=== PATIENT | male | born 1965 | race Hispanic/Latino ===

== ENCOUNTER 2020-03-18 15:10 | Inpatient (IN) | payer MEDICARE, OTHER ==
--- NOTE | 2020-03-18 18:09 | Event Note ---
ED Screening Note ED Screening Note: left calf pain and edema began two weeks ago began having left foot discoloration a week ago last night foot became cold went to [facility] two days ago "pt states told he has a torn muscle" pt states they did not do an Ultrasound hx of DVT x3 last one was 5 years ago Left foot is cold to touch and blue in coloration This initial assessment/diagnostic orders/clinical plan/treatment(s) is/are subject to change based on patients health status, clinical progression and re- assessment by fellow clinical providers in the ED. Further treatment and workup at subsequent clinical providers discretion. Patient/guardian urged not to elope from the ED as their condition may be serious if not clinically assessed and managed. Initial orders include: I personally wheeled pt to MAIN ED room 3 and gave report to DR. Aguero who took over pt
[2020-03-18] MEDS ORDERED: HEPARIN 10,000 UNITS/10 ML VIAL IV ONE (18:18)
[2020-03-18] MEDS ORDERED: ONDANSETRON 4 MG/2 ML INJ IV ONE (18:22)
[2020-03-18] MEDS ORDERED: HYDROmorphone 1 MG/1 ML INJ IV ONE (18:22)
--- NOTE | 2020-03-18 18:27 | Emergency Department Report ---
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 Patient has had left calf pain and foot swelling x1 week without reported trauma. For the past 2 days patient has had discoloration to his left foot and was seen at [facility]. Patient states he was told he had a sprain of the muscle and was prescribed Lortab and told to apply heat and ice. 1:30pm pain acutely worsened and his left calf and foot began to feel cold and turn blue. Pain is 8/10 in intensity - Related Data Allergies Allergy/AdvReac Type Severity Reaction Status Date / Time No Known Allergies Allergy Unverified 03/18/20 15:17 ED Review of Systems ROS: Stated complaint: LEG PAIN Other details as noted in HPI ED Past Medical Hx - Past Medical History Previous Medical History?: Yes Hx Hypertension: Yes Hx CVA: Yes Hx Diabetes: Yes Additional medical history: C Pap at night - Surgical History Past Surgical History?: Yes Hx Open Heart Surgery: Yes - Social History Smoking Status: Never Smoker Substance Use Type: None ED Physical Exam - General Limitations: No Limitations - Other Other exam information: General: No acute distress Head: Atraumatic Eyes: normal appearance ENT: Moist mucous membranes Neck: Normal appearance, no midline tenderness Chest: Clear to auscultation bilaterally CV: Regular rate and rhythm Abdomen: Soft, normal bowel sounds, nontender, nondistended, no rebound or guarding Extremity: Left leg is cold below the knee down to the foot. Bluish discoloration to distal foot and toes. Decreased sensation to palpation to the lower leg and foot. Left leg exam: Patient unable to palpate or auscultate a DP or PT pulse. Patient has minimal movement of his left second through fifth toes and no movement of his great toe. Patient will not dorsi or plantar flex foot secondary to pain. Right foot great toe amputation warm to touch Neuro: Alert O x 3, no facial asymmetry, speech clear, no gross motor sensory deficit Psych: Appropriate behavior Skin: No rash ED Course Vital Signs 03/18/20 03/18/20 03/18/20 15:18 18:03 18:37 Temperature 99.5 F 99.5 F Pulse Rate 121 H 120 H 110 H Respiratory 20 20 Rate Blood Pressure 128/88 128/88 O2 Sat by Pulse 97 93 Oximetry 03/18/20 03/18/20 03/18/20 18:45 18:54 18:59 Temperature Pulse Rate 108 H 104 H Respiratory 28 H 28 H 28 H Rate Blood Pressure 127/91 O2 Sat by Pulse 97 94 97 Oximetry 03/18/20 03/18/20 03/18/20 19:00 19:11 19:21 Temperature Pulse Rate 104 H 98 H 105 H Respiratory 25 H 21 21 Rate Blood Pressure 115/77 127/91 114/79 O2 Sat by Pulse 94 93 96 Oximetry 03/18/20 03/18/20 03/18/20 20:05 20:11 20:21 Temperature Pulse Rate Respiratory Rate Blood Pressure 114/79 114/79 114/79 O2 Sat by Pulse 99 96 93 Oximetry 03/18/20 03/18/20 03/19/20 20:30 20:40 01:26 Temperature 97.6 F Pulse Rate 114 H 99 H Respiratory 29 H 16 Rate Blood Pressure 122/87 117/84 148/98 O2 Sat by Pulse 94 96 100 Oximetry 03/19/20 03/19/20 03/19/20 01:30 01:35 01:40 Temperature Pulse Rate 100 H 98 H 90 Respiratory 19 20 18 Rate Blood Pressure 150/102 131/101 137/93 O2 Sat by Pulse 98 98 97 Oximetry 03/19/20 03/19/20 03/19/20 01:45 01:50 01:55 Temperature Pulse Rate 93 H 94 H 96 H Respiratory 20 19 19 Rate Blood Pressure 139/96 134/94 137/98 O2 Sat by Pulse 97 98 99 Oximetry 03/19/20 03/19/20 03/19/20 02:10 02:15 02:25 Temperature 98.0 F Pulse Rate 95 H 92 H Respiratory 20 20 16 Rate Blood Pressure 145/98 147/89 O2 Sat by Pulse 100 96 Oximetry 03/19/20 03/19/20 03/19/20 02:40 02:50 03:00 Temperature Pulse Rate 90 109 H Respiratory 16 22 Rate Blood Pressure 150/80 166/139 O2 Sat by Pulse 98 95 94 Oximetry 03/19/20 03/19/20 03/19/20 03:10 03:11 03:15 Temperature 98.4 F Pulse Rate 102 H 96 H Respiratory 19 13 19 Rate Blood Pressure 155/107 166/139 O2 Sat by Pulse 96 96 Oximetry 03/19/20 03/19/20 03/19/20 03:21 03:33 03:40 Temperature Pulse Rate 96 H 97 H 94 H Respiratory 23 26 H Rate Blood Pressure 166/139 166/139 160/101 O2 Sat by Pulse 97 96 Oximetry 03/19/20 03/19/20 03/19/20 03:51 04:00 04:11 Temperature Pulse Rate 91 H 89 96 H Respiratory 25 H 24 15 Rate Blood Pressure 137/97 144/96 144/96 O2 Sat by Pulse 97 95 97 Oximetry 03/19/20 03/19/20 03/19/20 04:21 04:30 04:41 Temperature Pulse Rate 92 H 90 90 Respiratory 16 22 21 Rate Blood Pressure 149/106 138/91 138/91 O2 Sat by Pulse 96 95 96 Oximetry 03/19/20 03/19/20 03/19/20 04:51 05:00 05:11 Temperature Pulse Rate 92 H 92 H 87 Respiratory 20 21 23 Rate Blood Pressure 138/91 140/95 140/95 O2 Sat by Pulse 97 97 96 Oximetry 03/19/20 03/19/20 03/19/20 05:21 05:33 05:41 Temperature Pulse Rate 89 88 90 Respiratory 22 22 21 Rate Blood Pressure 144/93 O2 Sat by Pulse 97 97 98 Oximetry 03/19/20 03/19/20 03/19/20 05:51 06:00 06:11 Temperature Pulse Rate 91 H 87 93 H Respiratory 21 22 22 Rate Blood Pressure 137/90 132/89 132/89 O2 Sat by Pulse 98 98 98 Oximetry 03/19/20 03/19/20 03/19/20 06:21 06:30 06:41 Temperature Pulse Rate 94 H 88 96 H Respiratory 20 22 25 H Rate Blood Pressure 137/98 143/90 143/90 O2 Sat by Pulse 98 98 98 Oximetry 03/19/20 03/19/20 03/19/20 06:51 07:00 07:11 Temperature Pulse Rate 92 H 112 H 105 H Respiratory 20 19 18 Rate Blood Pressure 135/86 157/111 157/111 O2 Sat by Pulse 97 98 98 Oximetry 03/19/20 03/19/20 03/19/20 07:21 07:30 07:41 Temperature Pulse Rate 90 89 96 H Respiratory 19 19 16 Rate Blood Pressure 131/88 123/82 123/82 O2 Sat by Pulse 97 98 98 Oximetry 03/19/20 03/19/20 03/19/20 07:51 08:00 08:11 Temperature 98.1 F Pulse Rate 92 H 91 H 96 H Respiratory 20 18 20 Rate Blood Pressure 125/86 122/80 122/80 O2 Sat by Pulse 98 98 98 Oximetry 03/19/20 03/19/20 03/19/20 08:21 08:30 08:34 Temperature Pulse Rate 98 H 99 H Respiratory 15 22 Rate Blood Pressure 137/86 135/93 O2 Sat by Pulse 98 98 98 Oximetry 03/19/20 03/19/20 08:41 08:51 Temperature Pulse Rate 107 H 96 H Respiratory 22 22 Rate Blood Pressure 135/93 138/98 O2 Sat by Pulse 99 99 Oximetry - Consultations Consultation #1: 03/18/20 18:35 case discussed emergently with Dr Foster, Request arterial doppler of leg and heparin drip, I called US tech and he is only credentialed to perform venous studies and is unable to perform arterial Dopplers. Patient will need a CT angiogram. Dr. Foster prefers to wait for creatinine result prior to administering IV contrast. 03/18/20 19:09 Abnormal EKG noted. EKG images reviewed by on-call STEMI doctor Dr. Treviño Although abnormal patient does not have any chest pain. Advises to add CK/CK-MB and troponin to blood work. Informed that patient is on heparin drip for ischemic foot 03/18/20 19:[address] Foster, pt on way to ct at this time 03/18/20 20:[address] angiogram. Official report pending. He Will activate Sonographer to take patient to the Sonographer and then to the OR for probable fasciotomy Case rediscussed with Dr. Treviño regarding elevated troponin level. Patient continues to deny chest pain. No acute intervention recommended at this time. will consult. ED Lower Extremity MDM - Lab Data Result diagrams: 03/20/20 05:12 03/20/20 05:12 Lab Results 03/18/20 03/18/20 03/18/20 Range/Units 18:28 18:28 18:28 WBC 12.3 H (4.5-11.0) K/mm3 RBC 5.01 (3.65-5.03) M/mm3 Hgb 15.2 (11.8-15.2) gm/dl Hct 45.2 (35.5-45.6) % MCV 90 (84-94) fl MCH 30 (28-32) pg MCHC 34 (32-34) % RDW 13.5 (13.2-15.2) % Plt Count 312 (140-440) K/mm3 Lymph % (Auto) 11.0 L (13.4-35.0) % [place] % (Auto) 9.8 H (0.0-7.3) % Eos % (Auto) 0.3 (0.0-4.3) % Baso % (Auto) 0.5 (0.0-1.8) % Lymph # 1.4 (1.2-5.4) K/mm3 [place] # 1.2 H (0.0-0.8) K/mm3 Eos # 0.0 (0.0-0.4) K/mm3 Baso # 0.1 (0.0-0.1) K/mm3 Seg Neutrophils % 78.4 H (40.0-70.0) % Seg Neutrophils # 9.6 H (1.8-7.7) K/mm3 PT 14.1 (12.2-14.9) Sec. INR 1.08 (0.87-1.13) APTT 27.7 (24.2-36.6) Sec. Sodium 132 L (137-145) mmol/L Potassium 5.0 (3.6-5.0) mmol/L Chloride 91.9 L (98-107) mmol/L Carbon Dioxide 20 L (22-30) mmol/L Anion Gap 25 mmol/L BUN 18 (9-20) mg/dL Creatinine 1.4 H (0.8-1.3) mg/dL Estimated GFR 53 ml/min BUN/Creatinine Ratio 13 % Glucose 406 H (75-100) mg/dL Calcium 9.6 (8.4-10.2) mg/dL Total Creatine Kinase 2727 H (55-170) units/L CK-MB (CK-2) 135.9 H (0.0-4.0) ng/mL Troponin T 5.110 H* (0.00-0.029) ng/mL Blood Type 03/18/20 Range/Units 18:28 WBC (4.5-11.0) K/mm3 RBC (3.65-5.03) M/mm3 Hgb (11.8-15.2) gm/dl Hct (35.5-45.6) % MCV (84-94) fl MCH (28-32) pg MCHC (32-34) % RDW (13.2-15.2) % Plt Count (140-440) K/mm3 Lymph % (Auto) (13.4-35.0) % [place] % (Auto) (0.0-7.3) % Eos % (Auto) (0.0-4.3) % Baso % (Auto) (0.0-1.8) % Lymph # (1.2-5.4) K/mm3 [place] # (0.0-0.8) K/mm3 Eos # (0.0-0.4) K/mm3 Baso # (0.0-0.1) K/mm3 Seg Neutrophils % (40.0-70.0) % Seg Neutrophils # (1.8-7.7) K/mm3 PT (12.2-14.9) Sec. INR (0.87-1.13) APTT (24.2-36.6) Sec. Sodium (137-145) mmol/L Potassium (3.6-5.0) mmol/L Chloride (98-107) mmol/L Carbon Dioxide (22-30) mmol/L Anion Gap mmol/L BUN (9-20) mg/dL Creatinine (0.8-1.3) mg/dL Estimated GFR ml/min BUN/Creatinine Ratio % Glucose (75-100) mg/dL Calcium (8.4-10.2) mg/dL Total Creatine Kinase (55-170) units/L CK-MB (CK-2) (0.0-4.0) ng/mL Troponin T (0.00-0.029) ng/mL Blood Type B POSITIVE - EKG Data -: EKG Interpreted by Me EKG shows normal: sinus rhythm, ST-T waves (inf and lat st elevations(mild without reciprical changes)) - EKG Data When compared to previous EKG there are: previous EKG unavailable - Radiology Data Radiology results: report reviewed CTA ABDOMEN, PELVIS, AND LOWER EXTREMITIES INDICATION / CLINICAL INFORMATION: blue, cold left calf and foot. TECHNIQUE: Axial CT images were obtained through the abdomen, pelvis and lower extremities after injection of IV 50 cc Omnipaque 350 milligrams percent IV contrast. 3 plane MIP / 3D reconstructions were produced. All CT scans at this location are performed using CT dose reduction for ALARA by means of automated exposure control. COMPARISON: None available. FINDINGS: CTA ABDOMEN: Abdominal Aorta: Diffuse atherosclerotic calcified plaques present Celiac Artery: Not included in the imaging set Superior Mesenteric Artery: No significant abnormality. Right Renal Artery: No significant abnormality. Left Renal Artery: No significant abnormality. Inferior Mesenteric Artery: No significant abnormality. CTA PELVIS: RIGHT: - Common Iliac Artery: Extensive calcified atherosclerotic plaque - Internal Iliac Artery: Mild calcified atherosclerotic plaque. - External Iliac Artery: Atherosclerotic plaque with occlusion. LEFT: - Common Iliac Artery: Moderate calcified atherosclerotic plaque - Internal Iliac Artery: Moderate calcified atherosclerotic plaque. - External Iliac Artery: Extensive calcified atherosclerotic plaque. CTA LOWER EXTREMITIES: RIGHT LOWER EXTREMITY: - Common Femoral Artery: Atherosclerotic calcified plaque without evidence of significant narrowing - Superficial Femoral Artery: Atherosclerotic calcified plaque multiple stenotic regions of mild severity - Profunda Femoral Artery: Atherosclerotic calcified plaque without evidence of stenosis - Popliteal Artery: Atherosclerotic calcified plaque with minimum stenosis - Anterior Tibial Artery: No significant abnormality. - Tibioperoneal Trunk: No significant abnormality. - Posterior Tibial Artery: No significant abnormality. - Peroneal Artery: Very small vessel without visualization at the level of the ankle - A nkle runoff: 2 vessel. LEFT LOWER EXTREMITY: - Common Femoral Artery: No significant abnormality. - Superficial Femoral Artery: Occlusion of the superficial femoral artery at its origin collateral flow is noted at the level of Ean's canal with multiple calcified plaques - Profunda Femoral Artery: No significant abnormality. - Popliteal Artery: Patent but small - Anterior Tibial Artery: Poorly visualized - Tibioperoneal Trunk: Poorly visualized. - Posterior Tibial Artery: Poorly visualized - Peroneal Artery: Poorly visualized. - Ankle runoff: Cannot be determined secondary to lack of contrast NONTARGET STRUCTURES: ABDOMEN:No significant abnormality. PELVIS:No significant abnormality. LOWER EXTREMITIES:No significant abnormality. SKELETAL: No significant abnormality. ADDITIONAL FINDINGS: None. IMPRESSION: 1. Occlusion of the left superficial femoral artery which appears to be subacute to chronic 2. Extensive calcified atherosclerotic plaque aortic iliac 3. Dense calcified plaque in for inguinal arterial system on the right with 2 vessel runoff at the level right ankle. 4. Inability to visualize distal runoff [id number] left lower extremity - Medical Decision Making Patient presents to the hospital with ischemic foot. CT angiogram confirms arterial occlusion. Patient was started on a heparin drip after MD evaluation and provided Dilaudid, Zofran, insulin, and normal saline in the ED. Patient has elevation in CK, CK-MB, and troponin with abnormal EKG but denies chest pain. Case discussed with sales apprentice. No acute intervention recommended at this time. Patient to go emergently to the Sonographer for revascularization procedure with possible fasciotomy to performed in OR. Repeat Trop/ckmb levels ordered. Case discussed with hospitalist Dr. Sifuentes who requests admission orders to be placed under Dr Kirkpatrick/qyuen hospitalist. Critical Care Time: Yes Critical care time in (mins) excluding proc time.: 35 Critical care attestation.: If time is entered above; I have spent that time in minutes in the direct care of this critically ill patient, excluding procedure time. ED Disposition Clinical Impression: Arterial occlusion, lower extremity, Ischemic pain of left foot, Hx of two vessel coronary artery bypass graft, Elevated troponin, Elevated CK, Hyperglycemia due to diabetes mellitus, Smoker Disposition: [id number] OP ADMIT IP TO THIS HOSP Is pt being admited?: Yes Condition: Stable Time of Disposition: 20:22 (GBenle/hosp)
[2020-03-18 18:48] LABS: Basophils # (Auto) 0.1 K/mm3 (0.0-0.1); Basophils % (Auto) 0.5 % (0.0-1.8); Eosinophils % (Auto) 0.3 % (0.0-4.3); Hematocrit 45.2 % (35.5-45.6); Hemoglobin 15.2 gm/dl (11.8-15.2); Lymphocytes # (Auto) 1.4 K/mm3 (1.2-5.4); Mean Corpuscular HGB Conc 34 % (32-34); Mean Corpuscular Volume 90 fl (84-94); Monocytes # (Auto) 1.2 K/mm3 (0.0-0.8); Monocytes % (Auto) 9.8 % (0.0-7.3); Platelet Count 312 K/mm3 (140-440); Red Blood Count 5.01 M/mm3 (3.65-5.03); Red Cell Distribution Width 13.5 % (13.2-15.2)
[2020-03-18] MEDS: HEPARIN/ 0.45% NACL DRIP 25,000 UNIT/500 ML BAG IV SCH (18:53)
[2020-03-18 18:58] LABS: INR 1.08 (0.87-1.13)
[2020-03-18 18:59] LABS: Partial Thromboplastin Time 27.7 Sec. (24.2-36.6)
[2020-03-18 19:13] LABS: Calcium 9.6 mg/dL (8.4-10.2)
[2020-03-18] MEDS ORDERED: SODIUM CHLORIDE 0.9% 1000 ML 1,000 ML IV ONE ×2 (19:16→19:49)
[2020-03-18 19:38] LABS: Creatine Kinase MB 135.9 ng/mL (0.0-4.0)
--- NOTE | 2020-03-18 19:39 | Event Note ---
Date: 03/18/20 Late entry: Contacted about 54 year old male with ischemic left lower extremity. Told patient has pain with decreased motor and sensory function with ice-cold leg. Agree with heparin drip. Arterial doppler unavailable. Cr 1.4. Discussed bolus with 1L NS and CTA with runoff for evaluation of left lower extremity.
[2020-03-18] MEDS ORDERED: INSULIN REGULAR, HUMAN 100 UNIT/ML 3ML VIAL IV ONE (19:42)
[2020-03-18 20:27] LABS: Chol/HDL Ratio 4.23 %
[2020-03-18] MEDS ORDERED: HEPARIN/NS 5000 UNIT/500ML 1,500 ML IR ONE (20:52)
[2020-03-18] MEDS ORDERED: LIDOCAINE 1%/EPINEPHRINE 1:100,000 VIAL (20 ML) INFILTRATI ONE (20:53)
[2020-03-18] MEDS ORDERED: SODIUM CHLORIDE 0.9% 500 ML 500 ML ONE (20:53)
[2020-03-18] MEDS ORDERED: ceFAZolin/Water 2 GM/20 ML 2 GM/20 ML SYRINGE IV ONE (20:58)
--- NOTE | 2020-03-18 21:00 | Cat Scan Report ---
CTA ABDOMEN, PELVIS, AND LOWER EXTREMITIES INDICATION / CLINICAL INFORMATION: blue, cold left calf and foot. TECHNIQUE: Axial CT images were obtained through the abdomen, pelvis and lower extremities after injection of IV 50 cc Omnipaque 350 milligrams percent IV contrast. 3 plane MIP / 3D reconstructions were produced. All CT scans at this location are performed using CT dose reduction for ALARA by means of automated e xposure control. COMPARISON: None available. FINDINGS: CTA ABDOMEN: Abdominal Aorta: Diffuse atherosclerotic calcified plaques present Celiac Artery: Not included in the imaging set Superior Mesenteric Artery: No significant abnormality. Right Renal Artery: No significant abnormality. Left Renal Artery: No significant abnormality. Inferior Mesenteric Artery: No significant abnormality. CTA PELVIS: RIGHT: - Common Iliac Artery: Extensive calcified atherosclerotic plaque - Internal Iliac Artery: Mild calcified atherosclerotic plaque. - External Iliac Artery: Atherosclerotic plaque with occlusion. LEFT: - Common Iliac Artery: Moderate calcified atherosclerotic plaque - Internal Iliac Artery: Moderate calcified atherosclerotic plaque. - External Iliac Artery: Extensive calcified atherosclerotic plaque. CTA LOWER EXTREMITIES: RIGHT LOWER EXTREMITY: - Common Femoral Artery: Atherosclerotic calcified plaque without evidence of significant narrowing - Superficial Femoral Artery: Atherosclerotic calcified plaque multiple stenotic regions of mild monroe rity - Profunda Femoral Artery: Atherosclerotic calcified plaque without evidence of stenosis - Popliteal Artery: Atherosclerotic calcified plaque with minimum stenosis - Anterior Tibial Artery: No significant abnormality. - Tibioperoneal Trunk: No significant abnormality. - Posterior Tibial Artery: No significant abnormality. - Peroneal Artery: Very small vessel without visualization at the level of the ankle - Ankle runoff: 2 vessel. LEFT LOWER EXTREMITY: - Common Femoral Artery: No significant abnormality. - Superficial Femoral Artery: Occlusion of the superficial femoral artery at its origin collateral fl ow is noted at the level of Ean's canal with multiple calcified plaques - Profunda Femoral Artery: No significant abnormality. - Popliteal Artery: Patent but small - Anterior Tibial Artery: Poorly visualized - Tibioperoneal Trunk: Poorly visualized. - Posterior Tibial Artery: Poorly visualized - Peroneal Artery: Poorly visualized. - Ankle runoff: Cannot be determined secondary to lack of contrast NONTARGET STRUCTURES: ABDOMEN:No significant abnormality. PELVIS:No significant abnormality. LOWER EXTREMITIES:No significant abnormality. SKELETAL: No significant abnormality. ADDITIONAL FINDINGS: None. IMPRESSION: 1. Occlusion of the left superficial femoral artery which appears to be subacute to chronic 2. Extensive calcified atherosclerotic plaque aortic iliac 3. Dense calcified plaque in for inguinal arterial system on the right with 2 vessel runoff at the le cassie right ankle. 4. Inability to visualize distal runoff [id number] left lower extremity Signer Name: Billy Huston MD Signed: 03/18/2020 8:56 PM Workstation Name: [id number]
--- NOTE | 2020-03-18 21:08 | Consultation ---
History of Present Illness - Reason for Consult Consult date: 03/18/20 Left lower extremity ischemia Requesting physician: JEAN CLAUDE COLLINS - History of Present Illness 54-year-old male with past medical history of previous CVA without residual deficits, hypertension, diabetes (on insulin and pills), amputation of right great toe status post infection, current smoker, CABG x 2 (currently on aspirin 81 mg and Plavix), and previous history of PE and DVT 6-7 years ago not currently anticoagulation (no filter placement) presents to the hospital with complaints of left calf and foot pain x1 week. Patient has had left calf pain and foot swelling x1 week without reported trauma. For the past 2 days patient has had discoloration to his left foot and was seen at [facility]. Patient states he was told he had a sprain of the muscle and was prescribed Lortab and told to apply heat and ice. Since he woke up (1 pm) from last night, pain acutely worsened and his left calf and foot began to feel cold and turn blue. His leg is cool from the knee down and cold and mottled from the lower calf down. He has an insensate foot from the midfoot down with no ability to move the toes. This has been present since he woke up. Last time he had function in his foot was last night. Past History Past Medical History: CAD, COPD, diabetes, hypertension, hyperlipidemia Past Surgical History: CABG Social history: smoking Family history: no significant family history Medications and Allergies Allergies Allergy/AdvReac Type Severity Reaction Status Date / Time No Known Allergies Allergy Unverified 03/18/20 15:17 Active Meds: Active Medications Heparin Sodium/Sodium Chloride (Heparin/ 0.45% Nacl-25,000 Unit/500 Ml) 25,000 unit in 500 mls @ 30 mls/hr IV TITR LOI; Protocol Last Admin: 03/18/20 18:53 Dose: 1,500 units/hr, 30 mls/hr Documented by: Sodium Chloride (Nacl 0.9% 1000 Ml) 1,000 mls @ 150 mls/hr IV DIRECT LOI Insulin Human Regular (Humulin R) 0 unit IV ONCE.ED ONE; Protocol Stop: 03/19/20 19:43 Review of Systems All systems: negative (see HPI) Exam - Constitutional Vitals: Temp Pulse Resp BP Pulse Ox 99.5 F 108 H 28 H 127/91 97 03/18/20 18:03 03/18/20 18:45 03/18/20 18:59 03/18/20 18:45 03/18/20 18:59 General appearance: Present: no acute distress - EENT Eyes: Present: EOM intact ENT: hearing intact - Respiratory Respiratory effort: normal - Extremities Extremities: abnormal (nonpalpable pedal pulses, right 1st digit amputation, left foot described in HPI) - Psychiatric Psychiatric: appropriate mood/affect, cooperative Results - Labs CBC & Chem 7: 03/18/20 18:28 03/18/20 18:28 Labs: Abnormal lab results 03/18/20 03/18/20 Range/Units 18:28 18:28 WBC 12.3 H (4.5-11.0) K/mm3 Lymph % (Auto) 11.0 L (13.4-35.0) % [place] % (Auto) 9.8 H (0.0-7.3) % [place] # 1.2 H (0.0-0.8) K/mm3 Seg Neutrophils % 78.4 H (40.0-70.0) % Seg Neutrophils # 9.6 H (1.8-7.7) K/mm3 Sodium 132 L (137-145) mmol/L Chloride 91.9 L (98-107) mmol/L Carbon Dioxide 20 L (22-30) mmol/L Creatinine 1.4 H (0.8-1.3) mg/dL Glucose 406 H (75-100) mg/dL Total Creatine Kinase 2727 H (55-170) units/L CK-MB (CK-2) 135.9 H (0.0-4.0) ng/mL Troponin T 5.110 H* (0.00-0.029) ng/mL Triglycerides 188 H (2-149) mg/dL LDL Cholesterol Direct 141 H (50-130) mg/dL - Imaging and Cardiology CT scan - abdomen: report reviewed, image reviewed CT scan - pelvis: report reviewed, image reviewed Assessment and Plan 54 year old male with multiple medical issues including multiple venous thrombotic events, active smoking, and elevated troponins who presents with isch emic left lower extremity. The left lower extremity is quite ischemic with coolness from the knee down and coldness from the lower calf down. The lower calf and foot are mottled. The foot has no motor function and sensory function only of the hindfoot. This has been present since the patient woke up and the last time the patient has function of his foot was last night, aprox 18-24 hrs ago. Patient has occlusion of the popliteal artery and all runoff vessels and proximal to mid SFA. Discussed with the patient that this is likely unsalvagable. Discussed that I expect, at best, we may be able to salvage a BKA. Discussed that we will attempt mechanical thrombectomy and afterwards patient will need fasciotomies. R/B/A discussed. Patient has elevated troponin, and will attempt to perform the revascularization portion of the procedure endovascularly to limit OR time for fasciotomies.
[2020-03-18] MEDS: SODIUM CHLORIDE 0.9% 1000 ML 1,000 ML IV SCH (21:20)
[2020-03-18] MEDS: MIDAZOLAM 2 MG/2 ML INJ ONE ×4 (21:29→22:31)
[2020-03-18] MEDS: fentaNYL 100 MCG/2 ML INJ ONE ×4 (21:29→22:31)
[2020-03-18 21:39] LABS: Creatine Kinase MB 107.2 ng/mL (0.0-4.0)
[2020-03-18] MEDS: HEPARIN 10,000 UNITS/10 ML VIAL ONE ×5 (21:50→23:51)
[2020-03-18] MEDS ORDERED: WATER FOR INJ Sterile (PF) 10 ML ONE ×3 (21:54→23:49)
[2020-03-18] MEDS ORDERED: ALTEPLASE 2 MG INJ ONE ×4 (21:54→23:48)
[2020-03-18] MEDS ORDERED: SODIUM CHLORIDE 0.9% 50 ML ONE (22:00)
[2020-03-18] MEDS ORDERED: DEXTROSE 50% IN WATER (25GM) 50 ML SYRINGE IV PRN (22:21)
[2020-03-18] MEDS ORDERED: MAGNESIUM HYDROXIDE (MOM) ORAL LIQD UDC PO PRN (22:21)
[2020-03-18] MEDS ORDERED: SODIUM CHLORIDE 0.9% 1000 ML 1,000 ML IV SCH (22:30)
--- NOTE | 2020-03-18 22:35 | History and Physical Report ---
History of Present Illness Date of examination: 03/18/20 Date of admission: 03/18/20 20:23 Chief complaint: Left foot discoloration. History of present illness: 54-year-old male with known history of CVA without any residual deficits, hypertension ,diabetes mellitus, coronary artery disease with CABG x2, pulmonary embolism and DVT presented to the emergency room today with a complaint of left foot pain and discoloration for about a week. Patient denies any fall and denies any trauma to the foot. Discoloration over the left foot has gotten worse over the past 2 days. He was seen at [facility] and was informed that he had a sprain muscle and prescribed with pain medication namely Lortab and encouraged to apply heat and ice. It has this afternoon left foot was said to have gotten cold and turning blue. He has also had increasing pain on the left foot. Patient denies any fever or chills, denies any chest pain or shortness of breath, no nausea vomiting and no diarrhea. Patient is a current daily smoker. Vascular surgery was consulted upon arrival in the emergency room today patient was subsequently taken to the [facility]. Patient is currently status post endovascular revascularization. Past History Past Medical History: CAD, COPD, diabetes, hypertension, hyperlipidemia Past Surgical History: CABG Social history: smoking (Current every day smoker) Family history: no significant family history Medications and Allergies Allergies Allergy/AdvReac Type Severity Reaction Status Date / Time No Known Allergies Allergy Unverified 03/18/20 15:17 Active Meds: Active Medications Dextrose (D50w (25gm) Syringe) 50 ml IV Q30MIN PRN; Protocol PRN Reason: Hypoglycemia Heparin Sodium/Sodium Chloride (Heparin/ 0.45% Nacl-25,000 Unit/500 Ml) 25,000 unit in 500 mls @ 30 mls/hr IV TITR LOI; Protocol Last Admin: 03/18/20 18:53 Dose: 1,500 units/hr, 30 mls/hr Documented by: Sodium Chloride (Nacl 0.9% 1000 Ml) 1,000 mls @ 150 mls/hr IV DIRECT LOI Last Admin: 03/18/20 21:20 Dose: 100 mls Documented by: Sodium Chloride (Nacl 0.9% 1000 Ml) 1,000 mls @ 125 mls/hr IV DIRECT LOI Insulin Human Lispro (Humalog) 0 unit SUB-Q ACHS LOI; Protocol Magnesium Hydroxide (Milk Of Magnesia) 30 ml PO Q4H PRN PRN Reason: Constipation Morphine Sulfate (Morphine) 2 mg IV Q4H PRN PRN Reason: Pain, Moderate (4-6) Ondansetron HCl (Zofran) 4 mg IV Q8H PRN PRN Reason: Nausea And Vomiting Sodium Chloride (Sodium Chloride Flush Syringe 10 Ml) 10 ml IV BID LOI Sodium Chloride (Sodium Chloride Flush Syringe 10 Ml) 10 ml IV PRN PRN PRN Reason: LINE FLUSH Review of Systems Constitutional: no fever, no chills Ears, nose, mouth and throat: no nasal congestion, no sore throat Cardiovascular: no chest pain, no palpitations Respiratory: no cough, no shortness of breath Gastrointestinal: no abdominal pain, no nausea, no vomiting, no diarrhea Genitourinary Male: no dysuria, no hematuria, no flank pain Musculoskeletal: no neck pain, no low back pain Integumentary: color changes (Over left foot), no rash, no pruritis Neurological: no headaches, no confusion Exam - Constitutional Vitals: Temp Pulse Resp BP Pulse Ox 99.5 F 108 H 28 H 127/91 97 03/18/20 18:03 03/18/20 18:45 03/18/20 18:59 03/18/20 18:45 03/18/20 18:59 General appearance: Present: no acute distress, well-nourished - EENT Eyes: Present: PERRL, EOM intact. Absent: scleral icterus ENT: hearing intact, clear oral mucosa, dentition normal - Neck Neck: Present: supple, normal ROM - Respiratory Respiratory effort: normal Respiratory: bilateral: CTA - Cardiovascular Rhythm: regular Heart Sounds: Present: S1 & S2. Absent: gallop, systolic murmur, diastolic murmur, rub - Extremities Extremities: No edema, Full ROM Extremity abnormal: cold (Left foot cold), pulses diminished (Diminished pulses on left foot), tenderness (Mild tenderness over left foot), other (Amputation of the right great toe) Peripheral Pulses: within normal limits - Abdominal General gastrointestinal: Present: soft, non-tender, non-distended, normal bowel sounds - Integumentary Integumentary: Present: clear, warm, dry. Absent: rash - Musculoskeletal Musculoskeletal: strength equal bilaterally - Psychiatric Psychiatric: appropriate mood/affect, intact judgment & insight, memory intact, cooperative - Neurologic Neurologic: CNII-XII intact, no focal deficits, moves all extremities HEART Score - HEART Score Troponin: Troponin T 3.960 ng/mL (0.00-0.029) H* D 03/18/20 20:56 Results - Labs CBC & Chem 7: 03/18/20 18:28 03/18/20 18:28 Labs: Abnormal lab results 03/18/20 03/18/20 03/18/20 Range/Units 18:28 18:28 20:56 WBC 12.3 H (4.5-11.0) K/mm3 Lymph % (Auto) 11.0 L (13.4-35.0) % [place] % (Auto) 9.8 H (0.0-7.3) % [place] # 1.2 H (0.0-0.8) K/mm3 Seg Neutrophils % 78.4 H (40.0-70.0) % Seg Neutrophils # 9.6 H (1.8-7.7) K/mm3 Sodium 132 L (137-145) mmol/L Chloride 91.9 L (98-107) mmol/L Carbon Dioxide 20 L (22-30) mmol/L Creatinine 1.4 H (0.8-1.3) mg/dL Glucose 406 H (75-100) mg/dL Total Creatine Kinase 2727 H 2492 H (55-170) units/L CK-MB (CK-2) 135.9 H 107.2 H (0.0-4.0) ng/mL CK-MB (CK-2) Rel Index 4.3 H (0-4) Troponin T 5.110 H* 3.960 H* D (0.00-0.029) ng/mL Triglycerides 188 H (2-149) mg/dL LDL Cholesterol Direct 141 H (50-130) mg/dL Assessment and Plan - Patient Problems (1) Arterial occlusion, lower extremity Current Visit: Yes Status: Acute Plan to address problem: Patient is status post endovascular revascularization. Vascular surgery following. (2) Elevated troponin Current Visit: Yes Status: Acute Plan to address problem: We will monitor serial cardiac enzymes and EKG. Patient denies any chest pain. However consult has been placed to cardiology for evaluation and recommendation. (3) Hyperglycemia due to diabetes mellitus Current Visit: Yes Status: Acute Plan to address problem: Patient placed on sliding scale insulin. Will monitor Accu-Chek. (4) Smoker Current Visit: Yes Status: Acute Plan to address problem: Patient counseled on quitting tobacco abuse. Will offer nicotine patch as needed. (5) DVT prophylaxis Current Visit: Yes Status: Acute Plan to address problem: Patient currently on anticoagulation. (6) Full code status Current Visit: Yes Status: Acute
[2020-03-18] MEDS ORDERED: fentaNYL 100 MCG/2 ML INJ ONE (22:46)
[2020-03-18] MEDS ORDERED: MIDAZOLAM 2 MG/2 ML INJ ONE (22:46)
[2020-03-18] MEDS ORDERED: HEPARIN/NS 5000 UNIT/500ML 500 ML IR ONE (22:55)
--- NOTE | 2020-03-19 00:17 | Anesthesia Consultation ---
Anesthesia Consult and Med Hx Date of service: 03/19/20 - Airway Anesthetic Teeth Evaluation: Poor ROM Head & Neck: Adequate Mental/Hyoid Distance: Inadequate Mallampati Class: Class II Intubation Access Assessment: Probably Good - Pulmonary Exam CTA: Yes - Pre-Operative Health Status ASA Pre-Surgery Classification: ASA4, Emergency Proposed Anesthetic Plan: General - Pulmonary Hx Smoking: Yes COPD: Yes Hx Sleep Apnea: Yes (Uses CPAP machine) - Cardiovascular System Hx Hypertension: Yes Hx Coronary Artery Disease: Yes (S/P CABG in 2014) - Endocrine Hx Renal Disease: No Hx Liver Disease: No Hx Insulin Dependent Diabetes: Yes Hx Thyroid Disease: No - Hematic Hx Anemia: No - Other Systems Hx Alcohol Use: No Hx Obesity: Yes - Additional Comments Anesthesia Medical History Comments: Patient denied previous anesthesia complications.
--- NOTE | 2020-03-19 00:22 | Post Operative Note ---
Date of procedure: 03/19/20 Pre-op diagnosis: Ischemia of the LLE Post-op diagnosis: same Procedure: 1. Ultrasound guided access of the right common femoral artery 2. Angiography of the right lower extremity 3. Selection of the abdominal aorta, left external iliac artery, left popliteal artery and left anterior tibial artery with angiography 4. Infusion of 6 mg of tPA in the left anterior tibial artery 5. Deployment of a 7 mm spider EPD in the left popliteal artery 6. Pulse spray of 10 mg of tPA in the left superficial femoral artery and Angiojet mechanical thrombectomy 7. Stenting of the left proximal to mid superficial femoral artery with a 7 mm x 100 mm Everflex stent and angioplasty with a 6 mm x 150 mm iNPACT balloon 8. CAT-6 aspiration thrombectomy of the left superficial femoral artery and 7 mm spider EPD with removal 9. CAT-6 aspiration thrombectomy of the left popliteal artery 10. CAT-6 aspiration thrombectomy of the left anterior tibial artery, tibioperoneal trunk, posterior tibial artery and peroneal artery 11. CAT-5Rx aspiration thrombectomy of the left dorsalis pedis artery 12. Infusion of 6 mg of tPA in the left dorsalis pedis artery 13. Closure of the right common femoral artery with a 6 Fr proglide Anesthesia: local Surgeon: DAYANA ROGEL Estimated blood loss: other (400 mL EBL from aspiration thrombectomy and angiojet) Condition: stable Disposition: other (to OR for fasciotomy)
--- NOTE | 2020-03-19 00:32 | Anesthesia Day of Surgery ---
Anesthesia Day of Surgery - Day of Surgery Patient Examined: Yes Patient H&P Reviewed: Yes Patient is NPO: Yes
--- NOTE | 2020-03-19 00:39 | Operative Report ---
Operative Report Operative Report: EXAM: 1. Ultrasound guided access of the right common femoral artery 2. Angiography of the right lower extremity 3. Selection of the abdominal aorta, left external iliac artery, left popliteal artery and left anterior tibial artery with angiography 4. Infusion of 6 mg of tPA in the left anterior tibial artery 5. Deployment of a 7 mm spider EPD in the left popliteal artery 6. Pulse spray of 10 mg of tPA in the left superficial femoral artery and Angiojet mechanical thrombectomy 7. Stenting of the left proximal to mid superficial femoral artery with a 7 mm x 100 mm Everflex stent and angioplasty with a 6 mm x 150 mm iNPACT balloon 8. CAT-6 aspiration thrombectomy of the left superficial femoral artery and 7 mm spider EPD with removal 9. CAT-6 aspiration thrombectomy of the left popliteal artery 10. CAT-6 aspiration thrombectomy of the left anterior tibial artery, tibioperoneal trunk, posterior tibial artery and peroneal artery 11. CAT-5Rx aspiration thrombectomy of the left dorsalis pedis artery 12. Infusion of 6 mg of tPA in the left dorsalis pedis artery 13. Closure of the right common femoral artery with a 6 Fr proglide DATE: 03/18/2020 BARIATRIC PROGRAM COORDINATOR: DAYANA ROGEL MD INDICATION: Acute limb ischemia of the left lower extremity with unsalvageable left foot but possibly salvageable below-knee amputation. MEDICATIONS: Please see nursing report for full details. DEVICES: Please see above CONTRAST: 58 mL's of nonionic contrast PROCEDURE: The risks, benefits, and alternatives were discussed with the patient; written informed consent was obtained. The patient was brought to the angiography suite urgently and the groins were prepped and draped in sterile fashion. The right common femoral artery was evaluated with ultrasound and was patent. Under direct ultrasound guidance, the right common femoral artery was accessed with a 21-gauge micropuncture needle. 0.018 inch wire was passed into the aorta. Needle was exchanged for transitional dilator. Wire was exchanged for a 0.035 inch wire. Transitional dilator was exchanged for a 5 [place] sheath. Digital subtraction angiography was performed demonstrating patency of the right common femoral artery, proximal superficial femoral artery, and profunda femoral artery. The puncture was appropriate, above the bifurcation and below the inferior epigastric artery. CT angiogram was reviewed prior to the procedure and therefore decision was made to perform angiography of the left lower extremity to limit contrast exposure. The abdominal aorta was selected, and the left external iliac artery was selected. Digital subtraction angiography was performed demonstrating patency of the left external iliac artery, common femoral artery, profundofemoral artery, with occlusion of the left proximal superficial femoral artery to the mid superficial femoral artery. The distal superficial femoral artery had a focal 50% narrowing but was otherwise patent. The [id number] popliteal artery was patent. The below the knee popliteal artery and mid popliteal artery was occluded and there was no runoff. The patient was further heparinized. Sheath was exchanged for a 7 [place] 45 cm [place] destination positioned in the left common femoral artery. Wire and catheter used to cannulate the left superficial femoral artery and the catheter was passed into the mid and subsequently distal superficial femoral artery without difficulty suggesting acute thrombus. Digital subtraction angiography was performed, but there is still no runoff. The left below the knee popliteal artery was selected and then the anterior tibial artery was selected. Digital subtraction angiography was performed demonstrating again no runoff with complete thrombosis of the anterior tibial artery. 6 mg of TPA was infused through the left anterior tibial artery. 7 mm spider embolic protection device was deployed in the left distal superficial femoral artery. 10 mg of TPA was pulse spray infused in the left proximal to mid superficial femoral artery with a 15-minute dwell time. AngioJet thrombectomy was then performed. Digital subtraction angiography demonstrated large residual thrombus in the proximal superficial femoral artery with resolution of the rest of the thrombus. 7 mm x 10 cm ever flex stent was then deployed over the proximal left superficial femoral artery. This was postdilated with a 6 mm x 150 mm iNPACT balloon. Digital subtraction angiography was performed demonstrating sluggish flow which I suspected was due to embolization into the basket. This was confirmed with digital subtraction angiography demonstrating occlusion at the level of the embolic protection of ice. CAT 6 aspiration thrombectomy device was advanced over the wire and used to perform aspiration thrombectomy over the wire and to the level of the basket. This was then used to retrieve the basket. Digital subtraction angiography was repeated demonstrating sluggish flow in the superficial femoral artery which was further evaluated demonstrating the reason for the sluggish flow due to the lack of runoff without any focal narrowing of the proximal mid and distal superficial femoral artery. The [id number] popliteal artery was patent. The mid to distal popliteal artery was occluded. CAT 6 aspiration thrombectomy device was used to perform aspiration thrombectomy of the below the knee popliteal artery multiple times, as well as the anterior tibial artery multiple times. This was also used to perform aspiration thrombectomy in the posterior tibial artery and the peroneal artery. Large amounts of thrombus were removed. Digital subtraction angiography was performed intermittently demonstrating improvement of flow with resolution of all thrombus in the popliteal artery, and all thrombus within the proximal mid and distal anterior tibial artery. There is still thrombus within the dorsalis pedis artery. The tibioperoneal trunk was partially debulked with thrombus and was now partially patent. The peroneal and posterior tibial arteries intermittently filled through collaterals. The CT angiogram previously performed demonstrated occlusion of the peroneal and posterior tibial arteries on the right side which I suspected was also present on the left side. CAT 5RX aspiration thrombectomy device was then used to perform aspiration thrombectomy in the left dorsalis pedis artery. Digital subtraction angiography was performed demonstrating no residual thrombus in the left anterior tibial artery and dorsalis pedis artery, but there was minimal outflow into the foot. 6 mg of TPA was injected at this time to help with the small vessels in the foot. At this time, I believe all that could be done has been done and has a initially suspected, the foot has no significant outflow due to longstanding occlusion. At this point, there is now patency of the left superficial femoral artery, and mid femoral artery with a focal 50% narrowing of the distal femoral artery with patency of the [id number] mid and below the knee popliteal artery and patency of the anterior tibial artery to the level of the dorsalis pedis artery, but there is minimal outflow into the foot. There is also now intermittent filling of the collaterals to the peroneal and posterior tibial artery. At this point, I believe that the patient could benefit from fasciotomy as the anterior compartment was becoming slightly tense and I did not believe that further intervention would provide the patient with benefit. All wires catheters and sheaths were retracted to the right external iliac artery and the site was closed using a 6 Tunisian pro glide achieving immediate hemostasis. Sterile dressing applied. Pressure dressing applied. Patient was immediately transferred to the operating room for fasciotomies. FINDINGS: Please see procedure note above IMPRESSION: Successful thrombectomy, angioplasty and stenting, of the left lower extremity as described above.
[2020-03-19] MEDS ORDERED: LIDOCAINE MPF (2%) 20 MG/1 ML VIAL 5 ML ONE (00:43)
[2020-03-19] MEDS ORDERED: ONDANSETRON 4 MG/2 ML INJ ONE ×2 (00:43→01:17)
[2020-03-19] MEDS ORDERED: propofoL 200 MG/20 ML VIAL IV ONE (00:43)
[2020-03-19] MEDS ORDERED: SODIUM CHLORIDE 0.9% IRR 1,500 ML BOTTLE IR ONE (01:07)
[2020-03-19] MEDS ORDERED: PHENYLEPHRINE/NS 1,000 MCG/10 ML SYRINGE (OR USE) IV ONE (01:16)
--- NOTE | 2020-03-19 01:34 | Operative Report ---
Operative Report Operative Report: Date of Procedure: 03/19/2020 Pre-operative Diagnosis: Acute Left Lower Extremity Ischemia Status Post Endovascular Revascularization Post-operative Diagnosis: Same Procedure(s): 1. Left Lower Extremity 4 Compartment Fasciotomy Surgeon: Morris Mckenzie M.D. Wrapping Machine Tender: Brett Anesthesia: General Endotracheal Anesthesia EBL: Minimal Counts: Correct Complications: None Condition: Stable Findings: All muscle appeared viable without evidence of sagar necrotic muscle or soft tissue. The proximal muscle reacted to manipulation with the cautery however the distal muscle in both the anterior and lateral compartments did not react to manipulation with cautery. Specimen: None Indication: The patient is a 54-year-old male with a history of multiple medical problems including coronary artery disease, CVA, tobacco abuse, and peripheral arterial disease who presented to an outside hospital with complaints of left foot pain however he was discharged with a diagnosis of a sprained ankle. He presented to this hospital with greater than 8 hours of left foot pain with an insensate left foot with no motor function. CTA demonstrated acute thrombus within the left SFA and popliteal artery. He was set up for a endovascular revascularization with the plan for 4 compartment fasciotomy after revascularization. He and his son were given the risk, benefits, and alternative procedures and consented to the procedure. Description of Procedure: The patient was brought to the operating room and laid in supine position. After a timeout was performed his left leg was prepped and draped in normal sterile fashion. A longitudinal incision was created on the medial aspect of the calf extending from just proximal to the medial malleolus to just distal to the patella, using a 10 blade. The incision was carried down to the fascia using cautery. Once the fascia was encountered it was incised with the 10 blade and then curved Mayos were used to extend the fasciotomy both proximally and distally until the fascia was completely incised. Upon opening the fascia the muscle did not bulge however it was found to be viable without any evidence of necrotic muscle. Cautery was used to manipulate the muscle and all muscle within the posterior compartment was found to react to manipulation with the cau trinh. Cautery was then used to take the soleus muscle down from the tibia to decompress the deep posterior compartment. I then used a 10 blade to create an incision extending from just proximal to the lateral malleolus distally to just distal to the patella on the lateral aspect of the leg. I carried this down to the fascia using cautery. I incised the fascia of the anterior compartment with a 10 blade and then created both proximally and distally using the curved Mayos. The muscle slightly bulged from the compartment and was found to be pink and viable. Cautery was used to manipulate the muscle which reacted proximally however the distal muscle did not react to cautery. I then used a 10 blade to incise the lateral compartment and used a curved Mayos to open the entire length of the fascia both proximally and distally. Upon opening the compartment the muscle slightly bulged and was found to be pink and viable. Cautery was used to manipulate the muscle which reacted to cautery proximally however the distal muscle did not react. Hemostasis within all compartments was achieved with a combination of direct pressure and cautery. Once hemostasis was achieved both wounds were packed with Kerlix and then dressed with ABD pads, a loosely rolled Kerlix, and the 6 inch Nevilel wrap. The patient tolerated the procedure well. All sponge, needle, and instrument counts were correct. The patient was taken to the recovery area in stable condition.
[2020-03-19] MEDS ORDERED: ONDANSETRON 4 MG/2 ML INJ IV PRN (01:37)
[2020-03-19] MEDS ORDERED: HYDROmorphone 1 MG/1 ML INJ IV PRN (01:37)
[2020-03-19] MEDS: fentaNYL 100 MCG/2 ML INJ IV PRN ×3 (01:40→07:09)
[2020-03-19] MEDS ORDERED: INSULIN REGULAR, HUMAN 100 UNITS/1 ML IV ONE (01:54)
[2020-03-19] MEDS ORDERED: INSULIN LISPRO 100 UNIT/ML SUB-Q ONE (01:58)
[2020-03-19] MEDS ORDERED: INSULIN REGULAR, HUMAN 100 UNIT/ML 3ML VIAL SUB-Q ONE (02:01)
[2020-03-19] MEDS: HEPARIN/ 0.45% NACL DRIP 25,000 UNIT/500 ML BAG IV SCH ×2 (02:14→19:01)
--- NOTE | 2020-03-19 02:15 | Progress Note ---
Subjective Date of service: 03/19/20 Principal diagnosis: Compartment syndrome left lower extremity Objective - Constitutional Vitals: Vital Signs - 12hr 03/18/20 03/18/20 03/18/20 15:18 18:03 18:37 Temperature 99.5 F 99.5 F Pulse Rate 121 H 120 H 110 H Respiratory 20 20 Rate Blood Pressure 128/88 128/88 O2 Sat by Pulse 97 93 Oximetry 03/18/20 03/18/20 18:45 18:59 Temperature Pulse Rate 108 H Respiratory 28 H 28 H Rate Blood Pressure 127/91 O2 Sat by Pulse 97 97 Oximetry - Labs CBC & Chem 7: 03/18/20 18:28 03/18/20 18:28 Labs: Abnormal lab results 03/18/20 03/18/20 03/18/20 Range/Units 18:28 18:28 20:56 WBC 12.3 H (4.5-11.0) K/mm3 Lymph % (Auto) 11.0 L (13.4-35.0) % [place] % (Auto) 9.8 H (0.0-7.3) % [place] # 1.2 H (0.0-0.8) K/mm3 Seg Neutrophils % 78.4 H (40.0-70.0) % Seg Neutrophils # 9.6 H (1.8-7.7) K/mm3 Sodium 132 L (137-145) mmol/L Chloride 91.9 L (98-107) mmol/L Carbon Dioxide 20 L (22-30) mmol/L Creatinine 1.4 H (0.8-1.3) mg/dL Glucose 406 H (75-100) mg/dL POC Glucose (70-105) Hemoglobin A1c (4-6) % Total Creatine Kinase 2727 H 2492 H (55-170) units/L CK-MB (CK-2) 135.9 H 107.2 H (0.0-4.0) ng/mL CK-MB (CK-2) Rel Index 4.3 H (0-4) Troponin T 5.110 H* 3.960 H* D (0.00-0.029) ng/mL Triglycerides 188 H (2-149) mg/dL LDL Cholesterol Direct 141 H (50-130) mg/dL 03/18/20 03/19/20 Range/Units 22:21 01:57 WBC (4.5-11.0) K/mm3 Lymph % (Auto) (13.4-35.0) % [place] % (Auto) (0.0-7.3) % [place] # (0.0-0.8) K/mm3 Seg Neutrophils % (40.0-70.0) % Seg Neutrophils # (1.8-7.7) K/mm3 Sodium (137-145) mmol/L Chloride (98-107) mmol/L Carbon Dioxide (22-30) mmol/L Creatinine (0.8-1.3) mg/dL Glucose (75-100) mg/dL POC Glucose 317 H (70-105) Hemoglobin A1c 11.0 H (4-6) % Total Creatine Kinase (55-170) units/L CK-MB (CK-2) (0.0-4.0) ng/mL CK-MB (CK-2) Rel Index (0-4) Troponin T (0.00-0.029) ng/mL Triglycerides (2-149) mg/dL LDL Cholesterol Direct (50-130) mg/dL
--- NOTE | 2020-03-19 02:19 | Post Anesthesia Evaluation ---
- Post Anesthesia Evaluation Patient Participated: Yes Airway Patent: Yes Stable Respiratory Function: Yes Nausea/Vomiting: No Temp > 96.8F: Yes Pain Manageable: Yes Adequeate Hydration: Yes Anesthesia Complications: No Block Receding Appropriately: Not Applicable Patient on Ventilator: No Other Comments: Patient transferred to ICU for observation on account of comorbidities.
[2020-03-19] MEDS: MORPHINE 2 MG/1 ML INJ IV PRN ×2 (03:24→10:52)
[2020-03-19] MEDS: SODIUM CHLORIDE 0.9% 1000 ML 1,000 ML IV SCH ×2 (03:36→19:04)
[2020-03-19 08:37] LABS: Basophils # (Auto) 0.1 K/mm3 (0.0-0.1); Basophils % (Auto) 0.7 % (0.0-1.8); Eosinophils % (Auto) 0.1 % (0.0-4.3); Hematocrit 38.7 % (35.5-45.6); Hemoglobin 12.8 gm/dl (11.8-15.2); Lymphocytes # (Auto) 1.4 K/mm3 (1.2-5.4); Lymphocytes % (Auto) 10.7 % (13.4-35.0); Mean Corpuscular HGB Conc 33 % (32-34); Mean Corpuscular Volume 91 fl (84-94); Monocytes # (Auto) 1.1 K/mm3 (0.0-0.8); Monocytes % (Auto) 8.5 % (0.0-7.3); Platelet Count 254 K/mm3 (140-440); Red Blood Count 4.25 M/mm3 (3.65-5.03); Red Cell Distribution Width 13.8 % (13.2-15.2)
[2020-03-19 08:57] LABS: BUN/Creatinine Ratio 23; Blood Urea Nitrogen 23 mg/dL (9-20); Calcium 8.4 mg/dL (8.4-10.2); Hemolysis Index 48
[2020-03-19 08:58] LABS: INR 0.94 (0.87-1.13)
[2020-03-19 08:59] LABS: Creatine Kinase MB 79.3 ng/mL (0.0-4.0)
[2020-03-19] MEDS: CLOPIDOGREL 75 MG TAB PO SCH (10:52)
[2020-03-19] MEDS: ASPIRIN EC 81 MG TAB PO SCH (10:53)
[2020-03-19] MEDS: INSULIN LISPRO 100 UNIT/ML SUB-Q SCH ×3 (11:30→22:07)
--- NOTE | 2020-03-19 11:46 | Progress Note ---
Assessment and Plan Assessment and plan: --Acute left lower extremity ischemia Current Visit: Yes Status: Acute 03/19/2020 status post endovascular revascularization 03/19/2020 s/p left lower extremity 4 compartment fasciotomy Vascular following --Non-ST elevation MO : Current Visit: Yes Status: Acute We will monitor serial cardiac enzymes and EKG. patient denies any chest pain. Cardiology consulted for evaluation and recommendations Echocardiogram for left ventricular function ejection fraction -- Hyperglycemia due to diabetes mellitus Current Visit: Yes Status: Acute Accu-Chek sliding scale coverage ADA diet Long-acting insulin as needed, check A1c --Ongoing tobacco use Current Visit: Yes Status: Acute Smoking cessation nicotine patch as needed --DVT prophylaxis Current Visit: Yes Status: Acute Patient currently on anticoagulation. -- Full code status Current Visit: Yes Status: Acute Patient is on heparin drip Closely monitor patient and adjust management as needed Plan of care reviewed with the patient and his nurse Critical care time 35 min The high probability of a clinically significant, sudden or life threatening deterioration of the [ circulatory, vascular and metabolic] system(s) required my full and direct attention, intervention and personal management. The aggregate critical care time was [35] minutes. This time is in addition to time spent ,performing reported procedures but includes the following: [x] Data Review and interpretation [x] Patient assessment and monitoring of vital signs [x] Documentation [x] Medication orders and management History Interval history: I have seen and examined the patient at the bedside in ICU this morning Patient's chart and medications, procedure notes, reports reviewed Patient is sleeping easily awakens No new complaints Vital signs reviewed Hospitalist Physical - Constitutional Vitals: Temp Pulse Resp BP Pulse Ox 98.1 F 109 H 26 H 137/91 97 03/19/20 08:00 03/19/20 10:11 03/19/20 10:11 03/19/20 10:11 03/19/20 10:11 General appearance: Present: no acute distress, well-nourished, obese - EENT Eyes: Present: PERRL, EOM intact - Neck Neck: Present: supple, normal ROM - Respiratory Respiratory effort: normal Respiratory: bilateral: diminished, negative: rales, rhonchi, wheezing - Cardiovascular Rhythm: regular Heart Sounds: Present: S1 & S2 - Extremities Extremities: abnormal (Left lower extremity dressing in place) - Abdominal General gastrointestinal: soft, non-tender, non-distended, normal bowel sounds - Integumentary Integumentary: Present: clear, warm - Psychiatric Psychiatric: appropriate mood/affect, cooperative - Neurologic Neurologic: CNII-XII intact, moves all extremities HEART Score - HEART Score Troponin: Troponin T 5.540 ng/mL (0.00-0.029) H* D 03/19/20 08:08 Results - Labs CBC & Chem 7: 03/19/20 08:08 03/19/20 08:08 Labs: Laboratory Last Values WBC 13.3 K/mm3 (4.5-11.0) H 03/19/20 08:08 RBC 4.25 M/mm3 (3.65-5.03) 03/19/20 08:08 Hgb 12.8 gm/dl (11.8-15.2) 03/19/20 08:08 Hct 38.7 % (35.5-45.6) D 03/19/20 08:08 MCV 91 fl (84-94) 03/19/20 08:08 MCH 30 pg (28-32) 03/19/20 08:08 MCHC 33 % (32-34) 03/19/20 08:08 RDW 13.8 % (13.2-15.2) 03/19/20 08:08 Plt Count 254 K/mm3 (140-440) 03/19/20 08:08 Lymph % (Auto) 10.7 % (13.4-35.0) L 03/19/20 08:08 [place] % (Auto) 8.5 % (0.0-7.3) H 03/19/20 08:08 Eos % (Auto) 0.1 % (0.0-4.3) 03/19/20 08:08 Baso % (Auto) 0.7 % (0.0-1.8) 03/19/20 08:08 Lymph # 1.4 K/mm3 (1.2-5.4) 03/19/20 08:08 [place] # 1.1 K/mm3 (0.0-0.8) H 03/19/20 08:08 Eos # 0.0 K/mm3 (0.0-0.4) 03/19/20 08:08 Baso # 0.1 K/mm3 (0.0-0.1) 03/19/20 08:08 Seg Neutrophils % 80.0 % (40.0-70.0) H 03/19/20 08:08 Seg Neutrophils # 10.6 K/mm3 (1.8-7.7) H 03/19/20 08:08 PT 12.7 Sec. (12.2-14.9) 03/19/20 08:08 INR 0.94 (0.87-1.13) 03/19/20 08:08 APTT 27.7 Sec. (24.2-36.6) 03/18/20 18:28 Heparin Anti-Xa Level 0.10 U.I./ml (0.3-0.7) L 03/19/20 08:08 Sodium 133 mmol/L (137-145) L 03/19/20 08:08 Potassium 5.1 mmol/L (3.6-5.0) H 03/19/20 08:08 Chloride 99.3 mmol/L (98-107) 03/19/20 08:08 Carbon Dioxide 17 mmol/L (22-30) L 03/19/20 08:08 Anion Gap 22 mmol/L 03/19/20 08:08 BUN 23 mg/dL (9-20) H 03/19/20 08:08 Creatinine 1.0 mg/dL (0.8-1.3) 03/19/20 08:08 Estimated GFR > 60 ml/min 03/19/20 08:08 BUN/Creatinine Ratio 23 % 03/19/20 08:08 Glucose 313 mg/dL (75-100) H 03/19/20 08:08 POC Glucose 317 (70-105) H 03/19/20 01:57 Hemoglobin A1c 11.0 % (4-6) H 03/18/20 22:21 Calcium 8.4 mg/dL (8.4-10.2) 03/19/20 08:08 Total Creatine Kinase 7255 units/L (55-170) H 03/19/20 08:08 CK-MB (CK-2) 79.3 ng/mL (0.0-4.0) H 03/19/20 08:08 CK-MB (CK-2) Rel Index 1.0 (0-4) 03/19/20 08:08 Troponin T 5.540 ng/mL (0.00-0.029) H* D 03/19/20 08:08 Triglycerides 188 mg/dL (2-149) H 03/18/20 18:28 Cholesterol 199 mg/dL (50-199) 03/18/20 18:28 LDL Cholesterol Direct 141 mg/dL (50-130) H 03/18/20 18:28 HDL Cholesterol 47 mg/dL (40-59) 03/18/20 18:28 Cholesterol/HDL Ratio 4.23 % 03/18/20 18:28 Blood Type B POSITIVE 03/18/20 18:28 Antibody Screen Negative 03/18/20 18:28 [place]/IV: IV Catheter Type [Right INT / Saline Lock Antecubital] IV Catheter Type [Left INT / Saline Lock Antecubital] Active Medications - Current Medications Current Medications: Generic Name Dose Route Start Last Admin Trade Name Freq PRN Reason Stop Dose Admin Aspirin 81 mg 03/19/20 10:00 03/19/20 10:53 Halfprin Ec PO 81 mg QDAY LOI Administration Clopidogrel Bisulfate 75 mg 03/19/20 10:00 03/19/20 10:52 Plavix PO 75 mg QDAY LOI Administration Dextrose 50 ml 03/18/20 22:21 D50w (25gm) Syringe IV Q30MIN PRN Hypoglycemia Protocol Heparin Sodium/Sodium Chloride 25,000 unit in 500 mls @ 30 mls/hr 03/18/20 19:00 03/19/20 02:14 Heparin/ 0.45% Nacl-25,000 Unit/500 Ml IV 1,500 units/hr TITR LOI 30 mls/hr Administration Protocol 1,500 UNITS/HR Sodium Chloride 1,000 mls @ 75 mls/hr 03/19/20 10:19 Nacl 0.9% 1000 Ml IV DIRECT LOI Insulin Human Lispro 0 unit 03/19/20 07:30 Humalog SUB-Q ACHS LOI Protocol Magnesium Hydroxide 30 ml 03/18/20 22:21 Milk Of Magnesia PO Q4H PRN Constipation Morphine Sulfate 2 mg 03/18/20 22:21 03/19/20 10:52 Morphine IV 2 mg Q4H PRN Administration Pain, Moderate (4-6) Ondansetron HCl 4 mg 03/18/20 22:21 Zofran IV Q8H PRN Nausea And Vomiting Sodium Chloride 10 ml 03/19/20 10:00 03/19/20 10:53 Sodium Chloride Flush Syringe 10 Ml IV 10 ml BID LOI Administration Sodium Chloride 10 ml 03/18/20 22:21 Sodium Chloride Flush Syringe 10 Ml IV PRN PRN LINE FLUSH
[2020-03-19] MEDS ORDERED: NALOXONE 0.4 MG/1 ML INJ IV PRN (12:44)
[2020-03-19] MEDS ORDERED: diphenhydrAMINE 50 MG/ML VIAL IV PRN (12:44)
--- NOTE | 2020-03-19 12:59 | Progress Note ---
Assessment and Plan Patient s/p endovascular revascularization of left leg. Foot remains cold and insensate. It is unlikely that the foot is salvageable. I discussed with the patient that he will likely require a BKA. There is no immediate need for the amputation at this time. Will continue heparin gtt and plan for BKA later this week. Subjective Date of service: 03/19/20 Principal diagnosis: Compartment syndrome left lower extremity Interval history: Patient complaining of pain in his left calf. Still unable to move his toes. Objective - Constitutional Vitals: Vital Signs - 12hr 03/19/20 03/19/20 03/19/20 01:26 01:30 01:35 Temperature 97.6 F Pulse Rate 99 H 100 H 98 H Respiratory 16 19 20 Rate Blood Pressure 148/98 150/102 131/101 O2 Sat by Pulse 100 98 98 Oximetry 03/19/20 03/19/20 03/19/20 01:40 01:45 01:50 Temperature Pulse Rate 90 93 H 94 H Respiratory 18 20 19 Rate Blood Pressure 137/93 139/96 134/94 O2 Sat by Pulse 97 97 98 Oximetry 03/19/20 03/19/20 03/19/20 01:55 02:10 02:15 Temperature Pulse Rate 96 H 95 H Respiratory 19 20 20 Rate Blood Pressure 137/98 145/98 O2 Sat by Pulse 99 100 Oximetry 03/19/20 03/19/20 03/19/20 02:25 02:40 02:50 Temperature 98.0 F Pulse Rate 92 H 90 Respiratory 16 16 Rate Blood Pressure 147/89 150/80 O2 Sat by Pulse 96 98 95 Oximetry 03/19/20 03/19/20 03/19/20 03:00 03:10 03:11 Temperature 98.4 F Pulse Rate 109 H 102 H 96 H Respiratory 22 19 13 Rate Blood Pressure 166/139 155/107 166/139 O2 Sat by Pulse 94 96 96 Oximetry 03/19/20 03/19/20 03/19/20 03:15 03:21 03:33 Temperature Pulse Rate 96 H 97 H Respiratory 19 23 Rate Blood Pressure 166/139 166/139 O2 Sat by Pulse 97 Oximetry 03/19/20 03/19/20 03/19/20 03:40 03:51 04:00 Temperature Pulse Rate 94 H 91 H 89 Respiratory 26 H 25 H 24 Rate Blood Pressure 160/101 137/97 144/96 O2 Sat by Pulse 96 97 95 Oximetry 03/19/20 03/19/20 03/19/20 04:11 04:21 04:30 Temperature Pulse Rate 96 H 92 H 90 Respiratory 15 16 22 Rate Blood Pressure 144/96 149/106 138/91 O2 Sat by Pulse 97 96 95 Oximetry 03/19/20 03/19/20 03/19/20 04:41 04:51 05:00 Temperature Pulse Rate 90 92 H 92 H Respiratory 21 20 21 Rate Blood Pressure 138/91 138/91 140/95 O2 Sat by Pulse 96 97 97 Oximetry 03/19/20 03/19/20 03/19/20 05:11 05:21 05:33 Temperature Pulse Rate 87 89 88 Respiratory 23 22 22 Rate Blood Pressure 140/95 144/93 O2 Sat by Pulse 96 97 97 Oximetry 03/19/20 03/19/20 03/19/20 05:41 05:51 06:00 Temperature Pulse Rate 90 91 H 87 Respiratory 21 21 22 Rate Blood Pressure 137/90 132/89 O2 Sat by Pulse 98 98 98 Oximetry 03/19/20 03/19/20 03/19/20 06:11 06:21 06:30 Temperature Pulse Rate 93 H 94 H 88 Respiratory 22 20 22 Rate Blood Pressure 132/89 137/98 143/90 O2 Sat by Pulse 98 98 98 Oximetry 03/19/20 03/19/20 03/19/20 06:41 06:51 07:00 Temperature Pulse Rate 96 H 92 H 112 H Respiratory 25 H 20 19 Rate Blood Pressure 143/90 135/86 157/111 O2 Sat by Pulse 98 97 98 Oximetry 03/19/20 03/19/20 03/19/20 07:11 07:21 07:30 Temperature Pulse Rate 105 H 90 89 Respiratory 18 19 19 Rate Blood Pressure 157/111 131/88 123/82 O2 Sat by Pulse 98 97 98 Oximetry 03/19/20 03/19/20 03/19/20 07:41 07:51 08:00 Temperature 98.1 F Pulse Rate 96 H 92 H 91 H Respiratory 16 20 18 Rate Blood Pressure 123/82 125/86 122/80 O2 Sat by Pulse 98 98 98 Oximetry 03/19/20 03/19/20 03/19/20 08:11 08:21 08:30 Temperature Pulse Rate 96 H 98 H 99 H Respiratory 20 15 22 Rate Blood Pressure 122/80 137/86 135/93 O2 Sat by Pulse 98 98 98 Oximetry 03/19/20 03/19/20 03/19/20 08:34 08:41 08:51 Temperature Pulse Rate 107 H 96 H Respiratory 22 22 Rate Blood Pressure 135/93 138/98 O2 Sat by Pulse 98 99 99 Oximetry 03/19/20 03/19/20 03/19/20 09:00 09:11 09:20 Temperature Pulse Rate 102 H 95 H 110 H Respiratory 20 23 22 Rate Blood Pressure 118/92 118/92 129/84 O2 Sat by Pulse 97 97 Oximetry 03/19/20 03/19/20 03/19/20 09:23 09:30 09:40 Temperature Pulse Rate 101 H 100 H Respiratory 19 27 H 27 H Rate Blood Pressure 126/83 126/83 O2 Sat by Pulse 95 94 Oximetry 03/19/20 03/19/20 03/19/20 09:51 10:00 10:11 Temperature Pulse Rate 103 H 106 H 109 H Respiratory 25 H 27 H 26 H Rate Blood Pressure 129/81 137/91 137/91 O2 Sat by Pulse 95 97 Oximetry General appearance: Present: no acute distress - Neck Neck: supple - Respiratory Respiratory effort: normal - Cardiovascular Heart rate: 105 Rhythm: regular Extremities: normal temperature (left leg warm and well perfused), abnormal (Right groin without evidence of hematoma) Extremity abnormal: cold (left foot cold), other (Left leg fasciotomy dressing clean and without evidence of bleeding) - Gastrointestinal General gastrointestinal: Present: soft, non-distended - Neurologic Neurologic: other (left foot without motor or sensation) - Labs CBC & Chem 7: 03/19/20 08:08 03/19/20 08:08 Labs: Abnormal lab results 03/18/20 03/18/20 03/18/20 Range/Units 18:28 18:28 20:56 WBC 12.3 H (4.5-11.0) K/mm3 Lymph % (Auto) 11.0 L (13.4-35.0) % [place] % (Auto) 9.8 H (0.0-7.3) % [place] # 1.2 H (0.0-0.8) K/mm3 Seg Neutrophils % 78.4 H (40.0-70.0) % Seg Neutrophils # 9.6 H (1.8-7.7) K/mm3 Heparin Anti-Xa Level (0.3-0.7) U.I./ml Sodium 132 L (137-145) mmol/L Potassium (3.6-5.0) mmol/L Chloride 91.9 L (98-107) mmol/L Carbon Dioxide 20 L (22-30) mmol/L BUN (9-20) mg/dL Creatinine 1.4 H (0.8-1.3) mg/dL Glucose 406 H (75-100) mg/dL POC Glucose (70-105) Hemoglobin A1c (4-6) % Total Creatine Kinase 2727 H 2492 H (55-170) units/L CK-MB (CK-2) 135.9 H 107.2 H (0.0-4.0) ng/mL CK-MB (CK-2) Rel Index 4.3 H (0-4) Troponin T 5.110 H* 3.960 H* D (0.00-0.029) ng/mL Triglycerides 188 H (2-149) mg/dL LDL Cholesterol Direct 141 H (50-130) mg/dL 03/18/20 03/19/20 03/19/20 Range/Units 22:21 01:57 08:08 WBC (4.5-11.0) K/mm3 Lymph % (Auto) (13.4-35.0) % [place] % (Auto) (0.0-7.3) % [place] # (0.0-0.8) K/mm3 Seg Neutrophils % (40.0-70.0) % Seg Neutrophils # (1.8-7.7) K/mm3 Heparin Anti-Xa Level (0.3-0.7) U.I./ml Sodium (137-145) mmol/L Potassium (3.6-5.0) mmol/L Chloride (98-107) mmol/L Carbon Dioxide (22-30) mmol/L BUN (9-20) mg/dL Creatinine (0.8-1.3) mg/dL Glucose (75-100) mg/dL POC Glucose 317 H (70-105) Hemoglobin A1c 11.0 H (4-6) % Total Creatine Kinase 7255 H (55-170) units/L CK-MB (CK-2) 79.3 H (0.0-4.0) ng/mL CK-MB (CK-2) Rel Index (0-4) Troponin T 5.540 H* D (0.00-0.029) ng/mL Triglycerides (2-149) mg/dL LDL Cholesterol Direct (50-130) mg/dL 03/19/20 03/19/20 03/19/20 Range/Units 08:08 08:08 08:08 WBC 13.3 H (4.5-11.0) K/mm3 Lymph % (Auto) 10.7 L (13.4-35.0) % [place] % (Auto) 8.5 H (0.0-7.3) % [place] # 1.1 H (0.0-0.8) K/mm3 Seg Neutrophils % 80.0 H (40.0-70.0) % Seg Neutrophils # 10.6 H (1.8-7.7) K/mm3 Heparin Anti-Xa Level 0.10 L (0.3-0.7) U.I./ml Sodium 133 L (137-145) mmol/L Potassium 5.1 H (3.6-5.0) mmol/L Chloride (98-107) mmol/L Carbon Dioxide 17 L (22-30) mmol/L BUN 23 H (9-20) mg/dL Creatinine (0.8-1.3) mg/dL Glucose 313 H (75-100) mg/dL POC Glucose (70-105) Hemoglobin A1c (4-6) % Total Creatine Kinase (55-170) units/L CK-MB (CK-2) (0.0-4.0) ng/mL CK-MB (CK-2) Rel Index (0-4) Troponin T (0.00-0.029) ng/mL Triglycerides (2-149) mg/dL LDL Cholesterol Direct (50-130) mg/dL Medications & Allergies - Medications Allergies/Adverse Reactions: Allergies No Known Allergies Allergy (Unverified 03/18/20 15:17) Active Medications: Generic Name Dose Route Start Last Admin Trade Name Freq PRN Reason Stop Dose Admin Aspirin 81 mg 03/19/20 10:00 03/19/20 10:53 Halfprin Ec PO 81 mg QDAY LOI Administration Atorvastatin Calcium 40 mg 03/19/20 22:00 Lipitor PO QHS LOI Clopidogrel Bisulfate 75 mg 08/04/20 10:00 03/19/20 10:52 Plavix PO 75 mg QDAY LOI Administration Dextrose 50 ml 03/18/20 22:21 D50w (25gm) Syringe IV Q30MIN PRN Hypoglycemia Protocol Diphenhydramine HCl 25 mg 03/19/20 12:44 Benadryl IV Q4H PRN Itching Hydromorphone/Sodium Chloride 0 mg 03/19/20 13:00 Dilaudid Program Checker 6mg/30ml IV DIRECT [facility] Protocol Heparin Sodium/Sodium Chloride 25,000 unit in 500 mls @ 30 mls/hr 03/18/20 19:00 03/19/20 02:14 Heparin/ 0.45% Nacl-25,000 Unit/500 Ml IV 1,500 units/hr TITR LOI 30 mls/hr Administration Protocol 1,500 UNITS/HR Sodium Chloride 1,000 mls @ 75 mls/hr 03/19/20 10:19 Nacl 0.9% 1000 Ml IV DIRECT [facility] Insulin Human Lispro 0 unit 03/19/20 07:30 Humalog SUB-Q ACHS [facility] Protocol Magnesium Hydroxide 30 ml 03/18/20 22:21 Milk Of Magnesia PO Q4H PRN Constipation Metoprolol Tartrate 50 mg 03/19/20 22:00 Metoprolol PO BID [facility] Naloxone HCl 0.1 mg 03/19/20 12:44 Naloxone IV Q2MIN PRN Res Rate </= 8 or 02 SAT < 92% Ondansetron HCl 4 mg 03/18/20 22:21 Zofran IV Q8H PRN Nausea And Vomiting Sodium Chloride 10 ml 03/19/20 10:00 03/19/20 10:53 Sodium Chloride Flush Syringe 10 Ml IV 10 ml BID LOI Administration Sodium Chloride 10 ml 03/18/20 22:21 Sodium Chloride Flush Syringe 10 Ml IV PRN PRN LINE FLUSH HEART Score - HEART Score Troponin: Troponin T 5.540 ng/mL (0.00-0.029) H* D 03/19/20 08:08
--- NOTE | 2020-03-19 13:00 | Consultation ---
History of Present Illness Consult date: 03/19/20 Requesting physician: KADE RICHTER Reason for consult: other (Acute Limb Ischemia) History of present illness: PULMONARY/CCM CONSULT NOTE (Full dictation # [id number]) Please see dictated notes for full details Past History Past Medical History: CAD, COPD, diabetes, hypertension, hyperlipidemia Past Surgical History: CABG Social history: smoking (Current every day smoker) Family history: no significant family history Medications and Allergies Allergies Allergy/AdvReac Type Severity Reaction Status Date / Time No Known Allergies Allergy Unverified 03/18/20 15:17 Active Meds: Active Medications Aspirin (Halfprin Ec) 81 mg PO QDAY LOI Last Admin: 03/19/20 10:53 Dose: 81 mg Documented by: Atorvastatin Calcium (Lipitor) 40 mg PO QHS LOI Clopidogrel Bisulfate (Plavix) 75 mg PO QDAY LOI Last Admin: 03/19/20 10:52 Dose: 75 mg Documented by: Dextrose (D50w (25gm) Syringe) 50 ml IV Q30MIN PRN; Protocol PRN Reason: Hypoglycemia Diphenhydramine HCl (Benadryl) 25 mg IV Q4H PRN PRN Reason: Itching Hydromorphone/Sodium Chloride (Dilaudid Retail Office Manager 6mg/30ml) 0 mg IV DIRECT LOI; Protocol Heparin Sodium/Sodium Chloride (Heparin/ 0.45% Nacl-25,000 Unit/500 Ml) 25,000 unit in 500 mls @ 30 mls/hr IV TITR LOI; Protocol Last Admin: 03/19/20 02:14 Dose: 1,500 units/hr, 30 mls/hr Documented by: Sodium Chloride (Nacl 0.9% 1000 Ml) 1,000 mls @ 75 mls/hr IV DIRECT LOI Insulin Human Lispro (Humalog) 0 unit SUB-Q ACHS LOI; Protocol Magnesium Hydroxide (Milk Of Magnesia) 30 ml PO Q4H PRN PRN Reason: Constipation Metoprolol Tartrate (Metoprolol) 50 mg PO BID LOI Naloxone HCl (Naloxone) 0.1 mg IV Q2MIN PRN PRN Reason: Res Rate </= 8 or 02 SAT < 92% Ondansetron HCl (Zofran) 4 mg IV Q8H PRN PRN Reason: Nausea And Vomiting Sodium Chloride (Sodium Chloride Flush Syringe 10 Ml) 10 ml IV BID LOI Last Admin: 03/19/20 10:53 Dose: 10 ml Documented by: Sodium Chloride (Sodium Chloride Flush Syringe 10 Ml) 10 ml IV PRN PRN PRN Reason: LINE FLUSH Physical Examination Vital signs: Vital Signs Temp Pulse Resp BP Pulse Ox 99.5 F 121 H 20 128/88 97 03/18/20 15:18 03/18/20 15:18 03/18/20 15:18 03/18/20 15:18 03/18/20 15:18 Results - Laboratory Findings CBC and BMP: 03/19/20 08:08 03/19/20 08:08 PT/INR, D-dimer PT 12.7 Sec. (12.2-14.9) 03/19/20 08:08 INR 0.94 (0.87-1.13) 03/19/20 08:08 Abnormal lab findings: Abnormal Labs 03/18/20 03/18/20 03/18/20 18:28 18:28 20:56 WBC 12.3 H Lymph % (Auto) 11.0 L [place] % (Auto) 9.8 H [place] # 1.2 H Seg Neutrophils % 78.4 H Seg Neutrophils # 9.6 H Heparin Anti-Xa Level Sodium 132 L Potassium Chloride 91.9 L Carbon Dioxide 20 L BUN Creatinine 1.4 H Glucose 406 H POC Glucose Hemoglobin A1c Total Creatine Kinase 2727 H 2492 H CK-MB (CK-2) 135.9 H 107.2 H CK-MB (CK-2) Rel Index 4.3 H Troponin T 5.110 H* 3.960 H* D Triglycerides 188 H LDL Cholesterol Direct 141 H 03/18/20 03/19/20 03/19/20 22:21 01:57 08:08 WBC Lymph % (Auto) [place] % (Auto) [place] # Seg Neutrophils % Seg Neutrophils # Heparin Anti-Xa Level Sodium Potassium Chloride Carbon Dioxide BUN Creatinine Glucose POC Glucose 317 H Hemoglobin A1c 11.0 H Total Creatine Kinase 7255 H CK-MB (CK-2) 79.3 H CK-MB (CK-2) Rel Index Troponin T 5.540 H* D Triglycerides LDL Cholesterol Direct 03/19/20 03/19/20 03/19/20 08:08 08:08 08:08 WBC 13.3 H Lymph % (Auto) 10.7 L [place] % (Auto) 8.5 H [place] # 1.1 H Seg Neutrophils % 80.0 H Seg Neutrophils # 10.6 H Heparin Anti-Xa Level 0.10 L Sodium 133 L Potassium 5.1 H Chloride Carbon Dioxide 17 L BUN 23 H Creatinine Glucose 313 H POC Glucose Hemoglobin A1c Total Creatine Kinase CK-MB (CK-2) CK-MB (CK-2) Rel Index Troponin T Triglycerides LDL Cholesterol Direct
--- NOTE | 2020-03-19 13:57 | Consultation ---
History of Present Illness Consult date: 03/19/20 Requesting physician: JEAN CLAUDE COLLINS Consult reason: elevated troponin, other (abn ekg) History of present illness: The patient is a 54-year-old male with a past medical history of coronary artery disease s/p CABG at [facility] in 2008 (BAHENA to LAD, saphenous to obtuse marginal), CVA, tobacco abuse, and peripheral arterial disease. He presented to an outside hospital with complaints of left foot pain however he was discharged with a diagnosis of a sprained ankle. He presented to this hospital on 03/18 with greater than 8 hours of left foot pain with an insensate left foot with no motor function. CTA demonstrated acute thrombus within the left SFA and popliteal artery and subsequently underwent BLE endovascular revascularization with fasciotomy. Per vascular team today, it is unlikely that the foot is salvageable and pt will likely require a left BKA. Pt was noted to have abnormal ECG after arrival to ED yesterday evening and thus cardiology was been consulted. EKG reviewed by on-call STEMI doctor Dr. Treviño. Although abnormal, not c/w STEMI. Pt denies any occurrence of chest pain, SOB, palpitations, n/v, diaphoresis, dizziness or syncope. tte done 12/2014 showed EF 55-60%, no significant abnormalities. Past History Past Medical History: CAD, COPD, diabetes, hypertension, hyperlipidemia Past Surgical History: CABG Social history: smoking (Current every day smoker) Family history: no significant family history Medications and Allergies Allergies Allergy/AdvReac Type Severity Reaction Status Date / Time No Known Allergies Allergy Unverified 03/18/20 15:17 Active Meds: Active Medications Aspirin (Halfprin Ec) 81 mg PO QDAY LOI Last Admin: 03/19/20 10:53 Dose: 81 mg Documented by: Atorvastatin Calcium (Lipitor) 40 mg PO QHS LOI Clopidogrel Bisulfate (Plavix) 75 mg PO QDAY LOI Last Admin: 03/19/20 10:52 Dose: 75 mg Documented by: Dextrose (D50w (25gm) Syringe) 50 ml IV Q30MIN PRN; Protocol PRN Reason: Hypoglycemia Diphenhydramine HCl (Benadryl) 25 mg IV Q4H PRN PRN Reason: Itching Hydromorphone/Sodium Chloride (Dilaudid Technology Architect 6mg/30ml) 0 mg IV DIRECT LOI; Protocol Heparin Sodium/Sodium Chloride (Heparin/ 0.45% Nacl-25,000 Unit/500 Ml) 25,000 unit in 500 mls @ 30 mls/hr IV TITR [facility]; Protocol Last Admin: 03/19/20 02:14 Dose: 1,500 units/hr, 30 mls/hr Documented by: Sodium Chloride (Nacl 0.9% 1000 Ml) 1,000 mls @ 75 mls/hr IV DIRECT LOI Insulin Human Lispro (Humalog) 0 unit SUB-Q ACHS [facility]; Protocol Magnesium Hydroxide (Milk Of Magnesia) 30 ml PO Q4H PRN PRN Reason: Constipation Metoprolol Tartrate (Metoprolol) 50 mg PO BID [facility] Naloxone HCl (Naloxone) 0.1 mg IV Q2MIN PRN PRN Reason: Res Rate </= 8 or 02 SAT < 92% Ondansetron HCl (Zofran) 4 mg IV Q8H PRN PRN Reason: Nausea And Vomiting Sodium Chloride (Sodium Chloride Flush Syringe 10 Ml) 10 ml IV BID [facility] Last Admin: 03/19/20 10:53 Dose: 10 ml Documented by: Sodium Chloride (Sodium Chloride Flush Syringe 10 Ml) 10 ml IV PRN PRN PRN Reason: LINE FLUSH Review of Systems Constitutional: no weight loss, no weight gain, no fever, no chills, no sweats Ears, nose, mouth and throat: no ear pain, no nose pain, no sinus pressure, no sinus pain Cardiovascular: no chest pain, no orthopnea, no palpitations, no rapid/irregular heart beat, no edema, no syncope, no lightheadedness, no shortness of breath, no dyspnea on exertion Respiratory: no cough, no shortness of breath, no dyspnea on exertion, no congestion, no wheezing, no pain on inspiration Gastrointestinal: no abdominal pain, no nausea, no vomiting, no diarrhea, no constipation, no change in bowel habits Genitourinary Male: no dysuria, no hematuria, no flank pain, no discharge, no urinary frequency, no urinary hesitancy Musculoskeletal: leg numbness/tingling (LLE numb, cold), no neck stiffness, no neck pain, no shooting arm pain, no arm numbness/tingling, no low back pain Integumentary: no rash, no pruritis Neurological: no head injury, no paralysis, no weakness, no parathesias, no numbness, no tingling, no seizures, no syncope Endocrine: no cold intolerance, no heat intolerance Hematologic/Lymphatic: no easy bruising, no easy bleeding Allergic/Immunologic: no urticaria Physical Examination Vital Signs Temp Pulse Resp BP Pulse Ox 99.5 F 121 H 20 128/88 97 03/18/20 15:18 03/18/20 15:18 03/18/20 15:18 03/18/20 15:18 03/18/20 15:18 General appearance: no acute distress HEENT: Positive: PERRL, Normocephaly, Mucus Membranes Moist Neck: Positive: neck supple, trachea midline Cardiac: Positive: Reg Rate and Rhythm, S1/S2 Lungs: Positive: Decreased Breath Sounds Neuro: Positive: Grossly Intact Abdomen: Negative: Tender Skin: Negative: Rash Musculoskeletal: other (LLE pain, numbness, pale) Extremities: Present: Other (LLE pain, numbness, pale) Results 03/19/20 08:08 03/19/20 08:08 Cardiac Enzymes 03/18/20 03/18/20 03/19/20 Range/Units 18:28 20:56 08:08 CK-MB (CK-2) 135.9 H 107.2 H 79.3 H (0.0-4.0) ng/mL Coagulation 03/18/20 03/19/20 Range/Units 18:28 08:08 PT 14.1 12.7 (12.2-14.9) Sec. INR 1.08 0.94 (0.87-1.13) APTT 27.7 (24.2-36.6) Sec. Lipids 03/18/20 Range/Units 18:28 Triglycerides 188 H (2-149) mg/dL Cholesterol 199 (50-199) mg/dL HDL Cholesterol 47 (40-59) mg/dL Cholesterol/HDL Ratio 4.23 % CBC 03/18/20 03/19/20 Range/Units 18:28 08:08 WBC 12.3 H 13.3 H (4.5-11.0) K/mm3 RBC 5.01 4.25 (3.65-5.03) M/mm3 Hgb 15.2 12.8 (11.8-15.2) gm/dl Hct 45.2 38.7 D (35.5-45.6) % Plt Count 312 254 (140-440) K/mm3 Lymph # 1.4 1.4 (1.2-5.4) K/mm3 [place] # 1.2 H 1.1 H (0.0-0.8) K/mm3 Eos # 0.0 0.0 (0.0-0.4) K/mm3 Baso # 0.1 0.1 (0.0-0.1) K/mm3 Comprehensive Metabolic Panel 03/18/20 03/19/20 Range/Units 18:28 08:08 Sodium 132 L 133 L (137-145) mmol/L Potassium 5.0 5.1 H (3.6-5.0) mmol/L Chloride 91.9 L 99.3 (98-107) mmol/L Carbon Dioxide 20 L 17 L (22-30) mmol/L BUN 18 23 H (9-20) mg/dL Creatinine 1.4 H 1.0 (0.8-1.3) mg/dL Glucose 406 H 313 H (75-100) mg/dL Calcium 9.6 8.4 (8.4-10.2) mg/dL - Imaging and Cardiology Echo: pending, report reviewed (tte done 12/2014 showed EF 55-60%, no significant abnormalities. ) EKG: report reviewed, image reviewed EKG interpretations - Telemetry EKG Rhythm: Sinus Rhythm - EKG Sinus rhythms and dysrhythmias: sinus rhythm Repolarization changes or abnormalities: nonspecific abnormality, ST segment, and/or T wave Assessment and Plan ECG is noted to be abnormal although not c/w STEMI. Ozzie elevation appears c/w NSTEMI type II, pt denies any occurrence of chest pain or other cardiac complaints. VSS. Agree with heparin gtt (recommend continuation x48Hr from cardiac standpoint), ASA and plavix. Initiate lopressor and statin. Cont to trend Ozzie and f/u ECG. Obtain echo. Will plan for stress test once medically stabilized - could be accomplished as OP. Will follow. The patient has been seen in conjunction with Dr. Treviño who agrees with the assessment and plan of care. - Patient Problems (1) PAD (peripheral artery disease) Current Visit: Yes Status: Chronic (2) Abnormal ECG Current Visit: Yes Status: Acute (3) NSTEMI (non-ST elevated myocardial infarction) Current Visit: Yes Status: Acute Plan to address problem: suspect type II (4) CAD (coronary artery disease) Current Visit: Yes Status: Chronic (5) History of coronary artery bypass graft Current Visit: Yes Status: Chronic (6) HTN (hypertension) Current Visit: Yes Status: Chronic (7) History of CVA (cerebrovascular accident) Current Visit: Yes Status: Chronic (8) Smoker Current Visit: Yes Status: Chronic
[2020-03-19] MEDS: PANTOPRAZOLE 40 MG INJ IV SCH ×2 (15:00→22:00)
[2020-03-19] MEDS: HYDROmorphone/NS 6 MG/30 ML PCA INJ IV SCH (15:41)
[2020-03-19 15:50] LABS: ABG Base Excess -5.4 mmol/L (-2.0-3.0); ABG HCO3 18.3 mmol/L (20.0-26.0); ABG Methemoglobin 0.6 % (0.0-1.5); ABG Oxygen Saturation 96.9 % (95.0-99.0); ABG PCO2 30.2 mm Hg; ABG PH 7.4 pH Units (7.350-7.450); ABG PO2 86.2 mm Hg (80.0-90.0)
[2020-03-19] MEDS ORDERED: SODIUM CHLORIDE 0.9% 500 ML 500 ML IV ONE (16:00)
--- NOTE | 2020-03-19 19:58 | Consultation ---
PULMONARY CRITICAL CARE CONSULTATION NOTE CONSULTING PHYSICIAN: Dr. rBock Kirkpatrick. REASON FOR CONSULTATION: Acute limb ischemia. CHIEF COMPLAINT AND HISTORY OF PRESENT ILLNESS: The patient is a 54-year-old male with past medical history of a cerebrovascular accident without significant residual defects as well as coronary artery disease, also a history of pulmonary emboli and DVTs, presented to the Emergency Room yesterday complaining of left foot pain and discoloration, had been going on about a week. He denied any fall or trauma. He said the pain and discoloration was getting really worse on the day of presentation. He had been seen at an outside hospital and treated for a muscle sprain prior. On the day of presentation, his left foot became cold and was turning blue, he had increasing pain, came to the ER and Vascular Surgery was consulted. He was taken emergently to the director of labor relations and he ultimately required endovascular revascularization of the left lower extremity as well as a 4-compartment fasciotomy. Post-procedure, he was brought back to the Intensive Care Unit on a heparin drip where I stopped by to see him. When I stopped by to see him, he was resting in bed, on supplemental oxygen at 2 liters nasal cannula. He denied chest pain. He said the leg pain was much better than it had been prior. He denied any cough or hemoptysis. He denied any hematuria. He denied any bleeding diathesis. He does tell me that he is on a home CPAP machine. He does have a 10+ pack year tobacco smoking history, continues to smoke about half a pack of cigarettes per day. This really is as much of the history of presentation as I have. PAST MEDICAL HISTORY: Again, significant for coronary artery disease, chronic obstructive lung disease, diabetes, hypertension, hyperlipidemia, history of the pulmonary emboli, history of cerebrovascular accident. PAST SURGICAL HISTORY: He has had coronary artery bypass grafting x 2. MEDICATIONS: He was on at the time I stopped by to see him were reviewed. Pertinent medications included the following: Aspirin 81 mg p.o. daily, Lipitor 40 mg p.o. at bedtime, Plavix 75 mg p.o. daily, Benadryl 25 mg IV q.4 hours p.r.n. itching, heparin drip was going at 1500 per units adjusted per protocol, insulin via sliding scale, metoprolol 50 mg p.o. b.i.d., Zofran 4 mg IV q.8 hours p.r.n. nausea and vomiting; he had been on morphine, I believe it was 2 mg IV q.4 hours moderate pain. ALLERGIES: No known drug allergies. DIET: Obese gentleman. Denies acute weight loss or gain in the preceding few weeks to months. FAMILY AND SOCIAL HISTORY: Lives in the community, has a 10+ pack year tobacco smoking history. Denied alcohol or illicit drug use or abuse. FAMILY HISTORY: Otherwise, noncontributory. REVIEW OF SYSTEMS: No loss of consciousness. No new onset seizures. No new onset focal weakness. Denies gross hematochezia or melena. Denies gross hematuria or dysuria. No hematemesis. No hemoptysis. He denies heat or cold intolerance. Denies polydipsia or polyuria. Complete 13-system review of systems obtained. Pertinent positives and/or negatives as in body of the history above, otherwise they are noncontributory. PHYSICAL EXAMINATION: VITAL SIGNS: On examination at presentation in the Emergency Room, he had a low-grade fever of 99.5 degrees Fahrenheit, pulse of 121, respiratory rate of 20, blood pressure 128/88, O2 sats were 97, inspired oxygen concentration at that time was not recorded. GENERAL: He is obese, middle-aged male, normocephalic, resting in bed with mildly increased respiratory effort at rest. HEAD, EYES, EARS, NOSE AND THROAT: He is anicteric. No conjunctival erythema. Oropharynx was moist. Mallampati #3 oropharynx. No gross jugular venous distention. He does have a large neck circumference. No thyromegaly. NECK: Grossly, there were no palpable lymph nodes in the supraclavicular or submandibular lymph node chains. LUNGS: Auscultation of both lung sierra was unremarkable. He had good bilateral air movement. HEART: Heart sounds 1 and 2 are heard. They were regular in rate and rhythm at time of my evaluation without overt rubs or murmurs. ABDOMEN: Soft, full, bowel sounds are positive. It is protuberant, but nontender. No palpable hepatosplenomegaly. EXTREMITIES: Without overt digital clubbing or cyanosis. The left lower extremity in particular has a gauze dressing over the leg from below the knee to the ankles. He has redness and discoloration to the exposed foot, the exposed foot is cold to touch. However, there are feeble pedal pulses that are palpable, dorsalis pedis. NEUROLOGIC: Pupils are equal, round, about 4 mm, reactive to light. Extraocular muscle movements were intact. He moved all 4 extremities spontaneously. He could not move his left foot, I believe he says this is limited mostly by pain. SKIN: Definitely poor turgor and particularly in the lower extremities. There was loss of hair on the choudhury of the right lower extremity too. He also had the postop changes. Please see the wound care nurse's notes for full description of the skin. PSYCHIATRIC: His mood and affect were anxious. LABORATORY DATA: From my review are as follows: Admission white cell count 12,300, hemoglobin 15.2, hematocrit 45.2, platelet count 312. INR was 1.08. Serum sodium 132, potassium 5.0, chloride 92, bicarbonate 20, BUN 18, creatinine 1.4, glucose 406. CPK was 2727, it is up to 7255. Troponin was 5.11, it is 5.54 at this time. No microbiology studies. A CT angiogram of the abdomen was done. I have reviewed the report and the impression: Occlusion of the left superficial femoral artery, which appeared to be subacute, inability to visualize distal runoff below the knee on the left lower extremity. ASSESSMENT: 1. Acute limb ischemia, status post revascularization surgery. 2. Obstructive sleep apnea. 3. History of chronic obstructive pulmonary disease. 4. Acute hypoxemic respiratory failure. 5. Diabetes. 6. History of coronary artery disease. 7. Non-ST elevation myocardial infarction. 8. Acute coronary syndrome. 9. History of cerebrovascular accident. PLAN: I will keep him on supplemental oxygen. I will deploy continuous positive airway pressure ventilation at a CPAP of 10. He thinks his number is 5, but he is not really sure. I will consider getting an arterial blood gas. A chest x-ray will be ordered in light of the hypoxemia. I will put him on Brovana and Pulmicort in light of his COPD history with p.r.n. nebulizer treatments. Tobacco abstinence has been strongly counseled at bedside for greater than 5 minutes, explaining to him the benefits of stopping at any time. I will defer to the vascular team for management of the acute limb ischemia, he continues on antiplatelet therapy with the Plavix as well as the IV heparin. Cardiology consultation has been placed and evaluation is ongoing. The EKG suggests possible ST elevations and inferior ischemia, they are evaluating right now, I do note the elevated serum troponins. He is hemodynamically stable relatively otherwise, and he is on the IV heparin. Weight loss has been counseled. Oxygen will be weaned to keep sats greater than or equal to about 92%. He will be placed on GI prophylaxis with IV heparin, I will make it b.i.d., especially with him on full anticoagulation. Flu and pneumonia vaccination will be addressed per protocol. The supervisor cd area has been notified of the current EKG that has been done. Thank you very much for the consult. We will follow along and make further recommendations as picture progresses/becomes clearer. He is critically ill at high risk of from cardiopulmonary system decompensation. At this time, I have spent about 35-40 minutes of critical care time without overlap and excluding any procedural time that may be necessary. JOB# [id number] JOHNNY/JEAN PIERRE MANDEL
--- NOTE | 2020-03-19 20:13 | XRay Report ---
CHEST 1 VIEW INDICATION / CLINICAL INFORMATION: Hypoxemia; COPD. COMPARISON: None available. FINDINGS: SUPPORT DEVICES: None. HEART / MEDIASTINUM: Changes of prior median sternotomy are noted. There is prominence the cardiac si lhouette LUNGS / PLEURA: No significant pulmonary or pleural abnormality.. No pneumothorax. ADDITIONAL FINDINGS: No significant additional findings. IMPRESSION: 1. No acute findings. Signer Name: Reza Varela MD Signed: 03/19/2020 8:09 PM Workstation Name: [id number]
[2020-03-19] MEDS: BUDESONIDE 0.5 MG/2 ML NEBU IH SCH (21:18)
[2020-03-19] MEDS: ARFORMOTEROL 15 MCG/2 ML NEBU IH SCH (21:18)
[2020-03-19] MEDS ORDERED: HEPARIN 5,000 UNIT/1 ML VIAL ONE (21:54)
[2020-03-19] MEDS ORDERED: HEPARIN 10,000 UNITS/10 ML VIAL ONE (21:55)
[2020-03-19] MEDS: METOPROLOL TARTRATE 50 MG TAB PO SCH (22:00)
[2020-03-20 05:10] LABS: ABG Base Excess -0.1 mmol/L (-2.0-3.0); ABG HCO3 24.6 mmol/L (20.0-26.0); ABG Methemoglobin 0.4 % (0.0-1.5); ABG Oxygen Saturation 94.3 % (95.0-99.0); ABG PCO2 40.3 mm Hg; ABG PH 7.405 pH Units (7.350-7.450); ABG PO2 68.3 mm Hg (80.0-90.0)
[2020-03-20 06:18] LABS: Basophils # (Auto) 0.1 K/mm3 (0.0-0.1); Basophils % (Auto) 0.9 % (0.0-1.8); Eosinophils # (Auto) 0.1 K/mm3 (0.0-0.4); Eosinophils % (Auto) 1.2 % (0.0-4.3); Hematocrit 32.7 % (35.5-45.6); Lymphocytes # (Auto) 1.5 K/mm3 (1.2-5.4); Mean Corpuscular HGB Conc 34 % (32-34); Mean Corpuscular Volume 90 fl (84-94); Monocytes # (Auto) 0.9 K/mm3 (0.0-0.8); Monocytes % (Auto) 8.1 % (0.0-7.3); Platelet Count 225 K/mm3 (140-440); Red Blood Count 3.63 M/mm3 (3.65-5.03); Red Cell Distribution Width 13.3 % (13.2-15.2)
[2020-03-20 06:32] LABS: BUN/Creatinine Ratio 23; Blood Urea Nitrogen 23 mg/dL (9-20); Calcium 8.6 mg/dL (8.4-10.2); Hemolysis Index 12
[2020-03-20] MEDS: ARFORMOTEROL 15 MCG/2 ML NEBU IH SCH ×2 (08:01→21:58)
[2020-03-20] MEDS: BUDESONIDE 0.5 MG/2 ML NEBU IH SCH ×2 (08:01→21:58)
[2020-03-20] MEDS: INSULIN LISPRO 100 UNIT/ML SUB-Q SCH ×3 (08:30→13:38)
[2020-03-20] MEDS: SODIUM CHLORIDE 0.9% 1000 ML 1,000 ML IV SCH ×2 (08:31→22:44)
[2020-03-20] MEDS: CLOPIDOGREL 75 MG TAB PO SCH (09:28)
[2020-03-20] MEDS: ASPIRIN EC 81 MG TAB PO SCH (09:28)
[2020-03-20] MEDS: PANTOPRAZOLE 40 MG TAB PO SCH ×2 (09:28→22:30)
[2020-03-20] MEDS: METOPROLOL TARTRATE 50 MG TAB PO SCH ×3 (09:29→22:29)
--- NOTE | 2020-03-20 09:52 | Progress Note ---
Assessment and Plan The patient is stable at this point. He continues to have elevated troponins although they are trending down. He has no complaints of chest pain or shortness of breath at this time. His left leg is warm with some warmth of the foot suggesting that there is some improvement of flow as he states that he has some sensation of the hindfoot however the forefoot is ischemic with no motor or sensation. The level of viable foot is less than what is required for a transmetatarsal amputation at this point so it is still likely that he will require below-knee amputation. There is no indication that this needs to be performed emergently. We will continue to watch him and allow his troponins to trend down to normal and performed any amputation required on an elective basis unless the patient develops intractable pain or signs of infection. Subjective Date of service: 03/20/20 Principal diagnosis: Compartment syndrome left lower extremity Interval history: No new complaints. No significant events overnight. Objective - Constitutional Vitals: Vital Signs - 12hr 03/19/20 03/19/20 03/19/20 21:51 22:00 22:11 Temperature Pulse Rate 105 H 104 H 106 H Pulse Rate [ Anterior Bilateral Throughout] Respiratory 18 20 22 Rate Respiratory Rate [Anterior Bilateral Throughout] Blood Pressure 115/76 115/76 115/76 O2 Sat by Pulse 97 96 97 Oximetry 03/19/20 03/19/20 03/19/20 22:21 22:30 22:41 Temperature Pulse Rate 102 H 103 H 102 H Pulse Rate [ Anterior Bilateral Throughout] Respiratory 17 18 18 Rate Respiratory Rate [Anterior Bilateral Throughout] Blood Pressure 115/76 123/85 123/85 O2 Sat by Pulse 97 98 Oximetry 03/19/20 03/19/20 03/19/20 22:51 22:55 23:00 Temperature Pulse Rate 104 H 111 H 116 H Pulse Rate [ Anterior Bilateral Throughout] Respiratory 18 21 65 H Rate Respiratory Rate [Anterior Bilateral Throughout] Blood Pressure 123/85 120/76 142/118 O2 Sat by Pulse 99 97 96 Oximetry 03/19/20 03/19/20 03/19/20 23:11 23:21 23:30 Temperature Pulse Rate 105 H 105 H 102 H Pulse Rate [ Anterior Bilateral Throughout] Respiratory 20 21 19 Rate Respiratory Rate [Anterior Bilateral Throughout] Blood Pressure 142/118 120/76 121/85 O2 Sat by Pulse 98 98 Oximetry 0803/19/20 03/19/20 23:41 23:49 23:51 Temperature Pulse Rate 104 H 99 H 97 H Pulse Rate [ Anterior Bilateral Throughout] Respiratory 21 23 23 Rate Respiratory Rate [Anterior Bilateral Throughout] Blood Pressure 121/85 121/85 121/85 O2 Sat by Pulse 97 97 97 Oximetry 03/20/20 03/20/20 03/20/20 00:00 00:11 00:15 Temperature 98.3 F Pulse Rate 97 H 88 89 Pulse Rate [ Anterior Bilateral Throughout] Respiratory 21 21 20 Rate Respiratory Rate [Anterior Bilateral Throughout] Blood Pressure 123/86 123/86 103/75 O2 Sat by Pulse 100 97 97 Oximetry 03/20/20 03/20/20 03/20/20 00:20 00:30 00:41 Temperature Pulse Rate 86 87 87 Pulse Rate [ Anterior Bilateral Throughout] Respiratory 19 20 23 Rate Respiratory Rate [Anterior Bilateral Throughout] Blood Pressure 103/75 104/74 104/74 O2 Sat by Pulse 97 96 97 Oximetry 03/20/20 03/20/20 03/20/20 00:51 01:00 01:11 Temperature Pulse Rate 90 86 87 Pulse Rate [ Anterior Bilateral Throughout] Respiratory 23 20 20 Rate Respiratory Rate [Anterior Bilateral Throughout] Blood Pressure 103/75 104/72 104/72 O2 Sat by Pulse 97 98 Oximetry 03/20/20 03/20/20 03/20/20 01:21 01:30 01:41 Temperature Pulse Rate 87 92 H 92 H Pulse Rate [ Anterior Bilateral Throughout] Respiratory 18 23 25 H Rate Respiratory Rate [Anterior Bilateral Throughout] Blood Pressure 105/75 111/80 111/80 O2 Sat by Pulse 98 97 98 Oximetry 03/20/20 03/20/20 03/20/20 01:51 02:00 02:11 Temperature Pulse Rate 86 84 89 Pulse Rate [ Anterior Bilateral Throughout] Respiratory 21 16 16 Rate Respiratory Rate [Anterior Bilateral Throughout] Blood Pressure 107/77 101/70 101/70 O2 Sat by Pulse 98 98 99 Oximetry 03/20/20 03/20/20 03/20/20 02:21 02:30 02:41 Temperature Pulse Rate 86 89 88 Pulse Rate [ Anterior Bilateral Throughout] Respiratory 18 19 19 Rate Respiratory Rate [Anterior Bilateral Throughout] Blood Pressure 106/76 110/72 110/72 O2 Sat by Pulse 99 100 98 Oximetry 03/20/20 03/20/20 03/20/20 02:51 03:00 03:11 Temperature Pulse Rate 87 90 90 Pulse Rate [ Anterior Bilateral Throughout] Respiratory 18 20 19 Rate Respiratory Rate [Anterior Bilateral Throughout] Blood Pressure 104/74 103/75 103/75 O2 Sat by Pulse 99 98 Oximetry 03/20/20 03/20/20 03/20/20 03:21 03:30 03:41 Temperature Pulse Rate 87 87 82 Pulse Rate [ Anterior Bilateral Throughout] Respiratory 17 20 19 Rate Respiratory Rate [Anterior Bilateral Throughout] Blood Pressure 110/76 103/74 103/74 O2 Sat by Pulse 98 99 Oximetry 03/20/20 03/20/20 03/20/20 03:51 04:00 04:11 Temperature 98.7 F Pulse Rate 85 100 H 89 Pulse Rate [ Anterior Bilateral Throughout] Respiratory 17 22 19 Rate Respiratory Rate [Anterior Bilateral Throughout] Blood Pressure 102/74 104/71 104/71 O2 Sat by Pulse 98 98 Oximetry 03/20/20 03/20/20 03/20/20 04:21 04:30 04:41 Temperature Pulse Rate 86 90 88 Pulse Rate [ Anterior Bilateral Throughout] Respiratory 20 18 17 Rate Respiratory Rate [Anterior Bilateral Throughout] Blood Pressure 102/74 108/78 108/78 O2 Sat by Pulse 98 98 98 Oximetry 03/20/20 03/20/20 03/20/20 04:51 05:00 05:11 Temperature Pulse Rate 98 H 86 92 H Pulse Rate [ Anterior Bilateral Throughout] Respiratory 12 19 16 Rate Respiratory Rate [Anterior Bilateral Throughout] Blood Pressure 107/43 110/73 110/73 O2 Sat by Pulse 100 98 98 Oximetry 03/20/20 03/20/20 03/20/20 05:21 05:30 05:41 Temperature Pulse Rate 102 H 87 86 Pulse Rate [ Anterior Bilateral Throughout] Respiratory 26 H 19 17 Rate Respiratory Rate [Anterior Bilateral Throughout] Blood Pressure 113/78 107/73 107/73 O2 Sat by Pulse 100 99 98 Oximetry 03/20/20 03/20/20 03/20/20 05:51 05:56 06:00 Temperature Pulse Rate 85 85 86 Pulse Rate [ Anterior Bilateral Throughout] Respiratory 18 19 18 Rate Respiratory Rate [Anterior Bilateral Throughout] Blood Pressure 104/68 104/68 105/72 O2 Sat by Pulse 98 99 Oximetry 03/20/20 03/20/20 03/20/20 06:11 06:21 06:30 Temperature Pulse Rate 84 86 99 H Pulse Rate [ Anterior Bilateral Throughout] Respiratory 20 20 14 Rate Respiratory Rate [Anterior Bilateral Throughout] Blood Pressure 105/72 105/71 115/80 O2 Sat by Pulse 99 99 100 Oximetry 03/20/20 03/20/20 03/20/20 06:41 06:51 07:00 Temperature Pulse Rate 96 H 89 85 Pulse Rate [ Anterior Bilateral Throughout] Respiratory 24 19 19 Rate Respiratory Rate [Anterior Bilateral Throughout] Blood Pressure 115/80 114/83 102/71 O2 Sat by Pulse 99 97 97 Oximetry 03/20/20 03/20/20 03/20/20 07:11 07:21 07:30 Temperature Pulse Rate 86 87 87 Pulse Rate [ Anterior Bilateral Throughout] Respiratory 18 17 19 Rate Respiratory Rate [Anterior Bilateral Throughout] Blood Pressure 102/71 103/70 111/75 O2 Sat by Pulse 98 98 Oximetry 03/20/20 03/20/20 03/20/20 07:52 08:00 08:08 Temperature 98.6 F Pulse Rate 87 Pulse Rate [ 100 H Anterior Bilateral Throughout] Respiratory 19 Rate Respiratory 16 Rate [Anterior Bilateral Throughout] Blood Pressure 111/75 O2 Sat by Pulse 98 Oximetry 03/20/20 09:29 Temperature Pulse Rate 98 H Pulse Rate [ Anterior Bilateral Throughout] Respiratory Rate Respiratory Rate [Anterior Bilateral Throughout] Blood Pressure 92/62 O2 Sat by Pulse Oximetry General appearance: Present: no acute distress - Respiratory Respiratory effort: normal - Cardiovascular Heart rate: 113 Rhythm: regular Extremities: abnormal (Left leg is warm with warmth extending to the proximal third of the foot. Patient has a multiphasic Doppler signal in the dorsalis pedis artery. There are continued ischemic changes to the plantar surface of the foot. The forefoot is cold and insensate with no motor function. There is the beginnings of a line of demarcation in the midfoot. He does have sensation in the hindfoot.) - Labs CBC & Chem 7: 03/20/20 05:12 03/20/20 05:12 Labs: Abnormal lab results 03/19/20 03/19/20 03/19/20 Range/Units 15:40 18:23 21:32 WBC (4.5-11.0) K/mm3 RBC (3.65-5.03) M/mm3 Hgb (11.8-15.2) gm/dl Hct (35.5-45.6) % [place] % (Auto) (0.0-7.3) % [place] # (0.0-0.8) K/mm3 Seg Neutrophils % (40.0-70.0) % Seg Neutrophils # (1.8-7.7) K/mm3 Heparin Anti-Xa Level < 0.10 L (0.3-0.7) U.I./ml ABG pO2 (80.0-90.0) mm Hg ABG HCO3 18.3 L (20.0-26.0) mmol/L ABG O2 Saturation (95.0-99.0) % ABG Base Excess -5.4 L (-2.0-3.0) mmol/L ABG Hemoglobin 12.2 L (14.0-18.0) gm/dl Oxyhemoglobin 94.6 L (95.0-99.0) % Sodium (137-145) mmol/L Carbon Dioxide (22-30) mmol/L BUN (9-20) mg/dL Glucose (75-100) mg/dL POC Glucose 348 H (70-105) Troponin T (0.00-0.029) ng/mL 03/20/20 03/20/20 03/20/20 Range/Units 04:35 05:12 05:12 WBC 11.1 H (4.5-11.0) K/mm3 RBC 3.63 L (3.65-5.03) M/mm3 Hgb 11.0 L (11.8-15.2) gm/dl Hct 32.7 L D (35.5-45.6) % [place] % (Auto) 8.1 H (0.0-7.3) % [place] # 0.9 H (0.0-0.8) K/mm3 Seg Neutrophils % 75.8 H (40.0-70.0) % Seg Neutrophils # 8.4 H (1.8-7.7) K/mm3 Heparin Anti-Xa Level 0.28 L (0.3-0.7) U.I./ml ABG pO2 68.3 L (80.0-90.0) mm Hg ABG HCO3 (20.0-26.0) mmol/L ABG O2 Saturation 94.3 L (95.0-99.0) % ABG Base Excess (-2.0-3.0) mmol/L ABG Hemoglobin 7.1 L (14.0-18.0) gm/dl Oxyhemoglobin 92.3 L (95.0-99.0) % Sodium (137-145) mmol/L Carbon Dioxide (22-30) mmol/L BUN (9-20) mg/dL Glucose (75-100) mg/dL POC Glucose (70-105) Troponin T (0.00-0.029) ng/mL 03/20/20 03/20/20 Range/Units 05:12 07:49 WBC (4.5-11.0) K/mm3 RBC (3.65-5.03) M/mm3 Hgb (11.8-15.2) gm/dl Hct (35.5-45.6) % [place] % (Auto) (0.0-7.3) % [place] # (0.0-0.8) K/mm3 Seg Neutrophils % (40.0-70.0) % Seg Neutrophils # (1.8-7.7) K/mm3 Heparin Anti-Xa Level (0.3-0.7) U.I./ml ABG pO2 (80.0-90.0) mm Hg ABG HCO3 (20.0-26.0) mmol/L ABG O2 Saturation (95.0-99.0) % ABG Base Excess (-2.0-3.0) mmol/L ABG Hemoglobin (14.0-18.0) gm/dl Oxyhemoglobin (95.0-99.0) % Sodium 134 L (137-145) mmol/L Carbon Dioxide 21 L (22-30) mmol/L BUN 23 H (9-20) mg/dL Glucose 275 H (75-100) mg/dL POC Glucose 294 H (70-105) Troponin T 3.200 H* D (0.00-0.029) ng/mL Medications & Allergies - Medications Allergies/Adverse Reactions: Allergies No Known Allergies Allergy (Unverified 03/18/20 15:17) Active Medications: Generic Name Dose Route Start Last Admin Trade Name Freq PRN Reason Stop Dose Admin Arformoterol Tartrate 15 mcg 03/19/20 20:00 03/20/20 08:01 Brovana Nebu IH 15 mcg Q12HRT LOI Administration Aspirin 81 mg 03/19/20 10:00 03/20/20 09:28 Halfprin Ec PO 81 mg QDAY LOI Administration Atorvastatin Calcium 40 mg 03/19/20 22:00 03/19/20 22:00 Lipitor PO 40 mg QHS LOI Administration Budesonide 0.5 mg 03/19/20 20:00 03/20/20 08:01 Pulmicort IH 0.5 mg Q12HRT LOI Administration Clopidogrel Bisulfate 75 mg 03/19/20 10:00 03/20/20 09:28 Plavix PO 75 mg QDAY LOI Administration Dextrose 50 ml 03/18/20 22:21 D50w (25gm) Syringe IV Q30MIN PRN Hypoglycemia Protocol Diphenhydramine HCl 25 mg 03/19/20 12:44 Benadryl IV Q4H PRN Itching Hydromorphone/Sodium Chloride 0 mg 03/19/20 13:00 03/19/20 15:41 Dilaudid Make Up Editor 6mg/30ml IV 0.3 mg DIRECT LOI Administration Protocol Heparin Sodium/Sodium Chloride 25,000 unit in 500 mls @ 30 mls/hr 03/18/20 19:00 03/20/20 07:29 Heparin/ 0.45% Nacl-25,000 Unit/500 Ml IV 1,950 units/hr TITR LOI 39 mls/hr Titration Protocol 1,500 UNITS/HR Sodium Chloride 1,000 mls @ 75 mls/hr 03/19/20 10:19 03/20/20 08:31 Nacl 0.9% 1000 Ml IV 75 mls/hr DIRECT LOI Administration Sodium Chloride 500 mls @ 20 mls/hr 03/19/20 16:00 Nacl 0.9% 500 Ml IV 03/20/20 16:59 ONCE ONE Insulin Human Lispro 0 unit 03/19/20 07:30 03/20/20 09:27 Humalog SUB-Q Not Given ACHS OLI Protocol Magnesium Hydroxide 30 ml 03/18/20 22:21 Milk Of Magnesia PO Q4H PRN Constipation Metoprolol Tartrate 50 mg 03/19/20 22:00 03/20/20 09:29 Metoprolol PO Not Given BID LOI Naloxone HCl 0.1 mg 03/19/20 12:44 Naloxone IV Q2MIN PRN Res Rate </= 8 or 02 SAT < 92% Ondansetron HCl 4 mg 03/18/20 22:21 Zofran IV Q8H PRN Nausea And Vomiting Pantoprazole Sodium 40 mg 03/20/20 10:00 03/20/20 09:28 Protonix PO 40 mg BID LOI Administration Sodium Chloride 10 ml 03/19/20 10:00 03/20/20 09:30 Sodium Chloride Flush Syringe 10 Ml IV 10 ml BID LOI Administration Sodium Chloride 10 ml 03/18/20 22:21 Sodium Chloride Flush Syringe 10 Ml IV PRN PRN LINE FLUSH HEART Score - HEART Score Troponin: Troponin T 3.200 ng/mL (0.00-0.029) H* D 03/20/20 05:12
[2020-03-20] MEDS: HEPARIN/ 0.45% NACL DRIP 25,000 UNIT/500 ML BAG IV SCH ×2 (10:02→23:00)
--- NOTE | 2020-03-20 10:55 | Progress Note ---
Assessment and Plan tte reviewed - EF 30-35%, LV mildly dilated, mid inferolateral, mid inferior, apical lateral and apical inferior wall segments are akinetic. No current clinical evidence of acutely decompensated HF. ECG is noted to be abnormal although not c/w STEMI. Ozzie elevation appears c/w NSTEMI type II, Ozzie trending downwards, pt denies any occurrence of chest pain or other cardiac complaints. Agree with heparin gtt (recommend continuation x48Hr from cardiac standpoint), ASA, plavix, lopressor and statin. Consider addition of ACEI/ARB in setting of CMP if BPs permit. Will plan for stress test once medically stabilized - could be accomplished as OP. Per vascular team, it is still likely that he will require below-knee amputation. The patient has been seen in conjunction with Dr. Treviño who agrees with the assessment and plan of care. - Patient Problems (1) PAD (peripheral artery disease) Current Visit: Yes Status: Chronic (2) Abnormal ECG Current Visit: Yes Status: Acute (3) NSTEMI (non-ST elevated myocardial infarction) Current Visit: Yes Status: Acute (4) CAD (coronary artery disease) Current Visit: Yes Status: Chronic (5) History of coronary artery bypass graft Current Visit: Yes Status: Chronic (6) HTN (hypertension) Current Visit: Yes Status: Chronic (7) History of CVA (cerebrovascular accident) Current Visit: Yes Status: Chronic (8) Smoker Current Visit: Yes Status: Chronic (9) Cardiomyopathy Current Visit: Yes Status: Acute Subjective Date of service: 03/20/20 Principal diagnosis: Compartment syndrome left lower extremity Interval history: pt resting in bed, no current cardiac complaints. in SR on tele HR 90s. Objective Last Vital Signs Temp 98.6 F 03/20/20 08:00 Pulse 98 H 03/20/20 09:29 Resp 16 03/20/20 08:08 BP 92/62 03/20/20 09:29 Pulse Ox 98 03/20/20 07:52 - Physical Examination General: No Apparent Distress HEENT: Positive: PERRL, Normocephaly, Mucus Membranes Moist Neck: Positive: neck supple, trachea midline Cardiac: Positive: Reg Rate and Rhythm, S1/S2 Lungs: Positive: Decreased Breath Sounds Neuro: Positive: Grossly Intact Abdomen: Negative: Tender Skin: Negative: Rash Musculoskeletal: other (LLE pain, numbness, pale) Extremities: Present: Other (LLE pain, numbness, pale) - Labs and Meds CBC 03/20/20 Range/Units 05:12 WBC 11.1 H (4.5-11.0) K/mm3 RBC 3.63 L (3.65-5.03) M/mm3 Hgb 11.0 L (11.8-15.2) gm/dl Hct 32.7 L D (35.5-45.6) % Plt Count 225 (140-440) K/mm3 Lymph # 1.5 (1.2-5.4) K/mm3 [place] # 0.9 H (0.0-0.8) K/mm3 Eos # 0.1 (0.0-0.4) K/mm3 Baso # 0.1 (0.0-0.1) K/mm3 Comprehensive Metabolic Panel 03/20/20 Range/Units 05:12 Sodium 134 L (137-145) mmol/L Potassium 4.8 (3.6-5.0) mmol/L Chloride 98.6 (98-107) mmol/L Carbon Dioxide 21 L (22-30) mmol/L BUN 23 H (9-20) mg/dL Creatinine 1.0 (0.8-1.3) mg/dL Glucose 275 H (75-100) mg/dL Calcium 8.6 (8.4-10.2) mg/dL - Imaging and Cardiology EKG: report reviewed, image reviewed Echo: pending, report reviewed (tte done 12/2014 showed EF 55-60%, no significant abnormalities. ) - EKG Sinus rhythms and dysrhythmias: sinus rhythm Repolarization changes or abnormalities: nonspecific abnormality, ST segment, and/or T wave
--- NOTE | 2020-03-20 10:56 | Progress Note ---
Assessment and Plan Assessment and plan: --Acute left lower extremity ischemia Current Visit: Yes Status: Acute 03/19/2020 status post endovascular revascularization 03/19/2020 s/p left lower extremity 4 compartment fasciotomy Management per vascular --Non-ST elevation DC : Current Visit: Yes Status: Acute Patient has history of CABG patient denies any chest pain. Management per cardiology --Acute systolic CHF; EF 30-35%% Current Visit: Yes Status: Acute Beta-blockers, BIJAN inhibitor, diuretics if needed Cardiology following -- Hyperglycemia due to diabetes mellitus Current Visit: Yes Status: Acute Accu-Chek sliding scale coverage ADA diet Long-acting insulin as needed, check A1c --Ongoing tobacco use Current Visit: Yes Status: Acute Smoking cessation nicotine patch as needed --DVT prophylaxis Current Visit: Yes Status: Acute Patient currently on anticoagulation. -- Full code status Current Visit: Yes Status: Acute Patient is on heparin drip Closely monitor patient and adjust management as needed Plan of care reviewed with the patient and his nurse Critical care time 35 min The high probability of a clinically significant, sudden or life threatening deterioration of the [ circulatory, vascular and metabolic] system(s) required my full and direct attention, intervention and personal management. The aggregate critical care time was [35] minutes. This time is in addition to time spent ,performing reported procedures but includes the following: [x] Data Review and interpretation [x] Patient assessment and monitoring of vital signs [x] Documentation [x] Medication orders and management Disposition; follow vascular, cardiology recommendations 54-year-old male with known history of CVA without any residual deficits, hypertension ,diabetes mellitus, coronary artery disease with CABG x2, pulmonary embolism and DVT presented to the emergency room today with a complaint of left foot pain and discoloration for about a week.His leg is cool from the knee down and cold and mottled from the lower calf down. He has an insensate foot from the midfoot down with no ability to move the toes. This has been present since he woke up. Last time he had function in his foot was last night. Left lower extremity ischemia, vascular evaluated, status post fasciotomy and revascularization History Interval history: I have seen and examined the patient in ICU Patient's chart and medications reviewed Patient sleeping easily awakens no new complaints Vital signs reviewed Hospitalist Physical - Constitutional Vitals: Temp Pulse Resp BP Pulse Ox 98.6 F 98 H 16 92/62 98 08/05/20 08:00 03/20/20 09:29 03/20/20 08:08 03/20/20 09:29 03/20/20 07:52 General appearance: Present: no acute distress, well-nourished, obese - EENT Eyes: Present: PERRL, EOM intact - Neck Neck: Present: supple, normal ROM - Respiratory Respiratory effort: normal Respiratory: bilateral: diminished, negative: rales, rhonchi, wheezing - Cardiovascular Rhythm: regular Heart Sounds: Present: S1 & S2 - Extremities Extremities: abnormal (Left foot ischemia, mainly forefoot) Extremity abnormal: edema - Abdominal General gastrointestinal: soft, non-tender, non-distended, normal bowel sounds - Integumentary Integumentary: Present: clear, warm - Psychiatric Psychiatric: appropriate mood/affect, cooperative - Neurologic Neurologic: CNII-XII intact, moves all extremities HEART Score - HEART Score Troponin: Troponin T 3.200 ng/mL (0.00-0.029) H* D 03/20/20 05:12 Results - Labs CBC & Chem 7: 03/20/20 05:12 03/20/20 05:12 Labs: Laboratory Last Values WBC 11.1 K/mm3 (4.5-11.0) H 03/20/20 05:12 RBC 3.63 M/mm3 (3.65-5.03) L 03/20/20 05:12 Hgb 11.0 gm/dl (11.8-15.2) L 03/20/20 05:12 Hct 32.7 % (35.5-45.6) L D 03/20/20 05:12 MCV 90 fl (84-94) 03/20/20 05:12 MCH 30 pg (28-32) 03/20/20 05:12 MCHC 34 % (32-34) 03/20/20 05:12 RDW 13.3 % (13.2-15.2) 03/20/20 05:12 Plt Count 225 K/mm3 (140-440) 03/20/20 05:12 Lymph % (Auto) 14.0 % (13.4-35.0) 03/20/20 05:12 Thomas % (Auto) 8.1 % (0.0-7.3) H 03/20/20 05:12 Eos % (Auto) 1.2 % (0.0-4.3) 03/20/20 05:12 Baso % (Auto) 0.9 % (0.0-1.8) 03/20/20 05:12 Lymph # 1.5 K/mm3 (1.2-5.4) 03/20/20 05:12 Thomas # 0.9 K/mm3 (0.0-0.8) H 03/20/20 05:12 Eos # 0.1 K/mm3 (0.0-0.4) 03/20/20 05:12 Baso # 0.1 K/mm3 (0.0-0.1) 03/20/20 05:12 Seg Neutrophils % 75.8 % (40.0-70.0) H 03/20/20 05:12 Seg Neutrophils # 8.4 K/mm3 (1.8-7.7) H 03/20/20 05:12 PT 12.7 Sec. (12.2-14.9) 03/19/20 08:08 INR 0.94 (0.87-1.13) 03/19/20 08:08 APTT 27.7 Sec. (24.2-36.6) 03/18/20 18:28 Heparin Anti-Xa Level 0.28 U.I./ml (0.3-0.7) L 03/20/20 05:12 ABG pH 7.405 pH Units (7.350-7.450) 03/20/20 04:35 ABG pCO2 40.3 mm Hg 03/20/20 04:35 ABG pO2 68.3 mm Hg (80.0-90.0) L 03/20/20 04:35 ABG HCO3 24.6 mmol/L (20.0-26.0) 03/20/20 04:35 ABG O2 Saturation 94.3 % (95.0-99.0) L 03/20/20 04:35 ABG O2 Content 9.3 (0.0-44) 03/20/20 04:35 ABG Base Excess -0.1 mmol/L (-2.0-3.0) 03/20/20 04:35 ABG Hemoglobin 7.1 gm/dl (14.0-18.0) L 03/20/20 04:35 ABG Carboxyhemoglobin 1.8 % (0.0-5.0) 03/20/20 04:35 ABG Methemoglobin 0.4 % (0.0-1.5) 03/20/20 04:35 Oxyhemoglobin 92.3 % (95.0-99.0) L 03/20/20 04:35 FiO2 35 % 03/20/20 04:35 Sodium 134 mmol/L (137-145) L 03/20/20 05:12 Potassium 4.8 mmol/L (3.6-5.0) 03/20/20 05:12 Chloride 98.6 mmol/L (98-107) 03/20/20 05:12 Carbon Dioxide 21 mmol/L (22-30) L 03/20/20 05:12 Anion Gap 19 mmol/L 03/20/20 05:12 BUN 23 mg/dL (9-20) H 03/20/20 05:12 Creatinine 1.0 mg/dL (0.8-1.3) 03/20/20 05:12 Estimated GFR > 60 ml/min 03/20/20 05:12 BUN/Creatinine Ratio 23 % 03/20/20 05:12 Glucose 275 mg/dL (75-100) H 03/20/20 05:12 POC Glucose 294 (70-105) H 03/20/20 07:49 Hemoglobin A1c 11.0 % (4-6) H 03/18/20 22:21 Calcium 8.6 mg/dL (8.4-10.2) 03/20/20 05:12 Total Creatine Kinase 7255 units/L (55-170) H 03/19/20 08:08 CK-MB (CK-2) 79.3 ng/mL (0.0-4.0) H 03/19/20 08:08 CK-MB (CK-2) Rel Index 1.0 (0-4) 03/19/20 08:08 Troponin T 3.200 ng/mL (0.00-0.029) H* D 03/20/20 05:12 Triglycerides 188 mg/dL (2-149) H 03/18/20 18:28 Cholesterol 199 mg/dL (50-199) 03/18/20 18:28 LDL Cholesterol Direct 141 mg/dL (50-130) H 03/18/20 18:28 HDL Cholesterol 47 mg/dL (40-59) 03/18/20 18:28 Cholesterol/HDL Ratio 4.23 % 03/18/20 18:28 Blood Type B POSITIVE 03/18/20 18:28 Antibody Screen Negative 03/18/20 18:28 - Diagnostic Impressions Diagnostic Impressions: Echocardiogram 03/19/20 12:49 Transthoracic Echocardiogram Indication: CAD and Abnormal EKG HR: 110 Conclusions *The study is technically limited due to patient body habitus. *The left ventricular chamber size is mildly dilated. *Global left ventricular systolic function is moderate to severely decreased. *The estimated ejection fraction is 30-35%. *The basal inferolateral, and basal inferior wall segments are normal. *The mid inferolateral, mid inferior, apical lateral, and apical inferior wall segments are akinetic. *The left atrial chamber size is normal. Findings Procedure Info: The study is technically limited due to patient body habitus. The study was technically limited due to the patient's inability to lay in the left lateral decubitus position. Left Ventricle: The left ventricular chamber size is mildly dilated. Global left ventricular systolic function is moderate to severely decreased. The estimated ejection fraction is 30-35%. The basal inferolateral, and basal inferior wall segments are normal. The mid inferolateral, mid inferior, apical lateral, and apical inferior wall segments are akinetic. Left Atrium: The left atrial chamber size is normal. Right Ventricle: The right ventricle is not well visualized. Right Atrium: The right atrium is not well visualized. The right atrial cavity size is normal. Aortic Valve: The aortic valve is trileaflet. Mitral Valve: The mitral valve leaflets are moderately thickened. There is mild mitral regurgitation. Tricuspid Valve: The tricuspid valve is not well visualized. There is trace tricuspid regurgitation. Pulmonic Valve: The pulmonic valve is not well visualized. Pericardium: There is no pericardial effusion. Aorta: The aorta appears normal. Venous: The venous system is not well visualized. Contrast: Definity was used to optimize study. Measurements Chambers 2D Name Value Normal Range IVSd (2D) 0.94 cm (0.6 - 1.1) LVPWd (2D) 0.94 cm (0.6 - 1.1) LVIDd (2D) 6.15 cm (3.7 - 5.6) LVIDs (2D) 5.2 cm (2 - 3.8) LV FS (2D) 15.5 % - EF Teichholz (2D) 32.08 % - Ao root diameter (2D) 2.77 cm (2 - 3.7) Volumes/Mass Name Value Normal Range LA ESV SP 4CH (A/L) 73.77 ml - LA ESV SP 2CH (A/L) 66.45 ml - LA ESV BP (A/L) 71.61 ml - LA ESV BP (A/L) index 30.6 ml/m2 - LA ESV SP 4CH (MOD) 72.55 ml - LA ESV SP 2CH (MOD) 65.34 ml - LA ESV BP (MOD) 70.27 ml - LA ESV BP (MOD) index 30.03 ml/m2 - Diastolic/Systolic Function Name Value Normal Range MV E-wave Vmax 0.85 m/sec - MV deceleration time 69.14 msec - MV A-wave Vmax 0.89 m/sec - MV E:A ratio 0.95 ratio - Aortic Valve Name Value Normal Range AV Vmax 0.96 m/sec - AV VTI 11.83 cm - AV peak gradient 3.68 mmHg - AV mean gradient 1.6 mmHg - LVOT diameter 2.19 cm - LVOT Vmax 0.86 m/sec - LVOT VTI 13.33 cm - LVOT peak gradient 2.96 mmHg - LVOT mean gradient 1.48 mmHg - SV LVOT 50.08 ml - DEYA (continuity Vmax) 3.37 cm2 - DEYA (continuity VTI) 4.23 cm2 - Ascending Ao 2.92 cm - Pulmonic Valve/Qp:Qs Name Value Normal Range PV Vmax 1.08 m/sec - PV VTI 15.88 cm - PV peak gradient 4.7 mmHg - PV mean gradient 2.18 mmHg - RVOT Vmax 0.82 m/sec - RVOT VTI 11.48 cm - RVOT peak gradient 2.67 mmHg - Wallmotion BAS Not Seen BA Not Seen BAL Not Seen BAY Normal BI Normal BIS Not Seen MAS Not Seen MA Not Seen MAL Not Seen MIL Akinetic DC Akinetic MIS Not Seen Not Seen AA Not Seen AL Akinetic AI Akinetic APEX Not Seen Tyson/IV: IV Catheter Type [Right INT / Saline Lock Antecubital] IV Catheter Type [Left INT / Saline Lock Antecubital] Active Medications - Current Medications Current Medications: Generic Name Dose Route Start Last Admin Trade Name Freq PRN Reason Stop Dose Admin Arformoterol Tartrate 15 mcg 03/19/20 20:00 03/20/20 08:01 Brovana Nebu IH 15 mcg Q12HRT LOI Administration Aspirin 81 mg 03/19/20 10:00 03/20/20 09:28 Halfprin Ec PO 81 mg QDAY LOI Administration Atorvastatin Calcium 40 mg 03/19/20 22:00 03/19/20 22:00 Lipitor PO 40 mg QHS LOI Administration Budesonide 0.5 mg 03/19/20 20:00 03/20/20 08:01 Pulmicort IH 0.5 mg Q12HRT LOI Administration Clopidogrel Bisulfate 75 mg 03/19/20 10:00 03/20/20 09:28 Plavix PO 75 mg QDAY LOI Administration Dextrose 50 ml 03/18/20 22:21 D50w (25gm) Syringe IV Q30MIN PRN Hypoglycemia Protocol Diphenhydramine HCl 25 mg 03/19/20 12:44 Benadryl IV Q4H PRN Itching Hydromorphone/Sodium Chloride 0 mg 03/19/20 13:00 03/19/20 15:41 Dilaudid Dressmaking Teacher 6mg/30ml IV 0.3 mg DIRECT LOI Administration Protocol Heparin Sodium/Sodium Chloride 25,000 unit in 500 mls @ 30 mls/hr 03/18/20 19:00 03/20/20 10:02 Heparin/ 0.45% Nacl-25,000 Unit/500 Ml IV 1,950 units/hr TITR LOI 39 mls/hr Administration Protocol 1,500 UNITS/HR Sodium Chloride 1,000 mls @ 75 mls/hr 03/19/20 10:19 03/20/20 08:31 Nacl 0.9% 1000 Ml IV 75 mls/hr DIRECT LOI Administration Sodium Chloride 500 mls @ 20 mls/hr 03/19/20 16:00 Nacl 0.9% 500 Ml IV 03/20/20 16:59 ONCE ONE Insulin Human Lispro 0 unit 03/19/20 07:30 03/20/20 09:27 Humalog SUB-Q Not Given ACHS [facility] Protocol Magnesium Hydroxide 30 ml 03/18/20 22:21 Milk Of Magnesia PO Q4H PRN Constipation Metoprolol Tartrate 50 mg 03/19/20 22:00 03/20/20 09:29 Metoprolol PO Not Given BID LOI Naloxone HCl 0.1 mg 03/19/20 12:44 Naloxone IV Q2MIN PRN Res Rate </= 8 or 02 SAT < 92% Ondansetron HCl 4 mg 03/18/20 22:21 Zofran IV Q8H PRN Nausea And Vomiting Pantoprazole Sodium 40 mg 03/20/20 10:00 03/20/20 09:28 Protonix PO 40 mg BID LOI Administration Sodium Chloride 10 ml 03/19/20 10:00 03/20/20 09:30 Sodium Chloride Flush Syringe 10 Ml IV 10 ml BID LOI Administration Sodium Chloride 10 ml 03/18/20 22:21 Sodium Chloride Flush Syringe 10 Ml IV PRN PRN LINE FLUSH Nutrition/Malnutrition Assess - Dietary Evaluation Nutrition/Malnutrition Findings: Nutrition Notes Start: 03/19/20 11:59 Freq: Status: Active Protocol: Document 03/19/20 11:59 LM (Rec: 03/19/20 12:01 LM [id number]) Nutrition Notes Need for Assessment generated from: MD Order,Education Initial or Follow up Brief Note Subjective/Other Information MD consult for diet education. Pt ate 100% of breakfast and stated he has had no wt loss. Pt has had diet education in the past but was open to having more education. #1 Nutrition Diagnosis Food and nutrition-related knowledge deficit Etiology Limited prior DM diet education As Evidenced by Signs and Symptoms pt wanting more education, BG 313 Nutrition Intervention Teaching Recipient Patient Learning Readiness Fair Teaching Methods Discussion,Handout Response to Teaching Verbalize understanding Education Handouts Provided Carbohydrate Counting for People with DM Barriers to Learning Motivation RD phone number provided Yes Patient aware of follow up options Yes Revisit per MD consult or patient Sign Off request:
[2020-03-20] MEDS: HYDROmorphone/NS 6 MG/30 ML PCA INJ IV SCH (13:33)
--- NOTE | 2020-03-20 14:56 | Progress Note ---
Assessment and Plan Acute limb ischemia S/P revascularization surgery. Obstructive sleep apnea. History of chronic obstructive pulmonary disease. Acute hypoxemic respiratory failure. Diabetes. History of coronary artery disease. Non-ST elevation myocardial infarction. Acute coronary syndrome. History of cerebrovascular accident. - continue antiplatelet therapy with heparin IV and Plavix - further surgical intervention per Vascular team - accuchecks with glycemic control per SSI (While critically ill target blood glucose of 140-180 mg/dL; avoid hypoglycemia) - wean supplemental oxygen for target O2 sat's > 90% acutely - prn bronchodilators with pulmonary hygiene per RT - avoid benzodiazepine's, reduce the possibility of delirium - AB's per surgery rec's (No S&S of overwhelming sepsis) - prn analgesia per pain score - Maintenance of sleep-wake cycle, avoid delirium - aspiration precautions - G.I. & VTE prophylaxis - PT/OT/ROM exercises - mobility protocols for pressure ulcer prophylaxis - Monitor hemodynamics closely - continue other care per attending / other consultants - discharge planning ongoing concurrently .... Re-evaluate in am & prn Subjective Date of service: 03/20/20 Principal diagnosis: Compartment syndrome left lower extremity Interval history: Patient is seen today for: Acute limb ischemia S/P revascularization surgery; STARR; COPD; Acute hypoxemic respiratory failure; DM II; NSTEMI; H/O CVA Seen and examined at bedside; 24hour events reviewed; nursing and respiratory care staff consulted; no adverse overnight events reported to me; resting peacefully in bed; remains on IV heparin drip; still with cold left foot; he denies acute chest pains or palpitations Objective Vital Signs - 12hr 03/20/20 03/20/20 03/20/20 03:00 03:11 03:21 Temperature Pulse Rate 90 90 87 Pulse Rate [ Anterior Bilateral Throughout] Pulse Rate [ From Monitor] Respiratory 20 19 17 Rate Respiratory Rate [Anterior Bilateral Throughout] Blood Pressure 103/75 103/75 110/76 O2 Sat by Pulse 98 98 Oximetry 03/20/20 03/20/20 03/20/20 03:30 03:41 03:51 Temperature Pulse Rate 87 82 85 Pulse Rate [ Anterior Bilateral Throughout] Pulse Rate [ From Monitor] Respiratory 20 19 17 Rate Respiratory Rate [Anterior Bilateral Throughout] Blood Pressure 103/74 103/74 102/74 O2 Sat by Pulse 99 98 Oximetry 03/20/20 03/20/20 03/20/20 04:00 04:11 04:21 Temperature 98.7 F Pulse Rate 100 H 89 86 Pulse Rate [ Anterior Bilateral Throughout] Pulse Rate [ From Monitor] Respiratory 22 19 20 Rate Respiratory Rate [Anterior Bilateral Throughout] Blood Pressure 104/71 104/71 102/74 O2 Sat by Pulse 98 98 Oximetry 03/20/20 03/20/20 03/20/20 04:30 04:41 04:51 Temperature Pulse Rate 90 88 98 H Pulse Rate [ Anterior Bilateral Throughout] Pulse Rate [ From Monitor] Respiratory 18 17 12 Rate Respiratory Rate [Anterior Bilateral Throughout] Blood Pressure 108/78 108/78 107/43 O2 Sat by Pulse 98 98 100 Oximetry 03/20/20 03/20/20 03/20/20 05:00 05:11 05:21 Temperature Pulse Rate 86 92 H 102 H Pulse Rate [ Anterior Bilateral Throughout] Pulse Rate [ From Monitor] Respiratory 19 16 26 H Rate Respiratory Rate [Anterior Bilateral Throughout] Blood Pressure 110/73 110/73 113/78 O2 Sat by Pulse 98 98 100 Oximetry 03/20/20 03/20/20 03/20/20 05:30 05:41 05:51 Temperature Pulse Rate 87 86 85 Pulse Rate [ Anterior Bilateral Throughout] Pulse Rate [ From Monitor] Respiratory 19 17 18 Rate Respiratory Rate [Anterior Bilateral Throughout] Blood Pressure 107/73 107/73 104/68 O2 Sat by Pulse 99 98 98 Oximetry 03/20/20 03/20/20 03/20/20 05:56 06:00 06:11 Temperature Pulse Rate 85 86 84 Pulse Rate [ Anterior Bilateral Throughout] Pulse Rate [ From Monitor] Respiratory 19 18 20 Rate Respiratory Rate [Anterior Bilateral Throughout] Blood Pressure 104/68 105/72 105/72 O2 Sat by Pulse 99 99 Oximetry 03/20/20 03/20/20 03/20/20 06:21 06:30 06:41 Temperature Pulse Rate 86 99 H 96 H Pulse Rate [ Anterior Bilateral Throughout] Pulse Rate [ From Monitor] Respiratory 20 14 24 Rate Respiratory Rate [Anterior Bilateral Throughout] Blood Pressure 105/71 115/80 115/80 O2 Sat by Pulse 99 100 99 Oximetry 03/20/20 03/20/20 03/20/20 06:51 07:00 07:11 Temperature Pulse Rate 89 85 86 Pulse Rate [ Anterior Bilateral Throughout] Pulse Rate [ From Monitor] Respiratory 19 19 18 Rate Respiratory Rate [Anterior Bilateral Throughout] Blood Pressure 114/83 102/71 102/71 O2 Sat by Pulse 97 97 98 Oximetry 03/20/20 03/20/20 03/20/20 07:21 07:30 07:41 Temperature Pulse Rate 87 87 89 Pulse Rate [ Anterior Bilateral Throughout] Pulse Rate [ From Monitor] Respiratory 17 19 20 Rate Respiratory Rate [Anterior Bilateral Throughout] Blood Pressure 103/70 111/75 111/75 O2 Sat by Pulse 98 99 Oximetry 03/20/20 03/20/20 03/20/20 07:51 07:52 08:00 Temperature 98.6 F Pulse Rate 90 87 88 Pulse Rate [ Anterior Bilateral Throughout] Pulse Rate [ 88 From Monitor] Respiratory 18 19 20 Rate Respiratory Rate [Anterior Bilateral Throughout] Blood Pressure 107/78 111/75 108/76 O2 Sat by Pulse 99 98 100 Oximetry 03/20/20 03/20/20 03/20/20 08:08 08:11 08:21 Temperature Pulse Rate 100 H 106 H Pulse Rate [ 100 H Anterior Bilateral Throughout] Pulse Rate [ From Monitor] Respiratory 19 23 Rate Respiratory 16 Rate [Anterior Bilateral Throughout] Blood Pressure 108/76 118/81 O2 Sat by Pulse 100 99 Oximetry 03/20/20 03/20/20 03/20/20 08:30 08:41 08:51 Temperature Pulse Rate 110 H 111 H 102 H Pulse Rate [ Anterior Bilateral Throughout] Pulse Rate [ From Monitor] Respiratory 25 H 26 H 21 Rate Respiratory Rate [Anterior Bilateral Throughout] Blood Pressure 111/84 111/84 104/71 O2 Sat by Pulse 94 97 Oximetry 03/20/20 03/20/20 03/20/20 09:00 09:11 09:21 Temperature Pulse Rate 103 H 103 H 102 H Pulse Rate [ Anterior Bilateral Throughout] Pulse Rate [ From Monitor] Respiratory 24 23 23 Rate Respiratory Rate [Anterior Bilateral Throughout] Blood Pressure 95/65 111/84 92/62 O2 Sat by Pulse 95 95 Oximetry 03/20/20 03/20/20 03/20/20 09:29 09:30 09:41 Temperature Pulse Rate 98 H 100 H 110 H Pulse Rate [ Anterior Bilateral Throughout] Pulse Rate [ From Monitor] Respiratory 22 26 H Rate Respiratory Rate [Anterior Bilateral Throughout] Blood Pressure 92/62 103/68 103/68 O2 Sat by Pulse 94 Oximetry 08/05/20 08/05/20 08/05/20 09:51 10:00 10:11 Temperature Pulse Rate 102 H 101 H 99 H Pulse Rate [ Anterior Bilateral Throughout] Pulse Rate [ From Monitor] Respiratory 26 H 25 H 22 Rate Respiratory Rate [Anterior Bilateral Throughout] Blood Pressure 104/76 102/72 102/72 O2 Sat by Pulse 96 94 96 Oximetry 03/20/20 03/20/20 03/20/20 10:21 10:30 10:41 Temperature Pulse Rate 101 H 96 H 98 H Pulse Rate [ Anterior Bilateral Throughout] Pulse Rate [ From Monitor] Respiratory 20 20 21 Rate Respiratory Rate [Anterior Bilateral Throughout] Blood Pressure 101/73 110/70 102/72 O2 Sat by Pulse 97 98 98 Oximetry 03/20/20 03/20/20 03/20/20 10:51 11:00 11:11 Temperature Pulse Rate 97 H 99 H 104 H Pulse Rate [ Anterior Bilateral Throughout] Pulse Rate [ From Monitor] Respiratory 22 22 24 Rate Respiratory Rate [Anterior Bilateral Throughout] Blood Pressure 115/75 107/76 107/76 O2 Sat by Pulse 99 99 99 Oximetry 03/20/20 03/20/20 03/20/20 11:21 11:30 11:41 Temperature Pulse Rate 101 H 100 H 110 H Pulse Rate [ Anterior Bilateral Throughout] Pulse Rate [ From Monitor] Respiratory 26 H 25 H 23 Rate Respiratory Rate [Anterior Bilateral Throughout] Blood Pressure 117/80 116/72 116/72 O2 Sat by Pulse 99 98 99 Oximetry 03/20/20 03/20/20 03/20/20 11:51 12:00 12:05 Temperature 98.6 F Pulse Rate 101 H 127 H 128 H Pulse Rate [ Anterior Bilateral Throughout] Pulse Rate [ 127 H From Monitor] Respiratory 25 H 32 H Rate Respiratory Rate [Anterior Bilateral Throughout] Blood Pressure 103/73 125/83 125/83 O2 Sat by Pulse 99 97 Oximetry 03/20/20 03/20/20 03/20/20 12:11 12:21 12:30 Temperature Pulse Rate 132 H 120 H 99 H Pulse Rate [ Anterior Bilateral Throughout] Pulse Rate [ From Monitor] Respiratory 26 H 30 H 21 Rate Respiratory Rate [Anterior Bilateral Throughout] Blood Pressure 125/83 118/85 107/75 O2 Sat by Pulse 95 94 94 Oximetry Constitutional: appears uncomfortable, other (middle aged obese male with mildly increased respiratory effort at rest) Eyes: non-icteric ENT: oropharynx moist Neck: supple, no lymphadenopathy, no JVD Effort: mildly labored Ascultation: Bilateral: clear, diminished breath sounds Percussion: Bilateral: not dull Cardiovascular: regular rate and rhythm Gastrointestinal: normoactive bowel sounds, soft, non-tender, non-distended (protuberant) Integumentary: rash, other (cool left leg plantar surface) Extremities: cool, edema, other (dressing to left leg post fasciotomy) Neurologic: normal mental status, non-focal exam, pupils equal and round, motor strength normal and (limited by pasin in left leg) Psychiatric: mood appropriate, affect normal CBC and BMP: 03/22/20 04:33 03/21/20 04:44 ABG, PT/INR, D-dimer: ABG ABG pH 7.405 pH Units (7.350-7.450) 03/20/20 04:35 ABG pCO2 40.3 mm Hg 03/20/20 04:35 ABG pO2 68.3 mm Hg (80.0-90.0) L 03/20/20 04:35 ABG O2 Saturation 94.3 % (95.0-99.0) L 03/20/20 04:35 PT/INR, D-dimer PT 12.7 Sec. (12.2-14.9) 03/19/20 08:08 INR 0.94 (0.87-1.13) 03/19/20 08:08 Abnormal lab findings: Abnormal Labs 03/18/20 03/18/20 03/18/20 18:28 18:28 20:56 WBC 12.3 H RBC Hgb Hct Lymph % (Auto) 11.0 L [place] % (Auto) 9.8 H [place] # 1.2 H Seg Neutrophils % 78.4 H Seg Neutrophils # 9.6 H Heparin Anti-Xa Level ABG pO2 ABG HCO3 ABG O2 Saturation ABG Base Excess ABG Hemoglobin Oxyhemoglobin Sodium 132 L Potassium Chloride 91.9 L Carbon Dioxide 20 L BUN Creatinine 1.4 H Glucose 406 H POC Glucose Hemoglobin A1c Total Creatine Kinase 2727 H 2492 H CK-MB (CK-2) 135.9 H 107.2 H CK-MB (CK-2) Rel Index 4.3 H Troponin T 5.110 H* 3.960 H* D Triglycerides 188 H LDL Cholesterol Direct 141 H 03/18/20 03/19/2020 22:21 01:57 08:08 WBC RBC Hgb Hct Lymph % (Auto) [place] % (Auto) [place] # Seg Neutrophils % Seg Neutrophils # Heparin Anti-Xa Level ABG pO2 ABG HCO3 ABG O2 Saturation ABG Base Excess ABG Hemoglobin Oxyhemoglobin Sodium Potassium Chloride Carbon Dioxide BUN Creatinine Glucose POC Glucose 317 H Hemoglobin A1c 11.0 H Total Creatine Kinase 7255 H CK-MB (CK-2) 79.3 H CK-MB (CK-2) Rel Index Troponin T 5.540 H* D Triglycerides LDL Cholesterol Direct 03/19/20 03/19/20 03/19/20 08:08 08:08 08:08 WBC 13.3 H RBC Hgb Hct Lymph % (Auto) 10.7 L [place] % (Auto) 8.5 H [place] # 1.1 H Seg Neutrophils % 80.0 H Seg Neutrophils # 10.6 H Heparin Anti-Xa Level 0.10 L ABG pO2 ABG HCO3 ABG O2 Saturation ABG Base Excess ABG Hemoglobin Oxyhemoglobin Sodium 133 L Potassium 5.1 H Chloride Carbon Dioxide 17 L BUN 23 H Creatinine Glucose 313 H POC Glucose Hemoglobin A1c Total Creatine Kinase CK-MB (CK-2) CK-MB (CK-2) Rel Index Troponin T Triglycerides LDL Cholesterol Direct 03/19/20 03/19/20 03/19/20 15:40 18:23 21:32 WBC RBC Hgb Hct Lymph % (Auto) [place] % (Auto) [place] # Seg Neutrophils % Seg Neutrophils # Heparin Anti-Xa Level < 0.10 L ABG pO2 ABG HCO3 18.3 L ABG O2 Saturation ABG Base Excess -5.4 L ABG Hemoglobin 12.2 L Oxyhemoglobin 94.6 L Sodium Potassium Chloride Carbon Dioxide BUN Creatinine Glucose POC Glucose 348 H Hemoglobin A1c Total Creatine Kinase CK-MB (CK-2) CK-MB (CK-2) Rel Index Troponin T Triglycerides LDL Cholesterol Direct 03/20/20 03/20/20 03/20/20 04:35 05:12 05:12 WBC 11.1 H RBC 3.63 L Hgb 11.0 L Hct 32.7 L D Lymph % (Auto) [place] % (Auto) 8.1 H [place] # 0.9 H Seg Neutrophils % 75.8 H Seg Neutrophils # 8.4 H Heparin Anti-Xa Level 0.28 L ABG pO2 68.3 L ABG HCO3 ABG O2 Saturation 94.3 L ABG Base Excess ABG Hemoglobin 7.1 L Oxyhemoglobin 92.3 L Sodium Potassium Chloride Carbon Dioxide BUN Creatinine Glucose POC Glucose Hemoglobin A1c Total Creatine Kinase CK-MB (CK-2) CK-MB (CK-2) Rel Index Troponin T Triglycerides LDL Cholesterol Direct 03/20/20 03/20/20 03/20/20 05:12 07:49 12:15 WBC RBC Hgb Hct Lymph % (Auto) [place] % (Auto) [place] # Seg Neutrophils % Seg Neutrophils # Heparin Anti-Xa Level ABG pO2 ABG HCO3 ABG O2 Saturation ABG Base Excess ABG Hemoglobin Oxyhemoglobin Sodium 134 L Potassium Chloride Carbon Dioxide 21 L BUN 23 H Creatinine Glucose 275 H POC Glucose 294 H 357 H Hemoglobin A1c Total Creatine Kinase CK-MB (CK-2) CK-MB (CK-2) Rel Index Troponin T 3.200 H* D Triglycerides LDL Cholesterol Direct Chest x-ray: image reviewed (median sternotomy wires; cardiomegaly) Allied health notes reviewed: nursing
[2020-03-20] MEDS: [UNRECOGNIZED DRUG - REMARK] SUB-Q SCH ×2 (18:20→22:42)
[2020-03-21 05:34] LABS: BUN/Creatinine Ratio 26; Blood Urea Nitrogen 26 mg/dL (9-20); Calcium 8.1 mg/dL (8.4-10.2); Hemolysis Index 2
[2020-03-21] MEDS: [UNRECOGNIZED DRUG - REMARK] SUB-Q SCH ×4 (08:04→22:52)
--- NOTE | 2020-03-21 08:44 | Progress Note ---
Assessment and Plan Patient will ultimately need a BKA of his left leg. This will not need to be done in an emergent fashion unless the patient becomes infected. We will allow the patient to recover from his arterial interventions and fasciotomies and reassess on a daily basis. Subjective Date of service: 03/21/20 Principal diagnosis: Compartment syndrome left lower extremity Interval history: Patient with a history of nonsalvageable ischemic left foot who underwent left arterial thrombectomy and fasciotomies in an attempt to preserve a BKA. His left foot is insensate and has no motor which is stable from his baseline on presentation. Objective - Constitutional Vitals: Vital Signs - 12hr 03/20/20 03/20/20 03/20/20 21:10 21:20 21:30 Temperature Pulse Rate 121 H 115 H 112 H Pulse Rate [ Anterior Bilateral Throughout] Pulse Rate [ From Monitor] Respiratory 30 H 33 H 30 H Rate Respiratory Rate [Anterior Bilateral Throughout] Blood Pressure 127/97 121/93 129/96 O2 Sat by Pulse 90 92 87 Oximetry 03/20/20 03/20/20 03/20/20 21:40 21:50 21:52 Temperature Pulse Rate 112 H 102 H 103 H Pulse Rate [ Anterior Bilateral Throughout] Pulse Rate [ From Monitor] Respiratory 30 H 31 H 27 H Rate Respiratory Rate [Anterior Bilateral Throughout] Blood Pressure 127/97 124/91 124/91 O2 Sat by Pulse 87 94 96 Oximetry 03/20/20 03/20/20 03/20/20 21:57 22:00 22:10 Temperature Pulse Rate 105 H 105 H Pulse Rate [ 102 H Anterior Bilateral Throughout] Pulse Rate [ From Monitor] Respiratory 19 26 H Rate Respiratory 16 Rate [Anterior Bilateral Throughout] Blood Pressure 132/90 132/90 O2 Sat by Pulse 96 96 Oximetry 03/20/20 03/20/20 03/20/20 22:20 22:29 22:30 Temperature Pulse Rate 100 H 100 H 100 H Pulse Rate [ Anterior Bilateral Throughout] Pulse Rate [ From Monitor] Respiratory 22 22 Rate Respiratory Rate [Anterior Bilateral Throughout] Blood Pressure 113/79 113/79 108/79 O2 Sat by Pulse 98 99 Oximetry 03/20/20 03/20/20 03/20/20 22:40 22:50 23:00 Temperature Pulse Rate 101 H 103 H 103 H Pulse Rate [ Anterior Bilateral Throughout] Pulse Rate [ From Monitor] Respiratory 17 22 21 Rate Respiratory Rate [Anterior Bilateral Throughout] Blood Pressure 108/79 122/85 110/81 O2 Sat by Pulse 99 100 100 Oximetry 03/20/20 03/20/20 03/20/20 23:10 23:20 23:25 Temperature 98.1 F Pulse Rate 100 H 102 H Pulse Rate [ Anterior Bilateral Throughout] Pulse Rate [ From Monitor] Respiratory 22 22 Rate Respiratory Rate [Anterior Bilateral Throughout] Blood Pressure 110/81 112/78 O2 Sat by Pulse 100 100 Oximetry 03/20/20 03/20/20 03/20/20 23:30 23:40 23:50 Temperature Pulse Rate 102 H 104 H 103 H Pulse Rate [ Anterior Bilateral Throughout] Pulse Rate [ From Monitor] Respiratory 22 22 23 Rate Respiratory Rate [Anterior Bilateral Throughout] Blood Pressure 110/78 110/81 108/77 O2 Sat by Pulse 99 100 99 Oximetry 03/21/20 03/21/20 03/21/20 00:00 00:10 00:20 Temperature Pulse Rate 101 H 102 H 102 H Pulse Rate [ Anterior Bilateral Throughout] Pulse Rate [ 101 H From Monitor] Respiratory 21 23 23 Rate Respiratory Rate [Anterior Bilateral Throughout] Blood Pressure 108/76 108/76 113/76 O2 Sat by Pulse 100 100 99 Oximetry 03/21/20 03/21/20 03/21/20 00:30 00:40 00:50 Temperature Pulse Rate 103 H 106 H 111 H Pulse Rate [ Anterior Bilateral Throughout] Pulse Rate [ From Monitor] Respiratory 24 26 H 17 Rate Respiratory Rate [Anterior Bilateral Throughout] Blood Pressure 111/81 111/81 130/89 O2 Sat by Pulse 98 98 Oximetry 03/21/20 03/21/20 03/21/20 01:00 01:10 01:20 Temperature Pulse Rate 106 H 109 H 107 H Pulse Rate [ Anterior Bilateral Throughout] Pulse Rate [ From Monitor] Respiratory 26 H 22 28 H Rate Respiratory Rate [Anterior Bilateral Throughout] Blood Pressure 119/85 119/85 121/82 O2 Sat by Pulse 99 97 Oximetry 03/21/20 03/21/20 03/21/20 01:30 01:40 01:50 Temperature Pulse Rate 104 H 110 H 124 H Pulse Rate [ Anterior Bilateral Throughout] Pulse Rate [ From Monitor] Respiratory 25 H 29 H 39 H Rate Respiratory Rate [Anterior Bilateral Throughout] Blood Pressure 119/82 119/85 125/90 O2 Sat by Pulse 97 92 Oximetry 03/21/20 03/21/20 03/21/20 02:00 02:10 02:20 Temperature Pulse Rate 111 H 111 H 113 H Pulse Rate [ Anterior Bilateral Throughout] Pulse Rate [ From Monitor] Respiratory 31 H 20 23 Rate Respiratory Rate [Anterior Bilateral Throughout] Blood Pressure 123/87 123/87 123/89 O2 Sat by Pulse 95 97 92 Oximetry 03/21/20 03/21/20 03/21/20 02:30 02:40 02:50 Temperature Pulse Rate 119 H 120 H 116 H Pulse Rate [ Anterior Bilateral Throughout] Pulse Rate [ From Monitor] Respiratory 32 H 32 H 34 H Rate Respiratory Rate [Anterior Bilateral Throughout] Blood Pressure 118/84 118/84 116/74 O2 Sat by Pulse 87 88 88 Oximetry 03/21/20 03/21/20 03/21/20 03:00 03:10 03:20 Temperature Pulse Rate 113 H 117 H 117 H Pulse Rate [ Anterior Bilateral Throughout] Pulse Rate [ From Monitor] Respiratory 34 H 29 H 35 H Rate Respiratory Rate [Anterior Bilateral Throughout] Blood Pressure 115/80 115/80 114/74 O2 Sat by Pulse 87 88 90 Oximetry 03/21/20 03/21/20 03/21/20 03:28 03:30 03:40 Temperature 98.8 F Pulse Rate 119 H 120 H Pulse Rate [ Anterior Bilateral Throughout] Pulse Rate [ From Monitor] Respiratory 37 H 35 H Rate Respiratory Rate [Anterior Bilateral Throughout] Blood Pressure 113/81 115/80 O2 Sat by Pulse 85 87 Oximetry 03/21/20 03/21/20 03/21/20 03:50 04:00 04:10 Temperature Pulse Rate 123 H 116 H 111 H Pulse Rate [ Anterior Bilateral Throughout] Pulse Rate [ 116 H From Monitor] Respiratory 38 H 35 H 32 H Rate Respiratory Rate [Anterior Bilateral Throughout] Blood Pressure 105/81 117/77 105/81 O2 Sat by Pulse 86 88 89 Oximetry 03/21/20 03/21/20 03/21/20 04:20 04:30 04:40 Temperature Pulse Rate 112 H 116 H 120 H Pulse Rate [ Anterior Bilateral Throughout] Pulse Rate [ From Monitor] Respiratory 34 H 34 H 36 H Rate Respiratory Rate [Anterior Bilateral Throughout] Blood Pressure 112/78 121/84 121/84 O2 Sat by Pulse 89 90 87 Oximetry 03/21/20 03/21/20 03/21/20 04:50 05:00 05:10 Temperature Pulse Rate 117 H Pulse Rate [ Anterior Bilateral Throughout] Pulse Rate [ From Monitor] Respiratory 27 H Rate Respiratory Rate [Anterior Bilateral Throughout] Blood Pressure 107/80 102/81 102/81 O2 Sat by Pulse 88 85 88 Oximetry 03/21/20 03/21/20 03/21/20 05:20 05:30 05:40 Temperature Pulse Rate Pulse Rate [ Anterior Bilateral Throughout] Pulse Rate [ From Monitor] Respiratory Rate Respiratory Rate [Anterior Bilateral Throughout] Blood Pressure 118/83 116/83 116/83 O2 Sat by Pulse 89 90 90 Oximetry 03/21/20 03/21/20 03/21/20 05:50 06:00 06:10 Temperature Pulse Rate Pulse Rate [ Anterior Bilateral Throughout] Pulse Rate [ From Monitor] Respiratory Rate Respiratory Rate [Anterior Bilateral Throughout] Blood Pressure 113/76 116/79 116/79 O2 Sat by Pulse 90 88 89 Oximetry 03/21/20 03/21/20 03/21/20 06:20 06:30 06:40 Temperature Pulse Rate 116 H 113 H 114 H Pulse Rate [ Anterior Bilateral Throughout] Pulse Rate [ From Monitor] Respiratory 32 H 32 H 29 H Rate Respiratory Rate [Anterior Bilateral Throughout] Blood Pressure 121/85 105/70 105/70 O2 Sat by Pulse 89 89 89 Oximetry 03/21/20 03/21/20 03/21/20 06:50 07:00 07:10 Temperature Pulse Rate 112 H 118 H 115 H Pulse Rate [ Anterior Bilateral Throughout] Pulse Rate [ From Monitor] Respiratory 23 33 H 26 H Rate Respiratory Rate [Anterior Bilateral Throughout] Blood Pressure 111/76 118/81 118/81 O2 Sat by Pulse 90 90 90 Oximetry 03/21/20 03/21/20 03/21/20 07:20 07:30 07:40 Temperature Pulse Rate 113 H 131 H 129 H Pulse Rate [ Anterior Bilateral Throughout] Pulse Rate [ From Monitor] Respiratory 27 H 36 H 29 H Rate Respiratory Rate [Anterior Bilateral Throughout] Blood Pressure 110/78 110/78 123/91 O2 Sat by Pulse 90 88 89 Oximetry 03/21/20 03/21/20 03/21/20 07:50 08:00 08:10 Temperature Pulse Rate 131 H 131 H 133 H Pulse Rate [ Anterior Bilateral Throughout] Pulse Rate [ From Monitor] Respiratory 37 H 38 H 36 H Rate Respiratory Rate [Anterior Bilateral Throughout] Blood Pressure 129/87 129/87 129/87 O2 Sat by Pulse 89 90 90 Oximetry General appearance: Present: no acute distress - EENT Eyes: EOM intact ENT: hearing intact - Neck Neck: supple, normal ROM - Respiratory Respiratory effort: normal - Breasts Breasts: deferred - Cardiovascular Rhythm: regular Extremities: abnormal (Per HPI) - Gastrointestinal General gastrointestinal: Present: deferred - Genitourinary Male genitourinary: deferred - Musculoskeletal Musculoskeletal: left sided weakness - Psychiatric Psychiatric: cooperative - Labs CBC & Chem 7: 03/20/20 05:12 03/21/20 04:44 Labs: Abnormal lab results 03/20/20 03/20/20 03/20/20 Range/Units 12:15 17:16 22:08 Sodium (137-145) mmol/L Carbon Dioxide (22-30) mmol/L BUN (9-20) mg/dL Glucose (75-100) mg/dL POC Glucose 357 H 327 H 292 H (70-105) Calcium (8.4-10.2) mg/dL 03/21/20 03/21/20 Range/Units 04:44 07:50 Sodium 136 L (137-145) mmol/L Carbon Dioxide 18 L (22-30) mmol/L BUN 26 H (9-20) mg/dL Glucose 266 H (75-100) mg/dL POC Glucose 271 H (70-105) Calcium 8.1 L (8.4-10.2) mg/dL Medications & Allergies - Medications Allergies/Adverse Reactions: Allergies No Known Allergies Allergy (Unverified 03/18/20 15:17) Home Medications: Home Medications Medication Instructions Recorded Confirmed Last Taken Type AtorvaSTATin [Lipitor] 20 mg PO QHS 03/20/20 03/20/20 03/14/20 History Clopidogrel [Plavix] 75 mg PO QHS 03/20/20 03/20/20 03/14/20 History Famotidine [Acid Controller] 20 mg PO BID 03/20/20 03/20/20 03/14/20 History Fenofibrate Nanocrystallized 48 mg PO DAILY 03/20/20 03/20/20 03/14/20 History [Fenofibrate] Metoprolol Tartrate 25 mg PO BID 03/20/20 03/20/20 03/14/20 History Pregabalin [Lyrica] 150 mg PO BID 03/20/20 03/20/20 03/14/20 History amLODIPine [Norvasc] 5 mg PO DAILY 03/20/20 03/20/20 03/14/20 History glipiZIDE [Glucotrol] 10 mg PO BID 03/20/20 03/20/20 03/14/20 History hydroCHLOROthiazide [HCTZ] 25 mg PO QDAY 03/20/20 03/20/20 03/14/20 History lisinopriL [Zestril TAB] 40 mg PO QDAY 03/20/20 03/20/20 03/14/20 History Active Medications: Generic Name Dose Route Start Last Admin Trade Name Freq PRN Reason Stop Dose Admin Arformoterol Tartrate 15 mcg 03/19/20 20:00 03/20/20 21:58 Brovana Nebu IH 15 mcg Q12HRT LOI Administration Aspirin 81 mg 03/19/20 10:00 03/20/20 09:28 Halfprin Ec PO 81 mg QDAY LOI Administration Atorvastatin Calcium 40 mg 03/19/20 22:00 03/20/20 22:30 Lipitor PO 40 mg QHS LOI Administration Budesonide 0.5 mg 03/19/20 20:00 03/20/20 21:58 Pulmicort IH 0.5 mg Q12HRT LOI Administration Clopidogrel Bisulfate 75 mg 03/19/20 10:00 03/20/20 09:28 Plavix PO 75 mg QDAY LOI Administration Dextrose 50 ml 03/18/20 22:21 D50w (25gm) Syringe IV Q30MIN PRN Hypoglycemia Protocol Diphenhydramine HCl 25 mg 03/19/20 12:44 Benadryl IV Q4H PRN Itching Hydromorphone/Sodium Chloride 0 mg 03/19/20 13:00 03/20/20 13:33 Dilaudid [employer] 6mg/30ml IV 1 cart DIRECT LOI Administration Protocol Heparin Sodium/Sodium Chloride 25,000 unit in 500 mls @ 30 mls/hr 03/18/20 19:00 03/20/20 23:00 Heparin/ 0.45% Nacl-25,000 Unit/500 Ml IV 1,950 units/hr TITR LOI 39 mls/hr Administration Protocol 1,500 UNITS/HR Sodium Chloride 1,000 mls @ 75 mls/hr 03/19/20 10:19 03/20/20 22:44 Nacl 0.9% 1000 Ml IV 75 mls/hr DIRECT LOI Administration Insulin Human Lispro 0 unit 03/20/20 16:30 03/21/20 08:04 Humalog SUB-Q 6 unit ACHS LOI Administration Protocol Lisinopril 5 mg 03/21/20 10:00 Zestril PO QDAY LOI Magnesium Hydroxide 30 ml 03/18/20 22:21 Milk Of Magnesia PO Q4H PRN Constipation Metoprolol Tartrate 50 mg 03/19/20 22:00 03/20/20 22:29 Metoprolol PO 50 mg BID LOI Administration Naloxone HCl 0.1 mg 03/19/20 12:44 Naloxone IV Q2MIN PRN Res Rate </= 8 or 02 SAT < 92% Ondansetron HCl 4 mg 03/18/20 22:21 Zofran IV Q8H PRN Nausea And Vomiting Pantoprazole Sodium 40 mg 03/20/20 10:00 03/20/20 22:30 Protonix PO 40 mg BID LOI Administration Sodium Chloride 10 ml 03/19/20 10:00 03/20/20 22:30 Sodium Chloride Flush Syringe 10 Ml IV 10 ml BID LOI Administration Sodium Chloride 10 ml 03/18/20 22:21 Sodium Chloride Flush Syringe 10 Ml IV PRN PRN LINE FLUSH HEART Score - HEART Score Troponin: Troponin T 3.200 ng/mL (0.00-0.029) H* D 03/20/20 05:12
[2020-03-21] MEDS: METOPROLOL TARTRATE 50 MG TAB PO SCH ×2 (09:11→22:47)
[2020-03-21] MEDS: ASPIRIN EC 81 MG TAB PO SCH (09:11)
[2020-03-21] MEDS: CLOPIDOGREL 75 MG TAB PO SCH (09:11)
[2020-03-21] MEDS: PANTOPRAZOLE 40 MG TAB PO SCH ×2 (09:11→22:47)
[2020-03-21] MEDS: LISINOPRIL 5 MG TAB PO SCH (09:12)
[2020-03-21] MEDS: ARFORMOTEROL 15 MCG/2 ML NEBU IH SCH ×2 (09:40→20:19)
[2020-03-21] MEDS: BUDESONIDE 0.5 MG/2 ML NEBU IH SCH ×2 (09:40→20:19)
--- NOTE | 2020-03-21 12:32 | Progress Note ---
Assessment and Plan Acute limb ischemia S/P revascularization surgery. Obstructive sleep apnea. History of chronic obstructive pulmonary disease. Acute hypoxemic respiratory failure. Diabetes. History of coronary artery disease. Non-ST elevation myocardial infarction. Acute coronary syndrome. History of cerebrovascular accident. - continue antiplatelet therapy with heparin IV and Plavix - further surgical intervention per Vascular team - accuchecks with glycemic control per SSI (While critically ill target blood glucose of 140-180 mg/dL; avoid hypoglycemia) - wean supplemental oxygen for target O2 sat's > 90% acutely - prn bronchodilators with pulmonary hygiene per RT - avoid benzodiazepines, reduce the possibility of delirium - ABs per surgery (No S&S of overwhelming sepsis) - prn analgesia per pain score - Maintenance of sleep-wake cycle, avoid delirium - aspiration precautions -BIPAP qhs and prn - mobility protocol, off loading for pressure ulcer prevention - Monitor hemodynamics closely - continue other care per attending / other consultants Subjective Date of service: 03/21/20 Principal diagnosis: Compartment syndrome left lower extremity Interval history: Patient is seen today for: Acute limb ischemia S/P revascularization surgery; STARR; COPD; Acute hypoxemic respiratory failure; DM II; NSTEMI; H/O CVA Seen and examined at bedside; 24hour events reviewed; nursing and respiratory care staff consulted; no adverse overnight events reported to me; resting peacefully in bed; remains on IV heparin drip; still with cold left foot; he denies acute chest pains or palpitations Objective - Exam Narrative Exam: Constitutional: appears uncomfortable, other (middle aged obese male with mildly increased respiratory effort at rest) Eyes: non-icteric ENT: oropharynx moist Neck: supple, no lymphadenopathy, no JVD Effort: mildly labored Ascultation: Bilateral: clear, diminished breath sounds Percussion: Bilateral: not dull Cardiovascular: regular rate and rhythm Gastrointestinal: normoactive bowel sounds, soft, non-tender, non-distended (protuberant) Integumentary: rash, other (cool left leg plantar surface) Extremities: cool, edema, other (dressing to left leg post fasciotomy) Neurologic: normal mental status, non-focal exam, pupils equal and round, motor strength normal and (limited by pasin in left leg) Psychiatric: mood appropriate, affect normal Vital Signs - 12hr 03/21/20 03/21/20 03/21/20 00:40 00:50 01:00 Temperature Pulse Rate 106 H 111 H 106 H Pulse Rate [ Anterior Bilateral Throughout] Pulse Rate [ From Monitor] Respiratory 26 H 17 26 H Rate Respiratory Rate [Anterior Bilateral Throughout] Blood Pressure 111/81 130/89 119/85 O2 Sat by Pulse 98 98 Oximetry 03/21/20 03/21/20 03/21/20 01:10 01:20 01:30 Temperature Pulse Rate 109 H 107 H 104 H Pulse Rate [ Anterior Bilateral Throughout] Pulse Rate [ From Monitor] Respiratory 22 28 H 25 H Rate Respiratory Rate [Anterior Bilateral Throughout] Blood Pressure 119/85 121/82 119/82 O2 Sat by Pulse 99 97 Oximetry 03/21/20 03/21/20 03/21/20 01:40 01:50 02:00 Temperature Pulse Rate 110 H 124 H 111 H Pulse Rate [ Anterior Bilateral Throughout] Pulse Rate [ From Monitor] Respiratory 29 H 39 H 31 H Rate Respiratory Rate [Anterior Bilateral Throughout] Blood Pressure 119/85 125/90 123/87 O2 Sat by Pulse 97 92 95 Oximetry 03/21/20 03/21/20 03/21/20 02:10 02:20 02:30 Temperature Pulse Rate 111 H 113 H 119 H Pulse Rate [ Anterior Bilateral Throughout] Pulse Rate [ From Monitor] Respiratory 20 23 32 H Rate Respiratory Rate [Anterior Bilateral Throughout] Blood Pressure 123/87 123/89 118/84 O2 Sat by Pulse 97 92 87 Oximetry 03/21/20 03/21/20 03/21/20 02:40 02:50 03:00 Temperature Pulse Rate 120 H 116 H 113 H Pulse Rate [ Anterior Bilateral Throughout] Pulse Rate [ From Monitor] Respiratory 32 H 34 H 34 H Rate Respiratory Rate [Anterior Bilateral Throughout] Blood Pressure 118/84 116/74 115/80 O2 Sat by Pulse 88 88 87 Oximetry 03/21/20 03/21/20 03/21/20 03:10 03:20 03:28 Temperature 98.8 F Pulse Rate 117 H 117 H Pulse Rate [ Anterior Bilateral Throughout] Pulse Rate [ From Monitor] Respiratory 29 H 35 H Rate Respiratory Rate [Anterior Bilateral Throughout] Blood Pressure 115/80 114/74 O2 Sat by Pulse 88 90 Oximetry 03/21/20 03/21/20 03/21/20 03:30 03:40 03:50 Temperature Pulse Rate 119 H 120 H 123 H Pulse Rate [ Anterior Bilateral Throughout] Pulse Rate [ From Monitor] Respiratory 37 H 35 H 38 H Rate Respiratory Rate [Anterior Bilateral Throughout] Blood Pressure 113/81 115/80 105/81 O2 Sat by Pulse 85 87 86 Oximetry 03/21/20 03/21/20 03/21/20 04:00 04:10 04:20 Temperature Pulse Rate 116 H 111 H 112 H Pulse Rate [ Anterior Bilateral Throughout] Pulse Rate [ 116 H From Monitor] Respiratory 35 H 32 H 34 H Rate Respiratory Rate [Anterior Bilateral Throughout] Blood Pressure 117/77 105/81 112/78 O2 Sat by Pulse 88 89 89 Oximetry 03/21/20 03/21/20 03/21/20 04:30 04:40 04:50 Temperature Pulse Rate 116 H 120 H 117 H Pulse Rate [ Anterior Bilateral Throughout] Pulse Rate [ From Monitor] Respiratory 34 H 36 H 27 H Rate Respiratory Rate [Anterior Bilateral Throughout] Blood Pressure 121/84 121/84 107/80 O2 Sat by Pulse 90 87 88 Oximetry 03/21/20 03/21/20 03/21/20 05:00 05:10 05:20 Temperature Pulse Rate Pulse Rate [ Anterior Bilateral Throughout] Pulse Rate [ From Monitor] Respiratory Rate Respiratory Rate [Anterior Bilateral Throughout] Blood Pressure 102/81 102/81 118/83 O2 Sat by Pulse 85 88 89 Oximetry 03/21/20 03/21/20 03/21/20 05:30 05:40 05:50 Temperature Pulse Rate Pulse Rate [ Anterior Bilateral Throughout] Pulse Rate [ From Monitor] Respiratory Rate Respiratory Rate [Anterior Bilateral Throughout] Blood Pressure 116/83 116/83 113/76 O2 Sat by Pulse 90 90 90 Oximetry 03/21/20 03/21/20 03/21/20 06:00 06:10 06:20 Temperature Pulse Rate 116 H Pulse Rate [ Anterior Bilateral Throughout] Pulse Rate [ From Monitor] Respiratory 32 H Rate Respiratory Rate [Anterior Bilateral Throughout] Blood Pressure 116/79 116/79 121/85 O2 Sat by Pulse 88 89 89 Oximetry 03/21/20 03/21/20 03/21/20 06:30 06:40 06:50 Temperature Pulse Rate 113 H 114 H 112 H Pulse Rate [ Anterior Bilateral Throughout] Pulse Rate [ From Monitor] Respiratory 32 H 29 H 23 Rate Respiratory Rate [Anterior Bilateral Throughout] Blood Pressure 105/70 105/70 111/76 O2 Sat by Pulse 89 89 90 Oximetry 08/0603/21/20 03/21/20 07:00 07:10 07:20 Temperature Pulse Rate 118 H 115 H 113 H Pulse Rate [ Anterior Bilateral Throughout] Pulse Rate [ From Monitor] Respiratory 33 H 26 H 27 H Rate Respiratory Rate [Anterior Bilateral Throughout] Blood Pressure 118/81 118/81 110/78 O2 Sat by Pulse 90 90 90 Oximetry 03/21/20 03/21/20 03/21/20 07:30 07:40 07:50 Temperature Pulse Rate 131 H 129 H 131 H Pulse Rate [ Anterior Bilateral Throughout] Pulse Rate [ From Monitor] Respiratory 36 H 29 H 37 H Rate Respiratory Rate [Anterior Bilateral Throughout] Blood Pressure 110/78 123/91 129/87 O2 Sat by Pulse 88 89 89 Oximetry 03/21/20 03/21/20 03/21/20 08:00 08:10 08:20 Temperature Pulse Rate 131 H 133 H 129 H Pulse Rate [ Anterior Bilateral Throughout] Pulse Rate [ 131 H From Monitor] Respiratory 38 H 36 H 37 H Rate Respiratory Rate [Anterior Bilateral Throughout] Blood Pressure 129/87 129/87 119/92 O2 Sat by Pulse 90 90 90 Oximetry 03/21/20 03/21/20 03/21/20 08:30 08:40 08:50 Temperature Pulse Rate 123 H 124 H 120 H Pulse Rate [ Anterior Bilateral Throughout] Pulse Rate [ From Monitor] Respiratory 32 H 33 H 32 H Rate Respiratory Rate [Anterior Bilateral Throughout] Blood Pressure 110/76 110/76 129/87 O2 Sat by Pulse 91 90 91 Oximetry 03/21/20 03/21/20 03/21/20 09:00 09:10 09:11 Temperature Pulse Rate 121 H 120 H 119 H Pulse Rate [ Anterior Bilateral Throughout] Pulse Rate [ From Monitor] Respiratory 31 H 30 H Rate Respiratory Rate [Anterior Bilateral Throughout] Blood Pressure 112/79 112/79 112/79 O2 Sat by Pulse 92 93 Oximetry 03/21/20 03/21/20 03/21/20 09:12 09:20 09:30 Temperature Pulse Rate 119 H 124 H 123 H Pulse Rate [ Anterior Bilateral Throughout] Pulse Rate [ From Monitor] Respiratory 34 H 28 H Rate Respiratory Rate [Anterior Bilateral Throughout] Blood Pressure 112/79 113/83 116/85 O2 Sat by Pulse 89 89 Oximetry 03/21/20 03/21/20 03/21/20 09:40 09:50 09:52 Temperature Pulse Rate 121 H 117 H Pulse Rate [ 16 L Anterior Bilateral Throughout] Pulse Rate [ From Monitor] Respiratory 29 H 30 H Rate Respiratory 22 Rate [Anterior Bilateral Throughout] Blood Pressure 116/85 116/75 O2 Sat by Pulse 97 96 Oximetry 03/21/20 03/21/20 03/21/20 10:00 10:10 10:20 Temperature Pulse Rate 112 H 110 H 112 H Pulse Rate [ Anterior Bilateral Throughout] Pulse Rate [ From Monitor] Respiratory 29 H 26 H 30 H Rate Respiratory Rate [Anterior Bilateral Throughout] Blood Pressure 104/75 104/75 104/75 O2 Sat by Pulse 95 96 93 Oximetry 03/21/20 03/21/20 03/21/20 10:30 10:40 10:42 Temperature Pulse Rate 109 H 108 H Pulse Rate [ Anterior Bilateral Throughout] Pulse Rate [ From Monitor] Respiratory 30 H 27 H Rate Respiratory Rate [Anterior Bilateral Throughout] Blood Pressure 102/76 102/76 O2 Sat by Pulse 93 95 95 Oximetry 03/21/20 03/21/20 03/21/20 10:50 10:59 11:00 Temperature Pulse Rate 123 H 105 H 115 H Pulse Rate [ Anterior Bilateral Throughout] Pulse Rate [ From Monitor] Respiratory 34 H 30 H 32 H Rate Respiratory Rate [Anterior Bilateral Throughout] Blood Pressure 103/79 122/90 122/90 O2 Sat by Pulse 89 93 92 Oximetry CBC and BMP: 04/02/20 05:44 04/02/20 05:44 ABG, PT/INR, D-dimer: ABG ABG pH 7.405 pH Units (7.350-7.450) 03/20/20 04:35 ABG pCO2 40.3 mm Hg 03/20/20 04:35 ABG pO2 68.3 mm Hg (80.0-90.0) L 03/20/20 04:35 ABG O2 Saturation 94.3 % (95.0-99.0) L 03/20/20 04:35 PT/INR, D-dimer PT 12.7 Sec. (12.2-14.9) 03/19/20 08:08 INR 0.94 (0.87-1.13) 03/19/20 08:08 Abnormal lab findings: Abnormal Labs 03/18/20 03/18/20 03/18/20 18:28 18:28 20:56 WBC 12.3 H RBC Hgb Hct Lymph % (Auto) 11.0 L [place] % (Auto) 9.8 H [place] # 1.2 H Seg Neutrophils % 78.4 H Seg Neutrophils # 9.6 H Heparin Anti-Xa Level ABG pO2 ABG HCO3 ABG O2 Saturation ABG Base Excess ABG Hemoglobin Oxyhemoglobin Sodium 132 L Potassium Chloride 91.9 L Carbon Dioxide 20 L BUN Creatinine 1.4 H Glucose 406 H POC Glucose Hemoglobin A1c Calcium Total Creatine Kinase 2727 H 2492 H CK-MB (CK-2) 135.9 H 107.2 H CK-MB (CK-2) Rel Index 4.3 H Troponin T 5.110 H* 3.960 H* D Triglycerides 188 H LDL Cholesterol Direct 141 H 03/18/20 03/19/20 03/19/20 22:21 01:57 08:08 WBC RBC Hgb Hct Lymph % (Auto) [place] % (Auto) [place] # Seg Neutrophils % Seg Neutrophils # Heparin Anti-Xa Level ABG pO2 ABG HCO3 ABG O2 Saturation ABG Base Excess ABG Hemoglobin Oxyhemoglobin Sodium Potassium Chloride Carbon Dioxide BUN Creatinine Glucose POC Glucose 317 H Hemoglobin A1c 11.0 H Calcium Total Creatine Kinase 7255 H CK-MB (CK-2) 79.3 H CK-MB (CK-2) Rel Index Troponin T 5.540 H* D Triglycerides LDL Cholesterol Direct 03/19/20 03/19/20 03/19/20 08:08 08:08 08:08 WBC 13.3 H RBC Hgb Hct Lymph % (Auto) 10.7 L [place] % (Auto) 8.5 H [place] # 1.1 H Seg Neutrophils % 80.0 H Seg Neutrophils # 10.6 H Heparin Anti-Xa Level 0.10 L ABG pO2 ABG HCO3 ABG O2 Saturation ABG Base Excess ABG Hemoglobin Oxyhemoglobin Sodium 133 L Potassium 5.1 H Chloride Carbon Dioxide 17 L BUN 23 H Creatinine Glucose 313 H POC Glucose Hemoglobin A1c Calcium Total Creatine Kinase CK-MB (CK-2) CK-MB (CK-2) Rel Index Troponin T Triglycerides LDL Cholesterol Direct 03/19/20 03/19/20 03/19/20 15:40 18:23 21:32 WBC RBC Hgb Hct Lymph % (Auto) [place] % (Auto) [place] # Seg Neutrophils % Seg Neutrophils # Heparin Anti-Xa Level < 0.10 L ABG pO2 ABG HCO3 18.3 L ABG O2 Saturation ABG Base Excess -5.4 L ABG Hemoglobin 12.2 L Oxyhemoglobin 94.6 L Sodium Potassium Chloride Carbon Dioxide BUN Creatinine Glucose POC Glucose 348 H Hemoglobin A1c Calcium Total Creatine Kinase CK-MB (CK-2) CK-MB (CK-2) Rel Index Troponin T Triglycerides LDL Cholesterol Direct 03/20/20 03/20/20 03/20/20 04:35 05:12 05:12 WBC 11.1 H RBC 3.63 L Hgb 11.0 L Hct 32.7 L D Lymph % (Auto) [place] % (Auto) 8.1 H [place] # 0.9 H Seg Neutrophils % 75.8 H Seg Neutrophils # 8.4 H Heparin Anti-Xa Level 0.28 L ABG pO2 68.3 L ABG HCO3 ABG O2 Saturation 94.3 L ABG Base Excess ABG Hemoglobin 7.1 L Oxyhemoglobin 92.3 L Sodium Potassium Chloride Carbon Dioxide BUN Creatinine Glucose POC Glucose Hemoglobin A1c Calcium Total Creatine Kinase CK-MB (CK-2) CK-MB (CK-2) Rel Index Troponin T Triglycerides LDL Cholesterol Direct 03/20/20 03/20/20 03/20/20 05:12 07:49 12:15 WBC RBC Hgb Hct Lymph % (Auto) [place] % (Auto) [place] # Seg Neutrophils % Seg Neutrophils # Heparin Anti-Xa Level ABG pO2 ABG HCO3 ABG O2 Saturation ABG Base Excess ABG Hemoglobin Oxyhemoglobin Sodium 134 L Potassium Chloride Carbon Dioxide 21 L BUN 23 H Creatinine Glucose 275 H POC Glucose 294 H 357 H Hemoglobin A1c Calcium Total Creatine Kinase CK-MB (CK-2) CK-MB (CK-2) Rel Index Troponin T 3.200 H* D Triglycerides LDL Cholesterol Direct 03/20/20 03/20/20 03/21/20 17:16 22:08 04:44 WBC RBC Hgb Hct Lymph % (Auto) [place] % (Auto) [place] # Seg Neutrophils % Seg Neutrophils # Heparin Anti-Xa Level ABG pO2 ABG HCO3 ABG O2 Saturation ABG Base Excess ABG Hemoglobin Oxyhemoglobin Sodium 136 L Potassium Chloride Carbon Dioxide 18 L BUN 26 H Creatinine Glucose 266 H POC Glucose 327 H 292 H Hemoglobin A1c Calcium 8.1 L Total Creatine Kinase CK-MB (CK-2) CK-MB (CK-2) Rel Index Troponin T Triglycerides LDL Cholesterol Direct 03/21/20 07:50 WBC RBC Hgb Hct Lymph % (Auto) [place] % (Auto) [place] # Seg Neutrophils % Seg Neutrophils # Heparin Anti-Xa Level ABG pO2 ABG HCO3 ABG O2 Saturation ABG Base Excess ABG Hemoglobin Oxyhemoglobin Sodium Potassium Chloride Carbon Dioxide BUN Creatinine Glucose POC Glucose 271 H Hemoglobin A1c Calcium Total Creatine Kinase CK-MB (CK-2) CK-MB (CK-2) Rel Index Troponin T Triglycerides LDL Cholesterol Direct Allied health notes reviewed: RT
[2020-03-21] MEDS: SODIUM CHLORIDE 0.9% 1000 ML 1,000 ML IV SCH (12:33)
--- NOTE | 2020-03-21 12:44 | Progress Note ---
Assessment and Plan tte reviewed - EF 30-35%, LV mildly dilated, mid inferolateral, mid inferior, apical lateral and apical inferior wall segments are akinetic. No current clinical evidence of acutely decompensated HF. ECG is noted to be abnormal although not c/w STEMI. Ozzie elevation appears c/w NSTEMI type II, Ozzie trending downwards, pt denies any occurrence of chest pain or other cardiac complaints. May d/c heparin gtt from cardiology standpoint. Cont ASA, plavix, lopressor and statin. Consider addition of ACEI/ARB in setting of CMP if BPs permit. Will plan for stress test once medically stabilized - could be accomplished as OP. Per vascular team, it is still likely that he will require below-knee amputation. The patient has been seen in conjunction with Dr. Treviño who agrees with the assessment and plan of care. - Patient Problems (1) PAD (peripheral artery disease) Current Visit: Yes Status: Chronic (2) Abnormal ECG Current Visit: Yes Status: Acute (3) NSTEMI (non-ST elevated myocardial infarction) Current Visit: Yes Status: Acute (4) CAD (coronary artery disease) Current Visit: Yes Status: Chronic (5) History of coronary artery bypass graft Current Visit: Yes Status: Chronic (6) HTN (hypertension) Current Visit: Yes Status: Chronic (7) History of CVA (cerebrovascular accident) Current Visit: Yes Status: Chronic (8) Smoker Current Visit: Yes Status: Chronic (9) Cardiomyopathy Current Visit: Yes Status: Acute Subjective Date of service: 03/21/20 Principal diagnosis: Compartment syndrome left lower extremity Interval history: pt resting in bed, no current cardiac complaints. in SR/ST on tele HR 90s - 110s. Objective Last Vital Signs Temp 98.8 F 03/21/20 03:28 Pulse 115 H 03/21/20 11:00 Resp 32 H 03/21/20 11:00 BP 122/90 03/21/20 11:00 Pulse Ox 92 03/21/20 11:00 - Physical Examination General: No Apparent Distress HEENT: Positive: PERRL, Normocephaly, Mucus Membranes Moist Neck: Positive: neck supple, trachea midline Cardiac: Positive: Reg Rate and Rhythm, S1/S2 Lungs: Positive: Decreased Breath Sounds Neuro: Positive: Grossly Intact Abdomen: Negative: Tender Skin: Negative: Rash Musculoskeletal: other (LLE pain, numbness, pale) Extremities: Present: Other (LLE pain, numbness, pale) - Labs and Meds Comprehensive Metabolic Panel 03/21/20 Range/Units 04:44 Sodium 136 L (137-145) mmol/L Potassium 4.5 (3.6-5.0) mmol/L Chloride 99.5 (98-107) mmol/L Carbon Dioxide 18 L (22-30) mmol/L BUN 26 H (9-20) mg/dL Creatinine 1.0 (0.8-1.3) mg/dL Glucose 266 H (75-100) mg/dL Calcium 8.1 L (8.4-10.2) mg/dL - Imaging and Cardiology EKG: report reviewed, image reviewed Echo: pending, report reviewed (tte done 12/2014 showed EF 55-60%, no significant abnormalities. ) - EKG Sinus rhythms and dysrhythmias: sinus rhythm Repolarization changes or abnormalities: nonspecific abnormality, ST segment, and/or T wave
[2020-03-21] MEDS: HEPARIN/ 0.45% NACL DRIP 25,000 UNIT/500 ML BAG IV SCH (13:34)
[2020-03-21] MEDS ORDERED: PREGABALIN 25 MG CAP PO SCH (14:00)
[2020-03-21] MEDS: HYDROmorphone/NS 6 MG/30 ML PCA INJ IV SCH (14:01)
[2020-03-21] MEDS: INSULIN GLARGINE 100 UNITS/ML SUB-Q SCH ×2 (16:15→22:48)
[2020-03-21] MEDS: PREGABALIN 25 MG CAP PO SCH ×2 (16:16→22:46)
[2020-03-22] MEDS: HEPARIN/ 0.45% NACL DRIP 25,000 UNIT/500 ML BAG IV SCH (04:25)
[2020-03-22] MEDS: SODIUM CHLORIDE 0.9% 1000 ML 1,000 ML IV SCH ×2 (04:25→19:53)
[2020-03-22 05:25] LABS: Hematocrit 29.4 % (35.5-45.6)
[2020-03-22] MEDS: ARFORMOTEROL 15 MCG/2 ML NEBU IH SCH ×2 (07:56→20:43)
[2020-03-22] MEDS: BUDESONIDE 0.5 MG/2 ML NEBU IH SCH ×2 (07:56→20:43)
[2020-03-22] MEDS ORDERED: INSULIN GLARGINE 100 UNITS/ML SUB-Q ONE (10:00)
[2020-03-22] MEDS: PREGABALIN 25 MG CAP PO SCH (10:05)
[2020-03-22] MEDS: ASPIRIN EC 81 MG TAB PO SCH (10:06)
[2020-03-22] MEDS: PANTOPRAZOLE 40 MG TAB PO SCH ×2 (10:06→22:12)
[2020-03-22] MEDS: LISINOPRIL 5 MG TAB PO SCH (10:07)
[2020-03-22] MEDS: CLOPIDOGREL 75 MG TAB PO SCH (10:07)
[2020-03-22] MEDS: METOPROLOL TARTRATE 50 MG TAB PO SCH ×2 (10:08→22:11)
[2020-03-22] MEDS: [UNRECOGNIZED DRUG - REMARK] SUB-Q SCH ×4 (10:09→23:26)
--- NOTE | 2020-03-22 13:13 | Progress Note ---
Assessment and Plan tte reviewed - EF 30-35%, LV mildly dilated, mid inferolateral, mid inferior, apical lateral and apical inferior wall segments are akinetic. No current clinical evidence of acutely decompensated HF. ECG is noted to be abnormal although not c/w STEMI. Ozzie elevation appears c/w NSTEMI type II, [place] trending downwards, pt denies any occurrence of chest pain or other cardiac complaints. May d/c heparin gtt from cardiology standpoint. Cont ASA, plavix, lopressor and statin. Consider addition of ACEI/ARB in setting of CMP if BPs permit. Will plan for stress test once medically stabilized - could be accomplished as OP. Per vascular team, it is still likely that he will require below-knee amputation. Will follow on as needed basis over the weekend. The patient has been seen in conjunction with Dr. Treviño who agrees with the assessment and plan of care. - Patient Problems (1) PAD (peripheral artery disease) Current Visit: Yes Status: Chronic (2) Abnormal ECG Current Visit: Yes Status: Acute (3) NSTEMI (non-ST elevated myocardial infarction) Current Visit: Yes Status: Acute (4) CAD (coronary artery disease) Current Visit: Yes Status: Chronic (5) History of coronary artery bypass graft Current Visit: Yes Status: Chronic (6) HTN (hypertension) Current Visit: Yes Status: Chronic (7) History of CVA (cerebrovascular accident) Current Visit: Yes Status: Chronic (8) Smoker Current Visit: Yes Status: Chronic (9) Cardiomyopathy Current Visit: Yes Status: Acute Subjective Date of service: 03/22/20 Principal diagnosis: Compartment syndrome left lower extremity Interval history: pt resting in bed, no current cardiac complaints. in SR/ST on tele HR 90s - 110s. Objective Last Vital Signs Temp 98.8 F 03/22/20 03:20 Pulse 96 H 03/22/20 11:01 Resp 26 H 03/22/20 11:01 BP 123/75 03/22/20 11:01 Pulse Ox 98 03/22/20 11:01 - Physical Examination General: No Apparent Distress HEENT: Positive: PERRL, Normocephaly, Mucus Membranes Moist Neck: Positive: neck supple, trachea midline Cardiac: Positive: Reg Rate and Rhythm, S1/S2 Neuro: Positive: Grossly Intact Abdomen: Negative: Tender Skin: Negative: Rash Musculoskeletal: other (LLE pain, numbness, pale) Extremities: Present: Other (LLE pain, numbness, pale) - Labs and Meds CBC 03/22/20 Range/Units 04:33 Hgb 10.0 L (11.8-15.2) gm/dl Hct 29.4 L (35.5-45.6) % Plt Count 315 (140-440) K/mm3 - Imaging and Cardiology EKG: report reviewed, image reviewed Echo: pending, report reviewed (tte done 12/2014 showed EF 55-60%, no significant abnormalities. ) - EKG Sinus rhythms and dysrhythmias: sinus rhythm Repolarization changes or abnormalities: nonspecific abnormality, ST segment, and/or T wave
--- NOTE | 2020-03-22 14:23 | Progress Note ---
Assessment and Plan Acute limb ischemia S/P revascularization surgery. Obstructive sleep apnea. History of chronic obstructive pulmonary disease. Acute hypoxemic respiratory failure. Diabetes. History of coronary artery disease. Non-ST elevation myocardial infarction. Acute coronary syndrome. History of cerebrovascular accident. (Overall left foot is pinker and warmer and less symptomatic) - continue antiplatelet therapy with heparin IV and Plavix - further surgical intervention per Vascular team - accuchecks with glycemic control per SSI (While critically ill target blood glucose of 140-180 mg/dL; avoid hypoglycemia) - wean supplemental oxygen for target O2 sat's > 90% acutely - prn bronchodilators with pulmonary hygiene per RT - avoid benzodiazepine's, reduce the possibility of delirium - AB's per surgery rec's (No S&S of overwhelming sepsis) - prn analgesia per pain score - Maintenance of sleep-wake cycle, avoid delirium - aspiration precautions - G.I. & VTE prophylaxis - PT/OT/ROM exercises - mobility protocols for pressure ulcer prophylaxis - Monitor hemodynamics closely - continue other care per attending / other consultants - discharge planning ongoing concurrently - ok to transfer out of ICU .... Re-evaluate in am & prn Subjective Date of service: 03/22/20 Principal diagnosis: Acute limb ischemia; STARR; COPD; Ac hypoxemic resp failure; DM II; NSTEMI Interval history: Patient is seen today for: Acute limb ischemia S/P revascularization surgery; STARR; COPD; Acute hypoxemic respiratory failure; DM II; NSTEMI; H/O CVA Seen and examined at bedside; 24hour events reviewed; nursing and respiratory care staff consulted; no adverse overnight events reported to me; resting peacefully in bed; on BIPAP; complains of oropharyngeal dryness; leg pain a little better; No N/V/F/C Objective Vital Signs - 12hr 03/22/20 03/22/20 03/22/20 02:30 02:40 02:51 Temperature Pulse Rate 100 H 99 H 105 H Pulse Rate [ Anterior Bilateral Throughout] Pulse Rate [ From Monitor] Pulse Rate [ Left Posterior Tibial] Pulse Rate [ Right Dorsalis Pedis] Respiratory 20 20 28 H Rate Respiratory Rate [Anterior Bilateral Throughout] Blood Pressure 146/100 148/94 130/87 O2 Sat by Pulse 99 100 99 Oximetry 03/22/20 03/22/20 03/22/20 03:00 03:11 03:20 Temperature 98.8 F Pulse Rate 99 H 99 H Pulse Rate [ Anterior Bilateral Throughout] Pulse Rate [ From Monitor] Pulse Rate [ Left Posterior Tibial] Pulse Rate [ Right Dorsalis Pedis] Respiratory 22 23 Rate Respiratory Rate [Anterior Bilateral Throughout] Blood Pressure 134/95 134/95 O2 Sat by Pulse 99 99 Oximetry 03/22/20 03/22/20 03/22/20 03:21 03:30 03:41 Temperature Pulse Rate 101 H 98 H 101 H Pulse Rate [ Anterior Bilateral Throughout] Pulse Rate [ From Monitor] Pulse Rate [ Left Posterior Tibial] Pulse Rate [ Right Dorsalis Pedis] Respiratory 19 21 20 Rate Respiratory Rate [Anterior Bilateral Throughout] Blood Pressure 143/94 144/99 134/95 O2 Sat by Pulse 99 99 98 Oximetry 03/22/20 03/22/20 03/22/20 03:51 04:00 04:11 Temperature Pulse Rate 99 H 100 H 103 H Pulse Rate [ Anterior Bilateral Throughout] Pulse Rate [ 100 H From Monitor] Pulse Rate [ Left Posterior Tibial] Pulse Rate [ Right Dorsalis Pedis] Respiratory 21 21 40 H Rate Respiratory Rate [Anterior Bilateral Throughout] Blood Pressure 137/105 140/100 140/100 O2 Sat by Pulse 99 100 100 Oximetry 03/22/20 03/22/20 03/22/20 04:21 04:30 04:41 Temperature Pulse Rate 103 H 97 H 97 H Pulse Rate [ Anterior Bilateral Throughout] Pulse Rate [ From Monitor] Pulse Rate [ Left Posterior Tibial] Pulse Rate [ Right Dorsalis Pedis] Respiratory 31 H 22 21 Rate Respiratory Rate [Anterior Bilateral Throughout] Blood Pressure 132/96 146/101 146/101 O2 Sat by Pulse 100 98 98 Oximetry 03/22/20 03/22/20 03/22/20 04:51 05:01 05:11 Temperature Pulse Rate 99 H 98 H 97 H Pulse Rate [ Anterior Bilateral Throughout] Pulse Rate [ From Monitor] Pulse Rate [ Left Posterior Tibial] Pulse Rate [ Right Dorsalis Pedis] Respiratory 18 20 20 Rate Respiratory Rate [Anterior Bilateral Throughout] Blood Pressure 148/107 141/105 146/101 O2 Sat by Pulse 99 99 99 Oximetry 03/22/20 03/22/20 03/22/20 05:21 05:31 05:41 Temperature Pulse Rate 98 H 104 H 113 H Pulse Rate [ Anterior Bilateral Throughout] Pulse Rate [ From Monitor] Pulse Rate [ Left Posterior Tibial] Pulse Rate [ Right Dorsalis Pedis] Respiratory 20 22 29 H Rate Respiratory Rate [Anterior Bilateral Throughout] Blood Pressure 143/95 156/99 141/105 O2 Sat by Pulse 100 99 95 Oximetry 03/22/20 03/22/20 03/22/20 05:51 06:01 06:11 Temperature Pulse Rate 111 H 114 H 114 H Pulse Rate [ Anterior Bilateral Throughout] Pulse Rate [ From Monitor] Pulse Rate [ Left Posterior Tibial] Pulse Rate [ Right Dorsalis Pedis] Respiratory 19 28 H 27 H Rate Respiratory Rate [Anterior Bilateral Throughout] Blood Pressure 151/131 153/106 153/106 O2 Sat by Pulse 94 92 95 Oximetry 03/22/20 03/22/20 03/22/20 06:21 06:31 06:41 Temperature Pulse Rate 110 H 113 H 113 H Pulse Rate [ Anterior Bilateral Throughout] Pulse Rate [ From Monitor] Pulse Rate [ Left Posterior Tibial] Pulse Rate [ Right Dorsalis Pedis] Respiratory 25 H 26 H 30 H Rate Respiratory Rate [Anterior Bilateral Throughout] Blood Pressure 146/98 153/104 153/104 O2 Sat by Pulse 96 97 97 Oximetry 03/22/20 03/22/20 03/22/20 06:51 07:01 07:11 Temperature Pulse Rate 114 H Pulse Rate [ Anterior Bilateral Throughout] Pulse Rate [ From Monitor] Pulse Rate [ Left Posterior Tibial] Pulse Rate [ Right Dorsalis Pedis] Respiratory 28 H Rate Respiratory Rate [Anterior Bilateral Throughout] Blood Pressure 153/104 153/104 119/81 O2 Sat by Pulse 96 95 97 Oximetry 03/22/20 03/22/20 03/22/20 07:21 07:30 07:41 Temperature Pulse Rate 114 H 112 H 109 H Pulse Rate [ Anterior Bilateral Throughout] Pulse Rate [ From Monitor] Pulse Rate [ Left Posterior Tibial] Pulse Rate [ Right Dorsalis Pedis] Respiratory 27 H 27 H 26 H Rate Respiratory Rate [Anterior Bilateral Throughout] Blood Pressure 115/76 116/79 116/79 O2 Sat by Pulse 97 96 97 Oximetry 03/22/20 03/22/20 03/22/20 07:51 07:56 08:00 Temperature Pulse Rate 112 H 105 H 109 H Pulse Rate [ 107 H Anterior Bilateral Throughout] Pulse Rate [ 112 H From Monitor] Pulse Rate [ 112 H Left Posterior Tibial] Pulse Rate [ 112 H Right Dorsalis Pedis] Respiratory 26 H 24 24 Rate Respiratory 24 Rate [Anterior Bilateral Throughout] Blood Pressure 121/82 114/80 115/83 O2 Sat by Pulse 96 100 100 Oximetry 03/22/20 03/22/20 03/22/20 08:11 08:21 08:30 Temperature Pulse Rate 106 H 106 H 107 H Pulse Rate [ Anterior Bilateral Throughout] Pulse Rate [ From Monitor] Pulse Rate [ Left Posterior Tibial] Pulse Rate [ Right Dorsalis Pedis] Respiratory 22 26 H 29 H Rate Respiratory Rate [Anterior Bilateral Throughout] Blood Pressure 115/83 114/80 120/81 O2 Sat by Pulse 100 100 99 Oximetry 03/22/20 03/22/20 03/22/20 08:41 08:51 09:00 Temperature Pulse Rate 104 H 111 H 111 H Pulse Rate [ Anterior Bilateral Throughout] Pulse Rate [ From Monitor] Pulse Rate [ Left Posterior Tibial] Pulse Rate [ Right Dorsalis Pedis] Respiratory 24 22 28 H Rate Respiratory Rate [Anterior Bilateral Throughout] Blood Pressure 120/81 119/83 121/86 O2 Sat by Pulse 100 99 100 Oximetry 03/22/20 03/22/20 03/22/20 09:11 09:21 09:31 Temperature Pulse Rate 122 H 119 H 116 H Pulse Rate [ Anterior Bilateral Throughout] Pulse Rate [ From Monitor] Pulse Rate [ Left Posterior Tibial] Pulse Rate [ Right Dorsalis Pedis] Respiratory 29 H 29 H 30 H Rate Respiratory Rate [Anterior Bilateral Throughout] Blood Pressure 120/81 120/81 120/81 O2 Sat by Pulse 96 97 97 Oximetry 03/22/20 03/22/20 03/22/20 09:41 09:51 10:01 Temperature Pulse Rate 123 H 121 H 115 H Pulse Rate [ Anterior Bilateral Throughout] Pulse Rate [ From Monitor] Pulse Rate [ Left Posterior Tibial] Pulse Rate [ Right Dorsalis Pedis] Respiratory 29 H 28 H 18 Rate Respiratory Rate [Anterior Bilateral Throughout] Blood Pressure 121/86 121/86 121/86 O2 Sat by Pulse 96 87 96 Oximetry 03/22/20 03/22/20 03/22/20 10:07 10:08 10:11 Temperature Pulse Rate 120 H 120 H 116 H Pulse Rate [ Anterior Bilateral Throughout] Pulse Rate [ From Monitor] Pulse Rate [ Left Posterior Tibial] Pulse Rate [ Right Dorsalis Pedis] Respiratory 29 H Rate Respiratory Rate [Anterior Bilateral Throughout] Blood Pressure 126/86 126/86 126/86 O2 Sat by Pulse 93 Oximetry 03/22/20 03/22/20 03/22/20 10:21 10:31 10:41 Temperature Pulse Rate 119 H 123 H 118 H Pulse Rate [ Anterior Bilateral Throughout] Pulse Rate [ From Monitor] Pulse Rate [ Left Posterior Tibial] Pulse Rate [ Right Dorsalis Pedis] Respiratory 32 H 34 H 32 H Rate Respiratory Rate [Anterior Bilateral Throughout] Blood Pressure 130/89 127/85 127/85 O2 Sat by Pulse 96 97 96 Oximetry 03/22/20 03/22/20 10:51 11:01 Temperature Pulse Rate 106 H 96 H Pulse Rate [ Anterior Bilateral Throughout] Pulse Rate [ From Monitor] Pulse Rate [ Left Posterior Tibial] Pulse Rate [ Right Dorsalis Pedis] Respiratory 27 H 26 H Rate Respiratory Rate [Anterior Bilateral Throughout] Blood Pressure 123/75 123/75 O2 Sat by Pulse 80 L 98 Oximetry Constitutional: appears uncomfortable, other (middle aged obese male with mildly increased respiratory effort at rest) Eyes: non-icteric ENT: oropharynx moist Neck: supple, no lymphadenopathy, no JVD Effort: mildly labored Ascultation: Bilateral: clear, diminished breath sounds Percussion: Bilateral: not dull Cardiovascular: regular rate and rhythm Gastrointestinal: normoactive bowel sounds, soft, non-tender, non-distended (protuberant) Integumentary: rash, other (cool left foot anterior plantar surface) Extremities: cool, edema, other (dressing to left leg post fasciotomy) Neurologic: normal mental status, non-focal exam, pupils equal and round, motor strength normal and (limited by pasin in left leg) Psychiatric: mood appropriate, affect normal CBC and BMP: 03/22/20 04:33 03/21/20 04:44 ABG, PT/INR, D-dimer: ABG ABG pH 7.405 pH Units (7.350-7.450) 03/20/20 04:35 ABG pCO2 40.3 mm Hg 03/20/20 04:35 ABG pO2 68.3 mm Hg (80.0-90.0) L 03/20/20 04:35 ABG O2 Saturation 94.3 % (95.0-99.0) L 03/20/20 04:35 PT/INR, D-dimer PT 12.7 Sec. (12.2-14.9) 03/19/20 08:08 INR 0.94 (0.87-1.13) 03/19/20 08:08 Abnormal lab findings: Abnormal Labs 03/18/20 03/18/20 03/18/20 18:28 18:28 20:56 WBC 12.3 H RBC Hgb Hct Lymph % (Auto) 11.0 L [place] % (Auto) 9.8 H [place] # 1.2 H Seg Neutrophils % 78.4 H Seg Neutrophils # 9.6 H Heparin Anti-Xa Level ABG pO2 ABG HCO3 ABG O2 Saturation ABG Base Excess ABG Hemoglobin Oxyhemoglobin Sodium 132 L Potassium Chloride 91.9 L Carbon Dioxide 20 L BUN Creatinine 1.4 H Glucose 406 H POC Glucose Hemoglobin A1c Calcium Total Creatine Kinase 2727 H 2492 H CK-MB (CK-2) 135.9 H 107.2 H CK-MB (CK-2) Rel Index 4.3 H Troponin T 5.110 H* 3.960 H* D Triglycerides 188 H LDL Cholesterol Direct 141 H 03/18/20 03/19/20 03/19/20 22:21 01:57 08:08 WBC RBC Hgb Hct Lymph % (Auto) [place] % (Auto) [place] # Seg Neutrophils % Seg Neutrophils # Heparin Anti-Xa Level ABG pO2 ABG HCO3 ABG O2 Saturation ABG Base Excess ABG Hemoglobin Oxyhemoglobin Sodium Potassium Chloride Carbon Dioxide BUN Creatinine Glucose POC Glucose 317 H Hemoglobin A1c 11.0 H Calcium Total Creatine Kinase 7255 H CK-MB (CK-2) 79.3 H CK-MB (CK-2) Rel Index Troponin T 5.540 H* D Triglycerides LDL Cholesterol Direct 03/19/20 03/19/20 03/19/20 08:08 08:08 08:08 WBC 13.3 H RBC Hgb Hct Lymph % (Auto) 10.7 L [place] % (Auto) 8.5 H [place] # 1.1 H Seg Neutrophils % 80.0 H Seg Neutrophils # 10.6 H Heparin Anti-Xa Level 0.10 L ABG pO2 ABG HCO3 ABG O2 Saturation ABG Base Excess ABG Hemoglobin Oxyhemoglobin Sodium 133 L Potassium 5.1 H Chloride Carbon Dioxide 17 L BUN 23 H Creatinine Glucose 313 H POC Glucose Hemoglobin A1c Calcium Total Creatine Kinase CK-MB (CK-2) CK-MB (CK-2) Rel Index Troponin T Triglycerides LDL Cholesterol Direct 03/19/20 03/19/20 03/19/20 15:40 18:23 21:32 WBC RBC Hgb Hct Lymph % (Auto) [place] % (Auto) [place] # Seg Neutrophils % Seg Neutrophils # Heparin Anti-Xa Level < 0.10 L ABG pO2 ABG HCO3 18.3 L ABG O2 Saturation ABG Base Excess -5.4 L ABG Hemoglobin 12.2 L Oxyhemoglobin 94.6 L Sodium Potassium Chloride Carbon Dioxide BUN Creatinine Glucose POC Glucose 348 H Hemoglobin A1c Calcium Total Creatine Kinase CK-MB (CK-2) CK-MB (CK-2) Rel Index Troponin T Triglycerides LDL Cholesterol Direct 03/20/20 03/20/20 03/20/20 04:35 05:12 05:12 WBC 11.1 H RBC 3.63 L Hgb 11.0 L Hct 32.7 L D Lymph % (Auto) [place] % (Auto) 8.1 H [place] # 0.9 H Seg Neutrophils % 75.8 H Seg Neutrophils # 8.4 H Heparin Anti-Xa Level 0.28 L ABG pO2 68.3 L ABG HCO3 ABG O2 Saturation 94.3 L ABG Base Excess ABG Hemoglobin 7.1 L Oxyhemoglobin 92.3 L Sodium Potassium Chloride Carbon Dioxide BUN Creatinine Glucose POC Glucose Hemoglobin A1c Calcium Total Creatine Kinase CK-MB (CK-2) CK-MB (CK-2) Rel Index Troponin T Triglycerides LDL Cholesterol Direct 03/20/20 03/20/20 03/20/20 05:12 07:49 12:15 WBC RBC Hgb Hct Lymph % (Auto) [place] % (Auto) [place] # Seg Neutrophils % Seg Neutrophils # Heparin Anti-Xa Level ABG pO2 ABG HCO3 ABG O2 Saturation ABG Base Excess ABG Hemoglobin Oxyhemoglobin Sodium 134 L Potassium Chloride Carbon Dioxide 21 L BUN 23 H Creatinine Glucose 275 H POC Glucose 294 H 357 H Hemoglobin A1c Calcium Total Creatine Kinase CK-MB (CK-2) CK-MB (CK-2) Rel Index Troponin T 3.200 H* D Triglycerides LDL Cholesterol Direct 03/20/20 03/20/20 03/21/20 17:16 22:08 04:44 WBC RBC Hgb Hct Lymph % (Auto) [place] % (Auto) [place] # Seg Neutrophils % Seg Neutrophils # Heparin Anti-Xa Level ABG pO2 ABG HCO3 ABG O2 Saturation ABG Base Excess ABG Hemoglobin Oxyhemoglobin Sodium 136 L Potassium Chloride Carbon Dioxide 18 L BUN 26 H Creatinine Glucose 266 H POC Glucose 327 H 292 H Hemoglobin A1c Calcium 8.1 L Total Creatine Kinase CK-MB (CK-2) CK-MB (CK-2) Rel Index Troponin T Triglycerides LDL Cholesterol Direct 03/21/20 03/21/20 03/21/20 07:50 12:25 15:53 WBC RBC Hgb Hct Lymph % (Auto) [place] % (Auto) [place] # Seg Neutrophils % Seg Neutrophils # Heparin Anti-Xa Level ABG pO2 ABG HCO3 ABG O2 Saturation ABG Base Excess ABG Hemoglobin Oxyhemoglobin Sodium Potassium Chloride Carbon Dioxide BUN Creatinine Glucose POC Glucose 271 H 314 H 436 H Hemoglobin A1c Calcium Total Creatine Kinase CK-MB (CK-2) CK-MB (CK-2) Rel Index Troponin T Triglycerides LDL Cholesterol Direct 03/21/20 03/21/20 03/22/20 17:44 21:55 04:33 WBC RBC Hgb 10.0 L Hct 29.4 L Lymph % (Auto) [place] % (Auto) [place] # Seg Neutrophils % Seg Neutrophils # Heparin Anti-Xa Level ABG pO2 ABG HCO3 ABG O2 Saturation ABG Base Excess ABG Hemoglobin Oxyhemoglobin Sodium Potassium Chloride Carbon Dioxide BUN Creatinine Glucose POC Glucose 362 H 329 H Hemoglobin A1c Calcium Total Creatine Kinase CK-MB (CK-2) CK-MB (CK-2) Rel Index Troponin T Triglycerides LDL Cholesterol Direct 03/22/20 03/22/20 08:57 14:12 WBC RBC Hgb Hct Lymph % (Auto) [place] % (Auto) [place] # Seg Neutrophils % Seg Neutrophils # Heparin Anti-Xa Level ABG pO2 ABG HCO3 ABG O2 Saturation ABG Base Excess ABG Hemoglobin Oxyhemoglobin Sodium Potassium Chloride Carbon Dioxide BUN Creatinine Glucose POC Glucose 284 H 319 H Hemoglobin A1c Calcium Total Creatine Kinase CK-MB (CK-2) CK-MB (CK-2) Rel Index Troponin T Triglycerides LDL Cholesterol Direct Allied health notes reviewed: nursing
--- NOTE | 2020-03-22 17:23 | Progress Note ---
Subjective Date of service: 03/22/20 Principal diagnosis: Acute limb ischemia; STARR; COPD; Ac hypoxemic resp failure; DM II; NSTEMI Interval history: s/p LLE endovascular revascularization and fasiciotomies patient HDS, labs stable patient states he is now having some feeling in the left foot, no motor discoloration of the left forefoot with associated blisters noted lower leg dressing clean and dry patient having significant pain with DIRECTOR PRESALES, will add oral pain meds patient to require BKA at some point Objective - Constitutional Vitals: Vital Signs - 12hr 03/22/20 03/22/20 03/22/20 05:21 05:31 05:41 Pulse Rate 98 H 104 H 113 H Pulse Rate [ Anterior Bilateral Throughout] Pulse Rate [ From Monitor] Pulse Rate [ Left Posterior Tibial] Pulse Rate [ Right Dorsalis Pedis] Respiratory 20 22 29 H Rate Respiratory Rate [Anterior Bilateral Throughout] Blood Pressure 143/95 156/99 141/105 O2 Sat by Pulse 100 99 95 Oximetry 03/22/20 03/22/20 03/22/20 05:51 06:01 06:11 Pulse Rate 111 H 114 H 114 H Pulse Rate [ Anterior Bilateral Throughout] Pulse Rate [ From Monitor] Pulse Rate [ Left Posterior Tibial] Pulse Rate [ Right Dorsalis Pedis] Respiratory 19 28 H 27 H Rate Respiratory Rate [Anterior Bilateral Throughout] Blood Pressure 151/131 153/106 153/106 O2 Sat by Pulse 94 92 95 Oximetry 03/22/20 03/22/20 03/22/20 06:21 06:31 06:41 Pulse Rate 110 H 113 H 113 H Pulse Rate [ Anterior Bilateral Throughout] Pulse Rate [ From Monitor] Pulse Rate [ Left Posterior Tibial] Pulse Rate [ Right Dorsalis Pedis] Respiratory 25 H 26 H 30 H Rate Respiratory Rate [Anterior Bilateral Throughout] Blood Pressure 146/98 153/104 153/104 O2 Sat by Pulse 96 97 97 Oximetry 03/22/20 03/22/20 03/22/20 06:51 07:01 07:11 Pulse Rate 114 H Pulse Rate [ Anterior Bilateral Throughout] Pulse Rate [ From Monitor] Pulse Rate [ Left Posterior Tibial] Pulse Rate [ Right Dorsalis Pedis] Respiratory 28 H Rate Respiratory Rate [Anterior Bilateral Throughout] Blood Pressure 153/104 153/104 119/81 O2 Sat by Pulse 96 95 97 Oximetry 03/22/20 03/22/20 03/22/20 07:21 07:30 07:41 Pulse Rate 114 H 112 H 109 H Pulse Rate [ Anterior Bilateral Throughout] Pulse Rate [ From Monitor] Pulse Rate [ Left Posterior Tibial] Pulse Rate [ Right Dorsalis Pedis] Respiratory 27 H 27 H 26 H Rate Respiratory Rate [Anterior Bilateral Throughout] Blood Pressure 115/76 116/79 116/79 O2 Sat by Pulse 97 96 97 Oximetry 03/22/20 03/22/20 03/22/20 07:51 07:56 08:00 Pulse Rate 112 H 105 H 109 H Pulse Rate [ 107 H Anterior Bilateral Throughout] Pulse Rate [ 112 H From Monitor] Pulse Rate [ 112 H Left Posterior Tibial] Pulse Rate [ 112 H Right Dorsalis Pedis] Respiratory 26 H 24 24 Rate Respiratory 24 Rate [Anterior Bilateral Throughout] Blood Pressure 121/82 114/80 115/83 O2 Sat by Pulse 96 100 100 Oximetry 03/22/20 03/22/20 03/22/20 08:11 08:21 08:30 Pulse Rate 106 H 106 H 107 H Pulse Rate [ Anterior Bilateral Throughout] Pulse Rate [ From Monitor] Pulse Rate [ Left Posterior Tibial] Pulse Rate [ Right Dorsalis Pedis] Respiratory 22 26 H 29 H Rate Respiratory Rate [Anterior Bilateral Throughout] Blood Pressure 115/83 114/80 120/81 O2 Sat by Pulse 100 100 99 Oximetry 03/22/20 03/22/20 03/22/20 08:41 08:51 09:00 Pulse Rate 104 H 111 H 111 H Pulse Rate [ Anterior Bilateral Throughout] Pulse Rate [ From Monitor] Pulse Rate [ Left Posterior Tibial] Pulse Rate [ Right Dorsalis Pedis] Respiratory 24 22 28 H Rate Respiratory Rate [Anterior Bilateral Throughout] Blood Pressure 120/81 119/83 121/86 O2 Sat by Pulse 100 99 100 Oximetry 03/22/20 03/22/20 03/22/20 09:11 09:21 09:31 Pulse Rate 122 H 119 H 116 H Pulse Rate [ Anterior Bilateral Throughout] Pulse Rate [ From Monitor] Pulse Rate [ Left Posterior Tibial] Pulse Rate [ Right Dorsalis Pedis] Respiratory 29 H 29 H 30 H Rate Respiratory Rate [Anterior Bilateral Throughout] Blood Pressure 120/81 120/81 120/81 O2 Sat by Pulse 96 97 97 Oximetry 03/22/20 03/22/20 03/22/20 09:41 09:51 10:01 Pulse Rate 123 H 121 H 115 H Pulse Rate [ Anterior Bilateral Throughout] Pulse Rate [ From Monitor] Pulse Rate [ Left Posterior Tibial] Pulse Rate [ Right Dorsalis Pedis] Respiratory 29 H 28 H 18 Rate Respiratory Rate [Anterior Bilateral Throughout] Blood Pressure 121/86 121/86 121/86 O2 Sat by Pulse 96 87 96 Oximetry 03/22/20 03/22/20 03/22/20 10:07 10:08 10:11 Pulse Rate 120 H 120 H 116 H Pulse Rate [ Anterior Bilateral Throughout] Pulse Rate [ From Monitor] Pulse Rate [ Left Posterior Tibial] Pulse Rate [ Right Dorsalis Pedis] Respiratory 29 H Rate Respiratory Rate [Anterior Bilateral Throughout] Blood Pressure 126/86 126/86 126/86 O2 Sat by Pulse 93 Oximetry 03/22/20 03/22/20 03/22/20 10:21 10:31 10:41 Pulse Rate 119 H 123 H 118 H Pulse Rate [ Anterior Bilateral Throughout] Pulse Rate [ From Monitor] Pulse Rate [ Left Posterior Tibial] Pulse Rate [ Right Dorsalis Pedis] Respiratory 32 H 34 H 32 H Rate Respiratory Rate [Anterior Bilateral Throughout] Blood Pressure 130/89 127/85 127/85 O2 Sat by Pulse 96 97 96 Oximetry 03/22/20 03/22/20 10:51 11:01 Pulse Rate 106 H 96 H Pulse Rate [ Anterior Bilateral Throughout] Pulse Rate [ From Monitor] Pulse Rate [ Left Posterior Tibial] Pulse Rate [ Right Dorsalis Pedis] Respiratory 27 H 26 H Rate Respiratory Rate [Anterior Bilateral Throughout] Blood Pressure 123/75 123/75 O2 Sat by Pulse 80 L 98 Oximetry - Labs CBC & Chem 7: 03/22/20 04:33 03/21/20 04:44 Labs: Abnormal lab results 03/21/20 03/21/20 03/21/20 Range/Units 15:53 17:44 21:55 Hgb (11.8-15.2) gm/dl Hct (35.5-45.6) % POC Glucose 436 H 362 H 329 H (70-105) 03/22/20 03/22/20 03/22/20 Range/Units 04:33 08:57 14:12 Hgb 10.0 L (11.8-15.2) gm/dl Hct 29.4 L (35.5-45.6) % POC Glucose 284 H 319 H (70-105) Medications & Allergies - Medications Allergies/Adverse Reactions: Allergies No Known Allergies Allergy (Unverified 03/18/20 15:17) Home Medications: Home Medications Medication Instructions Recorded Confirmed Last Taken Type AtorvaSTATin [Lipitor] 20 mg PO QHS 03/20/20 03/20/20 03/14/20 History Clopidogrel [Plavix] 75 mg PO QHS 03/20/20 03/20/20 03/14/20 History Famotidine [Acid Controller] 20 mg PO BID 03/20/20 03/20/20 03/14/20 History Fenofibrate Nanocrystallized 48 mg PO DAILY 03/20/20 03/20/20 03/14/20 History [Fenofibrate] Metoprolol Tartrate 25 mg PO BID 03/20/20 03/20/20 03/14/20 History Pregabalin [Lyrica] 150 mg PO BID 03/20/20 03/20/20 03/14/20 History amLODIPine [Norvasc] 5 mg PO DAILY 03/20/20 03/20/20 03/14/20 History glipiZIDE [Glucotrol] 10 mg PO BID 03/20/20 03/20/20 03/14/20 History hydroCHLOROthiazide [HCTZ] 25 mg PO QDAY 03/20/20 03/20/20 03/14/20 History lisinopriL [Zestril TAB] 40 mg PO QDAY 03/20/20 03/20/20 03/14/20 History Active Medications: Generic Name Dose Route Start Last Admin Trade Name Freq PRN Reason Stop Dose Admin Arformoterol Tartrate 15 mcg 03/19/20 20:00 03/22/20 07:56 Brovana Nebu IH 15 mcg Q12HRT LOI Administration Aspirin 81 mg 03/19/20 10:00 03/22/20 10:06 Halfprin Ec PO 81 mg QDAY LOI Administration Atorvastatin Calcium 40 mg 03/19/20 22:00 03/21/20 22:46 Lipitor PO 40 mg QHS LOI Administration Budesonide 0.5 mg 03/19/20 20:00 03/22/20 07:56 Pulmicort IH 0.5 mg Q12HRT LOI Administration Clopidogrel Bisulfate 75 mg 03/19/20 10:00 03/22/20 10:07 Plavix PO 75 mg QDAY LOI Administration Dextrose 50 ml 03/18/20 22:21 D50w (25gm) Syringe IV Q30MIN PRN Hypoglycemia Protocol Diphenhydramine HCl 25 mg 03/19/20 12:44 Benadryl IV Q4H PRN Itching Hydromorphone/Sodium Chloride 0 mg 03/19/20 13:00 03/21/20 14:01 Dilaudid Public Health Registrar 6mg/30ml IV 1 cart DIRECT LOI Administration Protocol Heparin Sodium/Sodium Chloride 25,000 unit in 500 mls @ 30 mls/hr 03/18/20 19:00 03/22/20 04:25 Heparin/ 0.45% Nacl-25,000 Unit/500 Ml IV 1,950 units/hr TITR LOI 39 mls/hr Administration Protocol 1,500 UNITS/HR Sodium Chloride 1,000 mls @ 75 mls/hr 03/19/20 10:19 03/22/20 04:25 Nacl 0.9% 1000 Ml IV 75 mls/hr DIRECT LOI Administration Insulin Glargine 25 units 03/22/20 22:00 Lantus SUB-Q QHS LOI Insulin Human Lispro 0 unit 03/20/20 16:30 03/22/20 10:09 Humalog SUB-Q 6 unit ACHS LOI Administration Protocol Lisinopril 5 mg 03/21/20 10:00 03/22/20 10:07 Zestril PO 5 mg QDAY LOI Administration Magnesium Hydroxide 30 ml 03/18/20 22:21 Milk Of Magnesia PO Q4H PRN Constipation Metoprolol Tartrate 50 mg 03/19/20 22:00 03/22/20 10:08 Metoprolol PO 50 mg BID LOI Administration Naloxone HCl 0.1 mg 03/19/20 12:44 Naloxone IV Q2MIN PRN Res Rate </= 8 or 02 SAT < 92% Ondansetron HCl 4 mg 03/18/20 22:21 Zofran IV Q8H PRN Nausea And Vomiting Pantoprazole Sodium 40 mg 03/20/20 10:00 03/22/20 10:06 Protonix PO 40 mg BID LOI Administration Pregabalin 150 mg 03/21/20 14:00 03/22/20 10:05 Pregabalin PO 150 mg BID LOI Administration Sodium Chloride 10 ml 03/19/20 10:00 03/22/20 10:08 Sodium Chloride Flush Syringe 10 Ml IV 10 ml BID LOI Administration Sodium Chloride 10 ml 03/18/20 22:21 Sodium Chloride Flush Syringe 10 Ml IV PRN PRN LINE FLUSH HEART Score - HEART Score Troponin: Troponin T 3.200 ng/mL (0.00-0.029) H* D 03/20/20 05:12
[2020-03-22] MEDS: HYDROcodone/ACETAMINOPHEN 5-325 MG TAB PO PRN ×2 (19:46→23:46)
[2020-03-22] MEDS: PREGABALIN 75 MG CAP PO SCH (22:11)
[2020-03-22] MEDS: INSULIN GLARGINE 100 UNITS/ML SUB-Q SCH (22:18)
[2020-03-23] MEDS: HEPARIN/ 0.45% NACL DRIP 25,000 UNIT/500 ML BAG IV SCH ×2 (05:40→18:25)
[2020-03-23] MEDS: HYDROcodone/ACETAMINOPHEN 5-325 MG TAB PO PRN ×3 (06:47→15:26)
[2020-03-23] MEDS: HYDROmorphone/NS 6 MG/30 ML PCA INJ IV SCH ×2 (07:26→19:21)
[2020-03-23] MEDS: ARFORMOTEROL 15 MCG/2 ML NEBU IH SCH ×2 (07:54→20:56)
[2020-03-23] MEDS: BUDESONIDE 0.5 MG/2 ML NEBU IH SCH ×2 (07:54→21:00)
[2020-03-23] MEDS: [UNRECOGNIZED DRUG - REMARK] SUB-Q SCH ×4 (09:08→22:25)
[2020-03-23] MEDS: METOPROLOL TARTRATE 50 MG TAB PO SCH ×2 (09:09→21:47)
[2020-03-23] MEDS: ASPIRIN EC 81 MG TAB PO SCH (09:09)
[2020-03-23] MEDS: LISINOPRIL 5 MG TAB PO SCH (09:10)
[2020-03-23] MEDS: CLOPIDOGREL 75 MG TAB PO SCH (09:10)
[2020-03-23] MEDS: PREGABALIN 75 MG CAP PO SCH ×2 (09:10→21:47)
[2020-03-23] MEDS: PANTOPRAZOLE 40 MG TAB PO SCH ×2 (09:10→21:47)
[2020-03-23] MEDS: SODIUM CHLORIDE 0.9% 1000 ML 1,000 ML IV SCH (09:27)
--- NOTE | 2020-03-23 13:43 | Progress Note ---
Assessment and Plan 54 year old male with multiple medical issues including multiple venous thrombotic events, active smoking, and elevated troponins who presents with ischemic left lower extremity. Discussed situation with patient and patient agreed to left below-knee amputation. Consent signed. Risks, benefits, and alternatives discussed. Plan for procedure on Wednesday or Wednesday. Patient has Medicaid. Discussed with nurse to get pillowcase maker to update his insurance information as this will become very important when rehab options are being evaluated. Patient will need acute rehab afterwards. Subjective Date of service: 03/23/20 Principal diagnosis: Acute limb ischemia; STARR; COPD; Ac hypoxemic resp failure; DM II; NSTEMI Interval history: Has pain at left lower extremity fasciotomy sites. Left lower extremity is hot to the level of the ankle. Foot is cold and mottled and demarcating. Foot not salvageable from time of arrival. Patient will need left below-knee amputation, discussed this with patient and risks, benefits, and alternatives discussed. Patient has also agreed to have blood if necessary, but "does not want the bad blood" which I explained to him all blood is screened and he became more agreeable. Objective - Constitutional Vitals: Vital Signs - 12hr 03/23/20 03/23/20 03/23/20 01:40 01:50 02:00 Temperature Pulse Rate 81 79 80 Pulse Rate [ Anterior Bilateral Throughout] Pulse Rate [ From Monitor] Respiratory 22 16 19 Rate Respiratory Rate [Anterior Bilateral Throughout] Blood Pressure 86/59 86/59 88/61 O2 Sat by Pulse 97 99 100 Oximetry 03/23/20 03/23/20 03/23/20 02:10 02:20 02:30 Temperature Pulse Rate 79 77 74 Pulse Rate [ Anterior Bilateral Throughout] Pulse Rate [ From Monitor] Respiratory 18 14 20 Rate Respiratory Rate [Anterior Bilateral Throughout] Blood Pressure 88/61 88/61 88/61 O2 Sat by Pulse 100 100 100 Oximetry 03/23/20 03/23/20 03/23/20 02:39 02:40 02:50 Temperature Pulse Rate 73 74 Pulse Rate [ Anterior Bilateral Throughout] Pulse Rate [ From Monitor] Respiratory 21 20 20 Rate Respiratory Rate [Anterior Bilateral Throughout] Blood Pressure 88/61 88/61 O2 Sat by Pulse 100 100 100 Oximetry 03/23/20 03/23/20 03/23/20 03:00 03:10 03:20 Temperature Pulse Rate 76 76 77 Pulse Rate [ Anterior Bilateral Throughout] Pulse Rate [ From Monitor] Respiratory 22 20 20 Rate Respiratory Rate [Anterior Bilateral Throughout] Blood Pressure 85/58 85/58 85/58 O2 Sat by Pulse 100 100 100 Oximetry 03/23/20 03/23/20 03/23/20 03:30 03:36 03:40 Temperature 98.7 F Pulse Rate 75 79 Pulse Rate [ Anterior Bilateral Throughout] Pulse Rate [ From Monitor] Respiratory 19 15 Rate Respiratory Rate [Anterior Bilateral Throughout] Blood Pressure 85/58 85/58 O2 Sat by Pulse 100 100 Oximetry 03/23/20 03/23/20 03/23/20 03:50 04:00 04:10 Temperature Pulse Rate 78 75 76 Pulse Rate [ Anterior Bilateral Throughout] Pulse Rate [ From Monitor] Respiratory 20 21 20 Rate Respiratory Rate [Anterior Bilateral Throughout] Blood Pressure 85/58 83/58 83/58 O2 Sat by Pulse 99 100 100 Oximetry 03/23/20 03/23/20 03/23/20 04:17 04:20 04:29 Temperature Pulse Rate 75 81 75 Pulse Rate [ Anterior Bilateral Throughout] Pulse Rate [ From Monitor] Respiratory 20 20 21 Rate Respiratory Rate [Anterior Bilateral Throughout] Blood Pressure 83/58 83/58 O2 Sat by Pulse 100 100 100 Oximetry 03/23/20 03/23/20 03/23/20 04:30 04:40 04:50 Temperature Pulse Rate 86 86 80 Pulse Rate [ Anterior Bilateral Throughout] Pulse Rate [ From Monitor] Respiratory 20 21 18 Rate Respiratory Rate [Anterior Bilateral Throughout] Blood Pressure 83/58 83/58 83/58 O2 Sat by Pulse 99 99 98 Oximetry 03/23/20 03/23/20 03/23/20 05:00 05:10 05:20 Temperature Pulse Rate 83 82 82 Pulse Rate [ Anterior Bilateral Throughout] Pulse Rate [ From Monitor] Respiratory 20 17 17 Rate Respiratory Rate [Anterior Bilateral Throughout] Blood Pressure 96/69 96/69 96/69 O2 Sat by Pulse 98 100 100 Oximetry 03/23/20 03/23/20 03/23/20 05:30 05:40 05:50 Temperature Pulse Rate 82 87 91 H Pulse Rate [ Anterior Bilateral Throughout] Pulse Rate [ From Monitor] Respiratory 22 20 22 Rate Respiratory Rate [Anterior Bilateral Throughout] Blood Pressure 96/69 96/69 96/69 O2 Sat by Pulse 100 100 97 Oximetry 03/23/20 03/23/20 03/23/20 05:55 06:00 06:10 Temperature Pulse Rate 90 97 H Pulse Rate [ Anterior Bilateral Throughout] Pulse Rate [ From Monitor] Respiratory 19 25 H Rate Respiratory Rate [Anterior Bilateral Throughout] Blood Pressure 99/75 99/75 O2 Sat by Pulse 99 99 99 Oximetry 03/23/20 03/23/20 03/23/20 06:20 06:30 06:40 Temperature Pulse Rate 94 H 95 H 94 H Pulse Rate [ Anterior Bilateral Throughout] Pulse Rate [ From Monitor] Respiratory 21 23 24 Rate Respiratory Rate [Anterior Bilateral Throughout] Blood Pressure 99/75 99/75 99/75 O2 Sat by Pulse 98 98 99 Oximetry 03/23/20 03/23/20 03/23/20 06:47 06:50 07:00 Temperature Pulse Rate 104 H 95 H Pulse Rate [ Anterior Bilateral Throughout] Pulse Rate [ From Monitor] Respiratory 21 25 H 25 H Rate Respiratory Rate [Anterior Bilateral Throughout] Blood Pressure 99/75 103/72 O2 Sat by Pulse 98 98 Oximetry 03/23/20 03/23/20 03/23/20 07:10 07:20 07:30 Temperature Pulse Rate 101 H 102 H 94 H Pulse Rate [ Anterior Bilateral Throughout] Pulse Rate [ From Monitor] Respiratory 25 H 18 25 H Rate Respiratory Rate [Anterior Bilateral Throughout] Blood Pressure 103/72 103/72 103/72 O2 Sat by Pulse 100 92 98 Oximetry 03/23/20 03/23/20 03/23/20 07:38 07:40 07:50 Temperature Pulse Rate 94 H 90 Pulse Rate [ Anterior Bilateral Throughout] Pulse Rate [ From Monitor] Respiratory 21 19 13 Rate Respiratory Rate [Anterior Bilateral Throughout] Blood Pressure 103/72 103/72 O2 Sat by Pulse 96 98 Oximetry 03/23/20 03/23/20 03/23/20 07:54 08:00 08:10 Temperature 98.8 F Pulse Rate 93 H 93 H Pulse Rate [ 88 Anterior Bilateral Throughout] Pulse Rate [ 87 From Monitor] Respiratory 15 20 Rate Respiratory 18 Rate [Anterior Bilateral Throughout] Blood Pressure 97/58 97/58 O2 Sat by Pulse 99 99 100 Oximetry 03/23/20 03/23/20 03/23/20 08:20 08:30 08:40 Temperature Pulse Rate 96 H 85 82 Pulse Rate [ Anterior Bilateral Throughout] Pulse Rate [ From Monitor] Respiratory 20 15 15 Rate Respiratory Rate [Anterior Bilateral Throughout] Blood Pressure 97/58 97/58 97/58 O2 Sat by Pulse 96 97 97 Oximetry 03/23/20 03/23/20 03/23/20 08:50 09:00 09:09 Temperature Pulse Rate 85 86 97 H Pulse Rate [ Anterior Bilateral Throughout] Pulse Rate [ From Monitor] Respiratory 14 11 L Rate Respiratory Rate [Anterior Bilateral Throughout] Blood Pressure 97/58 89/63 89/63 O2 Sat by Pulse 98 98 Oximetry 03/23/20 03/23/20 03/23/20 09:10 09:20 09:30 Temperature Pulse Rate 92 H 99 H 100 H Pulse Rate [ Anterior Bilateral Throughout] Pulse Rate [ From Monitor] Respiratory 21 17 23 Rate Respiratory Rate [Anterior Bilateral Throughout] Blood Pressure 89/63 89/63 89/63 O2 Sat by Pulse 98 92 95 Oximetry 03/23/20 03/23/20 03/23/20 09:40 09:50 10:00 Temperature Pulse Rate 98 H 94 H 93 H Pulse Rate [ Anterior Bilateral Throughout] Pulse Rate [ From Monitor] Respiratory 22 17 16 Rate Respiratory Rate [Anterior Bilateral Throughout] Blood Pressure 89/63 89/63 98/69 O2 Sat by Pulse 99 100 98 Oximetry 03/23/20 03/23/20 03/23/20 10:10 10:20 10:30 Temperature Pulse Rate 93 H 97 H 97 H Pulse Rate [ Anterior Bilateral Throughout] Pulse Rate [ From Monitor] Respiratory 21 18 24 Rate Respiratory Rate [Anterior Bilateral Throughout] Blood Pressure 98/69 98/69 98/69 O2 Sat by Pulse 99 99 97 Oximetry 03/23/20 03/23/20 03/23/20 10:40 10:50 11:00 Temperature Pulse Rate 98 H 101 H 98 H Pulse Rate [ Anterior Bilateral Throughout] Pulse Rate [ From Monitor] Respiratory 19 17 17 Rate Respiratory Rate [Anterior Bilateral Throughout] Blood Pressure 98/69 98/69 87/72 O2 Sat by Pulse 100 100 100 Oximetry General appearance: Present: mild distress (Left lower extremity pain with movement) - EENT Eyes: EOM intact ENT: hearing intact - Respiratory Respiratory effort: normal Extremities: abnormal (see subjective) - Psychiatric Psychiatric: appropriate mood/affect, cooperative - Labs CBC & Chem 7: 03/22/20 04:33 03/21/20 04:44 Labs: Abnormal lab results 03/22/20 03/22/20 03/22/20 Range/Units 08:57 14:12 19:57 POC Glucose 284 H 319 H 356 H (70-105) 03/22/20 03/23/20 Range/Units 21:44 08:18 POC Glucose 336 H 215 H (70-105) Medications & Allergies - Medications Allergies/Adverse Reactions: Allergies No Known Allergies Allergy (Unverified 03/18/20 15:17) Home Medications: Home Medications Medication Instructions Recorded Confirmed Last Taken Type AtorvaSTATin [Lipitor] 20 mg PO QHS 03/20/20 03/20/20 03/14/20 History Clopidogrel [Plavix] 75 mg PO QHS 03/20/20 03/20/20 03/14/20 History Famotidine [Acid Controller] 20 mg PO BID 03/20/20 03/20/20 03/14/20 History Fenofibrate Nanocrystallized 48 mg PO DAILY 03/20/20 03/20/20 03/14/20 History [Fenofibrate] Metoprolol Tartrate 25 mg PO BID 03/20/20 03/20/20 03/14/20 History Pregabalin [Lyrica] 150 mg PO BID 03/20/20 03/20/20 03/14/20 History amLODIPine [Norvasc] 5 mg PO DAILY 03/20/20 03/20/20 03/14/20 History glipiZIDE [Glucotrol] 10 mg PO BID 03/20/20 03/20/20 03/14/20 History hydroCHLOROthiazide [HCTZ] 25 mg PO QDAY 03/20/20 03/20/20 03/14/20 History lisinopriL [Zestril TAB] 40 mg PO QDAY 03/20/20 03/20/20 03/14/20 History Active Medications: Generic Name Dose Route Start Last Admin Trade Name Freq PRN Reason Stop Dose Admin Acetaminophen/Hydrocodone Bitart 2 each 03/22/20 17:18 03/23/20 11:13 [place] 5/325 PO 2 each Q4H PRN Administration Pain, Moderate (4-6) Arformoterol Tartrate 15 mcg 03/19/20 20:00 03/23/20 07:54 Brovana Nebu IH 15 mcg Q12HRT LOI Administration Aspirin 81 mg 03/19/20 10:00 03/23/20 09:09 Halfprin Ec PO 81 mg QDAY LOI Administration Atorvastatin Calcium 40 mg 03/19/20 22:00 03/22/20 22:11 Lipitor PO 40 mg QHS LOI Administration Budesonide 0.5 mg 03/19/20 20:00 03/23/20 07:54 Pulmicort IH 0.5 mg Q12HRT LOI Administration Clopidogrel Bisulfate 75 mg 03/19/20 10:00 03/23/20 09:10 Plavix PO 75 mg QDAY LOI Administration Dextrose 50 ml 03/18/20 22:21 D50w (25gm) Syringe IV Q30MIN PRN Hypoglycemia Protocol Diphenhydramine HCl 25 mg 03/19/20 12:44 Benadryl IV Q4H PRN Itching Hydromorphone/Sodium Chloride 0 mg 03/19/20 13:00 03/23/20 07:26 Dilaudid Drier Attendant 6mg/30ml IV 6 cart DIRECT LOI Administration Protocol Heparin Sodium/Sodium Chloride 25,000 unit in 500 mls @ 30 mls/hr 03/18/20 19:00 03/23/20 05:40 Heparin/ 0.45% Nacl-25,000 Unit/500 Ml IV 1,950 units/hr TITR LOI 39 mls/hr Administration Protocol 1,500 UNITS/HR Sodium Chloride 1,000 mls @ 75 mls/hr 03/19/20 10:19 03/23/20 09:27 Nacl 0.9% 1000 Ml IV 75 mls/hr DIRECT LOI Administration Insulin Glargine 25 units 03/22/20 22:00 03/22/20 22:18 Lantus SUB-Q 25 units QHS LOI Administration Insulin Human Lispro 0 unit 03/20/20 16:30 03/23/20 12:42 Humalog SUB-Q 6 unit ACHS LOI Administration Protocol Lisinopril 5 mg 03/21/20 10:00 03/23/20 09:10 Zestril PO 5 mg QDAY LOI Administration Magnesium Hydroxide 30 ml 03/18/20 22:21 Milk Of Magnesia PO Q4H PRN Constipation Metoprolol Tartrate 50 mg 03/19/20 22:00 03/23/20 09:09 Metoprolol PO Not Given BID LOI Naloxone HCl 0.1 mg 03/19/20 12:44 Naloxone IV Q2MIN PRN Res Rate </= 8 or 02 SAT < 92% Ondansetron HCl 4 mg 03/18/20 22:21 Zofran IV Q8H PRN Nausea And Vomiting Pantoprazole Sodium 40 mg 03/20/20 10:00 03/23/20 09:10 Protonix PO 40 mg BID LOI Administration Pregabalin 150 mg 03/22/20 22:00 03/23/20 09:10 Pregabalin PO 150 mg BID LOI Administration Sodium Chloride 10 ml 03/19/20 10:00 03/23/20 09:11 Sodium Chloride Flush Syringe 10 Ml IV 10 ml BID LOI Administration Sodium Chloride 10 ml 03/18/20 22:21 03/22/20 19:52 Sodium Chloride Flush Syringe 10 Ml IV 10 ml PRN PRN Administration LINE FLUSH HEART Score - HEART Score Troponin: Troponin T 3.200 ng/mL (0.00-0.029) H* D 03/20/20 05:12
--- NOTE | 2020-03-23 15:13 | Progress Note ---
Assessment and Plan Acute limb ischemia S/P revascularization surgery. Obstructive sleep apnea. History of chronic obstructive pulmonary disease. Acute hypoxemic respiratory failure. Diabetes. History of coronary artery disease. Non-ST elevation myocardial infarction. Acute coronary syndrome. History of cerebrovascular accident. (Overall left foot is pinker and warmer and less symptomatic) - no new issues today, continue care as below; - continue antiplatelet therapy with heparin IV and Plavix - further surgical intervention per Vascular team - accuchecks with glycemic control per SSI (While critically ill target blood glucose of 140-180 mg/dL; avoid hypoglycemia) - wean supplemental oxygen for target O2 sat's > 90% acutely - prn bronchodilators with pulmonary hygiene per RT - avoid benzodiazepine's, reduce the possibility of delirium - AB's per surgery rec's (No S&S of overwhelming sepsis) - prn analgesia per pain score - Maintenance of sleep-wake cycle, avoid delirium - aspiration precautions - G.I. & VTE prophylaxis - PT/OT/ROM exercises - mobility protocols for pressure ulcer prophylaxis - Monitor hemodynamics closely - continue other care per attending / other consultants - discharge planning ongoing concurrently - transferred to telemetry .... Re-evaluate in am & prn Subjective Date of service: 03/23/20 Principal diagnosis: Acute limb ischemia; STARR; COPD; Ac hypoxemic resp failure; DM II; NSTEMI Interval history: Patient is seen today for: Acute limb ischemia S/P revascularization surgery; OS A; COPD; Acute hypoxemic respiratory failure; DM II; NSTEMI; H/O CVA Seen and examined at bedside; 24hour events reviewed; nursing and respiratory care staff consulted; no adverse overnight events reported to me; resting peacefully in bed; now with humidified BIPAP; no N/V/F/C; discussed with vascular team and will transfer to telemetry Objective Vital Signs - 12hr 03/23/20 03/23/20 03/23/20 03:20 03:30 03:36 Temperature 98.7 F Pulse Rate 77 75 Pulse Rate [ Anterior Bilateral Throughout] Pulse Rate [ From Monitor] Respiratory 20 19 Rate Respiratory Rate [Anterior Bilateral Throughout] Blood Pressure 85/58 85/58 O2 Sat by Pulse 100 100 Oximetry 03/23/20 03/23/20 03/23/20 03:40 03:50 04:00 Temperature Pulse Rate 79 78 75 Pulse Rate [ Anterior Bilateral Throughout] Pulse Rate [ From Monitor] Respiratory 15 20 21 Rate Respiratory Rate [Anterior Bilateral Throughout] Blood Pressure 85/58 85/58 83/58 O2 Sat by Pulse 100 99 100 Oximetry 03/23/20 03/23/20 03/23/20 04:10 04:17 04:20 Temperature Pulse Rate 76 75 81 Pulse Rate [ Anterior Bilateral Throughout] Pulse Rate [ From Monitor] Respiratory 20 20 20 Rate Respiratory Rate [Anterior Bilateral Throughout] Blood Pressure 83/58 83/58 83/58 O2 Sat by Pulse 100 100 100 Oximetry 03/23/20 03/23/20 03/23/20 04:29 04:30 04:40 Temperature Pulse Rate 75 86 86 Pulse Rate [ Anterior Bilateral Throughout] Pulse Rate [ From Monitor] Respiratory 21 20 21 Rate Respiratory Rate [Anterior Bilateral Throughout] Blood Pressure 83/58 83/58 O2 Sat by Pulse 100 99 99 Oximetry 03/23/20 03/23/20 03/23/20 04:50 05:00 05:10 Temperature Pulse Rate 80 83 82 Pulse Rate [ Anterior Bilateral Throughout] Pulse Rate [ From Monitor] Respiratory 18 20 17 Rate Respiratory Rate [Anterior Bilateral Throughout] Blood Pressure 83/58 96/69 96/69 O2 Sat by Pulse 98 98 100 Oximetry 03/23/20 03/23/20 03/23/20 05:20 05:30 05:40 Temperature Pulse Rate 82 82 87 Pulse Rate [ Anterior Bilateral Throughout] Pulse Rate [ From Monitor] Respiratory 17 22 20 Rate Respiratory Rate [Anterior Bilateral Throughout] Blood Pressure 96/69 96/69 96/69 O2 Sat by Pulse 100 100 100 Oximetry 03/23/20 03/23/20 03/23/20 05:50 05:55 06:00 Temperature Pulse Rate 91 H 90 Pulse Rate [ Anterior Bilateral Throughout] Pulse Rate [ From Monitor] Respiratory 22 19 Rate Respiratory Rate [Anterior Bilateral Throughout] Blood Pressure 96/69 99/75 O2 Sat by Pulse 97 99 99 Oximetry 03/23/20 03/23/20 03/23/20 06:10 06:20 06:30 Temperature Pulse Rate 97 H 94 H 95 H Pulse Rate [ Anterior Bilateral Throughout] Pulse Rate [ From Monitor] Respiratory 25 H 21 23 Rate Respiratory Rate [Anterior Bilateral Throughout] Blood Pressure 99/75 99/75 99/75 O2 Sat by Pulse 99 98 98 Oximetry 03/23/20 03/23/20 03/23/20 06:40 06:47 06:50 Temperature Pulse Rate 94 H 104 H Pulse Rate [ Anterior Bilateral Throughout] Pulse Rate [ From Monitor] Respiratory 24 21 25 H Rate Respiratory Rate [Anterior Bilateral Throughout] Blood Pressure 99/75 99/75 O2 Sat by Pulse 99 98 Oximetry 03/23/20 03/23/20 03/23/20 07:00 07:10 07:20 Temperature Pulse Rate 95 H 101 H 102 H Pulse Rate [ Anterior Bilateral Throughout] Pulse Rate [ From Monitor] Respiratory 25 H 25 H 18 Rate Respiratory Rate [Anterior Bilateral Throughout] Blood Pressure 103/72 103/72 103/72 O2 Sat by Pulse 98 100 92 Oximetry 03/23/20 03/23/20 03/23/20 07:30 07:38 07:40 Temperature Pulse Rate 94 H 94 H Pulse Rate [ Anterior Bilateral Throughout] Pulse Rate [ From Monitor] Respiratory 25 H 21 19 Rate Respiratory Rate [Anterior Bilateral Throughout] Blood Pressure 103/72 103/72 O2 Sat by Pulse 98 96 Oximetry 03/23/20 03/23/20 03/23/20 07:50 07:54 08:00 Temperature 98.8 F Pulse Rate 90 93 H Pulse Rate [ 88 Anterior Bilateral Throughout] Pulse Rate [ 87 From Monitor] Respiratory 13 15 Rate Respiratory 18 Rate [Anterior Bilateral Throughout] Blood Pressure 103/72 97/58 O2 Sat by Pulse 98 99 99 Oximetry 03/23/20 03/23/20 03/23/20 08:10 08:20 08:30 Temperature Pulse Rate 93 H 96 H 85 Pulse Rate [ Anterior Bilateral Throughout] Pulse Rate [ From Monitor] Respiratory 20 20 15 Rate Respiratory Rate [Anterior Bilateral Throughout] Blood Pressure 97/58 97/58 97/58 O2 Sat by Pulse 100 96 97 Oximetry 03/23/20 03/23/20 03/23/20 08:40 08:50 09:00 Temperature Pulse Rate 82 85 86 Pulse Rate [ Anterior Bilateral Throughout] Pulse Rate [ From Monitor] Respiratory 15 14 11 L Rate Respiratory Rate [Anterior Bilateral Throughout] Blood Pressure 97/58 97/58 89/63 O2 Sat by Pulse 97 98 98 Oximetry 03/23/20 03/23/20 03/23/20 09:09 09:10 09:20 Temperature Pulse Rate 97 H 92 H 99 H Pulse Rate [ Anterior Bilateral Throughout] Pulse Rate [ From Monitor] Respiratory 21 17 Rate Respiratory Rate [Anterior Bilateral Throughout] Blood Pressure 89/63 89/63 89/63 O2 Sat by Pulse 98 92 Oximetry 03/23/20 03/23/20 03/23/20 09:30 09:40 09:50 Temperature Pulse Rate 100 H 98 H 94 H Pulse Rate [ Anterior Bilateral Throughout] Pulse Rate [ From Monitor] Respiratory 23 22 17 Rate Respiratory Rate [Anterior Bilateral Throughout] Blood Pressure 89/63 89/63 89/63 O2 Sat by Pulse 95 99 100 Oximetry 03/23/20 03/23/20 03/23/20 10:00 10:10 10:20 Temperature Pulse Rate 93 H 93 H 97 H Pulse Rate [ Anterior Bilateral Throughout] Pulse Rate [ From Monitor] Respiratory 16 21 18 Rate Respiratory Rate [Anterior Bilateral Throughout] Blood Pressure 98/69 98/69 98/69 O2 Sat by Pulse 98 99 99 Oximetry 03/23/20 03/23/20 03/23/20 10:30 10:40 10:50 Temperature Pulse Rate 97 H 98 H 101 H Pulse Rate [ Anterior Bilateral Throughout] Pulse Rate [ From Monitor] Respiratory 24 19 17 Rate Respiratory Rate [Anterior Bilateral Throughout] Blood Pressure 98/69 98/69 98/69 O2 Sat by Pulse 97 100 100 Oximetry 03/23/20 03/23/20 03/23/20 11:00 11:10 11:20 Temperature Pulse Rate 98 H 99 H 91 H Pulse Rate [ Anterior Bilateral Throughout] Pulse Rate [ From Monitor] Respiratory 17 24 12 Rate Respiratory Rate [Anterior Bilateral Throughout] Blood Pressure 87/72 87/72 87/72 O2 Sat by Pulse 100 97 99 Oximetry 03/23/20 03/23/20 03/23/20 11:30 11:40 11:50 Temperature Pulse Rate 89 89 89 Pulse Rate [ Anterior Bilateral Throughout] Pulse Rate [ From Monitor] Respiratory 13 10 L 14 Rate Respiratory Rate [Anterior Bilateral Throughout] Blood Pressure 87/72 87/72 87/72 O2 Sat by Pulse 100 100 100 Oximetry 03/23/20 03/23/20 03/23/20 12:00 12:11 12:21 Temperature Pulse Rate 88 88 98 H Pulse Rate [ Anterior Bilateral Throughout] Pulse Rate [ 88 From Monitor] Respiratory 15 14 22 Rate Respiratory Rate [Anterior Bilateral Throughout] Blood Pressure 87/72 87/72 O2 Sat by Pulse 100 100 100 Oximetry 03/23/20 03/23/20 03/23/20 12:31 12:41 12:51 Temperature Pulse Rate 104 H 95 H 101 H Pulse Rate [ Anterior Bilateral Throughout] Pulse Rate [ From Monitor] Respiratory 22 17 25 H Rate Respiratory Rate [Anterior Bilateral Throughout] Blood Pressure 87/72 87/72 87/72 O2 Sat by Pulse 98 94 94 Oximetry 03/23/20 03/23/20 03/23/20 13:01 13:11 13:21 Temperature Pulse Rate 108 H 101 H 100 H Pulse Rate [ Anterior Bilateral Throughout] Pulse Rate [ From Monitor] Respiratory 19 21 22 Rate Respiratory Rate [Anterior Bilateral Throughout] Blood Pressure 87/72 95/71 95/71 O2 Sat by Pulse 98 97 97 Oximetry 03/23/20 03/23/20 03/23/20 13:31 13:41 13:51 Temperature Pulse Rate 98 H 96 H 94 H Pulse Rate [ Anterior Bilateral Throughout] Pulse Rate [ From Monitor] Respiratory 18 16 18 Rate Respiratory Rate [Anterior Bilateral Throughout] Blood Pressure 95/71 95/71 95/71 O2 Sat by Pulse 99 98 99 Oximetry 03/23/20 03/23/20 14:01 14:11 Temperature Pulse Rate 99 H 91 H Pulse Rate [ Anterior Bilateral Throughout] Pulse Rate [ From Monitor] Respiratory 21 14 Rate Respiratory Rate [Anterior Bilateral Throughout] Blood Pressure 107/75 107/75 O2 Sat by Pulse 99 99 Oximetry Constitutional: appears uncomfortable, other (middle aged obese male with mildly increased respiratory effort at rest) Eyes: non-icteric ENT: oropharynx moist Neck: supple, no lymphadenopathy, no JVD Effort: mildly labored Ascultation: Bilateral: clear, diminished breath sounds Percussion: Bilateral: not dull Cardiovascular: regular rate and rhythm Gastrointestinal: normoactive bowel sounds, soft, non-tender, non-distended (protuberant) Integumentary: rash, other (cool left foot anterior plantar surface) Extremities: cool, edema, other (dressing to left leg post fasciotomy) Neurologic: normal mental status, non-focal exam, pupils equal and round, motor strength normal and (limited by pasin in left leg) Psychiatric: mood appropriate, affect normal CBC and BMP: 03/22/20 04:33 03/21/20 04:44 ABG, PT/INR, D-dimer: ABG ABG pH 7.405 pH Units (7.350-7.450) 03/20/20 04:35 ABG pCO2 40.3 mm Hg 03/20/20 04:35 ABG pO2 68.3 mm Hg (80.0-90.0) L 03/20/20 04:35 ABG O2 Saturation 94.3 % (95.0-99.0) L 03/20/20 04:35 PT/INR, D-dimer PT 12.7 Sec. (12.2-14.9) 03/19/20 08:08 INR 0.94 (0.87-1.13) 03/19/20 08:08 Abnormal lab findings: Abnormal Labs 03/18/20 03/18/20 03/18/20 18:28 18:28 20:56 WBC 12.3 H RBC Hgb Hct Lymph % (Auto) 11.0 L [place] % (Auto) 9.8 H [place] # 1.2 H Seg Neutrophils % 78.4 H Seg Neutrophils # 9.6 H Heparin Anti-Xa Level ABG pO2 ABG HCO3 ABG O2 Saturation ABG Base Excess ABG Hemoglobin Oxyhemoglobin Sodium 132 L Potassium Chloride 91.9 L Carbon Dioxide 20 L BUN Creatinine 1.4 H Glucose 406 H POC Glucose Hemoglobin A1c Calcium Total Creatine Kinase 2727 H 2492 H CK-MB (CK-2) 135.9 H 107.2 H CK-MB (CK-2) Rel Index 4.3 H Troponin T 5.110 H* 3.960 H* D Triglycerides 188 H LDL Cholesterol Direct 141 H 03/18/20 03/19/20 03/19/20 22:21 01:57 08:08 WBC RBC Hgb Hct Lymph % (Auto) [place] % (Auto) [place] # Seg Neutrophils % Seg Neutrophils # Heparin Anti-Xa Level ABG pO2 ABG HCO3 ABG O2 Saturation ABG Base Excess ABG Hemoglobin Oxyhemoglobin Sodium Potassium Chloride Carbon Dioxide BUN Creatinine Glucose POC Glucose 317 H Hemoglobin A1c 11.0 H Calcium Total Creatine Kinase 7255 H CK-MB (CK-2) 79.3 H CK-MB (CK-2) Rel Index Troponin T 5.540 H* D Triglycerides LDL Cholesterol Direct 03/19/20 03/19/20 03/19/20 08:08 08:08 08:08 WBC 13.3 H RBC Hgb Hct Lymph % (Auto) 10.7 L [place] % (Auto) 8.5 H [place] # 1.1 H Seg Neutrophils % 80.0 H Seg Neutrophils # 10.6 H Heparin Anti-Xa Level 0.10 L ABG pO2 ABG HCO3 ABG O2 Saturation ABG Base Excess ABG Hemoglobin Oxyhemoglobin Sodium 133 L Potassium 5.1 H Chloride Carbon Dioxide 17 L BUN 23 H Creatinine Glucose 313 H POC Glucose Hemoglobin A1c Calcium Total Creatine Kinase CK-MB (CK-2) CK-MB (CK-2) Rel Index Troponin T Triglycerides LDL Cholesterol Direct 03/19/20 03/19/20 03/19/20 15:40 18:23 21:32 WBC RBC Hgb Hct Lymph % (Auto) [place] % (Auto) [place] # Seg Neutrophils % Seg Neutrophils # Heparin Anti-Xa Level < 0.10 L ABG pO2 ABG HCO3 18.3 L ABG O2 Saturation ABG Base Excess -5.4 L ABG Hemoglobin 12.2 L Oxyhemoglobin 94.6 L Sodium Potassium Chloride Carbon Dioxide BUN Creatinine Glucose POC Glucose 348 H Hemoglobin A1c Calcium Total Creatine Kinase CK-MB (CK-2) CK-MB (CK-2) Rel Index Troponin T Triglycerides LDL Cholesterol Direct 03/20/20 03/20/20 03/20/20 04:35 05:12 05:12 WBC 11.1 H RBC 3.63 L Hgb 11.0 L Hct 32.7 L D Lymph % (Auto) [place] % (Auto) 8.1 H [place] # 0.9 H Seg Neutrophils % 75.8 H Seg Neutrophils # 8.4 H Heparin Anti-Xa Level 0.28 L ABG pO2 68.3 L ABG HCO3 ABG O2 Saturation 94.3 L ABG Base Excess ABG Hemoglobin 7.1 L Oxyhemoglobin 92.3 L Sodium Potassium Chloride Carbon Dioxide BUN Creatinine Glucose POC Glucose Hemoglobin A1c Calcium Total Creatine Kinase CK-MB (CK-2) CK-MB (CK-2) Rel Index Troponin T Triglycerides LDL Cholesterol Direct 03/20/20 03/20/20 03/20/20 05:12 07:49 12:15 WBC RBC Hgb Hct Lymph % (Auto) [place] % (Auto) [place] # Seg Neutrophils % Seg Neutrophils # Heparin Anti-Xa Level ABG pO2 ABG HCO3 ABG O2 Saturation ABG Base Excess ABG Hemoglobin Oxyhemoglobin Sodium 134 L Potassium Chloride Carbon Dioxide 21 L BUN 23 H Creatinine Glucose 275 H POC Glucose 294 H 357 H Hemoglobin A1c Calcium Total Creatine Kinase CK-MB (CK-2) CK-MB (CK-2) Rel Index Troponin T 3.200 H* D Triglycerides LDL Cholesterol Direct 03/20/20 03/20/20 03/21/20 17:16 22:08 04:44 WBC RBC Hgb Hct Lymph % (Auto) [place] % (Auto) [place] # Seg Neutrophils % Seg Neutrophils # Heparin Anti-Xa Level ABG pO2 ABG HCO3 ABG O2 Saturation ABG Base Excess ABG Hemoglobin Oxyhemoglobin Sodium 136 L Potassium Chloride Carbon Dioxide 18 L BUN 26 H Creatinine Glucose 266 H POC Glucose 327 H 292 H Hemoglobin A1c Calcium 8.1 L Total Creatine Kinase CK-MB (CK-2) CK-MB (CK-2) Rel Index Troponin T Triglycerides LDL Cholesterol Direct 03/21/20 03/21/20 03/21/20 07:50 12:25 15:53 WBC RBC Hgb Hct Lymph % (Auto) [place] % (Auto) [place] # Seg Neutrophils % Seg Neutrophils # Heparin Anti-Xa Level ABG pO2 ABG HCO3 ABG O2 Saturation ABG Base Excess ABG Hemoglobin Oxyhemoglobin Sodium Potassium Chloride Carbon Dioxide BUN Creatinine Glucose POC Glucose 271 H 314 H 436 H Hemoglobin A1c Calcium Total Creatine Kinase CK-MB (CK-2) CK-MB (CK-2) Rel Index Troponin T Triglycerides LDL Cholesterol Direct 03/21/20 03/21/20 03/22/20 17:44 21:55 04:33 WBC RBC Hgb 10.0 L Hct 29.4 L Lymph % (Auto) [place] % (Auto) [place] # Seg Neutrophils % Seg Neutrophils # Heparin Anti-Xa Level ABG pO2 ABG HCO3 ABG O2 Saturation ABG Base Excess ABG Hemoglobin Oxyhemoglobin Sodium Potassium Chloride Carbon Dioxide BUN Creatinine Glucose POC Glucose 362 H 329 H Hemoglobin A1c Calcium Total Creatine Kinase CK-MB (CK-2) CK-MB (CK-2) Rel Index Troponin T Triglycerides LDL Cholesterol Direct 03/22/20 03/22/20 03/22/20 08:57 14:12 19:57 WBC RBC Hgb Hct Lymph % (Auto) [place] % (Auto) [place] # Seg Neutrophils % Seg Neutrophils # Heparin Anti-Xa Level ABG pO2 ABG HCO3 ABG O2 Saturation ABG Base Excess ABG Hemoglobin Oxyhemoglobin Sodium Potassium Chloride Carbon Dioxide BUN Creatinine Glucose POC Glucose 284 H 319 H 356 H Hemoglobin A1c Calcium Total Creatine Kinase CK-MB (CK-2) CK-MB (CK-2) Rel Index Troponin T Triglycerides LDL Cholesterol Direct 03/22/20 03/23/20 21:44 08:18 WBC RBC Hgb Hct Lymph % (Auto) [place] % (Auto) [place] # Seg Neutrophils % Seg Neutrophils # Heparin Anti-Xa Level ABG pO2 ABG HCO3 ABG O2 Saturation ABG Base Excess ABG Hemoglobin Oxyhemoglobin Sodium Potassium Chloride Carbon Dioxide BUN Creatinine Glucose POC Glucose 336 H 215 H Hemoglobin A1c Calcium Total Creatine Kinase CK-MB (CK-2) CK-MB (CK-2) Rel Index Troponin T Triglycerides LDL Cholesterol Direct Allied health notes reviewed: nursing
--- NOTE | 2020-03-23 18:25 | Progress Note ---
Assessment and Plan Critical care time 32 min The high probability of a clinically significant, sudden or life threatening deterioration of the [ circulatory, vascular and metabolic] system(s) required my full and direct attention, intervention and personal management. The aggregate critical care time was [35] minutes. This time is in addition to time spent ,performing reported procedures but includes the following: [x] Data Review and interpretation [x] Patient assessment and monitoring of vital signs [x] Documentation [x] Medication orders and management Disposition; follow vascular, cardiology recommendations Assessment and Plan Assessment and plan: --Acute left lower extremity ischemia Current Visit: Yes Status: Acute 03/19/2020 status post endovascular revascularization 03/19/2020 s/p left lower extremity 4 compartment fasciotomy Management per vascular --Non-ST elevation MT : Current Visit: Yes Status: Acute Patient has history of CABG patient denies any chest pain. Management per cardiology --Acute systolic CHF; EF 30-35%% Current Visit: Yes Status: Acute Beta-blockers, BIJAN inhibitor, diuretics if needed Cardiology following -- Hyperglycemia due to diabetes mellitus Current Visit: Yes Status: Acute Accu-Chek sliding scale coverage ADA diet Long-acting insulin as needed, check A1c --Ongoing tobacco use Current Visit: Yes Status: Acute Smoking cessation nicotine patch as needed --DVT prophylaxis Current Visit: Yes Status: Acute Patient currently on anticoagulation. -- Full code status Current Visit: Yes Status: Acute Patient is on heparin drip Subjective Date of service: 03/23/20 Principal diagnosis: Acute limb ischemia; STARR; COPD; Ac hypoxemic resp failure; DM II; NSTEMI Interval history: 54-year-old male with known history of CVA without any residual deficits, hypertension ,diabetes mellitus, coronary artery disease with CABG x2, pulmonary embolism and DVT presented to the emergency room today with a complaint of left foot pain and discoloration for about a week.His leg is cool from the knee down and cold and mottled from the lower calf down. He has an insensate foot from the midfoot down with no ability to move the toes. This has been present since he woke up. Last time he had function in his foot was last night. Left lower extremity ischemia, vascular evaluated, status post fasciotomy and revasc ularization. Objective - Constitutional Vitals: Vital Signs - 12hr 03/23/20 03/23/20 03/23/20 06:30 06:40 06:47 Temperature Pulse Rate 95 H 94 H Pulse Rate [ Anterior Bilateral Throughout] Pulse Rate [ From Monitor] Respiratory 23 24 21 Rate Respiratory Rate [Anterior Bilateral Throughout] Blood Pressure 99/75 99/75 O2 Sat by Pulse 98 99 Oximetry 03/23/20 03/23/20 03/23/20 06:50 07:00 07:10 Temperature Pulse Rate 104 H 95 H 101 H Pulse Rate [ Anterior Bilateral Throughout] Pulse Rate [ From Monitor] Respiratory 25 H 25 H 25 H Rate Respiratory Rate [Anterior Bilateral Throughout] Blood Pressure 99/75 103/72 103/72 O2 Sat by Pulse 98 98 100 Oximetry 03/23/20 03/23/20 03/23/20 07:20 07:30 07:38 Temperature Pulse Rate 102 H 94 H Pulse Rate [ Anterior Bilateral Throughout] Pulse Rate [ From Monitor] Respiratory 18 25 H 21 Rate Respiratory Rate [Anterior Bilateral Throughout] Blood Pressure 103/72 103/72 O2 Sat by Pulse 92 98 Oximetry 03/23/20 03/23/20 03/23/20 07:40 07:50 07:54 Temperature Pulse Rate 94 H 90 Pulse Rate [ 88 Anterior Bilateral Throughout] Pulse Rate [ From Monitor] Respiratory 19 13 Rate Respiratory 18 Rate [Anterior Bilateral Throughout] Blood Pressure 103/72 103/72 O2 Sat by Pulse 96 98 99 Oximetry 03/23/20 03/23/20 03/23/20 08:00 08:10 08:20 Temperature 98.8 F Pulse Rate 93 H 93 H 96 H Pulse Rate [ Anterior Bilateral Throughout] Pulse Rate [ 87 From Monitor] Respiratory 15 20 20 Rate Respiratory Rate [Anterior Bilateral Throughout] Blood Pressure 97/58 97/58 97/58 O2 Sat by Pulse 99 100 96 Oximetry 03/23/20 03/23/20 03/23/20 08:30 08:40 08:50 Temperature Pulse Rate 85 82 85 Pulse Rate [ Anterior Bilateral Throughout] Pulse Rate [ From Monitor] Respiratory 15 15 14 Rate Respiratory Rate [Anterior Bilateral Throughout] Blood Pressure 97/58 97/58 97/58 O2 Sat by Pulse 97 97 98 Oximetry 03/23/20 03/23/20 03/23/20 09:00 09:09 09:10 Temperature Pulse Rate 86 97 H 92 H Pulse Rate [ Anterior Bilateral Throughout] Pulse Rate [ From Monitor] Respiratory 11 L 21 Rate Respiratory Rate [Anterior Bilateral Throughout] Blood Pressure 89/63 89/63 89/63 O2 Sat by Pulse 98 98 Oximetry 03/23/20 03/23/20 03/23/20 09:20 09:30 09:40 Temperature Pulse Rate 99 H 100 H 98 H Pulse Rate [ Anterior Bilateral Throughout] Pulse Rate [ From Monitor] Respiratory 17 23 22 Rate Respiratory Rate [Anterior Bilateral Throughout] Blood Pressure 89/63 89/63 89/63 O2 Sat by Pulse 92 95 99 Oximetry 03/23/20 03/23/20 03/23/20 09:50 10:00 10:10 Temperature Pulse Rate 94 H 93 H 93 H Pulse Rate [ Anterior Bilateral Throughout] Pulse Rate [ From Monitor] Respiratory 17 16 21 Rate Respiratory Rate [Anterior Bilateral Throughout] Blood Pressure 89/63 98/69 98/69 O2 Sat by Pulse 100 98 99 Oximetry 03/23/20 03/23/20 03/23/20 10:20 10:30 10:40 Temperature Pulse Rate 97 H 97 H 98 H Pulse Rate [ Anterior Bilateral Throughout] Pulse Rate [ From Monitor] Respiratory 18 24 19 Rate Respiratory Rate [Anterior Bilateral Throughout] Blood Pressure 98/69 98/69 98/69 O2 Sat by Pulse 99 97 100 Oximetry 03/23/20 03/23/20 03/23/20 10:50 11:00 11:10 Temperature Pulse Rate 101 H 98 H 99 H Pulse Rate [ Anterior Bilateral Throughout] Pulse Rate [ From Monitor] Respiratory 17 17 24 Rate Respiratory Rate [Anterior Bilateral Throughout] Blood Pressure 98/69 87/72 87/72 O2 Sat by Pulse 100 100 97 Oximetry 03/23/20 03/23/20 03/23/20 11:20 11:30 11:40 Temperature Pulse Rate 91 H 89 89 Pulse Rate [ Anterior Bilateral Throughout] Pulse Rate [ From Monitor] Respiratory 12 13 10 L Rate Respiratory Rate [Anterior Bilateral Throughout] Blood Pressure 87/72 87/72 87/72 O2 Sat by Pulse 99 100 100 Oximetry 03/23/20 03/23/20 03/23/20 11:50 12:00 12:11 Temperature Pulse Rate 89 88 88 Pulse Rate [ Anterior Bilateral Throughout] Pulse Rate [ 88 From Monitor] Respiratory 14 15 14 Rate Respiratory Rate [Anterior Bilateral Throughout] Blood Pressure 87/72 87/72 O2 Sat by Pulse 100 100 100 Oximetry 03/23/20 03/23/20 03/23/20 12:21 12:31 12:41 Temperature Pulse Rate 98 H 104 H 95 H Pulse Rate [ Anterior Bilateral Throughout] Pulse Rate [ From Monitor] Respiratory 22 22 17 Rate Respiratory Rate [Anterior Bilateral Throughout] Blood Pressure 87/72 87/72 87/72 O2 Sat by Pulse 100 98 94 Oximetry 03/23/20 03/23/20 03/23/20 12:51 13:01 13:11 Temperature Pulse Rate 101 H 108 H 101 H Pulse Rate [ Anterior Bilateral Throughout] Pulse Rate [ From Monitor] Respiratory 25 H 19 21 Rate Respiratory Rate [Anterior Bilateral Throughout] Blood Pressure 87/72 87/72 95/71 O2 Sat by Pulse 94 98 97 Oximetry 03/23/20 03/23/20 03/23/20 13:21 13:31 13:41 Temperature Pulse Rate 100 H 98 H 96 H Pulse Rate [ Anterior Bilateral Throughout] Pulse Rate [ From Monitor] Respiratory 22 18 16 Rate Respiratory Rate [Anterior Bilateral Throughout] Blood Pressure 95/71 95/71 95/71 O2 Sat by Pulse 97 99 98 Oximetry 03/23/20 03/23/20 03/23/20 13:51 14:01 14:11 Temperature Pulse Rate 94 H 99 H 91 H Pulse Rate [ Anterior Bilateral Throughout] Pulse Rate [ From Monitor] Respiratory 18 21 14 Rate Respiratory Rate [Anterior Bilateral Throughout] Blood Pressure 95/71 107/75 107/75 O2 Sat by Pulse 99 99 99 Oximetry General appearance: Present: no acute distress, well-nourished - EENT Eyes: PERRL, EOM intact ENT: hearing intact, clear oral mucosa Ears: bilateral: normal - Neck Neck: supple, normal ROM - Respiratory Respiratory effort: normal Respiratory: bilateral: CTA - Breasts Breasts: normal - Cardiovascular Rhythm: regular Heart Sounds: Present: S1 & S2. Absent: gallop, rub Extremities: pulses intact, No edema, normal color, Full ROM Extremity abnormal: other (Left lower extremity ischemic changes) - Gastrointestinal General gastrointestinal: Present: soft, non-tender, non-distended, normal bowel sounds - Genitourinary Male genitourinary: normal - Integumentary Integumentary: clear, warm, dry - Musculoskeletal Musculoskeletal: 1, strength equal bilaterally - Neurologic Neurologic: moves all extremities - Psychiatric Psychiatric: memory intact, appropriate mood/affect, intact judgment & insight - Allied health notes Allied health notes reviewed: nursing, case management - Labs CBC & Chem 7: 03/24/20 02:35 03/25/20 08:13 Labs: Abnormal lab results 03/22/20 03/22/20 03/23/20 Range/Units 19:57 21:44 08:18 POC Glucose 356 H 336 H 215 H (70-105) 03/23/20 03/23/20 Range/Units 12:46 15:56 POC Glucose 262 H 246 H (70-105) HEART Score - HEART Score Troponin: Troponin T 3.200 ng/mL (0.00-0.029) H* D 03/20/20 05:12
[2020-03-23] MEDS: INSULIN GLARGINE 100 UNITS/ML SUB-Q SCH (22:25)
[2020-03-24 03:11] LABS: Hematocrit 25.8 % (35.5-45.6)
[2020-03-24] MEDS: HEPARIN/ 0.45% NACL DRIP 25,000 UNIT/500 ML BAG IV SCH (07:03)
[2020-03-24] MEDS: [UNRECOGNIZED DRUG - REMARK] SUB-Q SCH ×4 (07:30→21:55)
[2020-03-24] MEDS: ARFORMOTEROL 15 MCG/2 ML NEBU IH SCH ×2 (07:36→19:59)
[2020-03-24] MEDS: BUDESONIDE 0.5 MG/2 ML NEBU IH SCH ×2 (07:36→19:59)
[2020-03-24] MEDS: HYDROcodone/ACETAMINOPHEN 5-325 MG TAB PO PRN ×4 (08:48→21:54)
[2020-03-24] MEDS: PANTOPRAZOLE 40 MG TAB PO SCH ×2 (10:15→21:54)
[2020-03-24] MEDS: PREGABALIN 75 MG CAP PO SCH ×2 (10:16→21:53)
[2020-03-24] MEDS: ASPIRIN EC 81 MG TAB PO SCH (10:16)
[2020-03-24] MEDS: METOPROLOL TARTRATE 50 MG TAB PO SCH ×2 (10:16→21:53)
[2020-03-24] MEDS: CLOPIDOGREL 75 MG TAB PO SCH (10:16)
[2020-03-24] MEDS: LISINOPRIL 5 MG TAB PO SCH (10:17)
--- NOTE | 2020-03-24 12:37 | Event Note ---
Date: 03/24/20 NPO after MN tonight except sips of water with meds for possible BKA tomorrow. Hold heparin drip once OR calls for patient. Procedure may occur wednesday or wednesday.
--- NOTE | 2020-03-24 12:55 | Progress Note ---
Assessment and Plan Acute limb ischemia S/P revascularization surgery. Obstructive sleep apnea. History of chronic obstructive pulmonary disease. Acute hypoxemic respiratory failure. Diabetes. History of coronary artery disease. Non-ST elevation myocardial infarction. Acute coronary syndrome. History of cerebrovascular accident. - trend H&H - no new issues today, continue care as below; - continue antiplatelet therapy with heparin IV and Plavix - further surgical intervention per Vascular team - accuchecks with glycemic control per SSI (While critically ill target blood glucose of 140-180 mg/dL; avoid hypoglycemia) - wean supplemental oxygen for target O2 sat's > 90% acutely - prn bronchodilators with pulmonary hygiene per RT - avoid benzodiazepine's, reduce the possibility of delirium - AB's per surgery rec's (No S&S of overwhelming sepsis) - prn analgesia per pain score - Maintenance of sleep-wake cycle, avoid delirium - aspiration precautions - G.I. & VTE prophylaxis - PT/OT/ROM exercises - mobility protocols for pressure ulcer prophylaxis - Monitor hemodynamics closely - continue other care per attending / other consultants - discharge planning ongoing concurrently - transferred to telemetry .... Re-evaluate in am & prn Subjective Date of service: 03/24/20 Principal diagnosis: Acute limb ischemia; STARR; COPD; Ac hypoxemic resp failure; DM II; NSTEMI Interval history: Patient is seen today for: Acute limb ischemia S/P revascularization surgery; STARR; COPD; Acute hypoxemic respiratory failure; DM II; NSTEMI; H/O CVA Seen and examined at bedside; 24hour events reviewed; nursing and respiratory care staff consulted; no adverse overnight events reported to me; resting peac efully in bed; no gross bleeding but anemia evaluation ongoing; tentative BKA in am Objective Vital Signs - 12hr 03/24/20 03/24/20 03/24/20 01:34 04:37 07:36 Temperature 98.0 F Pulse Rate 99 H 95 H Pulse Rate [ 93 H Anterior Bilateral Throughout] Pulse Rate [ From Monitor] Pulse Rate [ Left Posterior Tibial] Respiratory 20 Rate Respiratory 18 Rate [Anterior Bilateral Throughout] Blood Pressure 104/73 Blood Pressure [Left] O2 Sat by Pulse 99 98 Oximetry 03/24/20 03/24/20 03/24/20 08:00 09:34 10:00 Temperature 98.1 F Pulse Rate 100 H 96 H Pulse Rate [ Anterior Bilateral Throughout] Pulse Rate [ 100 H From Monitor] Pulse Rate [ 100 H Left Posterior Tibial] Respiratory 19 17 Rate Respiratory Rate [Anterior Bilateral Throughout] Blood Pressure Blood Pressure 103/76 [Left] O2 Sat by Pulse Oximetry 03/24/20 03/24/20 10:16 10:17 Temperature Pulse Rate 100 H 100 H Pulse Rate [ Anterior Bilateral Throughout] Pulse Rate [ From Monitor] Pulse Rate [ Left Posterior Tibial] Respiratory Rate Respiratory Rate [Anterior Bilateral Throughout] Blood Pressure 102/66 102/66 Blood Pressure [Left] O2 Sat by Pulse Oximetry Constitutional: appears uncomfortable, other (middle aged obese male with mildly increased respiratory effort at rest) Eyes: non-icteric ENT: oropharynx moist Neck: supple, no lymphadenopathy, no JVD Effort: mildly labored Ascultation: Bilateral: clear, diminished breath sounds Percussion: Bilateral: not dull Cardiovascular: regular rate and rhythm Gastrointestinal: normoactive bowel sounds, soft, non-tender, non-distended (protuberant) Integumentary: rash, other (cool left foot anterior plantar surface) Extremities: cool, edema, other (dressing to left leg post fasciotomy) Neurologic: normal mental status, non-focal exam, pupils equal and round, motor strength normal and (limited by pasin in left leg) Psychiatric: mood appropriate, affect normal CBC and BMP: 03/28/20 07:39 03/28/20 07:39 ABG, PT/INR, D-dimer: ABG ABG pH 7.405 pH Units (7.350-7.450) 03/20/20 04:35 ABG pCO2 40.3 mm Hg 03/20/20 04:35 ABG pO2 68.3 mm Hg (80.0-90.0) L 03/20/20 04:35 ABG O2 Saturation 94.3 % (95.0-99.0) L 03/20/20 04:35 PT/INR, D-dimer PT 12.7 Sec. (12.2-14.9) 03/19/20 08:08 INR 0.94 (0.87-1.13) 03/19/20 08:08 Abnormal lab findings: Abnormal Labs 03/18/20 03/18/20 03/18/20 18:28 18:28 20:56 WBC 12.3 H RBC Hgb Hct Lymph % (Auto) 11.0 L Rankin % (Auto) 9.8 H Rankin # 1.2 H Seg Neutrophils % 78.4 H Seg Neutrophils # 9.6 H Heparin Anti-Xa Level ABG pO2 ABG HCO3 ABG O2 Saturation ABG Base Excess ABG Hemoglobin Oxyhemoglobin Sodium 132 L Potassium Chloride 91.9 L Carbon Dioxide 20 L BUN Creatinine 1.4 H Glucose 406 H POC Glucose Hemoglobin A1c Calcium Total Creatine Kinase 2727 H 2492 H CK-MB (CK-2) 135.9 H 107.2 H CK-MB (CK-2) Rel Index 4.3 H Troponin T 5.110 H* 3.960 H* D Triglycerides 188 H LDL Cholesterol Direct 141 H 03/18/20 03/19/20 03/19/20 22:21 01:57 08:08 WBC RBC Hgb Hct Lymph % (Auto) Rankin % (Auto) Rankin # Seg Neutrophils % Seg Neutrophils # Heparin Anti-Xa Level ABG pO2 ABG HCO3 ABG O2 Saturation ABG Base Excess ABG Hemoglobin Oxyhemoglobin Sodium Potassium Chloride Carbon Dioxide BUN Creatinine Glucose POC Glucose 317 H Hemoglobin A1c 11.0 H Calcium Total Creatine Kinase 7255 H CK-MB (CK-2) 79.3 H CK-MB (CK-2) Rel Index Troponin T 5.540 H* D Triglycerides LDL Cholesterol Direct 03/19/20 03/19/20 03/19/20 08:08 08:08 08:08 WBC 13.3 H RBC Hgb Hct Lymph % (Auto) 10.7 L Rankin % (Auto) 8.5 H Rankin # 1.1 H Seg Neutrophils % 80.0 H Seg Neutrophils # 10.6 H Heparin Anti-Xa Level 0.10 L ABG pO2 ABG HCO3 ABG O2 Saturation ABG Base Excess ABG Hemoglobin Oxyhemoglobin Sodium 133 L Potassium 5.1 H Chloride Carbon Dioxide 17 L BUN 23 H Creatinine Glucose 313 H POC Glucose Hemoglobin A1c Calcium Total Creatine Kinase CK-MB (CK-2) CK-MB (CK-2) Rel Index Troponin T Triglycerides LDL Cholesterol Direct 03/19/20 03/19/20 03/19/20 15:40 18:23 21:32 WBC RBC Hgb Hct Lymph % (Auto) Rankin % (Auto) Rankin # Seg Neutrophils % Seg Neutrophils # Heparin Anti-Xa Level < 0.10 L ABG pO2 ABG HCO3 18.3 L ABG O2 Saturation ABG Base Excess -5.4 L ABG Hemoglobin 12.2 L Oxyhemoglobin 94.6 L Sodium Potassium Chloride Carbon Dioxide BUN Creatinine Glucose POC Glucose 348 H Hemoglobin A1c Calcium Total Creatine Kinase CK-MB (CK-2) CK-MB (CK-2) Rel Index Troponin T Triglycerides LDL Cholesterol Direct 03/20/20 03/20/20 03/20/20 04:35 05:12 05:12 WBC 11.1 H RBC 3.63 L Hgb 11.0 L Hct 32.7 L D Lymph % (Auto) Rankin % (Auto) 8.1 H Rankin # 0.9 H Seg Neutrophils % 75.8 H Seg Neutrophils # 8.4 H Heparin Anti-Xa Level 0.28 L ABG pO2 68.3 L ABG HCO3 ABG O2 Saturation 94.3 L ABG Base Excess ABG Hemoglobin 7.1 L Oxyhemoglobin 92.3 L Sodium Potassium Chloride Carbon Dioxide BUN Creatinine Glucose POC Glucose Hemoglobin A1c Calcium Total Creatine Kinase CK-MB (CK-2) CK-MB (CK-2) Rel Index Troponin T Triglycerides LDL Cholesterol Direct 03/20/20 03/20/20 03/20/20 05:12 07:49 12:15 WBC RBC Hgb Hct Lymph % (Auto) Rankin % (Auto) Rankin # Seg Neutrophils % Seg Neutrophils # Heparin Anti-Xa Level ABG pO2 ABG HCO3 ABG O2 Saturation ABG Base Excess ABG Hemoglobin Oxyhemoglobin Sodium 134 L Potassium Chloride Carbon Dioxide 21 L BUN 23 H Creatinine Glucose 275 H POC Glucose 294 H 357 H Hemoglobin A1c Calcium Total Creatine Kinase CK-MB (CK-2) CK-MB (CK-2) Rel Index Troponin T 3.200 H* D Triglycerides LDL Cholesterol Direct 03/20/20 03/20/20 03/21/20 17:16 22:08 04:44 WBC RBC Hgb Hct Lymph % (Auto) Rankin % (Auto) Rankin # Seg Neutrophils % Seg Neutrophils # Heparin Anti-Xa Level ABG pO2 ABG HCO3 ABG O2 Saturation ABG Base Excess ABG Hemoglobin Oxyhemoglobin Sodium 136 L Potassium Chloride Carbon Dioxide 18 L BUN 26 H Creatinine Glucose 266 H POC Glucose 327 H 292 H Hemoglobin A1c Calcium 8.1 L Total Creatine Kinase CK-MB (CK-2) CK-MB (CK-2) Rel Index Troponin T Triglycerides LDL Cholesterol Direct 03/21/20 03/21/20 03/21/20 07:50 12:25 15:53 WBC RBC Hgb Hct Lymph % (Auto) Rankin % (Auto) Rankin # Seg Neutrophils % Seg Neutrophils # Heparin Anti-Xa Level ABG pO2 ABG HCO3 ABG O2 Saturation ABG Base Excess ABG Hemoglobin Oxyhemoglobin Sodium Potassium Chloride Carbon Dioxide BUN Creatinine Glucose POC Glucose 271 H 314 H 436 H Hemoglobin A1c Calcium Total Creatine Kinase CK-MB (CK-2) CK-MB (CK-2) Rel Index Troponin T Triglycerides LDL Cholesterol Direct 03/21/20 03/21/20 03/22/20 17:44 21:55 04:33 WBC RBC Hgb 10.0 L Hct 29.4 L Lymph % (Auto) Rankin % (Auto) Rankin # Seg Neutrophils % Seg Neutrophils # Heparin Anti-Xa Level ABG pO2 ABG HCO3 ABG O2 Saturation ABG Base Excess ABG Hemoglobin Oxyhemoglobin Sodium Potassium Chloride Carbon Dioxide BUN Creatinine Glucose POC Glucose 362 H 329 H Hemoglobin A1c Calcium Total Creatine Kinase CK-MB (CK-2) CK-MB (CK-2) Rel Index Troponin T Triglycerides LDL Cholesterol Direct 03/22/20 03/22/20 03/22/20 08:57 14:12 19:57 WBC RBC Hgb Hct Lymph % (Auto) Rankin % (Auto) Rankin # Seg Neutrophils % Seg Neutrophils # Heparin Anti-Xa Level ABG pO2 ABG HCO3 ABG O2 Saturation ABG Base Excess ABG Hemoglobin Oxyhemoglobin Sodium Potassium Chloride Carbon Dioxide BUN Creatinine Glucose POC Glucose 284 H 319 H 356 H Hemoglobin A1c Calcium Total Creatine Kinase CK-MB (CK-2) CK-MB (CK-2) Rel Index Troponin T Triglycerides LDL Cholesterol Direct 03/22/20 03/23/20 03/23/20 21:44 08:18 12:46 WBC RBC Hgb Hct Lymph % (Auto) Rankin % (Auto) Rankin # Seg Neutrophils % Seg Neutrophils # Heparin Anti-Xa Level ABG pO2 ABG HCO3 ABG O2 Saturation ABG Base Excess ABG Hemoglobin Oxyhemoglobin Sodium Potassium Chloride Carbon Dioxide BUN Creatinine Glucose POC Glucose 336 H 215 H 262 H Hemoglobin A1c Calcium Total Creatine Kinase CK-MB (CK-2) CK-MB (CK-2) Rel Index Troponin T Triglycerides LDL Cholesterol Direct 03/23/20 03/23/20 03/24/20 15:56 22:05 02:35 WBC RBC Hgb 9.0 L Hct 25.8 L Lymph % (Auto) Rankin % (Auto) Rankin # Seg Neutrophils % Seg Neutrophils # Heparin Anti-Xa Level ABG pO2 ABG HCO3 ABG O2 Saturation ABG Base Excess ABG Hemoglobin Oxyhemoglobin Sodium Potassium Chloride Carbon Dioxide BUN Creatinine Glucose POC Glucose 246 H 322 H Hemoglobin A1c Calcium Total Creatine Kinase CK-MB (CK-2) CK-MB (CK-2) Rel Index Troponin T Triglycerides LDL Cholesterol Direct 03/24/20 03/24/20 07:38 11:45 WBC RBC Hgb Hct Lymph % (Auto) Rankin % (Auto) Rankin # Seg Neutrophils % Seg Neutrophils # Heparin Anti-Xa Level ABG pO2 ABG HCO3 ABG O2 Saturation ABG Base Excess ABG Hemoglobin Oxyhemoglobin Sodium Potassium Chloride Carbon Dioxide BUN Creatinine Glucose POC Glucose 289 H 257 H Hemoglobin A1c Calcium Total Creatine Kinase CK-MB (CK-2) CK-MB (CK-2) Rel Index Troponin T Triglycerides LDL Cholesterol Direct Allied health notes reviewed: nursing
[2020-03-24] MEDS: SODIUM CHLORIDE 0.9% 1000 ML 1,000 ML IV SCH (14:56)
[2020-03-24] MEDS: HYDROmorphone/NS 6 MG/30 ML PCA INJ IV SCH (15:29)
[2020-03-24] MEDS: INSULIN GLARGINE 100 UNITS/ML SUB-Q SCH (21:55)
[2020-03-25] MEDS: HYDROmorphone/NS 6 MG/30 ML PCA INJ IV SCH (06:08)
[2020-03-25] MEDS: ARFORMOTEROL 15 MCG/2 ML NEBU IH SCH ×2 (07:30→22:14)
[2020-03-25] MEDS: BUDESONIDE 0.5 MG/2 ML NEBU IH SCH ×2 (07:30→22:14)
[2020-03-25 08:46] LABS: Calcium 8.1 mg/dL (8.4-10.2)
--- NOTE | 2020-03-25 09:20 | Progress Note ---
Assessment and Plan Critical care time 35 min The high probability of a clinically significant, sudden or life threatening deterioration of the [ circulatory, vascular and metabolic] system(s) required my full and direct attention, intervention and personal management. The aggregate critical care time was [35] minutes. This time is in addition to time spent ,performing reported procedures but includes the following: [x] Data Review and interpretation [x] Patient assessment and monitoring of vital signs [x] Documentation [x] Medication orders and management Disposition; follow vascular, cardiology recommendations Assessment and Plan Assessment and plan: --Acute left lower extremity ischemia Current Visit: Yes Status: Acute 03/19/2020 status post endovascular revascularization 03/19/2020 s/p left lower extremity 4 compartment fasciotomy Management per vascular --Non-ST elevation [place] : Current Visit: Yes Status: Acute Patient has history of CABG patient denies any chest pain. Management per cardiology --Acute systolic CHF; EF 30-35%% Current Visit: Yes Status: Acute Beta-blockers, BIJAN inhibitor, diuretics if needed Cardiology following -- Hyperglycemia due to diabetes mellitus Current Visit: Yes Status: Acute Accu-Chek sliding scale coverage ADA diet Long-acting insulin as needed, check A1c --Ongoing tobacco use Current Visit: Yes Status: Acute Smoking cessation nicotine patch as needed --DVT prophylaxis Current Visit: Yes Status: Acute Patient currently on anticoagulation. -- Full code status Current Visit: Yes Status: Acute Patient is on heparin drip Subjective Date of service: 03/21/20 Principal diagnosis: Acute limb ischemia; STARR; COPD; Ac hypoxemic resp failure; DM II; NSTEMI Interval history: 54-year-old male with known history of CVA without any residual deficits, hypertension ,diabetes mellitus, coronary artery disease with CABG x2, pulmonary embolism and DVT presented to the emergency room today with a complaint of left foot pain and discoloration for about a week.His leg is cool from the knee down and cold and mottled from the lower calf down. He has an insensate foot from the midfoot down with no ability to move the toes. This has been present since he woke up. Last time he had function in his foot was last night. Left lower extremity ischemia, vascular evaluated, status post fasciotomy and revasc ularization. Objective - Constitutional Vitals: Vital Signs - 12hr 03/24/20 03/24/20 03/24/20 21:53 22:00 23:29 Temperature Pulse Rate 100 H Pulse Rate [ 100 H From Monitor] Pulse Rate [ 100 H Left Posterior Tibial] Respiratory 18 20 Rate Respiratory 18 Rate [left foot ] Blood Pressure 112/79 Blood Pressure [Left] O2 Sat by Pulse Oximetry 03/24/20 03/25/20 03/25/20 23:53 01:00 01:29 Temperature 98.1 F Pulse Rate 101 H 90 Pulse Rate [ From Monitor] Pulse Rate [ Left Posterior Tibial] Respiratory 18 20 Rate Respiratory Rate [left foot ] Blood Pressure 119/85 Blood Pressure [Left] O2 Sat by Pulse 99 Oximetry 03/25/20 03/25/20 03/25/20 03:29 05:21 05:29 Temperature 97.6 F Pulse Rate 86 Pulse Rate [ From Monitor] Pulse Rate [ Left Posterior Tibial] Respiratory 20 16 2 L Rate Respiratory Rate [left foot ] Blood Pressure Blood Pressure 99/69 [Left] O2 Sat by Pulse 98 Oximetry 03/25/20 03/25/20 07:33 07:48 Temperature 96.8 F L Pulse Rate 93 H Pulse Rate [ From Monitor] Pulse Rate [ Left Posterior Tibial] Respiratory 20 18 Rate Respiratory Rate [left foot ] Blood Pressure 106/80 Blood Pressure [Left] O2 Sat by Pulse 97 Oximetry General appearance: Present: no acute distress, well-nourished - EENT Eyes: PERRL, EOM intact ENT: hearing intact, clear oral mucosa Ears: bilateral: normal - Neck Neck: supple, normal ROM - Respiratory Respiratory effort: normal Respiratory: bilateral: CTA - Breasts Breasts: normal - Cardiovascular Heart rate: 78 Rhythm: regular Heart Sounds: Present: S1 & S2. Absent: gallop, rub Extremities: pulses intact, No edema, normal color, Full ROM, abnormal (Acute ischemia left lower extremity below knee) Extremity abnormal: other (Acute ischemia) - Gastrointestinal General gastrointestinal: Present: soft, non-tender, non-distended, normal bowel sounds - Genitourinary Male genitourinary: normal - Integumentary Integumentary: clear, warm, dry - Musculoskeletal Musculoskeletal: 1, strength equal bilaterally - Neurologic Neurologic: moves all extremities - Psychiatric Psychiatric: memory intact, appropriate mood/affect, intact judgment & insight - Labs CBC & Chem 7: 03/24/20 02:35 03/25/20 08:13 Labs: Abnormal lab results 03/24/20 03/24/20 03/24/20 Range/Units 11:45 16:02 21:24 Heparin Anti-Xa Level (0.3-0.7) U.I./ml Sodium (137-145) mmol/L Potassium (3.6-5.0) mmol/L Carbon Dioxide (22-30) mmol/L BUN (9-20) mg/dL Creatinine (0.8-1.3) mg/dL Glucose (75-100) mg/dL POC Glucose 257 H 150 H 228 H (70-105) Calcium (8.4-10.2) mg/dL 03/25/20 03/25/20 03/25/20 Range/Units 04:06 07:39 08:13 Heparin Anti-Xa Level 0.10 L (0.3-0.7) U.I./ml Sodium 131 L (137-145) mmol/L Potassium 5.3 H (3.6-5.0) mmol/L Carbon Dioxide 20 L (22-30) mmol/L BUN 39 H (9-20) mg/dL Creatinine 1.4 H (0.8-1.3) mg/dL Glucose 313 H (75-100) mg/dL POC Glucose 332 H (70-105) Calcium 8.1 L (8.4-10.2) mg/dL HEART Score - HEART Score Troponin: Troponin T 3.200 ng/mL (0.00-0.029) H* D 03/20/20 05:12
--- NOTE | 2020-03-25 09:27 | Progress Note ---
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 Management per cardiology --Acute systolic CHF; EF 30-35%% Current Visit: Yes Status: Acute Beta-blockers, BIJAN inhibitor, diuretics if needed Cardiology following -- Hyperglycemia due to diabetes mellitus Current Visit: Yes Status: Acute Accu-Chek sliding scale coverage ADA diet Long-acting insulin as needed, check A1c --Ongoing tobacco use Current Visit: Yes Status: Acute Smoking cessation nicotine patch as needed --DVT prophylaxis Current Visit: Yes Status: Acute Patient currently on anticoagulation. -- Full code status Current Visit: Yes Status: Acute Patient is on heparin drip Subjective Date of service: 03/24/20 Principal diagnosis: Acute limb ischemia; STARR; COPD; Ac hypoxemic resp failure; DM II; NSTEMI Interval history: 54-year-old male with known history of CVA without any residual deficits, hypertension ,diabetes mellitus, coronary artery disease with CABG x2, pulmonary embolism and DVT presented to the emergency room today with a complaint of left foot pain and discoloration for about a week.His leg is cool from the knee down and cold and mottled from the lower calf down. He has an insensate foot from the midfoot down with no ability to move the toes. This has been present since he woke up. Last time he had function in his foot was last night. Left lower extremity ischemia, vascular evaluated, status post fasciotomy and revascularization. For left BKA on 03/25/2020 Objective - Constitutional Vitals: Vital Signs - 12hr 03/24/20 03/24/20 03/24/20 21:53 22:00 23:29 Temperature Pulse Rate 100 H Pulse Rate [ 100 H From Monitor] Pulse Rate [ 100 H Left Posterior Tibial] Respiratory 18 20 Rate Respiratory 18 Rate [left foot ] Blood Pressure 112/79 Blood Pressure [Left] O2 Sat by Pulse Oximetry 03/24/20 03/25/20 03/25/20 23:53 01:00 01:29 Temperature 98.1 F Pulse Rate 101 H 90 Pulse Rate [ From Monitor] Pulse Rate [ Left Posterior Tibial] Respiratory 18 20 Rate Respiratory Rate [left foot ] Blood Pressure 119/85 Blood Pressure [Left] O2 Sat by Pulse 99 Oximetry 03/25/20 03/25/20 03/25/20 03:29 05:21 05:29 Temperature 97.6 F Pulse Rate 86 Pulse Rate [ From Monitor] Pulse Rate [ Left Posterior Tibial] Respiratory 20 16 2 L Rate Respiratory Rate [left foot ] Blood Pressure Blood Pressure 99/69 [Left] O2 Sat by Pulse 98 Oximetry 03/25/20 03/25/20 07:33 07:48 Temperature 96.8 F L Pulse Rate 93 H Pulse Rate [ From Monitor] Pulse Rate [ Left Posterior Tibial] Respiratory 20 18 Rate Respiratory Rate [left foot ] Blood Pressure 106/80 Blood Pressure [Left] O2 Sat by Pulse 97 Oximetry General appearance: Present: no acute distress, well-nourished - EENT Eyes: PERRL, EOM intact ENT: hearing intact, clear oral mucosa Ears: bilateral: normal - Neck Neck: supple, normal ROM - Respiratory Respiratory effort: normal Respiratory: bilateral: CTA - Breasts Breasts: normal - Cardiovascular Rhythm: regular Heart Sounds: Present: S1 & S2. Absent: gallop, rub Extremities: pulses intact, No edema, normal color, Full ROM Extremity abnormal: other (Left lower extremity extremity ischemia) - Gastrointestinal General gastrointestinal: Present: soft, non-tender, non-distended, normal bowel sounds - Genitourinary Male genitourinary: normal - Integumentary Integumentary: clear, warm, dry - Musculoskeletal Musculoskeletal: 1, strength equal bilaterally - Neurologic Neurologic: moves all extremities - Psychiatric Psychiatric: memory intact, appropriate mood/affect, intact judgment & insight - Labs CBC & Chem 7: 03/24/20 02:35 03/25/20 08:13 Labs: Abnormal lab results 03/24/20 03/24/20 03/24/20 Range/Units 11:45 16:02 21:24 Heparin Anti-Xa Level (0.3-0.7) U.I./ml Sodium (137-145) mmol/L Potassium (3.6-5.0) mmol/L Carbon Dioxide (22-30) mmol/L BUN (9-20) mg/dL Creatinine (0.8-1.3) mg/dL Glucose (75-100) mg/dL POC Glucose 257 H 150 H 228 H (70-105) Calcium (8.4-10.2) mg/dL 03/25/20 03/25/20 03/25/20 Range/Units 04:06 07:39 08:13 Heparin Anti-Xa Level 0.10 L (0.3-0.7) U.I./ml Sodium 131 L (137-145) mmol/L Potassium 5.3 H (3.6-5.0) mmol/L Carbon Dioxide 20 L (22-30) mmol/L BUN 39 H (9-20) mg/dL Creatinine 1.4 H (0.8-1.3) mg/dL Glucose 313 H (75-100) mg/dL POC Glucose 332 H (70-105) Calcium 8.1 L (8.4-10.2) mg/dL HEART Score - HEART Score Troponin: Troponin T 3.200 ng/mL (0.00-0.029) H* D 03/20/20 05:12
[2020-03-25] MEDS: [UNRECOGNIZED DRUG - REMARK] SUB-Q SCH ×4 (10:04→21:17)
[2020-03-25] MEDS: LISINOPRIL 5 MG TAB PO SCH (10:05)
[2020-03-25] MEDS: METOPROLOL TARTRATE 50 MG TAB PO SCH ×2 (10:05→22:10)
[2020-03-25] MEDS: CLOPIDOGREL 75 MG TAB PO SCH (10:06)
[2020-03-25] MEDS: PREGABALIN 75 MG CAP PO SCH ×2 (10:07→21:16)
[2020-03-25] MEDS: PANTOPRAZOLE 40 MG TAB PO SCH ×2 (10:07→21:16)
[2020-03-25 10:43] LABS: Hematocrit 26.1 % (35.5-45.6); Hemoglobin 8.5 gm/dl (11.8-15.2); Mean Corpuscular HGB Conc 32 % (32-34); Mean Corpuscular Volume 93 fl (84-94); Platelet Count 347 K/mm3 (140-440); Red Blood Count 2.82 M/mm3 (3.65-5.03); Red Cell Distribution Width 13.8 % (13.2-15.2)
[2020-03-25] MEDS ORDERED: propofoL 200 MG/20 ML VIAL IV ONE (13:17)
[2020-03-25] MEDS ORDERED: HYDROmorphone 1 MG/1 ML INJ ONE (13:17)
[2020-03-25] MEDS ORDERED: ROCURONIUM 50 MG/5 ML INJ IV ONE (13:17)
[2020-03-25] MEDS ORDERED: SUCCINYLCHOLINE CHLORIDE 200 MG/10 ML INJ MDV ONE (13:17)
[2020-03-25] MEDS ORDERED: LIDOCAINE MPF (2%) 20 MG/1 ML VIAL 5 ML ONE (13:18)
--- NOTE | 2020-03-25 13:36 | Progress Note ---
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 Patient Obese. Patient presently sleeping with CPAP FIO2 28% and O2 saturation running 97%. Chest xray obtained 03/19/20 reported no acute abnormalities. ABG FIO2 35%. ABG pH 7.405 pH Units (7.350-7.450) 03/20/20 04:35 ABG pCO2 40.3 mm Hg 03/20/20 04:35 ABG pO2 68.3 mm Hg (80.0-90.0) L 03/20/20 04:35 ABG O2 Saturation 94.3 % (95.0-99.0) L 03/20/20 04:35 Patient afebrile and has mild leukocytosis. Patient given dose of cefazolin. Patient is on S?C Lovenox. Patient is on Protonix for GI prophylaxis. Recommend incentive spirometry. 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 (2) Cardiomyopathy Current Visit: Yes Status: Acute Plan to address problem: Management as per primary care and cardiology. (3) Elevated troponin Current Visit: Yes Status: Acute Plan to address problem: Management as per primary care and cardiology. (4) Hx of two vessel coronary artery bypass graft Current Visit: Yes Status: Acute Plan to address problem: Management as per cardiology. (5) NSTEMI (non-ST elevated myocardial infarction) Current Visit: Yes Status: Acute Plan to address problem: Management as per cardiology. (6) HTN (hypertension) Current Visit: Yes Status: Chronic Plan to address problem: Management as per primary care. (7) History of CVA (cerebrovascular accident) Current Visit: Yes Status: Chronic Plan to address problem: management as per primary care. (8) Smoker Current Visit: Yes Status: Chronic Plan to address problem: Counseled to stop smoking. Subjective Date of service: 03/25/20 Principal diagnosis: Acute limb ischemia; STARR; COPD; Ac hypoxemic resp failure; DM II; NSTEMI Interval history: Patient under gone below th knee amputation of left lower leg for arterial occusion. Patient Obese. Patient presently sleeping with CPAP FIO2 28% and O2 saturation running 97%. Chest xray obtained 03/19/20 reported no acute abnormalities. ABG FIO2 35%. ABG pH 7.405 pH Units (7.350-7.450) 03/20/20 04:35 ABG pCO2 40.3 mm Hg 03/20/20 04:35 ABG pO2 68.3 mm Hg (80.0-90.0) L 03/20/20 04:35 ABG O2 Saturation 94.3 % (95.0-99.0) L 03/20/20 04:35 Patient afebrile and has mild leukocytosis. Patient given dose of cefazolin. Patient is on S?C Lovenox. Patient is on Protonix for GI prophylaxis. Recommend incentive spirometry. Objective Vital Signs - 12hr 03/25/20 03/25/20 03/25/20 03:29 05:21 05:29 Temperature 97.6 F Pulse Rate 86 Pulse Rate [ Anterior Bilateral Throughout] Pulse Rate [ From Monitor] Respiratory 20 16 2 L Rate Respiratory Rate [Anterior Bilateral Throughout] Respiratory Rate [left foot ] Blood Pressure Blood Pressure 99/69 [Left] O2 Sat by Pulse 98 Oximetry 03/25/20 03/25/20 03/25/20 07:30 07:33 07:48 Temperature 96.8 F L Pulse Rate 93 H Pulse Rate [ 94 H Anterior Bilateral Throughout] Pulse Rate [ From Monitor] Respiratory 20 18 Rate Respiratory 20 Rate [Anterior Bilateral Throughout] Respiratory Rate [left foot ] Blood Pressure 106/80 Blood Pressure [Left] O2 Sat by Pulse 98 97 Oximetry 03/25/20 03/25/20 03/25/20 09:00 09:29 10:00 Temperature Pulse Rate 86 Pulse Rate [ Anterior Bilateral Throughout] Pulse Rate [ 86 From Monitor] Respiratory 20 20 Rate Respiratory Rate [Anterior Bilateral Throughout] Respiratory 20 Rate [left foot ] Blood Pressure Blood Pressure [Left] O2 Sat by Pulse 97 Oximetry 03/25/20 03/25/20 10:05 11:42 Temperature 96.8 F L Pulse Rate 93 H 76 Pulse Rate [ Anterior Bilateral Throughout] Pulse Rate [ From Monitor] Respiratory 18 Rate Respiratory Rate [Anterior Bilateral Throughout] Respiratory Rate [left foot ] Blood Pressure 106/80 128/74 Blood Pressure [Left] O2 Sat by Pulse 79 L Oximetry Constitutional: asleep, appears uncomfortable, other (Sleeping on CPAP.) Eyes: non-icteric ENT: oropharynx moist Neck: supple, no lymphadenopathy, no JVD Effort: mildly labored Ascultation: Bilateral: diminished breath sounds Percussion: Bilateral: not dull Cardiovascular: regular rate and rhythm Gastrointestinal: normoactive bowel sounds, soft, non-tender, non-distended (protuberant) Integumentary: rash, other (cool left foot anterior plantar surface) Extremities: edema, other (BKA left lower leg.) Neurologic: normal mental status, non-focal exam, pupils equal and round, motor strength normal and (limited by pasin in left leg) Psychiatric: mood appropriate, other (Patient sleepy.) CBC and BMP: 03/25/20 09:30 03/25/20 08:13 ABG, PT/INR, D-dimer: ABG ABG pH 7.405 pH Units (7.350-7.450) 03/20/20 04:35 ABG pCO2 40.3 mm Hg 03/20/20 04:35 ABG pO2 68.3 mm Hg (80.0-90.0) L 03/20/20 04:35 ABG O2 Saturation 94.3 % (95.0-99.0) L 03/20/20 04:35 PT/INR, D-dimer PT 12.7 Sec. (12.2-14.9) 03/19/20 08:08 INR 0.94 (0.87-1.13) 03/19/20 08:08 Abnormal lab findings: Abnormal Labs 03/18/20 03/18/20 03/18/20 18:28 18:28 20:56 WBC 12.3 H RBC Hgb Hct Lymph % (Auto) 11.0 L [place] % (Auto) 9.8 H [place] # 1.2 H Seg Neutrophils % 78.4 H Seg Neutrophils # 9.6 H Heparin Anti-Xa Level ABG pO2 ABG HCO3 ABG O2 Saturation ABG Base Excess ABG Hemoglobin Oxyhemoglobin Sodium 132 L Potassium Chloride 91.9 L Carbon Dioxide 20 L BUN Creatinine 1.4 H Glucose 406 H POC Glucose Hemoglobin A1c Calcium Total Creatine Kinase 2727 H 2492 H CK-MB (CK-2) 135.9 H 107.2 H CK-MB (CK-2) Rel Index 4.3 H Troponin T 5.110 H* 3.960 H* D Triglycerides 188 H LDL Cholesterol Direct 141 H 03/18/20 03/19/20 03/19/20 22:21 01:57 08:08 WBC RBC Hgb Hct Lymph % (Auto) [place] % (Auto) [place] # Seg Neutrophils % Seg Neutrophils # Heparin Anti-Xa Level ABG pO2 ABG HCO3 ABG O2 Saturation ABG Base Excess ABG Hemoglobin Oxyhemoglobin Sodium Potassium Chloride Carbon Dioxide BUN Creatinine Glucose POC Glucose 317 H Hemoglobin A1c 11.0 H Calcium Total Creatine Kinase 7255 H CK-MB (CK-2) 79.3 H CK-MB (CK-2) Rel Index Troponin T 5.540 H* D Triglycerides LDL Cholesterol Direct 03/19/20 03/19/20 03/19/20 08:08 08:08 08:08 WBC 13.3 H RBC Hgb Hct Lymph % (Auto) 10.7 L [place] % (Auto) 8.5 H [place] # 1.1 H Seg Neutrophils % 80.0 H Seg Neutrophils # 10.6 H Heparin Anti-Xa Level 0.10 L ABG pO2 ABG HCO3 ABG O2 Saturation ABG Base Excess ABG Hemoglobin Oxyhemoglobin Sodium 133 L Potassium 5.1 H Chloride Carbon Dioxide 17 L BUN 23 H Creatinine Glucose 313 H POC Glucose Hemoglobin A1c Calcium Total Creatine Kinase CK-MB (CK-2) CK-MB (CK-2) Rel Index Troponin T Triglycerides LDL Cholesterol Direct 03/19/20 03/19/20 03/19/20 15:40 18:23 21:32 WBC RBC Hgb Hct Lymph % (Auto) [place] % (Auto) [place] # Seg Neutrophils % Seg Neutrophils # Heparin Anti-Xa Level < 0.10 L ABG pO2 ABG HCO3 18.3 L ABG O2 Saturation ABG Base Excess -5.4 L ABG Hemoglobin 12.2 L Oxyhemoglobin 94.6 L Sodium Potassium Chloride Carbon Dioxide BUN Creatinine Glucose POC Glucose 348 H Hemoglobin A1c Calcium Total Creatine Kinase CK-MB (CK-2) CK-MB (CK-2) Rel Index Troponin T Triglycerides LDL Cholesterol Direct 03/20/20 03/20/20 03/20/20 04:35 05:12 05:12 WBC 11.1 H RBC 3.63 L Hgb 11.0 L Hct 32.7 L D Lymph % (Auto) [place] % (Auto) 8.1 H [place] # 0.9 H Seg Neutrophils % 75.8 H Seg Neutrophils # 8.4 H Heparin Anti-Xa Level 0.28 L ABG pO2 68.3 L ABG HCO3 ABG O2 Saturation 94.3 L ABG Base Excess ABG Hemoglobin 7.1 L Oxyhemoglobin 92.3 L Sodium Potassium Chloride Carbon Dioxide BUN Creatinine Glucose POC Glucose Hemoglobin A1c Calcium Total Creatine Kinase CK-MB (CK-2) CK-MB (CK-2) Rel Index Troponin T Triglycerides LDL Cholesterol Direct 03/20/20 03/20/20 03/20/20 05:12 07:49 12:15 WBC RBC Hgb Hct Lymph % (Auto) [place] % (Auto) [place] # Seg Neutrophils % Seg Neutrophils # Heparin Anti-Xa Level ABG pO2 ABG HCO3 ABG O2 Saturation ABG Base Excess ABG Hemoglobin Oxyhemoglobin Sodium 134 L Potassium Chloride Carbon Dioxide 21 L BUN 23 H Creatinine Glucose 275 H POC Glucose 294 H 357 H Hemoglobin A1c Calcium Total Creatine Kinase CK-MB (CK-2) CK-MB (CK-2) Rel Index Troponin T 3.200 H* D Triglycerides LDL Cholesterol Direct 03/20/20 03/20/20 03/21/20 17:16 22:08 04:44 WBC RBC Hgb Hct Lymph % (Auto) [place] % (Auto) [place] # Seg Neutrophils % Seg Neutrophils # Heparin Anti-Xa Level ABG pO2 ABG HCO3 ABG O2 Saturation ABG Base Excess ABG Hemoglobin Oxyhemoglobin Sodium 136 L Potassium Chloride Carbon Dioxide 18 L BUN 26 H Creatinine Glucose 266 H POC Glucose 327 H 292 H Hemoglobin A1c Calcium 8.1 L Total Creatine Kinase CK-MB (CK-2) CK-MB (CK-2) Rel Index Troponin T Triglycerides LDL Cholesterol Direct 03/21/20 03/21/20 03/21/20 07:50 12:25 15:53 WBC RBC Hgb Hct Lymph % (Auto) [place] % (Auto) [place] # Seg Neutrophils % Seg Neutrophils # Heparin Anti-Xa Level ABG pO2 ABG HCO3 ABG O2 Saturation ABG Base Excess ABG Hemoglobin Oxyhemoglobin Sodium Potassium Chloride Carbon Dioxide BUN Creatinine Glucose POC Glucose 271 H 314 H 436 H Hemoglobin A1c Calcium Total Creatine Kinase CK-MB (CK-2) CK-MB (CK-2) Rel Index Troponin T Triglycerides LDL Cholesterol Direct 03/21/20 03/21/20 03/22/20 17:44 21:55 04:33 WBC RBC Hgb 10.0 L Hct 29.4 L Lymph % (Auto) [place] % (Auto) [place] # Seg Neutrophils % Seg Neutrophils # Heparin Anti-Xa Level ABG pO2 ABG HCO3 ABG O2 Saturation ABG Base Excess ABG Hemoglobin Oxyhemoglobin Sodium Potassium Chloride Carbon Dioxide BUN Creatinine Glucose POC Glucose 362 H 329 H Hemoglobin A1c Calcium Total Creatine Kinase CK-MB (CK-2) CK-MB (CK-2) Rel Index Troponin T Triglycerides LDL Cholesterol Direct 03/22/20 03/22/20 03/22/20 08:57 14:12 19:57 WBC RBC Hgb Hct Lymph % (Auto) [place] % (Auto) [place] # Seg Neutrophils % Seg Neutrophils # Heparin Anti-Xa Level ABG pO2 ABG HCO3 ABG O2 Saturation ABG Base Excess ABG Hemoglobin Oxyhemoglobin Sodium Potassium Chloride Carbon Dioxide BUN Creatinine Glucose POC Glucose 284 H 319 H 356 H Hemoglobin A1c Calcium Total Creatine Kinase CK-MB (CK-2) CK-MB (CK-2) Rel Index Troponin T Triglycerides LDL Cholesterol Direct 03/22/20 03/23/20 03/23/20 21:44 08:18 12:46 WBC RBC Hgb Hct Lymph % (Auto) [place] % (Auto) [place] # Seg Neutrophils % Seg Neutrophils # Heparin Anti-Xa Level ABG pO2 ABG HCO3 ABG O2 Saturation ABG Base Excess ABG Hemoglobin Oxyhemoglobin Sodium Potassium Chloride Carbon Dioxide BUN Creatinine Glucose POC Glucose 336 H 215 H 262 H Hemoglobin A1c Calcium Total Creatine Kinase CK-MB (CK-2) CK-MB (CK-2) Rel Index Troponin T Triglycerides LDL Cholesterol Direct 03/23/20 03/23/20 03/24/20 15:56 22:05 02:35 WBC RBC Hgb 9.0 L Hct 25.8 L Lymph % (Auto) [place] % (Auto) [place] # Seg Neutrophils % Seg Neutrophils # Heparin Anti-Xa Level ABG pO2 ABG HCO3 ABG O2 Saturation ABG Base Excess ABG Hemoglobin Oxyhemoglobin Sodium Potassium Chloride Carbon Dioxide BUN Creatinine Glucose POC Glucose 246 H 322 H Hemoglobin A1c Calcium Total Creatine Kinase CK-MB (CK-2) CK-MB (CK-2) Rel Index Troponin T Triglycerides LDL Cholesterol Direct 03/24/20 03/24/20 03/24/20 07:38 11:45 16:02 WBC RBC Hgb Hct Lymph % (Auto) [place] % (Auto) [place] # Seg Neutrophils % Seg Neutrophils # Heparin Anti-Xa Level ABG pO2 ABG HCO3 ABG O2 Saturation ABG Base Excess ABG Hemoglobin Oxyhemoglobin Sodium Potassium Chloride Carbon Dioxide BUN Creatinine Glucose POC Glucose 289 H 257 H 150 H Hemoglobin A1c Calcium Total Creatine Kinase CK-MB (CK-2) CK-MB (CK-2) Rel Index Troponin T Triglycerides LDL Cholesterol Direct 03/24/20 03/25/20 03/25/20 21:24 04:06 07:39 WBC RBC Hgb Hct Lymph % (Auto) [place] % (Auto) [place] # Seg Neutrophils % Seg Neutrophils # Heparin Anti-Xa Level 0.10 L ABG pO2 ABG HCO3 ABG O2 Saturation ABG Base Excess ABG Hemoglobin Oxyhemoglobin Sodium Potassium Chloride Carbon Dioxide BUN Creatinine Glucose POC Glucose 228 H 332 H Hemoglobin A1c Calcium Total Creatine Kinase CK-MB (CK-2) CK-MB (CK-2) Rel Index Troponin T Triglycerides LDL Cholesterol Direct 03/25/20 03/25/20 03/25/20 08:13 09:30 11:59 WBC 13.1 H RBC 2.82 L Hgb 8.5 L Hct 26.1 L Lymph % (Auto) [place] % (Auto) [place] # Seg Neutrophils % Seg Neutrophils # Heparin Anti-Xa Level ABG pO2 ABG HCO3 ABG O2 Saturation ABG Base Excess ABG Hemoglobin Oxyhemoglobin Sodium 131 L Potassium 5.3 H Chloride Carbon Dioxide 20 L BUN 39 H Creatinine 1.4 H Glucose 313 H POC Glucose 273 H Hemoglobin A1c Calcium 8.1 L Total Creatine Kinase CK-MB (CK-2) CK-MB (CK-2) Rel Index Troponin T Triglycerides LDL Cholesterol Direct Chest x-ray: report reviewed, image reviewed Additional Studies: CHEST 1 VIEW 03/19/20 INDICATION / CLINICAL INFORMATION: Hypoxemia; COPD. COMPARISON: None available. FINDINGS: SUPPORT DEVICES: None. HEART / MEDIASTINUM: Changes of prior median sternotomy are noted. There is prominence the cardiac silhouette LUNGS / PLEURA: No significant pulmonary or pleural abnormality.. No p neumothorax. ADDITIONAL FINDINGS: No significant additional findings. IMPRESSION: 1. No acute findings. Allied health notes reviewed: nursing
[2020-03-25] MEDS: SODIUM CHLORIDE 0.9% 1000 ML 1,000 ML IV SCH (13:45)
[2020-03-25] MEDS ORDERED: HYDROmorphone 1 MG/1 ML INJ IV PRN (13:48)
--- NOTE | 2020-03-25 13:48 | Anesthesia Day of Surgery ---
Anesthesia Day of Surgery - Day of Surgery Patient Examined: Yes Patient H&P Reviewed: Yes Patient is NPO: Yes Beta Blockers: Yes (metoprolol today AM)
--- NOTE | 2020-03-25 13:48 | Anesthesia Consultation ---
Anesthesia Consult and Med Hx Date of service: 03/25/20 - Airway Anesthetic Teeth Evaluation: Poor ROM Head & Neck: Adequate Mental/Hyoid Distance: Adequate Mallampati Class: Class III Intubation Access Assessment: Possibly Difficult - Pulmonary Exam CTA: Yes (diminished at bases and cough sounds productive) - Cardiac Exam Cardiac Exam: RRR - Pre-Operative Health Status ASA Pre-Surgery Classification: ASA3 Proposed Anesthetic Plan: General - Pulmonary Hx Smoking: Yes (1 PPD) COPD: Yes Home Oxygen Therapy: No Hx Sleep Apnea: Yes (compliant with CPAP) - Cardiovascular System Hx Hypertension: Yes Hx Coronary Artery Disease: Yes (s/p CABG 2014; EF 30-35%) Hx Cardia Arrhythmia: No Hx Pacemaker: No Hx Internal Defibrillator: No - Central Nervous System CVA: No - Endocrine Hx Renal Disease: Yes (DYLON) Hx Liver Disease: No Hx Insulin Dependent Diabetes: Yes Hx Thyroid Disease: No - Hematic Hx Anemia: Yes - Other Systems Hx Obesity: Yes (BMI 36) - Additional Comments Anesthesia Medical History Comments: No hx anesthetic complications. Has been evaluated by cardiology for type II NSTEMI this admission. Patient states that he is OK with receiving blood transfusion if needed for life saving measures.
[2020-03-25] MEDS ORDERED: ceFAZolin/Water 2 GM/20 ML 2 GM/20 ML SYRINGE IV ONE (14:27)
[2020-03-25] MEDS ORDERED: ceFAZolin 1 GM VIAL ONE (14:31)
[2020-03-25] MEDS ORDERED: PHENYLEPHRINE/NS 1,000 MCG/10 ML SYRINGE (OR USE) IV ONE (14:38)
[2020-03-25] MEDS ORDERED: ceFAZolin/STERILE WATER 2 GM/20 ML SYRINGE IV NR (15:00)
[2020-03-25] MEDS ORDERED: GLYCOPYRROLATE 0.4 MG/2 ML INJ ONE ×2 (15:08→15:19)
[2020-03-25] MEDS ORDERED: ONDANSETRON 4 MG/2 ML INJ ONE (15:08)
[2020-03-25] MEDS ORDERED: NEOSTIGMINE 10MG/10 ML INJ MDV ONE (15:08)
[2020-03-25] MEDS ORDERED: SODIUM CHLORIDE 0.9% IRR 1,500 ML BOTTLE IR ONE (15:09)
--- NOTE | 2020-03-25 15:17 | Operative Report ---
Operative Report Operative Report: Date of procedure: 03/25/2020 Pre-operative diagnosis: Acute Left Lower Extremity Ischemia Status Post Revascu larization with 4 Compartment Fasciotomy Post-operative diagnosis: Same Procedure(s): Left Below Knee Amputation Surgeon: Morris Mckenzie MD Water Softener Servicer And Installer: None Anesthesia: General Endotracheal Anesthesia EBL: 50 mL Counts: Correct Complications: None Condition: Stable Findings: All remaining muscle appeared viable and the incision was closed without tension. Specimen: Left Leg Sent to Pathology Indication: The patient is a 54-year-old male who presented with acute left lower extremity ischemia secondary to thrombosis of his SFA, popliteal artery, and all tibial vessels. He had revascularization of his left lower extremity followed by 4 compartment fasciotomy however his foot was not viable secondary to the length of time prior to the initial event and his presentation to the hospital. Upon initial presentation he had elevated troponins likely of cardiac nature and after the troponins trended down it was determined that he was suitable for return to the operating room for a completion below-knee amputation. He was given the risk, benefits, and alternative procedures and consented to the procedure. Description of Procedure: The patient was brought to the operating room and laid in supine position after general endotracheal anesthesia the patient's left leg was prepped and draped in normal sterile fashion. The patient's leg was then elevated to drain the venous system and a tourniquet was inflated to 300 mmHg. A transverse incision was then created approximately 3 fingerbreadths below the tibial tuberosity using a 10 blade. The posterior skin incision was then made using a 10 blade. The patient's fasciotomy incisions were still open from his previous operation. Electrocautery was then used to divide the muscle down to the tibia and then down to the fibula. I then used a periosteal elevator to elevate the periosteum on the tibia approximately 2 cm above the incision and then I used an oscillating saw to divide the tibia. I then used a double-action bone cutter to divide the fibula approximately 2 cm above the tibia. I divided the remainder of the soft tissue using electrocautery and passed the specimen off. I identified the neurovascular bundle and ligated both the vein and artery using 0 silk stick ties. I then used 0 silk to perform high ligation of the nerve. I achieved hemostasis using electrocautery and direct pressure. Once hemostasis was achieved I used a rasps to smooth the tibia and then copiously irrigated the wound with saline. I then closed the wound in 2 layers using 0 Vicryl to reapproximate the fascia and samantha to close the skin. I dressed the wound with Xeroform gauze, fluffs, ABDs, Kerlix, and an Neville bandage. I placed an appropriately sized knee immobilizer. The patient tolerated the procedure well all sponge needle and instrument counts were the patient was taken to recovery in stable condition.
[2020-03-25] MEDS ORDERED: SUGAMMADEX SODIUM 200 MG/2 ML VIAL IV ONE (15:23)
[2020-03-25] MEDS ORDERED: ALBUTEROL 8.5 GM MDI INHALATION IH ONE (15:26)
[2020-03-25] MEDS: HYDROcodone/ACETAMINOPHEN 5-325 MG TAB PO PRN (16:30)
--- NOTE | 2020-03-25 17:25 | Post Anesthesia Evaluation ---
- Post Anesthesia Evaluation Patient Participated: Yes Airway Patent: Yes Stable Respiratory Function: Yes Nausea/Vomiting: No Temp > 96.8F: Yes Pain Manageable: Yes Adequeate Hydration: Yes Anesthesia Complications: No
[2020-03-25] MEDS: ENOXAPARIN 120 MG/0.8 ML INJ SUB-Q SCH (21:16)
[2020-03-25] MEDS: INSULIN GLARGINE 100 UNITS/ML SUB-Q SCH (21:16)
[2020-03-25] MEDS ORDERED: ENOXAPARIN 100 MG/1 ML INJ SUB-Q SCH (22:00)
[2020-03-26] MEDS: METOPROLOL TARTRATE 50 MG TAB PO SCH ×3 (00:02→21:59)
[2020-03-26] MEDS: SODIUM CHLORIDE 0.9% 1000 ML 1,000 ML IV SCH ×2 (02:33→17:57)
[2020-03-26] MEDS: HYDROcodone/ACETAMINOPHEN 5-325 MG TAB PO PRN ×3 (04:41→22:03)
[2020-03-26 06:09] LABS: Basophils # (Auto) 0.1 K/mm3 (0.0-0.1); Basophils % (Auto) 0.3 % (0.0-1.8); Eosinophils # (Auto) 0.1 K/mm3 (0.0-0.4); Eosinophils % (Auto) 0.5 % (0.0-4.3); Hematocrit 28.2 % (35.5-45.6); Hemoglobin 9.1 gm/dl (11.8-15.2); Lymphocytes # (Auto) 1.6 K/mm3 (1.2-5.4); Lymphocytes % (Auto) 8.9 % (13.4-35.0); Mean Corpuscular HGB Conc 32 % (32-34); Mean Corpuscular Volume 93 fl (84-94); Monocytes % (Auto) 5.9 % (0.0-7.3); Platelet Count 340 K/mm3 (140-440); Red Blood Count 3.05 M/mm3 (3.65-5.03); Red Cell Distribution Width 13.8 % (13.2-15.2)
--- NOTE | 2020-03-26 06:10 | Progress Note ---
Assessment and Plan --Acute left lower extremity ischemia Current Visit: Yes Status: Acute 03/19/2020 status post endovascular revascularization 03/19/2020 s/p left lower extremity 4 compartment fasciotomy Management per vascular For left BKA on 03/25/2020 --Non-ST elevation PA : Current Visit: Yes Status: Acute Patient has history of CABG patient denies any chest pain. Management per cardiology Per cardiology non-STEMI 2 Elevated troponins at the time of admission --Acute systolic CHF; EF 30-35%% Current Visit: Yes Status: Acute Beta-blockers, BIJAN inhibitor, diuretics Improved -- Hyperglycemia due to diabetes mellitus Current Visit: Yes Status: Acute Accu-Chek sliding scale coverage ADA diet Long-acting insulin as needed, I0j---47.0 --Nicotine dependence Current Visit: Yes Status: Acute Smoking cessation nicotine patch as needed --DVT prophylaxis Current Visit: Yes Status: Acute Patient currently on anticoagulation. -- Full code status Current Visit: Yes Status: Acute Patient is on heparin drip Discharge planning issues possible acute rehab placement/SNF placement Subjective Date of service: 03/24/20 Principal diagnosis: Acute limb ischemia; STARR; COPD; Ac hypoxemic resp failure; DM II; NSTEMI Interval history: 54-year-old male with known history of CVA without any residual deficits, hypertension ,diabetes mellitus, coronary artery disease with CABG x2, pulmonary embolism and DVT presented to the emergency room today with a complaint of left foot pain and discoloration for about a week.His leg is cool from the knee down and cold and mottled from the lower calf down. He has an insensate foot from the midfoot down with no ability to move the toes. This has been present since he woke up. Last time he had function in his foot was last night. Left lower extremity ischemia, vascular evaluated, status post fasciotomy and revascularization. For left BKA on 03/25/2020 Objective - Constitutional Vitals: Vital Signs - 12hr 03/25/20 03/25/20 03/25/20 18:08 19:29 19:36 Temperature 97.6 F Pulse Rate 84 Pulse Rate [ Anterior Bilateral Throughout] Pulse Rate [ From Monitor] Respiratory 20 20 20 Rate Respiratory Rate [Anterior Bilateral Throughout] Blood Pressure 97/66 O2 Sat by Pulse 97 Oximetry 08/10/20 08/10/20 08/10/20 20:08 21:29 22:00 Temperature Pulse Rate Pulse Rate [ Anterior Bilateral Throughout] Pulse Rate [ 85 From Monitor] Respiratory 20 20 20 Rate Respiratory Rate [Anterior Bilateral Throughout] Blood Pressure O2 Sat by Pulse 98 Oximetry 03/25/20 03/25/20 03/25/20 22:08 22:10 22:15 Temperature Pulse Rate Pulse Rate [ 98 H Anterior Bilateral Throughout] Pulse Rate [ From Monitor] Respiratory 20 20 Rate Respiratory 19 Rate [Anterior Bilateral Throughout] Blood Pressure O2 Sat by Pulse Oximetry 03/25/20 03/25/20 03/26/20 22:29 23:48 00:02 Temperature 97.8 F Pulse Rate 94 H 94 H Pulse Rate [ Anterior Bilateral Throughout] Pulse Rate [ From Monitor] Respiratory 20 Rate Respiratory Rate [Anterior Bilateral Throughout] Blood Pressure 133/81 133/81 O2 Sat by Pulse 98 99 Oximetry 03/26/20 03/26/20 03/26/20 00:08 01:00 03:59 Temperature 98.6 F Pulse Rate 90 91 H Pulse Rate [ Anterior Bilateral Throughout] Pulse Rate [ From Monitor] Respiratory 20 20 Rate Respiratory Rate [Anterior Bilateral Throughout] Blood Pressure 115/78 O2 Sat by Pulse 97 Oximetry 03/26/20 04:41 Temperature Pulse Rate Pulse Rate [ Anterior Bilateral Throughout] Pulse Rate [ From Monitor] Respiratory 20 Rate Respiratory Rate [Anterior Bilateral Throughout] Blood Pressure O2 Sat by Pulse Oximetry General appearance: Present: no acute distress, well-nourished - EENT Eyes: PERRL, EOM intact ENT: hearing intact, clear oral mucosa Ears: bilateral: normal - Neck Neck: supple, normal ROM - Respiratory Respiratory effort: normal Respiratory: bilateral: CTA - Breasts Breasts: normal - Cardiovascular Heart rate: 78 Rhythm: regular Heart Sounds: Present: S1 & S2. Absent: gallop, rub Extremities: pulses intact, No edema, normal color, Full ROM Extremity abnormal: other (Left lower lobe ischemic changes) - Gastrointestinal General gastrointestinal: Present: soft, non-tender, non-distended, normal bowel sounds - Genitourinary Male genitourinary: normal - Integumentary Integumentary: clear, warm, dry - Musculoskeletal Musculoskeletal: 1, strength equal bilaterally - Neurologic Neurologic: moves all extremities - Psychiatric Psychiatric: memory intact, appropriate mood/affect, intact judgment & insight - Labs CBC & Chem 7: 03/26/20 05:15 03/25/20 08:13 Labs: Abnormal lab results 03/25/20 03/25/20 03/25/20 Range/Units 07:39 08:13 09:30 WBC 13.1 H (4.5-11.0) K/mm3 RBC 2.82 L (3.65-5.03) M/mm3 Hgb 8.5 L (11.8-15.2) gm/dl Hct 26.1 L (35.5-45.6) % Sodium 131 L (137-145) mmol/L Potassium 5.3 H (3.6-5.0) mmol/L Carbon Dioxide 20 L (22-30) mmol/L BUN 39 H (9-20) mg/dL Creatinine 1.4 H (0.8-1.3) mg/dL Glucose 313 H (75-100) mg/dL POC Glucose 332 H (70-105) Calcium 8.1 L (8.4-10.2) mg/dL 03/25/20 03/25/20 03/25/20 Range/Units 11:59 13:54 15:58 WBC (4.5-11.0) K/mm3 RBC (3.65-5.03) M/mm3 Hgb (11.8-15.2) gm/dl Hct (35.5-45.6) % Sodium (137-145) mmol/L Potassium (3.6-5.0) mmol/L Carbon Dioxide (22-30) mmol/L BUN (9-20) mg/dL Creatinine (0.8-1.3) mg/dL Glucose (75-100) mg/dL POC Glucose 273 H 246 H 235 H (70-105) Calcium (8.4-10.2) mg/dL 03/25/20 Range/Units 20:45 WBC (4.5-11.0) K/mm3 RBC (3.65-5.03) M/mm3 Hgb (11.8-15.2) gm/dl Hct (35.5-45.6) % Sodium (137-145) mmol/L Potassium (3.6-5.0) mmol/L Carbon Dioxide (22-30) mmol/L BUN (9-20) mg/dL Creatinine (0.8-1.3) mg/dL Glucose (75-100) mg/dL POC Glucose 178 H (70-105) Calcium (8.4-10.2) mg/dL HEART Score - HEART Score Troponin: Troponin T 3.200 ng/mL (0.00-0.029) H* D 03/20/20 05:12
[2020-03-26 07:35] LABS: Basophils # (Auto) 0.1 K/mm3 (0.0-0.1); Basophils % (Auto) 0.7 % (0.0-1.8); Eosinophils # (Auto) 0.1 K/mm3 (0.0-0.4); Eosinophils % (Auto) 0.6 % (0.0-4.3); Hematocrit 27.9 % (35.5-45.6); Hemoglobin 9.2 gm/dl (11.8-15.2); Lymphocytes # (Auto) 1.4 K/mm3 (1.2-5.4); Lymphocytes % (Auto) 8.9 % (13.4-35.0); Mean Corpuscular HGB Conc 33 % (32-34); Mean Corpuscular Volume 91 fl (84-94); Monocytes # (Auto) 0.8 K/mm3 (0.0-0.8); Platelet Count 363 K/mm3 (140-440); Red Blood Count 3.05 M/mm3 (3.65-5.03); Red Cell Distribution Width 13.9 % (13.2-15.2)
[2020-03-26] MEDS: [UNRECOGNIZED DRUG - REMARK] SUB-Q SCH ×4 (09:24→22:00)
[2020-03-26] MEDS: CLOPIDOGREL 75 MG TAB PO SCH (09:25)
[2020-03-26] MEDS: PREGABALIN 75 MG CAP PO SCH ×2 (09:25→21:59)
[2020-03-26] MEDS: PANTOPRAZOLE 40 MG TAB PO SCH ×2 (09:25→21:59)
[2020-03-26] MEDS: LISINOPRIL 5 MG TAB PO SCH (09:26)
[2020-03-26] MEDS: ENOXAPARIN 120 MG/0.8 ML INJ SUB-Q SCH (09:26)
--- NOTE | 2020-03-26 09:54 | Progress Note ---
Assessment and Plan Assessment and plan: --Hyperkalemia; Current Visit: Yes Status: Acute Calcium gluconate, Kayexalate, monitor potassium levels --Acute left lower extremity ischemia Current Visit: Yes Status: Acute 03/19/2020 status post endovascular revascularization. 03/19/2020 s/p left lower extremity 4 compartment fasciotomy Management per vascular s/p left BKA on 03/25/2020 --Non-ST elevation NM : Current Visit: Yes Status: Acute Patient has history of CABG patient denies any chest pain. Management per cardiology Per cardiology non-STEMI 2 Elevated troponins at the time of admission --Acute systolic CHF; EF 30-35%% Current Visit: Yes Status: Acute Beta-blockers, BIJAN inhibitor, diuretics Improved -- Hyperglycemia due to diabetes mellitus Current Visit: Yes Status: Acute Accu-Chek sliding scale coverage ADA diet Long-acting insulin as needed, Q2i---80.0 --Nicotine dependence Current Visit: Yes Status: Acute Smoking cessation nicotine patch as needed --DVT prophylaxis Current Visit: Yes Status: Acute Patient currently on anticoagulation. -- Full code status Current Visit: Yes Status: Acute Patient is on heparin drip Discharge planning issues possible acute rehab placement/SNF placement Monitor closely and adjust management as needed Plan of care reviewed with the patient and her nurse History Interval history: Patient seen and examined medical records reviewed Patient feels slightly better, complains of left leg pain Alert awake oriented Vital signs reviewed Hospitalist Physical - Constitutional Vitals: Temp Pulse Resp BP Pulse Ox 97.5 F L 95 H 18 117/76 96 03/26/20 07:26 03/26/20 07:26 03/26/20 07:26 03/26/20 09:26 03/26/20 07:26 General appearance: Present: no acute distress, well-nourished - EENT Eyes: Present: PERRL, EOM intact - Neck Neck: Present: supple, normal ROM - Respiratory Respiratory effort: normal Respiratory: bilateral: diminished, negative: rales, rhonchi, wheezing - Cardiovascular Rhythm: regular Heart Sounds: Present: S1 & S2 - Extremities Extremities: no ischemia, No edema - Abdominal General gastrointestinal: soft, non-tender, non-distended, normal bowel sounds - Integumentary Integumentary: Present: clear, warm - Psychiatric Psychiatric: appropriate mood/affect, cooperative - Neurologic Neurologic: CNII-XII intact, moves all extremities HEART Score - HEART Score Troponin: Troponin T 3.200 ng/mL (0.00-0.029) H* D 03/20/20 05:12 Results - Labs CBC & Chem 7: 03/26/20 06:59 08 13:58 Labs: Laboratory Last Values WBC 15.6 K/mm3 (4.5-11.0) H 03/26/20 06:59 RBC 3.05 M/mm3 (3.65-5.03) L 03/26/20 06:59 Hgb 9.2 gm/dl (11.8-15.2) L 03/26/20 06:59 Hct 27.9 % (35.5-45.6) L 03/26/20 06:59 MCV 91 fl (84-94) 03/26/20 06:59 MCH 30 pg (28-32) 03/26/20 06:59 MCHC 33 % (32-34) 03/26/20 06:59 RDW 13.9 % (13.2-15.2) 03/26/20 06:59 Plt Count 363 K/mm3 (140-440) 03/26/20 06:59 Lymph % (Auto) 8.9 % (13.4-35.0) L 03/26/20 06:59 [place] % (Auto) 5.0 % (0.0-7.3) 03/26/20 06:59 Eos % (Auto) 0.6 % (0.0-4.3) 03/26/20 06:59 Baso % (Auto) 0.7 % (0.0-1.8) 03/26/20 06:59 Lymph # 1.4 K/mm3 (1.2-5.4) 03/26/20 06:59 [place] # 0.8 K/mm3 (0.0-0.8) 03/26/20 06:59 Eos # 0.1 K/mm3 (0.0-0.4) 03/26/20 06:59 Baso # 0.1 K/mm3 (0.0-0.1) 03/26/20 06:59 Seg Neutrophils % 84.8 % (40.0-70.0) H 03/26/20 06:59 Seg Neutrophils # 13.2 K/mm3 (1.8-7.7) H 03/26/20 06:59 PT 12.7 Sec. (12.2-14.9) 03/19/20 08:08 INR 0.94 (0.87-1.13) 03/19/20 08:08 APTT 27.7 Sec. (24.2-36.6) 03/18/20 18:28 Heparin Anti-Xa Level 0.10 U.I./ml (0.3-0.7) L 03/25/20 04:06 ABG pH 7.405 pH Units (7.350-7.450) 03/20/20 04:35 ABG pCO2 40.3 mm Hg 03/20/20 04:35 ABG pO2 68.3 mm Hg (80.0-90.0) L 03/20/20 04:35 ABG HCO3 24.6 mmol/L (20.0-26.0) 03/20/20 04:35 ABG O2 Saturation 94.3 % (95.0-99.0) L 03/20/20 04:35 ABG O2 Content 9.3 (0.0-44) 03/20/20 04:35 ABG Base Excess -0.1 mmol/L (-2.0-3.0) 03/20/20 04:35 ABG Hemoglobin 7.1 gm/dl (14.0-18.0) L 03/20/20 04:35 ABG Carboxyhemoglobin 1.8 % (0.0-5.0) 03/20/20 04:35 ABG Methemoglobin 0.4 % (0.0-1.5) 03/20/20 04:35 Oxyhemoglobin 92.3 % (95.0-99.0) L 03/20/20 04:35 FiO2 35 % 03/20/20 04:35 Sodium 131 mmol/L (137-145) L 03/26/20 06:59 Potassium 5.8 mmol/L (3.6-5.0) H 03/26/20 06:59 Chloride 100.3 mmol/L (98-107) 03/26/20 06:59 Carbon Dioxide 16 mmol/L (22-30) L 03/26/20 06:59 Anion Gap 21 mmol/L 03/26/20 06:59 BUN 42 mg/dL (9-20) H 03/26/20 06:59 Creatinine 1.4 mg/dL (0.8-1.3) H 03/26/20 06:59 Estimated GFR 53 ml/min 03/26/20 06:59 BUN/Creatinine Ratio 30 % 03/26/20 06:59 Glucose 163 mg/dL (75-100) H 03/26/20 06:59 POC Glucose 170 (70-105) H 03/26/20 07:43 Hemoglobin A1c 11.0 % (4-6) H 03/18/20 22:21 Calcium 8.0 mg/dL (8.4-10.2) L 03/26/20 06:59 Total Creatine Kinase 7255 units/L (55-170) H 03/19/20 08:08 CK-MB (CK-2) 79.3 ng/mL (0.0-4.0) H 03/19/20 08:08 CK-MB (CK-2) Rel Index 1.0 (0-4) 03/19/20 08:08 Troponin T 3.200 ng/mL (0.00-0.029) H* D 03/20/20 05:12 Triglycerides 188 mg/dL (2-149) H 03/18/20 18:28 Cholesterol 199 mg/dL (50-199) 03/18/20 18:28 LDL Cholesterol Direct 141 mg/dL (50-130) H 03/18/20 18:28 HDL Cholesterol 47 mg/dL (40-59) 03/18/20 18:28 Cholesterol/HDL Ratio 4.23 % 03/18/20 18:28 Blood Type B POSITIVE 03/25/20 11:42 Antibody Screen Negative 03/25/20 11:42 - Diagnostic Impressions Diagnostic Impressions: Echocardiogram 03/19/20 12:49 Transthoracic Echocardiogram Indication: CAD and Abnormal EKG HR: 110 Conclusions *The study is technically limited due to patient body habitus. *The left ventricular chamber size is mildly dilated. *Global left ventricular systolic function is moderate to severely decreased. *The estimated ejection fraction is 30-35%. *The basal inferolateral, and basal inferior wall segments are normal. *The mid inferolateral, mid inferior, apical lateral, and apical inferior wall segments are akinetic. *The left atrial chamber size is normal. Findings Procedure Info: The study is technically limited due to patient body habitus. The study was technically limited due to the patient's inability to lay in the left lateral decubitus position. Left Ventricle: The left ventricular chamber size is mildly dilated. Global left ventricular systolic function is moderate to severely decreased. The estimated ejection fraction is 30-35%. The basal inferolateral, and basal inferior wall segments are normal. The mid inferolateral, mid inferior, apical lateral, and apical inferior wall segments are akinetic. Left Atrium: The left atrial chamber size is normal. Right Ventricle: The right ventricle is not well visualized. Right Atrium: The right atrium is not well visualized. The right atrial cavity size is normal. Aortic Valve: The aortic valve is trileaflet. Mitral Valve: The mitral valve leaflets are moderately thickened. There is mild mitral regurgitation. Tricuspid Valve: The tricuspid valve is not well visualized. There is trace tricuspid regurgitation. Pulmonic Valve: The pulmonic valve is not well visualized. Pericardium: There is no pericardial effusion. Aorta: The aorta appears normal. Venous: The venous system is not well visualized. Contrast: Definity was used to optimize study. Measurements Chambers 2D Name Value Normal Range IVSd (2D) 0.94 cm (0.6 - 1.1) LVPWd (2D) 0.94 cm (0.6 - 1.1) LVIDd (2D) 6.15 cm (3.7 - 5.6) LVIDs (2D) 5.2 cm (2 - 3.8) LV FS (2D) 15.5 % - EF Teichholz (2D) 32.08 % - Ao root diameter (2D) 2.77 cm (2 - 3.7) Volumes/Mass Name Value Normal Range LA ESV SP 4CH (A/L) 73.77 ml - LA ESV SP 2CH (A/L) 66.45 ml - LA ESV BP (A/L) 71.61 ml - LA ESV BP (A/L) index 30.6 ml/m2 - LA ESV SP 4CH (MOD) 72.55 ml - LA ESV SP 2CH (MOD) 65.34 ml - LA ESV BP (MOD) 70.27 ml - LA ESV BP (MOD) index 30.03 ml/m2 - Diastolic/Systolic Function Name Value Normal Range MV E-wave Vmax 0.85 m/sec - MV deceleration time 69.14 msec - MV A-wave Vmax 0.89 m/sec - MV E:A ratio 0.95 ratio - Aortic Valve Name Value Normal Range AV Vmax 0.96 m/sec - AV VTI 11.83 cm - AV peak gradient 3.68 mmHg - AV mean gradient 1.6 mmHg - LVOT diameter 2.19 cm - LVOT Vmax 0.86 m/sec - LVOT VTI 13.33 cm - LVOT peak gradient 2.96 mmHg - LVOT mean gradient 1.48 mmHg - SV LVOT 50.08 ml - DEYA (continuity Vmax) 3.37 cm2 - DEYA (continuity VTI) 4.23 cm2 - Ascending Ao 2.92 cm - Pulmonic Valve/Qp:Qs Name Value Normal Range PV Vmax 1.08 m/sec - PV VTI 15.88 cm - PV peak gradient 4.7 mmHg - PV mean gradient 2.18 mmHg - RVOT Vmax 0.82 m/sec - RVOT VTI 11.48 cm - RVOT peak gradient 2.67 mmHg - Wallmotion BAS Not Seen BA Not Seen BAL Not Seen BAY Normal BI Normal BIS Not Seen MAS Not Seen MA Not Seen MAL Not Seen MIL Akinetic NM Akinetic MIS Not Seen Not Seen AA Not Seen AL Akinetic AI Akinetic APEX Not Seen Tyson/IV: Voiding Method Urinal IV Catheter Type [Right Peripheral IV Forearm] IV Catheter Type [Right INT / Saline Lock Antecubital] IV Catheter Type [Left Upper INT / Saline Lock arm] IV Catheter Type [Left INT / Saline Lock Antecubital] Active Medications - Current Medications Current Medications: Generic Name Dose Route Start Last Admin Trade Name Freq PRN Reason Stop Dose Admin Acetaminophen/Hydrocodone Bitart 2 each 03/22/20 17:18 03/26/20 09:23 [place] 5/325 PO 2 each Q4H PRN Administration Pain, Moderate (4-6) Arformoterol Tartrate 15 mcg 03/19/20 20:00 03/25/20 22:14 Brovana Nebu IH 15 mcg Q12HRT LOI Administration Atorvastatin Calcium 40 mg 03/19/20 22:00 03/25/20 21:16 Lipitor PO 40 mg QHS LOI Administration Budesonide 0.5 mg 03/19/20 20:00 03/25/20 22:14 Pulmicort IH 0.5 mg Q12HRT LOI Administration Clopidogrel Bisulfate 75 mg 03/19/20 10:00 03/26/20 09:25 Plavix PO 75 mg QDAY LOI Administration Dextrose 50 ml 03/18/20 22:21 D50w (25gm) Syringe IV Q30MIN PRN Hypoglycemia Protocol Diphenhydramine HCl 25 mg 03/19/20 12:44 Benadryl IV Q4H PRN Itching Enoxaparin Sodium 120 mg 03/25/20 22:00 03/26/20 09:26 Enoxaparin 1 mg/kg (120 mg) 120 mg SUB-Q Administration Q12HR LOI Hydromorphone HCl 0.5 mg 03/25/20 13:48 Dilaudid IV Q10MIN PRN Pain , Severe (7-10) Hydromorphone/Sodium Chloride 0 mg 03/19/20 13:00 03/25/20 06:08 Dilaudid Fuel Retrofitting Technician 6mg/30ml IV 1 cart DIRECT LOI Administration Protocol Sodium Chloride 1,000 mls @ 75 mls/hr 03/25/20 13:15 03/26/20 02:33 Nacl 0.9% 1000 Ml IV 75 mls/hr DIRECT LOI Administration Insulin Glargine 25 units 03/22/20 22:00 03/25/20 21:16 Lantus SUB-Q 25 units QHS LOI Administration Insulin Human Lispro 0 unit 03/20/20 16:30 03/26/20 09:24 Humalog SUB-Q 3 unit ACHS LOI Administration Protocol Lisinopril 5 mg 03/21/20 10:00 03/26/20 09:26 Zestril PO 5 mg QDAY LOI Administration Magnesium Hydroxide 30 ml 03/18/20 22:21 Milk Of Magnesia PO Q4H PRN Constipation Metoprolol Tartrate 50 mg 03/19/20 22:00 03/26/20 09:25 Metoprolol PO 50 mg BID LOI Administration Naloxone HCl 0.1 mg 03/19/20 12:44 Naloxone IV Q2MIN PRN Res Rate </= 8 or 02 SAT < 92% Ondansetron HCl 4 mg 03/18/20 22:21 Zofran IV Q8H PRN Nausea And Vomiting Pantoprazole Sodium 40 mg 03/20/20 10:00 03/26/20 09:25 Protonix PO 40 mg BID LOI Administration Pregabalin 150 mg 03/22/20 22:00 03/26/20 09:25 Pregabalin PO 150 mg BID LOI Administration Sodium Chloride 10 ml 03/19/20 10:00 03/26/20 09:26 Sodium Chloride Flush Syringe 10 Ml IV 10 ml BID LOI Administration Sodium Chloride 10 ml 03/18/20 22:21 03/22/20 19:52 Sodium Chloride Flush Syringe 10 Ml IV 10 ml PRN PRN Administration LINE FLUSH Nutrition/Malnutrition Assess - Dietary Evaluation Nutrition/Malnutrition Findings: Nutrition Notes Start: 03/19/20 11:5 9 Freq: Status: Active Protocol: Document 03/25/20 13:58 DAYO (Rec: 03/25/20 14:03 DAYO [email or web address]) Nutrition Notes Need for Assessment generated from: LOS Initial or Follow up Brief Note Current Diet NPO Height 6 ft Weight 123.2 kg Olive Body Weight (kg) 80.90 BMI 36.8 Weight Status Obese Subjective/Other Information Pt screened for LOS. Unable to reach pt via phone at 13:09 . Pt NPO for a procedure today; has been receiving a Cardiac/Consistent CHO diet. No PO intakes documented since admission. Is patient on ventilator? No Is Patient Ambulatory and/or Out of Bed Yes REE-(Wilson-St. Jeor-ambulatory/OOB) [ 2736.500 [id number]] Kcal/Kg value to use for calculation 18 Approximate Energy Requirements Using 2218 kcal/Kg Calculation Used for Recommendations Kcal/kg Additional Notes Pro needs 0.8-1g/kg adjBW: 82- 102g/day Fluid needs 1ml/kcal Nutrition Intervention Follow-Up By: 03/28/20 Additional Comments F/U: intakes
[2020-03-26] MEDS ORDERED: SODIUM POLYSTYRENE 15 GM/60 ML ORAL LIQD PR NR (09:56)
--- NOTE | 2020-03-26 10:08 | Progress Note ---
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 Patient Obese. Complaining pain in left leg. Patient presently on CPAP FIO2 28% and O2 saturation running 98%. Chest xray obtained 03/19/20 reported no acute abnormalities. ABG FIO2 35%. ABG pH 7.405 pH Units (7.350-7.450) 03/20/20 04:35 ABG pCO2 40.3 mm Hg 03/20/20 04:35 ABG pO2 68.3 mm Hg (80.0-90.0) L 03/20/20 04:35 ABG O2 Saturation 94.3 % (95.0-99.0) L 03/20/20 04:35 Patient afebrile and has mild leukocytosis. Patient given dose of cefazolin. Patient is on Apixaban. Patient is on Protonix for GI prophylaxis. Recommend incentive spirometry. 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 (2) Cardiomyopathy Current Visit: Yes Status: Acute Plan to address problem: Management as per primary care and cardiology. (3) Elevated troponin Current Visit: Yes Status: Acute Plan to address problem: Management as per primary care and cardiology. (4) Hx of two vessel coronary artery bypass graft Current Visit: Yes Status: Acute Plan to address problem: Management as per cardiology. (5) NSTEMI (non-ST elevated myocardial infarction) Current Visit: Yes Status: Acute Plan to address problem: Management as per cardiology. (6) HTN (hypertension) Current Visit: Yes Status: Chronic Plan to address problem: Management as per primary care. (7) History of CVA (cerebrovascular accident) Current Visit: Yes Status: Chronic Plan to address problem: management as per primary care. (8) Smoker Current Visit: Yes Status: Chronic Plan to address problem: Counseled to stop smoking. Subjective Date of service: 03/26/20 Principal diagnosis: Acute limb ischemia; STARR; COPD; Ac hypoxemic resp failure; DM II; NSTEMI Interval history: Patient under gone below th knee amputation of left lower leg for arterial occusion. Patient Obese. Complaining pain in left leg. Patient presently on CPAP FIO2 28% and O2 saturation running 98%. Chest xray obtained 03/19/20 reported no acute abnormalities. ABG FIO2 35%. ABG pH 7.405 pH Units (7.350-7.450) 03/20/20 04:35 ABG pCO2 40.3 mm Hg 03/20/20 04:35 ABG pO2 68.3 mm Hg (80.0-90.0) L 03/20/20 04:35 ABG O2 Saturation 94.3 % (95.0-99.0) L 03/20/20 04:35 Patient afebrile and has mild leukocytosis. Patient given dose of cefazolin. Patient is on Apixaban. Patient is on Protonix for GI prophylaxis. Recommend incentive spirometry. Objective Vital Signs - 12hr 03/25/20 03/25/20 03/25/20 22:08 22:10 22:15 Temperature Pulse Rate Pulse Rate [ 98 H Anterior Bilateral Throughout] Respiratory 20 20 Rate Respiratory 19 Rate [Anterior Bilateral Throughout] Blood Pressure O2 Sat by Pulse Oximetry 03/25/20 03/25/20 03/26/20 22:29 23:48 00:02 Temperature 97.8 F Pulse Rate 94 H 94 H Pulse Rate [ Anterior Bilateral Throughout] Respiratory 20 Rate Respiratory Rate [Anterior Bilateral Throughout] Blood Pressure 133/81 133/81 O2 Sat by Pulse 98 99 Oximetry 03/26/20 03/26/20 03/26/20 00:08 01:00 03:59 Temperature 98.6 F Pulse Rate 90 91 H Pulse Rate [ Anterior Bilateral Throughout] Respiratory 20 20 Rate Respiratory Rate [Anterior Bilateral Throughout] Blood Pressure 115/78 O2 Sat by Pulse 97 Oximetry 03/26/20 03/26/20 03/26/20 04:41 07:26 09:25 Temperature 97.5 F L Pulse Rate 95 H Pulse Rate [ Anterior Bilateral Throughout] Respiratory 20 18 Rate Respiratory Rate [Anterior Bilateral Throughout] Blood Pressure 117/72 117/76 O2 Sat by Pulse 96 Oximetry 03/26/20 09:26 Temperature Pulse Rate Pulse Rate [ Anterior Bilateral Throughout] Respiratory Rate Respiratory Rate [Anterior Bilateral Throughout] Blood Pressure 117/76 O2 Sat by Pulse Oximetry Constitutional: alert, appears uncomfortable, other ( on CPAP.) Eyes: non-icteric ENT: oropharynx moist Neck: supple, no lymphadenopathy, no JVD Effort: mildly labored Ascultation: Bilateral: diminished breath sounds Percussion: Bilateral: not dull Cardiovascular: regular rate and rhythm Gastrointestinal: normoactive bowel sounds, soft, non-tender, non-distended (protuberant) Integumentary: rash, other (cool left foot anterior plantar surface) Extremities: edema, other (BKA left lower leg.) Neurologic: normal mental status, non-focal exam, pupils equal and round, motor strength normal and (limited by pasin in left leg) Psychiatric: mood appropriate, other (Patient sleepy.) CBC and BMP: 03/26/20 06:59 03/26/20 13:58 ABG, PT/INR, D-dimer: ABG ABG pH 7.405 pH Units (7.350-7.450) 03/20/20 04:35 ABG pCO2 40.3 mm Hg 03/20/20 04:35 ABG pO2 68.3 mm Hg (80.0-90.0) L 03/20/20 04:35 ABG O2 Saturation 94.3 % (95.0-99.0) L 03/20/20 04:35 PT/INR, D-dimer PT 12.7 Sec. (12.2-14.9) 03/19/20 08:08 INR 0.94 (0.87-1.13) 03/19/20 08:08 Abnormal lab findings: Abnormal Labs 03/18/20 03/18/20 03/18/20 18:28 18:28 20:56 WBC 12.3 H RBC Hgb Hct Lymph % (Auto) 11.0 L [place] % (Auto) 9.8 H [place] # 1.2 H Seg Neutrophils % 78.4 H Seg Neutrophils # 9.6 H Heparin Anti-Xa Level ABG pO2 ABG HCO3 ABG O2 Saturation ABG Base Excess ABG Hemoglobin Oxyhemoglobin Sodium 132 L Potassium Chloride 91.9 L Carbon Dioxide 20 L BUN Creatinine 1.4 H Glucose 406 H POC Glucose Hemoglobin A1c Calcium Total Creatine Kinase 2727 H 2492 H CK-MB (CK-2) 135.9 H 107.2 H CK-MB (CK-2) Rel Index 4.3 H Troponin T 5.110 H* 3.960 H* D Triglycerides 188 H LDL Cholesterol Direct 141 H 03/18/20 03/19/20 03/19/20 22:21 01:57 08:08 WBC RBC Hgb Hct Lymph % (Auto) [place] % (Auto) [place] # Seg Neutrophils % Seg Neutrophils # Heparin Anti-Xa Level ABG pO2 ABG HCO3 ABG O2 Saturation ABG Base Excess ABG Hemoglobin Oxyhemoglobin Sodium Potassium Chloride Carbon Dioxide BUN Creatinine Glucose POC Glucose 317 H Hemoglobin A1c 11.0 H Calcium Total Creatine Kinase 7255 H CK-MB (CK-2) 79.3 H CK-MB (CK-2) Rel Index Troponin T 5.540 H* D Triglycerides LDL Cholesterol Direct 03/19/20 03/19/20 03/19/20 08:08 08:08 08:08 WBC 13.3 H RBC Hgb Hct Lymph % (Auto) 10.7 L [place] % (Auto) 8.5 H [place] # 1.1 H Seg Neutrophils % 80.0 H Seg Neutrophils # 10.6 H Heparin Anti-Xa Level 0.10 L ABG pO2 ABG HCO3 ABG O2 Saturation ABG Base Excess ABG Hemoglobin Oxyhemoglobin Sodium 133 L Potassium 5.1 H Chloride Carbon Dioxide 17 L BUN 23 H Creatinine Glucose 313 H POC Glucose Hemoglobin A1c Calcium Total Creatine Kinase CK-MB (CK-2) CK-MB (CK-2) Rel Index Troponin T Triglycerides LDL Cholesterol Direct 03/19/20 03/19/20 03/19/20 15:40 18:23 21:32 WBC RBC Hgb Hct Lymph % (Auto) [place] % (Auto) [place] # Seg Neutrophils % Seg Neutrophils # Heparin Anti-Xa Level < 0.10 L ABG pO2 ABG HCO3 18.3 L ABG O2 Saturation ABG Base Excess -5.4 L ABG Hemoglobin 12.2 L Oxyhemoglobin 94.6 L Sodium Potassium Chloride Carbon Dioxide BUN Creatinine Glucose POC Glucose 348 H Hemoglobin A1c Calcium Total Creatine Kinase CK-MB (CK-2) CK-MB (CK-2) Rel Index Troponin T Triglycerides LDL Cholesterol Direct 03/20/20 03/20/20 03/20/20 04:35 05:12 05:12 WBC 11.1 H RBC 3.63 L Hgb 11.0 L Hct 32.7 L D Lymph % (Auto) [place] % (Auto) 8.1 H [place] # 0.9 H Seg Neutrophils % 75.8 H Seg Neutrophils # 8.4 H Heparin Anti-Xa Level 0.28 L ABG pO2 68.3 L ABG HCO3 ABG O2 Saturation 94.3 L ABG Base Excess ABG Hemoglobin 7.1 L Oxyhemoglobin 92.3 L Sodium Potassium Chloride Carbon Dioxide BUN Creatinine Glucose POC Glucose Hemoglobin A1c Calcium Total Creatine Kinase CK-MB (CK-2) CK-MB (CK-2) Rel Index Troponin T Triglycerides LDL Cholesterol Direct 03/20/20 03/20/20 03/20/20 05:12 07:49 12:15 WBC RBC Hgb Hct Lymph % (Auto) [place] % (Auto) [place] # Seg Neutrophils % Seg Neutrophils # Heparin Anti-Xa Level ABG pO2 ABG HCO3 ABG O2 Saturation ABG Base Excess ABG Hemoglobin Oxyhemoglobin Sodium 134 L Potassium Chloride Carbon Dioxide 21 L BUN 23 H Creatinine Glucose 275 H POC Glucose 294 H 357 H Hemoglobin A1c Calcium Total Creatine Kinase CK-MB (CK-2) CK-MB (CK-2) Rel Index Troponin T 3.200 H* D Triglycerides LDL Cholesterol Direct 03/20/20 03/20/20 03/21/20 17:16 22:08 04:44 WBC RBC Hgb Hct Lymph % (Auto) [place] % (Auto) [place] # Seg Neutrophils % Seg Neutrophils # Heparin Anti-Xa Level ABG pO2 ABG HCO3 ABG O2 Saturation ABG Base Excess ABG Hemoglobin Oxyhemoglobin Sodium 136 L Potassium Chloride Carbon Dioxide 18 L BUN 26 H Creatinine Glucose 266 H POC Glucose 327 H 292 H Hemoglobin A1c Calcium 8.1 L Total Creatine Kinase CK-MB (CK-2) CK-MB (CK-2) Rel Index Troponin T Triglycerides LDL Cholesterol Direct 03/21/20 03/21/20 03/21/20 07:50 12:25 15:53 WBC RBC Hgb Hct Lymph % (Auto) [place] % (Auto) [place] # Seg Neutrophils % Seg Neutrophils # Heparin Anti-Xa Level ABG pO2 ABG HCO3 ABG O2 Saturation ABG Base Excess ABG Hemoglobin Oxyhemoglobin Sodium Potassium Chloride Carbon Dioxide BUN Creatinine Glucose POC Glucose 271 H 314 H 436 H Hemoglobin A1c Calcium Total Creatine Kinase CK-MB (CK-2) CK-MB (CK-2) Rel Index Troponin T Triglycerides LDL Cholesterol Direct 03/21/20 03/21/20 03/22/20 17:44 21:55 04:33 WBC RBC Hgb 10.0 L Hct 29.4 L Lymph % (Auto) [place] % (Auto) [place] # Seg Neutrophils % Seg Neutrophils # Heparin Anti-Xa Level ABG pO2 ABG HCO3 ABG O2 Saturation ABG Base Excess ABG Hemoglobin Oxyhemoglobin Sodium Potassium Chloride Carbon Dioxide BUN Creatinine Glucose POC Glucose 362 H 329 H Hemoglobin A1c Calcium Total Creatine Kinase CK-MB (CK-2) CK-MB (CK-2) Rel Index Troponin T Triglycerides LDL Cholesterol Direct 03/22/20 03/22/20 03/22/20 08:57 14:12 19:57 WBC RBC Hgb Hct Lymph % (Auto) [place] % (Auto) [place] # Seg Neutrophils % Seg Neutrophils # Heparin Anti-Xa Level ABG pO2 ABG HCO3 ABG O2 Saturation ABG Base Excess ABG Hemoglobin Oxyhemoglobin Sodium Potassium Chloride Carbon Dioxide BUN Creatinine Glucose POC Glucose 284 H 319 H 356 H Hemoglobin A1c Calcium Total Creatine Kinase CK-MB (CK-2) CK-MB (CK-2) Rel Index Troponin T Triglycerides LDL Cholesterol Direct 03/22/20 03/23/20 03/23/20 21:44 08:18 12:46 WBC RBC Hgb Hct Lymph % (Auto) [place] % (Auto) [place] # Seg Neutrophils % Seg Neutrophils # Heparin Anti-Xa Level ABG pO2 ABG HCO3 ABG O2 Saturation ABG Base Excess ABG Hemoglobin Oxyhemoglobin Sodium Potassium Chloride Carbon Dioxide BUN Creatinine Glucose POC Glucose 336 H 215 H 262 H Hemoglobin A1c Calcium Total Creatine Kinase CK-MB (CK-2) CK-MB (CK-2) Rel Index Troponin T Triglycerides LDL Cholesterol Direct 03/23/20 03/23/20 03/24/20 15:56 22:05 02:35 WBC RBC Hgb 9.0 L Hct 25.8 L Lymph % (Auto) [place] % (Auto) [place] # Seg Neutrophils % Seg Neutrophils # Heparin Anti-Xa Level ABG pO2 ABG HCO3 ABG O2 Saturation ABG Base Excess ABG Hemoglobin Oxyhemoglobin Sodium Potassium Chloride Carbon Dioxide BUN Creatinine Glucose POC Glucose 246 H 322 H Hemoglobin A1c Calcium Total Creatine Kinase CK-MB (CK-2) CK-MB (CK-2) Rel Index Troponin T Triglycerides LDL Cholesterol Direct 03/24/20 03/24/20 03/24/20 07:38 11:45 16:02 WBC RBC Hgb Hct Lymph % (Auto) [place] % (Auto) [place] # Seg Neutrophils % Seg Neutrophils # Heparin Anti-Xa Level ABG pO2 ABG HCO3 ABG O2 Saturation ABG Base Excess ABG Hemoglobin Oxyhemoglobin Sodium Potassium Chloride Carbon Dioxide BUN Creatinine Glucose POC Glucose 289 H 257 H 150 H Hemoglobin A1c Calcium Total Creatine Kinase CK-MB (CK-2) CK-MB (CK-2) Rel Index Troponin T Triglycerides LDL Cholesterol Direct 03/24/20 03/25/20 03/25/20 21:24 04:06 07:39 WBC RBC Hgb Hct Lymph % (Auto) [place] % (Auto) [place] # Seg Neutrophils % Seg Neutrophils # Heparin Anti-Xa Level 0.10 L ABG pO2 ABG HCO3 ABG O2 Saturation ABG Base Excess ABG Hemoglobin Oxyhemoglobin Sodium Potassium Chloride Carbon Dioxide BUN Creatinine Glucose POC Glucose 228 H 332 H Hemoglobin A1c Calcium Total Creatine Kinase CK-MB (CK-2) CK-MB (CK-2) Rel Index Troponin T Triglycerides LDL Cholesterol Direct 03/25/20 03/25/20 03/25/20 08:13 09:30 11:59 WBC 13.1 H RBC 2.82 L Hgb 8.5 L Hct 26.1 L Lymph % (Auto) [place] % (Auto) [place] # Seg Neutrophils % Seg Neutrophils # Heparin Anti-Xa Level ABG pO2 ABG HCO3 ABG O2 Saturation ABG Base Excess ABG Hemoglobin Oxyhemoglobin Sodium 131 L Potassium 5.3 H Chloride Carbon Dioxide 20 L BUN 39 H Creatinine 1.4 H Glucose 313 H POC Glucose 273 H Hemoglobin A1c Calcium 8.1 L Total Creatine Kinase CK-MB (CK-2) CK-MB (CK-2) Rel Index Troponin T Triglycerides LDL Cholesterol Direct 03/25/20 03/25/20 03/25/20 13:54 15:58 20:45 WBC RBC Hgb Hct Lymph % (Auto) [place] % (Auto) [place] # Seg Neutrophils % Seg Neutrophils # Heparin Anti-Xa Level ABG pO2 ABG HCO3 ABG O2 Saturation ABG Base Excess ABG Hemoglobin Oxyhemoglobin Sodium Potassium Chloride Carbon Dioxide BUN Creatinine Glucose POC Glucose 246 H 235 H 178 H Hemoglobin A1c Calcium Total Creatine Kinase CK-MB (CK-2) CK-MB (CK-2) Rel Index Troponin T Triglycerides LDL Cholesterol Direct 03/26/20 03/26/20 03/26/20 05:15 06:59 06:59 WBC 17.4 H 15.6 H RBC 3.05 L 3.05 L Hgb 9.1 L 9.2 L Hct 28.2 L 27.9 L Lymph % (Auto) 8.9 L 8.9 L [place] % (Auto) [place] # 1.0 H Seg Neutrophils % 84.4 H 84.8 H Seg Neutrophils # 14.7 H 13.2 H Heparin Anti-Xa Level ABG pO2 ABG HCO3 ABG O2 Saturation ABG Base Excess ABG Hemoglobin Oxyhemoglobin Sodium 131 L Potassium 5.8 H Chloride Carbon Dioxide 16 L BUN 42 H Creatinine 1.4 H Glucose 163 H POC Glucose Hemoglobin A1c Calcium 8.0 L Total Creatine Kinase CK-MB (CK-2) CK-MB (CK-2) Rel Index Troponin T Triglycerides LDL Cholesterol Direct 03/26/20 07:43 WBC RBC Hgb Hct Lymph % (Auto) [place] % (Auto) [place] # Seg Neutrophils % Seg Neutrophils # Heparin Anti-Xa Level ABG pO2 ABG HCO3 ABG O2 Saturation ABG Base Excess ABG Hemoglobin Oxyhemoglobin Sodium Potassium Chloride Carbon Dioxide BUN Creatinine Glucose POC Glucose 170 H Hemoglobin A1c Calcium Total Creatine Kinase CK-MB (CK-2) CK-MB (CK-2) Rel Index Troponin T Triglycerides LDL Cholesterol Direct Allied health notes reviewed: nursing
--- NOTE | 2020-03-26 10:09 | Progress Note ---
Assessment and Plan S/p left BKA yesterday. tte reviewed - EF 30-35%, LV mildly dilated, mid inferolateral, mid inferior, apical lateral and apical inferior wall segments are akinetic. No current clinical evidence of acutely decompensated HF. ECG is noted to be abnormal although not c/w STEMI. Ozzie elevation appears c/w NSTEMI type II, Ozzie trending downwards, pt denies any occurrence of chest pain or other cardiac complaints. From cardiac perspective, cont ASA, plavix, lopressor and statin. Consider addition of ACEI/ARB in setting of CMP if BPs permit. Will plan for stress test once medically stabilized - could be accomplished as OP. Currently stable cardiac status. Nothing further to add from cardiac perspective at this time. Will follow on as needed basis. Recommend pt follow up in our office with Dr. Treviño within 2 weeks of discharge ([phone]). The patient has been seen in conjunction with Dr. Gil Jimenes who agrees with the assessment and plan of care. - Patient Problems (1) PAD (peripheral artery disease) Current Visit: Yes Status: Chronic (2) Abnormal ECG Current Visit: Yes Status: Acute (3) NSTEMI (non-ST elevated myocardial infarction) Current Visit: Yes Status: Acute (4) CAD (coronary artery disease) Current Visit: Yes Status: Chronic (5) History of coronary artery bypass graft Current Visit: Yes Status: Chronic (6) HTN (hypertension) Current Visit: Yes Status: Chronic (7) History of CVA (cerebrovascular accident) Current Visit: Yes Status: Chronic (8) Smoker Current Visit: Yes Status: Chronic (9) Cardiomyopathy Current Visit: Yes Status: Acute Subjective Date of service: 03/26/20 Principal diagnosis: Acute limb ischemia; STARR; COPD; Ac hypoxemic resp failure; DM II; NSTEMI Interval history: pt resting in bed, no current cardiac complaints. refusing to wear telemetry. Objective Last Vital Signs Temp 97.5 F L 03/26/20 07:26 Pulse 95 H 03/26/20 07:26 Resp 18 03/26/20 07:26 BP 117/76 03/26/20 09:26 Pulse Ox 96 03/26/20 07:26 - Physical Examination General: No Apparent Distress HEENT: Positive: PERRL, Normocephaly, Mucus Membranes Moist Neck: Positive: neck supple, trachea midline Cardiac: Positive: S1/S2 Lungs: Positive: Decreased Breath Sounds Neuro: Positive: Grossly Intact Abdomen: Negative: Tender Skin: Negative: Rash Musculoskeletal: other (LLE pain, numbness, pale) Extremities: Present: Other (LLE pain, numbness, pale) - Labs and Meds CBC 03/25/20 03/26/20 03/26/20 Range/Units 09:30 05:15 06:59 WBC 13.1 H 17.4 H 15.6 H (4.5-11.0) K/mm3 RBC 2.82 L 3.05 L 3.05 L (3.65-5.03) M/mm3 Hgb 8.5 L 9.1 L 9.2 L (11.8-15.2) gm/dl Hct 26.1 L 28.2 L 27.9 L (35.5-45.6) % Plt Count 347 340 363 (140-440) K/mm3 Lymph # 1.6 1.4 (1.2-5.4) K/mm3 [place] # 1.0 H 0.8 (0.0-0.8) K/mm3 Eos # 0.1 0.1 (0.0-0.4) K/mm3 Baso # 0.1 0.1 (0.0-0.1) K/mm3 Comprehensive Metabolic Panel 03/26/20 Range/Units 06:59 Sodium 131 L (137-145) mmol/L Potassium 5.8 H (3.6-5.0) mmol/L Chloride 100.3 (98-107) mmol/L Carbon Dioxide 16 L (22-30) mmol/L BUN 42 H (9-20) mg/dL Creatinine 1.4 H (0.8-1.3) mg/dL Glucose 163 H (75-100) mg/dL Calcium 8.0 L (8.4-10.2) mg/dL - Imaging and Cardiology EKG: report reviewed, image reviewed Echo: pending, report reviewed (tte done 12/2014 showed EF 55-60%, no significant abnormalities. ) - EKG Sinus rhythms and dysrhythmias: sinus rhythm Repolarization changes or abnormalities: nonspecific abnormality, ST segment, and/or T wave - Allied health notes Allied health notes reviewed: nursing
[2020-03-26] MEDS: BUDESONIDE 0.5 MG/2 ML NEBU IH SCH ×2 (10:12→21:40)
[2020-03-26] MEDS: ARFORMOTEROL 15 MCG/2 ML NEBU IH SCH ×2 (10:12→21:41)
[2020-03-26] MEDS ORDERED: CALCIUM GLUCONATE 1,000 MG in SODIUM CHLORIDE 0.9% 100 ML IV NR (10:30)
[2020-03-26] MEDS: HYDROmorphone/NS 6 MG/30 ML PCA INJ IV SCH (10:51)
--- NOTE | 2020-03-26 12:04 | Progress Note ---
Assessment and Plan POD#1 s/p Left BKA Hemoglobin stable Hyperkalemia with metabolic acidosis and elevated BUN. Creatinine 1.4 which was the same as admission. May need renal consult. Recheck 1400 to reevaluate hyperkalemia. Leukocytosis may be related to stress of surgery however given prolonged bed rest, history of COPD, and poor seal on CPAP will get CXR to r/o pulmonary source. PT/OT Pulmonary toilet OOB to chair with assistance Subjective Date of service: 03/26/20 Principal diagnosis: Acute limb ischemia; STARR; COPD; Ac hypoxemic resp failure; DM II; NSTEMI Interval history: Patient complaining of left stump pain however he was asleep when I entered the room. No additional complaints at this time. Objective - Constitutional Vitals: Vital Signs - 12hr 03/26/20 03/26/20 03/26/20 00:02 00:08 01:00 Temperature Pulse Rate 94 H 90 Pulse Rate [ Anterior Bilateral Throughout] Respiratory 20 Rate Respiratory Rate [Anterior Bilateral Throughout] Blood Pressure 133/81 O2 Sat by Pulse Oximetry 03/26/20 03/26/20 03/26/20 03:59 04:41 07:26 Temperature 98.6 F 97.5 F L Pulse Rate 91 H 95 H Pulse Rate [ Anterior Bilateral Throughout] Respiratory 20 20 18 Rate Respiratory Rate [Anterior Bilateral Throughout] Blood Pressure 115/78 117/72 O2 Sat by Pulse 97 96 Oximetry 03/26/20 03/26/20 03/26/20 09:25 09:26 10:00 Temperature Pulse Rate Pulse Rate [ Anterior Bilateral Throughout] Respiratory Rate Respiratory Rate [Anterior Bilateral Throughout] Blood Pressure 117/76 117/76 O2 Sat by Pulse 97 Oximetry 03/26/20 10:03 Temperature Pulse Rate Pulse Rate [ 94 H Anterior Bilateral Throughout] Respiratory Rate Respiratory 18 Rate [Anterior Bilateral Throughout] Blood Pressure O2 Sat by Pulse Oximetry General appearance: Present: no acute distress - Respiratory Respiratory effort: normal, other (On CPAP however the patient does not have an adequate seal ) - Cardiovascular Rhythm: regular Extremities: abnormal (Left BKA stump dressing is C/D/I. Knee immobilizer in place) - Gastrointestinal General gastrointestinal: Present: soft, non-tender, non-distended Rectal Exam: deferred - Genitourinary Male genitourinary: normal - Labs CBC & Chem 7: 03/26/20 06:59 08/11/20 06:59 Labs: Abnormal lab results 03/25/20 03/25/20 03/25/20 Range/Units 11:59 13:54 15:58 WBC (4.5-11.0) K/mm3 RBC (3.65-5.03) M/mm3 Hgb (11.8-15.2) gm/dl Hct (35.5-45.6) % Lymph % (Auto) (13.4-35.0) % [place] # (0.0-0.8) K/mm3 Seg Neutrophils % (40.0-70.0) % Seg Neutrophils # (1.8-7.7) K/mm3 Sodium (137-145) mmol/L Potassium (3.6-5.0) mmol/L Carbon Dioxide (22-30) mmol/L BUN (9-20) mg/dL Creatinine (0.8-1.3) mg/dL Glucose (75-100) mg/dL POC Glucose 273 H 246 H 235 H (70-105) Calcium (8.4-10.2) mg/dL 03/25/20 03/26/20 03/26/20 Range/Units 20:45 05:15 06:59 WBC 17.4 H 15.6 H (4.5-11.0) K/mm3 RBC 3.05 L 3.05 L (3.65-5.03) M/mm3 Hgb 9.1 L 9.2 L (11.8-15.2) gm/dl Hct 28.2 L 27.9 L (35.5-45.6) % Lymph % (Auto) 8.9 L 8.9 L (13.4-35.0) % [place] # 1.0 H (0.0-0.8) K/mm3 Seg Neutrophils % 84.4 H 84.8 H (40.0-70.0) % Seg Neutrophils # 14.7 H 13.2 H (1.8-7.7) K/mm3 Sodium (137-145) mmol/L Potassium (3.6-5.0) mmol/L Carbon Dioxide (22-30) mmol/L BUN (9-20) mg/dL Creatinine (0.8-1.3) mg/dL Glucose (75-100) mg/dL POC Glucose 178 H (70-105) Calcium (8.4-10.2) mg/dL 03/26/20 03/26/20 03/26/20 Range/Units 06:59 07:43 11:56 WBC (4.5-11.0) K/mm3 RBC (3.65-5.03) M/mm3 Hgb (11.8-15.2) gm/dl Hct (35.5-45.6) % Lymph % (Auto) (13.4-35.0) % [place] # (0.0-0.8) K/mm3 Seg Neutrophils % (40.0-70.0) % Seg Neutrophils # (1.8-7.7) K/mm3 Sodium 131 L (137-145) mmol/L Potassium 5.8 H (3.6-5.0) mmol/L Carbon Dioxide 16 L (22-30) mmol/L BUN 42 H (9-20) mg/dL Creatinine 1.4 H (0.8-1.3) mg/dL Glucose 163 H (75-100) mg/dL POC Glucose 170 H 198 H (70-105) Calcium 8.0 L (8.4-10.2) mg/dL Medications & Allergies - Medications Allergies/Adverse Reactions: Allergies No Known Allergies Allergy (Unverified 03/18/20 15:17) Home Medications: Home Medications Medication Instructions Recorded Confirmed Last Taken Type AtorvaSTATin [Lipitor] 20 mg PO QHS 03/20/20 03/20/20 03/14/20 History Clopidogrel [Plavix] 75 mg PO QHS 03/20/20 03/20/20 03/14/20 History Famotidine [Acid Controller] 20 mg PO BID 03/20/20 03/20/20 03/14/20 History Fenofibrate Nanocrystallized 48 mg PO DAILY 03/20/20 03/20/20 03/14/20 History [Fenofibrate] Metoprolol Tartrate 25 mg PO BID 03/20/20 03/20/20 03/14/20 History Pregabalin [Lyrica] 150 mg PO BID 03/20/20 03/20/20 03/14/20 History amLODIPine [Norvasc] 5 mg PO DAILY 03/20/20 03/20/20 03/14/20 History glipiZIDE [Glucotrol] 10 mg PO BID 03/20/20 03/20/20 03/14/20 History hydroCHLOROthiazide [HCTZ] 25 mg PO QDAY 03/20/20 03/20/20 03/14/20 History lisinopriL [Zestril TAB] 40 mg PO QDAY 03/20/20 03/20/20 03/14/20 History Active Medications: Generic Name Dose Route Start Last Admin Trade Name Freq PRN Reason Stop Dose Admin Acetaminophen/Hydrocodone Bitart 2 each 03/22/20 17:18 03/26/20 09:23 [place] 5/325 PO 2 each Q4H PRN Administration Pain, Moderate (4-6) Arformoterol Tartrate 15 mcg 03/19/20 20:00 03/26/20 10:12 Brovana Nebu IH 15 mcg Q12HRT LOI Administration Atorvastatin Calcium 40 mg 03/19/20 22:00 03/25/20 21:16 Lipitor PO 40 mg QHS LOI Administration Budesonide 0.5 mg 03/19/20 20:00 03/26/20 10:12 Pulmicort IH 0.5 mg Q12HRT LOI Administration Clopidogrel Bisulfate 75 mg 03/19/20 10:00 03/26/20 09:25 Plavix PO 75 mg QDAY LOI Administration Dextrose 50 ml 03/18/20 22:21 D50w (25gm) Syringe IV Q30MIN PRN Hypoglycemia Protocol Diphenhydramine HCl 25 mg 03/19/20 12:44 Benadryl IV Q4H PRN Itching Enoxaparin Sodium 120 mg 03/25/20 22:00 03/26/20 09:26 Enoxaparin 1 mg/kg (120 mg) 120 mg SUB-Q Administration Q12HR LOI Hydromorphone HCl 0.5 mg 03/25/20 13:48 Dilaudid IV Q10MIN PRN Pain , Severe (7-10) Hydromorphone/Sodium Chloride 0 mg 03/19/20 13:00 03/26/20 10:51 Dilaudid X Ray Technician 6mg/30ml IV 6 cart DIRECT LOI Administration Protocol Sodium Chloride 1,000 mls @ 75 mls/hr 03/25/20 13:15 03/26/20 02:33 Nacl 0.9% 1000 Ml IV 75 mls/hr DIRECT LOI Administration Calcium Gluconate 1,000 mg/ 110 mls @ 660 mls/hr 03/26/20 10:30 Sodium Chloride IV 03/26/20 12:00 ONCE NR Insulin Glargine 25 units 03/22/20 22:00 03/25/20 21:16 Lantus SUB-Q 25 units QHS LOI Administration Insulin Human Lispro 0 unit 03/20/20 16:30 03/26/20 09:24 Humalog SUB-Q 3 unit ACHS LOI Administration Protocol Magnesium Hydroxide 30 ml 03/18/20 22:21 Milk Of Magnesia PO Q4H PRN Constipation Metoprolol Tartrate 50 mg 03/19/20 22:00 03/26/20 09:25 Metoprolol PO 50 mg BID LOI Administration Naloxone HCl 0.1 mg 03/19/20 12:44 Naloxone IV Q2MIN PRN Res Rate </= 8 or 02 SAT < 92% Ondansetron HCl 4 mg 03/18/20 22:21 Zofran IV Q8H PRN Nausea And Vomiting Pantoprazole Sodium 40 mg 03/20/20 10:00 03/26/20 09:25 Protonix PO 40 mg BID LOI Administration Pregabalin 150 mg 03/22/20 22:00 03/26/20 09:25 Pregabalin PO 150 mg BID LOI Administration Sodium Chloride 10 ml 03/19/20 10:00 03/26/20 09:26 Sodium Chloride Flush Syringe 10 Ml IV 10 ml BID LOI Administration Sodium Chloride 10 ml 03/18/20 22:21 03/22/20 19:52 Sodium Chloride Flush Syringe 10 Ml IV 10 ml PRN PRN Administration LINE FLUSH HEART Score - HEART Score Troponin: Troponin T 3.200 ng/mL (0.00-0.029) H* D 03/20/20 05:12
--- NOTE | 2020-03-26 14:18 | XRay Report ---
CHEST 1 VIEW INDICATION: Leukocytosis with prolonged bedrest and COPD. COMPARISON: 03/19/2020 FINDINGS: Support devices: None. Heart: Stable mild cardiomegaly. Previous sternotomy is noted. Lungs/Pleura: Moderate infiltrate has developed in the right lower lung. The left lung is generally c lear although the left lower lobe is poorly evaluated secondary to cardiomegaly. No significant pleur al effusion. No pneumothorax. Additional findings: None. IMPRESSION: Stable cardiomegaly. New right lower lobe infiltrate or congestive changes. Signer Name: Abisai Beard Jr, MD Signed: 03/26/2020 2:13 PM Workstation Name: [id number]
[2020-03-26 14:50] LABS: Calcium 8.2 mg/dL (8.4-10.2)
--- NOTE | 2020-03-26 15:18 | Event Note ---
Date: 03/26/20 Potassium level is 6, will correct with calcium gluconate 1 g IV stat, Kayexalate 30 g x 1 Insulin 5 units IV stat followed by D50 1 ampoule IV Recheck electrolytes and adjust as needed
[2020-03-26] MEDS ORDERED: DEXTROSE 50% IN WATER (25GM) 50 ML SYRINGE IV SCH (15:30)
[2020-03-26] MEDS ORDERED: SODIUM POLYSTYRENE 15 GM/60 ML ORAL LIQD PO ONE (16:00)
[2020-03-26] MEDS ORDERED: INSULIN REGULAR, HUMAN 100 UNIT/ML 3ML VIAL IV ONE (16:00)
[2020-03-26] MEDS ORDERED: CALCIUM CHLORIDE 1,000 MG in SODIUM CHLORIDE 0.9% 100 ML IV ONE (16:24)
[2020-03-26] MEDS: APIXABAN 5 MG TAB PO SCH (21:58)
[2020-03-26] MEDS: INSULIN GLARGINE 100 UNITS/ML SUB-Q SCH (22:02)
[2020-03-27] MEDS: SODIUM CHLORIDE 0.9% 1000 ML 1,000 ML IV SCH (05:36)
[2020-03-27] MEDS: BUDESONIDE 0.5 MG/2 ML NEBU IH SCH ×2 (07:58→21:03)
[2020-03-27] MEDS: ARFORMOTEROL 15 MCG/2 ML NEBU IH SCH ×2 (07:58→21:03)
[2020-03-27] MEDS: [UNRECOGNIZED DRUG - REMARK] SUB-Q SCH ×4 (08:39→22:14)
--- NOTE | 2020-03-27 09:54 | Progress Note ---
Assessment and Plan Assessment and plan: --Hyperkalemia; Current Visit: Yes Status: Acute calcium gluconate, Kayexalate, Follow a.m. labs --Acute left lower extremity ischemia Current Visit: Yes Status: Acute 03/19/2020 status post endovascular revascularization. 03/19/2020 s/p left lower extremity 4 compartment fasciotomy Management per vascular s/p left BKA on 03/25/2020 --Non-ST elevation [place] : Current Visit: Yes Status: Acute Patient has history of CABG patient denies any chest pain. Management per cardiology Per cardiology non-STEMI 2 Elevated troponins at the time of admission --Acute systolic CHF; EF 30-35%% Current Visit: Yes Status: Acute Beta-blockers, BIJAN inhibitor, diuretics Improved -- Hyperglycemia due to diabetes mellitus Current Visit: Yes Status: Acute Accu-Chek sliding scale coverage ADA diet Long-acting insulin as needed, P6l---65.0 --Nicotine dependence Current Visit: Yes Status: Acute Smoking cessation nicotine patch as needed --DVT prophylaxis Current Visit: Yes Status: Acute Patient currently on anticoagulation. -- Full code status Current Visit: Yes Status: Acute Patient is on heparin drip Discharge planning issues possible acute rehab placement/SNF placement Monitor closely and adjust management as needed Plan of care reviewed with the patient and his nurse History Interval history: I seen and examined the patient at the bedside this morning Patient's chart current medications overnight events reviewed Patient feels slightly better still complains of some pain in the amputated leg On FORENSIC EXAMINER pump Vital signs reviewed Hospitalist Physical - Constitutional Vitals: Temp Pulse Resp BP Pulse Ox 97.3 F L 94 H 16 93/60 95 03/27/20 03:48 03/27/20 07:59 03/27/20 07:59 03/27/20 03:48 03/27/20 08:00 General appearance: Present: no acute distress, well-nourished - EENT Eyes: Present: PERRL, EOM intact - Neck Neck: Present: supple, normal ROM - Respiratory Respiratory effort: normal Respiratory: bilateral: diminished, negative: rales, rhonchi, wheezing - Cardiovascular Rhythm: regular Heart Sounds: Present: S1 & S2 - Extremities Extremities: no ischemia, pulses intact, abnormal (Left BKA dressing in place) - Abdominal General gastrointestinal: soft, non-tender, non-distended, normal bowel sounds - Integumentary Integumentary: Present: clear, warm - Psychiatric Psychiatric: appropriate mood/affect, cooperative - Neurologic Neurologic: moves all extremities HEART Score - HEART Score Troponin: Troponin T 3.200 ng/mL (0.00-0.029) H* D 03/20/20 05:12 Results - Labs CBC & Chem 7: 03/27/20 14:39 03/27/20 14:39 Labs: Laboratory Last Values WBC 15.6 K/mm3 (4.5-11.0) H 03/26/20 06:59 RBC 3.05 M/mm3 (3.65-5.03) L 03/26/20 06:59 Hgb 9.2 gm/dl (11.8-15.2) L 03/26/20 06:59 Hct 27.9 % (35.5-45.6) L 03/26/20 06:59 MCV 91 fl (84-94) 03/26/20 06:59 MCH 30 pg (28-32) 03/26/20 06:59 MCHC 33 % (32-34) 03/26/20 06:59 RDW 13.9 % (13.2-15.2) 03/26/20 06:59 Plt Count 363 K/mm3 (140-440) 03/26/20 06:59 Lymph % (Auto) 8.9 % (13.4-35.0) L 03/26/20 06:59 [place] % (Auto) 5.0 % (0.0-7.3) 03/26/20 06:59 Eos % (Auto) 0.6 % (0.0-4.3) 03/26/20 06:59 Baso % (Auto) 0.7 % (0.0-1.8) 03/26/20 06:59 Lymph # 1.4 K/mm3 (1.2-5.4) 03/26/20 06:59 [place] # 0.8 K/mm3 (0.0-0.8) 03/26/20 06:59 Eos # 0.1 K/mm3 (0.0-0.4) 03/26/20 06:59 Baso # 0.1 K/mm3 (0.0-0.1) 03/26/20 06:59 Seg Neutrophils % 84.8 % (40.0-70.0) H 03/26/20 06:59 Seg Neutrophils # 13.2 K/mm3 (1.8-7.7) H 03/26/20 06:59 PT 12.7 Sec. (12.2-14.9) 03/19/20 08:08 INR 0.94 (0.87-1.13) 03/19/20 08:08 APTT 27.7 Sec. (24.2-36.6) 03/18/20 18:28 Heparin Anti-Xa Level 0.10 U.I./ml (0.3-0.7) L 03/25/20 04:06 ABG pH 7.405 pH Units (7.350-7.450) 03/20/20 04:35 ABG pCO2 40.3 mm Hg 03/20/20 04:35 ABG pO2 68.3 mm Hg (80.0-90.0) L 03/20/20 04:35 ABG HCO3 24.6 mmol/L (20.0-26.0) 03/20/20 04:35 ABG O2 Saturation 94.3 % (95.0-99.0) L 03/20/20 04:35 ABG O2 Content 9.3 (0.0-44) 03/20/20 04:35 ABG Base Excess -0.1 mmol/L (-2.0-3.0) 03/20/20 04:35 ABG Hemoglobin 7.1 gm/dl (14.0-18.0) L 03/20/20 04:35 ABG Carboxyhemoglobin 1.8 % (0.0-5.0) 03/20/20 04:35 ABG Methemoglobin 0.4 % (0.0-1.5) 03/20/20 04:35 Oxyhemoglobin 92.3 % (95.0-99.0) L 03/20/20 04:35 FiO2 35 % 03/20/20 04:35 Sodium 128 mmol/L (137-145) L 03/26/20 13:58 Potassium 6.0 mmol/L (3.6-5.0) H 03/26/20 13:58 Chloride 100.4 mmol/L (98-107) 03/26/20 13:58 Carbon Dioxide 15 mmol/L (22-30) L 03/26/20 13:58 Anion Gap 19 mmol/L 03/26/20 13:58 BUN 45 mg/dL (9-20) H 03/26/20 13:58 Creatinine 1.4 mg/dL (0.8-1.3) H 03/26/20 13:58 Estimated GFR 53 ml/min 03/26/20 13:58 BUN/Creatinine Ratio 32 % 03/26/20 13:58 Glucose 190 mg/dL (75-100) H 03/26/20 13:58 POC Glucose 233 (70-105) H 03/27/20 08:32 Hemoglobin A1c 11.0 % (4-6) H 03/18/20 22:21 Calcium 8.2 mg/dL (8.4-10.2) L 03/26/20 13:58 Total Creatine Kinase 7255 units/L (55-170) H 03/19/20 08:08 CK-MB (CK-2) 79.3 ng/mL (0.0-4.0) H 03/19/20 08:08 CK-MB (CK-2) Rel Index 1.0 (0-4) 03/19/20 08:08 Troponin T 3.200 ng/mL (0.00-0.029) H* D 03/20/20 05:12 Triglycerides 188 mg/dL (2-149) H 03/18/20 18:28 Cholesterol 199 mg/dL (50-199) 03/18/20 18:28 LDL Cholesterol Direct 141 mg/dL (50-130) H 03/18/20 18:28 HDL Cholesterol 47 mg/dL (40-59) 03/18/20 18:28 Cholesterol/HDL Ratio 4.23 % 03/18/20 18:28 Blood Type B POSITIVE 03/25/20 11:42 Antibody Screen Negative 03/25/20 11:42 - Diagnostic Impressions Diagnostic Impressions: Echocardiogram 03/19/20 12:49 Transthoracic Echocardiogram Indication: CAD and Abnormal EKG HR: 110 Conclusions *The study is technically limited due to patient body habitus. *The left ventricular chamber size is mildly dilated. *Global left ventricular systolic function is moderate to severely decreased. *The estimated ejection fraction is 30-35%. *The basal inferolateral, and basal inferior wall segments are normal. *The mid inferolateral, mid inferior, apical lateral, and apical inferior wall segments are akinetic. *The left atrial chamber size is normal. Findings Procedure Info: The study is technically limited due to patient body habitus. The study was technically limited due to the patient's inability to lay in the left lateral decubitus position. Left Ventricle: The left ventricular chamber size is mildly dilated. Global left ventricular systolic function is moderate to severely decreased. The estimated ejection fraction is 30-35%. The basal inferolateral, and basal inferior wall segments are normal. The mid inferolateral, mid inferior, apical lateral, and apical inferior wall segments are akinetic. Left Atrium: The left atrial chamber size is normal. Right Ventricle: The right ventricle is not well visualized. Right Atrium: The right atrium is not well visualized. The right atrial cavity size is normal. Aortic Valve: The aortic valve is trileaflet. Mitral Valve: The mitral valve leaflets are moderately thickened. There is mild mitral regurgitation. Tricuspid Valve: The tricuspid valve is not well visualized. There is trace tricuspid regurgitation. Pulmonic Valve: The pulmonic valve is not well visualized. Pericardium: There is no pericardial effusion. Aorta: The aorta appears normal. Venous: The venous system is not well visualized. Contrast: Definity was used to optimize study. Measurements Chambers 2D Name Value Normal Range IVSd (2D) 0.94 cm (0.6 - 1.1) LVPWd (2D) 0.94 cm (0.6 - 1.1) LVIDd (2D) 6.15 cm (3.7 - 5.6) LVIDs (2D) 5.2 cm (2 - 3.8) LV FS (2D) 15.5 % - EF Teichholz (2D) 32.08 % - Ao root diameter (2D) 2.77 cm (2 - 3.7) Volumes/Mass Name Value Normal Range LA ESV SP 4CH (A/L) 73.77 ml - LA ESV SP 2CH (A/L) 66.45 ml - LA ESV BP (A/L) 71.61 ml - LA ESV BP (A/L) index 30.6 ml/m2 - LA ESV SP 4CH (MOD) 72.55 ml - LA ESV SP 2CH (MOD) 65.34 ml - LA ESV BP (MOD) 70.27 ml - LA ESV BP (MOD) index 30.03 ml/m2 - Diastolic/Systolic Function Name Value Normal Range MV E-wave Vmax 0.85 m/sec - MV deceleration time 69.14 msec - MV A-wave Vmax 0.89 m/sec - MV E:A ratio 0.95 ratio - Aortic Valve Name Value Normal Range AV Vmax 0.96 m/sec - AV VTI 11.83 cm - AV peak gradient 3.68 mmHg - AV mean gradient 1.6 mmHg - LVOT diameter 2.19 cm - LVOT Vmax 0.86 m/sec - LVOT VTI 13.33 cm - LVOT peak gradient 2.96 mmHg - LVOT mean gradient 1.48 mmHg - SV LVOT 50.08 ml - DEYA (continuity Vmax) 3.37 cm2 - DEYA (continuity VTI) 4.23 cm2 - Ascending Ao 2.92 cm - Pulmonic Valve/Qp:Qs Name Value Normal Range PV Vmax 1.08 m/sec - PV VTI 15.88 cm - PV peak gradient 4.7 mmHg - PV mean gradient 2.18 mmHg - RVOT Vmax 0.82 m/sec - RVOT VTI 11.48 cm - RVOT peak gradient 2.67 mmHg - [place] BAS Not Seen BA Not Seen BAL Not Seen BAY Normal BI Normal BIS Not Seen MAS Not Seen MA Not Seen MAL Not Seen MIL Akinetic FL Akinetic MIS Not Seen Not Seen AA Not Seen AL Akinetic AI Akinetic APEX Not Seen Tyson/IV: Voiding Method Urinal IV Catheter Type [Right Peripheral IV Forearm] IV Catheter Type [Right INT / Saline Lock Antecubital] IV Catheter Type [Left Upper INT / Saline Lock arm] IV Catheter Type [Left INT / Saline Lock Antecubital] Active Medications - Current Medications Current Medications: Generic Name Dose Route Start Last Admin Trade Name Freq PRN Reason Stop Dose Admin Acetaminophen/Hydrocodone Bitart 2 each 03/22/20 17:18 03/26/20 22:03 [place] 5/325 PO 2 each Q4H PRN Administration Pain, Moderate (4-6) Apixaban 5 mg 03/26/20 22:00 03/26/20 21:58 Eliquis PO 5 mg Q12HR LOI Administration Protocol Arformoterol Tartrate 15 mcg 03/19/20 20:00 03/27/20 07:58 Brovana Nebu IH 15 mcg Q12HRT LOI Administration Atorvastatin Calcium 40 mg 03/19/20 22:00 03/26/20 21:58 Lipitor PO 40 mg QHS LOI Administration Budesonide 0.5 mg 03/19/20 20:00 03/27/20 07:58 Pulmicort IH 0.5 mg Q12HRT LOI Administration Clopidogrel Bisulfate 75 mg 03/19/20 10:00 03/26/20 09:25 Plavix PO 75 mg QDAY LOI Administration Dextrose 50 ml 03/18/20 22:21 D50w (25gm) Syringe IV Q30MIN PRN Hypoglycemia Protocol Diphenhydramine HCl 25 mg 03/19/20 12:44 Benadryl IV Q4H PRN Itching Hydromorphone HCl 0.5 mg 03/25/20 13:48 Dilaudid IV Q10MIN PRN Pain , Severe (7-10) Hydromorphone/Sodium Chloride 0 mg 03/19/20 13:00 03/26/20 10:51 Dilaudid Boiler Helper 6mg/30ml IV 6 cart DIRECT LOI Administration Protocol Sodium Chloride 1,000 mls @ 75 mls/hr 03/25/20 13:15 03/27/20 05:36 Nacl 0.9% 1000 Ml IV 75 mls/hr DIRECT LOI Administration Insulin Glargine 25 units 03/22/20 22:00 03/26/20 22:02 Lantus SUB-Q 25 units QHS LOI Administration Insulin Human Lispro 0 unit 03/20/20 16:30 03/27/20 08:39 Humalog SUB-Q 4 unit ACHS LOI Administration Protocol Magnesium Hydroxide 30 ml 03/18/20 22:21 Milk Of Magnesia PO Q4H PRN Constipation Metoprolol Tartrate 50 mg 03/19/20 22:00 03/26/20 21:59 Metoprolol PO 50 mg BID LOI Administration Naloxone HCl 0.1 mg 03/19/20 12:44 Naloxone IV Q2MIN PRN Res Rate </= 8 or 02 SAT < 92% Ondansetron HCl 4 mg 03/18/20 22:21 Zofran IV Q8H PRN Nausea And Vomiting Pantoprazole Sodium 40 mg 03/20/20 10:00 03/26/20 21:59 Protonix PO 40 mg BID LOI Administration Pregabalin 150 mg 03/22/20 22:00 03/26/20 21:59 Pregabalin PO 150 mg BID LOI Administration Sodium Chloride 10 ml 03/19/20 10:00 03/26/20 22:04 Sodium Chloride Flush Syringe 10 Ml IV 10 ml BID LOI Administration Sodium Chloride 10 ml 03/18/20 22:21 03/22/20 19:52 Sodium Chloride Flush Syringe 10 Ml IV 10 ml PRN PRN Administration LINE FLUSH Nutrition/Malnutrition Assess - Dietary Evaluation Nutrition/Malnutrition Findings: Nutrition Notes Start: 03/19/20 11:59 Freq: Status: Active Protocol: Document 03/25/20 13:58 DAYO (Rec: 03/25/20 14:03 DAYO [email or web address]) Nutrition Notes Need for Assessment generated from: LOS Initial or Follow up Brief Note Current Diet NPO Height 6 ft Weight 123.2 kg [place] Body Weight (kg) 80.90 BMI 36.8 Weight Status Obese Subjective/Other Information Pt screened for LOS. Unable to reach pt via phone at 13:09 . Pt NPO for a procedure today; has been receiving a Cardiac/Consistent CHO diet. No PO intakes documented since admission. Is patient on ventilator? No Is Patient Ambulatory and/or Out of Bed Yes REE-([place]-St. or-ambulatory/OOB) [ 2736.500 [id number]] Kcal/Kg value to use for calculation 18 Approximate Energy Requirements Using 2218 kcal/Kg Calculation Used for Recommendations Kcal/kg Additional Notes Pro needs 0.8-1g/kg adjBW: 82- 102g/day Fluid needs 1ml/kcal Nutrition Intervention Follow-Up By: 03/28/20 Additional Comments F/U: intakes
[2020-03-27] MEDS: CLOPIDOGREL 75 MG TAB PO SCH (11:13)
[2020-03-27] MEDS: PREGABALIN 75 MG CAP PO SCH ×2 (11:13→22:13)
[2020-03-27] MEDS: APIXABAN 5 MG TAB PO SCH ×2 (11:14→22:13)
[2020-03-27] MEDS: PANTOPRAZOLE 40 MG TAB PO SCH ×2 (11:14→22:13)
[2020-03-27] MEDS: METOPROLOL TARTRATE 50 MG TAB PO SCH ×2 (11:15→23:02)
[2020-03-27] MEDS: HYDROcodone/ACETAMINOPHEN 5-325 MG TAB PO PRN (11:18)
--- NOTE | 2020-03-27 13:34 | Progress Note ---
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 Patient Obese. Complaining pain in left leg. Patient presently on O2 3 litres and O2 saturation running 97%. hest xray 03/26/20 reported Stable cardiomegaly. New right lower lobe infiltrate or congestive changes. ABG FIO2 35%. ABG pH 7.405 pH Units (7.350-7.450) 03/20/20 04:35 ABG pCO2 40.3 mm Hg 03/20/20 04:35 ABG pO2 68.3 mm Hg (80.0-90.0) L 03/20/20 04:35 ABG O2 Saturation 94.3 % (95.0-99.0) L 03/20/20 04:35 Patient afebrile and has mild leukocytosis Patient is on Apixaban. Patient is on Protonix for GI prophylaxis. Recommend incentive spirometry. Recommend to start on antibiotic like Zosyn. 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 (2) Cardiomyopathy Current Visit: Yes Status: Acute Plan to address problem: Management as per primary care and cardiology. (3) Elevated troponin Current Visit: Yes Status: Acute Plan to address problem: Management as per primary care and cardiology. (4) Hx of two vessel coronary artery bypass graft Current Visit: Yes Status: Acute Plan to address problem: Management as per cardiology. (5) NSTEMI (non-ST elevated myocardial infarction) Current Visit: Yes Status: Acute Plan to address problem: Management as per cardiology. (6) HTN (hypertension) Current Visit: Yes Status: Chronic Plan to address problem: Management as per primary care. (7) History of CVA (cerebrovascular accident) Current Visit: Yes Status: Chronic Plan to address problem: management as per primary care. (8) Smoker Current Visit: Yes Status: Chronic Plan to address problem: Counseled to stop smoking. 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 Patient Obese. Complaining pain in left leg. Patient presently on O2 3 litres and O2 saturation running 97%. hest xray 03/26/20 reported Stable cardiomegaly. New right lower lobe infiltrate or congestive changes. ABG FIO2 35%. ABG pH 7.405 pH Units (7.350-7.450) 03/20/20 04:35 ABG pCO2 40.3 mm Hg 03/20/20 04:35 ABG pO2 68.3 mm Hg (80.0-90.0) L 03/20/20 04:35 ABG O2 Saturation 94.3 % (95.0-99.0) L 03/20/20 04:35 Patient afebrile and has mild leukocytosis Patient is on Apixaban. Patient is on Protonix for GI prophylaxis. Recommend incentive spirometry. Recommend to start on antibiotic like Zosyn. Objective Vital Signs - 12hr 03/27/20 03/27/20 03/27/20 01:40 03:48 07:59 Temperature 97.3 F L Pulse Rate 78 82 Pulse Rate [ 94 H Anterior Bilateral Throughout] Respiratory 20 Rate Respiratory 16 Rate [Anterior Bilateral Throughout] Blood Pressure 93/60 O2 Sat by Pulse 94 95 Oximetry 03/27/20 03/27/20 03/27/20 08:00 08:15 10:00 Temperature 98.1 F Pulse Rate 94 H Pulse Rate [ Anterior Bilateral Throughout] Respiratory 18 20 Rate Respiratory Rate [Anterior Bilateral Throughout] Blood Pressure 133/80 O2 Sat by Pulse 95 100 97 Oximetry 03/27/20 11:15 Temperature Pulse Rate 88 Pulse Rate [ Anterior Bilateral Throughout] Respiratory Rate Respiratory Rate [Anterior Bilateral Throughout] Blood Pressure 133/80 O2 Sat by Pulse Oximetry Constitutional: no acute distress, alert, other (Obese. Resting on 3 litres O2.) Eyes: non-icteric ENT: oropharynx moist Neck: supple, no lymphadenopathy, no JVD Effort: mildly labored Ascultation: Bilateral: diminished breath sounds Percussion: Bilateral: not dull Cardiovascular: regular rate and rhythm Gastrointestinal: normoactive bowel sounds, soft, non-tender, non-distended (protuberant) Integumentary: rash, other (cool left foot anterior plantar surface) Extremities: edema, other (BKA left lower leg.) Neurologic: normal mental status, non-focal exam, pupils equal and round, motor strength normal and (limited by pasin in left leg) Psychiatric: mood appropriate, other (Patient sleepy.) CBC and BMP: 03/27/20 14:39 03/27/20 14:39 ABG, PT/INR, D-dimer: ABG ABG pH 7.405 pH Units (7.350-7.450) 03/20/20 04:35 ABG pCO2 40.3 mm Hg 03/20/20 04:35 ABG pO2 68.3 mm Hg (80.0-90.0) L 03/20/20 04:35 ABG O2 Saturation 94.3 % (95.0-99.0) L 03/20/20 04:35 PT/INR, D-dimer PT 12.7 Sec. (12.2-14.9) 03/19/20 08:08 INR 0.94 (0.87-1.13) 03/19/20 08:08 Abnormal lab findings: Abnormal Labs 03/18/20 03/18/20 03/18/20 18:28 18:28 20:56 WBC 12.3 H RBC Hgb Hct Lymph % (Auto) 11.0 L [place] % (Auto) 9.8 H [place] # 1.2 H Seg Neutrophils % 78.4 H Seg Neutrophils # 9.6 H Heparin Anti-Xa Level ABG pO2 ABG HCO3 ABG O2 Saturation ABG Base Excess ABG Hemoglobin Oxyhemoglobin Sodium 132 L Potassium Chloride 91.9 L Carbon Dioxide 20 L BUN Creatinine 1.4 H Glucose 406 H POC Glucose Hemoglobin A1c Calcium Total Creatine Kinase 2727 H 2492 H CK-MB (CK-2) 135.9 H 107.2 H CK-MB (CK-2) Rel Index 4.3 H Troponin T 5.110 H* 3.960 H* D Triglycerides 188 H LDL Cholesterol Direct 141 H 03/18/20 03/19/20 03/19/20 22:21 01:57 08:08 WBC RBC Hgb Hct Lymph % (Auto) [place] % (Auto) [place] # Seg Neutrophils % Seg Neutrophils # Heparin Anti-Xa Level ABG pO2 ABG HCO3 ABG O2 Saturation ABG Base Excess ABG Hemoglobin Oxyhemoglobin Sodium Potassium Chloride Carbon Dioxide BUN Creatinine Glucose POC Glucose 317 H Hemoglobin A1c 11.0 H Calcium Total Creatine Kinase 7255 H CK-MB (CK-2) 79.3 H CK-MB (CK-2) Rel Index Troponin T 5.540 H* D Triglycerides LDL Cholesterol Direct 03/19/20 03/19/20 03/19/20 08:08 08:08 08:08 WBC 13.3 H RBC Hgb Hct Lymph % (Auto) 10.7 L [place] % (Auto) 8.5 H [place] # 1.1 H Seg Neutrophils % 80.0 H Seg Neutrophils # 10.6 H Heparin Anti-Xa Level 0.10 L ABG pO2 ABG HCO3 ABG O2 Saturation ABG Base Excess ABG Hemoglobin Oxyhemoglobin Sodium 133 L Potassium 5.1 H Chloride Carbon Dioxide 17 L BUN 23 H Creatinine Glucose 313 H POC Glucose Hemoglobin A1c Calcium Total Creatine Kinase CK-MB (CK-2) CK-MB (CK-2) Rel Index Troponin T Triglycerides LDL Cholesterol Direct 03/19/20 03/19/20 03/19/20 15:40 18:23 21:32 WBC RBC Hgb Hct Lymph % (Auto) [place] % (Auto) [place] # Seg Neutrophils % Seg Neutrophils # Heparin Anti-Xa Level < 0.10 L ABG pO2 ABG HCO3 18.3 L ABG O2 Saturation ABG Base Excess -5.4 L ABG Hemoglobin 12.2 L Oxyhemoglobin 94.6 L Sodium Potassium Chloride Carbon Dioxide BUN Creatinine Glucose POC Glucose 348 H Hemoglobin A1c Calcium Total Creatine Kinase CK-MB (CK-2) CK-MB (CK-2) Rel Index Troponin T Triglycerides LDL Cholesterol Direct 03/20/20 03/20/20 03/20/20 04:35 05:12 05:12 WBC 11.1 H RBC 3.63 L Hgb 11.0 L Hct 32.7 L D Lymph % (Auto) [place] % (Auto) 8.1 H [place] # 0.9 H Seg Neutrophils % 75.8 H Seg Neutrophils # 8.4 H Heparin Anti-Xa Level 0.28 L ABG pO2 68.3 L ABG HCO3 ABG O2 Saturation 94.3 L ABG Base Excess ABG Hemoglobin 7.1 L Oxyhemoglobin 92.3 L Sodium Potassium Chloride Carbon Dioxide BUN Creatinine Glucose POC Glucose Hemoglobin A1c Calcium Total Creatine Kinase CK-MB (CK-2) CK-MB (CK-2) Rel Index Troponin T Triglycerides LDL Cholesterol Direct 03/20/20 03/20/20 03/20/20 05:12 07:49 12:15 WBC RBC Hgb Hct Lymph % (Auto) [place] % (Auto) [place] # Seg Neutrophils % Seg Neutrophils # Heparin Anti-Xa Level ABG pO2 ABG HCO3 ABG O2 Saturation ABG Base Excess ABG Hemoglobin Oxyhemoglobin Sodium 134 L Potassium Chloride Carbon Dioxide 21 L BUN 23 H Creatinine Glucose 275 H POC Glucose 294 H 357 H Hemoglobin A1c Calcium Total Creatine Kinase CK-MB (CK-2) CK-MB (CK-2) Rel Index Troponin T 3.200 H* D Triglycerides LDL Cholesterol Direct 03/20/20 03/20/20 03/21/20 17:16 22:08 04:44 WBC RBC Hgb Hct Lymph % (Auto) [place] % (Auto) [place] # Seg Neutrophils % Seg Neutrophils # Heparin Anti-Xa Level ABG pO2 ABG HCO3 ABG O2 Saturation ABG Base Excess ABG Hemoglobin Oxyhemoglobin Sodium 136 L Potassium Chloride Carbon Dioxide 18 L BUN 26 H Creatinine Glucose 266 H POC Glucose 327 H 292 H Hemoglobin A1c Calcium 8.1 L Total Creatine Kinase CK-MB (CK-2) CK-MB (CK-2) Rel Index Troponin T Triglycerides LDL Cholesterol Direct 03/21/20 03/21/20 03/21/20 07:50 12:25 15:53 WBC RBC Hgb Hct Lymph % (Auto) [place] % (Auto) [place] # Seg Neutrophils % Seg Neutrophils # Heparin Anti-Xa Level ABG pO2 ABG HCO3 ABG O2 Saturation ABG Base Excess ABG Hemoglobin Oxyhemoglobin Sodium Potassium Chloride Carbon Dioxide BUN Creatinine Glucose POC Glucose 271 H 314 H 436 H Hemoglobin A1c Calcium Total Creatine Kinase CK-MB (CK-2) CK-MB (CK-2) Rel Index Troponin T Triglycerides LDL Cholesterol Direct 03/21/20 03/21/20 03/22/20 17:44 21:55 04:33 WBC RBC Hgb 10.0 L Hct 29.4 L Lymph % (Auto) [place] % (Auto) [place] # Seg Neutrophils % Seg Neutrophils # Heparin Anti-Xa Level ABG pO2 ABG HCO3 ABG O2 Saturation ABG Base Excess ABG Hemoglobin Oxyhemoglobin Sodium Potassium Chloride Carbon Dioxide BUN Creatinine Glucose POC Glucose 362 H 329 H Hemoglobin A1c Calcium Total Creatine Kinase CK-MB (CK-2) CK-MB (CK-2) Rel Index Troponin T Triglycerides LDL Cholesterol Direct 03/22/20 03/22/20 03/22/20 08:57 14:12 19:57 WBC RBC Hgb Hct Lymph % (Auto) [place] % (Auto) [place] # Seg Neutrophils % Seg Neutrophils # Heparin Anti-Xa Level ABG pO2 ABG HCO3 ABG O2 Saturation ABG Base Excess ABG Hemoglobin Oxyhemoglobin Sodium Potassium Chloride Carbon Dioxide BUN Creatinine Glucose POC Glucose 284 H 319 H 356 H Hemoglobin A1c Calcium Total Creatine Kinase CK-MB (CK-2) CK-MB (CK-2) Rel Index Troponin T Triglycerides LDL Cholesterol Direct 03/22/20 03/23/20 03/23/20 21:44 08:18 12:46 WBC RBC Hgb Hct Lymph % (Auto) [place] % (Auto) [place] # Seg Neutrophils % Seg Neutrophils # Heparin Anti-Xa Level ABG pO2 ABG HCO3 ABG O2 Saturation ABG Base Excess ABG Hemoglobin Oxyhemoglobin Sodium Potassium Chloride Carbon Dioxide BUN Creatinine Glucose POC Glucose 336 H 215 H 262 H Hemoglobin A1c Calcium Total Creatine Kinase CK-MB (CK-2) CK-MB (CK-2) Rel Index Troponin T Triglycerides LDL Cholesterol Direct 03/23/20 03/23/20 03/24/20 15:56 22:05 02:35 WBC RBC Hgb 9.0 L Hct 25.8 L Lymph % (Auto) [place] % (Auto) [place] # Seg Neutrophils % Seg Neutrophils # Heparin Anti-Xa Level ABG pO2 ABG HCO3 ABG O2 Saturation ABG Base Excess ABG Hemoglobin Oxyhemoglobin Sodium Potassium Chloride Carbon Dioxide BUN Creatinine Glucose POC Glucose 246 H 322 H Hemoglobin A1c Calcium Total Creatine Kinase CK-MB (CK-2) CK-MB (CK-2) Rel Index Troponin T Triglycerides LDL Cholesterol Direct 03/24/20 03/24/20 03/24/20 07:38 11:45 16:02 WBC RBC Hgb Hct Lymph % (Auto) [place] % (Auto) [place] # Seg Neutrophils % Seg Neutrophils # Heparin Anti-Xa Level ABG pO2 ABG HCO3 ABG O2 Saturation ABG Base Excess ABG Hemoglobin Oxyhemoglobin Sodium Potassium Chloride Carbon Dioxide BUN Creatinine Glucose POC Glucose 289 H 257 H 150 H Hemoglobin A1c Calcium Total Creatine Kinase CK-MB (CK-2) CK-MB (CK-2) Rel Index Troponin T Triglycerides LDL Cholesterol Direct 03/24/20 03/25/20 03/25/20 21:24 04:06 07:39 WBC RBC Hgb Hct Lymph % (Auto) [place] % (Auto) [place] # Seg Neutrophils % Seg Neutrophils # Heparin Anti-Xa Level 0.10 L ABG pO2 ABG HCO3 ABG O2 Saturation ABG Base Excess ABG Hemoglobin Oxyhemoglobin Sodium Potassium Chloride Carbon Dioxide BUN Creatinine Glucose POC Glucose 228 H 332 H Hemoglobin A1c Calcium Total Creatine Kinase CK-MB (CK-2) CK-MB (CK-2) Rel Index Troponin T Triglycerides LDL Cholesterol Direct 03/25/20 03/25/20 03/25/20 08:13 09:30 11:59 WBC 13.1 H RBC 2.82 L Hgb 8.5 L Hct 26.1 L Lymph % (Auto) [place] % (Auto) [place] # Seg Neutrophils % Seg Neutrophils # Heparin Anti-Xa Level ABG pO2 ABG HCO3 ABG O2 Saturation ABG Base Excess ABG Hemoglobin Oxyhemoglobin Sodium 131 L Potassium 5.3 H Chloride Carbon Dioxide 20 L BUN 39 H Creatinine 1.4 H Glucose 313 H POC Glucose 273 H Hemoglobin A1c Calcium 8.1 L Total Creatine Kinase CK-MB (CK-2) CK-MB (CK-2) Rel Index Troponin T Triglycerides LDL Cholesterol Direct 03/25/20 03/25/20 03/25/20 13:54 15:58 18:21 WBC RBC Hgb Hct Lymph % (Auto) [place] % (Auto) [place] # Seg Neutrophils % Seg Neutrophils # Heparin Anti-Xa Level ABG pO2 ABG HCO3 ABG O2 Saturation ABG Base Excess ABG Hemoglobin Oxyhemoglobin Sodium Potassium Chloride Carbon Dioxide BUN Creatinine Glucose POC Glucose 246 H 235 H 185 H Hemoglobin A1c Calcium Total Creatine Kinase CK-MB (CK-2) CK-MB (CK-2) Rel Index Troponin T Triglycerides LDL Cholesterol Direct 03/25/20 03/26/20 03/26/20 20:45 05:15 06:59 WBC 17.4 H 15.6 H RBC 3.05 L 3.05 L Hgb 9.1 L 9.2 L Hct 28.2 L 27.9 L Lymph % (Auto) 8.9 L 8.9 L [place] % (Auto) [place] # 1.0 H Seg Neutrophils % 84.4 H 84.8 H Seg Neutrophils # 14.7 H 13.2 H Heparin Anti-Xa Level ABG pO2 ABG HCO3 ABG O2 Saturation ABG Base Excess ABG Hemoglobin Oxyhemoglobin Sodium Potassium Chloride Carbon Dioxide BUN Creatinine Glucose POC Glucose 178 H Hemoglobin A1c Calcium Total Creatine Kinase CK-MB (CK-2) CK-MB (CK-2) Rel Index Troponin T Triglycerides LDL Cholesterol Direct 03/26/20 03/26/2003/26/20 06:59 07:43 11:56 WBC RBC Hgb Hct Lymph % (Auto) [place] % (Auto) [place] # Seg Neutrophils % Seg Neutrophils # Heparin Anti-Xa Level ABG pO2 ABG HCO3 ABG O2 Saturation ABG Base Excess ABG Hemoglobin Oxyhemoglobin Sodium 131 L Potassium 5.8 H Chloride Carbon Dioxide 16 L BUN 42 H Creatinine 1.4 H Glucose 163 H POC Glucose 170 H 198 H Hemoglobin A1c Calcium 8.0 L Total Creatine Kinase CK-MB (CK-2) CK-MB (CK-2) Rel Index Troponin T Triglycerides LDL Cholesterol Direct 03/26/20 03/26/20 03/26/20 13:58 16:16 21:00 WBC RBC Hgb Hct Lymph % (Auto) [place] % (Auto) [place] # Seg Neutrophils % Seg Neutrophils # Heparin Anti-Xa Level ABG pO2 ABG HCO3 ABG O2 Saturation ABG Base Excess ABG Hemoglobin Oxyhemoglobin Sodium 128 L Potassium 6.0 H Chloride Carbon Dioxide 15 L BUN 45 H Creatinine 1.4 H Glucose 190 H POC Glucose 184 H 192 H Hemoglobin A1c Calcium 8.2 L Total Creatine Kinase CK-MB (CK-2) CK-MB (CK-2) Rel Index Troponin T Triglycerides LDL Cholesterol Direct 03/27/20 03/27/20 08:32 11:51 WBC RBC Hgb Hct Lymph % (Auto) [place] % (Auto) [place] # Seg Neutrophils % Seg Neutrophils # Heparin Anti-Xa Level ABG pO2 ABG HCO3 ABG O2 Saturation ABG Base Excess ABG Hemoglobin Oxyhemoglobin Sodium Potassium Chloride Carbon Dioxide BUN Creatinine Glucose POC Glucose 233 H 252 H Hemoglobin A1c Calcium Total Creatine Kinase CK-MB (CK-2) CK-MB (CK-2) Rel Index Troponin T Triglycerides LDL Cholesterol Direct Chest x-ray: report reviewed, image reviewed Additional Studies: CHEST 1 VIEW 03/26/20 INDICATION: Leukocytosis with prolonged bedrest and COPD. COMPARISON: 03/19/2020 FINDINGS: Support devices: None. Heart: Stable mild cardiomegaly. Previous sternotomy is noted. Lungs/Pleura: Moderate infiltrate has developed in the right lower lung. The left lung is generally clear although the left lower lobe is poorly evaluated secondary to cardiomegaly. No significant pleural effusion. No pneumothorax. Additional findings: None. IMPRESSION: Stable cardiomegaly. New right lower lobe infiltrate or congestive changes. Allied health notes reviewed: nursing
--- NOTE | 2020-03-27 14:42 | Progress Note ---
Assessment and Plan Postop day #2 status post left completion BKA. The patient had hyperkalemia that was treated medically. Repeat BMP has been ordered but the specimen has not been drawn yet. We will follow-up results. Patient with leukocytosis and possible new right lower lobe infiltrate that could be secondary to pneumonia versus atelectasis. Have encouraged pulmonary toilet and use of incentive spirometry. Additionally CBC is pending to follow the trend of his white count. His BKA dressing was changed and the wound is healing well. Patient is to continue to work with PT and OT awaiting recommendations for discharge disposition. Otherwise patient is clinically ready from a surgical standpoint to be discharged when he is medically stable. Subjective Date of service: 03/27/20 Principal diagnosis: Acute limb ischemia; STARR; COPD; Ac hypoxemic resp failure; DM II; NSTEMI Interval history: The patient is without complaints. He states his left stump feels tight but otherwise pain is tolerable when he is not moving. Objective - Constitutional Vitals: Vital Signs - 12hr 03/27/20 03/27/20 03/27/20 03:48 07:59 08:00 Temperature 97.3 F L Pulse Rate 82 Pulse Rate [ 94 H Anterior Bilateral Throughout] Respiratory 20 Rate Respiratory 16 Rate [Anterior Bilateral Throughout] Blood Pressure 93/60 O2 Sat by Pulse 95 95 Oximetry 03/27/20 03/27/20 03/27/20 08:15 10:00 11:15 Temperature 98.1 F Pulse Rate 94 H 88 Pulse Rate [ Anterior Bilateral Throughout] Respiratory 18 20 Rate Respiratory Rate [Anterior Bilateral Throughout] Blood Pressure 133/80 133/80 O2 Sat by Pulse 100 97 Oximetry General appearance: Present: no acute distress - Respiratory Respiratory effort: other ([place]) - Breasts Breasts: deferred - Cardiovascular Rhythm: regular Extremities: abnormal (Left BKA stump dressing was changed and the incision is clean, dry, and intact without evidence of ischemia or infection. The stump is warm and well perfused.) - Gastrointestinal General gastrointestinal: Present: soft, non-tender - Genitourinary Male genitourinary: deferred - Labs CBC & Chem 7: 03/26/20 06:59 03/26/20 13:58 Labs: Abnormal lab results 03/25/20 03/26/20 03/26/20 Range/Units 18:21 13:58 16:16 Sodium 128 L (137-145) mmol/L Potassium 6.0 H (3.6-5.0) mmol/L Carbon Dioxide 15 L (22-30) mmol/L BUN 45 H (9-20) mg/dL Creatinine 1.4 H (0.8-1.3) mg/dL Glucose 190 H (75-100) mg/dL POC Glucose 185 H 184 H (70-105) Calcium 8.2 L (8.4-10.2) mg/dL 03/26/20 03/27/20 03/27/20 Range/Units 21:00 08:32 11:51 Sodium (137-145) mmol/L Potassium (3.6-5.0) mmol/L Carbon Dioxide (22-30) mmol/L BUN (9-20) mg/dL Creatinine (0.8-1.3) mg/dL Glucose (75-100) mg/dL POC Glucose 192 H 233 H 252 H (70-105) Calcium (8.4-10.2) mg/dL - Imaging and cardiology Chest x-ray: image reviewed (Patient with right lower lobe infiltrate) Medications & Allergies - Medications Allergies/Adverse Reactions: Allergies No Known Allergies Allergy (Unverified 03/18/20 15:17) Home Medications: Home Medications Medication Instructions Recorded Confirmed Last Taken Type AtorvaSTATin [Lipitor] 20 mg PO QHS 03/20/20 03/20/20 03/14/20 History Clopidogrel [Plavix] 75 mg PO QHS 03/20/20 03/20/20 03/14/20 History Famotidine [Acid Controller] 20 mg PO BID 03/20/20 03/20/20 03/14/20 History Fenofibrate Nanocrystallized 48 mg PO DAILY 03/20/20 03/20/20 03/14/20 History [Fenofibrate] Metoprolol Tartrate 25 mg PO BID 03/20/20 03/20/20 03/14/20 History Pregabalin [Lyrica] 150 mg PO BID 03/20/20 03/20/20 03/14/20 History amLODIPine [Norvasc] 5 mg PO DAILY 03/20/20 03/20/20 03/14/20 History glipiZIDE [Glucotrol] 10 mg PO BID 03/20/20 03/20/20 03/14/20 History hydroCHLOROthiazide [HCTZ] 25 mg PO QDAY 03/20/20 03/20/20 03/14/20 History lisinopriL [Zestril TAB] 40 mg PO QDAY 03/20/20 03/20/20 03/14/20 History Active Medications: Generic Name Dose Route Start Last Admin Trade Name Freq PRN Reason Stop Dose Admin Acetaminophen/Hydrocodone Bitart 2 each 03/22/20 17:18 03/27/20 11:18 [place] 5/325 PO 2 each Q4H PRN Administration Pain, Moderate (4-6) Apixaban 5 mg 03/26/20 22:00 03/27/20 11:14 Eliquis PO 5 mg Q12HR LOI Administration Protocol Arformoterol Tartrate 15 mcg 03/19/20 20:00 03/27/20 07:58 Brovana Nebu IH 15 mcg Q12HRT LOI Administration Atorvastatin Calcium 40 mg 03/19/20 22:00 03/26/20 21:58 Lipitor PO 40 mg QHS LOI Administration Budesonide 0.5 mg 03/19/20 20:00 03/27/20 07:58 Pulmicort IH 0.5 mg Q12HRT LOI Administration Clopidogrel Bisulfate 75 mg 03/19/20 10:00 03/27/20 11:13 Plavix PO 75 mg QDAY LOI Administration Dextrose 50 ml 03/18/20 22:21 D50w (25gm) Syringe IV Q30MIN PRN Hypoglycemia Protocol Diphenhydramine HCl 25 mg 03/19/20 12:44 Benadryl IV Q4H PRN Itching Hydromorphone HCl 0.5 mg 03/25/20 13:48 Dilaudid IV Q10MIN PRN Pain , Severe (7-10) Hydromorphone/Sodium Chloride 0 mg 03/19/20 13:00 03/26/20 10:51 Dilaudid [employer] 6mg/30ml IV 6 cart DIRECT LOI Administration Protocol Sodium Chloride 1,000 mls @ 75 mls/hr 03/25/20 13:15 03/27/20 05:36 Nacl 0.9% 1000 Ml IV 75 mls/hr DIRECT LOI Administration Insulin Glargine 25 units 03/22/20 22:00 03/26/20 22:02 Lantus SUB-Q 25 units QHS LOI Administration Insulin Human Lispro 0 unit 03/20/20 16:30 03/27/20 13:11 Humalog SUB-Q 6 unit ACHS LOI Administration Protocol Magnesium Hydroxide 30 ml 03/18/20 22:21 Milk Of Magnesia PO Q4H PRN Constipation Metoprolol Tartrate 50 mg 03/19/20 22:00 03/27/20 11:15 Metoprolol PO 50 mg BID LOI Administration Naloxone HCl 0.1 mg 03/19/20 12:44 Naloxone IV Q2MIN PRN Res Rate </= 8 or 02 SAT < 92% Ondansetron HCl 4 mg 03/18/20 22:21 Zofran IV Q8H PRN Nausea And Vomiting Pantoprazole Sodium 40 mg 03/20/20 10:00 03/27/20 11:14 Protonix PO 40 mg BID LOI Administration Pregabalin 150 mg 03/22/20 22:00 03/27/20 11:13 Pregabalin PO 150 mg BID LOI Administration Sodium Chloride 10 ml 03/19/20 10:00 03/27/20 11:14 Sodium Chloride Flush Syringe 10 Ml IV 10 ml BID LOI Administration Sodium Chloride 10 ml 03/18/20 22:21 03/22/20 19:52 Sodium Chloride Flush Syringe 10 Ml IV 10 ml PRN PRN Administration LINE FLUSH HEART Score - HEART Score Troponin: Troponin T 3.200 ng/mL (0.00-0.029) H* D 03/20/20 05:12
[2020-03-27 15:26] LABS: Hematocrit 24.7 % (35.5-45.6); Hemoglobin 7.9 gm/dl (11.8-15.2); Mean Corpuscular HGB Conc 32 % (32-34); Mean Corpuscular Volume 92 fl (84-94); Platelet Count 347 K/mm3 (140-440); Red Blood Count 2.68 M/mm3 (3.65-5.03); Red Cell Distribution Width 14.2 % (13.2-15.2)
[2020-03-27 15:51] LABS: Calcium 8.2 mg/dL (8.4-10.2)
--- NOTE | 2020-03-27 17:06 | Cat Scan Report ---
CT abdomen pelvis wo con INDICATION: hgb declining, right arterial access, r/o RP bleed. TECHNIQUE: All CT scans at this location are performed using the following dose modulation technique: Automated exposure control. CONTRAST: None. COMPARISON: None available. CT ABDOMEN: Small basilar effusions have associated atelectasis. There are also patchy infiltrates at both lung bases. The parenchymal organs are unremarkable in appearance. Negative for mass, fluid or inflammation. The bowel is not dilated or thickened. CT PELVIS: Negative for pelvic mass, fluid or inflammation. No retroperitoneal hematoma. Soft tissue edema is greatest at the lower pelvis/upper extremities left greater than right. IMPRESSION: 1. Bibasilar pleural fluid with associated atelectasis and pneumonia. 2. Soft tissue edema. No large hematoma. Signer Name: Osmani Condon MD Signed: 03/27/2020 5:02 PM Workstation Name: [id number]
[2020-03-27] MEDS ORDERED: FUROSEMIDE 40 MG/4 ML INJ IV ONE (21:16)
[2020-03-27] MEDS ORDERED: CALCIUM GLUCONATE 1,000 MG in SODIUM CHLORIDE 0.9% 100 ML IV ONE (21:19)
[2020-03-27] MEDS ORDERED: SODIUM POLYSTYRENE 15 GM/60 ML ORAL LIQD PO ONE (21:19)
[2020-03-27] MEDS ORDERED: PIPERACILLIN/TAZOBACTAM 3.375 3.375 GM/50 ML BAG IV SCH (22:00)
[2020-03-27] MEDS: INSULIN GLARGINE 100 UNITS/ML SUB-Q SCH (22:15)
[2020-03-27] MEDS: PIPERACILLIN/TAZOBACTAM 3.375 3.375 GM/50 ML BAG IV SCH (23:02)
[2020-03-28] MEDS: METOPROLOL TARTRATE 50 MG TAB PO SCH ×3 (01:09→21:13)
[2020-03-28] MEDS: HYDROcodone/ACETAMINOPHEN 5-325 MG TAB PO PRN ×3 (02:36→20:02)
[2020-03-28] MEDS: PIPERACILLIN/TAZOBACTAM 3.375 3.375 GM/50 ML BAG IV SCH (05:28)
[2020-03-28] MEDS: BUDESONIDE 0.5 MG/2 ML NEBU IH SCH ×2 (08:12→19:57)
[2020-03-28] MEDS: ARFORMOTEROL 15 MCG/2 ML NEBU IH SCH ×2 (08:12→19:57)
[2020-03-28 08:18] LABS: Hematocrit 24.5 % (35.5-45.6); Hemoglobin 7.9 gm/dl (11.8-15.2); Mean Corpuscular HGB Conc 32 % (32-34); Mean Corpuscular Volume 91 fl (84-94); Platelet Count 348 K/mm3 (140-440); Red Blood Count 2.71 M/mm3 (3.65-5.03)
[2020-03-28 08:19] LABS: Calcium 7.8 mg/dL (8.4-10.2)
--- NOTE | 2020-03-28 09:41 | Progress Note ---
Subjective Date of service: 03/28/20 Principal diagnosis: Acute limb ischemia; STARR; COPD; Ac hypoxemic resp failure; DM II; NSTEMI Interval history: Status post left BKA Overall patient seems to be doing well, he states that his stump is feeling much better His dressing is clean and dry The patient is experiencing a productive cough, the patient was encouraged to perform incentive spirometry Patient likely require rehab at discharge, continue physical and Occupational Therapy Objective - Constitutional Vitals: Vital Signs - 12hr 03/27/20 03/27/20 03/28/20 21:48 22:00 00:20 Temperature 98.6 F 98.0 F Pulse Rate 68 102 H Pulse Rate [ Anterior Bilateral Throughout] Respiratory 20 18 Rate Respiratory Rate [Anterior Bilateral Throughout] Blood Pressure 130/88 Blood Pressure 110/68 [Left] O2 Sat by Pulse 96 98 Oximetry 03/28/20 03/28/20 03/28/20 01:09 02:16 04:07 Temperature 98.0 F Pulse Rate 102 H 98 H Pulse Rate [ Anterior Bilateral Throughout] Respiratory 18 Rate Respiratory Rate [Anterior Bilateral Throughout] Blood Pressure 130/88 111/78 Blood Pressure [Left] O2 Sat by Pulse 92 93 Oximetry 03/28/20 03/28/20 03/28/20 08:12 08:16 08:23 Temperature 98.6 F Pulse Rate 89 Pulse Rate [ 96 H Anterior Bilateral Throughout] Respiratory 20 Rate Respiratory 16 Rate [Anterior Bilateral Throughout] Blood Pressure 100/72 Blood Pressure [Left] O2 Sat by Pulse 94 100 Oximetry - Labs CBC & Chem 7: 03/28/20 07:39 03/28/20 07:39 Labs: Abnormal lab results 03/27/20 03/27/20 03/27/20 Range/Units 11:51 14:39 14:39 WBC 22.9 H (4.5-11.0) K/mm3 RBC 2.68 L (3.65-5.03) M/mm3 Hgb 7.9 L (11.8-15.2) gm/dl Hct 24.7 L (35.5-45.6) % Sodium 133 L (137-145) mmol/L Potassium 5.5 H (3.6-5.0) mmol/L Carbon Dioxide 16 L (22-30) mmol/L BUN 46 H (9-20) mg/dL Creatinine 1.4 H (0.8-1.3) mg/dL Glucose 225 H (75-100) mg/dL POC Glucose 252 H (70-105) Calcium 8.2 L (8.4-10.2) mg/dL 03/27/20 03/27/20 03/28/20 Range/Units 15:19 21:35 07:39 WBC 22.4 H (4.5-11.0) K/mm3 RBC 2.71 L (3.65-5.03) M/mm3 Hgb 7.9 L (11.8-15.2) gm/dl Hct 24.5 L (35.5-45.6) % Sodium (137-145) mmol/L Potassium (3.6-5.0) mmol/L Carbon Dioxide (22-30) mmol/L BUN (9-20) mg/dL Creatinine (0.8-1.3) mg/dL Glucose (75-100) mg/dL POC Glucose 239 H 202 H (70-105) Calcium (8.4-10.2) mg/dL 03/28/20 03/28/20 Range/Units 07:39 08:36 WBC (4.5-11.0) K/mm3 RBC (3.65-5.03) M/mm3 Hgb (11.8-15.2) gm/dl Hct (35.5-45.6) % Sodium 134 L (137-145) mmol/L Potassium (3.6-5.0) mmol/L Carbon Dioxide 19 L (22-30) mmol/L BUN 47 H (9-20) mg/dL Creatinine (0.8-1.3) mg/dL Glucose 240 H (75-100) mg/dL POC Glucose 253 H (70-105) Calcium 7.8 L (8.4-10.2) mg/dL Medications & Allergies - Medications Allergies/Adverse Reactions: Allergies No Known Allergies Allergy (Unverified 03/18/20 15:17) Home Medications: Home Medications Medication Instructions Recorded Confirmed Last Taken Type AtorvaSTATin [Lipitor] 20 mg PO QHS 03/20/20 03/20/20 03/14/20 History Clopidogrel [Plavix] 75 mg PO QHS 03/20/20 03/20/20 03/14/20 History Famotidine [Acid Controller] 20 mg PO BID 03/20/20 03/20/20 03/14/20 History Fenofibrate Nanocrystallized 48 mg PO DAILY 03/20/20 03/20/20 03/14/20 History [Fenofibrate] Metoprolol Tartrate 25 mg PO BID 03/20/20 03/20/20 03/14/20 History Pregabalin [Lyrica] 150 mg PO BID 03/20/20 03/20/20 03/14/20 History amLODIPine [Norvasc] 5 mg PO DAILY 03/20/20 03/20/20 03/14/20 History glipiZIDE [Glucotrol] 10 mg PO BID 03/20/20 03/20/20 03/14/20 History hydroCHLOROthiazide [HCTZ] 25 mg PO QDAY 03/20/20 03/20/20 03/14/20 History lisinopriL [Zestril TAB] 40 mg PO QDAY 03/20/20 03/20/20 03/14/20 History Active Medications: Generic Name Dose Route Start Last Admin Trade Name Freq PRN Reason Stop Dose Admin Acetaminophen/Hydrocodone Bitart 2 each 03/22/20 17:18 03/28/20 02:36 [place] 5/325 PO 2 each Q4H PRN Administration Pain, Moderate (4-6) Apixaban 5 mg 03/26/20 22:00 03/27/20 22:13 Eliquis PO 5 mg Q12HR LOI Administration Protocol Arformoterol Tartrate 15 mcg 03/19/20 20:00 03/28/20 08:12 Brovana Nebu IH 15 mcg Q12HRT LOI Administration Atorvastatin Calcium 40 mg 03/19/20 22:00 03/27/20 22:13 Lipitor PO 40 mg QHS LOI Administration Budesonide 0.5 mg 03/19/20 20:00 03/28/20 08:12 Pulmicort IH 0.5 mg Q12HRT LOI Administration Clopidogrel Bisulfate 75 mg 03/19/20 10:00 03/27/20 11:13 Plavix PO 75 mg QDAY LOI Administration Dextrose 50 ml 03/18/20 22:21 D50w (25gm) Syringe IV Q30MIN PRN Hypoglycemia Protocol Diphenhydramine HCl 25 mg 03/19/20 12:44 Benadryl IV Q4H PRN Itching Hydromorphone HCl 0.5 mg 03/25/20 13:48 Dilaudid IV Q10MIN PRN Pain , Severe (7-10) Hydromorphone/Sodium Chloride 0 mg 03/19/20 13:00 03/26/20 10:51 Dilaudid [employer] Super[employer] 6mg/30ml IV 6 cart DIRECT LOI Administration Protocol Piperacillin Sod/Tazobactam Sod 3.375 gm in 50 mls @ 100 mls/hr 03/27/20 22:00 03/28/20 05:28 Zosyn/Ns 3.375gm/50ml IV 100 mls/hr Q8HR LOI Administration Insulin Glargine 25 units 03/22/20 22:00 03/27/20 22:15 Lantus SUB-Q 25 units QHS LOI Administration Insulin Human Lispro 0 unit 03/20/20 16:30 03/27/20 22:14 Humalog SUB-Q 4 unit ACHS LOI Administration Protocol Magnesium Hydroxide 30 ml 03/18/20 22:21 Milk Of Magnesia PO Q4H PRN Constipation Metoprolol Tartrate 50 mg 03/19/20 22:00 03/28/20 01:09 Metoprolol PO 50 mg BID LOI Administration Naloxone HCl 0.1 mg 03/19/20 12:44 Naloxone IV Q2MIN PRN Res Rate </= 8 or 02 SAT < 92% Ondansetron HCl 4 mg 03/18/20 22:21 Zofran IV Q8H PRN Nausea And Vomiting Pantoprazole Sodium 40 mg 03/20/20 10:00 03/27/20 22:13 Protonix PO 40 mg BID LOI Administration Pregabalin 150 mg 03/22/20 22:00 03/27/20 22:13 Pregabalin PO 150 mg BID LOI Administration Sodium Chloride 10 ml 03/19/20 10:00 03/27/20 23:02 Sodium Chloride Flush Syringe 10 Ml IV 10 ml BID LOI Administration Sodium Chloride 10 ml 03/18/20 22:21 03/22/20 19:52 Sodium Chloride Flush Syringe 10 Ml IV 10 ml PRN PRN Administration LINE FLUSH HEART Score - HEART Score Troponin: Troponin T 3.200 ng/mL (0.00-0.029) H* D 03/20/20 05:12
[2020-03-28 10:31] LABS: Anisocytosis Few; Basophils % (Manual) 0 % (0.0-1.8); Eosinophils % (Manual) 0 % (0.0-4.3); Platelet Estimate Consistent w Auto; Total Cells Counted 100
[2020-03-28] MEDS: CLOPIDOGREL 75 MG TAB PO SCH (10:44)
[2020-03-28] MEDS: PREGABALIN 75 MG CAP PO SCH ×2 (10:44→21:12)
[2020-03-28] MEDS: APIXABAN 5 MG TAB PO SCH ×2 (10:44→21:13)
[2020-03-28] MEDS: PANTOPRAZOLE 40 MG TAB PO SCH ×2 (10:44→21:13)
[2020-03-28] MEDS: [UNRECOGNIZED DRUG - REMARK] SUB-Q SCH ×4 (12:33→21:17)
[2020-03-28] MEDS: INSULIN LISPRO 100 UNIT/ML VIAL 3 mL SUB-Q SCH ×2 (12:36→17:39)
--- NOTE | 2020-03-28 13:21 | Progress Note ---
Assessment and Plan Acute limb ischemia S/P revascularization surgery. Obstructive sleep apnea. History of chronic obstructive pulmonary disease. Acute hypoxemic respiratory failure. Diabetes. History of coronary artery disease. Non-ST elevation myocardial infarction. Acute coronary syndrome. History of cerebrovascular accident. - PT/OT - increase ambulation as tolerated - wound care per WCN / RN - continue antiplatelet therapy with Eliquis and Plavix - no new issues otherwise, continue care as below; - further surgical intervention per Vascular team - accuchecks with glycemic control per SSI (While critically ill target blood glucose of 140-180 mg/dL; avoid hypoglycemia) - wean supplemental oxygen for target O2 sat's > 90% acutely - prn bronchodilators with pulmonary hygiene per RT - avoid benzodiazepine's, reduce the possibility of delirium - AB's per surgery rec's (No S&S of overwhelming sepsis) - prn analgesia per pain score - Maintenance of sleep-wake cycle, avoid delirium - aspiration precautions - G.I. & VTE prophylaxis - PT/OT/ROM exercises - mobility protocols for pressure ulcer prophylaxis - Monitor hemodynamics closely - continue other care per attending / other consultants - discharge planning ongoing concurrently - transferred to telemetry .... Re-evaluate in am & prn Subjective Date of service: 03/28/20 Principal diagnosis: Acute limb ischemia; STARR; COPD; Ac hypoxemic resp failure; DM II; NSTEMI Interval history: Patient is seen today for: Acute limb ischemia S/P revascularization surgery; STARR; COPD; Acute hypoxemic respiratory failure; DM II; NSTEMI; H/O CVA Seen and examined at bedside; 24hour events reviewed; nursing and respiratory care staff consulted; no adverse overnight events reported to me; resting peacefully in bed; s/p Left BKA; continues to use BIPAP qhs; denies acyute chest pains; No N/V/F/C; no limb pain at time of my examination Objective Vital Signs - 12hr 03/28/20 03/28/20 03/28/20 02:16 04:07 08:12 Temperature 98.0 F Pulse Rate 98 H Pulse Rate [ 96 H Anterior Bilateral Throughout] Respiratory 18 Rate Respiratory 16 Rate [Anterior Bilateral Throughout] Blood Pressure 111/78 O2 Sat by Pulse 92 93 Oximetry 03/28/20 03/28/20 03/28/20 08:16 08:23 10:44 Temperature 98.6 F Pulse Rate 89 89 Pulse Rate [ Anterior Bilateral Throughout] Respiratory 20 Rate Respiratory Rate [Anterior Bilateral Throughout] Blood Pressure 100/72 100/72 O2 Sat by Pulse 94 100 Oximetry Constitutional: no acute distress, other (middle aged obese male with mildly increased respiratory effort at rest) Eyes: non-icteric ENT: oropharynx moist Neck: supple, no lymphadenopathy, no JVD Effort: mildly labored Ascultation: Bilateral: clear, diminished breath sounds Percussion: Bilateral: not dull Cardiovascular: regular rate and rhythm Gastrointestinal: normoactive bowel sounds, soft, non-tender, non-distended (protuberant) Integumentary: rash Extremities: cool, edema, other (left BKA with clean dressing) Neurologic: normal mental status, non-focal exam, pupils equal and round, motor strength normal and Psychiatric: mood appropriate, affect normal CBC and BMP: 03/28/20 07:39 03/28/20 07:39 ABG, PT/INR, D-dimer: ABG ABG pH 7.405 pH Units (7.350-7.450) 03/20/20 04:35 ABG pCO2 40.3 mm Hg 03/20/20 04:35 ABG pO2 68.3 mm Hg (80.0-90.0) L 03/20/20 04:35 ABG O2 Saturation 94.3 % (95.0-99.0) L 03/20/20 04:35 PT/INR, D-dimer PT 12.7 Sec. (12.2-14.9) 03/19/20 08:08 INR 0.94 (0.87-1.13) 03/19/20 08:08 Abnormal lab findings: Abnormal Labs 03/18/20 03/18/20 03/18/20 18:28 18:28 20:56 WBC 12.3 H RBC Hgb Hct Lymph % (Auto) 11.[address] % (Auto) 9.[address] [place] # 1.2 H Seg Neutrophils % 78.4 H Seg Neuts % (Manual) Lymphocytes % (Manual) Seg Neutrophils # 9.6 H Seg Neutrophils # Man Lymphocytes # (Manual) Monocytes # (Manual) Heparin Anti-Xa Level ABG pO2 ABG HCO3 ABG O2 Saturation ABG Base Excess ABG Hemoglobin Oxyhemoglobin Sodium 132 L Potassium Chloride 91.9 L Carbon Dioxide 20 L BUN Creatinine 1.4 H Glucose 406 H POC Glucose Hemoglobin A1c Calcium Total Creatine Kinase 2727 H 2492 H CK-MB (CK-2) 135.9 H 107.2 H CK-MB (CK-2) Rel Index 4.3 H Troponin T 5.110 H* 3.960 H* D Triglycerides 188 H LDL Cholesterol Direct 141 H 03/18/20 03/19/20 03/19/20 22:21 01:57 08:08 WBC RBC Hgb Hct Lymph % (Auto) [facility] % (Auto) [place] # Seg Neutrophils % Seg Neuts % (Manual) Lymphocytes % (Manual) Seg Neutrophils # Seg Neutrophils # Man Lymphocytes # (Manual) Monocytes # (Manual) Heparin Anti-Xa Level ABG pO2 ABG HCO3 ABG O2 Saturation ABG Base Excess ABG Hemoglobin Oxyhemoglobin Sodium Potassium Chloride Carbon Dioxide BUN Creatinine Glucose POC Glucose 317 H Hemoglobin A1c 11.0 H Calcium Total Creatine Kinase 7255 H CK-MB (CK-2) 79.3 H CK-MB (CK-2) Rel Index Troponin T 5.540 H* D Triglycerides LDL Cholesterol Direct 03/19/20 03/19/20 03/19/20 08:08 08:08 08:08 WBC 13.3 H RBC Hgb Hct Lymph % (Auto) 10.[address] % (Auto) 8.[address] # 1.1 H Seg Neutrophils % 80.0 H Seg Neuts % (Manual) Lymphocytes % (Manual) Seg Neutrophils # 10.6 H Seg Neutrophils # Man Lymphocytes # (Manual) Monocytes # (Manual) Heparin Anti-Xa Level 0.10 L ABG pO2 ABG HCO3 ABG O2 Saturation ABG Base Excess ABG Hemoglobin Oxyhemoglobin Sodium 133 L Potassium 5.1 H Chloride Carbon Dioxide 17 L BUN 23 H Creatinine Glucose 313 H POC Glucose Hemoglobin A1c Calcium Total Creatine Kinase CK-MB (CK-2) CK-MB (CK-2) Rel Index Troponin T Triglycerides LDL Cholesterol Direct 03/19/20 03/19/20 03/19/20 15:40 18:23 21:32 WBC RBC Hgb Hct Lymph % (Auto) [facility] % (Auto) [place] # Seg Neutrophils % Seg Neuts % (Manual) Lymphocytes % (Manual) Seg Neutrophils # Seg Neutrophils # Man Lymphocytes # (Manual) Monocytes # (Manual) Heparin Anti-Xa Level < 0.10 L ABG pO2 ABG HCO3 18.3 L ABG O2 Saturation ABG Base Excess -5.4 L ABG Hemoglobin 12.2 L Oxyhemoglobin 94.6 L Sodium Potassium Chloride Carbon Dioxide BUN Creatinine Glucose POC Glucose 348 H Hemoglobin A1c Calcium Total Creatine Kinase CK-MB (CK-2) CK-MB (CK-2) Rel Index Troponin T Triglycerides LDL Cholesterol Direct 03/20/20 03/20/20 03/20/20 04:35 05:12 05:12 WBC 11.1 H RBC 3.63 L Hgb 11.0 L Hct 32.7 L D Lymph % (Auto) [facility] % (Auto) 8.[address] [place] # 0.9 H Seg Neutrophils % 75.8 H Seg Neuts % (Manual) Lymphocytes % (Manual) Seg Neutrophils # 8.4 H Seg Neutrophils # Man Lymphocytes # (Manual) Monocytes # (Manual) Heparin Anti-Xa Level 0.28 L ABG pO2 68.3 L ABG HCO3 ABG O2 Saturation 94.3 L ABG Base Excess ABG Hemoglobin 7.1 L Oxyhemoglobin 92.3 L Sodium Potassium Chloride Carbon Dioxide BUN Creatinine Glucose POC Glucose Hemoglobin A1c Calcium Total Creatine Kinase CK-MB (CK-2) CK-MB (CK-2) Rel Index Troponin T Triglycerides LDL Cholesterol Direct 03/20/20 03/20/20 03/20/20 05:12 07:49 12:15 WBC RBC Hgb Hct Lymph % (Auto) [facility] % (Auto) [place] # Seg Neutrophils % Seg Neuts % (Manual) Lymphocytes % (Manual) Seg Neutrophils # Seg Neutrophils # Man Lymphocytes # (Manual) Monocytes # (Manual) Heparin Anti-Xa Level ABG pO2 ABG HCO3 ABG O2 Saturation ABG Base Excess ABG Hemoglobin Oxyhemoglobin Sodium 134 L Potassium Chloride Carbon Dioxide 21 L BUN 23 H Creatinine Glucose 275 H POC Glucose 294 H 357 H Hemoglobin A1c Calcium Total Creatine Kinase CK-MB (CK-2) CK-MB (CK-2) Rel Index Troponin T 3.200 H* D Triglycerides LDL Cholesterol Direct 03/20/20 03/20/20 03/21/20 17:16 22:08 04:44 WBC RBC Hgb Hct Lymph % (Auto) [facility] % (Auto) [facility] # Seg Neutrophils % Seg Neuts % (Manual) Lymphocytes % (Manual) Seg Neutrophils # Seg Neutrophils # Man Lymphocytes # (Manual) Monocytes # (Manual) Heparin Anti-Xa Level ABG pO2 ABG HCO3 ABG O2 Saturation ABG Base Excess ABG Hemoglobin Oxyhemoglobin Sodium 136 L Potassium Chloride Carbon Dioxide 18 L BUN 26 H Creatinine Glucose 266 H POC Glucose 327 H 292 H Hemoglobin A1c Calcium 8.1 L Total Creatine Kinase CK-MB (CK-2) CK-MB (CK-2) Rel Index Troponin T Triglycerides LDL Cholesterol Direct 03/21/20 03/21/20 03/21/20 07:50 12:25 15:53 WBC RBC Hgb Hct Lymph % (Auto) [facility] % (Auto) [facility] # Seg Neutrophils % Seg Neuts % (Manual) Lymphocytes % (Manual) Seg Neutrophils # Seg Neutrophils # Man Lymphocytes # (Manual) Monocytes # (Manual) Heparin Anti-Xa Level ABG pO2 ABG HCO3 ABG O2 Saturation ABG Base Excess ABG Hemoglobin Oxyhemoglobin Sodium Potassium Chloride Carbon Dioxide BUN Creatinine Glucose POC Glucose 271 H 314 H 436 H Hemoglobin A1c Calcium Total Creatine Kinase CK-MB (CK-2) CK-MB (CK-2) Rel Index Troponin T Triglycerides LDL Cholesterol Direct 03/21/20 03/21/20 03/22/20 17:44 21:55 04:33 WBC RBC Hgb 10.0 L Hct 29.4 L Lymph % (Auto) [facility] % (Auto) [facility] # Seg Neutrophils % Seg Neuts % (Manual) Lymphocytes % (Manual) Seg Neutrophils # Seg Neutrophils # Man Lymphocytes # (Manual) Monocytes # (Manual) Heparin Anti-Xa Level ABG pO2 ABG HCO3 ABG O2 Saturation ABG Base Excess ABG Hemoglobin Oxyhemoglobin Sodium Potassium Chloride Carbon Dioxide BUN Creatinine Glucose POC Glucose 362 H 329 H Hemoglobin A1c Calcium Total Creatine Kinase CK-MB (CK-2) CK-MB (CK-2) Rel Index Troponin T Triglycerides LDL Cholesterol Direct 03/22/20 03/22/20 03/22/20 08:57 14:12 19:57 WBC RBC Hgb Hct Lymph % (Auto) [facility] % (Auto) [facility] # Seg Neutrophils % Seg Neuts % (Manual) Lymphocytes % (Manual) Seg Neutrophils # Seg Neutrophils # Man Lymphocytes # (Manual) Monocytes # (Manual) Heparin Anti-Xa Level ABG pO2 ABG HCO3 ABG O2 Saturation ABG Base Excess ABG Hemoglobin Oxyhemoglobin Sodium Potassium Chloride Carbon Dioxide BUN Creatinine Glucose POC Glucose 284 H 319 H 356 H Hemoglobin A1c Calcium Total Creatine Kinase CK-MB (CK-2) CK-MB (CK-2) Rel Index Troponin T Triglycerides LDL Cholesterol Direct 03/22/20 03/23/20 03/23/20 21:44 08:18 12:46 WBC RBC Hgb Hct Lymph % (Auto) [facility] % (Auto) [facility] # Seg Neutrophils % Seg Neuts % (Manual) Lymphocytes % (Manual) Seg Neutrophils # Seg Neutrophils # Man Lymphocytes # (Manual) Monocytes # (Manual) Heparin Anti-Xa Level ABG pO2 ABG HCO3 ABG O2 Saturation ABG Base Excess ABG Hemoglobin Oxyhemoglobin Sodium Potassium Chloride Carbon Dioxide BUN Creatinine Glucose POC Glucose 336 H 215 H 262 H Hemoglobin A1c Calcium Total Creatine Kinase CK-MB (CK-2) CK-MB (CK-2) Rel Index Troponin T Triglycerides LDL Cholesterol Direct 03/23/20 03/23/20 03/24/20 15:56 22:05 02:35 WBC RBC Hgb 9.0 L Hct 25.8 L Lymph % (Auto) [facility] % (Auto) [facility] # Seg Neutrophils % Seg Neuts % (Manual) Lymphocytes % (Manual) Seg Neutrophils # Seg Neutrophils # Man Lymphocytes # (Manual) Monocytes # (Manual) Heparin Anti-Xa Level ABG pO2 ABG HCO3 ABG O2 Saturation ABG Base Excess ABG Hemoglobin Oxyhemoglobin Sodium Potassium Chloride Carbon Dioxide BUN Creatinine Glucose POC Glucose 246 H 322 H Hemoglobin A1c Calcium Total Creatine Kinase CK-MB (CK-2) CK-MB (CK-2) Rel Index Troponin T Triglycerides LDL Cholesterol Direct 03/24/20 03/24/20 03/24/20 07:38 11:45 16:02 WBC RBC Hgb Hct Lymph % (Auto) [facility] % (Auto) [facility] # Seg Neutrophils % Seg Neuts % (Manual) Lymphocytes % (Manual) Seg Neutrophils # Seg Neutrophils # Man Lymphocytes # (Manual) Monocytes # (Manual) Heparin Anti-Xa Level ABG pO2 ABG HCO3 ABG O2 Saturation ABG Base Excess ABG Hemoglobin Oxyhemoglobin Sodium Potassium Chloride Carbon Dioxide BUN Creatinine Glucose POC Glucose 289 H 257 H 150 H Hemoglobin A1c Calcium Total Creatine Kinase CK-MB (CK-2) CK-MB (CK-2) Rel Index Troponin T Triglycerides LDL Cholesterol Direct 03/24/20 03/25/20 03/25/20 21:24 04:06 07:39 WBC RBC Hgb Hct Lymph % (Auto) [facility] % (Auto) [facility] # Seg Neutrophils % Seg Neuts % (Manual) Lymphocytes % (Manual) Seg Neutrophils # Seg Neutrophils # Man Lymphocytes # (Manual) Monocytes # (Manual) Heparin Anti-Xa Level 0.10 L ABG pO2 ABG HCO3 ABG O2 Saturation ABG Base Excess ABG Hemoglobin Oxyhemoglobin Sodium Potassium Chloride Carbon Dioxide BUN Creatinine Glucose POC Glucose 228 H 332 H Hemoglobin A1c Calcium Total Creatine Kinase CK-MB (CK-2) CK-MB (CK-2) Rel Index Troponin T Triglycerides LDL Cholesterol Direct 03/25/20 03/25/20 03/25/20 08:13 09:30 11:59 WBC 13.1 H RBC 2.82 L Hgb 8.5 L Hct 26.1 L Lymph % (Auto) [facility] [facility] % (Auto) [facility] # Seg Neutrophils % Seg Neuts % (Manual) Lymphocytes % (Manual) Seg Neutrophils # Seg Neutrophils # Man Lymphocytes # (Manual) Monocytes # (Manual) Heparin Anti-Xa Level ABG pO2 ABG HCO3 ABG O2 Saturation ABG Base Excess ABG Hemoglobin Oxyhemoglobin Sodium 131 L Potassium 5.3 H Chloride Carbon Dioxide 20 L BUN 39 H Creatinine 1.4 H Glucose 313 H POC Glucose 273 H Hemoglobin A1c Calcium 8.1 L Total Creatine Kinase CK-MB (CK-2) CK-MB (CK-2) Rel Index Troponin T Triglycerides LDL Cholesterol Direct 03/25/20 03/25/20 03/25/20 13:54 15:58 18:21 WBC RBC Hgb Hct Lymph % (Auto) [facility] [facility] % (Auto) [facility] # Seg Neutrophils % Seg Neuts % (Manual) Lymphocytes % (Manual) Seg Neutrophils # Seg Neutrophils # Man Lymphocytes # (Manual) Monocytes # (Manual) Heparin Anti-Xa Level ABG pO2 ABG HCO3 ABG O2 Saturation ABG Base Excess ABG Hemoglobin Oxyhemoglobin Sodium Potassium Chloride Carbon Dioxide BUN Creatinine Glucose POC Glucose 246 H 235 H 185 H Hemoglobin A1c Calcium Total Creatine Kinase CK-MB (CK-2) CK-MB (CK-2) Rel Index Troponin T Triglycerides LDL Cholesterol Direct 03/25/20 03/26/20 03/26/20 20:45 05:15 06:59 WBC 17.4 H 15.6 H RBC 3.05 L 3.05 L Hgb 9.1 L 9.2 L Hct 28.2 L 27.9 L Lymph % (Auto) 8.[address] % (Auto) [facility] [facility] # 1.0 H Seg Neutrophils % 84.4 H 84.8 H Seg Neuts % (Manual) Lymphocytes % (Manual) Seg Neutrophils # 14.7 H 13.2 H Seg Neutrophils # Man Lymphocytes # (Manual) Monocytes # (Manual) Heparin Anti-Xa Level ABG pO2 ABG HCO3 ABG O2 Saturation ABG Base Excess ABG Hemoglobin Oxyhemoglobin Sodium Potassium Chloride Carbon Dioxide BUN Creatinine Glucose POC Glucose 178 H Hemoglobin A1c Calcium Total Creatine Kinase CK-MB (CK-2) CK-MB (CK-2) Rel Index Troponin T Triglycerides LDL Cholesterol Direct 03/26/20 03/26/20 03/26/20 06:59 07:43 11:56 WBC RBC Hgb Hct Lymph % (Auto) [facility] [facility] % (Auto) [facility] [facility] # Seg Neutrophils % Seg Neuts % (Manual) Lymphocytes % (Manual) Seg Neutrophils # Seg Neutrophils # Man Lymphocytes # (Manual) Monocytes # (Manual) Heparin Anti-Xa Level ABG pO2 ABG HCO3 ABG O2 Saturation ABG Base Excess ABG Hemoglobin Oxyhemoglobin Sodium 131 L Potassium 5.8 H Chloride Carbon Dioxide 16 L BUN 42 H Creatinine 1.4 H Glucose 163 H POC Glucose 170 H 198 H Hemoglobin A1c Calcium 8.0 L Total Creatine Kinase CK-MB (CK-2) CK-MB (CK-2) Rel Index Troponin T Triglycerides LDL Cholesterol Direct 03/26/20 03/26/20 03/26/20 13:58 16:16 21:00 WBC RBC Hgb Hct Lymph % (Auto) [facility] [facility] % (Auto) [facility] [facility] # Seg Neutrophils % Seg Neuts % (Manual) Lymphocytes % (Manual) Seg Neutrophils # Seg Neutrophils # Man Lymphocytes # (Manual) Monocytes # (Manual) Heparin Anti-Xa Level ABG pO2 ABG HCO3 ABG O2 Saturation ABG Base Excess ABG Hemoglobin Oxyhemoglobin Sodium 128 L Potassium 6.0 H Chloride Carbon Dioxide 15 L BUN 45 H Creatinine 1.4 H Glucose 190 H POC Glucose 184 H 192 H Hemoglobin A1c Calcium 8.2 L Total Creatine Kinase CK-MB (CK-2) CK-MB (CK-2) Rel Index Troponin T Triglycerides LDL Cholesterol Direct 03/27/20 03/27/20 03/27/20 08:32 11:51 14:39 WBC 22.9 H RBC 2.68 L Hgb 7.9 L Hct 24.7 L Lymph % (Auto) [facility] % (Auto) [facility] [facility] # Seg Neutrophils % Seg Neuts % (Manual) Lymphocytes % (Manual) Seg Neutrophils # Seg Neutrophils # Man Lymphocytes # (Manual) Monocytes # (Manual) Heparin Anti-Xa Level ABG pO2 ABG HCO3 ABG O2 Saturation ABG Base Excess ABG Hemoglobin Oxyhemoglobin Sodium Potassium Chloride Carbon Dioxide BUN Creatinine Glucose POC Glucose 233 H 252 H Hemoglobin A1c Calcium Total Creatine Kinase CK-MB (CK-2) CK-MB (CK-2) Rel Index Troponin T Triglycerides LDL Cholesterol Direct 03/27/20 03/27/20 03/27/20 14:39 15:19 21:35 WBC RBC Hgb Hct Lymph % (Auto) [facility] % (Auto) [facility] [facility] # Seg Neutrophils % Seg Neuts % (Manual) Lymphocytes % (Manual) Seg Neutrophils # Seg Neutrophils # Man Lymphocytes # (Manual) Monocytes # (Manual) Heparin Anti-Xa Level ABG pO2 ABG HCO3 ABG O2 Saturation ABG Base Excess ABG Hemoglobin Oxyhemoglobin Sodium 133 L Potassium 5.5 H Chloride Carbon Dioxide 16 L BUN 46 H Creatinine 1.4 H Glucose 225 H POC Glucose 239 H 202 H Hemoglobin A1c Calcium 8.2 L Total Creatine Kinase CK-MB (CK-2) CK-MB (CK-2) Rel Index Troponin T Triglycerides LDL Cholesterol Direct 03/28/20 03/28/20 03/28/20 07:39 07:39 08:36 WBC 22.4 H RBC 2.71 L Hgb 7.9 L Hct 24.5 L Lymph % (Auto) [facility] % (Auto) [facility] [facility] # Seg Neutrophils % Seg Neuts % (Manual) 88.0 H Lymphocytes % (Manual) 5.0 L Seg Neutrophils # Seg Neutrophils # Man 19.7 H Lymphocytes # (Manual) 1.1 L Monocytes # (Manual) 1.6 H Heparin Anti-Xa Level ABG pO2 ABG HCO3 ABG O2 Saturation ABG Base Excess ABG Hemoglobin Oxyhemoglobin Sodium 134 L Potassium Chloride Carbon Dioxide 19 L BUN 47 H Creatinine Glucose 240 H POC Glucose 253 H Hemoglobin A1c Calcium 7.8 L Total Creatine Kinase CK-MB (CK-2) CK-MB (CK-2) Rel Index Troponin T Triglycerides LDL Cholesterol Direct 03/28/20 11:54 WBC RBC Hgb Hct Lymph % (Auto) [facility] % (Auto) [facility] [facility] # Seg Neutrophils % Seg Neuts % (Manual) Lymphocytes % (Manual) Seg Neutrophils # Seg Neutrophils # Man Lymphocytes # (Manual) Monocytes # (Manual) Heparin Anti-Xa Level ABG pO2 ABG HCO3 ABG O2 Saturation ABG Base Excess ABG Hemoglobin Oxyhemoglobin Sodium Potassium Chloride Carbon Dioxide BUN Creatinine Glucose POC Glucose 306 H Hemoglobin A1c Calcium Total Creatine Kinase CK-MB (CK-2) CK-MB (CK-2) Rel Index Troponin T Triglycerides LDL Cholesterol Direct Allied health notes reviewed: nursing
[2020-03-28] MEDS: PIPERACIL/TAZOBACTA 4.5/NS 100 4.5 GM/100 ML VIAL IV SCH ×2 (15:01→21:13)
--- NOTE | 2020-03-28 16:03 | Progress Note ---
Assessment and Plan Assessment and plan: --Hyperkalemia; Current Visit: Yes Status: Acute calcium gluconate, Kayexalate, Follow a.m. labs --Acute left lower extremity ischemia Current Visit: Yes Status: Acute 03/19/2020 status post endovascular revascularization. 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 Management per cardiology Per cardiology non-STEMI 2 Elevated troponins at the time of admission --Acute systolic CHF; EF 30-35%% Current Visit: Yes Status: Acute Beta-blockers, BIJAN inhibitor, diuretics Improved -- Hyperglycemia due to diabetes mellitus Current Visit: Yes Status: Acute Accu-Chek sliding scale coverage ADA diet Long-acting insulin as needed, H6n---73.0 --Nicotine dependence Current Visit: Yes Status: Acute Smoking cessation nicotine patch as needed --DVT prophylaxis Current Visit: Yes Status: Acute Patient currently on anticoagulation. -- Full code status Current Visit: Yes Status: Acute Patient is on heparin drip Discharge planning issues Acute rehab placement, pending insurance authorization Monitor closely and adjust management as needed Plan of care reviewed with the patient and his nurse History Interval history: I have seen and examined the patient at the bedside this afternoon Patient's chart and medications reviewed Patient complains of some pain, surgical wound is intact Patient is afebrile, vital signs reviewed Hospitalist Physical - Constitutional Vitals: Temp Pulse Resp BP Pulse Ox 98.6 F 89 20 100/72 100 03/28/20 08:23 03/28/20 10:44 03/28/20 08:23 03/28/20 10:44 03/28/20 08:23 General appearance: Present: no acute distress, well-nourished - EENT Eyes: Present: PERRL, EOM intact - Neck Neck: Present: supple, normal ROM - Respiratory Respiratory effort: normal Respiratory: negative: rales, rhonchi, wheezing - Cardiovascular Rhythm: regular Heart Sounds: Present: S1 & S2 - Extremities Extremities: no ischemia, No edema, abnormal (Left BKA) - Abdominal General gastrointestinal: soft, non-tender, non-distended, normal bowel sounds - Integumentary Integumentary: Present: clear, warm - Psychiatric Psychiatric: appropriate mood/affect, cooperative - Neurologic Neurologic: moves all extremities HEART Score - HEART Score Troponin: Troponin T 3.200 ng/mL (0.00-0.029) H* D 03/20/20 05:12 Results - Labs CBC & Chem 7: 03/28/20 07:39 03/28/20 07:39 Labs: Laboratory Last Values WBC 22.4 K/mm3 (4.5-11.0) H 03/28/20 07:39 RBC 2.71 M/mm3 (3.65-5.03) L 03/28/20 07:39 Hgb 7.9 gm/dl (11.8-15.2) L 03/28/20 07:39 Hct 24.5 % (35.5-45.6) L 03/28/20 07:39 MCV 91 fl (84-94) 03/28/20 07:39 MCH 29 pg (28-32) 03/28/20 07:39 MCHC 32 % (32-34) 03/28/20 07:39 RDW 14.0 % (13.2-15.2) 03/28/20 07:39 Plt Count 348 K/mm3 (140-440) 03/28/20 07:39 Lymph % (Auto) 8.9 % (13.4-35.0) L 03/26/20 06:59 [place] % (Auto) 5.0 % (0.0-7.3) 03/26/20 06:59 Eos % (Auto) 0.6 % (0.0-4.3) 03/26/20 06:59 Baso % (Auto) 0.7 % (0.0-1.8) 03/26/20 06:59 Lymph # 1.4 K/mm3 (1.2-5.4) 03/26/20 06:59 [place] # 0.8 K/mm3 (0.0-0.8) 03/26/20 06:59 Eos # 0.1 K/mm3 (0.0-0.4) 03/26/20 06:59 Baso # 0.1 K/mm3 (0.0-0.1) 03/26/20 06:59 Add Manual Diff Complete 03/28/20 07:39 Total Counted 100 03/28/20 07:39 Seg Neutrophils % 84.8 % (40.0-70.0) H 03/26/20 06:59 Seg Neuts % (Manual) 88.0 % (40.0-70.0) H 03/28/20 07:39 Band Neutrophils % 0 % 03/28/20 07:39 Lymphocytes % (Manual) 5.0 % (13.4-35.0) L 03/28/20 07:39 Reactive Lymphs % (Man) 0 % 03/28/20 07:39 Monocytes % (Manual) 7.0 % (0.0-7.3) 03/28/20 07:39 Eosinophils % (Manual) 0 % (0.0-4.3) 03/28/20 07:39 Basophils % (Manual) 0 % (0.0-1.8) 03/28/20 07:39 Metamyelocytes % 0 % 03/28/20 07:39 Myelocytes % 0 % 03/28/20 07:39 Promyelocytes % 0 % 03/28/20 07:39 Blast Cells % 0 % 03/28/20 07:39 Nucleated RBC % Not Reportable 03/28/20 07:39 Seg Neutrophils # 13.2 K/mm3 (1.8-7.7) H 03/26/20 06:59 Seg Neutrophils # Man 19.7 K/mm3 (1.8-7.7) H 03/28/20 07:39 Band Neutrophils # 0.0 K/mm3 03/28/20 07:39 Lymphocytes # (Manual) 1.1 K/mm3 (1.2-5.4) L 03/28/20 07:39 Abs React Lymphs (Man) 0.0 K/mm3 03/28/20 07:39 Monocytes # (Manual) 1.6 K/mm3 (0.0-0.8) H 03/28/20 07:39 Eosinophils # (Manual) 0.0 K/mm3 (0.0-0.4) 03/28/20 07:39 Basophils # (Manual) 0.0 K/mm3 (0.0-0.1) 03/28/20 07:39 Metamyelocytes # 0.0 K/mm3 03/28/20 07:39 Myelocytes # 0.0 K/mm3 03/28/20 07:39 Promyelocytes # 0.0 K/mm3 03/28/20 07:39 Blast Cells # 0.0 K/mm3 03/28/20 07:39 WBC Morphology Not Reportable 03/28/20 07:39 Hypersegmented Neuts Not Reportable 03/28/20 07:39 Hyposegmented Neuts Not Reportable 03/28/20 07:39 Hypogranular Neuts Not Reportable 03/28/20 07:39 Smudge Cells Not Reportable 03/28/20 07:39 Toxic Granulation Not Reportable 03/28/20 07:39 Toxic Vacuolation Not Reportable 03/28/20 07:39 Dohle Bodies Not Reportable 03/28/20 07:39 Pelger-Huet Anomaly Not Reportable 03/28/20 07:39 Ananya Rods Not Reportable 03/28/20 07:39 Platelet Estimate Consistent w auto 03/28/20 07:39 Clumped Platelets Not Reportable 03/28/20 07:39 Plt Clumps, EDTA Not Reportable 03/28/20 07:39 Large Platelets Not Reportable 03/28/20 07:39 Giant Platelets Not Reportable 03/28/20 07:39 Platelet Satelliting Not Reportable 03/28/20 07:39 Plt Morphology Comment Not Reportable 03/28/20 07:39 RBC Morphology Not Reportable 03/28/20 07:39 Dimorphic RBCs Not Reportable 03/28/20 07:39 Polychromasia Not Reportable 03/28/20 07:39 Hypochromasia Not Reportable 03/28/20 07:39 Poikilocytosis Not Reportable 03/28/20 07:39 Anisocytosis Few 03/28/20 07:39 Microcytosis Few 03/28/20 07:39 Macrocytosis Not Reportable 03/28/20 07:39 Spherocytes Not Reportable 03/28/20 07:39 Pappenheimer Bodies Not Reportable 03/28/20 07:39 Sickle Cells Not Reportable 03/28/20 07:39 Target Cells Not Reportable 03/28/20 07:39 Tear Drop Cells Not Reportable 03/28/20 07:39 Ovalocytes Not Reportable 03/28/20 07:39 Helmet Cells Not Reportable 03/28/20 07:39 [place] Bodies Not Reportable 03/28/20 07:39 [place] Rings Not Reportable 03/28/20 07:39 [place] Cells Not Reportable 03/28/20 07:39 Bite Cells Not Reportable 03/28/20 07:39 Crenated Cell Not Reportable 03/28/20 07:39 Elliptocytes Not Reportable 03/28/20 07:39 Acanthocytes (Spur) Not Reportable 03/28/20 07:39 Rouleaux Not Reportable 03/28/20 07:39 Hemoglobin C Crystals Not Reportable 03/28/20 07:39 Schistocytes Not Reportable 03/28/20 07:39 Malaria parasites Not Reportable 03/28/20 07:39 Steven Bodies Not Reportable 03/28/20 07:39 Hem Pathologist Commnt No 03/28/20 07:39 PT 12.7 Sec. (12.2-14.9) 03/19/20 08:08 INR 0.94 (0.87-1.13) 03/19/20 08:08 APTT 27.7 Sec. (24.2-36.6) 03/18/20 18:28 Heparin Anti-Xa Level 0.10 U.I./ml (0.3-0.7) L 03/25/20 04:06 ABG pH 7.405 pH Units (7.350-7.450) 03/20/20 04:35 ABG pCO2 40.3 mm Hg 03/20/20 04:35 ABG pO2 68.3 mm Hg (80.0-90.0) L 03/20/20 04:35 ABG HCO3 24.6 mmol/L (20.0-26.0) 03/20/20 04:35 ABG O2 Saturation 94.3 % (95.0-99.0) L 03/20/20 04:35 ABG O2 Content 9.3 (0.0-44) 03/20/20 04:35 ABG Base Excess -0.1 mmol/L (-2.0-3.0) 03/20/20 04:35 ABG Hemoglobin 7.1 gm/dl (14.0-18.0) L 03/20/20 04:35 ABG Carboxyhemoglobin 1.8 % (0.0-5.0) 03/20/20 04:35 ABG Methemoglobin 0.4 % (0.0-1.5) 03/20/20 04:35 Oxyhemoglobin 92.3 % (95.0-99.0) L 03/20/20 04:35 FiO2 35 % 03/20/20 04:35 Sodium 134 mmol/L (137-145) L 03/28/20 07:39 Potassium 4.9 mmol/L (3.6-5.0) 03/28/20 07:39 Chloride 100.1 mmol/L (98-107) 03/28/20 07:39 Carbon Dioxide 19 mmol/L (22-30) L 03/28/20 07:39 Anion Gap 20 mmol/L 03/28/20 07:39 BUN 47 mg/dL (9-20) H 03/28/20 07:39 Creatinine 1.3 mg/dL (0.8-1.3) 03/28/20 07:39 Estimated GFR 57 ml/min 03/28/20 07:39 BUN/Creatinine Ratio 36 % 03/28/20 07:39 Glucose 240 mg/dL (75-100) H 03/28/20 07:39 POC Glucose 306 (70-105) H 03/28/20 11:54 Hemoglobin A1c 11.0 % (4-6) H 03/18/20 22:21 Calcium 7.8 mg/dL (8.4-10.2) L 03/28/20 07:39 Magnesium 2.20 mg/dL (1.7-2.3) 03/28/20 07:39 Total Creatine Kinase 7255 units/L (55-170) H 03/19/20 08:08 CK-MB (CK-2) 79.3 ng/mL (0.0-4.0) H 03/19/20 08:08 CK-MB (CK-2) Rel Index 1.0 (0-4) 03/19/20 08:08 Troponin T 3.200 ng/mL (0.00-0.029) H* D 03/20/20 05:12 Triglycerides 188 mg/dL (2-149) H 03/18/20 18:28 Cholesterol 199 mg/dL (50-199) 03/18/20 18:28 LDL Cholesterol Direct 141 mg/dL (50-130) H 03/18/20 18:28 HDL Cholesterol 47 mg/dL (40-59) 03/18/20 18:28 Cholesterol/HDL Ratio 4.23 % 03/18/20 18:28 Blood Type B POSITIVE 03/25/20 11:42 Antibody Screen Negative 03/25/20 11:42 - Diagnostic Impressions Diagnostic Impressions: Echocardiogram 03/19/20 12:49 Transthoracic Echocardiogram Indication: CAD and Abnormal EKG HR: 110 Conclusions *The study is technically limited due to patient body habitus. *The left ventricular chamber size is mildly dilated. *Global left ventricular systolic function is moderate to severely decreased. *The estimated ejection fraction is 30-35%. *The basal inferolateral, and basal inferior wall segments are normal. *The mid inferolateral, mid inferior, apical lateral, and apical inferior wall segments are akinetic. *The left atrial chamber size is normal. Findings Procedure Info: The study is technically limited due to patient body habitus. The study was technically limited due to the patient's inability to lay in the left lateral decubitus position. Left Ventricle: The left ventricular chamber size is mildly dilated. Global left ventricular systolic function is moderate to severely decreased. The estimated ejection fraction is 30-35%. The basal inferolateral, and basal inferior wall segments are normal. The mid inferolateral, mid inferior, apical lateral, and apical inferior wall segments are akinetic. Left Atrium: The left atrial chamber size is normal. Right Ventricle: The right ventricle is not well visualized. Right Atrium: The right atrium is not well visualized. The right atrial cavity size is normal. Aortic Valve: The aortic valve is trileaflet. Mitral Valve: The mitral valve leaflets are moderately thickened. There is mild mitral regurgitation. Tricuspid Valve: The tricuspid valve is not well visualized. There is trace tricuspid regurgitation. Pulmonic Valve: The pulmonic valve is not well visualized. Pericardium: There is no pericardial effusion. Aorta: The aorta appears normal. Venous: The venous system is not well visualized. Contrast: Definity was used to optimize study. Measurements Chambers 2D Name Value Normal Range IVSd (2D) 0.94 cm (0.6 - 1.1) LVPWd (2D) 0.94 cm (0.6 - 1.1) LVIDd (2D) 6.15 cm (3.7 - 5.6) LVIDs (2D) 5.2 cm (2 - 3.8) LV FS (2D) 15.5 % - EF Teichholz (2D) 32.08 % - Ao root diameter (2D) 2.77 cm (2 - 3.7) Volumes/Mass Name Value Normal Range LA ESV SP 4CH (A/L) 73.77 ml - LA ESV SP 2CH (A/L) 66.45 ml - LA ESV BP (A/L) 71.61 ml - LA ESV BP (A/L) index 30.6 ml/m2 - LA ESV SP 4CH (MOD) 72.55 ml - LA ESV SP 2CH (MOD) 65.34 ml - LA ESV BP (MOD) 70.27 ml - LA ESV BP (MOD) index 30.03 ml/m2 - Diastolic/Systolic Function Name Value Normal Range MV E-wave Vmax 0.85 m/sec - MV deceleration time 69.14 msec - MV A-wave Vmax 0.89 m/sec - MV E:A ratio 0.95 ratio - Aortic Valve Name Value Normal Range AV Vmax 0.96 m/sec - AV VTI 11.83 cm - AV peak gradient 3.68 mmHg - AV mean gradient 1.6 mmHg - LVOT diameter 2.19 cm - LVOT Vmax 0.86 m/sec - LVOT VTI 13.33 cm - LVOT peak gradient 2.96 mmHg - LVOT mean gradient 1.48 mmHg - SV LVOT 50.08 ml - DEYA (continuity Vmax) 3.37 cm2 - DEYA (continuity VTI) 4.23 cm2 - Ascending Ao 2.92 cm - Pulmonic Valve/Qp:Qs Name Value Normal Range PV Vmax 1.08 m/sec - PV VTI 15.88 cm - PV peak gradient 4.7 mmHg - PV mean gradient 2.18 mmHg - RVOT Vmax 0.82 m/sec - RVOT VTI 11.48 cm - RVOT peak gradient 2.67 mmHg - [place] BAS Not Seen BA Not Seen BAL Not Seen BAY Normal BI Normal BIS Not Seen MAS Not Seen MA Not Seen MAL Not Seen MIL Akinetic MO Akinetic MIS Not Seen Not Seen AA Not Seen AL Akinetic AI Akinetic APEX Not Seen Tyson/IV: Voiding Method Urinal IV Catheter Type [Right Peripheral IV Forearm] IV Catheter Type [Right INT / Saline Lock Antecubital] IV Catheter Type [Left Upper INT / Saline Lock arm] IV Catheter Type [Left INT / Saline Lock Antecubital] Active Medications - Current Medications Current Medications: Generic Name Dose Route Start Last Admin Trade Name Freq PRN Reason Stop Dose Admin Acetaminophen/Hydrocodone Bitart 2 each 03/22/20 17:18 03/28/20 15:00 [place] 5/325 PO 2 each Q4H PRN Administration Pain, Moderate (4-6) Apixaban 5 mg 03/26/20 22:00 03/28/20 10:44 Eliquis PO 5 mg Q12HR LOI Administration Protocol Arformoterol Tartrate 15 mcg 03/19/20 20:00 03/28/20 08:12 Brovana Nebu IH 15 mcg Q12HRT LOI Administration Atorvastatin Calcium 40 mg 03/19/20 22:00 03/27/20 22:13 Lipitor PO 40 mg QHS LOI Administration Budesonide 0.5 mg 03/19/20 20:00 03/28/20 08:12 Pulmicort IH 0.5 mg Q12HRT LOI Administration Clopidogrel Bisulfate 75 mg 03/19/20 10:00 03/28/20 10:44 Plavix PO 75 mg QDAY LOI Administration Dextrose 50 ml 03/18/20 22:21 D50w (25gm) Syringe IV Q30MIN PRN Hypoglycemia Protocol Diphenhydramine HCl 25 mg 03/19/20 12:44 Benadryl IV Q4H PRN Itching Hydromorphone HCl 0.5 mg 03/25/20 13:48 Dilaudid IV Q10MIN PRN Pain , Severe (7-10) Hydromorphone/Sodium Chloride 0 mg 03/19/20 13:00 03/26/20 10:51 Dilaudid Tie Puller 6mg/30ml IV 6 cart DIRECT LOI Administration Protocol Piperacillin Sod/Tazobactam Sod 4.5 gm in 100 mls @ 200 mls/hr 03/28/20 14:00 03/28/20 15:01 Zosyn/Ns 4.5gm/100ml IV 200 mls/hr Q8HR LOI Administration Insulin Glargine 25 units 03/22/20 22:00 03/27/20 22:15 Lantus SUB-Q 25 units QHS LOI Administration Insulin Human Lispro 0 unit 03/20/20 16:30 03/28/20 12:34 Humalog SUB-Q Not Given ACHS [facility] Protocol Insulin Human Lispro 8 unit 03/28/20 11:30 03/28/20 12:36 Humalog SUB-Q 8 unit AC LOI Administration Magnesium Hydroxide 30 ml 03/18/20 22:21 Milk Of Magnesia PO Q4H PRN Constipation Metoprolol Tartrate 50 mg 03/19/20 22:00 03/28/20 10:44 Metoprolol PO 50 mg BID LOI Administration Naloxone HCl 0.1 mg 03/19/20 12:44 Naloxone IV Q2MIN PRN Res Rate </= 8 or 02 SAT < 92% Ondansetron HCl 4 mg 03/18/20 22:21 Zofran IV Q8H PRN Nausea And Vomiting Pantoprazole Sodium 40 mg 03/20/20 10:00 03/28/20 10:44 Protonix PO 40 mg BID LOI Administration Pregabalin 150 mg 03/22/20 22:00 03/28/20 10:44 Pregabalin PO 150 mg BID LOI Administration Sodium Chloride 10 ml 03/19/20 10:00 03/28/20 10:45 Sodium Chloride Flush Syringe 10 Ml IV 10 ml BID LOI Administration Sodium Chloride 10 ml 03/18/20 22:21 03/22/20 19:52 Sodium Chloride Flush Syringe 10 Ml IV 10 ml PRN PRN Administration LINE FLUSH Nutrition/Malnutrition Assess - Dietary Evaluation Nutrition/Malnutrition Findings: Nutrition Notes Start: 03/19/20 11:59 Freq: Status: Active Protocol: Document 03/28/20 13:11 [facility] (Rec: 03/28/20 13:21 [facility] [id number]) Nutrition Notes Initial or Follow up Assessment Current Diagnosis COPD,Diabetes Other Pertinent Diagnosis (L) LE ischemia s/p (L) BKA, STARR, NSTEMI Current Diet Cardiac/Consistent CHO Labs/Tests Na 134 (likely 136-137) BG 240 BUN 47 Pertinent Medications 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 He says his appetite is " not the best", but he eats. PO intakes vary from 25-100%; he denies need for ONS at this time. He verbalizes a few food preferences. Burn Absent Trauma Absent Current % PO Fair (50-74%) Minimum of two criteria No #1 Nutrition Diagnosis Increased nutrient needs ( specify in comment below) Etiology increased demands of healing As Evidenced by Signs and Symptoms s/p recent BKA Is patient on ventilator? No Is Patient Ambulatory and/or Out of Bed No REE-([place]-confined to bed) 2529.804 Kcal/Kg value to use for calculation 17 Approximate Energy Requirements Using 2094 kcal/Kg Calculation Used for Recommendations Kcal/kg Additional Notes Pro needs 1-1.2g/kg adjBW (not for amputation): 102-122g/day Fluid needs 1ml/kcal Nutrition Intervention Change Diet Order: Continue current diet order; honor food preferences Goal #1 PO intakes to meet at least 75 % energy and pro needs Goal #2 Healing of surgical site Anticipated Discharge Needs: Heart-healthy/CHO-controlled diet Follow-Up By: 04/02/20 Additional Comments F/U: intakes
[2020-03-28] MEDS: INSULIN GLARGINE 100 UNITS/ML SUB-Q SCH (21:13)
[2020-03-28] MEDS: SODIUM CHLORIDE 0.9% 500 ML 500 ML IV SCH (21:53)
[2020-03-28] MEDS: HYDROmorphone/NS 6 MG/30 ML PCA INJ IV SCH (22:31)
[2020-03-29] MEDS: PIPERACIL/TAZOBACTA 4.5/NS 100 4.5 GM/100 ML VIAL IV SCH ×3 (05:20→22:45)
[2020-03-29] MEDS: ARFORMOTEROL 15 MCG/2 ML NEBU IH SCH ×2 (07:31→19:44)
[2020-03-29] MEDS: BUDESONIDE 0.5 MG/2 ML NEBU IH SCH ×2 (07:31→19:44)
[2020-03-29] MEDS: [UNRECOGNIZED DRUG - REMARK] SUB-Q SCH ×4 (09:11→22:53)
[2020-03-29] MEDS: INSULIN LISPRO 100 UNIT/ML VIAL 3 mL SUB-Q SCH ×3 (09:55→17:49)
--- NOTE | 2020-03-29 10:48 | Progress Note ---
Assessment and Plan Assessment and plan: --Hyperkalemia; resolved Current Visit: Yes Status: Acute Follow electrolytes --Acute left lower extremity ischemia Current Visit: Yes Status: Acute 03/19/2020 status post endovascular revascularization. 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 Management per cardiology Per cardiology non-STEMI 2 Elevated troponins at the time of admission --Acute systolic CHF; EF 30-35%% Current Visit: Yes Status: Acute Beta-blockers, BIJAN inhibitor, diuretics Improved -- Hyperglycemia due to diabetes mellitus Current Visit: Yes Status: Acute Accu-Chek sliding scale coverage ADA diet Long-acting insulin as needed, A8u---07.0 --Nicotine dependence Current Visit: Yes Status: Acute Smoking cessation nicotine patch as needed --DVT prophylaxis Current Visit: Yes Status: Acute Patient currently on anticoagulation. -- Full code status Current Visit: Yes Status: Acute Patient is on heparin drip Discharge planning issues Acute rehab placement, pending insurance authorization Monitor closely and adjust management as needed Plan of care reviewed with the patient and his nurse History Interval history: I have seen and examined the patient at the bedside No new complaints Vital signs noted, awaiting acute rehab placement Hospitalist Physical - Constitutional Vitals: Temp Pulse Resp BP Pulse Ox 98.9 F 77 20 90/53 98 03/29/20 08:20 03/29/20 08:20 03/29/20 08:20 03/29/20 08:20 03/29/20 08:20 General appearance: Present: no acute distress, well-nourished - EENT Eyes: Present: PERRL, EOM intact - Neck Neck: Present: supple, normal ROM - Respiratory Respiratory effort: normal Respiratory: bilateral: diminished, negative: rales, rhonchi, wheezing - Cardiovascular Rhythm: regular Heart Sounds: Present: S1 & S2 - Extremities Extremities: no ischemia, No edema, abnormal (Left BKA) Extremity abnormal: edema, other (Dressing in place) - Abdominal General gastrointestinal: soft, non-tender, non-distended, normal bowel sounds - Integumentary Integumentary: Present: clear, warm - Psychiatric Psychiatric: appropriate mood/affect, cooperative - Neurologic Neurologic: moves all extremities HEART Score - HEART Score Troponin: Troponin T 3.200 ng/mL (0.00-0.029) H* D 03/20/20 05:12 Results - Labs CBC & Chem 7: 03/29/20 14:19 03/28/20 07:39 Labs: Laboratory Last Values WBC 22.4 K/mm3 (4.5-11.0) H 03/28/20 07:39 RBC 2.71 M/mm3 (3.65-5.03) L 03/28/20 07:39 Hgb 7.9 gm/dl (11.8-15.2) L 03/28/20 07:39 Hct 24.5 % (35.5-45.6) L 03/28/20 07:39 MCV 91 fl (84-94) 03/28/20 07:39 MCH 29 pg (28-32) 03/28/20 07:39 MCHC 32 % (32-34) 03/28/20 07:39 RDW 14.0 % (13.2-15.2) 03/28/20 07:39 Plt Count 348 K/mm3 (140-440) 03/28/20 07:39 Lymph % (Auto) 8.9 % (13.4-35.0) L 03/26/20 06:59 [place] % (Auto) 5.0 % (0.0-7.3) 03/26/20 06:59 Eos % (Auto) 0.6 % (0.0-4.3) 03/26/20 06:59 Baso % (Auto) 0.7 % (0.0-1.8) 03/26/20 06:59 Lymph # 1.4 K/mm3 (1.2-5.4) 03/26/20 06:59 [place] # 0.8 K/mm3 (0.0-0.8) 03/26/20 06:59 Eos # 0.1 K/mm3 (0.0-0.4) 03/26/20 06:59 Baso # 0.1 K/mm3 (0.0-0.1) 03/26/20 06:59 Add Manual Diff Complete 03/28/20 07:39 Total Counted 100 03/28/20 07:39 Seg Neutrophils % 84.8 % (40.0-70.0) H 03/26/20 06:59 Seg Neuts % (Manual) 88.0 % (40.0-70.0) H 03/28/20 07:39 Band Neutrophils % 0 % 03/28/20 07:39 Lymphocytes % (Manual) 5.0 % (13.4-35.0) L 03/28/20 07:39 Reactive Lymphs % (Man) 0 % 03/28/20 07:39 Monocytes % (Manual) 7.0 % (0.0-7.3) 03/28/20 07:39 Eosinophils % (Manual) 0 % (0.0-4.3) 03/28/20 07:39 Basophils % (Manual) 0 % (0.0-1.8) 03/28/20 07:39 Metamyelocytes % 0 % 03/28/20 07:39 Myelocytes % 0 % 03/28/20 07:39 Promyelocytes % 0 % 03/28/20 07:39 Blast Cells % 0 % 03/28/20 07:39 Nucleated RBC % Not Reportable 03/28/20 07:39 Seg Neutrophils # 13.2 K/mm3 (1.8-7.7) H 03/26/20 06:59 Seg Neutrophils # Man 19.7 K/mm3 (1.8-7.7) H 03/28/20 07:39 Band Neutrophils # 0.0 K/mm3 03/28/20 07:39 Lymphocytes # (Manual) 1.1 K/mm3 (1.2-5.4) L 03/28/20 07:39 Abs React Lymphs (Man) 0.0 K/mm3 03/28/20 07:39 Monocytes # (Manual) 1.6 K/mm3 (0.0-0.8) H 03/28/20 07:39 Eosinophils # (Manual) 0.0 K/mm3 (0.0-0.4) 03/28/20 07:39 Basophils # (Manual) 0.0 K/mm3 (0.0-0.1) 03/28/20 07:39 Metamyelocytes # 0.0 K/mm3 03/28/20 07:39 Myelocytes # 0.0 K/mm3 03/28/20 07:39 Promyelocytes # 0.0 K/mm3 03/28/20 07:39 Blast Cells # 0.0 K/mm3 03/28/20 07:39 WBC Morphology Not Reportable 03/28/20 07:39 Hypersegmented Neuts Not Reportable 03/28/20 07:39 Hyposegmented Neuts Not Reportable 03/28/20 07:39 Hypogranular Neuts Not Reportable 03/28/20 07:39 Smudge Cells Not Reportable 03/28/20 07:39 Toxic Granulation Not Reportable 03/28/20 07:39 Toxic Vacuolation Not Reportable 03/28/20 07:39 Dohle Bodies Not Reportable 03/28/20 07:39 Pelger-Huet Anomaly Not Reportable 03/28/20 07:39 Ananya Rods Not Reportable 03/28/20 07:39 Platelet Estimate Consistent w auto 03/28/20 07:39 Clumped Platelets Not Reportable 03/28/20 07:39 Plt Clumps, EDTA Not Reportable 03/28/20 07:39 Large Platelets Not Reportable 03/28/20 07:39 Giant Platelets Not Reportable 03/28/20 07:39 Platelet Satelliting Not Reportable 03/28/20 07:39 Plt Morphology Comment Not Reportable 03/28/20 07:39 RBC Morphology Not Reportable 03/28/20 07:39 Dimorphic RBCs Not Reportable 03/28/20 07:39 Polychromasia Not Reportable 03/28/20 07:39 Hypochromasia Not Reportable 03/28/20 07:39 Poikilocytosis Not Reportable 03/28/20 07:39 Anisocytosis Few 03/28/20 07:39 Microcytosis Few 03/28/20 07:39 Macrocytosis Not Reportable 03/28/20 07:39 Spherocytes Not Reportable 03/28/20 07:39 Pappenheimer Bodies Not Reportable 03/28/20 07:39 Sickle Cells Not Reportable 03/28/20 07:39 Target Cells Not Reportable 03/28/20 07:39 Tear Drop Cells Not Reportable 03/28/20 07:39 Ovalocytes Not Reportable 03/28/20 07:39 Helmet Cells Not Reportable 03/28/20 07:39 Light-[place]ag[place] Bodies Not Reportable 03/28/20 07:39 [place] Rings Not Reportable 03/28/20 07:39 Kianna Cells Not Reportable 03/28/20 07:39 Bite Cells Not Reportable 03/28/20 07:39 Crenated Cell Not Reportable 03/28/20 07:39 Elliptocytes Not Reportable 03/28/20 07:39 Acanthocytes (Spur) Not Reportable 03/28/20 07:39 Rouleaux Not Reportable 03/28/20 07:39 Hemoglobin C Crystals Not Reportable 03/28/20 07:39 Schistocytes Not Reportable 03/28/20 07:39 Malaria parasites Not Reportable 03/28/20 07:39 Steven Bodies Not Reportable 03/28/20 07:39 Hem Pathologist Commnt No 03/28/20 07:39 PT 12.7 Sec. (12.2-14.9) 03/19/20 08:08 INR 0.94 (0.87-1.13) 03/19/20 08:08 APTT 27.7 Sec. (24.2-36.6) 03/18/20 18:28 Heparin Anti-Xa Level 0.10 U.I./ml (0.3-0.7) L 03/25/20 04:06 ABG pH 7.405 pH Units (7.350-7.450) 03/20/20 04:35 ABG pCO2 40.3 mm Hg 03/20/20 04:35 ABG pO2 68.3 mm Hg (80.0-90.0) L 03/20/20 04:35 ABG HCO3 24.6 mmol/L (20.0-26.0) 03/20/20 04:35 ABG O2 Saturation 94.3 % (95.0-99.0) L 03/20/20 04:35 ABG O2 Content 9.3 (0.0-44) 03/20/20 04:35 ABG Base Excess -0.1 mmol/L (-2.0-3.0) 03/20/20 04:35 ABG Hemoglobin 7.1 gm/dl (14.0-18.0) L 03/20/20 04:35 ABG Carboxyhemoglobin 1.8 % (0.0-5.0) 03/20/20 04:35 ABG Methemoglobin 0.4 % (0.0-1.5) 03/20/20 04:35 Oxyhemoglobin 92.3 % (95.0-99.0) L 03/20/20 04:35 FiO2 35 % 03/20/20 04:35 Sodium 134 mmol/L (137-145) L 03/28/20 07:39 Potassium 4.9 mmol/L (3.6-5.0) 03/28/20 07:39 Chloride 100.1 mmol/L (98-107) 03/28/20 07:39 Carbon Dioxide 19 mmol/L (22-30) L 03/28/20 07:39 Anion Gap 20 mmol/L 03/28/20 07:39 BUN 47 mg/dL (9-20) H 03/28/20 07:39 Creatinine 1.3 mg/dL (0.8-1.3) 03/28/20 07:39 Estimated GFR 57 ml/min 03/28/20 07:39 BUN/Creatinine Ratio 36 % 03/28/20 07:39 Glucose 240 mg/dL (75-100) H 03/28/20 07:39 POC Glucose 110 (70-105) H 03/29/20 08:32 Hemoglobin A1c 11.0 % (4-6) H 03/18/20 22:21 Calcium 7.8 mg/dL (8.4-10.2) L 03/28/20 07:39 Magnesium 2.20 mg/dL (1.7-2.3) 03/28/20 07:39 Total Creatine Kinase 7255 units/L (55-170) H 03/19/20 08:08 CK-MB (CK-2) 79.3 ng/mL (0.0-4.0) H 03/19/20 08:08 CK-MB (CK-2) Rel Index 1.0 (0-4) 03/19/20 08:08 Troponin T 3.200 ng/mL (0.00-0.029) H* D 03/20/20 05:12 Triglycerides 188 mg/dL (2-149) H 03/18/20 18:28 Cholesterol 199 mg/dL (50-199) 03/18/20 18:28 LDL Cholesterol Direct 141 mg/dL (50-130) H 03/18/20 18:28 HDL Cholesterol 47 mg/dL (40-59) 03/18/20 18:28 Cholesterol/HDL Ratio 4.23 % 03/18/20 18:28 Blood Type B POSITIVE 03/25/20 11:42 Antibody Screen Negative 03/25/20 11:42 - Diagnostic Impressions Diagnostic Impressions: Echocardiogram 03/19/20 12:49 Transthoracic Echocardiogram Indication: CAD and Abnormal EKG HR: 110 Conclusions *The study is technically limited due to patient body habitus. *The left ventricular chamber size is mildly dilated. *Global left ventricular systolic function is moderate to severely decreased. *The estimated ejection fraction is 30-35%. *The basal inferolateral, and basal inferior wall segments are normal. *The mid inferolateral, mid inferior, apical lateral, and apical inferior wall segments are akinetic. *The left atrial chamber size is normal. Findings Procedure Info: The study is technically limited due to patient body habitus. The study was technically limited due to the patient's inability to lay in the left lateral decubitus position. Left Ventricle: The left ventricular chamber size is mildly dilated. Global left ventricular systolic function is moderate to severely decreased. The estimated ejection fraction is 30-35%. The basal inferolateral, and basal inferior wall segments are normal. The mid inferolateral, mid inferior, apical lateral, and apical inferior wall segments are akinetic. Left Atrium: The left atrial chamber size is normal. Right Ventricle: The right ventricle is not well visualized. Right Atrium: The right atrium is not well visualized. The right atrial cavity size is normal. Aortic Valve: The aortic valve is trileaflet. Mitral Valve: The mitral valve leaflets are moderately thickened. There is mild mitral regurgitation. Tricuspid Valve: The tricuspid valve is not well visualized. There is trace tricuspid regurgitation. Pulmonic Valve: The pulmonic valve is not well visualized. Pericardium: There is no pericardial effusion. Aorta: The aorta appears normal. Venous: The venous system is not well visualized. Contrast: Definity was used to optimize study. Measurements Chambers 2D Name Value Normal Range IVSd (2D) 0.94 cm (0.6 - 1.1) LVPWd (2D) 0.94 cm (0.6 - 1.1) LVIDd (2D) 6.15 cm (3.7 - 5.6) LVIDs (2D) 5.2 cm (2 - 3.8) LV FS (2D) 15.5 % - EF Teichholz (2D) 32.08 % - Ao root diameter (2D) 2.77 cm (2 - 3.7) Volumes/Mass Name Value Normal Range LA ESV SP 4CH (A/L) 73.77 ml - LA ESV SP 2CH (A/L) 66.45 ml - LA ESV BP (A/L) 71.61 ml - LA ESV BP (A/L) index 30.6 ml/m2 - LA ESV SP 4CH (MOD) 72.55 ml - LA ESV SP 2CH (MOD) 65.34 ml - LA ESV BP (MOD) 70.27 ml - LA ESV BP (MOD) index 30.03 ml/m2 - Diastolic/Systolic Function Name Value Normal Range MV E-wave Vmax 0.85 m/sec - MV deceleration time 69.14 msec - MV A-wave Vmax 0.89 m/sec - MV E:A ratio 0.95 ratio - Aortic Valve Name Value Normal Range AV Vmax 0.96 m/sec - AV VTI 11.83 cm - AV peak gradient 3.68 mmHg - AV mean gradient 1.6 mmHg - LVOT diameter 2.19 cm - LVOT Vmax 0.86 m/sec - LVOT VTI 13.33 cm - LVOT peak gradient 2.96 mmHg - LVOT mean gradient 1.48 mmHg - SV LVOT 50.08 ml - DEYA (continuity Vmax) 3.37 cm2 - DEYA (continuity VTI) 4.23 cm2 - Ascending Ao 2.92 cm - Pulmonic Valve/Qp:Qs Name Value Normal Range PV Vmax 1.08 m/sec - PV VTI 15.88 cm - PV peak gradient 4.7 mmHg - PV mean gradient 2.18 mmHg - RVOT Vmax 0.82 m/sec - RVOT VTI 11.48 cm - RVOT peak gradient 2.67 mmHg - Wallmotion BAS Not Seen BA Not Seen BAL Not Seen BAY Normal BI Normal BIS Not Seen MAS Not Seen MA Not Seen MAL Not Seen MIL Akinetic RI Akinetic MIS Not Seen Not Seen AA Not Seen AL Akinetic AI Akinetic APEX Not Seen Tyson/IV: Voiding Method Urinal IV Catheter Type [Right Peripheral IV Forearm] IV Catheter Type [Right INT / Saline Lock Antecubital] IV Catheter Type [Left Upper Peripheral IV arm] IV Catheter Type [Left INT / Saline Lock Antecubital] Active Medications - Current Medications Current Medications: Generic Name Dose Route Start Last Admin Trade Name Freq PRN Reason Stop Dose Admin Acetaminophen/Hydrocodone Bitart 2 each 03/22/20 17:18 03/28/20 20:02 [place] 5/325 PO 2 each Q4H PRN Administration Pain, Moderate (4-6) Apixaban 5 mg 03/26/20 22:00 03/28/20 21:13 Eliquis PO 5 mg Q12HR LOI Administration Protocol Arformoterol Tartrate 15 mcg 03/19/20 20:00 03/29/20 07:31 Brovana Nebu IH 15 mcg Q12HRT LOI Administration Atorvastatin Calcium 40 mg 03/19/20 22:00 03/28/20 21:12 Lipitor PO 40 mg QHS LOI Administration Budesonide 0.5 mg 03/19/20 20:00 03/29/20 07:31 Pulmicort IH 0.5 mg Q12HRT LOI Administration Clopidogrel Bisulfate 75 mg 03/19/20 10:00 03/28/20 10:44 Plavix PO 75 mg QDAY LOI Administration Dextrose 50 ml 03/18/20 22:21 D50w (25gm) Syringe IV Q30MIN PRN Hypoglycemia Protocol Diphenhydramine HCl 25 mg 03/19/20 12:44 Benadryl IV Q4H PRN Itching Hydromorphone HCl 0.5 mg 03/25/20 13:48 Dilaudid IV Q10MIN PRN Pain , Severe (7-10) Hydromorphone/Sodium Chloride 0 mg 03/19/20 13:00 03/28/20 22:31 Dilaudid Bunch Maker 6mg/30ml IV 0.2 cart DIRECT LOI Administration Protocol Piperacillin Sod/Tazobactam Sod 4.5 gm in 100 mls @ 200 mls/hr 03/28/20 14:00 03/29/20 05:20 Zosyn/Ns 4.5gm/100ml IV 100 mls/hr Q8HR LOI Administration Sodium Chloride 500 mls @ 2 mls/hr 03/28/20 22:00 03/28/20 21:53 Nacl 0.9% 500 Ml IV 2 mls/hr DIRECT LOI Administration Insulin Glargine 25 units 03/22/20 22:00 03/28/20 21:13 Lantus SUB-Q 25 units QHS LOI Administration Insulin Human Lispro 0 unit 03/20/20 16:30 03/29/20 09:11 Humalog SUB-Q Not Given A[facility]S [facility] Protocol Insulin Human Lispro 8 unit 03/28/20 11:30 03/29/20 09:55 Humalog SUB-Q 8 unit AC LOI Administration Magnesium Hydroxide 30 ml 03/18/20 22:21 Milk Of Magnesia PO Q4H PRN Constipation Metoprolol Tartrate 50 mg 03/19/20 22:00 03/28/20 21:13 Metoprolol PO 50 mg BID LOI Administration Naloxone HCl 0.1 mg 03/19/20 12:44 Naloxone IV Q2MIN PRN Res Rate </= 8 or 02 SAT < 92% Ondansetron HCl 4 mg 03/18/20 22:21 Zofran IV Q8H PRN Nausea And Vomiting Pantoprazole Sodium 40 mg 03/20/20 10:00 03/28/20 21:13 Protonix PO 40 mg BID LOI Administration Pregabalin 150 mg 03/22/20 22:00 03/28/20 21:12 Pregabalin PO 150 mg BID LOI Administration Sodium Chloride 10 ml 03/19/20 10:00 03/28/20 21:18 Sodium Chloride Flush Syringe 10 Ml IV 10 ml BID LOI Administration Sodium Chloride 10 ml 03/18/20 22:21 03/22/20 19:52 Sodium Chloride Flush Syringe 10 Ml IV 10 ml PRN PRN Administration LINE FLUSH Nutrition/Malnutrition Assess - Dietary Evaluation Nutrition/Malnutrition Findings: Nutrition Notes Start: 03/19/20 11:59 Freq: Status: Active Protocol: Document 03/28/20 13:11 DAYO (Rec: 03/28/20 13:21 DAYO [email or web address]) Nutrition Notes Initial or Follow up Assessment Current Diagnosis COPD,Diabetes Other Pertinent Diagnosis (L) LE ischemia s/p (L) BKA, STARR, NSTEMI Current Diet Cardiac/Consistent CHO Labs/Tests Na 134 (likely 136-137) BG 240 BUN 47 Pertinent Medications 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 He says his appetite is " not the best", but he eats. PO intakes vary from 25-100%; he denies need for ONS at this time. He verbalizes a few food preferences. Burn Absent Trauma Absent Current % PO Fair (50-74%) Minimum of two criteria No #1 Nutrition Diagnosis Increased nutrient needs ( specify in comment below) Etiology increased demands of healing As Evidenced by Signs and Symptoms s/p recent BKA Is patient on ventilator? No Is Patient Ambulatory and/or Out of Bed No REE-([place]-confined to bed) 2529.804 Kcal/Kg value to use for calculation 17 Approximate Energy Requirements Using 2094 kcal/Kg Calculation Used for Recommendations Kcal/kg Additional Notes Pro needs 1-1.2g/kg adjBW (not for amputation): 102-122g/day Fluid needs 1ml/kcal Nutrition Intervention Change Diet Order: Continue current diet order; honor food preferences Goal #1 PO intakes to meet at least 75 % energy and pro needs Goal #2 Healing of surgical site Anticipated Discharge Needs: Heart-healthy/CHO-controlled diet Follow-Up By: 04/02/20 Additional Comments F/U: intakes
[2020-03-29] MEDS: PANTOPRAZOLE 40 MG TAB PO SCH ×2 (11:15→22:53)
[2020-03-29] MEDS: METOPROLOL TARTRATE 50 MG TAB PO SCH ×2 (11:15→23:02)
[2020-03-29] MEDS: APIXABAN 5 MG TAB PO SCH ×2 (11:15→22:53)
[2020-03-29] MEDS: PREGABALIN 75 MG CAP PO SCH ×2 (11:15→22:46)
[2020-03-29] MEDS: CLOPIDOGREL 75 MG TAB PO SCH (11:15)
--- NOTE | 2020-03-29 12:10 | Event Note ---
Date: 03/29/20 Patient is being considered for acute inpatient rehabilitation and is a good candidate overall. [id number] was performed, however with the patient's current status including dehydration, leukocytosis, and worsening anemia, the operations representative from [facility] is requesting that those items be addressed and optimized prior to the patient being transferred to acute rehab. Initial request has been denied. After the above issues are addressed and the patient is a little more medically optimized, [facility] will reconsider a second request for acute inpatient rehabilitation. Will revisit possible admission again early next week.
[2020-03-29] MEDS: HYDROcodone/ACETAMINOPHEN 5-325 MG TAB PO PRN ×2 (13:05→19:43)
--- NOTE | 2020-03-29 13:21 | Progress Note ---
Assessment and Plan Acute limb ischemia S/P revascularization surgery. Obstructive sleep apnea. History of chronic obstructive pulmonary disease. Acute hypoxemic respiratory failure. Diabetes. History of coronary artery disease. Non-ST elevation myocardial infarction. Acute coronary syndrome. History of cerebrovascular accident. - increase ambulation as tolerated - wound care per WCN / RN - continue antiplatelet therapy with Eliquis and Plavix - no new issues otherwise, continue care as below; - further surgical intervention per Vascular team - accuchecks with glycemic control per SSI (While critically ill target blood glucose of 140-180 mg/dL; avoid hypoglycemia) - wean supplemental oxygen for target O2 sat's > 90% acutely - prn bronchodilators with pulmonary hygiene per RT - avoid benzodiazepine's, reduce the possibility of delirium - AB's per surgery rec's (No S&S of overwhelming sepsis) - prn analgesia per pain score - Maintenance of sleep-wake cycle, avoid delirium - aspiration precautions - G.I. & VTE prophylaxis - PT/OT/ROM exercises - mobility protocols for pressure ulcer prophylaxis - Monitor hemodynamics closely - continue other care per attending / other consultants - discharge planning ongoing concurrently - transferred to telemetry .... Re-evaluate in am & prn Subjective Date of service: 03/29/20 Principal diagnosis: Acute limb ischemia; STARR; COPD; Ac hypoxemic resp failure; DM II; NSTEMI Interval history: Patient is seen today for: Acute limb ischemia S/P revascularization surgery; OS A; COPD; Acute hypoxemic respiratory failure; DM II; NSTEMI; H/O CVA Seen and examined at bedside; 24hour events reviewed; nursing and respiratory care staff consulted; no adverse overnight events reported to me; resting peacefully in bed; denies chest pain or acute SOB; No N/V/F/C Objective Vital Signs - 12hr 03/29/20 03/29/20 03/29/20 03:20 04:52 07:31 Temperature 98.0 F Pulse Rate 45 L 72 Pulse Rate [ 84 Anterior Bilateral Throughout] Respiratory 18 Rate Respiratory 20 Rate [Anterior Bilateral Throughout] Blood Pressure 92/63 91/62 O2 Sat by Pulse 100 99 97 Oximetry 03/29/20 03/29/20 03/29/20 07:50 08:20 11:51 Temperature 98.9 F 98.9 F Pulse Rate 77 77 Pulse Rate [ Anterior Bilateral Throughout] Respiratory 18 20 18 Rate Respiratory Rate [Anterior Bilateral Throughout] Blood Pressure 90/53 91/55 O2 Sat by Pulse 98 99 Oximetry Constitutional: no acute distress, other (middle aged obese male with mildly increased respiratory effort at rest) Eyes: non-icteric ENT: oropharynx moist Neck: supple, no lymphadenopathy, no JVD Effort: mildly labored Ascultation: Bilateral: clear, diminished breath sounds Percussion: Bilateral: not dull Cardiovascular: regular rate and rhythm Gastrointestinal: normoactive bowel sounds, soft, non-tender, non-distended (protuberant) Integumentary: rash Extremities: cool, edema, other (left BKA with clean dressing) Neurologic: normal mental status, non-focal exam, pupils equal and round, motor strength normal and Psychiatric: mood appropriate, affect normal CBC and BMP: 04/04/20 04:29 04/04/20 04:29 ABG, PT/INR, D-dimer: ABG ABG pH 7.405 pH Units (7.350-7.450) 03/20/20 04:35 ABG pCO2 40.3 mm Hg 03/20/20 04:35 ABG pO2 68.3 mm Hg (80.0-90.0) L 03/20/20 04:35 ABG O2 Saturation 94.3 % (95.0-99.0) L 03/20/20 04:35 PT/INR, D-dimer PT 12.7 Sec. (12.2-14.9) 03/19/20 08:08 INR 0.94 (0.87-1.13) 03/19/20 08:08 Abnormal lab findings: Abnormal Labs 03/18/20 03/18/20 03/18/20 18:28 18:28 20:56 WBC 12.3 H RBC Hgb Hct Lymph % (Auto) 11.0 L [place] % (Auto) 9.8 H [place] # 1.2 H Seg Neutrophils % 78.4 H Seg Neuts % (Manual) Lymphocytes % (Manual) Seg Neutrophils # 9.6 H Seg Neutrophils # Man Lymphocytes # (Manual) Monocytes # (Manual) Heparin Anti-Xa Level ABG pO2 ABG HCO3 ABG O2 Saturation ABG Base Excess ABG Hemoglobin Oxyhemoglobin Sodium 132 L Potassium Chloride 91.9 L Carbon Dioxide 20 L BUN Creatinine 1.4 H Glucose 406 H POC Glucose Hemoglobin A1c Calcium Total Creatine Kinase 2727 H 2492 H CK-MB (CK-2) 135.9 H 107.2 H CK-MB (CK-2) Rel Index 4.3 H Troponin T 5.110 H* 3.960 H* D Triglycerides 188 H LDL Cholesterol Direct 141 H 03/18/20 03/19/20 03/19/20 22:21 01:57 08:08 WBC RBC Hgb Hct Lymph % (Auto) [place] % (Auto) [place] # Seg Neutrophils % Seg Neuts % (Manual) Lymphocytes % (Manual) Seg Neutrophils # Seg Neutrophils # Man Lymphocytes # (Manual) Monocytes # (Manual) Heparin Anti-Xa Level ABG pO2 ABG HCO3 ABG O2 Saturation ABG Base Excess ABG Hemoglobin Oxyhemoglobin Sodium Potassium Chloride Carbon Dioxide BUN Creatinine Glucose POC Glucose 317 H Hemoglobin A1c 11.0 H Calcium Total Creatine Kinase 7255 H CK-MB (CK-2) 79.3 H CK-MB (CK-2) Rel Index Troponin T 5.540 H* D Triglycerides LDL Cholesterol Direct 03/19/20 03/19/20 03/19/20 08:08 08:08 08:08 WBC 13.3 H RBC Hgb Hct Lymph % (Auto) 10.7 L [place] % (Auto) 8.5 H [place] # 1.1 H Seg Neutrophils % 80.0 H Seg Neuts % (Manual) Lymphocytes % (Manual) Seg Neutrophils # 10.6 H Seg Neutrophils # Man Lymphocytes # (Manual) Monocytes # (Manual) Heparin Anti-Xa Level 0.10 L ABG pO2 ABG HCO3 ABG O2 Saturation ABG Base Excess ABG Hemoglobin Oxyhemoglobin Sodium 133 L Potassium 5.1 H Chloride Carbon Dioxide 17 L BUN 23 H Creatinine Glucose 313 H POC Glucose Hemoglobin A1c Calcium Total Creatine Kinase CK-MB (CK-2) CK-MB (CK-2) Rel Index Troponin T Triglycerides LDL Cholesterol Direct 03/19/20 03/19/20 03/19/20 15:40 18:23 21:32 WBC RBC Hgb Hct Lymph % (Auto) [place] % (Auto) [place] # Seg Neutrophils % Seg Neuts % (Manual) Lymphocytes % (Manual) Seg Neutrophils # Seg Neutrophils # Man Lymphocytes # (Manual) Monocytes # (Manual) Heparin Anti-Xa Level < 0.10 L ABG pO2 ABG HCO3 18.3 L ABG O2 Saturation ABG Base Excess -5.4 L ABG Hemoglobin 12.2 L Oxyhemoglobin 94.6 L Sodium Potassium Chloride Carbon Dioxide BUN Creatinine Glucose POC Glucose 348 H Hemoglobin A1c Calcium Total Creatine Kinase CK-MB (CK-2) CK-MB (CK-2) Rel Index Troponin T Triglycerides LDL Cholesterol Direct 03/20/20 03/20/20 03/20/20 04:35 05:12 05:12 WBC 11.1 H RBC 3.63 L Hgb 11.0 L Hct 32.7 L D Lymph % (Auto) [place] % (Auto) 8.1 H [place] # 0.9 H Seg Neutrophils % 75.8 H Seg Neuts % (Manual) Lymphocytes % (Manual) Seg Neutrophils # 8.4 H Seg Neutrophils # Man Lymphocytes # (Manual) Monocytes # (Manual) Heparin Anti-Xa Level 0.28 L ABG pO2 68.3 L ABG HCO3 ABG O2 Saturation 94.3 L ABG Base Excess ABG Hemoglobin 7.1 L Oxyhemoglobin 92.3 L Sodium Potassium Chloride Carbon Dioxide BUN Creatinine Glucose POC Glucose Hemoglobin A1c Calcium Total Creatine Kinase CK-MB (CK-2) CK-MB (CK-2) Rel Index Troponin T Triglycerides LDL Cholesterol Direct 03/20/20 03/20/20 03/20/20 05:12 07:49 12:15 WBC RBC Hgb Hct Lymph % (Auto) [place] % (Auto) [place] # Seg Neutrophils % Seg Neuts % (Manual) Lymphocytes % (Manual) Seg Neutrophils # Seg Neutrophils # Man Lymphocytes # (Manual) Monocytes # (Manual) Heparin Anti-Xa Level ABG pO2 ABG HCO3 ABG O2 Saturation ABG Base Excess ABG Hemoglobin Oxyhemoglobin Sodium 134 L Potassium Chloride Carbon Dioxide 21 L BUN 23 H Creatinine Glucose 275 H POC Glucose 294 H 357 H Hemoglobin A1c Calcium Total Creatine Kinase CK-MB (CK-2) CK-MB (CK-2) Rel Index Troponin T 3.200 H* D Triglycerides LDL Cholesterol Direct 03/20/20 03/20/20 03/21/20 17:16 22:08 04:44 WBC RBC Hgb Hct Lymph % (Auto) [place] % (Auto) [place] # Seg Neutrophils % Seg Neuts % (Manual) Lymphocytes % (Manual) Seg Neutrophils # Seg Neutrophils # Man Lymphocytes # (Manual) Monocytes # (Manual) Heparin Anti-Xa Level ABG pO2 ABG HCO3 ABG O2 Saturation ABG Base Excess ABG Hemoglobin Oxyhemoglobin Sodium 136 L Potassium Chloride Carbon Dioxide 18 L BUN 26 H Creatinine Glucose 266 H POC Glucose 327 H 292 H Hemoglobin A1c Calcium 8.1 L Total Creatine Kinase CK-MB (CK-2) CK-MB (CK-2) Rel Index Troponin T Triglycerides LDL Cholesterol Direct 03/21/20 03/21/20 03/21/20 07:50 12:25 15:53 WBC RBC Hgb Hct Lymph % (Auto) [place] % (Auto) [place] # Seg Neutrophils % Seg Neuts % (Manual) Lymphocytes % (Manual) Seg Neutrophils # Seg Neutrophils # Man Lymphocytes # (Manual) Monocytes # (Manual) Heparin Anti-Xa Level ABG pO2 ABG HCO3 ABG O2 Saturation ABG Base Excess ABG Hemoglobin Oxyhemoglobin Sodium Potassium Chloride Carbon Dioxide BUN Creatinine Glucose POC Glucose 271 H 314 H 436 H Hemoglobin A1c Calcium Total Creatine Kinase CK-MB (CK-2) CK-MB (CK-2) Rel Index Troponin T Triglycerides LDL Cholesterol Direct 03/21/20 03/21/20 03/22/20 17:44 21:55 04:33 WBC RBC Hgb 10.0 L Hct 29.4 L Lymph % (Auto) [place] % (Auto) [place] # Seg Neutrophils % Seg Neuts % (Manual) Lymphocytes % (Manual) Seg Neutrophils # Seg Neutrophils # Man Lymphocytes # (Manual) Monocytes # (Manual) Heparin Anti-Xa Level ABG pO2 ABG HCO3 ABG O2 Saturation ABG Base Excess ABG Hemoglobin Oxyhemoglobin Sodium Potassium Chloride Carbon Dioxide BUN Creatinine Glucose POC Glucose 362 H 329 H Hemoglobin A1c Calcium Total Creatine Kinase CK-MB (CK-2) CK-MB (CK-2) Rel Index Troponin T Triglycerides LDL Cholesterol Direct 03/22/20 03/22/20 03/22/20 08:57 14:12 19:57 WBC RBC Hgb Hct Lymph % (Auto) [place] % (Auto) [place] # Seg Neutrophils % Seg Neuts % (Manual) Lymphocytes % (Manual) Seg Neutrophils # Seg Neutrophils # Man Lymphocytes # (Manual) Monocytes # (Manual) Heparin Anti-Xa Level ABG pO2 ABG HCO3 ABG O2 Saturation ABG Base Excess ABG Hemoglobin Oxyhemoglobin Sodium Potassium Chloride Carbon Dioxide BUN Creatinine Glucose POC Glucose 284 H 319 H 356 H Hemoglobin A1c Calcium Total Creatine Kinase CK-MB (CK-2) CK-MB (CK-2) Rel Index Troponin T Triglycerides LDL Cholesterol Direct 0803/23/20 03/23/20 21:44 08:18 12:46 WBC RBC Hgb Hct Lymph % (Auto) [place] % (Auto) [place] # Seg Neutrophils % Seg Neuts % (Manual) Lymphocytes % (Manual) Seg Neutrophils # Seg Neutrophils # Man Lymphocytes # (Manual) Monocytes # (Manual) Heparin Anti-Xa Level ABG pO2 ABG HCO3 ABG O2 Saturation ABG Base Excess ABG Hemoglobin Oxyhemoglobin Sodium Potassium Chloride Carbon Dioxide BUN Creatinine Glucose POC Glucose 336 H 215 H 262 H Hemoglobin A1c Calcium Total Creatine Kinase CK-MB (CK-2) CK-MB (CK-2) Rel Index Troponin T Triglycerides LDL Cholesterol Direct 03/23/20 03/23/20 03/24/20 15:56 22:05 02:35 WBC RBC Hgb 9.0 L Hct 25.8 L Lymph % (Auto) [place] % (Auto) [place] # Seg Neutrophils % Seg Neuts % (Manual) Lymphocytes % (Manual) Seg Neutrophils # Seg Neutrophils # Man Lymphocytes # (Manual) Monocytes # (Manual) Heparin Anti-Xa Level ABG pO2 ABG HCO3 ABG O2 Saturation ABG Base Excess ABG Hemoglobin Oxyhemoglobin Sodium Potassium Chloride Carbon Dioxide BUN Creatinine Glucose POC Glucose 246 H 322 H Hemoglobin A1c Calcium Total Creatine Kinase CK-MB (CK-2) CK-MB (CK-2) Rel Index Troponin T Triglycerides LDL Cholesterol Direct 03/24/20 03/24/20 03/24/20 07:38 11:45 16:02 WBC RBC Hgb Hct Lymph % (Auto) [place] % (Auto) [place] # Seg Neutrophils % Seg Neuts % (Manual) Lymphocytes % (Manual) Seg Neutrophils # Seg Neutrophils # Man Lymphocytes # (Manual) Monocytes # (Manual) Heparin Anti-Xa Level ABG pO2 ABG HCO3 ABG O2 Saturation ABG Base Excess ABG Hemoglobin Oxyhemoglobin Sodium Potassium Chloride Carbon Dioxide BUN Creatinine Glucose POC Glucose 289 H 257 H 150 H Hemoglobin A1c Calcium Total Creatine Kinase CK-MB (CK-2) CK-MB (CK-2) Rel Index Troponin T Triglycerides LDL Cholesterol Direct 03/24/20 03/25/20 03/25/20 21:24 04:06 07:39 WBC RBC Hgb Hct Lymph % (Auto) [place] % (Auto) [place] # Seg Neutrophils % Seg Neuts % (Manual) Lymphocytes % (Manual) Seg Neutrophils # Seg Neutrophils # Man Lymphocytes # (Manual) Monocytes # (Manual) Heparin Anti-Xa Level 0.10 L ABG pO2 ABG HCO3 ABG O2 Saturation ABG Base Excess ABG Hemoglobin Oxyhemoglobin Sodium Potassium Chloride Carbon Dioxide BUN Creatinine Glucose POC Glucose 228 H 332 H Hemoglobin A1c Calcium Total Creatine Kinase CK-MB (CK-2) CK-MB (CK-2) Rel Index Troponin T Triglycerides LDL Cholesterol Direct 03/25/20 03/25/20 03/25/20 08:13 09:30 11:59 WBC 13.1 H RBC 2.82 L Hgb 8.5 L Hct 26.1 L Lymph % (Auto) [place] % (Auto) [place] # Seg Neutrophils % Seg Neuts % (Manual) Lymphocytes % (Manual) Seg Neutrophils # Seg Neutrophils # Man Lymphocytes # (Manual) Monocytes # (Manual) Heparin Anti-Xa Level ABG pO2 ABG HCO3 ABG O2 Saturation ABG Base Excess ABG Hemoglobin Oxyhemoglobin Sodium 131 L Potassium 5.3 H Chloride Carbon Dioxide 20 L BUN 39 H Creatinine 1.4 H Glucose 313 H POC Glucose 273 H Hemoglobin A1c Calcium 8.1 L Total Creatine Kinase CK-MB (CK-2) CK-MB (CK-2) Rel Index Troponin T Triglycerides LDL Cholesterol Direct 03/25/20 03/25/20 03/25/20 13:54 15:58 18:21 WBC RBC Hgb Hct Lymph % (Auto) [place] % (Auto) [place] # Seg Neutrophils % Seg Neuts % (Manual) Lymphocytes % (Manual) Seg Neutrophils # Seg Neutrophils # Man Lymphocytes # (Manual) Monocytes # (Manual) Heparin Anti-Xa Level ABG pO2 ABG HCO3 ABG O2 Saturation ABG Base Excess ABG Hemoglobin Oxyhemoglobin Sodium Potassium Chloride Carbon Dioxide BUN Creatinine Glucose POC Glucose 246 H 235 H 185 H Hemoglobin A1c Calcium Total Creatine Kinase CK-MB (CK-2) CK-MB (CK-2) Rel Index Troponin T Triglycerides LDL Cholesterol Direct 03/25/20 03/26/20 03/26/20 20:45 05:15 06:59 WBC 17.4 H 15.6 H RBC 3.05 L 3.05 L Hgb 9.1 L 9.2 L Hct 28.2 L 27.9 L Lymph % (Auto) 8.9 L 8.9 L [place] % (Auto) [place] # 1.0 H Seg Neutrophils % 84.4 H 84.8 H Seg Neuts % (Manual) Lymphocytes % (Manual) Seg Neutrophils # 14.7 H 13.2 H Seg Neutrophils # Man Lymphocytes # (Manual) Monocytes # (Manual) Heparin Anti-Xa Level ABG pO2 ABG HCO3 ABG O2 Saturation ABG Base Excess ABG Hemoglobin Oxyhemoglobin Sodium Potassium Chloride Carbon Dioxide BUN Creatinine Glucose POC Glucose 178 H Hemoglobin A1c Calcium Total Creatine Kinase CK-MB (CK-2) CK-MB (CK-2) Rel Index Troponin T Triglycerides LDL Cholesterol Direct 03/26/20 03/26/20 03/26/20 06:59 07:43 11:56 WBC RBC Hgb Hct Lymph % (Auto) [place] % (Auto) [place] # Seg Neutrophils % Seg Neuts % (Manual) Lymphocytes % (Manual) Seg Neutrophils # Seg Neutrophils # Man Lymphocytes # (Manual) Monocytes # (Manual) Heparin Anti-Xa Level ABG pO2 ABG HCO3 ABG O2 Saturation ABG Base Excess ABG Hemoglobin Oxyhemoglobin Sodium 131 L Potassium 5.8 H Chloride Carbon Dioxide 16 L BUN 42 H Creatinine 1.4 H Glucose 163 H POC Glucose 170 H 198 H Hemoglobin A1c Calcium 8.0 L Total Creatine Kinase CK-MB (CK-2) CK-MB (CK-2) Rel Index Troponin T Triglycerides LDL Cholesterol Direct 03/26/20 03/26/20 03/26/20 13:58 16:16 21:00 WBC RBC Hgb Hct Lymph % (Auto) [place] % (Auto) [place] # Seg Neutrophils % Seg Neuts % (Manual) Lymphocytes % (Manual) Seg Neutrophils # Seg Neutrophils # Man Lymphocytes # (Manual) Monocytes # (Manual) Heparin Anti-Xa Level ABG pO2 ABG HCO3 ABG O2 Saturation ABG Base Excess ABG Hemoglobin Oxyhemoglobin Sodium 128 L Potassium 6.0 H Chloride Carbon Dioxide 15 L BUN 45 H Creatinine 1.4 H Glucose 190 H POC Glucose 184 H 192 H Hemoglobin A1c Calcium 8.2 L Total Creatine Kinase CK-MB (CK-2) CK-MB (CK-2) Rel Index Troponin T Triglycerides LDL Cholesterol Direct 03/27/20 03/27/20 03/27/20 08:32 11:51 14:39 WBC 22.9 H RBC 2.68 L Hgb 7.9 L Hct 24.7 L Lymph % (Auto) [place] % (Auto) [place] # Seg Neutrophils % Seg Neuts % (Manual) Lymphocytes % (Manual) Seg Neutrophils # Seg Neutrophils # Man Lymphocytes # (Manual) Monocytes # (Manual) Heparin Anti-Xa Level ABG pO2 ABG HCO3 ABG O2 Saturation ABG Base Excess ABG Hemoglobin Oxyhemoglobin Sodium Potassium Chloride Carbon Dioxide BUN Creatinine Glucose POC Glucose 233 H 252 H Hemoglobin A1c Calcium Total Creatine Kinase CK-MB (CK-2) CK-MB (CK-2) Rel Index Troponin T Triglycerides LDL Cholesterol Direct 03/27/20 03/27/20 03/27/20 14:39 15:19 21:35 WBC RBC Hgb Hct Lymph % (Auto) [place] % (Auto) [place] # Seg Neutrophils % Seg Neuts % (Manual) Lymphocytes % (Manual) Seg Neutrophils # Seg Neutrophils # Man Lymphocytes # (Manual) Monocytes # (Manual) Heparin Anti-Xa Level ABG pO2 ABG HCO3 ABG O2 Saturation ABG Base Excess ABG Hemoglobin Oxyhemoglobin Sodium 133 L Potassium 5.5 H Chloride Carbon Dioxide 16 L BUN 46 H Creatinine 1.4 H Glucose 225 H POC Glucose 239 H 202 H Hemoglobin A1c Calcium 8.2 L Total Creatine Kinase CK-MB (CK-2) CK-MB (CK-2) Rel Index Troponin T Triglycerides LDL Cholesterol Direct 03/28/20 03/28/20 03/28/20 07:39 07:39 08:36 WBC 22.4 H RBC 2.71 L Hgb 7.9 L Hct 24.5 L Lymph % (Auto) [place] % (Auto) [place] # Seg Neutrophils % Seg Neuts % (Manual) 88.0 H Lymphocytes % (Manual) 5.0 L Seg Neutrophils # Seg Neutrophils # Man 19.7 H Lymphocytes # (Manual) 1.1 L Monocytes # (Manual) 1.6 H Heparin Anti-Xa Level ABG pO2 ABG HCO3 ABG O2 Saturation ABG Base Excess ABG Hemoglobin Oxyhemoglobin Sodium 134 L Potassium Chloride Carbon Dioxide 19 L BUN 47 H Creatinine Glucose 240 H POC Glucose 253 H Hemoglobin A1c Calcium 7.8 L Total Creatine Kinase CK-MB (CK-2) CK-MB (CK-2) Rel Index Troponin T Triglycerides LDL Cholesterol Direct 03/28/20 03/28/20 03/28/20 11:54 17:08 21:17 WBC RBC Hgb Hct Lymph % (Auto) [place] % (Auto) [place] # Seg Neutrophils % Seg Neuts % (Manual) Lymphocytes % (Manual) Seg Neutrophils # Seg Neutrophils # Man Lymphocytes # (Manual) Monocytes # (Manual) Heparin Anti-Xa Level ABG pO2 ABG HCO3 ABG O2 Saturation ABG Base Excess ABG Hemoglobin Oxyhemoglobin Sodium Potassium Chloride Carbon Dioxide BUN Creatinine Glucose POC Glucose 306 H 178 H 186 H Hemoglobin A1c Calcium Total Creatine Kinase CK-MB (CK-2) CK-MB (CK-2) Rel Index Troponin T Triglycerides LDL Cholesterol Direct 03/29/20 08:32 WBC RBC Hgb Hct Lymph % (Auto) [place] % (Auto) [place] # Seg Neutrophils % Seg Neuts % (Manual) Lymphocytes % (Manual) Seg Neutrophils # Seg Neutrophils # Man Lymphocytes # (Manual) Monocytes # (Manual) Heparin Anti-Xa Level ABG pO2 ABG HCO3 ABG O2 Saturation ABG Base Excess ABG Hemoglobin Oxyhemoglobin Sodium Potassium Chloride Carbon Dioxide BUN Creatinine Glucose POC Glucose 110 H Hemoglobin A1c Calcium Total Creatine Kinase CK-MB (CK-2) CK-MB (CK-2) Rel Index Troponin T Triglycerides LDL Cholesterol Direct Allied health notes reviewed: nursing
[2020-03-29 14:56] LABS: Hematocrit 26.1 % (35.5-45.6); Hemoglobin 8.4 gm/dl (11.8-15.2); Mean Corpuscular HGB Conc 32 % (32-34); Mean Corpuscular Volume 92 fl (84-94); Platelet Count 362 K/mm3 (140-440); Red Blood Count 2.82 M/mm3 (3.65-5.03); Red Cell Distribution Width 14.8 % (13.2-15.2)
[2020-03-29 19:06] LABS: Basophils % (Manual) 0 % (0.0-1.8); Total Cells Counted 100
[2020-03-29 19:07] LABS: Anisocytosis 1+; Platelet Estimate Consistent w Auto
[2020-03-29] MEDS: INSULIN GLARGINE 100 UNITS/ML SUB-Q SCH (22:46)
[2020-03-30] MEDS: HYDROcodone/ACETAMINOPHEN 5-325 MG TAB PO PRN (01:25)
[2020-03-30] MEDS: HYDROmorphone/NS 6 MG/30 ML PCA INJ IV SCH (02:09)
[2020-03-30] MEDS: PIPERACIL/TAZOBACTA 4.5/NS 100 4.5 GM/100 ML VIAL IV SCH ×3 (05:09→22:45)
[2020-03-30] MEDS: [UNRECOGNIZED DRUG - REMARK] SUB-Q SCH ×4 (08:21→22:35)
[2020-03-30] MEDS: BUDESONIDE 0.5 MG/2 ML NEBU IH SCH ×2 (08:36→19:48)
[2020-03-30] MEDS: ARFORMOTEROL 15 MCG/2 ML NEBU IH SCH ×2 (08:36→19:48)
[2020-03-30] MEDS: INSULIN LISPRO 100 UNIT/ML VIAL 3 mL SUB-Q SCH ×3 (09:21→18:31)
[2020-03-30] MEDS: APIXABAN 5 MG TAB PO SCH ×2 (11:26→22:45)
[2020-03-30] MEDS: METOPROLOL TARTRATE 50 MG TAB PO SCH ×2 (11:26→22:36)
[2020-03-30] MEDS: PREGABALIN 75 MG CAP PO SCH ×2 (11:26→22:45)
[2020-03-30] MEDS: CLOPIDOGREL 75 MG TAB PO SCH (11:26)
[2020-03-30] MEDS: PANTOPRAZOLE 40 MG TAB PO SCH ×2 (11:26→22:45)
--- NOTE | 2020-03-30 11:54 | Progress Note ---
Assessment and Plan Assessment and plan: --Hyperkalemia; resolved Current Visit: Yes Status: Acute Follow electrolytes --Insomnia; Current Visit: Yes Status: Acute Optimal pain medications, sleeping aid Ambien 5 mg nightly --Acute left lower extremity ischemia,s/p Lt BKA Current Visit: Yes Status: Acute 03/19/2020 status post endovascular revascularization. 03/19/2020 s/p left LE, 4 compartment fasciotomy per vascular 03/25/2020 s/p left BKA on --SIRS; without organ dysfunction Current Visit: Yes Status: Acute leukocytosis, tachycardia --Non-ST elevation NM : Current Visit: Yes Status: Acute Patient has history of CABG patient denies any chest pain. Management per cardiology Per cardiology non-STEMI 2 Elevated troponins at the time of admission --Acute systolic CHF; EF 30-35%% Current Visit: Yes Status: Acute Beta-blockers, BIJAN inhibitor, diuretics Improved -- Hyperglycemia due to diabetes mellitus Current Visit: Yes Status: Acute Accu-Chek sliding scale coverage ADA diet Long-acting insulin as needed, F3h---86.0 --Nicotine dependence Current Visit: Yes Status: Acute Smoking cessation nicotine patch as needed --DVT prophylaxis Current Visit: Yes Status: Acute Patient currently on anticoagulation. -- Full code status Current Visit: Yes Status: Acute Patient is on heparin drip Discharge planning issues Disposition ;acute rehab placement, pending insurance authorization Monitor closely and adjust management as needed Plan of care reviewed with the patient and his nurse 03/19/2020 status post endovascular revascularization. 03/19/2020 s/p left lower extremity 4 compartment fasciotomy 03/25/2020; s/p left BKA on 03/26/20; evaluated by PT, recommend acute rehab 03/29/20; acute rehab facility from [facility] evaluated the patient Patient is not ready for acute rehab, they will reevaluate 03/30/20; complains of insomnia, add History Interval history: I have seen and examined the patient at the bedside Patient's medical records test reports vital signs reviewed Patient feels slightly better complains of some pain, patient is on [employer] pump Complains of insomnia, Vital signs reviewed Hospitalist Physical - Constitutional Vitals: Temp Pulse Resp BP Pulse Ox 98.2 F 82 18 90/58 97 03/30/20 07:26 03/30/20 08:36 03/30/20 09:44 03/30/20 07:26 03/30/20 10:00 General appearance: Present: no acute distress, well-nourished, obese (Morbidly) - EENT Eyes: Present: PERRL, EOM intact - Neck Neck: Present: supple, normal ROM - Respiratory Respiratory effort: normal Respiratory: bilateral: diminished, negative: rales, rhonchi, wheezing - Cardiovascular Rhythm: regular Heart Sounds: Present: S1 & S2 - Extremities Extremities: no ischemia, No edema, abnormal (Left BKA, wound clean) - Abdominal General gastrointestinal: soft, non-tender, non-distended, normal bowel sounds - Integumentary Integumentary: Present: clear, warm - Psychiatric Psychiatric: appropriate mood/affect, cooperative - Neurologic Neurologic: CNII-XII intact, moves all extremities HEART Score - HEART Score Troponin: Troponin T 3.200 ng/mL (0.00-0.029) H* D 03/20/20 05:12 Results - Labs CBC & Chem 7: 03/29/20 14:19 03/28/20 07:39 Labs: Laboratory Last Values WBC 21.5 K/mm3 (4.5-11.0) H 03/29/20 14:19 RBC 2.82 M/mm3 (3.65-5.03) L 03/29/20 14:19 Hgb 8.4 gm/dl (11.8-15.2) L 03/29/20 14:19 Hct 26.1 % (35.5-45.6) L 03/29/20 14:19 MCV 92 fl (84-94) 03/29/20 14:19 MCH 30 pg (28-32) 03/29/20 14:19 MCHC 32 % (32-34) 03/29/20 14:19 RDW 14.8 % (13.2-15.2) 03/29/20 14:19 Plt Count 362 K/mm3 (140-440) 03/29/20 14:19 Lymph % (Auto) 8.9 % (13.4-35.0) L 03/26/20 06:59 [place] % (Auto) 5.0 % (0.0-7.3) 03/26/20 06:59 Eos % (Auto) 0.6 % (0.0-4.3) 03/26/20 06:59 Baso % (Auto) 0.7 % (0.0-1.8) 03/26/20 06:59 Lymph # 1.4 K/mm3 (1.2-5.4) 03/26/20 06:59 [place] # 0.8 K/mm3 (0.0-0.8) 03/26/20 06:59 Eos # 0.1 K/mm3 (0.0-0.4) 03/26/20 06:59 Baso # 0.1 K/mm3 (0.0-0.1) 03/26/20 06:59 Add Manual Diff Complete 03/29/20 14:19 Total Counted 100 03/29/20 14:19 Seg Neutrophils % 84.8 % (40.0-70.0) H 03/26/20 06:59 Seg Neuts % (Manual) 85.0 % (40.0-70.0) H 03/29/20 14:19 Band Neutrophils % 0 % 03/29/20 14:19 Lymphocytes % (Manual) 11.0 % (13.4-35.0) L 03/29/20 14:19 Reactive Lymphs % (Man) 0 % 03/29/20 14:19 Monocytes % (Manual) 1.0 % (0.0-7.3) 03/29/20 14:19 Eosinophils % (Manual) 3.0 % (0.0-4.3) 03/29/20 14:19 Basophils % (Manual) 0 % (0.0-1.8) 03/29/20 14:19 Metamyelocytes % 0 % 03/29/20 14:19 Myelocytes % 0 % 03/29/20 14:19 Promyelocytes % 0 % 03/29/20 14:19 Blast Cells % 0 % 03/29/20 14:19 Nucleated RBC % 3.0 % (0.0-0.9) H 03/29/20 14:19 Seg Neutrophils # 13.2 K/mm3 (1.8-7.7) H 03/26/20 06:59 Seg Neutrophils # Man 18.3 K/mm3 (1.8-7.7) H 03/29/20 14:19 Band Neutrophils # 0.0 K/mm3 03/29/20 14:19 Lymphocytes # (Manual) 2.4 K/mm3 (1.2-5.4) 03/29/20 14:19 Abs React Lymphs (Man) 0.0 K/mm3 03/29/20 14:19 Monocytes # (Manual) 0.2 K/mm3 (0.0-0.8) 03/29/20 14:19 Eosinophils # (Manual) 0.6 K/mm3 (0.0-0.4) H 03/29/20 14:19 Basophils # (Manual) 0.0 K/mm3 (0.0-0.1) 03/29/20 14:19 Metamyelocytes # 0.0 K/mm3 03/29/20 14:19 Myelocytes # 0.0 K/mm3 03/29/20 14:19 Promyelocytes # 0.0 K/mm3 03/29/20 14:19 Blast Cells # 0.0 K/mm3 03/29/20 14:19 WBC Morphology Not Reportable 03/29/20 14:19 Hypersegmented Neuts Not Reportable 03/29/20 14:19 Hyposegmented Neuts Not Reportable 03/29/20 14:19 Hypogranular Neuts Not Reportable 03/29/20 14:19 Smudge Cells Not Reportable 03/29/20 14:19 Toxic Granulation Not Reportable 03/29/20 14:19 Toxic Vacuolation Not Reportable 03/29/20 14:19 Dohle Bodies Not Reportable 03/29/20 14:19 Pelger-Huet Anomaly Not Reportable 03/29/20 14:19 Ananya Rods Not Reportable 03/29/20 14:19 Platelet Estimate Consistent w auto 03/29/20 14:19 Clumped Platelets Not Reportable 03/29/20 14:19 Plt Clumps, EDTA Not Reportable 03/29/20 14:19 Large Platelets Not Reportable 03/29/20 14:19 Giant Platelets Not Reportable 03/29/20 14:19 Platelet Satelliting Not Reportable 03/29/20 14:19 Plt Morphology Comment Not Reportable 03/29/20 14:19 RBC Morphology Not Reportable 03/29/20 14:19 Dimorphic RBCs Not Reportable 03/29/20 14:19 Polychromasia Not Reportable 03/29/20 14:19 Hypochromasia Not Reportable 03/29/20 14:19 Poikilocytosis Not Reportable 03/29/20 14:19 Anisocytosis 1+ 03/29/20 14:19 Microcytosis Not Reportable 03/29/20 14:19 Macrocytosis Not Reportable 03/29/20 14:19 Spherocytes Not Reportable 03/29/20 14:19 Pappenheimer Bodies Not Reportable 03/29/20 14:19 Sickle Cells Not Reportable 03/29/20 14:19 Target Cells Not Reportable 03/29/20 14:19 Tear Drop Cells Not Reportable 03/29/20 14:19 Ovalocytes Not Reportable 03/29/20 14:19 Helmet Cells Not Reportable 03/29/20 14:19 [place] Bodies Not Reportable 03/29/20 14:19 [place] Rings Not Reportable 03/29/20 14:19 [place] Cells Not Reportable 03/29/20 14:19 Bite Cells Not Reportable 03/29/20 14:19 Crenated Cell Not Reportable 03/29/20 14:19 Elliptocytes Not Reportable 03/29/20 14:19 Acanthocytes (Spur) Not Reportable 03/29/20 14:19 Rouleaux Not Reportable 03/29/20 14:19 Hemoglobin C Crystals Not Reportable 03/29/20 14:19 Schistocytes Not Reportable 03/29/20 14:19 Malaria parasites Not Reportable 03/29/20 14:19 Steven Bodies Not Reportable 03/29/20 14:19 Hem Pathologist Commnt No 03/29/20 14:19 PT 12.7 Sec. (12.2-14.9) 03/19/20 08:08 INR 0.94 (0.87-1.13) 03/19/20 08:08 APTT 27.7 Sec. (24.2-36.6) 03/18/20 18:28 Heparin Anti-Xa Level 0.10 U.I./ml (0.3-0.7) L 03/25/20 04:06 ABG pH 7.405 pH Units (7.350-7.450) 03/20/20 04:35 ABG pCO2 40.3 mm Hg 03/20/20 04:35 ABG pO2 68.3 mm Hg (80.0-90.0) L 03/20/20 04:35 ABG HCO3 24.6 mmol/L (20.0-26.0) 03/20/20 04:35 ABG O2 Saturation 94.3 % (95.0-99.0) L 03/20/20 04:35 ABG O2 Content 9.3 (0.0-44) 03/20/20 04:35 ABG Base Excess -0.1 mmol/L (-2.0-3.0) 03/20/20 04:35 ABG Hemoglobin 7.1 gm/dl (14.0-18.0) L 03/20/20 04:35 ABG Carboxyhemoglobin 1.8 % (0.0-5.0) 03/20/20 04:35 ABG Methemoglobin 0.4 % (0.0-1.5) 03/20/20 04:35 Oxyhemoglobin 92.3 % (95.0-99.0) L 03/20/20 04:35 FiO2 35 % 03/20/20 04:35 Sodium 134 mmol/L (137-145) L 03/28/20 07:39 Potassium 4.9 mmol/L (3.6-5.0) 03/28/20 07:39 Chloride 100.1 mmol/L (98-107) 03/28/20 07:39 Carbon Dioxide 19 mmol/L (22-30) L 03/28/20 07:39 Anion Gap 20 mmol/L 03/28/20 07:39 BUN 47 mg/dL (9-20) H 03/28/20 07:39 Creatinine 1.3 mg/dL (0.8-1.3) 03/28/20 07:39 Estimated GFR 57 ml/min 03/28/20 07:39 BUN/Creatinine Ratio 36 % 03/28/20 07:39 Glucose 240 mg/dL (75-100) H 03/28/20 07:39 POC Glucose 100 (70-105) 03/30/20 07:40 Hemoglobin A1c 11.0 % (4-6) H 03/18/20 22:21 Calcium 7.8 mg/dL (8.4-10.2) L 03/28/20 07:39 Magnesium 2.20 mg/dL (1.7-2.3) 03/28/20 07:39 Total Creatine Kinase 7255 units/L (55-170) H 03/19/20 08:08 CK-MB (CK-2) 79.3 ng/mL (0.0-4.0) H 03/19/20 08:08 CK-MB (CK-2) Rel Index 1.0 (0-4) 03/19/20 08:08 Troponin T 3.200 ng/mL (0.00-0.029) H* D 03/20/20 05:12 Triglycerides 188 mg/dL (2-149) H 03/18/20 18:28 Cholesterol 199 mg/dL (50-199) 03/18/20 18:28 LDL Cholesterol Direct 141 mg/dL (50-130) H 03/18/20 18:28 HDL Cholesterol 47 mg/dL (40-59) 03/18/20 18:28 Cholesterol/HDL Ratio 4.23 % 03/18/20 18:28 Blood Type B POSITIVE 03/25/20 11:42 Antibody Screen Negative 03/25/20 11:42 Microbiology: Microbiology 03/28/20 15:12 Sputum - Expectorated Sputum Sputum Culture - Preliminary - Diagnostic Impressions Diagnostic Impressions: Echocardiogram 03/19/20 12:49 Transthoracic Echocardiogram Indication: CAD and Abnormal EKG HR: 110 Conclusions *The study is technically limited due to patient body habitus. *The left ventricular chamber size is mildly dilated. *Global left ventricular systolic function is moderate to severely decreased. *The estimated ejection fraction is 30-35%. *The basal inferolateral, and basal inferior wall segments are normal. *The mid inferolateral, mid inferior, apical lateral, and apical inferior wall segments are akinetic. *The left atrial chamber size is normal. Findings Procedure Info: The study is technically limited due to patient body habitus. The study was technically limited due to the patient's inability to lay in the left lateral decubitus position. Left Ventricle: The left ventricular chamber size is mildly dilated. Global left ventricular systolic function is moderate to severely decreased. The estimated ejection fraction is 30-35%. The basal inferolateral, and basal inferior wall segments are normal. The mid inferolateral, mid inferior, apical lateral, and apical inferior wall segments are akinetic. Left Atrium: The left atrial chamber size is normal. Right Ventricle: The right ventricle is not well visualized. Right Atrium: The right atrium is not well visualized. The right atrial cavity size is normal. Aortic Valve: The aortic valve is trileaflet. Mitral Valve: The mitral valve leaflets are moderately thickened. There is mild mitral regurgitation. Tricuspid Valve: The tricuspid valve is not well visualized. There is trace tricuspid regurgitation. Pulmonic Valve: The pulmonic valve is not well visualized. Pericardium: There is no pericardial effusion. Aorta: The aorta appears normal. Venous: The venous system is not well visualized. Contrast: Definity was used to optimize study. Measurements Chambers 2D Name Value Normal Range IVSd (2D) 0.94 cm (0.6 - 1.1) LVPWd (2D) 0.94 cm (0.6 - 1.1) LVIDd (2D) 6.15 cm (3.7 - 5.6) LVIDs (2D) 5.2 cm (2 - 3.8) LV FS (2D) 15.5 % - EF Teichholz (2D) 32.08 % - Ao root diameter (2D) 2.77 cm (2 - 3.7) Volumes/Mass Name Value Normal Range LA ESV SP 4CH (A/L) 73.77 ml - LA ESV SP 2CH (A/L) 66.45 ml - LA ESV BP (A/L) 71.61 ml - LA ESV BP (A/L) index 30.6 ml/m2 - LA ESV SP 4CH (MOD) 72.55 ml - LA ESV SP 2CH (MOD) 65.34 ml - LA ESV BP (MOD) 70.27 ml - LA ESV BP (MOD) index 30.03 ml/m2 - Diastolic/Systolic Function Name Value Normal Range MV E-wave Vmax 0.85 m/sec - MV deceleration time 69.14 msec - MV A-wave Vmax 0.89 m/sec - MV E:A ratio 0.95 ratio - Aortic Valve Name Value Normal Range AV Vmax 0.96 m/sec - AV VTI 11.83 cm - AV peak gradient 3.68 mmHg - AV mean gradient 1.6 mmHg - LVOT diameter 2.19 cm - LVOT Vmax 0.86 m/sec - LVOT VTI 13.33 cm - LVOT peak gradient 2.96 mmHg - LVOT mean gradient 1.48 mmHg - SV LVOT 50.08 ml - DEYA (continuity Vmax) 3.37 cm2 - DEYA (continuity VTI) 4.23 cm2 - Ascending Ao 2.92 cm - Pulmonic Valve/Qp:Qs Name Value Normal Range PV Vmax 1.08 m/sec - PV VTI 15.88 cm - PV peak gradient 4.7 mmHg - PV mean gradient 2.18 mmHg - RVOT Vmax 0.82 m/sec - RVOT VTI 11.48 cm - RVOT peak gradient 2.67 mmHg - Wallmotion BAS Not Seen BA Not Seen BAL Not Seen BAY Normal BI Normal BIS Not Seen MAS Not Seen MA Not Seen MAL Not Seen MIL Akinetic NM Akinetic MIS Not Seen Not Seen AA Not Seen AL Akinetic AI Akinetic APEX Not Seen Tyson/IV: Voiding Method Urinal IV Catheter Type [Right Peripheral IV Forearm] IV Catheter Type [Right INT / Saline Lock Antecubital] IV Catheter Type [Left Upper Peripheral IV arm] IV Catheter Type [Left INT / Saline Lock Antecubital] Active Medications - Current Medications Current Medications: Generic Name Dose Route Start Last Admin Trade Name Freq PRN Reason Stop Dose Admin Acetaminophen/Hydrocodone Bitart 2 each 03/22/20 17:18 03/30/20 01:25 [place] 5/325 PO 2 each Q4H PRN Administration Pain, Moderate (4-6) Apixaban 5 mg 03/26/20 22:00 03/30/20 11:26 Eliquis PO 5 mg Q12HR LOI Administration Protocol Arformoterol Tartrate 15 mcg 03/19/20 20:00 03/30/20 08:36 Brovana Nebu IH 15 mcg Q12HRT LOI Administration Atorvastatin Calcium 40 mg 03/19/20 22:00 03/29/20 22:53 Lipitor PO 40 mg QHS LOI Administration Budesonide 0.5 mg 03/19/20 20:00 03/30/20 08:36 Pulmicort IH 0.5 mg Q12HRT LOI Administration Clopidogrel Bisulfate 75 mg 03/19/20 10:00 03/30/20 11:26 Plavix PO 75 mg QDAY LOI Administration Dextrose 50 ml 03/18/20 22:21 D50w (25gm) Syringe IV Q30MIN PRN Hypoglycemia Protocol Diphenhydramine HCl 25 mg 03/19/20 12:44 Benadryl IV Q4H PRN Itching Hydromorphone HCl 0.5 mg 03/25/20 13:48 Dilaudid IV Q10MIN PRN Pain , Severe (7-10) Hydromorphone/Sodium Chloride 0 mg 03/19/20 13:00 03/30/20 02:09 Dilaudid Wire Inspector 6mg/30ml IV 1 cart DIRECT LOI Administration Protocol Piperacillin Sod/Tazobactam Sod 4.5 gm in 100 mls @ 200 mls/hr 03/28/20 14:00 03/30/20 05:09 Zosyn/Ns 4.5gm/100ml IV 100 mls/hr Q8HR LOI Administration Sodium Chloride 500 mls @ 2 mls/hr 03/28/20 22:00 03/28/20 21:53 Nacl 0.9% 500 Ml IV 2 mls/hr DIRECT LOI Administration Insulin Glargine 25 units 03/22/20 22:00 03/29/20 22:46 Lantus SUB-Q 25 units QHS LOI Administration Insulin Human Lispro 0 unit 03/20/20 16:30 03/30/20 08:21 Humalog SUB-Q Not Given ACHS OLI Protocol Insulin Human Lispro 8 unit 03/28/20 11:30 03/30/20 09:21 Humalog SUB-Q 8 unit AC LOI Administration Magnesium Hydroxide 30 ml 03/18/20 22:21 Milk Of Magnesia PO Q4H PRN Constipation Metoprolol Tartrate 50 mg 03/19/20 22:00 03/30/20 11:26 Metoprolol PO 50 mg BID LOI Administration Naloxone HCl 0.1 mg 03/19/20 12:44 Naloxone IV Q2MIN PRN Res Rate </= 8 or 02 SAT < 92% Ondansetron HCl 4 mg 03/18/20 22:21 Zofran IV Q8H PRN Nausea And Vomiting Pantoprazole Sodium 40 mg 03/20/20 10:00 03/30/20 11:26 Protonix PO 40 mg BID LOI Administration Pregabalin 150 mg 03/22/20 22:00 03/30/20 11:26 Pregabalin PO 150 mg BID LOI Administration Sodium Chloride 10 ml 03/19/20 10:00 03/29/20 23:33 Sodium Chloride Flush Syringe 10 Ml IV Not Given BID LOI Sodium Chloride 10 ml 03/18/20 22:21 03/22/20 19:52 Sodium Chloride Flush Syringe 10 Ml IV 10 ml PRN PRN Administration LINE FLUSH Nutrition/Malnutrition Assess - Dietary Evaluation Nutrition/Malnutrition Findings: Nutrition Notes Start: 03/19/20 11:59 Freq: Status: Active Protocol: Document 03/28/20 13:11 DAYO (Rec: 03/28/20 13:21 DAYO [email or web address]) Nutrition Notes Initial or Follow up Assessment Current Diagnosis COPD,Diabetes Other Pertinent Diagnosis (L) LE ischemia s/p (L) BKA, STARR, NSTEMI Current Diet Cardiac/Consistent CHO Labs/Tests Na 134 (likely 136-137) BG 240 BUN 47 Pertinent Medications Dilaudid [employer], Lantus Height 6 ft Weight 123.2 kg [place] Body Weight (kg) 80.90 BMI 36.8 Weight change and time frame AdjBW for amputation: 130.9kg Adj BMI: 39 Weight Status Obese Subjective/Other Information Spoke with pt via phone at 12: 36. He says his appetite is " not the best", but he eats. PO intakes vary from 25-100%; he denies need for ONS at this time. He verbalizes a few food preferences. Burn Absent Trauma Absent Current % PO Fair (50-74%) Minimum of two criteria No #1 Nutrition Diagnosis Increased nutrient needs ( specify in comment below) Etiology increased demands of healing As Evidenced by Signs and Symptoms s/p recent BKA Is patient on ventilator? No Is Patient Ambulatory and/or Out of Bed No REE-([facility]-confined to bed) 2529.804 Kcal/Kg value to use for calculation 17 Approximate Energy Requirements Using 2094 kcal/Kg Calculation Used for Recommendations Kcal/kg Additional Notes Pro needs 1-1.2g/kg adjBW (not for amputation): 102-122g/day Fluid needs 1ml/kcal Nutrition Intervention Change Diet Order: Continue current diet order; honor food preferences Goal #1 PO intakes to meet at least 75 % energy and pro needs Goal #2 Healing of surgical site Anticipated Discharge Needs: Heart-healthy/CHO-controlled diet Follow-Up By: 04/02/20 Additional Comments F/U: intakes
--- NOTE | 2020-03-30 18:48 | Progress Note ---
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 Patient Obese. Complaining pain in left leg. Patient presently on CPAP and O2 saturation running 96%. Chest xray 03/26/20 reported Stable cardiomegaly. New right lower lobe infiltrate or congestive changes. ABG FIO2 35%. ABG pH 7.405 pH Units (7.350-7.450) 03/20/20 04:35 ABG pCO2 40.3 mm Hg 03/20/20 04:35 ABG pO2 68.3 mm Hg (80.0-90.0) L 03/20/20 04:35 ABG O2 Saturation 94.3 % (95.0-99.0) L 03/20/20 04:35 Patient afebrile and has leukocytosis Patient is on I/V Zosyn. Patient is on Apixaban. Patient is on Protonix for GI prophylaxis. Recommend incentive spirometry. Patient blood pressure running slightly low. Patient give I/V fluid bolus NSS. 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 (2) Cardiomyopathy Current Visit: Yes Status: Acute Plan to address problem: Management as per primary care and cardiology. (3) Elevated troponin Current Visit: Yes Status: Acute Plan to address problem: Management as per primary care and cardiology. (4) Hx of two vessel coronary artery bypass graft Current Visit: Yes Status: Acute Plan to address problem: Management as per cardiology. (5) NSTEMI (non-ST elevated myocardial infarction) Current Visit: Yes Status: Acute Plan to address problem: Management as per cardiology. (6) HTN (hypertension) Current Visit: Yes Status: Chronic Plan to address problem: Management as per primary care. (7) History of CVA (cerebrovascular accident) Current Visit: Yes Status: Chronic Plan to address problem: management as per primary care. (8) Smoker Current Visit: Yes Status: Chronic Plan to address problem: Counseled to stop smoking. 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 Patient Obese. Complaining pain in left leg. Patient presently on CPAP and O2 saturation running 96%. Chest xray 03/26/20 reported Stable cardiomegaly. New right lower lobe infiltrate or congestive changes. ABG FIO2 35%. ABG pH 7.405 pH Units (7.350-7.450) 03/20/20 04:35 ABG pCO2 40.3 mm Hg 03/20/20 04:35 ABG pO2 68.3 mm Hg (80.0-90.0) L 03/20/20 04:35 ABG O2 Saturation 94.3 % (95.0-99.0) L 03/20/20 04:35 Patient afebrile and has leukocytosis Patient is on I/V Zosyn. Patient is on Apixaban. Patient is on Protonix for GI prophylaxis. Recommend incentive spirometry. Patient blood pressure running slightly low. Patient give I/V fluid bolus NSS. Objective Vital Signs - 12hr 03/30/20 03/30/20 03/30/20 07:26 08:36 09:44 Temperature 98.2 F Pulse Rate 75 Pulse Rate [ 82 Anterior Bilateral Throughout] Respiratory 18 Rate Respiratory 20 Rate [Anterior Bilateral Throughout] Respiratory 18 Rate [left foot ] Blood Pressure 90/58 O2 Sat by Pulse 100 Oximetry 03/30/20 03/30/20 03/30/20 10:00 10:46 15:03 Temperature 98.1 F 98.1 F Pulse Rate 74 85 Pulse Rate [ Anterior Bilateral Throughout] Respiratory 24 18 18 Rate Respiratory Rate [Anterior Bilateral Throughout] Respiratory Rate [left foot ] Blood Pressure 88/55 89/57 O2 Sat by Pulse 96 98 98 Oximetry Constitutional: no acute distress, alert, other (middle aged obese male with mildly increased respiratory effort at rest) Eyes: non-icteric ENT: oropharynx moist Neck: supple, no lymphadenopathy, no JVD Effort: mildly labored Ascultation: Bilateral: diminished breath sounds Percussion: Bilateral: not dull Cardiovascular: regular rate and rhythm Gastrointestinal: normoactive bowel sounds, soft, non-tender, non-distended (protuberant) Integumentary: rash Extremities: cool, edema, other (left BKA with clean dressing) Neurologic: normal mental status, non-focal exam, pupils equal and round, motor strength normal and Psychiatric: mood appropriate, affect normal CBC and BMP: 03/29/20 14:19 03/28/20 07:39 ABG, PT/INR, D-dimer: ABG ABG pH 7.405 pH Units (7.350-7.450) 03/20/20 04:35 ABG pCO2 40.3 mm Hg 03/20/20 04:35 ABG pO2 68.3 mm Hg (80.0-90.0) L 03/20/20 04:35 ABG O2 Saturation 94.3 % (95.0-99.0) L 03/20/20 04:35 PT/INR, D-dimer PT 12.7 Sec. (12.2-14.9) 03/19/20 08:08 INR 0.94 (0.87-1.13) 03/19/20 08:08 Abnormal lab findings: Abnormal Labs 03/18/20 03/18/20 03/18/20 18:28 18:28 20:56 WBC 12.3 H RBC Hgb Hct Lymph % (Auto) 11.0 L Mcdonough % (Auto) 9.8 H Mcdonough # 1.2 H Seg Neutrophils % 78.4 H Seg Neuts % (Manual) Lymphocytes % (Manual) Nucleated RBC % Seg Neutrophils # 9.6 H Seg Neutrophils # Man Lymphocytes # (Manual) Monocytes # (Manual) Eosinophils # (Manual) Heparin Anti-Xa Level ABG pO2 ABG HCO3 ABG O2 Saturation ABG Base Excess ABG Hemoglobin Oxyhemoglobin Sodium 132 L Potassium Chloride 91.9 L Carbon Dioxide 20 L BUN Creatinine 1.4 H Glucose 406 H POC Glucose Hemoglobin A1c Calcium Total Creatine Kinase 2727 H 2492 H CK-MB (CK-2) 135.9 H 107.2 H CK-MB (CK-2) Rel Index 4.3 H Troponin T 5.110 H* 3.960 H* D Triglycerides 188 H LDL Cholesterol Direct 141 H 03/18/20 03/19/20 03/19/20 22:21 01:57 08:08 WBC RBC Hgb Hct Lymph % (Auto) Mcdonough % (Auto) Mcdonough # Seg Neutrophils % Seg Neuts % (Manual) Lymphocytes % (Manual) Nucleated RBC % Seg Neutrophils # Seg Neutrophils # Man Lymphocytes # (Manual) Monocytes # (Manual) Eosinophils # (Manual) Heparin Anti-Xa Level ABG pO2 ABG HCO3 ABG O2 Saturation ABG Base Excess ABG Hemoglobin Oxyhemoglobin Sodium Potassium Chloride Carbon Dioxide BUN Creatinine Glucose POC Glucose 317 H Hemoglobin A1c 11.0 H Calcium Total Creatine Kinase 7255 H CK-MB (CK-2) 79.3 H CK-MB (CK-2) Rel Index Troponin T 5.540 H* D Triglycerides LDL Cholesterol Direct 03/19/20 03/19/20 03/19/20 08:08 08:08 08:08 WBC 13.3 H RBC Hgb Hct Lymph % (Auto) 10.7 L Mcdonough % (Auto) 8.5 H Mcdonough # 1.1 H Seg Neutrophils % 80.0 H Seg Neuts % (Manual) Lymphocytes % (Manual) Nucleated RBC % Seg Neutrophils # 10.6 H Seg Neutrophils # Man Lymphocytes # (Manual) Monocytes # (Manual) Eosinophils # (Manual) Heparin Anti-Xa Level 0.10 L ABG pO2 ABG HCO3 ABG O2 Saturation ABG Base Excess ABG Hemoglobin Oxyhemoglobin Sodium 133 L Potassium 5.1 H Chloride Carbon Dioxide 17 L BUN 23 H Creatinine Glucose 313 H POC Glucose Hemoglobin A1c Calcium Total Creatine Kinase CK-MB (CK-2) CK-MB (CK-2) Rel Index Troponin T Triglycerides LDL Cholesterol Direct 03/19/20 03/19/20 03/19/20 15:40 18:23 21:32 WBC RBC Hgb Hct Lymph % (Auto) Mcdonough % (Auto) Mcdonough # Seg Neutrophils % Seg Neuts % (Manual) Lymphocytes % (Manual) Nucleated RBC % Seg Neutrophils # Seg Neutrophils # Man Lymphocytes # (Manual) Monocytes # (Manual) Eosinophils # (Manual) Heparin Anti-Xa Level < 0.10 L ABG pO2 ABG HCO3 18.3 L ABG O2 Saturation ABG Base Excess -5.4 L ABG Hemoglobin 12.2 L Oxyhemoglobin 94.6 L Sodium Potassium Chloride Carbon Dioxide BUN Creatinine Glucose POC Glucose 348 H Hemoglobin A1c Calcium Total Creatine Kinase CK-MB (CK-2) CK-MB (CK-2) Rel Index Troponin T Triglycerides LDL Cholesterol Direct 03/20/20 03/20/20 03/20/20 04:35 05:12 05:12 WBC 11.1 H RBC 3.63 L Hgb 11.0 L Hct 32.7 L D Lymph % (Auto) Mcdonough % (Auto) 8.1 H Mcdonough # 0.9 H Seg Neutrophils % 75.8 H Seg Neuts % (Manual) Lymphocytes % (Manual) Nucleated RBC % Seg Neutrophils # 8.4 H Seg Neutrophils # Man Lymphocytes # (Manual) Monocytes # (Manual) Eosinophils # (Manual) Heparin Anti-Xa Level 0.28 L ABG pO2 68.3 L ABG HCO3 ABG O2 Saturation 94.3 L ABG Base Excess ABG Hemoglobin 7.1 L Oxyhemoglobin 92.3 L Sodium Potassium Chloride Carbon Dioxide BUN Creatinine Glucose POC Glucose Hemoglobin A1c Calcium Total Creatine Kinase CK-MB (CK-2) CK-MB (CK-2) Rel Index Troponin T Triglycerides LDL Cholesterol Direct 03/20/20 03/20/20 03/20/20 05:12 07:49 12:15 WBC RBC Hgb Hct Lymph % (Auto) Mcdonough % (Auto) Mcdonough # Seg Neutrophils % Seg Neuts % (Manual) Lymphocytes % (Manual) Nucleated RBC % Seg Neutrophils # Seg Neutrophils # Man Lymphocytes # (Manual) Monocytes # (Manual) Eosinophils # (Manual) Heparin Anti-Xa Level ABG pO2 ABG HCO3 ABG O2 Saturation ABG Base Excess ABG Hemoglobin Oxyhemoglobin Sodium 134 L Potassium Chloride Carbon Dioxide 21 L BUN 23 H Creatinine Glucose 275 H POC Glucose 294 H 357 H Hemoglobin A1c Calcium Total Creatine Kinase CK-MB (CK-2) CK-MB (CK-2) Rel Index Troponin T 3.200 H* D Triglycerides LDL Cholesterol Direct 03/20/20 03/20/20 03/21/20 17:16 22:08 04:44 WBC RBC Hgb Hct Lymph % (Auto) Mcdonough % (Auto) Mcdonough # Seg Neutrophils % Seg Neuts % (Manual) Lymphocytes % (Manual) Nucleated RBC % Seg Neutrophils # Seg Neutrophils # Man Lymphocytes # (Manual) Monocytes # (Manual) Eosinophils # (Manual) Heparin Anti-Xa Level ABG pO2 ABG HCO3 ABG O2 Saturation ABG Base Excess ABG Hemoglobin Oxyhemoglobin Sodium 136 L Potassium Chloride Carbon Dioxide 18 L BUN 26 H Creatinine Glucose 266 H POC Glucose 327 H 292 H Hemoglobin A1c Calcium 8.1 L Total Creatine Kinase CK-MB (CK-2) CK-MB (CK-2) Rel Index Troponin T Triglycerides LDL Cholesterol Direct 03/21/20 03/21/20 03/21/20 07:50 12:25 15:53 WBC RBC Hgb Hct Lymph % (Auto) Mcdonough % (Auto) Mcdonough # Seg Neutrophils % Seg Neuts % (Manual) Lymphocytes % (Manual) Nucleated RBC % Seg Neutrophils # Seg Neutrophils # Man Lymphocytes # (Manual) Monocytes # (Manual) Eosinophils # (Manual) Heparin Anti-Xa Level ABG pO2 ABG HCO3 ABG O2 Saturation ABG Base Excess ABG Hemoglobin Oxyhemoglobin Sodium Potassium Chloride Carbon Dioxide BUN Creatinine Glucose POC Glucose 271 H 314 H 436 H Hemoglobin A1c Calcium Total Creatine Kinase CK-MB (CK-2) CK-MB (CK-2) Rel Index Troponin T Triglycerides LDL Cholesterol Direct 03/21/20 03/21/20 03/22/20 17:44 21:55 04:33 WBC RBC Hgb 10.0 L Hct 29.4 L Lymph % (Auto) Mcdonough % (Auto) Mcdonough # Seg Neutrophils % Seg Neuts % (Manual) Lymphocytes % (Manual) Nucleated RBC % Seg Neutrophils # Seg Neutrophils # Man Lymphocytes # (Manual) Monocytes # (Manual) Eosinophils # (Manual) Heparin Anti-Xa Level ABG pO2 ABG HCO3 ABG O2 Saturation ABG Base Excess ABG Hemoglobin Oxyhemoglobin Sodium Potassium Chloride Carbon Dioxide BUN Creatinine Glucose POC Glucose 362 H 329 H Hemoglobin A1c Calcium Total Creatine Kinase CK-MB (CK-2) CK-MB (CK-2) Rel Index Troponin T Triglycerides LDL Cholesterol Direct 03/22/20 03/22/20 03/22/20 08:57 14:12 19:57 WBC RBC Hgb Hct Lymph % (Auto) Mcdonough % (Auto) Mcdonough # Seg Neutrophils % Seg Neuts % (Manual) Lymphocytes % (Manual) Nucleated RBC % Seg Neutrophils # Seg Neutrophils # Man Lymphocytes # (Manual) Monocytes # (Manual) Eosinophils # (Manual) Heparin Anti-Xa Level ABG pO2 ABG HCO3 ABG O2 Saturation ABG Base Excess ABG Hemoglobin Oxyhemoglobin Sodium Potassium Chloride Carbon Dioxide BUN Creatinine Glucose POC Glucose 284 H 319 H 356 H Hemoglobin A1c Calcium Total Creatine Kinase CK-MB (CK-2) CK-MB (CK-2) Rel Index Troponin T Triglycerides LDL Cholesterol Direct 03/22/20 03/23/20 03/23/20 21:44 08:18 12:46 WBC RBC Hgb Hct Lymph % (Auto) Mcdonough % (Auto) Mcdonough # Seg Neutrophils % Seg Neuts % (Manual) Lymphocytes % (Manual) Nucleated RBC % Seg Neutrophils # Seg Neutrophils # Man Lymphocytes # (Manual) Monocytes # (Manual) Eosinophils # (Manual) Heparin Anti-Xa Level ABG pO2 ABG HCO3 ABG O2 Saturation ABG Base Excess ABG Hemoglobin Oxyhemoglobin Sodium Potassium Chloride Carbon Dioxide BUN Creatinine Glucose POC Glucose 336 H 215 H 262 H Hemoglobin A1c Calcium Total Creatine Kinase CK-MB (CK-2) CK-MB (CK-2) Rel Index Troponin T Triglycerides LDL Cholesterol Direct 03/23/20 03/23/20 03/24/20 15:56 22:05 02:35 WBC RBC Hgb 9.0 L Hct 25.8 L Lymph % (Auto) Mcdonough % (Auto) Mcdonough # Seg Neutrophils % Seg Neuts % (Manual) Lymphocytes % (Manual) Nucleated RBC % Seg Neutrophils # Seg Neutrophils # Man Lymphocytes # (Manual) Monocytes # (Manual) Eosinophils # (Manual) Heparin Anti-Xa Level ABG pO2 ABG HCO3 ABG O2 Saturation ABG Base Excess ABG Hemoglobin Oxyhemoglobin Sodium Potassium Chloride Carbon Dioxide BUN Creatinine Glucose POC Glucose 246 H 322 H Hemoglobin A1c Calcium Total Creatine Kinase CK-MB (CK-2) CK-MB (CK-2) Rel Index Troponin T Triglycerides LDL Cholesterol Direct 03/24/20 03/24/20 03/24/20 07:38 11:45 16:02 WBC RBC Hgb Hct Lymph % (Auto) Mcdonough % (Auto) Mcdonough # Seg Neutrophils % Seg Neuts % (Manual) Lymphocytes % (Manual) Nucleated RBC % Seg Neutrophils # Seg Neutrophils # Man Lymphocytes # (Manual) Monocytes # (Manual) Eosinophils # (Manual) Heparin Anti-Xa Level ABG pO2 ABG HCO3 ABG O2 Saturation ABG Base Excess ABG Hemoglobin Oxyhemoglobin Sodium Potassium Chloride Carbon Dioxide BUN Creatinine Glucose POC Glucose 289 H 257 H 150 H Hemoglobin A1c Calcium Total Creatine Kinase CK-MB (CK-2) CK-MB (CK-2) Rel Index Troponin T Triglycerides LDL Cholesterol Direct 03/24/20 03/25/20 03/25/20 21:24 04:06 07:39 WBC RBC Hgb Hct Lymph % (Auto) Mcdonough % (Auto) Mcdonough # Seg Neutrophils % Seg Neuts % (Manual) Lymphocytes % (Manual) Nucleated RBC % Seg Neutrophils # Seg Neutrophils # Man Lymphocytes # (Manual) Monocytes # (Manual) Eosinophils # (Manual) Heparin Anti-Xa Level 0.10 L ABG pO2 ABG HCO3 ABG O2 Saturation ABG Base Excess ABG Hemoglobin Oxyhemoglobin Sodium Potassium Chloride Carbon Dioxide BUN Creatinine Glucose POC Glucose 228 H 332 H Hemoglobin A1c Calcium Total Creatine Kinase CK-MB (CK-2) CK-MB (CK-2) Rel Index Troponin T Triglycerides LDL Cholesterol Direct 03/25/20 03/25/20 03/25/20 08:13 09:30 11:59 WBC 13.1 H RBC 2.82 L Hgb 8.5 L Hct 26.1 L Lymph % (Auto) Mcdonough % (Auto) Mcdonough # Seg Neutrophils % Seg Neuts % (Manual) Lymphocytes % (Manual) Nucleated RBC % Seg Neutrophils # Seg Neutrophils # Man Lymphocytes # (Manual) Monocytes # (Manual) Eosinophils # (Manual) Heparin Anti-Xa Level ABG pO2 ABG HCO3 ABG O2 Saturation ABG Base Excess ABG Hemoglobin Oxyhemoglobin Sodium 131 L Potassium 5.3 H Chloride Carbon Dioxide 20 L BUN 39 H Creatinine 1.4 H Glucose 313 H POC Glucose 273 H Hemoglobin A1c Calcium 8.1 L Total Creatine Kinase CK-MB (CK-2) CK-MB (CK-2) Rel Index Troponin T Triglycerides LDL Cholesterol Direct 03/25/20 03/25/20 03/25/20 13:54 15:58 18:21 WBC RBC Hgb Hct Lymph % (Auto) Mcdonough % (Auto) Mcdonough # Seg Neutrophils % Seg Neuts % (Manual) Lymphocytes % (Manual) Nucleated RBC % Seg Neutrophils # Seg Neutrophils # Man Lymphocytes # (Manual) Monocytes # (Manual) Eosinophils # (Manual) Heparin Anti-Xa Level ABG pO2 ABG HCO3 ABG O2 Saturation ABG Base Excess ABG Hemoglobin Oxyhemoglobin Sodium Potassium Chloride Carbon Dioxide BUN Creatinine Glucose POC Glucose 246 H 235 H 185 H Hemoglobin A1c Calcium Total Creatine Kinase CK-MB (CK-2) CK-MB (CK-2) Rel Index Troponin T Triglycerides LDL Cholesterol Direct 03/25/20 03/26/20 03/26/20 20:45 05:15 06:59 WBC 17.4 H 15.6 H RBC 3.05 L 3.05 L Hgb 9.1 L 9.2 L Hct 28.2 L 27.9 L Lymph % (Auto) 8.9 L 8.9 L Mcdonough % (Auto) Mcdonough # 1.0 H Seg Neutrophils % 84.4 H 84.8 H Seg Neuts % (Manual) Lymphocytes % (Manual) Nucleated RBC % Seg Neutrophils # 14.7 H 13.2 H Seg Neutrophils # Man Lymphocytes # (Manual) Monocytes # (Manual) Eosinophils # (Manual) Heparin Anti-Xa Level ABG pO2 ABG HCO3 ABG O2 Saturation ABG Base Excess ABG Hemoglobin Oxyhemoglobin Sodium Potassium Chloride Carbon Dioxide BUN Creatinine Glucose POC Glucose 178 H Hemoglobin A1c Calcium Total Creatine Kinase CK-MB (CK-2) CK-MB (CK-2) Rel Index Troponin T Triglycerides LDL Cholesterol Direct 03/26/20 03/26/20 03/26/20 06:59 07:43 11:56 WBC RBC Hgb Hct Lymph % (Auto) Mcdonough % (Auto) Mcdonough # Seg Neutrophils % Seg Neuts % (Manual) Lymphocytes % (Manual) Nucleated RBC % Seg Neutrophils # Seg Neutrophils # Man Lymphocytes # (Manual) Monocytes # (Manual) Eosinophils # (Manual) Heparin Anti-Xa Level ABG pO2 ABG HCO3 ABG O2 Saturation ABG Base Excess ABG Hemoglobin Oxyhemoglobin Sodium 131 L Potassium 5.8 H Chloride Carbon Dioxide 16 L BUN 42 H Creatinine 1.4 H Glucose 163 H POC Glucose 170 H 198 H Hemoglobin A1c Calcium 8.0 L Total Creatine Kinase CK-MB (CK-2) CK-MB (CK-2) Rel Index Troponin T Triglycerides LDL Cholesterol Direct 03/26/20 03/26/20 03/26/20 13:58 16:16 21:00 WBC RBC Hgb Hct Lymph % (Auto) Mcdonough % (Auto) Mcdonough # Seg Neutrophils % Seg Neuts % (Manual) Lymphocytes % (Manual) Nucleated RBC % Seg Neutrophils # Seg Neutrophils # Man Lymphocytes # (Manual) Monocytes # (Manual) Eosinophils # (Manual) Heparin Anti-Xa Level ABG pO2 ABG HCO3 ABG O2 Saturation ABG Base Excess ABG Hemoglobin Oxyhemoglobin Sodium 128 L Potassium 6.0 H Chloride Carbon Dioxide 15 L BUN 45 H Creatinine 1.4 H Glucose 190 H POC Glucose 184 H 192 H Hemoglobin A1c Calcium 8.2 L Total Creatine Kinase CK-MB (CK-2) CK-MB (CK-2) Rel Index Troponin T Triglycerides LDL Cholesterol Direct 03/27/20 03/27/20 03/27/20 08:32 11:51 14:39 WBC 22.9 H RBC 2.68 L Hgb 7.9 L Hct 24.7 L Lymph % (Auto) Mcdonough % (Auto) Mcdonough # Seg Neutrophils % Seg Neuts % (Manual) Lymphocytes % (Manual) Nucleated RBC % Seg Neutrophils # Seg Neutrophils # Man Lymphocytes # (Manual) Monocytes # (Manual) Eosinophils # (Manual) Heparin Anti-Xa Level ABG pO2 ABG HCO3 ABG O2 Saturation ABG Base Excess ABG Hemoglobin Oxyhemoglobin Sodium Potassium Chloride Carbon Dioxide BUN Creatinine Glucose POC Glucose 233 H 252 H Hemoglobin A1c Calcium Total Creatine Kinase CK-MB (CK-2) CK-MB (CK-2) Rel Index Troponin T Triglycerides LDL Cholesterol Direct 03/27/20 03/27/20 03/27/20 14:39 15:19 21:35 WBC RBC Hgb Hct Lymph % (Auto) Mcdonough % (Auto) Mcdonough # Seg Neutrophils % Seg Neuts % (Manual) Lymphocytes % (Manual) Nucleated RBC % Seg Neutrophils # Seg Neutrophils # Man Lymphocytes # (Manual) Monocytes # (Manual) Eosinophils # (Manual) Heparin Anti-Xa Level ABG pO2 ABG HCO3 ABG O2 Saturation ABG Base Excess ABG Hemoglobin Oxyhemoglobin Sodium 133 L Potassium 5.5 H Chloride Carbon Dioxide 16 L BUN 46 H Creatinine 1.4 H Glucose 225 H POC Glucose 239 H 202 H Hemoglobin A1c Calcium 8.2 L Total Creatine Kinase CK-MB (CK-2) CK-MB (CK-2) Rel Index Troponin T Triglycerides LDL Cholesterol Direct 03/28/20 03/28/20 03/28/20 07:39 07:39 08:36 WBC 22.4 H RBC 2.71 L Hgb 7.9 L Hct 24.5 L Lymph % (Auto) Mcdonough % (Auto) Mcdonough # Seg Neutrophils % Seg Neuts % (Manual) 88.0 H Lymphocytes % (Manual) 5.0 L Nucleated RBC % Seg Neutrophils # Seg Neutrophils # Man 19.7 H Lymphocytes # (Manual) 1.1 L Monocytes # (Manual) 1.6 H Eosinophils # (Manual) Heparin Anti-Xa Level ABG pO2 ABG HCO3 ABG O2 Saturation ABG Base Excess ABG Hemoglobin Oxyhemoglobin Sodium 134 L Potassium Chloride Carbon Dioxide 19 L BUN 47 H Creatinine Glucose 240 H POC Glucose 253 H Hemoglobin A1c Calcium 7.8 L Total Creatine Kinase CK-MB (CK-2) CK-MB (CK-2) Rel Index Troponin T Triglycerides LDL Cholesterol Direct 03/28/20 03/28/20 03/28/20 11:54 17:08 21:17 WBC RBC Hgb Hct Lymph % (Auto) Mcdonough % (Auto) Mcdonough # Seg Neutrophils % Seg Neuts % (Manual) Lymphocytes % (Manual) Nucleated RBC % Seg Neutrophils # Seg Neutrophils # Man Lymphocytes # (Manual) Monocytes # (Manual) Eosinophils # (Manual) Heparin Anti-Xa Level ABG pO2 ABG HCO3 ABG O2 Saturation ABG Base Excess ABG Hemoglobin Oxyhemoglobin Sodium Potassium Chloride Carbon Dioxide BUN Creatinine Glucose POC Glucose 306 H 178 H 186 H Hemoglobin A1c Calcium Total Creatine Kinase CK-MB (CK-2) CK-MB (CK-2) Rel Index Troponin T Triglycerides LDL Cholesterol Direct 03/29/20 03/29/20 03/29/20 08:32 12:04 14:19 WBC 21.5 H RBC 2.82 L Hgb 8.4 L Hct 26.1 L Lymph % (Auto) Mcdonough % (Auto) Mcdonough # Seg Neutrophils % Seg Neuts % (Manual) 85.0 H Lymphocytes % (Manual) 11.0 L Nucleated RBC % 3.0 H Seg Neutrophils # Seg Neutrophils # Man 18.3 H Lymphocytes # (Manual) Monocytes # (Manual) Eosinophils # (Manual) 0.6 H Heparin Anti-Xa Level ABG pO2 ABG HCO3 ABG O2 Saturation ABG Base Excess ABG Hemoglobin Oxyhemoglobin Sodium Potassium Chloride Carbon Dioxide BUN Creatinine Glucose POC Glucose 110 H 263 H Hemoglobin A1c Calcium Total Creatine Kinase CK-MB (CK-2) CK-MB (CK-2) Rel Index Troponin T Triglycerides LDL Cholesterol Direct 03/29/20 03/29/20 03/30/20 16:17 22:57 11:00 WBC RBC Hgb Hct Lymph % (Auto) Mcdonough % (Auto) Mcdonough # Seg Neutrophils % Seg Neuts % (Manual) Lymphocytes % (Manual) Nucleated RBC % Seg Neutrophils # Seg Neutrophils # Man Lymphocytes # (Manual) Monocytes # (Manual) Eosinophils # (Manual) Heparin Anti-Xa Level ABG pO2 ABG HCO3 ABG O2 Saturation ABG Base Excess ABG Hemoglobin Oxyhemoglobin Sodium Potassium Chloride Carbon Dioxide BUN Creatinine Glucose POC Glucose 109 H 194 H 129 H Hemoglobin A1c Calcium Total Creatine Kinase CK-MB (CK-2) CK-MB (CK-2) Rel Index Troponin T Triglycerides LDL Cholesterol Direct 03/30/20 15:16 WBC RBC Hgb Hct Lymph % (Auto) Mcdonough % (Auto) Mcdonough # Seg Neutrophils % Seg Neuts % (Manual) Lymphocytes % (Manual) Nucleated RBC % Seg Neutrophils # Seg Neutrophils # Man Lymphocytes # (Manual) Monocytes # (Manual) Eosinophils # (Manual) Heparin Anti-Xa Level ABG pO2 ABG HCO3 ABG O2 Saturation ABG Base Excess ABG Hemoglobin Oxyhemoglobin Sodium Potassium Chloride Carbon Dioxide BUN Creatinine Glucose POC Glucose 115 H Hemoglobin A1c Calcium Total Creatine Kinase CK-MB (CK-2) CK-MB (CK-2) Rel Index Troponin T Triglycerides LDL Cholesterol Direct Allied health notes reviewed: nursing
[2020-03-30] MEDS: INSULIN GLARGINE 100 UNITS/ML SUB-Q SCH (22:45)
[2020-03-30] MEDS: SODIUM CHLORIDE 0.9% 500 ML 500 ML IV SCH (22:45)
[2020-03-31 05:25] LABS: Basophils % (Auto) 0.3 % (0.0-1.8); Eosinophils # (Auto) 0.3 K/mm3 (0.0-0.4); Eosinophils % (Auto) 1.8 % (0.0-4.3); Hematocrit 24.1 % (35.5-45.6); Hemoglobin 7.7 gm/dl (11.8-15.2); Lymphocytes # (Auto) 1.5 K/mm3 (1.2-5.4); Lymphocytes % (Auto) 9.4 % (13.4-35.0); Mean Corpuscular HGB Conc 32 % (32-34); Mean Corpuscular Volume 92 fl (84-94); Monocytes # (Auto) 0.7 K/mm3 (0.0-0.8); Monocytes % (Auto) 4.1 % (0.0-7.3); Platelet Count 337 K/mm3 (140-440); Red Blood Count 2.62 M/mm3 (3.65-5.03); Red Cell Distribution Width 14.6 % (13.2-15.2)
[2020-03-31] MEDS: HYDROcodone/ACETAMINOPHEN 5-325 MG TAB PO PRN ×3 (06:13→17:12)
[2020-03-31] MEDS: PIPERACIL/TAZOBACTA 4.5/NS 100 4.5 GM/100 ML VIAL IV SCH ×3 (06:40→22:25)
[2020-03-31] MEDS ORDERED: SODIUM CHLORIDE 0.9% 500 ML 500 ML IV ONE (08:21)
[2020-03-31] MEDS ORDERED: HYDROmorphone 1 MG/1 ML INJ IV PRN (09:00)
[2020-03-31] MEDS: ARFORMOTEROL 15 MCG/2 ML NEBU IH SCH ×2 (09:10→19:09)
[2020-03-31] MEDS: BUDESONIDE 0.5 MG/2 ML NEBU IH SCH ×2 (09:10→19:09)
[2020-03-31] MEDS: [UNRECOGNIZED DRUG - REMARK] SUB-Q SCH ×4 (09:13→22:00)
[2020-03-31] MEDS: PANTOPRAZOLE 40 MG TAB PO SCH ×2 (09:45→22:22)
[2020-03-31] MEDS: CLOPIDOGREL 75 MG TAB PO SCH (09:45)
[2020-03-31] MEDS: PREGABALIN 75 MG CAP PO SCH ×2 (09:45→22:23)
[2020-03-31] MEDS: APIXABAN 5 MG TAB PO SCH ×2 (09:46→22:24)
[2020-03-31] MEDS: METOPROLOL TARTRATE 50 MG TAB PO SCH (09:46)
[2020-03-31] MEDS: HYDROmorphone 1 MG/1 ML INJ IV PRN ×2 (09:46→13:27)
[2020-03-31] MEDS: INSULIN LISPRO 100 UNIT/ML VIAL 3 mL SUB-Q SCH ×3 (10:47→15:55)
--- NOTE | 2020-03-31 19:08 | Progress Note ---
Assessment and Plan Assessment and plan: --Hypotension; Current Visit: Yes Status: Acute patient EXERCISE SCIENTIST pump, advised to hold off And give low-dose Dilaudid every 6 hours as needed for pain Closely monitor blood pressures, fluid bolus as needed --Hyperkalemia; resolved Current Visit: Yes Status: Acute Follow electrolytes --Insomnia; Current Visit: Yes Status: Acute Optimal pain medications, sleeping aid Ambien 5 mg nightly --Acute left lower extremity ischemia,s/p Lt BKA Current Visit: Yes Status: Acute 03/19/2020 status post endovascular revascularization. 03/19/2020 s/p left LE, 4 compartment fasciotomy per vascular 03/25/2020 s/p left BKA on --SIRS; without organ dysfunction Current Visit: Yes Status: Acute leukocytosis, tachycardia --Non-ST elevation OR : Current Visit: Yes Status: Acute Patient has history of CABG patient denies any chest pain. Management per cardiology Per cardiology non-STEMI 2 Elevated troponins at the time of admission --Acute systolic CHF; EF 30-35%% Current Visit: Yes Status: Acute Beta-blockers, BIJAN inhibitor, diuretics Improved -- Hyperglycemia due to diabetes mellitus Current Visit: Yes Status: Acute Accu-Chek sliding scale coverage ADA diet Long-acting insulin as needed, X6o---94.0 --Nicotine dependence Current Visit: Yes Status: Acute Smoking cessation nicotine patch as needed --DVT prophylaxis Current Visit: Yes Status: Acute Patient currently on anticoagulation. -- Full code status Current Visit: Yes Status: Acute Patient is on heparin drip Discharge planning issues Disposition ;acute rehab placement, pending insurance authorization Monitor closely and adjust management as needed Plan of care reviewed with the patient and his nurse 03/19/2020 status post endovascular revascularization. 03/19/2020 s/p left lower extremity 4 compartment fasciotomy 03/25/2020; s/p left BKA on 03/26/20; evaluated by PT, recommend acute rehab 03/29/20; acute rehab facility from [facility] evaluated the patient Patient is not ready for acute rehab, they will reevaluate 03/30/20; complains of insomnia, add Ambien 03/31; patient is hypotensive, EXERCISE SCIENTIST pump discontinued. Added Dilaudid IV as needed History Interval history: I have seen and examined the patient at the bedside this afternoon Patient's charts and medications reviewed. Patient's blood pressures in the lower range On morphine EXERCISE SCIENTIST pump. Will hold EXERCISE SCIENTIST pump and add Dilaudid IV every 6 hours Patient is alert awake oriented, Vital signs reviewed Hospitalist Physical - Constitutional Vitals: Temp Pulse Resp BP Pulse Ox 98.2 F 91 H 25 H 95/52 95 03/31/20 07:23 03/31/20 10:00 03/31/20 10:00 03/31/20 09:46 03/31/20 10:00 General appearance: Present: no acute distress, well-nourished, obese (Morbidly) - EENT Eyes: Present: PERRL, EOM intact - Neck Neck: Present: supple, normal ROM - Respiratory Respiratory effort: normal Respiratory: bilateral: diminished, negative: rales, rhonchi, wheezing - Cardiovascular Rhythm: regular Heart Sounds: Present: S1 & S2 - Extremities Extremities: no ischemia, abnormal (Left BKA, wound clean) - Abdominal General gastrointestinal: soft, non-tender, non-distended, normal bowel sounds - Integumentary Integumentary: Present: clear, warm - Psychiatric Psychiatric: appropriate mood/affect, cooperative - Neurologic Neurologic: CNII-XII intact, moves all extremities HEART Score - HEART Score Troponin: Troponin T 3.200 ng/mL (0.00-0.029) H* D 03/20/20 05:12 Results - Labs CBC & Chem 7: 03/31/20 04:27 03/31/20 04:27 Labs: Laboratory Last Values WBC 15.8 K/mm3 (4.5-11.0) H 03/31/20 04:27 RBC 2.62 M/mm3 (3.65-5.03) L 03/31/20 04:27 Hgb 7.7 gm/dl (11.8-15.2) L 03/31/20 04:27 Hct 24.1 % (35.5-45.6) L 03/31/20 04:27 MCV 92 fl (84-94) 03/31/20 04:27 MCH 30 pg (28-32) 03/31/20 04:27 MCHC 32 % (32-34) 03/31/20 04:27 RDW 14.6 % (13.2-15.2) 03/31/20 04:27 Plt Count 337 K/mm3 (140-440) 03/31/20 04:27 Lymph % (Auto) 9.4 % (13.4-35.0) L 03/31/20 04:27 [place] % (Auto) 4.1 % (0.0-7.3) 03/31/20 04:27 Eos % (Auto) 1.8 % (0.0-4.3) 03/31/20 04:27 Baso % (Auto) 0.3 % (0.0-1.8) 03/31/20 04:27 Lymph # 1.5 K/mm3 (1.2-5.4) 03/31/20 04: [place] # 0.7 K/mm3 (0.0-0.8) 03/31/20 04: Eos # 0.3 K/mm3 (0.0-0.4) 03/31/20 04: Baso # 0.0 K/mm3 (0.0-0.1) 03/31/20 04:27 Add Manual Diff Complete 03/29/20 14:19 Total Counted 100 03/29/20 14:19 Seg Neutrophils % 84.4 % (40.0-70.0) H 03/31/20 04:27 Seg Neuts % (Manual) 85.0 % (40.0-70.0) H 03/29/20 14:19 Band Neutrophils % 0 % 03/29/20 14:19 Lymphocytes % (Manual) 11.0 % (13.4-35.0) L 03/29/20 14:19 Reactive Lymphs % (Man) 0 % 03/29/20 14:19 Monocytes % (Manual) 1.0 % (0.0-7.3) 03/29/20 14:19 Eosinophils % (Manual) 3.0 % (0.0-4.3) 03/29/20 14:19 Basophils % (Manual) 0 % (0.0-1.8) 03/29/20 14:19 Metamyelocytes % 0 % 03/29/20 14:19 Myelocytes % 0 % 03/29/20 14:19 Promyelocytes % 0 % 03/29/20 14:19 Blast Cells % 0 % 03/29/20 14:19 Nucleated RBC % 3.0 % (0.0-0.9) H 03/29/20 14:19 Seg Neutrophils # 13.3 K/mm3 (1.8-7.7) H 03/31/20 04:27 Seg Neutrophils # Man 18.3 K/mm3 (1.8-7.7) H 03/29/20 14:19 Band Neutrophils # 0.0 K/mm3 03/29/20 14:19 Lymphocytes # (Manual) 2.4 K/mm3 (1.2-5.4) 03/29/20 14:19 Abs React Lymphs (Man) 0.0 K/mm3 03/29/20 14:19 Monocytes # (Manual) 0.2 K/mm3 (0.0-0.8) 03/29/20 14:19 Eosinophils # (Manual) 0.6 K/mm3 (0.0-0.4) H 03/29/20 14:19 Basophils # (Manual) 0.0 K/mm3 (0.0-0.1) 03/29/20 14:19 Metamyelocytes # 0.0 K/mm3 03/29/20 14:19 Myelocytes # 0.0 K/mm3 03/29/20 14:19 Promyelocytes # 0.0 K/mm3 03/29/20 14:19 Blast Cells # 0.0 K/mm3 03/29/20 14:19 WBC Morphology Not Reportable 03/29/20 14:19 Hypersegmented Neuts Not Reportable 03/29/20 14:19 Hyposegmented Neuts Not Reportable 03/29/20 14:19 Hypogranular Neuts Not Reportable 03/29/20 14:19 Smudge Cells Not Reportable 03/29/20 14:19 Toxic Granulation Not Reportable 03/29/20 14:19 Toxic Vacuolation Not Reportable 03/29/20 14:19 Dohle Bodies Not Reportable 03/29/20 14:19 Pelger-Huet Anomaly Not Reportable 03/29/20 14:19 Ananya Rods Not Reportable 03/29/20 14:19 Platelet Estimate Consistent w auto 03/29/20 14:19 Clumped Platelets Not Reportable 03/29/20 14:19 Plt Clumps, EDTA Not Reportable 03/29/20 14:19 Large Platelets Not Reportable 03/29/20 14:19 Giant Platelets Not Reportable 03/29/20 14:19 Platelet Satelliting Not Reportable 03/29/20 14:19 Plt Morphology Comment Not Reportable 03/29/20 14:19 RBC Morphology Not Reportable 03/29/20 14:19 Dimorphic RBCs Not Reportable 03/29/20 14:19 Polychromasia Not Reportable 03/29/20 14:19 Hypochromasia Not Reportable 03/29/20 14:19 Poikilocytosis Not Reportable 03/29/20 14:19 Anisocytosis 1+ 03/29/20 14:19 Microcytosis Not Reportable 03/29/20 14:19 Macrocytosis Not Reportable 03/29/20 14:19 Spherocytes Not Reportable 03/29/20 14:19 Pappenheimer Bodies Not Reportable 03/29/20 14:19 Sickle Cells Not Reportable 03/29/20 14:19 Target Cells Not Reportable 03/29/20 14:19 Tear Drop Cells Not Reportable 03/29/20 14:19 Ovalocytes Not Reportable 03/29/20 14:19 Helmet Cells Not Reportable 03/29/20 14:19 Light-Curlew Bodies Not Reportable 03/29/20 14:19 [place] Rings Not Reportable 03/29/20 14:19 [place] Cells Not Reportable 03/29/20 14:19 Bite Cells Not Reportable 03/29/20 14:19 Crenated Cell Not Reportable 03/29/20 14:19 Elliptocytes Not Reportable 03/29/20 14:19 Acanthocytes (Spur) Not Reportable 03/29/20 14:19 Rouleaux Not Reportable 03/29/20 14:19 Hemoglobin C Crystals Not Reportable 03/29/20 14:19 Schistocytes Not Reportable 03/29/20 14:19 Malaria parasites Not Reportable 03/29/20 14:19 Steven Bodies Not Reportable 03/29/20 14:19 Hem Pathologist Commnt No 03/29/20 14:19 PT 12.7 Sec. (12.2-14.9) 03/19/20 08:08 INR 0.94 (0.87-1.13) 03/19/20 08:08 APTT 27.7 Sec. (24.2-36.6) 03/18/20 18:28 Heparin Anti-Xa Level 0.10 U.I./ml (0.3-0.7) L 03/25/20 04:06 ABG pH 7.405 pH Units (7.350-7.450) 03/20/20 04:35 ABG pCO2 40.3 mm Hg 03/20/20 04:35 ABG pO2 68.3 mm Hg (80.0-90.0) L 03/20/20 04:35 ABG HCO3 24.6 mmol/L (20.0-26.0) 03/20/20 04:35 ABG O2 Saturation 94.3 % (95.0-99.0) L 03/20/20 04:35 ABG O2 Content 9.3 (0.0-44) 03/20/20 04:35 ABG Base Excess -0.1 mmol/L (-2.0-3.0) 03/20/20 04:35 ABG Hemoglobin 7.1 gm/dl (14.0-18.0) L 03/20/20 04:35 ABG Carboxyhemoglobin 1.8 % (0.0-5.0) 03/20/20 04:35 ABG Methemoglobin 0.4 % (0.0-1.5) 03/20/20 04:35 Oxyhemoglobin 92.3 % (95.0-99.0) L 03/20/20 04:35 FiO2 35 % 03/20/20 04:35 Sodium 133 mmol/L (137-145) L 03/31/20 04:27 Potassium 5.0 mmol/L (3.6-5.0) 03/31/20 04:27 Chloride 96.6 mmol/L (98-107) L 03/31/20 04:27 Carbon Dioxide 18 mmol/L (22-30) L 03/31/20 04:27 Anion Gap 23 mmol/L 03/31/20 04:27 BUN 75 mg/dL (9-20) H 03/31/20 04:27 Creatinine 2.5 mg/dL (0.8-1.3) H D 03/31/20 04:27 Estimated GFR 27 ml/min 03/31/20 04:27 BUN/Creatinine Ratio 30 % 03/31/20 04:27 Glucose 129 mg/dL (75-100) H 03/31/20 04:27 POC Glucose 88 (70-105) 03/31/20 15:54 Hemoglobin A1c 11.0 % (4-6) H 03/18/20 22:21 Calcium 8.0 mg/dL (8.4-10.2) L 03/31/20 04:27 Magnesium 2.20 mg/dL (1.7-2.3) 03/28/20 07:39 Total Creatine Kinase 7255 units/L (55-170) H 03/19/20 08:08 CK-MB (CK-2) 79.3 ng/mL (0.0-4.0) H 03/19/20 08:08 CK-MB (CK-2) Rel Index 1.0 (0-4) 03/19/20 08:08 Troponin T 3.200 ng/mL (0.00-0.029) H* D 03/20/20 05:12 Triglycerides 188 mg/dL (2-149) H 03/18/20 18:28 Cholesterol 199 mg/dL (50-199) 03/18/20 18:28 LDL Cholesterol Direct 141 mg/dL (50-130) H 03/18/20 18:28 HDL Cholesterol 47 mg/dL (40-59) 03/18/20 18:28 Cholesterol/HDL Ratio 4.23 % 03/18/20 18:28 Blood Type B POSITIVE 03/25/20 11:42 Antibody Screen Negative 03/25/20 11:42 Microbiology: Microbiology 03/28/20 15:12 Sputum - Expectorated Sputum Sputum Culture - Final - Diagnostic Impressions Diagnostic Impressions: Echocardiogram 03/19/20 12:49 Transthoracic Echocardiogram Indication: CAD and Abnormal EKG HR: 110 Conclusions *The study is technically limited due to patient body habitus. *The left ventricular chamber size is mildly dilated. *Global left ventricular systolic function is moderate to severely decreased. *The estimated ejection fraction is 30-35%. *The basal inferolateral, and basal inferior wall segments are normal. *The mid inferolateral, mid inferior, apical lateral, and apical inferior wall segments are akinetic. *The left atrial chamber size is normal. Findings Procedure Info: The study is technically limited due to patient body habitus. The study was technically limited due to the patient's inability to lay in the left lateral decubitus position. Left Ventricle: The left ventricular chamber size is mildly dilated. Global left ventricular systolic function is moderate to severely decreased. The estimated ejection fraction is 30-35%. The basal inferolateral, and basal inferior wall segments are normal. The mid inferolateral, mid inferior, apical lateral, and apical inferior wall segments are akinetic. Left Atrium: The left atrial chamber size is normal. Right Ventricle: The right ventricle is not well visualized. Right Atrium: The right atrium is not well visualized. The right atrial cavity size is normal. Aortic Valve: The aortic valve is trileaflet. Mitral Valve: The mitral valve leaflets are moderately thickened. There is mild mitral regurgitation. Tricuspid Valve: The tricuspid valve is not well visualized. There is trace tricuspid regurgitation. Pulmonic Valve: The pulmonic valve is not well visualized. Pericardium: There is no pericardial effusion. Aorta: The aorta appears normal. Venous: The venous system is not well visualized. Contrast: Definity was used to optimize study. Measurements Chambers 2D Name Value Normal Range IVSd (2D) 0.94 cm (0.6 - 1.1) LVPWd (2D) 0.94 cm (0.6 - 1.1) LVIDd (2D) 6.15 cm (3.7 - 5.6) LVIDs (2D) 5.2 cm (2 - 3.8) LV FS (2D) 15.5 % - EF Teichholz (2D) 32.08 % - Ao root diameter (2D) 2.77 cm (2 - 3.7) Volumes/Mass Name Value Normal Range LA ESV SP 4CH (A/L) 73.77 ml - LA ESV SP 2CH (A/L) 66.45 ml - LA ESV BP (A/L) 71.61 ml - LA ESV BP (A/L) index 30.6 ml/m2 - LA ESV SP 4CH (MOD) 72.55 ml - LA ESV SP 2CH (MOD) 65.34 ml - LA ESV BP (MOD) 70.27 ml - LA ESV BP (MOD) index 30.03 ml/m2 - Diastolic/Systolic Function Name Value Normal Range MV E-wave Vmax 0.85 m/sec - MV deceleration time 69.14 msec - MV A-wave Vmax 0.89 m/sec - MV E:A ratio 0.95 ratio - Aortic Valve Name Value Normal Range AV Vmax 0.96 m/sec - AV VTI 11.83 cm - AV peak gradient 3.68 mmHg - AV mean gradient 1.6 mmHg - LVOT diameter 2.19 cm - LVOT Vmax 0.86 m/sec - LVOT VTI 13.33 cm - LVOT peak gradient 2.96 mmHg - LVOT mean gradient 1.48 mmHg - SV LVOT 50.08 ml - DEYA (continuity Vmax) 3.37 cm2 - DEYA (continuity VTI) 4.23 cm2 - Ascending Ao 2.92 cm - Pulmonic Valve/Qp:Qs Name Value Normal Range PV Vmax 1.08 m/sec - PV VTI 15.88 cm - PV peak gradient 4.7 mmHg - PV mean gradient 2.18 mmHg - RVOT Vmax 0.82 m/sec - RVOT VTI 11.48 cm - RVOT peak gradient 2.67 mmHg - Wallmotion BAS Not Seen BA Not Seen BAL Not Seen BAY Normal BI Normal BIS Not Seen MAS Not Seen MA Not Seen MAL Not Seen MIL Akinetic OR Akinetic MIS Not Seen Not Seen AA Not Seen AL Akinetic AI Akinetic APEX Not Seen Tyson/IV: Voiding Method Urinal IV Catheter Type [Right Peripheral IV Forearm] IV Catheter Type [Right INT / Saline Lock Antecubital] IV Catheter Type [Left Forearm INT / Saline Lock ] IV Catheter Type [Left Upper Peripheral IV arm] IV Catheter Type [Left Peripheral IV Antecubital] Active Medications - Current Medications Current Medications: Generic Name Dose Route Start Last Admin Trade Name Freq PRN Reason Stop Dose Admin Acetaminophen/Hydrocodone Bitart 2 each 03/22/20 17:18 03/31/20 17:12 Dawson 5/325 PO 2 each Q4H PRN Administration Pain, Moderate (4-6) Apixaban 5 mg 03/26/20 22:00 03/31/20 09:46 Eliquis PO 5 mg Q12HR LOI Administration Protocol Arformoterol Tartrate 15 mcg 03/19/20 20:00 03/31/20 09:10 [place] Nebu IH 15 mcg Q12HRT LOI Administration Atorvastatin Calcium 40 mg 03/19/20 22:00 03/30/20 22:45 Lipitor PO 40 mg QHS LOI Administration Budesonide 0.5 mg 03/19/20 20:00 03/31/20 09:10 Pulmicort IH 0.5 mg Q12HRT LOI Administration Clopidogrel Bisulfate 75 mg 03/19/20 10:00 03/31/20 09:45 Plavix PO 75 mg QDAY LOI Administration Dextrose 50 ml 03/18/20 22:21 D50w (25gm) Syringe IV Q30MIN PRN Hypoglycemia Protocol Diphenhydramine HCl 25 mg 03/19/20 12:44 Benadryl IV Q4H PRN Itching Hydromorphone HCl 1 mg 03/31/20 08:19 03/31/20 13:27 Dilaudid IV 03/31/20 23:59 1 mg Q4H PRN Administration Pain , Severe (7-10) Hydromorphone/Sodium Chloride 0 mg 03/19/20 13:00 03/30/20 02:09 Dilaudid Bat Carrier 6mg/30ml IV 1 cart DIRECT LOI Administration Protocol Piperacillin Sod/Tazobactam Sod 4.5 gm in 100 mls @ 200 mls/hr 03/28/20 14:00 03/31/20 13:27 Zosyn/Ns 4.5gm/100ml IV 100 mls/hr Q8HR LOI Administration Sodium Chloride 500 mls @ 2 mls/hr 03/28/20 22:00 03/30/20 22:45 Nacl 0.9% 500 Ml IV 2 mls/hr DIRECT LOI Administration Insulin Glargine 25 units 03/22/20 22:00 03/30/20 22:45 Lantus SUB-Q 25 units QHS LOI Administration Insulin Human Lispro 0 unit 03/20/20 16:30 03/31/20 15:54 Humalog SUB-Q Not Given ACHS [facility] Protocol Insulin Human Lispro 8 unit 03/28/20 11:30 03/31/20 15:55 Humalog SUB-Q Not Given AC [facility] Magnesium Hydroxide 30 ml 03/18/20 22:21 Milk Of Magnesia PO Q4H PRN Constipation Metoprolol Tartrate 50 mg 03/19/20 22:00 03/31/20 09:46 Metoprolol PO 50 mg BID LOI Administration Naloxone HCl 0.1 mg 03/19/20 12:44 Naloxone IV Q2MIN PRN Res Rate </= 8 or 02 SAT < 92% Ondansetron HCl 4 mg 03/18/20 22:21 Zofran IV Q8H PRN Nausea And Vomiting Pantoprazole Sodium 40 mg 03/20/20 10:00 03/31/20 09:45 Protonix PO 40 mg BID LOI Administration Pregabalin 150 mg 03/22/20 22:00 03/31/20 09:45 Pregabalin PO 150 mg BID LOI Administration Sodium Chloride 10 ml 03/19/20 10:00 03/31/20 11:11 Sodium Chloride Flush Syringe 10 Ml IV 10 ml BID LOI Administration Sodium Chloride 10 ml 03/18/20 22:21 03/22/20 19:52 Sodium Chloride Flush Syringe 10 Ml IV 10 ml PRN PRN Administration LINE FLUSH Nutrition/Malnutrition Assess - Dietary Evaluation Nutrition/Malnutrition Findings: Nutrition Notes Start: 03/19/20 11:59 Freq: Status: Active Protocol: Document 03/28/20 13:11 DAYO (Rec: 03/28/20 13:21 DAYO [id number] [email or web address]) Nutrition Notes Initial or Follow up Assessment Current Diagnosis COPD,Diabetes Other Pertinent Diagnosis (L) LE ischemia s/p (L) BKA, STARR, NSTEMI Current Diet Cardiac/Consistent CHO Labs/Tests Na 134 (likely 136-137) BG 240 BUN 47 Pertinent Medications Dilaudid EXERCISE SCIENTIST, Lantus Height 6 ft Weight 123.2 kg [place] Body Weight (kg) 80.90 BMI 36.8 Weight change and time frame AdjBW for amputation: 130.9kg Adj BMI: 39 Weight Status Obese Subjective/Other Information Spoke with pt via phone at 12: 36. He says his appetite is " not the best", but he eats. PO intakes vary from 25-100%; he denies need for ONS at this time. He verbalizes a few food preferences. Burn Absent Trauma Absent Current % PO Fair (50-74%) Minimum of two criteria No #1 Nutrition Diagnosis Increased nutrient needs ( specify in comment below) Etiology increased demands of healing As Evidenced by Signs and Symptoms s/p recent BKA Is patient on ventilator? No Is Patient Ambulatory and/or Out of Bed No REE-([facility]-confined to bed) 2529.804 Kcal/Kg value to use for calculation 17 Approximate Energy Requirements Using 2094 kcal/Kg Calculation Used for Recommendations Kcal/kg Additional Notes Pro needs 1-1.2g/kg adjBW (not for amputation): 102-122g/day Fluid needs 1ml/kcal Nutrition Intervention Change Diet Order: Continue current diet order; honor food preferences Goal #1 PO intakes to meet at least 75 % energy and pro needs Goal #2 Healing of surgical site Anticipated Discharge Needs: Heart-healthy/CHO-controlled diet Follow-Up By: 04/02/20 Additional Comments F/U: intakes
[2020-03-31] MEDS: INSULIN GLARGINE 100 UNITS/ML SUB-Q SCH (22:00)
--- NOTE | 2020-03-31 22:10 | Progress Note ---
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 Patient Obese. Complaining pain in left leg. Patient presently on room air and O2 saturation running 98%. Complaining some shortness of breath and complaining non productive cough Chest xray 03/26/20 reported Stable cardiomegaly. New right lower lobe infiltrate or congestive changes. ABG FIO2 35%. ABG pH 7.405 pH Units (7.350-7.450) 03/20/20 04:35 ABG pCO2 40.3 mm Hg 03/20/20 04:35 ABG pO2 68.3 mm Hg (80.0-90.0) L 03/20/20 04:35 ABG O2 Saturation 94.3 % (95.0-99.0) L 03/20/20 04:35 Patient afebrile and has leukocytosis Patient is on I/V Zosyn. Patient is on Apixaban. Patient is on Protonix for GI prophylaxis. Recommend incentive spirometry. Patient blood pressure running slightly low. Recommend I/V fluid NSS bolus. Patient is on Brovanna/Budesonide aerosol treatments. In addition recommend albuterol/atrovent aerosol treatments q 6 hours PRN for shortness of breath. Robitussin DM for cough. 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 (2) Cardiomyopathy Current Visit: Yes Status: Acute Plan to address problem: Management as per primary care and cardiology. (3) Elevated troponin Current Visit: Yes Status: Acute Plan to address problem: Management as per primary care and cardiology. (4) Hx of two vessel coronary artery bypass graft Current Visit: Yes Status: Acute Plan to address problem: Management as per cardiology. (5) NSTEMI (non-ST elevated myocardial infarction) Current Visit: Yes Status: Acute Plan to address problem: Management as per cardiology. (6) HTN (hypertension) Current Visit: Yes Status: Chronic Plan to address problem: Management as per primary care. (7) History of CVA (cerebrovascular accident) Current Visit: Yes Status: Chronic Plan to address problem: management as per primary care. (8) Smoker Current Visit: Yes Status: Chronic Plan to address problem: Counseled to stop smoking. 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 Patient Obese. Complaining pain in left leg. Patient presently on room air and O2 saturation running 98%. Complaining some shortness of breath and complaining non productive cough Chest xray 03/26/20 reported Stable cardiomegaly. New right lower lobe infiltrate or congestive changes. ABG FIO2 35%. ABG pH 7.405 pH Units (7.350-7.450) 03/20/20 04:35 ABG pCO2 40.3 mm Hg 03/20/20 04:35 ABG pO2 68.3 mm Hg (80.0-90.0) L 03/20/20 04:35 ABG O2 Saturation 94.3 % (95.0-99.0) L 03/20/20 04:35 Patient afebrile and has leukocytosis Patient is on I/V Zosyn. Patient is on Apixaban. Patient is on Protonix for GI prophylaxis. Recommend incentive spirometry. Patient blood pressure running slightly low. Recommend I/V fluid NSS bolus. Patient is on Brovanna/Budesonide aerosol treatments. In addition recommend albuterol/atrovent aerosol treatments q 6 hours PRN for shortness of breath. Robitussin DM for cough. Objective Vital Signs - 12hr 03/31/20 03/31/20 15:40 19:12 Temperature 98.0 F Pulse Rate 78 Pulse Rate [ 79 Anterior Bilateral Throughout] Respiratory 18 Rate Respiratory 21 Rate [Anterior Bilateral Throughout] Blood Pressure 97/66 O2 Sat by Pulse 97 97 Oximetry Constitutional: no acute distress, alert, other (middle aged obese male with mildly increased respiratory effort at rest) Eyes: non-icteric ENT: oropharynx moist Neck: supple, no lymphadenopathy, no JVD Effort: mildly labored Ascultation: Bilateral: diminished breath sounds Percussion: Bilateral: not dull Cardiovascular: regular rate and rhythm Gastrointestinal: normoactive bowel sounds, soft, non-tender, non-distended (protuberant) Integumentary: rash Extremities: cool, edema, other (left BKA with clean dressing) Neurologic: normal mental status, non-focal exam, pupils equal and round, motor strength normal and Psychiatric: mood appropriate, affect normal CBC and BMP: 08/16/20 04:27 03/31/20 04:27 ABG, PT/INR, D-dimer: ABG ABG pH 7.405 pH Units (7.350-7.450) 03/20/20 04:35 ABG pCO2 40.3 mm Hg 03/20/20 04:35 ABG pO2 68.3 mm Hg (80.0-90.0) L 03/20/20 04:35 ABG O2 Saturation 94.3 % (95.0-99.0) L 03/20/20 04:35 PT/INR, D-dimer PT 12.7 Sec. (12.2-14.9) 03/19/20 08:08 INR 0.94 (0.87-1.13) 03/19/20 08:08 Abnormal lab findings: Abnormal Labs 03/18/20 03/18/20 03/18/20 18:28 18:28 20:56 WBC 12.3 H RBC Hgb Hct Lymph % (Auto) 11.0 L [place] % (Auto) 9.8 H [place] # 1.2 H Seg Neutrophils % 78.4 H Seg Neuts % (Manual) Lymphocytes % (Manual) Nucleated RBC % Seg Neutrophils # 9.6 H Seg Neutrophils # Man Lymphocytes # (Manual) Monocytes # (Manual) Eosinophils # (Manual) Heparin Anti-Xa Level ABG pO2 ABG HCO3 ABG O2 Saturation ABG Base Excess ABG Hemoglobin Oxyhemoglobin Sodium 132 L Potassium Chloride 91.9 L Carbon Dioxide 20 L BUN Creatinine 1.4 H Glucose 406 H POC Glucose Hemoglobin A1c Calcium Total Creatine Kinase 2727 H 2492 H CK-MB (CK-2) 135.9 H 107.2 H CK-MB (CK-2) Rel Index 4.3 H Troponin T 5.110 H* 3.960 H* D Triglycerides 188 H LDL Cholesterol Direct 141 H 03/18/20 03/19/20 03/19/20 22:21 01:57 08:08 WBC RBC Hgb Hct Lymph % (Auto) [place] % (Auto) [place] # Seg Neutrophils % Seg Neuts % (Manual) Lymphocytes % (Manual) Nucleated RBC % Seg Neutrophils # Seg Neutrophils # Man Lymphocytes # (Manual) Monocytes # (Manual) Eosinophils # (Manual) Heparin Anti-Xa Level ABG pO2 ABG HCO3 ABG O2 Saturation ABG Base Excess ABG Hemoglobin Oxyhemoglobin Sodium Potassium Chloride Carbon Dioxide BUN Creatinine Glucose POC Glucose 317 H Hemoglobin A1c 11.0 H Calcium Total Creatine Kinase 7255 H CK-MB (CK-2) 79.3 H CK-MB (CK-2) Rel Index Troponin T 5.540 H* D Triglycerides LDL Cholesterol Direct 03/19/20 03/19/20 03/19/20 08:08 08:08 08:08 WBC 13.3 H RBC Hgb Hct Lymph % (Auto) 10.7 L [place] % (Auto) 8.5 H [place] # 1.1 H Seg Neutrophils % 80.0 H Seg Neuts % (Manual) Lymphocytes % (Manual) Nucleated RBC % Seg Neutrophils # 10.6 H Seg Neutrophils # Man Lymphocytes # (Manual) Monocytes # (Manual) Eosinophils # (Manual) Heparin Anti-Xa Level 0.10 L ABG pO2 ABG HCO3 ABG O2 Saturation ABG Base Excess ABG Hemoglobin Oxyhemoglobin Sodium 133 L Potassium 5.1 H Chloride Carbon Dioxide 17 L BUN 23 H Creatinine Glucose 313 H POC Glucose Hemoglobin A1c Calcium Total Creatine Kinase CK-MB (CK-2) CK-MB (CK-2) Rel Index Troponin T Triglycerides LDL Cholesterol Direct 03/19/20 03/19/20 03/19/20 15:40 18:23 21:32 WBC RBC Hgb Hct Lymph % (Auto) [place] % (Auto) [place] # Seg Neutrophils % Seg Neuts % (Manual) Lymphocytes % (Manual) Nucleated RBC % Seg Neutrophils # Seg Neutrophils # Man Lymphocytes # (Manual) Monocytes # (Manual) Eosinophils # (Manual) Heparin Anti-Xa Level < 0.10 L ABG pO2 ABG HCO3 18.3 L ABG O2 Saturation ABG Base Excess -5.4 L ABG Hemoglobin 12.2 L Oxyhemoglobin 94.6 L Sodium Potassium Chloride Carbon Dioxide BUN Creatinine Glucose POC Glucose 348 H Hemoglobin A1c Calcium Total Creatine Kinase CK-MB (CK-2) CK-MB (CK-2) Rel Index Troponin T Triglycerides LDL Cholesterol Direct 03/20/20 03/20/20 03/20/20 04:35 05:12 05:12 WBC 11.1 H RBC 3.63 L Hgb 11.0 L Hct 32.7 L D Lymph % (Auto) [place] % (Auto) 8.1 H [place] # 0.9 H Seg Neutrophils % 75.8 H Seg Neuts % (Manual) Lymphocytes % (Manual) Nucleated RBC % Seg Neutrophils # 8.4 H Seg Neutrophils # Man Lymphocytes # (Manual) Monocytes # (Manual) Eosinophils # (Manual) Heparin Anti-Xa Level 0.28 L ABG pO2 68.3 L ABG HCO3 ABG O2 Saturation 94.3 L ABG Base Excess ABG Hemoglobin 7.1 L Oxyhemoglobin 92.3 L Sodium Potassium Chloride Carbon Dioxide BUN Creatinine Glucose POC Glucose Hemoglobin A1c Calcium Total Creatine Kinase CK-MB (CK-2) CK-MB (CK-2) Rel Index Troponin T Triglycerides LDL Cholesterol Direct 03/20/20 03/20/20 03/20/20 05:12 07:49 12:15 WBC RBC Hgb Hct Lymph % (Auto) [place] % (Auto) [place] # Seg Neutrophils % Seg Neuts % (Manual) Lymphocytes % (Manual) Nucleated RBC % Seg Neutrophils # Seg Neutrophils # Man Lymphocytes # (Manual) Monocytes # (Manual) Eosinophils # (Manual) Heparin Anti-Xa Level ABG pO2 ABG HCO3 ABG O2 Saturation ABG Base Excess ABG Hemoglobin Oxyhemoglobin Sodium 134 L Potassium Chloride Carbon Dioxide 21 L BUN 23 H Creatinine Glucose 275 H POC Glucose 294 H 357 H Hemoglobin A1c Calcium Total Creatine Kinase CK-MB (CK-2) CK-MB (CK-2) Rel Index Troponin T 3.200 H* D Triglycerides LDL Cholesterol Direct 03/20/20 03/20/20 03/21/20 17:16 22:08 04:44 WBC RBC Hgb Hct Lymph % (Auto) [place] % (Auto) [place] # Seg Neutrophils % Seg Neuts % (Manual) Lymphocytes % (Manual) Nucleated RBC % Seg Neutrophils # Seg Neutrophils # Man Lymphocytes # (Manual) Monocytes # (Manual) Eosinophils # (Manual) Heparin Anti-Xa Level ABG pO2 ABG HCO3 ABG O2 Saturation ABG Base Excess ABG Hemoglobin Oxyhemoglobin Sodium 136 L Potassium Chloride Carbon Dioxide 18 L BUN 26 H Creatinine Glucose 266 H POC Glucose 327 H 292 H Hemoglobin A1c Calcium 8.1 L Total Creatine Kinase CK-MB (CK-2) CK-MB (CK-2) Rel Index Troponin T Triglycerides LDL Cholesterol Direct 03/21/20 03/21/20 03/21/20 07:50 12:25 15:53 WBC RBC Hgb Hct Lymph % (Auto) [place] % (Auto) [place] # Seg Neutrophils % Seg Neuts % (Manual) Lymphocytes % (Manual) Nucleated RBC % Seg Neutrophils # Seg Neutrophils # Man Lymphocytes # (Manual) Monocytes # (Manual) Eosinophils # (Manual) Heparin Anti-Xa Level ABG pO2 ABG HCO3 ABG O2 Saturation ABG Base Excess ABG Hemoglobin Oxyhemoglobin Sodium Potassium Chloride Carbon Dioxide BUN Creatinine Glucose POC Glucose 271 H 314 H 436 H Hemoglobin A1c Calcium Total Creatine Kinase CK-MB (CK-2) CK-MB (CK-2) Rel Index Troponin T Triglycerides LDL Cholesterol Direct 03/21/20 03/21/20 03/22/20 17:44 21:55 04:33 WBC RBC Hgb 10.0 L Hct 29.4 L Lymph % (Auto) [place] % (Auto) [place] # Seg Neutrophils % Seg Neuts % (Manual) Lymphocytes % (Manual) Nucleated RBC % Seg Neutrophils # Seg Neutrophils # Man Lymphocytes # (Manual) Monocytes # (Manual) Eosinophils # (Manual) Heparin Anti-Xa Level ABG pO2 ABG HCO3 ABG O2 Saturation ABG Base Excess ABG Hemoglobin Oxyhemoglobin Sodium Potassium Chloride Carbon Dioxide BUN Creatinine Glucose POC Glucose 362 H 329 H Hemoglobin A1c Calcium Total Creatine Kinase CK-MB (CK-2) CK-MB (CK-2) Rel Index Troponin T Triglycerides LDL Cholesterol Direct 03/22/20 03/22/20 03/22/20 08:57 14:12 19:57 WBC RBC Hgb Hct Lymph % (Auto) [place] % (Auto) [place] # Seg Neutrophils % Seg Neuts % (Manual) Lymphocytes % (Manual) Nucleated RBC % Seg Neutrophils # Seg Neutrophils # Man Lymphocytes # (Manual) Monocytes # (Manual) Eosinophils # (Manual) Heparin Anti-Xa Level ABG pO2 ABG HCO3 ABG O2 Saturation ABG Base Excess ABG Hemoglobin Oxyhemoglobin Sodium Potassium Chloride Carbon Dioxide BUN Creatinine Glucose POC Glucose 284 H 319 H 356 H Hemoglobin A1c Calcium Total Creatine Kinase CK-MB (CK-2) CK-MB (CK-2) Rel Index Troponin T Triglycerides LDL Cholesterol Direct 03/22/20 03/23/20 03/23/20 21:44 08:18 12:46 WBC RBC Hgb Hct Lymph % (Auto) [place] % (Auto) [place] # Seg Neutrophils % Seg Neuts % (Manual) Lymphocytes % (Manual) Nucleated RBC % Seg Neutrophils # Seg Neutrophils # Man Lymphocytes # (Manual) Monocytes # (Manual) Eosinophils # (Manual) Heparin Anti-Xa Level ABG pO2 ABG HCO3 ABG O2 Saturation ABG Base Excess ABG Hemoglobin Oxyhemoglobin Sodium Potassium Chloride Carbon Dioxide BUN Creatinine Glucose POC Glucose 336 H 215 H 262 H Hemoglobin A1c Calcium Total Creatine Kinase CK-MB (CK-2) CK-MB (CK-2) Rel Index Troponin T Triglycerides LDL Cholesterol Direct 03/23/20 03/23/20 03/24/20 15:56 22:05 02:35 WBC RBC Hgb 9.0 L Hct 25.8 L Lymph % (Auto) [place] % (Auto) [place] # Seg Neutrophils % Seg Neuts % (Manual) Lymphocytes % (Manual) Nucleated RBC % Seg Neutrophils # Seg Neutrophils # Man Lymphocytes # (Manual) Monocytes # (Manual) Eosinophils # (Manual) Heparin Anti-Xa Level ABG pO2 ABG HCO3 ABG O2 Saturation ABG Base Excess ABG Hemoglobin Oxyhemoglobin Sodium Potassium Chloride Carbon Dioxide BUN Creatinine Glucose POC Glucose 246 H 322 H Hemoglobin A1c Calcium Total Creatine Kinase CK-MB (CK-2) CK-MB (CK-2) Rel Index Troponin T Triglycerides LDL Cholesterol Direct 03/24/20 03/24/20 03/24/20 07:38 11:45 16:02 WBC RBC Hgb Hct Lymph % (Auto) [place] % (Auto) [place] # Seg Neutrophils % Seg Neuts % (Manual) Lymphocytes % (Manual) Nucleated RBC % Seg Neutrophils # Seg Neutrophils # Man Lymphocytes # (Manual) Monocytes # (Manual) Eosinophils # (Manual) Heparin Anti-Xa Level ABG pO2 ABG HCO3 ABG O2 Saturation ABG Base Excess ABG Hemoglobin Oxyhemoglobin Sodium Potassium Chloride Carbon Dioxide BUN Creatinine Glucose POC Glucose 289 H 257 H 150 H Hemoglobin A1c Calcium Total Creatine Kinase CK-MB (CK-2) CK-MB (CK-2) Rel Index Troponin T Triglycerides LDL Cholesterol Direct 03/24/20 03/25/20 03/25/20 21:24 04:06 07:39 WBC RBC Hgb Hct Lymph % (Auto) [place] % (Auto) [place] # Seg Neutrophils % Seg Neuts % (Manual) Lymphocytes % (Manual) Nucleated RBC % Seg Neutrophils # Seg Neutrophils # Man Lymphocytes # (Manual) Monocytes # (Manual) Eosinophils # (Manual) Heparin Anti-Xa Level 0.10 L ABG pO2 ABG HCO3 ABG O2 Saturation ABG Base Excess ABG Hemoglobin Oxyhemoglobin Sodium Potassium Chloride Carbon Dioxide BUN Creatinine Glucose POC Glucose 228 H 332 H Hemoglobin A1c Calcium Total Creatine Kinase CK-MB (CK-2) CK-MB (CK-2) Rel Index Troponin T Triglycerides LDL Cholesterol Direct 03/25/20 03/25/20 03/25/20 08:13 09:30 11:59 WBC 13.1 H RBC 2.82 L Hgb 8.5 L Hct 26.1 L Lymph % (Auto) [place] % (Auto) [place] # Seg Neutrophils % Seg Neuts % (Manual) Lymphocytes % (Manual) Nucleated RBC % Seg Neutrophils # Seg Neutrophils # Man Lymphocytes # (Manual) Monocytes # (Manual) Eosinophils # (Manual) Heparin Anti-Xa Level ABG pO2 ABG HCO3 ABG O2 Saturation ABG Base Excess ABG Hemoglobin Oxyhemoglobin Sodium 131 L Potassium 5.3 H Chloride Carbon Dioxide 20 L BUN 39 H Creatinine 1.4 H Glucose 313 H POC Glucose 273 H Hemoglobin A1c Calcium 8.1 L Total Creatine Kinase CK-MB (CK-2) CK-MB (CK-2) Rel Index Troponin T Triglycerides LDL Cholesterol Direct 03/25/20 03/25/20 03/25/20 13:54 15:58 18:21 WBC RBC Hgb Hct Lymph % (Auto) [place] % (Auto) [place] # Seg Neutrophils % Seg Neuts % (Manual) Lymphocytes % (Manual) Nucleated RBC % Seg Neutrophils # Seg Neutrophils # Man Lymphocytes # (Manual) Monocytes # (Manual) Eosinophils # (Manual) Heparin Anti-Xa Level ABG pO2 ABG HCO3 ABG O2 Saturation ABG Base Excess ABG Hemoglobin Oxyhemoglobin Sodium Potassium Chloride Carbon Dioxide BUN Creatinine Glucose POC Glucose 246 H 235 H 185 H Hemoglobin A1c Calcium Total Creatine Kinase CK-MB (CK-2) CK-MB (CK-2) Rel Index Troponin T Triglycerides LDL Cholesterol Direct 03/25/20 03/26/20 03/26/20 20:45 05:15 06:59 WBC 17.4 H 15.6 H RBC 3.05 L 3.05 L Hgb 9.1 L 9.2 L Hct 28.2 L 27.9 L Lymph % (Auto) 8.9 L 8.9 L [place] % (Auto) [place] # 1.0 H Seg Neutrophils % 84.4 H 84.8 H Seg Neuts % (Manual) Lymphocytes % (Manual) Nucleated RBC % Seg Neutrophils # 14.7 H 13.2 H Seg Neutrophils # Man Lymphocytes # (Manual) Monocytes # (Manual) Eosinophils # (Manual) Heparin Anti-Xa Level ABG pO2 ABG HCO3 ABG O2 Saturation ABG Base Excess ABG Hemoglobin Oxyhemoglobin Sodium Potassium Chloride Carbon Dioxide BUN Creatinine Glucose POC Glucose 178 H Hemoglobin A1c Calcium Total Creatine Kinase CK-MB (CK-2) CK-MB (CK-2) Rel Index Troponin T Triglycerides LDL Cholesterol Direct 03/26/20 03/26/20 03/26/20 06:59 07:43 11:56 WBC RBC Hgb Hct Lymph % (Auto) [place] % (Auto) [place] # Seg Neutrophils % Seg Neuts % (Manual) Lymphocytes % (Manual) Nucleated RBC % Seg Neutrophils # Seg Neutrophils # Man Lymphocytes # (Manual) Monocytes # (Manual) Eosinophils # (Manual) Heparin Anti-Xa Level ABG pO2 ABG HCO3 ABG O2 Saturation ABG Base Excess ABG Hemoglobin Oxyhemoglobin Sodium 131 L Potassium 5.8 H Chloride Carbon Dioxide 16 L BUN 42 H Creatinine 1.4 H Glucose 163 H POC Glucose 170 H 198 H Hemoglobin A1c Calcium 8.0 L Total Creatine Kinase CK-MB (CK-2) CK-MB (CK-2) Rel Index Troponin T Triglycerides LDL Cholesterol Direct 03/26/20 03/26/20 03/26/20 13:58 16:16 21:00 WBC RBC Hgb Hct Lymph % (Auto) [place] % (Auto) [place] # Seg Neutrophils % Seg Neuts % (Manual) Lymphocytes % (Manual) Nucleated RBC % Seg Neutrophils # Seg Neutrophils # Man Lymphocytes # (Manual) Monocytes # (Manual) Eosinophils # (Manual) Heparin Anti-Xa Level ABG pO2 ABG HCO3 ABG O2 Saturation ABG Base Excess ABG Hemoglobin Oxyhemoglobin Sodium 128 L Potassium 6.0 H Chloride Carbon Dioxide 15 L BUN 45 H Creatinine 1.4 H Glucose 190 H POC Glucose 184 H 192 H Hemoglobin A1c Calcium 8.2 L Total Creatine Kinase CK-MB (CK-2) CK-MB (CK-2) Rel Index Troponin T Triglycerides LDL Cholesterol Direct 03/27/20 03/27/20 03/27/20 08:32 11:51 14:39 WBC 22.9 H RBC 2.68 L Hgb 7.9 L Hct 24.7 L Lymph % (Auto) [place] % (Auto) [place] # Seg Neutrophils % Seg Neuts % (Manual) Lymphocytes % (Manual) Nucleated RBC % Seg Neutrophils # Seg Neutrophils # Man Lymphocytes # (Manual) Monocytes # (Manual) Eosinophils # (Manual) Heparin Anti-Xa Level ABG pO2 ABG HCO3 ABG O2 Saturation ABG Base Excess ABG Hemoglobin Oxyhemoglobin Sodium Potassium Chloride Carbon Dioxide BUN Creatinine Glucose POC Glucose 233 H 252 H Hemoglobin A1c Calcium Total Creatine Kinase CK-MB (CK-2) CK-MB (CK-2) Rel Index Troponin T Triglycerides LDL Cholesterol Direct 03/27/20 03/27/20 03/27/20 14:39 15:19 21:35 WBC RBC Hgb Hct Lymph % (Auto) [place] % (Auto) [place] # Seg Neutrophils % Seg Neuts % (Manual) Lymphocytes % (Manual) Nucleated RBC % Seg Neutrophils # Seg Neutrophils # Man Lymphocytes # (Manual) Monocytes # (Manual) Eosinophils # (Manual) Heparin Anti-Xa Level ABG pO2 ABG HCO3 ABG O2 Saturation ABG Base Excess ABG Hemoglobin Oxyhemoglobin Sodium 133 L Potassium 5.5 H Chloride Carbon Dioxide 16 L BUN 46 H Creatinine 1.4 H Glucose 225 H POC Glucose 239 H 202 H Hemoglobin A1c Calcium 8.2 L Total Creatine Kinase CK-MB (CK-2) CK-MB (CK-2) Rel Index Troponin T Triglycerides LDL Cholesterol Direct 03/28/20 03/28/20 03/28/20 07:39 07:39 08:36 WBC 22.4 H RBC 2.71 L Hgb 7.9 L Hct 24.5 L Lymph % (Auto) [place] % (Auto) [place] # Seg Neutrophils % Seg Neuts % (Manual) 88.0 H Lymphocytes % (Manual) 5.0 L Nucleated RBC % Seg Neutrophils # Seg Neutrophils # Man 19.7 H Lymphocytes # (Manual) 1.1 L Monocytes # (Manual) 1.6 H Eosinophils # (Manual) Heparin Anti-Xa Level ABG pO2 ABG HCO3 ABG O2 Saturation ABG Base Excess ABG Hemoglobin Oxyhemoglobin Sodium 134 L Potassium Chloride Carbon Dioxide 19 L BUN 47 H Creatinine Glucose 240 H POC Glucose 253 H Hemoglobin A1c Calcium 7.8 L Total Creatine Kinase CK-MB (CK-2) CK-MB (CK-2) Rel Index Troponin T Triglycerides LDL Cholesterol Direct 03/28/20 03/28/20 03/28/20 11:54 17:08 21:17 WBC RBC Hgb Hct Lymph % (Auto) [place] % (Auto) [place] # Seg Neutrophils % Seg Neuts % (Manual) Lymphocytes % (Manual) Nucleated RBC % Seg Neutrophils # Seg Neutrophils # Man Lymphocytes # (Manual) Monocytes # (Manual) Eosinophils # (Manual) Heparin Anti-Xa Level ABG pO2 ABG HCO3 ABG O2 Saturation ABG Base Excess ABG Hemoglobin Oxyhemoglobin Sodium Potassium Chloride Carbon Dioxide BUN Creatinine Glucose POC Glucose 306 H 178 H 186 H Hemoglobin A1c Calcium Total Creatine Kinase CK-MB (CK-2) CK-MB (CK-2) Rel Index Troponin T Triglycerides LDL Cholesterol Direct 03/29/20 03/29/20 03/29/20 08:32 12:04 14:19 WBC 21.5 H RBC 2.82 L Hgb 8.4 L Hct 26.1 L Lymph % (Auto) [place] % (Auto) [place] # Seg Neutrophils % Seg Neuts % (Manual) 85.0 H Lymphocytes % (Manual) 11.0 L Nucleated RBC % 3.0 H Seg Neutrophils # Seg Neutrophils # Man 18.3 H Lymphocytes # (Manual) Monocytes # (Manual) Eosinophils # (Manual) 0.6 H Heparin Anti-Xa Level ABG pO2 ABG HCO3 ABG O2 Saturation ABG Base Excess ABG Hemoglobin Oxyhemoglobin Sodium Potassium Chloride Carbon Dioxide BUN Creatinine Glucose POC Glucose 110 H 263 H Hemoglobin A1c Calcium Total Creatine Kinase CK-MB (CK-2) CK-MB (CK-2) Rel Index Troponin T Triglycerides LDL Cholesterol Direct 03/29/20 03/29/20 03/30/20 16:17 22:57 11:00 WBC RBC Hgb Hct Lymph % (Auto) [place] % (Auto) [place] # Seg Neutrophils % Seg Neuts % (Manual) Lymphocytes % (Manual) Nucleated RBC % Seg Neutrophils # Seg Neutrophils # Man Lymphocytes # (Manual) Monocytes # (Manual) Eosinophils # (Manual) Heparin Anti-Xa Level ABG pO2 ABG HCO3 ABG O2 Saturation ABG Base Excess ABG Hemoglobin Oxyhemoglobin Sodium Potassium Chloride Carbon Dioxide BUN Creatinine Glucose POC Glucose 109 H 194 H 129 H Hemoglobin A1c Calcium Total Creatine Kinase CK-MB (CK-2) CK-MB (CK-2) Rel Index Troponin T Triglycerides LDL Cholesterol Direct 03/30/20 03/30/20 03/31/20 15:16 21:54 04:27 WBC 15.8 H RBC 2.62 L Hgb 7.7 L Hct 24.1 L Lymph % (Auto) 9.4 L [place] % (Auto) [place] # Seg Neutrophils % 84.4 H Seg Neuts % (Manual) Lymphocytes % (Manual) Nucleated RBC % Seg Neutrophils # 13.3 H Seg Neutrophils # Man Lymphocytes # (Manual) Monocytes # (Manual) Eosinophils # (Manual) Heparin Anti-Xa Level ABG pO2 ABG HCO3 ABG O2 Saturation ABG Base Excess ABG Hemoglobin Oxyhemoglobin Sodium Potassium Chloride Carbon Dioxide BUN Creatinine Glucose POC Glucose 115 H 166 H Hemoglobin A1c Calcium Total Creatine Kinase CK-MB (CK-2) CK-MB (CK-2) Rel Index Troponin T Triglycerides LDL Cholesterol Direct 03/31/20 03/31/20 03/31/20 04:27 07:37 11:46 WBC RBC Hgb Hct Lymph % (Auto) [place] % (Auto) [place] # Seg Neutrophils % Seg Neuts % (Manual) Lymphocytes % (Manual) Nucleated RBC % Seg Neutrophils # Seg Neutrophils # Man Lymphocytes # (Manual) Monocytes # (Manual) Eosinophils # (Manual) Heparin Anti-Xa Level ABG pO2 ABG HCO3 ABG O2 Saturation ABG Base Excess ABG Hemoglobin Oxyhemoglobin Sodium 133 L Potassium Chloride 96.6 L Carbon Dioxide 18 L BUN 75 H Creatinine 2.5 H D Glucose 129 H POC Glucose 156 H 224 H Hemoglobin A1c Calcium 8.0 L Total Creatine Kinase CK-MB (CK-2) CK-MB (CK-2) Rel Index Troponin T Triglycerides LDL Cholesterol Direct Allied health notes reviewed: nursing
[2020-04-01] MEDS ORDERED: ALBUTEROL 2.5 MG/3 ML NEBU IH PRN (00:03)
[2020-04-01] MEDS ORDERED: IPRATROPIUM 0.02% NEBU 2.5 ML IH PRN (00:05)
[2020-04-01] MEDS: METOPROLOL TARTRATE 50 MG TAB PO SCH ×3 (04:31→22:01)
[2020-04-01] MEDS: PIPERACIL/TAZOBACTA 4.5/NS 100 4.5 GM/100 ML VIAL IV SCH (05:57)
--- NOTE | 2020-04-01 08:36 | Progress Note ---
Assessment and Plan Assessment and plan: --Anemia; Current Visit: Yes Status: Acute Gradual l drop in H&H, closely monitor and transfuse as needed --Acute kidney injury; vasomotor nephropathy Current Visit: Yes Status: Acute Gentle hydration, monitor renal function, avoid nephrotoxins, nephrology evaluation if needed --Hypotension; Current Visit: Yes Status: Acute patient RN CORONARY CARE UNIT pump on hold due to hypotension And give low-dose Dilaudid every 6 hours as needed for pain. Closely monitor blood pressures, fluid bolus as needed --Acute kidney injury; vasomotor nephropathy Current Visit: Yes Status: Acute Gentle hydration, monitor renal function Avoid nephrotoxins, nephrology consult if needed --Hyperkalemia; resolved Current Visit: Yes Status: Acute Monitor electrolytes. --Insomnia; Current Visit: Yes Status: Acute Optimal pain medications, sleeping aid Ambien 5 mg nightly --Acute left lower extremity ischemia,s/p Lt BKA Current Visit: Yes Status: Acute 03/19/2020 status post endovascular revascularization. 03/19/2020 s/p left LE, 4 compartment fasciotomy per vascular 03/25/2020 s/p left BKA on --SIRS; without organ dysfunction Current Visit: Yes Status: Acute leukocytosis trending down, continue Zosyn tachycardia, resolved --Non-ST elevation [place] : Current Visit: Yes Status: Acute Patient has history of CABG patient denies any chest pain. Management per cardiology Per cardiology non-STEMI 2 Elevated troponins at the time of admission --Acute systolic CHF; EF 30-35%% Current Visit: Yes Status: Acute Beta-blockers, BIJAN inhibitor, diuretics Improved -- Hyperglycemia due to diabetes mellitus Current Visit: Yes Status: Acute Accu-Chek sliding scale coverage ADA diet Long-acting insulin as needed, L6o---18.0 --Nicotine dependence Current Visit: Yes Status: Acute Smoking cessation nicotine patch as needed --DVT prophylaxis Current Visit: Yes Status: Acute Patient currently on anticoagulation. -- Full code status Current Visit: Yes Status: Acute Patient is on heparin drip Discharge planning issues Disposition ;acute rehab placement, pending insurance authorization Monitor closely and adjust management as needed Plan of care reviewed with the patient and his nurse 03/19/2020 status post endovascular revascularization. 03/19/2020 s/p left lower extremity 4 compartment fasciotomy 03/25/2020; s/p left BKA on 03/26/20; evaluated by PT, recommend acute rehab 03/29/20; acute rehab facility from [facility] evaluated the patient Patient is not ready for acute rehab, they will reevaluate 03/30/20; complains of insomnia, add Ambien 03/31; patient is hypotensive, RN CORONARY CARE UNIT pump discontinued. Added Dilaudid IV as needed 04/01; patient has worsening renal function, and drop in H&H, closely monitor transfuse as needed History Interval history: I have seen and examined the patient at the bedside Patient's chart and medications reviewed Patient has mild drop in H&H and worsening renal function, Alert awake oriented, no new complaints except for generalized weakness Vital signs reviewed Hospitalist Physical - Constitutional Vitals: Temp Pulse Resp BP Pulse Ox 97.5 F L 80 16 98/64 98 04/01/20 00:45 04/01/20 04:31 04/01/20 00:45 04/01/20 04:31 03/31/20 23:20 General appearance: Present: no acute distress, well-nourished, obese (Morbidly) - EENT Eyes: Present: PERRL, EOM intact ENT: hearing intact, clear oral mucosa - Neck Neck: Present: supple, normal ROM - Respiratory Respiratory effort: normal Respiratory: bilateral: diminished, other, negative: rales, rhonchi, wheezing - Cardiovascular Rhythm: regular Heart Sounds: Present: S1 & S2 - Extremities Extremities: no ischemia, No edema, abnormal (Left BKA) - Abdominal General gastrointestinal: soft, non-tender, non-distended, normal bowel sounds - Integumentary Integumentary: Present: clear, warm - Psychiatric Psychiatric: appropriate mood/affect, cooperative - Neurologic Neurologic: moves all extremities HEART Score - HEART Score Troponin: Troponin T 3.200 ng/mL (0.00-0.029) H* D 03/20/20 05:12 Results - Labs CBC & Chem 7: 04/01/20 10:52 04/01/20 10:52 Labs: Laboratory Last Values WBC 15.8 K/mm3 (4.5-11.0) H 03/31/20 04:27 RBC 2.62 M/mm3 (3.65-5.03) L 03/31/20 04:27 Hgb 7.7 gm/dl (11.8-15.2) L 03/31/20 04:27 Hct 24.1 % (35.5-45.6) L 03/31/20 04:27 MCV 92 fl (84-94) 03/31/20 04:27 MCH 30 pg (28-32) 03/31/20 04:27 MCHC 32 % (32-34) 03/31/20 04:27 RDW 14.6 % (13.2-15.2) 03/31/20 04:27 Plt Count 337 K/mm3 (140-440) 03/31/20 04:27 Lymph % (Auto) 9.4 % (13.4-35.0) L 03/31/20 04:27 [place] % (Auto) 4.1 % (0.0-7.3) 03/31/20 04:27 Eos % (Auto) 1.8 % (0.0-4.3) 03/31/20 04: Baso % (Auto) 0.3 % (0.0-1.8) 03/31/20 04:27 Lymph # 1.5 K/mm3 (1.2-5.4) 03/31/20 04:27 [place] # 0.7 K/mm3 (0.0-0.8) 03/31/20 04:27 Eos # 0.3 K/mm3 (0.0-0.4) 03/31/20 04:27 Baso # 0.0 K/mm3 (0.0-0.1) 03/31/20 04:27 Add Manual Diff Complete 03/29/20 14:19 Total Counted 100 03/29/20 14:19 Seg Neutrophils % 84.4 % (40.0-70.0) H 03/31/20 04:27 Seg Neuts % (Manual) 85.0 % (40.0-70.0) H 03/29/20 14:19 Band Neutrophils % 0 % 03/29/20 14:19 Lymphocytes % (Manual) 11.0 % (13.4-35.0) L 03/29/20 14:19 Reactive Lymphs % (Man) 0 % 03/29/20 14:19 Monocytes % (Manual) 1.0 % (0.0-7.3) 03/29/20 14:19 Eosinophils % (Manual) 3.0 % (0.0-4.3) 03/29/20 14:19 Basophils % (Manual) 0 % (0.0-1.8) 03/29/20 14:19 Metamyelocytes % 0 % 03/29/20 14:19 Myelocytes % 0 % 03/29/20 14:19 Promyelocytes % 0 % 03/29/20 14:19 Blast Cells % 0 % 03/29/20 14:19 Nucleated RBC % 3.0 % (0.0-0.9) H 03/29/20 14:19 Seg Neutrophils # 13.3 K/mm3 (1.8-7.7) H 03/31/20 04:27 Seg Neutrophils # Man 18.3 K/mm3 (1.8-7.7) H 03/29/20 14:19 Band Neutrophils # 0.0 K/mm3 03/29/20 14:19 Lymphocytes # (Manual) 2.4 K/mm3 (1.2-5.4) 03/29/20 14:19 Abs React Lymphs (Man) 0.0 K/mm3 03/29/20 14:19 Monocytes # (Manual) 0.2 K/mm3 (0.0-0.8) 03/29/20 14:19 Eosinophils # (Manual) 0.6 K/mm3 (0.0-0.4) H 03/29/20 14:19 Basophils # (Manual) 0.0 K/mm3 (0.0-0.1) 03/29/20 14:19 Metamyelocytes # 0.0 K/mm3 03/29/20 14:19 Myelocytes # 0.0 K/mm3 03/29/20 14:19 Promyelocytes # 0.0 K/mm3 03/29/20 14:19 Blast Cells # 0.0 K/mm3 03/29/20 14:19 WBC Morphology Not Reportable 03/29/20 14:19 Hypersegmented Neuts Not Reportable 03/29/20 14:19 Hyposegmented Neuts Not Reportable 03/29/20 14:19 Hypogranular Neuts Not Reportable 03/29/20 14:19 Smudge Cells Not Reportable 03/29/20 14:19 Toxic Granulation Not Reportable 03/29/20 14:19 Toxic Vacuolation Not Reportable 03/29/20 14:19 Dohle Bodies Not Reportable 03/29/20 14:19 Pelger-Huet Anomaly Not Reportable 03/29/20 14:19 Ananya Rods Not Reportable 03/29/20 14:19 Platelet Estimate Consistent w auto 03/29/20 14:19 Clumped Platelets Not Reportable 03/29/20 14:19 Plt Clumps, EDTA Not Reportable 03/29/20 14:19 Large Platelets Not Reportable 03/29/20 14:19 Giant Platelets Not Reportable 03/29/20 14:19 Platelet Satelliting Not Reportable 03/29/20 14:19 Plt Morphology Comment Not Reportable 03/29/20 14:19 RBC Morphology Not Reportable 03/29/20 14:19 Dimorphic RBCs Not Reportable 03/29/20 14:19 Polychromasia Not Reportable 03/29/20 14:19 Hypochromasia Not Reportable 03/29/20 14:19 Poikilocytosis Not Reportable 03/29/20 14:19 Anisocytosis 1+ 03/29/20 14:19 Microcytosis Not Reportable 03/29/20 14:19 Macrocytosis Not Reportable 03/29/20 14:19 Spherocytes Not Reportable 03/29/20 14:19 Pappenheimer Bodies Not Reportable 03/29/20 14:19 Sickle Cells Not Reportable 03/29/20 14:19 Target Cells Not Reportable 03/29/20 14:19 Tear Drop Cells Not Reportable 03/29/20 14:19 Ovalocytes Not Reportable 03/29/20 14:19 Helmet Cells Not Reportable 03/29/20 14:19 Light-Bruno Bodies Not Reportable 03/29/20 14:19 Polk Rings Not Reportable 03/29/20 14:19 Kianna Cells Not Reportable 03/29/20 14:19 Bite Cells Not Reportable 03/29/20 14:19 Crenated Cell Not Reportable 03/29/20 14:19 Elliptocytes Not Reportable 03/29/20 14:19 Acanthocytes (Spur) Not Reportable 03/29/20 14:19 Rouleaux Not Reportable 03/29/20 14:19 Hemoglobin C Crystals Not Reportable 03/29/20 14:19 Schistocytes Not Reportable 03/29/20 14:19 Malaria parasites Not Reportable 03/29/20 14:19 Steven Bodies Not Reportable 03/29/20 14:19 Hem Pathologist Commnt No 03/29/20 14:19 PT 12.7 Sec. (12.2-14.9) 03/19/20 08:08 INR 0.94 (0.87-1.13) 03/19/20 08:08 APTT 27.7 Sec. (24.2-36.6) 03/18/20 18:28 Heparin Anti-Xa Level 0.10 U.I./ml (0.3-0.7) L 03/25/20 04:06 ABG pH 7.405 pH Units (7.350-7.450) 03/20/20 04:35 ABG pCO2 40.3 mm Hg 03/20/20 04:35 ABG pO2 68.3 mm Hg (80.0-90.0) L 03/20/20 04:35 ABG HCO3 24.6 mmol/L (20.0-26.0) 03/20/20 04:35 ABG O2 Saturation 94.3 % (95.0-99.0) L 03/20/20 04:35 ABG O2 Content 9.3 (0.0-44) 03/20/20 04:35 ABG Base Excess -0.1 mmol/L (-2.0-3.0) 03/20/20 04:35 ABG Hemoglobin 7.1 gm/dl (14.0-18.0) L 03/20/20 04:35 ABG Carboxyhemoglobin 1.8 % (0.0-5.0) 03/20/20 04:35 ABG Methemoglobin 0.4 % (0.0-1.5) 03/20/20 04:35 Oxyhemoglobin 92.3 % (95.0-99.0) L 03/20/20 04:35 FiO2 35 % 03/20/20 04:35 Sodium 133 mmol/L (137-145) L 03/31/20 04:27 Potassium 5.0 mmol/L (3.6-5.0) 03/31/20 04:27 Chloride 96.6 mmol/L (98-107) L 03/31/20 04:27 Carbon Dioxide 18 mmol/L (22-30) L 03/31/20 04:27 Anion Gap 23 mmol/L 03/31/20 04:27 BUN 75 mg/dL (9-20) H 03/31/20 04:27 Creatinine 2.5 mg/dL (0.8-1.3) H D 03/31/20 04:27 Estimated GFR 27 ml/min 03/31/20 04:27 BUN/Creatinine Ratio 30 % 03/31/20 04:27 Glucose 129 mg/dL (75-100) H 03/31/20 04:27 POC Glucose 89 (70-105) 03/31/20 21:35 Hemoglobin A1c 11.0 % (4-6) H 03/18/20 22:21 Calcium 8.0 mg/dL (8.4-10.2) L 03/31/20 04:27 Magnesium 2.20 mg/dL (1.7-2.3) 03/28/20 07:39 Total Creatine Kinase 7255 units/L (55-170) H 03/19/20 08:08 CK-MB (CK-2) 79.3 ng/mL (0.0-4.0) H 03/19/20 08:08 CK-MB (CK-2) Rel Index 1.0 (0-4) 03/19/20 08:08 Troponin T 3.200 ng/mL (0.00-0.029) H* D 03/20/20 05:12 Triglycerides 188 mg/dL (2-149) H 03/18/20 18:28 Cholesterol 199 mg/dL (50-199) 03/18/20 18:28 LDL Cholesterol Direct 141 mg/dL (50-130) H 03/18/20 18:28 HDL Cholesterol 47 mg/dL (40-59) 03/18/20 18:28 Cholesterol/HDL Ratio 4.23 % 03/18/20 18:28 Blood Type B POSITIVE 03/25/20 11:42 Antibody Screen Negative 03/25/20 11:42 Microbiology: Microbiology 03/28/20 15:12 Sputum - Expectorated Sputum Sputum Culture - Final - Diagnostic Impressions Diagnostic Impressions: Echocardiogram 03/19/20 12:49 Transthoracic Echocardiogram Indication: CAD and Abnormal EKG HR: 110 Conclusions *The study is technically limited due to patient body habitus. *The left ventricular chamber size is mildly dilated. *Global left ventricular systolic function is moderate to severely decreased. *The estimated ejection fraction is 30-35%. *The basal inferolateral, and basal inferior wall segments are normal. *The mid inferolateral, mid inferior, apical lateral, and apical inferior wall segments are akinetic. *The left atrial chamber size is normal. Findings Procedure Info: The study is technically limited due to patient body habitus. The study was technically limited due to the patient's inability to lay in the left lateral decubitus position. Left Ventricle: The left ventricular chamber size is mildly dilated. Global left ventricular systolic function is moderate to severely decreased. The estimated ejection fraction is 30-35%. The basal inferolateral, and basal inferior wall segments are normal. The mid inferolateral, mid inferior, apical lateral, and apical inferior wall segments are akinetic. Left Atrium: The left atrial chamber size is normal. Right Ventricle: The right ventricle is not well visualized. Right Atrium: The right atrium is not well visualized. The right atrial cavity size is normal. Aortic Valve: The aortic valve is trileaflet. Mitral Valve: The mitral valve leaflets are moderately thickened. There is mild mitral regurgitation. Tricuspid Valve: The tricuspid valve is not well visualized. There is trace tricuspid regurgitation. Pulmonic Valve: The pulmonic valve is not well visualized. Pericardium: There is no pericardial effusion. Aorta: The aorta appears normal. Venous: The venous system is not well visualized. Contrast: Definity was used to optimize study. Measurements Chambers 2D Name Value Normal Range IVSd (2D) 0.94 cm (0.6 - 1.1) LVPWd (2D) 0.94 cm (0.6 - 1.1) LVIDd (2D) 6.15 cm (3.7 - 5.6) LVIDs (2D) 5.2 cm (2 - 3.8) LV FS (2D) 15.5 % - EF Teichholz (2D) 32.08 % - Ao root diameter (2D) 2.77 cm (2 - 3.7) Volumes/Mass Name Value Normal Range LA ESV SP 4CH (A/L) 73.77 ml - LA ESV SP 2CH (A/L) 66.45 ml - LA ESV BP (A/L) 71.61 ml - LA ESV BP (A/L) index 30.6 ml/m2 - LA ESV SP 4CH (MOD) 72.55 ml - LA ESV SP 2CH (MOD) 65.34 ml - LA ESV BP (MOD) 70.27 ml - LA ESV BP (MOD) index 30.03 ml/m2 - Diastolic/Systolic Function Name Value Normal Range MV E-wave Vmax 0.85 m/sec - MV deceleration time 69.14 msec - MV A-wave Vmax 0.89 m/sec - MV E:A ratio 0.95 ratio - Aortic Valve Name Value Normal Range AV Vmax 0.96 m/sec - AV VTI 11.83 cm - AV peak gradient 3.68 mmHg - AV mean gradient 1.6 mmHg - LVOT diameter 2.19 cm - LVOT Vmax 0.86 m/sec - LVOT VTI 13.33 cm - LVOT peak gradient 2.96 mmHg - LVOT mean gradient 1.48 mmHg - SV LVOT 50.08 ml - DEYA (continuity Vmax) 3.37 cm2 - DEYA (continuity VTI) 4.23 cm2 - Ascending Ao 2.92 cm - Pulmonic Valve/Qp:Qs Name Value Normal Range PV Vmax 1.08 m/sec - PV VTI 15.88 cm - PV peak gradient 4.7 mmHg - PV mean gradient 2.18 mmHg - RVOT Vmax 0.82 m/sec - RVOT VTI 11.48 cm - RVOT peak gradient 2.67 mmHg - Wallmotion BAS Not Seen BA Not Seen BAL Not Seen BAY Normal BI Normal BIS Not Seen MAS Not Seen MA Not Seen MAL Not Seen MIL Akinetic [place] Akinetic MIS Not Seen Not Seen AA Not Seen AL Akinetic AI Akinetic APEX Not Seen Tyson/IV: Voiding Method Urinal IV Catheter Type [Right Peripheral IV Forearm] IV Catheter Type [Right INT / Saline Lock Antecubital] IV Catheter Type [Left Forearm INT / Saline Lock ] IV Catheter Type [Left Upper Peripheral IV arm] IV Catheter Type [Left Peripheral IV Antecubital] Active Medications - Current Medications Current Medications: Generic Name Dose Route Start Last Admin Trade Name Freq PRN Reason Stop Dose Admin Acetaminophen/Hydrocodone Bitart 2 each 03/22/20 17:18 03/31/20 17:12 [place] 5/325 PO 2 each Q4H PRN Administration Pain, Moderate (4-6) Albuterol 2.5 mg 04/01/20 00:03 Proventil IH Q6HRT PRN Shortness Of Breath Apixaban 5 mg 03/26/20 22:00 03/31/20 22:24 Eliquis PO 5 mg Q12HR LOI Administration Protocol Arformoterol Tartrate 15 mcg 03/19/20 20:00 03/31/20 19:09 Brovana Nebu IH 15 mcg Q12HRT LOI Administration Atorvastatin Calcium 40 mg 03/19/20 22:00 03/31/20 22:23 Lipitor PO 40 mg QHS LOI Administration Budesonide 0.5 mg 03/19/20 20:00 03/31/20 19:09 Pulmicort IH 0.5 mg Q12HRT LOI Administration Clopidogrel Bisulfate 75 mg 03/19/20 10:00 03/31/20 09:45 Plavix PO 75 mg QDAY LOI Administration Dextrose 50 ml 03/18/20 22:21 D50w (25gm) Syringe IV Q30MIN PRN Hypoglycemia Protocol Diphenhydramine HCl 25 mg 03/19/20 12:44 Benadryl IV Q4H PRN Itching Guaifenesin 10 ml 04/01/20 00:03 Guaifenesin Dm Syrup PO Q4H PRN Cough Hydromorphone/Sodium Chloride 0 mg 03/19/20 13:00 03/30/20 02:09 Dilaudid [employer] 6mg/30ml IV 1 cart DIRECT LOI Administration Protocol Piperacillin Sod/Tazobactam Sod 4.5 gm in 100 mls @ 200 mls/hr 03/28/20 14:00 04/01/20 05:57 Zosyn/Ns 4.5gm/100ml IV 100 mls/hr Q8HR LOI Administration Sodium Chloride 500 mls @ 2 mls/hr 03/28/20 22:00 03/30/20 22:45 Nacl 0.9% 500 Ml IV 2 mls/hr DIRECT LOI Administration Insulin Glargine 25 units 03/22/20 22:00 03/31/20 22:00 Lantus SUB-Q Not Given QHS LOI Insulin Human Lispro 0 unit 03/20/20 16:30 03/31/20 22:00 Humalog SUB-Q Not Given ACHS [facility] Protocol Insulin Human Lispro 8 unit 03/28/20 11:30 03/31/20 15:55 Humalog SUB-Q Not Given AC LOI Ipratropium [place] 0.5 mg 04/01/20 00:05 Atrovent IH Q6HRT PRN Shortness Of Breath Magnesium Hydroxide 30 ml 03/18/20 22:21 Milk Of Magnesia PO Q4H PRN Constipation Metoprolol Tartrate 50 mg 03/19/20 22:00 04/01/20 04:31 Metoprolol PO Not Given BID LOI Naloxone HCl 0.1 mg 03/19/20 12:44 Naloxone IV Q2MIN PRN Res Rate </= 8 or 02 SAT < 92% Ondansetron HCl 4 mg 03/18/20 22:21 Zofran IV Q8H PRN Nausea And Vomiting Pantoprazole Sodium 40 mg 03/20/20 10:00 03/31/20 22:22 Protonix PO 40 mg BID LOI Administration Pregabalin 150 mg 03/22/20 22:00 03/31/20 22:23 Pregabalin PO 150 mg BID LOI Administration Sodium Chloride 10 ml 03/19/20 10:00 03/31/20 22:32 Sodium Chloride Flush Syringe 10 Ml IV 10 ml BID LOI Administration Sodium Chloride 10 ml 03/18/20 22:21 03/22/20 19:52 Sodium Chloride Flush Syringe 10 Ml IV 10 ml PRN PRN Administration LINE FLUSH Zolpidem Tartrate 5 mg 03/31/20 19:09 Ambien PO QHS PRN Sleep Nutrition/Malnutrition Assess - Dietary Evaluation Nutrition/Malnutrition Findings: Nutrition Notes Start: 03/19/20 11:59 Freq: Status: Active Protocol: Document 03/28/20 13:11 [facility] (Rec: 03/28/20 13:21 [facility] [id number]) Nutrition Notes Initial or Follow up Assessment Current Diagnosis COPD,Diabetes Other Pertinent Diagnosis (L) LE ischemia s/p (L) BKA, STARR, NSTEMI Current Diet Cardiac/Consistent CHO Labs/Tests Na 134 (likely 136-137) BG 240 BUN 47 Pertinent Medications Dilaudid RN CORONARY CARE UNIT, Lantus Height 6 ft Weight 123.2 kg [place] Body Weight (kg) 80.90 BMI 36.8 Weight change and time frame AdjBW for amputation: 130.9kg Adj BMI: 39 Weight Status Obese Subjective/Other Information Spoke with pt via phone at 12: 36. He says his appetite is " not the best", but he eats. PO intakes vary from 25-100%; he denies need for ONS at this time. He verbalizes a few food preferences. Burn Absent Trauma Absent Current % PO Fair (50-74%) Minimum of two criteria No #1 Nutrition Diagnosis Increased nutrient needs ( specify in comment below) Etiology increased demands of healing As Evidenced by Signs and Symptoms s/p recent BKA Is patient on ventilator? No Is Patient Ambulatory and/or Out of Bed No REE-([place]-confined to bed) 2529.804 Kcal/Kg value to use for calculation 17 Approximate Energy Requirements Using 2094 kcal/Kg Calculation Used for Recommendations Kcal/kg Additional Notes Pro needs 1-1.2g/kg adjBW (not for amputation): 102-122g/day Fluid needs 1ml/kcal Nutrition Intervention Change Diet Order: Continue current diet order; honor food preferences Goal #1 PO intakes to meet at least 75 % energy and pro needs Goal #2 Healing of surgical site Anticipated Discharge Needs: Heart-healthy/CHO-controlled diet Follow-Up By: 04/02/20 Additional Comments F/U: intakes
[2020-04-01] MEDS: ARFORMOTEROL 15 MCG/2 ML NEBU IH SCH ×2 (08:42→19:56)
[2020-04-01] MEDS: BUDESONIDE 0.5 MG/2 ML NEBU IH SCH ×2 (08:43→19:56)
[2020-04-01] MEDS: [UNRECOGNIZED DRUG - REMARK] SUB-Q SCH ×4 (10:54→22:02)
[2020-04-01] MEDS: INSULIN LISPRO 100 UNIT/ML VIAL 3 mL SUB-Q SCH ×3 (10:54→18:04)
[2020-04-01 11:09] LABS: Basophils # (Auto) 0.1 K/mm3 (0.0-0.1); Basophils % (Auto) 0.9 % (0.0-1.8); Eosinophils # (Auto) 0.1 K/mm3 (0.0-0.4); Eosinophils % (Auto) 0.9 % (0.0-4.3); Hematocrit 24.8 % (35.5-45.6); Hemoglobin 8.2 gm/dl (11.8-15.2); Lymphocytes # (Auto) 1.4 K/mm3 (1.2-5.4); Lymphocytes % (Auto) 10.6 % (13.4-35.0); Mean Corpuscular HGB Conc 33 % (32-34); Mean Corpuscular Volume 90 fl (84-94); Monocytes # (Auto) 0.5 K/mm3 (0.0-0.8); Monocytes % (Auto) 3.9 % (0.0-7.3); Platelet Count 378 K/mm3 (140-440); Red Blood Count 2.75 M/mm3 (3.65-5.03); Red Cell Distribution Width 14.8 % (13.2-15.2)
[2020-04-01] MEDS: PREGABALIN 75 MG CAP PO SCH ×2 (11:26→22:01)
[2020-04-01] MEDS: APIXABAN 5 MG TAB PO SCH ×2 (11:26→22:02)
[2020-04-01] MEDS: CLOPIDOGREL 75 MG TAB PO SCH (11:26)
[2020-04-01] MEDS: PANTOPRAZOLE 40 MG TAB PO SCH ×2 (11:26→22:01)
[2020-04-01 11:38] LABS: Calcium 7.9 mg/dL (8.4-10.2)
[2020-04-01] MEDS: SODIUM CHLORIDE 0.9% 1000 ML 1,000 ML IV SCH (13:48)
[2020-04-01] MEDS: HYDROcodone/ACETAMINOPHEN 5-325 MG TAB PO PRN (13:57)
--- NOTE | 2020-04-01 14:03 | Progress Note ---
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 Patient Obese. Complaining pain in left leg. Patient presently on room air and O2 saturation running 97%. Patient says no cough to day. Chest xray 03/26/20 reported Stable cardiomegaly. New right lower lobe infiltrate or congestive changes. ABG FIO2 35%. ABG pH 7.405 pH Units (7.350-7.450) 03/20/20 04:35 ABG pCO2 40.3 mm Hg 03/20/20 04:35 ABG pO2 68.3 mm Hg (80.0-90.0) L 03/20/20 04:35 ABG O2 Saturation 94.3 % (95.0-99.0) L 03/20/20 04:35 Patient afebrile and has leukocytosis Patient is on I/V Zosyn. Patient is on Apixaban. Patient is on Protonix for GI prophylaxis. Recommend incentive spirometry. Patient blood pressure running slightly low. Recommend I/V fluid NSS bolus. Patient is on Brovanna/Budesonide aerosol treatments. In addition recommend albuterol/atrovent aerosol treatments q 6 hours PRN for shortness of breath. Robitussin DM PRN for cough. Patient undergoing physical therapy. 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 (2) Cardiomyopathy Current Visit: Yes Status: Acute Plan to address problem: Management as per primary care and cardiology. (3) Elevated troponin Current Visit: Yes Status: Acute Plan to address problem: Management as per primary care and cardiology. (4) Hx of two vessel coronary artery bypass graft Current Visit: Yes Status: Acute Plan to address problem: Management as per cardiology. (5) NSTEMI (non-ST elevated myocardial infarction) Current Visit: Yes Status: Acute Plan to address problem: Management as per cardiology. (6) HTN (hypertension) Current Visit: Yes Status: Chronic Plan to address problem: Management as per primary care. (7) History of CVA (cerebrovascular accident) Current Visit: Yes Status: Chronic Plan to address problem: management as per primary care. (8) Smoker Current Visit: Yes Status: Chronic Plan to address problem: Counseled to stop smoking. 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 Patient Obese. Complaining pain in left leg. Patient presently on room air and O2 saturation running 97%. Patient says no cough to day. Chest xray 03/26/20 reported Stable cardiomegaly. New right lower lobe infiltrate or congestive changes. ABG FIO2 35%. ABG pH 7.405 pH Units (7.350-7.450) 03/20/20 04:35 ABG pCO2 40.3 mm Hg 03/20/20 04:35 ABG pO2 68.3 mm Hg (80.0-90.0) L 03/20/20 04:35 ABG O2 Saturation 94.3 % (95.0-99.0) L 03/20/20 04:35 Patient afebrile and has leukocytosis Patient is on I/V Zosyn. Patient is on Apixaban. Patient is on Protonix for GI prophylaxis. Recommend incentive spirometry. Patient blood pressure running slightly low. Recommend I/V fluid NSS bolus. Patient is on Brovanna/Budesonide aerosol treatments. In addition recommend albuterol/atrovent aerosol treatments q 6 hours PRN for shortness of breath. Robitussin DM PRN for cough. Patient undergoing physical therapy. Objective Vital Signs - 12hr 04/01/20 04/01/20 04/01/20 04:31 05:32 08:43 Temperature 97.9 F Pulse Rate 80 92 H Pulse Rate [ Anterior Bilateral Throughout] Respiratory 20 20 Rate Respiratory Rate [Anterior Bilateral Throughout] Blood Pressure 98/64 109/71 O2 Sat by Pulse 95 Oximetry 04/01/20 04/01/20 04/01/20 09:35 09:37 11:26 Temperature Pulse Rate 90 Pulse Rate [ 80 Anterior Bilateral Throughout] Respiratory Rate Respiratory 20 Rate [Anterior Bilateral Throughout] Blood Pressure 117/78 O2 Sat by Pulse 97 Oximetry Constitutional: no acute distress, alert, other (middle aged obese male with mildly increased respiratory effort at rest) Eyes: non-icteric ENT: oropharynx moist Neck: supple, no lymphadenopathy, no JVD Effort: mildly labored Ascultation: Bilateral: diminished breath sounds Percussion: Bilateral: not dull Cardiovascular: regular rate and rhythm Gastrointestinal: normoactive bowel sounds, soft, non-tender, non-distended (protuberant) Integumentary: rash Extremities: cool, edema, other (left BKA with clean dressing) Neurologic: normal mental status, non-focal exam, pupils equal and round, motor strength normal and Psychiatric: mood appropriate, affect normal CBC and BMP: 04/01/20 10:52 04/01/20 10:52 ABG, PT/INR, D-dimer: ABG ABG pH 7.405 pH Units (7.350-7.450) 03/20/20 04:35 ABG pCO2 40.3 mm Hg 03/20/20 04:35 ABG pO2 68.3 mm Hg (80.0-90.0) L 03/20/20 04:35 ABG O2 Saturation 94.3 % (95.0-99.0) L 03/20/20 04:35 PT/INR, D-dimer PT 12.7 Sec. (12.2-14.9) 03/19/20 08:08 INR 0.94 (0.87-1.13) 03/19/20 08:08 Abnormal lab findings: Abnormal Labs 03/18/20 03/18/20 03/18/20 18:28 18:28 20:56 WBC 12.3 H RBC Hgb Hct Lymph % (Auto) 11.0 L [place] % (Auto) 9.8 H [place] # 1.2 H Seg Neutrophils % 78.4 H Seg Neuts % (Manual) Lymphocytes % (Manual) Nucleated RBC % Seg Neutrophils # 9.6 H Seg Neutrophils # Man Lymphocytes # (Manual) Monocytes # (Manual) Eosinophils # (Manual) Heparin Anti-Xa Level ABG pO2 ABG HCO3 ABG O2 Saturation ABG Base Excess ABG Hemoglobin Oxyhemoglobin Sodium 132 L Potassium Chloride 91.9 L Carbon Dioxide 20 L BUN Creatinine 1.4 H Glucose 406 H POC Glucose Hemoglobin A1c Calcium Total Creatine Kinase 2727 H 2492 H CK-MB (CK-2) 135.9 H 107.2 H CK-MB (CK-2) Rel Index 4.3 H Troponin T 5.110 H* 3.960 H* D Triglycerides 188 H LDL Cholesterol Direct 141 H 03/18/20 03/19/20 03/19/20 22:21 01:57 08:08 WBC RBC Hgb Hct Lymph % (Auto) [place] % (Auto) [place] # Seg Neutrophils % Seg Neuts % (Manual) Lymphocytes % (Manual) Nucleated RBC % Seg Neutrophils # Seg Neutrophils # Man Lymphocytes # (Manual) Monocytes # (Manual) Eosinophils # (Manual) Heparin Anti-Xa Level ABG pO2 ABG HCO3 ABG O2 Saturation ABG Base Excess ABG Hemoglobin Oxyhemoglobin Sodium Potassium Chloride Carbon Dioxide BUN Creatinine Glucose POC Glucose 317 H Hemoglobin A1c 11.0 H Calcium Total Creatine Kinase 7255 H CK-MB (CK-2) 79.3 H CK-MB (CK-2) Rel Index Troponin T 5.540 H* D Triglycerides LDL Cholesterol Direct 03/19/20 03/19/20 03/19/20 08:08 08:08 08:08 WBC 13.3 H RBC Hgb Hct Lymph % (Auto) 10.7 L [place] % (Auto) 8.5 H [place] # 1.1 H Seg Neutrophils % 80.0 H Seg Neuts % (Manual) Lymphocytes % (Manual) Nucleated RBC % Seg Neutrophils # 10.6 H Seg Neutrophils # Man Lymphocytes # (Manual) Monocytes # (Manual) Eosinophils # (Manual) Heparin Anti-Xa Level 0.10 L ABG pO2 ABG HCO3 ABG O2 Saturation ABG Base Excess ABG Hemoglobin Oxyhemoglobin Sodium 133 L Potassium 5.1 H Chloride Carbon Dioxide 17 L BUN 23 H Creatinine Glucose 313 H POC Glucose Hemoglobin A1c Calcium Total Creatine Kinase CK-MB (CK-2) CK-MB (CK-2) Rel Index Troponin T Triglycerides LDL Cholesterol Direct 03/19/20 03/19/20 03/19/20 15:40 18:23 21:32 WBC RBC Hgb Hct Lymph % (Auto) [place] % (Auto) [place] # Seg Neutrophils % Seg Neuts % (Manual) Lymphocytes % (Manual) Nucleated RBC % Seg Neutrophils # Seg Neutrophils # Man Lymphocytes # (Manual) Monocytes # (Manual) Eosinophils # (Manual) Heparin Anti-Xa Level < 0.10 L ABG pO2 ABG HCO3 18.3 L ABG O2 Saturation ABG Base Excess -5.4 L ABG Hemoglobin 12.2 L Oxyhemoglobin 94.6 L Sodium Potassium Chloride Carbon Dioxide BUN Creatinine Glucose POC Glucose 348 H Hemoglobin A1c Calcium Total Creatine Kinase CK-MB (CK-2) CK-MB (CK-2) Rel Index Troponin T Triglycerides LDL Cholesterol Direct 03/20/20 03/20/20 03/20/20 04:35 05:12 05:12 WBC 11.1 H RBC 3.63 L Hgb 11.0 L Hct 32.7 L D Lymph % (Auto) [place] % (Auto) 8.1 H [place] # 0.9 H Seg Neutrophils % 75.8 H Seg Neuts % (Manual) Lymphocytes % (Manual) Nucleated RBC % Seg Neutrophils # 8.4 H Seg Neutrophils # Man Lymphocytes # (Manual) Monocytes # (Manual) Eosinophils # (Manual) Heparin Anti-Xa Level 0.28 L ABG pO2 68.3 L ABG HCO3 ABG O2 Saturation 94.3 L ABG Base Excess ABG Hemoglobin 7.1 L Oxyhemoglobin 92.3 L Sodium Potassium Chloride Carbon Dioxide BUN Creatinine Glucose POC Glucose Hemoglobin A1c Calcium Total Creatine Kinase CK-MB (CK-2) CK-MB (CK-2) Rel Index Troponin T Triglycerides LDL Cholesterol Direct 03/20/20 03/20/20 03/20/20 05:12 07:49 12:15 WBC RBC Hgb Hct Lymph % (Auto) [place] % (Auto) [place] # Seg Neutrophils % Seg Neuts % (Manual) Lymphocytes % (Manual) Nucleated RBC % Seg Neutrophils # Seg Neutrophils # Man Lymphocytes # (Manual) Monocytes # (Manual) Eosinophils # (Manual) Heparin Anti-Xa Level ABG pO2 ABG HCO3 ABG O2 Saturation ABG Base Excess ABG Hemoglobin Oxyhemoglobin Sodium 134 L Potassium Chloride Carbon Dioxide 21 L BUN 23 H Creatinine Glucose 275 H POC Glucose 294 H 357 H Hemoglobin A1c Calcium Total Creatine Kinase CK-MB (CK-2) CK-MB (CK-2) Rel Index Troponin T 3.200 H* D Triglycerides LDL Cholesterol Direct 03/20/20 03/20/20 03/21/20 17:16 22:08 04:44 WBC RBC Hgb Hct Lymph % (Auto) [place] % (Auto) [place] # Seg Neutrophils % Seg Neuts % (Manual) Lymphocytes % (Manual) Nucleated RBC % Seg Neutrophils # Seg Neutrophils # Man Lymphocytes # (Manual) Monocytes # (Manual) Eosinophils # (Manual) Heparin Anti-Xa Level ABG pO2 ABG HCO3 ABG O2 Saturation ABG Base Excess ABG Hemoglobin Oxyhemoglobin Sodium 136 L Potassium Chloride Carbon Dioxide 18 L BUN 26 H Creatinine Glucose 266 H POC Glucose 327 H 292 H Hemoglobin A1c Calcium 8.1 L Total Creatine Kinase CK-MB (CK-2) CK-MB (CK-2) Rel Index Troponin T Triglycerides LDL Cholesterol Direct 03/21/20 03/21/20 03/21/20 07:50 12:25 15:53 WBC RBC Hgb Hct Lymph % (Auto) [place] % (Auto) [place] # Seg Neutrophils % Seg Neuts % (Manual) Lymphocytes % (Manual) Nucleated RBC % Seg Neutrophils # Seg Neutrophils # Man Lymphocytes # (Manual) Monocytes # (Manual) Eosinophils # (Manual) Heparin Anti-Xa Level ABG pO2 ABG HCO3 ABG O2 Saturation ABG Base Excess ABG Hemoglobin Oxyhemoglobin Sodium Potassium Chloride Carbon Dioxide BUN Creatinine Glucose POC Glucose 271 H 314 H 436 H Hemoglobin A1c Calcium Total Creatine Kinase CK-MB (CK-2) CK-MB (CK-2) Rel Index Troponin T Triglycerides LDL Cholesterol Direct 03/21/20 03/21/20 03/22/20 17:44 21:55 04:33 WBC RBC Hgb 10.0 L Hct 29.4 L Lymph % (Auto) [place] % (Auto) [place] # Seg Neutrophils % Seg Neuts % (Manual) Lymphocytes % (Manual) Nucleated RBC % Seg Neutrophils # Seg Neutrophils # Man Lymphocytes # (Manual) Monocytes # (Manual) Eosinophils # (Manual) Heparin Anti-Xa Level ABG pO2 ABG HCO3 ABG O2 Saturation ABG Base Excess ABG Hemoglobin Oxyhemoglobin Sodium Potassium Chloride Carbon Dioxide BUN Creatinine Glucose POC Glucose 362 H 329 H Hemoglobin A1c Calcium Total Creatine Kinase CK-MB (CK-2) CK-MB (CK-2) Rel Index Troponin T Triglycerides LDL Cholesterol Direct 03/22/20 03/22/20 03/22/20 08:57 14:12 19:57 WBC RBC Hgb Hct Lymph % (Auto) [place] % (Auto) [place] # Seg Neutrophils % Seg Neuts % (Manual) Lymphocytes % (Manual) Nucleated RBC % Seg Neutrophils # Seg Neutrophils # Man Lymphocytes # (Manual) Monocytes # (Manual) Eosinophils # (Manual) Heparin Anti-Xa Level ABG pO2 ABG HCO3 ABG O2 Saturation ABG Base Excess ABG Hemoglobin Oxyhemoglobin Sodium Potassium Chloride Carbon Dioxide BUN Creatinine Glucose POC Glucose 284 H 319 H 356 H Hemoglobin A1c Calcium Total Creatine Kinase CK-MB (CK-2) CK-MB (CK-2) Rel Index Troponin T Triglycerides LDL Cholesterol Direct 03/22/20 03/23/20 03/23/20 21:44 08:18 12:46 WBC RBC Hgb Hct Lymph % (Auto) [place] % (Auto) [place] # Seg Neutrophils % Seg Neuts % (Manual) Lymphocytes % (Manual) Nucleated RBC % Seg Neutrophils # Seg Neutrophils # Man Lymphocytes # (Manual) Monocytes # (Manual) Eosinophils # (Manual) Heparin Anti-Xa Level ABG pO2 ABG HCO3 ABG O2 Saturation ABG Base Excess ABG Hemoglobin Oxyhemoglobin Sodium Potassium Chloride Carbon Dioxide BUN Creatinine Glucose POC Glucose 336 H 215 H 262 H Hemoglobin A1c Calcium Total Creatine Kinase CK-MB (CK-2) CK-MB (CK-2) Rel Index Troponin T Triglycerides LDL Cholesterol Direct 03/23/20 03/23/20 03/24/20 15:56 22:05 02:35 WBC RBC Hgb 9.0 L Hct 25.8 L Lymph % (Auto) [place] % (Auto) [place] # Seg Neutrophils % Seg Neuts % (Manual) Lymphocytes % (Manual) Nucleated RBC % Seg Neutrophils # Seg Neutrophils # Man Lymphocytes # (Manual) Monocytes # (Manual) Eosinophils # (Manual) Heparin Anti-Xa Level ABG pO2 ABG HCO3 ABG O2 Saturation ABG Base Excess ABG Hemoglobin Oxyhemoglobin Sodium Potassium Chloride Carbon Dioxide BUN Creatinine Glucose POC Glucose 246 H 322 H Hemoglobin A1c Calcium Total Creatine Kinase CK-MB (CK-2) CK-MB (CK-2) Rel Index Troponin T Triglycerides LDL Cholesterol Direct 03/24/20 03/24/20 03/24/20 07:38 11:45 16:02 WBC RBC Hgb Hct Lymph % (Auto) [place] % (Auto) [place] # Seg Neutrophils % Seg Neuts % (Manual) Lymphocytes % (Manual) Nucleated RBC % Seg Neutrophils # Seg Neutrophils # Man Lymphocytes # (Manual) Monocytes # (Manual) Eosinophils # (Manual) Heparin Anti-Xa Level ABG pO2 ABG HCO3 ABG O2 Saturation ABG Base Excess ABG Hemoglobin Oxyhemoglobin Sodium Potassium Chloride Carbon Dioxide BUN Creatinine Glucose POC Glucose 289 H 257 H 150 H Hemoglobin A1c Calcium Total Creatine Kinase CK-MB (CK-2) CK-MB (CK-2) Rel Index Troponin T Triglycerides LDL Cholesterol Direct 03/24/20 03/25/20 03/25/20 21:24 04:06 07:39 WBC RBC Hgb Hct Lymph % (Auto) [place] % (Auto) [place] # Seg Neutrophils % Seg Neuts % (Manual) Lymphocytes % (Manual) Nucleated RBC % Seg Neutrophils # Seg Neutrophils # Man Lymphocytes # (Manual) Monocytes # (Manual) Eosinophils # (Manual) Heparin Anti-Xa Level 0.10 L ABG pO2 ABG HCO3 ABG O2 Saturation ABG Base Excess ABG Hemoglobin Oxyhemoglobin Sodium Potassium Chloride Carbon Dioxide BUN Creatinine Glucose POC Glucose 228 H 332 H Hemoglobin A1c Calcium Total Creatine Kinase CK-MB (CK-2) CK-MB (CK-2) Rel Index Troponin T Triglycerides LDL Cholesterol Direct 03/25/20 03/25/20 03/25/20 08:13 09:30 11:59 WBC 13.1 H RBC 2.82 L Hgb 8.5 L Hct 26.1 L Lymph % (Auto) [place] % (Auto) [place] # Seg Neutrophils % Seg Neuts % (Manual) Lymphocytes % (Manual) Nucleated RBC % Seg Neutrophils # Seg Neutrophils # Man Lymphocytes # (Manual) Monocytes # (Manual) Eosinophils # (Manual) Heparin Anti-Xa Level ABG pO2 ABG HCO3 ABG O2 Saturation ABG Base Excess ABG Hemoglobin Oxyhemoglobin Sodium 131 L Potassium 5.3 H Chloride Carbon Dioxide 20 L BUN 39 H Creatinine 1.4 H Glucose 313 H POC Glucose 273 H Hemoglobin A1c Calcium 8.1 L Total Creatine Kinase CK-MB (CK-2) CK-MB (CK-2) Rel Index Troponin T Triglycerides LDL Cholesterol Direct 03/25/20 03/25/20 03/25/20 13:54 15:58 18:21 WBC RBC Hgb Hct Lymph % (Auto) [place] % (Auto) [place] # Seg Neutrophils % Seg Neuts % (Manual) Lymphocytes % (Manual) Nucleated RBC % Seg Neutrophils # Seg Neutrophils # Man Lymphocytes # (Manual) Monocytes # (Manual) Eosinophils # (Manual) Heparin Anti-Xa Level ABG pO2 ABG HCO3 ABG O2 Saturation ABG Base Excess ABG Hemoglobin Oxyhemoglobin Sodium Potassium Chloride Carbon Dioxide BUN Creatinine Glucose POC Glucose 246 H 235 H 185 H Hemoglobin A1c Calcium Total Creatine Kinase CK-MB (CK-2) CK-MB (CK-2) Rel Index Troponin T Triglycerides LDL Cholesterol Direct 03/25/20 03/26/20 03/26/20 20:45 05:15 06:59 WBC 17.4 H 15.6 H RBC 3.05 L 3.05 L Hgb 9.1 L 9.2 L Hct 28.2 L 27.9 L Lymph % (Auto) 8.9 L 8.9 L [place] % (Auto) [place] # 1.0 H Seg Neutrophils % 84.4 H 84.8 H Seg Neuts % (Manual) Lymphocytes % (Manual) Nucleated RBC % Seg Neutrophils # 14.7 H 13.2 H Seg Neutrophils # Man Lymphocytes # (Manual) Monocytes # (Manual) Eosinophils # (Manual) Heparin Anti-Xa Level ABG pO2 ABG HCO3 ABG O2 Saturation ABG Base Excess ABG Hemoglobin Oxyhemoglobin Sodium Potassium Chloride Carbon Dioxide BUN Creatinine Glucose POC Glucose 178 H Hemoglobin A1c Calcium Total Creatine Kinase CK-MB (CK-2) CK-MB (CK-2) Rel Index Troponin T Triglycerides LDL Cholesterol Direct 03/26/20 03/26/20 03/26/20 06:59 07:43 11:56 WBC RBC Hgb Hct Lymph % (Auto) [place] % (Auto) [place] # Seg Neutrophils % Seg Neuts % (Manual) Lymphocytes % (Manual) Nucleated RBC % Seg Neutrophils # Seg Neutrophils # Man Lymphocytes # (Manual) Monocytes # (Manual) Eosinophils # (Manual) Heparin Anti-Xa Level ABG pO2 ABG HCO3 ABG O2 Saturation ABG Base Excess ABG Hemoglobin Oxyhemoglobin Sodium 131 L Potassium 5.8 H Chloride Carbon Dioxide 16 L BUN 42 H Creatinine 1.4 H Glucose 163 H POC Glucose 170 H 198 H Hemoglobin A1c Calcium 8.0 L Total Creatine Kinase CK-MB (CK-2) CK-MB (CK-2) Rel Index Troponin T Triglycerides LDL Cholesterol Direct 03/26/20 03/26/20 03/26/20 13:58 16:16 21:00 WBC RBC Hgb Hct Lymph % (Auto) [place] % (Auto) [place] # Seg Neutrophils % Seg Neuts % (Manual) Lymphocytes % (Manual) Nucleated RBC % Seg Neutrophils # Seg Neutrophils # Man Lymphocytes # (Manual) Monocytes # (Manual) Eosinophils # (Manual) Heparin Anti-Xa Level ABG pO2 ABG HCO3 ABG O2 Saturation ABG Base Excess ABG Hemoglobin Oxyhemoglobin Sodium 128 L Potassium 6.0 H Chloride Carbon Dioxide 15 L BUN 45 H Creatinine 1.4 H Glucose 190 H POC Glucose 184 H 192 H Hemoglobin A1c Calcium 8.2 L Total Creatine Kinase CK-MB (CK-2) CK-MB (CK-2) Rel Index Troponin T Triglycerides LDL Cholesterol Direct 03/27/20 03/27/20 03/27/20 08:32 11:51 14:39 WBC 22.9 H RBC 2.68 L Hgb 7.9 L Hct 24.7 L Lymph % (Auto) [place] % (Auto) [place] # Seg Neutrophils % Seg Neuts % (Manual) Lymphocytes % (Manual) Nucleated RBC % Seg Neutrophils # Seg Neutrophils # Man Lymphocytes # (Manual) Monocytes # (Manual) Eosinophils # (Manual) Heparin Anti-Xa Level ABG pO2 ABG HCO3 ABG O2 Saturation ABG Base Excess ABG Hemoglobin Oxyhemoglobin Sodium Potassium Chloride Carbon Dioxide BUN Creatinine Glucose POC Glucose 233 H 252 H Hemoglobin A1c Calcium Total Creatine Kinase CK-MB (CK-2) CK-MB (CK-2) Rel Index Troponin T Triglycerides LDL Cholesterol Direct 03/27/20 03/27/20 03/27/20 14:39 15:19 21:35 WBC RBC Hgb Hct Lymph % (Auto) [place] % (Auto) [place] # Seg Neutrophils % Seg Neuts % (Manual) Lymphocytes % (Manual) Nucleated RBC % Seg Neutrophils # Seg Neutrophils # Man Lymphocytes # (Manual) Monocytes # (Manual) Eosinophils # (Manual) Heparin Anti-Xa Level ABG pO2 ABG HCO3 ABG O2 Saturation ABG Base Excess ABG Hemoglobin Oxyhemoglobin Sodium 133 L Potassium 5.5 H Chloride Carbon Dioxide 16 L BUN 46 H Creatinine 1.4 H Glucose 225 H POC Glucose 239 H 202 H Hemoglobin A1c Calcium 8.2 L Total Creatine Kinase CK-MB (CK-2) CK-MB (CK-2) Rel Index Troponin T Triglycerides LDL Cholesterol Direct 03/28/20 03/28/20 03/28/20 07:39 07:39 08:36 WBC 22.4 H RBC 2.71 L Hgb 7.9 L Hct 24.5 L Lymph % (Auto) [place] % (Auto) [place] # Seg Neutrophils % Seg Neuts % (Manual) 88.0 H Lymphocytes % (Manual) 5.0 L Nucleated RBC % Seg Neutrophils # Seg Neutrophils # Man 19.7 H Lymphocytes # (Manual) 1.1 L Monocytes # (Manual) 1.6 H Eosinophils # (Manual) Heparin Anti-Xa Level ABG pO2 ABG HCO3 ABG O2 Saturation ABG Base Excess ABG Hemoglobin Oxyhemoglobin Sodium 134 L Potassium Chloride Carbon Dioxide 19 L BUN 47 H Creatinine Glucose 240 H POC Glucose 253 H Hemoglobin A1c Calcium 7.8 L Total Creatine Kinase CK-MB (CK-2) CK-MB (CK-2) Rel Index Troponin T Triglycerides LDL Cholesterol Direct 03/28/20 03/28/20 03/28/20 11:54 17:08 21:17 WBC RBC Hgb Hct Lymph % (Auto) [place] % (Auto) [place] # Seg Neutrophils % Seg Neuts % (Manual) Lymphocytes % (Manual) Nucleated RBC % Seg Neutrophils # Seg Neutrophils # Man Lymphocytes # (Manual) Monocytes # (Manual) Eosinophils # (Manual) Heparin Anti-Xa Level ABG pO2 ABG HCO3 ABG O2 Saturation ABG Base Excess ABG Hemoglobin Oxyhemoglobin Sodium Potassium Chloride Carbon Dioxide BUN Creatinine Glucose POC Glucose 306 H 178 H 186 H Hemoglobin A1c Calcium Total Creatine Kinase CK-MB (CK-2) CK-MB (CK-2) Rel Index Troponin T Triglycerides LDL Cholesterol Direct 03/29/20 03/29/20 03/29/20 08:32 12:04 14:19 WBC 21.5 H RBC 2.82 L Hgb 8.4 L Hct 26.1 L Lymph % (Auto) [place] % (Auto) [place] # Seg Neutrophils % Seg Neuts % (Manual) 85.0 H Lymphocytes % (Manual) 11.0 L Nucleated RBC % 3.0 H Seg Neutrophils # Seg Neutrophils # Man 18.3 H Lymphocytes # (Manual) Monocytes # (Manual) Eosinophils # (Manual) 0.6 H Heparin Anti-Xa Level ABG pO2 ABG HCO3 ABG O2 Saturation ABG Base Excess ABG Hemoglobin Oxyhemoglobin Sodium Potassium Chloride Carbon Dioxide BUN Creatinine Glucose POC Glucose 110 H 263 H Hemoglobin A1c Calcium Total Creatine Kinase CK-MB (CK-2) CK-MB (CK-2) Rel Index Troponin T Triglycerides LDL Cholesterol Direct 03/29/20 03/29/20 03/30/20 16:17 22:57 11:00 WBC RBC Hgb Hct Lymph % (Auto) [place] % (Auto) [place] # Seg Neutrophils % Seg Neuts % (Manual) Lymphocytes % (Manual) Nucleated RBC % Seg Neutrophils # Seg Neutrophils # Man Lymphocytes # (Manual) Monocytes # (Manual) Eosinophils # (Manual) Heparin Anti-Xa Level ABG pO2 ABG HCO3 ABG O2 Saturation ABG Base Excess ABG Hemoglobin Oxyhemoglobin Sodium Potassium Chloride Carbon Dioxide BUN Creatinine Glucose POC Glucose 109 H 194 H 129 H Hemoglobin A1c Calcium Total Creatine Kinase CK-MB (CK-2) CK-MB (CK-2) Rel Index Troponin T Triglycerides LDL Cholesterol Direct 08/15/20 08/15/20 08/16/20 15:16 21:54 04:27 WBC 15.8 H RBC 2.62 L Hgb 7.7 L Hct 24.1 L Lymph % (Auto) 9.4 L [place] % (Auto) [place] # Seg Neutrophils % 84.4 H Seg Neuts % (Manual) Lymphocytes % (Manual) Nucleated RBC % Seg Neutrophils # 13.3 H Seg Neutrophils # Man Lymphocytes # (Manual) Monocytes # (Manual) Eosinophils # (Manual) Heparin Anti-Xa Level ABG pO2 ABG HCO3 ABG O2 Saturation ABG Base Excess ABG Hemoglobin Oxyhemoglobin Sodium Potassium Chloride Carbon Dioxide BUN Creatinine Glucose POC Glucose 115 H 166 H Hemoglobin A1c Calcium Total Creatine Kinase CK-MB (CK-2) CK-MB (CK-2) Rel Index Troponin T Triglycerides LDL Cholesterol Direct 03/31/20 03/31/20 03/31/20 04:27 07:37 11:46 WBC RBC Hgb Hct Lymph % (Auto) [place] % (Auto) [place] # Seg Neutrophils % Seg Neuts % (Manual) Lymphocytes % (Manual) Nucleated RBC % Seg Neutrophils # Seg Neutrophils # Man Lymphocytes # (Manual) Monocytes # (Manual) Eosinophils # (Manual) Heparin Anti-Xa Level ABG pO2 ABG HCO3 ABG O2 Saturation ABG Base Excess ABG Hemoglobin Oxyhemoglobin Sodium 133 L Potassium Chloride 96.6 L Carbon Dioxide 18 L BUN 75 H Creatinine 2.5 H D Glucose 129 H POC Glucose 156 H 224 H Hemoglobin A1c Calcium 8.0 L Total Creatine Kinase CK-MB (CK-2) CK-MB (CK-2) Rel Index Troponin T Triglycerides LDL Cholesterol Direct 04/01/20 04/01/20 04/01/20 08:34 10:52 10:52 WBC 12.9 H RBC 2.75 L Hgb 8.2 L Hct 24.8 L Lymph % (Auto) 10.6 L [place] % (Auto) [place] # Seg Neutrophils % 83.7 H Seg Neuts % (Manual) Lymphocytes % (Manual) Nucleated RBC % Seg Neutrophils # 10.8 H Seg Neutrophils # Man Lymphocytes # (Manual) Monocytes # (Manual) Eosinophils # (Manual) Heparin Anti-Xa Level ABG pO2 ABG HCO3 ABG O2 Saturation ABG Base Excess ABG Hemoglobin Oxyhemoglobin Sodium 131 L Potassium Chloride 96.1 L Carbon Dioxide 17 L BUN 77 H Creatinine 2.3 H Glucose 205 H POC Glucose 110 H Hemoglobin A1c Calcium 7.9 L Total Creatine Kinase CK-MB (CK-2) CK-MB (CK-2) Rel Index Troponin T Triglycerides LDL Cholesterol Direct 04/01/20 12:15 WBC RBC Hgb Hct Lymph % (Auto) [place] % (Auto) [place] # Seg Neutrophils % Seg Neuts % (Manual) Lymphocytes % (Manual) Nucleated RBC % Seg Neutrophils # Seg Neutrophils # Man Lymphocytes # (Manual) Monocytes # (Manual) Eosinophils # (Manual) Heparin Anti-Xa Level ABG pO2 ABG HCO3 ABG O2 Saturation ABG Base Excess ABG Hemoglobin Oxyhemoglobin Sodium Potassium Chloride Carbon Dioxide BUN Creatinine Glucose POC Glucose 201 H Hemoglobin A1c Calcium Total Creatine Kinase CK-MB (CK-2) CK-MB (CK-2) Rel Index Troponin T Triglycerides LDL Cholesterol Direct Allied health notes reviewed: nursing
[2020-04-01] MEDS: INSULIN GLARGINE 100 UNITS/ML SUB-Q SCH (22:02)
[2020-04-02] MEDS: SODIUM CHLORIDE 0.9% 1000 ML 1,000 ML IV SCH (04:24)
[2020-04-02] MEDS: HYDROcodone/ACETAMINOPHEN 5-325 MG TAB PO PRN ×2 (05:33→09:22)
[2020-04-02] MEDS: guaiFENesin DM 200/20 MG ORAL LIQD 10 ML PO PRN (05:34)
[2020-04-02 06:18] LABS: Basophils # (Auto) 0.1 K/mm3 (0.0-0.1); Basophils % (Auto) 0.6 % (0.0-1.8); Eosinophils # (Auto) 0.2 K/mm3 (0.0-0.4); Hematocrit 25.7 % (35.5-45.6); Hemoglobin 8.2 gm/dl (11.8-15.2); Lymphocytes # (Auto) 2.3 K/mm3 (1.2-5.4); Lymphocytes % (Auto) 14.8 % (13.4-35.0); Mean Corpuscular HGB Conc 32 % (32-34); Mean Corpuscular Volume 92 fl (84-94); Monocytes # (Auto) 0.9 K/mm3 (0.0-0.8); Monocytes % (Auto) 5.9 % (0.0-7.3); Platelet Count 418 K/mm3 (140-440); Red Blood Count 2.81 M/mm3 (3.65-5.03); Red Cell Distribution Width 14.9 % (13.2-15.2)
[2020-04-02 06:36] LABS: Albumin 2.2 g/dL (3.9-5)
[2020-04-02] MEDS: BUDESONIDE 0.5 MG/2 ML NEBU IH SCH ×2 (08:14→21:51)
[2020-04-02] MEDS: ARFORMOTEROL 15 MCG/2 ML NEBU IH SCH ×2 (08:14→21:51)
[2020-04-02] MEDS: [UNRECOGNIZED DRUG - REMARK] SUB-Q SCH ×4 (09:11→22:40)
[2020-04-02] MEDS: APIXABAN 5 MG TAB PO SCH ×2 (09:21→22:40)
[2020-04-02] MEDS: PREGABALIN 75 MG CAP PO SCH ×2 (09:21→22:41)
[2020-04-02] MEDS: PANTOPRAZOLE 40 MG TAB PO SCH ×2 (09:21→22:41)
[2020-04-02] MEDS: CLOPIDOGREL 75 MG TAB PO SCH (09:21)
[2020-04-02] MEDS: INSULIN LISPRO 100 UNIT/ML VIAL 3 mL SUB-Q SCH ×3 (10:04→18:45)
[2020-04-02] MEDS: ONDANSETRON 4 MG/2 ML INJ IV PRN (10:04)
--- NOTE | 2020-04-02 10:18 | Progress Note ---
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 Patient Obese. Patient presently on room air and O2 saturation running 98%. Patient says no cough to day. Chest xray 03/26/20 reported Stable cardiomegaly. New right lower lobe infiltrate or congestive changes. ABG FIO2 35%. ABG pH 7.405 pH Units (7.350-7.450) 03/20/20 04:35 ABG pCO2 40.3 mm Hg 03/20/20 04:35 ABG pO2 68.3 mm Hg (80.0-90.0) L 03/20/20 04:35 ABG O2 Saturation 94.3 % (95.0-99.0) L 03/20/20 04:35 Patient afebrile and has leukocytosis Patient is on I/V Zosyn. Patient is on Apixaban. Patient is on Protonix for GI prophylaxis. Recommend incentive spirometry. Patient is on Brovanna/Budesonide aerosol treatments. In addition recommend albuterol/atrovent aerosol treatments q 6 hours PRN for shortness of breath. Robitussin DM PRN for cough. Continue physical therapy. 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 (2) Cardiomyopathy Current Visit: Yes Status: Acute Plan to address problem: Management as per primary care and cardiology. (3) Elevated troponin Current Visit: Yes Status: Acute Plan to address problem: Management as per primary care and cardiology. (4) Hx of two vessel coronary artery bypass graft Current Visit: Yes Status: Acute Plan to address problem: Management as per cardiology. (5) NSTEMI (non-ST elevated myocardial infarction) Current Visit: Yes Status: Acute Plan to address problem: Management as per cardiology. (6) HTN (hypertension) Current Visit: Yes Status: Chronic Plan to address problem: Management as per primary care. (7) History of CVA (cerebrovascular accident) Current Visit: Yes Status: Chronic Plan to address problem: management as per primary care. (8) Smoker Current Visit: Yes Status: Chronic Plan to address problem: Counseled to stop smoking. 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 Patient Obese. Patient presently on room air and O2 saturation running 98%. Patient says no cough to day. Chest xray 03/26/20 reported Stable cardiomegaly. New right lower lobe infiltrate or congestive changes. ABG FIO2 35%. ABG pH 7.405 pH Units (7.350-7.450) 03/20/20 04:35 ABG pCO2 40.3 mm Hg 03/20/20 04:35 ABG pO2 68.3 mm Hg (80.0-90.0) L 03/20/20 04:35 ABG O2 Saturation 94.3 % (95.0-99.0) L 03/20/20 04:35 Patient afebrile and has leukocytosis Patient is on I/V Zosyn. Patient is on Apixaban. Patient is on Protonix for GI prophylaxis. Recommend incentive spirometry. Patient is on Brovanna/Budesonide aerosol treatments. In addition recommend albuterol/atrovent aerosol treatments q 6 hours PRN for shortness of breath. Robitussin DM PRN for cough. Continue physical therapy. Objective Vital Signs - 12hr 04/01/20 04/01/20 04/02/20 22:43 23:34 03:34 Temperature 96.7 F L 97.7 F Pulse Rate 81 76 73 Pulse Rate [ Anterior Bilateral Throughout] Respiratory 15 16 16 Rate Respiratory Rate [Anterior Bilateral Throughout] Blood Pressure 101/74 104/76 O2 Sat by Pulse 97 92 98 Oximetry 04/02/20 04/02/20 08:15 08:16 Temperature Pulse Rate Pulse Rate [ 71 Anterior Bilateral Throughout] Respiratory Rate Respiratory 20 Rate [Anterior Bilateral Throughout] Blood Pressure O2 Sat by Pulse 98 Oximetry Constitutional: no acute distress, alert, other (middle aged obese male with normal breathing.) Eyes: non-icteric ENT: oropharynx moist Neck: supple, no lymphadenopathy, no JVD Effort: mildly labored Ascultation: Bilateral: diminished breath sounds Percussion: Bilateral: not dull Cardiovascular: regular rate and rhythm Gastrointestinal: normoactive bowel sounds, soft, non-tender, non-distended (protuberant) Integumentary: rash Extremities: cool, edema, other (left BKA with clean dressing) Neurologic: normal mental status, non-focal exam, pupils equal and round, motor strength normal and Psychiatric: mood appropriate, affect normal CBC and BMP: 04/02/20 05:44 04/02/20 05:44 ABG, PT/INR, D-dimer: ABG ABG pH 7.405 pH Units (7.350-7.450) 03/20/20 04:35 ABG pCO2 40.3 mm Hg 03/20/20 04:35 ABG pO2 68.3 mm Hg (80.0-90.0) L 03/20/20 04:35 ABG O2 Saturation 94.3 % (95.0-99.0) L 03/20/20 04:35 PT/INR, D-dimer PT 12.7 Sec. (12.2-14.9) 03/19/20 08:08 INR 0.94 (0.87-1.13) 03/19/20 08:08 Abnormal lab findings: Abnormal Labs 03/18/20 03/18/20 03/18/20 18:28 18:28 20:56 WBC 12.3 H RBC Hgb Hct Lymph % (Auto) 11.0 L [place] % (Auto) 9.8 H [place] # 1.2 H Seg Neutrophils % 78.4 H Seg Neuts % (Manual) Lymphocytes % (Manual) Nucleated RBC % Seg Neutrophils # 9.6 H Seg Neutrophils # Man Lymphocytes # (Manual) Monocytes # (Manual) Eosinophils # (Manual) Heparin Anti-Xa Level ABG pO2 ABG HCO3 ABG O2 Saturation ABG Base Excess ABG Hemoglobin Oxyhemoglobin Sodium 132 L Potassium Chloride 91.9 L Carbon Dioxide 20 L BUN Creatinine 1.4 H Glucose 406 H POC Glucose Hemoglobin A1c Calcium AST ALT Alkaline Phosphatase Total Creatine Kinase 2727 H 2492 H CK-MB (CK-2) 135.9 H 107.2 H CK-MB (CK-2) Rel Index 4.3 H Troponin T 5.110 H* 3.960 H* D Total Protein Albumin Triglycerides 188 H LDL Cholesterol Direct 141 H 03/18/20 03/19/20 03/19/20 22:21 01:57 08:08 WBC RBC Hgb Hct Lymph % (Auto) [place] % (Auto) [place] # Seg Neutrophils % Seg Neuts % (Manual) Lymphocytes % (Manual) Nucleated RBC % Seg Neutrophils # Seg Neutrophils # Man Lymphocytes # (Manual) Monocytes # (Manual) Eosinophils # (Manual) Heparin Anti-Xa Level ABG pO2 ABG HCO3 ABG O2 Saturation ABG Base Excess ABG Hemoglobin Oxyhemoglobin Sodium Potassium Chloride Carbon Dioxide BUN Creatinine Glucose POC Glucose 317 H Hemoglobin A1c 11.0 H Calcium AST ALT Alkaline Phosphatase Total Creatine Kinase 7255 H CK-MB (CK-2) 79.3 H CK-MB (CK-2) Rel Index Troponin T 5.540 H* D Total Protein Albumin Triglycerides LDL Cholesterol Direct 03/19/20 03/19/20 03/19/20 08:08 08:08 08:08 WBC 13.3 H RBC Hgb Hct Lymph % (Auto) 10.7 L [place] % (Auto) 8.5 H [place] # 1.1 H Seg Neutrophils % 80.0 H Seg Neuts % (Manual) Lymphocytes % (Manual) Nucleated RBC % Seg Neutrophils # 10.6 H Seg Neutrophils # Man Lymphocytes # (Manual) Monocytes # (Manual) Eosinophils # (Manual) Heparin Anti-Xa Level 0.10 L ABG pO2 ABG HCO3 ABG O2 Saturation ABG Base Excess ABG Hemoglobin Oxyhemoglobin Sodium 133 L Potassium 5.1 H Chloride Carbon Dioxide 17 L BUN 23 H Creatinine Glucose 313 H POC Glucose Hemoglobin A1c Calcium AST ALT Alkaline Phosphatase Total Creatine Kinase CK-MB (CK-2) CK-MB (CK-2) Rel Index Troponin T Total Protein Albumin Triglycerides LDL Cholesterol Direct 03/19/20 03/19/20 03/19/20 15:40 18:23 21:32 WBC RBC Hgb Hct Lymph % (Auto) [place] % (Auto) [place] # Seg Neutrophils % Seg Neuts % (Manual) Lymphocytes % (Manual) Nucleated RBC % Seg Neutrophils # Seg Neutrophils # Man Lymphocytes # (Manual) Monocytes # (Manual) Eosinophils # (Manual) Heparin Anti-Xa Level < 0.10 L ABG pO2 ABG HCO3 18.3 L ABG O2 Saturation ABG Base Excess -5.4 L ABG Hemoglobin 12.2 L Oxyhemoglobin 94.6 L Sodium Potassium Chloride Carbon Dioxide BUN Creatinine Glucose POC Glucose 348 H Hemoglobin A1c Calcium AST ALT Alkaline Phosphatase Total Creatine Kinase CK-MB (CK-2) CK-MB (CK-2) Rel Index Troponin T Total Protein Albumin Triglycerides LDL Cholesterol Direct 03/20/20 03/20/20 03/20/20 04:35 05:12 05:12 WBC 11.1 H RBC 3.63 L Hgb 11.0 L Hct 32.7 L D Lymph % (Auto) [place] % (Auto) 8.1 H [place] # 0.9 H Seg Neutrophils % 75.8 H Seg Neuts % (Manual) Lymphocytes % (Manual) Nucleated RBC % Seg Neutrophils # 8.4 H Seg Neutrophils # Man Lymphocytes # (Manual) Monocytes # (Manual) Eosinophils # (Manual) Heparin Anti-Xa Level 0.28 L ABG pO2 68.3 L ABG HCO3 ABG O2 Saturation 94.3 L ABG Base Excess ABG Hemoglobin 7.1 L Oxyhemoglobin 92.3 L Sodium Potassium Chloride Carbon Dioxide BUN Creatinine Glucose POC Glucose Hemoglobin A1c Calcium AST ALT Alkaline Phosphatase Total Creatine Kinase CK-MB (CK-2) CK-MB (CK-2) Rel Index Troponin T Total Protein Albumin Triglycerides LDL Cholesterol Direct 03/20/20 03/20/20 03/20/20 05:12 07:49 12:15 WBC RBC Hgb Hct Lymph % (Auto) [place] % (Auto) [place] # Seg Neutrophils % Seg Neuts % (Manual) Lymphocytes % (Manual) Nucleated RBC % Seg Neutrophils # Seg Neutrophils # Man Lymphocytes # (Manual) Monocytes # (Manual) Eosinophils # (Manual) Heparin Anti-Xa Level ABG pO2 ABG HCO3 ABG O2 Saturation ABG Base Excess ABG Hemoglobin Oxyhemoglobin Sodium 134 L Potassium Chloride Carbon Dioxide 21 L BUN 23 H Creatinine Glucose 275 H POC Glucose 294 H 357 H Hemoglobin A1c Calcium AST ALT Alkaline Phosphatase Total Creatine Kinase CK-MB (CK-2) CK-MB (CK-2) Rel Index Troponin T 3.200 H* D Total Protein Albumin Triglycerides LDL Cholesterol Direct 03/20/20 03/20/20 03/21/20 17:16 22:08 04:44 WBC RBC Hgb Hct Lymph % (Auto) [place] % (Auto) [place] # Seg Neutrophils % Seg Neuts % (Manual) Lymphocytes % (Manual) Nucleated RBC % Seg Neutrophils # Seg Neutrophils # Man Lymphocytes # (Manual) Monocytes # (Manual) Eosinophils # (Manual) Heparin Anti-Xa Level ABG pO2 ABG HCO3 ABG O2 Saturation ABG Base Excess ABG Hemoglobin Oxyhemoglobin Sodium 136 L Potassium Chloride Carbon Dioxide 18 L BUN 26 H Creatinine Glucose 266 H POC Glucose 327 H 292 H Hemoglobin A1c Calcium 8.1 L AST ALT Alkaline Phosphatase Total Creatine Kinase CK-MB (CK-2) CK-MB (CK-2) Rel Index Troponin T Total Protein Albumin Triglycerides LDL Cholesterol Direct 03/21/20 03/21/20 03/21/20 07:50 12:25 15:53 WBC RBC Hgb Hct Lymph % (Auto) [place] % (Auto) [place] # Seg Neutrophils % Seg Neuts % (Manual) Lymphocytes % (Manual) Nucleated RBC % Seg Neutrophils # Seg Neutrophils # Man Lymphocytes # (Manual) Monocytes # (Manual) Eosinophils # (Manual) Heparin Anti-Xa Level ABG pO2 ABG HCO3 ABG O2 Saturation ABG Base Excess ABG Hemoglobin Oxyhemoglobin Sodium Potassium Chloride Carbon Dioxide BUN Creatinine Glucose POC Glucose 271 H 314 H 436 H Hemoglobin A1c Calcium AST ALT Alkaline Phosphatase Total Creatine Kinase CK-MB (CK-2) CK-MB (CK-2) Rel Index Troponin T Total Protein Albumin Triglycerides LDL Cholesterol Direct 03/21/20 03/21/20 03/22/20 17:44 21:55 04:33 WBC RBC Hgb 10.0 L Hct 29.4 L Lymph % (Auto) [place] % (Auto) [place] # Seg Neutrophils % Seg Neuts % (Manual) Lymphocytes % (Manual) Nucleated RBC % Seg Neutrophils # Seg Neutrophils # Man Lymphocytes # (Manual) Monocytes # (Manual) Eosinophils # (Manual) Heparin Anti-Xa Level ABG pO2 ABG HCO3 ABG O2 Saturation ABG Base Excess ABG Hemoglobin Oxyhemoglobin Sodium Potassium Chloride Carbon Dioxide BUN Creatinine Glucose POC Glucose 362 H 329 H Hemoglobin A1c Calcium AST ALT Alkaline Phosphatase Total Creatine Kinase CK-MB (CK-2) CK-MB (CK-2) Rel Index Troponin T Total Protein Albumin Triglycerides LDL Cholesterol Direct 03/22/20 03/22/20 03/22/20 08:57 14:12 19:57 WBC RBC Hgb Hct Lymph % (Auto) [place] % (Auto) [place] # Seg Neutrophils % Seg Neuts % (Manual) Lymphocytes % (Manual) Nucleated RBC % Seg Neutrophils # Seg Neutrophils # Man Lymphocytes # (Manual) Monocytes # (Manual) Eosinophils # (Manual) Heparin Anti-Xa Level ABG pO2 ABG HCO3 ABG O2 Saturation ABG Base Excess ABG Hemoglobin Oxyhemoglobin Sodium Potassium Chloride Carbon Dioxide BUN Creatinine Glucose POC Glucose 284 H 319 H 356 H Hemoglobin A1c Calcium AST ALT Alkaline Phosphatase Total Creatine Kinase CK-MB (CK-2) CK-MB (CK-2) Rel Index Troponin T Total Protein Albumin Triglycerides LDL Cholesterol Direct 03/22/20 03/23/20 03/23/20 21:44 08:18 12:46 WBC RBC Hgb Hct Lymph % (Auto) [place] % (Auto) [place] # Seg Neutrophils % Seg Neuts % (Manual) Lymphocytes % (Manual) Nucleated RBC % Seg Neutrophils # Seg Neutrophils # Man Lymphocytes # (Manual) Monocytes # (Manual) Eosinophils # (Manual) Heparin Anti-Xa Level ABG pO2 ABG HCO3 ABG O2 Saturation ABG Base Excess ABG Hemoglobin Oxyhemoglobin Sodium Potassium Chloride Carbon Dioxide BUN Creatinine Glucose POC Glucose 336 H 215 H 262 H Hemoglobin A1c Calcium AST ALT Alkaline Phosphatase Total Creatine Kinase CK-MB (CK-2) CK-MB (CK-2) Rel Index Troponin T Total Protein Albumin Triglycerides LDL Cholesterol Direct 03/23/20 03/23/20 03/24/20 15:56 22:05 02:35 WBC RBC Hgb 9.0 L Hct 25.8 L Lymph % (Auto) [place] % (Auto) [place] # Seg Neutrophils % Seg Neuts % (Manual) Lymphocytes % (Manual) Nucleated RBC % Seg Neutrophils # Seg Neutrophils # Man Lymphocytes # (Manual) Monocytes # (Manual) Eosinophils # (Manual) Heparin Anti-Xa Level ABG pO2 ABG HCO3 ABG O2 Saturation ABG Base Excess ABG Hemoglobin Oxyhemoglobin Sodium Potassium Chloride Carbon Dioxide BUN Creatinine Glucose POC Glucose 246 H 322 H Hemoglobin A1c Calcium AST ALT Alkaline Phosphatase Total Creatine Kinase CK-MB (CK-2) CK-MB (CK-2) Rel Index Troponin T Total Protein Albumin Triglycerides LDL Cholesterol Direct 03/24/20 03/24/20 03/24/20 07:38 11:45 16:02 WBC RBC Hgb Hct Lymph % (Auto) [place] % (Auto) [place] # Seg Neutrophils % Seg Neuts % (Manual) Lymphocytes % (Manual) Nucleated RBC % Seg Neutrophils # Seg Neutrophils # Man Lymphocytes # (Manual) Monocytes # (Manual) Eosinophils # (Manual) Heparin Anti-Xa Level ABG pO2 ABG HCO3 ABG O2 Saturation ABG Base Excess ABG Hemoglobin Oxyhemoglobin Sodium Potassium Chloride Carbon Dioxide BUN Creatinine Glucose POC Glucose 289 H 257 H 150 H Hemoglobin A1c Calcium AST ALT Alkaline Phosphatase Total Creatine Kinase CK-MB (CK-2) CK-MB (CK-2) Rel Index Troponin T Total Protein Albumin Triglycerides LDL Cholesterol Direct 03/24/20 03/25/20 03/25/20 21:24 04:06 07:39 WBC RBC Hgb Hct Lymph % (Auto) [place] % (Auto) [place] # Seg Neutrophils % Seg Neuts % (Manual) Lymphocytes % (Manual) Nucleated RBC % Seg Neutrophils # Seg Neutrophils # Man Lymphocytes # (Manual) Monocytes # (Manual) Eosinophils # (Manual) Heparin Anti-Xa Level 0.10 L ABG pO2 ABG HCO3 ABG O2 Saturation ABG Base Excess ABG Hemoglobin Oxyhemoglobin Sodium Potassium Chloride Carbon Dioxide BUN Creatinine Glucose POC Glucose 228 H 332 H Hemoglobin A1c Calcium AST ALT Alkaline Phosphatase Total Creatine Kinase CK-MB (CK-2) CK-MB (CK-2) Rel Index Troponin T Total Protein Albumin Triglycerides LDL Cholesterol Direct 03/25/20 03/25/20 03/25/20 08:13 09:30 11:59 WBC 13.1 H RBC 2.82 L Hgb 8.5 L Hct 26.1 L Lymph % (Auto) [place] % (Auto) [place] # Seg Neutrophils % Seg Neuts % (Manual) Lymphocytes % (Manual) Nucleated RBC % Seg Neutrophils # Seg Neutrophils # Man Lymphocytes # (Manual) Monocytes # (Manual) Eosinophils # (Manual) Heparin Anti-Xa Level ABG pO2 ABG HCO3 ABG O2 Saturation ABG Base Excess ABG Hemoglobin Oxyhemoglobin Sodium 131 L Potassium 5.3 H Chloride Carbon Dioxide 20 L BUN 39 H Creatinine 1.4 H Glucose 313 H POC Glucose 273 H Hemoglobin A1c Calcium 8.1 L AST ALT Alkaline Phosphatase Total Creatine Kinase CK-MB (CK-2) CK-MB (CK-2) Rel Index Troponin T Total Protein Albumin Triglycerides LDL Cholesterol Direct 03/25/20 03/25/20 03/25/20 13:54 15:58 18:21 WBC RBC Hgb Hct Lymph % (Auto) [place] % (Auto) [place] # Seg Neutrophils % Seg Neuts % (Manual) Lymphocytes % (Manual) Nucleated RBC % Seg Neutrophils # Seg Neutrophils # Man Lymphocytes # (Manual) Monocytes # (Manual) Eosinophils # (Manual) Heparin Anti-Xa Level ABG pO2 ABG HCO3 ABG O2 Saturation ABG Base Excess ABG Hemoglobin Oxyhemoglobin Sodium Potassium Chloride Carbon Dioxide BUN Creatinine Glucose POC Glucose 246 H 235 H 185 H Hemoglobin A1c Calcium AST ALT Alkaline Phosphatase Total Creatine Kinase CK-MB (CK-2) CK-MB (CK-2) Rel Index Troponin T Total Protein Albumin Triglycerides LDL Cholesterol Direct 03/25/20 03/26/2020 20:45 05:15 06:59 WBC 17.4 H 15.6 H RBC 3.05 L 3.05 L Hgb 9.1 L 9.2 L Hct 28.2 L 27.9 L Lymph % (Auto) 8.9 L 8.9 L [place] % (Auto) [place] # 1.0 H Seg Neutrophils % 84.4 H 84.8 H Seg Neuts % (Manual) Lymphocytes % (Manual) Nucleated RBC % Seg Neutrophils # 14.7 H 13.2 H Seg Neutrophils # Man Lymphocytes # (Manual) Monocytes # (Manual) Eosinophils # (Manual) Heparin Anti-Xa Level ABG pO2 ABG HCO3 ABG O2 Saturation ABG Base Excess ABG Hemoglobin Oxyhemoglobin Sodium Potassium Chloride Carbon Dioxide BUN Creatinine Glucose POC Glucose 178 H Hemoglobin A1c Calcium AST ALT Alkaline Phosphatase Total Creatine Kinase CK-MB (CK-2) CK-MB (CK-2) Rel Index Troponin T Total Protein Albumin Triglycerides LDL Cholesterol Direct 03/26/20 03/26/20 03/26/20 06:59 07:43 11:56 WBC RBC Hgb Hct Lymph % (Auto) [place] % (Auto) [place] # Seg Neutrophils % Seg Neuts % (Manual) Lymphocytes % (Manual) Nucleated RBC % Seg Neutrophils # Seg Neutrophils # Man Lymphocytes # (Manual) Monocytes # (Manual) Eosinophils # (Manual) Heparin Anti-Xa Level ABG pO2 ABG HCO3 ABG O2 Saturation ABG Base Excess ABG Hemoglobin Oxyhemoglobin Sodium 131 L Potassium 5.8 H Chloride Carbon Dioxide 16 L BUN 42 H Creatinine 1.4 H Glucose 163 H POC Glucose 170 H 198 H Hemoglobin A1c Calcium 8.0 L AST ALT Alkaline Phosphatase Total Creatine Kinase CK-MB (CK-2) CK-MB (CK-2) Rel Index Troponin T Total Protein Albumin Triglycerides LDL Cholesterol Direct 03/26/20 03/26/20 03/26/20 13:58 16:16 21:00 WBC RBC Hgb Hct Lymph % (Auto) [place] % (Auto) [place] # Seg Neutrophils % Seg Neuts % (Manual) Lymphocytes % (Manual) Nucleated RBC % Seg Neutrophils # Seg Neutrophils # Man Lymphocytes # (Manual) Monocytes # (Manual) Eosinophils # (Manual) Heparin Anti-Xa Level ABG pO2 ABG HCO3 ABG O2 Saturation ABG Base Excess ABG Hemoglobin Oxyhemoglobin Sodium 128 L Potassium 6.0 H Chloride Carbon Dioxide 15 L BUN 45 H Creatinine 1.4 H Glucose 190 H POC Glucose 184 H 192 H Hemoglobin A1c Calcium 8.2 L AST ALT Alkaline Phosphatase Total Creatine Kinase CK-MB (CK-2) CK-MB (CK-2) Rel Index Troponin T Total Protein Albumin Triglycerides LDL Cholesterol Direct 03/27/20 03/27/20 03/27/20 08:32 11:51 14:39 WBC 22.9 H RBC 2.68 L Hgb 7.9 L Hct 24.7 L Lymph % (Auto) [place] % (Auto) [place] # Seg Neutrophils % Seg Neuts % (Manual) Lymphocytes % (Manual) Nucleated RBC % Seg Neutrophils # Seg Neutrophils # Man Lymphocytes # (Manual) Monocytes # (Manual) Eosinophils # (Manual) Heparin Anti-Xa Level ABG pO2 ABG HCO3 ABG O2 Saturation ABG Base Excess ABG Hemoglobin Oxyhemoglobin Sodium Potassium Chloride Carbon Dioxide BUN Creatinine Glucose POC Glucose 233 H 252 H Hemoglobin A1c Calcium AST ALT Alkaline Phosphatase Total Creatine Kinase CK-MB (CK-2) CK-MB (CK-2) Rel Index Troponin T Total Protein Albumin Triglycerides LDL Cholesterol Direct 03/27/20 03/27/20 03/27/20 14:39 15:19 21:35 WBC RBC Hgb Hct Lymph % (Auto) [place] % (Auto) [place] # Seg Neutrophils % Seg Neuts % (Manual) Lymphocytes % (Manual) Nucleated RBC % Seg Neutrophils # Seg Neutrophils # Man Lymphocytes # (Manual) Monocytes # (Manual) Eosinophils # (Manual) Heparin Anti-Xa Level ABG pO2 ABG HCO3 ABG O2 Saturation ABG Base Excess ABG Hemoglobin Oxyhemoglobin Sodium 133 L Potassium 5.5 H Chloride Carbon Dioxide 16 L BUN 46 H Creatinine 1.4 H Glucose 225 H POC Glucose 239 H 202 H Hemoglobin A1c Calcium 8.2 L AST ALT Alkaline Phosphatase Total Creatine Kinase CK-MB (CK-2) CK-MB (CK-2) Rel Index Troponin T Total Protein Albumin Triglycerides LDL Cholesterol Direct 03/28/20 03/28/20 03/28/20 07:39 07:39 08:36 WBC 22.4 H RBC 2.71 L Hgb 7.9 L Hct 24.5 L Lymph % (Auto) [place] % (Auto) [place] # Seg Neutrophils % Seg Neuts % (Manual) 88.0 H Lymphocytes % (Manual) 5.0 L Nucleated RBC % Seg Neutrophils # Seg Neutrophils # Man 19.7 H Lymphocytes # (Manual) 1.1 L Monocytes # (Manual) 1.6 H Eosinophils # (Manual) Heparin Anti-Xa Level ABG pO2 ABG HCO3 ABG O2 Saturation ABG Base Excess ABG Hemoglobin Oxyhemoglobin Sodium 134 L Potassium Chloride Carbon Dioxide 19 L BUN 47 H Creatinine Glucose 240 H POC Glucose 253 H Hemoglobin A1c Calcium 7.8 L AST ALT Alkaline Phosphatase Total Creatine Kinase CK-MB (CK-2) CK-MB (CK-2) Rel Index Troponin T Total Protein Albumin Triglycerides LDL Cholesterol Direct 03/28/20 03/28/20 03/28/20 11:54 17:08 21:17 WBC RBC Hgb Hct Lymph % (Auto) [place] % (Auto) [place] # Seg Neutrophils % Seg Neuts % (Manual) Lymphocytes % (Manual) Nucleated RBC % Seg Neutrophils # Seg Neutrophils # Man Lymphocytes # (Manual) Monocytes # (Manual) Eosinophils # (Manual) Heparin Anti-Xa Level ABG pO2 ABG HCO3 ABG O2 Saturation ABG Base Excess ABG Hemoglobin Oxyhemoglobin Sodium Potassium Chloride Carbon Dioxide BUN Creatinine Glucose POC Glucose 306 H 178 H 186 H Hemoglobin A1c Calcium AST ALT Alkaline Phosphatase Total Creatine Kinase CK-MB (CK-2) CK-MB (CK-2) Rel Index Troponin T Total Protein Albumin Triglycerides LDL Cholesterol Direct 03/29/20 03/29/20 03/29/20 08:32 12:04 14:19 WBC 21.5 H RBC 2.82 L Hgb 8.4 L Hct 26.1 L Lymph % (Auto) [place] % (Auto) [place] # Seg Neutrophils % Seg Neuts % (Manual) 85.0 H Lymphocytes % (Manual) 11.0 L Nucleated RBC % 3.0 H Seg Neutrophils # Seg Neutrophils # Man 18.3 H Lymphocytes # (Manual) Monocytes # (Manual) Eosinophils # (Manual) 0.6 H Heparin Anti-Xa Level ABG pO2 ABG HCO3 ABG O2 Saturation ABG Base Excess ABG Hemoglobin Oxyhemoglobin Sodium Potassium Chloride Carbon Dioxide BUN Creatinine Glucose POC Glucose 110 H 263 H Hemoglobin A1c Calcium AST ALT Alkaline Phosphatase Total Creatine Kinase CK-MB (CK-2) CK-MB (CK-2) Rel Index Troponin T Total Protein Albumin Triglycerides LDL Cholesterol Direct 03/29/20 03/29/20 03/30/20 16:17 22:57 11:00 WBC RBC Hgb Hct Lymph % (Auto) [place] % (Auto) [place] # Seg Neutrophils % Seg Neuts % (Manual) Lymphocytes % (Manual) Nucleated RBC % Seg Neutrophils # Seg Neutrophils # Man Lymphocytes # (Manual) Monocytes # (Manual) Eosinophils # (Manual) Heparin Anti-Xa Level ABG pO2 ABG HCO3 ABG O2 Saturation ABG Base Excess ABG Hemoglobin Oxyhemoglobin Sodium Potassium Chloride Carbon Dioxide BUN Creatinine Glucose POC Glucose 109 H 194 H 129 H Hemoglobin A1c Calcium AST ALT Alkaline Phosphatase Total Creatine Kinase CK-MB (CK-2) CK-MB (CK-2) Rel Index Troponin T Total Protein Albumin Triglycerides LDL Cholesterol Direct 03/30/20 03/30/20 03/31/20 15:16 21:54 04:27 WBC 15.8 H RBC 2.62 L Hgb 7.7 L Hct 24.1 L Lymph % (Auto) 9.4 L [place] % (Auto) [place] # Seg Neutrophils % 84.4 H Seg Neuts % (Manual) Lymphocytes % (Manual) Nucleated RBC % Seg Neutrophils # 13.3 H Seg Neutrophils # Man Lymphocytes # (Manual) Monocytes # (Manual) Eosinophils # (Manual) Heparin Anti-Xa Level ABG pO2 ABG HCO3 ABG O2 Saturation ABG Base Excess ABG Hemoglobin Oxyhemoglobin Sodium Potassium Chloride Carbon Dioxide BUN Creatinine Glucose POC Glucose 115 H 166 H Hemoglobin A1c Calcium AST ALT Alkaline Phosphatase Total Creatine Kinase CK-MB (CK-2) CK-MB (CK-2) Rel Index Troponin T Total Protein Albumin Triglycerides LDL Cholesterol Direct 03/31/20 03/31/20 03/31/20 04:27 07:37 11:46 WBC RBC Hgb Hct Lymph % (Auto) [place] % (Auto) [place] # Seg Neutrophils % Seg Neuts % (Manual) Lymphocytes % (Manual) Nucleated RBC % Seg Neutrophils # Seg Neutrophils # Man Lymphocytes # (Manual) Monocytes # (Manual) Eosinophils # (Manual) Heparin Anti-Xa Level ABG pO2 ABG HCO3 ABG O2 Saturation ABG Base Excess ABG Hemoglobin Oxyhemoglobin Sodium 133 L Potassium Chloride 96.6 L Carbon Dioxide 18 L BUN 75 H Creatinine 2.5 H D Glucose 129 H POC Glucose 156 H 224 H Hemoglobin A1c Calcium 8.0 L AST ALT Alkaline Phosphatase Total Creatine Kinase CK-MB (CK-2) CK-MB (CK-2) Rel Index Troponin T Total Protein Albumin Triglycerides LDL Cholesterol Direct 04/01/20 04/01/20 04/01/20 08:34 10:52 10:52 WBC 12.9 H RBC 2.75 L Hgb 8.2 L Hct 24.8 L Lymph % (Auto) 10.6 L [place] % (Auto) [place] # Seg Neutrophils % 83.7 H Seg Neuts % (Manual) Lymphocytes % (Manual) Nucleated RBC % Seg Neutrophils # 10.8 H Seg Neutrophils # Man Lymphocytes # (Manual) Monocytes # (Manual) Eosinophils # (Manual) Heparin Anti-Xa Level ABG pO2 ABG HCO3 ABG O2 Saturation ABG Base Excess ABG Hemoglobin Oxyhemoglobin Sodium 131 L Potassium Chloride 96.1 L Carbon Dioxide 17 L BUN 77 H Creatinine 2.3 H Glucose 205 H POC Glucose 110 H Hemoglobin A1c Calcium 7.9 L AST ALT Alkaline Phosphatase Total Creatine Kinase CK-MB (CK-2) CK-MB (CK-2) Rel Index Troponin T Total Protein Albumin Triglycerides LDL Cholesterol Direct 04/01/20 04/01/20 04/01/20 12:15 17:22 20:47 WBC RBC Hgb Hct Lymph % (Auto) [place] % (Auto) [place] # Seg Neutrophils % Seg Neuts % (Manual) Lymphocytes % (Manual) Nucleated RBC % Seg Neutrophils # Seg Neutrophils # Man Lymphocytes # (Manual) Monocytes # (Manual) Eosinophils # (Manual) Heparin Anti-Xa Level ABG pO2 ABG HCO3 ABG O2 Saturation ABG Base Excess ABG Hemoglobin Oxyhemoglobin Sodium Potassium Chloride Carbon Dioxide BUN Creatinine Glucose POC Glucose 201 H 219 H 156 H Hemoglobin A1c Calcium AST ALT Alkaline Phosphatase Total Creatine Kinase CK-MB (CK-2) CK-MB (CK-2) Rel Index Troponin T Total Protein Albumin Triglycerides LDL Cholesterol Direct 04/02/20 04/02/20 05:44 05:44 WBC 15.8 H RBC 2.81 L Hgb 8.2 L Hct 25.7 L Lymph % (Auto) [place] % (Auto) [place] # 0.9 H Seg Neutrophils % 77.7 H Seg Neuts % (Manual) Lymphocytes % (Manual) Nucleated RBC % Seg Neutrophils # 12.3 H Seg Neutrophils # Man Lymphocytes # (Manual) Monocytes # (Manual) Eosinophils # (Manual) Heparin Anti-Xa Level ABG pO2 ABG HCO3 ABG O2 Saturation ABG Base Excess ABG Hemoglobin Oxyhemoglobin Sodium 134 L Potassium Chloride Carbon Dioxide 19 L BUN 76 H Creatinine 2.0 H Glucose POC Glucose Hemoglobin A1c Calcium 8.0 L AST 291 H ALT 169 H Alkaline Phosphatase 256 H Total Creatine Kinase CK-MB (CK-2) CK-MB (CK-2) Rel Index Troponin T Total Protein 6.1 L Albumin 2.2 L Triglycerides LDL Cholesterol Direct Allied health notes reviewed: nursing
[2020-04-02] MEDS: METOPROLOL TARTRATE 50 MG TAB PO SCH ×2 (13:44→22:41)
--- NOTE | 2020-04-02 14:34 | Progress Note ---
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 Closely monitor blood pressures, fluid bolus as needed --Acute kidney injury; vasomotor nephropathy Current Visit: Yes Status: Acute Gentle hydration, monitor renal function Avoid nephrotoxins, nephrology consult if needed --Hyperkalemia; resolved Current Visit: Yes Status: Acute Monitor electrolytes. --Insomnia; Current Visit: Yes Status: Acute Optimal pain medications, sleeping aid Ambien 5 mg nightly --Acute left lower extremity ischemia,s/p Lt BKA Current Visit: Yes Status: Acute 03/19/2020 status post endovascular revascularization. 03/19/2020 s/p left LE, 4 compartment fasciotomy per vascular 03/25/2020 s/p left BKA on --SIRS; without organ dysfunction Current Visit: Yes Status: Acute leukocytosis trending down, continue Zosyn tachycardia, resolved --Non-ST elevation [place] : Current Visit: Yes Status: Acute Patient has history of CABG patient denies any chest pain. Management per cardiology Per cardiology non-STEMI 2 Elevated troponins at the time of admission --Acute systolic CHF; EF 30-35%% Current Visit: Yes Status: Acute Beta-blockers, BIJAN inhibitor, diuretics Improved -- Hyperglycemia due to diabetes mellitus Current Visit: Yes Status: Acute Accu-Chek sliding scale coverage ADA diet Long-acting insulin as needed, X7f---71.0 --Nicotine dependence Current Visit: Yes Status: Acute Smoking cessation nicotine patch as needed --DVT prophylaxis Current Visit: Yes Status: Acute Patient currently on anticoagulation. -- Full code status Current Visit: Yes Status: Acute Patient is on heparin drip Discharge planning issues Disposition ;acute rehab placement, insurance did not approve Planning SNF placement Monitor closely and adjust management as needed Plan of care reviewed with the patient and his nurse 03/19/2020 status post endovascular revascularization. 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 Added Dilaudid IV as needed 04/01; patient has worsening renal function, and drop in H&H, closely monitor transfuse as needed 04/02; insurance did not approve acute rehab, SNF placement is being processed History Interval history: I have seen and examined the patient at the bedside this morning Patient's chart and medications reviewed Patient feels better, No new complaints ,vital signs reviewed Hospitalist Physical - Constitutional Vitals: Temp Pulse Resp BP Pulse Ox 97.1 F L 78 18 112/78 97 04/02/20 11:16 04/02/20 13:44 04/02/20 11:16 04/02/20 13:44 04/02/20 11:16 General appearance: Present: no acute distress, well-nourished, obese (Morbidly) - EENT Eyes: Present: PERRL, EOM intact - Neck Neck: Present: supple, normal ROM - Respiratory Respiratory effort: normal Respiratory: bilateral: diminished, negative: rales, rhonchi, wheezing - Cardiovascular Rhythm: regular Heart Sounds: Present: S1 & S2 - Extremities Extremities: no ischemia, No edema, abnormal (Status post left BKA) - Abdominal General gastrointestinal: soft, non-tender, non-distended, normal bowel sounds - Integumentary Integumentary: Present: clear, warm - Psychiatric Psychiatric: appropriate mood/affect, cooperative HEART Score - HEART Score Troponin: Troponin T 3.200 ng/mL (0.00-0.029) H* D 03/20/20 05:12 Results - Labs CBC & Chem 7: 04/02/20 05:44 04/02/20 05:44 Labs: Laboratory Last Values WBC 15.8 K/mm3 (4.5-11.0) H 04/02/20 05:44 RBC 2.81 M/mm3 (3.65-5.03) L 04/02/20 05:44 Hgb 8.2 gm/dl (11.8-15.2) L 04/02/20 05:44 Hct 25.7 % (35.5-45.6) L 04/02/20 05:44 MCV 92 fl (84-94) 04/02/20 05:44 MCH 29 pg (28-32) 04/02/20 05:44 MCHC 32 % (32-34) 04/02/20 05:44 RDW 14.9 % (13.2-15.2) 04/02/20 05:44 Plt Count 418 K/mm3 (140-440) 04/02/20 05:44 Lymph % (Auto) 14.8 % (13.4-35.0) 04/02/20 05:44 [place] % (Auto) 5.9 % (0.0-7.3) 04/02/20 05:44 Eos % (Auto) 1.0 % (0.0-4.3) 04/02/20 05:44 Baso % (Auto) 0.6 % (0.0-1.8) 04/02/20 05:44 Lymph # 2.3 K/mm3 (1.2-5.4) 04/02/20 05:44 [place] # 0.9 K/mm3 (0.0-0.8) H 04/02/20 05:44 Eos # 0.2 K/mm3 (0.0-0.4) 04/02/20 05:44 Baso # 0.1 K/mm3 (0.0-0.1) 04/02/20 05:44 Add Manual Diff Complete 03/29/20 14:19 Total Counted 100 03/29/20 14:19 Seg Neutrophils % 77.7 % (40.0-70.0) H 04/02/20 05:44 Seg Neuts % (Manual) 85.0 % (40.0-70.0) H 03/29/20 14:19 Band Neutrophils % 0 % 03/29/20 14:19 Lymphocytes % (Manual) 11.0 % (13.4-35.0) L 03/29/20 14:19 Reactive Lymphs % (Man) 0 % 03/29/20 14:19 Monocytes % (Manual) 1.0 % (0.0-7.3) 03/29/20 14:19 Eosinophils % (Manual) 3.0 % (0.0-4.3) 03/29/20 14:19 Basophils % (Manual) 0 % (0.0-1.8) 03/29/20 14:19 Metamyelocytes % 0 % 03/29/20 14:19 Myelocytes % 0 % 03/29/20 14:19 Promyelocytes % 0 % 03/29/20 14:19 Blast Cells % 0 % 03/29/20 14:19 Nucleated RBC % 3.0 % (0.0-0.9) H 03/29/20 14:19 Seg Neutrophils # 12.3 K/mm3 (1.8-7.7) H 04/02/20 05:44 Seg Neutrophils # Man 18.3 K/mm3 (1.8-7.7) H 03/29/20 14:19 Band Neutrophils # 0.0 K/mm3 03/29/20 14:19 Lymphocytes # (Manual) 2.4 K/mm3 (1.2-5.4) 03/29/20 14:19 Abs React Lymphs (Man) 0.0 K/mm3 03/29/20 14:19 Monocytes # (Manual) 0.2 K/mm3 (0.0-0.8) 03/29/20 14:19 Eosinophils # (Manual) 0.6 K/mm3 (0.0-0.4) H 03/29/20 14:19 Basophils # (Manual) 0.0 K/mm3 (0.0-0.1) 03/29/20 14:19 Metamyelocytes # 0.0 K/mm3 03/29/20 14:19 Myelocytes # 0.0 K/mm3 03/29/20 14:19 Promyelocytes # 0.0 K/mm3 03/29/20 14:19 Blast Cells # 0.0 K/mm3 03/29/20 14:19 WBC Morphology Not Reportable 03/29/20 14:19 Hypersegmented Neuts Not Reportable 03/29/20 14:19 Hyposegmented Neuts Not Reportable 03/29/20 14:19 Hypogranular Neuts Not Reportable 03/29/20 14:19 Smudge Cells Not Reportable 03/29/20 14:19 Toxic Granulation Not Reportable 03/29/20 14:19 Toxic Vacuolation Not Reportable 03/29/20 14:19 Dohle Bodies Not Reportable 03/29/20 14:19 Pelger-Huet Anomaly Not Reportable 03/29/20 14:19 Ananya Rods Not Reportable 03/29/20 14:19 Platelet Estimate Consistent w auto 03/29/20 14:19 Clumped Platelets Not Reportable 03/29/20 14:19 Plt Clumps, EDTA Not Reportable 03/29/20 14:19 Large Platelets Not Reportable 03/29/20 14:19 Giant Platelets Not Reportable 03/29/20 14:19 Platelet Satelliting Not Reportable 03/29/20 14:19 Plt Morphology Comment Not Reportable 03/29/20 14:19 RBC Morphology Not Reportable 03/29/20 14:19 Dimorphic RBCs Not Reportable 03/29/20 14:19 Polychromasia Not Reportable 03/29/20 14:19 Hypochromasia Not Reportable 03/29/20 14:19 Poikilocytosis Not Reportable 03/29/20 14:19 Anisocytosis 1+ 03/29/20 14:19 Microcytosis Not Reportable 03/29/20 14:19 Macrocytosis Not Reportable 03/29/20 14:19 Spherocytes Not Reportable 03/29/20 14:19 Pappenheimer Bodies Not Reportable 03/29/20 14:19 Sickle Cells Not Reportable 03/29/20 14:19 Target Cells Not Reportable 03/29/20 14:19 Tear Drop Cells Not Reportable 03/29/20 14:19 Ovalocytes Not Reportable 03/29/20 14:19 Helmet Cells Not Reportable 03/29/20 14:19 Light-[place]arm Loop Bodies Not Reportable 03/29/20 14:19 [place] Rings Not Reportable 03/29/20 14:19 [place] Cells Not Reportable 03/29/20 14:19 Bite Cells Not Reportable 03/29/20 14:19 Crenated Cell Not Reportable 03/29/20 14:19 Elliptocytes Not Reportable 03/29/20 14:19 Acanthocytes (Spur) Not Reportable 03/29/20 14:19 Rouleaux Not Reportable 03/29/20 14:19 Hemoglobin C Crystals Not Reportable 03/29/20 14:19 Schistocytes Not Reportable 03/29/20 14:19 Malaria parasites Not Reportable 03/29/20 14:19 Steven Bodies Not Reportable 03/29/20 14:19 Hem Pathologist Commnt No 03/29/20 14:19 PT 12.7 Sec. (12.2-14.9) 03/19/20 08:08 INR 0.94 (0.87-1.13) 03/19/20 08:08 APTT 27.7 Sec. (24.2-36.6) 03/18/20 18:28 Heparin Anti-Xa Level 0.10 U.I./ml (0.3-0.7) L 03/25/20 04:06 ABG pH 7.405 pH Units (7.350-7.450) 03/20/20 04:35 ABG pCO2 40.3 mm Hg 03/20/20 04:35 ABG pO2 68.3 mm Hg (80.0-90.0) L 03/20/20 04:35 ABG HCO3 24.6 mmol/L (20.0-26.0) 03/20/20 04:35 ABG O2 Saturation 94.3 % (95.0-99.0) L 03/20/20 04:35 ABG O2 Content 9.3 (0.0-44) 03/20/20 04:35 ABG Base Excess -0.1 mmol/L (-2.0-3.0) 03/20/20 04:35 ABG Hemoglobin 7.1 gm/dl (14.0-18.0) L 03/20/20 04:35 ABG Carboxyhemoglobin 1.8 % (0.0-5.0) 03/20/20 04:35 ABG Methemoglobin 0.4 % (0.0-1.5) 03/20/20 04:35 Oxyhemoglobin 92.3 % (95.0-99.0) L 03/20/20 04:35 FiO2 35 % 03/20/20 04:35 Sodium 134 mmol/L (137-145) L 04/02/20 05:44 Potassium 4.6 mmol/L (3.6-5.0) 04/02/20 05:44 Chloride 98.0 mmol/L (98-107) 04/02/20 05:44 Carbon Dioxide 19 mmol/L (22-30) L 04/02/20 05:44 Anion Gap 22 mmol/L 04/02/20 05:44 BUN 76 mg/dL (9-20) H 04/02/20 05:44 Creatinine 2.0 mg/dL (0.8-1.3) H 04/02/20 05:44 Estimated GFR 35 ml/min 04/02/20 05:44 BUN/Creatinine Ratio 38 % 04/02/20 05:44 Glucose 91 mg/dL (75-100) 04/02/20 05:44 POC Glucose 116 (70-105) H 04/02/20 11:32 Hemoglobin A1c 11.0 % (4-6) H 03/18/20 22:21 Calcium 8.0 mg/dL (8.4-10.2) L 04/02/20 05:44 Magnesium 2.20 mg/dL (1.7-2.3) 03/28/20 07:39 Total Bilirubin 0.80 mg/dL (0.1-1.2) 04/02/20 05:44 AST 291 units/L (5-40) H 04/02/20 05:44 ALT 169 units/L (7-56) H 04/02/20 05:44 Alkaline Phosphatase 256 units/L (35-129) H 04/02/20 05:44 Total Creatine Kinase 7255 units/L (55-170) H 03/19/20 08:08 CK-MB (CK-2) 79.3 ng/mL (0.0-4.0) H 03/19/20 08:08 CK-MB (CK-2) Rel Index 1.0 (0-4) 03/19/20 08:08 Troponin T 3.200 ng/mL (0.00-0.029) H* D 03/20/20 05:12 Total Protein 6.1 g/dL (6.3-8.2) L 04/02/20 05:44 Albumin 2.2 g/dL (3.9-5) L 04/02/20 05:44 Albumin/Globulin Ratio 0.6 % 04/02/20 05:44 Triglycerides 188 mg/dL (2-149) H 03/18/20 18:28 Cholesterol 199 mg/dL (50-199) 03/18/20 18:28 LDL Cholesterol Direct 141 mg/dL (50-130) H 03/18/20 18:28 HDL Cholesterol 47 mg/dL (40-59) 03/18/20 18:28 Cholesterol/HDL Ratio 4.23 % 03/18/20 18:28 Blood Type B POSITIVE 03/25/20 11:42 Antibody Screen Negative 03/25/20 11:42 - Diagnostic Impressions Diagnostic Impressions: Echocardiogram 03/19/20 12:49 Transthoracic Echocardiogram Indication: CAD and Abnormal EKG HR: 110 Conclusions *The study is technically limited due to patient body habitus. *The left ventricular chamber size is mildly dilated. *Global left ventricular systolic function is moderate to severely decreased. *The estimated ejection fraction is 30-35%. *The basal inferolateral, and basal inferior wall segments are normal. *The mid inferolateral, mid inferior, apical lateral, and apical inferior wall segments are akinetic. *The left atrial chamber size is normal. Findings Procedure Info: The study is technically limited due to patient body habitus. The study was technically limited due to the patient's inability to lay in the left lateral decubitus position. Left Ventricle: The left ventricular chamber size is mildly dilated. Global left ventricular systolic function is moderate to severely decreased. The estimated ejection fraction is 30-35%. The basal inferolateral, and basal inferior wall segments are normal. The mid inferolateral, mid inferior, apical lateral, and apical inferior wall segments are akinetic. Left Atrium: The left atrial chamber size is normal. Right Ventricle: The right ventricle is not well visualized. Right Atrium: The right atrium is not well visualized. The right atrial cavity size is normal. Aortic Valve: The aortic valve is trileaflet. Mitral Valve: The mitral valve leaflets are moderately thickened. There is mild mitral regurgitation. Tricuspid Valve: The tricuspid valve is not well visualized. There is trace tricuspid regurgitation. Pulmonic Valve: The pulmonic valve is not well visualized. Pericardium: There is no pericardial effusion. Aorta: The aorta appears normal. Venous: The venous system is not well visualized. Contrast: Definity was used to optimize study. Measurements Chambers 2D Name Value Normal Range IVSd (2D) 0.94 cm (0.6 - 1.1) LVPWd (2D) 0.94 cm (0.6 - 1.1) LVIDd (2D) 6.15 cm (3.7 - 5.6) LVIDs (2D) 5.2 cm (2 - 3.8) LV FS (2D) 15.5 % - EF Teichholz (2D) 32.08 % - Ao root diameter (2D) 2.77 cm (2 - 3.7) Volumes/Mass Name Value Normal Range LA ESV SP 4CH (A/L) 73.77 ml - LA ESV SP 2CH (A/L) 66.45 ml - LA ESV BP (A/L) 71.61 ml - LA ESV BP (A/L) index 30.6 ml/m2 - LA ESV SP 4CH (MOD) 72.55 ml - LA ESV SP 2CH (MOD) 65.34 ml - LA ESV BP (MOD) 70.27 ml - LA ESV BP (MOD) index 30.03 ml/m2 - Diastolic/Systolic Function Name Value Normal Range MV E-wave Vmax 0.85 m/sec - MV deceleration time 69.14 msec - MV A-wave Vmax 0.89 m/sec - MV E:A ratio 0.95 ratio - Aortic Valve Name Value Normal Range AV Vmax 0.96 m/sec - AV VTI 11.83 cm - AV peak gradient 3.68 mmHg - AV mean gradient 1.6 mmHg - LVOT diameter 2.19 cm - LVOT Vmax 0.86 m/sec - LVOT VTI 13.33 cm - LVOT peak gradient 2.96 mmHg - LVOT mean gradient 1.48 mmHg - SV LVOT 50.08 ml - DEYA (continuity Vmax) 3.37 cm2 - DEYA (continuity VTI) 4.23 cm2 - Ascending Ao 2.92 cm - Pulmonic Valve/Qp:Qs Name Value Normal Range PV Vmax 1.08 m/sec - PV VTI 15.88 cm - PV peak gradient 4.7 mmHg - PV mean gradient 2.18 mmHg - RVOT Vmax 0.82 m/sec - RVOT VTI 11.48 cm - RVOT peak gradient 2.67 mmHg - [place] BAS Not Seen BA Not Seen BAL Not Seen BAY Normal BI Normal BIS Not Seen MAS Not Seen MA Not Seen MAL Not Seen MIL Akinetic [place] Akinetic MIS Not Seen Not Seen AA Not Seen AL Akinetic AI Akinetic APEX Not Seen Tyson/IV: Voiding Method Urinal IV Catheter Type [Right Peripheral IV Forearm] IV Catheter Type [Right INT / Saline Lock Antecubital] IV Catheter Type [Left Forearm INT / Saline Lock ] IV Catheter Type [Left Upper Peripheral IV arm] IV Catheter Type [Left Peripheral IV Antecubital] Active Medications - Current Medications Current Medications: Generic Name Dose Route Start Last Admin Trade Name Freq PRN Reason Stop Dose Admin Acetaminophen/Hydrocodone [place]art 2 each 03/22/20 17:18 04/02/20 09:22 [place] 5/325 PO 2 each Q4H PRN Administration Pain, Moderate (4-6) Albuterol 2.5 mg 04/01/20 00:03 Proventil IH Q6HRT PRN Shortness Of Breath Apixaban 5 mg 03/26/20 22:00 04/02/20 09:21 Eliquis PO 5 mg Q12HR LOI Administration Protocol Arformoterol Tartrate 15 mcg 03/19/20 20:00 04/02/20 08:14 Brovana Nebu IH 15 mcg Q12HRT LOI Administration Atorvastatin Calcium 40 mg 03/19/20 22:00 04/01/20 23:28 Lipitor PO Not Given QHS LOI Budesonide 0.5 mg 03/19/20 20:00 04/02/20 08:14 Pulmicort IH 0.5 mg Q12HRT LOI Administration Clopidogrel Bisulfate 75 mg 03/19/20 10:00 04/02/20 09:21 Plavix PO 75 mg QDAY LOI Administration Dextrose 50 ml 03/18/20 22:21 D50w (25gm) Syringe IV Q30MIN PRN Hypoglycemia Protocol Diphenhydramine HCl 25 mg 03/19/20 12:44 Benadryl IV Q4H PRN Itching Guaifenesin 10 ml 04/01/20 00:03 04/02/20 05:34 Guaifenesin Dm Syrup PO 10 ml Q4H PRN Administration Cough Hydromorphone/Sodium Chloride 0 mg 03/19/20 13:00 03/30/20 02:09 Dilaudid Talent Sourcer 6mg/30ml IV 1 cart DIRECT LOI Administration Protocol Sodium Chloride 500 mls @ 2 mls/hr 03/28/20 22:00 03/30/20 22:45 Nacl 0.9% 500 Ml IV 2 mls/hr DIRECT LOI Administration Sodium Chloride 1,000 mls @ 75 mls/hr 04/01/20 13:15 04/02/20 04:24 Nacl 0.9% 1000 Ml IV 75 mls/hr DIRECT LOI Administration Piperacillin Sod/Tazobactam Sod 4.5 gm in 100 mls @ 200 mls/hr 04/02/20 14:00 Zosyn/Ns 4.5gm/100ml IV Q8HR LOI Insulin Glargine 25 units 03/22/20 22:00 04/01/20 22:02 Lantus SUB-Q 25 units QHS LOI Administration Insulin Human Lispro 0 unit 03/20/20 16:30 04/02/20 13:38 Humalog SUB-Q Not Given ACHS [facility] Protocol Insulin Human Lispro 8 unit 03/28/20 11:30 04/02/20 13:45 Humalog SUB-Q Not Given AC [facility] Ipratropium [place] 0.5 mg 04/01/20 00:05 Atrovent IH Q6HRT PRN Shortness Of Breath Magnesium Hydroxide 30 ml 03/18/20 22:21 Milk Of Magnesia PO Q4H PRN Constipation Metoprolol Tartrate 50 mg 03/19/20 22:00 04/02/20 13:44 Metoprolol PO 50 mg BID LOI Administration Naloxone HCl 0.1 mg 03/19/20 12:44 Naloxone IV Q2MIN PRN Res Rate </= 8 or 02 SAT < 92% Ondansetron HCl 4 mg 03/18/20 22:21 04/02/20 10:04 Zofran IV 4 mg Q8H PRN Administration Nausea And Vomiting Pantoprazole Sodium 40 mg 03/20/20 10:00 04/02/20 09:21 Protonix PO 40 mg BID LOI Administration Pregabalin 150 mg 03/22/20 22:00 04/02/20 09:21 Pregabalin PO 150 mg BID LOI Administration Sodium Chloride 10 ml 03/19/20 10:00 04/02/20 13:45 Sodium Chloride Flush Syringe 10 Ml IV 10 ml BID LOI Administration Sodium Chloride 10 ml 03/18/20 22:21 03/22/20 19:52 Sodium Chloride Flush Syringe 10 Ml IV 10 ml PRN PRN Administration LINE FLUSH Zolpidem Tartrate 5 mg 03/31/20 19:09 Ambien PO QHS PRN Sleep Nutrition/Malnutrition Assess - Dietary Evaluation Nutrition/Malnutrition Findings: Nutrition Notes Start: 03/19/20 11:59 Freq: Status: Active Protocol: Document 03/28/20 13:11 DAYO (Rec: 03/28/20 13:21 DAYO [id number] [email or web address]) Nutrition Notes Initial or Follow up Assessment Current Diagnosis COPD,Diabetes Other Pertinent Diagnosis (L) LE ischemia s/p (L) BKA, STARR, NSTEMI Current Diet Cardiac/Consistent CHO Labs/Tests Na 134 (likely 136-137) BG 240 BUN 47 Pertinent Medications 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 He says his appetite is " not the best", but he eats. PO intakes vary from 25-100%; he denies need for ONS at this time. He verbalizes a few food preferences. Burn Absent Trauma Absent Current % PO Fair (50-74%) Minimum of two criteria No #1 Nutrition Diagnosis Increased nutrient needs ( specify in comment below) Etiology increased demands of healing As Evidenced by Signs and Symptoms s/p recent BKA Is patient on ventilator? No Is Patient Ambulatory and/or Out of Bed No REE-([facility] [place]-confined to bed) 2529.804 Kcal/Kg value to use for calculation 17 Approximate Energy Requirements Using 2094 kcal/Kg Calculation Used for Recommendations Kcal/kg Additional Notes Pro needs 1-1.2g/kg adjBW (not for amputation): 102-122g/day Fluid needs 1ml/kcal Nutrition Intervention Change Diet Order: Continue current diet order; honor food preferences Goal #1 PO intakes to meet at least 75 % energy and pro needs Goal #2 Healing of surgical site Anticipated Discharge Needs: Heart-healthy/CHO-controlled diet Follow-Up By: 04/02/20 Additional Comments F/U: intakes
[2020-04-02] MEDS: PIPERACIL/TAZOBACTA 4.5/NS 100 4.5 GM/100 ML VIAL IV SCH ×2 (15:49→22:39)
[2020-04-02] MEDS: INSULIN GLARGINE 100 UNITS/ML SUB-Q SCH (22:40)
[2020-04-03] MEDS: PIPERACIL/TAZOBACTA 4.5/NS 100 4.5 GM/100 ML VIAL IV SCH ×3 (06:45→22:27)
[2020-04-03] MEDS: ARFORMOTEROL 15 MCG/2 ML NEBU IH SCH ×2 (07:59→22:02)
[2020-04-03] MEDS: BUDESONIDE 0.5 MG/2 ML NEBU IH SCH ×2 (07:59→22:02)
[2020-04-03] MEDS: METOPROLOL TARTRATE 50 MG TAB PO SCH ×2 (09:55→22:00)
[2020-04-03] MEDS: CLOPIDOGREL 75 MG TAB PO SCH (09:55)
[2020-04-03] MEDS: PREGABALIN 75 MG CAP PO SCH ×2 (09:55→22:31)
[2020-04-03] MEDS: APIXABAN 5 MG TAB PO SCH ×2 (09:56→22:30)
[2020-04-03] MEDS: HYDROcodone/ACETAMINOPHEN 5-325 MG TAB PO PRN (09:56)
[2020-04-03] MEDS: INSULIN LISPRO 100 UNIT/ML VIAL 3 mL SUB-Q SCH ×3 (09:57→18:00)
[2020-04-03] MEDS: [UNRECOGNIZED DRUG - REMARK] SUB-Q SCH ×4 (09:57→22:36)
[2020-04-03] MEDS: PANTOPRAZOLE 40 MG TAB PO SCH ×2 (10:20→22:30)
[2020-04-03] MEDS: SODIUM CHLORIDE 0.9% 1000 ML 1,000 ML IV SCH (13:23)
--- NOTE | 2020-04-03 13:29 | Progress Note ---
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 Patient Obese. Patient presently sleeping on CPAP and O2 saturation running 99%. Chest xray 03/26/20 reported Stable cardiomegaly. New right lower lobe infiltrate or congestive changes. ABG FIO2 35%. ABG pH 7.405 pH Units (7.350-7.450) 03/20/20 04:35 ABG pCO2 40.3 mm Hg 03/20/20 04:35 ABG pO2 68.3 mm Hg (80.0-90.0) L 03/20/20 04:35 ABG O2 Saturation 94.3 % (95.0-99.0) L 03/20/20 04:35 Patient afebrile and has leukocytosis Patient is on I/V Zosyn. Patient is on Apixaban. Patient is on Protonix for GI prophylaxis. Recommend incentive spirometry. Patient is on Brovanna/Budesonide aerosol treatments q 12 hours. In addition recommend albuterol/atrovent aerosol treatments q 6 hours PRN for shortness of breath. Robitussin DM PRN for cough. Continue physical therapy. 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 (2) Cardiomyopathy Current Visit: Yes Status: Acute Plan to address problem: Management as per primary care and cardiology. (3) Elevated troponin Current Visit: Yes Status: Acute Plan to address problem: Management as per primary care and cardiology. (4) Hx of two vessel coronary artery bypass graft Current Visit: Yes Status: Acute Plan to address problem: Management as per cardiology. (5) NSTEMI (non-ST elevated myocardial infarction) Current Visit: Yes Status: Acute Plan to address problem: Management as per cardiology. (6) HTN (hypertension) Current Visit: Yes Status: Chronic Plan to address problem: Management as per primary care. (7) History of CVA (cerebrovascular accident) Current Visit: Yes Status: Chronic Plan to address problem: management as per primary care. (8) Smoker Current Visit: Yes Status: Chronic Plan to address problem: Counseled to stop smoking. 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 Patient Obese. Patient presently sleeping on CPAP and O2 saturation running 99%. Chest xray 03/26/20 reported Stable cardiomegaly. New right lower lobe infiltrate or congestive changes. ABG FIO2 35%. ABG pH 7.405 pH Units (7.350-7.450) 03/20/20 04:35 ABG pCO2 40.3 mm Hg 03/20/20 04:35 ABG pO2 68.3 mm Hg (80.0-90.0) L 03/20/20 04:35 ABG O2 Saturation 94.3 % (95.0-99.0) L 03/20/20 04:35 Patient afebrile and has leukocytosis Patient is on I/V Zosyn. Patient is on Apixaban. Patient is on Protonix for GI prophylaxis. Recommend incentive spirometry. Patient is on Brovanna/Budesonide aerosol treatments q 12 hours. In addition recommend albuterol/atrovent aerosol treatments q 6 hours PRN for shortness of breath. Robitussin DM PRN for cough. Continue physical therapy. Objective Vital Signs - 12hr 04/03/20 04/03/20 04/03/20 05:07 07:58 08:00 Temperature 97.5 F L Pulse Rate 72 72 Pulse Rate [ 73 Anterior Bilateral Throughout] Respiratory 20 18 Rate Respiratory 16 Rate [Anterior Bilateral Throughout] Blood Pressure 104/77 105/79 O2 Sat by Pulse 96 98 Oximetry 04/03/20 04/03/20 08:01 09:55 Temperature Pulse Rate 78 Pulse Rate [ Anterior Bilateral Throughout] Respiratory Rate Respiratory Rate [Anterior Bilateral Throughout] Blood Pressure 105/71 O2 Sat by Pulse 99 Oximetry Constitutional: no acute distress, asleep, other (middle aged obese male sleeping on CPAP at this time.) Eyes: non-icteric ENT: oropharynx moist Neck: supple, no lymphadenopathy, no JVD Effort: mildly labored Ascultation: Bilateral: diminished breath sounds Percussion: Bilateral: not dull Cardiovascular: regular rate and rhythm Gastrointestinal: normoactive bowel sounds, soft, non-tender, non-distended (protuberant) Integumentary: rash Extremities: cool, edema, other (left BKA with clean dressing) Neurologic: normal mental status, non-focal exam, pupils equal and round, motor strength normal and Psychiatric: mood appropriate, affect normal CBC and BMP: 04/02/20 05:44 04/02/20 05:44 ABG, PT/INR, D-dimer: ABG ABG pH 7.405 pH Units (7.350-7.450) 03/20/20 04:35 ABG pCO2 40.3 mm Hg 03/20/20 04:35 ABG pO2 68.3 mm Hg (80.0-90.0) L 03/20/20 04:35 ABG O2 Saturation 94.3 % (95.0-99.0) L 03/20/20 04:35 PT/INR, D-dimer PT 12.7 Sec. (12.2-14.9) 03/19/20 08:08 INR 0.94 (0.87-1.13) 03/19/20 08:08 Abnormal lab findings: Abnormal Labs 03/18/20 03/18/20 03/18/20 18:28 18:28 20:56 WBC 12.3 H RBC Hgb Hct Lymph % (Auto) 11.0 L [place] % (Auto) 9.8 H [place] # 1.2 H Seg Neutrophils % 78.4 H Seg Neuts % (Manual) Lymphocytes % (Manual) Nucleated RBC % Seg Neutrophils # 9.6 H Seg Neutrophils # Man Lymphocytes # (Manual) Monocytes # (Manual) Eosinophils # (Manual) Heparin Anti-Xa Level ABG pO2 ABG HCO3 ABG O2 Saturation ABG Base Excess ABG Hemoglobin Oxyhemoglobin Sodium 132 L Potassium Chloride 91.9 L Carbon Dioxide 20 L BUN Creatinine 1.4 H Glucose 406 H POC Glucose Hemoglobin A1c Calcium AST ALT Alkaline Phosphatase Total Creatine Kinase 2727 H 2492 H CK-MB (CK-2) 135.9 H 107.2 H CK-MB (CK-2) Rel Index 4.3 H Troponin T 5.110 H* 3.960 H* D Total Protein Albumin Triglycerides 188 H LDL Cholesterol Direct 141 H 03/18/20 03/19/20 03/19/20 22:21 01:57 08:08 WBC RBC Hgb Hct Lymph % (Auto) [place] % (Auto) [place] # Seg Neutrophils % Seg Neuts % (Manual) Lymphocytes % (Manual) Nucleated RBC % Seg Neutrophils # Seg Neutrophils # Man Lymphocytes # (Manual) Monocytes # (Manual) Eosinophils # (Manual) Heparin Anti-Xa Level ABG pO2 ABG HCO3 ABG O2 Saturation ABG Base Excess ABG Hemoglobin Oxyhemoglobin Sodium Potassium Chloride Carbon Dioxide BUN Creatinine Glucose POC Glucose 317 H Hemoglobin A1c 11.0 H Calcium AST ALT Alkaline Phosphatase Total Creatine Kinase 7255 H CK-MB (CK-2) 79.3 H CK-MB (CK-2) Rel Index Troponin T 5.540 H* D Total Protein Albumin Triglycerides LDL Cholesterol Direct 03/19/20 03/19/20 03/19/20 08:08 08:08 08:08 WBC 13.3 H RBC Hgb Hct Lymph % (Auto) 10.7 L [place] % (Auto) 8.5 H [place] # 1.1 H Seg Neutrophils % 80.0 H Seg Neuts % (Manual) Lymphocytes % (Manual) Nucleated RBC % Seg Neutrophils # 10.6 H Seg Neutrophils # Man Lymphocytes # (Manual) Monocytes # (Manual) Eosinophils # (Manual) Heparin Anti-Xa Level 0.10 L ABG pO2 ABG HCO3 ABG O2 Saturation ABG Base Excess ABG Hemoglobin Oxyhemoglobin Sodium 133 L Potassium 5.1 H Chloride Carbon Dioxide 17 L BUN 23 H Creatinine Glucose 313 H POC Glucose Hemoglobin A1c Calcium AST ALT Alkaline Phosphatase Total Creatine Kinase CK-MB (CK-2) CK-MB (CK-2) Rel Index Troponin T Total Protein Albumin Triglycerides LDL Cholesterol Direct 03/19/20 03/19/20 03/19/20 15:40 18:23 21:32 WBC RBC Hgb Hct Lymph % (Auto) [place] % (Auto) [place] # Seg Neutrophils % Seg Neuts % (Manual) Lymphocytes % (Manual) Nucleated RBC % Seg Neutrophils # Seg Neutrophils # Man Lymphocytes # (Manual) Monocytes # (Manual) Eosinophils # (Manual) Heparin Anti-Xa Level < 0.10 L ABG pO2 ABG HCO3 18.3 L ABG O2 Saturation ABG Base Excess -5.4 L ABG Hemoglobin 12.2 L Oxyhemoglobin 94.6 L Sodium Potassium Chloride Carbon Dioxide BUN Creatinine Glucose POC Glucose 348 H Hemoglobin A1c Calcium AST ALT Alkaline Phosphatase Total Creatine Kinase CK-MB (CK-2) CK-MB (CK-2) Rel Index Troponin T Total Protein Albumin Triglycerides LDL Cholesterol Direct 03/20/20 03/20/20 03/20/20 04:35 05:12 05:12 WBC 11.1 H RBC 3.63 L Hgb 11.0 L Hct 32.7 L D Lymph % (Auto) [place] % (Auto) 8.1 H [place] # 0.9 H Seg Neutrophils % 75.8 H Seg Neuts % (Manual) Lymphocytes % (Manual) Nucleated RBC % Seg Neutrophils # 8.4 H Seg Neutrophils # Man Lymphocytes # (Manual) Monocytes # (Manual) Eosinophils # (Manual) Heparin Anti-Xa Level 0.28 L ABG pO2 68.3 L ABG HCO3 ABG O2 Saturation 94.3 L ABG Base Excess ABG Hemoglobin 7.1 L Oxyhemoglobin 92.3 L Sodium Potassium Chloride Carbon Dioxide BUN Creatinine Glucose POC Glucose Hemoglobin A1c Calcium AST ALT Alkaline Phosphatase Total Creatine Kinase CK-MB (CK-2) CK-MB (CK-2) Rel Index Troponin T Total Protein Albumin Triglycerides LDL Cholesterol Direct 03/20/20 03/20/20 03/20/20 05:12 07:49 12:15 WBC RBC Hgb Hct Lymph % (Auto) [place] % (Auto) [place] # Seg Neutrophils % Seg Neuts % (Manual) Lymphocytes % (Manual) Nucleated RBC % Seg Neutrophils # Seg Neutrophils # Man Lymphocytes # (Manual) Monocytes # (Manual) Eosinophils # (Manual) Heparin Anti-Xa Level ABG pO2 ABG HCO3 ABG O2 Saturation ABG Base Excess ABG Hemoglobin Oxyhemoglobin Sodium 134 L Potassium Chloride Carbon Dioxide 21 L BUN 23 H Creatinine Glucose 275 H POC Glucose 294 H 357 H Hemoglobin A1c Calcium AST ALT Alkaline Phosphatase Total Creatine Kinase CK-MB (CK-2) CK-MB (CK-2) Rel Index Troponin T 3.200 H* D Total Protein Albumin Triglycerides LDL Cholesterol Direct 03/20/20 03/20/20 03/21/20 17:16 22:08 04:44 WBC RBC Hgb Hct Lymph % (Auto) [place] % (Auto) [place] # Seg Neutrophils % Seg Neuts % (Manual) Lymphocytes % (Manual) Nucleated RBC % Seg Neutrophils # Seg Neutrophils # Man Lymphocytes # (Manual) Monocytes # (Manual) Eosinophils # (Manual) Heparin Anti-Xa Level ABG pO2 ABG HCO3 ABG O2 Saturation ABG Base Excess ABG Hemoglobin Oxyhemoglobin Sodium 136 L Potassium Chloride Carbon Dioxide 18 L BUN 26 H Creatinine Glucose 266 H POC Glucose 327 H 292 H Hemoglobin A1c Calcium 8.1 L AST ALT Alkaline Phosphatase Total Creatine Kinase CK-MB (CK-2) CK-MB (CK-2) Rel Index Troponin T Total Protein Albumin Triglycerides LDL Cholesterol Direct 03/21/20 03/21/2020 07:50 12:25 15:53 WBC RBC Hgb Hct Lymph % (Auto) [place] % (Auto) [place] # Seg Neutrophils % Seg Neuts % (Manual) Lymphocytes % (Manual) Nucleated RBC % Seg Neutrophils # Seg Neutrophils # Man Lymphocytes # (Manual) Monocytes # (Manual) Eosinophils # (Manual) Heparin Anti-Xa Level ABG pO2 ABG HCO3 ABG O2 Saturation ABG Base Excess ABG Hemoglobin Oxyhemoglobin Sodium Potassium Chloride Carbon Dioxide BUN Creatinine Glucose POC Glucose 271 H 314 H 436 H Hemoglobin A1c Calcium AST ALT Alkaline Phosphatase Total Creatine Kinase CK-MB (CK-2) CK-MB (CK-2) Rel Index Troponin T Total Protein Albumin Triglycerides LDL Cholesterol Direct 03/21/20 03/21/20 03/22/20 17:44 21:55 04:33 WBC RBC Hgb 10.0 L Hct 29.4 L Lymph % (Auto) [place] % (Auto) [place] # Seg Neutrophils % Seg Neuts % (Manual) Lymphocytes % (Manual) Nucleated RBC % Seg Neutrophils # Seg Neutrophils # Man Lymphocytes # (Manual) Monocytes # (Manual) Eosinophils # (Manual) Heparin Anti-Xa Level ABG pO2 ABG HCO3 ABG O2 Saturation ABG Base Excess ABG Hemoglobin Oxyhemoglobin Sodium Potassium Chloride Carbon Dioxide BUN Creatinine Glucose POC Glucose 362 H 329 H Hemoglobin A1c Calcium AST ALT Alkaline Phosphatase Total Creatine Kinase CK-MB (CK-2) CK-MB (CK-2) Rel Index Troponin T Total Protein Albumin Triglycerides LDL Cholesterol Direct 03/22/20 03/22/20 03/22/20 08:57 14:12 19:57 WBC RBC Hgb Hct Lymph % (Auto) [place] % (Auto) [place] # Seg Neutrophils % Seg Neuts % (Manual) Lymphocytes % (Manual) Nucleated RBC % Seg Neutrophils # Seg Neutrophils # Man Lymphocytes # (Manual) Monocytes # (Manual) Eosinophils # (Manual) Heparin Anti-Xa Level ABG pO2 ABG HCO3 ABG O2 Saturation ABG Base Excess ABG Hemoglobin Oxyhemoglobin Sodium Potassium Chloride Carbon Dioxide BUN Creatinine Glucose POC Glucose 284 H 319 H 356 H Hemoglobin A1c Calcium AST ALT Alkaline Phosphatase Total Creatine Kinase CK-MB (CK-2) CK-MB (CK-2) Rel Index Troponin T Total Protein Albumin Triglycerides LDL Cholesterol Direct 03/22/20 03/23/20 03/23/20 21:44 08:18 12:46 WBC RBC Hgb Hct Lymph % (Auto) [place] % (Auto) [place] # Seg Neutrophils % Seg Neuts % (Manual) Lymphocytes % (Manual) Nucleated RBC % Seg Neutrophils # Seg Neutrophils # Man Lymphocytes # (Manual) Monocytes # (Manual) Eosinophils # (Manual) Heparin Anti-Xa Level ABG pO2 ABG HCO3 ABG O2 Saturation ABG Base Excess ABG Hemoglobin Oxyhemoglobin Sodium Potassium Chloride Carbon Dioxide BUN Creatinine Glucose POC Glucose 336 H 215 H 262 H Hemoglobin A1c Calcium AST ALT Alkaline Phosphatase Total Creatine Kinase CK-MB (CK-2) CK-MB (CK-2) Rel Index Troponin T Total Protein Albumin Triglycerides LDL Cholesterol Direct 03/23/20 03/23/20 03/24/20 15:56 22:05 02:35 WBC RBC Hgb 9.0 L Hct 25.8 L Lymph % (Auto) [place] % (Auto) [place] # Seg Neutrophils % Seg Neuts % (Manual) Lymphocytes % (Manual) Nucleated RBC % Seg Neutrophils # Seg Neutrophils # Man Lymphocytes # (Manual) Monocytes # (Manual) Eosinophils # (Manual) Heparin Anti-Xa Level ABG pO2 ABG HCO3 ABG O2 Saturation ABG Base Excess ABG Hemoglobin Oxyhemoglobin Sodium Potassium Chloride Carbon Dioxide BUN Creatinine Glucose POC Glucose 246 H 322 H Hemoglobin A1c Calcium AST ALT Alkaline Phosphatase Total Creatine Kinase CK-MB (CK-2) CK-MB (CK-2) Rel Index Troponin T Total Protein Albumin Triglycerides LDL Cholesterol Direct 03/24/20 03/24/20 03/24/20 07:38 11:45 16:02 WBC RBC Hgb Hct Lymph % (Auto) [place] % (Auto) [place] # Seg Neutrophils % Seg Neuts % (Manual) Lymphocytes % (Manual) Nucleated RBC % Seg Neutrophils # Seg Neutrophils # Man Lymphocytes # (Manual) Monocytes # (Manual) Eosinophils # (Manual) Heparin Anti-Xa Level ABG pO2 ABG HCO3 ABG O2 Saturation ABG Base Excess ABG Hemoglobin Oxyhemoglobin Sodium Potassium Chloride Carbon Dioxide BUN Creatinine Glucose POC Glucose 289 H 257 H 150 H Hemoglobin A1c Calcium AST ALT Alkaline Phosphatase Total Creatine Kinase CK-MB (CK-2) CK-MB (CK-2) Rel Index Troponin T Total Protein Albumin Triglycerides LDL Cholesterol Direct 03/24/20 03/25/20 03/25/20 21:24 04:06 07:39 WBC RBC Hgb Hct Lymph % (Auto) [place] % (Auto) [place] # Seg Neutrophils % Seg Neuts % (Manual) Lymphocytes % (Manual) Nucleated RBC % Seg Neutrophils # Seg Neutrophils # Man Lymphocytes # (Manual) Monocytes # (Manual) Eosinophils # (Manual) Heparin Anti-Xa Level 0.10 L ABG pO2 ABG HCO3 ABG O2 Saturation ABG Base Excess ABG Hemoglobin Oxyhemoglobin Sodium Potassium Chloride Carbon Dioxide BUN Creatinine Glucose POC Glucose 228 H 332 H Hemoglobin A1c Calcium AST ALT Alkaline Phosphatase Total Creatine Kinase CK-MB (CK-2) CK-MB (CK-2) Rel Index Troponin T Total Protein Albumin Triglycerides LDL Cholesterol Direct 03/25/20 03/25/20 03/25/20 08:13 09:30 11:59 WBC 13.1 H RBC 2.82 L Hgb 8.5 L Hct 26.1 L Lymph % (Auto) [place] % (Auto) [place] # Seg Neutrophils % Seg Neuts % (Manual) Lymphocytes % (Manual) Nucleated RBC % Seg Neutrophils # Seg Neutrophils # Man Lymphocytes # (Manual) Monocytes # (Manual) Eosinophils # (Manual) Heparin Anti-Xa Level ABG pO2 ABG HCO3 ABG O2 Saturation ABG Base Excess ABG Hemoglobin Oxyhemoglobin Sodium 131 L Potassium 5.3 H Chloride Carbon Dioxide 20 L BUN 39 H Creatinine 1.4 H Glucose 313 H POC Glucose 273 H Hemoglobin A1c Calcium 8.1 L AST ALT Alkaline Phosphatase Total Creatine Kinase CK-MB (CK-2) CK-MB (CK-2) Rel Index Troponin T Total Protein Albumin Triglycerides LDL Cholesterol Direct 03/25/20 03/25/20 03/25/20 13:54 15:58 18:21 WBC RBC Hgb Hct Lymph % (Auto) [place] % (Auto) [place] # Seg Neutrophils % Seg Neuts % (Manual) Lymphocytes % (Manual) Nucleated RBC % Seg Neutrophils # Seg Neutrophils # Man Lymphocytes # (Manual) Monocytes # (Manual) Eosinophils # (Manual) Heparin Anti-Xa Level ABG pO2 ABG HCO3 ABG O2 Saturation ABG Base Excess ABG Hemoglobin Oxyhemoglobin Sodium Potassium Chloride Carbon Dioxide BUN Creatinine Glucose POC Glucose 246 H 235 H 185 H Hemoglobin A1c Calcium AST ALT Alkaline Phosphatase Total Creatine Kinase CK-MB (CK-2) CK-MB (CK-2) Rel Index Troponin T Total Protein Albumin Triglycerides LDL Cholesterol Direct 03/25/20 03/26/20 03/26/20 20:45 05:15 06:59 WBC 17.4 H 15.6 H RBC 3.05 L 3.05 L Hgb 9.1 L 9.2 L Hct 28.2 L 27.9 L Lymph % (Auto) 8.9 L 8.9 L [place] % (Auto) [place] # 1.0 H Seg Neutrophils % 84.4 H 84.8 H Seg Neuts % (Manual) Lymphocytes % (Manual) Nucleated RBC % Seg Neutrophils # 14.7 H 13.2 H Seg Neutrophils # Man Lymphocytes # (Manual) Monocytes # (Manual) Eosinophils # (Manual) Heparin Anti-Xa Level ABG pO2 ABG HCO3 ABG O2 Saturation ABG Base Excess ABG Hemoglobin Oxyhemoglobin Sodium Potassium Chloride Carbon Dioxide BUN Creatinine Glucose POC Glucose 178 H Hemoglobin A1c Calcium AST ALT Alkaline Phosphatase Total Creatine Kinase CK-MB (CK-2) CK-MB (CK-2) Rel Index Troponin T Total Protein Albumin Triglycerides LDL Cholesterol Direct 03/26/20 03/26/20 03/26/20 06:59 07:43 11:56 WBC RBC Hgb Hct Lymph % (Auto) [place] % (Auto) [place] # Seg Neutrophils % Seg Neuts % (Manual) Lymphocytes % (Manual) Nucleated RBC % Seg Neutrophils # Seg Neutrophils # Man Lymphocytes # (Manual) Monocytes # (Manual) Eosinophils # (Manual) Heparin Anti-Xa Level ABG pO2 ABG HCO3 ABG O2 Saturation ABG Base Excess ABG Hemoglobin Oxyhemoglobin Sodium 131 L Potassium 5.8 H Chloride Carbon Dioxide 16 L BUN 42 H Creatinine 1.4 H Glucose 163 H POC Glucose 170 H 198 H Hemoglobin A1c Calcium 8.0 L AST ALT Alkaline Phosphatase Total Creatine Kinase CK-MB (CK-2) CK-MB (CK-2) Rel Index Troponin T Total Protein Albumin Triglycerides LDL Cholesterol Direct 03/26/20 03/26/20 03/26/20 13:58 16:16 21:00 WBC RBC Hgb Hct Lymph % (Auto) [place] % (Auto) [place] # Seg Neutrophils % Seg Neuts % (Manual) Lymphocytes % (Manual) Nucleated RBC % Seg Neutrophils # Seg Neutrophils # Man Lymphocytes # (Manual) Monocytes # (Manual) Eosinophils # (Manual) Heparin Anti-Xa Level ABG pO2 ABG HCO3 ABG O2 Saturation ABG Base Excess ABG Hemoglobin Oxyhemoglobin Sodium 128 L Potassium 6.0 H Chloride Carbon Dioxide 15 L BUN 45 H Creatinine 1.4 H Glucose 190 H POC Glucose 184 H 192 H Hemoglobin A1c Calcium 8.2 L AST ALT Alkaline Phosphatase Total Creatine Kinase CK-MB (CK-2) CK-MB (CK-2) Rel Index Troponin T Total Protein Albumin Triglycerides LDL Cholesterol Direct 03/27/20 03/27/20 03/27/20 08:32 11:51 14:39 WBC 22.9 H RBC 2.68 L Hgb 7.9 L Hct 24.7 L Lymph % (Auto) [place] % (Auto) [place] # Seg Neutrophils % Seg Neuts % (Manual) Lymphocytes % (Manual) Nucleated RBC % Seg Neutrophils # Seg Neutrophils # Man Lymphocytes # (Manual) Monocytes # (Manual) Eosinophils # (Manual) Heparin Anti-Xa Level ABG pO2 ABG HCO3 ABG O2 Saturation ABG Base Excess ABG Hemoglobin Oxyhemoglobin Sodium Potassium Chloride Carbon Dioxide BUN Creatinine Glucose POC Glucose 233 H 252 H Hemoglobin A1c Calcium AST ALT Alkaline Phosphatase Total Creatine Kinase CK-MB (CK-2) CK-MB (CK-2) Rel Index Troponin T Total Protein Albumin Triglycerides LDL Cholesterol Direct 03/27/20 03/27/20 03/27/20 14:39 15:19 21:35 WBC RBC Hgb Hct Lymph % (Auto) [place] % (Auto) [place] # Seg Neutrophils % Seg Neuts % (Manual) Lymphocytes % (Manual) Nucleated RBC % Seg Neutrophils # Seg Neutrophils # Man Lymphocytes # (Manual) Monocytes # (Manual) Eosinophils # (Manual) Heparin Anti-Xa Level ABG pO2 ABG HCO3 ABG O2 Saturation ABG Base Excess ABG Hemoglobin Oxyhemoglobin Sodium 133 L Potassium 5.5 H Chloride Carbon Dioxide 16 L BUN 46 H Creatinine 1.4 H Glucose 225 H POC Glucose 239 H 202 H Hemoglobin A1c Calcium 8.2 L AST ALT Alkaline Phosphatase Total Creatine Kinase CK-MB (CK-2) CK-MB (CK-2) Rel Index Troponin T Total Protein Albumin Triglycerides LDL Cholesterol Direct 03/28/20 03/28/20 03/28/20 07:39 07:39 08:36 WBC 22.4 H RBC 2.71 L Hgb 7.9 L Hct 24.5 L Lymph % (Auto) [place] % (Auto) [place] # Seg Neutrophils % Seg Neuts % (Manual) 88.0 H Lymphocytes % (Manual) 5.0 L Nucleated RBC % Seg Neutrophils # Seg Neutrophils # Man 19.7 H Lymphocytes # (Manual) 1.1 L Monocytes # (Manual) 1.6 H Eosinophils # (Manual) Heparin Anti-Xa Level ABG pO2 ABG HCO3 ABG O2 Saturation ABG Base Excess ABG Hemoglobin Oxyhemoglobin Sodium 134 L Potassium Chloride Carbon Dioxide 19 L BUN 47 H Creatinine Glucose 240 H POC Glucose 253 H Hemoglobin A1c Calcium 7.8 L AST ALT Alkaline Phosphatase Total Creatine Kinase CK-MB (CK-2) CK-MB (CK-2) Rel Index Troponin T Total Protein Albumin Triglycerides LDL Cholesterol Direct 03/28/20 03/28/20 03/28/20 11:54 17:08 21:17 WBC RBC Hgb Hct Lymph % (Auto) [place] % (Auto) [place] # Seg Neutrophils % Seg Neuts % (Manual) Lymphocytes % (Manual) Nucleated RBC % Seg Neutrophils # Seg Neutrophils # Man Lymphocytes # (Manual) Monocytes # (Manual) Eosinophils # (Manual) Heparin Anti-Xa Level ABG pO2 ABG HCO3 ABG O2 Saturation ABG Base Excess ABG Hemoglobin Oxyhemoglobin Sodium Potassium Chloride Carbon Dioxide BUN Creatinine Glucose POC Glucose 306 H 178 H 186 H Hemoglobin A1c Calcium AST ALT Alkaline Phosphatase Total Creatine Kinase CK-MB (CK-2) CK-MB (CK-2) Rel Index Troponin T Total Protein Albumin Triglycerides LDL Cholesterol Direct 03/29/20 03/29/20 03/29/20 08:32 12:04 14:19 WBC 21.5 H RBC 2.82 L Hgb 8.4 L Hct 26.1 L Lymph % (Auto) [place] % (Auto) [place] # Seg Neutrophils % Seg Neuts % (Manual) 85.0 H Lymphocytes % (Manual) 11.0 L Nucleated RBC % 3.0 H Seg Neutrophils # Seg Neutrophils # Man 18.3 H Lymphocytes # (Manual) Monocytes # (Manual) Eosinophils # (Manual) 0.6 H Heparin Anti-Xa Level ABG pO2 ABG HCO3 ABG O2 Saturation ABG Base Excess ABG Hemoglobin Oxyhemoglobin Sodium Potassium Chloride Carbon Dioxide BUN Creatinine Glucose POC Glucose 110 H 263 H Hemoglobin A1c Calcium AST ALT Alkaline Phosphatase Total Creatine Kinase CK-MB (CK-2) CK-MB (CK-2) Rel Index Troponin T Total Protein Albumin Triglycerides LDL Cholesterol Direct 03/29/20 03/29/20 03/30/20 16:17 22:57 11:00 WBC RBC Hgb Hct Lymph % (Auto) [place] % (Auto) [place] # Seg Neutrophils % Seg Neuts % (Manual) Lymphocytes % (Manual) Nucleated RBC % Seg Neutrophils # Seg Neutrophils # Man Lymphocytes # (Manual) Monocytes # (Manual) Eosinophils # (Manual) Heparin Anti-Xa Level ABG pO2 ABG HCO3 ABG O2 Saturation ABG Base Excess ABG Hemoglobin Oxyhemoglobin Sodium Potassium Chloride Carbon Dioxide BUN Creatinine Glucose POC Glucose 109 H 194 H 129 H Hemoglobin A1c Calcium AST ALT Alkaline Phosphatase Total Creatine Kinase CK-MB (CK-2) CK-MB (CK-2) Rel Index Troponin T Total Protein Albumin Triglycerides LDL Cholesterol Direct 03/30/20 03/30/20 03/31/20 15:16 21:54 04:27 WBC 15.8 H RBC 2.62 L Hgb 7.7 L Hct 24.1 L Lymph % (Auto) 9.4 L [place] % (Auto) [place] # Seg Neutrophils % 84.4 H Seg Neuts % (Manual) Lymphocytes % (Manual) Nucleated RBC % Seg Neutrophils # 13.3 H Seg Neutrophils # Man Lymphocytes # (Manual) Monocytes # (Manual) Eosinophils # (Manual) Heparin Anti-Xa Level ABG pO2 ABG HCO3 ABG O2 Saturation ABG Base Excess ABG Hemoglobin Oxyhemoglobin Sodium Potassium Chloride Carbon Dioxide BUN Creatinine Glucose POC Glucose 115 H 166 H Hemoglobin A1c Calcium AST ALT Alkaline Phosphatase Total Creatine Kinase CK-MB (CK-2) CK-MB (CK-2) Rel Index Troponin T Total Protein Albumin Triglycerides LDL Cholesterol Direct 03/31/20 03/31/20 03/31/20 04:27 07:37 11:46 WBC RBC Hgb Hct Lymph % (Auto) [place] % (Auto) [place] # Seg Neutrophils % Seg Neuts % (Manual) Lymphocytes % (Manual) Nucleated RBC % Seg Neutrophils # Seg Neutrophils # Man Lymphocytes # (Manual) Monocytes # (Manual) Eosinophils # (Manual) Heparin Anti-Xa Level ABG pO2 ABG HCO3 ABG O2 Saturation ABG Base Excess ABG Hemoglobin Oxyhemoglobin Sodium 133 L Potassium Chloride 96.6 L Carbon Dioxide 18 L BUN 75 H Creatinine 2.5 H D Glucose 129 H POC Glucose 156 H 224 H Hemoglobin A1c Calcium 8.0 L AST ALT Alkaline Phosphatase Total Creatine Kinase CK-MB (CK-2) CK-MB (CK-2) Rel Index Troponin T Total Protein Albumin Triglycerides LDL Cholesterol Direct 04/01/20 04/01/20 04/01/20 08:34 10:52 10:52 WBC 12.9 H RBC 2.75 L Hgb 8.2 L Hct 24.8 L Lymph % (Auto) 10.6 L [place] % (Auto) [place] # Seg Neutrophils % 83.7 H Seg Neuts % (Manual) Lymphocytes % (Manual) Nucleated RBC % Seg Neutrophils # 10.8 H Seg Neutrophils # Man Lymphocytes # (Manual) Monocytes # (Manual) Eosinophils # (Manual) Heparin Anti-Xa Level ABG pO2 ABG HCO3 ABG O2 Saturation ABG Base Excess ABG Hemoglobin Oxyhemoglobin Sodium 131 L Potassium Chloride 96.1 L Carbon Dioxide 17 L BUN 77 H Creatinine 2.3 H Glucose 205 H POC Glucose 110 H Hemoglobin A1c Calcium 7.9 L AST ALT Alkaline Phosphatase Total Creatine Kinase CK-MB (CK-2) CK-MB (CK-2) Rel Index Troponin T Total Protein Albumin Triglycerides LDL Cholesterol Direct 04/01/20 04/01/20 04/01/20 12:15 17:22 20:47 WBC RBC Hgb Hct Lymph % (Auto) [place] % (Auto) [place] # Seg Neutrophils % Seg Neuts % (Manual) Lymphocytes % (Manual) Nucleated RBC % Seg Neutrophils # Seg Neutrophils # Man Lymphocytes # (Manual) Monocytes # (Manual) Eosinophils # (Manual) Heparin Anti-Xa Level ABG pO2 ABG HCO3 ABG O2 Saturation ABG Base Excess ABG Hemoglobin Oxyhemoglobin Sodium Potassium Chloride Carbon Dioxide BUN Creatinine Glucose POC Glucose 201 H 219 H 156 H Hemoglobin A1c Calcium AST ALT Alkaline Phosphatase Total Creatine Kinase CK-MB (CK-2) CK-MB (CK-2) Rel Index Troponin T Total Protein Albumin Triglycerides LDL Cholesterol Direct 04/02/20 04/02/20 04/02/20 05:44 05:44 11:32 WBC 15.8 H RBC 2.81 L Hgb 8.2 L Hct 25.7 L Lymph % (Auto) [place] % (Auto) [place] # 0.9 H Seg Neutrophils % 77.7 H Seg Neuts % (Manual) Lymphocytes % (Manual) Nucleated RBC % Seg Neutrophils # 12.3 H Seg Neutrophils # Man Lymphocytes # (Manual) Monocytes # (Manual) Eosinophils # (Manual) Heparin Anti-Xa Level ABG pO2 ABG HCO3 ABG O2 Saturation ABG Base Excess ABG Hemoglobin Oxyhemoglobin Sodium 134 L Potassium Chloride Carbon Dioxide 19 L BUN 76 H Creatinine 2.0 H Glucose POC Glucose 116 H Hemoglobin A1c Calcium 8.0 L AST 291 H ALT 169 H Alkaline Phosphatase 256 H Total Creatine Kinase CK-MB (CK-2) CK-MB (CK-2) Rel Index Troponin T Total Protein 6.1 L Albumin 2.2 L Triglycerides LDL Cholesterol Direct 04/02/20 04/02/20 04/03/20 16:56 22:03 08:13 WBC RBC Hgb Hct Lymph % (Auto) [place] % (Auto) [place] # Seg Neutrophils % Seg Neuts % (Manual) Lymphocytes % (Manual) Nucleated RBC % Seg Neutrophils # Seg Neutrophils # Man Lymphocytes # (Manual) Monocytes # (Manual) Eosinophils # (Manual) Heparin Anti-Xa Level ABG pO2 ABG HCO3 ABG O2 Saturation ABG Base Excess ABG Hemoglobin Oxyhemoglobin Sodium Potassium Chloride Carbon Dioxide BUN Creatinine Glucose POC Glucose 141 H 152 H 126 H Hemoglobin A1c Calcium AST ALT Alkaline Phosphatase Total Creatine Kinase CK-MB (CK-2) CK-MB (CK-2) Rel Index Troponin T Total Protein Albumin Triglycerides LDL Cholesterol Direct 04/03/20 12:11 WBC RBC Hgb Hct Lymph % (Auto) [place] % (Auto) [place] # Seg Neutrophils % Seg Neuts % (Manual) Lymphocytes % (Manual) Nucleated RBC % Seg Neutrophils # Seg Neutrophils # Man Lymphocytes # (Manual) Monocytes # (Manual) Eosinophils # (Manual) Heparin Anti-Xa Level ABG pO2 ABG HCO3 ABG O2 Saturation ABG Base Excess ABG Hemoglobin Oxyhemoglobin Sodium Potassium Chloride Carbon Dioxide BUN Creatinine Glucose POC Glucose 139 H Hemoglobin A1c Calcium AST ALT Alkaline Phosphatase Total Creatine Kinase CK-MB (CK-2) CK-MB (CK-2) Rel Index Troponin T Total Protein Albumin Triglycerides LDL Cholesterol Direct Allied health notes reviewed: RT
--- NOTE | 2020-04-03 19:17 | Progress Note ---
Assessment and Plan Assessment and plan: --Transaminitis; unknown etiology, slowly trend Check abdominal ultrasound, GI consult if needed --Anemia; Current Visit: Yes Status: Acute Gradual l drop in H&H, closely monitor and transfuse as needed --Acute kidney injury; vasomotor nephropathy Current Visit: Yes Status: Acute Gentle hydration, monitor renal function, avoid nephrotoxins, nephrology evaluation if needed --Hypotension; Current Visit: Yes Status: Acute patient [employer] pump on hold due to hypotension And give low-dose Dilaudid every 6 hours as needed for pain. Closely monitor blood pressures, fluid bolus as needed --Acute kidney injury; vasomotor nephropathy Current Visit: Yes Status: Acute Gentle hydration, monitor renal function Avoid nephrotoxins, nephrology consult if needed --Hyperkalemia; resolved Current Visit: Yes Status: Acute Monitor electrolytes. --Insomnia; Current Visit: Yes Status: Acute Optimal pain medications, sleeping aid Ambien 5 mg nightly --Acute left lower extremity ischemia,s/p Lt BKA Current Visit: Yes Status: Acute 03/19/2020 status post endovascular revascularization. 03/19/2020 s/p left LE, 4 compartment fasciotomy per vascular 03/25/2020 s/p left BKA on --SIRS; without organ dysfunction Current Visit: Yes Status: Acute leukocytosis trending down, continue Zosyn tachycardia, resolved --Non-ST elevation CA : Current Visit: Yes Status: Acute Patient has history of CABG patient denies any chest pain. Management per cardiology Per cardiology non-STEMI 2 Elevated troponins at the time of admission --Acute systolic CHF; EF 30-35%% Current Visit: Yes Status: Acute Beta-blockers, BIJAN inhibitor, diuretics Improved -- Hyperglycemia due to diabetes mellitus Current Visit: Yes Status: Acute Accu-Chek sliding scale coverage ADA diet Long-acting insulin as needed, W1t---30.0 --Nicotine dependence Current Visit: Yes Status: Acute Smoking cessation nicotine patch as needed --DVT prophylaxis Current Visit: Yes Status: Acute Patient currently on anticoagulation. -- Full code status Current Visit: Yes Status: Acute Patient is on heparin drip Discharge planning issues Disposition ;acute rehab placement, insurance did not approve Planning SNF placement Monitor closely and adjust management as needed Plan of care reviewed with the patient and his nurse 03/19/2020 status post endovascular revascularization. 03/19/2020 s/p left lower extremity 4 compartment fasciotomy 03/25/2020; s/p left BKA on 03/26/20; evaluated by PT, recommend acute rehab 03/29/20; acute rehab facility from [facility] evaluated the patient Patient is not ready for acute rehab, they will reevaluate 03/30/20; complains of insomnia, add Ambien 03/31; patient is hypotensive, [employer] pump discontinued. Added Dilaudid IV as needed 04/01; patient has worsening renal function, and drop in H&H, closely monitor transfuse as needed 04/02; insurance did not approve acute rehab, SNF placement is being processed 04/03: Patient has elevated LFTs WBC remain high, abdominal ultrasound History Interval history: I have seen and examined the patient in his room this morning Patient's chart and medications reviewed WBC remains high, patient also has transaminitis No new complaints, patient anxious to go home Vital signs reviewed Hospitalist Physical - Constitutional Vitals: Temp Pulse Resp BP Pulse Ox 97.2 F L 61 20 92/68 96 04/03/20 16:09 04/03/20 16:09 04/03/20 16:09 04/03/20 16:09 04/03/20 16:09 General appearance: Present: no acute distress, well-nourished, obese (Morbidly) - EENT Eyes: Present: PERRL, EOM intact - Neck Neck: Present: supple, normal ROM - Respiratory Respiratory effort: normal Respiratory: bilateral: diminished, negative: rales, rhonchi, wheezing - Cardiovascular Rhythm: regular Heart Sounds: Present: S1 & S2 - Extremities Extremities: abnormal (Left BKA dressing in place) Extremity abnormal: edema - Abdominal General gastrointestinal: soft, non-tender, non-distended, normal bowel sounds - Integumentary Integumentary: Present: clear, warm - Psychiatric Psychiatric: appropriate mood/affect, cooperative - Neurologic Neurologic: moves all extremities HEART Score - HEART Score Troponin: Troponin T 3.200 ng/mL (0.00-0.029) H* D 03/20/20 05:12 Results - Labs CBC & Chem 7: 04/02/20 05:44 04/02/20 05:44 Labs: Laboratory Last Values WBC 15.8 K/mm3 (4.5-11.0) H 04/02/20 05:44 RBC 2.81 M/mm3 (3.65-5.03) L 04/02/20 05:44 Hgb 8.2 gm/dl (11.8-15.2) L 04/02/20 05:44 Hct 25.7 % (35.5-45.6) L 04/02/20 05:44 MCV 92 fl (84-94) 04/02/20 05:44 MCH 29 pg (28-32) 04/02/20 05:44 MCHC 32 % (32-34) 04/02/20 05:44 RDW 14.9 % (13.2-15.2) 04/02/20 05:44 Plt Count 418 K/mm3 (140-440) 04/02/20 05:44 Lymph % (Auto) 14.8 % (13.4-35.0) 04/02/20 05:44 [place] % (Auto) 5.9 % (0.0-7.3) 04/02/20 05:44 Eos % (Auto) 1.0 % (0.0-4.3) 04/02/20 05:44 Baso % (Auto) 0.6 % (0.0-1.8) 04/02/20 05:44 Lymph # 2.3 K/mm3 (1.2-5.4) 04/02/20 05:44 [place] # 0.9 K/mm3 (0.0-0.8) H 04/02/20 05:44 Eos # 0.2 K/mm3 (0.0-0.4) 04/02/20 05:44 Baso # 0.1 K/mm3 (0.0-0.1) 04/02/20 05:44 Add Manual Diff Complete 03/29/20 14:19 Total Counted 100 03/29/20 14:19 Seg Neutrophils % 77.7 % (40.0-70.0) H 04/02/20 05:44 Seg Neuts % (Manual) 85.0 % (40.0-70.0) H 03/29/20 14:19 Band Neutrophils % 0 % 03/29/20 14:19 Lymphocytes % (Manual) 11.0 % (13.4-35.0) L 03/29/20 14:19 Reactive Lymphs % (Man) 0 % 03/29/20 14:19 Monocytes % (Manual) 1.0 % (0.0-7.3) 03/29/20 14:19 Eosinophils % (Manual) 3.0 % (0.0-4.3) 03/29/20 14:19 Basophils % (Manual) 0 % (0.0-1.8) 03/29/20 14:19 Metamyelocytes % 0 % 03/29/20 14:19 Myelocytes % 0 % 03/29/20 14:19 Promyelocytes % 0 % 03/29/20 14:19 Blast Cells % 0 % 03/29/20 14:19 Nucleated RBC % 3.0 % (0.0-0.9) H 03/29/20 14:19 Seg Neutrophils # 12.3 K/mm3 (1.8-7.7) H 04/02/20 05:44 Seg Neutrophils # Man 18.3 K/mm3 (1.8-7.7) H 03/29/20 14:19 Band Neutrophils # 0.0 K/mm3 03/29/20 14:19 Lymphocytes # (Manual) 2.4 K/mm3 (1.2-5.4) 03/29/20 14:19 Abs React Lymphs (Man) 0.0 K/mm3 03/29/20 14:19 Monocytes # (Manual) 0.2 K/mm3 (0.0-0.8) 03/29/20 14:19 Eosinophils # (Manual) 0.6 K/mm3 (0.0-0.4) H 03/29/20 14:19 Basophils # (Manual) 0.0 K/mm3 (0.0-0.1) 03/29/20 14:19 Metamyelocytes # 0.0 K/mm3 03/29/20 14:19 Myelocytes # 0.0 K/mm3 03/29/20 14:19 Promyelocytes # 0.0 K/mm3 03/29/20 14:19 Blast Cells # 0.0 K/mm3 03/29/20 14:19 WBC Morphology Not Reportable 03/29/20 14:19 Hypersegmented Neuts Not Reportable 03/29/20 14:19 Hyposegmented Neuts Not Reportable 03/29/20 14:19 Hypogranular Neuts Not Reportable 03/29/20 14:19 Smudge Cells Not Reportable 03/29/20 14:19 Toxic Granulation Not Reportable 03/29/20 14:19 Toxic Vacuolation Not Reportable 03/29/20 14:19 Dohle Bodies Not Reportable 03/29/20 14:19 Pelger-Huet Anomaly Not Reportable 03/29/20 14:19 Ananya Rods Not Reportable 03/29/20 14:19 Platelet Estimate Consistent w auto 03/29/20 14:19 Clumped Platelets Not Reportable 03/29/20 14:19 Plt Clumps, EDTA Not Reportable 03/29/20 14:19 Large Platelets Not Reportable 03/29/20 14:19 Giant Platelets Not Reportable 03/29/20 14:19 Platelet Satelliting Not Reportable 03/29/20 14:19 Plt Morphology Comment Not Reportable 03/29/20 14:19 RBC Morphology Not Reportable 03/29/20 14:19 Dimorphic RBCs Not Reportable 03/29/20 14:19 Polychromasia Not Reportable 03/29/20 14:19 Hypochromasia Not Reportable 03/29/20 14:19 Poikilocytosis Not Reportable 03/29/20 14:19 Anisocytosis 1+ 03/29/20 14:19 Microcytosis Not Reportable 03/29/20 14:19 Macrocytosis Not Reportable 03/29/20 14:19 Spherocytes Not Reportable 03/29/20 14:19 Pappenheimer Bodies Not Reportable 03/29/20 14:19 Sickle Cells Not Reportable 03/29/20 14:19 Target Cells Not Reportable 03/29/20 14:19 Tear Drop Cells Not Reportable 03/29/20 14:19 Ovalocytes Not Reportable 03/29/20 14:19 Helmet Cells Not Reportable 03/29/20 14:19 Light-Dooling Bodies Not Reportable 03/29/20 14:19 [place] Rings Not Reportable 03/29/20 14:19 Piercy Cells Not Reportable 03/29/20 14:19 Bite Cells Not Reportable 03/29/20 14:19 Crenated Cell Not Reportable 03/29/20 14:19 Elliptocytes Not Reportable 03/29/20 14:19 Acanthocytes (Spur) Not Reportable 03/29/20 14:19 Rouleaux Not Reportable 03/29/20 14:19 Hemoglobin C Crystals Not Reportable 03/29/20 14:19 Schistocytes Not Reportable 03/29/20 14:19 Malaria parasites Not Reportable 03/29/20 14:19 Steven Bodies Not Reportable 03/29/20 14:19 Hem Pathologist Commnt No 03/29/20 14:19 PT 12.7 Sec. (12.2-14.9) 03/19/20 08:08 INR 0.94 (0.87-1.13) 03/19/20 08:08 APTT 27.7 Sec. (24.2-36.6) 03/18/20 18:28 Heparin Anti-Xa Level 0.10 U.I./ml (0.3-0.7) L 03/25/20 04:06 ABG pH 7.405 pH Units (7.350-7.450) 03/20/20 04:35 ABG pCO2 40.3 mm Hg 03/20/20 04:35 ABG pO2 68.3 mm Hg (80.0-90.0) L 03/20/20 04:35 ABG HCO3 24.6 mmol/L (20.0-26.0) 03/20/20 04:35 ABG O2 Saturation 94.3 % (95.0-99.0) L 03/20/20 04:35 ABG O2 Content 9.3 (0.0-44) 03/20/20 04:35 ABG Base Excess -0.1 mmol/L (-2.0-3.0) 03/20/20 04:35 ABG Hemoglobin 7.1 gm/dl (14.0-18.0) L 03/20/20 04:35 ABG Carboxyhemoglobin 1.8 % (0.0-5.0) 03/20/20 04:35 ABG Methemoglobin 0.4 % (0.0-1.5) 03/20/20 04:35 Oxyhemoglobin 92.3 % (95.0-99.0) L 03/20/20 04:35 FiO2 35 % 03/20/20 04:35 Sodium 134 mmol/L (137-145) L 04/02/20 05:44 Potassium 4.6 mmol/L (3.6-5.0) 04/02/20 05:44 Chloride 98.0 mmol/L (98-107) 04/02/20 05:44 Carbon Dioxide 19 mmol/L (22-30) L 04/02/20 05:44 Anion Gap 22 mmol/L 04/02/20 05:44 BUN 76 mg/dL (9-20) H 04/02/20 05:44 Creatinine 2.0 mg/dL (0.8-1.3) H 04/02/20 05:44 Estimated GFR 35 ml/min 04/02/20 05:44 BUN/Creatinine Ratio 38 % 04/02/20 05:44 Glucose 91 mg/dL (75-100) 04/02/20 05:44 POC Glucose 164 (70-105) H 04/03/20 16:26 Hemoglobin A1c 11.0 % (4-6) H 03/18/20 22:21 Calcium 8.0 mg/dL (8.4-10.2) L 04/02/20 05:44 Magnesium 2.20 mg/dL (1.7-2.3) 03/28/20 07:39 Total Bilirubin 0.80 mg/dL (0.1-1.2) 04/02/20 05:44 AST 291 units/L (5-40) H 04/02/20 05:44 ALT 169 units/L (7-56) H 04/02/20 05:44 Alkaline Phosphatase 256 units/L (35-129) H 04/02/20 05:44 Total Creatine Kinase 7255 units/L (55-170) H 03/19/20 08:08 CK-MB (CK-2) 79.3 ng/mL (0.0-4.0) H 03/19/20 08:08 CK-MB (CK-2) Rel Index 1.0 (0-4) 03/19/20 08:08 Troponin T 3.200 ng/mL (0.00-0.029) H* D 03/20/20 05:12 Total Protein 6.1 g/dL (6.3-8.2) L 04/02/20 05:44 Albumin 2.2 g/dL (3.9-5) L 04/02/20 05:44 Albumin/Globulin Ratio 0.6 % 04/02/20 05:44 Triglycerides 188 mg/dL (2-149) H 03/18/20 18:28 Cholesterol 199 mg/dL (50-199) 03/18/20 18:28 LDL Cholesterol Direct 141 mg/dL (50-130) H 03/18/20 18:28 HDL Cholesterol 47 mg/dL (40-59) 03/18/20 18:28 Cholesterol/HDL Ratio 4.23 % 03/18/20 18:28 Blood Type B POSITIVE 03/25/20 11:42 Antibody Screen Negative 03/25/20 11:42 - Diagnostic Impressions Diagnostic Impressions: Echocardiogram 03/19/20 12:49 Transthoracic Echocardiogram Indication: CAD and Abnormal EKG HR: 110 Conclusions *The study is technically limited due to patient body habitus. *The left ventricular chamber size is mildly dilated. *Global left ventricular systolic function is moderate to severely decreased. *The estimated ejection fraction is 30-35%. *The basal inferolateral, and basal inferior wall segments are normal. *The mid inferolateral, mid inferior, apical lateral, and apical inferior wall segments are akinetic. *The left atrial chamber size is normal. Findings Procedure Info: The study is technically limited due to patient body habitus. The study was technically limited due to the patient's inability to lay in the left lateral decubitus position. Left Ventricle: The left ventricular chamber size is mildly dilated. Global left ventricular systolic function is moderate to severely decreased. The estimated ejection fraction is 30-35%. The basal inferolateral, and basal inferior wall segments are normal. The mid inferolateral, mid inferior, apical lateral, and apical inferior wall segments are akinetic. Left Atrium: The left atrial chamber size is normal. Right Ventricle: The right ventricle is not well visualized. Right Atrium: The right atrium is not well visualized. The right atrial cavity size is normal. Aortic Valve: The aortic valve is trileaflet. Mitral Valve: The mitral valve leaflets are moderately thickened. There is mild mitral regurgitation. Tricuspid Valve: The tricuspid valve is not well visualized. There is trace tricuspid regurgitation. Pulmonic Valve: The pulmonic valve is not well visualized. Pericardium: There is no pericardial effusion. Aorta: The aorta appears normal. Venous: The venous system is not well visualized. Contrast: Definity was used to optimize study. Measurements Chambers 2D Name Value Normal Range IVSd (2D) 0.94 cm (0.6 - 1.1) LVPWd (2D) 0.94 cm (0.6 - 1.1) LVIDd (2D) 6.15 cm (3.7 - 5.6) LVIDs (2D) 5.2 cm (2 - 3.8) LV FS (2D) 15.5 % - EF Teichholz (2D) 32.08 % - Ao root diameter (2D) 2.77 cm (2 - 3.7) Volumes/Mass Name Value Normal Range LA ESV SP 4CH (A/L) 73.77 ml - LA ESV SP 2CH (A/L) 66.45 ml - LA ESV BP (A/L) 71.61 ml - LA ESV BP (A/L) index 30.6 ml/m2 - LA ESV SP 4CH (MOD) 72.55 ml - LA ESV SP 2CH (MOD) 65.34 ml - LA ESV BP (MOD) 70.27 ml - LA ESV BP (MOD) index 30.03 ml/m2 - Diastolic/Systolic Function Name Value Normal Range MV E-wave Vmax 0.85 m/sec - MV deceleration time 69.14 msec - MV A-wave Vmax 0.89 m/sec - MV E:A ratio 0.95 ratio - Aortic Valve Name Value Normal Range AV Vmax 0.96 m/sec - AV VTI 11.83 cm - AV peak gradient 3.68 mmHg - AV mean gradient 1.6 mmHg - LVOT diameter 2.19 cm - LVOT Vmax 0.86 m/sec - LVOT VTI 13.33 cm - LVOT peak gradient 2.96 mmHg - LVOT mean gradient 1.48 mmHg - SV LVOT 50.08 ml - DEYA (continuity Vmax) 3.37 cm2 - DEYA (continuity VTI) 4.23 cm2 - Ascending Ao 2.92 cm - Pulmonic Valve/Qp:Qs Name Value Normal Range PV Vmax 1.08 m/sec - PV VTI 15.88 cm - PV peak gradient 4.7 mmHg - PV mean gradient 2.18 mmHg - RVOT Vmax 0.82 m/sec - RVOT VTI 11.48 cm - RVOT peak gradient 2.67 mmHg - Wallmotion BAS Not Seen BA Not Seen BAL Not Seen BAY Normal BI Normal BIS Not Seen MAS Not Seen MA Not Seen MAL Not Seen MIL Akinetic CA Akinetic MIS Not Seen Not Seen AA Not Seen AL Akinetic AI Akinetic APEX Not Seen Tyson/IV: Voiding Method Urinal IV Catheter Type [Right Peripheral IV Forearm] IV Catheter Type [Right INT / Saline Lock Antecubital] IV Catheter Type [Left Forearm INT / Saline Lock ] IV Catheter Type [Left Upper Peripheral IV arm] IV Catheter Type [Left Peripheral IV Antecubital] Active Medications - Current Medications Current Medications: Generic Name Dose Route Start Last Admin Trade Name Freq PRN Reason Stop Dose Admin Acetaminophen/Hydrocodone Bitart 2 each 03/22/20 17:18 04/03/20 09:56 Logan 5/325 PO 2 each Q4H PRN Administration Pain, Moderate (4-6) Albuterol 2.5 mg 04/01/20 00:03 Proventil IH Q6HRT PRN Shortness Of Breath Apixaban 5 mg 03/26/20 22:00 04/03/20 09:56 Eliquis PO 5 mg Q12HR LOI Administration Protocol Arformoterol Tartrate 15 mcg 03/19/20 20:00 04/03/20 07:59 Brovana Nebu IH 15 mcg Q12HRT LOI Administration Atorvastatin Calcium 40 mg 03/19/20 22:00 04/02/20 22:41 Lipitor PO 40 mg QHS LOI Administration Budesonide 0.5 mg 03/19/20 20:00 04/03/20 07:59 Pulmicort IH 0.5 mg Q12HRT LOI Administration Clopidogrel Bisulfate 75 mg 03/19/20 10:00 04/03/20 09:55 Plavix PO 75 mg QDAY LOI Administration Dextrose 50 ml 03/18/20 22:21 D50w (25gm) Syringe IV Q30MIN PRN Hypoglycemia Protocol Diphenhydramine HCl 25 mg 03/19/20 12:44 Benadryl IV Q4H PRN Itching Guaifenesin 10 ml 04/01/20 00:03 04/02/20 05:34 Guaifenesin Dm Syrup PO 10 ml Q4H PRN Administration Cough Hydromorphone/Sodium Chloride 0 mg 03/19/20 13:00 03/30/20 02:09 Dilaudid Connie Cleaner 6mg/30ml IV 1 cart DIRECT LOI Administration Protocol Sodium Chloride 500 mls @ 2 mls/hr 03/28/20 22:00 03/30/20 22:45 Nacl 0.9% 500 Ml IV 2 mls/hr DIRECT LOI Administration Sodium Chloride 1,000 mls @ 75 mls/hr 04/01/20 13:15 04/03/20 13:23 Nacl 0.9% 1000 Ml IV 75 mls/hr DIRECT LOI Administration Piperacillin Sod/Tazobactam Sod 4.5 gm in 100 mls @ 200 mls/hr 04/02/20 14:00 04/03/20 13:23 Zosyn/Ns 4.5gm/100ml IV 200 mls/hr Q8HR LOI Administration Insulin Glargine 25 units 03/22/20 22:00 04/02/20 22:40 Lantus SUB-Q 25 units QHS LOI Administration Insulin Human Lispro 0 unit 03/20/20 16:30 04/03/20 18:30 Humalog SUB-Q 3 unit ACHS LOI Administration Protocol Insulin Human Lispro 8 unit 03/28/20 11:30 04/03/20 18:00 Humalog SUB-Q 8 unit AC LOI Administration Ipratropium Brick 0.5 mg 04/01/20 00:05 Atrovent IH Q6HRT PRN Shortness Of Breath Magnesium Hydroxide 30 ml 03/18/20 22:21 Milk Of Magnesia PO Q4H PRN Constipation Metoprolol Tartrate 50 mg 03/19/20 22:00 04/03/20 09:55 Metoprolol PO 50 mg BID LOI Administration Naloxone HCl 0.1 mg 03/19/20 12:44 Naloxone IV Q2MIN PRN Res Rate </= 8 or 02 SAT < 92% Ondansetron HCl 4 mg 03/18/20 22:21 04/02/20 10:04 Zofran IV 4 mg Q8H PRN Administration Nausea And Vomiting Pantoprazole Sodium 40 mg 03/20/20 10:00 04/03/20 10:20 Protonix PO 40 mg BID LOI Administration Pregabalin 150 mg 03/22/20 22:00 04/03/20 09:55 Pregabalin PO 150 mg BID LOI Administration Sodium Chloride 10 ml 03/19/20 10:00 04/03/20 10:20 Sodium Chloride Flush Syringe 10 Ml IV 10 ml BID LOI Administration Sodium Chloride 10 ml 03/18/20 22:21 03/22/20 19:52 Sodium Chloride Flush Syringe 10 Ml IV 10 ml PRN PRN Administration LINE FLUSH Zolpidem Tartrate 5 mg 03/31/20 19:09 Ambien PO QHS PRN Sleep Nutrition/Malnutrition Assess - Dietary Evaluation Nutrition/Malnutrition Findings: Nutrition Notes Start: 03/19/20 11:59 Freq: Status: Active Protocol: Document 04/02/20 14:45 DAYO (Rec: 04/02/20 14:47 DAYO [email or web address]) Nutrition Notes Initial or Follow up Reassessment Current Diagnosis COPD,Diabetes Other Pertinent Diagnosis (L) LE ischemia s/p (L) BKA, STARR, NSTEMI Current Diet Cardiac/Consistent CHO Labs/Tests Na 134 BUN 76 Cr 2 Pertinent Medications reviewed Height 6 ft Weight 126 kg Sharon Body Weight (kg) 80.90 BMI 37.6 Weight Status Obese Subjective/Other Information Unable to reach pt via phone. No PO intakes documented. Burn Absent Trauma Absent #1 Nutrition Diagnosis Increased nutrient needs ( specify in comment below) Diagnosis Progress(for reassessment Continues documentation) Is patient on ventilator? No Is Patient Ambulatory and/or Out of Bed No REE-([facility]-confined to bed) 2563.368 Kcal/Kg value to use for calculation 17 Approximate Energy Requirements Using 2142 kcal/Kg Calculation Used for Recommendations Kcal/kg Additional Notes Pro needs 1-1.2g/kg adjBW (not for amputation): 103-124g/day Fluid needs 1ml/kcal Nutrition Intervention Change Diet Order: Continue current diet order; honor food preferences Goal #1 PO intakes to meet at least 75 % energy and pro needs Goal #2 Healing of surgical site Follow-Up By: 04/08/20 Additional Comments F/U: intakes, wt
[2020-04-03] MEDS: INSULIN GLARGINE 100 UNITS/ML SUB-Q SCH (22:31)
[2020-04-04] MEDS: HYDROcodone/ACETAMINOPHEN 5-325 MG TAB PO PRN ×2 (02:11→10:51)
[2020-04-04 05:07] LABS: Basophils # (Auto) 0.1 K/mm3 (0.0-0.1); Basophils % (Auto) 0.6 % (0.0-1.8); Eosinophils # (Auto) 0.1 K/mm3 (0.0-0.4); Eosinophils % (Auto) 0.7 % (0.0-4.3); Hematocrit 26.1 % (35.5-45.6); Hemoglobin 8.4 gm/dl (11.8-15.2); Lymphocytes # (Auto) 2.1 K/mm3 (1.2-5.4); Lymphocytes % (Auto) 17.1 % (13.4-35.0); Mean Corpuscular HGB Conc 32 % (32-34); Mean Corpuscular Volume 91 fl (84-94); Monocytes # (Auto) 0.8 K/mm3 (0.0-0.8); Monocytes % (Auto) 6.2 % (0.0-7.3); Platelet Count 415 K/mm3 (140-440); Red Blood Count 2.88 M/mm3 (3.65-5.03); Red Cell Distribution Width 15.2 % (13.2-15.2)
[2020-04-04 05:13] LABS: Albumin 2.2 g/dL (3.9-5)
[2020-04-04] MEDS: PIPERACIL/TAZOBACTA 4.5/NS 100 4.5 GM/100 ML VIAL IV SCH ×3 (05:55→21:56)
--- NOTE | 2020-04-04 09:03 | Ultrasound Report ---
ULTRASOUND ABDOMEN, COMPLETE INDICATION: Transaminitis. COMPARISON: No relevant prior imaging study available. FINDINGS: Pancreas: No significant abnormality. Abdominal Aorta: No significant abnormality. IVC: No significant abnormality. Liver: Diffusely echogenic. Normal hepatopedal blood flow in the main portal vein. Gallbladder: Mild to moderate gallbladder wall thickening measuring up to 4 mm in thickness. Bile ducts: No significant abnormality. Common bile duct measures 5 mm. Kidneys: Right: Borderline atrophic. Left: Not well identified secondary to body habitus. Spleen: Not well identified secondary to bowel gas. Free fluid: Small left pleural effusion Additional Findings: None. IMPRESSION: 1. Fatty liver 2. Small pleural effusion 3. Mild to moderate gallbladder wall thickening, as above. No ulcerations are appreciated. If there i s strong clinical concern for cholecystitis a HIDA scan would be useful for further evaluation. Signer Name: Sivakumar Coates MD Signed: 04/04/2020 8:58 AM Workstation Name: [id number]
[2020-04-04] MEDS: BUDESONIDE 0.5 MG/2 ML NEBU IH SCH ×2 (10:22→21:02)
[2020-04-04] MEDS: ARFORMOTEROL 15 MCG/2 ML NEBU IH SCH ×2 (10:22→21:02)
[2020-04-04] MEDS: PANTOPRAZOLE 40 MG TAB PO SCH ×2 (10:51→21:57)
[2020-04-04] MEDS: METOPROLOL TARTRATE 50 MG TAB PO SCH ×2 (10:51→21:57)
[2020-04-04] MEDS: PREGABALIN 75 MG CAP PO SCH ×2 (10:52→21:57)
[2020-04-04] MEDS: CLOPIDOGREL 75 MG TAB PO SCH (10:52)
[2020-04-04] MEDS: APIXABAN 5 MG TAB PO SCH ×2 (10:53→21:57)
[2020-04-04] MEDS: INSULIN LISPRO 100 UNIT/ML VIAL 3 mL SUB-Q SCH ×3 (10:54→18:50)
[2020-04-04] MEDS: [UNRECOGNIZED DRUG - REMARK] SUB-Q SCH ×4 (10:54→23:56)
--- NOTE | 2020-04-04 11:12 | Progress Note ---
Assessment and Plan Acute limb ischemia S/P revascularization surgery. Obstructive sleep apnea. History of chronic obstructive pulmonary disease. Acute hypoxemic respiratory failure. Diabetes. History of coronary artery disease. Non-ST elevation myocardial infarction. Acute coronary syndrome. History of cerebrovascular accident. - increase ambulation as tolerated - wound care per WCN / RN - continue antiplatelet therapy with Eliquis and Plavix - no new issues otherwise, continue care as below; - further surgical intervention per Vascular team - accuchecks with glycemic control per SSI (While critically ill target blood glucose of 140-180 mg/dL; avoid hypoglycemia) - wean supplemental oxygen for target O2 sat's > 90% acutely - prn bronchodilators with pulmonary hygiene per RT - avoid benzodiazepine's, reduce the possibility of delirium - AB's per surgery rec's (No S&S of overwhelming sepsis) - prn analgesia per pain score - Maintenance of sleep-wake cycle, avoid delirium - aspiration precautions - G.I. & VTE prophylaxis - PT/OT/ROM exercises - mobility protocols for pressure ulcer prophylaxis - Monitor hemodynamics closely - continue other care per attending / other consultants - discharge planning ongoing concurrently - transferred to telemetry .... Re-evaluate in am & prn Subjective Date of service: 04/04/20 Principal diagnosis: Acute limb ischemia; STARR; COPD; Ac hypoxemic resp failure; DM II; NSTEMI Interval history: Patient is seen today for: Acute limb ischemia S/P revascularization surgery; STARR; COPD; Acute hypoxemic respiratory failure; DM II; NSTEMI; H/O CVA Seen and examined at bedside; 24hour events reviewed; nursing and respiratory care staff consulted; no adverse overnight events reported to me; resting peacefully in bed; + intermittent cough no hemoptysis; no N/V/F/C; denies chest pain Objective Vital Signs - 12hr 04/03/20 04/04/20 04/04/20 23:29 06:01 07:50 Temperature 98.0 F 98 F 97.8 F Pulse Rate 72 68 80 Respiratory 18 20 Rate Blood Pressure 116/80 127/87 Blood Pressure 141/68 [Left] O2 Sat by Pulse 99 97 Oximetry 04/04/20 10:51 Temperature Pulse Rate 80 Respiratory Rate Blood Pressure 127/87 Blood Pressure [Left] O2 Sat by Pulse Oximetry Constitutional: no acute distress, other (middle aged obese male with mildly increased respiratory effort at rest) Eyes: non-icteric ENT: oropharynx moist Neck: supple, no lymphadenopathy, no JVD Effort: mildly labored Ascultation: Bilateral: clear, diminished breath sounds Percussion: Bilateral: not dull Cardiovascular: regular rate and rhythm Gastrointestinal: normoactive bowel sounds, soft, non-tender, non-distended (protuberant) Integumentary: rash Extremities: cool, edema (right lower extremity), other (left BKA with clean dressing) Neurologic: normal mental status, non-focal exam, pupils equal and round, motor strength normal and Psychiatric: mood appropriate, affect normal CBC and BMP: 04/05/20 03:54 04/05/20 03:54 ABG, PT/INR, D-dimer: ABG ABG pH 7.405 pH Units (7.350-7.450) 03/20/20 04:35 ABG pCO2 40.3 mm Hg 03/20/20 04:35 ABG pO2 68.3 mm Hg (80.0-90.0) L 03/20/20 04:35 ABG O2 Saturation 94.3 % (95.0-99.0) L 03/20/20 04:35 PT/INR, D-dimer PT 12.7 Sec. (12.2-14.9) 03/19/20 08:08 INR 0.94 (0.87-1.13) 03/19/20 08:08 Abnormal lab findings: Abnormal Labs 03/18/20 03/18/20 03/18/20 18:28 18:28 20:56 WBC 12.3 H RBC Hgb Hct Lymph % (Auto) 11.0 L [place] % (Auto) 9.8 H [place] # 1.2 H Seg Neutrophils % 78.4 H Seg Neuts % (Manual) Lymphocytes % (Manual) Nucleated RBC % Seg Neutrophils # 9.6 H Seg Neutrophils # Man Lymphocytes # (Manual) Monocytes # (Manual) Eosinophils # (Manual) Heparin Anti-Xa Level ABG pO2 ABG HCO3 ABG O2 Saturation ABG Base Excess ABG Hemoglobin Oxyhemoglobin Sodium 132 L Potassium Chloride 91.9 L Carbon Dioxide 20 L BUN Creatinine 1.4 H Glucose 406 H POC Glucose Hemoglobin A1c Calcium AST ALT Alkaline Phosphatase Total Creatine Kinase 2727 H 2492 H CK-MB (CK-2) 135.9 H 107.2 H CK-MB (CK-2) Rel Index 4.3 H Troponin T 5.110 H* 3.960 H* D Total Protein Albumin Triglycerides 188 H LDL Cholesterol Direct 141 H 03/18/20 03/19/20 03/19/20 22:21 01:57 08:08 WBC RBC Hgb Hct Lymph % (Auto) [place] % (Auto) [place] # Seg Neutrophils % Seg Neuts % (Manual) Lymphocytes % (Manual) Nucleated RBC % Seg Neutrophils # Seg Neutrophils # Man Lymphocytes # (Manual) Monocytes # (Manual) Eosinophils # (Manual) Heparin Anti-Xa Level ABG pO2 ABG HCO3 ABG O2 Saturation ABG Base Excess ABG Hemoglobin Oxyhemoglobin Sodium Potassium Chloride Carbon Dioxide BUN Creatinine Glucose POC Glucose 317 H Hemoglobin A1c 11.0 H Calcium AST ALT Alkaline Phosphatase Total Creatine Kinase 7255 H CK-MB (CK-2) 79.3 H CK-MB (CK-2) Rel Index Troponin T 5.540 H* D Total Protein Albumin Triglycerides LDL Cholesterol Direct 03/19/20 03/19/20 03/19/20 08:08 08:08 08:08 WBC 13.3 H RBC Hgb Hct Lymph % (Auto) 10.7 L [place] % (Auto) 8.5 H [place] # 1.1 H Seg Neutrophils % 80.0 H Seg Neuts % (Manual) Lymphocytes % (Manual) Nucleated RBC % Seg Neutrophils # 10.6 H Seg Neutrophils # Man Lymphocytes # (Manual) Monocytes # (Manual) Eosinophils # (Manual) Heparin Anti-Xa Level 0.10 L ABG pO2 ABG HCO3 ABG O2 Saturation ABG Base Excess ABG Hemoglobin Oxyhemoglobin Sodium 133 L Potassium 5.1 H Chloride Carbon Dioxide 17 L BUN 23 H Creatinine Glucose 313 H POC Glucose Hemoglobin A1c Calcium AST ALT Alkaline Phosphatase Total Creatine Kinase CK-MB (CK-2) CK-MB (CK-2) Rel Index Troponin T Total Protein Albumin Triglycerides LDL Cholesterol Direct 03/19/20 03/19/20 03/19/20 15:40 18:23 21:32 WBC RBC Hgb Hct Lymph % (Auto) [place] % (Auto) [place] # Seg Neutrophils % Seg Neuts % (Manual) Lymphocytes % (Manual) Nucleated RBC % Seg Neutrophils # Seg Neutrophils # Man Lymphocytes # (Manual) Monocytes # (Manual) Eosinophils # (Manual) Heparin Anti-Xa Level < 0.10 L ABG pO2 ABG HCO3 18.3 L ABG O2 Saturation ABG Base Excess -5.4 L ABG Hemoglobin 12.2 L Oxyhemoglobin 94.6 L Sodium Potassium Chloride Carbon Dioxide BUN Creatinine Glucose POC Glucose 348 H Hemoglobin A1c Calcium AST ALT Alkaline Phosphatase Total Creatine Kinase CK-MB (CK-2) CK-MB (CK-2) Rel Index Troponin T Total Protein Albumin Triglycerides LDL Cholesterol Direct 03/20/20 03/20/20 03/20/20 04:35 05:12 05:12 WBC 11.1 H RBC 3.63 L Hgb 11.0 L Hct 32.7 L D Lymph % (Auto) [place] % (Auto) 8.1 H [place] # 0.9 H Seg Neutrophils % 75.8 H Seg Neuts % (Manual) Lymphocytes % (Manual) Nucleated RBC % Seg Neutrophils # 8.4 H Seg Neutrophils # Man Lymphocytes # (Manual) Monocytes # (Manual) Eosinophils # (Manual) Heparin Anti-Xa Level 0.28 L ABG pO2 68.3 L ABG HCO3 ABG O2 Saturation 94.3 L ABG Base Excess ABG Hemoglobin 7.1 L Oxyhemoglobin 92.3 L Sodium Potassium Chloride Carbon Dioxide BUN Creatinine Glucose POC Glucose Hemoglobin A1c Calcium AST ALT Alkaline Phosphatase Total Creatine Kinase CK-MB (CK-2) CK-MB (CK-2) Rel Index Troponin T Total Protein Albumin Triglycerides LDL Cholesterol Direct 03/20/20 03/20/20 03/20/20 05:12 07:49 12:15 WBC RBC Hgb Hct Lymph % (Auto) [place] % (Auto) [place] # Seg Neutrophils % Seg Neuts % (Manual) Lymphocytes % (Manual) Nucleated RBC % Seg Neutrophils # Seg Neutrophils # Man Lymphocytes # (Manual) Monocytes # (Manual) Eosinophils # (Manual) Heparin Anti-Xa Level ABG pO2 ABG HCO3 ABG O2 Saturation ABG Base Excess ABG Hemoglobin Oxyhemoglobin Sodium 134 L Potassium Chloride Carbon Dioxide 21 L BUN 23 H Creatinine Glucose 275 H POC Glucose 294 H 357 H Hemoglobin A1c Calcium AST ALT Alkaline Phosphatase Total Creatine Kinase CK-MB (CK-2) CK-MB (CK-2) Rel Index Troponin T 3.200 H* D Total Protein Albumin Triglycerides LDL Cholesterol Direct 03/20/20 03/20/20 03/21/20 17:16 22:08 04:44 WBC RBC Hgb Hct Lymph % (Auto) [place] % (Auto) [place] # Seg Neutrophils % Seg Neuts % (Manual) Lymphocytes % (Manual) Nucleated RBC % Seg Neutrophils # Seg Neutrophils # Man Lymphocytes # (Manual) Monocytes # (Manual) Eosinophils # (Manual) Heparin Anti-Xa Level ABG pO2 ABG HCO3 ABG O2 Saturation ABG Base Excess ABG Hemoglobin Oxyhemoglobin Sodium 136 L Potassium Chloride Carbon Dioxide 18 L BUN 26 H Creatinine Glucose 266 H POC Glucose 327 H 292 H Hemoglobin A1c Calcium 8.1 L AST ALT Alkaline Phosphatase Total Creatine Kinase CK-MB (CK-2) CK-MB (CK-2) Rel Index Troponin T Total Protein Albumin Triglycerides LDL Cholesterol Direct 03/21/20 03/21/20 03/21/20 07:50 12:25 15:53 WBC RBC Hgb Hct Lymph % (Auto) [place] % (Auto) [place] # Seg Neutrophils % Seg Neuts % (Manual) Lymphocytes % (Manual) Nucleated RBC % Seg Neutrophils # Seg Neutrophils # Man Lymphocytes # (Manual) Monocytes # (Manual) Eosinophils # (Manual) Heparin Anti-Xa Level ABG pO2 ABG HCO3 ABG O2 Saturation ABG Base Excess ABG Hemoglobin Oxyhemoglobin Sodium Potassium Chloride Carbon Dioxide BUN Creatinine Glucose POC Glucose 271 H 314 H 436 H Hemoglobin A1c Calcium AST ALT Alkaline Phosphatase Total Creatine Kinase CK-MB (CK-2) CK-MB (CK-2) Rel Index Troponin T Total Protein Albumin Triglycerides LDL Cholesterol Direct 03/21/20 03/21/20 03/22/20 17:44 21:55 04:33 WBC RBC Hgb 10.0 L Hct 29.4 L Lymph % (Auto) [place] % (Auto) [place] # Seg Neutrophils % Seg Neuts % (Manual) Lymphocytes % (Manual) Nucleated RBC % Seg Neutrophils # Seg Neutrophils # Man Lymphocytes # (Manual) Monocytes # (Manual) Eosinophils # (Manual) Heparin Anti-Xa Level ABG pO2 ABG HCO3 ABG O2 Saturation ABG Base Excess ABG Hemoglobin Oxyhemoglobin Sodium Potassium Chloride Carbon Dioxide BUN Creatinine Glucose POC Glucose 362 H 329 H Hemoglobin A1c Calcium AST ALT Alkaline Phosphatase Total Creatine Kinase CK-MB (CK-2) CK-MB (CK-2) Rel Index Troponin T Total Protein Albumin Triglycerides LDL Cholesterol Direct 03/22/20 03/22/20 03/22/20 08:57 14:12 19:57 WBC RBC Hgb Hct Lymph % (Auto) [place] % (Auto) [place] # Seg Neutrophils % Seg Neuts % (Manual) Lymphocytes % (Manual) Nucleated RBC % Seg Neutrophils # Seg Neutrophils # Man Lymphocytes # (Manual) Monocytes # (Manual) Eosinophils # (Manual) Heparin Anti-Xa Level ABG pO2 ABG HCO3 ABG O2 Saturation ABG Base Excess ABG Hemoglobin Oxyhemoglobin Sodium Potassium Chloride Carbon Dioxide BUN Creatinine Glucose POC Glucose 284 H 319 H 356 H Hemoglobin A1c Calcium AST ALT Alkaline Phosphatase Total Creatine Kinase CK-MB (CK-2) CK-MB (CK-2) Rel Index Troponin T Total Protein Albumin Triglycerides LDL Cholesterol Direct 03/22/20 03/23/20 03/23/20 21:44 08:18 12:46 WBC RBC Hgb Hct Lymph % (Auto) [place] % (Auto) [place] # Seg Neutrophils % Seg Neuts % (Manual) Lymphocytes % (Manual) Nucleated RBC % Seg Neutrophils # Seg Neutrophils # Man Lymphocytes # (Manual) Monocytes # (Manual) Eosinophils # (Manual) Heparin Anti-Xa Level ABG pO2 ABG HCO3 ABG O2 Saturation ABG Base Excess ABG Hemoglobin Oxyhemoglobin Sodium Potassium Chloride Carbon Dioxide BUN Creatinine Glucose POC Glucose 336 H 215 H 262 H Hemoglobin A1c Calcium AST ALT Alkaline Phosphatase Total Creatine Kinase CK-MB (CK-2) CK-MB (CK-2) Rel Index Troponin T Total Protein Albumin Triglycerides LDL Cholesterol Direct 03/23/20 03/23/20 03/24/20 15:56 22:05 02:35 WBC RBC Hgb 9.0 L Hct 25.8 L Lymph % (Auto) [place] % (Auto) [place] # Seg Neutrophils % Seg Neuts % (Manual) Lymphocytes % (Manual) Nucleated RBC % Seg Neutrophils # Seg Neutrophils # Man Lymphocytes # (Manual) Monocytes # (Manual) Eosinophils # (Manual) Heparin Anti-Xa Level ABG pO2 ABG HCO3 ABG O2 Saturation ABG Base Excess ABG Hemoglobin Oxyhemoglobin Sodium Potassium Chloride Carbon Dioxide BUN Creatinine Glucose POC Glucose 246 H 322 H Hemoglobin A1c Calcium AST ALT Alkaline Phosphatase Total Creatine Kinase CK-MB (CK-2) CK-MB (CK-2) Rel Index Troponin T Total Protein Albumin Triglycerides LDL Cholesterol Direct 03/24/20 03/24/20 03/24/20 07:38 11:45 16:02 WBC RBC Hgb Hct Lymph % (Auto) [place] % (Auto) [place] # Seg Neutrophils % Seg Neuts % (Manual) Lymphocytes % (Manual) Nucleated RBC % Seg Neutrophils # Seg Neutrophils # Man Lymphocytes # (Manual) Monocytes # (Manual) Eosinophils # (Manual) Heparin Anti-Xa Level ABG pO2 ABG HCO3 ABG O2 Saturation ABG Base Excess ABG Hemoglobin Oxyhemoglobin Sodium Potassium Chloride Carbon Dioxide BUN Creatinine Glucose POC Glucose 289 H 257 H 150 H Hemoglobin A1c Calcium AST ALT Alkaline Phosphatase Total Creatine Kinase CK-MB (CK-2) CK-MB (CK-2) Rel Index Troponin T Total Protein Albumin Triglycerides LDL Cholesterol Direct 03/24/20 03/25/20 03/25/20 21:24 04:06 07:39 WBC RBC Hgb Hct Lymph % (Auto) [place] % (Auto) [place] # Seg Neutrophils % Seg Neuts % (Manual) Lymphocytes % (Manual) Nucleated RBC % Seg Neutrophils # Seg Neutrophils # Man Lymphocytes # (Manual) Monocytes # (Manual) Eosinophils # (Manual) Heparin Anti-Xa Level 0.10 L ABG pO2 ABG HCO3 ABG O2 Saturation ABG Base Excess ABG Hemoglobin Oxyhemoglobin Sodium Potassium Chloride Carbon Dioxide BUN Creatinine Glucose POC Glucose 228 H 332 H Hemoglobin A1c Calcium AST ALT Alkaline Phosphatase Total Creatine Kinase CK-MB (CK-2) CK-MB (CK-2) Rel Index Troponin T Total Protein Albumin Triglycerides LDL Cholesterol Direct 03/25/20 03/25/20 03/25/20 08:13 09:30 11:59 WBC 13.1 H RBC 2.82 L Hgb 8.5 L Hct 26.1 L Lymph % (Auto) [place] % (Auto) [place] # Seg Neutrophils % Seg Neuts % (Manual) Lymphocytes % (Manual) Nucleated RBC % Seg Neutrophils # Seg Neutrophils # Man Lymphocytes # (Manual) Monocytes # (Manual) Eosinophils # (Manual) Heparin Anti-Xa Level ABG pO2 ABG HCO3 ABG O2 Saturation ABG Base Excess ABG Hemoglobin Oxyhemoglobin Sodium 131 L Potassium 5.3 H Chloride Carbon Dioxide 20 L BUN 39 H Creatinine 1.4 H Glucose 313 H POC Glucose 273 H Hemoglobin A1c Calcium 8.1 L AST ALT Alkaline Phosphatase Total Creatine Kinase CK-MB (CK-2) CK-MB (CK-2) Rel Index Troponin T Total Protein Albumin Triglycerides LDL Cholesterol Direct 03/25/20 03/25/20 03/25/20 13:54 15:58 18:21 WBC RBC Hgb Hct Lymph % (Auto) [place] % (Auto) [place] # Seg Neutrophils % Seg Neuts % (Manual) Lymphocytes % (Manual) Nucleated RBC % Seg Neutrophils # Seg Neutrophils # Man Lymphocytes # (Manual) Monocytes # (Manual) Eosinophils # (Manual) Heparin Anti-Xa Level ABG pO2 ABG HCO3 ABG O2 Saturation ABG Base Excess ABG Hemoglobin Oxyhemoglobin Sodium Potassium Chloride Carbon Dioxide BUN Creatinine Glucose POC Glucose 246 H 235 H 185 H Hemoglobin A1c Calcium AST ALT Alkaline Phosphatase Total Creatine Kinase CK-MB (CK-2) CK-MB (CK-2) Rel Index Troponin T Total Protein Albumin Triglycerides LDL Cholesterol Direct 03/25/20 03/26/20 03/26/20 20:45 05:15 06:59 WBC 17.4 H 15.6 H RBC 3.05 L 3.05 L Hgb 9.1 L 9.2 L Hct 28.2 L 27.9 L Lymph % (Auto) 8.9 L 8.9 L [place] % (Auto) [place] # 1.0 H Seg Neutrophils % 84.4 H 84.8 H Seg Neuts % (Manual) Lymphocytes % (Manual) Nucleated RBC % Seg Neutrophils # 14.7 H 13.2 H Seg Neutrophils # Man Lymphocytes # (Manual) Monocytes # (Manual) Eosinophils # (Manual) Heparin Anti-Xa Level ABG pO2 ABG HCO3 ABG O2 Saturation ABG Base Excess ABG Hemoglobin Oxyhemoglobin Sodium Potassium Chloride Carbon Dioxide BUN Creatinine Glucose POC Glucose 178 H Hemoglobin A1c Calcium AST ALT Alkaline Phosphatase Total Creatine Kinase CK-MB (CK-2) CK-MB (CK-2) Rel Index Troponin T Total Protein Albumin Triglycerides LDL Cholesterol Direct 03/26/20 03/26/20 03/26/20 06:59 07:43 11:56 WBC RBC Hgb Hct Lymph % (Auto) [place] % (Auto) [place] # Seg Neutrophils % Seg Neuts % (Manual) Lymphocytes % (Manual) Nucleated RBC % Seg Neutrophils # Seg Neutrophils # Man Lymphocytes # (Manual) Monocytes # (Manual) Eosinophils # (Manual) Heparin Anti-Xa Level ABG pO2 ABG HCO3 ABG O2 Saturation ABG Base Excess ABG Hemoglobin Oxyhemoglobin Sodium 131 L Potassium 5.8 H Chloride Carbon Dioxide 16 L BUN 42 H Creatinine 1.4 H Glucose 163 H POC Glucose 170 H 198 H Hemoglobin A1c Calcium 8.0 L AST ALT Alkaline Phosphatase Total Creatine Kinase CK-MB (CK-2) CK-MB (CK-2) Rel Index Troponin T Total Protein Albumin Triglycerides LDL Cholesterol Direct 03/26/20 03/26/20 03/26/20 13:58 16:16 21:00 WBC RBC Hgb Hct Lymph % (Auto) [place] % (Auto) [place] # Seg Neutrophils % Seg Neuts % (Manual) Lymphocytes % (Manual) Nucleated RBC % Seg Neutrophils # Seg Neutrophils # Man Lymphocytes # (Manual) Monocytes # (Manual) Eosinophils # (Manual) Heparin Anti-Xa Level ABG pO2 ABG HCO3 ABG O2 Saturation ABG Base Excess ABG Hemoglobin Oxyhemoglobin Sodium 128 L Potassium 6.0 H Chloride Carbon Dioxide 15 L BUN 45 H Creatinine 1.4 H Glucose 190 H POC Glucose 184 H 192 H Hemoglobin A1c Calcium 8.2 L AST ALT Alkaline Phosphatase Total Creatine Kinase CK-MB (CK-2) CK-MB (CK-2) Rel Index Troponin T Total Protein Albumin Triglycerides LDL Cholesterol Direct 03/27/20 03/27/20 03/27/20 08:32 11:51 14:39 WBC 22.9 H RBC 2.68 L Hgb 7.9 L Hct 24.7 L Lymph % (Auto) [place] % (Auto) [place] # Seg Neutrophils % Seg Neuts % (Manual) Lymphocytes % (Manual) Nucleated RBC % Seg Neutrophils # Seg Neutrophils # Man Lymphocytes # (Manual) Monocytes # (Manual) Eosinophils # (Manual) Heparin Anti-Xa Level ABG pO2 ABG HCO3 ABG O2 Saturation ABG Base Excess ABG Hemoglobin Oxyhemoglobin Sodium Potassium Chloride Carbon Dioxide BUN Creatinine Glucose POC Glucose 233 H 252 H Hemoglobin A1c Calcium AST ALT Alkaline Phosphatase Total Creatine Kinase CK-MB (CK-2) CK-MB (CK-2) Rel Index Troponin T Total Protein Albumin Triglycerides LDL Cholesterol Direct 03/27/20 03/27/20 03/27/20 14:39 15:19 21:35 WBC RBC Hgb Hct Lymph % (Auto) [place] % (Auto) [place] # Seg Neutrophils % Seg Neuts % (Manual) Lymphocytes % (Manual) Nucleated RBC % Seg Neutrophils # Seg Neutrophils # Man Lymphocytes # (Manual) Monocytes # (Manual) Eosinophils # (Manual) Heparin Anti-Xa Level ABG pO2 ABG HCO3 ABG O2 Saturation ABG Base Excess ABG Hemoglobin Oxyhemoglobin Sodium 133 L Potassium 5.5 H Chloride Carbon Dioxide 16 L BUN 46 H Creatinine 1.4 H Glucose 225 H POC Glucose 239 H 202 H Hemoglobin A1c Calcium 8.2 L AST ALT Alkaline Phosphatase Total Creatine Kinase CK-MB (CK-2) CK-MB (CK-2) Rel Index Troponin T Total Protein Albumin Triglycerides LDL Cholesterol Direct 03/28/20 03/28/20 03/28/20 07:39 07:39 08:36 WBC 22.4 H RBC 2.71 L Hgb 7.9 L Hct 24.5 L Lymph % (Auto) [place] % (Auto) [place] # Seg Neutrophils % Seg Neuts % (Manual) 88.0 H Lymphocytes % (Manual) 5.0 L Nucleated RBC % Seg Neutrophils # Seg Neutrophils # Man 19.7 H Lymphocytes # (Manual) 1.1 L Monocytes # (Manual) 1.6 H Eosinophils # (Manual) Heparin Anti-Xa Level ABG pO2 ABG HCO3 ABG O2 Saturation ABG Base Excess ABG Hemoglobin Oxyhemoglobin Sodium 134 L Potassium Chloride Carbon Dioxide 19 L BUN 47 H Creatinine Glucose 240 H POC Glucose 253 H Hemoglobin A1c Calcium 7.8 L AST ALT Alkaline Phosphatase Total Creatine Kinase CK-MB (CK-2) CK-MB (CK-2) Rel Index Troponin T Total Protein Albumin Triglycerides LDL Cholesterol Direct 03/28/20 03/28/20 03/28/20 11:54 17:08 21:17 WBC RBC Hgb Hct Lymph % (Auto) [place] % (Auto) [place] # Seg Neutrophils % Seg Neuts % (Manual) Lymphocytes % (Manual) Nucleated RBC % Seg Neutrophils # Seg Neutrophils # Man Lymphocytes # (Manual) Monocytes # (Manual) Eosinophils # (Manual) Heparin Anti-Xa Level ABG pO2 ABG HCO3 ABG O2 Saturation ABG Base Excess ABG Hemoglobin Oxyhemoglobin Sodium Potassium Chloride Carbon Dioxide BUN Creatinine Glucose POC Glucose 306 H 178 H 186 H Hemoglobin A1c Calcium AST ALT Alkaline Phosphatase Total Creatine Kinase CK-MB (CK-2) CK-MB (CK-2) Rel Index Troponin T Total Protein Albumin Triglycerides LDL Cholesterol Direct 03/29/20 03/29/20 03/29/20 08:32 12:04 14:19 WBC 21.5 H RBC 2.82 L Hgb 8.4 L Hct 26.1 L Lymph % (Auto) [place] % (Auto) [place] # Seg Neutrophils % Seg Neuts % (Manual) 85.0 H Lymphocytes % (Manual) 11.0 L Nucleated RBC % 3.0 H Seg Neutrophils # Seg Neutrophils # Man 18.3 H Lymphocytes # (Manual) Monocytes # (Manual) Eosinophils # (Manual) 0.6 H Heparin Anti-Xa Level ABG pO2 ABG HCO3 ABG O2 Saturation ABG Base Excess ABG Hemoglobin Oxyhemoglobin Sodium Potassium Chloride Carbon Dioxide BUN Creatinine Glucose POC Glucose 110 H 263 H Hemoglobin A1c Calcium AST ALT Alkaline Phosphatase Total Creatine Kinase CK-MB (CK-2) CK-MB (CK-2) Rel Index Troponin T Total Protein Albumin Triglycerides LDL Cholesterol Direct 03/29/20 03/29/20 03/30/20 16:17 22:57 11:00 WBC RBC Hgb Hct Lymph % (Auto) [place] % (Auto) [place] # Seg Neutrophils % Seg Neuts % (Manual) Lymphocytes % (Manual) Nucleated RBC % Seg Neutrophils # Seg Neutrophils # Man Lymphocytes # (Manual) Monocytes # (Manual) Eosinophils # (Manual) Heparin Anti-Xa Level ABG pO2 ABG HCO3 ABG O2 Saturation ABG Base Excess ABG Hemoglobin Oxyhemoglobin Sodium Potassium Chloride Carbon Dioxide BUN Creatinine Glucose POC Glucose 109 H 194 H 129 H Hemoglobin A1c Calcium AST ALT Alkaline Phosphatase Total Creatine Kinase CK-MB (CK-2) CK-MB (CK-2) Rel Index Troponin T Total Protein Albumin Triglycerides LDL Cholesterol Direct 03/30/20 03/30/20 03/31/20 15:16 21:54 04:27 WBC 15.8 H RBC 2.62 L Hgb 7.7 L Hct 24.1 L Lymph % (Auto) 9.4 L [place] % (Auto) [place] # Seg Neutrophils % 84.4 H Seg Neuts % (Manual) Lymphocytes % (Manual) Nucleated RBC % Seg Neutrophils # 13.3 H Seg Neutrophils # Man Lymphocytes # (Manual) Monocytes # (Manual) Eosinophils # (Manual) Heparin Anti-Xa Level ABG pO2 ABG HCO3 ABG O2 Saturation ABG Base Excess ABG Hemoglobin Oxyhemoglobin Sodium Potassium Chloride Carbon Dioxide BUN Creatinine Glucose POC Glucose 115 H 166 H Hemoglobin A1c Calcium AST ALT Alkaline Phosphatase Total Creatine Kinase CK-MB (CK-2) CK-MB (CK-2) Rel Index Troponin T Total Protein Albumin Triglycerides LDL Cholesterol Direct 03/31/20 03/31/20 03/31/20 04:27 07:37 11:46 WBC RBC Hgb Hct Lymph % (Auto) [place] % (Auto) [place] # Seg Neutrophils % Seg Neuts % (Manual) Lymphocytes % (Manual) Nucleated RBC % Seg Neutrophils # Seg Neutrophils # Man Lymphocytes # (Manual) Monocytes # (Manual) Eosinophils # (Manual) Heparin Anti-Xa Level ABG pO2 ABG HCO3 ABG O2 Saturation ABG Base Excess ABG Hemoglobin Oxyhemoglobin Sodium 133 L Potassium Chloride 96.6 L Carbon Dioxide 18 L BUN 75 H Creatinine 2.5 H D Glucose 129 H POC Glucose 156 H 224 H Hemoglobin A1c Calcium 8.0 L AST ALT Alkaline Phosphatase Total Creatine Kinase CK-MB (CK-2) CK-MB (CK-2) Rel Index Troponin T Total Protein Albumin Triglycerides LDL Cholesterol Direct 04/01/20 04/01/20 04/01/20 08:34 10:52 10:52 WBC 12.9 H RBC 2.75 L Hgb 8.2 L Hct 24.8 L Lymph % (Auto) 10.6 L [place] % (Auto) [place] # Seg Neutrophils % 83.7 H Seg Neuts % (Manual) Lymphocytes % (Manual) Nucleated RBC % Seg Neutrophils # 10.8 H Seg Neutrophils # Man Lymphocytes # (Manual) Monocytes # (Manual) Eosinophils # (Manual) Heparin Anti-Xa Level ABG pO2 ABG HCO3 ABG O2 Saturation ABG Base Excess ABG Hemoglobin Oxyhemoglobin Sodium 131 L Potassium Chloride 96.1 L Carbon Dioxide 17 L BUN 77 H Creatinine 2.3 H Glucose 205 H POC Glucose 110 H Hemoglobin A1c Calcium 7.9 L AST ALT Alkaline Phosphatase Total Creatine Kinase CK-MB (CK-2) CK-MB (CK-2) Rel Index Troponin T Total Protein Albumin Triglycerides LDL Cholesterol Direct 04/01/20 04/01/20 04/01/20 12:15 17:22 20:47 WBC RBC Hgb Hct Lymph % (Auto) [place] % (Auto) [place] # Seg Neutrophils % Seg Neuts % (Manual) Lymphocytes % (Manual) Nucleated RBC % Seg Neutrophils # Seg Neutrophils # Man Lymphocytes # (Manual) Monocytes # (Manual) Eosinophils # (Manual) Heparin Anti-Xa Level ABG pO2 ABG HCO3 ABG O2 Saturation ABG Base Excess ABG Hemoglobin Oxyhemoglobin Sodium Potassium Chloride Carbon Dioxide BUN Creatinine Glucose POC Glucose 201 H 219 H 156 H Hemoglobin A1c Calcium AST ALT Alkaline Phosphatase Total Creatine Kinase CK-MB (CK-2) CK-MB (CK-2) Rel Index Troponin T Total Protein Albumin Triglycerides LDL Cholesterol Direct 04/02/20 04/02/20 04/02/20 05:44 05:44 11:32 WBC 15.8 H RBC 2.81 L Hgb 8.2 L Hct 25.7 L Lymph % (Auto) [place] % (Auto) [place] # 0.9 H Seg Neutrophils % 77.7 H Seg Neuts % (Manual) Lymphocytes % (Manual) Nucleated RBC % Seg Neutrophils # 12.3 H Seg Neutrophils # Man Lymphocytes # (Manual) Monocytes # (Manual) Eosinophils # (Manual) Heparin Anti-Xa Level ABG pO2 ABG HCO3 ABG O2 Saturation ABG Base Excess ABG Hemoglobin Oxyhemoglobin Sodium 134 L Potassium Chloride Carbon Dioxide 19 L BUN 76 H Creatinine 2.0 H Glucose POC Glucose 116 H Hemoglobin A1c Calcium 8.0 L AST 291 H ALT 169 H Alkaline Phosphatase 256 H Total Creatine Kinase CK-MB (CK-2) CK-MB (CK-2) Rel Index Troponin T Total Protein 6.1 L Albumin 2.2 L Triglycerides LDL Cholesterol Direct 04/02/20 04/02/20 04/03/20 16:56 22:03 08:13 WBC RBC Hgb Hct Lymph % (Auto) [place] % (Auto) [place] # Seg Neutrophils % Seg Neuts % (Manual) Lymphocytes % (Manual) Nucleated RBC % Seg Neutrophils # Seg Neutrophils # Man Lymphocytes # (Manual) Monocytes # (Manual) Eosinophils # (Manual) Heparin Anti-Xa Level ABG pO2 ABG HCO3 ABG O2 Saturation ABG Base Excess ABG Hemoglobin Oxyhemoglobin Sodium Potassium Chloride Carbon Dioxide BUN Creatinine Glucose POC Glucose 141 H 152 H 126 H Hemoglobin A1c Calcium AST ALT Alkaline Phosphatase Total Creatine Kinase CK-MB (CK-2) CK-MB (CK-2) Rel Index Troponin T Total Protein Albumin Triglycerides LDL Cholesterol Direct 04/03/20 04/03/20 04/03/20 12:11 16:26 21:33 WBC RBC Hgb Hct Lymph % (Auto) [place] % (Auto) [place] # Seg Neutrophils % Seg Neuts % (Manual) Lymphocytes % (Manual) Nucleated RBC % Seg Neutrophils # Seg Neutrophils # Man Lymphocytes # (Manual) Monocytes # (Manual) Eosinophils # (Manual) Heparin Anti-Xa Level ABG pO2 ABG HCO3 ABG O2 Saturation ABG Base Excess ABG Hemoglobin Oxyhemoglobin Sodium Potassium Chloride Carbon Dioxide BUN Creatinine Glucose POC Glucose 139 H 164 H 147 H Hemoglobin A1c Calcium AST ALT Alkaline Phosphatase Total Creatine Kinase CK-MB (CK-2) CK-MB (CK-2) Rel Index Troponin T Total Protein Albumin Triglycerides LDL Cholesterol Direct 04/04/20 04/04/20 04:29 04:29 WBC 12.3 H RBC 2.88 L Hgb 8.4 L Hct 26.1 L Lymph % (Auto) [place] % (Auto) [place] # Seg Neutrophils % 75.4 H Seg Neuts % (Manual) Lymphocytes % (Manual) Nucleated RBC % Seg Neutrophils # 9.3 H Seg Neutrophils # Man Lymphocytes # (Manual) Monocytes # (Manual) Eosinophils # (Manual) Heparin Anti-Xa Level ABG pO2 ABG HCO3 ABG O2 Saturation ABG Base Excess ABG Hemoglobin Oxyhemoglobin Sodium 136 L Potassium Chloride Carbon Dioxide 19 L BUN 71 H Creatinine 1.7 H Glucose POC Glucose Hemoglobin A1c Calcium 8.0 L AST 673 H ALT 252 H Alkaline Phosphatase 311 H Total Creatine Kinase CK-MB (CK-2) CK-MB (CK-2) Rel Index Troponin T Total Protein Albumin 2.2 L Triglycerides LDL Cholesterol Direct Allied health notes reviewed: nursing
--- NOTE | 2020-04-04 21:43 | Progress Note ---
Assessment and Plan Assessment and plan: --Transaminitis; unknown etiology, slowly trend Abdominal ultrasound, fatty liver, thickening of gallbladder Suspect cholecystitis, consult GI and surgeon Check HIDA scan --Anemia; Current Visit: Yes Status: Acute Gradual l drop in H&H, closely monitor and transfuse as needed --Hypotension; Current Visit: Yes Status: Acute patient FAMILY [employer] PROFESSOR pump on hold due to hypotension And give low-dose Dilaudid every 6 hours as needed for pain. Closely monitor blood pressures, fluid bolus as needed --Acute kidney injury; vasomotor nephropathy Current Visit: Yes Status: Acute Gentle hydration, monitor renal function Avoid nephrotoxins, nephrology consult if needed --Hyperkalemia; resolved Current Visit: Yes Status: Acute Monitor electrolytes. --Insomnia; Current Visit: Yes Status: Acute Optimal pain medications, sleeping aid Ambien 5 mg nightly --Acute left lower extremity ischemia,s/p Lt BKA Current Visit: Yes Status: Acute 03/19/2020 status post endovascular revascularization. 03/19/2020 s/p left LE, 4 compartment fasciotomy per vascular 03/25/2020 s/p left BKA on --SIRS; without organ dysfunction Current Visit: Yes Status: Acute leukocytosis trending down, continue Zosyn tachycardia, resolved --Non-ST elevation [place] : Current Visit: Yes Status: Acute Patient has history of CABG Cardiology evaluated, conservative management --Acute systolic CHF; EF 30-35%% Current Visit: Yes Status: Acute Beta-blockers, BIJAN inhibitor, diuretics Improved -- Hyperglycemia due to diabetes mellitus Current Visit: Yes Status: Acute Accu-Chek sliding scale coverage ADA diet Long-acting insulin as needed, U1j---98.0 --Nicotine dependence Current Visit: Yes Status: Acute Smoking cessation nicotine patch as needed --DVT prophylaxis Current Visit: Yes Status: Acute Patient currently on anticoagulation. -- Full code status Current Visit: Yes Status: Acute Patient is on heparin drip Discharge planning issues Disposition ;acute rehab placement, insurance did not approve Planning SNF placement Monitor closely and adjust management as needed Plan of care reviewed with the patient and his nurse 03/19/2020 status post endovascular revascularization. 03/19/2020 s/p left lower extremity 4 compartment fasciotomy 03/25/2020; s/p left BKA on 03/26/20; evaluated by PT, recommend acute rehab 03/29/20; acute rehab facility from [facility] evaluated the patient Patient is not ready for acute rehab, they will reevaluate 03/30/20; complains of insomnia, add Ambien 03/31; patient is hypotensive, FAMILY [employer]SUM[employer] SCI[employer] PROFESSOR pump discontinued. Added Dilaudid IV as needed 04/01; patient has worsening renal function, and drop in H&H, closely monitor transfuse as needed 04/02; insurance did not approve acute rehab, SNF placement is being processed 04/03: Patient has elevated LFTs WBC remain high, abdominal ultrasound 04/04; abdominal ultrasound findings noted, fatty liver, thickened gallbladder possible cholecystitis HIDA scan requested, discussed with Dr. Rhodes for further evaluation and recommendation History Interval history: I have seen and examined the patient at the bedside Patient's chart and medications reviewed Patient has elevated LFTs, abdominal ultrasound obtained Vital signs noted Hospitalist Physical - Constitutional Vitals: Temp Pulse Resp BP Pulse Ox 98.0 F 70 16 120/82 100 04/04/20 19:22 04/04/20 21:02 04/04/20 21:02 04/04/20 19:22 04/04/20 21:03 General appearance: Present: no acute distress, well-nourished, obese (Morbidly) - EENT Eyes: Present: PERRL, EOM intact - Neck Neck: Present: supple, normal ROM - Respiratory Respiratory effort: normal Respiratory: bilateral: diminished, rhonchi, negative: rales, wheezing - Cardiovascular Rhythm: regular Heart Sounds: Present: S1 & S2 - Extremities Extremities: no ischemia, No edema, abnormal (Status post left BKA) - Abdominal General gastrointestinal: soft, non-tender, non-distended, normal bowel sounds - Integumentary Integumentary: Present: clear, warm - Psychiatric Psychiatric: appropriate mood/affect, cooperative - Neurologic Neurologic: CNII-XII intact, moves all extremities HEART Score - HEART Score Troponin: Troponin T 3.200 ng/mL (0.00-0.029) H* D 03/20/20 05:12 Results - Labs CBC & Chem 7: 04/04/20 04:29 04/04/20 04:29 Labs: Laboratory Last Values WBC 12.3 K/mm3 (4.5-11.0) H 04/04/20 04:29 RBC 2.88 M/mm3 (3.65-5.03) L 04/04/20 04:29 Hgb 8.4 gm/dl (11.8-15.2) L 04/04/20 04:29 Hct 26.1 % (35.5-45.6) L 04/04/20 04:29 MCV 91 fl (84-94) 04/04/20 04: MCH 29 pg (28-32) 04/04/20 04: MCHC 32 % (32-34) 04/04/20 04: RDW 15.2 % (13.2-15.2) 04/04/20 04:29 Plt Count 415 K/mm3 (140-440) 04/04/20 04: Lymph % (Auto) 17.1 % (13.4-35.0) 04/04/20 04: [place] % (Auto) 6.2 % (0.0-7.3) 04/04/20 04: Eos % (Auto) 0.7 % (0.0-4.3) 04/04/20 04: Baso % (Auto) 0.6 % (0.0-1.8) 04/04/20 04: Lymph # 2.1 K/mm3 (1.2-5.4) 04/04/20 04: [place] # 0.8 K/mm3 (0.0-0.8) 04/04/20 04: Eos # 0.1 K/mm3 (0.0-0.4) 04/04/20 04: Baso # 0.1 K/mm3 (0.0-0.1) 04/04/20 04:29 Add Manual Diff Complete 03/29/20 14:19 Total Counted 100 03/29/20 14:19 Seg Neutrophils % 75.4 % (40.0-70.0) H 04/04/20 04:29 Seg Neuts % (Manual) 85.0 % (40.0-70.0) H 03/29/20 14:19 Band Neutrophils % 0 % 03/29/20 14:19 Lymphocytes % (Manual) 11.0 % (13.4-35.0) L 03/29/20 14:19 Reactive Lymphs % (Man) 0 % 03/29/20 14:19 Monocytes % (Manual) 1.0 % (0.0-7.3) 03/29/20 14:19 Eosinophils % (Manual) 3.0 % (0.0-4.3) 03/29/20 14:19 Basophils % (Manual) 0 % (0.0-1.8) 03/29/20 14:19 Metamyelocytes % 0 % 03/29/20 14:19 Myelocytes % 0 % 03/29/20 14:19 Promyelocytes % 0 % 03/29/20 14:19 Blast Cells % 0 % 03/29/20 14:19 Nucleated RBC % 3.0 % (0.0-0.9) H 03/29/20 14:19 Seg Neutrophils # 9.3 K/mm3 (1.8-7.7) H 04/04/20 04:29 Seg Neutrophils # Man 18.3 K/mm3 (1.8-7.7) H 03/29/20 14:19 Band Neutrophils # 0.0 K/mm3 03/29/20 14:19 Lymphocytes # (Manual) 2.4 K/mm3 (1.2-5.4) 03/29/20 14:19 Abs React Lymphs (Man) 0.0 K/mm3 03/29/20 14:19 Monocytes # (Manual) 0.2 K/mm3 (0.0-0.8) 03/29/20 14:19 Eosinophils # (Manual) 0.6 K/mm3 (0.0-0.4) H 03/29/20 14:19 Basophils # (Manual) 0.0 K/mm3 (0.0-0.1) 03/29/20 14:19 Metamyelocytes # 0.0 K/mm3 03/29/20 14:19 Myelocytes # 0.0 K/mm3 03/29/20 14:19 Promyelocytes # 0.0 K/mm3 03/29/20 14:19 Blast Cells # 0.0 K/mm3 03/29/20 14:19 WBC Morphology Not Reportable 03/29/20 14:19 Hypersegmented Neuts Not Reportable 03/29/20 14:19 Hyposegmented Neuts Not Reportable 03/29/20 14:19 Hypogranular Neuts Not Reportable 03/29/20 14:19 Smudge Cells Not Reportable 03/29/20 14:19 Toxic Granulation Not Reportable 03/29/20 14:19 Toxic Vacuolation Not Reportable 03/29/20 14:19 Dohle Bodies Not Reportable 03/29/20 14:19 Pelger-Huet Anomaly Not Reportable 03/29/20 14:19 Ananya Rods Not Reportable 03/29/20 14:19 Platelet Estimate Consistent w auto 03/29/20 14:19 Clumped Platelets Not Reportable 03/29/20 14:19 Plt Clumps, EDTA Not Reportable 03/29/20 14:19 Large Platelets Not Reportable 03/29/20 14:19 Giant Platelets Not Reportable 03/29/20 14:19 Platelet Satelliting Not Reportable 03/29/20 14:19 Plt Morphology Comment Not Reportable 03/29/20 14:19 RBC Morphology Not Reportable 03/29/20 14:19 Dimorphic RBCs Not Reportable 03/29/20 14:19 Polychromasia Not Reportable 03/29/20 14:19 Hypochromasia Not Reportable 03/29/20 14:19 Poikilocytosis Not Reportable 03/29/20 14:19 Anisocytosis 1+ 03/29/20 14:19 Microcytosis Not Reportable 03/29/20 14:19 Macrocytosis Not Reportable 03/29/20 14:19 Spherocytes Not Reportable 03/29/20 14:19 Pappenheimer Bodies Not Reportable 03/29/20 14:19 Sickle Cells Not Reportable 03/29/20 14:19 Target Cells Not Reportable 03/29/20 14:19 Tear Drop Cells Not Reportable 03/29/20 14:19 Ovalocytes Not Reportable 03/29/20 14:19 Helmet Cells Not Reportable 03/29/20 14:19 [place] Bodies Not Reportable 03/29/20 14:19 [place] Rings Not Reportable 03/29/20 14:19 [place] Cells Not Reportable 03/29/20 14:19 Bite Cells Not Reportable 03/29/20 14:19 Crenated Cell Not Reportable 03/29/20 14:19 Elliptocytes Not Reportable 03/29/20 14:19 Acanthocytes (Spur) Not Reportable 03/29/20 14:19 Rouleaux Not Reportable 03/29/20 14:19 Hemoglobin C Crystals Not Reportable 03/29/20 14:19 Schistocytes Not Reportable 03/29/20 14:19 Malaria parasites Not Reportable 03/29/20 14:19 Steven Bodies Not Reportable 03/29/20 14:19 Hem Pathologist Commnt No 03/29/20 14:19 PT 12.7 Sec. (12.2-14.9) 03/19/20 08:08 INR 0.94 (0.87-1.13) 03/19/20 08:08 APTT 27.7 Sec. (24.2-36.6) 03/18/20 18:28 Heparin Anti-Xa Level 0.10 U.I./ml (0.3-0.7) L 03/25/20 04:06 ABG pH 7.405 pH Units (7.350-7.450) 03/20/20 04:35 ABG pCO2 40.3 mm Hg 03/20/20 04:35 ABG pO2 68.3 mm Hg (80.0-90.0) L 03/20/20 04:35 ABG HCO3 24.6 mmol/L (20.0-26.0) 03/20/20 04:35 ABG O2 Saturation 94.3 % (95.0-99.0) L 03/20/20 04:35 ABG O2 Content 9.3 (0.0-44) 03/20/20 04:35 ABG Base Excess -0.1 mmol/L (-2.0-3.0) 03/20/20 04:35 ABG Hemoglobin 7.1 gm/dl (14.0-18.0) L 03/20/20 04:35 ABG Carboxyhemoglobin 1.8 % (0.0-5.0) 03/20/20 04:35 ABG Methemoglobin 0.4 % (0.0-1.5) 03/20/20 04:35 Oxyhemoglobin 92.3 % (95.0-99.0) L 03/20/20 04:35 FiO2 35 % 03/20/20 04:35 Sodium 136 mmol/L (137-145) L 04/04/20 04:29 Potassium 5.0 mmol/L (3.6-5.0) 04/04/20 04:29 Chloride 101.2 mmol/L (98-107) 04/04/20 04:29 Carbon Dioxide 19 mmol/L (22-30) L 04/04/20 04:29 Anion Gap 21 mmol/L 04/04/20 04:29 BUN 71 mg/dL (9-20) H 04/04/20 04:29 Creatinine 1.7 mg/dL (0.8-1.3) H 04/04/20 04:29 Estimated GFR 42 ml/min 04/04/20 04:29 BUN/Creatinine Ratio 42 % 04/04/20 04:29 Glucose 81 mg/dL (75-100) 04/04/20 04:29 POC Glucose 131 (70-105) H 04/04/20 20:58 Hemoglobin A1c 11.0 % (4-6) H 03/18/20 22:21 Calcium 8.0 mg/dL (8.4-10.2) L 04/04/20 04:29 Magnesium 2.20 mg/dL (1.7-2.3) 03/28/20 07:39 Total Bilirubin 0.80 mg/dL (0.1-1.2) 04/04/20 04:29 AST 673 units/L (5-40) H 04/04/20 04:29 ALT 252 units/L (7-56) H 04/04/20 04:29 Alkaline Phosphatase 311 units/L (35-129) H 04/04/20 04:29 Total Creatine Kinase 7255 units/L (55-170) H 03/19/20 08:08 CK-MB (CK-2) 79.3 ng/mL (0.0-4.0) H 03/19/20 08:08 CK-MB (CK-2) Rel Index 1.0 (0-4) 03/19/20 08:08 Troponin T 3.200 ng/mL (0.00-0.029) H* D 03/20/20 05:12 Total Protein 6.4 g/dL (6.3-8.2) 04/04/20 04:29 Albumin 2.2 g/dL (3.9-5) L 04/04/20 04:29 Albumin/Globulin Ratio 0.5 % 04/04/20 04:29 Triglycerides 188 mg/dL (2-149) H 03/18/20 18:28 Cholesterol 199 mg/dL (50-199) 03/18/20 18:28 LDL Cholesterol Direct 141 mg/dL (50-130) H 03/18/20 18:28 HDL Cholesterol 47 mg/dL (40-59) 03/18/20 18:28 Cholesterol/HDL Ratio 4.23 % 03/18/20 18:28 Coronavirus (PCR) Negative (Negative) 04/03/20 08:00 Blood Type B POSITIVE 03/25/20 11:42 Antibody Screen Negative 03/25/20 11:42 - Diagnostic Impressions Diagnostic Impressions: Echocardiogram 03/19/20 12:49 Transthoracic Echocardiogram Indication: CAD and Abnormal EKG HR: 110 Conclusions *The study is technically limited due to patient body habitus. *The left ventricular chamber size is mildly dilated. *Global left ventricular systolic function is moderate to severely decreased. *The estimated ejection fraction is 30-35%. *The basal inferolateral, and basal inferior wall segments are normal. *The mid inferolateral, mid inferior, apical lateral, and apical inferior wall segments are akinetic. *The left atrial chamber size is normal. Findings Procedure Info: The study is technically limited due to patient body habitus. The study was technically limited due to the patient's inability to lay in the left lateral decubitus position. Left Ventricle: The left ventricular chamber size is mildly dilated. Global left ventricular systolic function is moderate to severely decreased. The estimated ejection fraction is 30-35%. The basal inferolateral, and basal inferior wall segments are normal. The mid inferolateral, mid inferior, apical lateral, and apical inferior wall segments are akinetic. Left Atrium: The left atrial chamber size is normal. Right Ventricle: The right ventricle is not well visualized. Right Atrium: The right atrium is not well visualized. The right atrial cavity size is normal. Aortic Valve: The aortic valve is trileaflet. Mitral Valve: The mitral valve leaflets are moderately thickened. There is mild mitral regurgitation. Tricuspid Valve: The tricuspid valve is not well visualized. There is trace tricuspid regurgitation. Pulmonic Valve: The pulmonic valve is not well visualized. Pericardium: There is no pericardial effusion. Aorta: The aorta appears normal. Venous: The venous system is not well visualized. Contrast: Definity was used to optimize study. Measurements Chambers 2D Name Value Normal Range IVSd (2D) 0.94 cm (0.6 - 1.1) LVPWd (2D) 0.94 cm (0.6 - 1.1) LVIDd (2D) 6.15 cm (3.7 - 5.6) LVIDs (2D) 5.2 cm (2 - 3.8) LV FS (2D) 15.5 % - EF Teichholz (2D) 32.08 % - Ao root diameter (2D) 2.77 cm (2 - 3.7) Volumes/Mass Name Value Normal Range LA ESV SP 4CH (A/L) 73.77 ml - LA ESV SP 2CH (A/L) 66.45 ml - LA ESV BP (A/L) 71.61 ml - LA ESV BP (A/L) index 30.6 ml/m2 - LA ESV SP 4CH (MOD) 72.55 ml - LA ESV SP 2CH (MOD) 65.34 ml - LA ESV BP (MOD) 70.27 ml - LA ESV BP (MOD) index 30.03 ml/m2 - Diastolic/Systolic Function Name Value Normal Range MV E-wave Vmax 0.85 m/sec - MV deceleration time 69.14 msec - MV A-wave Vmax 0.89 m/sec - MV E:A ratio 0.95 ratio - Aortic Valve Name Value Normal Range AV Vmax 0.96 m/sec - AV VTI 11.83 cm - AV peak gradient 3.68 mmHg - AV mean gradient 1.6 mmHg - LVOT diameter 2.19 cm - LVOT Vmax 0.86 m/sec - LVOT VTI 13.33 cm - LVOT peak gradient 2.96 mmHg - LVOT mean gradient 1.48 mmHg - SV LVOT 50.08 ml - DEYA (continuity Vmax) 3.37 cm2 - DEYA (continuity VTI) 4.23 cm2 - Ascending Ao 2.92 cm - Pulmonic Valve/Qp:Qs Name Value Normal Range PV Vmax 1.08 m/sec - PV VTI 15.88 cm - PV peak gradient 4.7 mmHg - PV mean gradient 2.18 mmHg - RVOT Vmax 0.82 m/sec - RVOT VTI 11.48 cm - RVOT peak gradient 2.67 mmHg - [place] BAS Not Seen BA Not Seen BAL Not Seen BAY Normal BI Normal BIS Not Seen MAS Not Seen MA Not Seen MAL Not Seen MIL Akinetic WV Akinetic MIS Not Seen Not Seen AA Not Seen AL Akinetic AI Akinetic APEX Not Seen Tyson/IV: Voiding Method Urinal IV Catheter Type [Right Peripheral IV Forearm] IV Catheter Type [Right INT / Saline Lock Antecubital] IV Catheter Type [Left Forearm INT / Saline Lock ] IV Catheter Type [Left Upper Peripheral IV arm] IV Catheter Type [Left Peripheral IV Antecubital] Active Medications - Current Medications Current Medications: Generic Name Dose Route Start Last Admin Trade Name Freq PRN Reason Stop Dose Admin Acetaminophen/Hydrocodone Bitart 2 each 03/22/20 17:18 04/04/20 10:51 [place] 5/325 PO 2 each Q4H PRN Administration Pain, Moderate (4-6) Albuterol 2.5 mg 04/01/20 00:03 Proventil IH Q6HRT PRN Shortness Of Breath Apixaban 5 mg 03/26/20 22:00 04/04/20 10:53 Eliquis PO 5 mg Q12HR LOI Administration Protocol Arformoterol Tartrate 15 mcg 03/19/20 20:00 04/04/20 21:02 Brovana Nebu IH 15 mcg Q12HRT LOI Administration Atorvastatin Calcium 40 mg 03/19/20 22:00 04/03/20 22:31 Lipitor PO 40 mg QHS LOI Administration Budesonide 0.5 mg 03/19/20 20:00 04/04/20 21:02 Pulmicort IH 0.5 mg Q12HRT LOI Administration Clopidogrel Bisulfate 75 mg 03/19/20 10:00 04/04/20 10:52 Plavix PO 75 mg QDAY LOI Administration Dextrose 50 ml 03/18/20 22:21 D50w (25gm) Syringe IV Q30MIN PRN Hypoglycemia Protocol Diphenhydramine HCl 25 mg 03/19/20 12:44 Benadryl IV Q4H PRN Itching Guaifenesin 10 ml 04/01/20 00:03 04/02/20 05:34 Guaifenesin Dm Syrup PO 10 ml Q4H PRN Administration Cough Hydromorphone/Sodium Chloride 0 mg 03/19/20 13:00 03/30/20 02:09 Dilaudid [employer]st 6mg/30ml IV 1 cart DIRECT LOI Administration Protocol Sodium Chloride 500 mls @ 2 mls/hr 03/28/20 22:00 03/30/20 22:45 Nacl 0.9% 500 Ml IV 2 mls/hr DIRECT LOI Administration Sodium Chloride 1,000 mls @ 75 mls/hr 04/01/20 13:15 04/03/20 13:23 Nacl 0.9% 1000 Ml IV 75 mls/hr DIRECT LOI Administration Piperacillin Sod/Tazobactam Sod 4.5 gm in 100 mls @ 200 mls/hr 04/02/20 14:00 04/04/20 18:49 Zosyn/Ns 4.5gm/100ml IV 04/06/20 13:59 200 mls/hr Q8HR LOI Administration Insulin Glargine 25 units 03/22/20 22:00 04/03/20 22:31 Lantus SUB-Q 25 units QHS LOI Administration Insulin Human Lispro 0 unit 03/20/20 16:30 04/04/20 18:49 Humalog SUB-Q 3 unit ACHS LOI Administration Protocol Insulin Human Lispro 8 unit 03/28/20 11:30 04/04/20 18:50 Humalog SUB-Q 8 unit AC LOI Administration Ipratropium [place] 0.5 mg 04/01/20 00:05 Atrovent IH Q6HRT PRN Shortness Of Breath Magnesium Hydroxide 30 ml 03/18/20 22:21 Milk Of Magnesia PO Q4H PRN Constipation Metoprolol Tartrate 50 mg 03/19/20 22:00 04/04/20 10:51 Metoprolol PO 50 mg BID LOI Administration Naloxone HCl 0.1 mg 03/19/20 12:44 Naloxone IV Q2MIN PRN Res Rate </= 8 or 02 SAT < 92% Ondansetron HCl 4 mg 03/18/20 22:21 04/02/20 10:04 Zofran IV 4 mg Q8H PRN Administration Nausea And Vomiting Pantoprazole Sodium 40 mg 03/20/20 10:00 04/04/20 10:51 Protonix PO 40 mg BID LOI Administration Pregabalin 150 mg 03/22/20 22:00 04/04/20 10:52 Pregabalin PO 150 mg BID LOI Administration Sodium Chloride 10 ml 03/19/20 10:00 04/04/20 10:54 Sodium Chloride Flush Syringe 10 Ml IV Not Given BID LOI Sodium Chloride 10 ml 03/18/20 22:21 03/22/20 19:52 Sodium Chloride Flush Syringe 10 Ml IV 10 ml PRN PRN Administration LINE FLUSH Zolpidem Tartrate 5 mg 03/31/20 19:09 Ambien PO QHS PRN Sleep Nutrition/Malnutrition Assess - Dietary Evaluation Nutrition/Malnutrition Findings: Nutrition Notes Start: 03/19/20 11:59 Freq: Status: Active Protocol: Document 04/02/20 14:45 DAYO (Rec: 04/02/20 14:47 DAYO [id number] [email or web address]) Nutrition Notes Initial or Follow up Reassessment Current Diagnosis COPD,Diabetes Other Pertinent Diagnosis (L) LE ischemia s/p (L) BKA, STARR, NSTEMI Current Diet Cardiac/Consistent CHO Labs/Tests Na 134 BUN 76 Cr 2 Pertinent Medications reviewed Height 6 ft Weight 126 kg [place] Body Weight (kg) 80.90 BMI 37.6 Weight Status Obese Subjective/Other Information Unable to reach pt via phone. No PO intakes documented. Burn Absent Trauma Absent #1 Nutrition Diagnosis Increased nutrient needs ( specify in comment below) Diagnosis Progress(for reassessment Continues documentation) Is patient on ventilator? No Is Patient Ambulatory and/or Out of Bed No REE-([facility]-confined to bed) 2563.368 Kcal/Kg value to use for calculation 17 Approximate Energy Requirements Using 2142 kcal/Kg Calculation Used for Recommendations Kcal/kg Additional Notes Pro needs 1-1.2g/kg adjBW (not for amputation): 103-124g/day Fluid needs 1ml/kcal Nutrition Intervention Change Diet Order: Continue current diet order; honor food preferences Goal #1 PO intakes to meet at least 75 % energy and pro needs Goal #2 Healing of surgical site Follow-Up By: 04/08/20 Additional Comments F/U: intakes, wt
[2020-04-04] MEDS: INSULIN GLARGINE 100 UNITS/ML SUB-Q SCH (21:59)
[2020-04-05] MEDS: ZOLPIDEM 5 MG TAB PO PRN ×2 (01:46→22:32)
[2020-04-05] MEDS: ONDANSETRON 4 MG/2 ML INJ IV PRN (01:46)
[2020-04-05 05:18] LABS: Albumin 2.3 g/dL (3.9-5); Basophils % (Auto) 0.3 % (0.0-1.8); Calcium 8.2 mg/dL (8.4-10.2); Eosinophils # (Auto) 0.1 K/mm3 (0.0-0.4); Eosinophils % (Auto) 0.5 % (0.0-4.3); Hematocrit 27.9 % (35.5-45.6); Hemoglobin 8.7 gm/dl (11.8-15.2); Lymphocytes % (Auto) 14.7 % (13.4-35.0); Mean Corpuscular HGB Conc 31 % (32-34); Mean Corpuscular Volume 92 fl (84-94); Monocytes # (Auto) 0.8 K/mm3 (0.0-0.8); Monocytes % (Auto) 5.6 % (0.0-7.3); Platelet Count 330 K/mm3 (140-440); Red Blood Count 3.03 M/mm3 (3.65-5.03); Red Cell Distribution Width 15.5 % (13.2-15.2)
[2020-04-05] MEDS: PIPERACIL/TAZOBACTA 4.5/NS 100 4.5 GM/100 ML VIAL IV SCH ×3 (05:34→21:59)
--- NOTE | 2020-04-05 07:10 | Consultation ---
History of Present Illness Consult date: 04/05/20 Reason for consult: other (elevated liver enzymes.) Requesting physician: GURPREET ABDULLAHI Chief complaint: poor sleep - History of present illness History of present illness: 54yo M with multiple medical problems including CVA and diabetes was originally admitted for left foot pain and discoloration. He was found to have a cold foot and vascular intervention was needed. We are asked to see the patient due to an incidental finding of elevated liver enzymes. Patient is hungry at this time. Denies any right upper quadrant pain. Denies any nausea or vomiting. Has not had any previous issues with food intolerance. Past History Past Medical History: CAD, COPD, diabetes, hypertension, hyperlipidemia Past Surgical History: CABG Social history: smoking (Current every day smoker) Family history: no significant family history Medications and Allergies Allergies Allergy/AdvReac Type Severity Reaction Status Date / Time No Known Allergies Allergy Unverified 03/18/20 15:17 Home Medications Medication Instructions Recorded Confirmed Last Taken Type AtorvaSTATin [Lipitor] 20 mg PO QHS 03/20/20 03/20/20 03/14/20 History Clopidogrel [Plavix] 75 mg PO QHS 03/20/20 03/20/20 03/14/20 History Famotidine [Acid Controller] 20 mg PO BID 03/20/20 03/20/20 03/14/20 History Fenofibrate Nanocrystallized 48 mg PO DAILY 03/20/20 03/20/20 03/14/20 History [Fenofibrate] Metoprolol Tartrate 25 mg PO BID 03/20/20 03/20/20 03/14/20 History Pregabalin [Lyrica] 150 mg PO BID 03/20/20 03/20/20 03/14/20 History amLODIPine [Norvasc] 5 mg PO DAILY 03/20/20 03/20/20 03/14/20 History glipiZIDE [Glucotrol] 10 mg PO BID 03/20/20 03/20/20 03/14/20 History hydroCHLOROthiazide [HCTZ] 25 mg PO QDAY 03/20/20 03/20/20 03/14/20 History lisinopriL [Zestril TAB] 40 mg PO QDAY 03/20/20 03/20/20 03/14/20 History Active Meds: Active Medications Acetaminophen/Hydrocodone Bitart ([place] 5/325) 2 each PO Q4H PRN PRN Reason: Pain, Moderate (4-6) Last Admin: 04/04/20 10:51 Dose: 2 each Documented by: Albuterol (Proventil) 2.5 mg IH Q6HRT PRN PRN Reason: Shortness Of Breath Apixaban (Eliquis) 5 mg PO Q12HR LOI; Protocol Last Admin: 04/04/20 21:57 Dose: 5 mg Documented by: Arformoterol Tartrate (Brovana Nebu) 15 mcg IH Q12HRT LOI Last Admin: 04/04/20 21:02 Dose: 15 mcg Documented by: Atorvastatin Calcium (Lipitor) 40 mg PO QHS LOI Last Admin: 04/04/20 21:57 Dose: 40 mg Documented by: Budesonide (Pulmicort) 0.5 mg IH Q12HRT LOI Last Admin: 04/04/20 21:02 Dose: 0.5 mg Documented by: Clopidogrel Bisulfate (Plavix) 75 mg PO QDAY LOI Last Admin: 04/04/20 10:52 Dose: 75 mg Documented by: Dextrose (D50w (25gm) Syringe) 50 ml IV Q30MIN PRN; Protocol PRN Reason: Hypoglycemia Diphenhydramine HCl (Benadryl) 25 mg IV Q4H PRN PRN Reason: Itching Guaifenesin (Guaifenesin Dm Syrup) 10 ml PO Q4H PRN PRN Reason: Cough Last Admin: 04/02/20 05:34 Dose: 10 ml Documented by: Hydromorphone/Sodium Chloride (Dilaudid [place] [employer] 6mg/30ml) 0 mg IV DIRECT LOI; Protocol Last Admin: 03/30/20 02:09 Dose: 1 cart Documented by: Sodium Chloride (Nacl 0.9% 500 Ml) 500 mls @ 2 mls/hr IV DIRECT LOI Last Admin: 03/30/20 22:45 Dose: 2 mls/hr Documented by: Sodium Chloride (Nacl 0.9% 1000 Ml) 1,000 mls @ 75 mls/hr IV DIRECT LOI Last Admin: 04/03/20 13:23 Dose: 75 mls/hr Documented by: Piperacillin Sod/Tazobactam Sod (Zosyn/Ns 4.5gm/100ml) 4.5 gm in 100 mls @ 200 mls/hr IV Q8HR [facility] Stop: 04/06/20 13:59 Last Admin: 04/05/20 05:34 Dose: 200 mls/hr Documented by: Insulin Glargine (Lantus) 25 units SUB-Q QHS [facility] Last Admin: 04/04/20 21:59 Dose: 25 units Documented by: Insulin Human Lispro (Humalog) 0 unit SUB-Q ACHS [facility]; Protocol Last Admin: 04/04/20 23:56 Dose: Not Given Documented by: Insulin Human Lispro (Humalog) 8 unit SUB-Q AC [facility] Last Admin: 04/04/20 18:50 Dose: 8 unit Documented by: Ipratropium [place] (Atrovent) 0.5 mg IH Q6HRT PRN PRN Reason: Shortness Of Breath Magnesium Hydroxide (Milk Of Magnesia) 30 ml PO Q4H PRN PRN Reason: Constipation Metoprolol Tartrate (Metoprolol) 50 mg PO BID [facility] Last Admin: 04/04/20 21:57 Dose: 50 mg Documented by: Naloxone HCl (Naloxone) 0.1 mg IV Q2MIN PRN PRN Reason: Res Rate </= 8 or 02 SAT < 92% Ondansetron HCl (Zofran) 4 mg IV Q8H PRN PRN Reason: Nausea And Vomiting Last Admin: 04/05/20 01:46 Dose: 4 mg Documented by: Pantoprazole Sodium (Protonix) 40 mg PO BID [facility] Last Admin: 04/04/20 21:57 Dose: 40 mg Documented by: Pregabalin (Pregabalin) 150 mg PO BID [facility] Last Admin: 04/04/20 21:57 Dose: 150 mg Documented by: Sodium Chloride (Sodium Chloride Flush Syringe 10 Ml) 10 ml IV BID [facility] Last Admin: 04/04/20 22:07 Dose: 10 ml Documented by: Sodium Chloride (Sodium Chloride Flush Syringe 10 Ml) 10 ml IV PRN PRN PRN Reason: LINE FLUSH Last Admin: 03/22/20 19:52 Dose: 10 ml Documented by: Zolpidem Tartrate (Ambien) 5 mg PO QHS PRN PRN Reason: Sleep Last Admin: 04/05/20 01:46 Dose: 5 mg Documented by: Review of Systems - Constitutional no fever, no chills - Cardiovascular no chest pain, no shortness of breath - Gastrointestinal no abdominal pain, no nausea, no vomiting Exam Vital Signs Temp Pulse Resp BP Pulse Ox 99.5 F 121 H 20 128/88 97 03/18/20 15:18 03/18/20 15:18 03/18/20 15:18 03/18/20 15:18 03/18/20 15:18 - General physical appearance Positive: no distress, no pain, obese, other (Attention drifts. ) - Respiratory Positive: normal expansion, normal respiratory effort - Cardiovascular Rhythm: regular - Abdomen Abdomen: Present: soft. Absent: tender, distended, guarding, rigid - Psychiatric Psychiatric: cooperative Results - Labs 04/05/20 03:54 04/05/20 03:54 Abnormal lab results 04/04/20 04/04/20 04/04/20 Range/Units 11:29 16:34 20:58 WBC (4.5-11.0) K/mm3 RBC (3.65-5.03) M/mm3 Hgb (11.8-15.2) gm/dl Hct (35.5-45.6) % MCHC (32-34) % RDW (13.2-15.2) % Seg Neutrophils % (40.0-70.0) % Seg Neutrophils # (1.8-7.7) K/mm3 Sodium (137-145) mmol/L Potassium (3.6-5.0) mmol/L Carbon Dioxide (22-30) mmol/L BUN (9-20) mg/dL Creatinine (0.8-1.3) mg/dL Glucose (75-100) mg/dL POC Glucose 108 H 151 H 131 H (70-105) Calcium (8.4-10.2) mg/dL AST (5-40) units/L ALT (7-56) units/L Alkaline Phosphatase (35-129) units/L Albumin (3.9-5) g/dL 04/05/20 04/05/20 Range/Units 03:54 03:54 WBC 13.7 H (4.5-11.0) K/mm3 RBC 3.03 L (3.65-5.03) M/mm3 Hgb 8.7 L (11.8-15.2) gm/dl Hct 27.9 L (35.5-45.6) % MCHC 31 L (32-34) % RDW 15.5 H (13.2-15.2) % Seg Neutrophils % 78.9 H (40.0-70.0) % Seg Neutrophils # 10.8 H (1.8-7.7) K/mm3 Sodium 136 L (137-145) mmol/L Potassium 5.5 H (3.6-5.0) mmol/L Carbon Dioxide 21 L (22-30) mmol/L BUN 79 H (9-20) mg/dL Creatinine 1.9 H (0.8-1.3) mg/dL Glucose 63 L (75-100) mg/dL POC Glucose (70-105) Calcium 8.2 L (8.4-10.2) mg/dL AST 696 H (5-40) units/L ALT 262 H (7-56) units/L Alkaline Phosphatase 325 H (35-129) units/L Albumin 2.3 L (3.9-5) g/dL Diabetes panel 04/05/20 Range/Units 03:54 Sodium 136 L (137-145) mmol/L Potassium 5.5 H (3.6-5.0) mmol/L Chloride 101.9 (98-107) mmol/L Carbon Dioxide 21 L (22-30) mmol/L BUN 79 H (9-20) mg/dL Creatinine 1.9 H (0.8-1.3) mg/dL Glucose 63 L (75-100) mg/dL Calcium 8.2 L (8.4-10.2) mg/dL AST 696 H (5-40) units/L ALT 262 H (7-56) units/L Alkaline Phosphatase 325 H (35-129) units/L Total Protein 6.3 (6.3-8.2) g/dL Albumin 2.3 L (3.9-5) g/dL Calcium panel 04/05/20 Range/Units 03:54 Calcium 8.2 L (8.4-10.2) mg/dL Albumin 2.3 L (3.9-5) g/dL Pituitary panel 04/05/20 Range/Units 03:54 Sodium 136 L (137-145) mmol/L Potassium 5.5 H (3.6-5.0) mmol/L Chloride 101.9 (98-107) mmol/L Carbon Dioxide 21 L (22-30) mmol/L BUN 79 H (9-20) mg/dL Creatinine 1.9 H (0.8-1.3) mg/dL Glucose 63 L (75-100) mg/dL Calcium 8.2 L (8.4-10.2) mg/dL Adrenal panel 04/05/20 Range/Units 03:54 Sodium 136 L (137-145) mmol/L Potassium 5.5 H (3.6-5.0) mmol/L Chloride 101.9 (98-107) mmol/L Carbon Dioxide 21 L (22-30) mmol/L BUN 79 H (9-20) mg/dL Creatinine 1.9 H (0.8-1.3) mg/dL Glucose 63 L (75-100) mg/dL Calcium 8.2 L (8.4-10.2) mg/dL Total Bilirubin 0.80 (0.1-1.2) mg/dL AST 696 H (5-40) units/L ALT 262 H (7-56) units/L Alkaline Phosphatase 325 H (35-129) units/L Total Protein 6.3 (6.3-8.2) g/dL Albumin 2.3 L (3.9-5) g/dL Assessment and Plan - Patient Problems (1) Transaminitis Current Visit: Yes Status: Acute Plan to address problem: Pt stable. Patient has no clinical signs or symptoms to suggest acute cholecystitis at this time. Interview was slightly challenging as his attention would drift during the conversation. I agree with the HIDA scan evaluation. We will follow-up on that and make further recommendations. Please call with questions Time=30min
[2020-04-05] MEDS: [UNRECOGNIZED DRUG - REMARK] SUB-Q SCH ×4 (08:15→23:50)
[2020-04-05] MEDS: ARFORMOTEROL 15 MCG/2 ML NEBU IH SCH ×2 (08:23→20:55)
[2020-04-05] MEDS: BUDESONIDE 0.5 MG/2 ML NEBU IH SCH ×2 (08:23→20:55)
[2020-04-05] MEDS: INSULIN LISPRO 100 UNIT/ML VIAL 3 mL SUB-Q SCH ×3 (08:37→16:24)
[2020-04-05] MEDS: METOPROLOL TARTRATE 50 MG TAB PO SCH ×2 (10:36→22:13)
[2020-04-05] MEDS: PANTOPRAZOLE 40 MG TAB PO SCH ×2 (10:36→22:01)
[2020-04-05] MEDS: PREGABALIN 75 MG CAP PO SCH ×2 (10:36→22:02)
[2020-04-05] MEDS: CLOPIDOGREL 75 MG TAB PO SCH (10:36)
[2020-04-05] MEDS: APIXABAN 5 MG TAB PO SCH ×2 (10:36→22:02)
[2020-04-05] MEDS: SODIUM CHLORIDE 0.9% 1000 ML 1,000 ML IV SCH (11:40)
[2020-04-05] MEDS ORDERED: FUROSEMIDE 40 MG/4 ML INJ IV ONE (13:00)
--- NOTE | 2020-04-05 15:02 | Progress Note ---
Assessment and Plan Acute limb ischemia S/P revascularization surgery. Obstructive sleep apnea. History of chronic obstructive pulmonary disease. Acute hypoxemic respiratory failure. Diabetes. History of coronary artery disease. Non-ST elevation myocardial infarction. Acute coronary syndrome. History of cerebrovascular accident. - get stat ABG and address - get stat CXR and address - continue NIV scheduled qhs / while asleep - continue wound care per WCN / RN - continue antiplatelet therapy with Eliquis and Plavix - no new issues otherwise, continue care as below; - further surgical intervention per Vascular team - accuchecks with glycemic control per SSI (While critically ill target blood glucose of 140-180 mg/dL; avoid hypoglycemia) - wean supplemental oxygen for target O2 sat's > 90% acutely - prn bronchodilators with pulmonary hygiene per RT - avoid benzodiazepine's, reduce the possibility of delirium - AB's per surgery rec's (No S&S of overwhelming sepsis) - prn analgesia per pain score - Maintenance of sleep-wake cycle, avoid delirium - aspiration precautions - G.I. & VTE prophylaxis - PT/OT/ROM exercises - mobility protocols for pressure ulcer prophylaxis - Monitor hemodynamics closely - continue other care per attending / other consultants - discharge planning ongoing concurrently - transferred to telemetry .... Re-evaluate in am & prn Subjective Date of service: 04/05/20 Principal diagnosis: Acute limb ischemia; STARR; COPD; Ac hypoxemic resp failure; DM II; NSTEMI Interval history: Patient is seen today for: Acute limb ischemia S/P revascularization surgery; STARR; COPD; Acute hypoxemic respiratory failure; DM II; NSTEMI; H/O CVA Seen and examined at bedside; 24hour events reviewed; nursing and respiratory care staff consulted; no adverse overnight events reported to me; resting peacefully in bed; lethargic; hard to arouse; + wet sounding cough; No N/V/F/C Objective Vital Signs - 12hr 04/05/20 04/05/20 04/05/20 04:25 05:00 08:24 Temperature 98.0 F Pulse Rate 88 Pulse Rate [ 89 Anterior Bilateral Throughout] Pulse Rate [ Apical] Respiratory 18 Rate Respiratory 20 Rate [Anterior Bilateral Throughout] Blood Pressure 106/76 O2 Sat by Pulse Oximetry 04/05/20 04/05/20 04/05/20 10:36 11:11 11:43 Temperature Pulse Rate 75 66 Pulse Rate [ Anterior Bilateral Throughout] Pulse Rate [ 69 Apical] Respiratory 16 Rate Respiratory Rate [Anterior Bilateral Throughout] Blood Pressure 108/74 104/75 O2 Sat by Pulse 99 100 Oximetry 04/05/20 11:44 Temperature 97.6 F Pulse Rate Pulse Rate [ Anterior Bilateral Throughout] Pulse Rate [ Apical] Respiratory Rate Respiratory Rate [Anterior Bilateral Throughout] Blood Pressure O2 Sat by Pulse Oximetry Constitutional: lethargic, other (middle aged obese male with hypoventilation clinically ) Eyes: non-icteric ENT: oropharynx moist Neck: supple, no lymphadenopathy, no JVD Effort: mildly labored Ascultation: Bilateral: clear, diminished breath sounds, other (+ referred upper airway sounds) Percussion: Bilateral: not dull Cardiovascular: regular rate and rhythm Gastrointestinal: normoactive bowel sounds, soft, non-tender, non-distended (protuberant) Integumentary: rash Extremities: cool, edema (right lower extremity), other (left BKA with clean dressing) Neurologic: normal mental status, non-focal exam, pupils equal and round, motor strength normal and Psychiatric: other (lethargic) CBC and BMP: 04/05/20 03:54 04/05/20 03:54 ABG, PT/INR, D-dimer: ABG ABG pH 7.405 pH Units (7.350-7.450) 03/20/20 04:35 ABG pCO2 40.3 mm Hg 03/20/20 04:35 ABG pO2 68.3 mm Hg (80.0-90.0) L 03/20/20 04:35 ABG O2 Saturation 94.3 % (95.0-99.0) L 03/20/20 04:35 PT/INR, D-dimer PT 12.7 Sec. (12.2-14.9) 03/19/20 08:08 INR 0.94 (0.87-1.13) 03/19/20 08:08 Abnormal lab findings: Abnormal Labs 03/18/20 03/18/20 03/18/20 18:28 18:28 20:56 WBC 12.3 H RBC Hgb Hct MCHC RDW Lymph % (Auto) 11.0 L Churchill % (Auto) 9.8 H Churchill # 1.2 H Seg Neutrophils % 78.4 H Seg Neuts % (Manual) Lymphocytes % (Manual) Nucleated RBC % Seg Neutrophils # 9.6 H Seg Neutrophils # Man Lymphocytes # (Manual) Monocytes # (Manual) Eosinophils # (Manual) Heparin Anti-Xa Level ABG pO2 ABG HCO3 ABG O2 Saturation ABG Base Excess ABG Hemoglobin Oxyhemoglobin Sodium 132 L Potassium Chloride 91.9 L Carbon Dioxide 20 L BUN Creatinine 1.4 H Glucose 406 H POC Glucose Hemoglobin A1c Calcium AST ALT Alkaline Phosphatase Total Creatine Kinase 2727 H 2492 H CK-MB (CK-2) 135.9 H 107.2 H CK-MB (CK-2) Rel Index 4.3 H Troponin T 5.110 H* 3.960 H* D Total Protein Albumin Triglycerides 188 H LDL Cholesterol Direct 141 H 03/18/20 03/19/20 03/19/20 22:21 01:57 08:08 WBC RBC Hgb Hct MCHC RDW Lymph % (Auto) Churchill % (Auto) Churchill # Seg Neutrophils % Seg Neuts % (Manual) Lymphocytes % (Manual) Nucleated RBC % Seg Neutrophils # Seg Neutrophils # Man Lymphocytes # (Manual) Monocytes # (Manual) Eosinophils # (Manual) Heparin Anti-Xa Level ABG pO2 ABG HCO3 ABG O2 Saturation ABG Base Excess ABG Hemoglobin Oxyhemoglobin Sodium Potassium Chloride Carbon Dioxide BUN Creatinine Glucose POC Glucose 317 H Hemoglobin A1c 11.0 H Calcium AST ALT Alkaline Phosphatase Total Creatine Kinase 7255 H CK-MB (CK-2) 79.3 H CK-MB (CK-2) Rel Index Troponin T 5.540 H* D Total Protein Albumin Triglycerides LDL Cholesterol Direct 03/19/20 03/19/20 03/19/20 08:08 08:08 08:08 WBC 13.3 H RBC Hgb Hct MCHC RDW Lymph % (Auto) 10.7 L [place] % (Auto) 8.5 H Churchill # 1.1 H Seg Neutrophils % 80.0 H Seg Neuts % (Manual) Lymphocytes % (Manual) Nucleated RBC % Seg Neutrophils # 10.6 H Seg Neutrophils # Man Lymphocytes # (Manual) Monocytes # (Manual) Eosinophils # (Manual) Heparin Anti-Xa Level 0.10 L ABG pO2 ABG HCO3 ABG O2 Saturation ABG Base Excess ABG Hemoglobin Oxyhemoglobin Sodium 133 L Potassium 5.1 H Chloride Carbon Dioxide 17 L BUN 23 H Creatinine Glucose 313 H POC Glucose Hemoglobin A1c Calcium AST ALT Alkaline Phosphatase Total Creatine Kinase CK-MB (CK-2) CK-MB (CK-2) Rel Index Troponin T Total Protein Albumin Triglycerides LDL Cholesterol Direct 03/19/20 03/19/20 03/19/20 15:40 18:23 21:32 WBC RBC Hgb Hct MCHC RDW Lymph % (Auto) Churchill % (Auto) Churchill # Seg Neutrophils % Seg Neuts % (Manual) Lymphocytes % (Manual) Nucleated RBC % Seg Neutrophils # Seg Neutrophils # Man Lymphocytes # (Manual) Monocytes # (Manual) Eosinophils # (Manual) Heparin Anti-Xa Level < 0.10 L ABG pO2 ABG HCO3 18.3 L ABG O2 Saturation ABG Base Excess -5.4 L ABG Hemoglobin 12.2 L Oxyhemoglobin 94.6 L Sodium Potassium Chloride Carbon Dioxide BUN Creatinine Glucose POC Glucose 348 H Hemoglobin A1c Calcium AST ALT Alkaline Phosphatase Total Creatine Kinase CK-MB (CK-2) CK-MB (CK-2) Rel Index Troponin T Total Protein Albumin Triglycerides LDL Cholesterol Direct 03/20/20 03/20/20 03/20/20 04:35 05:12 05:12 WBC 11.1 H RBC 3.63 L Hgb 11.0 L Hct 32.7 L D MCHC RDW Lymph % (Auto) Churchill % (Auto) 8.1 H Churchill # 0.9 H Seg Neutrophils % 75.8 H Seg Neuts % (Manual) Lymphocytes % (Manual) Nucleated RBC % Seg Neutrophils # 8.4 H Seg Neutrophils # Man Lymphocytes # (Manual) Monocytes # (Manual) Eosinophils # (Manual) Heparin Anti-Xa Level 0.28 L ABG pO2 68.3 L ABG HCO3 ABG O2 Saturation 94.3 L ABG Base Excess ABG Hemoglobin 7.1 L Oxyhemoglobin 92.3 L Sodium Potassium Chloride Carbon Dioxide BUN Creatinine Glucose POC Glucose Hemoglobin A1c Calcium AST ALT Alkaline Phosphatase Total Creatine Kinase CK-MB (CK-2) CK-MB (CK-2) Rel Index Troponin T Total Protein Albumin Triglycerides LDL Cholesterol Direct 03/20/20 03/20/20 03/20/20 05:12 07:49 12:15 WBC RBC Hgb Hct MCHC RDW Lymph % (Auto) [place] % (Auto) Churchill # Seg Neutrophils % Seg Neuts % (Manual) Lymphocytes % (Manual) Nucleated RBC % Seg Neutrophils # Seg Neutrophils # Man Lymphocytes # (Manual) Monocytes # (Manual) Eosinophils # (Manual) Heparin Anti-Xa Level ABG pO2 ABG HCO3 ABG O2 Saturation ABG Base Excess ABG Hemoglobin Oxyhemoglobin Sodium 134 L Potassium Chloride Carbon Dioxide 21 L BUN 23 H Creatinine Glucose 275 H POC Glucose 294 H 357 H Hemoglobin A1c Calcium AST ALT Alkaline Phosphatase Total Creatine Kinase CK-MB (CK-2) CK-MB (CK-2) Rel Index Troponin T 3.200 H* D Total Protein Albumin Triglycerides LDL Cholesterol Direct 03/20/20 03/20/20 03/21/20 17:16 22:08 04:44 WBC RBC Hgb Hct MCHC RDW Lymph % (Auto) Churchill % (Auto) Churchill # Seg Neutrophils % Seg Neuts % (Manual) Lymphocytes % (Manual) Nucleated RBC % Seg Neutrophils # Seg Neutrophils # Man Lymphocytes # (Manual) Monocytes # (Manual) Eosinophils # (Manual) Heparin Anti-Xa Level ABG pO2 ABG HCO3 ABG O2 Saturation ABG Base Excess ABG Hemoglobin Oxyhemoglobin Sodium 136 L Potassium Chloride Carbon Dioxide 18 L BUN 26 H Creatinine Glucose 266 H POC Glucose 327 H 292 H Hemoglobin A1c Calcium 8.1 L AST ALT Alkaline Phosphatase Total Creatine Kinase CK-MB (CK-2) CK-MB (CK-2) Rel Index Troponin T Total Protein Albumin Triglycerides LDL Cholesterol Direct 03/21/20 03/21/20 03/21/20 07:50 12:25 15:53 WBC RBC Hgb Hct MCHC RDW Lymph % (Auto) Churchill % (Auto) Churchill # Seg Neutrophils % Seg Neuts % (Manual) Lymphocytes % (Manual) Nucleated RBC % Seg Neutrophils # Seg Neutrophils # Man Lymphocytes # (Manual) Monocytes # (Manual) Eosinophils # (Manual) Heparin Anti-Xa Level ABG pO2 ABG HCO3 ABG O2 Saturation ABG Base Excess ABG Hemoglobin Oxyhemoglobin Sodium Potassium Chloride Carbon Dioxide BUN Creatinine Glucose POC Glucose 271 H 314 H 436 H Hemoglobin A1c Calcium AST ALT Alkaline Phosphatase Total Creatine Kinase CK-MB (CK-2) CK-MB (CK-2) Rel Index Troponin T Total Protein Albumin Triglycerides LDL Cholesterol Direct 03/21/20 03/21/20 03/22/20 17:44 21:55 04:33 WBC RBC Hgb 10.0 L Hct 29.4 L MCHC RDW Lymph % (Auto) Churchill % (Auto) Churchill # Seg Neutrophils % Seg Neuts % (Manual) Lymphocytes % (Manual) Nucleated RBC % Seg Neutrophils # Seg Neutrophils # Man Lymphocytes # (Manual) Monocytes # (Manual) Eosinophils # (Manual) Heparin Anti-Xa Level ABG pO2 ABG HCO3 ABG O2 Saturation ABG Base Excess ABG Hemoglobin Oxyhemoglobin Sodium Potassium Chloride Carbon Dioxide BUN Creatinine Glucose POC Glucose 362 H 329 H Hemoglobin A1c Calcium AST ALT Alkaline Phosphatase Total Creatine Kinase CK-MB (CK-2) CK-MB (CK-2) Rel Index Troponin T Total Protein Albumin Triglycerides LDL Cholesterol Direct 03/22/20 03/22/20 03/22/20 08:57 14:12 19:57 WBC RBC Hgb Hct MCHC RDW Lymph % (Auto) [place] % (Auto) Churchill # Seg Neutrophils % Seg Neuts % (Manual) Lymphocytes % (Manual) Nucleated RBC % Seg Neutrophils # Seg Neutrophils # Man Lymphocytes # (Manual) Monocytes # (Manual) Eosinophils # (Manual) Heparin Anti-Xa Level ABG pO2 ABG HCO3 ABG O2 Saturation ABG Base Excess ABG Hemoglobin Oxyhemoglobin Sodium Potassium Chloride Carbon Dioxide BUN Creatinine Glucose POC Glucose 284 H 319 H 356 H Hemoglobin A1c Calcium AST ALT Alkaline Phosphatase Total Creatine Kinase CK-MB (CK-2) CK-MB (CK-2) Rel Index Troponin T Total Protein Albumin Triglycerides LDL Cholesterol Direct 03/22/20 03/23/20 03/23/20 21:44 08:18 12:46 WBC RBC Hgb Hct MCHC RDW Lymph % (Auto) [place] % (Auto) Churchill # Seg Neutrophils % Seg Neuts % (Manual) Lymphocytes % (Manual) Nucleated RBC % Seg Neutrophils # Seg Neutrophils # Man Lymphocytes # (Manual) Monocytes # (Manual) Eosinophils # (Manual) Heparin Anti-Xa Level ABG pO2 ABG HCO3 ABG O2 Saturation ABG Base Excess ABG Hemoglobin Oxyhemoglobin Sodium Potassium Chloride Carbon Dioxide BUN Creatinine Glucose POC Glucose 336 H 215 H 262 H Hemoglobin A1c Calcium AST ALT Alkaline Phosphatase Total Creatine Kinase CK-MB (CK-2) CK-MB (CK-2) Rel Index Troponin T Total Protein Albumin Triglycerides LDL Cholesterol Direct 03/23/20 03/23/20 03/24/20 15:56 22:05 02:35 WBC RBC Hgb 9.0 L Hct 25.8 L MCHC RDW Lymph % (Auto) Churchill % (Auto) Churchill # Seg Neutrophils % Seg Neuts % (Manual) Lymphocytes % (Manual) Nucleated RBC % Seg Neutrophils # Seg Neutrophils # Man Lymphocytes # (Manual) Monocytes # (Manual) Eosinophils # (Manual) Heparin Anti-Xa Level ABG pO2 ABG HCO3 ABG O2 Saturation ABG Base Excess ABG Hemoglobin Oxyhemoglobin Sodium Potassium Chloride Carbon Dioxide BUN Creatinine Glucose POC Glucose 246 H 322 H Hemoglobin A1c Calcium AST ALT Alkaline Phosphatase Total Creatine Kinase CK-MB (CK-2) CK-MB (CK-2) Rel Index Troponin T Total Protein Albumin Triglycerides LDL Cholesterol Direct 03/24/20 03/24/20 03/24/20 07:38 11:45 16:02 WBC RBC Hgb Hct MCHC RDW Lymph % (Auto) Churchill % (Auto) Churchill # Seg Neutrophils % Seg Neuts % (Manual) Lymphocytes % (Manual) Nucleated RBC % Seg Neutrophils # Seg Neutrophils # Man Lymphocytes # (Manual) Monocytes # (Manual) Eosinophils # (Manual) Heparin Anti-Xa Level ABG pO2 ABG HCO3 ABG O2 Saturation ABG Base Excess ABG Hemoglobin Oxyhemoglobin Sodium Potassium Chloride Carbon Dioxide BUN Creatinine Glucose POC Glucose 289 H 257 H 150 H Hemoglobin A1c Calcium AST ALT Alkaline Phosphatase Total Creatine Kinase CK-MB (CK-2) CK-MB (CK-2) Rel Index Troponin T Total Protein Albumin Triglycerides LDL Cholesterol Direct 03/24/20 03/25/20 03/25/20 21:24 04:06 07:39 WBC RBC Hgb Hct MCHC RDW Lymph % (Auto) Churchill % (Auto) Churchill # Seg Neutrophils % Seg Neuts % (Manual) Lymphocytes % (Manual) Nucleated RBC % Seg Neutrophils # Seg Neutrophils # Man Lymphocytes # (Manual) Monocytes # (Manual) Eosinophils # (Manual) Heparin Anti-Xa Level 0.10 L ABG pO2 ABG HCO3 ABG O2 Saturation ABG Base Excess ABG Hemoglobin Oxyhemoglobin Sodium Potassium Chloride Carbon Dioxide BUN Creatinine Glucose POC Glucose 228 H 332 H Hemoglobin A1c Calcium AST ALT Alkaline Phosphatase Total Creatine Kinase CK-MB (CK-2) CK-MB (CK-2) Rel Index Troponin T Total Protein Albumin Triglycerides LDL Cholesterol Direct 03/25/20 03/25/20 03/25/20 08:13 09:30 11:59 WBC 13.1 H RBC 2.82 L Hgb 8.5 L Hct 26.1 L MCHC RDW Lymph % (Auto) Churchill % (Auto) Churchill # Seg Neutrophils % Seg Neuts % (Manual) Lymphocytes % (Manual) Nucleated RBC % Seg Neutrophils # Seg Neutrophils # Man Lymphocytes # (Manual) Monocytes # (Manual) Eosinophils # (Manual) Heparin Anti-Xa Level ABG pO2 ABG HCO3 ABG O2 Saturation ABG Base Excess ABG Hemoglobin Oxyhemoglobin Sodium 131 L Potassium 5.3 H Chloride Carbon Dioxide 20 L BUN 39 H Creatinine 1.4 H Glucose 313 H POC Glucose 273 H Hemoglobin A1c Calcium 8.1 L AST ALT Alkaline Phosphatase Total Creatine Kinase CK-MB (CK-2) CK-MB (CK-2) Rel Index Troponin T Total Protein Albumin Triglycerides LDL Cholesterol Direct 03/25/20 03/25/20 03/25/20 13:54 15:58 18:21 WBC RBC Hgb Hct MCHC RDW Lymph % (Auto) [place] % (Auto) Churchill # Seg Neutrophils % Seg Neuts % (Manual) Lymphocytes % (Manual) Nucleated RBC % Seg Neutrophils # Seg Neutrophils # Man Lymphocytes # (Manual) Monocytes # (Manual) Eosinophils # (Manual) Heparin Anti-Xa Level ABG pO2 ABG HCO3 ABG O2 Saturation ABG Base Excess ABG Hemoglobin Oxyhemoglobin Sodium Potassium Chloride Carbon Dioxide BUN Creatinine Glucose POC Glucose 246 H 235 H 185 H Hemoglobin A1c Calcium AST ALT Alkaline Phosphatase Total Creatine Kinase CK-MB (CK-2) CK-MB (CK-2) Rel Index Troponin T Total Protein Albumin Triglycerides LDL Cholesterol Direct 03/25/20 03/26/20 03/26/20 20:45 05:15 06:59 WBC 17.4 H 15.6 H RBC 3.05 L 3.05 L Hgb 9.1 L 9.2 L Hct 28.2 L 27.9 L MCHC RDW Lymph % (Auto) 8.9 L 8.9 L Churchill % (Auto) Churchill # 1.0 H Seg Neutrophils % 84.4 H 84.8 H Seg Neuts % (Manual) Lymphocytes % (Manual) Nucleated RBC % Seg Neutrophils # 14.7 H 13.2 H Seg Neutrophils # Man Lymphocytes # (Manual) Monocytes # (Manual) Eosinophils # (Manual) Heparin Anti-Xa Level ABG pO2 ABG HCO3 ABG O2 Saturation ABG Base Excess ABG Hemoglobin Oxyhemoglobin Sodium Potassium Chloride Carbon Dioxide BUN Creatinine Glucose POC Glucose 178 H Hemoglobin A1c Calcium AST ALT Alkaline Phosphatase Total Creatine Kinase CK-MB (CK-2) CK-MB (CK-2) Rel Index Troponin T Total Protein Albumin Triglycerides LDL Cholesterol Direct 03/26/20 03/26/20 03/26/20 06:59 07:43 11:56 WBC RBC Hgb Hct MCHC RDW Lymph % (Auto) [place] % (Auto) Churchill # Seg Neutrophils % Seg Neuts % (Manual) Lymphocytes % (Manual) Nucleated RBC % Seg Neutrophils # Seg Neutrophils # Man Lymphocytes # (Manual) Monocytes # (Manual) Eosinophils # (Manual) Heparin Anti-Xa Level ABG pO2 ABG HCO3 ABG O2 Saturation ABG Base Excess ABG Hemoglobin Oxyhemoglobin Sodium 131 L Potassium 5.8 H Chloride Carbon Dioxide 16 L BUN 42 H Creatinine 1.4 H Glucose 163 H POC Glucose 170 H 198 H Hemoglobin A1c Calcium 8.0 L AST ALT Alkaline Phosphatase Total Creatine Kinase CK-MB (CK-2) CK-MB (CK-2) Rel Index Troponin T Total Protein Albumin Triglycerides LDL Cholesterol Direct 03/26/20 03/26/20 03/26/20 13:58 16:16 21:00 WBC RBC Hgb Hct MCHC RDW Lymph % (Auto) Churchill % (Auto) Churchill # Seg Neutrophils % Seg Neuts % (Manual) Lymphocytes % (Manual) Nucleated RBC % Seg Neutrophils # Seg Neutrophils # Man Lymphocytes # (Manual) Monocytes # (Manual) Eosinophils # (Manual) Heparin Anti-Xa Level ABG pO2 ABG HCO3 ABG O2 Saturation ABG Base Excess ABG Hemoglobin Oxyhemoglobin Sodium 128 L Potassium 6.0 H Chloride Carbon Dioxide 15 L BUN 45 H Creatinine 1.4 H Glucose 190 H POC Glucose 184 H 192 H Hemoglobin A1c Calcium 8.2 L AST ALT Alkaline Phosphatase Total Creatine Kinase CK-MB (CK-2) CK-MB (CK-2) Rel Index Troponin T Total Protein Albumin Triglycerides LDL Cholesterol Direct 03/27/20 03/27/20 03/27/20 08:32 11:51 14:39 WBC 22.9 H RBC 2.68 L Hgb 7.9 L Hct 24.7 L MCHC RDW Lymph % (Auto) Churchill % (Auto) Churchill # Seg Neutrophils % Seg Neuts % (Manual) Lymphocytes % (Manual) Nucleated RBC % Seg Neutrophils # Seg Neutrophils # Man Lymphocytes # (Manual) Monocytes # (Manual) Eosinophils # (Manual) Heparin Anti-Xa Level ABG pO2 ABG HCO3 ABG O2 Saturation ABG Base Excess ABG Hemoglobin Oxyhemoglobin Sodium Potassium Chloride Carbon Dioxide BUN Creatinine Glucose POC Glucose 233 H 252 H Hemoglobin A1c Calcium AST ALT Alkaline Phosphatase Total Creatine Kinase CK-MB (CK-2) CK-MB (CK-2) Rel Index Troponin T Total Protein Albumin Triglycerides LDL Cholesterol Direct 03/27/20 03/27/20 03/27/20 14:39 15:19 21:35 WBC RBC Hgb Hct MCHC RDW Lymph % (Auto) Churchill % (Auto) Churchill # Seg Neutrophils % Seg Neuts % (Manual) Lymphocytes % (Manual) Nucleated RBC % Seg Neutrophils # Seg Neutrophils # Man Lymphocytes # (Manual) Monocytes # (Manual) Eosinophils # (Manual) Heparin Anti-Xa Level ABG pO2 ABG HCO3 ABG O2 Saturation ABG Base Excess ABG Hemoglobin Oxyhemoglobin Sodium 133 L Potassium 5.5 H Chloride Carbon Dioxide 16 L BUN 46 H Creatinine 1.4 H Glucose 225 H POC Glucose 239 H 202 H Hemoglobin A1c Calcium 8.2 L AST ALT Alkaline Phosphatase Total Creatine Kinase CK-MB (CK-2) CK-MB (CK-2) Rel Index Troponin T Total Protein Albumin Triglycerides LDL Cholesterol Direct 03/28/20 03/28/20 03/28/20 07:39 07:39 08:36 WBC 22.4 H RBC 2.71 L Hgb 7.9 L Hct 24.5 L MCHC RDW Lymph % (Auto) Churchill % (Auto) Churchill # Seg Neutrophils % Seg Neuts % (Manual) 88.0 H Lymphocytes % (Manual) 5.0 L Nucleated RBC % Seg Neutrophils # Seg Neutrophils # Man 19.7 H Lymphocytes # (Manual) 1.1 L Monocytes # (Manual) 1.6 H Eosinophils # (Manual) Heparin Anti-Xa Level ABG pO2 ABG HCO3 ABG O2 Saturation ABG Base Excess ABG Hemoglobin Oxyhemoglobin Sodium 134 L Potassium Chloride Carbon Dioxide 19 L BUN 47 H Creatinine Glucose 240 H POC Glucose 253 H Hemoglobin A1c Calcium 7.8 L AST ALT Alkaline Phosphatase Total Creatine Kinase CK-MB (CK-2) CK-MB (CK-2) Rel Index Troponin T Total Protein Albumin Triglycerides LDL Cholesterol Direct 03/28/20 03/28/20 03/28/20 11:54 17:08 21:17 WBC RBC Hgb Hct MCHC RDW Lymph % (Auto) [place] % (Auto) Churchill # Seg Neutrophils % Seg Neuts % (Manual) Lymphocytes % (Manual) Nucleated RBC % Seg Neutrophils # Seg Neutrophils # Man Lymphocytes # (Manual) Monocytes # (Manual) Eosinophils # (Manual) Heparin Anti-Xa Level ABG pO2 ABG HCO3 ABG O2 Saturation ABG Base Excess ABG Hemoglobin Oxyhemoglobin Sodium Potassium Chloride Carbon Dioxide BUN Creatinine Glucose POC Glucose 306 H 178 H 186 H Hemoglobin A1c Calcium AST ALT Alkaline Phosphatase Total Creatine Kinase CK-MB (CK-2) CK-MB (CK-2) Rel Index Troponin T Total Protein Albumin Triglycerides LDL Cholesterol Direct 03/29/20 03/29/20 03/29/20 08:32 12:04 14:19 WBC 21.5 H RBC 2.82 L Hgb 8.4 L Hct 26.1 L MCHC RDW Lymph % (Auto) Churchill % (Auto) Churchill # Seg Neutrophils % Seg Neuts % (Manual) 85.0 H Lymphocytes % (Manual) 11.0 L Nucleated RBC % 3.0 H Seg Neutrophils # Seg Neutrophils # Man 18.3 H Lymphocytes # (Manual) Monocytes # (Manual) Eosinophils # (Manual) 0.6 H Heparin Anti-Xa Level ABG pO2 ABG HCO3 ABG O2 Saturation ABG Base Excess ABG Hemoglobin Oxyhemoglobin Sodium Potassium Chloride Carbon Dioxide BUN Creatinine Glucose POC Glucose 110 H 263 H Hemoglobin A1c Calcium AST ALT Alkaline Phosphatase Total Creatine Kinase CK-MB (CK-2) CK-MB (CK-2) Rel Index Troponin T Total Protein Albumin Triglycerides LDL Cholesterol Direct 03/29/20 03/29/20 03/30/20 16:17 22:57 11:00 WBC RBC Hgb Hct MCHC RDW Lymph % (Auto) [place] % (Auto) Churchill # Seg Neutrophils % Seg Neuts % (Manual) Lymphocytes % (Manual) Nucleated RBC % Seg Neutrophils # Seg Neutrophils # Man Lymphocytes # (Manual) Monocytes # (Manual) Eosinophils # (Manual) Heparin Anti-Xa Level ABG pO2 ABG HCO3 ABG O2 Saturation ABG Base Excess ABG Hemoglobin Oxyhemoglobin Sodium Potassium Chloride Carbon Dioxide BUN Creatinine Glucose POC Glucose 109 H 194 H 129 H Hemoglobin A1c Calcium AST ALT Alkaline Phosphatase Total Creatine Kinase CK-MB (CK-2) CK-MB (CK-2) Rel Index Troponin T Total Protein Albumin Triglycerides LDL Cholesterol Direct 03/30/20 03/30/20 03/31/20 15:16 21:54 04:27 WBC 15.8 H RBC 2.62 L Hgb 7.7 L Hct 24.1 L MCHC RDW Lymph % (Auto) 9.4 L Churchill % (Auto) Churchill # Seg Neutrophils % 84.4 H Seg Neuts % (Manual) Lymphocytes % (Manual) Nucleated RBC % Seg Neutrophils # 13.3 H Seg Neutrophils # Man Lymphocytes # (Manual) Monocytes # (Manual) Eosinophils # (Manual) Heparin Anti-Xa Level ABG pO2 ABG HCO3 ABG O2 Saturation ABG Base Excess ABG Hemoglobin Oxyhemoglobin Sodium Potassium Chloride Carbon Dioxide BUN Creatinine Glucose POC Glucose 115 H 166 H Hemoglobin A1c Calcium AST ALT Alkaline Phosphatase Total Creatine Kinase CK-MB (CK-2) CK-MB (CK-2) Rel Index Troponin T Total Protein Albumin Triglycerides LDL Cholesterol Direct 03/31/20 03/31/20 03/31/20 04:27 07:37 11:46 WBC RBC Hgb Hct MCHC RDW Lymph % (Auto) [place] % (Auto) Churchill # Seg Neutrophils % Seg Neuts % (Manual) Lymphocytes % (Manual) Nucleated RBC % Seg Neutrophils # Seg Neutrophils # Man Lymphocytes # (Manual) Monocytes # (Manual) Eosinophils # (Manual) Heparin Anti-Xa Level ABG pO2 ABG HCO3 ABG O2 Saturation ABG Base Excess ABG Hemoglobin Oxyhemoglobin Sodium 133 L Potassium Chloride 96.6 L Carbon Dioxide 18 L BUN 75 H Creatinine 2.5 H D Glucose 129 H POC Glucose 156 H 224 H Hemoglobin A1c Calcium 8.0 L AST ALT Alkaline Phosphatase Total Creatine Kinase CK-MB (CK-2) CK-MB (CK-2) Rel Index Troponin T Total Protein Albumin Triglycerides LDL Cholesterol Direct 04/01/20 04/01/20 04/01/20 08:34 10:52 10:52 WBC 12.9 H RBC 2.75 L Hgb 8.2 L Hct 24.8 L MCHC RDW Lymph % (Auto) 10.6 L [place] % (Auto) Churchill # Seg Neutrophils % 83.7 H Seg Neuts % (Manual) Lymphocytes % (Manual) Nucleated RBC % Seg Neutrophils # 10.8 H Seg Neutrophils # Man Lymphocytes # (Manual) Monocytes # (Manual) Eosinophils # (Manual) Heparin Anti-Xa Level ABG pO2 ABG HCO3 ABG O2 Saturation ABG Base Excess ABG Hemoglobin Oxyhemoglobin Sodium 131 L Potassium Chloride 96.1 L Carbon Dioxide 17 L BUN 77 H Creatinine 2.3 H Glucose 205 H POC Glucose 110 H Hemoglobin A1c Calcium 7.9 L AST ALT Alkaline Phosphatase Total Creatine Kinase CK-MB (CK-2) CK-MB (CK-2) Rel Index Troponin T Total Protein Albumin Triglycerides LDL Cholesterol Direct 04/01/20 04/01/20 04/01/20 12:15 17:22 20:47 WBC RBC Hgb Hct MCHC RDW Lymph % (Auto) [place] % (Auto) [place] # Seg Neutrophils % Seg Neuts % (Manual) Lymphocytes % (Manual) Nucleated RBC % Seg Neutrophils # Seg Neutrophils # Man Lymphocytes # (Manual) Monocytes # (Manual) Eosinophils # (Manual) Heparin Anti-Xa Level ABG pO2 ABG HCO3 ABG O2 Saturation ABG Base Excess ABG Hemoglobin Oxyhemoglobin Sodium Potassium Chloride Carbon Dioxide BUN Creatinine Glucose POC Glucose 201 H 219 H 156 H Hemoglobin A1c Calcium AST ALT Alkaline Phosphatase Total Creatine Kinase CK-MB (CK-2) CK-MB (CK-2) Rel Index Troponin T Total Protein Albumin Triglycerides LDL Cholesterol Direct 04/02/20 04/02/20 04/02/20 05:44 05:44 11:32 WBC 15.8 H RBC 2.81 L Hgb 8.2 L Hct 25.7 L MCHC RDW Lymph % (Auto) Churchill % (Auto) Churchill # 0.9 H Seg Neutrophils % 77.7 H Seg Neuts % (Manual) Lymphocytes % (Manual) Nucleated RBC % Seg Neutrophils # 12.3 H Seg Neutrophils # Man Lymphocytes # (Manual) Monocytes # (Manual) Eosinophils # (Manual) Heparin Anti-Xa Level ABG pO2 ABG HCO3 ABG O2 Saturation ABG Base Excess ABG Hemoglobin Oxyhemoglobin Sodium 134 L Potassium Chloride Carbon Dioxide 19 L BUN 76 H Creatinine 2.0 H Glucose POC Glucose 116 H Hemoglobin A1c Calcium 8.0 L AST 291 H ALT 169 H Alkaline Phosphatase 256 H Total Creatine Kinase CK-MB (CK-2) CK-MB (CK-2) Rel Index Troponin T Total Protein 6.1 L Albumin 2.2 L Triglycerides LDL Cholesterol Direct 04/02/20 04/02/20 04/03/20 16:56 22:03 08:13 WBC RBC Hgb Hct MCHC RDW Lymph % (Auto) Churchill % (Auto) Churchill # Seg Neutrophils % Seg Neuts % (Manual) Lymphocytes % (Manual) Nucleated RBC % Seg Neutrophils # Seg Neutrophils # Man Lymphocytes # (Manual) Monocytes # (Manual) Eosinophils # (Manual) Heparin Anti-Xa Level ABG pO2 ABG HCO3 ABG O2 Saturation ABG Base Excess ABG Hemoglobin Oxyhemoglobin Sodium Potassium Chloride Carbon Dioxide BUN Creatinine Glucose POC Glucose 141 H 152 H 126 H Hemoglobin A1c Calcium AST ALT Alkaline Phosphatase Total Creatine Kinase CK-MB (CK-2) CK-MB (CK-2) Rel Index Troponin T Total Protein Albumin Triglycerides LDL Cholesterol Direct 04/03/20 04/03/20 04/03/20 12:11 16:26 21:33 WBC RBC Hgb Hct MCHC RDW Lymph % (Auto) Churchill % (Auto) Churchill # Seg Neutrophils % Seg Neuts % (Manual) Lymphocytes % (Manual) Nucleated RBC % Seg Neutrophils # Seg Neutrophils # Man Lymphocytes # (Manual) Monocytes # (Manual) Eosinophils # (Manual) Heparin Anti-Xa Level ABG pO2 ABG HCO3 ABG O2 Saturation ABG Base Excess ABG Hemoglobin Oxyhemoglobin Sodium Potassium Chloride Carbon Dioxide BUN Creatinine Glucose POC Glucose 139 H 164 H 147 H Hemoglobin A1c Calcium AST ALT Alkaline Phosphatase Total Creatine Kinase CK-MB (CK-2) CK-MB (CK-2) Rel Index Troponin T Total Protein Albumin Triglycerides LDL Cholesterol Direct 04/04/20 04/04/20 04/04/20 04:29 04:29 11:29 WBC 12.3 H RBC 2.88 L Hgb 8.4 L Hct 26.1 L MCHC RDW Lymph % (Auto) Churchill % (Auto) Churchill # Seg Neutrophils % 75.4 H Seg Neuts % (Manual) Lymphocytes % (Manual) Nucleated RBC % Seg Neutrophils # 9.3 H Seg Neutrophils # Man Lymphocytes # (Manual) Monocytes # (Manual) Eosinophils # (Manual) Heparin Anti-Xa Level ABG pO2 ABG HCO3 ABG O2 Saturation ABG Base Excess ABG Hemoglobin Oxyhemoglobin Sodium 136 L Potassium Chloride Carbon Dioxide 19 L BUN 71 H Creatinine 1.7 H Glucose POC Glucose 108 H Hemoglobin A1c Calcium 8.0 L AST 673 H ALT 252 H Alkaline Phosphatase 311 H Total Creatine Kinase CK-MB (CK-2) CK-MB (CK-2) Rel Index Troponin T Total Protein Albumin 2.2 L Triglycerides LDL Cholesterol Direct 04/04/20 04/04/20 04/05/20 16:34 20:58 03:54 WBC 13.7 H RBC 3.03 L Hgb 8.7 L Hct 27.9 L MCHC 31 L RDW 15.5 H Lymph % (Auto) Churchill % (Auto) Churchill # Seg Neutrophils % 78.9 H Seg Neuts % (Manual) Lymphocytes % (Manual) Nucleated RBC % Seg Neutrophils # 10.8 H Seg Neutrophils # Man Lymphocytes # (Manual) Monocytes # (Manual) Eosinophils # (Manual) Heparin Anti-Xa Level ABG pO2 ABG HCO3 ABG O2 Saturation ABG Base Excess ABG Hemoglobin Oxyhemoglobin Sodium Potassium Chloride Carbon Dioxide BUN Creatinine Glucose POC Glucose 151 H 131 H Hemoglobin A1c Calcium AST ALT Alkaline Phosphatase Total Creatine Kinase CK-MB (CK-2) CK-MB (CK-2) Rel Index Troponin T Total Protein Albumin Triglycerides LDL Cholesterol Direct 04/05/20 03:54 WBC RBC Hgb Hct MCHC RDW Lymph % (Auto) Churchill % (Auto) Churchill # Seg Neutrophils % Seg Neuts % (Manual) Lymphocytes % (Manual) Nucleated RBC % Seg Neutrophils # Seg Neutrophils # Man Lymphocytes # (Manual) Monocytes # (Manual) Eosinophils # (Manual) Heparin Anti-Xa Level ABG pO2 ABG HCO3 ABG O2 Saturation ABG Base Excess ABG Hemoglobin Oxyhemoglobin Sodium 136 L Potassium 5.5 H Chloride Carbon Dioxide 21 L BUN 79 H Creatinine 1.9 H Glucose 63 L POC Glucose Hemoglobin A1c Calcium 8.2 L AST 696 H ALT 262 H Alkaline Phosphatase 325 H Total Creatine Kinase CK-MB (CK-2) CK-MB (CK-2) Rel Index Troponin T Total Protein Albumin 2.3 L Triglycerides LDL Cholesterol Direct Chest x-ray: pending Allied health notes reviewed: nursing
--- NOTE | 2020-04-05 15:11 | XRay Report ---
CHEST 1 VIEW INDICATION / CLINICAL INFORMATION: SOB. COMPARISON: 03/26/2020. FINDINGS: SUPPORT DEVICES: None. HEART / MEDIASTINUM: Enlarged cardiac silhouette is stable since prior exam. LUNGS / PLEURA: Minimal interval worsening of previously noted bibasilar opacities. Interval developm ent of left pleural effusion. No pneumothorax. ADDITIONAL FINDINGS: Sternotomy wires are stable. IMPRESSION: 1. Minimal interval worsening of previously noted congestive heart failure and bilateral pulmonary ed nicolas. 2. Interval development of small left sided pleural effusion. Signer Name: Ean Rodrigez MD Signed: 04/05/2020 3:06 PM Workstation Name: [id number]
[2020-04-05 16:23] LABS: ABG HCO3 26.1 mmol/L (20.0-26.0); ABG Methemoglobin 0.4 % (0.0-1.5); ABG Oxygen Saturation 93.4 % (95.0-99.0); ABG PCO2 43.5 mm Hg; ABG PH 7.395 pH Units (7.350-7.450); ABG PO2 67.1 mm Hg (80.0-90.0)
--- NOTE | 2020-04-05 17:58 | Gastroenterology Consultation ---
History of Present Illness - Reason for Consult Consult date: 04/05/20 Abnormal Liver Enzymes Requesting physician: GURPREET ABDULLAHI - History of Present Illness The patient is a 54 yo male admitted with arterial occlusion of the LE, that has not responded to revascularization over the last 10 days, and amputation was performed. He was incidentally noted in the last 3 days to have elevated LFTs. There is no hx of liver disease. He has no hx of hepatitis, and no hx of severe tobacco. He is on numerous new medications, and has gallstones (but no cholecystitis) on imaging. He was unable to tolerate a HIDA today, but he has been eating without post-prandial vomiting or pain. Past History Past Medical History: CAD, COPD, diabetes, hypertension, hyperlipidemia, other (Morbid obesity) Past Surgical History: CABG, Other (New BKA) Social history: smoking (Current every day smoker) Family history: no significant family history Medications and Allergies Allergies Allergy/AdvReac Type Severity Reaction Status Date / Time No Known Allergies Allergy Unverified 03/18/20 15:17 Home Medications Medication Instructions Recorded Confirmed Last Taken Type AtorvaSTATin [Lipitor] 20 mg PO QHS 03/20/20 03/20/20 03/14/20 History Clopidogrel [Plavix] 75 mg PO QHS 03/20/20 03/20/20 03/14/20 History Famotidine [Acid Controller] 20 mg PO BID 03/20/20 03/20/20 03/14/20 History Fenofibrate Nanocrystallized 48 mg PO DAILY 03/20/20 03/20/20 03/14/20 History [Fenofibrate] Metoprolol Tartrate 25 mg PO BID 03/20/20 03/20/20 03/14/20 History Pregabalin [Lyrica] 150 mg PO BID 03/20/20 03/20/20 03/14/20 History amLODIPine [Norvasc] 5 mg PO DAILY 03/20/20 03/20/20 03/14/20 History glipiZIDE [Glucotrol] 10 mg PO BID 03/20/20 03/20/20 03/14/20 History hydroCHLOROthiazide [HCTZ] 25 mg PO QDAY 03/20/20 03/20/20 03/14/20 History lisinopriL [Zestril TAB] 40 mg PO QDAY 03/20/20 03/20/20 03/14/20 History Active Meds: Active Medications Acetaminophen/Hydrocodone Bitart ([place] 5/325) 2 each PO Q4H PRN PRN Reason: Pain, Moderate (4-6) Last Admin: 04/04/20 10:51 Dose: 2 each Documented by: Albuterol (Proventil) 2.5 mg IH Q6HRT PRN PRN Reason: Shortness Of Breath Apixaban (Eliquis) 5 mg PO Q12HR LOI; Protocol Last Admin: 04/05/20 10:36 Dose: 5 mg Documented by: Arformoterol Tartrate (Brovana Nebu) 15 mcg IH Q12HRT LOI Last Admin: 04/05/20 08:23 Dose: 15 mcg Documented by: Atorvastatin Calcium (Lipitor) 40 mg PO QHS LOI Last Admin: 04/04/20 21:57 Dose: 40 mg Documented by: Budesonide (Pulmicort) 0.5 mg IH Q12HRT LOI Last Admin: 04/05/20 08:23 Dose: 0.5 mg Documented by: Clopidogrel Bisulfate (Plavix) 75 mg PO QDAY LOI Last Admin: 04/05/20 10:36 Dose: 75 mg Documented by: Dextrose (D50w (25gm) Syringe) 50 ml IV Q30MIN PRN; Protocol PRN Reason: Hypoglycemia Diphenhydramine HCl (Benadryl) 25 mg IV Q4H PRN PRN Reason: Itching Guaifenesin (Guaifenesin Dm Syrup) 10 ml PO Q4H PRN PRN Reason: Cough Last Admin: 04/02/20 05:34 Dose: 10 ml Documented by: Hydromorphone/Sodium Chloride (Dilaudid Gum Worker 6mg/30ml) 0 mg IV DIRECT LOI; Protocol Last Admin: 03/30/20 02:09 Dose: 1 cart Documented by: Piperacillin Sod/Tazobactam Sod (Zosyn/Ns 4.5gm/100ml) 4.5 gm in 100 mls @ 200 mls/hr IV Q8HR LOI Stop: 04/06/20 13:59 Last Admin: 04/05/20 13:01 Dose: 200 mls/hr Documented by: Insulin Glargine (Lantus) 25 units SUB-Q QHS LOI Last Admin: 04/04/20 21:59 Dose: 25 units Documented by: Insulin Human Lispro (Humalog) 0 unit SUB-Q ACHS [facility]; Protocol Last Admin: 04/05/20 16:07 Dose: Not Given Documented by: Insulin Human Lispro (Humalog) 8 unit SUB-Q AC [facility] Last Admin: 04/05/20 16:24 Dose: Not Given Documented by: Ipratropium Howard (Atrovent) 0.5 mg IH Q6HRT PRN PRN Reason: Shortness Of Breath Magnesium Hydroxide (Milk Of Magnesia) 30 ml PO Q4H PRN PRN Reason: Constipation Metoprolol Tartrate (Metoprolol) 50 mg PO BID [facility] Last Admin: 04/05/20 10:36 Dose: 50 mg Documented by: Naloxone HCl (Naloxone) 0.1 mg IV Q2MIN PRN PRN Reason: Res Rate </= 8 or 02 SAT < 92% Ondansetron HCl (Zofran) 4 mg IV Q8H PRN PRN Reason: Nausea And Vomiting Last Admin: 04/05/20 01:46 Dose: 4 mg Documented by: Pantoprazole Sodium (Protonix) 40 mg PO BID [facility] Last Admin: 04/05/20 10:36 Dose: 40 mg Documented by: Pregabalin (Pregabalin) 150 mg PO BID [facility] Last Admin: 04/05/20 10:36 Dose: 150 mg Documented by: Sodium Chloride (Sodium Chloride Flush Syringe 10 Ml) 10 ml IV BID [facility] Last Admin: 04/05/20 10:36 Dose: 10 ml Documented by: Sodium Chloride (Sodium Chloride Flush Syringe 10 Ml) 10 ml IV PRN PRN PRN Reason: LINE FLUSH Last Admin: 03/22/20 19:52 Dose: 10 ml Documented by: Zolpidem Tartrate (Ambien) 5 mg PO QHS PRN PRN Reason: Sleep Last Admin: 04/05/20 01:46 Dose: 5 mg Documented by: MEDICATIONS REVIEWED AND RECONCILED Review of Systems - Review of Systems All systems: negative (as noted in the HPI) Exam - Constitutional Vital Signs: Temp Pulse Resp BP Pulse Ox 98.7 F 62 20 108/73 100 04/05/20 15:35 04/05/20 15:35 04/05/20 15:35 04/05/20 15:35 04/05/20 15:35 General appearance: no acute distress, obese - EENT Eyes: PERRL, EOM intact ENT: hearing intact, clear oral mucosa - Neck Neck: supple, normal ROM - Respiratory Respiratory effort: normal Respiratory: bilateral: CTA - Cardiovascular Rhythm: regular Heart Sounds: Present: S1 & S2 Extremities: no ischemia, No edema - Gastrointestinal General gastrointestinal: Present: soft, non-tender, non-distended - Integumentary Integumentary: Present: clear, warm, dry - Musculoskeletal Musculoskeletal: other (New BKA) - Neurologic Neurological: alert and oriented x3 - Labs CBC & Chem 7: 04/05/20 03:54 04/05/20 03:54 Lab Results: Laboratory Results - last 24 hr 04/04/20 04/05/20 04/05/20 20:58 03:54 03:54 WBC 13.7 H RBC 3.03 L Hgb 8.7 L Hct 27.9 L MCV 92 MCH 29 MCHC 31 L RDW 15.5 H Plt Count 330 Lymph % (Auto) 14.7 [place] % (Auto) 5.6 Eos % (Auto) 0.5 Baso % (Auto) 0.3 Lymph # 2.0 [place]ron # 0.8 Eos # 0.1 Baso # 0.0 Seg Neutrophils % 78.9 H Seg Neutrophils # 10.8 H ABG pH ABG pCO2 ABG pO2 ABG HCO3 ABG O2 Saturation ABG O2 Content ABG Base Excess ABG Hemoglobin ABG Carboxyhemoglobin ABG Methemoglobin Oxyhemoglobin FiO2 Sodium 136 L Potassium 5.5 H Chloride 101.9 Carbon Dioxide 21 L Anion Gap 19 BUN 79 H Creatinine 1.9 H Estimated GFR 37 BUN/Creatinine Ratio 42 Glucose 63 L POC Glucose 131 H Calcium 8.2 L Total Bilirubin 0.80 AST 696 H ALT 262 H Alkaline Phosphatase 325 H Total Protein 6.3 Albumin 2.3 L Albumin/Globulin Ratio 0.6 04/05/20 04/05/20 04/05/20 07:33 11:29 15:58 WBC RBC Hgb Hct MCV MCH MCHC RDW Plt Count Lymph % (Auto) [place] % (Auto) Eos % (Auto) Baso % (Auto) Lymph # [place] # Eos # Baso # Seg Neutrophils % Seg Neutrophils # ABG pH ABG pCO2 ABG pO2 ABG HCO3 ABG O2 Saturation ABG O2 Content ABG Base Excess ABG Hemoglobin ABG Carboxyhemoglobin ABG Methemoglobin Oxyhemoglobin FiO2 Sodium Potassium Chloride Carbon Dioxide Anion Gap BUN Creatinine Estimated GFR BUN/Creatinine Ratio Glucose POC Glucose 71 78 129 H Calcium Total Bilirubin AST ALT Alkaline Phosphatase Total Protein Albumin Albumin/Globulin Ratio 04/05/20 15:58 WBC RBC Hgb Hct MCV MCH MCHC RDW Plt Count Lymph % (Auto) [place] % (Auto) Eos % (Auto) Baso % (Auto) Lymph # [place] # Eos # Baso # Seg Neutrophils % Seg Neutrophils # ABG pH 7.395 ABG pCO2 43.5 ABG pO2 67.1 L ABG HCO3 26.1 H ABG O2 Saturation 93.4 L ABG O2 Content 11.6 ABG Base Excess 1.0 ABG Hemoglobin 9.0 L ABG Carboxyhemoglobin 1.5 ABG Methemoglobin 0.4 Oxyhemoglobin 91.6 L FiO2 21 Sodium Potassium Chloride Carbon Dioxide Anion Gap BUN Creatinine Estimated GFR BUN/Creatinine Ratio Glucose POC Glucose Calcium Total Bilirubin AST ALT Alkaline Phosphatase Total Protein Albumin Albumin/Globulin Ratio Assessment and Plan - Patient Problems (1) Abnormal liver enzymes Current Visit: Yes Status: Acute Plan to address problem: - Gallstones present, but agree with surgery no signs of cholecystitis. More likely from sepsis/recent gangrene/multiple surgical procedures. - Will check Hep B and C serologies. - Will check ferritin. - Will consider d/c of medications based on above studies. - No mass seen on recent imaging studies.
--- NOTE | 2020-04-05 20:44 | Progress Note ---
Assessment and Plan Assessment and plan: --Transaminitis; unknown etiology, slowly trend Abdominal ultrasound, fatty liver, thickening of gallbladder Suspect cholecystitis, consulted GI and surgeon Patient was unable to lie flat, HIDA scan canceled Follow GI and surgery recommendations --Anemia; Current Visit: Yes Status: Acute Gradual l drop in H&H, closely monitor and transfuse as needed --Hypotension; Current Visit: Yes Status: Acute patient LINE CLOSER pump on hold due to hypotension And give low-dose Dilaudid every 6 hours as needed for pain. Closely monitor blood pressures, fluid bolus as needed --Acute kidney injury; vasomotor nephropathy Current Visit: Yes Status: Acute Gentle hydration, monitor renal function Avoid nephrotoxins, nephrology consult if needed --Hyperkalemia; resolved Current Visit: Yes Status: Acute Monitor electrolytes. --Insomnia; Current Visit: Yes Status: Acute Optimal pain medications, sleeping aid Ambien 5 mg nightly --Acute left lower extremity ischemia,s/p Lt BKA Current Visit: Yes Status: Acute 03/19/2020 status post endovascular revascularization. 03/19/2020 s/p left LE, 4 compartment fasciotomy per vascular 03/25/2020 s/p left BKA on --SIRS; without organ dysfunction Current Visit: Yes Status: Acute leukocytosis trending down, continue Zosyn tachycardia, resolved --Non-ST elevation CA : Current Visit: Yes Status: Acute Patient has history of CABG Cardiology evaluated, conservative management --Acute systolic CHF; EF 30-35%% Current Visit: Yes Status: Acute Beta-blockers, BIJAN inhibitor, diuretics Improved -- Hyperglycemia due to diabetes mellitus Current Visit: Yes Status: Acute Accu-Chek sliding scale coverage ADA diet Long-acting insulin as needed, A1c11.0 --Nicotine dependence Current Visit: Yes Status: Acute Smoking cessation nicotine patch as needed --DVT prophylaxis Current Visit: Yes Status: Acute Patient currently on anticoagulation. -- Full code status Current Visit: Yes Status: Acute Patient is on heparin drip Discharge planning issues Disposition ;acute rehab placement, insurance did not approve Planning SNF placement Monitor closely and adjust management as needed Plan of care reviewed with the patient and his nurse 03/19/2020 status post endovascular revascularization. 03/19/2020 s/p left lower extremity 4 compartment fasciotomy 03/25/2020; s/p left BKA on 03/26/20; evaluated by PT, recommend acute rehab 03/29/20; acute rehab facility from [facility] evaluated the patient Patient is not ready for acute rehab, they will reevaluate 03/30/20; complains of insomnia, add Ambien 03/31; patient is hypotensive, LINE CLOSER pump discontinued. Added Dilaudid IV as needed 04/01; patient has worsening renal function, and drop in H&H, closely monitor transfuse as needed 04/02; insurance did not approve acute rehab, SNF placement is being processed 04/03: Patient has elevated LFTs WBC remain high, abdominal ultrasound 04/04; abdominal ultrasound findings noted, fatty liver, thickened gallbladder possible cholecystitis HIDA scan requested, discussed with Dr. Rhodes for further evaluation and recommendation 04/05; patient unable to list flat HIDA scan, test canceled, follow GI and surgery evaluation Brief history; 54-year-old male with known history of CVA without any residual deficits, hypertension ,diabetes mellitus, coronary artery disease with CABG x2, pulmonary embolism and DVT presented to the emergency room today with a complaint of left foot pain and discoloration for about a week.His leg is cool from the knee down and cold and mottled from the lower calf down. He has an insensate foot from the midfoot down with no ability to move the toes. This has been present since he woke up. Last time he had function in his foot was last night. Left lower extremity ischemia, vascular evaluated, status post fasciotomy and cecille scularization. 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/2020, persistent leukocytosis, transaminitis, surgery GI following, DC planning in progress History Interval history: I have seen and examined the patient at the bedside Patient's chart and medications reviewed Patient is in mild shortness of breath Alert awake responding appropriately Vital signs reviewed Hospitalist Physical - Constitutional Vitals: Temp Pulse Resp BP Pulse Ox 98.0 F 73 18 99/71 100 04/05/20 19:22 04/05/20 19:22 04/05/20 19:22 04/05/20 19:22 04/05/20 19:22 General appearance: Present: no acute distress, well-nourished, obese (Morbidly) - EENT Eyes: Present: PERRL, EOM intact - Neck Neck: Present: supple, normal ROM - Respiratory Respiratory effort: normal Respiratory: bilateral: diminished, rales, negative: rhonchi, wheezing - Cardiovascular Rhythm: regular Heart Sounds: Present: S1 & S2 - Extremities Extremities: abnormal (Left BKA dressing in place) Extremity abnormal: edema - Abdominal General gastrointestinal: soft, non-tender, non-distended, normal bowel sounds - Integumentary Integumentary: Present: clear, warm - Psychiatric Psychiatric: appropriate mood/affect, cooperative - Neurologic Neurologic: moves all extremities HEART Score - HEART Score Troponin: Troponin T 3.200 ng/mL (0.00-0.029) H* D 03/20/20 05:12 Results - Labs CBC & Chem 7: 04/05/20 03:54 04/05/20 03:54 Labs: Laboratory Last Values WBC 13.7 K/mm3 (4.5-11.0) H 04/05/20 03:54 RBC 3.03 M/mm3 (3.65-5.03) L 04/05/20 03:54 Hgb 8.7 gm/dl (11.8-15.2) L 04/05/20 03:54 Hct 27.9 % (35.5-45.6) L 04/05/20 03:54 MCV 92 fl (84-94) 04/05/20 03:54 MCH 29 pg (28-32) 04/05/20 03:54 MCHC 31 % (32-34) L 04/05/20 03:54 RDW 15.5 % (13.2-15.2) H 04/05/20 03:54 Plt Count 330 K/mm3 (140-440) 04/05/20 03:54 Lymph % (Auto) 14.7 % (13.4-35.0) 04/05/20 03:54 Lander % (Auto) 5.6 % (0.0-7.3) 04/05/20 03:54 Eos % (Auto) 0.5 % (0.0-4.3) 04/05/20 03:54 Baso % (Auto) 0.3 % (0.0-1.8) 04/05/20 03:54 Lymph # 2.0 K/mm3 (1.2-5.4) 04/05/20 03:54 Lander # 0.8 K/mm3 (0.0-0.8) 04/05/20 03:54 Eos # 0.1 K/mm3 (0.0-0.4) 04/05/20 03:54 Baso # 0.0 K/mm3 (0.0-0.1) 04/05/20 03:54 Add Manual Diff Complete 03/29/20 14:19 Total Counted 100 03/29/20 14:19 Seg Neutrophils % 78.9 % (40.0-70.0) H 04/05/20 03:54 Seg Neuts % (Manual) 85.0 % (40.0-70.0) H 03/29/20 14:19 Band Neutrophils % 0 % 03/29/20 14:19 Lymphocytes % (Manual) 11.0 % (13.4-35.0) L 03/29/20 14:19 Reactive Lymphs % (Man) 0 % 03/29/20 14:19 Monocytes % (Manual) 1.0 % (0.0-7.3) 03/29/20 14:19 Eosinophils % (Manual) 3.0 % (0.0-4.3) 03/29/20 14:19 Basophils % (Manual) 0 % (0.0-1.8) 03/29/20 14:19 Metamyelocytes % 0 % 03/29/20 14:19 Myelocytes % 0 % 03/29/20 14:19 Promyelocytes % 0 % 03/29/20 14:19 Blast Cells % 0 % 03/29/20 14:19 Nucleated RBC % 3.0 % (0.0-0.9) H 03/29/20 14:19 Seg Neutrophils # 10.8 K/mm3 (1.8-7.7) H 04/05/20 03:54 Seg Neutrophils # Man 18.3 K/mm3 (1.8-7.7) H 03/29/20 14:19 Band Neutrophils # 0.0 K/mm3 03/29/20 14:19 Lymphocytes # (Manual) 2.4 K/mm3 (1.2-5.4) 03/29/20 14:19 Abs React Lymphs (Man) 0.0 K/mm3 03/29/20 14:19 Monocytes # (Manual) 0.2 K/mm3 (0.0-0.8) 03/29/20 14:19 Eosinophils # (Manual) 0.6 K/mm3 (0.0-0.4) H 03/29/20 14:19 Basophils # (Manual) 0.0 K/mm3 (0.0-0.1) 03/29/20 14:19 Metamyelocytes # 0.0 K/mm3 03/29/20 14:19 Myelocytes # 0.0 K/mm3 03/29/20 14:19 Promyelocytes # 0.0 K/mm3 03/29/20 14:19 Blast Cells # 0.0 K/mm3 03/29/20 14:19 WBC Morphology Not Reportable 03/29/20 14:19 Hypersegmented Neuts Not Reportable 03/29/20 14:19 Hyposegmented Neuts Not Reportable 03/29/20 14:19 Hypogranular Neuts Not Reportable 03/29/20 14:19 Smudge Cells Not Reportable 03/29/20 14:19 Toxic Granulation Not Reportable 03/29/20 14:19 Toxic Vacuolation Not Reportable 03/29/20 14:19 Dohle Bodies Not Reportable 03/29/20 14:19 Pelger-Huet Anomaly Not Reportable 03/29/20 14:19 Ananya Rods Not Reportable 03/29/20 14:19 Platelet Estimate Consistent w auto 03/29/20 14:19 Clumped Platelets Not Reportable 03/29/20 14:19 Plt Clumps, EDTA Not Reportable 03/29/20 14:19 Large Platelets Not Reportable 03/29/20 14:19 Giant Platelets Not Reportable 03/29/20 14:19 Platelet Satelliting Not Reportable 03/29/20 14:19 Plt Morphology Comment Not Reportable 03/29/20 14:19 RBC Morphology Not Reportable 03/29/20 14:19 Dimorphic RBCs Not Reportable 03/29/20 14:19 Polychromasia Not Reportable 03/29/20 14:19 Hypochromasia Not Reportable 03/29/20 14:19 Poikilocytosis Not Reportable 03/29/20 14:19 Anisocytosis 1+ 03/29/20 14:19 Microcytosis Not Reportable 03/29/20 14:19 Macrocytosis Not Reportable 03/29/20 14:19 Spherocytes Not Reportable 03/29/20 14:19 Pappenheimer Bodies Not Reportable 03/29/20 14:19 Sickle Cells Not Reportable 03/29/20 14:19 Target Cells Not Reportable 03/29/20 14:19 Tear Drop Cells Not Reportable 03/29/20 14:19 Ovalocytes Not Reportable 03/29/20 14:19 Helmet Cells Not Reportable 03/29/20 14:19 Light-Circle Bodies Not Reportable 03/29/20 14:19 [place] Rings Not Reportable 03/29/20 14:19 Kianna Cells Not Reportable 03/29/20 14:19 Bite Cells Not Reportable 03/29/20 14:19 Crenated Cell Not Reportable 03/29/20 14:19 Elliptocytes Not Reportable 03/29/20 14:19 Acanthocytes (Spur) Not Reportable 03/29/20 14:19 Rouleaux Not Reportable 03/29/20 14:19 Hemoglobin C Crystals Not Reportable 03/29/20 14:19 Schistocytes Not Reportable 03/29/20 14:19 Malaria parasites Not Reportable 03/29/20 14:19 Steven Bodies Not Reportable 03/29/20 14:19 Hem Pathologist Commnt No 03/29/20 14:19 PT 12.7 Sec. (12.2-14.9) 03/19/20 08:08 INR 0.94 (0.87-1.13) 03/19/20 08:08 APTT 27.7 Sec. (24.2-36.6) 03/18/20 18:28 Heparin Anti-Xa Level 0.10 U.I./ml (0.3-0.7) L 03/25/20 04:06 ABG pH 7.395 pH Units (7.350-7.450) 04/05/20 15:58 ABG pCO2 43.5 mm Hg 04/05/20 15:58 ABG pO2 67.1 mm Hg (80.0-90.0) L 04/05/20 15:58 ABG HCO3 26.1 mmol/L (20.0-26.0) H 04/05/20 15:58 ABG O2 Saturation 93.4 % (95.0-99.0) L 04/05/20 15:58 ABG O2 Content 11.6 (0.0-44) 04/05/20 15:58 ABG Base Excess 1.0 mmol/L (-2.0-3.0) 04/05/20 15:58 ABG Hemoglobin 9.0 gm/dl (14.0-18.0) L 04/05/20 15:58 ABG Carboxyhemoglobin 1.5 % (0.0-5.0) 04/05/20 15:58 ABG Methemoglobin 0.4 % (0.0-1.5) 04/05/20 15:58 Oxyhemoglobin 91.6 % (95.0-99.0) L 04/05/20 15:58 FiO2 21 % 04/05/20 15:58 Sodium 136 mmol/L (137-145) L 04/05/20 03:54 Potassium 5.5 mmol/L (3.6-5.0) H 04/05/20 03:54 Chloride 101.9 mmol/L (98-107) 04/05/20 03:54 Carbon Dioxide 21 mmol/L (22-30) L 04/05/20 03:54 Anion Gap 19 mmol/L 04/05/20 03:54 BUN 79 mg/dL (9-20) H 04/05/20 03:54 Creatinine 1.9 mg/dL (0.8-1.3) H 04/05/20 03:54 Estimated GFR 37 ml/min 04/05/20 03:54 BUN/Creatinine Ratio 42 % 04/05/20 03:54 Glucose 63 mg/dL (75-100) L 04/05/20 03:54 POC Glucose 129 (70-105) H 04/05/20 15:58 Hemoglobin A1c 11.0 % (4-6) H 03/18/20 22:21 Calcium 8.2 mg/dL (8.4-10.2) L 04/05/20 03:54 Magnesium 2.20 mg/dL (1.7-2.3) 03/28/20 07:39 Total Bilirubin 0.80 mg/dL (0.1-1.2) 04/05/20 03:54 AST 696 units/L (5-40) H 04/05/20 03:54 ALT 262 units/L (7-56) H 04/05/20 03:54 Alkaline Phosphatase 325 units/L (35-129) H 04/05/20 03:54 Total Creatine Kinase 7255 units/L (55-170) H 03/19/20 08:08 CK-MB (CK-2) 79.3 ng/mL (0.0-4.0) H 03/19/20 08:08 CK-MB (CK-2) Rel Index 1.0 (0-4) 03/19/20 08:08 Troponin T 3.200 ng/mL (0.00-0.029) H* D 03/20/20 05:12 Total Protein 6.3 g/dL (6.3-8.2) 04/05/20 03:54 Albumin 2.3 g/dL (3.9-5) L 04/05/20 03:54 Albumin/Globulin Ratio 0.6 % 04/05/20 03:54 Triglycerides 188 mg/dL (2-149) H 03/18/20 18:28 Cholesterol 199 mg/dL (50-199) 03/18/20 18:28 LDL Cholesterol Direct 141 mg/dL (50-130) H 03/18/20 18:28 HDL Cholesterol 47 mg/dL (40-59) 03/18/20 18:28 Cholesterol/HDL Ratio 4.23 % 03/18/20 18:28 Coronavirus (PCR) Negative (Negative) 04/03/20 08:00 Blood Type B POSITIVE 03/25/20 11:42 Antibody Screen Negative 03/25/20 11:42 - Diagnostic Impressions Diagnostic Impressions: Echocardiogram 03/19/20 12:49 Transthoracic Echocardiogram Indication: CAD and Abnormal EKG HR: 110 Conclusions *The study is technically limited due to patient body habitus. *The left ventricular chamber size is mildly dilated. *Global left ventricular systolic function is moderate to severely decreased. *The estimated ejection fraction is 30-35%. *The basal inferolateral, and basal inferior wall segments are normal. *The mid inferolateral, mid inferior, apical lateral, and apical inferior wall segments are akinetic. *The left atrial chamber size is normal. Findings Procedure Info: The study is technically limited due to patient body habitus. The study was technically limited due to the patient's inability to lay in the left lateral decubitus position. Left Ventricle: The left ventricular chamber size is mildly dilated. Global left ventricular systolic function is moderate to severely decreased. The estimated ejection fraction is 30-35%. The basal inferolateral, and basal inferior wall segments are normal. The mid inferolateral, mid inferior, apical lateral, and apical inferior wall segments are akinetic. Left Atrium: The left atrial chamber size is normal. Right Ventricle: The right ventricle is not well visualized. Right Atrium: The right atrium is not well visualized. The right atrial cavity size is normal. Aortic Valve: The aortic valve is trileaflet. Mitral Valve: The mitral valve leaflets are moderately thickened. There is mild mitral regurgitation. Tricuspid Valve: The tricuspid valve is not well visualized. There is trace tricuspid regurgitation. Pulmonic Valve: The pulmonic valve is not well visualized. Pericardium: There is no pericardial effusion. Aorta: The aorta appears normal. Venous: The venous system is not well visualized. Contrast: Definity was used to optimize study. Measurements Chambers 2D Name Value Normal Range IVSd (2D) 0.94 cm (0.6 - 1.1) LVPWd (2D) 0.94 cm (0.6 - 1.1) LVIDd (2D) 6.15 cm (3.7 - 5.6) LVIDs (2D) 5.2 cm (2 - 3.8) LV FS (2D) 15.5 % - EF Teichholz (2D) 32.08 % - Ao root diameter (2D) 2.77 cm (2 - 3.7) Volumes/Mass Name Value Normal Range LA ESV SP 4CH (A/L) 73.77 ml - LA ESV SP 2CH (A/L) 66.45 ml - LA ESV BP (A/L) 71.61 ml - LA ESV BP (A/L) index 30.6 ml/m2 - LA ESV SP 4CH (MOD) 72.55 ml - LA ESV SP 2CH (MOD) 65.34 ml - LA ESV BP (MOD) 70.27 ml - LA ESV BP (MOD) index 30.03 ml/m2 - Diastolic/Systolic Function Name Value Normal Range MV E-wave Vmax 0.85 m/sec - MV deceleration time 69.14 msec - MV A-wave Vmax 0.89 m/sec - MV E:A ratio 0.95 ratio - Aortic Valve Name Value Normal Range AV Vmax 0.96 m/sec - AV VTI 11.83 cm - AV peak gradient 3.68 mmHg - AV mean gradient 1.6 mmHg - LVOT diameter 2.19 cm - LVOT Vmax 0.86 m/sec - LVOT VTI 13.33 cm - LVOT peak gradient 2.96 mmHg - LVOT mean gradient 1.48 mmHg - SV LVOT 50.08 ml - DEYA (continuity Vmax) 3.37 cm2 - DEYA (continuity VTI) 4.23 cm2 - Ascending Ao 2.92 cm - Pulmonic Valve/Qp:Qs Name Value Normal Range PV Vmax 1.08 m/sec - PV VTI 15.88 cm - PV peak gradient 4.7 mmHg - PV mean gradient 2.18 mmHg - RVOT Vmax 0.82 m/sec - RVOT VTI 11.48 cm - RVOT peak gradient 2.67 mmHg - Wallmotion BAS Not Seen BA Not Seen BAL Not Seen BAY Normal BI Normal BIS Not Seen MAS Not Seen MA Not Seen MAL Not Seen MIL Akinetic CA Akinetic MIS Not Seen Not Seen AA Not Seen AL Akinetic AI Akinetic APEX Not Seen Tyson/IV: Voiding Method Incontinent IV Catheter Type [Right Peripheral IV Forearm] IV Catheter Type [Right INT / Saline Lock Antecubital] IV Catheter Type [Left Forearm INT / Saline Lock ] IV Catheter Type [Left Upper Peripheral IV arm] IV Catheter Type [Left Peripheral IV Antecubital] Active Medications - Current Medications Current Medications: Generic Name Dose Route Start Last Admin Trade Name Freq PRN Reason Stop Dose Admin Acetaminophen/Hydrocodone Bitart 2 each 03/22/20 17:18 04/04/20 10:51 Sutton 5/325 PO 2 each Q4H PRN Administration Pain, Moderate (4-6) Albuterol 2.5 mg 04/01/20 00:03 Proventil IH Q6HRT PRN Shortness Of Breath Apixaban 5 mg 03/26/20 22:00 04/05/20 10:36 Eliquis PO 5 mg Q12HR LOI Administration Protocol Arformoterol Tartrate 15 mcg 03/19/20 20:00 04/05/20 08:23 Brovana Nebu IH 15 mcg Q12HRT LOI Administration Atorvastatin Calcium 40 mg 03/19/20 22:00 04/04/20 21:57 Lipitor PO 40 mg QHS LOI Administration Budesonide 0.5 mg 03/19/20 20:00 04/05/20 08:23 Pulmicort IH 0.5 mg Q12HRT LOI Administration Clopidogrel Bisulfate 75 mg 03/19/20 10:00 04/05/20 10:36 Plavix PO 75 mg QDAY LOI Administration Dextrose 50 ml 03/18/20 22:21 D50w (25gm) Syringe IV Q30MIN PRN Hypoglycemia Protocol Diphenhydramine HCl 25 mg 03/19/20 12:44 Benadryl IV Q4H PRN Itching Guaifenesin 10 ml 04/01/20 00:03 04/02/20 05:34 Guaifenesin Dm Syrup PO 10 ml Q4H PRN Administration Cough Hydromorphone/Sodium Chloride 0 mg 03/19/20 13:00 03/30/20 02:09 Dilaudid Monorail Crane Operator 6mg/30ml IV 1 cart DIRECT LOI Administration Protocol Piperacillin Sod/Tazobactam Sod 4.5 gm in 100 mls @ 200 mls/hr 04/02/20 14:00 04/05/20 13:01 Zosyn/Ns 4.5gm/100ml IV 04/06/20 13:59 200 mls/hr Q8HR LOI Administration Insulin Glargine 25 units 03/22/20 22:00 04/04/20 21:59 Lantus SUB-Q 25 units QHS [facility] Administration Insulin Human Lispro 0 unit 03/20/20 16:30 04/05/20 16:07 Humalog SUB-Q Not Given ACHS [facility] Protocol Insulin Human Lispro 8 unit 03/28/20 11:30 04/05/20 16:24 Humalog SUB-Q Not Given AC [facility] Ipratropium [place] 0.5 mg 04/01/20 00:05 Atrovent IH Q6HRT PRN Shortness Of Breath Magnesium Hydroxide 30 ml 03/18/20 22:21 Milk Of Magnesia PO Q4H PRN Constipation Metoprolol Tartrate 50 mg 03/19/20 22:00 04/05/20 10:36 Metoprolol PO 50 mg BID LOI Administration Naloxone HCl 0.1 mg 03/19/20 12:44 Naloxone IV Q2MIN PRN Res Rate </= 8 or 02 SAT < 92% Ondansetron HCl 4 mg 03/18/20 22:21 04/05/20 01:46 Zofran IV 4 mg Q8H PRN Administration Nausea And Vomiting Pantoprazole Sodium 40 mg 03/20/20 10:00 04/05/20 10:36 Protonix PO 40 mg BID LOI Administration Pregabalin 150 mg 03/22/20 22:00 04/05/20 10:36 Pregabalin PO 150 mg BID LOI Administration Sodium Chloride 10 ml 03/19/20 10:00 04/05/20 10:36 Sodium Chloride Flush Syringe 10 Ml IV 10 ml BID LOI Administration Sodium Chloride 10 ml 03/18/20 22:21 03/22/20 19:52 Sodium Chloride Flush Syringe 10 Ml IV 10 ml PRN PRN Administration LINE FLUSH Zolpidem Tartrate 5 mg 03/31/20 19:09 04/05/20 01:46 Ambien PO 5 mg QHS PRN Administration Sleep Nutrition/Malnutrition Assess - Dietary Evaluation Nutrition/Malnutrition Findings: Nutrition Notes Start: 03/19/20 11:59 Freq: Status: Active Protocol: Document 04/02/20 14:45 DAYO (Rec: 04/02/20 14:47 [facility] SRW- [id number]) Nutrition Notes Initial or Follow up Reassessment Current Diagnosis COPD,Diabetes Other Pertinent Diagnosis (L) LE ischemia s/p (L) BKA, STARR, NSTEMI Current Diet Cardiac/Consistent CHO Labs/Tests Na 134 BUN 76 Cr 2 Pertinent Medications reviewed Height 6 ft Weight 126 kg [place] Body Weight (kg) 80.90 BMI 37.6 Weight Status Obese Subjective/Other Information Unable to reach pt via phone. No PO intakes documented. Burn Absent Trauma Absent #1 Nutrition Diagnosis Increased nutrient needs ( specify in comment below) Diagnosis Progress(for reassessment Continues documentation) Is patient on ventilator? No Is Patient Ambulatory and/or Out of Bed No REE-([facility]-confined to bed) 2563.368 Kcal/Kg value to use for calculation 17 Approximate Energy Requirements Using 2142 kcal/Kg Calculation Used for Recommendations Kcal/kg Additional Notes Pro needs 1-1.2g/kg adjBW (not for amputation): 103-124g/day Fluid needs 1ml/kcal Nutrition Intervention Change Diet Order: Continue current diet order; honor food preferences Goal #1 PO intakes to meet at least 75 % energy and pro needs Goal #2 Healing of surgical site Follow-Up By: 04/08/20 Additional Comments F/U: intakes, wt
[2020-04-05] MEDS: HYDROcodone/ACETAMINOPHEN 5-325 MG TAB PO PRN (22:32)
[2020-04-05] MEDS: INSULIN GLARGINE 100 UNITS/ML SUB-Q SCH (23:49)
[2020-04-06] MEDS: FUROSEMIDE 40 MG/4 ML INJ IV SCH ×2 (05:42→17:31)
[2020-04-06] MEDS: PIPERACIL/TAZOBACTA 4.5/NS 100 4.5 GM/100 ML VIAL IV SCH (05:45)
[2020-04-06] MEDS: BUDESONIDE 0.5 MG/2 ML NEBU IH SCH ×2 (07:30→20:59)
[2020-04-06] MEDS: ARFORMOTEROL 15 MCG/2 ML NEBU IH SCH ×2 (07:30→20:59)
[2020-04-06 08:34] LABS: Albumin 2.2 g/dL (3.9-5); Calcium 8.4 mg/dL (8.4-10.2)
[2020-04-06] MEDS: [UNRECOGNIZED DRUG - REMARK] SUB-Q SCH ×4 (08:45→22:51)
[2020-04-06] MEDS: INSULIN LISPRO 100 UNIT/ML VIAL 3 mL SUB-Q SCH ×3 (08:46→16:57)
[2020-04-06] MEDS: PREGABALIN 75 MG CAP PO SCH ×2 (09:51→23:05)
[2020-04-06] MEDS: PANTOPRAZOLE 40 MG TAB PO SCH ×2 (09:52→22:49)
[2020-04-06] MEDS: CLOPIDOGREL 75 MG TAB PO SCH (09:52)
[2020-04-06] MEDS: METOPROLOL TARTRATE 50 MG TAB PO SCH ×2 (09:52→22:53)
[2020-04-06] MEDS: HYDROcodone/ACETAMINOPHEN 5-325 MG TAB PO PRN (09:52)
[2020-04-06] MEDS: APIXABAN 5 MG TAB PO SCH ×2 (09:53→22:49)
--- NOTE | 2020-04-06 12:20 | Progress Note ---
Assessment and Plan (1) Transaminitis Current Visit: Yes Status: Acute Plan to address problem: Patient has no clinical signs or symptoms to suggest acute cholecystitis at this time. He is tolerating a diet. Patient unable to tolerate HIDA scan as he could not lay flat. LFTs are mildly improved. GI consult noted and recommendations appreciated. No acute surgical intervention at this time. Thank you. Please call with questions Subjective Date of service: 04/06/20 Narrative: In and examined. He is sleepy this a.m. Has been afebrile and tolerating a diet. Could not tolerate HIDA scan due to inability to lie flat. No nausea or vomiting. Objective Vital Signs - 12hr 04/06/20 04/06/20 04/06/20 00:27 04:04 07:33 Temperature 97.8 F 98.0 F Pulse Rate 81 79 Pulse Rate [ Anterior Bilateral Throughout] Respiratory 18 18 Rate Respiratory Rate [Anterior Bilateral Throughout] Blood Pressure 134/85 93/70 O2 Sat by Pulse 95 97 97 Oximetry 04/06/20 04/06/20 04/06/20 07:50 08:11 09:50 Temperature 98.9 F Pulse Rate 74 72 Pulse Rate [ 79 Anterior Bilateral Throughout] Respiratory 20 Rate Respiratory 22 Rate [Anterior Bilateral Throughout] Blood Pressure 111/72 95/59 O2 Sat by Pulse 96 100 Oximetry 04/06/20 04/06/20 04/06/20 09:52 10:00 11:47 Temperature 98.2 F Pulse Rate 72 74 Pulse Rate [ Anterior Bilateral Throughout] Respiratory 24 18 Rate Respiratory Rate [Anterior Bilateral Throughout] Blood Pressure 95/59 105/73 O2 Sat by Pulse 96 Oximetry - General physical appearance Narrative Exam: General: Lethargic. Arousable and oriented to person. CV: S1, S2 present Respiratory: No audible wheezes Abdomen: Soft, nontender, nondistended - Labs 04/05/20 03:54 04/06/20 07:14 Diabetes panel 04/06/20 Range/Units 07:14 Sodium 139 (137-145) mmol/L Potassium 5.6 H (3.6-5.0) mmol/L Chloride 103.8 (98-107) mmol/L Carbon Dioxide 22 (22-30) mmol/L BUN 83 H (9-20) mg/dL Creatinine 1.9 H (0.8-1.3) mg/dL Glucose 202 H (75-100) mg/dL Calcium 8.4 (8.4-10.2) mg/dL AST 469 H (5-40) units/L ALT 237 H (7-56) units/L Alkaline Phosphatase 332 H (35-129) units/L Total Protein 6.6 (6.3-8.2) g/dL Albumin 2.2 L (3.9-5) g/dL Calcium panel 04/06/20 Range/Units 07:14 Calcium 8.4 (8.4-10.2) mg/dL Albumin 2.2 L (3.9-5) g/dL Pituitary panel 04/06/20 Range/Units 07:14 Sodium 139 (137-145) mmol/L Potassium 5.6 H (3.6-5.0) mmol/L Chloride 103.8 (98-107) mmol/L Carbon Dioxide 22 (22-30) mmol/L BUN 83 H (9-20) mg/dL Creatinine 1.9 H (0.8-1.3) mg/dL Glucose 202 H (75-100) mg/dL Calcium 8.4 (8.4-10.2) mg/dL Adrenal panel 04/06/20 Range/Units 07:14 Sodium 139 (137-145) mmol/L Potassium 5.6 H (3.6-5.0) mmol/L Chloride 103.8 (98-107) mmol/L Carbon Dioxide 22 (22-30) mmol/L BUN 83 H (9-20) mg/dL Creatinine 1.9 H (0.8-1.3) mg/dL Glucose 202 H (75-100) mg/dL Calcium 8.4 (8.4-10.2) mg/dL Total Bilirubin 0.70 (0.1-1.2) mg/dL AST 469 H (5-40) units/L ALT 237 H (7-56) units/L Alkaline Phosphatase 332 H (35-129) units/L Total Protein 6.6 (6.3-8.2) g/dL Albumin 2.2 L (3.9-5) g/dL
[2020-04-06 14:32] LABS: INR 2.44 (0.87-1.13)
--- NOTE | 2020-04-06 17:14 | Progress Note ---
Assessment and Plan Acute limb ischemia S/P revascularization surgery. Obstructive sleep apnea. History of chronic obstructive pulmonary disease. Acute hypoxemic respiratory failure. Diabetes. History of coronary artery disease. Non-ST elevation myocardial infarction. Acute coronary syndrome. History of cerebrovascular accident. - repeat CXR in 48-72 hours; follow clinically for now - continue NIV scheduled qhs / while asleep - continue wound care per WCN / RN - continue antiplatelet therapy with Eliquis and Plavix - no new issues otherwise, continue care as below; - further surgical intervention per Vascular team - accuchecks with glycemic control per SSI (While critically ill target blood glucose of 140-180 mg/dL; avoid hypoglycemia) - wean supplemental oxygen for target O2 sat's > 90% acutely - prn bronchodilators with pulmonary hygiene per RT - avoid benzodiazepine's, reduce the possibility of delirium - AB's per surgery rec's (No S&S of overwhelming sepsis) - prn analgesia per pain score - Maintenance of sleep-wake cycle, avoid delirium - aspiration precautions - G.I. & VTE prophylaxis - PT/OT/ROM exercises - mobility protocols for pressure ulcer prophylaxis - Monitor hemodynamics closely - continue other care per attending / other consultants - discharge planning ongoing concurrently - transferred to telemetry .... Re-evaluate in am & prn Subjective Date of service: 04/06/20 Principal diagnosis: Acute limb ischemia; STARR; COPD; Ac hypoxemic resp failure; DM II; NSTEMI Interval history: Patient is seen today for: Acute limb ischemia S/P revascularization surgery; STARR; COPD; Acute hypoxemic respiratory failure; DM II; NSTEMI; H/O CVA Seen and examined at bedside; 24hour events reviewed; nursing and respiratory care staff consulted; no adverse overnight events reported to me; resting peacefully in bed; ABG compensated; clinically stable; no N/V/F/C/chest pains Objective Vital Signs - 12hr 04/06/20 04/06/20 04/06/20 07:33 07:50 08:11 Temperature 98.9 F Pulse Rate 74 Pulse Rate [ 79 Anterior Bilateral Throughout] Respiratory 20 Rate Respiratory 22 Rate [Anterior Bilateral Throughout] Blood Pressure 111/72 O2 Sat by Pulse 97 96 Oximetry 04/06/20 04/06/20 04/06/20 09:50 09:52 10:00 Temperature Pulse Rate 72 72 Pulse Rate [ Anterior Bilateral Throughout] Respiratory 24 Rate Respiratory Rate [Anterior Bilateral Throughout] Blood Pressure 95/59 95/59 O2 Sat by Pulse 100 Oximetry 04/06/20 04/06/20 11:47 16:05 Temperature 98.2 F 98.2 F Pulse Rate 74 84 Pulse Rate [ Anterior Bilateral Throughout] Respiratory 18 20 Rate Respiratory Rate [Anterior Bilateral Throughout] Blood Pressure 105/73 138/94 O2 Sat by Pulse 96 100 Oximetry Constitutional: lethargic, other (middle aged obese male with hypoventilation clinically ) Eyes: non-icteric ENT: oropharynx moist Neck: supple, no lymphadenopathy, no JVD Effort: mildly labored Ascultation: Left: diminished breath sounds (base), Bilateral: clear, rhonchi Percussion: Bilateral: not dull Cardiovascular: regular rate and rhythm Gastrointestinal: normoactive bowel sounds, soft, non-tender, non-distended (protuberant) Integumentary: rash Extremities: cool, edema (right lower extremity), other (left BKA with clean dressing) Neurologic: normal mental status, non-focal exam, pupils equal and round, motor strength normal and Psychiatric: mood appropriate, affect normal CBC and BMP: 04/11/20 06:26 04/11/20 06:26 ABG, PT/INR, D-dimer: ABG ABG pH 7.395 pH Units (7.350-7.450) 04/05/20 15:58 ABG pCO2 43.5 mm Hg 04/05/20 15:58 ABG pO2 67.1 mm Hg (80.0-90.0) L 04/05/20 15:58 ABG O2 Saturation 93.4 % (95.0-99.0) L 04/05/20 15:58 PT/INR, D-dimer PT 27.0 Sec. (12.2-14.9) H 04/06/20 13:56 INR 2.44 (0.87-1.13) H 04/06/20 13:56 Abnormal lab findings: Abnormal Labs 03/18/20 03/18/20 03/18/20 18:28 18:28 20:56 WBC 12.3 H RBC Hgb Hct MCHC RDW Lymph % (Auto) 11.0 L Butts % (Auto) 9.8 H Butts # 1.2 H Seg Neutrophils % 78.4 H Seg Neuts % (Manual) Lymphocytes % (Manual) Nucleated RBC % Seg Neutrophils # 9.6 H Seg Neutrophils # Man Lymphocytes # (Manual) Monocytes # (Manual) Eosinophils # (Manual) PT INR Heparin Anti-Xa Level ABG pO2 ABG HCO3 ABG O2 Saturation ABG Base Excess ABG Hemoglobin Oxyhemoglobin Sodium 132 L Potassium Chloride 91.9 L Carbon Dioxide 20 L BUN Creatinine 1.4 H Glucose 406 H POC Glucose Hemoglobin A1c Calcium Ferritin AST ALT Alkaline Phosphatase Total Creatine Kinase 2727 H 2492 H CK-MB (CK-2) 135.9 H 107.2 H CK-MB (CK-2) Rel Index 4.3 H Troponin T 5.110 H* 3.960 H* D Total Protein Albumin Triglycerides 188 H LDL Cholesterol Direct 141 H 03/18/20 03/19/20 03/19/20 22:21 01:57 08:08 WBC RBC Hgb Hct MCHC RDW Lymph % (Auto) Butts % (Auto) Butts # Seg Neutrophils % Seg Neuts % (Manual) Lymphocytes % (Manual) Nucleated RBC % Seg Neutrophils # Seg Neutrophils # Man Lymphocytes # (Manual) Monocytes # (Manual) Eosinophils # (Manual) PT INR Heparin Anti-Xa Level ABG pO2 ABG HCO3 ABG O2 Saturation ABG Base Excess ABG Hemoglobin Oxyhemoglobin Sodium Potassium Chloride Carbon Dioxide BUN Creatinine Glucose POC Glucose 317 H Hemoglobin A1c 11.0 H Calcium Ferritin AST ALT Alkaline Phosphatase Total Creatine Kinase 7255 H CK-MB (CK-2) 79.3 H CK-MB (CK-2) Rel Index Troponin T 5.540 H* D Total Protein Albumin Triglycerides LDL Cholesterol Direct 03/19/20 03/19/20 03/19/20 08:08 08:08 08:08 WBC 13.3 H RBC Hgb Hct MCHC RDW Lymph % (Auto) 10.7 L Butts % (Auto) 8.5 H Butts # 1.1 H Seg Neutrophils % 80.0 H Seg Neuts % (Manual) Lymphocytes % (Manual) Nucleated RBC % Seg Neutrophils # 10.6 H Seg Neutrophils # Man Lymphocytes # (Manual) Monocytes # (Manual) Eosinophils # (Manual) PT INR Heparin Anti-Xa Level 0.10 L ABG pO2 ABG HCO3 ABG O2 Saturation ABG Base Excess ABG Hemoglobin Oxyhemoglobin Sodium 133 L Potassium 5.1 H Chloride Carbon Dioxide 17 L BUN 23 H Creatinine Glucose 313 H POC Glucose Hemoglobin A1c Calcium Ferritin AST ALT Alkaline Phosphatase Total Creatine Kinase CK-MB (CK-2) CK-MB (CK-2) Rel Index Troponin T Total Protein Albumin Triglycerides LDL Cholesterol Direct 03/19/20 03/19/20 03/19/20 15:40 18:23 21:32 WBC RBC Hgb Hct MCHC RDW Lymph % (Auto) Butts % (Auto) Butts # Seg Neutrophils % Seg Neuts % (Manual) Lymphocytes % (Manual) Nucleated RBC % Seg Neutrophils # Seg Neutrophils # Man Lymphocytes # (Manual) Monocytes # (Manual) Eosinophils # (Manual) PT INR Heparin Anti-Xa Level < 0.10 L ABG pO2 ABG HCO3 18.3 L ABG O2 Saturation ABG Base Excess -5.4 L ABG Hemoglobin 12.2 L Oxyhemoglobin 94.6 L Sodium Potassium Chloride Carbon Dioxide BUN Creatinine Glucose POC Glucose 348 H Hemoglobin A1c Calcium Ferritin AST ALT Alkaline Phosphatase Total Creatine Kinase CK-MB (CK-2) CK-MB (CK-2) Rel Index Troponin T Total Protein Albumin Triglycerides LDL Cholesterol Direct 03/20/20 03/20/20 03/20/20 04:35 05:12 05:12 WBC 11.1 H RBC 3.63 L Hgb 11.0 L Hct 32.7 L D MCHC RDW Lymph % (Auto) Butts % (Auto) 8.1 H Butts # 0.9 H Seg Neutrophils % 75.8 H Seg Neuts % (Manual) Lymphocytes % (Manual) Nucleated RBC % Seg Neutrophils # 8.4 H Seg Neutrophils # Man Lymphocytes # (Manual) Monocytes # (Manual) Eosinophils # (Manual) PT INR Heparin Anti-Xa Level 0.28 L ABG pO2 68.3 L ABG HCO3 ABG O2 Saturation 94.3 L ABG Base Excess ABG Hemoglobin 7.1 L Oxyhemoglobin 92.3 L Sodium Potassium Chloride Carbon Dioxide BUN Creatinine Glucose POC Glucose Hemoglobin A1c Calcium Ferritin AST ALT Alkaline Phosphatase Total Creatine Kinase CK-MB (CK-2) CK-MB (CK-2) Rel Index Troponin T Total Protein Albumin Triglycerides LDL Cholesterol Direct 03/20/20 03/20/20 03/20/20 05:12 07:49 12:15 WBC RBC Hgb Hct MCHC RDW Lymph % (Auto) Butts % (Auto) Butts # Seg Neutrophils % Seg Neuts % (Manual) Lymphocytes % (Manual) Nucleated RBC % Seg Neutrophils # Seg Neutrophils # Man Lymphocytes # (Manual) Monocytes # (Manual) Eosinophils # (Manual) PT INR Heparin Anti-Xa Level ABG pO2 ABG HCO3 ABG O2 Saturation ABG Base Excess ABG Hemoglobin Oxyhemoglobin Sodium 134 L Potassium Chloride Carbon Dioxide 21 L BUN 23 H Creatinine Glucose 275 H POC Glucose 294 H 357 H Hemoglobin A1c Calcium Ferritin AST ALT Alkaline Phosphatase Total Creatine Kinase CK-MB (CK-2) CK-MB (CK-2) Rel Index Troponin T 3.200 H* D Total Protein Albumin Triglycerides LDL Cholesterol Direct 03/20/20 03/20/20 03/21/20 17:16 22:08 04:44 WBC RBC Hgb Hct MCHC RDW Lymph % (Auto) Butts % (Auto) Butts # Seg Neutrophils % Seg Neuts % (Manual) Lymphocytes % (Manual) Nucleated RBC % Seg Neutrophils # Seg Neutrophils # Man Lymphocytes # (Manual) Monocytes # (Manual) Eosinophils # (Manual) PT INR Heparin Anti-Xa Level ABG pO2 ABG HCO3 ABG O2 Saturation ABG Base Excess ABG Hemoglobin Oxyhemoglobin Sodium 136 L Potassium Chloride Carbon Dioxide 18 L BUN 26 H Creatinine Glucose 266 H POC Glucose 327 H 292 H Hemoglobin A1c Calcium 8.1 L Ferritin AST ALT Alkaline Phosphatase Total Creatine Kinase CK-MB (CK-2) CK-MB (CK-2) Rel Index Troponin T Total Protein Albumin Triglycerides LDL Cholesterol Direct 03/21/20 03/21/20 03/21/20 07:50 12:25 15:53 WBC RBC Hgb Hct MCHC RDW Lymph % (Auto) Butts % (Auto) Butts # Seg Neutrophils % Seg Neuts % (Manual) Lymphocytes % (Manual) Nucleated RBC % Seg Neutrophils # Seg Neutrophils # Man Lymphocytes # (Manual) Monocytes # (Manual) Eosinophils # (Manual) PT INR Heparin Anti-Xa Level ABG pO2 ABG HCO3 ABG O2 Saturation ABG Base Excess ABG Hemoglobin Oxyhemoglobin Sodium Potassium Chloride Carbon Dioxide BUN Creatinine Glucose POC Glucose 271 H 314 H 436 H Hemoglobin A1c Calcium Ferritin AST ALT Alkaline Phosphatase Total Creatine Kinase CK-MB (CK-2) CK-MB (CK-2) Rel Index Troponin T Total Protein Albumin Triglycerides LDL Cholesterol Direct 03/21/20 03/21/20 03/22/20 17:44 21:55 04:33 WBC RBC Hgb 10.0 L Hct 29.4 L MCHC RDW Lymph % (Auto) Butts % (Auto) Butts # Seg Neutrophils % Seg Neuts % (Manual) Lymphocytes % (Manual) Nucleated RBC % Seg Neutrophils # Seg Neutrophils # Man Lymphocytes # (Manual) Monocytes # (Manual) Eosinophils # (Manual) PT INR Heparin Anti-Xa Level ABG pO2 ABG HCO3 ABG O2 Saturation ABG Base Excess ABG Hemoglobin Oxyhemoglobin Sodium Potassium Chloride Carbon Dioxide BUN Creatinine Glucose POC Glucose 362 H 329 H Hemoglobin A1c Calcium Ferritin AST ALT Alkaline Phosphatase Total Creatine Kinase CK-MB (CK-2) CK-MB (CK-2) Rel Index Troponin T Total Protein Albumin Triglycerides LDL Cholesterol Direct 03/22/20 03/22/20 03/22/20 08:57 14:12 19:57 WBC RBC Hgb Hct MCHC RDW Lymph % (Auto) Butts % (Auto) Butts # Seg Neutrophils % Seg Neuts % (Manual) Lymphocytes % (Manual) Nucleated RBC % Seg Neutrophils # Seg Neutrophils # Man Lymphocytes # (Manual) Monocytes # (Manual) Eosinophils # (Manual) PT INR Heparin Anti-Xa Level ABG pO2 ABG HCO3 ABG O2 Saturation ABG Base Excess ABG Hemoglobin Oxyhemoglobin Sodium Potassium Chloride Carbon Dioxide BUN Creatinine Glucose POC Glucose 284 H 319 H 356 H Hemoglobin A1c Calcium Ferritin AST ALT Alkaline Phosphatase Total Creatine Kinase CK-MB (CK-2) CK-MB (CK-2) Rel Index Troponin T Total Protein Albumin Triglycerides LDL Cholesterol Direct 03/22/20 03/23/20 03/23/20 21:44 08:18 12:46 WBC RBC Hgb Hct MCHC RDW Lymph % (Auto) Butts % (Auto) Butts # Seg Neutrophils % Seg Neuts % (Manual) Lymphocytes % (Manual) Nucleated RBC % Seg Neutrophils # Seg Neutrophils # Man Lymphocytes # (Manual) Monocytes # (Manual) Eosinophils # (Manual) PT INR Heparin Anti-Xa Level ABG pO2 ABG HCO3 ABG O2 Saturation ABG Base Excess ABG Hemoglobin Oxyhemoglobin Sodium Potassium Chloride Carbon Dioxide BUN Creatinine Glucose POC Glucose 336 H 215 H 262 H Hemoglobin A1c Calcium Ferritin AST ALT Alkaline Phosphatase Total Creatine Kinase CK-MB (CK-2) CK-MB (CK-2) Rel Index Troponin T Total Protein Albumin Triglycerides LDL Cholesterol Direct 03/23/20 03/23/20 03/24/20 15:56 22:05 02:35 WBC RBC Hgb 9.0 L Hct 25.8 L MCHC RDW Lymph % (Auto) Butts % (Auto) Butts # Seg Neutrophils % Seg Neuts % (Manual) Lymphocytes % (Manual) Nucleated RBC % Seg Neutrophils # Seg Neutrophils # Man Lymphocytes # (Manual) Monocytes # (Manual) Eosinophils # (Manual) PT INR Heparin Anti-Xa Level ABG pO2 ABG HCO3 ABG O2 Saturation ABG Base Excess ABG Hemoglobin Oxyhemoglobin Sodium Potassium Chloride Carbon Dioxide BUN Creatinine Glucose POC Glucose 246 H 322 H Hemoglobin A1c Calcium Ferritin AST ALT Alkaline Phosphatase Total Creatine Kinase CK-MB (CK-2) CK-MB (CK-2) Rel Index Troponin T Total Protein Albumin Triglycerides LDL Cholesterol Direct 03/24/20 03/24/20 03/24/20 07:38 11:45 16:02 WBC RBC Hgb Hct MCHC RDW Lymph % (Auto) Butts % (Auto) Butts # Seg Neutrophils % Seg Neuts % (Manual) Lymphocytes % (Manual) Nucleated RBC % Seg Neutrophils # Seg Neutrophils # Man Lymphocytes # (Manual) Monocytes # (Manual) Eosinophils # (Manual) PT INR Heparin Anti-Xa Level ABG pO2 ABG HCO3 ABG O2 Saturation ABG Base Excess ABG Hemoglobin Oxyhemoglobin Sodium Potassium Chloride Carbon Dioxide BUN Creatinine Glucose POC Glucose 289 H 257 H 150 H Hemoglobin A1c Calcium Ferritin AST ALT Alkaline Phosphatase Total Creatine Kinase CK-MB (CK-2) CK-MB (CK-2) Rel Index Troponin T Total Protein Albumin Triglycerides LDL Cholesterol Direct 03/24/20 03/25/20 03/25/20 21:24 04:06 07:39 WBC RBC Hgb Hct MCHC RDW Lymph % (Auto) Butts % (Auto) Butts # Seg Neutrophils % Seg Neuts % (Manual) Lymphocytes % (Manual) Nucleated RBC % Seg Neutrophils # Seg Neutrophils # Man Lymphocytes # (Manual) Monocytes # (Manual) Eosinophils # (Manual) PT INR Heparin Anti-Xa Level 0.10 L ABG pO2 ABG HCO3 ABG O2 Saturation ABG Base Excess ABG Hemoglobin Oxyhemoglobin Sodium Potassium Chloride Carbon Dioxide BUN Creatinine Glucose POC Glucose 228 H 332 H Hemoglobin A1c Calcium Ferritin AST ALT Alkaline Phosphatase Total Creatine Kinase CK-MB (CK-2) CK-MB (CK-2) Rel Index Troponin T Total Protein Albumin Triglycerides LDL Cholesterol Direct 03/25/20 03/25/20 03/25/20 08:13 09:30 11:59 WBC 13.1 H RBC 2.82 L Hgb 8.5 L Hct 26.1 L MCHC RDW Lymph % (Auto) Butts % (Auto) Butts # Seg Neutrophils % Seg Neuts % (Manual) Lymphocytes % (Manual) Nucleated RBC % Seg Neutrophils # Seg Neutrophils # Man Lymphocytes # (Manual) Monocytes # (Manual) Eosinophils # (Manual) PT INR Heparin Anti-Xa Level ABG pO2 ABG HCO3 ABG O2 Saturation ABG Base Excess ABG Hemoglobin Oxyhemoglobin Sodium 131 L Potassium 5.3 H Chloride Carbon Dioxide 20 L BUN 39 H Creatinine 1.4 H Glucose 313 H POC Glucose 273 H Hemoglobin A1c Calcium 8.1 L Ferritin AST ALT Alkaline Phosphatase Total Creatine Kinase CK-MB (CK-2) CK-MB (CK-2) Rel Index Troponin T Total Protein Albumin Triglycerides LDL Cholesterol Direct 03/25/20 03/25/20 03/25/20 13:54 15:58 18:21 WBC RBC Hgb Hct MCHC RDW Lymph % (Auto) Butts % (Auto) Butts # Seg Neutrophils % Seg Neuts % (Manual) Lymphocytes % (Manual) Nucleated RBC % Seg Neutrophils # Seg Neutrophils # Man Lymphocytes # (Manual) Monocytes # (Manual) Eosinophils # (Manual) PT INR Heparin Anti-Xa Level ABG pO2 ABG HCO3 ABG O2 Saturation ABG Base Excess ABG Hemoglobin Oxyhemoglobin Sodium Potassium Chloride Carbon Dioxide BUN Creatinine Glucose POC Glucose 246 H 235 H 185 H Hemoglobin A1c Calcium Ferritin AST ALT Alkaline Phosphatase Total Creatine Kinase CK-MB (CK-2) CK-MB (CK-2) Rel Index Troponin T Total Protein Albumin Triglycerides LDL Cholesterol Direct 03/25/20 03/26/20 03/26/20 20:45 05:15 06:59 WBC 17.4 H 15.6 H RBC 3.05 L 3.05 L Hgb 9.1 L 9.2 L Hct 28.2 L 27.9 L MCHC RDW Lymph % (Auto) 8.9 L 8.9 L Butts % (Auto) Butts # 1.0 H Seg Neutrophils % 84.4 H 84.8 H Seg Neuts % (Manual) Lymphocytes % (Manual) Nucleated RBC % Seg Neutrophils # 14.7 H 13.2 H Seg Neutrophils # Man Lymphocytes # (Manual) Monocytes # (Manual) Eosinophils # (Manual) PT INR Heparin Anti-Xa Level ABG pO2 ABG HCO3 ABG O2 Saturation ABG Base Excess ABG Hemoglobin Oxyhemoglobin Sodium Potassium Chloride Carbon Dioxide BUN Creatinine Glucose POC Glucose 178 H Hemoglobin A1c Calcium Ferritin AST ALT Alkaline Phosphatase Total Creatine Kinase CK-MB (CK-2) CK-MB (CK-2) Rel Index Troponin T Total Protein Albumin Triglycerides LDL Cholesterol Direct 03/26/20 03/26/20 03/26/20 06:59 07:43 11:56 WBC RBC Hgb Hct MCHC RDW Lymph % (Auto) Butts % (Auto) Butts # Seg Neutrophils % Seg Neuts % (Manual) Lymphocytes % (Manual) Nucleated RBC % Seg Neutrophils # Seg Neutrophils # Man Lymphocytes # (Manual) Monocytes # (Manual) Eosinophils # (Manual) PT INR Heparin Anti-Xa Level ABG pO2 ABG HCO3 ABG O2 Saturation ABG Base Excess ABG Hemoglobin Oxyhemoglobin Sodium 131 L Potassium 5.8 H Chloride Carbon Dioxide 16 L BUN 42 H Creatinine 1.4 H Glucose 163 H POC Glucose 170 H 198 H Hemoglobin A1c Calcium 8.0 L Ferritin AST ALT Alkaline Phosphatase Total Creatine Kinase CK-MB (CK-2) CK-MB (CK-2) Rel Index Troponin T Total Protein Albumin Triglycerides LDL Cholesterol Direct 03/26/20 03/26/20 03/26/20 13:58 16:16 21:00 WBC RBC Hgb Hct MCHC RDW Lymph % (Auto) Butts % (Auto) Butts # Seg Neutrophils % Seg Neuts % (Manual) Lymphocytes % (Manual) Nucleated RBC % Seg Neutrophils # Seg Neutrophils # Man Lymphocytes # (Manual) Monocytes # (Manual) Eosinophils # (Manual) PT INR Heparin Anti-Xa Level ABG pO2 ABG HCO3 ABG O2 Saturation ABG Base Excess ABG Hemoglobin Oxyhemoglobin Sodium 128 L Potassium 6.0 H Chloride Carbon Dioxide 15 L BUN 45 H Creatinine 1.4 H Glucose 190 H POC Glucose 184 H 192 H Hemoglobin A1c Calcium 8.2 L Ferritin AST ALT Alkaline Phosphatase Total Creatine Kinase CK-MB (CK-2) CK-MB (CK-2) Rel Index Troponin T Total Protein Albumin Triglycerides LDL Cholesterol Direct 03/27/20 03/27/20 03/27/20 08:32 11:51 14:39 WBC 22.9 H RBC 2.68 L Hgb 7.9 L Hct 24.7 L MCHC RDW Lymph % (Auto) Butts % (Auto) Butts # Seg Neutrophils % Seg Neuts % (Manual) Lymphocytes % (Manual) Nucleated RBC % Seg Neutrophils # Seg Neutrophils # Man Lymphocytes # (Manual) Monocytes # (Manual) Eosinophils # (Manual) PT INR Heparin Anti-Xa Level ABG pO2 ABG HCO3 ABG O2 Saturation ABG Base Excess ABG Hemoglobin Oxyhemoglobin Sodium Potassium Chloride Carbon Dioxide BUN Creatinine Glucose POC Glucose 233 H 252 H Hemoglobin A1c Calcium Ferritin AST ALT Alkaline Phosphatase Total Creatine Kinase CK-MB (CK-2) CK-MB (CK-2) Rel Index Troponin T Total Protein Albumin Triglycerides LDL Cholesterol Direct 03/27/20 03/27/20 03/27/20 14:39 15:19 21:35 WBC RBC Hgb Hct MCHC RDW Lymph % (Auto) Butts % (Auto) Butts # Seg Neutrophils % Seg Neuts % (Manual) Lymphocytes % (Manual) Nucleated RBC % Seg Neutrophils # Seg Neutrophils # Man Lymphocytes # (Manual) Monocytes # (Manual) Eosinophils # (Manual) PT INR Heparin Anti-Xa Level ABG pO2 ABG HCO3 ABG O2 Saturation ABG Base Excess ABG Hemoglobin Oxyhemoglobin Sodium 133 L Potassium 5.5 H Chloride Carbon Dioxide 16 L BUN 46 H Creatinine 1.4 H Glucose 225 H POC Glucose 239 H 202 H Hemoglobin A1c Calcium 8.2 L Ferritin AST ALT Alkaline Phosphatase Total Creatine Kinase CK-MB (CK-2) CK-MB (CK-2) Rel Index Troponin T Total Protein Albumin Triglycerides LDL Cholesterol Direct 03/28/20 03/28/20 03/28/20 07:39 07:39 08:36 WBC 22.4 H RBC 2.71 L Hgb 7.9 L Hct 24.5 L MCHC RDW Lymph % (Auto) Butts % (Auto) Butts # Seg Neutrophils % Seg Neuts % (Manual) 88.0 H Lymphocytes % (Manual) 5.0 L Nucleated RBC % Seg Neutrophils # Seg Neutrophils # Man 19.7 H Lymphocytes # (Manual) 1.1 L Monocytes # (Manual) 1.6 H Eosinophils # (Manual) PT INR Heparin Anti-Xa Level ABG pO2 ABG HCO3 ABG O2 Saturation ABG Base Excess ABG Hemoglobin Oxyhemoglobin Sodium 134 L Potassium Chloride Carbon Dioxide 19 L BUN 47 H Creatinine Glucose 240 H POC Glucose 253 H Hemoglobin A1c Calcium 7.8 L Ferritin AST ALT Alkaline Phosphatase Total Creatine Kinase CK-MB (CK-2) CK-MB (CK-2) Rel Index Troponin T Total Protein Albumin Triglycerides LDL Cholesterol Direct 03/28/20 03/28/20 03/28/20 11:54 17:08 21:17 WBC RBC Hgb Hct MCHC RDW Lymph % (Auto) Butts % (Auto) Butts # Seg Neutrophils % Seg Neuts % (Manual) Lymphocytes % (Manual) Nucleated RBC % Seg Neutrophils # Seg Neutrophils # Man Lymphocytes # (Manual) Monocytes # (Manual) Eosinophils # (Manual) PT INR Heparin Anti-Xa Level ABG pO2 ABG HCO3 ABG O2 Saturation ABG Base Excess ABG Hemoglobin Oxyhemoglobin Sodium Potassium Chloride Carbon Dioxide BUN Creatinine Glucose POC Glucose 306 H 178 H 186 H Hemoglobin A1c Calcium Ferritin AST ALT Alkaline Phosphatase Total Creatine Kinase CK-MB (CK-2) CK-MB (CK-2) Rel Index Troponin T Total Protein Albumin Triglycerides LDL Cholesterol Direct 03/29/20 03/29/20 03/29/20 08:32 12:04 14:19 WBC 21.5 H RBC 2.82 L Hgb 8.4 L Hct 26.1 L MCHC RDW Lymph % (Auto) Butts % (Auto) Butts # Seg Neutrophils % Seg Neuts % (Manual) 85.0 H Lymphocytes % (Manual) 11.0 L Nucleated RBC % 3.0 H Seg Neutrophils # Seg Neutrophils # Man 18.3 H Lymphocytes # (Manual) Monocytes # (Manual) Eosinophils # (Manual) 0.6 H PT INR Heparin Anti-Xa Level ABG pO2 ABG HCO3 ABG O2 Saturation ABG Base Excess ABG Hemoglobin Oxyhemoglobin Sodium Potassium Chloride Carbon Dioxide BUN Creatinine Glucose POC Glucose 110 H 263 H Hemoglobin A1c Calcium Ferritin AST ALT Alkaline Phosphatase Total Creatine Kinase CK-MB (CK-2) CK-MB (CK-2) Rel Index Troponin T Total Protein Albumin Triglycerides LDL Cholesterol Direct 03/29/20 03/29/20 03/30/20 16:17 22:57 11:00 WBC RBC Hgb Hct MCHC RDW Lymph % (Auto) Butts % (Auto) Butts # Seg Neutrophils % Seg Neuts % (Manual) Lymphocytes % (Manual) Nucleated RBC % Seg Neutrophils # Seg Neutrophils # Man Lymphocytes # (Manual) Monocytes # (Manual) Eosinophils # (Manual) PT INR Heparin Anti-Xa Level ABG pO2 ABG HCO3 ABG O2 Saturation ABG Base Excess ABG Hemoglobin Oxyhemoglobin Sodium Potassium Chloride Carbon Dioxide BUN Creatinine Glucose POC Glucose 109 H 194 H 129 H Hemoglobin A1c Calcium Ferritin AST ALT Alkaline Phosphatase Total Creatine Kinase CK-MB (CK-2) CK-MB (CK-2) Rel Index Troponin T Total Protein Albumin Triglycerides LDL Cholesterol Direct 03/30/20 03/30/20 03/31/20 15:16 21:54 04:27 WBC 15.8 H RBC 2.62 L Hgb 7.7 L Hct 24.1 L MCHC RDW Lymph % (Auto) 9.4 L Butts % (Auto) Butts # Seg Neutrophils % 84.4 H Seg Neuts % (Manual) Lymphocytes % (Manual) Nucleated RBC % Seg Neutrophils # 13.3 H Seg Neutrophils # Man Lymphocytes # (Manual) Monocytes # (Manual) Eosinophils # (Manual) PT INR Heparin Anti-Xa Level ABG pO2 ABG HCO3 ABG O2 Saturation ABG Base Excess ABG Hemoglobin Oxyhemoglobin Sodium Potassium Chloride Carbon Dioxide BUN Creatinine Glucose POC Glucose 115 H 166 H Hemoglobin A1c Calcium Ferritin AST ALT Alkaline Phosphatase Total Creatine Kinase CK-MB (CK-2) CK-MB (CK-2) Rel Index Troponin T Total Protein Albumin Triglycerides LDL Cholesterol Direct 03/31/20 03/31/20 03/31/20 04:27 07:37 11:46 WBC RBC Hgb Hct MCHC RDW Lymph % (Auto) Butts % (Auto) Butts # Seg Neutrophils % Seg Neuts % (Manual) Lymphocytes % (Manual) Nucleated RBC % Seg Neutrophils # Seg Neutrophils # Man Lymphocytes # (Manual) Monocytes # (Manual) Eosinophils # (Manual) PT INR Heparin Anti-Xa Level ABG pO2 ABG HCO3 ABG O2 Saturation ABG Base Excess ABG Hemoglobin Oxyhemoglobin Sodium 133 L Potassium Chloride 96.6 L Carbon Dioxide 18 L BUN 75 H Creatinine 2.5 H D Glucose 129 H POC Glucose 156 H 224 H Hemoglobin A1c Calcium 8.0 L Ferritin AST ALT Alkaline Phosphatase Total Creatine Kinase CK-MB (CK-2) CK-MB (CK-2) Rel Index Troponin T Total Protein Albumin Triglycerides LDL Cholesterol Direct 04/01/20 04/01/20 04/01/20 08:34 10:52 10:52 WBC 12.9 H RBC 2.75 L Hgb 8.2 L Hct 24.8 L MCHC RDW Lymph % (Auto) 10.6 L Butts % (Auto) Butts # Seg Neutrophils % 83.7 H Seg Neuts % (Manual) Lymphocytes % (Manual) Nucleated RBC % Seg Neutrophils # 10.8 H Seg Neutrophils # Man Lymphocytes # (Manual) Monocytes # (Manual) Eosinophils # (Manual) PT INR Heparin Anti-Xa Level ABG pO2 ABG HCO3 ABG O2 Saturation ABG Base Excess ABG Hemoglobin Oxyhemoglobin Sodium 131 L Potassium Chloride 96.1 L Carbon Dioxide 17 L BUN 77 H Creatinine 2.3 H Glucose 205 H POC Glucose 110 H Hemoglobin A1c Calcium 7.9 L Ferritin AST ALT Alkaline Phosphatase Total Creatine Kinase CK-MB (CK-2) CK-MB (CK-2) Rel Index Troponin T Total Protein Albumin Triglycerides LDL Cholesterol Direct 04/01/20 04/01/20 04/01/20 12:15 17:22 20:47 WBC RBC Hgb Hct MCHC RDW Lymph % (Auto) Butts % (Auto) Butts # Seg Neutrophils % Seg Neuts % (Manual) Lymphocytes % (Manual) Nucleated RBC % Seg Neutrophils # Seg Neutrophils # Man Lymphocytes # (Manual) Monocytes # (Manual) Eosinophils # (Manual) PT INR Heparin Anti-Xa Level ABG pO2 ABG HCO3 ABG O2 Saturation ABG Base Excess ABG Hemoglobin Oxyhemoglobin Sodium Potassium Chloride Carbon Dioxide BUN Creatinine Glucose POC Glucose 201 H 219 H 156 H Hemoglobin A1c Calcium Ferritin AST ALT Alkaline Phosphatase Total Creatine Kinase CK-MB (CK-2) CK-MB (CK-2) Rel Index Troponin T Total Protein Albumin Triglycerides LDL Cholesterol Direct 04/02/20 04/02/20 04/02/20 05:44 05:44 11:32 WBC 15.8 H RBC 2.81 L Hgb 8.2 L Hct 25.7 L MCHC RDW Lymph % (Auto) Butts % (Auto) Butts # 0.9 H Seg Neutrophils % 77.7 H Seg Neuts % (Manual) Lymphocytes % (Manual) Nucleated RBC % Seg Neutrophils # 12.3 H Seg Neutrophils # Man Lymphocytes # (Manual) Monocytes # (Manual) Eosinophils # (Manual) PT INR Heparin Anti-Xa Level ABG pO2 ABG HCO3 ABG O2 Saturation ABG Base Excess ABG Hemoglobin Oxyhemoglobin Sodium 134 L Potassium Chloride Carbon Dioxide 19 L BUN 76 H Creatinine 2.0 H Glucose POC Glucose 116 H Hemoglobin A1c Calcium 8.0 L Ferritin AST 291 H ALT 169 H Alkaline Phosphatase 256 H Total Creatine Kinase CK-MB (CK-2) CK-MB (CK-2) Rel Index Troponin T Total Protein 6.1 L Albumin 2.2 L Triglycerides LDL Cholesterol Direct 04/02/20 04/02/20 04/03/20 16:56 22:03 08:13 WBC RBC Hgb Hct MCHC RDW Lymph % (Auto) Butts % (Auto) Butts # Seg Neutrophils % Seg Neuts % (Manual) Lymphocytes % (Manual) Nucleated RBC % Seg Neutrophils # Seg Neutrophils # Man Lymphocytes # (Manual) Monocytes # (Manual) Eosinophils # (Manual) PT INR Heparin Anti-Xa Level ABG pO2 ABG HCO3 ABG O2 Saturation ABG Base Excess ABG Hemoglobin Oxyhemoglobin Sodium Potassium Chloride Carbon Dioxide BUN Creatinine Glucose POC Glucose 141 H 152 H 126 H Hemoglobin A1c Calcium Ferritin AST ALT Alkaline Phosphatase Total Creatine Kinase CK-MB (CK-2) CK-MB (CK-2) Rel Index Troponin T Total Protein Albumin Triglycerides LDL Cholesterol Direct 04/03/20 04/03/20 04/03/20 12:11 16:26 21:33 WBC RBC Hgb Hct MCHC RDW Lymph % (Auto) Butts % (Auto) Butts # Seg Neutrophils % Seg Neuts % (Manual) Lymphocytes % (Manual) Nucleated RBC % Seg Neutrophils # Seg Neutrophils # Man Lymphocytes # (Manual) Monocytes # (Manual) Eosinophils # (Manual) PT INR Heparin Anti-Xa Level ABG pO2 ABG HCO3 ABG O2 Saturation ABG Base Excess ABG Hemoglobin Oxyhemoglobin Sodium Potassium Chloride Carbon Dioxide BUN Creatinine Glucose POC Glucose 139 H 164 H 147 H Hemoglobin A1c Calcium Ferritin AST ALT Alkaline Phosphatase Total Creatine Kinase CK-MB (CK-2) CK-MB (CK-2) Rel Index Troponin T Total Protein Albumin Triglycerides LDL Cholesterol Direct 04/04/20 04/04/20 04/04/20 04:29 04:29 11:29 WBC 12.3 H RBC 2.88 L Hgb 8.4 L Hct 26.1 L MCHC RDW Lymph % (Auto) Butts % (Auto) Butts # Seg Neutrophils % 75.4 H Seg Neuts % (Manual) Lymphocytes % (Manual) Nucleated RBC % Seg Neutrophils # 9.3 H Seg Neutrophils # Man Lymphocytes # (Manual) Monocytes # (Manual) Eosinophils # (Manual) PT INR Heparin Anti-Xa Level ABG pO2 ABG HCO3 ABG O2 Saturation ABG Base Excess ABG Hemoglobin Oxyhemoglobin Sodium 136 L Potassium Chloride Carbon Dioxide 19 L BUN 71 H Creatinine 1.7 H Glucose POC Glucose 108 H Hemoglobin A1c Calcium 8.0 L Ferritin AST 673 H ALT 252 H Alkaline Phosphatase 311 H Total Creatine Kinase CK-MB (CK-2) CK-MB (CK-2) Rel Index Troponin T Total Protein Albumin 2.2 L Triglycerides LDL Cholesterol Direct 04/04/20 04/04/20 04/05/20 16:34 20:58 03:54 WBC 13.7 H RBC 3.03 L Hgb 8.7 L Hct 27.9 L MCHC 31 L RDW 15.5 H Lymph % (Auto) Butts % (Auto) Butts # Seg Neutrophils % 78.9 H Seg Neuts % (Manual) Lymphocytes % (Manual) Nucleated RBC % Seg Neutrophils # 10.8 H Seg Neutrophils # Man Lymphocytes # (Manual) Monocytes # (Manual) Eosinophils # (Manual) PT INR Heparin Anti-Xa Level ABG pO2 ABG HCO3 ABG O2 Saturation ABG Base Excess ABG Hemoglobin Oxyhemoglobin Sodium Potassium Chloride Carbon Dioxide BUN Creatinine Glucose POC Glucose 151 H 131 H Hemoglobin A1c Calcium Ferritin AST ALT Alkaline Phosphatase Total Creatine Kinase CK-MB (CK-2) CK-MB (CK-2) Rel Index Troponin T Total Protein Albumin Triglycerides LDL Cholesterol Direct 04/05/20 04/05/20 04/05/20 03:54 15:58 15:58 WBC RBC Hgb Hct MCHC RDW Lymph % (Auto) Butts % (Auto) Butts # Seg Neutrophils % Seg Neuts % (Manual) Lymphocytes % (Manual) Nucleated RBC % Seg Neutrophils # Seg Neutrophils # Man Lymphocytes # (Manual) Monocytes # (Manual) Eosinophils # (Manual) PT INR Heparin Anti-Xa Level ABG pO2 67.1 L ABG HCO3 26.1 H ABG O2 Saturation 93.4 L ABG Base Excess ABG Hemoglobin 9.0 L Oxyhemoglobin 91.6 L Sodium 136 L Potassium 5.5 H Chloride Carbon Dioxide 21 L BUN 79 H Creatinine 1.9 H Glucose 63 L POC Glucose 129 H Hemoglobin A1c Calcium 8.2 L Ferritin AST 696 H ALT 262 H Alkaline Phosphatase 325 H Total Creatine Kinase CK-MB (CK-2) CK-MB (CK-2) Rel Index Troponin T Total Protein Albumin 2.3 L Triglycerides LDL Cholesterol Direct 04/05/20 04/06/20 04/06/20 22:33 07:14 07:14 WBC RBC Hgb Hct MCHC RDW Lymph % (Auto) Butts % (Auto) Butts # Seg Neutrophils % Seg Neuts % (Manual) Lymphocytes % (Manual) Nucleated RBC % Seg Neutrophils # Seg Neutrophils # Man Lymphocytes # (Manual) Monocytes # (Manual) Eosinophils # (Manual) PT INR Heparin Anti-Xa Level ABG pO2 ABG HCO3 ABG O2 Saturation ABG Base Excess ABG Hemoglobin Oxyhemoglobin Sodium Potassium 5.6 H Chloride Carbon Dioxide BUN 83 H Creatinine 1.9 H Glucose 202 H POC Glucose 253 H Hemoglobin A1c Calcium Ferritin 444.2 H AST 469 H ALT 237 H Alkaline Phosphatase 332 H Total Creatine Kinase CK-MB (CK-2) CK-MB (CK-2) Rel Index Troponin T Total Protein Albumin 2.2 L Triglycerides LDL Cholesterol Direct 04/06/20 04/06/20 04/06/20 08:23 12:00 13:56 WBC RBC Hgb Hct MCHC RDW Lymph % (Auto) Butts % (Auto) Butts # Seg Neutrophils % Seg Neuts % (Manual) Lymphocytes % (Manual) Nucleated RBC % Seg Neutrophils # Seg Neutrophils # Man Lymphocytes # (Manual) Monocytes # (Manual) Eosinophils # (Manual) PT 27.0 H INR 2.44 H Heparin Anti-Xa Level ABG pO2 ABG HCO3 ABG O2 Saturation ABG Base Excess ABG Hemoglobin Oxyhemoglobin Sodium Potassium Chloride Carbon Dioxide BUN Creatinine Glucose POC Glucose 226 H 176 H Hemoglobin A1c Calcium Ferritin AST ALT Alkaline Phosphatase Total Creatine Kinase CK-MB (CK-2) CK-MB (CK-2) Rel Index Troponin T Total Protein Albumin Triglycerides LDL Cholesterol Direct Chest x-ray: image reviewed (bivbasilar L>R airspace disease) Allied health notes reviewed: nursing
--- NOTE | 2020-04-06 17:43 | Progress Note ---
Assessment and Plan Brief history; 54-year-old male with known history of CVA without any residual deficits, hypertension ,diabetes mellitus, coronary artery disease with CABG x2, pulmonary embolism and DVT presented to the emergency room today with a complaint of left foot pain and discoloration for about a week.His leg is cool from the knee down and cold and mottled from the lower calf down. He has an insensate foot from the midfoot down with no ability to move the toes. This has been present since he woke up. Last time he had function in his foot was last night. Left lower extremity ischemia, vascular evaluated, status post fasciotomy and revascula rization. 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/2020, persistent leukocytosis, transaminitis, surgery GI following, DC planning in progress 03/19/2020 status post endovascular revascularization. 03/19/2020 s/p left lower extremity 4 compartment fasciotomy 03/25/2020; s/p left BKA on 03/26/20; evaluated by PT, recommend acute rehab 03/29/20; acute rehab facility from [facility] evaluated the patient Patient is not ready for acute rehab, they will reevaluate 03/30/20; complains of insomnia, add Ambien 03/31; patient is hypotensive, [employer] pump discontinued. Added Dilaudid IV as needed 04/01; patient has worsening renal function, and drop in H&H, closely monitor transfuse as needed 04/02; insurance did not approve acute rehab, SNF placement is being processed 04/03: Patient has elevated LFTs WBC remain high, abdominal ultrasound 04/04; abdominal ultrasound findings noted, fatty liver, thickened gallbladder possible cholecystitis HIDA scan requested, discussed with Dr. Rhodes for further evaluation and recommendation 04/05; patient unable to list flat HIDA scan, test canceled, follow GI and surgery evaluation --Transaminitis; unknown etiology, slowly trend Abdominal ultrasound, fatty liver, thickening of gallbladder No cholecystitis Clear to eat --Acute left lower extremity ischemia Current Visit: Yes Status: Acute 03/19/2020 status post endovascular revascularization 03/19/2020 s/p left lower extremity 4 compartment fasciotomy Management per vascular Left BKA on 03/25/2020 --Non-ST elevation SD : Current Visit: Yes Status: Acute Patient has history of CABG patient denies any chest pain. Management per cardiology Per cardiology non-STEMI 2 Elevated troponins at the time of admission --Acute systolic CHF; EF 30-35%% Current Visit: Yes Status: Acute Beta-blockers, BIJAN inhibitor, diuretics Improved -- Hyperglycemia due to diabetes mellitus Current Visit: Yes Status: Acute Accu-Chek sliding scale coverage ADA diet Long-acting insulin as needed, M7s---96.0 --Nicotine dependence Current Visit: Yes Status: Acute Smoking cessation nicotine patch as needed --Anemia; Current Visit: Yes Status: Acute Gradual l drop in H&H, closely monitor and transfuse as needed --Hypotension; Current Visit: Yes Status: Acute patient [employer] pump on hold due to hypotension And give low-dose Dilaudid every 6 hours as needed for pain. Closely monitor blood pressures, fluid bolus as needed --DVT prophylaxis Current Visit: Yes Status: Acute Patient currently on anticoagulation. -- Full code status Current Visit: Yes Status: Acute Patient is on heparin drip Discharge planning issues possible acute rehab placement/SNF placement Subjective Date of service: 04/06/20 Principal diagnosis: Acute limb ischemia; STARR; COPD; Ac hypoxemic resp failure; DM II; NSTEMI Interval history: 54-year-old male with known history of CVA without any residual deficits, hypertension ,diabetes mellitus, coronary artery disease with CABG x2, pulmonary embolism and DVT presented to the emergency room today with a complaint of left foot pain and discoloration for about a week.His leg is cool from the knee down and cold and mottled from the lower calf down. He has an insensate foot from the midfoot down with no ability to move the toes. This has been present since he woke up. Last time he had function in his foot was last night. Left lower extremity ischemia, vascular evaluated, status post fasciotomy and revascularization. left BKA on 03/25/2020 I have seen and examined the patient at the bedside Patient's chart and medications reviewed Patient is in mild shortness of breath Alert awake responding appropriately Vital signs reviewed Objective - Constitutional Vitals: Vital Signs - 12hr 04/06/20 04/06/20 04/06/20 07:33 07:50 08:11 Temperature 98.9 F Pulse Rate 74 Pulse Rate [ 79 Anterior Bilateral Throughout] Respiratory 20 Rate Respiratory 22 Rate [Anterior Bilateral Throughout] Blood Pressure 111/72 O2 Sat by Pulse 97 96 Oximetry 04/06/20 04/06/20 04/06/20 09:50 09:52 10:00 Temperature Pulse Rate 72 72 Pulse Rate [ Anterior Bilateral Throughout] Respiratory 24 Rate Respiratory Rate [Anterior Bilateral Throughout] Blood Pressure 95/59 95/59 O2 Sat by Pulse 100 Oximetry 04/06/20 04/06/20 11:47 16:05 Temperature 98.2 F 98.2 F Pulse Rate 74 84 Pulse Rate [ Anterior Bilateral Throughout] Respiratory 18 20 Rate Respiratory Rate [Anterior Bilateral Throughout] Blood Pressure 105/73 138/94 O2 Sat by Pulse 96 100 Oximetry General appearance: Present: no acute distress, well-nourished - EENT Eyes: PERRL, EOM intact ENT: hearing intact, clear oral mucosa Ears: bilateral: normal - Neck Neck: supple, normal ROM - Respiratory Respiratory effort: normal Respiratory: bilateral: CTA - Breasts Breasts: normal - Cardiovascular Rhythm: regular Heart Sounds: Present: S1 & S2. Absent: gallop, rub Extremities: pulses intact, No edema, normal color, Full ROM, abnormal (Left BKA) Extremity abnormal: other (L BKA) - Gastrointestinal General gastrointestinal: Present: soft, non-tender, non-distended, normal bowel sounds - Genitourinary Male genitourinary: normal - Integumentary Integumentary: clear, warm, dry - Musculoskeletal Musculoskeletal: 1, strength equal bilaterally - Neurologic Neurologic: moves all extremities - Psychiatric Psychiatric: memory intact, appropriate mood/affect, intact judgment & insight - Labs CBC & Chem 7: 04/05/20 03:54 04/06/20 07:14 Labs: Abnormal lab results 04/05/20 04/06/20 04/06/20 Range/Units 22:33 07:14 07:14 PT (12.2-14.9) Sec. INR (0.87-1.13) Potassium 5.6 H (3.6-5.0) mmol/L BUN 83 H (9-20) mg/dL Creatinine 1.9 H (0.8-1.3) mg/dL Glucose 202 H (75-100) mg/dL POC Glucose 253 H (70-105) Ferritin 444.2 H (30.0-300.0) ng/mL AST 469 H (5-40) units/L ALT 237 H (7-56) units/L Alkaline Phosphatase 332 H (35-129) units/L Albumin 2.2 L (3.9-5) g/dL 04/06/20 04/06/20 04/06/20 Range/Units 08:23 12:00 13:56 PT 27.0 H (12.2-14.9) Sec. INR 2.44 H (0.87-1.13) Potassium (3.6-5.0) mmol/L BUN (9-20) mg/dL Creatinine (0.8-1.3) mg/dL Glucose (75-100) mg/dL POC Glucose 226 H 176 H (70-105) Ferritin (30.0-300.0) ng/mL AST (5-40) units/L ALT (7-56) units/L Alkaline Phosphatase (35-129) units/L Albumin (3.9-5) g/dL HEART Score - HEART Score Troponin: Troponin T 3.200 ng/mL (0.00-0.029) H* D 03/20/20 05:12
--- NOTE | 2020-04-06 17:53 | Gastroenterology Progress Note ---
Assessment and Plan - Patient Problems (1) Abnormal liver enzymes Current Visit: Yes Status: Acute Plan to address problem: - Gallstones present, but agree with surgery no signs of cholecystitis. More likely from sepsis/recent gangrene/multiple surgical procedures. - Hep B and C serology negative. - AST and ALT trending down today. - No mass seen on recent imaging studies. - monitor LFTs and INR. - supportive care Subjective Date of service: 04/06/20 Principal diagnosis: Acute limb ischemia; STARR; COPD; Ac hypoxemic resp failure; DM II; NSTEMI Interval history: No acute events. No abdominal pain, nausea/vomiting. Objective - Constitutional Vitals: Temp Pulse Resp BP Pulse Ox 98.2 F 84 20 138/94 100 04/06/20 16:05 04/06/20 16:05 04/06/20 16:05 04/06/20 16:05 04/06/20 16:05 General appearance: no acute distress - EENT Eyes: EOM intact ENT: hearing intact - Respiratory Respiratory effort: normal - Cardiovascular Rhythm: regular Heart Sounds: Present: S1 & S2 - Gastrointestinal General gastrointestinal: Present: soft, non-tender, non-distended - Labs CBC & Chem 7: 04/05/20 03:54 04/06/20 07:14 Labs: Laboratory Results - last 24 hr 04/05/20 04/06/20 04/06/20 22:33 07:14 07:14 PT INR Sodium 139 Potassium 5.6 H Chloride 103.8 Carbon Dioxide 22 Anion Gap 19 BUN 83 H Creatinine 1.9 H Estimated GFR 37 BUN/Creatinine Ratio 44 Glucose 202 H POC Glucose 253 H Calcium 8.4 Ferritin 444.2 H Total Bilirubin 0.70 AST 469 H ALT 237 H Alkaline Phosphatase 332 H Total Protein 6.6 Albumin 2.2 L Albumin/Globulin Ratio 0.5 Hep Bs Antigen Hepatitis C Antibody 04/06/20 04/06/20 04/06/20 07:14 07:14 08:23 PT INR Sodium Potassium Chloride Carbon Dioxide Anion Gap BUN Creatinine Estimated GFR BUN/Creatinine Ratio Glucose POC Glucose 226 H Calcium Ferritin Total Bilirubin AST ALT Alkaline Phosphatase Total Protein Albumin Albumin/Globulin Ratio Hep Bs Antigen Non-reactive Hepatitis C Antibody Non-reactive 04/06/20 04/06/20 04/06/20 12:00 13:56 16:18 PT 27.0 H INR 2.44 H Sodium Potassium Chloride Carbon Dioxide Anion Gap BUN Creatinine Estimated GFR BUN/Creatinine Ratio Glucose POC Glucose 176 H 103 Calcium Ferritin Total Bilirubin AST ALT Alkaline Phosphatase Total Protein Albumin Albumin/Globulin Ratio Hep Bs Antigen Hepatitis C Antibody
[2020-04-06] MEDS: INSULIN GLARGINE 100 UNITS/ML SUB-Q SCH (22:50)
[2020-04-07 05:37] LABS: INR 2.89 (0.87-1.13)
[2020-04-07 05:48] LABS: Albumin 2.7 g/dL (3.9-5); Calcium 8.4 mg/dL (8.4-10.2)
[2020-04-07] MEDS: FUROSEMIDE 40 MG/4 ML INJ IV SCH ×2 (07:16→18:26)
[2020-04-07] MEDS: [UNRECOGNIZED DRUG - REMARK] SUB-Q SCH ×3 (08:42→16:26)
[2020-04-07] MEDS: INSULIN LISPRO 100 UNIT/ML VIAL 3 mL SUB-Q SCH ×3 (08:42→16:27)
[2020-04-07] MEDS: ARFORMOTEROL 15 MCG/2 ML NEBU IH SCH ×2 (08:45→21:17)
[2020-04-07] MEDS: BUDESONIDE 0.5 MG/2 ML NEBU IH SCH ×2 (08:45→21:17)
[2020-04-07] MEDS: PREGABALIN 75 MG CAP PO SCH ×2 (09:35→22:04)
[2020-04-07] MEDS: APIXABAN 5 MG TAB PO SCH ×2 (09:35→22:04)
[2020-04-07] MEDS: PANTOPRAZOLE 40 MG TAB PO SCH ×2 (09:35→22:04)
[2020-04-07] MEDS: CLOPIDOGREL 75 MG TAB PO SCH (09:35)
[2020-04-07] MEDS: METOPROLOL TARTRATE 50 MG TAB PO SCH ×2 (09:36→22:04)
--- NOTE | 2020-04-07 14:58 | Gastroenterology Progress Note ---
Assessment and Plan - Patient Problems (1) Abnormal liver enzymes Current Visit: Yes Status: Acute Plan to address problem: - Gallstones present, but agree with surgery no signs of cholecystitis. More likely from sepsis/recent gangrene/multiple surgical procedures. - Hep B and C serology negative. - AST and ALT continues to trend down. - INR remains elevated. - No mass seen on recent imaging studies. - monitor LFTs and INR. - supportive care Subjective Date of service: 04/07/20 Principal diagnosis: Acute limb ischemia; STARR; COPD; Ac hypoxemic resp failure; DM II; NSTEMI Interval history: Patient complains of back pain. No abdominal pain. Objective - Constitutional Vitals: Temp Pulse Resp BP Pulse Ox 99.6 F 78 18 108/79 100 04/07/20 11:37 04/07/20 11:37 04/07/20 11:37 04/07/20 11:37 04/07/20 11:37 General appearance: no acute distress - EENT ENT: hearing intact - Respiratory Respiratory effort: normal - Cardiovascular Rhythm: regular Heart Sounds: Present: S1 & S2 - Gastrointestinal General gastrointestinal: Present: soft, non-tender, non-distended - Labs CBC & Chem 7: 04/05/20 03:54 04/07/20 04:58 Labs: Laboratory Results - last 24 hr 04/06/20 04/06/20 04/07/20 16:18 20:45 04:58 PT 30.9 H INR 2.89 H Sodium Potassium Chloride Carbon Dioxide Anion Gap BUN Creatinine Estimated GFR BUN/Creatinine Ratio Glucose POC Glucose 103 139 H Calcium Total Bilirubin AST ALT Alkaline Phosphatase Total Protein Albumin Albumin/Globulin Ratio 04/07/20 04:58 PT INR Sodium 140 Potassium 6.0 H Chloride 102.5 Carbon Dioxide 22 Anion Gap 22 BUN 85 H Creatinine 2.1 H Estimated GFR 33 BUN/Creatinine Ratio 40 Glucose 177 H POC Glucose Calcium 8.4 Total Bilirubin 0.70 AST 351 H ALT 215 H Alkaline Phosphatase 332 H Total Protein 6.5 Albumin 2.7 L Albumin/Globulin Ratio 0.7
--- NOTE | 2020-04-07 16:32 | Progress Note ---
Assessment and Plan Brief history; 54-year-old male with known history of CVA without any residual deficits, hypertension ,diabetes mellitus, coronary artery disease with CABG x2, pulmonary embolism and DVT presented to the emergency room today with a complaint of left foot pain and discoloration for about a week.His leg is cool from the knee down and cold and mottled from the lower calf down. He has an insensate foot from the midfoot down with no ability to move the toes. This has been present since he woke up. Last time he had function in his foot was last night. Left lower extremity ischemia, vascular evaluated, status post fasciotomy and revascula rization. 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/2020, persistent leukocytosis, transaminitis, surgery GI following, DC planning in progress 03/19/2020 status post endovascular revascularization. 03/19/2020 s/p left lower extremity 4 compartment fasciotomy 03/25/2020; s/p left BKA on 03/26/20; evaluated by PT, recommend acute rehab 03/29/20; acute rehab facility from [facility]placed by [facility] evaluated the patient Patient is not ready for acute rehab, they will reevaluate 03/30/20; complains of insomnia, add Ambien 03/31; patient is hypotensive, [employer] pump discontinued. Added Dilaudid IV as needed 04/01; patient has worsening renal function, and drop in H&H, closely monitor transfuse as needed 04/02; insurance did not approve acute rehab, SNF placement is being processed 04/03: Patient has elevated LFTs WBC remain high, abdominal ultrasound 04/04; abdominal ultrasound findings noted, fatty liver, thickened gallbladder possible cholecystitis HIDA scan requested, discussed with Dr. Rhodes for further evaluation and recommendation 04/05; patient unable to list flat HIDA scan, test canceled, follow GI and surgery evaluation 04/07/2020 patient has more drainage from the left BKA and patient is lethargic Possible sepsis --Sepsis Wound care and IV antibiotics ID consult Wound culture --Transaminitis; unknown etiology, slowly trend Abdominal ultrasound, fatty liver, thickening of gallbladder No cholecystitis Clear to eat --Acute left lower extremity ischemia Current Visit: Yes Status: Acute 03/19/2020 status post endovascular revascularization 03/19/2020 s/p left lower extremity 4 compartment fasciotomy Management per vascular Left BKA on 03/25/2020 --Non-ST elevation AK : Current Visit: Yes Status: Acute Patient has history of CABG patient denies any chest pain. Management per cardiology Per cardiology non-STEMI 2 Elevated troponins at the time of admission --Acute systolic CHF; EF 30-35%% Current Visit: Yes Status: Acute Beta-blockers, BIJAN inhibitor, diuretics Improved -- Hyperglycemia due to diabetes mellitus Current Visit: Yes Status: Acute Accu-Chek sliding scale coverage ADA diet Long-acting insulin as needed, W9k---28.0 --Nicotine dependence Current Visit: Yes Status: Acute Smoking cessation nicotine patch as needed --Anemia; Current Visit: Yes Status: Acute Gradual l drop in H&H, closely monitor and transfuse as needed --Hypotension; Current Visit: Yes Status: Acute patient [employer] pump on hold due to hypotension And give low-dose Dilaudid every 6 hours as needed for pain. Closely monitor blood pressures, fluid bolus as needed --DVT prophylaxis Current Visit: Yes Status: Acute Patient currently on anticoagulation. -- Full code status Current Visit: Yes Status: Acute Patient is on heparin drip Discharge planning issues possible acute rehab placement/SNF placement Subjective Date of service: 04/07/20 Principal diagnosis: Acute limb ischemia; STARR; COPD; Ac hypoxemic resp failure; DM II; NSTEMI Interval history: 54-year-old male with known history of CVA without any residual deficits, hypertension ,diabetes mellitus, coronary artery disease with CABG x2, pulmonary embolism and DVT presented to the emergency room today with a complaint of left foot pain and discoloration for about a week.His leg is cool from the knee down and cold and mottled from the lower calf down. He has an insensate foot from the midfoot down with no ability to move the toes. This has been present since he woke up. Last time he had function in his foot was last night. Left lower extremity ischemia, vascular evaluated, status post fasciotomy and revascularization. left BKA on 03/25/2020 More drainage from the left BKA stump Patient more lethargic I have seen and examined the patient at the bedside Patient's chart and medications reviewed Patient is in mild shortness of breath Alert awake responding appropriately Vital signs reviewed Objective - Constitutional Vitals: Vital Signs - 12hr 04/07/20 04/07/20 04/07/20 04:51 07:15 07:41 Temperature 97.8 F 97.6 F 98.0 F Pulse Rate 77 74 Pulse Rate [ Apical] Pulse Rate [ From Monitor] Respiratory 16 22 18 Rate Blood Pressure 99/64 108/76 102/72 O2 Sat by Pulse 94 96 Oximetry 04/07/20 04/07/20 04/07/20 09:34 09:36 10:00 Temperature Pulse Rate 74 Pulse Rate [ 86 Apical] Pulse Rate [ 86 From Monitor] Respiratory 22 Rate Blood Pressure 120/72 120/72 O2 Sat by Pulse Oximetry 04/07/20 04/07/20 11:37 15:47 Temperature 99.6 F 98.6 F Pulse Rate 78 Pulse Rate [ Apical] Pulse Rate [ From Monitor] Respiratory 18 18 Rate Blood Pressure 108/79 117/77 O2 Sat by Pulse 100 Oximetry General appearance: Present: no acute distress, well-nourished - EENT Eyes: PERRL, EOM intact ENT: hearing intact, clear oral mucosa Ears: bilateral: normal - Neck Neck: supple, normal ROM - Respiratory Respiratory effort: normal Respiratory: bilateral: CTA - Breasts Breasts: normal - Cardiovascular Heart rate: 78 Rhythm: regular Heart Sounds: Present: S1 & S2. Absent: gallop, rub Extremities: pulses intact, No edema, normal color, Full ROM, abnormal (Left BKA) Extremity abnormal: other (Left BKA) - Gastrointestinal General gastrointestinal: Present: soft, non-tender, non-distended, normal bowel sounds - Genitourinary Male genitourinary: normal - Integumentary Integumentary: clear, warm, dry - Musculoskeletal Musculoskeletal: 1, strength equal bilaterally - Neurologic Neurologic: moves all extremities - Psychiatric Psychiatric: memory intact, appropriate mood/affect, intact judgment & insight - Labs CBC & Chem 7: 04/05/20 03:54 04/07/20 04:58 Labs: Abnormal lab results 04/06/20 04/07/20 04/07/20 Range/Units 20:45 04:58 04:58 PT 30.9 H (12.2-14.9) Sec. INR 2.89 H (0.87-1.13) Potassium 6.0 H (3.6-5.0) mmol/L BUN 85 H (9-20) mg/dL Creatinine 2.1 H (0.8-1.3) mg/dL Glucose 177 H (75-100) mg/dL POC Glucose 139 H (70-105) AST 351 H (5-40) units/L ALT 215 H (7-56) units/L Alkaline Phosphatase 332 H (35-129) units/L Albumin 2.7 L (3.9-5) g/dL 04/07/20 04/07/20 Range/Units 07:53 11:51 PT (12.2-14.9) Sec. INR (0.87-1.13) Potassium (3.6-5.0) mmol/L BUN (9-20) mg/dL Creatinine (0.8-1.3) mg/dL Glucose (75-100) mg/dL POC Glucose 167 H 120 H (70-105) AST (5-40) units/L ALT (7-56) units/L Alkaline Phosphatase (35-129) units/L Albumin (3.9-5) g/dL HEART Score - HEART Score Troponin: Troponin T 3.200 ng/mL (0.00-0.029) H* D 03/20/20 05:12
[2020-04-07] MEDS ORDERED: VANCOMYCIN PHARMACY TO DOSE IV SCH (17:00)
[2020-04-07] MEDS: AMPICILLIN/SULBACTA 3GM/100ML 3 GM/100 ML BAG IV SCH (18:40)
[2020-04-07] MEDS: VANCOMYCIN 2,000 MG in SODIUM CHLORIDE 0.9% 500 ML 500 ML IV SCH (18:41)
[2020-04-07] MEDS: INSULIN GLARGINE 100 UNITS/ML SUB-Q SCH (22:04)
[2020-04-08] MEDS: [UNRECOGNIZED DRUG - REMARK] SUB-Q SCH ×5 (01:15→22:22)
[2020-04-08] MEDS: AMPICILLIN/SULBACTA 3GM/100ML 3 GM/100 ML BAG IV SCH ×3 (01:16→11:26)
[2020-04-08 05:50] LABS: Basophils % (Auto) 0.4 % (0.0-1.8); Eosinophils % (Auto) 0.2 % (0.0-4.3); Hematocrit 28.9 % (35.5-45.6); Hemoglobin 9.1 gm/dl (11.8-15.2); Lymphocytes # (Auto) 1.4 K/mm3 (1.2-5.4); Lymphocytes % (Auto) 12.4 % (13.4-35.0); Mean Corpuscular HGB Conc 32 % (32-34); Mean Corpuscular Volume 94 fl (84-94); Monocytes # (Auto) 0.4 K/mm3 (0.0-0.8); Monocytes % (Auto) 3.7 % (0.0-7.3); Platelet Count 348 K/mm3 (140-440); Red Blood Count 3.07 M/mm3 (3.65-5.03); Red Cell Distribution Width 16.8 % (13.2-15.2)
[2020-04-08 06:13] LABS: Albumin 2.6 g/dL (3.9-5); Calcium 8.5 mg/dL (8.4-10.2)
[2020-04-08] MEDS ORDERED: CALCIUM GLUCONATE 1,000 MG in SODIUM CHLORIDE 0.9% 100 ML IV ONE (06:32)
[2020-04-08] MEDS ORDERED: INSULIN REGULAR, HUMAN 100 UNIT/ML 3ML VIAL IV ONE (06:32)
[2020-04-08] MEDS ORDERED: SODIUM BICARB 8.4% 50 MEQ/50 ML SYRINGE IV ONE (06:42)
[2020-04-08] MEDS ORDERED: DEXTROSE 50% IN WATER (25GM) 50 ML SYRINGE IV ONE ×2 (06:42→07:25)
[2020-04-08] MEDS: FUROSEMIDE 40 MG/4 ML INJ IV SCH ×2 (07:22→18:13)
[2020-04-08] MEDS ORDERED: DEXTROSE 50% IN WATER (25GM) 50 ML VIAL IV NR (07:38)
--- NOTE | 2020-04-08 07:44 | Event Note ---
Date: 04/08/20 Responded to code med this am Patient noted lethargic BG at low 60s, K 6.3 ordered for hyperkalemia cocktail, D50 repeat BMP, CT head (patient on eliquis will r/o brain hemorrhage), CXR, EKG d/c long acting insulin for now CC time 35 minutes
[2020-04-08] MEDS: INSULIN LISPRO 100 UNIT/ML VIAL 3 mL SUB-Q SCH (08:00)
--- NOTE | 2020-04-08 08:41 | XRay Report ---
CHEST 1 VIEW INDICATION / CLINICAL INFORMATION: SOB. COMPARISON: 04/05/2020 FINDINGS: SUPPORT DEVICES: None. HEART / MEDIASTINUM: Stable. LUNGS / PLEURA: Increasing opacification of the left lung with near complete whiteout. Right lung stephanie ears grossly stable with mild haziness over the lower lung and few scattered mild patchy opacities. S mall-moderate left-sided pleural effusion. No pneumothorax. ADDITIONAL FINDINGS: No significant additional findings. IMPRESSION: 1. Progressive airspace disease, worse on the left. Signer Name: Mesfin Flores MD Signed: 04/08/2020 8:37 AM Workstation Name: [id number]
[2020-04-08] MEDS: BUDESONIDE 0.5 MG/2 ML NEBU IH SCH ×2 (09:17→21:12)
[2020-04-08] MEDS: ARFORMOTEROL 15 MCG/2 ML NEBU IH SCH ×2 (09:17→21:12)
--- NOTE | 2020-04-08 10:05 | Cat Scan Report ---
CT HEAD WITHOUT CONTRAST INDICATION / CLINICAL INFORMATION: AMS. TECHNIQUE: All CT scans at this location are performed using CT dose reduction for ALARA by means of automated e xposure control. COMPARISON: None available. FINDINGS: HEMORRHAGE: No evidence of intracranial hemorrhage or extra-axial fluid collection. EXTRA-AXIAL SPACES: There is mild sulcal effacement along the lateral aspect of the left cerebral hem isphere in the parieto-occipital region. Sulci, sylvian fissures and basilar cisterns have an unremar kable appearance. VENTRICULAR SYSTEM: Third and lateral ventricles are normal in size and shape. Fourth ventricle has a n unremarkable appearance. CEREBRAL PARENCHYMA: An area of decreased brain parenchymal attenuation is observed along the lateral aspect of the left cerebral hemisphere near the parieto-occipital junction. This is a wedge-shaped a bnormality with cortical involvement. This likely represents an area of subacute infarction. MIDLINE SHIFT OR HERNIATION: There is no midline shift. CEREBELLUM / BRAINSTEM: Encephalomalacia is present along the inferomedial aspect of both cerebral he mispheres (left larger than right) secondary to bilateral PICA infarctions. MIDLINE STRUCTURES:No abnormalities of the pituitary gland or pineal region are identified. INTRACRANIAL VESSELS: Extensively calcified atherosclerotic plaque is seen along the course of the ca vernous segments of both internal carotid arteries as well as at the distal vertebral arteries. ORBITS: visualized portions of the orbits have an unremarkable appearance. SOFT TISSUES of HEAD: No significant abnormality. CALVARIUM: Evaluation of bone windows reveals no abnormalities. PARANASAL SINUSES / MASTOID AIR CELLS: Paranasal sinuses are free from inflammatory mucosal disease. Mastoid air cells are normally pneumatized. ADDITIONAL FINDINGS: None. IMPRESSION: 1. Findings indicate probable late subacute infarction in a posterior cerebral artery or posterior di vision middle cerebral artery distribution involving the lateral aspect of the left cerebral hemisphe re in the parietal occipital junction region. 2. Remote bilateral cerebellar infarctions in a PICA distribution. 3. No acute intracranial abnormalities are identified. Signer Name: Kennedy Hampton MD Signed: 04/08/2020 10:01 AM Workstation Name: [id number]
[2020-04-08] MEDS: METOPROLOL TARTRATE 50 MG TAB PO SCH ×2 (11:20→22:23)
[2020-04-08] MEDS: PANTOPRAZOLE 40 MG TAB PO SCH ×2 (11:20→22:24)
[2020-04-08] MEDS: APIXABAN 5 MG TAB PO SCH ×2 (11:20→22:22)
[2020-04-08] MEDS: CLOPIDOGREL 75 MG TAB PO SCH (11:20)
[2020-04-08] MEDS: PREGABALIN 75 MG CAP PO SCH ×2 (11:21→22:23)
--- NOTE | 2020-04-08 11:24 | Progress Note ---
Assessment and Plan 54 year old male with multiple medical issues including multiple venous thrombotic events, active smoking, and elevated troponins who originally presents with ischemic left lower extremity with percutaneous thromboembolectomy with left fasciotomies ultimately converted to left BKA. Has had drainage from the left BKA staple line with poor healing and fibrinous debris. The staple line has serous drainage which could be from global issues. There is fibrinous debris around the wound periphery/poor healing. Possible infection? Covered by antibiotics over the last few days. Both legs are cool, but had code met earlier today. Possible left SFA/pop reocclusion? Ordered arterial doppler of the left leg. If reoccluded, will decided upon repeat thrombectomy vs left AKA. Subjective Date of service: 04/08/20 Principal diagnosis: Acute limb ischemia; STARR; COPD; Ac hypoxemic resp failure; DM II; NSTEMI Interval history: Sleepy, had code MET earlier today. Both legs are cool. Has CVA in left side of head. Unclear if this is from original event, which would suggest cardioembolic cause. Left BKA staple line has serous drainage with the edges of the wound with fibrinous exudate. Objective - Constitutional Vitals: Vital Signs - 12hr 04/08/20 04/08/20 04/08/20 00:00 01:00 04:10 Temperature 97.9 F 97.9 F Pulse Rate 71 75 80 Respiratory 20 20 20 Rate Blood Pressure 127/80 105/76 Blood Pressure [Left] O2 Sat by Pulse 95 96 93 Oximetry 04/08/20 04/08/20 07:22 08:45 Temperature Pulse Rate 67 77 Respiratory 18 Rate Blood Pressure 121/79 Blood Pressure 109/77 [Left] O2 Sat by Pulse 99 100 Oximetry General appearance: Present: mild distress (Global sleepiness and left BKA pain) - EENT ENT: hearing intact - Respiratory Respiratory effort: normal Extremities: abnormal (bilateral lower extremities are cool. left BKA described in subjective.) - Psychiatric Psychiatric: cooperative, agitated - Labs CBC & Chem 7: 04/08/20 04:44 04/08/20 04:44 Labs: Abnormal lab results 04/07/20 04/07/20 04/08/20 Range/Units 07:53 11:51 04:44 WBC 11.7 H (4.5-11.0) K/mm3 RBC 3.07 L (3.65-5.03) M/mm3 Hgb 9.1 L (11.8-15.2) gm/dl Hct 28.9 L (35.5-45.6) % RDW 16.8 H (13.2-15.2) % Lymph % (Auto) 12.4 L (13.4-35.0) % Seg Neutrophils % 83.3 H (40.0-70.0) % Seg Neutrophils # 9.7 H (1.8-7.7) K/mm3 Potassium (3.6-5.0) mmol/L Carbon Dioxide (22-30) mmol/L BUN (9-20) mg/dL Creatinine (0.8-1.3) mg/dL Glucose (75-100) mg/dL POC Glucose 167 H 120 H (70-105) AST (5-40) units/L ALT (7-56) units/L Alkaline Phosphatase (35-129) units/L Albumin (3.9-5) g/dL 04/08/20 04/08/20 04/08/20 Range/Units 04:44 07:19 08:43 WBC (4.5-11.0) K/mm3 RBC (3.65-5.03) M/mm3 Hgb (11.8-15.2) gm/dl Hct (35.5-45.6) % RDW (13.2-15.2) % Lymph % (Auto) (13.4-35.0) % Seg Neutrophils % (40.0-70.0) % Seg Neutrophils # (1.8-7.7) K/mm3 Potassium 6.3 H* (3.6-5.0) mmol/L Carbon Dioxide 21 L (22-30) mmol/L BUN 89 H (9-20) mg/dL Creatinine 1.9 H (0.8-1.3) mg/dL Glucose 63 L (75-100) mg/dL POC Glucose 65 L 168 H (70-105) AST 370 H (5-40) units/L ALT 211 H (7-56) units/L Alkaline Phosphatase 320 H (35-129) units/L Albumin 2.6 L (3.9-5) g/dL Medications & Allergies - Medications Allergies/Adverse Reactions: Allergies No Known Allergies Allergy (Unverified 03/18/20 15:17) Home Medications: Home Medications Medication Instructions Recorded Confirmed Last Taken Type AtorvaSTATin [Lipitor] 20 mg PO QHS 03/20/20 03/20/20 03/14/20 History Clopidogrel [Plavix] 75 mg PO QHS 03/20/20 03/20/20 03/14/20 History Famotidine [Acid Controller] 20 mg PO BID 03/20/20 03/20/20 03/14/20 History Fenofibrate Nanocrystallized 48 mg PO DAILY 03/20/20 03/20/20 03/14/20 History [Fenofibrate] Metoprolol Tartrate 25 mg PO BID 03/20/20 03/20/20 03/14/20 History Pregabalin [Lyrica] 150 mg PO BID 03/20/20 03/20/20 03/14/20 History amLODIPine [Norvasc] 5 mg PO DAILY 03/20/20 03/20/20 03/14/20 History glipiZIDE [Glucotrol] 10 mg PO BID 03/20/20 03/20/20 03/14/20 History hydroCHLOROthiazide [HCTZ] 25 mg PO QDAY 03/20/20 03/20/20 03/14/20 History lisinopriL [Zestril TAB] 40 mg PO QDAY 03/20/20 03/20/20 03/14/20 History Active Medications: Generic Name Dose Route Start Last Admin Trade Name Freq PRN Reason Stop Dose Admin Acetaminophen/Hydrocodone Bitart 2 each 03/22/20 17:18 04/06/20 09:52 [place] 5/325 PO 2 each Q4H PRN Administration Pain, Moderate (4-6) Albuterol 2.5 mg 04/01/20 00:03 Proventil IH Q6HRT PRN Shortness Of Breath Apixaban 5 mg 03/26/20 22:00 04/07/20 22:04 Eliquis PO 5 mg Q12HR LOI Administration Protocol Arformoterol Tartrate 15 mcg 03/19/20 20:00 04/08/20 09:17 Brogisella Quesada IH Not Given Q12HRT LOI Atorvastatin Calcium 40 mg 03/19/20 22:00 04/07/20 22:04 Lipitor PO 40 mg QHS LOI Administration Budesonide 0.5 mg 03/19/20 20:00 04/08/20 09:17 Pulmicort IH Not Given Q12HRT LOI Clopidogrel Bisulfate 75 mg 03/19/20 10:00 04/07/20 09:35 Plavix PO 75 mg QDAY LOI Administration Dextrose 50 ml 03/18/20 22:21 04/08/20 07:42 D50w (25gm) Syringe IV 50 ml Q30MIN PRN Administration Hypoglycemia Protocol Diphenhydramine HCl 25 mg 03/19/20 12:44 Benadryl IV Q4H PRN Itching Furosemide 40 mg 04/06/20 06:00 04/08/20 07:22 Lasix IV 40 mg 0600,1800 LOI Administration Guaifenesin 10 ml 04/01/20 00:03 04/02/20 05:34 Guaifenesin Dm Syrup PO 10 ml Q4H PRN Administration Cough Hydromorphone/Sodium Chloride 0 mg 03/19/20 13:00 03/30/20 02:09 Dilaudid [employer] 6mg/30ml IV 1 cart DIRECT LOI Administration Protocol Ampicillin Sodium/Sulbactam Sodium 3 gm in 100 mls @ 100 mls/hr 04/07/20 18:00 04/08/20 07:22 Unasyn/Ns 3 Gm/100 Ml IV 100 mls/hr Q6H LOI Administration Protocol Sodium Chloride 1,000 mls @ 75 mls/hr 04/07/20 16:45 Nacl 0.9% 1000 Ml IV DIRECT LOI Vancomycin HCl 2,000 mg/ 540 mls @ 250 mls/hr 04/07/20 18:00 04/07/20 18:41 Sodium Chloride IV 250 mls/hr Q18H LOI Administration Insulin Human Lispro 0 unit 03/20/20 16:30 04/08/20 09:00 Humalog SUB-Q Not Given ACHS LOI Protocol Ipratropium [place] 0.5 mg 04/01/20 00:05 Atrovent IH Q6HRT PRN Shortness Of Breath Magnesium Hydroxide 30 ml 03/18/20 22:21 Milk Of Magnesia PO Q4H PRN Constipation Metoprolol Tartrate 50 mg 03/19/20 22:00 04/07/20 22:04 Metoprolol PO 50 mg BID LOI Administration Naloxone HCl 0.1 mg 03/19/20 12:44 Naloxone IV Q2MIN PRN Res Rate </= 8 or 02 SAT < 92% Ondansetron HCl 4 mg 03/18/20 22:21 04/05/20 01:46 Zofran IV 4 mg Q8H PRN Administration Nausea And Vomiting Pantoprazole Sodium 40 mg 03/20/20 10:00 04/07/20 22:04 Protonix PO 40 mg BID LOI Administration Pregabalin 150 mg 03/22/20 22:00 04/07/20 22:04 Pregabalin PO 150 mg BID LOI Administration Sodium Chloride 10 ml 03/19/20 10:00 04/07/20 22:05 Sodium Chloride Flush Syringe 10 Ml IV 10 ml BID LOI Administration Sodium Chloride 10 ml 03/18/20 22:21 03/22/20 19:52 Sodium Chloride Flush Syringe 10 Ml IV 10 ml PRN PRN Administration LINE FLUSH Zolpidem Tartrate 5 mg 03/31/20 19:09 04/05/20 22:32 Ambien PO 5 mg QHS PRN Administration Sleep HEART Score - HEART Score Troponin: Troponin T 3.200 ng/mL (0.00-0.029) H* D 03/20/20 05:12
--- NOTE | 2020-04-08 12:48 | Consultation ---
History of Present Illness - Reason for Consult Consult date: 04/08/20 stump infection Requesting physician: JOSEPH JOHNSON - History of Present Illness The patient is a 54-year-old male with prior CVA, hypertension, diabetes, coronary artery disease, history of DVT and PE, peripheral vascular disease who was admitted to the hospital with a cold left lower extremity. He underwent a BKA on 03/25/2020. Today, patient was noted to be lethargic, there was also increased drainage from his left BKA wound. He had an [employer] called earlier this morning. At the time of my evaluation, patient is somnolent. No fever. Review of Systems: Limited due to altered mental status Past History Past Medical History: CAD, COPD, diabetes, hypertension, hyperlipidemia, other (Morbid obesity) Past Surgical History: CABG, Other (New BKA) Social history: smoking (Current every day smoker) Family history: no significant family history Medications and Allergies Allergies Allergy/AdvReac Type Severity Reaction Status Date / Time No Known Allergies Allergy Unverified 03/18/20 15:17 Home Medications Medication Instructions Recorded Confirmed Last Taken Type AtorvaSTATin [Lipitor] 20 mg PO QHS 03/20/20 03/20/20 03/14/20 History Clopidogrel [Plavix] 75 mg PO QHS 03/20/20 03/20/20 03/14/20 History Famotidine [Acid Controller] 20 mg PO BID 03/20/20 03/20/20 03/14/20 History Fenofibrate Nanocrystallized 48 mg PO DAILY 03/20/20 03/20/20 03/14/20 History [Fenofibrate] Metoprolol Tartrate 25 mg PO BID 03/20/20 03/20/20 03/14/20 History Pregabalin [Lyrica] 150 mg PO BID 03/20/20 03/20/20 03/14/20 History amLODIPine [Norvasc] 5 mg PO DAILY 03/20/20 03/20/20 03/14/20 History glipiZIDE [Glucotrol] 10 mg PO BID 03/20/20 03/20/20 03/14/20 History hydroCHLOROthiazide [HCTZ] 25 mg PO QDAY 03/20/20 03/20/20 03/14/20 History lisinopriL [Zestril TAB] 40 mg PO QDAY 03/20/20 03/20/20 03/14/20 History Active Meds: Active Medications Acetaminophen/Hydrocodone Bitart ([place] 5/325) 2 each PO Q4H PRN PRN Reason: Pain, Moderate (4-6) Last Admin: 04/06/20 09:52 Dose: 2 each Documented by: Albuterol (Proventil) 2.5 mg IH Q6HRT PRN PRN Reason: Shortness Of Breath Apixaban (Eliquis) 5 mg PO Q12HR LOI; Protocol Last Admin: 04/08/20 11:20 Dose: 5 mg Documented by: Arformoterol Tartrate (Brovana Nebu) 15 mcg IH Q12HRT LOI Last Admin: 04/08/20 09:17 Dose: Not Given Documented by: Atorvastatin Calcium (Lipitor) 40 mg PO QHS [facility] Last Admin: 04/07/20 22:04 Dose: 40 mg Documented by: Budesonide (Pulmicort) 0.5 mg IH Q12HRT LOI Last Admin: 04/08/20 09:17 Dose: Not Given Documented by: Clopidogrel Bisulfate (Plavix) 75 mg PO QDAY [facility] Last Admin: 04/08/20 11:20 Dose: 75 mg Documented by: Dextrose (D50w (25gm) Syringe) 50 ml IV Q30MIN PRN; Protocol PRN Reason: Hypoglycemia Last Admin: 04/08/20 07:42 Dose: 50 ml Documented by: Diphenhydramine HCl (Benadryl) 25 mg IV Q4H PRN PRN Reason: Itching Furosemide (Lasix) 40 mg IV 0600,1800 [facility] Last Admin: 04/08/20 07:22 Dose: 40 mg Documented by: Guaifenesin (Guaifenesin Dm Syrup) 10 ml PO Q4H PRN PRN Reason: Cough Last Admin: 04/02/20 05:34 Dose: 10 ml Documented by: Hydromorphone/Sodium Chloride (Dilaudid [employer] 6mg/30ml) 0 mg IV DIRECT LOI; Protocol Last Admin: 03/30/20 02:09 Dose: 1 cart Documented by: Ampicillin Sodium/Sulbactam Sodium (Unasyn/Ns 3 Gm/100 Ml) 3 gm in 100 mls @ 10 0 mls/hr IV Q6H LOI; Protocol Last Admin: 04/08/20 11:26 Dose: 100 mls/hr Documented by: Sodium Chloride (Nacl 0.9% 1000 Ml) 1,000 mls @ 75 mls/hr IV DIRECT LOI Vancomycin HCl 2,000 mg/ (Sodium Chloride) 540 mls @ 250 mls/hr IV Q18H [facility] Last Admin: 04/07/20 18:41 Dose: 250 mls/hr Documented by: Insulin Human Lispro (Humalog) 0 unit SUB-Q ACHS [facility]; Protocol Last Admin: 04/08/20 12:05 Dose: Not Given Documented by: Ipratropium [place] (Atrovent) 0.5 mg IH Q6HRT PRN PRN Reason: Shortness Of Breath Magnesium Hydroxide (Milk Of Magnesia) 30 ml PO Q4H PRN PRN Reason: Constipation Metoprolol Tartrate (Metoprolol) 50 mg PO BID [facility] Last Admin: 04/08/20 11:20 Dose: 50 mg Documented by: Naloxone HCl (Naloxone) 0.1 mg IV Q2MIN PRN PRN Reason: Res Rate </= 8 or 02 SAT < 92% Ondansetron HCl (Zofran) 4 mg IV Q8H PRN PRN Reason: Nausea And Vomiting Last Admin: 04/05/20 01:46 Dose: 4 mg Documented by: Pantoprazole Sodium (Protonix) 40 mg PO BID [facility] Last Admin: 04/08/20 11:20 Dose: 40 mg Documented by: Pregabalin (Pregabalin) 150 mg PO BID [facility] Last Admin: 04/08/20 11:21 Dose: 150 mg Documented by: Sodium Chloride (Sodium Chloride Flush Syringe 10 Ml) 10 ml IV BID [facility] Last Admin: 04/08/20 11:21 Dose: 10 ml Documented by: Sodium Chloride (Sodium Chloride Flush Syringe 10 Ml) 10 ml IV PRN PRN PRN Reason: LINE FLUSH Last Admin: 03/22/20 19:52 Dose: 10 ml Documented by: Zolpidem Tartrate (Ambien) 5 mg PO QHS PRN PRN Reason: Sleep Last Admin: 04/05/20 22:32 Dose: 5 mg Documented by: Physical Examination - Physical Exam Narrative exam: Physical Exam: Constitutional: Somnolent, can be awakened Head, Ears, Nose: Normocephalic, atraumatic. External ears, nose normal Eyes: Conjunctivae/corneas clear. No icterus. No ptosis. Neck: Supple, no meningeal signs Cardiovascular: S1, S2 normal. Respiratory: AE reduced on L side GI: Soft, non-tender; bowel sounds normal. No peritoneal signs Musculoskeletal: Left BKA stump in dressing Skin: No rash or abscess Hem/Lymphatic: No palpable cervical or supraclavicular nodes. No lymphangitis Psych: No agitation Neurological: Somnolent, exam limited - Constitutional Vitals: Vital Signs Temp Pulse Resp BP Pulse Ox 97.9 F 70 18 108/84 100 04/08/20 04:10 04/08/20 11:20 04/08/20 08:45 04/08/20 11:20 04/08/20 08:45 Temperature -Last 24 Hours Temperature 97.9 F Temperature 97.9 F Temperature 97.6 F Temperature 98.6 F Results - Labs CBC & Chem 7: 04/08/20 04:44 04/08/20 04:44 Labs: Abnormal lab results 04/07/20 04/07/20 04/08/20 Range/Units 07:53 11:51 04:44 WBC 11.7 H (4.5-11.0) K/mm3 RBC 3.07 L (3.65-5.03) M/mm3 Hgb 9.1 L (11.8-15.2) gm/dl Hct 28.9 L (35.5-45.6) % RDW 16.8 H (13.2-15.2) % Lymph % (Auto) 12.4 L (13.4-35.0) % Seg Neutrophils % 83.3 H (40.0-70.0) % Seg Neutrophils # 9.7 H (1.8-7.7) K/mm3 Potassium (3.6-5.0) mmol/L Carbon Dioxide (22-30) mmol/L BUN (9-20) mg/dL Creatinine (0.8-1.3) mg/dL Glucose (75-100) mg/dL POC Glucose 167 H 120 H (70-105) AST (5-40) units/L ALT (7-56) units/L Alkaline Phosphatase (35-129) units/L Albumin (3.9-5) g/dL 04/08/20 04/08/2020 Range/Units 04:44 07:19 08:43 WBC (4.5-11.0) K/mm3 RBC (3.65-5.03) M/mm3 Hgb (11.8-15.2) gm/dl Hct (35.5-45.6) % RDW (13.2-15.2) % Lymph % (Auto) (13.4-35.0) % Seg Neutrophils % (40.0-70.0) % Seg Neutrophils # (1.8-7.7) K/mm3 Potassium 6.3 H* (3.6-5.0) mmol/L Carbon Dioxide 21 L (22-30) mmol/L BUN 89 H (9-20) mg/dL Creatinine 1.9 H (0.8-1.3) mg/dL Glucose 63 L (75-100) mg/dL POC Glucose 65 L 168 H (70-105) AST 370 H (5-40) units/L ALT 211 H (7-56) units/L Alkaline Phosphatase 320 H (35-129) units/L Albumin 2.6 L (3.9-5) g/dL Assessment and Plan Cultures: wound culture: pending A/P: 54-year-old male with prior CVA, hypertension, diabetes, coronary artery disease, history of DVT and PE, peripheral vascular disease who was admitted to the hospital with a cold left lower extremity. He underwent a BKA on 03/25/2020: #Sepsis: L BKA stump infection v/s pneumonia. CXR 04/08/2020 with almost complete opacification of left hemithorax. #Left BKA stump drainage: Infection versus vascular insufficiency. Vascular is following. No fever. Empiric antibiotics for now. Follow wound culture results. #Peripheral vascular disease #Diabetes mellitus, uncontrolled: Maintain glycemic control #Acute kidney injury: Renally dose antibiotics #Elevated LFTs /transaminitis: Question of cholecystitis. Unable to perform a HIDA since he could not lay flat. GI and surgery following. #Acute encephalopathy: CT head with late subacute infarction in [employer] territory. Recs: empiric Cefepime + Vancomycin, renally dosed wound culture follow up vascular studies Chris Brower MD, FACP [facility] C: [phone] O: [phone] F: [phone]
--- NOTE | 2020-04-08 13:03 | Vascular Lab Report ---
DUPLEX DOPPLER LOWER EXTREMITY ARTERIAL, LEFT INDICATION: Pain and left leg. History of below-knee amputation. TECHNIQUE: Arterial duplex examination of the left lower extremity was performed using B-mode, color flow and sp ectral Doppler assessment. FINDINGS: LEFT: Common Femoral Artery: PSV 47 cm/sec. Triphasic waveform. Proximal SFA: PSV 82 cm/sec. Biphasic waveform. Mid SFA: PSV 73 cm/sec. Biphasic waveform. Distal SFA: PSV 86 cm/sec. Biphasic waveform. Popliteal artery: PSV 44 cm/sec. Biphasic waveform. IMPRESSION: 1. No significant left lower extremity peripheral artery disease. Signer Name: Anton Duenas MD Signed: 04/08/2020 12:58 PM Workstation Name: [email or web address]
[2020-04-08] MEDS: VANCOMYCIN 2,000 MG in SODIUM CHLORIDE 0.9% 500 ML 500 ML IV SCH (13:07)
--- NOTE | 2020-04-08 13:35 | Progress Note ---
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 Patient Obese. Patient presently sleeping on 3 1/2 litres and O2 saturation running 100%. Chest xray 04/08/20 reported Progressive airspace disease, worse on the left. ABG FIO2 35%. ABG pH 7.405 pH Units (7.350-7.450) 03/20/20 04:35 ABG pCO2 40.3 mm Hg 03/20/20 04:35 ABG pO2 68.3 mm Hg (80.0-90.0) L 03/20/20 04:35 ABG O2 Saturation 94.3 % (95.0-99.0) L 03/20/20 04:35 Patient afebrile and has leukocytosis Patient is on cefepime and vancomycin. Patient is on Apixaban. Patient is on Protonix for GI prophylaxis. Recommend incentive spirometry. Patient is on Brovanna/Budesonide aerosol treatments q 12 hours. In addition recommend albuterol/atrovent aerosol treatments q 6 hours PRN for shortness of breath. Robitussin DM PRN for cough. Continue physical therapy. Recommend chest PT. 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 (2) Cardiomyopathy Current Visit: Yes Status: Acute Plan to address problem: Management as per primary care and cardiology. (3) Elevated troponin Current Visit: Yes Status: Acute Plan to address problem: Management as per primary care and cardiology. (4) Hx of two vessel coronary artery bypass graft Current Visit: Yes Status: Acute Plan to address problem: Management as per cardiology. (5) NSTEMI (non-ST elevated myocardial infarction) Current Visit: Yes Status: Acute Plan to address problem: Management as per cardiology. (6) HTN (hypertension) Current Visit: Yes Status: Chronic Plan to address problem: Management as per primary care. (7) History of CVA (cerebrovascular accident) Current Visit: Yes Status: Chronic Plan to address problem: management as per primary care. (8) Smoker Current Visit: Yes Status: Chronic Plan to address problem: Counseled to stop smoking. (9) Pneumonia Current Visit: Yes Status: Acute Plan to address problem: Patient is on cefepime and vancomycin. 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 Patient Obese. Patient presently sleeping on 3 1/2 litres and O2 saturation running 100%. Chest xray 04/08/20 reported Progressive airspace disease, worse on the left. ABG FIO2 35%. ABG pH 7.405 pH Units (7.350-7.450) 03/20/20 04:35 ABG pCO2 40.3 mm Hg 03/20/20 04:35 ABG pO2 68.3 mm Hg (80.0-90.0) L 03/20/20 04:35 ABG O2 Saturation 94.3 % (95.0-99.0) L 03/20/20 04:35 Patient afebrile and has leukocytosis Patient is on cefepime and vancomycin. Patient is on Apixaban. Patient is on Protonix for GI prophylaxis. Recommend incentive spirometry. Patient is on Brovanna/Budesonide aerosol treatments q 12 hours. In addition recommend albuterol/atrovent aerosol treatments q 6 hours PRN for shortness of breath. Robitussin DM PRN for cough. Continue physical therapy. Recommend chest PT. Objective Vital Signs - 12hr 04/08/20 04/08/20 04/08/20 04:10 07:22 08:45 Temperature 97.9 F Pulse Rate 80 67 77 Respiratory 20 18 Rate Blood Pressure 105/76 121/79 Blood Pressure 109/77 [Left] O2 Sat by Pulse 93 99 100 Oximetry 04/08/20 04/08/20 04/08/20 10:00 11:19 11:20 Temperature Pulse Rate 71 70 Respiratory 22 Rate Blood Pressure 108/84 Blood Pressure [Left] O2 Sat by Pulse 100 Oximetry Constitutional: no acute distress, asleep Eyes: non-icteric ENT: oropharynx moist Neck: supple, no lymphadenopathy, no JVD Effort: mildly labored Ascultation: Left: rhonchi, Bilateral: diminished breath sounds Percussion: Bilateral: not dull Cardiovascular: regular rate and rhythm Gastrointestinal: normoactive bowel sounds, soft, non-tender, non-distended (protuberant) Integumentary: rash Extremities: cool, edema (right lower extremity), other (left BKA with clean dressing) Neurologic: normal mental status, non-focal exam, pupils equal and round, motor strength normal and Psychiatric: other (lethargic) CBC and BMP: 04/08/20 04:44 04/08/20 12:53 ABG, PT/INR, D-dimer: ABG ABG pH 7.395 pH Units (7.350-7.450) 04/05/20 15:58 ABG pCO2 43.5 mm Hg 04/05/20 15:58 ABG pO2 67.1 mm Hg (80.0-90.0) L 04/05/20 15:58 ABG O2 Saturation 93.4 % (95.0-99.0) L 04/05/20 15:58 PT/INR, D-dimer PT 30.9 Sec. (12.2-14.9) H 04/07/20 04:58 INR 2.89 (0.87-1.13) H 04/07/20 04:58 Abnormal lab findings: Abnormal Labs 03/18/20 03/18/20 03/18/20 18:28 18:28 20:56 WBC 12.3 H RBC Hgb Hct MCHC RDW Lymph % (Auto) 11.0 L [place] % (Auto) 9.8 H [place] # 1.2 H Seg Neutrophils % 78.4 H Seg Neuts % (Manual) Lymphocytes % (Manual) Nucleated RBC % Seg Neutrophils # 9.6 H Seg Neutrophils # Man Lymphocytes # (Manual) Monocytes # (Manual) Eosinophils # (Manual) PT INR Heparin Anti-Xa Level ABG pO2 ABG HCO3 ABG O2 Saturation ABG Base Excess ABG Hemoglobin Oxyhemoglobin Sodium 132 L Potassium Chloride 91.9 L Carbon Dioxide 20 L BUN Creatinine 1.4 H Glucose 406 H POC Glucose Hemoglobin A1c Calcium Ferritin AST ALT Alkaline Phosphatase Total Creatine Kinase 2727 H 2492 H CK-MB (CK-2) 135.9 H 107.2 H CK-MB (CK-2) Rel Index 4.3 H Troponin T 5.110 H* 3.960 H* D Total Protein Albumin Triglycerides 188 H LDL Cholesterol Direct 141 H 03/18/20 03/19/20 03/19/20 22:21 01:57 08:08 WBC RBC Hgb Hct MCHC RDW Lymph % (Auto) [place] % (Auto) [place] # Seg Neutrophils % Seg Neuts % (Manual) Lymphocytes % (Manual) Nucleated RBC % Seg Neutrophils # Seg Neutrophils # Man Lymphocytes # (Manual) Monocytes # (Manual) Eosinophils # (Manual) PT INR Heparin Anti-Xa Level ABG pO2 ABG HCO3 ABG O2 Saturation ABG Base Excess ABG Hemoglobin Oxyhemoglobin Sodium Potassium Chloride Carbon Dioxide BUN Creatinine Glucose POC Glucose 317 H Hemoglobin A1c 11.0 H Calcium Ferritin AST ALT Alkaline Phosphatase Total Creatine Kinase 7255 H CK-MB (CK-2) 79.3 H CK-MB (CK-2) Rel Index Troponin T 5.540 H* D Total Protein Albumin Triglycerides LDL Cholesterol Direct 03/19/20 03/19/20 03/19/20 08:08 08:08 08:08 WBC 13.3 H RBC Hgb Hct MCHC RDW Lymph % (Auto) 10.7 L [place] % (Auto) 8.5 H [place] # 1.1 H Seg Neutrophils % 80.0 H Seg Neuts % (Manual) Lymphocytes % (Manual) Nucleated RBC % Seg Neutrophils # 10.6 H Seg Neutrophils # Man Lymphocytes # (Manual) Monocytes # (Manual) Eosinophils # (Manual) PT INR Heparin Anti-Xa Level 0.10 L ABG pO2 ABG HCO3 ABG O2 Saturation ABG Base Excess ABG Hemoglobin Oxyhemoglobin Sodium 133 L Potassium 5.1 H Chloride Carbon Dioxide 17 L BUN 23 H Creatinine Glucose 313 H POC Glucose Hemoglobin A1c Calcium Ferritin AST ALT Alkaline Phosphatase Total Creatine Kinase CK-MB (CK-2) CK-MB (CK-2) Rel Index Troponin T Total Protein Albumin Triglycerides LDL Cholesterol Direct 03/19/20 03/19/20 03/19/20 15:40 18:23 21:32 WBC RBC Hgb Hct MCHC RDW Lymph % (Auto) [place] % (Auto) [place] # Seg Neutrophils % Seg Neuts % (Manual) Lymphocytes % (Manual) Nucleated RBC % Seg Neutrophils # Seg Neutrophils # Man Lymphocytes # (Manual) Monocytes # (Manual) Eosinophils # (Manual) PT INR Heparin Anti-Xa Level < 0.10 L ABG pO2 ABG HCO3 18.3 L ABG O2 Saturation ABG Base Excess -5.4 L ABG Hemoglobin 12.2 L Oxyhemoglobin 94.6 L Sodium Potassium Chloride Carbon Dioxide BUN Creatinine Glucose POC Glucose 348 H Hemoglobin A1c Calcium Ferritin AST ALT Alkaline Phosphatase Total Creatine Kinase CK-MB (CK-2) CK-MB (CK-2) Rel Index Troponin T Total Protein Albumin Triglycerides LDL Cholesterol Direct 03/20/20 03/20/20 03/20/20 04:35 05:12 05:12 WBC 11.1 H RBC 3.63 L Hgb 11.0 L Hct 32.7 L D MCHC RDW Lymph % (Auto) [place] % (Auto) 8.1 H [place] # 0.9 H Seg Neutrophils % 75.8 H Seg Neuts % (Manual) Lymphocytes % (Manual) Nucleated RBC % Seg Neutrophils # 8.4 H Seg Neutrophils # Man Lymphocytes # (Manual) Monocytes # (Manual) Eosinophils # (Manual) PT INR Heparin Anti-Xa Level 0.28 L ABG pO2 68.3 L ABG HCO3 ABG O2 Saturation 94.3 L ABG Base Excess ABG Hemoglobin 7.1 L Oxyhemoglobin 92.3 L Sodium Potassium Chloride Carbon Dioxide BUN Creatinine Glucose POC Glucose Hemoglobin A1c Calcium Ferritin AST ALT Alkaline Phosphatase Total Creatine Kinase CK-MB (CK-2) CK-MB (CK-2) Rel Index Troponin T Total Protein Albumin Triglycerides LDL Cholesterol Direct 03/20/20 03/20/20 03/20/20 05:12 07:49 12:15 WBC RBC Hgb Hct MCHC RDW Lymph % (Auto) [place] % (Auto) [place] # Seg Neutrophils % Seg Neuts % (Manual) Lymphocytes % (Manual) Nucleated RBC % Seg Neutrophils # Seg Neutrophils # Man Lymphocytes # (Manual) Monocytes # (Manual) Eosinophils # (Manual) PT INR Heparin Anti-Xa Level ABG pO2 ABG HCO3 ABG O2 Saturation ABG Base Excess ABG Hemoglobin Oxyhemoglobin Sodium 134 L Potassium Chloride Carbon Dioxide 21 L BUN 23 H Creatinine Glucose 275 H POC Glucose 294 H 357 H Hemoglobin A1c Calcium Ferritin AST ALT Alkaline Phosphatase Total Creatine Kinase CK-MB (CK-2) CK-MB (CK-2) Rel Index Troponin T 3.200 H* D Total Protein Albumin Triglycerides LDL Cholesterol Direct 03/20/20 03/20/20 03/21/20 17:16 22:08 04:44 WBC RBC Hgb Hct MCHC RDW Lymph % (Auto) [place] % (Auto) [place] # Seg Neutrophils % Seg Neuts % (Manual) Lymphocytes % (Manual) Nucleated RBC % Seg Neutrophils # Seg Neutrophils # Man Lymphocytes # (Manual) Monocytes # (Manual) Eosinophils # (Manual) PT INR Heparin Anti-Xa Level ABG pO2 ABG HCO3 ABG O2 Saturation ABG Base Excess ABG Hemoglobin Oxyhemoglobin Sodium 136 L Potassium Chloride Carbon Dioxide 18 L BUN 26 H Creatinine Glucose 266 H POC Glucose 327 H 292 H Hemoglobin A1c Calcium 8.1 L Ferritin AST ALT Alkaline Phosphatase Total Creatine Kinase CK-MB (CK-2) CK-MB (CK-2) Rel Index Troponin T Total Protein Albumin Triglycerides LDL Cholesterol Direct 03/21/20 03/21/20 03/21/20 07:50 12:25 15:53 WBC RBC Hgb Hct MCHC RDW Lymph % (Auto) [place] % (Auto) [place] # Seg Neutrophils % Seg Neuts % (Manual) Lymphocytes % (Manual) Nucleated RBC % Seg Neutrophils # Seg Neutrophils # Man Lymphocytes # (Manual) Monocytes # (Manual) Eosinophils # (Manual) PT INR Heparin Anti-Xa Level ABG pO2 ABG HCO3 ABG O2 Saturation ABG Base Excess ABG Hemoglobin Oxyhemoglobin Sodium Potassium Chloride Carbon Dioxide BUN Creatinine Glucose POC Glucose 271 H 314 H 436 H Hemoglobin A1c Calcium Ferritin AST ALT Alkaline Phosphatase Total Creatine Kinase CK-MB (CK-2) CK-MB (CK-2) Rel Index Troponin T Total Protein Albumin Triglycerides LDL Cholesterol Direct 03/21/20 03/21/20 03/22/20 17:44 21:55 04:33 WBC RBC Hgb 10.0 L Hct 29.4 L MCHC RDW Lymph % (Auto) [place] % (Auto) [place] # Seg Neutrophils % Seg Neuts % (Manual) Lymphocytes % (Manual) Nucleated RBC % Seg Neutrophils # Seg Neutrophils # Man Lymphocytes # (Manual) Monocytes # (Manual) Eosinophils # (Manual) PT INR Heparin Anti-Xa Level ABG pO2 ABG HCO3 ABG O2 Saturation ABG Base Excess ABG Hemoglobin Oxyhemoglobin Sodium Potassium Chloride Carbon Dioxide BUN Creatinine Glucose POC Glucose 362 H 329 H Hemoglobin A1c Calcium Ferritin AST ALT Alkaline Phosphatase Total Creatine Kinase CK-MB (CK-2) CK-MB (CK-2) Rel Index Troponin T Total Protein Albumin Triglycerides LDL Cholesterol Direct 03/22/20 03/22/20 03/22/20 08:57 14:12 19:57 WBC RBC Hgb Hct MCHC RDW Lymph % (Auto) [place] % (Auto) [place] # Seg Neutrophils % Seg Neuts % (Manual) Lymphocytes % (Manual) Nucleated RBC % Seg Neutrophils # Seg Neutrophils # Man Lymphocytes # (Manual) Monocytes # (Manual) Eosinophils # (Manual) PT INR Heparin Anti-Xa Level ABG pO2 ABG HCO3 ABG O2 Saturation ABG Base Excess ABG Hemoglobin Oxyhemoglobin Sodium Potassium Chloride Carbon Dioxide BUN Creatinine Glucose POC Glucose 284 H 319 H 356 H Hemoglobin A1c Calcium Ferritin AST ALT Alkaline Phosphatase Total Creatine Kinase CK-MB (CK-2) CK-MB (CK-2) Rel Index Troponin T Total Protein Albumin Triglycerides LDL Cholesterol Direct 03/22/20 03/23/20 03/23/20 21:44 08:18 12:46 WBC RBC Hgb Hct MCHC RDW Lymph % (Auto) [place] % (Auto) [place] # Seg Neutrophils % Seg Neuts % (Manual) Lymphocytes % (Manual) Nucleated RBC % Seg Neutrophils # Seg Neutrophils # Man Lymphocytes # (Manual) Monocytes # (Manual) Eosinophils # (Manual) PT INR Heparin Anti-Xa Level ABG pO2 ABG HCO3 ABG O2 Saturation ABG Base Excess ABG Hemoglobin Oxyhemoglobin Sodium Potassium Chloride Carbon Dioxide BUN Creatinine Glucose POC Glucose 336 H 215 H 262 H Hemoglobin A1c Calcium Ferritin AST ALT Alkaline Phosphatase Total Creatine Kinase CK-MB (CK-2) CK-MB (CK-2) Rel Index Troponin T Total Protein Albumin Triglycerides LDL Cholesterol Direct 03/23/20 03/23/20 03/24/20 15:56 22:05 02:35 WBC RBC Hgb 9.0 L Hct 25.8 L MCHC RDW Lymph % (Auto) [place] % (Auto) [place] # Seg Neutrophils % Seg Neuts % (Manual) Lymphocytes % (Manual) Nucleated RBC % Seg Neutrophils # Seg Neutrophils # Man Lymphocytes # (Manual) Monocytes # (Manual) Eosinophils # (Manual) PT INR Heparin Anti-Xa Level ABG pO2 ABG HCO3 ABG O2 Saturation ABG Base Excess ABG Hemoglobin Oxyhemoglobin Sodium Potassium Chloride Carbon Dioxide BUN Creatinine Glucose POC Glucose 246 H 322 H Hemoglobin A1c Calcium Ferritin AST ALT Alkaline Phosphatase Total Creatine Kinase CK-MB (CK-2) CK-MB (CK-2) Rel Index Troponin T Total Protein Albumin Triglycerides LDL Cholesterol Direct 03/24/20 03/24/20 03/24/20 07:38 11:45 16:02 WBC RBC Hgb Hct MCHC RDW Lymph % (Auto) [place] % (Auto) [place] # Seg Neutrophils % Seg Neuts % (Manual) Lymphocytes % (Manual) Nucleated RBC % Seg Neutrophils # Seg Neutrophils # Man Lymphocytes # (Manual) Monocytes # (Manual) Eosinophils # (Manual) PT INR Heparin Anti-Xa Level ABG pO2 ABG HCO3 ABG O2 Saturation ABG Base Excess ABG Hemoglobin Oxyhemoglobin Sodium Potassium Chloride Carbon Dioxide BUN Creatinine Glucose POC Glucose 289 H 257 H 150 H Hemoglobin A1c Calcium Ferritin AST ALT Alkaline Phosphatase Total Creatine Kinase CK-MB (CK-2) CK-MB (CK-2) Rel Index Troponin T Total Protein Albumin Triglycerides LDL Cholesterol Direct 03/24/20 03/25/20 03/25/20 21:24 04:06 07:39 WBC RBC Hgb Hct MCHC RDW Lymph % (Auto) [place] % (Auto) [place] # Seg Neutrophils % Seg Neuts % (Manual) Lymphocytes % (Manual) Nucleated RBC % Seg Neutrophils # Seg Neutrophils # Man Lymphocytes # (Manual) Monocytes # (Manual) Eosinophils # (Manual) PT INR Heparin Anti-Xa Level 0.10 L ABG pO2 ABG HCO3 ABG O2 Saturation ABG Base Excess ABG Hemoglobin Oxyhemoglobin Sodium Potassium Chloride Carbon Dioxide BUN Creatinine Glucose POC Glucose 228 H 332 H Hemoglobin A1c Calcium Ferritin AST ALT Alkaline Phosphatase Total Creatine Kinase CK-MB (CK-2) CK-MB (CK-2) Rel Index Troponin T Total Protein Albumin Triglycerides LDL Cholesterol Direct 03/25/20 03/25/20 03/25/20 08:13 09:30 11:59 WBC 13.1 H RBC 2.82 L Hgb 8.5 L Hct 26.1 L MCHC RDW Lymph % (Auto) [place] % (Auto) [place] # Seg Neutrophils % Seg Neuts % (Manual) Lymphocytes % (Manual) Nucleated RBC % Seg Neutrophils # Seg Neutrophils # Man Lymphocytes # (Manual) Monocytes # (Manual) Eosinophils # (Manual) PT INR Heparin Anti-Xa Level ABG pO2 ABG HCO3 ABG O2 Saturation ABG Base Excess ABG Hemoglobin Oxyhemoglobin Sodium 131 L Potassium 5.3 H Chloride Carbon Dioxide 20 L BUN 39 H Creatinine 1.4 H Glucose 313 H POC Glucose 273 H Hemoglobin A1c Calcium 8.1 L Ferritin AST ALT Alkaline Phosphatase Total Creatine Kinase CK-MB (CK-2) CK-MB (CK-2) Rel Index Troponin T Total Protein Albumin Triglycerides LDL Cholesterol Direct 03/25/20 03/25/20 03/25/20 13:54 15:58 18:21 WBC RBC Hgb Hct MCHC RDW Lymph % (Auto) [place] % (Auto) [place] # Seg Neutrophils % Seg Neuts % (Manual) Lymphocytes % (Manual) Nucleated RBC % Seg Neutrophils # Seg Neutrophils # Man Lymphocytes # (Manual) Monocytes # (Manual) Eosinophils # (Manual) PT INR Heparin Anti-Xa Level ABG pO2 ABG HCO3 ABG O2 Saturation ABG Base Excess ABG Hemoglobin Oxyhemoglobin Sodium Potassium Chloride Carbon Dioxide BUN Creatinine Glucose POC Glucose 246 H 235 H 185 H Hemoglobin A1c Calcium Ferritin AST ALT Alkaline Phosphatase Total Creatine Kinase CK-MB (CK-2) CK-MB (CK-2) Rel Index Troponin T Total Protein Albumin Triglycerides LDL Cholesterol Direct 03/25/20 03/26/20 03/26/20 20:45 05:15 06:59 WBC 17.4 H 15.6 H RBC 3.05 L 3.05 L Hgb 9.1 L 9.2 L Hct 28.2 L 27.9 L MCHC RDW Lymph % (Auto) 8.9 L 8.9 L [place] % (Auto) [place] # 1.0 H Seg Neutrophils % 84.4 H 84.8 H Seg Neuts % (Manual) Lymphocytes % (Manual) Nucleated RBC % Seg Neutrophils # 14.7 H 13.2 H Seg Neutrophils # Man Lymphocytes # (Manual) Monocytes # (Manual) Eosinophils # (Manual) PT INR Heparin Anti-Xa Level ABG pO2 ABG HCO3 ABG O2 Saturation ABG Base Excess ABG Hemoglobin Oxyhemoglobin Sodium Potassium Chloride Carbon Dioxide BUN Creatinine Glucose POC Glucose 178 H Hemoglobin A1c Calcium Ferritin AST ALT Alkaline Phosphatase Total Creatine Kinase CK-MB (CK-2) CK-MB (CK-2) Rel Index Troponin T Total Protein Albumin Triglycerides LDL Cholesterol Direct 03/26/20 03/26/20 03/26/20 06:59 07:43 11:56 WBC RBC Hgb Hct MCHC RDW Lymph % (Auto) [place] % (Auto) [place] # Seg Neutrophils % Seg Neuts % (Manual) Lymphocytes % (Manual) Nucleated RBC % Seg Neutrophils # Seg Neutrophils # Man Lymphocytes # (Manual) Monocytes # (Manual) Eosinophils # (Manual) PT INR Heparin Anti-Xa Level ABG pO2 ABG HCO3 ABG O2 Saturation ABG Base Excess ABG Hemoglobin Oxyhemoglobin Sodium 131 L Potassium 5.8 H Chloride Carbon Dioxide 16 L BUN 42 H Creatinine 1.4 H Glucose 163 H POC Glucose 170 H 198 H Hemoglobin A1c Calcium 8.0 L Ferritin AST ALT Alkaline Phosphatase Total Creatine Kinase CK-MB (CK-2) CK-MB (CK-2) Rel Index Troponin T Total Protein Albumin Triglycerides LDL Cholesterol Direct 03/26/20 03/26/20 03/26/20 13:58 16:16 21:00 WBC RBC Hgb Hct MCHC RDW Lymph % (Auto) [place] % (Auto) [place] # Seg Neutrophils % Seg Neuts % (Manual) Lymphocytes % (Manual) Nucleated RBC % Seg Neutrophils # Seg Neutrophils # Man Lymphocytes # (Manual) Monocytes # (Manual) Eosinophils # (Manual) PT INR Heparin Anti-Xa Level ABG pO2 ABG HCO3 ABG O2 Saturation ABG Base Excess ABG Hemoglobin Oxyhemoglobin Sodium 128 L Potassium 6.0 H Chloride Carbon Dioxide 15 L BUN 45 H Creatinine 1.4 H Glucose 190 H POC Glucose 184 H 192 H Hemoglobin A1c Calcium 8.2 L Ferritin AST ALT Alkaline Phosphatase Total Creatine Kinase CK-MB (CK-2) CK-MB (CK-2) Rel Index Troponin T Total Protein Albumin Triglycerides LDL Cholesterol Direct 03/27/20 03/27/20 03/27/20 08:32 11:51 14:39 WBC 22.9 H RBC 2.68 L Hgb 7.9 L Hct 24.7 L MCHC RDW Lymph % (Auto) [place] % (Auto) [place] # Seg Neutrophils % Seg Neuts % (Manual) Lymphocytes % (Manual) Nucleated RBC % Seg Neutrophils # Seg Neutrophils # Man Lymphocytes # (Manual) Monocytes # (Manual) Eosinophils # (Manual) PT INR Heparin Anti-Xa Level ABG pO2 ABG HCO3 ABG O2 Saturation ABG Base Excess ABG Hemoglobin Oxyhemoglobin Sodium Potassium Chloride Carbon Dioxide BUN Creatinine Glucose POC Glucose 233 H 252 H Hemoglobin A1c Calcium Ferritin AST ALT Alkaline Phosphatase Total Creatine Kinase CK-MB (CK-2) CK-MB (CK-2) Rel Index Troponin T Total Protein Albumin Triglycerides LDL Cholesterol Direct 03/27/20 03/27/20 03/27/20 14:39 15:19 21:35 WBC RBC Hgb Hct MCHC RDW Lymph % (Auto) [place] % (Auto) [place] # Seg Neutrophils % Seg Neuts % (Manual) Lymphocytes % (Manual) Nucleated RBC % Seg Neutrophils # Seg Neutrophils # Man Lymphocytes # (Manual) Monocytes # (Manual) Eosinophils # (Manual) PT INR Heparin Anti-Xa Level ABG pO2 ABG HCO3 ABG O2 Saturation ABG Base Excess ABG Hemoglobin Oxyhemoglobin Sodium 133 L Potassium 5.5 H Chloride Carbon Dioxide 16 L BUN 46 H Creatinine 1.4 H Glucose 225 H POC Glucose 239 H 202 H Hemoglobin A1c Calcium 8.2 L Ferritin AST ALT Alkaline Phosphatase Total Creatine Kinase CK-MB (CK-2) CK-MB (CK-2) Rel Index Troponin T Total Protein Albumin Triglycerides LDL Cholesterol Direct 03/28/20 03/28/20 03/28/20 07:39 07:39 08:36 WBC 22.4 H RBC 2.71 L Hgb 7.9 L Hct 24.5 L MCHC RDW Lymph % (Auto) [place] % (Auto) [place] # Seg Neutrophils % Seg Neuts % (Manual) 88.0 H Lymphocytes % (Manual) 5.0 L Nucleated RBC % Seg Neutrophils # Seg Neutrophils # Man 19.7 H Lymphocytes # (Manual) 1.1 L Monocytes # (Manual) 1.6 H Eosinophils # (Manual) PT INR Heparin Anti-Xa Level ABG pO2 ABG HCO3 ABG O2 Saturation ABG Base Excess ABG Hemoglobin Oxyhemoglobin Sodium 134 L Potassium Chloride Carbon Dioxide 19 L BUN 47 H Creatinine Glucose 240 H POC Glucose 253 H Hemoglobin A1c Calcium 7.8 L Ferritin AST ALT Alkaline Phosphatase Total Creatine Kinase CK-MB (CK-2) CK-MB (CK-2) Rel Index Troponin T Total Protein Albumin Triglycerides LDL Cholesterol Direct 03/28/20 03/28/20 03/28/20 11:54 17:08 21:17 WBC RBC Hgb Hct MCHC RDW Lymph % (Auto) [place] % (Auto) [place] # Seg Neutrophils % Seg Neuts % (Manual) Lymphocytes % (Manual) Nucleated RBC % Seg Neutrophils # Seg Neutrophils # Man Lymphocytes # (Manual) Monocytes # (Manual) Eosinophils # (Manual) PT INR Heparin Anti-Xa Level ABG pO2 ABG HCO3 ABG O2 Saturation ABG Base Excess ABG Hemoglobin Oxyhemoglobin Sodium Potassium Chloride Carbon Dioxide BUN Creatinine Glucose POC Glucose 306 H 178 H 186 H Hemoglobin A1c Calcium Ferritin AST ALT Alkaline Phosphatase Total Creatine Kinase CK-MB (CK-2) CK-MB (CK-2) Rel Index Troponin T Total Protein Albumin Triglycerides LDL Cholesterol Direct 03/29/20 03/29/20 03/29/20 08:32 12:04 14:19 WBC 21.5 H RBC 2.82 L Hgb 8.4 L Hct 26.1 L MCHC RDW Lymph % (Auto) [place] % (Auto) [place] # Seg Neutrophils % Seg Neuts % (Manual) 85.0 H Lymphocytes % (Manual) 11.0 L Nucleated RBC % 3.0 H Seg Neutrophils # Seg Neutrophils # Man 18.3 H Lymphocytes # (Manual) Monocytes # (Manual) Eosinophils # (Manual) 0.6 H PT INR Heparin Anti-Xa Level ABG pO2 ABG HCO3 ABG O2 Saturation ABG Base Excess ABG Hemoglobin Oxyhemoglobin Sodium Potassium Chloride Carbon Dioxide BUN Creatinine Glucose POC Glucose 110 H 263 H Hemoglobin A1c Calcium Ferritin AST ALT Alkaline Phosphatase Total Creatine Kinase CK-MB (CK-2) CK-MB (CK-2) Rel Index Troponin T Total Protein Albumin Triglycerides LDL Cholesterol Direct 03/29/20 03/29/20 03/30/20 16:17 22:57 11:00 WBC RBC Hgb Hct MCHC RDW Lymph % (Auto) [place] % (Auto) [place] # Seg Neutrophils % Seg Neuts % (Manual) Lymphocytes % (Manual) Nucleated RBC % Seg Neutrophils # Seg Neutrophils # Man Lymphocytes # (Manual) Monocytes # (Manual) Eosinophils # (Manual) PT INR Heparin Anti-Xa Level ABG pO2 ABG HCO3 ABG O2 Saturation ABG Base Excess ABG Hemoglobin Oxyhemoglobin Sodium Potassium Chloride Carbon Dioxide BUN Creatinine Glucose POC Glucose 109 H 194 H 129 H Hemoglobin A1c Calcium Ferritin AST ALT Alkaline Phosphatase Total Creatine Kinase CK-MB (CK-2) CK-MB (CK-2) Rel Index Troponin T Total Protein Albumin Triglycerides LDL Cholesterol Direct 03/30/20 03/30/20 03/31/20 15:16 21:54 04:27 WBC 15.8 H RBC 2.62 L Hgb 7.7 L Hct 24.1 L MCHC RDW Lymph % (Auto) 9.4 L [place] % (Auto) [place] # Seg Neutrophils % 84.4 H Seg Neuts % (Manual) Lymphocytes % (Manual) Nucleated RBC % Seg Neutrophils # 13.3 H Seg Neutrophils # Man Lymphocytes # (Manual) Monocytes # (Manual) Eosinophils # (Manual) PT INR Heparin Anti-Xa Level ABG pO2 ABG HCO3 ABG O2 Saturation ABG Base Excess ABG Hemoglobin Oxyhemoglobin Sodium Potassium Chloride Carbon Dioxide BUN Creatinine Glucose POC Glucose 115 H 166 H Hemoglobin A1c Calcium Ferritin AST ALT Alkaline Phosphatase Total Creatine Kinase CK-MB (CK-2) CK-MB (CK-2) Rel Index Troponin T Total Protein Albumin Triglycerides LDL Cholesterol Direct 03/31/20 03/31/20 03/31/20 04:27 07:37 11:46 WBC RBC Hgb Hct MCHC RDW Lymph % (Auto) [place] % (Auto) [place] # Seg Neutrophils % Seg Neuts % (Manual) Lymphocytes % (Manual) Nucleated RBC % Seg Neutrophils # Seg Neutrophils # Man Lymphocytes # (Manual) Monocytes # (Manual) Eosinophils # (Manual) PT INR Heparin Anti-Xa Level ABG pO2 ABG HCO3 ABG O2 Saturation ABG Base Excess ABG Hemoglobin Oxyhemoglobin Sodium 133 L Potassium Chloride 96.6 L Carbon Dioxide 18 L BUN 75 H Creatinine 2.5 H D Glucose 129 H POC Glucose 156 H 224 H Hemoglobin A1c Calcium 8.0 L Ferritin AST ALT Alkaline Phosphatase Total Creatine Kinase CK-MB (CK-2) CK-MB (CK-2) Rel Index Troponin T Total Protein Albumin Triglycerides LDL Cholesterol Direct 04/01/20 04/01/20 04/01/20 08:34 10:52 10:52 WBC 12.9 H RBC 2.75 L Hgb 8.2 L Hct 24.8 L MCHC RDW Lymph % (Auto) 10.6 L [place] % (Auto) [place] # Seg Neutrophils % 83.7 H Seg Neuts % (Manual) Lymphocytes % (Manual) Nucleated RBC % Seg Neutrophils # 10.8 H Seg Neutrophils # Man Lymphocytes # (Manual) Monocytes # (Manual) Eosinophils # (Manual) PT INR Heparin Anti-Xa Level ABG pO2 ABG HCO3 ABG O2 Saturation ABG Base Excess ABG Hemoglobin Oxyhemoglobin Sodium 131 L Potassium Chloride 96.1 L Carbon Dioxide 17 L BUN 77 H Creatinine 2.3 H Glucose 205 H POC Glucose 110 H Hemoglobin A1c Calcium 7.9 L Ferritin AST ALT Alkaline Phosphatase Total Creatine Kinase CK-MB (CK-2) CK-MB (CK-2) Rel Index Troponin T Total Protein Albumin Triglycerides LDL Cholesterol Direct 04/01/20 04/01/20 04/01/20 12:15 17:22 20:47 WBC RBC Hgb Hct MCHC RDW Lymph % (Auto) [place] % (Auto) [place] # Seg Neutrophils % Seg Neuts % (Manual) Lymphocytes % (Manual) Nucleated RBC % Seg Neutrophils # Seg Neutrophils # Man Lymphocytes # (Manual) Monocytes # (Manual) Eosinophils # (Manual) PT INR Heparin Anti-Xa Level ABG pO2 ABG HCO3 ABG O2 Saturation ABG Base Excess ABG Hemoglobin Oxyhemoglobin Sodium Potassium Chloride Carbon Dioxide BUN Creatinine Glucose POC Glucose 201 H 219 H 156 H Hemoglobin A1c Calcium Ferritin AST ALT Alkaline Phosphatase Total Creatine Kinase CK-MB (CK-2) CK-MB (CK-2) Rel Index Troponin T Total Protein Albumin Triglycerides LDL Cholesterol Direct 04/02/20 04/02/20 04/02/20 05:44 05:44 11:32 WBC 15.8 H RBC 2.81 L Hgb 8.2 L Hct 25.7 L MCHC RDW Lymph % (Auto) [place] % (Auto) [place] # 0.9 H Seg Neutrophils % 77.7 H Seg Neuts % (Manual) Lymphocytes % (Manual) Nucleated RBC % Seg Neutrophils # 12.3 H Seg Neutrophils # Man Lymphocytes # (Manual) Monocytes # (Manual) Eosinophils # (Manual) PT INR Heparin Anti-Xa Level ABG pO2 ABG HCO3 ABG O2 Saturation ABG Base Excess ABG Hemoglobin Oxyhemoglobin Sodium 134 L Potassium Chloride Carbon Dioxide 19 L BUN 76 H Creatinine 2.0 H Glucose POC Glucose 116 H Hemoglobin A1c Calcium 8.0 L Ferritin AST 291 H ALT 169 H Alkaline Phosphatase 256 H Total Creatine Kinase CK-MB (CK-2) CK-MB (CK-2) Rel Index Troponin T Total Protein 6.1 L Albumin 2.2 L Triglycerides LDL Cholesterol Direct 04/02/20 04/02/20 04/03/20 16:56 22:03 08:13 WBC RBC Hgb Hct MCHC RDW Lymph % (Auto) [place] % (Auto) [place] # Seg Neutrophils % Seg Neuts % (Manual) Lymphocytes % (Manual) Nucleated RBC % Seg Neutrophils # Seg Neutrophils # Man Lymphocytes # (Manual) Monocytes # (Manual) Eosinophils # (Manual) PT INR Heparin Anti-Xa Level ABG pO2 ABG HCO3 ABG O2 Saturation ABG Base Excess ABG Hemoglobin Oxyhemoglobin Sodium Potassium Chloride Carbon Dioxide BUN Creatinine Glucose POC Glucose 141 H 152 H 126 H Hemoglobin A1c Calcium Ferritin AST ALT Alkaline Phosphatase Total Creatine Kinase CK-MB (CK-2) CK-MB (CK-2) Rel Index Troponin T Total Protein Albumin Triglycerides LDL Cholesterol Direct 04/03/20 04/03/20 04/03/20 12:11 16:26 21:33 WBC RBC Hgb Hct MCHC RDW Lymph % (Auto) [place] % (Auto) [place] # Seg Neutrophils % Seg Neuts % (Manual) Lymphocytes % (Manual) Nucleated RBC % Seg Neutrophils # Seg Neutrophils # Man Lymphocytes # (Manual) Monocytes # (Manual) Eosinophils # (Manual) PT INR Heparin Anti-Xa Level ABG pO2 ABG HCO3 ABG O2 Saturation ABG Base Excess ABG Hemoglobin Oxyhemoglobin Sodium Potassium Chloride Carbon Dioxide BUN Creatinine Glucose POC Glucose 139 H 164 H 147 H Hemoglobin A1c Calcium Ferritin AST ALT Alkaline Phosphatase Total Creatine Kinase CK-MB (CK-2) CK-MB (CK-2) Rel Index Troponin T Total Protein Albumin Triglycerides LDL Cholesterol Direct 04/04/20 04/04/20 04/04/20 04:29 04:29 11:29 WBC 12.3 H RBC 2.88 L Hgb 8.4 L Hct 26.1 L MCHC RDW Lymph % (Auto) [place] % (Auto) [place] # Seg Neutrophils % 75.4 H Seg Neuts % (Manual) Lymphocytes % (Manual) Nucleated RBC % Seg Neutrophils # 9.3 H Seg Neutrophils # Man Lymphocytes # (Manual) Monocytes # (Manual) Eosinophils # (Manual) PT INR Heparin Anti-Xa Level ABG pO2 ABG HCO3 ABG O2 Saturation ABG Base Excess ABG Hemoglobin Oxyhemoglobin Sodium 136 L Potassium Chloride Carbon Dioxide 19 L BUN 71 H Creatinine 1.7 H Glucose POC Glucose 108 H Hemoglobin A1c Calcium 8.0 L Ferritin AST 673 H ALT 252 H Alkaline Phosphatase 311 H Total Creatine Kinase CK-MB (CK-2) CK-MB (CK-2) Rel Index Troponin T Total Protein Albumin 2.2 L Triglycerides LDL Cholesterol Direct 04/04/20 04/04/20 04/05/20 16:34 20:58 03:54 WBC 13.7 H RBC 3.03 L Hgb 8.7 L Hct 27.9 L MCHC 31 L RDW 15.5 H Lymph % (Auto) [place] % (Auto) [place] # Seg Neutrophils % 78.9 H Seg Neuts % (Manual) Lymphocytes % (Manual) Nucleated RBC % Seg Neutrophils # 10.8 H Seg Neutrophils # Man Lymphocytes # (Manual) Monocytes # (Manual) Eosinophils # (Manual) PT INR Heparin Anti-Xa Level ABG pO2 ABG HCO3 ABG O2 Saturation ABG Base Excess ABG Hemoglobin Oxyhemoglobin Sodium Potassium Chloride Carbon Dioxide BUN Creatinine Glucose POC Glucose 151 H 131 H Hemoglobin A1c Calcium Ferritin AST ALT Alkaline Phosphatase Total Creatine Kinase CK-MB (CK-2) CK-MB (CK-2) Rel Index Troponin T Total Protein Albumin Triglycerides LDL Cholesterol Direct 04/05/20 04/05/20 04/05/20 03:54 15:58 15:58 WBC RBC Hgb Hct MCHC RDW Lymph % (Auto) [place] % (Auto) [place] # Seg Neutrophils % Seg Neuts % (Manual) Lymphocytes % (Manual) Nucleated RBC % Seg Neutrophils # Seg Neutrophils # Man Lymphocytes # (Manual) Monocytes # (Manual) Eosinophils # (Manual) PT INR Heparin Anti-Xa Level ABG pO2 67.1 L ABG HCO3 26.1 H ABG O2 Saturation 93.4 L ABG Base Excess ABG Hemoglobin 9.0 L Oxyhemoglobin 91.6 L Sodium 136 L Potassium 5.5 H Chloride Carbon Dioxide 21 L BUN 79 H Creatinine 1.9 H Glucose 63 L POC Glucose 129 H Hemoglobin A1c Calcium 8.2 L Ferritin AST 696 H ALT 262 H Alkaline Phosphatase 325 H Total Creatine Kinase CK-MB (CK-2) CK-MB (CK-2) Rel Index Troponin T Total Protein Albumin 2.3 L Triglycerides LDL Cholesterol Direct 04/05/20 04/06/20 04/06/20 22:33 07:14 07:14 WBC RBC Hgb Hct MCHC RDW Lymph % (Auto) [place] % (Auto) [place] # Seg Neutrophils % Seg Neuts % (Manual) Lymphocytes % (Manual) Nucleated RBC % Seg Neutrophils # Seg Neutrophils # Man Lymphocytes # (Manual) Monocytes # (Manual) Eosinophils # (Manual) PT INR Heparin Anti-Xa Level ABG pO2 ABG HCO3 ABG O2 Saturation ABG Base Excess ABG Hemoglobin Oxyhemoglobin Sodium Potassium 5.6 H Chloride Carbon Dioxide BUN 83 H Creatinine 1.9 H Glucose 202 H POC Glucose 253 H Hemoglobin A1c Calcium Ferritin 444.2 H AST 469 H ALT 237 H Alkaline Phosphatase 332 H Total Creatine Kinase CK-MB (CK-2) CK-MB (CK-2) Rel Index Troponin T Total Protein Albumin 2.2 L Triglycerides LDL Cholesterol Direct 04/06/20 04/06/20 04/06/20 08:23 12:00 13:56 WBC RBC Hgb Hct MCHC RDW Lymph % (Auto) [place] % (Auto) [place] # Seg Neutrophils % Seg Neuts % (Manual) Lymphocytes % (Manual) Nucleated RBC % Seg Neutrophils # Seg Neutrophils # Man Lymphocytes # (Manual) Monocytes # (Manual) Eosinophils # (Manual) PT 27.0 H INR 2.44 H Heparin Anti-Xa Level ABG pO2 ABG HCO3 ABG O2 Saturation ABG Base Excess ABG Hemoglobin Oxyhemoglobin Sodium Potassium Chloride Carbon Dioxide BUN Creatinine Glucose POC Glucose 226 H 176 H Hemoglobin A1c Calcium Ferritin AST ALT Alkaline Phosphatase Total Creatine Kinase CK-MB (CK-2) CK-MB (CK-2) Rel Index Troponin T Total Protein Albumin Triglycerides LDL Cholesterol Direct 04/06/20 04/07/20 04/07/20 20:45 04:58 04:58 WBC RBC Hgb Hct MCHC RDW Lymph % (Auto) [place] % (Auto) [place] # Seg Neutrophils % Seg Neuts % (Manual) Lymphocytes % (Manual) Nucleated RBC % Seg Neutrophils # Seg Neutrophils # Man Lymphocytes # (Manual) Monocytes # (Manual) Eosinophils # (Manual) PT 30.9 H INR 2.89 H Heparin Anti-Xa Level ABG pO2 ABG HCO3 ABG O2 Saturation ABG Base Excess ABG Hemoglobin Oxyhemoglobin Sodium Potassium 6.0 H Chloride Carbon Dioxide BUN 85 H Creatinine 2.1 H Glucose 177 H POC Glucose 139 H Hemoglobin A1c Calcium Ferritin AST 351 H ALT 215 H Alkaline Phosphatase 332 H Total Creatine Kinase CK-MB (CK-2) CK-MB (CK-2) Rel Index Troponin T Total Protein Albumin 2.7 L Triglycerides LDL Cholesterol Direct 04/07/20 04/07/20 04/08/20 07:53 11:51 04:44 WBC 11.7 H RBC 3.07 L Hgb 9.1 L Hct 28.9 L MCHC RDW 16.8 H Lymph % (Auto) 12.4 L [place] % (Auto) [place] # Seg Neutrophils % 83.3 H Seg Neuts % (Manual) Lymphocytes % (Manual) Nucleated RBC % Seg Neutrophils # 9.7 H Seg Neutrophils # Man Lymphocytes # (Manual) Monocytes # (Manual) Eosinophils # (Manual) PT INR Heparin Anti-Xa Level ABG pO2 ABG HCO3 ABG O2 Saturation ABG Base Excess ABG Hemoglobin Oxyhemoglobin Sodium Potassium Chloride Carbon Dioxide BUN Creatinine Glucose POC Glucose 167 H 120 H Hemoglobin A1c Calcium Ferritin AST ALT Alkaline Phosphatase Total Creatine Kinase CK-MB (CK-2) CK-MB (CK-2) Rel Index Troponin T Total Protein Albumin Triglycerides LDL Cholesterol Direct 04/08/20 04/08/20 04/08/20 04:44 07:19 08:43 WBC RBC Hgb Hct MCHC RDW Lymph % (Auto) [place] % (Auto) [place] # Seg Neutrophils % Seg Neuts % (Manual) Lymphocytes % (Manual) Nucleated RBC % Seg Neutrophils # Seg Neutrophils # Man Lymphocytes # (Manual) Monocytes # (Manual) Eosinophils # (Manual) PT INR Heparin Anti-Xa Level ABG pO2 ABG HCO3 ABG O2 Saturation ABG Base Excess ABG Hemoglobin Oxyhemoglobin Sodium Potassium 6.3 H* Chloride Carbon Dioxide 21 L BUN 89 H Creatinine 1.9 H Glucose 63 L POC Glucose 65 L 168 H Hemoglobin A1c Calcium Ferritin AST 370 H ALT 211 H Alkaline Phosphatase 320 H Total Creatine Kinase CK-MB (CK-2) CK-MB (CK-2) Rel Index Troponin T Total Protein Albumin 2.6 L Triglycerides LDL Cholesterol Direct Chest x-ray: report reviewed, image reviewed Prior PFT's, U/S of legs: report reviewed Additional Studies: CHEST 1 VIEW 04/08/20 INDICATION / CLINICAL INFORMATION: SOB. COMPARISON: 04/05/2020 FINDINGS: SUPPORT DEVICES: None. HEART / MEDIASTINUM: Stable. LUNGS / PLEURA: Increasing opacification of the left lung with near complete whiteout. Right lung appears grossly stable with mild haziness over the lower lung and few scattered mild patchy opacities. Small-moderate left-sided pleural effusion. No pneumothorax. ADDITIONAL FINDINGS: No significant additional findings. IMPRESSION: 1. Progressive airspace disease, worse on the left. DUPLEX DOPPLER LOWER EXTREMITY ARTERIAL, LEFT 04/08/20 INDICATION: Pain and left leg. History of below-knee amputation. TECHNIQUE: Arterial duplex examination of the left lower extremity was performed using B-mode, color flow and spectral Doppler assessment. FINDINGS: LEFT: Common Femoral Artery: PSV 47 cm/sec. Triphasic waveform. Proximal SFA: PSV 82 cm/sec. Biphasic waveform. Mid SFA: PSV 73 cm/sec. Biphasic waveform. Distal SFA: PSV 86 cm/sec. Biphasic waveform. Popliteal artery: PSV 44 cm/sec. Biphasic waveform. IMPRESSION: 1. No significant left lower extremity peripheral artery disease. Allied health notes reviewed: nursing
[2020-04-08 14:16] LABS: Calcium 8.6 mg/dL (8.4-10.2)
[2020-04-08] MEDS: CEFEPIME/NS 1 GM/100 ML 1 GM/100 ML BAG IV SCH ×2 (15:18→22:08)
[2020-04-08] MEDS: SODIUM CHLORIDE 0.9% 1000 ML 1,000 ML IV SCH (16:20)
--- NOTE | 2020-04-08 16:49 | Gastroenterology Progress Note ---
Assessment and Plan - Patient Problems (1) Abnormal liver enzymes Current Visit: Yes Status: Acute Plan to address problem: - Gallstones present, but agree with surgery no signs of cholecystitis. More likely from sepsis/recent gangrene/multiple surgical procedures. - Hep B and C serology negative. - AST and ALT trended down and stable. - INR remains elevated. - No mass seen on recent imaging studies. - monitor LFTs and INR. - supportive care - optimize hemodynamic status per primary team. - will sign off at this time. Subjective Date of service: 04/08/20 Principal diagnosis: Acute limb ischemia; STARR; COPD; Ac hypoxemic resp failure; DM II; NSTEMI Interval history: Code met called this morning. CT head showing subacute infarct. No abdominal p ain. Patient somewhat somnlent. Objective - Constitutional Vitals: Temp Pulse Resp BP Pulse Ox 97.7 F 68 20 104/77 100 04/08/20 15:01 04/08/20 15:04 04/08/20 15:01 04/08/20 15:01 04/08/20 15:04 General appearance: no acute distress - EENT Eyes: EOM intact ENT: hearing intact - Respiratory Respiratory effort: normal - Cardiovascular Rhythm: regular Heart Sounds: Present: S1 & S2 - Gastrointestinal General gastrointestinal: Present: soft, non-tender, non-distended - Labs CBC & Chem 7: 04/08/20 04:44 04/08/20 12:53 Labs: Laboratory Results - last 24 hr 04/07/20 04/08/20 04/08/20 20:57 04:44 04:44 WBC 11.7 H RBC 3.07 L Hgb 9.1 L Hct 28.9 L MCV 94 MCH 30 MCHC 32 RDW 16.8 H Plt Count 348 Lymph % (Auto) 12.4 L [place] % (Auto) 3.7 Eos % (Auto) 0.2 Baso % (Auto) 0.4 Lymph # 1.4 [place] # 0.4 Eos # 0.0 Baso # 0.0 Seg Neutrophils % 83.3 H Seg Neutrophils # 9.7 H Sodium 141 Potassium 6.3 H* Chloride 104.0 Carbon Dioxide 21 L Anion Gap 22 BUN 89 H Creatinine 1.9 H Estimated GFR 37 BUN/Creatinine Ratio 47 Glucose 63 L POC Glucose 82 Calcium 8.5 Total Bilirubin 0.70 AST 370 H ALT 211 H Alkaline Phosphatase 320 H Total Protein 6.6 Albumin 2.6 L Albumin/Globulin Ratio 0.7 04/08/20 04/08/20 04/08/20 07:19 08:43 11:58 WBC RBC Hgb Hct MCV MCH MCHC RDW Plt Count Lymph % (Auto) [place] % (Auto) Eos % (Auto) Baso % (Auto) Lymph # [place] # Eos # Baso # Seg Neutrophils % Seg Neutrophils # Sodium Potassium Chloride Carbon Dioxide Anion Gap BUN Creatinine Estimated GFR BUN/Creatinine Ratio Glucose POC Glucose 65 L 168 H 102 Calcium Total Bilirubin AST ALT Alkaline Phosphatase Total Protein Albumin Albumin/Globulin Ratio 04/08/20 04/08/20 12:53 16:38 WBC RBC Hgb Hct MCV MCH MCHC RDW Plt Count Lymph % (Auto) [place] % (Auto) Eos % (Auto) Baso % (Auto) Lymph # [place] # Eos # Baso # Seg Neutrophils % Seg Neutrophils # Sodium 143 Potassium 6.0 H Chloride 105.4 Carbon Dioxide 22 Anion Gap 22 BUN 90 H Creatinine 2.1 H Estimated GFR 33 BUN/Creatinine Ratio 43 Glucose 124 H POC Glucose 129 H Calcium 8.6 Total Bilirubin AST ALT Alkaline Phosphatase Total Protein Albumin Albumin/Globulin Ratio
[2020-04-08] MEDS ORDERED: SODIUM POLYSTYRENE 15 GM/60 ML ORAL LIQD PO ONE (17:00)
[2020-04-09] MEDS: SODIUM CHLORIDE 0.9% 1000 ML 1,000 ML IV SCH ×2 (03:13→21:09)
[2020-04-09 04:04] LABS: ABG Base Excess -3.3 mmol/L (-2.0-3.0); ABG Methemoglobin 0.5 % (0.0-1.5); ABG Oxygen Saturation 93.7 % (95.0-99.0); ABG PCO2 47.4 mm Hg; ABG PH 7.304 pH Units (7.350-7.450); ABG PO2 72.2 mm Hg (80.0-90.0)
[2020-04-09] MEDS: VANCOMYCIN 2,000 MG in SODIUM CHLORIDE 0.9% 500 ML 500 ML IV SCH (05:37)
[2020-04-09] MEDS: FUROSEMIDE 40 MG/4 ML INJ IV SCH ×2 (05:37→19:36)
--- NOTE | 2020-04-09 06:46 | Progress Note ---
Assessment and Plan Brief history; 54-year-old male with known history of CVA without any residual deficits, hypertension ,diabetes mellitus, coronary artery disease with CABG x2, pulmonary embolism and DVT presented to the emergency room today with a complaint of left foot pain and discoloration for about a week.His leg is cool from the knee down and cold and mottled from the lower calf down. He has an insensate foot from the midfoot down with no ability to move the toes. This has been present since he woke up. Last time he had function in his foot was last night. Left lower extremity ischemia, vascular evaluated, status post fasciotomy and revascula rization. 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/2020, persistent leukocytosis, transaminitis, surgery GI following, DC planning in progress 03/19/2020 status post endovascular revascularization. 03/19/2020 s/p left lower extremity 4 compartment fasciotomy 03/25/2020; s/p left BKA on 03/26/20; evaluated by PT, recommend acute rehab 03/29/20; acute [facility]hab facility from [facility] evaluated the patient Patient is not ready for acute rehab, they will reevaluate 03/30/20; complains of insomnia, add Ambien 03/31; patient is hypotensive, RECORDS COORDINATOR pump discontinued. Added Dilaudid IV as needed 04/01; patient has worsening renal function, and drop in H&H, closely monitor transfuse as needed 04/02; insurance did not approve acute rehab, SNF placement is being processed 04/03: Patient has elevated LFTs WBC remain high, abdominal ultrasound 04/04; abdominal ultrasound findings noted, fatty liver, thickened gallbladder possible cholecystitis HIDA scan requested, discussed with Dr. Rhodes for further evaluation and recommendation 04/05; patient unable to list flat HIDA scan, test canceled, follow GI and surgery evaluation 04/07/2020 patient has more drainage from the left BKA and patient is lethargic 04/08/20 --Hypoglycemia and Hypokalemia Possible sepsis --Sepsis Wound care and IV antibiotics ID consult Wound culture --Transaminitis; unknown etiology, slowly trend Abdominal ultrasound, fatty liver, thickening of gallbladder No cholecystitis Clear to eat --Acute left lower extremity ischemia Current Visit: Yes Status: Acute 03/19/2020 status post endovascular revascularization 03/19/2020 s/p left lower extremity 4 compartment fasciotomy Management per vascular Left BKA on 03/25/2020 --Non-ST elevation NC : Current Visit: Yes Status: Acute Patient has history of CABG patient denies any chest pain. Management per cardiology Per cardiology non-STEMI 2 Elevated troponins at the time of admission --Acute systolic CHF; EF 30-35%% Current Visit: Yes Status: Acute Beta-blockers, BIJAN inhibitor, diuretics Improved -- Hyperglycemia due to diabetes mellitus Current Visit: Yes Status: Acute Accu-Chek sliding scale coverage ADA diet Long-acting insulin as needed, Y0g---44.0 --Nicotine dependence Current Visit: Yes Status: Acute Smoking cessation nicotine patch as needed --Anemia; Current Visit: Yes Status: Acute Gradual l drop in H&H, closely monitor and transfuse as needed --Hypotension; Current Visit: Yes Status: Acute patient RECORDS COORDINATOR pump on hold due to hypotension And give low-dose Dilaudid every 6 hours as needed for pain. Closely monitor blood pressures, fluid bolus as needed --DVT prophylaxis Current Visit: Yes Status: Acute Patient currently on anticoagulation. -- Full code status Current Visit: Yes Status: Acute Patient is on heparin drip Discharge planning issues possible acute rehab placement/SNF placement Subjective Date of service: 04/08/20 Principal diagnosis: Acute limb ischemia; STARR; COPD; Ac hypoxemic resp failure; DM II; NSTEMI Interval history: 54-year-old male with known history of CVA without any residual deficits, hypertension ,diabetes mellitus, coronary artery disease with CABG x2, pulmonary embolism and DVT presented to the emergency room today with a complaint of left foot pain and discoloration for about a week.His leg is cool from the knee down and cold and mottled from the lower calf down. He has an insensate foot from the midfoot down with no ability to move the toes. This has been present since he woke up. Last time he had function in his foot was last night. Left lower extremity ischemia, vascular evaluated, status post fasciotomy and revascularization. left BKA on 03/25/2020 More drainage from the left BKA stump Patient more lethargic Code met in AM due to Hypoglycemia Objective - Constitutional Vitals: Vital Signs - 12hr 04/08/20 04/08/20 04/08/20 21:12 21:17 23:13 Pulse Rate 76 Pulse Rate [ 75 Anterior Bilateral Throughout] Respiratory Rate Respiratory 15 Rate [Anterior Bilateral Throughout] O2 Sat by Pulse 100 98 Oximetry 04/09/20 04:10 Pulse Rate 75 Pulse Rate [ Anterior Bilateral Throughout] Respiratory 23 Rate Respiratory Rate [Anterior Bilateral Throughout] O2 Sat by Pulse 99 Oximetry General appearance: Present: no acute distress, well-nourished - EENT Eyes: PERRL, EOM intact ENT: hearing intact, clear oral mucosa Ears: bilateral: normal - Neck Neck: supple, normal ROM - Respiratory Respiratory effort: normal Respiratory: bilateral: CTA - Breasts Breasts: normal - Cardiovascular Heart rate: 78 Rhythm: regular Heart Sounds: Present: S1 & S2. Absent: gallop, rub Extremities: pulses intact, No edema, normal color, Full ROM - Gastrointestinal General gastrointestinal: Present: soft, non-tender, non-distended, normal bowel sounds - Genitourinary Male genitourinary: normal - Integumentary Integumentary: clear, warm, dry - Musculoskeletal Musculoskeletal: 1, strength equal bilaterally - Neurologic Neurologic: moves all extremities - Psychiatric Psychiatric: memory intact, appropriate mood/affect, intact judgment & insight - Labs CBC & Chem 7: 04/08/20 04:44 04/08/20 12:53 Labs: Abnormal lab results 04/08/20 04/08/20 04/08/20 Range/Units 07:19 08:43 12:53 ABG pH (7.350-7.450) pH Units ABG pO2 (80.0-90.0) mm Hg ABG O2 Saturation (95.0-99.0) % ABG Base Excess (-2.0-3.0) mmol/L ABG Hemoglobin (14.0-18.0) gm/dl Oxyhemoglobin (95.0-99.0) % Potassium 6.0 H (3.6-5.0) mmol/L BUN 90 H (9-20) mg/dL Creatinine 2.1 H (0.8-1.3) mg/dL Glucose 124 H (75-100) mg/dL POC Glucose 65 L 168 H (70-105) 04/08/20 04/08/20 04/09/20 Range/Units 16:38 21:47 03:45 ABG pH 7.304 L (7.350-7.450) pH Units ABG pO2 72.2 L (80.0-90.0) mm Hg ABG O2 Saturation 93.7 L (95.0-99.0) % ABG Base Excess -3.3 L (-2.0-3.0) mmol/L ABG Hemoglobin 8.9 L (14.0-18.0) gm/dl Oxyhemoglobin 91.8 L (95.0-99.0) % Potassium (3.6-5.0) mmol/L BUN (9-20) mg/dL Creatinine (0.8-1.3) mg/dL Glucose (75-100) mg/dL POC Glucose 129 H 118 H (70-105) HEART Score - HEART Score Troponin: Troponin T 3.200 ng/mL (0.00-0.029) H* D 03/20/20 05:12
[2020-04-09] MEDS: ARFORMOTEROL 15 MCG/2 ML NEBU IH SCH ×2 (07:55→19:55)
[2020-04-09] MEDS: BUDESONIDE 0.5 MG/2 ML NEBU IH SCH ×2 (07:55→19:55)
--- NOTE | 2020-04-09 09:06 | Progress Note ---
Assessment and Plan Assessment and plan: 54-year-old male with known history of CVA without any residual deficits, hypertension ,diabetes mellitus, coronary artery disease with CABG x2, pulmonary embolism and DVT presented to the emergency room today with a complaint of left foot pain and discoloration for about a week.His leg is cool from the knee down and cold and mottled from the lower calf down. He has an insensate foot from the midfoot down with no ability to move the toes. This has been present since he woke up. Last time he had function in his foot was last night. Left lower extremity ischemia, vascular evaluated, status post fasciotomy and revascularization. 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 Acute CVA Neurology consulted --Hyperkalemia; mild improvement, closely monitor electrolytes --acute metabolic encephalopathy/worsening lethargy Current Visit: Yes Status: Acute Multifactorial, sepsis, congestive heart failure, electrolyte abnormalities Patient was unresponsive yesterday 04/08/2020, rapid response was called, CT head: without contrast; late subacute infarction in the posterior cerebral artery or posterior division middle cerebral artery distribution involving the lateral aspect of the left cerebral hemisphere in the parietal occipital junction region Remote bilateral cerebellar infarctions in PICA distribution No acute intracranial abnormalities identified patient is severely lethargic noncommunicative Neurology consult requested. --sepsis Current Visit: Yes Status: Acute Wound care and IV antibiotics Vanco cefepime ID consult, Wound culture. --Transaminitis/Acute liver failure Current Visit: Yes Status: Acute unknown etiology, slowly trend Abdominal ultrasound, fatty liver, thickening of gallbladder, --Coagulopathy ; secondary to acute liver failure Current Visit: Yes Status: Acute INR between 2 and 3 ,patient is on Eliquis, Plavix, for peripheral arterial disease, Will hold Eliquis --acute left lower extremity ischemia Current Visit: Yes Status: Acute 03/19/2020 status post endovascular revascularization 03/19/2020 s/p left lower extremity 4 compartment fasciotomy Management per vascular Left BKA on 03/25/2020 --Non-ST elevation MS : Current Visit: Yes Status: Acute Patient has history of CABG patient denies any chest pain. Management per cardiology Per cardiology non-STEMI 2 Elevated troponins at the time of admission --Acute systolic CHF; EF 30-35%% Current Visit: Yes Status: Acute Beta-blockers, BIJAN inhibitor, diuretics Improved -- Hyperglycemia due to diabetes mellitus Current Visit: Yes Status: Acute Accu-Chek sliding scale coverage ADA diet Long-acting insulin as needed, V5h---80.0 --Nicotine dependence Current Visit: Yes Status: Acute Smoking cessation nicotine patch as needed --Anemia; Current Visit: Yes Status: Acute Gradual l drop in H&H, closely monitor and transfuse as needed --Hypotension; Current Visit: Yes Status: Acute patient FARM ADVISER pump on hold due to hypotension And give low-dose Dilaudid every 6 hours as needed for pain. Closely monitor blood pressures, fluid bolus as needed --DVT prophylaxis Current Visit: Yes Status: Acute Patient currently on anticoagulation. -- Full code status Current Visit: Yes Status: Acute Patient is on heparin drip Discharge planning issues possible acute rehab placement/SNF placement 04/05; patient unable to list flat HIDA scan, test canceled, follow GI and surg bhargavi evaluation . 04/07 patient has more drainage from the left BKA and patient is lethargic 04/08 --Hypoglycemia and Hypokalemia ,Possible sepsis 04/09;Hyperkalemia received calcium gluconate Kayexalate insulin and D50, CT head/acute CVA Consulted neurology, not a candidate for TPA, too unstable for MRI Multiorgan involvement, with very poor prognosis Called patient's son Mr. Micah Weiss [phone] and discussed in detail patient's critical condition Multiorgan organ involvement, very poor prognosis, continues deterioration clinically, and treatment plan. I also discussed with him tests and imaging studies reports. I answered all his questions, I even discussed patient's advanced directives. The son reports that he would discuss with other family members and will get back to us. I encouraged him to call back with any new questions or concerns. Informed patient's nurse of the above conversation, Critical care time 50 minutes. History Interval history: I have seen and examined the patient at the bedside Patient's chart medications tests overnight events reviewed Patient severely lethargic, in moderate to severe distress,Unable to take oral Vital signs reviewed,, Blood work revealed severe hyperkalemia CT head without contrast. Acute CVA Hospitalist Physical - Constitutional Vitals: Temp Pulse Resp BP Pulse Ox 97.7 F 74 25 H 99/65 99 04/08/20 15:01 04/09/20 07:56 04/09/20 07:56 04/09/20 07:56 04/09/20 07:56 General appearance: Present: mild distress, well-nourished, obese (Morbidly), o ther (Lethargic) - EENT Eyes: Present: PERRL, EOM intact - Neck Neck: Present: supple, normal ROM - Respiratory Respiratory effort: normal Respiratory: bilateral: diminished, rhonchi, negative: rales, wheezing - Cardiovascular Rhythm: regular Heart Sounds: Present: S1 & S2 - Extremities Extremities: no ischemia, No edema, abnormal (Left BKA) - Abdominal General gastrointestinal: soft, non-tender, non-distended, normal bowel sounds - Integumentary Integumentary: Present: clear, warm - Psychiatric Psychiatric: other (Lethargic noncommunicative) - Neurologic Neurologic: other (Lethargy noncommunicative) HEART Score - HEART Score Troponin: Troponin T 3.200 ng/mL (0.00-0.029) H* D 03/20/20 05:12 Results - Labs CBC & Chem 7: 04/10/20 05:48 04/10/20 05:48 Labs: Laboratory Last Values WBC 11.7 K/mm3 (4.5-11.0) H 04/08/20 04:44 RBC 3.07 M/mm3 (3.65-5.03) L 04/08/20 04:44 Hgb 9.1 gm/dl (11.8-15.2) L 04/08/20 04:44 Hct 28.9 % (35.5-45.6) L 04/08/20 04:44 MCV 94 fl (84-94) 04/08/20 04:44 MCH 30 pg (28-32) 04/08/20 04:44 MCHC 32 % (32-34) 04/08/20 04:44 RDW 16.8 % (13.2-15.2) H 04/08/20 04:44 Plt Count 348 K/mm3 (140-440) 04/08/20 04:44 Lymph % (Auto) 12.4 % (13.4-35.0) L 04/08/20 04:44 [place] % (Auto) 3.7 % (0.0-7.3) 04/08/20 04:44 Eos % (Auto) 0.2 % (0.0-4.3) 04/08/20 04:44 Baso % (Auto) 0.4 % (0.0-1.8) 04/08/20 04:44 Lymph # 1.4 K/mm3 (1.2-5.4) 04/08/20 04:44 [place] # 0.4 K/mm3 (0.0-0.8) 04/08/20 04:44 Eos # 0.0 K/mm3 (0.0-0.4) 04/08/20 04:44 Baso # 0.0 K/mm3 (0.0-0.1) 04/08/20 04:44 Add Manual Diff Complete 03/29/20 14:19 Total Counted 100 03/29/20 14:19 Seg Neutrophils % 83.3 % (40.0-70.0) H 04/08/20 04:44 Seg Neuts % (Manual) 85.0 % (40.0-70.0) H 03/29/20 14:19 Band Neutrophils % 0 % 03/29/20 14:19 Lymphocytes % (Manual) 11.0 % (13.4-35.0) L 03/29/20 14:19 Reactive Lymphs % (Man) 0 % 03/29/20 14:19 Monocytes % (Manual) 1.0 % (0.0-7.3) 03/29/20 14:19 Eosinophils % (Manual) 3.0 % (0.0-4.3) 03/29/20 14:19 Basophils % (Manual) 0 % (0.0-1.8) 03/29/20 14:19 Metamyelocytes % 0 % 03/29/20 14:19 Myelocytes % 0 % 03/29/20 14:19 Promyelocytes % 0 % 03/29/20 14:19 Blast Cells % 0 % 03/29/20 14:19 Nucleated RBC % 3.0 % (0.0-0.9) H 03/29/20 14:19 Seg Neutrophils # 9.7 K/mm3 (1.8-7.7) H 04/08/20 04:44 Seg Neutrophils # Man 18.3 K/mm3 (1.8-7.7) H 03/29/20 14:19 Band Neutrophils # 0.0 K/mm3 03/29/20 14:19 Lymphocytes # (Manual) 2.4 K/mm3 (1.2-5.4) 03/29/20 14:19 Abs React Lymphs (Man) 0.0 K/mm3 03/29/20 14:19 Monocytes # (Manual) 0.2 K/mm3 (0.0-0.8) 03/29/20 14:19 Eosinophils # (Manual) 0.6 K/mm3 (0.0-0.4) H 03/29/20 14:19 Basophils # (Manual) 0.0 K/mm3 (0.0-0.1) 03/29/20 14:19 Metamyelocytes # 0.0 K/mm3 03/29/20 14:19 Myelocytes # 0.0 K/mm3 03/29/20 14:19 Promyelocytes # 0.0 K/mm3 03/29/20 14:19 Blast Cells # 0.0 K/mm3 03/29/20 14:19 WBC Morphology Not Reportable 03/29/20 14:19 Hypersegmented Neuts Not Reportable 03/29/20 14:19 Hyposegmented Neuts Not Reportable 03/29/20 14:19 Hypogranular Neuts Not Reportable 03/29/20 14:19 Smudge Cells Not Reportable 03/29/20 14:19 Toxic Granulation Not Reportable 03/29/20 14:19 Toxic Vacuolation Not Reportable 03/29/20 14:19 Dohle Bodies Not Reportable 03/29/20 14:19 Pelger-Huet Anomaly Not Reportable 03/29/20 14:19 Ananya Rods Not Reportable 03/29/20 14:19 Platelet Estimate Consistent w auto 03/29/20 14:19 Clumped Platelets Not Reportable 03/29/20 14:19 Plt Clumps, EDTA Not Reportable 03/29/20 14:19 Large Platelets Not Reportable 03/29/20 14:19 Giant Platelets Not Reportable 03/29/20 14:19 Platelet Satelliting Not Reportable 03/29/20 14:19 Plt Morphology Comment Not Reportable 03/29/20 14:19 RBC Morphology Not Reportable 03/29/20 14:19 Dimorphic RBCs Not Reportable 03/29/20 14:19 Polychromasia Not Reportable 03/29/20 14:19 Hypochromasia Not Reportable 03/29/20 14:19 Poikilocytosis Not Reportable 03/29/20 14:19 Anisocytosis 1+ 03/29/20 14:19 Microcytosis Not Reportable 03/29/20 14:19 Macrocytosis Not Reportable 03/29/20 14:19 Spherocytes Not Reportable 03/29/20 14:19 Pappenheimer Bodies Not Reportable 03/29/20 14:19 Sickle Cells Not Reportable 03/29/20 14:19 Target Cells Not Reportable 03/29/20 14:19 Tear Drop Cells Not Reportable 03/29/20 14:19 Ovalocytes Not Reportable 03/29/20 14:19 Helmet Cells Not Reportable 03/29/20 14:19 Light-Henlawson Bodies Not Reportable 03/29/20 14:19 [place] Rings Not Reportable 03/29/20 14:19 Rudyard Cells Not Reportable 03/29/20 14:19 Bite Cells Not Reportable 03/29/20 14:19 Crenated Cell Not Reportable 03/29/20 14:19 Elliptocytes Not Reportable 03/29/20 14:19 Acanthocytes (Spur) Not Reportable 03/29/20 14:19 Rouleaux Not Reportable 03/29/20 14:19 Hemoglobin C Crystals Not Reportable 03/29/20 14:19 Schistocytes Not Reportable 03/29/20 14:19 Malaria parasites Not Reportable 03/29/20 14:19 Steven Bodies Not Reportable 03/29/20 14:19 Hem Pathologist Commnt No 03/29/20 14:19 PT 30.9 Sec. (12.2-14.9) H 04/07/20 04:58 INR 2.89 (0.87-1.13) H 04/07/20 04:58 APTT 27.7 Sec. (24.2-36.6) 03/18/20 18:28 Heparin Anti-Xa Level 0.10 U.I./ml (0.3-0.7) L 03/25/20 04:06 ABG pH 7.304 pH Units (7.350-7.450) L 04/09/20 03:45 ABG pCO2 47.4 mm Hg 04/09/20 03:45 ABG pO2 72.2 mm Hg (80.0-90.0) L 04/09/20 03:45 ABG HCO3 23.0 mmol/L (20.0-26.0) 04/09/20 03:45 ABG O2 Saturation 93.7 % (95.0-99.0) L 04/09/20 03:45 ABG O2 Content 11.5 (0.0-44) 04/09/20 03:45 ABG Base Excess -3.3 mmol/L (-2.0-3.0) L 04/09/20 03:45 ABG Hemoglobin 8.9 gm/dl (14.0-18.0) L 04/09/20 03:45 ABG Carboxyhemoglobin 1.5 % (0.0-5.0) 04/09/20 03:45 ABG Methemoglobin 0.5 % (0.0-1.5) 04/09/20 03:45 Oxyhemoglobin 91.8 % (95.0-99.0) L 04/09/20 03:45 FiO2 36 % 04/09/20 03:45 Sodium 143 mmol/L (137-145) 04/08/20 12:53 Potassium 6.0 mmol/L (3.6-5.0) H 04/08/20 12:53 Chloride 105.4 mmol/L (98-107) 04/08/20 12:53 Carbon Dioxide 22 mmol/L (22-30) 04/08/20 12:53 Anion Gap 22 mmol/L 04/08/20 12:53 BUN 90 mg/dL (9-20) H 04/08/20 12:53 Creatinine 2.1 mg/dL (0.8-1.3) H 04/08/20 12:53 Estimated GFR 33 ml/min 04/08/20 12:53 BUN/Creatinine Ratio 43 % 04/08/20 12:53 Glucose 124 mg/dL (75-100) H 04/08/20 12:53 POC Glucose 77 (70-105) 04/09/20 07:26 Hemoglobin A1c 11.0 % (4-6) H 03/18/20 22:21 Calcium 8.6 mg/dL (8.4-10.2) 04/08/20 12:53 Magnesium 2.20 mg/dL (1.7-2.3) 03/28/20 07:39 Ferritin 444.2 ng/mL (30.0-300.0) H 04/06/20 07:14 Total Bilirubin 0.70 mg/dL (0.1-1.2) 04/08/20 04:44 AST 370 units/L (5-40) H 04/08/20 04:44 ALT 211 units/L (7-56) H 04/08/20 04:44 Alkaline Phosphatase 320 units/L (35-129) H 04/08/20 04:44 Total Creatine Kinase 7255 units/L (55-170) H 03/19/20 08:08 CK-MB (CK-2) 79.3 ng/mL (0.0-4.0) H 03/19/20 08:08 CK-MB (CK-2) Rel Index 1.0 (0-4) 03/19/20 08:08 Troponin T 3.200 ng/mL (0.00-0.029) H* D 03/20/20 05:12 Total Protein 6.6 g/dL (6.3-8.2) 04/08/20 04:44 Albumin 2.6 g/dL (3.9-5) L 04/08/20 04:44 Albumin/Globulin Ratio 0.7 % 04/08/20 04:44 Triglycerides 188 mg/dL (2-149) H 03/18/20 18:28 Cholesterol 199 mg/dL (50-199) 03/18/20 18:28 LDL Cholesterol Direct 141 mg/dL (50-130) H 03/18/20 18:28 HDL Cholesterol 47 mg/dL (40-59) 03/18/20 18:28 Cholesterol/HDL Ratio 4.23 % 03/18/20 18:28 Coronavirus (PCR) Negative (Negative) 04/03/20 08:00 Hep Bs Antigen Non-reactive (Negative) 04/06/20 07:14 Hepatitis C Antibody Non-reactive (NonReactive) 04/06/20 07:14 Blood Type B POSITIVE 03/25/20 11:42 Antibody Screen Negative 03/25/20 11:42 - Diagnostic Impressions Diagnostic Impressions: Echocardiogram 03/19/20 12:49 Transthoracic Echocardiogram Indication: CAD and Abnormal EKG HR: 110 Conclusions *The study is technically limited due to patient body habitus. *The left ventricular chamber size is mildly dilated. *Global left ventricular systolic function is moderate to severely decreased. *The estimated ejection fraction is 30-35%. *The basal inferolateral, and basal inferior wall segments are normal. *The mid inferolateral, mid inferior, apical lateral, and apical inferior wall segments are akinetic. *The left atrial chamber size is normal. Findings Procedure Info: The study is technically limited due to patient body habitus. The study was technically limited due to the patient's inability to lay in the left lateral decubitus position. Left Ventricle: The left ventricular chamber size is mildly dilated. Global left ventricular systolic function is moderate to severely decreased. The estimated ejection fraction is 30-35%. The basal inferolateral, and basal inferior wall segments are normal. The mid inferolateral, mid inferior, apical lateral, and apical inferior wall segments are akinetic. Left Atrium: The left atrial chamber size is normal. Right Ventricle: The right ventricle is not well visualized. Right Atrium: The right atrium is not well visualized. The right atrial cavity size is normal. Aortic Valve: The aortic valve is trileaflet. Mitral Valve: The mitral valve leaflets are moderately thickened. There is mild mitral regurgitation. Tricuspid Valve: The tricuspid valve is not well visualized. There is trace tricuspid regurgitation. Pulmonic Valve: The pulmonic valve is not well visualized. Pericardium: There is no pericardial effusion. Aorta: The aorta appears normal. Venous: The venous system is not well visualized. Contrast: Definity was used to optimize study. Measurements Chambers 2D Name Value Normal Range IVSd (2D) 0.94 cm (0.6 - 1.1) LVPWd (2D) 0.94 cm (0.6 - 1.1) LVIDd (2D) 6.15 cm (3.7 - 5.6) LVIDs (2D) 5.2 cm (2 - 3.8) LV FS (2D) 15.5 % - EF Teichholz (2D) 32.08 % - Ao root diameter (2D) 2.77 cm (2 - 3.7) Volumes/Mass Name Value Normal Range LA ESV SP 4CH (A/L) 73.77 ml - LA ESV SP 2CH (A/L) 66.45 ml - LA ESV BP (A/L) 71.61 ml - LA ESV BP (A/L) index 30.6 ml/m2 - LA ESV SP 4CH (MOD) 72.55 ml - LA ESV SP 2CH (MOD) 65.34 ml - LA ESV BP (MOD) 70.27 ml - LA ESV BP (MOD) index 30.03 ml/m2 - Diastolic/Systolic Function Name Value Normal Range MV E-wave Vmax 0.85 m/sec - MV deceleration time 69.14 msec - MV A-wave Vmax 0.89 m/sec - MV E:A ratio 0.95 ratio - Aortic Valve Name Value Normal Range AV Vmax 0.96 m/sec - AV VTI 11.83 cm - AV peak gradient 3.68 mmHg - AV mean gradient 1.6 mmHg - LVOT diameter 2.19 cm - LVOT Vmax 0.86 m/sec - LVOT VTI 13.33 cm - LVOT peak gradient 2.96 mmHg - LVOT mean gradient 1.48 mmHg - SV LVOT 50.08 ml - DEYA (continuity Vmax) 3.37 cm2 - DEYA (continuity VTI) 4.23 cm2 - Ascending Ao 2.92 cm - Pulmonic Valve/Qp:Qs Name Value Normal Range PV Vmax 1.08 m/sec - PV VTI 15.88 cm - PV peak gradient 4.7 mmHg - PV mean gradient 2.18 mmHg - RVOT Vmax 0.82 m/sec - RVOT VTI 11.48 cm - RVOT peak gradient 2.67 mmHg - Wallmotion BAS Not Seen BA Not Seen BAL Not Seen BAY Normal BI Normal BIS Not Seen MAS Not Seen MA Not Seen MAL Not Seen MIL Akinetic MS Akinetic MIS Not Seen Not Seen AA Not Seen AL Akinetic AI Akinetic APEX Not Seen Tyson/IV: Voiding Method Incontinent IV Catheter Type [Right Peripheral IV Forearm] IV Catheter Type [Right INT / Saline Lock Antecubital] IV Catheter Type [Right Hand] Peripheral IV IV Catheter Type [Left Forearm INT / Saline Lock ] IV Catheter Type [Left Upper Peripheral IV arm] IV Catheter Type [Left Peripheral IV Antecubital] Active Medications - Current Medications Current Medications: Generic Name Dose Route Start Last Admin Trade Name Freq PRN Reason Stop Dose Admin Acetaminophen/Hydrocodone Bitart 2 each 03/22/20 17:18 04/06/20 09:52 Brice 5/325 PO 2 each Q4H PRN Administration Pain, Moderate (4-6) Albuterol 2.5 mg 04/01/20 00:03 Proventil IH Q6HRT PRN Shortness Of Breath Apixaban 5 mg 03/26/20 22:00 04/08/20 22:22 Eliquis PO Not Given Q12HR LOI Protocol Arformoterol Tartrate 15 mcg 03/19/20 20:00 04/09/20 07:55 Brovana Nebu IH 15 mcg Q12HRT LOI Administration Atorvastatin Calcium 40 mg 03/19/20 22:00 04/08/20 22:23 Lipitor PO Not Given QHS LOI Budesonide 0.5 mg 03/19/20 20:00 04/09/20 07:55 Pulmicort IH 0.5 mg Q12HRT LOI Administration Clopidogrel Bisulfate 75 mg 03/19/20 10:00 04/08/20 11:20 Plavix PO 75 mg QDAY LOI Administration Dextrose 50 ml 03/18/20 22:21 04/08/20 07:42 D50w (25gm) Syringe IV 50 ml Q30MIN PRN Administration Hypoglycemia Protocol Diphenhydramine HCl 25 mg 03/19/20 12:44 Benadryl IV Q4H PRN Itching Furosemide 40 mg 04/06/20 06:00 04/09/20 05:37 Lasix IV 40 mg 0600,1800 LOI Administration Guaifenesin 10 ml 04/01/20 00:03 04/02/20 05:34 Guaifenesin Dm Syrup PO 10 ml Q4H PRN Administration Cough Hydromorphone/Sodium Chloride 0 mg 03/19/20 13:00 03/30/20 02:09 Dilaudid Laminator Hand 6mg/30ml IV 1 cart DIRECT LOI Administration Protocol Sodium Chloride 1,000 mls @ 75 mls/hr 04/07/20 16:45 04/09/20 03:13 Nacl 0.9% 1000 Ml IV 75 mls/hr DIRECT LOI Administration Vancomycin HCl 2,000 mg/ 540 mls @ 250 mls/hr 04/07/20 18:00 04/09/20 05:37 Sodium Chloride IV 250 mls/hr Q18H LOI Administration Cefepime HCl 1 gm in 100 mls @ 200 mls/hr 04/08/20 13:00 04/08/20 22:08 Cefepime/Ns 1 Gm/100 Ml IV 200 mls/hr Q12HR LOI Administration Protocol Insulin Human Lispro 0 unit 03/20/20 16:30 04/08/20 22:22 Humalog SUB-Q Not Given ACHS [facility] Protocol Ipratropium [place] 0.5 mg 04/01/20 00:05 Atrovent IH Q6HRT PRN Shortness Of Breath Magnesium Hydroxide 30 ml 03/18/20 22:21 Milk Of Magnesia PO Q4H PRN Constipation Metoprolol Tartrate 50 mg 03/19/20 22:00 04/08/20 22:23 Metoprolol PO Not Given BID LOI Naloxone HCl 0.1 mg 03/19/20 12:44 Naloxone IV Q2MIN PRN Res Rate </= 8 or 02 SAT < 92% Ondansetron HCl 4 mg 03/18/20 22:21 04/05/20 01:46 Zofran IV 4 mg Q8H PRN Administration Nausea And Vomiting Pantoprazole Sodium 40 mg 03/20/20 10:00 04/08/20 22:24 Protonix PO Not Given BID LOI Pregabalin 150 mg 03/22/20 22:00 04/08/20 22:23 Pregabalin PO Not Given BID LOI Sodium Chloride 10 ml 03/19/20 10:00 04/08/20 22:09 Sodium Chloride Flush Syringe 10 Ml IV 10 ml BID LOI Administration Sodium Chloride 10 ml 03/18/20 22:21 04/09/20 05:37 Sodium Chloride Flush Syringe 10 Ml IV 10 ml PRN PRN Administration LINE FLUSH Zolpidem Tartrate 5 mg 03/31/20 19:09 04/05/20 22:32 Ambien PO 5 mg QHS PRN Administration Sleep Nutrition/Malnutrition Assess - Dietary Evaluation Nutrition/Malnutrition Findings: Nutrition Notes Start: 03/19/20 11:59 Freq: Status: Active Protocol: Document 04/08/20 11:25 DAYO (Rec: 04/08/20 11:29 DAYO [email or web address]) Nutrition Notes Initial or Follow up Reassessment Current Diagnosis COPD,Diabetes Other Pertinent Diagnosis (L) LE ischemia s/p (L) BKA, STARR, NSTEMI Current Diet Cardiac/Consistent CHO Labs/Tests K 6.3 BUN 89 Cr 1.9 BG 63 Elevated LFTs Pertinent Medications Lasix Height 6 ft Weight 128.1 kg [place] Body Weight (kg) 80.90 BMI 38.2 Subjective/Other Information Pt consumed 75% of meals documented on 04/04-04/05. Pt is s/p code MET this am. Percent of energy/protein needs met: 68% energy 60% pro Burn Absent Trauma Absent #1 Nutrition Diagnosis Increased nutrient needs ( specify in comment below) Diagnosis Progress(for reassessment Continues documentation) Is patient on ventilator? No Is Patient Ambulatory and/or Out of Bed No REE-([place]-St. Jeor-confined to bed) 2588.544 Kcal/Kg value to use for calculation 17 Approximate Energy Requirements Using 2178 kcal/Kg Calculation Used for Recommendations Kcal/kg Additional Notes Pro needs 1-1.2g/kg adjBW (not for amputation): 105-125g/day Fluid needs 1ml/kcal Nutrition Intervention Change Diet Order: Continue current diet order; honor food preferences Goal #1 PO intakes to meet at least 75 % energy and pro needs Goal #2 Healing of surgical site Follow-Up By: 04/11/20 Additional Comments F/U: intakes
[2020-04-09 09:16] LABS: Calcium 8.2 mg/dL (8.4-10.2)
--- NOTE | 2020-04-09 10:15 | Progress Note ---
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 Patient Obese. Patient presently sleeping on 3 1/2 litres and O2 saturation running 100%. Chest xray 04/08/20 reported Progressive airspace disease, worse on the left. ABG FIO2 35%. ABG pH 7.405 pH Units (7.350-7.450) 03/20/20 04:35 ABG pCO2 40.3 mm Hg 03/20/20 04:35 ABG pO2 68.3 mm Hg (80.0-90.0) L 03/20/20 04:35 ABG O2 Saturation 94.3 % (95.0-99.0) L 03/20/20 04:35 Patient afebrile and has leukocytosis Patient is on cefepime and vancomycin. Patient is on Apixaban. Patient is on Protonix for GI prophylaxis. Recommend incentive spirometry. Patient is on Brovanna/Budesonide aerosol treatments q 12 hours. In addition recommend albuterol/atrovent aerosol treatments q 6 hours PRN for shortness of breath. Robitussin DM PRN for cough. Continue physical therapy. Recommend chest PT. 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 (2) Cardiomyopathy Current Visit: Yes Status: Acute Plan to address problem: Management as per primary care and cardiology. (3) Elevated troponin Current Visit: Yes Status: Acute Plan to address problem: Management as per primary care and cardiology. (4) Hx of two vessel coronary artery bypass graft Current Visit: Yes Status: Acute Plan to address problem: Management as per cardiology. (5) NSTEMI (non-ST elevated myocardial infarction) Current Visit: Yes Status: Acute Plan to address problem: Management as per cardiology. (6) HTN (hypertension) Current Visit: Yes Status: Chronic Plan to address problem: Management as per primary care. (7) History of CVA (cerebrovascular accident) Current Visit: Yes Status: Chronic Plan to address problem: management as per primary care. (8) Smoker Current Visit: Yes Status: Chronic Plan to address problem: Counseled to stop smoking. (9) Pneumonia Current Visit: Yes Status: Acute Plan to address problem: Patient is on cefepime and vancomycin. (10) Hyperkalemia Current Visit: Yes Status: Acute Plan to address problem: Patient given calcium gluconate and insulin. Repeat BMP. Subjective Date of service: 04/09/20 Principal diagnosis: Acute limb ischemia; STARR; COPD; Ac hypoxemic resp failure; DM II; NSTEMI Interval history: Patient under gone below th knee amputation of left lower leg for arterial occl usion. Patient Obese. Patient presently sleeping on Bipap and O2 saturation running 99%. Chest xray 04/08/20 reported Progressive airspace disease, worse on the left. ABG FIO2 36% ABG pH 7.304 pH Units (7.350-7.450) L 04/09/20 03:45 ABG pCO2 47.4 mm Hg 04/09/20 03:45 ABG pO2 72.2 mm Hg (80.0-90.0) L 04/09/20 03:45 ABG O2 Saturation 93.7 % (95.0-99.0) L 04/09/20 03:45 Patients K+ 6.6. Patient is getting calcium gluconate, Insulin etc Repeat BMP Patient afebrile and has leukocytosis Patient is on cefepime and vancomycin. Patient is on Apixaban. Patient is on Protonix for GI prophylaxis. Recommend incentive spirometry. Patient is on Brovanna/Budesonide aerosol treatments q 12 hours. In addition recommend albuterol/atrovent aerosol treatments q 6 hours PRN for shortness of breath. Robitussin DM PRN for cough. Continue physical therapy. Objective Vital Signs - 12hr 04/08/20 04/09/20 04/09/20 23:13 04:10 07:07 Pulse Rate 76 75 Pulse Rate [ Anterior Bilateral Throughout] Respiratory 23 Rate Respiratory Rate [Anterior Bilateral Throughout] Blood Pressure 81/53 O2 Sat by Pulse 98 99 Oximetry 04/09/20 04/09/20 04/09/20 07:11 07:55 07:56 Pulse Rate 68 74 Pulse Rate [ 76 Anterior Bilateral Throughout] Respiratory 25 H Rate Respiratory 16 Rate [Anterior Bilateral Throughout] Blood Pressure 87/58 99/65 O2 Sat by Pulse 98 99 Oximetry 04/09/20 10:03 Pulse Rate Pulse Rate [ Anterior Bilateral Throughout] Respiratory Rate Respiratory Rate [Anterior Bilateral Throughout] Blood Pressure 130/90 O2 Sat by Pulse Oximetry Constitutional: no acute distress, asleep, other (Sleeping on BIPAP.) Eyes: non-icteric ENT: oropharynx moist Neck: supple, no lymphadenopathy, no JVD Effort: mildly labored Ascultation: Left: rhonchi, Bilateral: diminished breath sounds, other (+ referred upper airway sounds) Percussion: Bilateral: not dull Cardiovascular: regular rate and rhythm Gastrointestinal: normoactive bowel sounds, soft, non-tender, non-distended (protuberant) Integumentary: rash Extremities: cool, edema (right lower extremity), other (left BKA with clean dressing) Neurologic: normal mental status, non-focal exam, pupils equal and round, motor strength normal and Psychiatric: other (lethargic) CBC and BMP: 04/08/20 04:44 04/09/20 08:04 ABG, PT/INR, D-dimer: ABG ABG pH 7.304 pH Units (7.350-7.450) L 04/09/20 03:45 ABG pCO2 47.4 mm Hg 04/09/20 03:45 ABG pO2 72.2 mm Hg (80.0-90.0) L 04/09/20 03:45 ABG O2 Saturation 93.7 % (95.0-99.0) L 04/09/20 03:45 PT/INR, D-dimer PT 30.9 Sec. (12.2-14.9) H 04/07/20 04:58 INR 2.89 (0.87-1.13) H 04/07/20 04:58 Abnormal lab findings: Abnormal Labs 03/18/20 03/18/20 03/18/20 18:28 18:28 20:56 WBC 12.3 H RBC Hgb Hct MCHC RDW Lymph % (Auto) 11.0 L [place] % (Auto) 9.8 H [place] # 1.2 H Seg Neutrophils % 78.4 H Seg Neuts % (Manual) Lymphocytes % (Manual) Nucleated RBC % Seg Neutrophils # 9.6 H Seg Neutrophils # Man Lymphocytes # (Manual) Monocytes # (Manual) Eosinophils # (Manual) PT INR Heparin Anti-Xa Level ABG pH ABG pO2 ABG HCO3 ABG O2 Saturation ABG Base Excess ABG Hemoglobin Oxyhemoglobin Sodium 132 L Potassium Chloride 91.9 L Carbon Dioxide 20 L BUN Creatinine 1.4 H Glucose 406 H POC Glucose Hemoglobin A1c Calcium Ferritin AST ALT Alkaline Phosphatase Total Creatine Kinase 2727 H 2492 H CK-MB (CK-2) 135.9 H 107.2 H CK-MB (CK-2) Rel Index 4.3 H Troponin T 5.110 H* 3.960 H* D Total Protein Albumin Triglycerides 188 H LDL Cholesterol Direct 141 H 03/18/20 03/19/20 03/19/20 22:21 01:57 08:08 WBC RBC Hgb Hct MCHC RDW Lymph % (Auto) [place] % (Auto) [place] # Seg Neutrophils % Seg Neuts % (Manual) Lymphocytes % (Manual) Nucleated RBC % Seg Neutrophils # Seg Neutrophils # Man Lymphocytes # (Manual) Monocytes # (Manual) Eosinophils # (Manual) PT INR Heparin Anti-Xa Level ABG pH ABG pO2 ABG HCO3 ABG O2 Saturation ABG Base Excess ABG Hemoglobin Oxyhemoglobin Sodium Potassium Chloride Carbon Dioxide BUN Creatinine Glucose POC Glucose 317 H Hemoglobin A1c 11.0 H Calcium Ferritin AST ALT Alkaline Phosphatase Total Creatine Kinase 7255 H CK-MB (CK-2) 79.3 H CK-MB (CK-2) Rel Index Troponin T 5.540 H* D Total Protein Albumin Triglycerides LDL Cholesterol Direct 03/19/20 03/19/20 03/19/20 08:08 08:08 08:08 WBC 13.3 H RBC Hgb Hct MCHC RDW Lymph % (Auto) 10.7 L [place] % (Auto) 8.5 H [place] # 1.1 H Seg Neutrophils % 80.0 H Seg Neuts % (Manual) Lymphocytes % (Manual) Nucleated RBC % Seg Neutrophils # 10.6 H Seg Neutrophils # Man Lymphocytes # (Manual) Monocytes # (Manual) Eosinophils # (Manual) PT INR Heparin Anti-Xa Level 0.10 L ABG pH ABG pO2 ABG HCO3 ABG O2 Saturation ABG Base Excess ABG Hemoglobin Oxyhemoglobin Sodium 133 L Potassium 5.1 H Chloride Carbon Dioxide 17 L BUN 23 H Creatinine Glucose 313 H POC Glucose Hemoglobin A1c Calcium Ferritin AST ALT Alkaline Phosphatase Total Creatine Kinase CK-MB (CK-2) CK-MB (CK-2) Rel Index Troponin T Total Protein Albumin Triglycerides LDL Cholesterol Direct 03/19/20 03/19/20 03/19/20 15:40 18:23 21:32 WBC RBC Hgb Hct MCHC RDW Lymph % (Auto) [place] % (Auto) [place] # Seg Neutrophils % Seg Neuts % (Manual) Lymphocytes % (Manual) Nucleated RBC % Seg Neutrophils # Seg Neutrophils # Man Lymphocytes # (Manual) Monocytes # (Manual) Eosinophils # (Manual) PT INR Heparin Anti-Xa Level < 0.10 L ABG pH ABG pO2 ABG HCO3 18.3 L ABG O2 Saturation ABG Base Excess -5.4 L ABG Hemoglobin 12.2 L Oxyhemoglobin 94.6 L Sodium Potassium Chloride Carbon Dioxide BUN Creatinine Glucose POC Glucose 348 H Hemoglobin A1c Calcium Ferritin AST ALT Alkaline Phosphatase Total Creatine Kinase CK-MB (CK-2) CK-MB (CK-2) Rel Index Troponin T Total Protein Albumin Triglycerides LDL Cholesterol Direct 03/20/20 03/20/20 03/20/20 04:35 05:12 05:12 WBC 11.1 H RBC 3.63 L Hgb 11.0 L Hct 32.7 L D MCHC RDW Lymph % (Auto) [place] % (Auto) 8.1 H [place] # 0.9 H Seg Neutrophils % 75.8 H Seg Neuts % (Manual) Lymphocytes % (Manual) Nucleated RBC % Seg Neutrophils # 8.4 H Seg Neutrophils # Man Lymphocytes # (Manual) Monocytes # (Manual) Eosinophils # (Manual) PT INR Heparin Anti-Xa Level 0.28 L ABG pH ABG pO2 68.3 L ABG HCO3 ABG O2 Saturation 94.3 L ABG Base Excess ABG Hemoglobin 7.1 L Oxyhemoglobin 92.3 L Sodium Potassium Chloride Carbon Dioxide BUN Creatinine Glucose POC Glucose Hemoglobin A1c Calcium Ferritin AST ALT Alkaline Phosphatase Total Creatine Kinase CK-MB (CK-2) CK-MB (CK-2) Rel Index Troponin T Total Protein Albumin Triglycerides LDL Cholesterol Direct 03/20/20 03/20/20 03/20/20 05:12 07:49 12:15 WBC RBC Hgb Hct MCHC RDW Lymph % (Auto) [place] % (Auto) [place] # Seg Neutrophils % Seg Neuts % (Manual) Lymphocytes % (Manual) Nucleated RBC % Seg Neutrophils # Seg Neutrophils # Man Lymphocytes # (Manual) Monocytes # (Manual) Eosinophils # (Manual) PT INR Heparin Anti-Xa Level ABG pH ABG pO2 ABG HCO3 ABG O2 Saturation ABG Base Excess ABG Hemoglobin Oxyhemoglobin Sodium 134 L Potassium Chloride Carbon Dioxide 21 L BUN 23 H Creatinine Glucose 275 H POC Glucose 294 H 357 H Hemoglobin A1c Calcium Ferritin AST ALT Alkaline Phosphatase Total Creatine Kinase CK-MB (CK-2) CK-MB (CK-2) Rel Index Troponin T 3.200 H* D Total Protein Albumin Triglycerides LDL Cholesterol Direct 03/20/20 03/20/20 03/21/20 17:16 22:08 04:44 WBC RBC Hgb Hct MCHC RDW Lymph % (Auto) [place] % (Auto) [place] # Seg Neutrophils % Seg Neuts % (Manual) Lymphocytes % (Manual) Nucleated RBC % Seg Neutrophils # Seg Neutrophils # Man Lymphocytes # (Manual) Monocytes # (Manual) Eosinophils # (Manual) PT INR Heparin Anti-Xa Level ABG pH ABG pO2 ABG HCO3 ABG O2 Saturation ABG Base Excess ABG Hemoglobin Oxyhemoglobin Sodium 136 L Potassium Chloride Carbon Dioxide 18 L BUN 26 H Creatinine Glucose 266 H POC Glucose 327 H 292 H Hemoglobin A1c Calcium 8.1 L Ferritin AST ALT Alkaline Phosphatase Total Creatine Kinase CK-MB (CK-2) CK-MB (CK-2) Rel Index Troponin T Total Protein Albumin Triglycerides LDL Cholesterol Direct 03/21/20 03/21/20 03/21/20 07:50 12:25 15:53 WBC RBC Hgb Hct MCHC RDW Lymph % (Auto) [place] % (Auto) [place] # Seg Neutrophils % Seg Neuts % (Manual) Lymphocytes % (Manual) Nucleated RBC % Seg Neutrophils # Seg Neutrophils # Man Lymphocytes # (Manual) Monocytes # (Manual) Eosinophils # (Manual) PT INR Heparin Anti-Xa Level ABG pH ABG pO2 ABG HCO3 ABG O2 Saturation ABG Base Excess ABG Hemoglobin Oxyhemoglobin Sodium Potassium Chloride Carbon Dioxide BUN Creatinine Glucose POC Glucose 271 H 314 H 436 H Hemoglobin A1c Calcium Ferritin AST ALT Alkaline Phosphatase Total Creatine Kinase CK-MB (CK-2) CK-MB (CK-2) Rel Index Troponin T Total Protein Albumin Triglycerides LDL Cholesterol Direct 03/21/20 03/21/20 03/22/20 17:44 21:55 04:33 WBC RBC Hgb 10.0 L Hct 29.4 L MCHC RDW Lymph % (Auto) [place] % (Auto) [place] # Seg Neutrophils % Seg Neuts % (Manual) Lymphocytes % (Manual) Nucleated RBC % Seg Neutrophils # Seg Neutrophils # Man Lymphocytes # (Manual) Monocytes # (Manual) Eosinophils # (Manual) PT INR Heparin Anti-Xa Level ABG pH ABG pO2 ABG HCO3 ABG O2 Saturation ABG Base Excess ABG Hemoglobin Oxyhemoglobin Sodium Potassium Chloride Carbon Dioxide BUN Creatinine Glucose POC Glucose 362 H 329 H Hemoglobin A1c Calcium Ferritin AST ALT Alkaline Phosphatase Total Creatine Kinase CK-MB (CK-2) CK-MB (CK-2) Rel Index Troponin T Total Protein Albumin Triglycerides LDL Cholesterol Direct 03/22/20 03/22/20 03/22/20 08:57 14:12 19:57 WBC RBC Hgb Hct MCHC RDW Lymph % (Auto) [place] % (Auto) [place] # Seg Neutrophils % Seg Neuts % (Manual) Lymphocytes % (Manual) Nucleated RBC % Seg Neutrophils # Seg Neutrophils # Man Lymphocytes # (Manual) Monocytes # (Manual) Eosinophils # (Manual) PT INR Heparin Anti-Xa Level ABG pH ABG pO2 ABG HCO3 ABG O2 Saturation ABG Base Excess ABG Hemoglobin Oxyhemoglobin Sodium Potassium Chloride Carbon Dioxide BUN Creatinine Glucose POC Glucose 284 H 319 H 356 H Hemoglobin A1c Calcium Ferritin AST ALT Alkaline Phosphatase Total Creatine Kinase CK-MB (CK-2) CK-MB (CK-2) Rel Index Troponin T Total Protein Albumin Triglycerides LDL Cholesterol Direct 03/22/20 03/23/20 03/23/20 21:44 08:18 12:46 WBC RBC Hgb Hct MCHC RDW Lymph % (Auto) [place] % (Auto) [place] # Seg Neutrophils % Seg Neuts % (Manual) Lymphocytes % (Manual) Nucleated RBC % Seg Neutrophils # Seg Neutrophils # Man Lymphocytes # (Manual) Monocytes # (Manual) Eosinophils # (Manual) PT INR Heparin Anti-Xa Level ABG pH ABG pO2 ABG HCO3 ABG O2 Saturation ABG Base Excess ABG Hemoglobin Oxyhemoglobin Sodium Potassium Chloride Carbon Dioxide BUN Creatinine Glucose POC Glucose 336 H 215 H 262 H Hemoglobin A1c Calcium Ferritin AST ALT Alkaline Phosphatase Total Creatine Kinase CK-MB (CK-2) CK-MB (CK-2) Rel Index Troponin T Total Protein Albumin Triglycerides LDL Cholesterol Direct 03/23/20 03/23/20 03/24/20 15:56 22:05 02:35 WBC RBC Hgb 9.0 L Hct 25.8 L MCHC RDW Lymph % (Auto) [place] % (Auto) [place] # Seg Neutrophils % Seg Neuts % (Manual) Lymphocytes % (Manual) Nucleated RBC % Seg Neutrophils # Seg Neutrophils # Man Lymphocytes # (Manual) Monocytes # (Manual) Eosinophils # (Manual) PT INR Heparin Anti-Xa Level ABG pH ABG pO2 ABG HCO3 ABG O2 Saturation ABG Base Excess ABG Hemoglobin Oxyhemoglobin Sodium Potassium Chloride Carbon Dioxide BUN Creatinine Glucose POC Glucose 246 H 322 H Hemoglobin A1c Calcium Ferritin AST ALT Alkaline Phosphatase Total Creatine Kinase CK-MB (CK-2) CK-MB (CK-2) Rel Index Troponin T Total Protein Albumin Triglycerides LDL Cholesterol Direct 03/24/20 03/24/20 03/24/20 07:38 11:45 16:02 WBC RBC Hgb Hct MCHC RDW Lymph % (Auto) [place] % (Auto) [place] # Seg Neutrophils % Seg Neuts % (Manual) Lymphocytes % (Manual) Nucleated RBC % Seg Neutrophils # Seg Neutrophils # Man Lymphocytes # (Manual) Monocytes # (Manual) Eosinophils # (Manual) PT INR Heparin Anti-Xa Level ABG pH ABG pO2 ABG HCO3 ABG O2 Saturation ABG Base Excess ABG Hemoglobin Oxyhemoglobin Sodium Potassium Chloride Carbon Dioxide BUN Creatinine Glucose POC Glucose 289 H 257 H 150 H Hemoglobin A1c Calcium Ferritin AST ALT Alkaline Phosphatase Total Creatine Kinase CK-MB (CK-2) CK-MB (CK-2) Rel Index Troponin T Total Protein Albumin Triglycerides LDL Cholesterol Direct 03/24/20 03/25/20 03/25/20 21:24 04:06 07:39 WBC RBC Hgb Hct MCHC RDW Lymph % (Auto) [place] % (Auto) [place] # Seg Neutrophils % Seg Neuts % (Manual) Lymphocytes % (Manual) Nucleated RBC % Seg Neutrophils # Seg Neutrophils # Man Lymphocytes # (Manual) Monocytes # (Manual) Eosinophils # (Manual) PT INR Heparin Anti-Xa Level 0.10 L ABG pH ABG pO2 ABG HCO3 ABG O2 Saturation ABG Base Excess ABG Hemoglobin Oxyhemoglobin Sodium Potassium Chloride Carbon Dioxide BUN Creatinine Glucose POC Glucose 228 H 332 H Hemoglobin A1c Calcium Ferritin AST ALT Alkaline Phosphatase Total Creatine Kinase CK-MB (CK-2) CK-MB (CK-2) Rel Index Troponin T Total Protein Albumin Triglycerides LDL Cholesterol Direct 03/25/20 03/25/20 03/25/20 08:13 09:30 11:59 WBC 13.1 H RBC 2.82 L Hgb 8.5 L Hct 26.1 L MCHC RDW Lymph % (Auto) [place] % (Auto) [place] # Seg Neutrophils % Seg Neuts % (Manual) Lymphocytes % (Manual) Nucleated RBC % Seg Neutrophils # Seg Neutrophils # Man Lymphocytes # (Manual) Monocytes # (Manual) Eosinophils # (Manual) PT INR Heparin Anti-Xa Level ABG pH ABG pO2 ABG HCO3 ABG O2 Saturation ABG Base Excess ABG Hemoglobin Oxyhemoglobin Sodium 131 L Potassium 5.3 H Chloride Carbon Dioxide 20 L BUN 39 H Creatinine 1.4 H Glucose 313 H POC Glucose 273 H Hemoglobin A1c Calcium 8.1 L Ferritin AST ALT Alkaline Phosphatase Total Creatine Kinase CK-MB (CK-2) CK-MB (CK-2) Rel Index Troponin T Total Protein Albumin Triglycerides LDL Cholesterol Direct 03/25/20 03/25/20 03/25/20 13:54 15:58 18:21 WBC RBC Hgb Hct MCHC RDW Lymph % (Auto) [place] % (Auto) [place] # Seg Neutrophils % Seg Neuts % (Manual) Lymphocytes % (Manual) Nucleated RBC % Seg Neutrophils # Seg Neutrophils # Man Lymphocytes # (Manual) Monocytes # (Manual) Eosinophils # (Manual) PT INR Heparin Anti-Xa Level ABG pH ABG pO2 ABG HCO3 ABG O2 Saturation ABG Base Excess ABG Hemoglobin Oxyhemoglobin Sodium Potassium Chloride Carbon Dioxide BUN Creatinine Glucose POC Glucose 246 H 235 H 185 H Hemoglobin A1c Calcium Ferritin AST ALT Alkaline Phosphatase Total Creatine Kinase CK-MB (CK-2) CK-MB (CK-2) Rel Index Troponin T Total Protein Albumin Triglycerides LDL Cholesterol Direct 03/25/20 03/26/20 03/26/20 20:45 05:15 06:59 WBC 17.4 H 15.6 H RBC 3.05 L 3.05 L Hgb 9.1 L 9.2 L Hct 28.2 L 27.9 L MCHC RDW Lymph % (Auto) 8.9 L 8.9 L [place] % (Auto) [place] # 1.0 H Seg Neutrophils % 84.4 H 84.8 H Seg Neuts % (Manual) Lymphocytes % (Manual) Nucleated RBC % Seg Neutrophils # 14.7 H 13.2 H Seg Neutrophils # Man Lymphocytes # (Manual) Monocytes # (Manual) Eosinophils # (Manual) PT INR Heparin Anti-Xa Level ABG pH ABG pO2 ABG HCO3 ABG O2 Saturation ABG Base Excess ABG Hemoglobin Oxyhemoglobin Sodium Potassium Chloride Carbon Dioxide BUN Creatinine Glucose POC Glucose 178 H Hemoglobin A1c Calcium Ferritin AST ALT Alkaline Phosphatase Total Creatine Kinase CK-MB (CK-2) CK-MB (CK-2) Rel Index Troponin T Total Protein Albumin Triglycerides LDL Cholesterol Direct 03/26/20 03/26/20 03/26/20 06:59 07:43 11:56 WBC RBC Hgb Hct MCHC RDW Lymph % (Auto) [place] % (Auto) [place] # Seg Neutrophils % Seg Neuts % (Manual) Lymphocytes % (Manual) Nucleated RBC % Seg Neutrophils # Seg Neutrophils # Man Lymphocytes # (Manual) Monocytes # (Manual) Eosinophils # (Manual) PT INR Heparin Anti-Xa Level ABG pH ABG pO2 ABG HCO3 ABG O2 Saturation ABG Base Excess ABG Hemoglobin Oxyhemoglobin Sodium 131 L Potassium 5.8 H Chloride Carbon Dioxide 16 L BUN 42 H Creatinine 1.4 H Glucose 163 H POC Glucose 170 H 198 H Hemoglobin A1c Calcium 8.0 L Ferritin AST ALT Alkaline Phosphatase Total Creatine Kinase CK-MB (CK-2) CK-MB (CK-2) Rel Index Troponin T Total Protein Albumin Triglycerides LDL Cholesterol Direct 03/26/20 03/26/20 03/26/20 13:58 16:16 21:00 WBC RBC Hgb Hct MCHC RDW Lymph % (Auto) [place] % (Auto) [place] # Seg Neutrophils % Seg Neuts % (Manual) Lymphocytes % (Manual) Nucleated RBC % Seg Neutrophils # Seg Neutrophils # Man Lymphocytes # (Manual) Monocytes # (Manual) Eosinophils # (Manual) PT INR Heparin Anti-Xa Level ABG pH ABG pO2 ABG HCO3 ABG O2 Saturation ABG Base Excess ABG Hemoglobin Oxyhemoglobin Sodium 128 L Potassium 6.0 H Chloride Carbon Dioxide 15 L BUN 45 H Creatinine 1.4 H Glucose 190 H POC Glucose 184 H 192 H Hemoglobin A1c Calcium 8.2 L Ferritin AST ALT Alkaline Phosphatase Total Creatine Kinase CK-MB (CK-2) CK-MB (CK-2) Rel Index Troponin T Total Protein Albumin Triglycerides LDL Cholesterol Direct 03/27/20 03/27/20 03/27/20 08:32 11:51 14:39 WBC 22.9 H RBC 2.68 L Hgb 7.9 L Hct 24.7 L MCHC RDW Lymph % (Auto) [place] % (Auto) [place] # Seg Neutrophils % Seg Neuts % (Manual) Lymphocytes % (Manual) Nucleated RBC % Seg Neutrophils # Seg Neutrophils # Man Lymphocytes # (Manual) Monocytes # (Manual) Eosinophils # (Manual) PT INR Heparin Anti-Xa Level ABG pH ABG pO2 ABG HCO3 ABG O2 Saturation ABG Base Excess ABG Hemoglobin Oxyhemoglobin Sodium Potassium Chloride Carbon Dioxide BUN Creatinine Glucose POC Glucose 233 H 252 H Hemoglobin A1c Calcium Ferritin AST ALT Alkaline Phosphatase Total Creatine Kinase CK-MB (CK-2) CK-MB (CK-2) Rel Index Troponin T Total Protein Albumin Triglycerides LDL Cholesterol Direct 03/27/20 03/27/20 03/27/20 14:39 15:19 21:35 WBC RBC Hgb Hct MCHC RDW Lymph % (Auto) [place] % (Auto) [place] # Seg Neutrophils % Seg Neuts % (Manual) Lymphocytes % (Manual) Nucleated RBC % Seg Neutrophils # Seg Neutrophils # Man Lymphocytes # (Manual) Monocytes # (Manual) Eosinophils # (Manual) PT INR Heparin Anti-Xa Level ABG pH ABG pO2 ABG HCO3 ABG O2 Saturation ABG Base Excess ABG Hemoglobin Oxyhemoglobin Sodium 133 L Potassium 5.5 H Chloride Carbon Dioxide 16 L BUN 46 H Creatinine 1.4 H Glucose 225 H POC Glucose 239 H 202 H Hemoglobin A1c Calcium 8.2 L Ferritin AST ALT Alkaline Phosphatase Total Creatine Kinase CK-MB (CK-2) CK-MB (CK-2) Rel Index Troponin T Total Protein Albumin Triglycerides LDL Cholesterol Direct 03/28/20 03/28/20 03/28/20 07:39 07:39 08:36 WBC 22.4 H RBC 2.71 L Hgb 7.9 L Hct 24.5 L MCHC RDW Lymph % (Auto) [place] % (Auto) [place] # Seg Neutrophils % Seg Neuts % (Manual) 88.0 H Lymphocytes % (Manual) 5.0 L Nucleated RBC % Seg Neutrophils # Seg Neutrophils # Man 19.7 H Lymphocytes # (Manual) 1.1 L Monocytes # (Manual) 1.6 H Eosinophils # (Manual) PT INR Heparin Anti-Xa Level ABG pH ABG pO2 ABG HCO3 ABG O2 Saturation ABG Base Excess ABG Hemoglobin Oxyhemoglobin Sodium 134 L Potassium Chloride Carbon Dioxide 19 L BUN 47 H Creatinine Glucose 240 H POC Glucose 253 H Hemoglobin A1c Calcium 7.8 L Ferritin AST ALT Alkaline Phosphatase Total Creatine Kinase CK-MB (CK-2) CK-MB (CK-2) Rel Index Troponin T Total Protein Albumin Triglycerides LDL Cholesterol Direct 03/28/20 03/28/20 03/28/20 11:54 17:08 21:17 WBC RBC Hgb Hct MCHC RDW Lymph % (Auto) [place] % (Auto) [place] # Seg Neutrophils % Seg Neuts % (Manual) Lymphocytes % (Manual) Nucleated RBC % Seg Neutrophils # Seg Neutrophils # Man Lymphocytes # (Manual) Monocytes # (Manual) Eosinophils # (Manual) PT INR Heparin Anti-Xa Level ABG pH ABG pO2 ABG HCO3 ABG O2 Saturation ABG Base Excess ABG Hemoglobin Oxyhemoglobin Sodium Potassium Chloride Carbon Dioxide BUN Creatinine Glucose POC Glucose 306 H 178 H 186 H Hemoglobin A1c Calcium Ferritin AST ALT Alkaline Phosphatase Total Creatine Kinase CK-MB (CK-2) CK-MB (CK-2) Rel Index Troponin T Total Protein Albumin Triglycerides LDL Cholesterol Direct 03/29/20 03/29/20 03/29/20 08:32 12:04 14:19 WBC 21.5 H RBC 2.82 L Hgb 8.4 L Hct 26.1 L MCHC RDW Lymph % (Auto) [place] % (Auto) [place] # Seg Neutrophils % Seg Neuts % (Manual) 85.0 H Lymphocytes % (Manual) 11.0 L Nucleated RBC % 3.0 H Seg Neutrophils # Seg Neutrophils # Man 18.3 H Lymphocytes # (Manual) Monocytes # (Manual) Eosinophils # (Manual) 0.6 H PT INR Heparin Anti-Xa Level ABG pH ABG pO2 ABG HCO3 ABG O2 Saturation ABG Base Excess ABG Hemoglobin Oxyhemoglobin Sodium Potassium Chloride Carbon Dioxide BUN Creatinine Glucose POC Glucose 110 H 263 H Hemoglobin A1c Calcium Ferritin AST ALT Alkaline Phosphatase Total Creatine Kinase CK-MB (CK-2) CK-MB (CK-2) Rel Index Troponin T Total Protein Albumin Triglycerides LDL Cholesterol Direct 03/29/20 03/29/20 03/30/20 16:17 22:57 11:00 WBC RBC Hgb Hct MCHC RDW Lymph % (Auto) [place] % (Auto) [place] # Seg Neutrophils % Seg Neuts % (Manual) Lymphocytes % (Manual) Nucleated RBC % Seg Neutrophils # Seg Neutrophils # Man Lymphocytes # (Manual) Monocytes # (Manual) Eosinophils # (Manual) PT INR Heparin Anti-Xa Level ABG pH ABG pO2 ABG HCO3 ABG O2 Saturation ABG Base Excess ABG Hemoglobin Oxyhemoglobin Sodium Potassium Chloride Carbon Dioxide BUN Creatinine Glucose POC Glucose 109 H 194 H 129 H Hemoglobin A1c Calcium Ferritin AST ALT Alkaline Phosphatase Total Creatine Kinase CK-MB (CK-2) CK-MB (CK-2) Rel Index Troponin T Total Protein Albumin Triglycerides LDL Cholesterol Direct 03/30/20 03/30/20 03/31/20 15:16 21:54 04:27 WBC 15.8 H RBC 2.62 L Hgb 7.7 L Hct 24.1 L MCHC RDW Lymph % (Auto) 9.4 L [place] % (Auto) [place] # Seg Neutrophils % 84.4 H Seg Neuts % (Manual) Lymphocytes % (Manual) Nucleated RBC % Seg Neutrophils # 13.3 H Seg Neutrophils # Man Lymphocytes # (Manual) Monocytes # (Manual) Eosinophils # (Manual) PT INR Heparin Anti-Xa Level ABG pH ABG pO2 ABG HCO3 ABG O2 Saturation ABG Base Excess ABG Hemoglobin Oxyhemoglobin Sodium Potassium Chloride Carbon Dioxide BUN Creatinine Glucose POC Glucose 115 H 166 H Hemoglobin A1c Calcium Ferritin AST ALT Alkaline Phosphatase Total Creatine Kinase CK-MB (CK-2) CK-MB (CK-2) Rel Index Troponin T Total Protein Albumin Triglycerides LDL Cholesterol Direct 03/31/20 03/31/20 03/31/20 04:27 07:37 11:46 WBC RBC Hgb Hct MCHC RDW Lymph % (Auto) [place] % (Auto) [place] # Seg Neutrophils % Seg Neuts % (Manual) Lymphocytes % (Manual) Nucleated RBC % Seg Neutrophils # Seg Neutrophils # Man Lymphocytes # (Manual) Monocytes # (Manual) Eosinophils # (Manual) PT INR Heparin Anti-Xa Level ABG pH ABG pO2 ABG HCO3 ABG O2 Saturation ABG Base Excess ABG Hemoglobin Oxyhemoglobin Sodium 133 L Potassium Chloride 96.6 L Carbon Dioxide 18 L BUN 75 H Creatinine 2.5 H D Glucose 129 H POC Glucose 156 H 224 H Hemoglobin A1c Calcium 8.0 L Ferritin AST ALT Alkaline Phosphatase Total Creatine Kinase CK-MB (CK-2) CK-MB (CK-2) Rel Index Troponin T Total Protein Albumin Triglycerides LDL Cholesterol Direct 04/01/20 04/01/20 04/01/20 08:34 10:52 10:52 WBC 12.9 H RBC 2.75 L Hgb 8.2 L Hct 24.8 L MCHC RDW Lymph % (Auto) 10.6 L [place] % (Auto) [place] # Seg Neutrophils % 83.7 H Seg Neuts % (Manual) Lymphocytes % (Manual) Nucleated RBC % Seg Neutrophils # 10.8 H Seg Neutrophils # Man Lymphocytes # (Manual) Monocytes # (Manual) Eosinophils # (Manual) PT INR Heparin Anti-Xa Level ABG pH ABG pO2 ABG HCO3 ABG O2 Saturation ABG Base Excess ABG Hemoglobin Oxyhemoglobin Sodium 131 L Potassium Chloride 96.1 L Carbon Dioxide 17 L BUN 77 H Creatinine 2.3 H Glucose 205 H POC Glucose 110 H Hemoglobin A1c Calcium 7.9 L Ferritin AST ALT Alkaline Phosphatase Total Creatine Kinase CK-MB (CK-2) CK-MB (CK-2) Rel Index Troponin T Total Protein Albumin Triglycerides LDL Cholesterol Direct 04/01/20 04/01/20 04/01/20 12:15 17:22 20:47 WBC RBC Hgb Hct MCHC RDW Lymph % (Auto) [place] % (Auto) [place] # Seg Neutrophils % Seg Neuts % (Manual) Lymphocytes % (Manual) Nucleated RBC % Seg Neutrophils # Seg Neutrophils # Man Lymphocytes # (Manual) Monocytes # (Manual) Eosinophils # (Manual) PT INR Heparin Anti-Xa Level ABG pH ABG pO2 ABG HCO3 ABG O2 Saturation ABG Base Excess ABG Hemoglobin Oxyhemoglobin Sodium Potassium Chloride Carbon Dioxide BUN Creatinine Glucose POC Glucose 201 H 219 H 156 H Hemoglobin A1c Calcium Ferritin AST ALT Alkaline Phosphatase Total Creatine Kinase CK-MB (CK-2) CK-MB (CK-2) Rel Index Troponin T Total Protein Albumin Triglycerides LDL Cholesterol Direct 04/02/20 04/02/20 04/02/20 05:44 05:44 11:32 WBC 15.8 H RBC 2.81 L Hgb 8.2 L Hct 25.7 L MCHC RDW Lymph % (Auto) [place] % (Auto) [place] # 0.9 H Seg Neutrophils % 77.7 H Seg Neuts % (Manual) Lymphocytes % (Manual) Nucleated RBC % Seg Neutrophils # 12.3 H Seg Neutrophils # Man Lymphocytes # (Manual) Monocytes # (Manual) Eosinophils # (Manual) PT INR Heparin Anti-Xa Level ABG pH ABG pO2 ABG HCO3 ABG O2 Saturation ABG Base Excess ABG Hemoglobin Oxyhemoglobin Sodium 134 L Potassium Chloride Carbon Dioxide 19 L BUN 76 H Creatinine 2.0 H Glucose POC Glucose 116 H Hemoglobin A1c Calcium 8.0 L Ferritin AST 291 H ALT 169 H Alkaline Phosphatase 256 H Total Creatine Kinase CK-MB (CK-2) CK-MB (CK-2) Rel Index Troponin T Total Protein 6.1 L Albumin 2.2 L Triglycerides LDL Cholesterol Direct 04/02/20 04/02/20 04/03/20 16:56 22:03 08:13 WBC RBC Hgb Hct MCHC RDW Lymph % (Auto) [place] % (Auto) [place] # Seg Neutrophils % Seg Neuts % (Manual) Lymphocytes % (Manual) Nucleated RBC % Seg Neutrophils # Seg Neutrophils # Man Lymphocytes # (Manual) Monocytes # (Manual) Eosinophils # (Manual) PT INR Heparin Anti-Xa Level ABG pH ABG pO2 ABG HCO3 ABG O2 Saturation ABG Base Excess ABG Hemoglobin Oxyhemoglobin Sodium Potassium Chloride Carbon Dioxide BUN Creatinine Glucose POC Glucose 141 H 152 H 126 H Hemoglobin A1c Calcium Ferritin AST ALT Alkaline Phosphatase Total Creatine Kinase CK-MB (CK-2) CK-MB (CK-2) Rel Index Troponin T Total Protein Albumin Triglycerides LDL Cholesterol Direct 04/03/20 04/03/20 04/03/20 12:11 16:26 21:33 WBC RBC Hgb Hct MCHC RDW Lymph % (Auto) [place] % (Auto) [place] # Seg Neutrophils % Seg Neuts % (Manual) Lymphocytes % (Manual) Nucleated RBC % Seg Neutrophils # Seg Neutrophils # Man Lymphocytes # (Manual) Monocytes # (Manual) Eosinophils # (Manual) PT INR Heparin Anti-Xa Level ABG pH ABG pO2 ABG HCO3 ABG O2 Saturation ABG Base Excess ABG Hemoglobin Oxyhemoglobin Sodium Potassium Chloride Carbon Dioxide BUN Creatinine Glucose POC Glucose 139 H 164 H 147 H Hemoglobin A1c Calcium Ferritin AST ALT Alkaline Phosphatase Total Creatine Kinase CK-MB (CK-2) CK-MB (CK-2) Rel Index Troponin T Total Protein Albumin Triglycerides LDL Cholesterol Direct 04/04/20 04/04/20 04/04/20 04:29 04:29 11:29 WBC 12.3 H RBC 2.88 L Hgb 8.4 L Hct 26.1 L MCHC RDW Lymph % (Auto) [place] % (Auto) [place] # Seg Neutrophils % 75.4 H Seg Neuts % (Manual) Lymphocytes % (Manual) Nucleated RBC % Seg Neutrophils # 9.3 H Seg Neutrophils # Man Lymphocytes # (Manual) Monocytes # (Manual) Eosinophils # (Manual) PT INR Heparin Anti-Xa Level ABG pH ABG pO2 ABG HCO3 ABG O2 Saturation ABG Base Excess ABG Hemoglobin Oxyhemoglobin Sodium 136 L Potassium Chloride Carbon Dioxide 19 L BUN 71 H Creatinine 1.7 H Glucose POC Glucose 108 H Hemoglobin A1c Calcium 8.0 L Ferritin AST 673 H ALT 252 H Alkaline Phosphatase 311 H Total Creatine Kinase CK-MB (CK-2) CK-MB (CK-2) Rel Index Troponin T Total Protein Albumin 2.2 L Triglycerides LDL Cholesterol Direct 04/04/20 04/04/20 04/05/20 16:34 20:58 03:54 WBC 13.7 H RBC 3.03 L Hgb 8.7 L Hct 27.9 L MCHC 31 L RDW 15.5 H Lymph % (Auto) [place] % (Auto) [place] # Seg Neutrophils % 78.9 H Seg Neuts % (Manual) Lymphocytes % (Manual) Nucleated RBC % Seg Neutrophils # 10.8 H Seg Neutrophils # Man Lymphocytes # (Manual) Monocytes # (Manual) Eosinophils # (Manual) PT INR Heparin Anti-Xa Level ABG pH ABG pO2 ABG HCO3 ABG O2 Saturation ABG Base Excess ABG Hemoglobin Oxyhemoglobin Sodium Potassium Chloride Carbon Dioxide BUN Creatinine Glucose POC Glucose 151 H 131 H Hemoglobin A1c Calcium Ferritin AST ALT Alkaline Phosphatase Total Creatine Kinase CK-MB (CK-2) CK-MB (CK-2) Rel Index Troponin T Total Protein Albumin Triglycerides LDL Cholesterol Direct 04/05/20 04/05/20 04/05/20 03:54 15:58 15:58 WBC RBC Hgb Hct MCHC RDW Lymph % (Auto) [place] % (Auto) [place] # Seg Neutrophils % Seg Neuts % (Manual) Lymphocytes % (Manual) Nucleated RBC % Seg Neutrophils # Seg Neutrophils # Man Lymphocytes # (Manual) Monocytes # (Manual) Eosinophils # (Manual) PT INR Heparin Anti-Xa Level ABG pH ABG pO2 67.1 L ABG HCO3 26.1 H ABG O2 Saturation 93.4 L ABG Base Excess ABG Hemoglobin 9.0 L Oxyhemoglobin 91.6 L Sodium 136 L Potassium 5.5 H Chloride Carbon Dioxide 21 L BUN 79 H Creatinine 1.9 H Glucose 63 L POC Glucose 129 H Hemoglobin A1c Calcium 8.2 L Ferritin AST 696 H ALT 262 H Alkaline Phosphatase 325 H Total Creatine Kinase CK-MB (CK-2) CK-MB (CK-2) Rel Index Troponin T Total Protein Albumin 2.3 L Triglycerides LDL Cholesterol Direct 04/05/20 04/06/20 04/06/20 22:33 07:14 07:14 WBC RBC Hgb Hct MCHC RDW Lymph % (Auto) [place] % (Auto) [place] # Seg Neutrophils % Seg Neuts % (Manual) Lymphocytes % (Manual) Nucleated RBC % Seg Neutrophils # Seg Neutrophils # Man Lymphocytes # (Manual) Monocytes # (Manual) Eosinophils # (Manual) PT INR Heparin Anti-Xa Level ABG pH ABG pO2 ABG HCO3 ABG O2 Saturation ABG Base Excess ABG Hemoglobin Oxyhemoglobin Sodium Potassium 5.6 H Chloride Carbon Dioxide BUN 83 H Creatinine 1.9 H Glucose 202 H POC Glucose 253 H Hemoglobin A1c Calcium Ferritin 444.2 H AST 469 H ALT 237 H Alkaline Phosphatase 332 H Total Creatine Kinase CK-MB (CK-2) CK-MB (CK-2) Rel Index Troponin T Total Protein Albumin 2.2 L Triglycerides LDL Cholesterol Direct 04/06/20 04/06/20 04/06/20 08:23 12:00 13:56 WBC RBC Hgb Hct MCHC RDW Lymph % (Auto) [place] % (Auto) [place] # Seg Neutrophils % Seg Neuts % (Manual) Lymphocytes % (Manual) Nucleated RBC % Seg Neutrophils # Seg Neutrophils # Man Lymphocytes # (Manual) Monocytes # (Manual) Eosinophils # (Manual) PT 27.0 H INR 2.44 H Heparin Anti-Xa Level ABG pH ABG pO2 ABG HCO3 ABG O2 Saturation ABG Base Excess ABG Hemoglobin Oxyhemoglobin Sodium Potassium Chloride Carbon Dioxide BUN Creatinine Glucose POC Glucose 226 H 176 H Hemoglobin A1c Calcium Ferritin AST ALT Alkaline Phosphatase Total Creatine Kinase CK-MB (CK-2) CK-MB (CK-2) Rel Index Troponin T Total Protein Albumin Triglycerides LDL Cholesterol Direct 04/06/20 04/07/20 04/07/20 20:45 04:58 04:58 WBC RBC Hgb Hct MCHC RDW Lymph % (Auto) [place] % (Auto) [place] # Seg Neutrophils % Seg Neuts % (Manual) Lymphocytes % (Manual) Nucleated RBC % Seg Neutrophils # Seg Neutrophils # Man Lymphocytes # (Manual) Monocytes # (Manual) Eosinophils # (Manual) PT 30.9 H INR 2.89 H Heparin Anti-Xa Level ABG pH ABG pO2 ABG HCO3 ABG O2 Saturation ABG Base Excess ABG Hemoglobin Oxyhemoglobin Sodium Potassium 6.0 H Chloride Carbon Dioxide BUN 85 H Creatinine 2.1 H Glucose 177 H POC Glucose 139 H Hemoglobin A1c Calcium Ferritin AST 351 H ALT 215 H Alkaline Phosphatase 332 H Total Creatine Kinase CK-MB (CK-2) CK-MB (CK-2) Rel Index Troponin T Total Protein Albumin 2.7 L Triglycerides LDL Cholesterol Direct 04/07/20 04/07/20 04/08/20 07:53 11:51 04:44 WBC 11.7 H RBC 3.07 L Hgb 9.1 L Hct 28.9 L MCHC RDW 16.8 H Lymph % (Auto) 12.4 L [place] % (Auto) [place] # Seg Neutrophils % 83.3 H Seg Neuts % (Manual) Lymphocytes % (Manual) Nucleated RBC % Seg Neutrophils # 9.7 H Seg Neutrophils # Man Lymphocytes # (Manual) Monocytes # (Manual) Eosinophils # (Manual) PT INR Heparin Anti-Xa Level ABG pH ABG pO2 ABG HCO3 ABG O2 Saturation ABG Base Excess ABG Hemoglobin Oxyhemoglobin Sodium Potassium Chloride Carbon Dioxide BUN Creatinine Glucose POC Glucose 167 H 120 H Hemoglobin A1c Calcium Ferritin AST ALT Alkaline Phosphatase Total Creatine Kinase CK-MB (CK-2) CK-MB (CK-2) Rel Index Troponin T Total Protein Albumin Triglycerides LDL Cholesterol Direct 04/08/20 04/08/20 04/08/20 04:44 07:19 08:43 WBC RBC Hgb Hct MCHC RDW Lymph % (Auto) [place] % (Auto) [place] # Seg Neutrophils % Seg Neuts % (Manual) Lymphocytes % (Manual) Nucleated RBC % Seg Neutrophils # Seg Neutrophils # Man Lymphocytes # (Manual) Monocytes # (Manual) Eosinophils # (Manual) PT INR Heparin Anti-Xa Level ABG pH ABG pO2 ABG HCO3 ABG O2 Saturation ABG Base Excess ABG Hemoglobin Oxyhemoglobin Sodium Potassium 6.3 H* Chloride Carbon Dioxide 21 L BUN 89 H Creatinine 1.9 H Glucose 63 L POC Glucose 65 L 168 H Hemoglobin A1c Calcium Ferritin AST 370 H ALT 211 H Alkaline Phosphatase 320 H Total Creatine Kinase CK-MB (CK-2) CK-MB (CK-2) Rel Index Troponin T Total Protein Albumin 2.6 L Triglycerides LDL Cholesterol Direct 04/08/20 04/08/20 04/08/20 12:53 16:38 21:47 WBC RBC Hgb Hct MCHC RDW Lymph % (Auto) [place] % (Auto) [place] # Seg Neutrophils % Seg Neuts % (Manual) Lymphocytes % (Manual) Nucleated RBC % Seg Neutrophils # Seg Neutrophils # Man Lymphocytes # (Manual) Monocytes # (Manual) Eosinophils # (Manual) PT INR Heparin Anti-Xa Level ABG pH ABG pO2 ABG HCO3 ABG O2 Saturation ABG Base Excess ABG Hemoglobin Oxyhemoglobin Sodium Potassium 6.0 H Chloride Carbon Dioxide BUN 90 H Creatinine 2.1 H Glucose 124 H POC Glucose 129 H 118 H Hemoglobin A1c Calcium Ferritin AST ALT Alkaline Phosphatase Total Creatine Kinase CK-MB (CK-2) CK-MB (CK-2) Rel Index Troponin T Total Protein Albumin Triglycerides LDL Cholesterol Direct 04/09/20 04/09/20 03:45 08:04 WBC RBC Hgb Hct MCHC RDW Lymph % (Auto) [place] % (Auto) [place] # Seg Neutrophils % Seg Neuts % (Manual) Lymphocytes % (Manual) Nucleated RBC % Seg Neutrophils # Seg Neutrophils # Man Lymphocytes # (Manual) Monocytes # (Manual) Eosinophils # (Manual) PT INR Heparin Anti-Xa Level ABG pH 7.304 L ABG pO2 72.2 L ABG HCO3 ABG O2 Saturation 93.7 L ABG Base Excess -3.3 L ABG Hemoglobin 8.9 L Oxyhemoglobin 91.8 L Sodium Potassium 6.6 H* Chloride Carbon Dioxide BUN 99 H Creatinine 2.2 H Glucose POC Glucose Hemoglobin A1c Calcium 8.2 L Ferritin AST ALT Alkaline Phosphatase Total Creatine Kinase CK-MB (CK-2) CK-MB (CK-2) Rel Index Troponin T Total Protein Albumin Triglycerides LDL Cholesterol Direct Allied health notes reviewed: nursing
[2020-04-09] MEDS: [UNRECOGNIZED DRUG - REMARK] SUB-Q SCH ×4 (10:19→23:05)
[2020-04-09] MEDS: CEFEPIME/NS 1 GM/100 ML 1 GM/100 ML BAG IV SCH ×2 (10:29→21:15)
--- NOTE | 2020-04-09 12:01 | Progress Note ---
Assessment and Plan 54 year old male with multiple medical issues including multiple venous thrombotic events, active smoking, and elevated troponins who originally presents with ischemic left lower extremity with percutaneous thromboembolectomy with left fasciotomies ultimately converted to left BKA. The BKA is having serous drainage with fibrinous debris at the margins. Arterial Doppler demonstrates preserved flow to the left lower extremity. I suspect this is due to global issues with resultant fluid overload which is then draining through the left lower extremity BKA suture line. If global medical issues are improved then this should also allow the BKA to heal better. There may also be a concurrent mild infection occurring due to the saturated dressings which is being treated by infectious disease. Continue wound care. Continue medical optimization of the patient. If this fails to improve with medical optimization of the patient, then patient may ultimately require wound VAC to control drainage. Subjective Date of service: 04/09/20 Principal diagnosis: Acute limb ischemia; STARR; COPD; Ac hypoxemic resp failure; DM II; NSTEMI Interval history: On BiPAP, altered. Left leg is warm and left stump is warm. Right leg is warm to the calf and then becomes cooler. Has CVA in left side of head. Left BKA staple line continues to have serous drainage. Objective - Constitutional Vitals: Vital Signs - 12hr 04/09/20 04/09/20 04/09/20 04:10 07:07 07:11 Pulse Rate 75 68 Pulse Rate [ Anterior Bilateral Throughout] Respiratory 23 Rate Respiratory Rate [Anterior Bilateral Throughout] Blood Pressure 81/53 87/58 O2 Sat by Pulse 99 98 Oximetry 04/09/20 04/09/20 04/09/20 07:55 07:56 10:00 Pulse Rate 74 Pulse Rate [ 76 Anterior Bilateral Throughout] Respiratory 25 H 20 Rate Respiratory 16 Rate [Anterior Bilateral Throughout] Blood Pressure 99/65 O2 Sat by Pulse 99 Oximetry 04/09/20 10:03 Pulse Rate Pulse Rate [ Anterior Bilateral Throughout] Respiratory Rate Respiratory Rate [Anterior Bilateral Throughout] Blood Pressure 130/90 O2 Sat by Pulse Oximetry General appearance: Present: other (Altered on BiPAP) - EENT ENT: hearing intact - Respiratory Respiratory effort: other (On BiPAP) Extremities: normal temperature, normal color, abnormal (see subjective) - Psychiatric Psychiatric: other (Altered on BiPAP) - Labs CBC & Chem 7: 04/08/20 04:44 04/09/20 08:04 Labs: Abnormal lab results 04/08/20 04/08/20 04/08/20 Range/Units 12:53 16:38 21:47 ABG pH (7.350-7.450) pH Units ABG pO2 (80.0-90.0) mm Hg ABG O2 Saturation (95.0-99.0) % ABG Base Excess (-2.0-3.0) mmol/L ABG Hemoglobin (14.0-18.0) gm/dl Oxyhemoglobin (95.0-99.0) % Potassium 6.0 H (3.6-5.0) mmol/L BUN 90 H (9-20) mg/dL Creatinine 2.1 H (0.8-1.3) mg/dL Glucose 124 H (75-100) mg/dL POC Glucose 129 H 118 H (70-105) Calcium (8.4-10.2) mg/dL 04/09/20 04/09/20 Range/Units 03:45 08:04 ABG pH 7.304 L (7.350-7.450) pH Units ABG pO2 72.2 L (80.0-90.0) mm Hg ABG O2 Saturation 93.7 L (95.0-99.0) % ABG Base Excess -3.3 L (-2.0-3.0) mmol/L ABG Hemoglobin 8.9 L (14.0-18.0) gm/dl Oxyhemoglobin 91.8 L (95.0-99.0) % Potassium 6.6 H* (3.6-5.0) mmol/L BUN 99 H (9-20) mg/dL Creatinine 2.2 H (0.8-1.3) mg/dL Glucose (75-100) mg/dL POC Glucose (70-105) Calcium 8.2 L (8.4-10.2) mg/dL Medications & Allergies - Medications Allergies/Adverse Reactions: Allergies No Known Allergies Allergy (Unverified 03/18/20 15:17) Home Medications: Home Medications Medication Instructions Recorded Confirmed Last Taken Type AtorvaSTATin [Lipitor] 20 mg PO QHS 03/20/20 03/20/20 03/14/20 History Clopidogrel [Plavix] 75 mg PO QHS 03/20/20 03/20/20 03/14/20 History Famotidine [Acid Controller] 20 mg PO BID 03/20/20 03/20/20 03/14/20 History Fenofibrate Nanocrystallized 48 mg PO DAILY 03/20/20 03/20/20 03/14/20 History [Fenofibrate] Metoprolol Tartrate 25 mg PO BID 03/20/20 03/20/20 03/14/20 History Pregabalin [Lyrica] 150 mg PO BID 03/20/20 03/20/20 03/14/20 History amLODIPine [Norvasc] 5 mg PO DAILY 03/20/20 03/20/20 03/14/20 History glipiZIDE [Glucotrol] 10 mg PO BID 03/20/20 03/20/20 03/14/20 History hydroCHLOROthiazide [HCTZ] 25 mg PO QDAY 03/20/20 03/20/20 03/14/20 History lisinopriL [Zestril TAB] 40 mg PO QDAY 03/20/20 03/20/20 03/14/20 History Active Medications: Generic Name Dose Route Start Last Admin Trade Name Freq PRN Reason Stop Dose Admin Acetaminophen/Hydrocodone Bitart 2 each 03/22/20 17:18 04/06/20 09:52 [place] 5/325 PO 2 each Q4H PRN Administration Pain, Moderate (4-6) Albuterol 2.5 mg 04/01/20 00:03 Proventil IH Q6HRT PRN Shortness Of Breath Apixaban 5 mg 03/26/20 22:00 04/08/20 22:22 Eliquis PO Not Given Q12HR LOI Protocol Arformoterol Tartrate 15 mcg 03/19/20 20:00 04/09/20 07:55 Brovana Nebu IH 15 mcg Q12HRT LOI Administration Atorvastatin Calcium 40 mg 03/19/20 22:00 04/08/20 22:23 Lipitor PO Not Given QHS LOI Budesonide 0.5 mg 03/19/20 20:00 04/09/20 07:55 Pulmicort IH 0.5 mg Q12HRT LOI Administration Clopidogrel Bisulfate 75 mg 03/19/20 10:00 04/08/20 11:20 Plavix PO 75 mg QDAY LOI Administration Dextrose 50 ml 03/18/20 22:21 04/08/20 07:42 D50w (25gm) Syringe IV 50 ml Q30MIN PRN Administration Hypoglycemia Protocol Diphenhydramine HCl 25 mg 03/19/20 12:44 Benadryl IV Q4H PRN Itching Furosemide 40 mg 04/06/20 06:00 04/09/20 05:37 Lasix IV 40 mg 0600,1800 LOI Administration Guaifenesin 10 ml 04/01/20 00:03 04/02/20 05:34 Guaifenesin Dm Syrup PO 10 ml Q4H PRN Administration Cough Hydromorphone/Sodium Chloride 0 mg 03/19/20 13:00 03/30/20 02:09 Dilaudid [place] Guide 6mg/30ml IV 1 cart DIRECT LOI Administration Protocol Sodium Chloride 1,000 mls @ 75 mls/hr 04/07/20 16:45 04/09/20 03:13 Nacl 0.9% 1000 Ml IV 75 mls/hr DIRECT LOI Administration Cefepime HCl 1 gm in 100 mls @ 200 mls/hr 04/08/20 13:00 04/09/20 10:29 Cefepime/Ns 1 Gm/100 Ml IV 200 mls/hr Q12HR LOI Administration Protocol Insulin Human Lispro 0 unit 03/20/20 16:30 04/09/20 10:19 Humalog SUB-Q Not Given ACHS [facility] Protocol Ipratropium [place] 0.5 mg 04/01/20 00:05 Atrovent IH Q6HRT PRN Shortness Of Breath Magnesium Hydroxide 30 ml 03/18/20 22:21 Milk Of Magnesia PO Q4H PRN Constipation Metoprolol Tartrate 50 mg 03/19/20 22:00 04/08/20 22:23 Metoprolol PO Not Given BID [facility] Naloxone HCl 0.1 mg 03/19/20 12:44 Naloxone IV Q2MIN PRN Res Rate </= 8 or 02 SAT < 92% Ondansetron HCl 4 mg 03/18/20 22:21 04/05/20 01:46 Zofran IV 4 mg Q8H PRN Administration Nausea And Vomiting Pantoprazole Sodium 40 mg 03/20/20 10:00 04/08/20 22:24 Protonix PO Not Given BID [facility] Pregabalin 150 mg 03/22/20 22:00 04/08/20 22:23 Pregabalin PO Not Given BID LOI Sodium Chloride 10 ml 03/19/20 10:00 04/08/20 22:09 Sodium Chloride Flush Syringe 10 Ml IV 10 ml BID LOI Administration Sodium Chloride 10 ml 03/18/20 22:21 04/09/20 05:37 Sodium Chloride Flush Syringe 10 Ml IV 10 ml PRN PRN Administration LINE FLUSH Zolpidem Tartrate 5 mg 03/31/20 19:09 04/05/20 22:32 Ambien PO 5 mg QHS PRN Administration Sleep HEART Score - HEART Score Troponin: Troponin T 3.200 ng/mL (0.00-0.029) H* D 03/20/20 05:12
[2020-04-09] MEDS ORDERED: DEXTROSE 50% IN WATER (25GM) 50 ML SYRINGE IV ONE ×2 (12:13→21:03)
[2020-04-09] MEDS ORDERED: INSULIN REGULAR, HUMAN 100 UNIT/ML 3ML VIAL IV ONE ×2 (12:13→21:02)
[2020-04-09] MEDS ORDERED: CALCIUM GLUCONATE 1,000 MG in SODIUM CHLORIDE 0.9% 100 ML IV ONE (12:30)
--- NOTE | 2020-04-09 14:08 | Progress Note ---
Assessment and Plan Cultures: wound culture: pending A/P: 54-year-old male with prior CVA, hypertension, diabetes, coronary artery disease, history of DVT and PE, peripheral vascular disease who was admitted to the hospital with a cold left lower extremity. He underwent a BKA on 03/25/2020: #Sepsis: L BKA stump infection v/s pneumonia. CXR 04/08/2020 with almost complete opacification of left hemithorax. . #Left BKA stump drainage: Vascular is following. No fever. Empiric antibiotics for now. Follow wound culture results. Serous drainage from Left BKA stump, ?mild cellulitis. #Peripheral vascular disease #Diabetes mellitus, uncontrolled: Maintain glycemic control #Acute kidney injury: Renally dose antibiotics #Elevated LFTs /transaminitis: Question of cholecystitis. Unable to perform a HIDA since he could not lay flat. GI and surgery following. #Acute encephalopathy: CT head with late subacute infarction in [employer] territory. Recs: continue Cefepime + Vancomycin, renally dosed, expect short course f/u wound culture follow up vascular studies Chris Brower MD, FACP [facility] ([facility] C: [phone] O: [phone] F: [phone] Subjective Date of service: 04/09/20 Principal diagnosis: Acute limb ischemia; STARR; COPD; Ac hypoxemic resp failure; DM II; NSTEMI Interval history: Patient drowsy, on BiPAP. No fever. Objective - Exam Narrative Exam: Physical Exam: Constitutional: Somnolent, can be awakened, on BiPAP Head, Ears, Nose: Normocephalic, atraumatic. External ears, nose normal Eyes: Conjunctivae/corneas clear. No icterus. No ptosis. Neck: BiPAP Cardiovascular: S1, S2 normal. Respiratory: AE reduced on L side GI: Soft, non-tender; bowel sounds normal. No peritoneal signs Musculoskeletal: Left BKA stump in dressing Skin: No rash or abscess Hem/Lymphatic: No palpable cervical or supraclavicular nodes. No lymphangitis Psych: No agitation Neurological: Somnolent, exam limited - Constitutional Vitals: Vital Signs Temp Pulse Resp BP Pulse Ox 98.1 F 74 18 91/66 99 04/09/20 09:00 04/09/20 12:24 04/09/20 12:24 04/09/20 12:24 04/09/20 12:24 Temperature -Last 24 Hours Temperature 98.1 F Temperature 97.7 F - Labs CBC & Chem 7: 04/08/20 04:44 04/09/20 08:04 Labs: Abnormal lab results 04/08/20 04/08/20 04/08/20 Range/Units 12:53 16:38 21:47 ABG pH (7.350-7.450) pH Units ABG pO2 (80.0-90.0) mm Hg ABG O2 Saturation (95.0-99.0) % ABG Base Excess (-2.0-3.0) mmol/L ABG Hemoglobin (14.0-18.0) gm/dl Oxyhemoglobin (95.0-99.0) % Potassium 6.0 H (3.6-5.0) mmol/L BUN 90 H (9-20) mg/dL Creatinine 2.1 H (0.8-1.3) mg/dL Glucose 124 H (75-100) mg/dL POC Glucose 129 H 118 H (70-105) Calcium (8.4-10.2) mg/dL 04/09/20 04/09/20 Range/Units 03:45 08:04 ABG pH 7.304 L (7.350-7.450) pH Units ABG pO2 72.2 L (80.0-90.0) mm Hg ABG O2 Saturation 93.7 L (95.0-99.0) % ABG Base Excess -3.3 L (-2.0-3.0) mmol/L ABG Hemoglobin 8.9 L (14.0-18.0) gm/dl Oxyhemoglobin 91.8 L (95.0-99.0) % Potassium 6.6 H* (3.6-5.0) mmol/L BUN 99 H (9-20) mg/dL Creatinine 2.2 H (0.8-1.3) mg/dL Glucose (75-100) mg/dL POC Glucose (70-105) Calcium 8.2 L (8.4-10.2) mg/dL
[2020-04-09] MEDS ORDERED: SODIUM POLYSTYRENE 15 GM/60 ML ORAL LIQD PR ONE ×2 (16:00→21:03)
--- NOTE | 2020-04-09 16:33 | Consultation ---
History of Present Illness Consult date: 04/09/20 Reason for Consult: Stroke Chief complaint: Stroke, altered mental status History of present illness: Patient is a 54 y/o man w/ a h/o CVA w/ no residual deficits, HTN, DM, HLD, CAD s/p CABG, h/o DVT w/ PE, COPD, STARR. He presented on 03/18/20 w/ left foot pain and discoloration. He had revascularization of left foot by vascular surgery. He was also found to have NSTEMI. 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 He later developed DYLON, transaminitis, anemia, hypotension, and sepsis. Yesterday, patient was noted to be lethargic, for which a CT head was ordered, which revealed subacute stroke in left parietal region. Past History Past Medical History: CAD, COPD, diabetes, hypertension, hyperlipidemia, other (Morbid obesity) Past Surgical History: CABG, Other (New BKA) Social history: smoking (Current every day smoker) Family history: no significant family history Medications and Allergies Allergies Allergy/AdvReac Type Severity Reaction Status Date / Time No Known Allergies Allergy Unverified 03/18/20 15:17 Home Medications Medication Instructions Recorded Confirmed Last Taken Type AtorvaSTATin [Lipitor] 20 mg PO QHS 03/20/20 03/20/20 03/14/20 History Clopidogrel [Plavix] 75 mg PO QHS 03/20/20 03/20/20 03/14/20 History Famotidine [Acid Controller] 20 mg PO BID 03/20/20 03/20/20 03/14/20 History Fenofibrate Nanocrystallized 48 mg PO DAILY 03/20/20 03/20/20 03/14/20 History [Fenofibrate] Metoprolol Tartrate 25 mg PO BID 03/20/20 03/20/20 03/14/20 History Pregabalin [Lyrica] 150 mg PO BID 03/20/20 03/20/20 03/14/20 History amLODIPine [Norvasc] 5 mg PO DAILY 03/20/20 03/20/20 03/14/20 History glipiZIDE [Glucotrol] 10 mg PO BID 03/20/20 03/20/20 03/14/20 History hydroCHLOROthiazide [HCTZ] 25 mg PO QDAY 03/20/20 03/20/20 03/14/20 History lisinopriL [Zestril TAB] 40 mg PO QDAY 03/20/20 03/20/20 03/14/20 History Active Meds: Active Medications Acetaminophen/Hydrocodone Bitart ([place] 5/325) 2 each PO Q4H PRN PRN Reason: Pain, Moderate (4-6) Last Admin: 04/06/20 09:52 Dose: 2 each Documented by: Albuterol (Proventil) 2.5 mg IH Q6HRT PRN PRN Reason: Shortness Of Breath Apixaban (Eliquis) 5 mg PO Q12HR LOI; Protocol Last Admin: 04/08/20 22:22 Dose: Not Given Documented by: Arformoterol Tartrate (Brovana Nebu) 15 mcg IH Q12HRT LOI Last Admin: 04/09/20 07:55 Dose: 15 mcg Documented by: Atorvastatin Calcium (Lipitor) 40 mg PO QHS LOI Last Admin: 04/08/20 22:23 Dose: Not Given Documented by: Budesonide (Pulmicort) 0.5 mg IH Q12HRT LOI Last Admin: 04/09/20 07:55 Dose: 0.5 mg Documented by: Clopidogrel Bisulfate (Plavix) 75 mg PO QDAY [facility] Last Admin: 04/08/20 11:20 Dose: 75 mg Documented by: Dextrose (D50w (25gm) Syringe) 50 ml IV Q30MIN PRN; Protocol PRN Reason: Hypoglycemia Last Admin: 04/08/20 07:42 Dose: 50 ml Documented by: Diphenhydramine HCl (Benadryl) 25 mg IV Q4H PRN PRN Reason: Itching Furosemide (Lasix) 40 mg IV 0600,1800 [facility] Last Admin: 04/09/20 05:37 Dose: 40 mg Documented by: Guaifenesin (Guaifenesin Dm Syrup) 10 ml PO Q4H PRN PRN Reason: Cough Last Admin: 04/02/20 05:34 Dose: 10 ml Documented by: Hydromorphone/Sodium Chloride (Dilaudid [place] 6mg/30ml) 0 mg IV DIRECT LOI; Protocol Last Admin: 03/30/20 02:09 Dose: 1 cart Documented by: Sodium Chloride (Nacl 0.9% 1000 Ml) 1,000 mls @ 75 mls/hr IV DIRECT [facility] Last Admin: 04/09/20 03:13 Dose: 75 mls/hr Documented by: Cefepime HCl (Cefepime/Ns 1 Gm/100 Ml) 1 gm in 100 mls @ 200 mls/hr IV Q12HR [facility]; Protocol Last Admin: 04/09/20 10:29 Dose: 200 mls/hr Documented by: Insulin Human Lispro (Humalog) 0 unit SUB-Q ACHS [facility]; Protocol Last Admin: 04/09/20 13:31 Dose: Not Given Documented by: Ipratropium [place] (Atrovent) 0.5 mg IH Q6HRT PRN PRN Reason: Shortness Of Breath Magnesium Hydroxide (Milk Of Magnesia) 30 ml PO Q4H PRN PRN Reason: Constipation Metoprolol Tartrate (Metoprolol) 50 mg PO BID [facility] Last Admin: 04/08/20 22:23 Dose: Not Given Documented by: Naloxone HCl (Naloxone) 0.1 mg IV Q2MIN PRN PRN Reason: Res Rate </= 8 or 02 SAT < 92% Ondansetron HCl (Zofran) 4 mg IV Q8H PRN PRN Reason: Nausea And Vomiting Last Admin: 04/05/20 01:46 Dose: 4 mg Documented by: Pantoprazole Sodium (Protonix) 40 mg PO BID [facility] Last Admin: 04/08/20 22:24 Dose: Not Given Documented by: Pregabalin (Pregabalin) 150 mg PO BID [facility] Last Admin: 04/08/20 22:23 Dose: Not Given Documented by: Sodium Chloride (Sodium Chloride Flush Syringe 10 Ml) 10 ml IV BID [facility] Last Admin: 04/09/20 13:03 Dose: 10 ml Documented by: Sodium Chloride (Sodium Chloride Flush Syringe 10 Ml) 10 ml IV PRN PRN PRN Reason: LINE FLUSH Last Admin: 04/09/20 05:37 Dose: 10 ml Documented by: Zolpidem Tartrate (Ambien) 5 mg PO QHS PRN PRN Reason: Sleep Last Admin: 04/05/20 22:32 Dose: 5 mg Documented by: Review of Systems ROS unobtainable: due to mental status Physical Examination - Vital Signs Vital Signs: Vital Signs Temp Pulse Resp BP Pulse Ox 99.5 F 121 H 20 128/88 97 03/18/20 15:18 03/18/20 15:18 03/18/20 15:18 03/18/20 15:18 03/18/20 15:18 - Physical Exam Narrative exam: Patient lethargic, makes moaning noises, otherwise non-verbal. Wearing BiPAP. Raises left arm on command. PERRL. W/d to pain on RUE/RLE but not LUE/LLE. Spontaneously moves RLE/RUE/LUE. Left BKA noted. Results - Laboratory Findings CBC and BMP: 04/08/20 04:44 04/09/20 19:10 Abnormal Lab Findings: Abnormal Labs 03/18/20 03/18/20 03/18/20 18:28 18:28 20:56 WBC 12.3 H RBC Hgb Hct MCHC RDW Lymph % (Auto) 11.0 L Ocean % (Auto) 9.8 H Ocean # 1.2 H Seg Neutrophils % 78.4 H Seg Neuts % (Manual) Lymphocytes % (Manual) Nucleated RBC % Seg Neutrophils # 9.6 H Seg Neutrophils # Man Lymphocytes # (Manual) Monocytes # (Manual) Eosinophils # (Manual) PT INR Heparin Anti-Xa Level ABG pH ABG pO2 ABG HCO3 ABG O2 Saturation ABG Base Excess ABG Hemoglobin Oxyhemoglobin Sodium 132 L Potassium Chloride 91.9 L Carbon Dioxide 20 L BUN Creatinine 1.4 H Glucose 406 H POC Glucose Hemoglobin A1c Calcium Ferritin AST ALT Alkaline Phosphatase Total Creatine Kinase 2727 H 2492 H CK-MB (CK-2) 135.9 H 107.2 H CK-MB (CK-2) Rel Index 4.3 H Troponin T 5.110 H* 3.960 H* D Total Protein Albumin Triglycerides 188 H LDL Cholesterol Direct 141 H 03/18/20 03/19/20 03/19/20 22:21 01:57 08:08 WBC RBC Hgb Hct MCHC RDW Lymph % (Auto) Ocean % (Auto) Ocean # Seg Neutrophils % Seg Neuts % (Manual) Lymphocytes % (Manual) Nucleated RBC % Seg Neutrophils # Seg Neutrophils # Man Lymphocytes # (Manual) Monocytes # (Manual) Eosinophils # (Manual) PT INR Heparin Anti-Xa Level ABG pH ABG pO2 ABG HCO3 ABG O2 Saturation ABG Base Excess ABG Hemoglobin Oxyhemoglobin Sodium Potassium Chloride Carbon Dioxide BUN Creatinine Glucose POC Glucose 317 H Hemoglobin A1c 11.0 H Calcium Ferritin AST ALT Alkaline Phosphatase Total Creatine Kinase 7255 H CK-MB (CK-2) 79.3 H CK-MB (CK-2) Rel Index Troponin T 5.540 H* D Total Protein Albumin Triglycerides LDL Cholesterol Direct 03/19/20 03/19/20 03/19/20 08:08 08:08 08:08 WBC 13.3 H RBC Hgb Hct MCHC RDW Lymph % (Auto) 10.7 L Ocean % (Auto) 8.5 H Ocean # 1.1 H Seg Neutrophils % 80.0 H Seg Neuts % (Manual) Lymphocytes % (Manual) Nucleated RBC % Seg Neutrophils # 10.6 H Seg Neutrophils # Man Lymphocytes # (Manual) Monocytes # (Manual) Eosinophils # (Manual) PT INR Heparin Anti-Xa Level 0.10 L ABG pH ABG pO2 ABG HCO3 ABG O2 Saturation ABG Base Excess ABG Hemoglobin Oxyhemoglobin Sodium 133 L Potassium 5.1 H Chloride Carbon Dioxide 17 L BUN 23 H Creatinine Glucose 313 H POC Glucose Hemoglobin A1c Calcium Ferritin AST ALT Alkaline Phosphatase Total Creatine Kinase CK-MB (CK-2) CK-MB (CK-2) Rel Index Troponin T Total Protein Albumin Triglycerides LDL Cholesterol Direct 03/19/20 03/19/20 03/19/20 15:40 18:23 21:32 WBC RBC Hgb Hct MCHC RDW Lymph % (Auto) Ocean % (Auto) Ocean # Seg Neutrophils % Seg Neuts % (Manual) Lymphocytes % (Manual) Nucleated RBC % Seg Neutrophils # Seg Neutrophils # Man Lymphocytes # (Manual) Monocytes # (Manual) Eosinophils # (Manual) PT INR Heparin Anti-Xa Level < 0.10 L ABG pH ABG pO2 ABG HCO3 18.3 L ABG O2 Saturation ABG Base Excess -5.4 L ABG Hemoglobin 12.2 L Oxyhemoglobin 94.6 L Sodium Potassium Chloride Carbon Dioxide BUN Creatinine Glucose POC Glucose 348 H Hemoglobin A1c Calcium Ferritin AST ALT Alkaline Phosphatase Total Creatine Kinase CK-MB (CK-2) CK-MB (CK-2) Rel Index Troponin T Total Protein Albumin Triglycerides LDL Cholesterol Direct 03/20/20 03/20/20 03/20/20 04:35 05:12 05:12 WBC 11.1 H RBC 3.63 L Hgb 11.0 L Hct 32.7 L D MCHC RDW Lymph % (Auto) Ocean % (Auto) 8.1 H Ocean # 0.9 H Seg Neutrophils % 75.8 H Seg Neuts % (Manual) Lymphocytes % (Manual) Nucleated RBC % Seg Neutrophils # 8.4 H Seg Neutrophils # Man Lymphocytes # (Manual) Monocytes # (Manual) Eosinophils # (Manual) PT INR Heparin Anti-Xa Level 0.28 L ABG pH ABG pO2 68.3 L ABG HCO3 ABG O2 Saturation 94.3 L ABG Base Excess ABG Hemoglobin 7.1 L Oxyhemoglobin 92.3 L Sodium Potassium Chloride Carbon Dioxide BUN Creatinine Glucose POC Glucose Hemoglobin A1c Calcium Ferritin AST ALT Alkaline Phosphatase Total Creatine Kinase CK-MB (CK-2) CK-MB (CK-2) Rel Index Troponin T Total Protein Albumin Triglycerides LDL Cholesterol Direct 03/20/20 03/20/20 03/20/20 05:12 07:49 12:15 WBC RBC Hgb Hct MCHC RDW Lymph % (Auto) Ocean % (Auto) Ocean # Seg Neutrophils % Seg Neuts % (Manual) Lymphocytes % (Manual) Nucleated RBC % Seg Neutrophils # Seg Neutrophils # Man Lymphocytes # (Manual) Monocytes # (Manual) Eosinophils # (Manual) PT INR Heparin Anti-Xa Level ABG pH ABG pO2 ABG HCO3 ABG O2 Saturation ABG Base Excess ABG Hemoglobin Oxyhemoglobin Sodium 134 L Potassium Chloride Carbon Dioxide 21 L BUN 23 H Creatinine Glucose 275 H POC Glucose 294 H 357 H Hemoglobin A1c Calcium Ferritin AST ALT Alkaline Phosphatase Total Creatine Kinase CK-MB (CK-2) CK-MB (CK-2) Rel Index Troponin T 3.200 H* D Total Protein Albumin Triglycerides LDL Cholesterol Direct 03/20/20 03/20/20 03/21/20 17:16 22:08 04:44 WBC RBC Hgb Hct MCHC RDW Lymph % (Auto) Ocean % (Auto) Ocean # Seg Neutrophils % Seg Neuts % (Manual) Lymphocytes % (Manual) Nucleated RBC % Seg Neutrophils # Seg Neutrophils # Man Lymphocytes # (Manual) Monocytes # (Manual) Eosinophils # (Manual) PT INR Heparin Anti-Xa Level ABG pH ABG pO2 ABG HCO3 ABG O2 Saturation ABG Base Excess ABG Hemoglobin Oxyhemoglobin Sodium 136 L Potassium Chloride Carbon Dioxide 18 L BUN 26 H Creatinine Glucose 266 H POC Glucose 327 H 292 H Hemoglobin A1c Calcium 8.1 L Ferritin AST ALT Alkaline Phosphatase Total Creatine Kinase CK-MB (CK-2) CK-MB (CK-2) Rel Index Troponin T Total Protein Albumin Triglycerides LDL Cholesterol Direct 03/21/20 03/21/20 03/21/20 07:50 12:25 15:53 WBC RBC Hgb Hct MCHC RDW Lymph % (Auto) Ocean % (Auto) Ocean # Seg Neutrophils % Seg Neuts % (Manual) Lymphocytes % (Manual) Nucleated RBC % Seg Neutrophils # Seg Neutrophils # Man Lymphocytes # (Manual) Monocytes # (Manual) Eosinophils # (Manual) PT INR Heparin Anti-Xa Level ABG pH ABG pO2 ABG HCO3 ABG O2 Saturation ABG Base Excess ABG Hemoglobin Oxyhemoglobin Sodium Potassium Chloride Carbon Dioxide BUN Creatinine Glucose POC Glucose 271 H 314 H 436 H Hemoglobin A1c Calcium Ferritin AST ALT Alkaline Phosphatase Total Creatine Kinase CK-MB (CK-2) CK-MB (CK-2) Rel Index Troponin T Total Protein Albumin Triglycerides LDL Cholesterol Direct 03/21/20 03/21/20 03/22/20 17:44 21:55 04:33 WBC RBC Hgb 10.0 L Hct 29.4 L MCHC RDW Lymph % (Auto) Ocean % (Auto) Ocean # Seg Neutrophils % Seg Neuts % (Manual) Lymphocytes % (Manual) Nucleated RBC % Seg Neutrophils # Seg Neutrophils # Man Lymphocytes # (Manual) Monocytes # (Manual) Eosinophils # (Manual) PT INR Heparin Anti-Xa Level ABG pH ABG pO2 ABG HCO3 ABG O2 Saturation ABG Base Excess ABG Hemoglobin Oxyhemoglobin Sodium Potassium Chloride Carbon Dioxide BUN Creatinine Glucose POC Glucose 362 H 329 H Hemoglobin A1c Calcium Ferritin AST ALT Alkaline Phosphatase Total Creatine Kinase CK-MB (CK-2) CK-MB (CK-2) Rel Index Troponin T Total Protein Albumin Triglycerides LDL Cholesterol Direct 03/22/20 03/22/20 03/22/20 08:57 14:12 19:57 WBC RBC Hgb Hct MCHC RDW Lymph % (Auto) Ocean % (Auto) Ocean # Seg Neutrophils % Seg Neuts % (Manual) Lymphocytes % (Manual) Nucleated RBC % Seg Neutrophils # Seg Neutrophils # Man Lymphocytes # (Manual) Monocytes # (Manual) Eosinophils # (Manual) PT INR Heparin Anti-Xa Level ABG pH ABG pO2 ABG HCO3 ABG O2 Saturation ABG Base Excess ABG Hemoglobin Oxyhemoglobin Sodium Potassium Chloride Carbon Dioxide BUN Creatinine Glucose POC Glucose 284 H 319 H 356 H Hemoglobin A1c Calcium Ferritin AST ALT Alkaline Phosphatase Total Creatine Kinase CK-MB (CK-2) CK-MB (CK-2) Rel Index Troponin T Total Protein Albumin Triglycerides LDL Cholesterol Direct 03/22/20 03/23/20 03/23/20 21:44 08:18 12:46 WBC RBC Hgb Hct MCHC RDW Lymph % (Auto) Ocean % (Auto) Ocean # Seg Neutrophils % Seg Neuts % (Manual) Lymphocytes % (Manual) Nucleated RBC % Seg Neutrophils # Seg Neutrophils # Man Lymphocytes # (Manual) Monocytes # (Manual) Eosinophils # (Manual) PT INR Heparin Anti-Xa Level ABG pH ABG pO2 ABG HCO3 ABG O2 Saturation ABG Base Excess ABG Hemoglobin Oxyhemoglobin Sodium Potassium Chloride Carbon Dioxide BUN Creatinine Glucose POC Glucose 336 H 215 H 262 H Hemoglobin A1c Calcium Ferritin AST ALT Alkaline Phosphatase Total Creatine Kinase CK-MB (CK-2) CK-MB (CK-2) Rel Index Troponin T Total Protein Albumin Triglycerides LDL Cholesterol Direct 03/23/20 03/23/20 03/24/20 15:56 22:05 02:35 WBC RBC Hgb 9.0 L Hct 25.8 L MCHC RDW Lymph % (Auto) Ocean % (Auto) Ocean # Seg Neutrophils % Seg Neuts % (Manual) Lymphocytes % (Manual) Nucleated RBC % Seg Neutrophils # Seg Neutrophils # Man Lymphocytes # (Manual) Monocytes # (Manual) Eosinophils # (Manual) PT INR Heparin Anti-Xa Level ABG pH ABG pO2 ABG HCO3 ABG O2 Saturation ABG Base Excess ABG Hemoglobin Oxyhemoglobin Sodium Potassium Chloride Carbon Dioxide BUN Creatinine Glucose POC Glucose 246 H 322 H Hemoglobin A1c Calcium Ferritin AST ALT Alkaline Phosphatase Total Creatine Kinase CK-MB (CK-2) CK-MB (CK-2) Rel Index Troponin T Total Protein Albumin Triglycerides LDL Cholesterol Direct 03/24/20 03/24/20 03/24/20 07:38 11:45 16:02 WBC RBC Hgb Hct MCHC RDW Lymph % (Auto) Ocean % (Auto) Ocean # Seg Neutrophils % Seg Neuts % (Manual) Lymphocytes % (Manual) Nucleated RBC % Seg Neutrophils # Seg Neutrophils # Man Lymphocytes # (Manual) Monocytes # (Manual) Eosinophils # (Manual) PT INR Heparin Anti-Xa Level ABG pH ABG pO2 ABG HCO3 ABG O2 Saturation ABG Base Excess ABG Hemoglobin Oxyhemoglobin Sodium Potassium Chloride Carbon Dioxide BUN Creatinine Glucose POC Glucose 289 H 257 H 150 H Hemoglobin A1c Calcium Ferritin AST ALT Alkaline Phosphatase Total Creatine Kinase CK-MB (CK-2) CK-MB (CK-2) Rel Index Troponin T Total Protein Albumin Triglycerides LDL Cholesterol Direct 03/24/20 03/25/20 03/25/20 21:24 04:06 07:39 WBC RBC Hgb Hct MCHC RDW Lymph % (Auto) Ocean % (Auto) Ocean # Seg Neutrophils % Seg Neuts % (Manual) Lymphocytes % (Manual) Nucleated RBC % Seg Neutrophils # Seg Neutrophils # Man Lymphocytes # (Manual) Monocytes # (Manual) Eosinophils # (Manual) PT INR Heparin Anti-Xa Level 0.10 L ABG pH ABG pO2 ABG HCO3 ABG O2 Saturation ABG Base Excess ABG Hemoglobin Oxyhemoglobin Sodium Potassium Chloride Carbon Dioxide BUN Creatinine Glucose POC Glucose 228 H 332 H Hemoglobin A1c Calcium Ferritin AST ALT Alkaline Phosphatase Total Creatine Kinase CK-MB (CK-2) CK-MB (CK-2) Rel Index Troponin T Total Protein Albumin Triglycerides LDL Cholesterol Direct 03/25/20 03/25/20 03/25/20 08:13 09:30 11:59 WBC 13.1 H RBC 2.82 L Hgb 8.5 L Hct 26.1 L MCHC RDW Lymph % (Auto) Ocean % (Auto) Ocean # Seg Neutrophils % Seg Neuts % (Manual) Lymphocytes % (Manual) Nucleated RBC % Seg Neutrophils # Seg Neutrophils # Man Lymphocytes # (Manual) Monocytes # (Manual) Eosinophils # (Manual) PT INR Heparin Anti-Xa Level ABG pH ABG pO2 ABG HCO3 ABG O2 Saturation ABG Base Excess ABG Hemoglobin Oxyhemoglobin Sodium 131 L Potassium 5.3 H Chloride Carbon Dioxide 20 L BUN 39 H Creatinine 1.4 H Glucose 313 H POC Glucose 273 H Hemoglobin A1c Calcium 8.1 L Ferritin AST ALT Alkaline Phosphatase Total Creatine Kinase CK-MB (CK-2) CK-MB (CK-2) Rel Index Troponin T Total Protein Albumin Triglycerides LDL Cholesterol Direct 03/25/20 03/25/20 03/25/20 13:54 15:58 18:21 WBC RBC Hgb Hct MCHC RDW Lymph % (Auto) Ocean % (Auto) Ocean # Seg Neutrophils % Seg Neuts % (Manual) Lymphocytes % (Manual) Nucleated RBC % Seg Neutrophils # Seg Neutrophils # Man Lymphocytes # (Manual) Monocytes # (Manual) Eosinophils # (Manual) PT INR Heparin Anti-Xa Level ABG pH ABG pO2 ABG HCO3 ABG O2 Saturation ABG Base Excess ABG Hemoglobin Oxyhemoglobin Sodium Potassium Chloride Carbon Dioxide BUN Creatinine Glucose POC Glucose 246 H 235 H 185 H Hemoglobin A1c Calcium Ferritin AST ALT Alkaline Phosphatase Total Creatine Kinase CK-MB (CK-2) CK-MB (CK-2) Rel Index Troponin T Total Protein Albumin Triglycerides LDL Cholesterol Direct 03/25/20 03/26/20 03/26/20 20:45 05:15 06:59 WBC 17.4 H 15.6 H RBC 3.05 L 3.05 L Hgb 9.1 L 9.2 L Hct 28.2 L 27.9 L MCHC RDW Lymph % (Auto) 8.9 L 8.9 L Ocean % (Auto) Ocean # 1.0 H Seg Neutrophils % 84.4 H 84.8 H Seg Neuts % (Manual) Lymphocytes % (Manual) Nucleated RBC % Seg Neutrophils # 14.7 H 13.2 H Seg Neutrophils # Man Lymphocytes # (Manual) Monocytes # (Manual) Eosinophils # (Manual) PT INR Heparin Anti-Xa Level ABG pH ABG pO2 ABG HCO3 ABG O2 Saturation ABG Base Excess ABG Hemoglobin Oxyhemoglobin Sodium Potassium Chloride Carbon Dioxide BUN Creatinine Glucose POC Glucose 178 H Hemoglobin A1c Calcium Ferritin AST ALT Alkaline Phosphatase Total Creatine Kinase CK-MB (CK-2) CK-MB (CK-2) Rel Index Troponin T Total Protein Albumin Triglycerides LDL Cholesterol Direct 03/26/20 03/26/20 03/26/20 06:59 07:43 11:56 WBC RBC Hgb Hct MCHC RDW Lymph % (Auto) Ocean % (Auto) Ocean # Seg Neutrophils % Seg Neuts % (Manual) Lymphocytes % (Manual) Nucleated RBC % Seg Neutrophils # Seg Neutrophils # Man Lymphocytes # (Manual) Monocytes # (Manual) Eosinophils # (Manual) PT INR Heparin Anti-Xa Level ABG pH ABG pO2 ABG HCO3 ABG O2 Saturation ABG Base Excess ABG Hemoglobin Oxyhemoglobin Sodium 131 L Potassium 5.8 H Chloride Carbon Dioxide 16 L BUN 42 H Creatinine 1.4 H Glucose 163 H POC Glucose 170 H 198 H Hemoglobin A1c Calcium 8.0 L Ferritin AST ALT Alkaline Phosphatase Total Creatine Kinase CK-MB (CK-2) CK-MB (CK-2) Rel Index Troponin T Total Protein Albumin Triglycerides LDL Cholesterol Direct 03/26/20 03/26/20 03/26/20 13:58 16:16 21:00 WBC RBC Hgb Hct MCHC RDW Lymph % (Auto) Ocean % (Auto) Ocean # Seg Neutrophils % Seg Neuts % (Manual) Lymphocytes % (Manual) Nucleated RBC % Seg Neutrophils # Seg Neutrophils # Man Lymphocytes # (Manual) Monocytes # (Manual) Eosinophils # (Manual) PT INR Heparin Anti-Xa Level ABG pH ABG pO2 ABG HCO3 ABG O2 Saturation ABG Base Excess ABG Hemoglobin Oxyhemoglobin Sodium 128 L Potassium 6.0 H Chloride Carbon Dioxide 15 L BUN 45 H Creatinine 1.4 H Glucose 190 H POC Glucose 184 H 192 H Hemoglobin A1c Calcium 8.2 L Ferritin AST ALT Alkaline Phosphatase Total Creatine Kinase CK-MB (CK-2) CK-MB (CK-2) Rel Index Troponin T Total Protein Albumin Triglycerides LDL Cholesterol Direct 03/27/20 03/27/20 03/27/20 08:32 11:51 14:39 WBC 22.9 H RBC 2.68 L Hgb 7.9 L Hct 24.7 L MCHC RDW Lymph % (Auto) Ocean % (Auto) Ocean # Seg Neutrophils % Seg Neuts % (Manual) Lymphocytes % (Manual) Nucleated RBC % Seg Neutrophils # Seg Neutrophils # Man Lymphocytes # (Manual) Monocytes # (Manual) Eosinophils # (Manual) PT INR Heparin Anti-Xa Level ABG pH ABG pO2 ABG HCO3 ABG O2 Saturation ABG Base Excess ABG Hemoglobin Oxyhemoglobin Sodium Potassium Chloride Carbon Dioxide BUN Creatinine Glucose POC Glucose 233 H 252 H Hemoglobin A1c Calcium Ferritin AST ALT Alkaline Phosphatase Total Creatine Kinase CK-MB (CK-2) CK-MB (CK-2) Rel Index Troponin T Total Protein Albumin Triglycerides LDL Cholesterol Direct 03/27/20 03/27/20 03/27/20 14:39 15:19 21:35 WBC RBC Hgb Hct MCHC RDW Lymph % (Auto) Ocean % (Auto) Ocean # Seg Neutrophils % Seg Neuts % (Manual) Lymphocytes % (Manual) Nucleated RBC % Seg Neutrophils # Seg Neutrophils # Man Lymphocytes # (Manual) Monocytes # (Manual) Eosinophils # (Manual) PT INR Heparin Anti-Xa Level ABG pH ABG pO2 ABG HCO3 ABG O2 Saturation ABG Base Excess ABG Hemoglobin Oxyhemoglobin Sodium 133 L Potassium 5.5 H Chloride Carbon Dioxide 16 L BUN 46 H Creatinine 1.4 H Glucose 225 H POC Glucose 239 H 202 H Hemoglobin A1c Calcium 8.2 L Ferritin AST ALT Alkaline Phosphatase Total Creatine Kinase CK-MB (CK-2) CK-MB (CK-2) Rel Index Troponin T Total Protein Albumin Triglycerides LDL Cholesterol Direct 03/28/20 03/28/20 03/28/20 07:39 07:39 08:36 WBC 22.4 H RBC 2.71 L Hgb 7.9 L Hct 24.5 L MCHC RDW Lymph % (Auto) Ocean % (Auto) Ocean # Seg Neutrophils % Seg Neuts % (Manual) 88.0 H Lymphocytes % (Manual) 5.0 L Nucleated RBC % Seg Neutrophils # Seg Neutrophils # Man 19.7 H Lymphocytes # (Manual) 1.1 L Monocytes # (Manual) 1.6 H Eosinophils # (Manual) PT INR Heparin Anti-Xa Level ABG pH ABG pO2 ABG HCO3 ABG O2 Saturation ABG Base Excess ABG Hemoglobin Oxyhemoglobin Sodium 134 L Potassium Chloride Carbon Dioxide 19 L BUN 47 H Creatinine Glucose 240 H POC Glucose 253 H Hemoglobin A1c Calcium 7.8 L Ferritin AST ALT Alkaline Phosphatase Total Creatine Kinase CK-MB (CK-2) CK-MB (CK-2) Rel Index Troponin T Total Protein Albumin Triglycerides LDL Cholesterol Direct 03/28/20 03/28/20 03/28/20 11:54 17:08 21:17 WBC RBC Hgb Hct MCHC RDW Lymph % (Auto) Ocean % (Auto) Ocean # Seg Neutrophils % Seg Neuts % (Manual) Lymphocytes % (Manual) Nucleated RBC % Seg Neutrophils # Seg Neutrophils # Man Lymphocytes # (Manual) Monocytes # (Manual) Eosinophils # (Manual) PT INR Heparin Anti-Xa Level ABG pH ABG pO2 ABG HCO3 ABG O2 Saturation ABG Base Excess ABG Hemoglobin Oxyhemoglobin Sodium Potassium Chloride Carbon Dioxide BUN Creatinine Glucose POC Glucose 306 H 178 H 186 H Hemoglobin A1c Calcium Ferritin AST ALT Alkaline Phosphatase Total Creatine Kinase CK-MB (CK-2) CK-MB (CK-2) Rel Index Troponin T Total Protein Albumin Triglycerides LDL Cholesterol Direct 03/29/20 03/29/20 03/29/20 08:32 12:04 14:19 WBC 21.5 H RBC 2.82 L Hgb 8.4 L Hct 26.1 L MCHC RDW Lymph % (Auto) Ocean % (Auto) Ocean # Seg Neutrophils % Seg Neuts % (Manual) 85.0 H Lymphocytes % (Manual) 11.0 L Nucleated RBC % 3.0 H Seg Neutrophils # Seg Neutrophils # Man 18.3 H Lymphocytes # (Manual) Monocytes # (Manual) Eosinophils # (Manual) 0.6 H PT INR Heparin Anti-Xa Level ABG pH ABG pO2 ABG HCO3 ABG O2 Saturation ABG Base Excess ABG Hemoglobin Oxyhemoglobin Sodium Potassium Chloride Carbon Dioxide BUN Creatinine Glucose POC Glucose 110 H 263 H Hemoglobin A1c Calcium Ferritin AST ALT Alkaline Phosphatase Total Creatine Kinase CK-MB (CK-2) CK-MB (CK-2) Rel Index Troponin T Total Protein Albumin Triglycerides LDL Cholesterol Direct 03/29/20 03/29/20 03/30/20 16:17 22:57 11:00 WBC RBC Hgb Hct MCHC RDW Lymph % (Auto) Ocean % (Auto) Ocean # Seg Neutrophils % Seg Neuts % (Manual) Lymphocytes % (Manual) Nucleated RBC % Seg Neutrophils # Seg Neutrophils # Man Lymphocytes # (Manual) Monocytes # (Manual) Eosinophils # (Manual) PT INR Heparin Anti-Xa Level ABG pH ABG pO2 ABG HCO3 ABG O2 Saturation ABG Base Excess ABG Hemoglobin Oxyhemoglobin Sodium Potassium Chloride Carbon Dioxide BUN Creatinine Glucose POC Glucose 109 H 194 H 129 H Hemoglobin A1c Calcium Ferritin AST ALT Alkaline Phosphatase Total Creatine Kinase CK-MB (CK-2) CK-MB (CK-2) Rel Index Troponin T Total Protein Albumin Triglycerides LDL Cholesterol Direct 03/30/20 03/30/20 03/31/20 15:16 21:54 04:27 WBC 15.8 H RBC 2.62 L Hgb 7.7 L Hct 24.1 L MCHC RDW Lymph % (Auto) 9.4 L Ocean % (Auto) Ocean # Seg Neutrophils % 84.4 H Seg Neuts % (Manual) Lymphocytes % (Manual) Nucleated RBC % Seg Neutrophils # 13.3 H Seg Neutrophils # Man Lymphocytes # (Manual) Monocytes # (Manual) Eosinophils # (Manual) PT INR Heparin Anti-Xa Level ABG pH ABG pO2 ABG HCO3 ABG O2 Saturation ABG Base Excess ABG Hemoglobin Oxyhemoglobin Sodium Potassium Chloride Carbon Dioxide BUN Creatinine Glucose POC Glucose 115 H 166 H Hemoglobin A1c Calcium Ferritin AST ALT Alkaline Phosphatase Total Creatine Kinase CK-MB (CK-2) CK-MB (CK-2) Rel Index Troponin T Total Protein Albumin Triglycerides LDL Cholesterol Direct 03/31/20 03/31/20 03/31/20 04:27 07:37 11:46 WBC RBC Hgb Hct MCHC RDW Lymph % (Auto) Ocean % (Auto) Ocean # Seg Neutrophils % Seg Neuts % (Manual) Lymphocytes % (Manual) Nucleated RBC % Seg Neutrophils # Seg Neutrophils # Man Lymphocytes # (Manual) Monocytes # (Manual) Eosinophils # (Manual) PT INR Heparin Anti-Xa Level ABG pH ABG pO2 ABG HCO3 ABG O2 Saturation ABG Base Excess ABG Hemoglobin Oxyhemoglobin Sodium 133 L Potassium Chloride 96.6 L Carbon Dioxide 18 L BUN 75 H Creatinine 2.5 H D Glucose 129 H POC Glucose 156 H 224 H Hemoglobin A1c Calcium 8.0 L Ferritin AST ALT Alkaline Phosphatase Total Creatine Kinase CK-MB (CK-2) CK-MB (CK-2) Rel Index Troponin T Total Protein Albumin Triglycerides LDL Cholesterol Direct 04/01/20 04/01/20 04/01/20 08:34 10:52 10:52 WBC 12.9 H RBC 2.75 L Hgb 8.2 L Hct 24.8 L MCHC RDW Lymph % (Auto) 10.6 L Ocean % (Auto) Ocean # Seg Neutrophils % 83.7 H Seg Neuts % (Manual) Lymphocytes % (Manual) Nucleated RBC % Seg Neutrophils # 10.8 H Seg Neutrophils # Man Lymphocytes # (Manual) Monocytes # (Manual) Eosinophils # (Manual) PT INR Heparin Anti-Xa Level ABG pH ABG pO2 ABG HCO3 ABG O2 Saturation ABG Base Excess ABG Hemoglobin Oxyhemoglobin Sodium 131 L Potassium Chloride 96.1 L Carbon Dioxide 17 L BUN 77 H Creatinine 2.3 H Glucose 205 H POC Glucose 110 H Hemoglobin A1c Calcium 7.9 L Ferritin AST ALT Alkaline Phosphatase Total Creatine Kinase CK-MB (CK-2) CK-MB (CK-2) Rel Index Troponin T Total Protein Albumin Triglycerides LDL Cholesterol Direct 04/01/20 04/01/20 04/01/20 12:15 17:22 20:47 WBC RBC Hgb Hct MCHC RDW Lymph % (Auto) Ocean % (Auto) Ocean # Seg Neutrophils % Seg Neuts % (Manual) Lymphocytes % (Manual) Nucleated RBC % Seg Neutrophils # Seg Neutrophils # Man Lymphocytes # (Manual) Monocytes # (Manual) Eosinophils # (Manual) PT INR Heparin Anti-Xa Level ABG pH ABG pO2 ABG HCO3 ABG O2 Saturation ABG Base Excess ABG Hemoglobin Oxyhemoglobin Sodium Potassium Chloride Carbon Dioxide BUN Creatinine Glucose POC Glucose 201 H 219 H 156 H Hemoglobin A1c Calcium Ferritin AST ALT Alkaline Phosphatase Total Creatine Kinase CK-MB (CK-2) CK-MB (CK-2) Rel Index Troponin T Total Protein Albumin Triglycerides LDL Cholesterol Direct 04/02/20 04/02/20 04/02/20 05:44 05:44 11:32 WBC 15.8 H RBC 2.81 L Hgb 8.2 L Hct 25.7 L MCHC RDW Lymph % (Auto) Ocean % (Auto) Ocean # 0.9 H Seg Neutrophils % 77.7 H Seg Neuts % (Manual) Lymphocytes % (Manual) Nucleated RBC % Seg Neutrophils # 12.3 H Seg Neutrophils # Man Lymphocytes # (Manual) Monocytes # (Manual) Eosinophils # (Manual) PT INR Heparin Anti-Xa Level ABG pH ABG pO2 ABG HCO3 ABG O2 Saturation ABG Base Excess ABG Hemoglobin Oxyhemoglobin Sodium 134 L Potassium Chloride Carbon Dioxide 19 L BUN 76 H Creatinine 2.0 H Glucose POC Glucose 116 H Hemoglobin A1c Calcium 8.0 L Ferritin AST 291 H ALT 169 H Alkaline Phosphatase 256 H Total Creatine Kinase CK-MB (CK-2) CK-MB (CK-2) Rel Index Troponin T Total Protein 6.1 L Albumin 2.2 L Triglycerides LDL Cholesterol Direct 04/02/20 04/02/20 04/03/20 16:56 22:03 08:13 WBC RBC Hgb Hct MCHC RDW Lymph % (Auto) Ocean % (Auto) Ocean # Seg Neutrophils % Seg Neuts % (Manual) Lymphocytes % (Manual) Nucleated RBC % Seg Neutrophils # Seg Neutrophils # Man Lymphocytes # (Manual) Monocytes # (Manual) Eosinophils # (Manual) PT INR Heparin Anti-Xa Level ABG pH ABG pO2 ABG HCO3 ABG O2 Saturation ABG Base Excess ABG Hemoglobin Oxyhemoglobin Sodium Potassium Chloride Carbon Dioxide BUN Creatinine Glucose POC Glucose 141 H 152 H 126 H Hemoglobin A1c Calcium Ferritin AST ALT Alkaline Phosphatase Total Creatine Kinase CK-MB (CK-2) CK-MB (CK-2) Rel Index Troponin T Total Protein Albumin Triglycerides LDL Cholesterol Direct 04/03/20 04/03/20 04/03/20 12:11 16:26 21:33 WBC RBC Hgb Hct MCHC RDW Lymph % (Auto) Ocean % (Auto) Ocean # Seg Neutrophils % Seg Neuts % (Manual) Lymphocytes % (Manual) Nucleated RBC % Seg Neutrophils # Seg Neutrophils # Man Lymphocytes # (Manual) Monocytes # (Manual) Eosinophils # (Manual) PT INR Heparin Anti-Xa Level ABG pH ABG pO2 ABG HCO3 ABG O2 Saturation ABG Base Excess ABG Hemoglobin Oxyhemoglobin Sodium Potassium Chloride Carbon Dioxide BUN Creatinine Glucose POC Glucose 139 H 164 H 147 H Hemoglobin A1c Calcium Ferritin AST ALT Alkaline Phosphatase Total Creatine Kinase CK-MB (CK-2) CK-MB (CK-2) Rel Index Troponin T Total Protein Albumin Triglycerides LDL Cholesterol Direct 04/04/20 04/04/20 04/04/20 04:29 04:29 11:29 WBC 12.3 H RBC 2.88 L Hgb 8.4 L Hct 26.1 L MCHC RDW Lymph % (Auto) Ocean % (Auto) Ocean # Seg Neutrophils % 75.4 H Seg Neuts % (Manual) Lymphocytes % (Manual) Nucleated RBC % Seg Neutrophils # 9.3 H Seg Neutrophils # Man Lymphocytes # (Manual) Monocytes # (Manual) Eosinophils # (Manual) PT INR Heparin Anti-Xa Level ABG pH ABG pO2 ABG HCO3 ABG O2 Saturation ABG Base Excess ABG Hemoglobin Oxyhemoglobin Sodium 136 L Potassium Chloride Carbon Dioxide 19 L BUN 71 H Creatinine 1.7 H Glucose POC Glucose 108 H Hemoglobin A1c Calcium 8.0 L Ferritin AST 673 H ALT 252 H Alkaline Phosphatase 311 H Total Creatine Kinase CK-MB (CK-2) CK-MB (CK-2) Rel Index Troponin T Total Protein Albumin 2.2 L Triglycerides LDL Cholesterol Direct 04/04/20 04/04/20 04/05/20 16:34 20:58 03:54 WBC 13.7 H RBC 3.03 L Hgb 8.7 L Hct 27.9 L MCHC 31 L RDW 15.5 H Lymph % (Auto) Ocean % (Auto) Ocean # Seg Neutrophils % 78.9 H Seg Neuts % (Manual) Lymphocytes % (Manual) Nucleated RBC % Seg Neutrophils # 10.8 H Seg Neutrophils # Man Lymphocytes # (Manual) Monocytes # (Manual) Eosinophils # (Manual) PT INR Heparin Anti-Xa Level ABG pH ABG pO2 ABG HCO3 ABG O2 Saturation ABG Base Excess ABG Hemoglobin Oxyhemoglobin Sodium Potassium Chloride Carbon Dioxide BUN Creatinine Glucose POC Glucose 151 H 131 H Hemoglobin A1c Calcium Ferritin AST ALT Alkaline Phosphatase Total Creatine Kinase CK-MB (CK-2) CK-MB (CK-2) Rel Index Troponin T Total Protein Albumin Triglycerides LDL Cholesterol Direct 04/05/20 04/05/20 04/05/20 03:54 15:58 15:58 WBC RBC Hgb Hct MCHC RDW Lymph % (Auto) Ocean % (Auto) Ocean # Seg Neutrophils % Seg Neuts % (Manual) Lymphocytes % (Manual) Nucleated RBC % Seg Neutrophils # Seg Neutrophils # Man Lymphocytes # (Manual) Monocytes # (Manual) Eosinophils # (Manual) PT INR Heparin Anti-Xa Level ABG pH ABG pO2 67.1 L ABG HCO3 26.1 H ABG O2 Saturation 93.4 L ABG Base Excess ABG Hemoglobin 9.0 L Oxyhemoglobin 91.6 L Sodium 136 L Potassium 5.5 H Chloride Carbon Dioxide 21 L BUN 79 H Creatinine 1.9 H Glucose 63 L POC Glucose 129 H Hemoglobin A1c Calcium 8.2 L Ferritin AST 696 H ALT 262 H Alkaline Phosphatase 325 H Total Creatine Kinase CK-MB (CK-2) CK-MB (CK-2) Rel Index Troponin T Total Protein Albumin 2.3 L Triglycerides LDL Cholesterol Direct 04/05/20 04/06/20 04/06/20 22:33 07:14 07:14 WBC RBC Hgb Hct MCHC RDW Lymph % (Auto) Ocean % (Auto) Ocean # Seg Neutrophils % Seg Neuts % (Manual) Lymphocytes % (Manual) Nucleated RBC % Seg Neutrophils # Seg Neutrophils # Man Lymphocytes # (Manual) Monocytes # (Manual) Eosinophils # (Manual) PT INR Heparin Anti-Xa Level ABG pH ABG pO2 ABG HCO3 ABG O2 Saturation ABG Base Excess ABG Hemoglobin Oxyhemoglobin Sodium Potassium 5.6 H Chloride Carbon Dioxide BUN 83 H Creatinine 1.9 H Glucose 202 H POC Glucose 253 H Hemoglobin A1c Calcium Ferritin 444.2 H AST 469 H ALT 237 H Alkaline Phosphatase 332 H Total Creatine Kinase CK-MB (CK-2) CK-MB (CK-2) Rel Index Troponin T Total Protein Albumin 2.2 L Triglycerides LDL Cholesterol Direct 04/06/20 04/06/20 04/06/20 08:23 12:00 13:56 WBC RBC Hgb Hct MCHC RDW Lymph % (Auto) Ocean % (Auto) Ocean # Seg Neutrophils % Seg Neuts % (Manual) Lymphocytes % (Manual) Nucleated RBC % Seg Neutrophils # Seg Neutrophils # Man Lymphocytes # (Manual) Monocytes # (Manual) Eosinophils # (Manual) PT 27.0 H INR 2.44 H Heparin Anti-Xa Level ABG pH ABG pO2 ABG HCO3 ABG O2 Saturation ABG Base Excess ABG Hemoglobin Oxyhemoglobin Sodium Potassium Chloride Carbon Dioxide BUN Creatinine Glucose POC Glucose 226 H 176 H Hemoglobin A1c Calcium Ferritin AST ALT Alkaline Phosphatase Total Creatine Kinase CK-MB (CK-2) CK-MB (CK-2) Rel Index Troponin T Total Protein Albumin Triglycerides LDL Cholesterol Direct 04/06/20 04/07/20 04/07/20 20:45 04:58 04:58 WBC RBC Hgb Hct MCHC RDW Lymph % (Auto) Ocean % (Auto) Ocean # Seg Neutrophils % Seg Neuts % (Manual) Lymphocytes % (Manual) Nucleated RBC % Seg Neutrophils # Seg Neutrophils # Man Lymphocytes # (Manual) Monocytes # (Manual) Eosinophils # (Manual) PT 30.9 H INR 2.89 H Heparin Anti-Xa Level ABG pH ABG pO2 ABG HCO3 ABG O2 Saturation ABG Base Excess ABG Hemoglobin Oxyhemoglobin Sodium Potassium 6.0 H Chloride Carbon Dioxide BUN 85 H Creatinine 2.1 H Glucose 177 H POC Glucose 139 H Hemoglobin A1c Calcium Ferritin AST 351 H ALT 215 H Alkaline Phosphatase 332 H Total Creatine Kinase CK-MB (CK-2) CK-MB (CK-2) Rel Index Troponin T Total Protein Albumin 2.7 L Triglycerides LDL Cholesterol Direct 04/07/20 04/07/20 04/08/20 07:53 11:51 04:44 WBC 11.7 H RBC 3.07 L Hgb 9.1 L Hct 28.9 L MCHC RDW 16.8 H Lymph % (Auto) 12.4 L Ocean % (Auto) Ocean # Seg Neutrophils % 83.3 H Seg Neuts % (Manual) Lymphocytes % (Manual) Nucleated RBC % Seg Neutrophils # 9.7 H Seg Neutrophils # Man Lymphocytes # (Manual) Monocytes # (Manual) Eosinophils # (Manual) PT INR Heparin Anti-Xa Level ABG pH ABG pO2 ABG HCO3 ABG O2 Saturation ABG Base Excess ABG Hemoglobin Oxyhemoglobin Sodium Potassium Chloride Carbon Dioxide BUN Creatinine Glucose POC Glucose 167 H 120 H Hemoglobin A1c Calcium Ferritin AST ALT Alkaline Phosphatase Total Creatine Kinase CK-MB (CK-2) CK-MB (CK-2) Rel Index Troponin T Total Protein Albumin Triglycerides LDL Cholesterol Direct 04/08/20 04/08/20 04/08/20 04:44 07:19 08:43 WBC RBC Hgb Hct MCHC RDW Lymph % (Auto) Ocean % (Auto) Ocean # Seg Neutrophils % Seg Neuts % (Manual) Lymphocytes % (Manual) Nucleated RBC % Seg Neutrophils # Seg Neutrophils # Man Lymphocytes # (Manual) Monocytes # (Manual) Eosinophils # (Manual) PT INR Heparin Anti-Xa Level ABG pH ABG pO2 ABG HCO3 ABG O2 Saturation ABG Base Excess ABG Hemoglobin Oxyhemoglobin Sodium Potassium 6.3 H* Chloride Carbon Dioxide 21 L BUN 89 H Creatinine 1.9 H Glucose 63 L POC Glucose 65 L 168 H Hemoglobin A1c Calcium Ferritin AST 370 H ALT 211 H Alkaline Phosphatase 320 H Total Creatine Kinase CK-MB (CK-2) CK-MB (CK-2) Rel Index Troponin T Total Protein Albumin 2.6 L Triglycerides LDL Cholesterol Direct 04/08/20 04/08/20 04/08/20 12:53 16:38 21:47 WBC RBC Hgb Hct MCHC RDW Lymph % (Auto) Ocean % (Auto) Ocean # Seg Neutrophils % Seg Neuts % (Manual) Lymphocytes % (Manual) Nucleated RBC % Seg Neutrophils # Seg Neutrophils # Man Lymphocytes # (Manual) Monocytes # (Manual) Eosinophils # (Manual) PT INR Heparin Anti-Xa Level ABG pH ABG pO2 ABG HCO3 ABG O2 Saturation ABG Base Excess ABG Hemoglobin Oxyhemoglobin Sodium Potassium 6.0 H Chloride Carbon Dioxide BUN 90 H Creatinine 2.1 H Glucose 124 H POC Glucose 129 H 118 H Hemoglobin A1c Calcium Ferritin AST ALT Alkaline Phosphatase Total Creatine Kinase CK-MB (CK-2) CK-MB (CK-2) Rel Index Troponin T Total Protein Albumin Triglycerides LDL Cholesterol Direct 04/09/20 04/09/20 03:45 08:04 WBC RBC Hgb Hct MCHC RDW Lymph % (Auto) Ocean % (Auto) Ocean # Seg Neutrophils % Seg Neuts % (Manual) Lymphocytes % (Manual) Nucleated RBC % Seg Neutrophils # Seg Neutrophils # Man Lymphocytes # (Manual) Monocytes # (Manual) Eosinophils # (Manual) PT INR Heparin Anti-Xa Level ABG pH 7.304 L ABG pO2 72.2 L ABG HCO3 ABG O2 Saturation 93.7 L ABG Base Excess -3.3 L ABG Hemoglobin 8.9 L Oxyhemoglobin 91.8 L Sodium Potassium 6.6 H* Chloride Carbon Dioxide BUN 99 H Creatinine 2.2 H Glucose POC Glucose Hemoglobin A1c Calcium 8.2 L Ferritin AST ALT Alkaline Phosphatase Total Creatine Kinase CK-MB (CK-2) CK-MB (CK-2) Rel Index Troponin T Total Protein Albumin Triglycerides LDL Cholesterol Direct Assessment and Plan Patient is a 54 y/o man w/ a h/o CVA w/ no residual deficits, HTN, DM, HLD, CAD s/p CABG, h/o DVT w/ PE, COPD, STARR. He presented on 03/18/20 w/ left foot pain and discoloration, and underwent revascularization of left foot followed by left BKA. Patient was also found to have NSTEMI and later developed DYLON, transaminitis, anemia, hypotension, and sepsis. Yesterday, patient was noted to be lethargic, for which a CT head was ordered, which revealed subacute stroke in left parietal region. According to the patient's clinical findings, it is likely that he has had a stroke. Plan: 1. Stroke: - MRI brain: Pending. Patient may not currently be able to undergo MRI due to continuous BiPAP. Therefore perform when patient is stable enough to undergo. - MRA head/neck: Pending - Check CUS - CT head: Subacute infarct noted in left parietal lobe. - Echo: EF 30-35%, LA normal size. bubble study not performed. - Cont. Plavix. - Cont. statin. LDL goal <70 - Telemetry monitoring while in house - PT/OT/ST - DVT Ppx: Recommend lovenox - Given that patient has a subacute stroke on CT head, there is a risk of hemorrhagic transformation given that patient is on anti-coagulation. If the indication is active DVT/PE, then benefit of anti-coagulation in reducing risk of propogation of DVT/PE outweighs risk of hemorrhagic transformation of stroke, as PE has high risk of causing mortality. However, if patient does not have am active DVT/PE, then would recommend holding Eliquis for at least 7 days, given recent stroke, as well as elevated INR, to reduce risk of hemorrhagic conversion. Will defer to primary and vascular surgery teams regarding indication of anti-coagulation. Discussed with primary team, who mentioned that vascular surgery had placed patient on anti-coagulation. 2. Hypertension: - Recommend BP goal of <220/120 to allow for permissive HTN for first 24-48 hours. Can target normotension after that. 3. Metabolic Encephalopathy - In setting of DYLON, transaminitis, anemia, hypotension, and sepsis - Continue to correct metabolic abnormalities and infections per primary team. - Will continue to monitor patient. Thank you for allowing me to take part in the care of this patient. Angel Duran MD Neurology This clinical encounter was provided via live telemedicine platform. Consultative service was provided for neurology to support local providers. The Acute Teleneurology team should be contacted with any neurologic worsening or clinical changes, new test results, or new patient history that is reported to or discovered by the local team following completion of the teleneurology consultation, specifically that which has the potential to impact the consultative recommendations. Patient/Family was informed the Neurology Consult would happen via TeleHealth consult by way of interactive audio and video telecommunications and consented to receiving care in this manner. Due to the potential for life-threatening deterioration due to underlying neurologic illness, and limited resources available for patient care, telemedicine was used as means of patient care. Telemedicine consultation is limited in the extent of physical exam that can be virtually provided. Time spent evaluating patient includes time for face to face visit via telemedicine, review of medical records, imaging studies and discussion of findings with providers, the patient and/or family.
--- NOTE | 2020-04-09 17:01 | XRay Report ---
ABDOMEN 1 VIEW 4:45 PM INDICATION / CLINICAL INFORMATION: for Dobbhoff placement. COMPARISON: None available. FINDINGS: TUBES / LINES: Weighted feeding tube has been placed with the tip in the proximal to mid stomach. BOWEL GAS PATTERN: No significant abnormality. FREE AIR / EXTRALUMINAL GAS: None seen. ADDITIONAL FINDINGS: Extensive left hemithorax opacification unchanged since 04/08/20. IMPRESSION: 1. Feeding tube in satisfactory position. Tube could be advanced for more optimal positioning. Signer Name: Desiree Roy MD Signed: 04/09/2020 4:56 PM Workstation Name: [id number]
[2020-04-09] MEDS: APIXABAN 5 MG TAB PO SCH (17:52)
[2020-04-09] MEDS: CLOPIDOGREL 75 MG TAB PO SCH (17:53)
[2020-04-09] MEDS: PANTOPRAZOLE 40 MG TAB PO SCH ×2 (17:53→21:15)
[2020-04-09] MEDS: METOPROLOL TARTRATE 50 MG TAB PO SCH ×2 (17:54→21:09)
[2020-04-09] MEDS: PREGABALIN 75 MG CAP PO SCH ×2 (18:58→23:05)
--- NOTE | 2020-04-09 19:05 | Event Note ---
Date: 04/09/20 Called patient's son Mr. Micah Weiss [phone] and discussed in detail patient's critical condition Multiorgan organ involvement, very poor prognosis, continues deterioration clinically, and treatment plan. I also discussed with him tests and imaging studies reports. I answered all his questions, I even discussed patient's advanced directives. The son reports that he would discuss with other family members and will get back to us. I encouraged him to call back with any new questions or concerns. Informed patient's nurse of the above conversation,
[2020-04-09 19:54] LABS: Calcium 8.5 mg/dL (8.4-10.2)
[2020-04-09] MEDS ORDERED: CALCIUM CHLORIDE 1,000 MG in SODIUM CHLORIDE 0.9% 100 ML IV STA (21:04)
[2020-04-09] MEDS: guaiFENesin DM 200/20 MG ORAL LIQD 10 ML PO PRN (21:17)
[2020-04-10] MEDS: FUROSEMIDE 40 MG/4 ML INJ IV SCH ×2 (05:47→17:46)
[2020-04-10 06:35] LABS: Hematocrit 28.4 % (35.5-45.6); Hemoglobin 8.9 gm/dl (11.8-15.2); Mean Corpuscular HGB Conc 31 % (32-34); Mean Corpuscular Volume 95 fl (84-94); Platelet Count 228 K/mm3 (140-440); Red Blood Count 3.01 M/mm3 (3.65-5.03); Red Cell Distribution Width 17.6 % (13.2-15.2)
[2020-04-10 06:48] LABS: Albumin 2.5 g/dL (3.9-5); Calcium 8.7 mg/dL (8.4-10.2)
[2020-04-10 06:53] LABS: Basophils % (Auto) 0.2 % (0.0-1.8); Lymphocytes # (Auto) 1.1 K/mm3 (1.2-5.4); Lymphocytes % (Auto) 11.4 % (13.4-35.0); Monocytes # (Auto) 0.6 K/mm3 (0.0-0.8); Monocytes % (Auto) 6.4 % (0.0-7.3)
[2020-04-10] MEDS: [UNRECOGNIZED DRUG - REMARK] SUB-Q SCH ×4 (08:06→22:57)
[2020-04-10] MEDS: BUDESONIDE 0.5 MG/2 ML NEBU IH SCH ×2 (09:21→22:29)
[2020-04-10] MEDS: ARFORMOTEROL 15 MCG/2 ML NEBU IH SCH ×2 (09:21→22:29)
[2020-04-10] MEDS: CLOPIDOGREL 75 MG TAB PO SCH (09:56)
[2020-04-10] MEDS: PANTOPRAZOLE 40 MG TAB PO SCH ×2 (09:56→22:56)
[2020-04-10] MEDS: METOPROLOL TARTRATE 50 MG TAB PO SCH ×2 (09:58→22:56)
--- NOTE | 2020-04-10 11:18 | Progress Note ---
Assessment and Plan Cultures: wound culture: pending A/P: 54-year-old male with prior CVA, hypertension, diabetes, coronary artery disease, history of DVT and PE, peripheral vascular disease who was admitted to the hospital with a cold left lower extremity. He underwent a BKA on 03/25/2020: #Sepsis: L BKA stump infection v/s pneumonia. CXR 04/08/2020 with almost complete opacification of left hemithorax. . #Left BKA stump drainage: Vascular is following. No fever. Empiric antibiotics for now. Follow wound culture results. Serous drainage from Left BKA stump, ?mild cellulitis. #Peripheral vascular disease #Diabetes mellitus, uncontrolled: Maintain glycemic control #Acute kidney injury: Renally dose antibiotics #Elevated LFTs /transaminitis: Question of cholecystitis. Unable to perform a HIDA since he could not lay flat. GI and surgery following. #Acute encephalopathy: CT head with late subacute infarction in [employer] territory. Recs: continue Cefepime + Vancomycin, renally dosed, expect short course (5-7 days) f/u wound culture Chris Brower MD, FACP [facility] ([facility] C: [phone] O: [phone] F: [phone] Subjective Date of service: 04/10/20 Principal diagnosis: Acute limb ischemia; STARR; COPD; Ac hypoxemic resp failure; DM II; NSTEMI Interval history: Patient drowsy, can be awakened, on BiPAP. No fever. No other concerns per RN. Objective - Exam Narrative Exam: Physical Exam: Constitutional: Somnolent, can be awakened, on BiPAP Head, Ears, Nose: Normocephalic, atraumatic. External ears, nose normal Eyes: Conjunctivae/corneas clear. No icterus. No ptosis. Neck: BiPAP Cardiovascular: S1, S2 normal. Respiratory: AE fair b/l GI: Soft, non-tender; bowel sounds normal. No peritoneal signs Musculoskeletal: Left BKA stump in dressing Skin: No rash or abscess Hem/Lymphatic: No palpable cervical or supraclavicular nodes. No lymphangitis Psych: No agitation Neurological: Somnolent, exam limited - Constitutional Vitals: Vital Signs Temp Pulse Resp BP Pulse Ox 98.9 F 54 L 20 99/68 94 04/10/20 08:42 04/10/20 08:42 04/10/20 08:42 04/10/20 08:42 04/10/20 08:42 Temperature -Last 24 Hours Temperature 98.9 F Temperature 96.0 F Temperature 96.4 F Temperature 96.0 F Temperature 98.3 F - Labs CBC & Chem 7: 04/10/20 05:48 04/10/20 05:48 Labs: Abnormal lab results 04/09/20 04/10/20 04/10/20 Range/Units 19:10 05:48 05:48 RBC 3.01 L (3.65-5.03) M/mm3 Hgb 8.9 L (11.8-15.2) gm/dl Hct 28.4 L (35.5-45.6) % MCV 95 H (84-94) fl MCHC 31 L (32-34) % RDW 17.6 H (13.2-15.2) % Lymph % (Auto) 11.4 L (13.4-35.0) % Lymph # 1.1 L (1.2-5.4) K/mm3 Seg Neutrophils % 81.1 H (40.0-70.0) % Seg Neutrophils # 8.1 H (1.8-7.7) K/mm3 Potassium 6.5 H* 5.2 H (3.6-5.0) mmol/L Carbon Dioxide 21 L (22-30) mmol/L BUN 100 H 104 H (9-20) mg/dL Creatinine 2.3 H 2.2 H (0.8-1.3) mg/dL Glucose 129 H (75-100) mg/dL POC Glucose (70-105) Magnesium 2.80 H (1.7-2.3) mg/dL AST 502 H (5-40) units/L ALT 249 H (7-56) units/L Alkaline Phosphatase 323 H (35-129) units/L Albumin 2.5 L (3.9-5) g/dL 04/10/20 Range/Units 08:53 RBC (3.65-5.03) M/mm3 Hgb (11.8-15.2) gm/dl Hct (35.5-45.6) % MCV (84-94) fl MCHC (32-34) % RDW (13.2-15.2) % Lymph % (Auto) (13.4-35.0) % Lymph # (1.2-5.4) K/mm3 Seg Neutrophils % (40.0-70.0) % Seg Neutrophils # (1.8-7.7) K/mm3 Potassium (3.6-5.0) mmol/L Carbon Dioxide (22-30) mmol/L BUN (9-20) mg/dL Creatinine (0.8-1.3) mg/dL Glucose (75-100) mg/dL POC Glucose 110 H (70-105) Magnesium (1.7-2.3) mg/dL AST (5-40) units/L ALT (7-56) units/L Alkaline Phosphatase (35-129) units/L Albumin (3.9-5) g/dL
[2020-04-10] MEDS: CEFEPIME/NS 1 GM/100 ML 1 GM/100 ML BAG IV SCH ×2 (11:24→22:55)
--- NOTE | 2020-04-10 12:43 | Progress Note ---
Assessment and Plan Patient is a 54 y/o man w/ a h/o CVA w/ no residual deficits, HTN, DM, HLD, CAD s/p CABG, h/o DVT w/ PE, COPD, STARR. He presented on 03/18/20 w/ left foot pain and discoloration, and underwent revascularization of left foot followed by left BK A. Patient was also found to have NSTEMI and later developed DYLON, transaminitis, anemia, hypotension, and sepsis. On 04/08/20, patient was noted to be lethargic, for which a CT head was ordered, which revealed subacute stroke in left parietal region. According to the patient's clinical findings, it is likely that he has had a stroke. Plan: 1. Stroke: - MRI brain: Pending. Patient may not currently be able to undergo MRI due to continuous BiPAP. Therefore perform when patient is stable enough to undergo. - MRA head/neck: Pending - Check CUS - CT head: Subacute infarct noted in left parietal lobe. - Echo: EF 30-35%, LA normal size. bubble study not performed. - Cont. Plavix. - Cont. statin. LDL goal <70 - Telemetry monitoring while in house - PT/OT/ST - DVT Ppx: Recommend lovenox - Given that patient has a subacute stroke on CT head, there is a risk of hemorrhagic transformation given that patient is on anti-coagulation. If the indication is active DVT/PE, then benefit of anti-coagulation in reducing risk of propogation of DVT/PE outweighs risk of hemorrhagic transformation of stroke, as PE has high risk of causing mortality. However, if patient does not have am active DVT/PE, then would recommend holding Eliquis for at least 7 days, given recent stroke, as well as elevated INR, to reduce risk of hemorrhagic conversion. Will defer to primary and vascular surgery teams regarding indication of anti-coagulation. Discussed with primary team, who mentioned that vascular surgery had placed patient on anti-coagulation. 2. Hypertension: - Recommend BP goal of normotension, as it has been >48 hours since symptom onset. 3. Metabolic Encephalopathy - In setting of DYLON, transaminitis, anemia, hypotension, and sepsis - Continue to correct metabolic abnormalities and infections per primary team. - Will continue to monitor patient. Thank you for allowing me to take part in the care of this patient. Angel Duran MD Neurology This clinical encounter was provided via live telemedicine platform. Consultative service was provided for neurology to support local providers. The Acute Teleneurology team should be contacted with any neurologic worsening or clinical changes, new test results, or new patient history that is reported to or discovered by the local team following completion of the teleneurology consultation, specifically that which has the potential to impact the consultative recommendations. Patient/Family was informed the Neurology Consult would happen via TeleHealth consult by way of interactive audio and video telecommunications and consented to receiving care in this manner. Due to the potential for life-threatening deterioration due to underlying neurologic illness, and limited resources available for patient care, telemedicine was used as means of patient care. Telemedicine consultation is limited in the extent of physical exam that can be virtually provided. Time spent evaluating patient includes time for face to face visit via telemedicine, review of medical records, imaging studies and discussion of findings with providers, the patient and/or family. Subjective Date of service: 04/10/20 Principal diagnosis: Acute limb ischemia; STARR; COPD; Ac hypoxemic resp failure; DM II; NSTEMI Interval history: No acute events overnight. Objective - Exam Narrative Exam: Patient lethargic, opens eyes on tactile stimulus, makes moaning noises, otherwise non-verbal. Intermittently follows commands by moving extremities. Wearing BiPAP. Raises left arm spontaneously. PERRL. W/d all extremities to pain. Spontaneously moves RLE/RUE/LUE. Left BKA noted. - Vital Sign Vital Signs - 12hr 04/10/20 04/10/20 04/10/20 03:54 08:42 09:15 Temperature 96.0 F L 98.9 F Pulse Rate 69 54 L 92 H Pulse Rate [ Anterior Bilateral Throughout] Respiratory 16 20 25 H Rate Respiratory Rate [Anterior Bilateral Throughout] Blood Pressure 103/69 99/68 O2 Sat by Pulse 100 94 98 Oximetry 04/10/20 04/10/20 09:21 10:00 Temperature Pulse Rate Pulse Rate [ 94 H Anterior Bilateral Throughout] Respiratory Rate Respiratory 18 Rate [Anterior Bilateral Throughout] Blood Pressure O2 Sat by Pulse 96 Oximetry - Laboratory Findings CBC and BMP: 04/10/20 05:48 04/10/20 05:48 Abnormal Lab Findings: Abnormal Labs 08/03/20 08/03/20 08/03/20 18:28 18:28 20:56 WBC 12.3 H RBC Hgb Hct MCV MCHC RDW Lymph % (Auto) 11.0 L Angelina % (Auto) 9.8 H Lymph # Angelina # 1.2 H Seg Neutrophils % 78.4 H Seg Neuts % (Manual) Lymphocytes % (Manual) Nucleated RBC % Seg Neutrophils # 9.6 H Seg Neutrophils # Man Lymphocytes # (Manual) Monocytes # (Manual) Eosinophils # (Manual) PT INR Heparin Anti-Xa Level ABG pH ABG pO2 ABG HCO3 ABG O2 Saturation ABG Base Excess ABG Hemoglobin Oxyhemoglobin Sodium 132 L Potassium Chloride 91.9 L Carbon Dioxide 20 L BUN Creatinine 1.4 H Glucose 406 H POC Glucose Hemoglobin A1c Calcium Magnesium Ferritin AST ALT Alkaline Phosphatase Total Creatine Kinase 2727 H 2492 H CK-MB (CK-2) 135.9 H 107.2 H CK-MB (CK-2) Rel Index 4.3 H Troponin T 5.110 H* 3.960 H* D Total Protein Albumin Triglycerides 188 H LDL Cholesterol Direct 141 H 03/18/20 03/19/20 03/19/20 22:21 01:57 08:08 WBC RBC Hgb Hct MCV MCHC RDW Lymph % (Auto) Angelina % (Auto) Lymph # Angelina # Seg Neutrophils % Seg Neuts % (Manual) Lymphocytes % (Manual) Nucleated RBC % Seg Neutrophils # Seg Neutrophils # Man Lymphocytes # (Manual) Monocytes # (Manual) Eosinophils # (Manual) PT INR Heparin Anti-Xa Level ABG pH ABG pO2 ABG HCO3 ABG O2 Saturation ABG Base Excess ABG Hemoglobin Oxyhemoglobin Sodium Potassium Chloride Carbon Dioxide BUN Creatinine Glucose POC Glucose 317 H Hemoglobin A1c 11.0 H Calcium Magnesium Ferritin AST ALT Alkaline Phosphatase Total Creatine Kinase 7255 H CK-MB (CK-2) 79.3 H CK-MB (CK-2) Rel Index Troponin T 5.540 H* D Total Protein Albumin Triglycerides LDL Cholesterol Direct 03/19/20 03/19/20 03/19/20 08:08 08:08 08:08 WBC 13.3 H RBC Hgb Hct MCV MCHC RDW Lymph % (Auto) 10.7 L Angelina % (Auto) 8.5 H Lymph # Angelina # 1.1 H Seg Neutrophils % 80.0 H Seg Neuts % (Manual) Lymphocytes % (Manual) Nucleated RBC % Seg Neutrophils # 10.6 H Seg Neutrophils # Man Lymphocytes # (Manual) Monocytes # (Manual) Eosinophils # (Manual) PT INR Heparin Anti-Xa Level 0.10 L ABG pH ABG pO2 ABG HCO3 ABG O2 Saturation ABG Base Excess ABG Hemoglobin Oxyhemoglobin Sodium 133 L Potassium 5.1 H Chloride Carbon Dioxide 17 L BUN 23 H Creatinine Glucose 313 H POC Glucose Hemoglobin A1c Calcium Magnesium Ferritin AST ALT Alkaline Phosphatase Total Creatine Kinase CK-MB (CK-2) CK-MB (CK-2) Rel Index Troponin T Total Protein Albumin Triglycerides LDL Cholesterol Direct 03/19/20 03/19/20 03/19/20 15:40 18:23 21:32 WBC RBC Hgb Hct MCV MCHC RDW Lymph % (Auto) Angelina % (Auto) Lymph # Angelina # Seg Neutrophils % Seg Neuts % (Manual) Lymphocytes % (Manual) Nucleated RBC % Seg Neutrophils # Seg Neutrophils # Man Lymphocytes # (Manual) Monocytes # (Manual) Eosinophils # (Manual) PT INR Heparin Anti-Xa Level < 0.10 L ABG pH ABG pO2 ABG HCO3 18.3 L ABG O2 Saturation ABG Base Excess -5.4 L ABG Hemoglobin 12.2 L Oxyhemoglobin 94.6 L Sodium Potassium Chloride Carbon Dioxide BUN Creatinine Glucose POC Glucose 348 H Hemoglobin A1c Calcium Magnesium Ferritin AST ALT Alkaline Phosphatase Total Creatine Kinase CK-MB (CK-2) CK-MB (CK-2) Rel Index Troponin T Total Protein Albumin Triglycerides LDL Cholesterol Direct 03/20/20 03/20/20 03/20/20 04:35 05:12 05:12 WBC 11.1 H RBC 3.63 L Hgb 11.0 L Hct 32.7 L D MCV MCHC RDW Lymph % (Auto) Angelina % (Auto) 8.1 H Lymph # Angelina # 0.9 H Seg Neutrophils % 75.8 H Seg Neuts % (Manual) Lymphocytes % (Manual) Nucleated RBC % Seg Neutrophils # 8.4 H Seg Neutrophils # Man Lymphocytes # (Manual) Monocytes # (Manual) Eosinophils # (Manual) PT INR Heparin Anti-Xa Level 0.28 L ABG pH ABG pO2 68.3 L ABG HCO3 ABG O2 Saturation 94.3 L ABG Base Excess ABG Hemoglobin 7.1 L Oxyhemoglobin 92.3 L Sodium Potassium Chloride Carbon Dioxide BUN Creatinine Glucose POC Glucose Hemoglobin A1c Calcium Magnesium Ferritin AST ALT Alkaline Phosphatase Total Creatine Kinase CK-MB (CK-2) CK-MB (CK-2) Rel Index Troponin T Total Protein Albumin Triglycerides LDL Cholesterol Direct 03/20/20 03/20/20 03/20/20 05:12 07:49 12:15 WBC RBC Hgb Hct MCV MCHC RDW Lymph % (Auto) Angelina % (Auto) Lymph # Angelina # Seg Neutrophils % Seg Neuts % (Manual) Lymphocytes % (Manual) Nucleated RBC % Seg Neutrophils # Seg Neutrophils # Man Lymphocytes # (Manual) Monocytes # (Manual) Eosinophils # (Manual) PT INR Heparin Anti-Xa Level ABG pH ABG pO2 ABG HCO3 ABG O2 Saturation ABG Base Excess ABG Hemoglobin Oxyhemoglobin Sodium 134 L Potassium Chloride Carbon Dioxide 21 L BUN 23 H Creatinine Glucose 275 H POC Glucose 294 H 357 H Hemoglobin A1c Calcium Magnesium Ferritin AST ALT Alkaline Phosphatase Total Creatine Kinase CK-MB (CK-2) CK-MB (CK-2) Rel Index Troponin T 3.200 H* D Total Protein Albumin Triglycerides LDL Cholesterol Direct 03/20/20 03/20/20 03/21/20 17:16 22:08 04:44 WBC RBC Hgb Hct MCV MCHC RDW Lymph % (Auto) Angelina % (Auto) Lymph # Angelina # Seg Neutrophils % Seg Neuts % (Manual) Lymphocytes % (Manual) Nucleated RBC % Seg Neutrophils # Seg Neutrophils # Man Lymphocytes # (Manual) Monocytes # (Manual) Eosinophils # (Manual) PT INR Heparin Anti-Xa Level ABG pH ABG pO2 ABG HCO3 ABG O2 Saturation ABG Base Excess ABG Hemoglobin Oxyhemoglobin Sodium 136 L Potassium Chloride Carbon Dioxide 18 L BUN 26 H Creatinine Glucose 266 H POC Glucose 327 H 292 H Hemoglobin A1c Calcium 8.1 L Magnesium Ferritin AST ALT Alkaline Phosphatase Total Creatine Kinase CK-MB (CK-2) CK-MB (CK-2) Rel Index Troponin T Total Protein Albumin Triglycerides LDL Cholesterol Direct 03/21/20 03/21/20 03/21/20 07:50 12:25 15:53 WBC RBC Hgb Hct MCV MCHC RDW Lymph % (Auto) Angelina % (Auto) Lymph # Angelina # Seg Neutrophils % Seg Neuts % (Manual) Lymphocytes % (Manual) Nucleated RBC % Seg Neutrophils # Seg Neutrophils # Man Lymphocytes # (Manual) Monocytes # (Manual) Eosinophils # (Manual) PT INR Heparin Anti-Xa Level ABG pH ABG pO2 ABG HCO3 ABG O2 Saturation ABG Base Excess ABG Hemoglobin Oxyhemoglobin Sodium Potassium Chloride Carbon Dioxide BUN Creatinine Glucose POC Glucose 271 H 314 H 436 H Hemoglobin A1c Calcium Magnesium Ferritin AST ALT Alkaline Phosphatase Total Creatine Kinase CK-MB (CK-2) CK-MB (CK-2) Rel Index Troponin T Total Protein Albumin Triglycerides LDL Cholesterol Direct 03/21/20 03/21/20 03/22/20 17:44 21:55 04:33 WBC RBC Hgb 10.0 L Hct 29.4 L MCV MCHC RDW Lymph % (Auto) Angelina % (Auto) Lymph # Angelina # Seg Neutrophils % Seg Neuts % (Manual) Lymphocytes % (Manual) Nucleated RBC % Seg Neutrophils # Seg Neutrophils # Man Lymphocytes # (Manual) Monocytes # (Manual) Eosinophils # (Manual) PT INR Heparin Anti-Xa Level ABG pH ABG pO2 ABG HCO3 ABG O2 Saturation ABG Base Excess ABG Hemoglobin Oxyhemoglobin Sodium Potassium Chloride Carbon Dioxide BUN Creatinine Glucose POC Glucose 362 H 329 H Hemoglobin A1c Calcium Magnesium Ferritin AST ALT Alkaline Phosphatase Total Creatine Kinase CK-MB (CK-2) CK-MB (CK-2) Rel Index Troponin T Total Protein Albumin Triglycerides LDL Cholesterol Direct 03/22/20 03/22/20 03/22/20 08:57 14:12 19:57 WBC RBC Hgb Hct MCV MCHC RDW Lymph % (Auto) Angelina % (Auto) Lymph # Angelina # Seg Neutrophils % Seg Neuts % (Manual) Lymphocytes % (Manual) Nucleated RBC % Seg Neutrophils # Seg Neutrophils # Man Lymphocytes # (Manual) Monocytes # (Manual) Eosinophils # (Manual) PT INR Heparin Anti-Xa Level ABG pH ABG pO2 ABG HCO3 ABG O2 Saturation ABG Base Excess ABG Hemoglobin Oxyhemoglobin Sodium Potassium Chloride Carbon Dioxide BUN Creatinine Glucose POC Glucose 284 H 319 H 356 H Hemoglobin A1c Calcium Magnesium Ferritin AST ALT Alkaline Phosphatase Total Creatine Kinase CK-MB (CK-2) CK-MB (CK-2) Rel Index Troponin T Total Protein Albumin Triglycerides LDL Cholesterol Direct 03/22/20 03/23/20 03/23/20 21:44 08:18 12:46 WBC RBC Hgb Hct MCV MCHC RDW Lymph % (Auto) Angelina % (Auto) Lymph # Angelina # Seg Neutrophils % Seg Neuts % (Manual) Lymphocytes % (Manual) Nucleated RBC % Seg Neutrophils # Seg Neutrophils # Man Lymphocytes # (Manual) Monocytes # (Manual) Eosinophils # (Manual) PT INR Heparin Anti-Xa Level ABG pH ABG pO2 ABG HCO3 ABG O2 Saturation ABG Base Excess ABG Hemoglobin Oxyhemoglobin Sodium Potassium Chloride Carbon Dioxide BUN Creatinine Glucose POC Glucose 336 H 215 H 262 H Hemoglobin A1c Calcium Magnesium Ferritin AST ALT Alkaline Phosphatase Total Creatine Kinase CK-MB (CK-2) CK-MB (CK-2) Rel Index Troponin T Total Protein Albumin Triglycerides LDL Cholesterol Direct 03/23/20 03/23/20 03/24/20 15:56 22:05 02:35 WBC RBC Hgb 9.0 L Hct 25.8 L MCV MCHC RDW Lymph % (Auto) Angelina % (Auto) Lymph # Angelina # Seg Neutrophils % Seg Neuts % (Manual) Lymphocytes % (Manual) Nucleated RBC % Seg Neutrophils # Seg Neutrophils # Man Lymphocytes # (Manual) Monocytes # (Manual) Eosinophils # (Manual) PT INR Heparin Anti-Xa Level ABG pH ABG pO2 ABG HCO3 ABG O2 Saturation ABG Base Excess ABG Hemoglobin Oxyhemoglobin Sodium Potassium Chloride Carbon Dioxide BUN Creatinine Glucose POC Glucose 246 H 322 H Hemoglobin A1c Calcium Magnesium Ferritin AST ALT Alkaline Phosphatase Total Creatine Kinase CK-MB (CK-2) CK-MB (CK-2) Rel Index Troponin T Total Protein Albumin Triglycerides LDL Cholesterol Direct 03/24/20 03/24/20 03/24/20 07:38 11:45 16:02 WBC RBC Hgb Hct MCV MCHC RDW Lymph % (Auto) Angelina % (Auto) Lymph # Angelina # Seg Neutrophils % Seg Neuts % (Manual) Lymphocytes % (Manual) Nucleated RBC % Seg Neutrophils # Seg Neutrophils # Man Lymphocytes # (Manual) Monocytes # (Manual) Eosinophils # (Manual) PT INR Heparin Anti-Xa Level ABG pH ABG pO2 ABG HCO3 ABG O2 Saturation ABG Base Excess ABG Hemoglobin Oxyhemoglobin Sodium Potassium Chloride Carbon Dioxide BUN Creatinine Glucose POC Glucose 289 H 257 H 150 H Hemoglobin A1c Calcium Magnesium Ferritin AST ALT Alkaline Phosphatase Total Creatine Kinase CK-MB (CK-2) CK-MB (CK-2) Rel Index Troponin T Total Protein Albumin Triglycerides LDL Cholesterol Direct 03/24/20 03/25/20 03/25/20 21:24 04:06 07:39 WBC RBC Hgb Hct MCV MCHC RDW Lymph % (Auto) Angelina % (Auto) Lymph # Angelina # Seg Neutrophils % Seg Neuts % (Manual) Lymphocytes % (Manual) Nucleated RBC % Seg Neutrophils # Seg Neutrophils # Man Lymphocytes # (Manual) Monocytes # (Manual) Eosinophils # (Manual) PT INR Heparin Anti-Xa Level 0.10 L ABG pH ABG pO2 ABG HCO3 ABG O2 Saturation ABG Base Excess ABG Hemoglobin Oxyhemoglobin Sodium Potassium Chloride Carbon Dioxide BUN Creatinine Glucose POC Glucose 228 H 332 H Hemoglobin A1c Calcium Magnesium Ferritin AST ALT Alkaline Phosphatase Total Creatine Kinase CK-MB (CK-2) CK-MB (CK-2) Rel Index Troponin T Total Protein Albumin Triglycerides LDL Cholesterol Direct 03/25/20 03/25/20 03/25/20 08:13 09:30 11:59 WBC 13.1 H RBC 2.82 L Hgb 8.5 L Hct 26.1 L MCV MCHC RDW Lymph % (Auto) Angelina % (Auto) Lymph # Angelina # Seg Neutrophils % Seg Neuts % (Manual) Lymphocytes % (Manual) Nucleated RBC % Seg Neutrophils # Seg Neutrophils # Man Lymphocytes # (Manual) Monocytes # (Manual) Eosinophils # (Manual) PT INR Heparin Anti-Xa Level ABG pH ABG pO2 ABG HCO3 ABG O2 Saturation ABG Base Excess ABG Hemoglobin Oxyhemoglobin Sodium 131 L Potassium 5.3 H Chloride Carbon Dioxide 20 L BUN 39 H Creatinine 1.4 H Glucose 313 H POC Glucose 273 H Hemoglobin A1c Calcium 8.1 L Magnesium Ferritin AST ALT Alkaline Phosphatase Total Creatine Kinase CK-MB (CK-2) CK-MB (CK-2) Rel Index Troponin T Total Protein Albumin Triglycerides LDL Cholesterol Direct 03/25/20 03/25/20 03/25/20 13:54 15:58 18:21 WBC RBC Hgb Hct MCV MCHC RDW Lymph % (Auto) Angelina % (Auto) Lymph # Angelina # Seg Neutrophils % Seg Neuts % (Manual) Lymphocytes % (Manual) Nucleated RBC % Seg Neutrophils # Seg Neutrophils # Man Lymphocytes # (Manual) Monocytes # (Manual) Eosinophils # (Manual) PT INR Heparin Anti-Xa Level ABG pH ABG pO2 ABG HCO3 ABG O2 Saturation ABG Base Excess ABG Hemoglobin Oxyhemoglobin Sodium Potassium Chloride Carbon Dioxide BUN Creatinine Glucose POC Glucose 246 H 235 H 185 H Hemoglobin A1c Calcium Magnesium Ferritin AST ALT Alkaline Phosphatase Total Creatine Kinase CK-MB (CK-2) CK-MB (CK-2) Rel Index Troponin T Total Protein Albumin Triglycerides LDL Cholesterol Direct 03/25/20 03/26/20 03/26/20 20:45 05:15 06:59 WBC 17.4 H 15.6 H RBC 3.05 L 3.05 L Hgb 9.1 L 9.2 L Hct 28.2 L 27.9 L MCV MCHC RDW Lymph % (Auto) 8.9 L 8.9 L Angelina % (Auto) Lymph # Angelina # 1.0 H Seg Neutrophils % 84.4 H 84.8 H Seg Neuts % (Manual) Lymphocytes % (Manual) Nucleated RBC % Seg Neutrophils # 14.7 H 13.2 H Seg Neutrophils # Man Lymphocytes # (Manual) Monocytes # (Manual) Eosinophils # (Manual) PT INR Heparin Anti-Xa Level ABG pH ABG pO2 ABG HCO3 ABG O2 Saturation ABG Base Excess ABG Hemoglobin Oxyhemoglobin Sodium Potassium Chloride Carbon Dioxide BUN Creatinine Glucose POC Glucose 178 H Hemoglobin A1c Calcium Magnesium Ferritin AST ALT Alkaline Phosphatase Total Creatine Kinase CK-MB (CK-2) CK-MB (CK-2) Rel Index Troponin T Total Protein Albumin Triglycerides LDL Cholesterol Direct 03/26/20 03/26/20 03/26/20 06:59 07:43 11:56 WBC RBC Hgb Hct MCV MCHC RDW Lymph % (Auto) Angelina % (Auto) Lymph # Angelina # Seg Neutrophils % Seg Neuts % (Manual) Lymphocytes % (Manual) Nucleated RBC % Seg Neutrophils # Seg Neutrophils # Man Lymphocytes # (Manual) Monocytes # (Manual) Eosinophils # (Manual) PT INR Heparin Anti-Xa Level ABG pH ABG pO2 ABG HCO3 ABG O2 Saturation ABG Base Excess ABG Hemoglobin Oxyhemoglobin Sodium 131 L Potassium 5.8 H Chloride Carbon Dioxide 16 L BUN 42 H Creatinine 1.4 H Glucose 163 H POC Glucose 170 H 198 H Hemoglobin A1c Calcium 8.0 L Magnesium Ferritin AST ALT Alkaline Phosphatase Total Creatine Kinase CK-MB (CK-2) CK-MB (CK-2) Rel Index Troponin T Total Protein Albumin Triglycerides LDL Cholesterol Direct 03/26/20 03/26/20 03/26/20 13:58 16:16 21:00 WBC RBC Hgb Hct MCV MCHC RDW Lymph % (Auto) Angelina % (Auto) Lymph # Angelina # Seg Neutrophils % Seg Neuts % (Manual) Lymphocytes % (Manual) Nucleated RBC % Seg Neutrophils # Seg Neutrophils # Man Lymphocytes # (Manual) Monocytes # (Manual) Eosinophils # (Manual) PT INR Heparin Anti-Xa Level ABG pH ABG pO2 ABG HCO3 ABG O2 Saturation ABG Base Excess ABG Hemoglobin Oxyhemoglobin Sodium 128 L Potassium 6.0 H Chloride Carbon Dioxide 15 L BUN 45 H Creatinine 1.4 H Glucose 190 H POC Glucose 184 H 192 H Hemoglobin A1c Calcium 8.2 L Magnesium Ferritin AST ALT Alkaline Phosphatase Total Creatine Kinase CK-MB (CK-2) CK-MB (CK-2) Rel Index Troponin T Total Protein Albumin Triglycerides LDL Cholesterol Direct 03/27/20 03/27/20 03/27/20 08:32 11:51 14:39 WBC 22.9 H RBC 2.68 L Hgb 7.9 L Hct 24.7 L MCV MCHC RDW Lymph % (Auto) Angelina % (Auto) Lymph # Angelina # Seg Neutrophils % Seg Neuts % (Manual) Lymphocytes % (Manual) Nucleated RBC % Seg Neutrophils # Seg Neutrophils # Man Lymphocytes # (Manual) Monocytes # (Manual) Eosinophils # (Manual) PT INR Heparin Anti-Xa Level ABG pH ABG pO2 ABG HCO3 ABG O2 Saturation ABG Base Excess ABG Hemoglobin Oxyhemoglobin Sodium Potassium Chloride Carbon Dioxide BUN Creatinine Glucose POC Glucose 233 H 252 H Hemoglobin A1c Calcium Magnesium Ferritin AST ALT Alkaline Phosphatase Total Creatine Kinase CK-MB (CK-2) CK-MB (CK-2) Rel Index Troponin T Total Protein Albumin Triglycerides LDL Cholesterol Direct 03/27/20 03/27/20 03/27/20 14:39 15:19 21:35 WBC RBC Hgb Hct MCV MCHC RDW Lymph % (Auto) Angelina % (Auto) Lymph # Angelina # Seg Neutrophils % Seg Neuts % (Manual) Lymphocytes % (Manual) Nucleated RBC % Seg Neutrophils # Seg Neutrophils # Man Lymphocytes # (Manual) Monocytes # (Manual) Eosinophils # (Manual) PT INR Heparin Anti-Xa Level ABG pH ABG pO2 ABG HCO3 ABG O2 Saturation ABG Base Excess ABG Hemoglobin Oxyhemoglobin Sodium 133 L Potassium 5.5 H Chloride Carbon Dioxide 16 L BUN 46 H Creatinine 1.4 H Glucose 225 H POC Glucose 239 H 202 H Hemoglobin A1c Calcium 8.2 L Magnesium Ferritin AST ALT Alkaline Phosphatase Total Creatine Kinase CK-MB (CK-2) CK-MB (CK-2) Rel Index Troponin T Total Protein Albumin Triglycerides LDL Cholesterol Direct 03/28/20 03/28/20 03/28/20 07:39 07:39 08:36 WBC 22.4 H RBC 2.71 L Hgb 7.9 L Hct 24.5 L MCV MCHC RDW Lymph % (Auto) Angelina % (Auto) Lymph # Angelina # Seg Neutrophils % Seg Neuts % (Manual) 88.0 H Lymphocytes % (Manual) 5.0 L Nucleated RBC % Seg Neutrophils # Seg Neutrophils # Man 19.7 H Lymphocytes # (Manual) 1.1 L Monocytes # (Manual) 1.6 H Eosinophils # (Manual) PT INR Heparin Anti-Xa Level ABG pH ABG pO2 ABG HCO3 ABG O2 Saturation ABG Base Excess ABG Hemoglobin Oxyhemoglobin Sodium 134 L Potassium Chloride Carbon Dioxide 19 L BUN 47 H Creatinine Glucose 240 H POC Glucose 253 H Hemoglobin A1c Calcium 7.8 L Magnesium Ferritin AST ALT Alkaline Phosphatase Total Creatine Kinase CK-MB (CK-2) CK-MB (CK-2) Rel Index Troponin T Total Protein Albumin Triglycerides LDL Cholesterol Direct 03/28/20 03/28/20 03/28/20 11:54 17:08 21:17 WBC RBC Hgb Hct MCV MCHC RDW Lymph % (Auto) Angelina % (Auto) Lymph # Angelina # Seg Neutrophils % Seg Neuts % (Manual) Lymphocytes % (Manual) Nucleated RBC % Seg Neutrophils # Seg Neutrophils # Man Lymphocytes # (Manual) Monocytes # (Manual) Eosinophils # (Manual) PT INR Heparin Anti-Xa Level ABG pH ABG pO2 ABG HCO3 ABG O2 Saturation ABG Base Excess ABG Hemoglobin Oxyhemoglobin Sodium Potassium Chloride Carbon Dioxide BUN Creatinine Glucose POC Glucose 306 H 178 H 186 H Hemoglobin A1c Calcium Magnesium Ferritin AST ALT Alkaline Phosphatase Total Creatine Kinase CK-MB (CK-2) CK-MB (CK-2) Rel Index Troponin T Total Protein Albumin Triglycerides LDL Cholesterol Direct 03/29/20 03/29/20 03/29/20 08:32 12:04 14:19 WBC 21.5 H RBC 2.82 L Hgb 8.4 L Hct 26.1 L MCV MCHC RDW Lymph % (Auto) Angelina % (Auto) Lymph # Angelina # Seg Neutrophils % Seg Neuts % (Manual) 85.0 H Lymphocytes % (Manual) 11.0 L Nucleated RBC % 3.0 H Seg Neutrophils # Seg Neutrophils # Man 18.3 H Lymphocytes # (Manual) Monocytes # (Manual) Eosinophils # (Manual) 0.6 H PT INR Heparin Anti-Xa Level ABG pH ABG pO2 ABG HCO3 ABG O2 Saturation ABG Base Excess ABG Hemoglobin Oxyhemoglobin Sodium Potassium Chloride Carbon Dioxide BUN Creatinine Glucose POC Glucose 110 H 263 H Hemoglobin A1c Calcium Magnesium Ferritin AST ALT Alkaline Phosphatase Total Creatine Kinase CK-MB (CK-2) CK-MB (CK-2) Rel Index Troponin T Total Protein Albumin Triglycerides LDL Cholesterol Direct 03/29/20 03/29/20 03/30/20 16:17 22:57 11:00 WBC RBC Hgb Hct MCV MCHC RDW Lymph % (Auto) Angelina % (Auto) Lymph # Angelina # Seg Neutrophils % Seg Neuts % (Manual) Lymphocytes % (Manual) Nucleated RBC % Seg Neutrophils # Seg Neutrophils # Man Lymphocytes # (Manual) Monocytes # (Manual) Eosinophils # (Manual) PT INR Heparin Anti-Xa Level ABG pH ABG pO2 ABG HCO3 ABG O2 Saturation ABG Base Excess ABG Hemoglobin Oxyhemoglobin Sodium Potassium Chloride Carbon Dioxide BUN Creatinine Glucose POC Glucose 109 H 194 H 129 H Hemoglobin A1c Calcium Magnesium Ferritin AST ALT Alkaline Phosphatase Total Creatine Kinase CK-MB (CK-2) CK-MB (CK-2) Rel Index Troponin T Total Protein Albumin Triglycerides LDL Cholesterol Direct 03/30/20 03/30/20 03/31/20 15:16 21:54 04:27 WBC 15.8 H RBC 2.62 L Hgb 7.7 L Hct 24.1 L MCV MCHC RDW Lymph % (Auto) 9.4 L Angelina % (Auto) Lymph # Angelina # Seg Neutrophils % 84.4 H Seg Neuts % (Manual) Lymphocytes % (Manual) Nucleated RBC % Seg Neutrophils # 13.3 H Seg Neutrophils # Man Lymphocytes # (Manual) Monocytes # (Manual) Eosinophils # (Manual) PT INR Heparin Anti-Xa Level ABG pH ABG pO2 ABG HCO3 ABG O2 Saturation ABG Base Excess ABG Hemoglobin Oxyhemoglobin Sodium Potassium Chloride Carbon Dioxide BUN Creatinine Glucose POC Glucose 115 H 166 H Hemoglobin A1c Calcium Magnesium Ferritin AST ALT Alkaline Phosphatase Total Creatine Kinase CK-MB (CK-2) CK-MB (CK-2) Rel Index Troponin T Total Protein Albumin Triglycerides LDL Cholesterol Direct 03/31/20 03/31/20 03/31/20 04:27 07:37 11:46 WBC RBC Hgb Hct MCV MCHC RDW Lymph % (Auto) Angelina % (Auto) Lymph # Angelina # Seg Neutrophils % Seg Neuts % (Manual) Lymphocytes % (Manual) Nucleated RBC % Seg Neutrophils # Seg Neutrophils # Man Lymphocytes # (Manual) Monocytes # (Manual) Eosinophils # (Manual) PT INR Heparin Anti-Xa Level ABG pH ABG pO2 ABG HCO3 ABG O2 Saturation ABG Base Excess ABG Hemoglobin Oxyhemoglobin Sodium 133 L Potassium Chloride 96.6 L Carbon Dioxide 18 L BUN 75 H Creatinine 2.5 H D Glucose 129 H POC Glucose 156 H 224 H Hemoglobin A1c Calcium 8.0 L Magnesium Ferritin AST ALT Alkaline Phosphatase Total Creatine Kinase CK-MB (CK-2) CK-MB (CK-2) Rel Index Troponin T Total Protein Albumin Triglycerides LDL Cholesterol Direct 04/01/20 04/01/20 04/01/20 08:34 10:52 10:52 WBC 12.9 H RBC 2.75 L Hgb 8.2 L Hct 24.8 L MCV MCHC RDW Lymph % (Auto) 10.6 L Angelina % (Auto) Lymph # Angelina # Seg Neutrophils % 83.7 H Seg Neuts % (Manual) Lymphocytes % (Manual) Nucleated RBC % Seg Neutrophils # 10.8 H Seg Neutrophils # Man Lymphocytes # (Manual) Monocytes # (Manual) Eosinophils # (Manual) PT INR Heparin Anti-Xa Level ABG pH ABG pO2 ABG HCO3 ABG O2 Saturation ABG Base Excess ABG Hemoglobin Oxyhemoglobin Sodium 131 L Potassium Chloride 96.1 L Carbon Dioxide 17 L BUN 77 H Creatinine 2.3 H Glucose 205 H POC Glucose 110 H Hemoglobin A1c Calcium 7.9 L Magnesium Ferritin AST ALT Alkaline Phosphatase Total Creatine Kinase CK-MB (CK-2) CK-MB (CK-2) Rel Index Troponin T Total Protein Albumin Triglycerides LDL Cholesterol Direct 04/01/20 04/01/20 04/01/20 12:15 17:22 20:47 WBC RBC Hgb Hct MCV MCHC RDW Lymph % (Auto) Angelina % (Auto) Lymph # Angelina # Seg Neutrophils % Seg Neuts % (Manual) Lymphocytes % (Manual) Nucleated RBC % Seg Neutrophils # Seg Neutrophils # Man Lymphocytes # (Manual) Monocytes # (Manual) Eosinophils # (Manual) PT INR Heparin Anti-Xa Level ABG pH ABG pO2 ABG HCO3 ABG O2 Saturation ABG Base Excess ABG Hemoglobin Oxyhemoglobin Sodium Potassium Chloride Carbon Dioxide BUN Creatinine Glucose POC Glucose 201 H 219 H 156 H Hemoglobin A1c Calcium Magnesium Ferritin AST ALT Alkaline Phosphatase Total Creatine Kinase CK-MB (CK-2) CK-MB (CK-2) Rel Index Troponin T Total Protein Albumin Triglycerides LDL Cholesterol Direct 04/02/20 04/02/20 04/02/20 05:44 05:44 11:32 WBC 15.8 H RBC 2.81 L Hgb 8.2 L Hct 25.7 L MCV MCHC RDW Lymph % (Auto) Angelina % (Auto) Lymph # Angelina # 0.9 H Seg Neutrophils % 77.7 H Seg Neuts % (Manual) Lymphocytes % (Manual) Nucleated RBC % Seg Neutrophils # 12.3 H Seg Neutrophils # Man Lymphocytes # (Manual) Monocytes # (Manual) Eosinophils # (Manual) PT INR Heparin Anti-Xa Level ABG pH ABG pO2 ABG HCO3 ABG O2 Saturation ABG Base Excess ABG Hemoglobin Oxyhemoglobin Sodium 134 L Potassium Chloride Carbon Dioxide 19 L BUN 76 H Creatinine 2.0 H Glucose POC Glucose 116 H Hemoglobin A1c Calcium 8.0 L Magnesium Ferritin AST 291 H ALT 169 H Alkaline Phosphatase 256 H Total Creatine Kinase CK-MB (CK-2) CK-MB (CK-2) Rel Index Troponin T Total Protein 6.1 L Albumin 2.2 L Triglycerides LDL Cholesterol Direct 04/02/20 04/02/20 04/03/20 16:56 22:03 08:13 WBC RBC Hgb Hct MCV MCHC RDW Lymph % (Auto) Angelina % (Auto) Lymph # Angelina # Seg Neutrophils % Seg Neuts % (Manual) Lymphocytes % (Manual) Nucleated RBC % Seg Neutrophils # Seg Neutrophils # Man Lymphocytes # (Manual) Monocytes # (Manual) Eosinophils # (Manual) PT INR Heparin Anti-Xa Level ABG pH ABG pO2 ABG HCO3 ABG O2 Saturation ABG Base Excess ABG Hemoglobin Oxyhemoglobin Sodium Potassium Chloride Carbon Dioxide BUN Creatinine Glucose POC Glucose 141 H 152 H 126 H Hemoglobin A1c Calcium Magnesium Ferritin AST ALT Alkaline Phosphatase Total Creatine Kinase CK-MB (CK-2) CK-MB (CK-2) Rel Index Troponin T Total Protein Albumin Triglycerides LDL Cholesterol Direct 04/03/20 04/03/20 04/03/20 12:11 16:26 21:33 WBC RBC Hgb Hct MCV MCHC RDW Lymph % (Auto) Angelina % (Auto) Lymph # Angelina # Seg Neutrophils % Seg Neuts % (Manual) Lymphocytes % (Manual) Nucleated RBC % Seg Neutrophils # Seg Neutrophils # Man Lymphocytes # (Manual) Monocytes # (Manual) Eosinophils # (Manual) PT INR Heparin Anti-Xa Level ABG pH ABG pO2 ABG HCO3 ABG O2 Saturation ABG Base Excess ABG Hemoglobin Oxyhemoglobin Sodium Potassium Chloride Carbon Dioxide BUN Creatinine Glucose POC Glucose 139 H 164 H 147 H Hemoglobin A1c Calcium Magnesium Ferritin AST ALT Alkaline Phosphatase Total Creatine Kinase CK-MB (CK-2) CK-MB (CK-2) Rel Index Troponin T Total Protein Albumin Triglycerides LDL Cholesterol Direct 04/04/20 04/04/20 04/04/20 04:29 04:29 11:29 WBC 12.3 H RBC 2.88 L Hgb 8.4 L Hct 26.1 L MCV MCHC RDW Lymph % (Auto) Angelina % (Auto) Lymph # Angelina # Seg Neutrophils % 75.4 H Seg Neuts % (Manual) Lymphocytes % (Manual) Nucleated RBC % Seg Neutrophils # 9.3 H Seg Neutrophils # Man Lymphocytes # (Manual) Monocytes # (Manual) Eosinophils # (Manual) PT INR Heparin Anti-Xa Level ABG pH ABG pO2 ABG HCO3 ABG O2 Saturation ABG Base Excess ABG Hemoglobin Oxyhemoglobin Sodium 136 L Potassium Chloride Carbon Dioxide 19 L BUN 71 H Creatinine 1.7 H Glucose POC Glucose 108 H Hemoglobin A1c Calcium 8.0 L Magnesium Ferritin AST 673 H ALT 252 H Alkaline Phosphatase 311 H Total Creatine Kinase CK-MB (CK-2) CK-MB (CK-2) Rel Index Troponin T Total Protein Albumin 2.2 L Triglycerides LDL Cholesterol Direct 04/04/20 04/04/20 04/05/20 16:34 20:58 03:54 WBC 13.7 H RBC 3.03 L Hgb 8.7 L Hct 27.9 L MCV MCHC 31 L RDW 15.5 H Lymph % (Auto) Angelina % (Auto) Lymph # Angelina # Seg Neutrophils % 78.9 H Seg Neuts % (Manual) Lymphocytes % (Manual) Nucleated RBC % Seg Neutrophils # 10.8 H Seg Neutrophils # Man Lymphocytes # (Manual) Monocytes # (Manual) Eosinophils # (Manual) PT INR Heparin Anti-Xa Level ABG pH ABG pO2 ABG HCO3 ABG O2 Saturation ABG Base Excess ABG Hemoglobin Oxyhemoglobin Sodium Potassium Chloride Carbon Dioxide BUN Creatinine Glucose POC Glucose 151 H 131 H Hemoglobin A1c Calcium Magnesium Ferritin AST ALT Alkaline Phosphatase Total Creatine Kinase CK-MB (CK-2) CK-MB (CK-2) Rel Index Troponin T Total Protein Albumin Triglycerides LDL Cholesterol Direct 04/05/20 04/05/20 04/05/20 03:54 15:58 15:58 WBC RBC Hgb Hct MCV MCHC RDW Lymph % (Auto) Angelina % (Auto) Lymph # Angelina # Seg Neutrophils % Seg Neuts % (Manual) Lymphocytes % (Manual) Nucleated RBC % Seg Neutrophils # Seg Neutrophils # Man Lymphocytes # (Manual) Monocytes # (Manual) Eosinophils # (Manual) PT INR Heparin Anti-Xa Level ABG pH ABG pO2 67.1 L ABG HCO3 26.1 H ABG O2 Saturation 93.4 L ABG Base Excess ABG Hemoglobin 9.0 L Oxyhemoglobin 91.6 L Sodium 136 L Potassium 5.5 H Chloride Carbon Dioxide 21 L BUN 79 H Creatinine 1.9 H Glucose 63 L POC Glucose 129 H Hemoglobin A1c Calcium 8.2 L Magnesium Ferritin AST 696 H ALT 262 H Alkaline Phosphatase 325 H Total Creatine Kinase CK-MB (CK-2) CK-MB (CK-2) Rel Index Troponin T Total Protein Albumin 2.3 L Triglycerides LDL Cholesterol Direct 04/05/20 04/06/20 04/06/20 22:33 07:14 07:14 WBC RBC Hgb Hct MCV MCHC RDW Lymph % (Auto) Angelina % (Auto) Lymph # Angelina # Seg Neutrophils % Seg Neuts % (Manual) Lymphocytes % (Manual) Nucleated RBC % Seg Neutrophils # Seg Neutrophils # Man Lymphocytes # (Manual) Monocytes # (Manual) Eosinophils # (Manual) PT INR Heparin Anti-Xa Level ABG pH ABG pO2 ABG HCO3 ABG O2 Saturation ABG Base Excess ABG Hemoglobin Oxyhemoglobin Sodium Potassium 5.6 H Chloride Carbon Dioxide BUN 83 H Creatinine 1.9 H Glucose 202 H POC Glucose 253 H Hemoglobin A1c Calcium Magnesium Ferritin 444.2 H AST 469 H ALT 237 H Alkaline Phosphatase 332 H Total Creatine Kinase CK-MB (CK-2) CK-MB (CK-2) Rel Index Troponin T Total Protein Albumin 2.2 L Triglycerides LDL Cholesterol Direct 04/06/20 04/06/20 04/06/20 08:23 12:00 13:56 WBC RBC Hgb Hct MCV MCHC RDW Lymph % (Auto) Angelina % (Auto) Lymph # Angelina # Seg Neutrophils % Seg Neuts % (Manual) Lymphocytes % (Manual) Nucleated RBC % Seg Neutrophils # Seg Neutrophils # Man Lymphocytes # (Manual) Monocytes # (Manual) Eosinophils # (Manual) PT 27.0 H INR 2.44 H Heparin Anti-Xa Level ABG pH ABG pO2 ABG HCO3 ABG O2 Saturation ABG Base Excess ABG Hemoglobin Oxyhemoglobin Sodium Potassium Chloride Carbon Dioxide BUN Creatinine Glucose POC Glucose 226 H 176 H Hemoglobin A1c Calcium Magnesium Ferritin AST ALT Alkaline Phosphatase Total Creatine Kinase CK-MB (CK-2) CK-MB (CK-2) Rel Index Troponin T Total Protein Albumin Triglycerides LDL Cholesterol Direct 04/06/20 04/07/20 04/07/20 20:45 04:58 04:58 WBC RBC Hgb Hct MCV MCHC RDW Lymph % (Auto) Angelina % (Auto) Lymph # Angelina # Seg Neutrophils % Seg Neuts % (Manual) Lymphocytes % (Manual) Nucleated RBC % Seg Neutrophils # Seg Neutrophils # Man Lymphocytes # (Manual) Monocytes # (Manual) Eosinophils # (Manual) PT 30.9 H INR 2.89 H Heparin Anti-Xa Level ABG pH ABG pO2 ABG HCO3 ABG O2 Saturation ABG Base Excess ABG Hemoglobin Oxyhemoglobin Sodium Potassium 6.0 H Chloride Carbon Dioxide BUN 85 H Creatinine 2.1 H Glucose 177 H POC Glucose 139 H Hemoglobin A1c Calcium Magnesium Ferritin AST 351 H ALT 215 H Alkaline Phosphatase 332 H Total Creatine Kinase CK-MB (CK-2) CK-MB (CK-2) Rel Index Troponin T Total Protein Albumin 2.7 L Triglycerides LDL Cholesterol Direct 04/07/20 04/07/20 04/08/20 07:53 11:51 04:44 WBC 11.7 H RBC 3.07 L Hgb 9.1 L Hct 28.9 L MCV MCHC RDW 16.8 H Lymph % (Auto) 12.4 L Angelina % (Auto) Lymph # Angelina # Seg Neutrophils % 83.3 H Seg Neuts % (Manual) Lymphocytes % (Manual) Nucleated RBC % Seg Neutrophils # 9.7 H Seg Neutrophils # Man Lymphocytes # (Manual) Monocytes # (Manual) Eosinophils # (Manual) PT INR Heparin Anti-Xa Level ABG pH ABG pO2 ABG HCO3 ABG O2 Saturation ABG Base Excess ABG Hemoglobin Oxyhemoglobin Sodium Potassium Chloride Carbon Dioxide BUN Creatinine Glucose POC Glucose 167 H 120 H Hemoglobin A1c Calcium Magnesium Ferritin AST ALT Alkaline Phosphatase Total Creatine Kinase CK-MB (CK-2) CK-MB (CK-2) Rel Index Troponin T Total Protein Albumin Triglycerides LDL Cholesterol Direct 04/08/20 04/08/20 04/08/20 04:44 07:19 08:43 WBC RBC Hgb Hct MCV MCHC RDW Lymph % (Auto) Angelina % (Auto) Lymph # Angelina # Seg Neutrophils % Seg Neuts % (Manual) Lymphocytes % (Manual) Nucleated RBC % Seg Neutrophils # Seg Neutrophils # Man Lymphocytes # (Manual) Monocytes # (Manual) Eosinophils # (Manual) PT INR Heparin Anti-Xa Level ABG pH ABG pO2 ABG HCO3 ABG O2 Saturation ABG Base Excess ABG Hemoglobin Oxyhemoglobin Sodium Potassium 6.3 H* Chloride Carbon Dioxide 21 L BUN 89 H Creatinine 1.9 H Glucose 63 L POC Glucose 65 L 168 H Hemoglobin A1c Calcium Magnesium Ferritin AST 370 H ALT 211 H Alkaline Phosphatase 320 H Total Creatine Kinase CK-MB (CK-2) CK-MB (CK-2) Rel Index Troponin T Total Protein Albumin 2.6 L Triglycerides LDL Cholesterol Direct 04/08/20 04/08/20 04/08/20 12:53 16:38 21:47 WBC RBC Hgb Hct MCV MCHC RDW Lymph % (Auto) Angelina % (Auto) Lymph # Angelina # Seg Neutrophils % Seg Neuts % (Manual) Lymphocytes % (Manual) Nucleated RBC % Seg Neutrophils # Seg Neutrophils # Man Lymphocytes # (Manual) Monocytes # (Manual) Eosinophils # (Manual) PT INR Heparin Anti-Xa Level ABG pH ABG pO2 ABG HCO3 ABG O2 Saturation ABG Base Excess ABG Hemoglobin Oxyhemoglobin Sodium Potassium 6.0 H Chloride Carbon Dioxide BUN 90 H Creatinine 2.1 H Glucose 124 H POC Glucose 129 H 118 H Hemoglobin A1c Calcium Magnesium Ferritin AST ALT Alkaline Phosphatase Total Creatine Kinase CK-MB (CK-2) CK-MB (CK-2) Rel Index Troponin T Total Protein Albumin Triglycerides LDL Cholesterol Direct 04/09/20 04/09/20 04/09/20 03:45 08:04 19:10 WBC RBC Hgb Hct MCV MCHC RDW Lymph % (Auto) Angelina % (Auto) Lymph # Angelina # Seg Neutrophils % Seg Neuts % (Manual) Lymphocytes % (Manual) Nucleated RBC % Seg Neutrophils # Seg Neutrophils # Man Lymphocytes # (Manual) Monocytes # (Manual) Eosinophils # (Manual) PT INR Heparin Anti-Xa Level ABG pH 7.304 L ABG pO2 72.2 L ABG HCO3 ABG O2 Saturation 93.7 L ABG Base Excess -3.3 L ABG Hemoglobin 8.9 L Oxyhemoglobin 91.8 L Sodium Potassium 6.6 H* 6.5 H* Chloride Carbon Dioxide 21 L BUN 99 H 100 H Creatinine 2.2 H 2.3 H Glucose POC Glucose Hemoglobin A1c Calcium 8.2 L Magnesium Ferritin AST ALT Alkaline Phosphatase Total Creatine Kinase CK-MB (CK-2) CK-MB (CK-2) Rel Index Troponin T Total Protein Albumin Triglycerides LDL Cholesterol Direct 04/10/20 04/10/20 04/10/20 05:48 05:48 08:53 WBC RBC 3.01 L Hgb 8.9 L Hct 28.4 L MCV 95 H MCHC 31 L RDW 17.6 H Lymph % (Auto) 11.4 L Angelina % (Auto) Lymph # 1.1 L Angelina # Seg Neutrophils % 81.1 H Seg Neuts % (Manual) Lymphocytes % (Manual) Nucleated RBC % Seg Neutrophils # 8.1 H Seg Neutrophils # Man Lymphocytes # (Manual) Monocytes # (Manual) Eosinophils # (Manual) PT INR Heparin Anti-Xa Level ABG pH ABG pO2 ABG HCO3 ABG O2 Saturation ABG Base Excess ABG Hemoglobin Oxyhemoglobin Sodium Potassium 5.2 H Chloride Carbon Dioxide BUN 104 H Creatinine 2.2 H Glucose 129 H POC Glucose 110 H Hemoglobin A1c Calcium Magnesium 2.80 H Ferritin AST 502 H ALT 249 H Alkaline Phosphatase 323 H Total Creatine Kinase CK-MB (CK-2) CK-MB (CK-2) Rel Index Troponin T Total Protein Albumin 2.5 L Triglycerides LDL Cholesterol Direct 04/10/20 11:42 WBC RBC Hgb Hct MCV MCHC RDW Lymph % (Auto) Angelina % (Auto) Lymph # Angelina # Seg Neutrophils % Seg Neuts % (Manual) Lymphocytes % (Manual) Nucleated RBC % Seg Neutrophils # Seg Neutrophils # Man Lymphocytes # (Manual) Monocytes # (Manual) Eosinophils # (Manual) PT INR Heparin Anti-Xa Level ABG pH ABG pO2 ABG HCO3 ABG O2 Saturation ABG Base Excess ABG Hemoglobin Oxyhemoglobin Sodium Potassium Chloride Carbon Dioxide BUN Creatinine Glucose POC Glucose 135 H Hemoglobin A1c Calcium Magnesium Ferritin AST ALT Alkaline Phosphatase Total Creatine Kinase CK-MB (CK-2) CK-MB (CK-2) Rel Index Troponin T Total Protein Albumin Triglycerides LDL Cholesterol Direct
--- NOTE | 2020-04-10 14:12 | Consultation ---
History of Present Illness - Reason for Consult Consult date: 04/10/20 acute renal failure - History of Present Illness The patient is a 54 YO male with history significant for Morbid Obesity, DM type 2, HTN, CVA without any residual deficits, CAD s/p CABG x2, pulmonary embolism, DVT and current daily smoker who presented to [facility] ED 03/18 with complaint of left foot pain and discoloration for about a week. Patient is not able to provide any history at this time and there was no family member at the bedside. There was no fall or trauma to the foot. Prior to this admission he was seen at [facility] and was prescribed pain medication. He has also had increasing pain on the left foot. Patient denied any fever, chills, chest aryan, shortness of breath, nausea, vomiting or diarrhea. Vascular was consulted, he was diagnosed with acute LE ischemia, underwent LE angioplasty/Revascularization with 4 Compartment Fasciotomy and subsequently L BKA on 03/25. Followed by GI for elevated Transaminases and ID for sepsis. Labs significant for Creat 2.2, BUN 102 and K 5.2. Nephrology was consulted for further evaluation. Past History Past Medical History: CAD, COPD, diabetes, hypertension, hyperlipidemia, other (Morbid obesity) Past Surgical History: CABG, Other (New BKA) Social history: smoking (Current every day smoker) Family history: no significant family history Medications and Allergies Allergies Allergy/AdvReac Type Severity Reaction Status Date / Time No Known Allergies Allergy Unverified 03/18/20 15:17 Home Medications Medication Instructions Recorded Confirmed Last Taken Type AtorvaSTATin [Lipitor] 20 mg PO QHS 03/20/20 03/20/20 03/14/20 History Clopidogrel [Plavix] 75 mg PO QHS 03/20/20 03/20/20 03/14/20 History Famotidine [Acid Controller] 20 mg PO BID 03/20/20 03/20/20 03/14/20 History Fenofibrate Nanocrystallized 48 mg PO DAILY 03/20/20 03/20/20 03/14/20 History [Fenofibrate] Metoprolol Tartrate 25 mg PO BID 03/20/20 03/20/20 03/14/20 History Pregabalin [Lyrica] 150 mg PO BID 03/20/20 03/20/20 03/14/20 History amLODIPine [Norvasc] 5 mg PO DAILY 03/20/20 03/20/20 03/14/20 History glipiZIDE [Glucotrol] 10 mg PO BID 03/20/20 03/20/20 03/14/20 History hydroCHLOROthiazide [HCTZ] 25 mg PO QDAY 03/20/20 03/20/20 03/14/20 History lisinopriL [Zestril TAB] 40 mg PO QDAY 03/20/20 03/20/20 03/14/20 History Active Meds: Active Medications Acetaminophen/Hydrocodone Bitart ([place] 5/325) 2 each PO Q4H PRN PRN Reason: Pain, Moderate (4-6) Last Admin: 04/06/20 09:52 Dose: 2 each Documented by: Albuterol (Proventil) 2.5 mg IH Q6HRT PRN PRN Reason: Shortness Of Breath Arformoterol Tartrate (Brovana Nebu) 15 mcg IH Q12HRT LOI Last Admin: 04/10/20 09:21 Dose: 15 mcg Documented by: Atorvastatin Calcium (Lipitor) 40 mg PO QHS [facility] Last Admin: 04/09/20 23:04 Dose: 40 mg Documented by: Budesonide (Pulmicort) 0.5 mg IH Q12HRT LOI Last Admin: 04/10/20 09:21 Dose: 0.5 mg Documented by: Clopidogrel Bisulfate (Plavix) 75 mg PO QDAY [facility] Last Admin: 04/10/20 09:56 Dose: 75 mg Documented by: Dextrose (D50w (25gm) Syringe) 50 ml IV Q30MIN PRN; Protocol PRN Reason: Hypoglycemia Last Admin: 04/08/20 07:42 Dose: 50 ml Documented by: Diphenhydramine HCl (Benadryl) 25 mg IV Q4H PRN PRN Reason: Itching Furosemide (Lasix) 40 mg IV 0600,1800 [facility] Last Admin: 04/10/20 05:47 Dose: 40 mg Documented by: Guaifenesin (Guaifenesin Dm Syrup) 10 ml PO Q4H PRN PRN Reason: Cough Last Admin: 04/09/20 21:17 Dose: 10 ml Documented by: Hydromorphone/Sodium Chloride (Dilaudid Cotton Baler 6mg/30ml) 0 mg IV DIRECT LOI; Protocol Last Admin: 03/30/20 02:09 Dose: 1 cart Documented by: Sodium Chloride (Nacl 0.9% 1000 Ml) 1,000 mls @ 75 mls/hr IV DIRECT [facility] Last Admin: 04/09/20 21:09 Dose: 75 mls/hr Documented by: Cefepime HCl (Cefepime/Ns 1 Gm/100 Ml) 1 gm in 100 mls @ 200 mls/hr IV Q12HR [facility]; Protocol Last Admin: 04/10/20 11:24 Dose: 200 mls/hr Documented by: Insulin Human Lispro (Humalog) 0 unit SUB-Q ACHS [facility]; Protocol Last Admin: 04/10/20 08:06 Dose: Not Given Documented by: Ipratropium [place] (Atrovent) 0.5 mg IH Q6HRT PRN PRN Reason: Shortness Of Breath Magnesium Hydroxide (Milk Of Magnesia) 30 ml PO Q4H PRN PRN Reason: Constipation Metoprolol Tartrate (Metoprolol) 50 mg PO BID [facility] Last Admin: 04/10/20 09:58 Dose: Not Given Documented by: Naloxone HCl (Naloxone) 0.1 mg IV Q2MIN PRN PRN Reason: Res Rate </= 8 or 02 SAT < 92% Ondansetron HCl (Zofran) 4 mg IV Q8H PRN PRN Reason: Nausea And Vomiting Last Admin: 04/05/20 01:46 Dose: 4 mg Documented by: Pantoprazole Sodium (Protonix) 40 mg PO BID [facility] Last Admin: 04/10/20 09:56 Dose: 40 mg Documented by: Pregabalin (Pregabalin) 150 mg PO BID [facility] Last Admin: 04/09/20 23:05 Dose: Not Given Documented by: Sodium Chloride (Sodium Chloride Flush Syringe 10 Ml) 10 ml IV BID [facility] Last Admin: 04/10/20 09:56 Dose: 10 ml Documented by: Sodium Chloride (Sodium Chloride Flush Syringe 10 Ml) 10 ml IV PRN PRN PRN Reason: LINE FLUSH Last Admin: 04/10/20 05:48 Dose: 10 ml Documented by: Zolpidem Tartrate (Ambien) 5 mg PO QHS PRN PRN Reason: Sleep Last Admin: 04/05/20 22:32 Dose: 5 mg Documented by: Review of Systems ROS unobtainable: due to mental status Exam - Vital Signs Vital signs: Vital Signs Temp Pulse Resp BP Pulse Ox 99.5 F 121 H 20 128/88 97 03/18/20 15:18 03/18/20 15:18 03/18/20 15:18 03/18/20 15:18 03/18/20 15:18 Results - Lab Results 04/10/20 05:48 04/10/20 05:48 Most recent lab results ABG pH 7.304 pH Units (7.350-7.450) L 04/09/20 03:45 ABG pCO2 47.4 mm Hg 04/09/20 03:45 ABG pO2 72.2 mm Hg (80.0-90.0) L 04/09/20 03:45 ABG HCO3 23.0 mmol/L (20.0-26.0) 04/09/20 03:45 ABG O2 Saturation 93.7 % (95.0-99.0) L 04/09/20 03:45 Calcium 8.7 mg/dL (8.4-10.2) 04/10/20 05:48 Magnesium 2.80 mg/dL (1.7-2.3) H 04/10/20 05:48 Assessment and Plan 1. Acute kidney injury: Vasomotor DYLON in the setting of sepsis and hypotension. US negative for hydro. Urine studies ordered. Monitor renal function. Continue IV fluids. Creatinine leveled off. Avoid nephrotoxic agents. Meds dosage based on GFR. 2. FEN: Hyperkalemia, improved. Monitor lytes and volume status. 3. Sepsis: PNA vs L stump infection. Followed by ID. 4. Hypotension: BP is improving. Continue IV fluids. 5. Acute left lower extremity ischemia: 03/19/2020 status post endovascular revascularization. 03/19/2020 s/p left lower extremity 4 compartment fasciotomy. 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 6. Non-ST elevation SD : Patient has history of CABG ,patient denies any chest pain. Followed by Cards. 7. Acute systolic CHF; EF 30-35%: Beta-blockers. 8. Acute metabolic encephalopathy: Worsening. Multifactorial. Followed by Neurology. 9. Acute hypoxic respiratory failure: Supportive care, pulmonary following. O2 as required. 10. Elevated Transaminases: Followed by GI. 11. DM with hyperglycemia: Accu-Check, sliding scale coverage, ADA diet. HbA1C 11. 12. Anemia: Closely monitor and transfuse as needed. - Subjective: Patient was seen and examined at the bedside. - General Appearance General appearance: well-developed, obese, appears stated age, on NC O2 HEENT: ATNC, PERRL Neck: Trachea midline Respiratory: appears ctab Cardiology: regular, S1S2, no murmur Gastrointestinal: normoactive bowel sounds, not tender, not distended Integumentary: L BKA dressing Neurologic: stuporous, non-verbal, not following any command Ext: trace LE edema
[2020-04-10] MEDS: PREGABALIN 75 MG CAP PO SCH ×2 (14:23→22:56)
--- NOTE | 2020-04-10 14:25 | Progress Note ---
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 Patient Obese. Patient presently sleeping on venturi mask, FIO2 50% and O2 saturation running 100%. Chest xray 04/08/20 reported Progressive airspace disease, worse on the left. ABG FIO2 36% ABG pH 7.304 pH Units (7.350-7.450) L 04/09/20 03:45 ABG pCO2 47.4 mm Hg 04/09/20 03:45 ABG pO2 72.2 mm Hg (80.0-90.0) L 04/09/20 03:45 ABG O2 Saturation 93.7 % (95.0-99.0) L 04/09/20 03:45 Patients K+ came down to 5.2. Patient afebrile and No leukocytosis Patient is on cefepime Patient is on Apixaban. Patient is on Protonix for GI prophylaxis. Recommend incentive spirometry. Patient is on Brovanna/Budesonide aerosol treatments q 12 hours. In addition recommend albuterol/atrovent aerosol treatments q 6 hours PRN for shortness of breath. Robitussin DM PRN for cough. Continue physical therapy. 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 (2) Cardiomyopathy Current Visit: Yes Status: Acute Plan to address problem: Management as per primary care and cardiology. (3) Elevated troponin Current Visit: Yes Status: Acute Plan to address problem: Management as per primary care and cardiology. (4) Hx of two vessel coronary artery bypass graft Current Visit: Yes Status: Acute Plan to address problem: Management as per cardiology. (5) NSTEMI (non-ST elevated myocardial infarction) Current Visit: Yes Status: Acute Plan to address problem: Management as per cardiology. (6) HTN (hypertension) Current Visit: Yes Status: Chronic Plan to address problem: Management as per primary care. (7) History of CVA (cerebrovascular accident) Current Visit: Yes Status: Chronic Plan to address problem: management as per primary care. (8) Smoker Current Visit: Yes Status: Chronic Plan to address problem: Counseled to stop smoking. (9) Pneumonia Current Visit: Yes Status: Acute Plan to address problem: Patient is on cefepime . Patient afebrile and no leukocytosis to day. Recommend to repeat chest xray. (10) Hyperkalemia Current Visit: Yes Status: Acute Plan to address problem: Patients to days K+ 5.2. 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 Patient Obese. Patient presently sleeping on venturi mask, FIO2 50% and O2 saturation running 100%. Chest xray 04/08/20 reported Progressive airspace disease, worse on the left. ABG FIO2 36% ABG pH 7.304 pH Units (7.350-7.450) L 04/09/20 03:45 ABG pCO2 47.4 mm Hg 04/09/20 03:45 ABG pO2 72.2 mm Hg (80.0-90.0) L 04/09/20 03:45 ABG O2 Saturation 93.7 % (95.0-99.0) L 04/09/20 03:45 Patients K+ came down to 5.2. Patient afebrile and No leukocytosis Patient is on cefepime Patient is on Apixaban. Patient is on Protonix for GI prophylaxis. Recommend incentive spirometry. Patient is on Brovanna/Budesonide aerosol treatments q 12 hours. In addition recommend albuterol/atrovent aerosol treatments q 6 hours PRN for shortness of breath. Robitussin DM PRN for cough. Continue physical therapy. Objective Vital Signs - 12hr 04/10/20 04/10/20 04/10/20 03:54 08:42 09:15 Temperature 96.0 F L 98.9 F Pulse Rate 69 54 L 92 H Pulse Rate [ Anterior Bilateral Throughout] Respiratory 16 20 25 H Rate Respiratory Rate [Anterior Bilateral Throughout] Blood Pressure 103/69 99/68 O2 Sat by Pulse 100 94 98 Oximetry 04/10/20 04/10/20 09:21 10:00 Temperature Pulse Rate Pulse Rate [ 94 H Anterior Bilateral Throughout] Respiratory Rate Respiratory 18 Rate [Anterior Bilateral Throughout] Blood Pressure O2 Sat by Pulse 96 Oximetry Constitutional: no acute distress, asleep, other (Sleeping on Venturi mask.) Eyes: non-icteric ENT: oropharynx moist Neck: supple, no lymphadenopathy, no JVD Effort: mildly labored Ascultation: Left: rhonchi, Bilateral: diminished breath sounds, other (+ referred upper airway sounds) Percussion: Bilateral: not dull Cardiovascular: regular rate and rhythm Gastrointestinal: normoactive bowel sounds, soft, non-tender, non-distended (protuberant) Integumentary: rash Extremities: cool, edema (right lower extremity), other (left BKA with clean dressing) Neurologic: normal mental status, non-focal exam, pupils equal and round, motor strength normal and Psychiatric: other (lethargic) CBC and BMP: 04/11/20 06:26 04/11/20 06:26 ABG, PT/INR, D-dimer: ABG ABG pH 7.304 pH Units (7.350-7.450) L 04/09/20 03:45 ABG pCO2 47.4 mm Hg 04/09/20 03:45 ABG pO2 72.2 mm Hg (80.0-90.0) L 04/09/20 03:45 ABG O2 Saturation 93.7 % (95.0-99.0) L 04/09/20 03:45 PT/INR, D-dimer PT 30.9 Sec. (12.2-14.9) H 04/07/20 04:58 INR 2.89 (0.87-1.13) H 04/07/20 04:58 Abnormal lab findings: Abnormal Labs 03/18/20 03/18/20 03/18/20 18:28 18:28 20:56 WBC 12.3 H RBC Hgb Hct MCV MCHC RDW Lymph % (Auto) 11.0 L [place] % (Auto) 9.8 H Lymph # [place] # 1.2 H Seg Neutrophils % 78.4 H Seg Neuts % (Manual) Lymphocytes % (Manual) Nucleated RBC % Seg Neutrophils # 9.6 H Seg Neutrophils # Man Lymphocytes # (Manual) Monocytes # (Manual) Eosinophils # (Manual) PT INR Heparin Anti-Xa Level ABG pH ABG pO2 ABG HCO3 ABG O2 Saturation ABG Base Excess ABG Hemoglobin Oxyhemoglobin Sodium 132 L Potassium Chloride 91.9 L Carbon Dioxide 20 L BUN Creatinine 1.4 H Glucose 406 H POC Glucose Hemoglobin A1c Calcium Magnesium Ferritin AST ALT Alkaline Phosphatase Total Creatine Kinase 2727 H 2492 H CK-MB (CK-2) 135.9 H 107.2 H CK-MB (CK-2) Rel Index 4.3 H Troponin T 5.110 H* 3.960 H* D Total Protein Albumin Triglycerides 188 H LDL Cholesterol Direct 141 H 03/18/20 03/19/20 03/19/20 22:21 01:57 08:08 WBC RBC Hgb Hct MCV MCHC RDW Lymph % (Auto) [place] % (Auto) Lymph # [place] # Seg Neutrophils % Seg Neuts % (Manual) Lymphocytes % (Manual) Nucleated RBC % Seg Neutrophils # Seg Neutrophils # Man Lymphocytes # (Manual) Monocytes # (Manual) Eosinophils # (Manual) PT INR Heparin Anti-Xa Level ABG pH ABG pO2 ABG HCO3 ABG O2 Saturation ABG Base Excess ABG Hemoglobin Oxyhemoglobin Sodium Potassium Chloride Carbon Dioxide BUN Creatinine Glucose POC Glucose 317 H Hemoglobin A1c 11.0 H Calcium Magnesium Ferritin AST ALT Alkaline Phosphatase Total Creatine Kinase 7255 H CK-MB (CK-2) 79.3 H CK-MB (CK-2) Rel Index Troponin T 5.540 H* D Total Protein Albumin Triglycerides LDL Cholesterol Direct 03/19/20 03/19/20 03/19/20 08:08 08:08 08:08 WBC 13.3 H RBC Hgb Hct MCV MCHC RDW Lymph % (Auto) 10.7 L [place] % (Auto) 8.5 H Lymph # [place] # 1.1 H Seg Neutrophils % 80.0 H Seg Neuts % (Manual) Lymphocytes % (Manual) Nucleated RBC % Seg Neutrophils # 10.6 H Seg Neutrophils # Man Lymphocytes # (Manual) Monocytes # (Manual) Eosinophils # (Manual) PT INR Heparin Anti-Xa Level 0.10 L ABG pH ABG pO2 ABG HCO3 ABG O2 Saturation ABG Base Excess ABG Hemoglobin Oxyhemoglobin Sodium 133 L Potassium 5.1 H Chloride Carbon Dioxide 17 L BUN 23 H Creatinine Glucose 313 H POC Glucose Hemoglobin A1c Calcium Magnesium Ferritin AST ALT Alkaline Phosphatase Total Creatine Kinase CK-MB (CK-2) CK-MB (CK-2) Rel Index Troponin T Total Protein Albumin Triglycerides LDL Cholesterol Direct 03/19/20 03/19/20 03/19/20 15:40 18:23 21:32 WBC RBC Hgb Hct MCV MCHC RDW Lymph % (Auto) [place] % (Auto) Lymph # [place] # Seg Neutrophils % Seg Neuts % (Manual) Lymphocytes % (Manual) Nucleated RBC % Seg Neutrophils # Seg Neutrophils # Man Lymphocytes # (Manual) Monocytes # (Manual) Eosinophils # (Manual) PT INR Heparin Anti-Xa Level < 0.10 L ABG pH ABG pO2 ABG HCO3 18.3 L ABG O2 Saturation ABG Base Excess -5.4 L ABG Hemoglobin 12.2 L Oxyhemoglobin 94.6 L Sodium Potassium Chloride Carbon Dioxide BUN Creatinine Glucose POC Glucose 348 H Hemoglobin A1c Calcium Magnesium Ferritin AST ALT Alkaline Phosphatase Total Creatine Kinase CK-MB (CK-2) CK-MB (CK-2) Rel Index Troponin T Total Protein Albumin Triglycerides LDL Cholesterol Direct 03/20/20 03/20/20 03/20/20 04:35 05:12 05:12 WBC 11.1 H RBC 3.63 L Hgb 11.0 L Hct 32.7 L D MCV MCHC RDW Lymph % (Auto) [place] % (Auto) 8.1 H Lymph # [place] # 0.9 H Seg Neutrophils % 75.8 H Seg Neuts % (Manual) Lymphocytes % (Manual) Nucleated RBC % Seg Neutrophils # 8.4 H Seg Neutrophils # Man Lymphocytes # (Manual) Monocytes # (Manual) Eosinophils # (Manual) PT INR Heparin Anti-Xa Level 0.28 L ABG pH ABG pO2 68.3 L ABG HCO3 ABG O2 Saturation 94.3 L ABG Base Excess ABG Hemoglobin 7.1 L Oxyhemoglobin 92.3 L Sodium Potassium Chloride Carbon Dioxide BUN Creatinine Glucose POC Glucose Hemoglobin A1c Calcium Magnesium Ferritin AST ALT Alkaline Phosphatase Total Creatine Kinase CK-MB (CK-2) CK-MB (CK-2) Rel Index Troponin T Total Protein Albumin Triglycerides LDL Cholesterol Direct 03/20/20 03/20/20 03/20/20 05:12 07:49 12:15 WBC RBC Hgb Hct MCV MCHC RDW Lymph % (Auto) [place] % (Auto) Lymph # [place] # Seg Neutrophils % Seg Neuts % (Manual) Lymphocytes % (Manual) Nucleated RBC % Seg Neutrophils # Seg Neutrophils # Man Lymphocytes # (Manual) Monocytes # (Manual) Eosinophils # (Manual) PT INR Heparin Anti-Xa Level ABG pH ABG pO2 ABG HCO3 ABG O2 Saturation ABG Base Excess ABG Hemoglobin Oxyhemoglobin Sodium 134 L Potassium Chloride Carbon Dioxide 21 L BUN 23 H Creatinine Glucose 275 H POC Glucose 294 H 357 H Hemoglobin A1c Calcium Magnesium Ferritin AST ALT Alkaline Phosphatase Total Creatine Kinase CK-MB (CK-2) CK-MB (CK-2) Rel Index Troponin T 3.200 H* D Total Protein Albumin Triglycerides LDL Cholesterol Direct 03/20/20 03/20/20 03/21/20 17:16 22:08 04:44 WBC RBC Hgb Hct MCV MCHC RDW Lymph % (Auto) [place] % (Auto) Lymph # [place] # Seg Neutrophils % Seg Neuts % (Manual) Lymphocytes % (Manual) Nucleated RBC % Seg Neutrophils # Seg Neutrophils # Man Lymphocytes # (Manual) Monocytes # (Manual) Eosinophils # (Manual) PT INR Heparin Anti-Xa Level ABG pH ABG pO2 ABG HCO3 ABG O2 Saturation ABG Base Excess ABG Hemoglobin Oxyhemoglobin Sodium 136 L Potassium Chloride Carbon Dioxide 18 L BUN 26 H Creatinine Glucose 266 H POC Glucose 327 H 292 H Hemoglobin A1c Calcium 8.1 L Magnesium Ferritin AST ALT Alkaline Phosphatase Total Creatine Kinase CK-MB (CK-2) CK-MB (CK-2) Rel Index Troponin T Total Protein Albumin Triglycerides LDL Cholesterol Direct 03/21/20 03/21/20 03/21/20 07:50 12:25 15:53 WBC RBC Hgb Hct MCV MCHC RDW Lymph % (Auto) [place] % (Auto) Lymph # [place] # Seg Neutrophils % Seg Neuts % (Manual) Lymphocytes % (Manual) Nucleated RBC % Seg Neutrophils # Seg Neutrophils # Man Lymphocytes # (Manual) Monocytes # (Manual) Eosinophils # (Manual) PT INR Heparin Anti-Xa Level ABG pH ABG pO2 ABG HCO3 ABG O2 Saturation ABG Base Excess ABG Hemoglobin Oxyhemoglobin Sodium Potassium Chloride Carbon Dioxide BUN Creatinine Glucose POC Glucose 271 H 314 H 436 H Hemoglobin A1c Calcium Magnesium Ferritin AST ALT Alkaline Phosphatase Total Creatine Kinase CK-MB (CK-2) CK-MB (CK-2) Rel Index Troponin T Total Protein Albumin Triglycerides LDL Cholesterol Direct 03/21/20 03/21/20 03/22/20 17:44 21:55 04:33 WBC RBC Hgb 10.0 L Hct 29.4 L MCV MCHC RDW Lymph % (Auto) [place] % (Auto) Lymph # [place] # Seg Neutrophils % Seg Neuts % (Manual) Lymphocytes % (Manual) Nucleated RBC % Seg Neutrophils # Seg Neutrophils # Man Lymphocytes # (Manual) Monocytes # (Manual) Eosinophils # (Manual) PT INR Heparin Anti-Xa Level ABG pH ABG pO2 ABG HCO3 ABG O2 Saturation ABG Base Excess ABG Hemoglobin Oxyhemoglobin Sodium Potassium Chloride Carbon Dioxide BUN Creatinine Glucose POC Glucose 362 H 329 H Hemoglobin A1c Calcium Magnesium Ferritin AST ALT Alkaline Phosphatase Total Creatine Kinase CK-MB (CK-2) CK-MB (CK-2) Rel Index Troponin T Total Protein Albumin Triglycerides LDL Cholesterol Direct 03/22/20 03/22/20 03/22/20 08:57 14:12 19:57 WBC RBC Hgb Hct MCV MCHC RDW Lymph % (Auto) [place] % (Auto) Lymph # [place] # Seg Neutrophils % Seg Neuts % (Manual) Lymphocytes % (Manual) Nucleated RBC % Seg Neutrophils # Seg Neutrophils # Man Lymphocytes # (Manual) Monocytes # (Manual) Eosinophils # (Manual) PT INR Heparin Anti-Xa Level ABG pH ABG pO2 ABG HCO3 ABG O2 Saturation ABG Base Excess ABG Hemoglobin Oxyhemoglobin Sodium Potassium Chloride Carbon Dioxide BUN Creatinine Glucose POC Glucose 284 H 319 H 356 H Hemoglobin A1c Calcium Magnesium Ferritin AST ALT Alkaline Phosphatase Total Creatine Kinase CK-MB (CK-2) CK-MB (CK-2) Rel Index Troponin T Total Protein Albumin Triglycerides LDL Cholesterol Direct 03/22/20 03/23/20 03/23/20 21:44 08:18 12:46 WBC RBC Hgb Hct MCV MCHC RDW Lymph % (Auto) [place] % (Auto) Lymph # [place] # Seg Neutrophils % Seg Neuts % (Manual) Lymphocytes % (Manual) Nucleated RBC % Seg Neutrophils # Seg Neutrophils # Man Lymphocytes # (Manual) Monocytes # (Manual) Eosinophils # (Manual) PT INR Heparin Anti-Xa Level ABG pH ABG pO2 ABG HCO3 ABG O2 Saturation ABG Base Excess ABG Hemoglobin Oxyhemoglobin Sodium Potassium Chloride Carbon Dioxide BUN Creatinine Glucose POC Glucose 336 H 215 H 262 H Hemoglobin A1c Calcium Magnesium Ferritin AST ALT Alkaline Phosphatase Total Creatine Kinase CK-MB (CK-2) CK-MB (CK-2) Rel Index Troponin T Total Protein Albumin Triglycerides LDL Cholesterol Direct 03/23/20 03/23/20 03/24/20 15:56 22:05 02:35 WBC RBC Hgb 9.0 L Hct 25.8 L MCV MCHC RDW Lymph % (Auto) [place] % (Auto) Lymph # [place] # Seg Neutrophils % Seg Neuts % (Manual) Lymphocytes % (Manual) Nucleated RBC % Seg Neutrophils # Seg Neutrophils # Man Lymphocytes # (Manual) Monocytes # (Manual) Eosinophils # (Manual) PT INR Heparin Anti-Xa Level ABG pH ABG pO2 ABG HCO3 ABG O2 Saturation ABG Base Excess ABG Hemoglobin Oxyhemoglobin Sodium Potassium Chloride Carbon Dioxide BUN Creatinine Glucose POC Glucose 246 H 322 H Hemoglobin A1c Calcium Magnesium Ferritin AST ALT Alkaline Phosphatase Total Creatine Kinase CK-MB (CK-2) CK-MB (CK-2) Rel Index Troponin T Total Protein Albumin Triglycerides LDL Cholesterol Direct 03/24/20 03/24/20 03/24/20 07:38 11:45 16:02 WBC RBC Hgb Hct MCV MCHC RDW Lymph % (Auto) [place] % (Auto) Lymph # [place] # Seg Neutrophils % Seg Neuts % (Manual) Lymphocytes % (Manual) Nucleated RBC % Seg Neutrophils # Seg Neutrophils # Man Lymphocytes # (Manual) Monocytes # (Manual) Eosinophils # (Manual) PT INR Heparin Anti-Xa Level ABG pH ABG pO2 ABG HCO3 ABG O2 Saturation ABG Base Excess ABG Hemoglobin Oxyhemoglobin Sodium Potassium Chloride Carbon Dioxide BUN Creatinine Glucose POC Glucose 289 H 257 H 150 H Hemoglobin A1c Calcium Magnesium Ferritin AST ALT Alkaline Phosphatase Total Creatine Kinase CK-MB (CK-2) CK-MB (CK-2) Rel Index Troponin T Total Protein Albumin Triglycerides LDL Cholesterol Direct 03/24/20 03/25/20 03/25/20 21:24 04:06 07:39 WBC RBC Hgb Hct MCV MCHC RDW Lymph % (Auto) [place] % (Auto) Lymph # [place] # Seg Neutrophils % Seg Neuts % (Manual) Lymphocytes % (Manual) Nucleated RBC % Seg Neutrophils # Seg Neutrophils # Man Lymphocytes # (Manual) Monocytes # (Manual) Eosinophils # (Manual) PT INR Heparin Anti-Xa Level 0.10 L ABG pH ABG pO2 ABG HCO3 ABG O2 Saturation ABG Base Excess ABG Hemoglobin Oxyhemoglobin Sodium Potassium Chloride Carbon Dioxide BUN Creatinine Glucose POC Glucose 228 H 332 H Hemoglobin A1c Calcium Magnesium Ferritin AST ALT Alkaline Phosphatase Total Creatine Kinase CK-MB (CK-2) CK-MB (CK-2) Rel Index Troponin T Total Protein Albumin Triglycerides LDL Cholesterol Direct 03/25/20 03/25/20 03/25/20 08:13 09:30 11:59 WBC 13.1 H RBC 2.82 L Hgb 8.5 L Hct 26.1 L MCV MCHC RDW Lymph % (Auto) [place] % (Auto) Lymph # [place] # Seg Neutrophils % Seg Neuts % (Manual) Lymphocytes % (Manual) Nucleated RBC % Seg Neutrophils # Seg Neutrophils # Man Lymphocytes # (Manual) Monocytes # (Manual) Eosinophils # (Manual) PT INR Heparin Anti-Xa Level ABG pH ABG pO2 ABG HCO3 ABG O2 Saturation ABG Base Excess ABG Hemoglobin Oxyhemoglobin Sodium 131 L Potassium 5.3 H Chloride Carbon Dioxide 20 L BUN 39 H Creatinine 1.4 H Glucose 313 H POC Glucose 273 H Hemoglobin A1c Calcium 8.1 L Magnesium Ferritin AST ALT Alkaline Phosphatase Total Creatine Kinase CK-MB (CK-2) CK-MB (CK-2) Rel Index Troponin T Total Protein Albumin Triglycerides LDL Cholesterol Direct 03/25/20 03/25/20 03/25/20 13:54 15:58 18:21 WBC RBC Hgb Hct MCV MCHC RDW Lymph % (Auto) [place] % (Auto) Lymph # [place] # Seg Neutrophils % Seg Neuts % (Manual) Lymphocytes % (Manual) Nucleated RBC % Seg Neutrophils # Seg Neutrophils # Man Lymphocytes # (Manual) Monocytes # (Manual) Eosinophils # (Manual) PT INR Heparin Anti-Xa Level ABG pH ABG pO2 ABG HCO3 ABG O2 Saturation ABG Base Excess ABG Hemoglobin Oxyhemoglobin Sodium Potassium Chloride Carbon Dioxide BUN Creatinine Glucose POC Glucose 246 H 235 H 185 H Hemoglobin A1c Calcium Magnesium Ferritin AST ALT Alkaline Phosphatase Total Creatine Kinase CK-MB (CK-2) CK-MB (CK-2) Rel Index Troponin T Total Protein Albumin Triglycerides LDL Cholesterol Direct 03/25/20 03/26/20 03/26/20 20:45 05:15 06:59 WBC 17.4 H 15.6 H RBC 3.05 L 3.05 L Hgb 9.1 L 9.2 L Hct 28.2 L 27.9 L MCV MCHC RDW Lymph % (Auto) 8.9 L 8.9 L [place] % (Auto) Lymph # [place] # 1.0 H Seg Neutrophils % 84.4 H 84.8 H Seg Neuts % (Manual) Lymphocytes % (Manual) Nucleated RBC % Seg Neutrophils # 14.7 H 13.2 H Seg Neutrophils # Man Lymphocytes # (Manual) Monocytes # (Manual) Eosinophils # (Manual) PT INR Heparin Anti-Xa Level ABG pH ABG pO2 ABG HCO3 ABG O2 Saturation ABG Base Excess ABG Hemoglobin Oxyhemoglobin Sodium Potassium Chloride Carbon Dioxide BUN Creatinine Glucose POC Glucose 178 H Hemoglobin A1c Calcium Magnesium Ferritin AST ALT Alkaline Phosphatase Total Creatine Kinase CK-MB (CK-2) CK-MB (CK-2) Rel Index Troponin T Total Protein Albumin Triglycerides LDL Cholesterol Direct 03/26/20 03/26/20 03/26/20 06:59 07:43 11:56 WBC RBC Hgb Hct MCV MCHC RDW Lymph % (Auto) [place] % (Auto) Lymph # [place] # Seg Neutrophils % Seg Neuts % (Manual) Lymphocytes % (Manual) Nucleated RBC % Seg Neutrophils # Seg Neutrophils # Man Lymphocytes # (Manual) Monocytes # (Manual) Eosinophils # (Manual) PT INR Heparin Anti-Xa Level ABG pH ABG pO2 ABG HCO3 ABG O2 Saturation ABG Base Excess ABG Hemoglobin Oxyhemoglobin Sodium 131 L Potassium 5.8 H Chloride Carbon Dioxide 16 L BUN 42 H Creatinine 1.4 H Glucose 163 H POC Glucose 170 H 198 H Hemoglobin A1c Calcium 8.0 L Magnesium Ferritin AST ALT Alkaline Phosphatase Total Creatine Kinase CK-MB (CK-2) CK-MB (CK-2) Rel Index Troponin T Total Protein Albumin Triglycerides LDL Cholesterol Direct 03/26/20 03/26/20 03/26/20 13:58 16:16 21:00 WBC RBC Hgb Hct MCV MCHC RDW Lymph % (Auto) [place] % (Auto) Lymph # [place] # Seg Neutrophils % Seg Neuts % (Manual) Lymphocytes % (Manual) Nucleated RBC % Seg Neutrophils # Seg Neutrophils # Man Lymphocytes # (Manual) Monocytes # (Manual) Eosinophils # (Manual) PT INR Heparin Anti-Xa Level ABG pH ABG pO2 ABG HCO3 ABG O2 Saturation ABG Base Excess ABG Hemoglobin Oxyhemoglobin Sodium 128 L Potassium 6.0 H Chloride Carbon Dioxide 15 L BUN 45 H Creatinine 1.4 H Glucose 190 H POC Glucose 184 H 192 H Hemoglobin A1c Calcium 8.2 L Magnesium Ferritin AST ALT Alkaline Phosphatase Total Creatine Kinase CK-MB (CK-2) CK-MB (CK-2) Rel Index Troponin T Total Protein Albumin Triglycerides LDL Cholesterol Direct 03/27/20 03/27/20 03/27/20 08:32 11:51 14:39 WBC 22.9 H RBC 2.68 L Hgb 7.9 L Hct 24.7 L MCV MCHC RDW Lymph % (Auto) [place] % (Auto) Lymph # [place] # Seg Neutrophils % Seg Neuts % (Manual) Lymphocytes % (Manual) Nucleated RBC % Seg Neutrophils # Seg Neutrophils # Man Lymphocytes # (Manual) Monocytes # (Manual) Eosinophils # (Manual) PT INR Heparin Anti-Xa Level ABG pH ABG pO2 ABG HCO3 ABG O2 Saturation ABG Base Excess ABG Hemoglobin Oxyhemoglobin Sodium Potassium Chloride Carbon Dioxide BUN Creatinine Glucose POC Glucose 233 H 252 H Hemoglobin A1c Calcium Magnesium Ferritin AST ALT Alkaline Phosphatase Total Creatine Kinase CK-MB (CK-2) CK-MB (CK-2) Rel Index Troponin T Total Protein Albumin Triglycerides LDL Cholesterol Direct 03/27/20 03/27/20 03/27/20 14:39 15:19 21:35 WBC RBC Hgb Hct MCV MCHC RDW Lymph % (Auto) [place] % (Auto) Lymph # [place] # Seg Neutrophils % Seg Neuts % (Manual) Lymphocytes % (Manual) Nucleated RBC % Seg Neutrophils # Seg Neutrophils # Man Lymphocytes # (Manual) Monocytes # (Manual) Eosinophils # (Manual) PT INR Heparin Anti-Xa Level ABG pH ABG pO2 ABG HCO3 ABG O2 Saturation ABG Base Excess ABG Hemoglobin Oxyhemoglobin Sodium 133 L Potassium 5.5 H Chloride Carbon Dioxide 16 L BUN 46 H Creatinine 1.4 H Glucose 225 H POC Glucose 239 H 202 H Hemoglobin A1c Calcium 8.2 L Magnesium Ferritin AST ALT Alkaline Phosphatase Total Creatine Kinase CK-MB (CK-2) CK-MB (CK-2) Rel Index Troponin T Total Protein Albumin Triglycerides LDL Cholesterol Direct 03/28/20 03/28/20 03/28/20 07:39 07:39 08:36 WBC 22.4 H RBC 2.71 L Hgb 7.9 L Hct 24.5 L MCV MCHC RDW Lymph % (Auto) [place] % (Auto) Lymph # [place] # Seg Neutrophils % Seg Neuts % (Manual) 88.0 H Lymphocytes % (Manual) 5.0 L Nucleated RBC % Seg Neutrophils # Seg Neutrophils # Man 19.7 H Lymphocytes # (Manual) 1.1 L Monocytes # (Manual) 1.6 H Eosinophils # (Manual) PT INR Heparin Anti-Xa Level ABG pH ABG pO2 ABG HCO3 ABG O2 Saturation ABG Base Excess ABG Hemoglobin Oxyhemoglobin Sodium 134 L Potassium Chloride Carbon Dioxide 19 L BUN 47 H Creatinine Glucose 240 H POC Glucose 253 H Hemoglobin A1c Calcium 7.8 L Magnesium Ferritin AST ALT Alkaline Phosphatase Total Creatine Kinase CK-MB (CK-2) CK-MB (CK-2) Rel Index Troponin T Total Protein Albumin Triglycerides LDL Cholesterol Direct 03/28/20 03/28/20 03/28/20 11:54 17:08 21:17 WBC RBC Hgb Hct MCV MCHC RDW Lymph % (Auto) [place] % (Auto) Lymph # [place] # Seg Neutrophils % Seg Neuts % (Manual) Lymphocytes % (Manual) Nucleated RBC % Seg Neutrophils # Seg Neutrophils # Man Lymphocytes # (Manual) Monocytes # (Manual) Eosinophils # (Manual) PT INR Heparin Anti-Xa Level ABG pH ABG pO2 ABG HCO3 ABG O2 Saturation ABG Base Excess ABG Hemoglobin Oxyhemoglobin Sodium Potassium Chloride Carbon Dioxide BUN Creatinine Glucose POC Glucose 306 H 178 H 186 H Hemoglobin A1c Calcium Magnesium Ferritin AST ALT Alkaline Phosphatase Total Creatine Kinase CK-MB (CK-2) CK-MB (CK-2) Rel Index Troponin T Total Protein Albumin Triglycerides LDL Cholesterol Direct 03/29/20 03/29/20 03/29/20 08:32 12:04 14:19 WBC 21.5 H RBC 2.82 L Hgb 8.4 L Hct 26.1 L MCV MCHC RDW Lymph % (Auto) [place] % (Auto) Lymph # [place] # Seg Neutrophils % Seg Neuts % (Manual) 85.0 H Lymphocytes % (Manual) 11.0 L Nucleated RBC % 3.0 H Seg Neutrophils # Seg Neutrophils # Man 18.3 H Lymphocytes # (Manual) Monocytes # (Manual) Eosinophils # (Manual) 0.6 H PT INR Heparin Anti-Xa Level ABG pH ABG pO2 ABG HCO3 ABG O2 Saturation ABG Base Excess ABG Hemoglobin Oxyhemoglobin Sodium Potassium Chloride Carbon Dioxide BUN Creatinine Glucose POC Glucose 110 H 263 H Hemoglobin A1c Calcium Magnesium Ferritin AST ALT Alkaline Phosphatase Total Creatine Kinase CK-MB (CK-2) CK-MB (CK-2) Rel Index Troponin T Total Protein Albumin Triglycerides LDL Cholesterol Direct 03/29/20 03/29/20 03/30/20 16:17 22:57 11:00 WBC RBC Hgb Hct MCV MCHC RDW Lymph % (Auto) [place] % (Auto) Lymph # [place] # Seg Neutrophils % Seg Neuts % (Manual) Lymphocytes % (Manual) Nucleated RBC % Seg Neutrophils # Seg Neutrophils # Man Lymphocytes # (Manual) Monocytes # (Manual) Eosinophils # (Manual) PT INR Heparin Anti-Xa Level ABG pH ABG pO2 ABG HCO3 ABG O2 Saturation ABG Base Excess ABG Hemoglobin Oxyhemoglobin Sodium Potassium Chloride Carbon Dioxide BUN Creatinine Glucose POC Glucose 109 H 194 H 129 H Hemoglobin A1c Calcium Magnesium Ferritin AST ALT Alkaline Phosphatase Total Creatine Kinase CK-MB (CK-2) CK-MB (CK-2) Rel Index Troponin T Total Protein Albumin Triglycerides LDL Cholesterol Direct 03/30/20 03/30/20 03/31/20 15:16 21:54 04:27 WBC 15.8 H RBC 2.62 L Hgb 7.7 L Hct 24.1 L MCV MCHC RDW Lymph % (Auto) 9.4 L [place] % (Auto) Lymph # [place] # Seg Neutrophils % 84.4 H Seg Neuts % (Manual) Lymphocytes % (Manual) Nucleated RBC % Seg Neutrophils # 13.3 H Seg Neutrophils # Man Lymphocytes # (Manual) Monocytes # (Manual) Eosinophils # (Manual) PT INR Heparin Anti-Xa Level ABG pH ABG pO2 ABG HCO3 ABG O2 Saturation ABG Base Excess ABG Hemoglobin Oxyhemoglobin Sodium Potassium Chloride Carbon Dioxide BUN Creatinine Glucose POC Glucose 115 H 166 H Hemoglobin A1c Calcium Magnesium Ferritin AST ALT Alkaline Phosphatase Total Creatine Kinase CK-MB (CK-2) CK-MB (CK-2) Rel Index Troponin T Total Protein Albumin Triglycerides LDL Cholesterol Direct 03/31/20 03/31/20 03/31/20 04:27 07:37 11:46 WBC RBC Hgb Hct MCV MCHC RDW Lymph % (Auto) [place] % (Auto) Lymph # [place] # Seg Neutrophils % Seg Neuts % (Manual) Lymphocytes % (Manual) Nucleated RBC % Seg Neutrophils # Seg Neutrophils # Man Lymphocytes # (Manual) Monocytes # (Manual) Eosinophils # (Manual) PT INR Heparin Anti-Xa Level ABG pH ABG pO2 ABG HCO3 ABG O2 Saturation ABG Base Excess ABG Hemoglobin Oxyhemoglobin Sodium 133 L Potassium Chloride 96.6 L Carbon Dioxide 18 L BUN 75 H Creatinine 2.5 H D Glucose 129 H POC Glucose 156 H 224 H Hemoglobin A1c Calcium 8.0 L Magnesium Ferritin AST ALT Alkaline Phosphatase Total Creatine Kinase CK-MB (CK-2) CK-MB (CK-2) Rel Index Troponin T Total Protein Albumin Triglycerides LDL Cholesterol Direct 04/01/20 04/01/20 04/01/20 08:34 10:52 10:52 WBC 12.9 H RBC 2.75 L Hgb 8.2 L Hct 24.8 L MCV MCHC RDW Lymph % (Auto) 10.6 L [place] % (Auto) Lymph # [place] # Seg Neutrophils % 83.7 H Seg Neuts % (Manual) Lymphocytes % (Manual) Nucleated RBC % Seg Neutrophils # 10.8 H Seg Neutrophils # Man Lymphocytes # (Manual) Monocytes # (Manual) Eosinophils # (Manual) PT INR Heparin Anti-Xa Level ABG pH ABG pO2 ABG HCO3 ABG O2 Saturation ABG Base Excess ABG Hemoglobin Oxyhemoglobin Sodium 131 L Potassium Chloride 96.1 L Carbon Dioxide 17 L BUN 77 H Creatinine 2.3 H Glucose 205 H POC Glucose 110 H Hemoglobin A1c Calcium 7.9 L Magnesium Ferritin AST ALT Alkaline Phosphatase Total Creatine Kinase CK-MB (CK-2) CK-MB (CK-2) Rel Index Troponin T Total Protein Albumin Triglycerides LDL Cholesterol Direct 04/01/20 04/01/20 04/01/20 12:15 17:22 20:47 WBC RBC Hgb Hct MCV MCHC RDW Lymph % (Auto) [place] % (Auto) Lymph # [place] # Seg Neutrophils % Seg Neuts % (Manual) Lymphocytes % (Manual) Nucleated RBC % Seg Neutrophils # Seg Neutrophils # Man Lymphocytes # (Manual) Monocytes # (Manual) Eosinophils # (Manual) PT INR Heparin Anti-Xa Level ABG pH ABG pO2 ABG HCO3 ABG O2 Saturation ABG Base Excess ABG Hemoglobin Oxyhemoglobin Sodium Potassium Chloride Carbon Dioxide BUN Creatinine Glucose POC Glucose 201 H 219 H 156 H Hemoglobin A1c Calcium Magnesium Ferritin AST ALT Alkaline Phosphatase Total Creatine Kinase CK-MB (CK-2) CK-MB (CK-2) Rel Index Troponin T Total Protein Albumin Triglycerides LDL Cholesterol Direct 04/02/20 04/02/20 04/02/20 05:44 05:44 11:32 WBC 15.8 H RBC 2.81 L Hgb 8.2 L Hct 25.7 L MCV MCHC RDW Lymph % (Auto) [place] % (Auto) Lymph # [place] # 0.9 H Seg Neutrophils % 77.7 H Seg Neuts % (Manual) Lymphocytes % (Manual) Nucleated RBC % Seg Neutrophils # 12.3 H Seg Neutrophils # Man Lymphocytes # (Manual) Monocytes # (Manual) Eosinophils # (Manual) PT INR Heparin Anti-Xa Level ABG pH ABG pO2 ABG HCO3 ABG O2 Saturation ABG Base Excess ABG Hemoglobin Oxyhemoglobin Sodium 134 L Potassium Chloride Carbon Dioxide 19 L BUN 76 H Creatinine 2.0 H Glucose POC Glucose 116 H Hemoglobin A1c Calcium 8.0 L Magnesium Ferritin AST 291 H ALT 169 H Alkaline Phosphatase 256 H Total Creatine Kinase CK-MB (CK-2) CK-MB (CK-2) Rel Index Troponin T Total Protein 6.1 L Albumin 2.2 L Triglycerides LDL Cholesterol Direct 04/02/20 04/02/20 04/03/20 16:56 22:03 08:13 WBC RBC Hgb Hct MCV MCHC RDW Lymph % (Auto) [place] % (Auto) Lymph # [place] # Seg Neutrophils % Seg Neuts % (Manual) Lymphocytes % (Manual) Nucleated RBC % Seg Neutrophils # Seg Neutrophils # Man Lymphocytes # (Manual) Monocytes # (Manual) Eosinophils # (Manual) PT INR Heparin Anti-Xa Level ABG pH ABG pO2 ABG HCO3 ABG O2 Saturation ABG Base Excess ABG Hemoglobin Oxyhemoglobin Sodium Potassium Chloride Carbon Dioxide BUN Creatinine Glucose POC Glucose 141 H 152 H 126 H Hemoglobin A1c Calcium Magnesium Ferritin AST ALT Alkaline Phosphatase Total Creatine Kinase CK-MB (CK-2) CK-MB (CK-2) Rel Index Troponin T Total Protein Albumin Triglycerides LDL Cholesterol Direct 04/03/20 04/03/20 04/03/20 12:11 16:26 21:33 WBC RBC Hgb Hct MCV MCHC RDW Lymph % (Auto) [place] % (Auto) Lymph # [place] # Seg Neutrophils % Seg Neuts % (Manual) Lymphocytes % (Manual) Nucleated RBC % Seg Neutrophils # Seg Neutrophils # Man Lymphocytes # (Manual) Monocytes # (Manual) Eosinophils # (Manual) PT INR Heparin Anti-Xa Level ABG pH ABG pO2 ABG HCO3 ABG O2 Saturation ABG Base Excess ABG Hemoglobin Oxyhemoglobin Sodium Potassium Chloride Carbon Dioxide BUN Creatinine Glucose POC Glucose 139 H 164 H 147 H Hemoglobin A1c Calcium Magnesium Ferritin AST ALT Alkaline Phosphatase Total Creatine Kinase CK-MB (CK-2) CK-MB (CK-2) Rel Index Troponin T Total Protein Albumin Triglycerides LDL Cholesterol Direct 04/04/20 04/04/20 04/04/20 04:29 04:29 11:29 WBC 12.3 H RBC 2.88 L Hgb 8.4 L Hct 26.1 L MCV MCHC RDW Lymph % (Auto) [place] % (Auto) Lymph # [place] # Seg Neutrophils % 75.4 H Seg Neuts % (Manual) Lymphocytes % (Manual) Nucleated RBC % Seg Neutrophils # 9.3 H Seg Neutrophils # Man Lymphocytes # (Manual) Monocytes # (Manual) Eosinophils # (Manual) PT INR Heparin Anti-Xa Level ABG pH ABG pO2 ABG HCO3 ABG O2 Saturation ABG Base Excess ABG Hemoglobin Oxyhemoglobin Sodium 136 L Potassium Chloride Carbon Dioxide 19 L BUN 71 H Creatinine 1.7 H Glucose POC Glucose 108 H Hemoglobin A1c Calcium 8.0 L Magnesium Ferritin AST 673 H ALT 252 H Alkaline Phosphatase 311 H Total Creatine Kinase CK-MB (CK-2) CK-MB (CK-2) Rel Index Troponin T Total Protein Albumin 2.2 L Triglycerides LDL Cholesterol Direct 04/04/20 04/04/20 04/05/20 16:34 20:58 03:54 WBC 13.7 H RBC 3.03 L Hgb 8.7 L Hct 27.9 L MCV MCHC 31 L RDW 15.5 H Lymph % (Auto) [place] % (Auto) Lymph # [place] # Seg Neutrophils % 78.9 H Seg Neuts % (Manual) Lymphocytes % (Manual) Nucleated RBC % Seg Neutrophils # 10.8 H Seg Neutrophils # Man Lymphocytes # (Manual) Monocytes # (Manual) Eosinophils # (Manual) PT INR Heparin Anti-Xa Level ABG pH ABG pO2 ABG HCO3 ABG O2 Saturation ABG Base Excess ABG Hemoglobin Oxyhemoglobin Sodium Potassium Chloride Carbon Dioxide BUN Creatinine Glucose POC Glucose 151 H 131 H Hemoglobin A1c Calcium Magnesium Ferritin AST ALT Alkaline Phosphatase Total Creatine Kinase CK-MB (CK-2) CK-MB (CK-2) Rel Index Troponin T Total Protein Albumin Triglycerides LDL Cholesterol Direct 04/05/20 04/05/20 04/05/20 03:54 15:58 15:58 WBC RBC Hgb Hct MCV MCHC RDW Lymph % (Auto) [place] % (Auto) Lymph # [place] # Seg Neutrophils % Seg Neuts % (Manual) Lymphocytes % (Manual) Nucleated RBC % Seg Neutrophils # Seg Neutrophils # Man Lymphocytes # (Manual) Monocytes # (Manual) Eosinophils # (Manual) PT INR Heparin Anti-Xa Level ABG pH ABG pO2 67.1 L ABG HCO3 26.1 H ABG O2 Saturation 93.4 L ABG Base Excess ABG Hemoglobin 9.0 L Oxyhemoglobin 91.6 L Sodium 136 L Potassium 5.5 H Chloride Carbon Dioxide 21 L BUN 79 H Creatinine 1.9 H Glucose 63 L POC Glucose 129 H Hemoglobin A1c Calcium 8.2 L Magnesium Ferritin AST 696 H ALT 262 H Alkaline Phosphatase 325 H Total Creatine Kinase CK-MB (CK-2) CK-MB (CK-2) Rel Index Troponin T Total Protein Albumin 2.3 L Triglycerides LDL Cholesterol Direct 04/05/20 04/06/20 04/06/20 22:33 07:14 07:14 WBC RBC Hgb Hct MCV MCHC RDW Lymph % (Auto) [place] % (Auto) Lymph # [place] # Seg Neutrophils % Seg Neuts % (Manual) Lymphocytes % (Manual) Nucleated RBC % Seg Neutrophils # Seg Neutrophils # Man Lymphocytes # (Manual) Monocytes # (Manual) Eosinophils # (Manual) PT INR Heparin Anti-Xa Level ABG pH ABG pO2 ABG HCO3 ABG O2 Saturation ABG Base Excess ABG Hemoglobin Oxyhemoglobin Sodium Potassium 5.6 H Chloride Carbon Dioxide BUN 83 H Creatinine 1.9 H Glucose 202 H POC Glucose 253 H Hemoglobin A1c Calcium Magnesium Ferritin 444.2 H AST 469 H ALT 237 H Alkaline Phosphatase 332 H Total Creatine Kinase CK-MB (CK-2) CK-MB (CK-2) Rel Index Troponin T Total Protein Albumin 2.2 L Triglycerides LDL Cholesterol Direct 04/06/20 04/06/20 04/06/20 08:23 12:00 13:56 WBC RBC Hgb Hct MCV MCHC RDW Lymph % (Auto) [place] % (Auto) Lymph # [place] # Seg Neutrophils % Seg Neuts % (Manual) Lymphocytes % (Manual) Nucleated RBC % Seg Neutrophils # Seg Neutrophils # Man Lymphocytes # (Manual) Monocytes # (Manual) Eosinophils # (Manual) PT 27.0 H INR 2.44 H Heparin Anti-Xa Level ABG pH ABG pO2 ABG HCO3 ABG O2 Saturation ABG Base Excess ABG Hemoglobin Oxyhemoglobin Sodium Potassium Chloride Carbon Dioxide BUN Creatinine Glucose POC Glucose 226 H 176 H Hemoglobin A1c Calcium Magnesium Ferritin AST ALT Alkaline Phosphatase Total Creatine Kinase CK-MB (CK-2) CK-MB (CK-2) Rel Index Troponin T Total Protein Albumin Triglycerides LDL Cholesterol Direct 04/06/20 04/07/20 04/07/20 20:45 04:58 04:58 WBC RBC Hgb Hct MCV MCHC RDW Lymph % (Auto) [place] % (Auto) Lymph # [place] # Seg Neutrophils % Seg Neuts % (Manual) Lymphocytes % (Manual) Nucleated RBC % Seg Neutrophils # Seg Neutrophils # Man Lymphocytes # (Manual) Monocytes # (Manual) Eosinophils # (Manual) PT 30.9 H INR 2.89 H Heparin Anti-Xa Level ABG pH ABG pO2 ABG HCO3 ABG O2 Saturation ABG Base Excess ABG Hemoglobin Oxyhemoglobin Sodium Potassium 6.0 H Chloride Carbon Dioxide BUN 85 H Creatinine 2.1 H Glucose 177 H POC Glucose 139 H Hemoglobin A1c Calcium Magnesium Ferritin AST 351 H ALT 215 H Alkaline Phosphatase 332 H Total Creatine Kinase CK-MB (CK-2) CK-MB (CK-2) Rel Index Troponin T Total Protein Albumin 2.7 L Triglycerides LDL Cholesterol Direct 04/07/20 04/07/20 04/08/20 07:53 11:51 04:44 WBC 11.7 H RBC 3.07 L Hgb 9.1 L Hct 28.9 L MCV MCHC RDW 16.8 H Lymph % (Auto) 12.4 L [place] % (Auto) Lymph # [place] # Seg Neutrophils % 83.3 H Seg Neuts % (Manual) Lymphocytes % (Manual) Nucleated RBC % Seg Neutrophils # 9.7 H Seg Neutrophils # Man Lymphocytes # (Manual) Monocytes # (Manual) Eosinophils # (Manual) PT INR Heparin Anti-Xa Level ABG pH ABG pO2 ABG HCO3 ABG O2 Saturation ABG Base Excess ABG Hemoglobin Oxyhemoglobin Sodium Potassium Chloride Carbon Dioxide BUN Creatinine Glucose POC Glucose 167 H 120 H Hemoglobin A1c Calcium Magnesium Ferritin AST ALT Alkaline Phosphatase Total Creatine Kinase CK-MB (CK-2) CK-MB (CK-2) Rel Index Troponin T Total Protein Albumin Triglycerides LDL Cholesterol Direct 04/08/20 04/08/20 04/08/20 04:44 07:19 08:43 WBC RBC Hgb Hct MCV MCHC RDW Lymph % (Auto) [place] % (Auto) Lymph # [place] # Seg Neutrophils % Seg Neuts % (Manual) Lymphocytes % (Manual) Nucleated RBC % Seg Neutrophils # Seg Neutrophils # Man Lymphocytes # (Manual) Monocytes # (Manual) Eosinophils # (Manual) PT INR Heparin Anti-Xa Level ABG pH ABG pO2 ABG HCO3 ABG O2 Saturation ABG Base Excess ABG Hemoglobin Oxyhemoglobin Sodium Potassium 6.3 H* Chloride Carbon Dioxide 21 L BUN 89 H Creatinine 1.9 H Glucose 63 L POC Glucose 65 L 168 H Hemoglobin A1c Calcium Magnesium Ferritin AST 370 H ALT 211 H Alkaline Phosphatase 320 H Total Creatine Kinase CK-MB (CK-2) CK-MB (CK-2) Rel Index Troponin T Total Protein Albumin 2.6 L Triglycerides LDL Cholesterol Direct 04/08/20 04/08/20 04/08/20 12:53 16:38 21:47 WBC RBC Hgb Hct MCV MCHC RDW Lymph % (Auto) [place] % (Auto) Lymph # [place] # Seg Neutrophils % Seg Neuts % (Manual) Lymphocytes % (Manual) Nucleated RBC % Seg Neutrophils # Seg Neutrophils # Man Lymphocytes # (Manual) Monocytes # (Manual) Eosinophils # (Manual) PT INR Heparin Anti-Xa Level ABG pH ABG pO2 ABG HCO3 ABG O2 Saturation ABG Base Excess ABG Hemoglobin Oxyhemoglobin Sodium Potassium 6.0 H Chloride Carbon Dioxide BUN 90 H Creatinine 2.1 H Glucose 124 H POC Glucose 129 H 118 H Hemoglobin A1c Calcium Magnesium Ferritin AST ALT Alkaline Phosphatase Total Creatine Kinase CK-MB (CK-2) CK-MB (CK-2) Rel Index Troponin T Total Protein Albumin Triglycerides LDL Cholesterol Direct 04/09/20 04/09/20 04/09/20 03:45 08:04 19:10 WBC RBC Hgb Hct MCV MCHC RDW Lymph % (Auto) [place] % (Auto) Lymph # [place] # Seg Neutrophils % Seg Neuts % (Manual) Lymphocytes % (Manual) Nucleated RBC % Seg Neutrophils # Seg Neutrophils # Man Lymphocytes # (Manual) Monocytes # (Manual) Eosinophils # (Manual) PT INR Heparin Anti-Xa Level ABG pH 7.304 L ABG pO2 72.2 L ABG HCO3 ABG O2 Saturation 93.7 L ABG Base Excess -3.3 L ABG Hemoglobin 8.9 L Oxyhemoglobin 91.8 L Sodium Potassium 6.6 H* 6.5 H* Chloride Carbon Dioxide 21 L BUN 99 H 100 H Creatinine 2.2 H 2.3 H Glucose POC Glucose Hemoglobin A1c Calcium 8.2 L Magnesium Ferritin AST ALT Alkaline Phosphatase Total Creatine Kinase CK-MB (CK-2) CK-MB (CK-2) Rel Index Troponin T Total Protein Albumin Triglycerides LDL Cholesterol Direct 04/10/20 04/10/20 04/10/20 05:48 05:48 08:53 WBC RBC 3.01 L Hgb 8.9 L Hct 28.4 L MCV 95 H MCHC 31 L RDW 17.6 H Lymph % (Auto) 11.4 L [place] % (Auto) Lymph # 1.1 L [place] # Seg Neutrophils % 81.1 H Seg Neuts % (Manual) Lymphocytes % (Manual) Nucleated RBC % Seg Neutrophils # 8.1 H Seg Neutrophils # Man Lymphocytes # (Manual) Monocytes # (Manual) Eosinophils # (Manual) PT INR Heparin Anti-Xa Level ABG pH ABG pO2 ABG HCO3 ABG O2 Saturation ABG Base Excess ABG Hemoglobin Oxyhemoglobin Sodium Potassium 5.2 H Chloride Carbon Dioxide BUN 104 H Creatinine 2.2 H Glucose 129 H POC Glucose 110 H Hemoglobin A1c Calcium Magnesium 2.80 H Ferritin AST 502 H ALT 249 H Alkaline Phosphatase 323 H Total Creatine Kinase CK-MB (CK-2) CK-MB (CK-2) Rel Index Troponin T Total Protein Albumin 2.5 L Triglycerides LDL Cholesterol Direct 04/10/20 11:42 WBC RBC Hgb Hct MCV MCHC RDW Lymph % (Auto) [place] % (Auto) Lymph # [place] # Seg Neutrophils % Seg Neuts % (Manual) Lymphocytes % (Manual) Nucleated RBC % Seg Neutrophils # Seg Neutrophils # Man Lymphocytes # (Manual) Monocytes # (Manual) Eosinophils # (Manual) PT INR Heparin Anti-Xa Level ABG pH ABG pO2 ABG HCO3 ABG O2 Saturation ABG Base Excess ABG Hemoglobin Oxyhemoglobin Sodium Potassium Chloride Carbon Dioxide BUN Creatinine Glucose POC Glucose 135 H Hemoglobin A1c Calcium Magnesium Ferritin AST ALT Alkaline Phosphatase Total Creatine Kinase CK-MB (CK-2) CK-MB (CK-2) Rel Index Troponin T Total Protein Albumin Triglycerides LDL Cholesterol Direct Allied health notes reviewed: nursing
--- NOTE | 2020-04-10 16:15 | Vascular Lab Report ---
"DUPLEX DOPPLER ULTRASOUND CAROTID, BILATERAL INDICATION: Stroke. COMPARISON: None available. FINDINGS: RIGHT CAROTID: No significant atherosclerotic plaque. CCA velocity: 72 cm/sec. ICA peak systolic velocity: 112 cm/sec. ICA/CCA PSV Ratio: 1.6. Right Vertebral Artery: Antegrade flow. LEFT CAROTID: No significant atherosclerotic plaque. CCA velocity: 68 cm/sec. ICA peak systolic velocity: 107 cm/sec. ICA/CCA PSV Ratio: 1.6. Left Vertebral Artery: Antegrade flow. IMPRESSION: 1. Right Internal Carotid Artery: Normal. 2. Left Internal Carotid Artery: Normal. Velocity criteria are extrapolated from diameter data as defined by the Society of Radiologists in Ul trasound Consensus Conference, Radiology 2003; 229;[id number]. Degree of || ICA PSV || Plaque || ICA/CCA Stenosis (%) || (cm/sec) || estimate (%) || PSV Ratio - Normal...............<125..............None.................<2.0 - <50....................<125..............<50....................<2.0 - 50-69................125-230.........>50....................2.0-4.0 - >70 but <100....>230..............>50....................>4.0 - Near...................High, low, .....visible................variable occlusion or none - Total...................None.............visible;................N/A occlusion no lumen Signer Name: Anton Duenas MD Signed: 04/10/2020 4:11 PM Workstation Name: [id number]
--- NOTE | 2020-04-10 17:35 | Progress Note ---
Assessment and Plan Assessment and plan: 54-year-old male with known history of CVA without any residual deficits, hypertension ,diabetes mellitus, coronary artery disease with CABG x2, pulmonary embolism and DVT presented to the emergency room today with a complaint of left foot pain and discoloration for about a week.His leg is cool from the knee down and cold and mottled from the lower calf down. He has an insensate foot from the midfoot down with no ability to move the toes. This has been present since he woke up. Last time he had function in his foot was last night. Left lower extremity ischemia, vascular evaluated, status post fasciotomy and revascularization. 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/2020, persistent leukocytosis, transaminitis, surgery GI following, patient had an episode of worsening lethargy and unresponsiveness, rapid response was called yesterday, CT head without contrast revealed --acute metabolic encephalopathy/worsening lethargy Current Visit: Yes Status: Acute Multifactorial, sepsis, congestive heart failure, electrolyte abnormalities Patient was unresponsive yesterday 04/08/2020, rapid response was called, CT head: without contrast; late subacute infarction in the posterior cerebral artery or posterior division middle cerebral artery distribution involving the lateral aspect of the left cerebral hemisphere in the parietal occipital junction region Remote bilateral cerebellar infarctions in PICA distribution No acute intracranial abnormalities identified patient is severely lethargic noncommunicative Neurology consult requested. --Acute hypoxic respiratory failure; Current Visit: Yes Status: Acute requiring BiPAP, oxygen titrate O2 sats to more than 90% Nebulizers, intubate if no improvement Supportive care, pulmonary following --Hyperkalemia; Current Visit: Yes Status: Acute Slightly improved, follow electrolytes --sepsis Current Visit: Yes Status: Acute Wound care and IV antibiotics Vanco cefepime ID consult, Wound culture. --Transaminitis/Acute liver failure Current Visit: Yes Status: Acute unknown etiology, slowly trend Abdominal ultrasound, fatty liver, thickening of gallbladder, --Coagulopathy ; secondary to acute liver failure Current Visit: Yes Status: Acute INR between 2 and 3 ,patient is on Eliquis, Plavix, for peripheral arterial disease, Will hold Eliquis --acute left lower extremity ischemia Current Visit: Yes Status: Acute 03/19/2020 status post endovascular revascularization 03/19/2020 s/p left lower extremity 4 compartment fasciotomy Management per vascular Left BKA on 03/25/2020 --Non-ST elevation MO : Current Visit: Yes Status: Acute Patient has history of CABG ,patient denies any chest pain. cardiology feels non-STEMI 2 Elevated troponins at the time of admission --Acute systolic CHF; EF 30-35%% Current Visit: Yes Status: Acute Beta-blockers, BIJAN inhibitor, diuretics , symptoms improved -- Hyperglycemia due to diabetes mellitus Current Visit: Yes Status: Acute Accu-Chek sliding scale coverage ADA diet Long-acting insulin as needed, HbA1c 11 --Nicotine dependence Current Visit: Yes Status: Acute Smoking cessation nicotine patch as needed --Anemia; Current Visit: Yes Status: Acute Gradual l drop in H&H, closely monitor and transfuse as needed --Hypotension; Current Visit: Yes Status: 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 Closely monitor blood pressures, fluid bolus as needed --DVT prophylaxis Current Visit: Yes Status: Acute Patient currently on anticoagulation. -- Full code status Current Visit: Yes Status: Acute Patient is on heparin drip Discharge planning issues possible acute rehab placement/SNF placement 04/05; patient unable to list flat HIDA scan, test canceled, follow GI and surgery evaluation 04/07 patient has more drainage from the left BKA and patient is lethargic 04/08 --Hypoglycemia and Hypokalemia ,Possible sepsis 04/09; severe hyperkalemia, treated with cocktail, follow potassium levels altered level of consciousness CT head without contrast, acute CVA, discussed with neurology, too unstable for MRI, discussed with patient's son 04/10; patient remains lethargic, confused, restraint for safety, Dobbhoff placement, for diet and medications, closely monitor Multiorgan involvement, with very poor prognosis Called patient's son Mr. Micah Weiss [phone] and discussed in detail patient's critical condition Multiorgan organ involvement, very poor prognosis, continues deterioration clinically, and treatment plan. I also discussed with him tests and imaging studies reports. I answered all his questions, I even discussed patient's advanced directives. The son reports that he would discuss with other family members and will get back to us. I encouraged him to call back with any new questions or concerns. Informed patient's nurse of the above conversation, Critical care time 50 minutes. History Interval history: I have seen and examined the patient today at the bedside Patient is lethargic, confused, noncommunicative in mild distress Has some upper airway congestion Vital signs noted Patient is restrained for safety Hospitalist Physical - Constitutional Vitals: Temp Pulse Resp BP Pulse Ox 98.9 F 82 20 117/75 94 04/10/20 15:53 04/10/20 15:53 04/10/20 15:53 04/10/20 15:53 04/10/20 15:53 General appearance: Present: mild distress, well-nourished, obese (Morbidly), other (Lethargic, noncommunicative) - EENT Eyes: Present: PERRL, EOM intact - Neck Neck: Present: supple, normal ROM, other (On BiPAP) - Respiratory Respiratory effort: normal Respiratory: bilateral: diminished, rhonchi, negative: rales, wheezing - Cardiovascular Rhythm: regular Heart Sounds: Present: S1 & S2 - Extremities Extremities: no ischemia, abnormal (Status post left BKA) Extremity abnormal: edema - Abdominal General gastrointestinal: soft, non-tender, non-distended, normal bowel sounds - Integumentary Integumentary: Present: clear, warm - Psychiatric Psychiatric: other (Noncommunicative) - Neurologic Neurologic: other (Noncommunicative, unable to elicit neural signs) HEART Score - HEART Score Troponin: Troponin T 3.200 ng/mL (0.00-0.029) H* D 03/20/20 05:12 Results - Labs CBC & Chem 7: 04/10/20 05:48 04/10/20 05:48 Labs: Laboratory Last Values WBC 9.6 K/mm3 (4.5-11.0) 04/10/20 05:48 RBC 3.01 M/mm3 (3.65-5.03) L 04/10/20 05:48 Hgb 8.9 gm/dl (11.8-15.2) L 04/10/20 05:48 Hct 28.4 % (35.5-45.6) L 04/10/20 05:48 MCV 95 fl (84-94) H 04/10/20 05:48 MCH 30 pg (28-32) 04/10/20 05:48 MCHC 31 % (32-34) L 04/10/20 05:48 RDW 17.6 % (13.2-15.2) H 04/10/20 05:48 Plt Count 228 K/mm3 (140-440) 04/10/20 05:48 Lymph % (Auto) 11.4 % (13.4-35.0) L 04/10/20 05:48 [place] % (Auto) 6.4 % (0.0-7.3) 04/10/20 05:48 Eos % (Auto) 0.0 % (0.0-4.3) 04/10/20 05:48 Baso % (Auto) 0.2 % (0.0-1.8) 04/10/20 05:48 Lymph # 1.1 K/mm3 (1.2-5.4) L 04/10/20 05:48 [place] # 0.6 K/mm3 (0.0-0.8) 04/10/20 05:48 Eos # 0.0 K/mm3 (0.0-0.4) 04/10/20 05:48 Baso # 0.0 K/mm3 (0.0-0.1) 04/10/20 05:48 Add Manual Diff Complete 03/29/20 14:19 Total Counted 100 03/29/20 14:19 Seg Neutrophils % 81.1 % (40.0-70.0) H 04/10/20 05:48 Seg Neuts % (Manual) 85.0 % (40.0-70.0) H 03/29/20 14:19 Band Neutrophils % 0 % 03/29/20 14:19 Lymphocytes % (Manual) 11.0 % (13.4-35.0) L 03/29/20 14:19 Reactive Lymphs % (Man) 0 % 03/29/20 14:19 Monocytes % (Manual) 1.0 % (0.0-7.3) 03/29/20 14:19 Eosinophils % (Manual) 3.0 % (0.0-4.3) 03/29/20 14:19 Basophils % (Manual) 0 % (0.0-1.8) 03/29/20 14:19 Metamyelocytes % 0 % 03/29/20 14:19 Myelocytes % 0 % 03/29/20 14:19 Promyelocytes % 0 % 03/29/20 14:19 Blast Cells % 0 % 03/29/20 14:19 Nucleated RBC % 3.0 % (0.0-0.9) H 03/29/20 14:19 Seg Neutrophils # 8.1 K/mm3 (1.8-7.7) H 04/10/20 05:48 Seg Neutrophils # Man 18.3 K/mm3 (1.8-7.7) H 03/29/20 14:19 Band Neutrophils # 0.0 K/mm3 03/29/20 14:19 Lymphocytes # (Manual) 2.4 K/mm3 (1.2-5.4) 03/29/20 14:19 Abs React Lymphs (Man) 0.0 K/mm3 03/29/20 14:19 Monocytes # (Manual) 0.2 K/mm3 (0.0-0.8) 03/29/20 14:19 Eosinophils # (Manual) 0.6 K/mm3 (0.0-0.4) H 03/29/20 14:19 Basophils # (Manual) 0.0 K/mm3 (0.0-0.1) 03/29/20 14:19 Metamyelocytes # 0.0 K/mm3 03/29/20 14:19 Myelocytes # 0.0 K/mm3 03/29/20 14:19 Promyelocytes # 0.0 K/mm3 03/29/20 14:19 Blast Cells # 0.0 K/mm3 03/29/20 14:19 WBC Morphology Not Reportable 03/29/20 14:19 Hypersegmented Neuts Not Reportable 03/29/20 14:19 Hyposegmented Neuts Not Reportable 03/29/20 14:19 Hypogranular Neuts Not Reportable 03/29/20 14:19 Smudge Cells Not Reportable 03/29/20 14:19 Toxic Granulation Not Reportable 03/29/20 14:19 Toxic Vacuolation Not Reportable 03/29/20 14:19 Dohle Bodies Not Reportable 03/29/20 14:19 Pelger-Huet Anomaly Not Reportable 03/29/20 14:19 Ananya Rods Not Reportable 03/29/20 14:19 Platelet Estimate Consistent w auto 03/29/20 14:19 Clumped Platelets Not Reportable 03/29/20 14:19 Plt Clumps, EDTA Not Reportable 03/29/20 14:19 Large Platelets Not Reportable 03/29/20 14:19 Giant Platelets Not Reportable 03/29/20 14:19 Platelet Satelliting Not Reportable 03/29/20 14:19 Plt Morphology Comment Not Reportable 03/29/20 14:19 RBC Morphology Not Reportable 03/29/20 14:19 Dimorphic RBCs Not Reportable 03/29/20 14:19 Polychromasia Not Reportable 03/29/20 14:19 Hypochromasia Not Reportable 03/29/20 14:19 Poikilocytosis Not Reportable 03/29/20 14:19 Anisocytosis 1+ 03/29/20 14:19 Microcytosis Not Reportable 03/29/20 14:19 Macrocytosis Not Reportable 03/29/20 14:19 Spherocytes Not Reportable 03/29/20 14:19 Pappenheimer Bodies Not Reportable 03/29/20 14:19 Sickle Cells Not Reportable 03/29/20 14:19 Target Cells Not Reportable 03/29/20 14:19 Tear Drop Cells Not Reportable 03/29/20 14:19 Ovalocytes Not Reportable 03/29/20 14:19 Helmet Cells Not Reportable 03/29/20 14:19 Light-Deer Bodies Not Reportable 03/29/20 14:19 [place] Rings Not Reportable 03/29/20 14:19 Bethel Cells Not Reportable 03/29/20 14:19 Bite Cells Not Reportable 03/29/20 14:19 Crenated Cell Not Reportable 03/29/20 14:19 Elliptocytes Not Reportable 03/29/20 14:19 Acanthocytes (Spur) Not Reportable 03/29/20 14:19 Rouleaux Not Reportable 03/29/20 14:19 Hemoglobin C Crystals Not Reportable 03/29/20 14:19 Schistocytes Not Reportable 03/29/20 14:19 Malaria parasites Not Reportable 03/29/20 14:19 Steven Bodies Not Reportable 03/29/20 14:19 Hem Pathologist Commnt No 03/29/20 14:19 PT 30.9 Sec. (12.2-14.9) H 04/07/20 04:58 INR 2.89 (0.87-1.13) H 04/07/20 04:58 APTT 27.7 Sec. (24.2-36.6) 03/18/20 18:28 Heparin Anti-Xa Level 0.10 U.I./ml (0.3-0.7) L 03/25/20 04:06 ABG pH 7.304 pH Units (7.350-7.450) L 04/09/20 03:45 ABG pCO2 47.4 mm Hg 04/09/20 03:45 ABG pO2 72.2 mm Hg (80.0-90.0) L 04/09/20 03:45 ABG HCO3 23.0 mmol/L (20.0-26.0) 04/09/20 03:45 ABG O2 Saturation 93.7 % (95.0-99.0) L 04/09/20 03:45 ABG O2 Content 11.5 (0.0-44) 04/09/20 03:45 ABG Base Excess -3.3 mmol/L (-2.0-3.0) L 04/09/20 03:45 ABG Hemoglobin 8.9 gm/dl (14.0-18.0) L 04/09/20 03:45 ABG Carboxyhemoglobin 1.5 % (0.0-5.0) 04/09/20 03:45 ABG Methemoglobin 0.5 % (0.0-1.5) 04/09/20 03:45 Oxyhemoglobin 91.8 % (95.0-99.0) L 04/09/20 03:45 FiO2 36 % 04/09/20 03:45 Sodium 145 mmol/L (137-145) 04/10/20 05:48 Potassium 5.2 mmol/L (3.6-5.0) H 04/10/20 05:48 Chloride 106.3 mmol/L (98-107) 04/10/20 05:48 Carbon Dioxide 22 mmol/L (22-30) 04/10/20 05:48 Anion Gap 22 mmol/L 04/10/20 05:48 BUN 104 mg/dL (9-20) H 04/10/20 05:48 Creatinine 2.2 mg/dL (0.8-1.3) H 04/10/20 05:48 Estimated GFR 31 ml/min 04/10/20 05:48 BUN/Creatinine Ratio 47 % 04/10/20 05:48 Glucose 129 mg/dL (75-100) H 04/10/20 05:48 POC Glucose 137 (70-105) H 04/10/20 16:05 Hemoglobin A1c 11.0 % (4-6) H 03/18/20 22:21 Calcium 8.7 mg/dL (8.4-10.2) 04/10/20 05:48 Magnesium 2.80 mg/dL (1.7-2.3) H 04/10/20 05:48 Ferritin 444.2 ng/mL (30.0-300.0) H 04/06/20 07:14 Total Bilirubin 0.80 mg/dL (0.1-1.2) 04/10/20 05:48 AST 502 units/L (5-40) H 04/10/20 05:48 ALT 249 units/L (7-56) H 04/10/20 05:48 Alkaline Phosphatase 323 units/L (35-129) H 04/10/20 05:48 Total Creatine Kinase 7255 units/L (55-170) H 03/19/20 08:08 CK-MB (CK-2) 79.3 ng/mL (0.0-4.0) H 03/19/20 08:08 CK-MB (CK-2) Rel Index 1.0 (0-4) 03/19/20 08:08 Troponin T 3.200 ng/mL (0.00-0.029) H* D 03/20/20 05:12 Total Protein 6.7 g/dL (6.3-8.2) 04/10/20 05:48 Albumin 2.5 g/dL (3.9-5) L 04/10/20 05:48 Albumin/Globulin Ratio 0.6 % 04/10/20 05:48 Triglycerides 188 mg/dL (2-149) H 03/18/20 18:28 Cholesterol 199 mg/dL (50-199) 03/18/20 18:28 LDL Cholesterol Direct 141 mg/dL (50-130) H 03/18/20 18:28 HDL Cholesterol 47 mg/dL (40-59) 03/18/20 18:28 Cholesterol/HDL Ratio 4.23 % 03/18/20 18:28 Random Vancomycin 25.8 ug/mL (0-40.0) 04/10/20 05:48 Coronavirus (PCR) Negative (Negative) 04/03/20 08:00 Hep Bs Antigen Non-reactive (Negative) 04/06/20 07:14 Hepatitis C Antibody Non-reactive (NonReactive) 04/06/20 07:14 Blood Type B POSITIVE 03/25/20 11:42 Antibody Screen Negative 03/25/20 11:42 Microbiology: Microbiology 04/08/20 Unknown Leg - Left Wound Culture - Preliminary - Diagnostic Impressions Diagnostic Impressions: Echocardiogram 03/19/20 12:49 Transthoracic Echocardiogram Indication: CAD and Abnormal EKG HR: 110 Conclusions *The study is technically limited due to patient body habitus. *The left ventricular chamber size is mildly dilated. *Global left ventricular systolic function is moderate to severely decreased. *The estimated ejection fraction is 30-35%. *The basal inferolateral, and basal inferior wall segments are normal. *The mid inferolateral, mid inferior, apical lateral, and apical inferior wall segments are akinetic. *The left atrial chamber size is normal. Findings Procedure Info: The study is technically limited due to patient body habitus. The study was technically limited due to the patient's inability to lay in the left lateral decubitus position. Left Ventricle: The left ventricular chamber size is mildly dilated. Global left ventricular systolic function is moderate to severely decreased. The estimated ejection fraction is 30-35%. The basal inferolateral, and basal inferior wall segments are normal. The mid inferolateral, mid inferior, apical lateral, and apical inferior wall segments are akinetic. Left Atrium: The left atrial chamber size is normal. Right Ventricle: The right ventricle is not well visualized. Right Atrium: The right atrium is not well visualized. The right atrial cavity size is normal. Aortic Valve: The aortic valve is trileaflet. Mitral Valve: The mitral valve leaflets are moderately thickened. There is mild mitral regurgitation. Tricuspid Valve: The tricuspid valve is not well visualized. There is trace tricuspid regurgitation. Pulmonic Valve: The pulmonic valve is not well visualized. Pericardium: There is no pericardial effusion. Aorta: The aorta appears normal. Venous: The venous system is not well visualized. Contrast: Definity was used to optimize study. Measurements Chambers 2D Name Value Normal Range IVSd (2D) 0.94 cm (0.6 - 1.1) LVPWd (2D) 0.94 cm (0.6 - 1.1) LVIDd (2D) 6.15 cm (3.7 - 5.6) LVIDs (2D) 5.2 cm (2 - 3.8) LV FS (2D) 15.5 % - EF Teichholz (2D) 32.08 % - Ao root diameter (2D) 2.77 cm (2 - 3.7) Volumes/Mass Name Value Normal Range LA ESV SP 4CH (A/L) 73.77 ml - LA ESV SP 2CH (A/L) 66.45 ml - LA ESV BP (A/L) 71.61 ml - LA ESV BP (A/L) index 30.6 ml/m2 - LA ESV SP 4CH (MOD) 72.55 ml - LA ESV SP 2CH (MOD) 65.34 ml - LA ESV BP (MOD) 70.27 ml - LA ESV BP (MOD) index 30.03 ml/m2 - Diastolic/Systolic Function Name Value Normal Range MV E-wave Vmax 0.85 m/sec - MV deceleration time 69.14 msec - MV A-wave Vmax 0.89 m/sec - MV E:A ratio 0.95 ratio - Aortic Valve Name Value Normal Range AV Vmax 0.96 m/sec - AV VTI 11.83 cm - AV peak gradient 3.68 mmHg - AV mean gradient 1.6 mmHg - LVOT diameter 2.19 cm - LVOT Vmax 0.86 m/sec - LVOT VTI 13.33 cm - LVOT peak gradient 2.96 mmHg - LVOT mean gradient 1.48 mmHg - SV LVOT 50.08 ml - DEYA (continuity Vmax) 3.37 cm2 - DEYA (continuity VTI) 4.23 cm2 - Ascending Ao 2.92 cm - Pulmonic Valve/Qp:Qs Name Value Normal Range PV Vmax 1.08 m/sec - PV VTI 15.88 cm - PV peak gradient 4.7 mmHg - PV mean gradient 2.18 mmHg - RVOT Vmax 0.82 m/sec - RVOT VTI 11.48 cm - RVOT peak gradient 2.67 mmHg - Wall[place] BAS Not Seen BA Not Seen BAL Not Seen BAY Normal BI Normal BIS Not Seen MAS Not Seen MA Not Seen MAL Not Seen MIL Akinetic MO Akinetic MIS Not Seen Not Seen AA Not Seen AL Akinetic AI Akinetic APEX Not Seen Tyson/IV: Voiding Method Indwelling Catheter IV Catheter Type [Right Peripheral IV Forearm] IV Catheter Type [Right INT / Saline Lock Antecubital] IV Catheter Type [Right Hand] Peripheral IV IV Catheter Type [Left Forearm INT / Saline Lock ] IV Catheter Type [Left Upper INT / Saline Lock arm] IV Catheter Type [Left Peripheral IV Antecubital] Active Medications - Current Medications Current Medications: Generic Name Dose Route Start Last Admin Trade Name Freq PRN Reason Stop Dose Admin Acetaminophen/Hydrocodone Bitart 2 each 03/22/20 17:18 04/06/20 09:52 [place] 5/325 PO 2 each Q4H PRN Administration Pain, Moderate (4-6) Albuterol 2.5 mg 04/01/20 00:03 Proventil IH Q6HRT PRN Shortness Of Breath Arformoterol Tartrate 15 mcg 03/19/20 20:00 04/10/20 09:21 Brovana Nebu IH 15 mcg Q12HRT LOI Administration Aspirin 81 mg 04/10/20 16:00 Halfprin Ec PO QDAY LOI Atorvastatin Calcium 40 mg 03/19/20 22:00 04/09/20 23:04 Lipitor PO 40 mg QHS LOI Administration Budesonide 0.5 mg 03/19/20 20:00 04/10/20 09:21 Pulmicort IH 0.5 mg Q12HRT LOI Administration Clopidogrel Bisulfate 75 mg 03/19/20 10:00 04/10/20 09:56 Plavix PO 75 mg QDAY LOI Administration Dextrose 50 ml 03/18/20 22:21 04/08/20 07:42 D50w (25gm) Syringe IV 50 ml Q30MIN PRN Administration Hypoglycemia Protocol Diphenhydramine HCl 25 mg 03/19/20 12:44 Benadryl IV Q4H PRN Itching Furosemide 40 mg 04/06/20 06:00 04/10/20 05:47 Lasix IV 40 mg 0600,1800 LIO Administration Guaifenesin 10 ml 04/01/20 00:03 04/09/20 21:17 Guaifenesin Dm Syrup PO 10 ml Q4H PRN Administration Cough Hydromorphone/Sodium Chloride 0 mg 03/19/20 13:00 03/30/20 02:09 Dilaudid As[employer] 6mg/30ml IV 1 cart DIRECT LOI Administration Protocol Sodium Chloride 1,000 mls @ 75 mls/hr 04/07/20 16:45 04/09/20 21:09 Nacl 0.9% 1000 Ml IV 75 mls/hr DIRECT LOI Administration Cefepime HCl 1 gm in 100 mls @ 200 mls/hr 04/08/20 13:00 04/10/20 11:24 Cefepime/Ns 1 Gm/100 Ml IV 200 mls/hr Q12HR LOI Administration Protocol Insulin Human Lispro 0 unit 03/20/20 16:30 04/10/20 16:41 Humalog SUB-Q Not Given ACHS [facility] Protocol Ipratropium [place] 0.5 mg 04/01/20 00:05 Atrovent IH Q6HRT PRN Shortness Of Breath Magnesium Hydroxide 30 ml 03/18/20 22:21 Milk Of Magnesia PO Q4H PRN Constipation Metoprolol Tartrate 50 mg 03/19/20 22:00 04/10/20 09:58 Metoprolol PO Not Given BID LOI Naloxone HCl 0.1 mg 03/19/20 12:44 Naloxone IV Q2MIN PRN Res Rate </= 8 or 02 SAT < 92% Ondansetron HCl 4 mg 03/18/20 22:21 04/05/20 01:46 Zofran IV 4 mg Q8H PRN Administration Nausea And Vomiting Pantoprazole Sodium 40 mg 03/20/20 10:00 04/10/20 09:56 Protonix PO 40 mg BID LOI Administration Pregabalin 150 mg 03/22/20 22:00 04/10/20 14:23 Pregabalin PO Not Given BID LOI Sodium Chloride 10 ml 03/19/20 10:00 04/10/20 09:56 Sodium Chloride Flush Syringe 10 Ml IV 10 ml BID LOI Administration Sodium Chloride 10 ml 03/18/20 22:21 04/10/20 05:48 Sodium Chloride Flush Syringe 10 Ml IV 10 ml PRN PRN Administration LINE FLUSH Zolpidem Tartrate 5 mg 03/31/20 19:09 04/05/20 22:32 Ambien PO 5 mg QHS PRN Administration Sleep Nutrition/Malnutrition Assess - Dietary Evaluation Nutrition/Malnutrition Findings: Nutrition Notes Start: 03/19/20 11:59 Freq: Status: Active Protocol: Document 04/08/20 11:25 DAYO (Rec: 04/08/20 11:29 DAYO [id number]) Nutrition Notes Initial or Follow up Reassessment Current Diagnosis COPD,Diabetes Other Pertinent Diagnosis (L) LE ischemia s/p (L) BKA, STARR, NSTEMI Current Diet Cardiac/Consistent CHO Labs/Tests K 6.3 BUN 89 Cr 1.9 BG 63 Elevated LFTs Pertinent Medications Lasix Height 6 ft Weight 128.1 kg [place] Body Weight (kg) 80.90 BMI 38.2 Subjective/Other Information Pt consumed 75% of meals documented on 04/04-04/05. Pt is s/p code MET this am. Percent of energy/protein needs met: 68% energy 60% pro Burn Absent Trauma Absent #1 Nutrition Diagnosis Increased nutrient needs ( specify in comment below) Diagnosis Progress(for reassessment Continues documentation) Is patient on ventilator? No Is Patient Ambulatory and/or Out of Bed No REE-([place]-confined to bed) 2588.544 Kcal/Kg value to use for calculation 17 Approximate Energy Requirements Using 2178 kcal/Kg Calculation Used for Recommendations Kcal/kg Additional Notes Pro needs 1-1.2g/kg adjBW (not for amputation): 105-125g/day Fluid needs 1ml/kcal Nutrition Intervention Change Diet Order: Continue current diet order; honor food preferences Goal #1 PO intakes to meet at least 75 % energy and pro needs Goal #2 Healing of surgical site Follow-Up By: 04/11/20 Additional Comments F/U: intakes
[2020-04-10] MEDS ORDERED: SIMPLE SYRUP 15 ML FEEDTUBE PRN ×2 (17:39)
[2020-04-10] MEDS ORDERED: SODIUM BICARBONATE 325 MG TAB FEEDTUBE PRN (17:39)
[2020-04-10] MEDS ORDERED: LIPASE 10,500/PROTEASE 25,000/AMYLASE 43,750 (UNITS) DR CAP FEEDTUBE PRN (17:39)
--- NOTE | 2020-04-10 19:09 | Event Note ---
Date: 04/10/20 I called patient's son Mr. Abhishek Obrien at [phone] to discuss and update the patient's condition Unable to reach, left a voice male and encouraged him to call back with any questions or concerns. I informed patient's nurse about my attempt to talk to the son. I called back patient's son Abhishek Obrien again and discussed in detail and up dated him the patient's condition, the tests and reports Treatment plan, consultants recommendation and prognosis, I answered all his questions And encouraged him to call back with any new questions or concerns. He verbalized understanding
[2020-04-10] MEDS: SODIUM CHLORIDE 0.9% 1000 ML 1,000 ML IV SCH (19:11)
[2020-04-10] MEDS: ASPIRIN EC 81 MG TAB PO SCH (19:26)
--- NOTE | 2020-04-10 19:36 | XRay Report ---
ABDOMEN, SINGLE VIEW INDICATION / CLINICAL INFORMATION: Dobhoff placement. COMPARISON: None available. FINDINGS: Tip of the Dobbhoff feeding tube is in the midportion of the stomach and is in satisfactory position. Signer Name: Melania Livingston MD Signed: 04/10/2020 7:32 PM Workstation Name: [id number]
[2020-04-11] MEDS: FUROSEMIDE 40 MG/4 ML INJ IV SCH ×2 (05:57→19:04)
[2020-04-11] MEDS: [UNRECOGNIZED DRUG - REMARK] SUB-Q SCH ×3 (07:30→17:51)
[2020-04-11 07:51] LABS: Hematocrit 27.4 % (35.5-45.6); Hemoglobin 8.6 gm/dl (11.8-15.2); Red Blood Count 2.89 M/mm3 (3.65-5.03)
[2020-04-11 07:58] LABS: INR 2.1 (0.87-1.13)
[2020-04-11 08:07] LABS: Albumin 2.5 g/dL (3.9-5); Calcium 8.8 mg/dL (8.4-10.2)
[2020-04-11 08:08] LABS: Basophils % (Auto) 0.1 % (0.0-1.8); Lymphocytes % (Auto) 9.9 % (13.4-35.0); Mean Corpuscular HGB Conc 31 % (32-34); Mean Corpuscular Volume 95 fl (84-94); Monocytes # (Auto) 0.4 K/mm3 (0.0-0.8); Monocytes % (Auto) 4.3 % (0.0-7.3); Platelet Count 189 K/mm3 (140-440); Red Cell Distribution Width 17.5 % (13.2-15.2)
[2020-04-11] MEDS ORDERED: LORazepam 2 MG/ML VIAL IV ONE ×2 (09:00→11:00)
[2020-04-11] MEDS: METOPROLOL TARTRATE 50 MG TAB PO SCH ×2 (09:45→22:26)
[2020-04-11] MEDS: CLOPIDOGREL 75 MG TAB PO SCH (09:45)
[2020-04-11] MEDS: PANTOPRAZOLE 40 MG TAB PO SCH ×2 (09:45→23:38)
[2020-04-11] MEDS: ASPIRIN EC 81 MG TAB PO SCH (09:45)
[2020-04-11] MEDS: PREGABALIN 75 MG CAP PO SCH ×2 (09:45→23:40)
[2020-04-11] MEDS: SODIUM CHLORIDE 0.9% 1000 ML 1,000 ML IV SCH (09:48)
[2020-04-11] MEDS: CEFEPIME/NS 1 GM/100 ML 1 GM/100 ML BAG IV SCH ×2 (10:22→23:38)
--- NOTE | 2020-04-11 10:41 | Progress Note ---
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 --Acute hypoxic respiratory failure; Current Visit: Yes Status: Acute requiring BiPAP, oxygen titrate O2 sats to more than 90% Nebulizers, intubate if no improvement Supportive care, pulmonary following --Hyperkalemia; Current Visit: Yes Status: Acute Slightly improved, follow electrolytes --sepsis Current Visit: Yes Status: Acute Wound care and IV antibiotics Vanco cefepime ID consult, Wound culture. 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 cardiology feels non-STEMI 2 Elevated troponins at the time of admission --Acute systolic CHF; EF 30-35%% Current Visit: Yes Status: Acute Beta-blockers, BIJAN inhibitor, diuretics , symptoms improved -- Hyperglycemia due to diabetes mellitus Current Visit: Yes Status: Acute Accu-Chek sliding scale coverage ADA diet Long-acting insulin as needed, HbA1c 11 --Nicotine dependence Current Visit: Yes Status: Acute Smoking cessation nicotine patch as needed --Anemia; Current Visit: Yes Status: Acute Gradual l drop in H&H, closely monitor and transfuse as needed --Hypotension; Current Visit: Yes Status: Acute patient [employer] pump on hold due to hypotension And give low-dose Dilaudid every 6 hours as needed for pain. Closely monitor blood pressures, fluid bolus as needed --DVT prophylaxis Current Visit: Yes Status: Acute Patient currently on anticoagulation. -- Full code status Current Visit: Yes Status: Acute Patient is on heparin drip Discharge planning issues possible acute rehab placement/SNF placement 04/05; patient unable to list flat HIDA scan, test canceled, follow GI and surgery evaluation 04/07 patient has more drainage from the left BKA and patient is lethargic 04/08 --Hypoglycemia and Hypokalemia ,Possible sepsis 04/09; severe hyperkalemia, treated with cocktail, follow potassium levels altered level of consciousness CT head without contrast, acute CVA, discussed with neurology, too unstable for MRI, discussed with patient's son 04/10; patient remains lethargic, confused, restraint for safety, Dobbhoff placement, for diet and medications, closely monitor 04/11: Clinically no change patient is lethargic confused agitated and restrained for safety, acute CVA Neuro work-up in progress Multiorgan involvement, with very poor prognosis Called patient's son [04/10/20] Mr. Micah Weiss [phone] and discussed in detail patient's critical condition Multiorgan organ involvement, very poor prognosis, continues deterioration clinically, and treatment plan. I also discussed with him tests and imaging studies reports. I answered all his questions, I even discussed patient's advanced directives. The son reports that he would discuss with other family members and will get back to us. I encouraged him to call back with any new questions or concerns. Informed patient's nurse of the above conversation, History Interval history: I have seen and examined the patient this morning at the bedside Patient's chart and medications reviewed. Patient continues to be noncommunicative, confused Mild agitation, restraint for safety Vital signs noted Hospitalist Physical - Constitutional Vitals: Temp Pulse Resp BP Pulse Ox 98.6 F 83 20 107/64 100 04/11/20 07:46 04/11/20 07:46 04/11/20 07:46 04/11/20 07:46 04/11/20 07:46 General appearance: Present: mild distress, well-nourished, obese (Morbidly), other (Lethargic, noncommunicative) - EENT Eyes: Present: PERRL, EOM intact - Neck Neck: Present: supple, normal ROM - Respiratory Respiratory effort: normal Respiratory: bilateral: diminished, rhonchi, negative: rales, wheezing - Cardiovascular Rhythm: regular Heart Sounds: Present: S1 & S2 - Extremities Extremities: no ischemia, abnormal Extremity abnormal: edema (Left BKA) - Abdominal General gastrointestinal: soft, non-tender, non-distended, normal bowel sounds - Integumentary Integumentary: Present: clear, warm - Psychiatric Psychiatric: other (Noncommunicative) - Neurologic Neurologic: other (Noncommunicative) HEART Score - HEART Score Troponin: Troponin T 3.200 ng/mL (0.00-0.029) H* D 03/20/20 05:12 Results - Labs CBC & Chem 7: 04/11/20 06:26 04/11/20 06:26 Labs: Laboratory Last Values WBC 10.3 K/mm3 (4.5-11.0) 04/11/20 06:26 RBC 2.89 M/mm3 (3.65-5.03) L 04/11/20 06:26 Hgb 8.6 gm/dl (11.8-15.2) L 04/11/20 06:26 Hct 27.4 % (35.5-45.6) L 04/11/20 06:26 MCV 95 fl (84-94) H 04/11/20 06:26 MCH 30 pg (28-32) 04/11/20 06:26 MCHC 31 % (32-34) L 04/11/20 06:26 RDW 17.5 % (13.2-15.2) H 04/11/20 06:26 Plt Count 189 K/mm3 (140-440) 04/11/20 06:26 Lymph % (Auto) 9.9 % (13.4-35.0) L 04/11/20 06:26 [place] % (Auto) 4.3 % (0.0-7.3) 04/11/20 06:26 Eos % (Auto) 0.0 % (0.0-4.3) 04/11/20 06:26 Baso % (Auto) 0.1 % (0.0-1.8) 04/11/20 06:26 Lymph # 1.0 K/mm3 (1.2-5.4) L 04/11/20 06:26 [place] # 0.4 K/mm3 (0.0-0.8) 04/11/20 06:26 Eos # 0.0 K/mm3 (0.0-0.4) 04/11/20 06:26 Baso # 0.0 K/mm3 (0.0-0.1) 04/11/20 06:26 Add Manual Diff Complete 03/29/20 14:19 Total Counted 100 03/29/20 14:19 Seg Neutrophils % 85.7 % (40.0-70.0) H 04/11/20 06:26 Seg Neuts % (Manual) 85.0 % (40.0-70.0) H 03/29/20 14:19 Band Neutrophils % 0 % 03/29/20 14:19 Lymphocytes % (Manual) 11.0 % (13.4-35.0) L 03/29/20 14:19 Reactive Lymphs % (Man) 0 % 03/29/20 14:19 Monocytes % (Manual) 1.0 % (0.0-7.3) 03/29/20 14:19 Eosinophils % (Manual) 3.0 % (0.0-4.3) 03/29/20 14:19 Basophils % (Manual) 0 % (0.0-1.8) 03/29/20 14:19 Metamyelocytes % 0 % 03/29/20 14:19 Myelocytes % 0 % 03/29/20 14:19 Promyelocytes % 0 % 03/29/20 14:19 Blast Cells % 0 % 03/29/20 14:19 Nucleated RBC % 3.0 % (0.0-0.9) H 03/29/20 14:19 Seg Neutrophils # 8.8 K/mm3 (1.8-7.7) H 04/11/20 06:26 Seg Neutrophils # Man 18.3 K/mm3 (1.8-7.7) H 03/29/20 14:19 Band Neutrophils # 0.0 K/mm3 03/29/20 14:19 Lymphocytes # (Manual) 2.4 K/mm3 (1.2-5.4) 03/29/20 14:19 Abs React Lymphs (Man) 0.0 K/mm3 03/29/20 14:19 Monocytes # (Manual) 0.2 K/mm3 (0.0-0.8) 03/29/20 14:19 Eosinophils # (Manual) 0.6 K/mm3 (0.0-0.4) H 03/29/20 14:19 Basophils # (Manual) 0.0 K/mm3 (0.0-0.1) 03/29/20 14:19 Metamyelocytes # 0.0 K/mm3 03/29/20 14:19 Myelocytes # 0.0 K/mm3 03/29/20 14:19 Promyelocytes # 0.0 K/mm3 03/29/20 14:19 Blast Cells # 0.0 K/mm3 03/29/20 14:19 WBC Morphology Not Reportable 03/29/20 14:19 Hypersegmented Neuts Not Reportable 03/29/20 14:19 Hyposegmented Neuts Not Reportable 03/29/20 14:19 Hypogranular Neuts Not Reportable 03/29/20 14:19 Smudge Cells Not Reportable 03/29/20 14:19 Toxic Granulation Not Reportable 03/29/20 14:19 Toxic Vacuolation Not Reportable 03/29/20 14:19 Dohle Bodies Not Reportable 03/29/20 14:19 Pelger-Huet Anomaly Not Reportable 03/29/20 14:19 Ananya Rods Not Reportable 03/29/20 14:19 Platelet Estimate Consistent w auto 03/29/20 14:19 Clumped Platelets Not Reportable 03/29/20 14:19 Plt Clumps, EDTA Not Reportable 03/29/20 14:19 Large Platelets Not Reportable 03/29/20 14:19 Giant Platelets Not Reportable 03/29/20 14:19 Platelet Satelliting Not Reportable 03/29/20 14:19 Plt Morphology Comment Not Reportable 03/29/20 14:19 RBC Morphology Not Reportable 03/29/20 14:19 Dimorphic RBCs Not Reportable 03/29/20 14:19 Polychromasia Not Reportable 03/29/20 14:19 Hypochromasia Not Reportable 03/29/20 14:19 Poikilocytosis Not Reportable 03/29/20 14:19 Anisocytosis 1+ 03/29/20 14:19 Microcytosis Not Reportable 03/29/20 14:19 Macrocytosis Not Reportable 03/29/20 14:19 Spherocytes Not Reportable 03/29/20 14:19 Pappenheimer Bodies Not Reportable 03/29/20 14:19 Sickle Cells Not Reportable 03/29/20 14:19 Target Cells Not Reportable 03/29/20 14:19 Tear Drop Cells Not Reportable 03/29/20 14:19 Ovalocytes Not Reportable 03/29/20 14:19 Helmet Cells Not Reportable 03/29/20 14:19 [place] Bodies Not Reportable 03/29/20 14:19 [place] Rings Not Reportable 03/29/20 14:19 [place] Cells Not Reportable 03/29/20 14:19 Bite Cells Not Reportable 03/29/20 14:19 Crenated Cell Not Reportable 03/29/20 14:19 Elliptocytes Not Reportable 03/29/20 14:19 Acanthocytes (Spur) Not Reportable 03/29/20 14:19 Rouleaux Not Reportable 03/29/20 14:19 Hemoglobin C Crystals Not Reportable 03/29/20 14:19 Schistocytes Not Reportable 03/29/20 14:19 Malaria parasites Not Reportable 03/29/20 14:19 Steven Bodies Not Reportable 03/29/20 14:19 Hem Pathologist Commnt No 03/29/20 14:19 PT 24.0 Sec. (12.2-14.9) H 04/11/20 06:26 INR 2.10 (0.87-1.13) H 04/11/20 06:26 APTT 27.7 Sec. (24.2-36.6) 03/18/20 18:28 Heparin Anti-Xa Level 0.10 U.I./ml (0.3-0.7) L 03/25/20 04:06 ABG pH 7.304 pH Units (7.350-7.450) L 04/09/20 03:45 ABG pCO2 47.4 mm Hg 04/09/20 03:45 ABG pO2 72.2 mm Hg (80.0-90.0) L 04/09/20 03:45 ABG HCO3 23.0 mmol/L (20.0-26.0) 04/09/20 03:45 ABG O2 Saturation 93.7 % (95.0-99.0) L 04/09/20 03:45 ABG O2 Content 11.5 (0.0-44) 04/09/20 03:45 ABG Base Excess -3.3 mmol/L (-2.0-3.0) L 04/09/20 03:45 ABG Hemoglobin 8.9 gm/dl (14.0-18.0) L 04/09/20 03:45 ABG Carboxyhemoglobin 1.5 % (0.0-5.0) 04/09/20 03:45 ABG Methemoglobin 0.5 % (0.0-1.5) 04/09/20 03:45 Oxyhemoglobin 91.8 % (95.0-99.0) L 04/09/20 03:45 FiO2 36 % 04/09/20 03:45 Sodium 146 mmol/L (137-145) H 04/11/20 06:26 Potassium 5.3 mmol/L (3.6-5.0) H 04/11/20 06:26 Chloride 108.2 mmol/L (98-107) H 04/11/20 06:26 Carbon Dioxide 25 mmol/L (22-30) 04/11/20 06:26 Anion Gap 18 mmol/L 04/11/20 06:26 BUN 109 mg/dL (9-20) H 04/11/20 06:26 Creatinine 2.1 mg/dL (0.8-1.3) H 04/11/20 06:26 Estimated GFR 33 ml/min 04/11/20 06:26 BUN/Creatinine Ratio 52 % 04/11/20 06:26 Glucose 160 mg/dL (75-100) H 04/11/20 06:26 POC Glucose 170 (70-105) H 04/11/20 07:57 Hemoglobin A1c 11.0 % (4-6) H 03/18/20 22:21 Calcium 8.8 mg/dL (8.4-10.2) 04/11/20 06:26 Magnesium 2.80 mg/dL (1.7-2.3) H 04/10/20 05:48 Ferritin 444.2 ng/mL (30.0-300.0) H 04/06/20 07:14 Total Bilirubin 0.90 mg/dL (0.1-1.2) 04/11/20 06:26 AST 298 units/L (5-40) H 04/11/20 06:26 ALT 207 units/L (7-56) H 04/11/20 06:26 Alkaline Phosphatase 274 units/L (35-129) H 04/11/20 06:26 Total Creatine Kinase 7255 units/L (55-170) H 03/19/20 08:08 CK-MB (CK-2) 79.3 ng/mL (0.0-4.0) H 03/19/20 08:08 CK-MB (CK-2) Rel Index 1.0 (0-4) 03/19/20 08:08 Troponin T 3.200 ng/mL (0.00-0.029) H* D 03/20/20 05:12 Total Protein 6.7 g/dL (6.3-8.2) 04/11/20 06:26 Albumin 2.5 g/dL (3.9-5) L 04/11/20 06:26 Albumin/Globulin Ratio 0.6 % 04/11/20 06:26 Triglycerides 188 mg/dL (2-149) H 03/18/20 18:28 Cholesterol 199 mg/dL (50-199) 03/18/20 18:28 LDL Cholesterol Direct 141 mg/dL (50-130) H 03/18/20 18:28 HDL Cholesterol 47 mg/dL (40-59) 03/18/20 18:28 Cholesterol/HDL Ratio 4.23 % 03/18/20 18:28 Random Vancomycin 25.8 ug/mL (0-40.0) 04/10/20 05:48 Coronavirus (PCR) Negative (Negative) 04/03/20 08:00 Hep Bs Antigen Non-reactive (Negative) 04/06/20 07:14 Hepatitis C Antibody Non-reactive (NonReactive) 04/06/20 07:14 Blood Type B POSITIVE 03/25/20 11:42 Antibody Screen Negative 03/25/20 11:42 Microbiology: Microbiology 04/08/20 Unknown Leg - Left Wound Culture - Preliminary - Diagnostic Impressions Diagnostic Impressions: Echocardiogram 03/19/20 12:49 Transthoracic Echocardiogram Indication: CAD and Abnormal EKG HR: 110 Conclusions *The study is technically limited due to patient body habitus. *The left ventricular chamber size is mildly dilated. *Global left ventricular systolic function is moderate to severely decreased. *The estimated ejection fraction is 30-35%. *The basal inferolateral, and basal inferior wall segments are normal. *The mid inferolateral, mid inferior, apical lateral, and apical inferior wall segments are akinetic. *The left atrial chamber size is normal. Findings Procedure Info: The study is technically limited due to patient body habitus. The study was technically limited due to the patient's inability to lay in the left lateral decubitus position. Left Ventricle: The left ventricular chamber size is mildly dilated. Global left ventricular systolic function is moderate to severely decreased. The estimated ejection fraction is 30-35%. The basal inferolateral, and basal inferior wall segments are normal. The mid inferolateral, mid inferior, apical lateral, and apical inferior wall segments are akinetic. Left Atrium: The left atrial chamber size is normal. Right Ventricle: The right ventricle is not well visualized. Right Atrium: The right atrium is not well visualized. The right atrial cavity size is normal. Aortic Valve: The aortic valve is trileaflet. Mitral Valve: The mitral valve leaflets are moderately thickened. There is mild mitral regurgitation. Tricuspid Valve: The tricuspid valve is not well visualized. There is trace tricuspid regurgitation. Pulmonic Valve: The pulmonic valve is not well visualized. Pericardium: There is no pericardial effusion. Aorta: The aorta appears normal. Venous: The venous system is not well visualized. Contrast: Definity was used to optimize study. Measurements Chambers 2D Name Value Normal Range IVSd (2D) 0.94 cm (0.6 - 1.1) LVPWd (2D) 0.94 cm (0.6 - 1.1) LVIDd (2D) 6.15 cm (3.7 - 5.6) LVIDs (2D) 5.2 cm (2 - 3.8) LV FS (2D) 15.5 % - EF Teichholz (2D) 32.08 % - Ao root diameter (2D) 2.77 cm (2 - 3.7) Volumes/Mass Name Value Normal Range LA ESV SP 4CH (A/L) 73.77 ml - LA ESV SP 2CH (A/L) 66.45 ml - LA ESV BP (A/L) 71.61 ml - LA ESV BP (A/L) index 30.6 ml/m2 - LA ESV SP 4CH (MOD) 72.55 ml - LA ESV SP 2CH (MOD) 65.34 ml - LA ESV BP (MOD) 70.27 ml - LA ESV BP (MOD) index 30.03 ml/m2 - Diastolic/Systolic Function Name Value Normal Range MV E-wave Vmax 0.85 m/sec - MV deceleration time 69.14 msec - MV A-wave Vmax 0.89 m/sec - MV E:A ratio 0.95 ratio - Aortic Valve Name Value Normal Range AV Vmax 0.96 m/sec - AV VTI 11.83 cm - AV peak gradient 3.68 mmHg - AV mean gradient 1.6 mmHg - LVOT diameter 2.19 cm - LVOT Vmax 0.86 m/sec - LVOT VTI 13.33 cm - LVOT peak gradient 2.96 mmHg - LVOT mean gradient 1.48 mmHg - SV LVOT 50.08 ml - DEYA (continuity Vmax) 3.37 cm2 - DEYA (continuity VTI) 4.23 cm2 - Ascending Ao 2.92 cm - Pulmonic Valve/Qp:Qs Name Value Normal Range PV Vmax 1.08 m/sec - PV VTI 15.88 cm - PV peak gradient 4.7 mmHg - PV mean gradient 2.18 mmHg - RVOT Vmax 0.82 m/sec - RVOT VTI 11.48 cm - RVOT peak gradient 2.67 mmHg - Wall[place] BAS Not Seen BA Not Seen BAL Not Seen BAY Normal BI Normal BIS Not Seen MAS Not Seen MA Not Seen MAL Not Seen MIL Akinetic AL Akinetic MIS Not Seen Not Seen AA Not Seen AL Akinetic AI Akinetic APEX Not Seen Tyson/IV: Voiding Method Indwelling Catheter IV Catheter Type [Right Peripheral IV Forearm] IV Catheter Type [Right INT / Saline Lock Antecubital] IV Catheter Type [Right Hand] Peripheral IV IV Catheter Type [Left Forearm INT / Saline Lock ] IV Catheter Type [Left Upper INT / Saline Lock arm] IV Catheter Type [Left Peripheral IV Antecubital] Active Medications - Current Medications Current Medications: Generic Name Dose Route Start Last Admin Trade Name Freq PRN Reason Stop Dose Admin Acetaminophen/Hydrocodone Bitart 2 each 03/22/20 17:18 04/06/20 09:52 [place] 5/325 PO 2 each Q4H PRN Administration Pain, Moderate (4-6) Albuterol 2.5 mg 04/01/20 00:03 Proventil IH Q6HRT PRN Shortness Of Breath Lipase/Protease/Amylase 1 each 04/10/20 17:39 Bernice Forrester 10,500 Unit FEEDTUBE PRN PRN For Clogged Feeding Tube Arformoterol Tartrate 15 mcg 03/19/20 20:00 04/10/20 22:29 Brovana Nebu IH 15 mcg Q12HRT LOI Administration Aspirin 81 mg 04/10/20 16:00 04/11/20 09:45 Halfprin Ec PO 81 mg QDAY LOI Administration Atorvastatin Calcium 40 mg 03/19/20 22:00 04/10/20 22:57 Lipitor PO 40 mg QHS LOI Administration Budesonide 0.5 mg 03/19/20 20:00 04/10/20 22:29 Pulmicort IH 0.5 mg Q12HRT LOI Administration Clopidogrel Bisulfate 75 mg 03/19/20 10:00 04/11/20 09:45 Plavix PO 75 mg QDAY LOI Administration Dextrose 50 ml 03/18/20 22:21 04/08/20 07:42 D50w (25gm) Syringe IV 50 ml Q30MIN PRN Administration Hypoglycemia Protocol Diphenhydramine HCl 25 mg 03/19/20 12:44 Benadryl IV Q4H PRN Itching Furosemide 40 mg 04/06/20 06:00 04/11/20 05:57 Lasix IV 40 mg 0600,1800 LOI Administration Guaifenesin 10 ml 04/01/20 00:03 04/09/20 21:17 Guaifenesin Dm Syrup PO 10 ml Q4H PRN Administration Cough Hydromorphone/Sodium Chloride 0 mg 03/19/20 13:00 03/30/20 02:09 Dilaudid [employer] 6mg/30ml IV 1 cart DIRECT LOI Administration Protocol Sodium Chloride 1,000 mls @ 75 mls/hr 04/07/20 16:45 04/11/20 09:48 Nacl 0.9% 1000 Ml IV 75 mls/hr DIRECT LOI Administration Cefepime HCl 1 gm in 100 mls @ 200 mls/hr 04/08/20 13:00 04/11/20 10:22 Cefepime/Ns 1 Gm/100 Ml IV 200 mls/hr Q12HR LOI Administration Protocol Insulin Human Lispro 0 unit 03/20/20 16:30 04/11/20 07:30 Humalog SUB-Q Not Given ACHS [facility] Protocol Ipratropium [place] 0.5 mg 04/01/20 00:05 Atrovent IH Q6HRT PRN Shortness Of Breath Lorazepam 2 mg 04/11/20 11:00 Ativan IV 04/11/20 11:01 ONCE ONE Magnesium Hydroxide 30 ml 03/18/20 22:21 Milk Of Magnesia PO Q4H PRN Constipation Metoprolol Tartrate 50 mg 03/19/20 22:00 04/11/20 09:45 Metoprolol PO 50 mg BID LOI Administration Naloxone HCl 0.1 mg 03/19/20 12:44 Naloxone IV Q2MIN PRN Res Rate </= 8 or 02 SAT < 92% Ondansetron HCl 4 mg 03/18/20 22:21 04/05/20 01:46 Zofran IV 4 mg Q8H PRN Administration Nausea And Vomiting Pantoprazole Sodium 40 mg 03/20/20 10:00 04/11/20 09:45 Protonix PO 40 mg BID LOI Administration Pregabalin 150 mg 03/22/20 22:00 04/11/20 09:45 Pregabalin PO 150 mg BID LOI Administration Simple Syrup 15 ml 04/10/20 17:39 Simple Syrup FEEDTUBE PRN PRN Hypoglycemia Simple Syrup 30 ml 04/10/20 17:39 Simple Syrup FEEDTUBE PRN PRN Hypoglycemia Sodium Bicarbonate 325 mg 04/10/20 17:39 Sodium Bicarbonate FEEDTUBE PRN PRN For Clogged Feeding Tube Sodium Chloride 10 ml 03/19/20 10:00 04/11/20 09:47 Sodium Chloride Flush Syringe 10 Ml IV 10 ml BID LOI Administration Sodium Chloride 10 ml 03/18/20 22:21 04/11/20 05:57 Sodium Chloride Flush Syringe 10 Ml IV 10 ml PRN PRN Administration LINE FLUSH Zolpidem Tartrate 5 mg 03/31/20 19:09 04/05/20 22:32 Ambien PO 5 mg QHS PRN Administration Sleep Nutrition/Malnutrition Assess - Dietary Evaluation Nutrition/Malnutrition Findings: Nutrition Notes Start: 03/19/20 11:59 Freq: Status: Active Protocol: Document 04/11/20 08:54 LM (Rec: 04/11/20 09:04 LM [id number]) Nutrition Notes Need for Assessment generated from: MD Order Initial or Follow up Reassessment Current Diagnosis COPD,Diabetes Other Pertinent Diagnosis (L) LE ischemia s/p (L) BKA, STARR, NSTEMI Current Diet TF Labs/Tests K 5.3 Na 146 BUN 109 Cr 2.1 Pertinent Medications Lasix Height 6 ft Weight 128.1 kg [place] Body Weight (kg) 80.90 BMI 38.2 Weight Status Obese Subjective/Other Information MD consult for TF. Pt with dobhoff. Burn Absent Trauma Absent Current % PO Negligible Minimum of two criteria No #1 Nutrition Diagnosis Increased nutrient needs ( specify in comment below) Diagnosis Progress(for reassessment Continues documentation) Is patient on ventilator? No Is Patient Ambulatory and/or Out of Bed No REE-(Wise-St. Jeor-confined to bed) 2588.544 Kcal/Kg value to use for calculation 17 Approximate Energy Requirements Using 2178 kcal/Kg Calculation Used for Recommendations Kcal/kg Additional Notes Pro needs 1-1.2g/kg adjBW (not for amputation): 105-125g/day Fluid needs 1ml/kcal Nutrition Intervention Change Diet Order: TF Nutrition Support: [place] 1.8 at 45ml/hr Flush 200ml q4h Kcal 1,944 Protein (gm) 87 Fluid (mL) 785 Goal #1 TF start/tolerance Goal #2 Healing of surgical site Anticipated Discharge Needs: unable to determine at this time Follow-Up By: 04/15/20 Additional Comments F/U for TF start/tolerance, Na /K labs
--- NOTE | 2020-04-11 11:55 | Progress Note ---
Assessment and Plan Acute limb ischemia S/P revascularization surgery. Obstructive sleep apnea. History of chronic obstructive pulmonary disease. Acute hypoxemic respiratory failure. Diabetes. History of coronary artery disease. Non-ST elevation myocardial infarction. Acute coronary syndrome. Acute cerebrovascular accident. - place PICC line - continue to hold full anticoagulation re: risk of hemorrhagic transformation - Daily SAT and SBT assessment as tolerated - continue to wean supplemental oxygen for target O2 sat's > 90% acutely - VAP bundle addressed - continue lung protective strategies - continue bronchodilators with pulmonary hygiene per RT - wean per pulmonary driven protocols otherwise - sedation prn for target RASS 0 to -1 - continue wound care per WCN / RN - accuchecks with glycemic control per SSI (While critically ill target blood glucose of 140-180 mg/dL; avoid hypoglycemia) - wean supplemental oxygen for target O2 sat's > 90% acutely - prn bronchodilators with pulmonary hygiene per RT - avoid benzodiazepine's, reduce the possibility of delirium - AB's per surgery rec's (No S&S of overwhelming sepsis) - prn analgesia per CPOT score - Maintenance of sleep-wake cycle, avoid delirium - aspiration precautions - G.I. & VTE prophylaxis - PT/OT/ROM exercises - mobility protocols for pressure ulcer prophylaxis - Monitor hemodynamics closely - continue other care per attending / other consultants - discharge planning ongoing concurrently - transferred to telemetry .... Re-evaluate in am & prn CONDITION: CRITICAL PROGNOSIS: GUARDED CODE STATUS: FULL CODE The high probability of a clinically significant, sudden or life-threatening deterioration of the [respiratory, cardiovascular & neurologic] system(s) re quired my full and direct attention, intervention and personal management. The aggregate critical care time was [35] minutes without overlap. Time includes spent on; [x] Data Review and interpretation [x] Patient assessment and monitoring of vital signs [x] Documentation [x] Medication orders and management Subjective Date of service: 04/11/20 Principal diagnosis: Acute limb ischemia; STARR; COPD; Ac hypoxemic resp failure; DM II; NSTEMI Interval history: Patient is seen today for: Acute limb ischemia S/P revascularization surgery; STARR; COPD; Acute hypoxemic respiratory failure; DM II; NSTEMI; Acute CVA Seen and examined at bedside; 24hour events reviewed; nursing and respiratory care staff consulted; no adverse overnight events reported to me; resting peacefully in bed; decompensated during MRI and s/p CODE BLUE; now on MVS; no emesis or overt aspiration; MRI documented acute/subacute infarct without hemorrhagic transformation Objective Vital Signs - 12hr 04/11/20 04/11/20 04:21 07:46 Temperature 97.0 F L 98.6 F Pulse Rate 82 83 Respiratory 16 20 Rate Blood Pressure 130/80 107/64 O2 Sat by Pulse 96 100 Oximetry Constitutional: appears uncomfortable, other (middle aged obese male intubated on MVS and without ventilator dyssynchrony) Eyes: non-icteric ENT: oropharynx moist, other (ETT 23 cm CARSON) Neck: supple, no lymphadenopathy, no JVD Effort: mildly labored Ascultation: Bilateral: rhonchi, other (+ referred upper airway sounds) Percussion: Bilateral: not dull Cardiovascular: irregular rhythm Gastrointestinal: normoactive bowel sounds, soft, non-tender, non-distended (protuberant) Integumentary: rash Extremities: cool, edema (right lower extremity), other (left BKA with clean dressing) Neurologic: pupils equal and round, unable to assess Psychiatric: other (encephalopathic) CBC and BMP: 04/12/20 07:22 04/12/20 07:22 ABG, PT/INR, D-dimer: ABG ABG pH 7.304 pH Units (7.350-7.450) L 04/09/20 03:45 ABG pCO2 47.4 mm Hg 04/09/20 03:45 ABG pO2 72.2 mm Hg (80.0-90.0) L 04/09/20 03:45 ABG O2 Saturation 93.7 % (95.0-99.0) L 04/09/20 03:45 PT/INR, D-dimer PT 24.0 Sec. (12.2-14.9) H 04/11/20 06:26 INR 2.10 (0.87-1.13) H 04/11/20 06:26 Abnormal lab findings: Abnormal Labs 03/18/20 03/18/20 03/18/20 18:28 18:28 20:56 WBC 12.3 H RBC Hgb Hct MCV MCHC RDW Lymph % (Auto) 11.0 L Rogers % (Auto) 9.8 H Lymph # Rogers # 1.2 H Seg Neutrophils % 78.4 H Seg Neuts % (Manual) Lymphocytes % (Manual) Nucleated RBC % Seg Neutrophils # 9.6 H Seg Neutrophils # Man Lymphocytes # (Manual) Monocytes # (Manual) Eosinophils # (Manual) PT INR Heparin Anti-Xa Level ABG pH ABG pO2 ABG HCO3 ABG O2 Saturation ABG Base Excess ABG Hemoglobin Oxyhemoglobin Sodium 132 L Potassium Chloride 91.9 L Carbon Dioxide 20 L BUN Creatinine 1.4 H Glucose 406 H POC Glucose Hemoglobin A1c Calcium Magnesium Ferritin AST ALT Alkaline Phosphatase Total Creatine Kinase 2727 H 2492 H CK-MB (CK-2) 135.9 H 107.2 H CK-MB (CK-2) Rel Index 4.3 H Troponin T 5.110 H* 3.960 H* D Total Protein Albumin Triglycerides 188 H LDL Cholesterol Direct 141 H 03/18/20 03/19/20 03/19/20 22:21 01:57 08:08 WBC RBC Hgb Hct MCV MCHC RDW Lymph % (Auto) Rogers % (Auto) Lymph # Rogers # Seg Neutrophils % Seg Neuts % (Manual) Lymphocytes % (Manual) Nucleated RBC % Seg Neutrophils # Seg Neutrophils # Man Lymphocytes # (Manual) Monocytes # (Manual) Eosinophils # (Manual) PT INR Heparin Anti-Xa Level ABG pH ABG pO2 ABG HCO3 ABG O2 Saturation ABG Base Excess ABG Hemoglobin Oxyhemoglobin Sodium Potassium Chloride Carbon Dioxide BUN Creatinine Glucose POC Glucose 317 H Hemoglobin A1c 11.0 H Calcium Magnesium Ferritin AST ALT Alkaline Phosphatase Total Creatine Kinase 7255 H CK-MB (CK-2) 79.3 H CK-MB (CK-2) Rel Index Troponin T 5.540 H* D Total Protein Albumin Triglycerides LDL Cholesterol Direct 03/19/20 03/19/20 03/19/20 08:08 08:08 08:08 WBC 13.3 H RBC Hgb Hct MCV MCHC RDW Lymph % (Auto) 10.7 L Rogers % (Auto) 8.5 H Lymph # Rogers # 1.1 H Seg Neutrophils % 80.0 H Seg Neuts % (Manual) Lymphocytes % (Manual) Nucleated RBC % Seg Neutrophils # 10.6 H Seg Neutrophils # Man Lymphocytes # (Manual) Monocytes # (Manual) Eosinophils # (Manual) PT INR Heparin Anti-Xa Level 0.10 L ABG pH ABG pO2 ABG HCO3 ABG O2 Saturation ABG Base Excess ABG Hemoglobin Oxyhemoglobin Sodium 133 L Potassium 5.1 H Chloride Carbon Dioxide 17 L BUN 23 H Creatinine Glucose 313 H POC Glucose Hemoglobin A1c Calcium Magnesium Ferritin AST ALT Alkaline Phosphatase Total Creatine Kinase CK-MB (CK-2) CK-MB (CK-2) Rel Index Troponin T Total Protein Albumin Triglycerides LDL Cholesterol Direct 03/19/20 03/19/20 03/19/20 15:40 18:23 21:32 WBC RBC Hgb Hct MCV MCHC RDW Lymph % (Auto) Rogers % (Auto) Lymph # Rogers # Seg Neutrophils % Seg Neuts % (Manual) Lymphocytes % (Manual) Nucleated RBC % Seg Neutrophils # Seg Neutrophils # Man Lymphocytes # (Manual) Monocytes # (Manual) Eosinophils # (Manual) PT INR Heparin Anti-Xa Level < 0.10 L ABG pH ABG pO2 ABG HCO3 18.3 L ABG O2 Saturation ABG Base Excess -5.4 L ABG Hemoglobin 12.2 L Oxyhemoglobin 94.6 L Sodium Potassium Chloride Carbon Dioxide BUN Creatinine Glucose POC Glucose 348 H Hemoglobin A1c Calcium Magnesium Ferritin AST ALT Alkaline Phosphatase Total Creatine Kinase CK-MB (CK-2) CK-MB (CK-2) Rel Index Troponin T Total Protein Albumin Triglycerides LDL Cholesterol Direct 03/20/20 03/20/20 03/20/20 04:35 05:12 05:12 WBC 11.1 H RBC 3.63 L Hgb 11.0 L Hct 32.7 L D MCV MCHC RDW Lymph % (Auto) Rogers % (Auto) 8.1 H Lymph # Rogers # 0.9 H Seg Neutrophils % 75.8 H Seg Neuts % (Manual) Lymphocytes % (Manual) Nucleated RBC % Seg Neutrophils # 8.4 H Seg Neutrophils # Man Lymphocytes # (Manual) Monocytes # (Manual) Eosinophils # (Manual) PT INR Heparin Anti-Xa Level 0.28 L ABG pH ABG pO2 68.3 L ABG HCO3 ABG O2 Saturation 94.3 L ABG Base Excess ABG Hemoglobin 7.1 L Oxyhemoglobin 92.3 L Sodium Potassium Chloride Carbon Dioxide BUN Creatinine Glucose POC Glucose Hemoglobin A1c Calcium Magnesium Ferritin AST ALT Alkaline Phosphatase Total Creatine Kinase CK-MB (CK-2) CK-MB (CK-2) Rel Index Troponin T Total Protein Albumin Triglycerides LDL Cholesterol Direct 03/20/20 03/20/20 03/20/20 05:12 07:49 12:15 WBC RBC Hgb Hct MCV MCHC RDW Lymph % (Auto) Rogers % (Auto) Lymph # Rogers # Seg Neutrophils % Seg Neuts % (Manual) Lymphocytes % (Manual) Nucleated RBC % Seg Neutrophils # Seg Neutrophils # Man Lymphocytes # (Manual) Monocytes # (Manual) Eosinophils # (Manual) PT INR Heparin Anti-Xa Level ABG pH ABG pO2 ABG HCO3 ABG O2 Saturation ABG Base Excess ABG Hemoglobin Oxyhemoglobin Sodium 134 L Potassium Chloride Carbon Dioxide 21 L BUN 23 H Creatinine Glucose 275 H POC Glucose 294 H 357 H Hemoglobin A1c Calcium Magnesium Ferritin AST ALT Alkaline Phosphatase Total Creatine Kinase CK-MB (CK-2) CK-MB (CK-2) Rel Index Troponin T 3.200 H* D Total Protein Albumin Triglycerides LDL Cholesterol Direct 03/20/20 03/20/20 03/21/20 17:16 22:08 04:44 WBC RBC Hgb Hct MCV MCHC RDW Lymph % (Auto) Rogers % (Auto) Lymph # Rogers # Seg Neutrophils % Seg Neuts % (Manual) Lymphocytes % (Manual) Nucleated RBC % Seg Neutrophils # Seg Neutrophils # Man Lymphocytes # (Manual) Monocytes # (Manual) Eosinophils # (Manual) PT INR Heparin Anti-Xa Level ABG pH ABG pO2 ABG HCO3 ABG O2 Saturation ABG Base Excess ABG Hemoglobin Oxyhemoglobin Sodium 136 L Potassium Chloride Carbon Dioxide 18 L BUN 26 H Creatinine Glucose 266 H POC Glucose 327 H 292 H Hemoglobin A1c Calcium 8.1 L Magnesium Ferritin AST ALT Alkaline Phosphatase Total Creatine Kinase CK-MB (CK-2) CK-MB (CK-2) Rel Index Troponin T Total Protein Albumin Triglycerides LDL Cholesterol Direct 03/21/20 03/21/20 03/21/20 07:50 12:25 15:53 WBC RBC Hgb Hct MCV MCHC RDW Lymph % (Auto) Rogers % (Auto) Lymph # Rogers # Seg Neutrophils % Seg Neuts % (Manual) Lymphocytes % (Manual) Nucleated RBC % Seg Neutrophils # Seg Neutrophils # Man Lymphocytes # (Manual) Monocytes # (Manual) Eosinophils # (Manual) PT INR Heparin Anti-Xa Level ABG pH ABG pO2 ABG HCO3 ABG O2 Saturation ABG Base Excess ABG Hemoglobin Oxyhemoglobin Sodium Potassium Chloride Carbon Dioxide BUN Creatinine Glucose POC Glucose 271 H 314 H 436 H Hemoglobin A1c Calcium Magnesium Ferritin AST ALT Alkaline Phosphatase Total Creatine Kinase CK-MB (CK-2) CK-MB (CK-2) Rel Index Troponin T Total Protein Albumin Triglycerides LDL Cholesterol Direct 03/21/20 03/21/20 03/22/20 17:44 21:55 04:33 WBC RBC Hgb 10.0 L Hct 29.4 L MCV MCHC RDW Lymph % (Auto) Rogers % (Auto) Lymph # Rogers # Seg Neutrophils % Seg Neuts % (Manual) Lymphocytes % (Manual) Nucleated RBC % Seg Neutrophils # Seg Neutrophils # Man Lymphocytes # (Manual) Monocytes # (Manual) Eosinophils # (Manual) PT INR Heparin Anti-Xa Level ABG pH ABG pO2 ABG HCO3 ABG O2 Saturation ABG Base Excess ABG Hemoglobin Oxyhemoglobin Sodium Potassium Chloride Carbon Dioxide BUN Creatinine Glucose POC Glucose 362 H 329 H Hemoglobin A1c Calcium Magnesium Ferritin AST ALT Alkaline Phosphatase Total Creatine Kinase CK-MB (CK-2) CK-MB (CK-2) Rel Index Troponin T Total Protein Albumin Triglycerides LDL Cholesterol Direct 03/22/20 03/22/20 03/22/20 08:57 14:12 19:57 WBC RBC Hgb Hct MCV MCHC RDW Lymph % (Auto) Rogers % (Auto) Lymph # Rogers # Seg Neutrophils % Seg Neuts % (Manual) Lymphocytes % (Manual) Nucleated RBC % Seg Neutrophils # Seg Neutrophils # Man Lymphocytes # (Manual) Monocytes # (Manual) Eosinophils # (Manual) PT INR Heparin Anti-Xa Level ABG pH ABG pO2 ABG HCO3 ABG O2 Saturation ABG Base Excess ABG Hemoglobin Oxyhemoglobin Sodium Potassium Chloride Carbon Dioxide BUN Creatinine Glucose POC Glucose 284 H 319 H 356 H Hemoglobin A1c Calcium Magnesium Ferritin AST ALT Alkaline Phosphatase Total Creatine Kinase CK-MB (CK-2) CK-MB (CK-2) Rel Index Troponin T Total Protein Albumin Triglycerides LDL Cholesterol Direct 03/22/20 03/23/20 03/23/20 21:44 08:18 12:46 WBC RBC Hgb Hct MCV MCHC RDW Lymph % (Auto) Rogers % (Auto) Lymph # Rogers # Seg Neutrophils % Seg Neuts % (Manual) Lymphocytes % (Manual) Nucleated RBC % Seg Neutrophils # Seg Neutrophils # Man Lymphocytes # (Manual) Monocytes # (Manual) Eosinophils # (Manual) PT INR Heparin Anti-Xa Level ABG pH ABG pO2 ABG HCO3 ABG O2 Saturation ABG Base Excess ABG Hemoglobin Oxyhemoglobin Sodium Potassium Chloride Carbon Dioxide BUN Creatinine Glucose POC Glucose 336 H 215 H 262 H Hemoglobin A1c Calcium Magnesium Ferritin AST ALT Alkaline Phosphatase Total Creatine Kinase CK-MB (CK-2) CK-MB (CK-2) Rel Index Troponin T Total Protein Albumin Triglycerides LDL Cholesterol Direct 03/23/20 03/23/20 03/24/20 15:56 22:05 02:35 WBC RBC Hgb 9.0 L Hct 25.8 L MCV MCHC RDW Lymph % (Auto) Rogers % (Auto) Lymph # Rogers # Seg Neutrophils % Seg Neuts % (Manual) Lymphocytes % (Manual) Nucleated RBC % Seg Neutrophils # Seg Neutrophils # Man Lymphocytes # (Manual) Monocytes # (Manual) Eosinophils # (Manual) PT INR Heparin Anti-Xa Level ABG pH ABG pO2 ABG HCO3 ABG O2 Saturation ABG Base Excess ABG Hemoglobin Oxyhemoglobin Sodium Potassium Chloride Carbon Dioxide BUN Creatinine Glucose POC Glucose 246 H 322 H Hemoglobin A1c Calcium Magnesium Ferritin AST ALT Alkaline Phosphatase Total Creatine Kinase CK-MB (CK-2) CK-MB (CK-2) Rel Index Troponin T Total Protein Albumin Triglycerides LDL Cholesterol Direct 03/24/20 03/24/20 03/24/20 07:38 11:45 16:02 WBC RBC Hgb Hct MCV MCHC RDW Lymph % (Auto) Rogers % (Auto) Lymph # Rogers # Seg Neutrophils % Seg Neuts % (Manual) Lymphocytes % (Manual) Nucleated RBC % Seg Neutrophils # Seg Neutrophils # Man Lymphocytes # (Manual) Monocytes # (Manual) Eosinophils # (Manual) PT INR Heparin Anti-Xa Level ABG pH ABG pO2 ABG HCO3 ABG O2 Saturation ABG Base Excess ABG Hemoglobin Oxyhemoglobin Sodium Potassium Chloride Carbon Dioxide BUN Creatinine Glucose POC Glucose 289 H 257 H 150 H Hemoglobin A1c Calcium Magnesium Ferritin AST ALT Alkaline Phosphatase Total Creatine Kinase CK-MB (CK-2) CK-MB (CK-2) Rel Index Troponin T Total Protein Albumin Triglycerides LDL Cholesterol Direct 03/24/20 03/25/20 03/25/20 21:24 04:06 07:39 WBC RBC Hgb Hct MCV MCHC RDW Lymph % (Auto) Rogers % (Auto) Lymph # Rogers # Seg Neutrophils % Seg Neuts % (Manual) Lymphocytes % (Manual) Nucleated RBC % Seg Neutrophils # Seg Neutrophils # Man Lymphocytes # (Manual) Monocytes # (Manual) Eosinophils # (Manual) PT INR Heparin Anti-Xa Level 0.10 L ABG pH ABG pO2 ABG HCO3 ABG O2 Saturation ABG Base Excess ABG Hemoglobin Oxyhemoglobin Sodium Potassium Chloride Carbon Dioxide BUN Creatinine Glucose POC Glucose 228 H 332 H Hemoglobin A1c Calcium Magnesium Ferritin AST ALT Alkaline Phosphatase Total Creatine Kinase CK-MB (CK-2) CK-MB (CK-2) Rel Index Troponin T Total Protein Albumin Triglycerides LDL Cholesterol Direct 03/25/20 03/25/20 03/25/20 08:13 09:30 11:59 WBC 13.1 H RBC 2.82 L Hgb 8.5 L Hct 26.1 L MCV MCHC RDW Lymph % (Auto) Rogers % (Auto) Lymph # Rogers # Seg Neutrophils % Seg Neuts % (Manual) Lymphocytes % (Manual) Nucleated RBC % Seg Neutrophils # Seg Neutrophils # Man Lymphocytes # (Manual) Monocytes # (Manual) Eosinophils # (Manual) PT INR Heparin Anti-Xa Level ABG pH ABG pO2 ABG HCO3 ABG O2 Saturation ABG Base Excess ABG Hemoglobin Oxyhemoglobin Sodium 131 L Potassium 5.3 H Chloride Carbon Dioxide 20 L BUN 39 H Creatinine 1.4 H Glucose 313 H POC Glucose 273 H Hemoglobin A1c Calcium 8.1 L Magnesium Ferritin AST ALT Alkaline Phosphatase Total Creatine Kinase CK-MB (CK-2) CK-MB (CK-2) Rel Index Troponin T Total Protein Albumin Triglycerides LDL Cholesterol Direct 03/25/20 03/25/20 03/25/20 13:54 15:58 18:21 WBC RBC Hgb Hct MCV MCHC RDW Lymph % (Auto) Rogers % (Auto) Lymph # Rogers # Seg Neutrophils % Seg Neuts % (Manual) Lymphocytes % (Manual) Nucleated RBC % Seg Neutrophils # Seg Neutrophils # Man Lymphocytes # (Manual) Monocytes # (Manual) Eosinophils # (Manual) PT INR Heparin Anti-Xa Level ABG pH ABG pO2 ABG HCO3 ABG O2 Saturation ABG Base Excess ABG Hemoglobin Oxyhemoglobin Sodium Potassium Chloride Carbon Dioxide BUN Creatinine Glucose POC Glucose 246 H 235 H 185 H Hemoglobin A1c Calcium Magnesium Ferritin AST ALT Alkaline Phosphatase Total Creatine Kinase CK-MB (CK-2) CK-MB (CK-2) Rel Index Troponin T Total Protein Albumin Triglycerides LDL Cholesterol Direct 03/25/20 03/26/20 03/26/20 20:45 05:15 06:59 WBC 17.4 H 15.6 H RBC 3.05 L 3.05 L Hgb 9.1 L 9.2 L Hct 28.2 L 27.9 L MCV MCHC RDW Lymph % (Auto) 8.9 L 8.9 L Rogers % (Auto) Lymph # Rogers # 1.0 H Seg Neutrophils % 84.4 H 84.8 H Seg Neuts % (Manual) Lymphocytes % (Manual) Nucleated RBC % Seg Neutrophils # 14.7 H 13.2 H Seg Neutrophils # Man Lymphocytes # (Manual) Monocytes # (Manual) Eosinophils # (Manual) PT INR Heparin Anti-Xa Level ABG pH ABG pO2 ABG HCO3 ABG O2 Saturation ABG Base Excess ABG Hemoglobin Oxyhemoglobin Sodium Potassium Chloride Carbon Dioxide BUN Creatinine Glucose POC Glucose 178 H Hemoglobin A1c Calcium Magnesium Ferritin AST ALT Alkaline Phosphatase Total Creatine Kinase CK-MB (CK-2) CK-MB (CK-2) Rel Index Troponin T Total Protein Albumin Triglycerides LDL Cholesterol Direct 03/26/20 03/26/20 03/26/20 06:59 07:43 11:56 WBC RBC Hgb Hct MCV MCHC RDW Lymph % (Auto) Rogers % (Auto) Lymph # Rogers # Seg Neutrophils % Seg Neuts % (Manual) Lymphocytes % (Manual) Nucleated RBC % Seg Neutrophils # Seg Neutrophils # Man Lymphocytes # (Manual) Monocytes # (Manual) Eosinophils # (Manual) PT INR Heparin Anti-Xa Level ABG pH ABG pO2 ABG HCO3 ABG O2 Saturation ABG Base Excess ABG Hemoglobin Oxyhemoglobin Sodium 131 L Potassium 5.8 H Chloride Carbon Dioxide 16 L BUN 42 H Creatinine 1.4 H Glucose 163 H POC Glucose 170 H 198 H Hemoglobin A1c Calcium 8.0 L Magnesium Ferritin AST ALT Alkaline Phosphatase Total Creatine Kinase CK-MB (CK-2) CK-MB (CK-2) Rel Index Troponin T Total Protein Albumin Triglycerides LDL Cholesterol Direct 03/26/20 03/26/20 03/26/20 13:58 16:16 21:00 WBC RBC Hgb Hct MCV MCHC RDW Lymph % (Auto) Rogers % (Auto) Lymph # Rogers # Seg Neutrophils % Seg Neuts % (Manual) Lymphocytes % (Manual) Nucleated RBC % Seg Neutrophils # Seg Neutrophils # Man Lymphocytes # (Manual) Monocytes # (Manual) Eosinophils # (Manual) PT INR Heparin Anti-Xa Level ABG pH ABG pO2 ABG HCO3 ABG O2 Saturation ABG Base Excess ABG Hemoglobin Oxyhemoglobin Sodium 128 L Potassium 6.0 H Chloride Carbon Dioxide 15 L BUN 45 H Creatinine 1.4 H Glucose 190 H POC Glucose 184 H 192 H Hemoglobin A1c Calcium 8.2 L Magnesium Ferritin AST ALT Alkaline Phosphatase Total Creatine Kinase CK-MB (CK-2) CK-MB (CK-2) Rel Index Troponin T Total Protein Albumin Triglycerides LDL Cholesterol Direct 03/27/20 03/27/20 03/27/20 08:32 11:51 14:39 WBC 22.9 H RBC 2.68 L Hgb 7.9 L Hct 24.7 L MCV MCHC RDW Lymph % (Auto) Rogers % (Auto) Lymph # Rogers # Seg Neutrophils % Seg Neuts % (Manual) Lymphocytes % (Manual) Nucleated RBC % Seg Neutrophils # Seg Neutrophils # Man Lymphocytes # (Manual) Monocytes # (Manual) Eosinophils # (Manual) PT INR Heparin Anti-Xa Level ABG pH ABG pO2 ABG HCO3 ABG O2 Saturation ABG Base Excess ABG Hemoglobin Oxyhemoglobin Sodium Potassium Chloride Carbon Dioxide BUN Creatinine Glucose POC Glucose 233 H 252 H Hemoglobin A1c Calcium Magnesium Ferritin AST ALT Alkaline Phosphatase Total Creatine Kinase CK-MB (CK-2) CK-MB (CK-2) Rel Index Troponin T Total Protein Albumin Triglycerides LDL Cholesterol Direct 03/27/20 03/27/20 03/27/20 14:39 15:19 21:35 WBC RBC Hgb Hct MCV MCHC RDW Lymph % (Auto) Rogers % (Auto) Lymph # Rogers # Seg Neutrophils % Seg Neuts % (Manual) Lymphocytes % (Manual) Nucleated RBC % Seg Neutrophils # Seg Neutrophils # Man Lymphocytes # (Manual) Monocytes # (Manual) Eosinophils # (Manual) PT INR Heparin Anti-Xa Level ABG pH ABG pO2 ABG HCO3 ABG O2 Saturation ABG Base Excess ABG Hemoglobin Oxyhemoglobin Sodium 133 L Potassium 5.5 H Chloride Carbon Dioxide 16 L BUN 46 H Creatinine 1.4 H Glucose 225 H POC Glucose 239 H 202 H Hemoglobin A1c Calcium 8.2 L Magnesium Ferritin AST ALT Alkaline Phosphatase Total Creatine Kinase CK-MB (CK-2) CK-MB (CK-2) Rel Index Troponin T Total Protein Albumin Triglycerides LDL Cholesterol Direct 03/28/20 03/28/20 03/28/20 07:39 07:39 08:36 WBC 22.4 H RBC 2.71 L Hgb 7.9 L Hct 24.5 L MCV MCHC RDW Lymph % (Auto) Rogers % (Auto) Lymph # Rogers # Seg Neutrophils % Seg Neuts % (Manual) 88.0 H Lymphocytes % (Manual) 5.0 L Nucleated RBC % Seg Neutrophils # Seg Neutrophils # Man 19.7 H Lymphocytes # (Manual) 1.1 L Monocytes # (Manual) 1.6 H Eosinophils # (Manual) PT INR Heparin Anti-Xa Level ABG pH ABG pO2 ABG HCO3 ABG O2 Saturation ABG Base Excess ABG Hemoglobin Oxyhemoglobin Sodium 134 L Potassium Chloride Carbon Dioxide 19 L BUN 47 H Creatinine Glucose 240 H POC Glucose 253 H Hemoglobin A1c Calcium 7.8 L Magnesium Ferritin AST ALT Alkaline Phosphatase Total Creatine Kinase CK-MB (CK-2) CK-MB (CK-2) Rel Index Troponin T Total Protein Albumin Triglycerides LDL Cholesterol Direct 03/28/20 03/28/20 03/28/20 11:54 17:08 21:17 WBC RBC Hgb Hct MCV MCHC RDW Lymph % (Auto) Rogers % (Auto) Lymph # Rogers # Seg Neutrophils % Seg Neuts % (Manual) Lymphocytes % (Manual) Nucleated RBC % Seg Neutrophils # Seg Neutrophils # Man Lymphocytes # (Manual) Monocytes # (Manual) Eosinophils # (Manual) PT INR Heparin Anti-Xa Level ABG pH ABG pO2 ABG HCO3 ABG O2 Saturation ABG Base Excess ABG Hemoglobin Oxyhemoglobin Sodium Potassium Chloride Carbon Dioxide BUN Creatinine Glucose POC Glucose 306 H 178 H 186 H Hemoglobin A1c Calcium Magnesium Ferritin AST ALT Alkaline Phosphatase Total Creatine Kinase CK-MB (CK-2) CK-MB (CK-2) Rel Index Troponin T Total Protein Albumin Triglycerides LDL Cholesterol Direct 03/29/20 03/29/20 03/29/20 08:32 12:04 14:19 WBC 21.5 H RBC 2.82 L Hgb 8.4 L Hct 26.1 L MCV MCHC RDW Lymph % (Auto) Rogers % (Auto) Lymph # Rogers # Seg Neutrophils % Seg Neuts % (Manual) 85.0 H Lymphocytes % (Manual) 11.0 L Nucleated RBC % 3.0 H Seg Neutrophils # Seg Neutrophils # Man 18.3 H Lymphocytes # (Manual) Monocytes # (Manual) Eosinophils # (Manual) 0.6 H PT INR Heparin Anti-Xa Level ABG pH ABG pO2 ABG HCO3 ABG O2 Saturation ABG Base Excess ABG Hemoglobin Oxyhemoglobin Sodium Potassium Chloride Carbon Dioxide BUN Creatinine Glucose POC Glucose 110 H 263 H Hemoglobin A1c Calcium Magnesium Ferritin AST ALT Alkaline Phosphatase Total Creatine Kinase CK-MB (CK-2) CK-MB (CK-2) Rel Index Troponin T Total Protein Albumin Triglycerides LDL Cholesterol Direct 03/29/20 03/29/20 03/30/20 16:17 22:57 11:00 WBC RBC Hgb Hct MCV MCHC RDW Lymph % (Auto) Rogers % (Auto) Lymph # Rogers # Seg Neutrophils % Seg Neuts % (Manual) Lymphocytes % (Manual) Nucleated RBC % Seg Neutrophils # Seg Neutrophils # Man Lymphocytes # (Manual) Monocytes # (Manual) Eosinophils # (Manual) PT INR Heparin Anti-Xa Level ABG pH ABG pO2 ABG HCO3 ABG O2 Saturation ABG Base Excess ABG Hemoglobin Oxyhemoglobin Sodium Potassium Chloride Carbon Dioxide BUN Creatinine Glucose POC Glucose 109 H 194 H 129 H Hemoglobin A1c Calcium Magnesium Ferritin AST ALT Alkaline Phosphatase Total Creatine Kinase CK-MB (CK-2) CK-MB (CK-2) Rel Index Troponin T Total Protein Albumin Triglycerides LDL Cholesterol Direct 03/30/20 03/30/20 03/31/20 15:16 21:54 04:27 WBC 15.8 H RBC 2.62 L Hgb 7.7 L Hct 24.1 L MCV MCHC RDW Lymph % (Auto) 9.4 L Rogers % (Auto) Lymph # Rogers # Seg Neutrophils % 84.4 H Seg Neuts % (Manual) Lymphocytes % (Manual) Nucleated RBC % Seg Neutrophils # 13.3 H Seg Neutrophils # Man Lymphocytes # (Manual) Monocytes # (Manual) Eosinophils # (Manual) PT INR Heparin Anti-Xa Level ABG pH ABG pO2 ABG HCO3 ABG O2 Saturation ABG Base Excess ABG Hemoglobin Oxyhemoglobin Sodium Potassium Chloride Carbon Dioxide BUN Creatinine Glucose POC Glucose 115 H 166 H Hemoglobin A1c Calcium Magnesium Ferritin AST ALT Alkaline Phosphatase Total Creatine Kinase CK-MB (CK-2) CK-MB (CK-2) Rel Index Troponin T Total Protein Albumin Triglycerides LDL Cholesterol Direct 03/31/20 03/31/20 03/31/20 04:27 07:37 11:46 WBC RBC Hgb Hct MCV MCHC RDW Lymph % (Auto) Rogers % (Auto) Lymph # Rogers # Seg Neutrophils % Seg Neuts % (Manual) Lymphocytes % (Manual) Nucleated RBC % Seg Neutrophils # Seg Neutrophils # Man Lymphocytes # (Manual) Monocytes # (Manual) Eosinophils # (Manual) PT INR Heparin Anti-Xa Level ABG pH ABG pO2 ABG HCO3 ABG O2 Saturation ABG Base Excess ABG Hemoglobin Oxyhemoglobin Sodium 133 L Potassium Chloride 96.6 L Carbon Dioxide 18 L BUN 75 H Creatinine 2.5 H D Glucose 129 H POC Glucose 156 H 224 H Hemoglobin A1c Calcium 8.0 L Magnesium Ferritin AST ALT Alkaline Phosphatase Total Creatine Kinase CK-MB (CK-2) CK-MB (CK-2) Rel Index Troponin T Total Protein Albumin Triglycerides LDL Cholesterol Direct 04/01/20 04/01/20 04/01/20 08:34 10:52 10:52 WBC 12.9 H RBC 2.75 L Hgb 8.2 L Hct 24.8 L MCV MCHC RDW Lymph % (Auto) 10.6 L Rogers % (Auto) Lymph # Rogers # Seg Neutrophils % 83.7 H Seg Neuts % (Manual) Lymphocytes % (Manual) Nucleated RBC % Seg Neutrophils # 10.8 H Seg Neutrophils # Man Lymphocytes # (Manual) Monocytes # (Manual) Eosinophils # (Manual) PT INR Heparin Anti-Xa Level ABG pH ABG pO2 ABG HCO3 ABG O2 Saturation ABG Base Excess ABG Hemoglobin Oxyhemoglobin Sodium 131 L Potassium Chloride 96.1 L Carbon Dioxide 17 L BUN 77 H Creatinine 2.3 H Glucose 205 H POC Glucose 110 H Hemoglobin A1c Calcium 7.9 L Magnesium Ferritin AST ALT Alkaline Phosphatase Total Creatine Kinase CK-MB (CK-2) CK-MB (CK-2) Rel Index Troponin T Total Protein Albumin Triglycerides LDL Cholesterol Direct 04/01/20 04/01/20 04/01/20 12:15 17:22 20:47 WBC RBC Hgb Hct MCV MCHC RDW Lymph % (Auto) Rogers % (Auto) Lymph # Rogers # Seg Neutrophils % Seg Neuts % (Manual) Lymphocytes % (Manual) Nucleated RBC % Seg Neutrophils # Seg Neutrophils # Man Lymphocytes # (Manual) Monocytes # (Manual) Eosinophils # (Manual) PT INR Heparin Anti-Xa Level ABG pH ABG pO2 ABG HCO3 ABG O2 Saturation ABG Base Excess ABG Hemoglobin Oxyhemoglobin Sodium Potassium Chloride Carbon Dioxide BUN Creatinine Glucose POC Glucose 201 H 219 H 156 H Hemoglobin A1c Calcium Magnesium Ferritin AST ALT Alkaline Phosphatase Total Creatine Kinase CK-MB (CK-2) CK-MB (CK-2) Rel Index Troponin T Total Protein Albumin Triglycerides LDL Cholesterol Direct 04/02/20 04/02/20 04/02/20 05:44 05:44 11:32 WBC 15.8 H RBC 2.81 L Hgb 8.2 L Hct 25.7 L MCV MCHC RDW Lymph % (Auto) Rogers % (Auto) Lymph # Rogers # 0.9 H Seg Neutrophils % 77.7 H Seg Neuts % (Manual) Lymphocytes % (Manual) Nucleated RBC % Seg Neutrophils # 12.3 H Seg Neutrophils # Man Lymphocytes # (Manual) Monocytes # (Manual) Eosinophils # (Manual) PT INR Heparin Anti-Xa Level ABG pH ABG pO2 ABG HCO3 ABG O2 Saturation ABG Base Excess ABG Hemoglobin Oxyhemoglobin Sodium 134 L Potassium Chloride Carbon Dioxide 19 L BUN 76 H Creatinine 2.0 H Glucose POC Glucose 116 H Hemoglobin A1c Calcium 8.0 L Magnesium Ferritin AST 291 H ALT 169 H Alkaline Phosphatase 256 H Total Creatine Kinase CK-MB (CK-2) CK-MB (CK-2) Rel Index Troponin T Total Protein 6.1 L Albumin 2.2 L Triglycerides LDL Cholesterol Direct 04/02/20 04/02/20 04/03/20 16:56 22:03 08:13 WBC RBC Hgb Hct MCV MCHC RDW Lymph % (Auto) Rogers % (Auto) Lymph # Rogers # Seg Neutrophils % Seg Neuts % (Manual) Lymphocytes % (Manual) Nucleated RBC % Seg Neutrophils # Seg Neutrophils # Man Lymphocytes # (Manual) Monocytes # (Manual) Eosinophils # (Manual) PT INR Heparin Anti-Xa Level ABG pH ABG pO2 ABG HCO3 ABG O2 Saturation ABG Base Excess ABG Hemoglobin Oxyhemoglobin Sodium Potassium Chloride Carbon Dioxide BUN Creatinine Glucose POC Glucose 141 H 152 H 126 H Hemoglobin A1c Calcium Magnesium Ferritin AST ALT Alkaline Phosphatase Total Creatine Kinase CK-MB (CK-2) CK-MB (CK-2) Rel Index Troponin T Total Protein Albumin Triglycerides LDL Cholesterol Direct 04/03/20 04/03/20 04/03/20 12:11 16:26 21:33 WBC RBC Hgb Hct MCV MCHC RDW Lymph % (Auto) Rogers % (Auto) Lymph # Rogers # Seg Neutrophils % Seg Neuts % (Manual) Lymphocytes % (Manual) Nucleated RBC % Seg Neutrophils # Seg Neutrophils # Man Lymphocytes # (Manual) Monocytes # (Manual) Eosinophils # (Manual) PT INR Heparin Anti-Xa Level ABG pH ABG pO2 ABG HCO3 ABG O2 Saturation ABG Base Excess ABG Hemoglobin Oxyhemoglobin Sodium Potassium Chloride Carbon Dioxide BUN Creatinine Glucose POC Glucose 139 H 164 H 147 H Hemoglobin A1c Calcium Magnesium Ferritin AST ALT Alkaline Phosphatase Total Creatine Kinase CK-MB (CK-2) CK-MB (CK-2) Rel Index Troponin T Total Protein Albumin Triglycerides LDL Cholesterol Direct 04/04/20 04/04/20 04/04/20 04:29 04:29 11:29 WBC 12.3 H RBC 2.88 L Hgb 8.4 L Hct 26.1 L MCV MCHC RDW Lymph % (Auto) Rogers % (Auto) Lymph # Rogers # Seg Neutrophils % 75.4 H Seg Neuts % (Manual) Lymphocytes % (Manual) Nucleated RBC % Seg Neutrophils # 9.3 H Seg Neutrophils # Man Lymphocytes # (Manual) Monocytes # (Manual) Eosinophils # (Manual) PT INR Heparin Anti-Xa Level ABG pH ABG pO2 ABG HCO3 ABG O2 Saturation ABG Base Excess ABG Hemoglobin Oxyhemoglobin Sodium 136 L Potassium Chloride Carbon Dioxide 19 L BUN 71 H Creatinine 1.7 H Glucose POC Glucose 108 H Hemoglobin A1c Calcium 8.0 L Magnesium Ferritin AST 673 H ALT 252 H Alkaline Phosphatase 311 H Total Creatine Kinase CK-MB (CK-2) CK-MB (CK-2) Rel Index Troponin T Total Protein Albumin 2.2 L Triglycerides LDL Cholesterol Direct 04/04/20 04/04/20 04/05/20 16:34 20:58 03:54 WBC 13.7 H RBC 3.03 L Hgb 8.7 L Hct 27.9 L MCV MCHC 31 L RDW 15.5 H Lymph % (Auto) Rogers % (Auto) Lymph # Rogers # Seg Neutrophils % 78.9 H Seg Neuts % (Manual) Lymphocytes % (Manual) Nucleated RBC % Seg Neutrophils # 10.8 H Seg Neutrophils # Man Lymphocytes # (Manual) Monocytes # (Manual) Eosinophils # (Manual) PT INR Heparin Anti-Xa Level ABG pH ABG pO2 ABG HCO3 ABG O2 Saturation ABG Base Excess ABG Hemoglobin Oxyhemoglobin Sodium Potassium Chloride Carbon Dioxide BUN Creatinine Glucose POC Glucose 151 H 131 H Hemoglobin A1c Calcium Magnesium Ferritin AST ALT Alkaline Phosphatase Total Creatine Kinase CK-MB (CK-2) CK-MB (CK-2) Rel Index Troponin T Total Protein Albumin Triglycerides LDL Cholesterol Direct 04/05/20 04/05/20 04/05/20 03:54 15:58 15:58 WBC RBC Hgb Hct MCV MCHC RDW Lymph % (Auto) Rogers % (Auto) Lymph # Rogers # Seg Neutrophils % Seg Neuts % (Manual) Lymphocytes % (Manual) Nucleated RBC % Seg Neutrophils # Seg Neutrophils # Man Lymphocytes # (Manual) Monocytes # (Manual) Eosinophils # (Manual) PT INR Heparin Anti-Xa Level ABG pH ABG pO2 67.1 L ABG HCO3 26.1 H ABG O2 Saturation 93.4 L ABG Base Excess ABG Hemoglobin 9.0 L Oxyhemoglobin 91.6 L Sodium 136 L Potassium 5.5 H Chloride Carbon Dioxide 21 L BUN 79 H Creatinine 1.9 H Glucose 63 L POC Glucose 129 H Hemoglobin A1c Calcium 8.2 L Magnesium Ferritin AST 696 H ALT 262 H Alkaline Phosphatase 325 H Total Creatine Kinase CK-MB (CK-2) CK-MB (CK-2) Rel Index Troponin T Total Protein Albumin 2.3 L Triglycerides LDL Cholesterol Direct 04/05/20 04/06/20 04/06/20 22:33 07:14 07:14 WBC RBC Hgb Hct MCV MCHC RDW Lymph % (Auto) Rogers % (Auto) Lymph # Rogers # Seg Neutrophils % Seg Neuts % (Manual) Lymphocytes % (Manual) Nucleated RBC % Seg Neutrophils # Seg Neutrophils # Man Lymphocytes # (Manual) Monocytes # (Manual) Eosinophils # (Manual) PT INR Heparin Anti-Xa Level ABG pH ABG pO2 ABG HCO3 ABG O2 Saturation ABG Base Excess ABG Hemoglobin Oxyhemoglobin Sodium Potassium 5.6 H Chloride Carbon Dioxide BUN 83 H Creatinine 1.9 H Glucose 202 H POC Glucose 253 H Hemoglobin A1c Calcium Magnesium Ferritin 444.2 H AST 469 H ALT 237 H Alkaline Phosphatase 332 H Total Creatine Kinase CK-MB (CK-2) CK-MB (CK-2) Rel Index Troponin T Total Protein Albumin 2.2 L Triglycerides LDL Cholesterol Direct 04/06/20 04/06/20 04/06/20 08:23 12:00 13:56 WBC RBC Hgb Hct MCV MCHC RDW Lymph % (Auto) Rogers % (Auto) Lymph # Rogers # Seg Neutrophils % Seg Neuts % (Manual) Lymphocytes % (Manual) Nucleated RBC % Seg Neutrophils # Seg Neutrophils # Man Lymphocytes # (Manual) Monocytes # (Manual) Eosinophils # (Manual) PT 27.0 H INR 2.44 H Heparin Anti-Xa Level ABG pH ABG pO2 ABG HCO3 ABG O2 Saturation ABG Base Excess ABG Hemoglobin Oxyhemoglobin Sodium Potassium Chloride Carbon Dioxide BUN Creatinine Glucose POC Glucose 226 H 176 H Hemoglobin A1c Calcium Magnesium Ferritin AST ALT Alkaline Phosphatase Total Creatine Kinase CK-MB (CK-2) CK-MB (CK-2) Rel Index Troponin T Total Protein Albumin Triglycerides LDL Cholesterol Direct 04/06/20 04/07/20 04/07/20 20:45 04:58 04:58 WBC RBC Hgb Hct MCV MCHC RDW Lymph % (Auto) Rogers % (Auto) Lymph # Rogers # Seg Neutrophils % Seg Neuts % (Manual) Lymphocytes % (Manual) Nucleated RBC % Seg Neutrophils # Seg Neutrophils # Man Lymphocytes # (Manual) Monocytes # (Manual) Eosinophils # (Manual) PT 30.9 H INR 2.89 H Heparin Anti-Xa Level ABG pH ABG pO2 ABG HCO3 ABG O2 Saturation ABG Base Excess ABG Hemoglobin Oxyhemoglobin Sodium Potassium 6.0 H Chloride Carbon Dioxide BUN 85 H Creatinine 2.1 H Glucose 177 H POC Glucose 139 H Hemoglobin A1c Calcium Magnesium Ferritin AST 351 H ALT 215 H Alkaline Phosphatase 332 H Total Creatine Kinase CK-MB (CK-2) CK-MB (CK-2) Rel Index Troponin T Total Protein Albumin 2.7 L Triglycerides LDL Cholesterol Direct 04/07/20 04/07/20 04/08/20 07:53 11:51 04:44 WBC 11.7 H RBC 3.07 L Hgb 9.1 L Hct 28.9 L MCV MCHC RDW 16.8 H Lymph % (Auto) 12.4 L Rogers % (Auto) Lymph # Rogers # Seg Neutrophils % 83.3 H Seg Neuts % (Manual) Lymphocytes % (Manual) Nucleated RBC % Seg Neutrophils # 9.7 H Seg Neutrophils # Man Lymphocytes # (Manual) Monocytes # (Manual) Eosinophils # (Manual) PT INR Heparin Anti-Xa Level ABG pH ABG pO2 ABG HCO3 ABG O2 Saturation ABG Base Excess ABG Hemoglobin Oxyhemoglobin Sodium Potassium Chloride Carbon Dioxide BUN Creatinine Glucose POC Glucose 167 H 120 H Hemoglobin A1c Calcium Magnesium Ferritin AST ALT Alkaline Phosphatase Total Creatine Kinase CK-MB (CK-2) CK-MB (CK-2) Rel Index Troponin T Total Protein Albumin Triglycerides LDL Cholesterol Direct 04/08/20 04/08/20 04/08/20 04:44 07:19 08:43 WBC RBC Hgb Hct MCV MCHC RDW Lymph % (Auto) Rogers % (Auto) Lymph # Rogers # Seg Neutrophils % Seg Neuts % (Manual) Lymphocytes % (Manual) Nucleated RBC % Seg Neutrophils # Seg Neutrophils # Man Lymphocytes # (Manual) Monocytes # (Manual) Eosinophils # (Manual) PT INR Heparin Anti-Xa Level ABG pH ABG pO2 ABG HCO3 ABG O2 Saturation ABG Base Excess ABG Hemoglobin Oxyhemoglobin Sodium Potassium 6.3 H* Chloride Carbon Dioxide 21 L BUN 89 H Creatinine 1.9 H Glucose 63 L POC Glucose 65 L 168 H Hemoglobin A1c Calcium Magnesium Ferritin AST 370 H ALT 211 H Alkaline Phosphatase 320 H Total Creatine Kinase CK-MB (CK-2) CK-MB (CK-2) Rel Index Troponin T Total Protein Albumin 2.6 L Triglycerides LDL Cholesterol Direct 04/08/20 04/08/20 04/08/20 12:53 16:38 21:47 WBC RBC Hgb Hct MCV MCHC RDW Lymph % (Auto) Rogers % (Auto) Lymph # Rogers # Seg Neutrophils % Seg Neuts % (Manual) Lymphocytes % (Manual) Nucleated RBC % Seg Neutrophils # Seg Neutrophils # Man Lymphocytes # (Manual) Monocytes # (Manual) Eosinophils # (Manual) PT INR Heparin Anti-Xa Level ABG pH ABG pO2 ABG HCO3 ABG O2 Saturation ABG Base Excess ABG Hemoglobin Oxyhemoglobin Sodium Potassium 6.0 H Chloride Carbon Dioxide BUN 90 H Creatinine 2.1 H Glucose 124 H POC Glucose 129 H 118 H Hemoglobin A1c Calcium Magnesium Ferritin AST ALT Alkaline Phosphatase Total Creatine Kinase CK-MB (CK-2) CK-MB (CK-2) Rel Index Troponin T Total Protein Albumin Triglycerides LDL Cholesterol Direct 04/09/20 04/09/20 04/09/20 03:45 08:04 19:10 WBC RBC Hgb Hct MCV MCHC RDW Lymph % (Auto) Rogers % (Auto) Lymph # Rogers # Seg Neutrophils % Seg Neuts % (Manual) Lymphocytes % (Manual) Nucleated RBC % Seg Neutrophils # Seg Neutrophils # Man Lymphocytes # (Manual) Monocytes # (Manual) Eosinophils # (Manual) PT INR Heparin Anti-Xa Level ABG pH 7.304 L ABG pO2 72.2 L ABG HCO3 ABG O2 Saturation 93.7 L ABG Base Excess -3.3 L ABG Hemoglobin 8.9 L Oxyhemoglobin 91.8 L Sodium Potassium 6.6 H* 6.5 H* Chloride Carbon Dioxide 21 L BUN 99 H 100 H Creatinine 2.2 H 2.3 H Glucose POC Glucose Hemoglobin A1c Calcium 8.2 L Magnesium Ferritin AST ALT Alkaline Phosphatase Total Creatine Kinase CK-MB (CK-2) CK-MB (CK-2) Rel Index Troponin T Total Protein Albumin Triglycerides LDL Cholesterol Direct 04/10/20 04/10/20 04/10/20 05:48 05:48 08:53 WBC RBC 3.01 L Hgb 8.9 L Hct 28.4 L MCV 95 H MCHC 31 L RDW 17.6 H Lymph % (Auto) 11.4 L Rogers % (Auto) Lymph # 1.1 L Rogers # Seg Neutrophils % 81.1 H Seg Neuts % (Manual) Lymphocytes % (Manual) Nucleated RBC % Seg Neutrophils # 8.1 H Seg Neutrophils # Man Lymphocytes # (Manual) Monocytes # (Manual) Eosinophils # (Manual) PT INR Heparin Anti-Xa Level ABG pH ABG pO2 ABG HCO3 ABG O2 Saturation ABG Base Excess ABG Hemoglobin Oxyhemoglobin Sodium Potassium 5.2 H Chloride Carbon Dioxide BUN 104 H Creatinine 2.2 H Glucose 129 H POC Glucose 110 H Hemoglobin A1c Calcium Magnesium 2.80 H Ferritin AST 502 H ALT 249 H Alkaline Phosphatase 323 H Total Creatine Kinase CK-MB (CK-2) CK-MB (CK-2) Rel Index Troponin T Total Protein Albumin 2.5 L Triglycerides LDL Cholesterol Direct 04/10/20 04/10/20 04/10/20 11:42 16:05 21:35 WBC RBC Hgb Hct MCV MCHC RDW Lymph % (Auto) Rogers % (Auto) Lymph # Rogers # Seg Neutrophils % Seg Neuts % (Manual) Lymphocytes % (Manual) Nucleated RBC % Seg Neutrophils # Seg Neutrophils # Man Lymphocytes # (Manual) Monocytes # (Manual) Eosinophils # (Manual) PT INR Heparin Anti-Xa Level ABG pH ABG pO2 ABG HCO3 ABG O2 Saturation ABG Base Excess ABG Hemoglobin Oxyhemoglobin Sodium Potassium Chloride Carbon Dioxide BUN Creatinine Glucose POC Glucose 135 H 137 H 151 H Hemoglobin A1c Calcium Magnesium Ferritin AST ALT Alkaline Phosphatase Total Creatine Kinase CK-MB (CK-2) CK-MB (CK-2) Rel Index Troponin T Total Protein Albumin Triglycerides LDL Cholesterol Direct 04/11/20 04/11/20 04/11/20 06:26 06:26 06:26 WBC RBC 2.89 L Hgb 8.6 L Hct 27.4 L MCV 95 H MCHC 31 L RDW 17.5 H Lymph % (Auto) 9.9 L Rogers % (Auto) Lymph # 1.0 L Rogers # Seg Neutrophils % 85.7 H Seg Neuts % (Manual) Lymphocytes % (Manual) Nucleated RBC % Seg Neutrophils # 8.8 H Seg Neutrophils # Man Lymphocytes # (Manual) Monocytes # (Manual) Eosinophils # (Manual) PT 24.0 H INR 2.10 H Heparin Anti-Xa Level ABG pH ABG pO2 ABG HCO3 ABG O2 Saturation ABG Base Excess ABG Hemoglobin Oxyhemoglobin Sodium 146 H Potassium 5.3 H Chloride 108.2 H Carbon Dioxide BUN 109 H Creatinine 2.1 H Glucose 160 H POC Glucose Hemoglobin A1c Calcium Magnesium Ferritin AST 298 H ALT 207 H Alkaline Phosphatase 274 H Total Creatine Kinase CK-MB (CK-2) CK-MB (CK-2) Rel Index Troponin T Total Protein Albumin 2.5 L Triglycerides LDL Cholesterol Direct 04/11/20 04/11/20 07:57 11:33 WBC RBC Hgb Hct MCV MCHC RDW Lymph % (Auto) Rogers % (Auto) Lymph # Rogers # Seg Neutrophils % Seg Neuts % (Manual) Lymphocytes % (Manual) Nucleated RBC % Seg Neutrophils # Seg Neutrophils # Man Lymphocytes # (Manual) Monocytes # (Manual) Eosinophils # (Manual) PT INR Heparin Anti-Xa Level ABG pH ABG pO2 ABG HCO3 ABG O2 Saturation ABG Base Excess ABG Hemoglobin Oxyhemoglobin Sodium Potassium Chloride Carbon Dioxide BUN Creatinine Glucose POC Glucose 170 H 167 H Hemoglobin A1c Calcium Magnesium Ferritin AST ALT Alkaline Phosphatase Total Creatine Kinase CK-MB (CK-2) CK-MB (CK-2) Rel Index Troponin T Total Protein Albumin Triglycerides LDL Cholesterol Direct Chest x-ray: image reviewed (re-expansion of left lung post intubation) Allied health notes reviewed: nursing
--- NOTE | 2020-04-11 12:16 | Progress Note ---
Assessment and Plan Cultures: wound culture: normal skin stan A/P: 54-year-old male with prior CVA, hypertension, diabetes, coronary artery disease, history of DVT and PE, peripheral vascular disease who was admitted to the hospital with a cold left lower extremity. He underwent a BKA on 03/25/2020: #Sepsis: L BKA stump infection v/s pneumonia. CXR 04/08/2020 with almost complete opacification of left hemithorax. . #Left BKA stump drainage: Vascular is following. No fever. Empiric antibiotics for now. Follow wound culture results. Serous drainage from Left BKA stump, ?mild cellulitis. #Peripheral vascular disease #Diabetes mellitus, uncontrolled: Maintain glycemic control #Acute kidney injury: Renally dose antibiotics #Elevated LFTs /transaminitis: Question of cholecystitis. Unable to perform a HIDA since he could not lay flat. GI and surgery following. #Acute encephalopathy: CT head with late subacute infarction in [place]. Recs: continue Cefepime + Vancomycin, renally dosed, stop tomorrow Chris Brower MD, FACP [facility] C: [phone] O: [phone] F: [phone] Subjective Date of service: 04/11/20 Principal diagnosis: Acute limb ischemia; STARR; COPD; Ac hypoxemic resp failure; DM II; NSTEMI Interval history: No fever. Patient drowsy, on ventimask today. Objective - Exam Narrative Exam: Physical Exam: Constitutional: drowsy, can be awakened, on ventimask Head, Ears, Nose: Normocephalic, atraumatic. External ears, nose normal Eyes: Conjunctivae/corneas clear. No icterus. No ptosis. Cardiovascular: S1, S2 normal. Respiratory: AE fair b/l GI: Soft, non-tender; bowel sounds normal. No peritoneal signs Musculoskeletal: Left BKA stump in dressing Skin: No rash or abscess Hem/Lymphatic: No palpable cervical or supraclavicular nodes. No lymphangitis Psych: No agitation Neurological: Somnolent, exam limited - Constitutional Vitals: Vital Signs Temp Pulse Resp BP Pulse Ox 98.6 F 83 20 107/64 100 04/11/20 07:46 04/11/20 07:46 04/11/20 07:46 04/11/20 07:46 04/11/20 07:46 Temperature -Last 24 Hours Temperature 98.6 F Temperature 97.0 F Temperature 97.5 F Temperature 99.0 F Temperature 98.9 F - Labs CBC & Chem 7: 04/11/20 06:26 04/11/20 06:26 Labs: Abnormal lab results 04/10/20 04/10/20 04/11/20 Range/Units 16:05 21:35 06:26 RBC 2.89 L (3.65-5.03) M/mm3 Hgb 8.6 L (11.8-15.2) gm/dl Hct 27.4 L (35.5-45.6) % MCV 95 H (84-94) fl MCHC 31 L (32-34) % RDW 17.5 H (13.2-15.2) % Lymph % (Auto) 9.9 L (13.4-35.0) % Lymph # 1.0 L (1.2-5.4) K/mm3 Seg Neutrophils % 85.7 H (40.0-70.0) % Seg Neutrophils # 8.8 H (1.8-7.7) K/mm3 PT (12.2-14.9) Sec. INR (0.87-1.13) Sodium (137-145) mmol/L Potassium (3.6-5.0) mmol/L Chloride (98-107) mmol/L BUN (9-20) mg/dL Creatinine (0.8-1.3) mg/dL Glucose (75-100) mg/dL POC Glucose 137 H 151 H (70-105) AST (5-40) units/L ALT (7-56) units/L Alkaline Phosphatase (35-129) units/L Albumin (3.9-5) g/dL 04/11/20 04/11/20 04/11/20 Range/Units 06:26 06:26 07:57 RBC (3.65-5.03) M/mm3 Hgb (11.8-15.2) gm/dl Hct (35.5-45.6) % MCV (84-94) fl MCHC (32-34) % RDW (13.2-15.2) % Lymph % (Auto) (13.4-35.0) % Lymph # (1.2-5.4) K/mm3 Seg Neutrophils % (40.0-70.0) % Seg Neutrophils # (1.8-7.7) K/mm3 PT 24.0 H (12.2-14.9) Sec. INR 2.10 H (0.87-1.13) Sodium 146 H (137-145) mmol/L Potassium 5.3 H (3.6-5.0) mmol/L Chloride 108.2 H (98-107) mmol/L BUN 109 H (9-20) mg/dL Creatinine 2.1 H (0.8-1.3) mg/dL Glucose 160 H (75-100) mg/dL POC Glucose 170 H (70-105) AST 298 H (5-40) units/L ALT 207 H (7-56) units/L Alkaline Phosphatase 274 H (35-129) units/L Albumin 2.5 L (3.9-5) g/dL 04/11/20 Range/Units 11:33 RBC (3.65-5.03) M/mm3 Hgb (11.8-15.2) gm/dl Hct (35.5-45.6) % MCV (84-94) fl MCHC (32-34) % RDW (13.2-15.2) % Lymph % (Auto) (13.4-35.0) % Lymph # (1.2-5.4) K/mm3 Seg Neutrophils % (40.0-70.0) % Seg Neutrophils # (1.8-7.7) K/mm3 PT (12.2-14.9) Sec. INR (0.87-1.13) Sodium (137-145) mmol/L Potassium (3.6-5.0) mmol/L Chloride (98-107) mmol/L BUN (9-20) mg/dL Creatinine (0.8-1.3) mg/dL Glucose (75-100) mg/dL POC Glucose 167 H (70-105) AST (5-40) units/L ALT (7-56) units/L Alkaline Phosphatase (35-129) units/L Albumin (3.9-5) g/dL
--- NOTE | 2020-04-11 12:50 | XRay Report ---
CHEST 1 VIEW INDICATION: SOB. COMPARISON: 3 days prior FINDINGS: Support devices: There is a new esophagogastric tube which extends below the diaphragm. Heart: Stable. Lungs/Pleura: Near-complete opacification of the left hemithorax is again noted. Mild right lung opac ities are stable. IMPRESSION: 1. No significant change. Signer Name: Tono Morrison MD Signed: 04/11/2020 12:46 PM Workstation Name: [id number]
[2020-04-11] MEDS ORDERED: SODIUM POLYSTYRENE 15 GM/60 ML ORAL LIQD PO ONE (13:13)
[2020-04-11] MEDS ORDERED: LORazepam 2 MG/ML VIAL IV SCH (13:15)
--- NOTE | 2020-04-11 13:57 | Progress Note ---
Assessment and Plan 1. Acute kidney injury: Vasomotor DYLON in the setting of sepsis and hypotension. US negative for hydro. UA results noted. Monitor renal function. Continue IV fluids. Creatinine leveled off. Avoid nephrotoxic agents. Meds dosage based on GFR. 2. FEN: Hyperkalemia, Kayexalate ordered, monitor. Monitor lytes and volume status. 3. Sepsis: PNA vs L stump infection. Followed by ID. 4. Hypotension: Monitor BP. Continue IV fluids. 5. Acute left lower extremity ischemia: 03/19/2020 status post endovascular revascularization. 03/19/2020 s/p left lower extremity 4 compartment fasciotomy. 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 6. Non-ST elevation NM : Patient has history of CABG ,patient denies any chest pain. Followed by Cards. 7. Acute systolic CHF; EF 30-35%: Beta-blockers. 8. Acute metabolic encephalopathy: Multifactorial. Followed by Neurology. 9. Acute hypoxic respiratory failure: Supportive care, pulmonary following. O2 as required. 10. Elevated Transaminases: Followed by GI. 11. DM with hyperglycemia: Accu-Check, sliding scale coverage, ADA diet. HbA1C 11. 12. Anemia: Closely monitor and transfuse as needed. - Subjective: Patient was seen and examined at the bedside. - General Appearance General appearance: well-developed, obese, appears stated age, on NC O2 HEENT: ATNC, PERRL Neck: Trachea midline Respiratory: appears ctab Cardiology: regular, S1S2, no murmur Gastrointestinal: normoactive bowel sounds, not tender, not distended Integumentary: L BKA dressing Neurologic: stuporous, non-verbal, not following any command Ext: trace LE edema Subjective Date of service: 04/11/20 Principal diagnosis: Acute limb ischemia; STARR; COPD; Ac hypoxemic resp failure; DM II; NSTEMI Objective - Vital Signs Vital signs: Vital Signs - 12hr 04/11/20 04/11/20 04:21 07:46 Temperature 97.0 F L 98.6 F Pulse Rate 82 83 Respiratory 16 20 Rate Blood Pressure 130/80 107/64 O2 Sat by Pulse 96 100 Oximetry - Lab 04/11/20 18:17 04/11/20 18:17 Most recent lab results ABG pH 7.304 pH Units (7.350-7.450) L 04/09/20 03:45 ABG pCO2 47.4 mm Hg 04/09/20 03:45 ABG pO2 72.2 mm Hg (80.0-90.0) L 04/09/20 03:45 ABG HCO3 23.0 mmol/L (20.0-26.0) 04/09/20 03:45 ABG O2 Saturation 93.7 % (95.0-99.0) L 04/09/20 03:45 Calcium 8.8 mg/dL (8.4-10.2) 04/11/20 06:26 Magnesium 2.80 mg/dL (1.7-2.3) H 04/10/20 05:48 Medications & Allergies - Medications Allergies/Adverse Reactions: Allergies No Known Allergies Allergy (Unverified 03/18/20 15:17) Home Medications: Home Medications Medication Instructions Recorded Confirmed Last Taken Type AtorvaSTATin [Lipitor] 20 mg PO QHS 03/20/20 03/20/20 03/14/20 History Clopidogrel [Plavix] 75 mg PO QHS 03/20/20 03/20/20 03/14/20 History Famotidine [Acid Controller] 20 mg PO BID 03/20/20 03/20/20 03/14/20 History Fenofibrate Nanocrystallized 48 mg PO DAILY 03/20/20 03/20/20 03/14/20 History [Fenofibrate] Metoprolol Tartrate 25 mg PO BID 03/20/20 03/20/20 03/14/20 History Pregabalin [Lyrica] 150 mg PO BID 03/20/20 03/20/20 03/14/20 History amLODIPine [Norvasc] 5 mg PO DAILY 03/20/20 03/20/20 03/14/20 History glipiZIDE [Glucotrol] 10 mg PO BID 03/20/20 03/20/20 03/14/20 History hydroCHLOROthiazide [HCTZ] 25 mg PO QDAY 03/20/20 03/20/20 03/14/20 History lisinopriL [Zestril TAB] 40 mg PO QDAY 03/20/20 03/20/20 03/14/20 History Active Medications: Generic Name Dose Route Start Last Admin Trade Name Freq PRN Reason Stop Dose Admin Acetaminophen/Hydrocodone Bitart 2 each 03/22/20 17:18 04/06/20 09:52 [place] 5/325 PO 2 each Q4H PRN Administration Pain, Moderate (4-6) Albuterol 2.5 mg 04/01/20 00:03 Proventil IH Q6HRT PRN Shortness Of Breath Lipase/Protease/Amylase 1 each 04/10/20 17:39 Bernice Forrester 10,500 Unit FEEDTUBE PRN PRN For Clogged Feeding Tube Arformoterol Tartrate 15 mcg 03/19/20 20:00 04/10/20 22:29 Brovana Nebu IH 15 mcg Q12HRT LOI Administration Aspirin 81 mg 04/10/20 16:00 04/11/20 09:45 Halfprin Ec PO 81 mg QDAY LOI Administration Atorvastatin Calcium 40 mg 03/19/20 22:00 04/10/20 22:57 Lipitor PO 40 mg QHS LOI Administration Budesonide 0.5 mg 03/19/20 20:00 04/10/20 22:29 Pulmicort IH 0.5 mg Q12HRT LOI Administration Clopidogrel Bisulfate 75 mg 03/19/20 10:00 04/11/20 09:45 Plavix PO 75 mg QDAY LOI Administration Dextrose 50 ml 03/18/20 22:21 04/08/20 07:42 D50w (25gm) Syringe IV 50 ml Q30MIN PRN Administration Hypoglycemia Protocol Diphenhydramine HCl 25 mg 03/19/20 12:44 Benadryl IV Q4H PRN Itching Furosemide 40 mg 04/06/20 06:00 04/11/20 05:57 Lasix IV 40 mg 0600,1800 LOI Administration Guaifenesin 10 ml 04/01/20 00:03 04/09/20 21:17 Guaifenesin Dm Syrup PO 10 ml Q4H PRN Administration Cough Hydromorphone/Sodium Chloride 0 mg 03/19/20 13:00 03/30/20 02:09 Dilaudid Gardening Instructor 6mg/30ml IV 1 cart DIRECT LOI Administration Protocol Sodium Chloride 1,000 mls @ 75 mls/hr 04/07/20 16:45 04/11/20 09:48 Nacl 0.9% 1000 Ml IV 75 mls/hr DIRECT LOI Administration Cefepime HCl 1 gm in 100 mls @ 200 mls/hr 04/08/20 13:00 04/11/20 10:22 Cefepime/Ns 1 Gm/100 Ml IV 200 mls/hr Q12HR LOI Administration Protocol Insulin Human Lispro 0 unit 03/20/20 16:30 04/11/20 11:30 Humalog SUB-Q Not Given ACHS [facility] Protocol Ipratropium [place] 0.5 mg 04/01/20 00:05 Atrovent IH Q6HRT PRN Shortness Of Breath Lorazepam 2 mg 04/11/20 13:15 Ativan IV 04/11/20 23:00 ONCE LOI Magnesium Hydroxide 30 ml 03/18/20 22:21 Milk Of Magnesia PO Q4H PRN Constipation Metoprolol Tartrate 50 mg 03/19/20 22:00 04/11/20 09:45 Metoprolol PO 50 mg BID LOI Administration Naloxone HCl 0.1 mg 03/19/20 12:44 Naloxone IV Q2MIN PRN Res Rate </= 8 or 02 SAT < 92% Ondansetron HCl 4 mg 03/18/20 22:21 04/05/20 01:46 Zofran IV 4 mg Q8H PRN Administration Nausea And Vomiting Pantoprazole Sodium 40 mg 03/20/20 10:00 04/11/20 09:45 Protonix PO 40 mg BID LOI Administration Pregabalin 150 mg 03/22/20 22:00 04/11/20 09:45 Pregabalin PO 150 mg BID LOI Administration Simple Syrup 15 ml 04/10/20 17:39 Simple Syrup FEEDTUBE PRN PRN Hypoglycemia Simple Syrup 30 ml 04/10/20 17:39 Simple Syrup FEEDTUBE PRN PRN Hypoglycemia Sodium Bicarbonate 325 mg 04/10/20 17:39 Sodium Bicarbonate FEEDTUBE PRN PRN For Clogged Feeding Tube Sodium Chloride 10 ml 03/19/20 10:00 04/11/20 09:47 Sodium Chloride Flush Syringe 10 Ml IV 10 ml BID LOI Administration Sodium Chloride 10 ml 03/18/20 22:21 04/11/20 05:57 Sodium Chloride Flush Syringe 10 Ml IV 10 ml PRN PRN Administration LINE FLUSH Zolpidem Tartrate 5 mg 03/31/20 19:09 04/05/20 22:32 Ambien PO 5 mg QHS PRN Administration Sleep
--- NOTE | 2020-04-11 15:36 | Event Note ---
Date: 04/11/20 (Emergent Intubation) Responded to CODE BLUE in MRI. Arrived with ACLS already in progress being directed by ED physician. RT assisting ventilation with FM + AMBU. Intubated direct laryngoscopy w/MAC 4, grade 3 view, 2 attempts, 8.0 oETT. Placement confirmed with glidescope visualization, B/L BS and +CO2 color change. ROSC achieved and patient transported back to ICU in care for further care. See code sheet. Time 1515 - 1530 Laura Schmid MD Anesthesiologist
--- NOTE | 2020-04-11 15:44 | Event Note ---
Date: 04/11/20 Called to NORM VENEGAS in MRI. When I arrived, nurse was administering chest compressions. States initial rhythm was PEA. Patient was given 2 doses of epi, 1 amp of sodium bicarb with return of spontaneous circulation following. Patient was initially bradycardic in the 30s, so 1 amp of atropine was given. Heart rate improved to the 50s. At that time, hospitalist Dr. Tovar, arrived and patient care was handed over to her. He was transported to the ICU. Patient was intubated by anesthesiologist who responded to code.
--- NOTE | 2020-04-11 15:56 | Event Note ---
Date: 04/11/20 Code met and CODE BLUE note Patient was in radiology department to get an MRI brain for evaluation of acute CVA recommended by neurology Patient was unresponsive initially code met/rapid response was called and subsequently patient had a cardiac arrest CODE BLUE was called, when I arrived at the scene CPR was in progress per ACLS protocol supervised by ER physician Return of spontaneous circulation ,patient was intubated Placed on ventilatory support, patient was brought to ICU immediately, receptionist secretary was informed. Stat chest x-ray, set of new labs, EKG obtained I called patient's son Abhishek Obrien and informed of the event , patient's condition Poor prognosis, CODE STATUS. Full code at this time Total critical care time today 65 minutes
[2020-04-11] MEDS: BUDESONIDE 0.5 MG/2 ML NEBU IH SCH ×2 (15:58→21:01)
[2020-04-11] MEDS: ARFORMOTEROL 15 MCG/2 ML NEBU IH SCH ×2 (15:58→21:01)
--- NOTE | 2020-04-11 16:29 | Magnetic Resonance Report ---
MR MRA/MRV head wo con INDICATION / CLINICAL INFORMATION: 54 years Male; MAIN. TECHNIQUE: 3-D time of flight. NASCET type criteria used to evaluate stenoses. Some motion artifact COMPARISON: None available. FINDINGS: INTERNAL CAROTID ARTERIES: No significant narrowing appreciated. Focal areas of mild narrowing are se en in the cavernous portion of the right internal carotid artery - not felt to be hemodynamically sig nificant. VERTEBROBASILAR SYSTEM: Focal area of mild to moderate narrowing is seen in the right vertebral arter y in the region of foramen magnum. Basilar artery is widely patent. DISTAL BRANCHES: Distal branches of the anterior, middle, and posterior cerebral arteries are fairly symmetric in appearance and number. There is decreased signal in the right MCA branches, compared with the left which may be related to m otion artifact. There is an area of mild to moderate narrowing in the mid M1 segment on the right, ho wever, which may contribute to this finding. Small areas of [id number] narrowing are seen in th e MCA trifurcation region on the left. Focal area of mild to moderate narrowing is seen in the P1 region of the right posterior cerebral art bhargavi. Focal area of narrowing is seen in a proximal A3 region. ANEURYSM: None identified. IMPRESSION: Areas of narrowing identified, as described above. Signer Name: Irvin Trimble MD, III Signed: 04/11/2020 4:25 PM Workstation Name: [id number]
--- NOTE | 2020-04-11 16:36 | Magnetic Resonance Report ---
MR brain wo con INDICATION / CLINICAL INFORMATION: 54 years Male; MAIN. TECHNIQUE: Multiplanar, multisequence MR images of the brain were obtained. Motion artifact COMPARISON: None available. FINDINGS: BRAIN / INTRACRANIAL CONTENTS: Branch acute/early subacute ischemic changes are seen in the left isaias etal temporal region-branch MCA infarct suspected. Old, moderately sized, branch PICA infarcts seen bilaterally-left more prominent than right. There may be an arachnoid cyst anterior the left cerebellar hemisphere-of no clinical significance. Otherwise, no acute hemorrhage, mass effect, midline shift, hydrocephalus, or acute, large territori al infarct. No chronic infarct or atrophy. No significant white matter abnormality. CRANIOCERVICAL JUNCTION: No significant abnormality. VASCULAR FLOW-VOIDS: No significant abnormality. ORBITS: No significant abnormality of visualized orbits. SINUSES / MASTOIDS: Mild mucosal thickening seen in the ethmoids. Mild to moderate mucosal thickening also seen in the mastoids. ADDITIONAL FINDINGS: None. IMPRESSION: 1. Ischemic changes in the posterior MCA territory on the left as described above. No definitive sign s of hemorrhagic transformation. 2. Otherwise, no focal intra-axial mass, hemorrhage, hydrocephalus, or ischemia seen. Signer Name: Irvin Trimble MD, III Signed: 04/11/2020 4:31 PM Workstation Name: [id number]
--- NOTE | 2020-04-11 16:40 | XRay Report ---
CHEST 1 VIEW INDICATION: Intubated/cardiac arrest. COMPARISON: Earlier today FINDINGS: SUPPORT DEVICES: New endotracheal tube with tip at the level the clavicles. Otherwise the Dobhoff tub e tip is in the distal esophagus and should be advanced at least 10 cm. HEART: Stable cardiomegaly. LUNGS/PLEURA: Mild interstitial edema with trace left effusion. Left lung aeration is significantly i mproved since there was previously a large left-sided effusion. ADDITIONAL FINDINGS: None. IMPRESSION: 1. Improved exam as outlined above. There is mild underlying residual interstitial edema in this geneva ent with cardiomegaly. 2. Support devices as above. Signer Name: Abhishek Zuniga MD Signed: 04/11/2020 4:35 PM Workstation Name: [id number]
[2020-04-11 16:56] LABS: Bilirubin,Urine NEG (Negative); Blood,Urine LG (Negative); Color,Urine Yellow (Yellow); Mucus,Urine FEW /HPF; Protein,Urine <15 mg/dL mg/dL (Negative); Urobilinogen,Urine < 2.0 mg/dL (<2.0)
--- NOTE | 2020-04-11 17:00 | Magnetic Resonance Report ---
MRI BRAIN WITHOUT CONTRAST, MRA HEAD WITHOUT CONTRAST, MRA NECK WITHOUT CONTRAST INDICATION / CLINICAL INFORMATION: Stroke, hypertension. TECHNIQUE: 3-D/MIP reformats postprocessed. Percentage stenosis is determined by direct quantitative measurement s of distal internal carotid artery diameter compared with normal reference segments or by criteria s imilar to NASCET where applicable. COMPARISON: None available. FINDINGS: Aortic arch: No significant abnormality. Cervical vertebral arteries: No significant abnormality. Common carotid arteries: No significant abnormality. Cervical internal carotid arteries: No significant abnormality. Additional findings: None. IMPRESSION: 1. No significant stenosis or large vessel occlusion in the neck arteries. Signer Name: Cornelius Fletcher MD Signed: 04/11/2020 4:55 PM Workstation Name: [id number]
[2020-04-11 17:18] LABS: ABG Base Excess -4.4 mmol/L (-2.0-3.0); ABG HCO3 21.4 mmol/L (20.0-26.0); ABG Methemoglobin 0.6 % (0.0-1.5); ABG Oxygen Saturation 99.5 % (95.0-99.0); ABG PH 7.325 pH Units (7.350-7.450)
[2020-04-11 17:19] LABS: ABG PO2 304.4 mm Hg (80.0-90.0)
--- NOTE | 2020-04-11 17:34 | Progress Note ---
Assessment and Plan Patient is a 54 y/o man w/ a h/o CVA w/ no residual deficits, HTN, DM, HLD, CAD s/p CABG, h/o DVT w/ PE, COPD, STARR. He presented on 03/18/20 w/ left foot pain and discoloration, and underwent revascularization of left foot followed by left BK A. Patient was also found to have NSTEMI and later developed DYLON, transaminitis, anemia, hypotension, and sepsis. On 04/08/20, patient was noted to be lethargic, for which a CT head was ordered, which revealed subacute stroke in left parietal region. According to the patient's clinical findings, it is likely that he has had a stroke. Patient coded on 04/11/20, was given CPR and returned spontaneous circulation. Patient likely has anoxic brain injury after cardiac arrest. Plan: 1. Stroke: - MRI brain: left parietal infarct noted. - MRA head/neck: no significant stenosis noted. - CUS: no significant stenosis. - CT head: Subacute infarct noted in left parietal lobe. - Echo: EF 30-35%, LA normal size. bubble study not performed. - Cont. Plavix. - Cont. statin. LDL goal <70 - Telemetry monitoring while in house - PT/OT/ST - DVT Ppx: Recommend lovenox - Given that patient has a subacute stroke on CT head, there is a risk of hemorrhagic transformation given that patient is on anti-coagulation. If the indication is active DVT/PE, then benefit of anti-coagulation in reducing risk of propogation of DVT/PE outweighs risk of hemorrhagic transformation of stroke, as PE has high risk of causing mortality. However, if patient does not have am active DVT/PE, then would recommend holding Eliquis for at least 7 days, given recent stroke, as well as elevated INR, to reduce risk of hemorrhagic conversion. Will defer to primary and vascular surgery teams regarding indication of anti-coagulation. Discussed with primary team, who mentioned that vascular surgery had placed patient on anti-coagulation. 2. Anoxic brain injury: - Patient coded on 04/11/20. - Patient is not brain , given intact cough reflex. - Will obtain CT head to assess extent of anoxic brain injury, and also monitor neurologic exam. Difficult to assess prognosis at this time, as cardiac arrest is recent. - Continue supportive care per primary team. 2. Hypertension: - Recommend BP goal of normotension, as it has been >48 hours since symptom onset. 3. Metabolic Encephalopathy - In setting of DYLON, transaminitis, anemia, hypotension, and sepsis - Continue to correct metabolic abnormalities and infections per primary team. - Will continue to monitor patient. Thank you for allowing me to take part in the care of this patient. Angel Duran MD Neurology This clinical encounter was provided via live telemedicine platform. Consultative service was provided for neurology to support local providers. The Acute Teleneurology team should be contacted with any neurologic worsening or clinical changes, new test results, or new patient history that is reported to or discovered by the local team following completion of the teleneurology consultation, specifically that which has the potential to impact the consultative recommendations. Patient/Family was informed the Neurology Consult would happen via TeleHealth consult by way of interactive audio and video telecommunications and consented to receiving care in this manner. Due to the potential for life-threatening deterioration due to underlying neurologic illness, and limited resources available for patient care, telemedicine was used as means of patient care. Telemedicine consultation is limited in the extent of physical exam that can be virtually provided. Time spent evaluating patient includes time for face to face visit via telemedicine, review of medical records, imaging studies and discussion of findings with providers, the patient and/or family. Subjective Date of service: 04/11/20 Principal diagnosis: Stroke, anoxic brain injury Interval history: Patient coded in MRI today. Was given CPR and returned to spontaneous circulation. Objective - Exam Narrative Exam: Patient intubated, comatose. Pupils pinpoint and nonreactive, absent corneal/VOR. Intact cough. No w/d in any extremities to pain. Left BKA noted. - Vital Sign Vital Signs - 12hr 04/11/20 04/11/20 07:46 16:33 Temperature 98.6 F Pulse Rate 83 87 Respiratory 20 Rate Blood Pressure 107/64 91/50 O2 Sat by Pulse 100 100 Oximetry - Laboratory Findings CBC and BMP: 04/11/20 06:26 04/11/20 06:26 Abnormal Lab Findings: Abnormal Labs 03/18/20 03/18/20 03/18/20 18:28 18:28 20:56 WBC 12.3 H RBC Hgb Hct MCV MCHC RDW Lymph % (Auto) 11.0 L [place] % (Auto) 9.8 H Lymph # [place] # 1.2 H Seg Neutrophils % 78.4 H Seg Neuts % (Manual) Lymphocytes % (Manual) Nucleated RBC % Seg Neutrophils # 9.6 H Seg Neutrophils # Man Lymphocytes # (Manual) Monocytes # (Manual) Eosinophils # (Manual) PT INR Heparin Anti-Xa Level ABG pH ABG pO2 ABG HCO3 ABG O2 Saturation ABG Base Excess ABG Hemoglobin Oxyhemoglobin Sodium 132 L Potassium Chloride 91.9 L Carbon Dioxide 20 L BUN Creatinine 1.4 H Glucose 406 H POC Glucose Hemoglobin A1c Calcium Magnesium Ferritin AST ALT Alkaline Phosphatase Total Creatine Kinase 2727 H 2492 H CK-MB (CK-2) 135.9 H 107.2 H CK-MB (CK-2) Rel Index 4.3 H Troponin T 5.110 H* 3.960 H* D Total Protein Albumin Triglycerides 188 H LDL Cholesterol Direct 141 H Urine WBC (Auto) Urine Creatinine 03/18/20 03/19/20 03/19/20 22:21 01:57 08:08 WBC RBC Hgb Hct MCV MCHC RDW Lymph % (Auto) [place] % (Auto) Lymph # [place] # Seg Neutrophils % Seg Neuts % (Manual) Lymphocytes % (Manual) Nucleated RBC % Seg Neutrophils # Seg Neutrophils # Man Lymphocytes # (Manual) Monocytes # (Manual) Eosinophils # (Manual) PT INR Heparin Anti-Xa Level ABG pH ABG pO2 ABG HCO3 ABG O2 Saturation ABG Base Excess ABG Hemoglobin Oxyhemoglobin Sodium Potassium Chloride Carbon Dioxide BUN Creatinine Glucose POC Glucose 317 H Hemoglobin A1c 11.0 H Calcium Magnesium Ferritin AST ALT Alkaline Phosphatase Total Creatine Kinase 7255 H CK-MB (CK-2) 79.3 H CK-MB (CK-2) Rel Index Troponin T 5.540 H* D Total Protein Albumin Triglycerides LDL Cholesterol Direct Urine WBC (Auto) Urine Creatinine 03/19/20 03/19/20 03/19/20 08:08 08:08 08:08 WBC 13.3 H RBC Hgb Hct MCV MCHC RDW Lymph % (Auto) 10.7 L [place] % (Auto) 8.5 H Lymph # [place] # 1.1 H Seg Neutrophils % 80.0 H Seg Neuts % (Manual) Lymphocytes % (Manual) Nucleated RBC % Seg Neutrophils # 10.6 H Seg Neutrophils # Man Lymphocytes # (Manual) Monocytes # (Manual) Eosinophils # (Manual) PT INR Heparin Anti-Xa Level 0.10 L ABG pH ABG pO2 ABG HCO3 ABG O2 Saturation ABG Base Excess ABG Hemoglobin Oxyhemoglobin Sodium 133 L Potassium 5.1 H Chloride Carbon Dioxide 17 L BUN 23 H Creatinine Glucose 313 H POC Glucose Hemoglobin A1c Calcium Magnesium Ferritin AST ALT Alkaline Phosphatase Total Creatine Kinase CK-MB (CK-2) CK-MB (CK-2) Rel Index Troponin T Total Protein Albumin Triglycerides LDL Cholesterol Direct Urine WBC (Auto) Urine Creatinine 03/19/20 03/19/20 03/19/20 15:40 18:23 21:32 WBC RBC Hgb Hct MCV MCHC RDW Lymph % (Auto) [place] % (Auto) Lymph # [place] # Seg Neutrophils % Seg Neuts % (Manual) Lymphocytes % (Manual) Nucleated RBC % Seg Neutrophils # Seg Neutrophils # Man Lymphocytes # (Manual) Monocytes # (Manual) Eosinophils # (Manual) PT INR Heparin Anti-Xa Level < 0.10 L ABG pH ABG pO2 ABG HCO3 18.3 L ABG O2 Saturation ABG Base Excess -5.4 L ABG Hemoglobin 12.2 L Oxyhemoglobin 94.6 L Sodium Potassium Chloride Carbon Dioxide BUN Creatinine Glucose POC Glucose 348 H Hemoglobin A1c Calcium Magnesium Ferritin AST ALT Alkaline Phosphatase Total Creatine Kinase CK-MB (CK-2) CK-MB (CK-2) Rel Index Troponin T Total Protein Albumin Triglycerides LDL Cholesterol Direct Urine WBC (Auto) Urine Creatinine 03/20/20 03/20/20 03/20/20 04:35 05:12 05:12 WBC 11.1 H RBC 3.63 L Hgb 11.0 L Hct 32.7 L D MCV MCHC RDW Lymph % (Auto) [place] % (Auto) 8.1 H Lymph # [place] # 0.9 H Seg Neutrophils % 75.8 H Seg Neuts % (Manual) Lymphocytes % (Manual) Nucleated RBC % Seg Neutrophils # 8.4 H Seg Neutrophils # Man Lymphocytes # (Manual) Monocytes # (Manual) Eosinophils # (Manual) PT INR Heparin Anti-Xa Level 0.28 L ABG pH ABG pO2 68.3 L ABG HCO3 ABG O2 Saturation 94.3 L ABG Base Excess ABG Hemoglobin 7.1 L Oxyhemoglobin 92.3 L Sodium Potassium Chloride Carbon Dioxide BUN Creatinine Glucose POC Glucose Hemoglobin A1c Calcium Magnesium Ferritin AST ALT Alkaline Phosphatase Total Creatine Kinase CK-MB (CK-2) CK-MB (CK-2) Rel Index Troponin T Total Protein Albumin Triglycerides LDL Cholesterol Direct Urine WBC (Auto) Urine Creatinine 03/20/20 03/20/20 03/20/20 05:12 07:49 12:15 WBC RBC Hgb Hct MCV MCHC RDW Lymph % (Auto) [place] % (Auto) Lymph # [place] # Seg Neutrophils % Seg Neuts % (Manual) Lymphocytes % (Manual) Nucleated RBC % Seg Neutrophils # Seg Neutrophils # Man Lymphocytes # (Manual) Monocytes # (Manual) Eosinophils # (Manual) PT INR Heparin Anti-Xa Level ABG pH ABG pO2 ABG HCO3 ABG O2 Saturation ABG Base Excess ABG Hemoglobin Oxyhemoglobin Sodium 134 L Potassium Chloride Carbon Dioxide 21 L BUN 23 H Creatinine Glucose 275 H POC Glucose 294 H 357 H Hemoglobin A1c Calcium Magnesium Ferritin AST ALT Alkaline Phosphatase Total Creatine Kinase CK-MB (CK-2) CK-MB (CK-2) Rel Index Troponin T 3.200 H* D Total Protein Albumin Triglycerides LDL Cholesterol Direct Urine WBC (Auto) Urine Creatinine 03/20/20 03/20/20 03/21/20 17:16 22:08 04:44 WBC RBC Hgb Hct MCV MCHC RDW Lymph % (Auto) [place] % (Auto) Lymph # [place] # Seg Neutrophils % Seg Neuts % (Manual) Lymphocytes % (Manual) Nucleated RBC % Seg Neutrophils # Seg Neutrophils # Man Lymphocytes # (Manual) Monocytes # (Manual) Eosinophils # (Manual) PT INR Heparin Anti-Xa Level ABG pH ABG pO2 ABG HCO3 ABG O2 Saturation ABG Base Excess ABG Hemoglobin Oxyhemoglobin Sodium 136 L Potassium Chloride Carbon Dioxide 18 L BUN 26 H Creatinine Glucose 266 H POC Glucose 327 H 292 H Hemoglobin A1c Calcium 8.1 L Magnesium Ferritin AST ALT Alkaline Phosphatase Total Creatine Kinase CK-MB (CK-2) CK-MB (CK-2) Rel Index Troponin T Total Protein Albumin Triglycerides LDL Cholesterol Direct Urine WBC (Auto) Urine Creatinine 03/21/20 03/21/20 03/21/20 07:50 12:25 15:53 WBC RBC Hgb Hct MCV MCHC RDW Lymph % (Auto) [place] % (Auto) Lymph # [place] # Seg Neutrophils % Seg Neuts % (Manual) Lymphocytes % (Manual) Nucleated RBC % Seg Neutrophils # Seg Neutrophils # Man Lymphocytes # (Manual) Monocytes # (Manual) Eosinophils # (Manual) PT INR Heparin Anti-Xa Level ABG pH ABG pO2 ABG HCO3 ABG O2 Saturation ABG Base Excess ABG Hemoglobin Oxyhemoglobin Sodium Potassium Chloride Carbon Dioxide BUN Creatinine Glucose POC Glucose 271 H 314 H 436 H Hemoglobin A1c Calcium Magnesium Ferritin AST ALT Alkaline Phosphatase Total Creatine Kinase CK-MB (CK-2) CK-MB (CK-2) Rel Index Troponin T Total Protein Albumin Triglycerides LDL Cholesterol Direct Urine WBC (Auto) Urine Creatinine 03/21/20 03/21/20 03/22/20 17:44 21:55 04:33 WBC RBC Hgb 10.0 L Hct 29.4 L MCV MCHC RDW Lymph % (Auto) [place] % (Auto) Lymph # [place] # Seg Neutrophils % Seg Neuts % (Manual) Lymphocytes % (Manual) Nucleated RBC % Seg Neutrophils # Seg Neutrophils # Man Lymphocytes # (Manual) Monocytes # (Manual) Eosinophils # (Manual) PT INR Heparin Anti-Xa Level ABG pH ABG pO2 ABG HCO3 ABG O2 Saturation ABG Base Excess ABG Hemoglobin Oxyhemoglobin Sodium Potassium Chloride Carbon Dioxide BUN Creatinine Glucose POC Glucose 362 H 329 H Hemoglobin A1c Calcium Magnesium Ferritin AST ALT Alkaline Phosphatase Total Creatine Kinase CK-MB (CK-2) CK-MB (CK-2) Rel Index Troponin T Total Protein Albumin Triglycerides LDL Cholesterol Direct Urine WBC (Auto) Urine Creatinine 03/22/20 03/22/20 03/22/20 08:57 14:12 19:57 WBC RBC Hgb Hct MCV MCHC RDW Lymph % (Auto) [place] % (Auto) Lymph # [place] # Seg Neutrophils % Seg Neuts % (Manual) Lymphocytes % (Manual) Nucleated RBC % Seg Neutrophils # Seg Neutrophils # Man Lymphocytes # (Manual) Monocytes # (Manual) Eosinophils # (Manual) PT INR Heparin Anti-Xa Level ABG pH ABG pO2 ABG HCO3 ABG O2 Saturation ABG Base Excess ABG Hemoglobin Oxyhemoglobin Sodium Potassium Chloride Carbon Dioxide BUN Creatinine Glucose POC Glucose 284 H 319 H 356 H Hemoglobin A1c Calcium Magnesium Ferritin AST ALT Alkaline Phosphatase Total Creatine Kinase CK-MB (CK-2) CK-MB (CK-2) Rel Index Troponin T Total Protein Albumin Triglycerides LDL Cholesterol Direct Urine WBC (Auto) Urine Creatinine 03/22/20 03/23/20 03/23/20 21:44 08:18 12:46 WBC RBC Hgb Hct MCV MCHC RDW Lymph % (Auto) [place] % (Auto) Lymph # [place] # Seg Neutrophils % Seg Neuts % (Manual) Lymphocytes % (Manual) Nucleated RBC % Seg Neutrophils # Seg Neutrophils # Man Lymphocytes # (Manual) Monocytes # (Manual) Eosinophils # (Manual) PT INR Heparin Anti-Xa Level ABG pH ABG pO2 ABG HCO3 ABG O2 Saturation ABG Base Excess ABG Hemoglobin Oxyhemoglobin Sodium Potassium Chloride Carbon Dioxide BUN Creatinine Glucose POC Glucose 336 H 215 H 262 H Hemoglobin A1c Calcium Magnesium Ferritin AST ALT Alkaline Phosphatase Total Creatine Kinase CK-MB (CK-2) CK-MB (CK-2) Rel Index Troponin T Total Protein Albumin Triglycerides LDL Cholesterol Direct Urine WBC (Auto) Urine Creatinine 03/23/20 03/23/20 03/24/20 15:56 22:05 02:35 WBC RBC Hgb 9.0 L Hct 25.8 L MCV MCHC RDW Lymph % (Auto) [place] % (Auto) Lymph # [place] # Seg Neutrophils % Seg Neuts % (Manual) Lymphocytes % (Manual) Nucleated RBC % Seg Neutrophils # Seg Neutrophils # Man Lymphocytes # (Manual) Monocytes # (Manual) Eosinophils # (Manual) PT INR Heparin Anti-Xa Level ABG pH ABG pO2 ABG HCO3 ABG O2 Saturation ABG Base Excess ABG Hemoglobin Oxyhemoglobin Sodium Potassium Chloride Carbon Dioxide BUN Creatinine Glucose POC Glucose 246 H 322 H Hemoglobin A1c Calcium Magnesium Ferritin AST ALT Alkaline Phosphatase Total Creatine Kinase CK-MB (CK-2) CK-MB (CK-2) Rel Index Troponin T Total Protein Albumin Triglycerides LDL Cholesterol Direct Urine WBC (Auto) Urine Creatinine 03/24/20 03/24/20 03/24/20 07:38 11:45 16:02 WBC RBC Hgb Hct MCV MCHC RDW Lymph % (Auto) [place] % (Auto) Lymph # [place] # Seg Neutrophils % Seg Neuts % (Manual) Lymphocytes % (Manual) Nucleated RBC % Seg Neutrophils # Seg Neutrophils # Man Lymphocytes # (Manual) Monocytes # (Manual) Eosinophils # (Manual) PT INR Heparin Anti-Xa Level ABG pH ABG pO2 ABG HCO3 ABG O2 Saturation ABG Base Excess ABG Hemoglobin Oxyhemoglobin Sodium Potassium Chloride Carbon Dioxide BUN Creatinine Glucose POC Glucose 289 H 257 H 150 H Hemoglobin A1c Calcium Magnesium Ferritin AST ALT Alkaline Phosphatase Total Creatine Kinase CK-MB (CK-2) CK-MB (CK-2) Rel Index Troponin T Total Protein Albumin Triglycerides LDL Cholesterol Direct Urine WBC (Auto) Urine Creatinine 03/24/20 03/25/20 03/25/20 21:24 04:06 07:39 WBC RBC Hgb Hct MCV MCHC RDW Lymph % (Auto) [place] % (Auto) Lymph # [place] # Seg Neutrophils % Seg Neuts % (Manual) Lymphocytes % (Manual) Nucleated RBC % Seg Neutrophils # Seg Neutrophils # Man Lymphocytes # (Manual) Monocytes # (Manual) Eosinophils # (Manual) PT INR Heparin Anti-Xa Level 0.10 L ABG pH ABG pO2 ABG HCO3 ABG O2 Saturation ABG Base Excess ABG Hemoglobin Oxyhemoglobin Sodium Potassium Chloride Carbon Dioxide BUN Creatinine Glucose POC Glucose 228 H 332 H Hemoglobin A1c Calcium Magnesium Ferritin AST ALT Alkaline Phosphatase Total Creatine Kinase CK-MB (CK-2) CK-MB (CK-2) Rel Index Troponin T Total Protein Albumin Triglycerides LDL Cholesterol Direct Urine WBC (Auto) Urine Creatinine 03/25/20 03/25/20 03/25/20 08:13 09:30 11:59 WBC 13.1 H RBC 2.82 L Hgb 8.5 L Hct 26.1 L MCV MCHC RDW Lymph % (Auto) [place] % (Auto) Lymph # [place] # Seg Neutrophils % Seg Neuts % (Manual) Lymphocytes % (Manual) Nucleated RBC % Seg Neutrophils # Seg Neutrophils # Man Lymphocytes # (Manual) Monocytes # (Manual) Eosinophils # (Manual) PT INR Heparin Anti-Xa Level ABG pH ABG pO2 ABG HCO3 ABG O2 Saturation ABG Base Excess ABG Hemoglobin Oxyhemoglobin Sodium 131 L Potassium 5.3 H Chloride Carbon Dioxide 20 L BUN 39 H Creatinine 1.4 H Glucose 313 H POC Glucose 273 H Hemoglobin A1c Calcium 8.1 L Magnesium Ferritin AST ALT Alkaline Phosphatase Total Creatine Kinase CK-MB (CK-2) CK-MB (CK-2) Rel Index Troponin T Total Protein Albumin Triglycerides LDL Cholesterol Direct Urine WBC (Auto) Urine Creatinine 03/25/20 03/25/20 03/25/20 13:54 15:58 18:21 WBC RBC Hgb Hct MCV MCHC RDW Lymph % (Auto) [place] % (Auto) Lymph # [place] # Seg Neutrophils % Seg Neuts % (Manual) Lymphocytes % (Manual) Nucleated RBC % Seg Neutrophils # Seg Neutrophils # Man Lymphocytes # (Manual) Monocytes # (Manual) Eosinophils # (Manual) PT INR Heparin Anti-Xa Level ABG pH ABG pO2 ABG HCO3 ABG O2 Saturation ABG Base Excess ABG Hemoglobin Oxyhemoglobin Sodium Potassium Chloride Carbon Dioxide BUN Creatinine Glucose POC Glucose 246 H 235 H 185 H Hemoglobin A1c Calcium Magnesium Ferritin AST ALT Alkaline Phosphatase Total Creatine Kinase CK-MB (CK-2) CK-MB (CK-2) Rel Index Troponin T Total Protein Albumin Triglycerides LDL Cholesterol Direct Urine WBC (Auto) Urine Creatinine 03/25/20 03/26/20 03/26/20 20:45 05:15 06:59 WBC 17.4 H 15.6 H RBC 3.05 L 3.05 L Hgb 9.1 L 9.2 L Hct 28.2 L 27.9 L MCV MCHC RDW Lymph % (Auto) 8.9 L 8.9 L [place] % (Auto) Lymph # [place] # 1.0 H Seg Neutrophils % 84.4 H 84.8 H Seg Neuts % (Manual) Lymphocytes % (Manual) Nucleated RBC % Seg Neutrophils # 14.7 H 13.2 H Seg Neutrophils # Man Lymphocytes # (Manual) Monocytes # (Manual) Eosinophils # (Manual) PT INR Heparin Anti-Xa Level ABG pH ABG pO2 ABG HCO3 ABG O2 Saturation ABG Base Excess ABG Hemoglobin Oxyhemoglobin Sodium Potassium Chloride Carbon Dioxide BUN Creatinine Glucose POC Glucose 178 H Hemoglobin A1c Calcium Magnesium Ferritin AST ALT Alkaline Phosphatase Total Creatine Kinase CK-MB (CK-2) CK-MB (CK-2) Rel Index Troponin T Total Protein Albumin Triglycerides LDL Cholesterol Direct Urine WBC (Auto) Urine Creatinine 03/26/20 03/26/20 03/26/20 06:59 07:43 11:56 WBC RBC Hgb Hct MCV MCHC RDW Lymph % (Auto) [place] % (Auto) Lymph # [place] # Seg Neutrophils % Seg Neuts % (Manual) Lymphocytes % (Manual) Nucleated RBC % Seg Neutrophils # Seg Neutrophils # Man Lymphocytes # (Manual) Monocytes # (Manual) Eosinophils # (Manual) PT INR Heparin Anti-Xa Level ABG pH ABG pO2 ABG HCO3 ABG O2 Saturation ABG Base Excess ABG Hemoglobin Oxyhemoglobin Sodium 131 L Potassium 5.8 H Chloride Carbon Dioxide 16 L BUN 42 H Creatinine 1.4 H Glucose 163 H POC Glucose 170 H 198 H Hemoglobin A1c Calcium 8.0 L Magnesium Ferritin AST ALT Alkaline Phosphatase Total Creatine Kinase CK-MB (CK-2) CK-MB (CK-2) Rel Index Troponin T Total Protein Albumin Triglycerides LDL Cholesterol Direct Urine WBC (Auto) Urine Creatinine 03/26/20 03/26/20 03/26/20 13:58 16:16 21:00 WBC RBC Hgb Hct MCV MCHC RDW Lymph % (Auto) [place] % (Auto) Lymph # [place] # Seg Neutrophils % Seg Neuts % (Manual) Lymphocytes % (Manual) Nucleated RBC % Seg Neutrophils # Seg Neutrophils # Man Lymphocytes # (Manual) Monocytes # (Manual) Eosinophils # (Manual) PT INR Heparin Anti-Xa Level ABG pH ABG pO2 ABG HCO3 ABG O2 Saturation ABG Base Excess ABG Hemoglobin Oxyhemoglobin Sodium 128 L Potassium 6.0 H Chloride Carbon Dioxide 15 L BUN 45 H Creatinine 1.4 H Glucose 190 H POC Glucose 184 H 192 H Hemoglobin A1c Calcium 8.2 L Magnesium Ferritin AST ALT Alkaline Phosphatase Total Creatine Kinase CK-MB (CK-2) CK-MB (CK-2) Rel Index Troponin T Total Protein Albumin Triglycerides LDL Cholesterol Direct Urine WBC (Auto) Urine Creatinine 03/27/20 03/27/20 03/27/20 08:32 11:51 14:39 WBC 22.9 H RBC 2.68 L Hgb 7.9 L Hct 24.7 L MCV MCHC RDW Lymph % (Auto) [place] % (Auto) Lymph # [place] # Seg Neutrophils % Seg Neuts % (Manual) Lymphocytes % (Manual) Nucleated RBC % Seg Neutrophils # Seg Neutrophils # Man Lymphocytes # (Manual) Monocytes # (Manual) Eosinophils # (Manual) PT INR Heparin Anti-Xa Level ABG pH ABG pO2 ABG HCO3 ABG O2 Saturation ABG Base Excess ABG Hemoglobin Oxyhemoglobin Sodium Potassium Chloride Carbon Dioxide BUN Creatinine Glucose POC Glucose 233 H 252 H Hemoglobin A1c Calcium Magnesium Ferritin AST ALT Alkaline Phosphatase Total Creatine Kinase CK-MB (CK-2) CK-MB (CK-2) Rel Index Troponin T Total Protein Albumin Triglycerides LDL Cholesterol Direct Urine WBC (Auto) Urine Creatinine 03/27/20 03/27/20 03/27/20 14:39 15:19 21:35 WBC RBC Hgb Hct MCV MCHC RDW Lymph % (Auto) [place] % (Auto) Lymph # [place] # Seg Neutrophils % Seg Neuts % (Manual) Lymphocytes % (Manual) Nucleated RBC % Seg Neutrophils # Seg Neutrophils # Man Lymphocytes # (Manual) Monocytes # (Manual) Eosinophils # (Manual) PT INR Heparin Anti-Xa Level ABG pH ABG pO2 ABG HCO3 ABG O2 Saturation ABG Base Excess ABG Hemoglobin Oxyhemoglobin Sodium 133 L Potassium 5.5 H Chloride Carbon Dioxide 16 L BUN 46 H Creatinine 1.4 H Glucose 225 H POC Glucose 239 H 202 H Hemoglobin A1c Calcium 8.2 L Magnesium Ferritin AST ALT Alkaline Phosphatase Total Creatine Kinase CK-MB (CK-2) CK-MB (CK-2) Rel Index Troponin T Total Protein Albumin Triglycerides LDL Cholesterol Direct Urine WBC (Auto) Urine Creatinine 03/28/20 03/28/20 03/28/20 07:39 07:39 08:36 WBC 22.4 H RBC 2.71 L Hgb 7.9 L Hct 24.5 L MCV MCHC RDW Lymph % (Auto) [place] % (Auto) Lymph # [place] # Seg Neutrophils % Seg Neuts % (Manual) 88.0 H Lymphocytes % (Manual) 5.0 L Nucleated RBC % Seg Neutrophils # Seg Neutrophils # Man 19.7 H Lymphocytes # (Manual) 1.1 L Monocytes # (Manual) 1.6 H Eosinophils # (Manual) PT INR Heparin Anti-Xa Level ABG pH ABG pO2 ABG HCO3 ABG O2 Saturation ABG Base Excess ABG Hemoglobin Oxyhemoglobin Sodium 134 L Potassium Chloride Carbon Dioxide 19 L BUN 47 H Creatinine Glucose 240 H POC Glucose 253 H Hemoglobin A1c Calcium 7.8 L Magnesium Ferritin AST ALT Alkaline Phosphatase Total Creatine Kinase CK-MB (CK-2) CK-MB (CK-2) Rel Index Troponin T Total Protein Albumin Triglycerides LDL Cholesterol Direct Urine WBC (Auto) Urine Creatinine 03/28/20 03/28/20 03/28/20 11:54 17:08 21:17 WBC RBC Hgb Hct MCV MCHC RDW Lymph % (Auto) [place] % (Auto) Lymph # [place] # Seg Neutrophils % Seg Neuts % (Manual) Lymphocytes % (Manual) Nucleated RBC % Seg Neutrophils # Seg Neutrophils # Man Lymphocytes # (Manual) Monocytes # (Manual) Eosinophils # (Manual) PT INR Heparin Anti-Xa Level ABG pH ABG pO2 ABG HCO3 ABG O2 Saturation ABG Base Excess ABG Hemoglobin Oxyhemoglobin Sodium Potassium Chloride Carbon Dioxide BUN Creatinine Glucose POC Glucose 306 H 178 H 186 H Hemoglobin A1c Calcium Magnesium Ferritin AST ALT Alkaline Phosphatase Total Creatine Kinase CK-MB (CK-2) CK-MB (CK-2) Rel Index Troponin T Total Protein Albumin Triglycerides LDL Cholesterol Direct Urine WBC (Auto) Urine Creatinine 03/29/20 03/29/20 03/29/20 08:32 12:04 14:19 WBC 21.5 H RBC 2.82 L Hgb 8.4 L Hct 26.1 L MCV MCHC RDW Lymph % (Auto) [place] % (Auto) Lymph # [place] # Seg Neutrophils % Seg Neuts % (Manual) 85.0 H Lymphocytes % (Manual) 11.0 L Nucleated RBC % 3.0 H Seg Neutrophils # Seg Neutrophils # Man 18.3 H Lymphocytes # (Manual) Monocytes # (Manual) Eosinophils # (Manual) 0.6 H PT INR Heparin Anti-Xa Level ABG pH ABG pO2 ABG HCO3 ABG O2 Saturation ABG Base Excess ABG Hemoglobin Oxyhemoglobin Sodium Potassium Chloride Carbon Dioxide BUN Creatinine Glucose POC Glucose 110 H 263 H Hemoglobin A1c Calcium Magnesium Ferritin AST ALT Alkaline Phosphatase Total Creatine Kinase CK-MB (CK-2) CK-MB (CK-2) Rel Index Troponin T Total Protein Albumin Triglycerides LDL Cholesterol Direct Urine WBC (Auto) Urine Creatinine 03/29/20 03/29/20 03/30/20 16:17 22:57 11:00 WBC RBC Hgb Hct MCV MCHC RDW Lymph % (Auto) [place] % (Auto) Lymph # [place] # Seg Neutrophils % Seg Neuts % (Manual) Lymphocytes % (Manual) Nucleated RBC % Seg Neutrophils # Seg Neutrophils # Man Lymphocytes # (Manual) Monocytes # (Manual) Eosinophils # (Manual) PT INR Heparin Anti-Xa Level ABG pH ABG pO2 ABG HCO3 ABG O2 Saturation ABG Base Excess ABG Hemoglobin Oxyhemoglobin Sodium Potassium Chloride Carbon Dioxide BUN Creatinine Glucose POC Glucose 109 H 194 H 129 H Hemoglobin A1c Calcium Magnesium Ferritin AST ALT Alkaline Phosphatase Total Creatine Kinase CK-MB (CK-2) CK-MB (CK-2) Rel Index Troponin T Total Protein Albumin Triglycerides LDL Cholesterol Direct Urine WBC (Auto) Urine Creatinine 03/30/20 03/30/20 03/31/20 15:16 21:54 04:27 WBC 15.8 H RBC 2.62 L Hgb 7.7 L Hct 24.1 L MCV MCHC RDW Lymph % (Auto) 9.4 L [place] % (Auto) Lymph # [place] # Seg Neutrophils % 84.4 H Seg Neuts % (Manual) Lymphocytes % (Manual) Nucleated RBC % Seg Neutrophils # 13.3 H Seg Neutrophils # Man Lymphocytes # (Manual) Monocytes # (Manual) Eosinophils # (Manual) PT INR Heparin Anti-Xa Level ABG pH ABG pO2 ABG HCO3 ABG O2 Saturation ABG Base Excess ABG Hemoglobin Oxyhemoglobin Sodium Potassium Chloride Carbon Dioxide BUN Creatinine Glucose POC Glucose 115 H 166 H Hemoglobin A1c Calcium Magnesium Ferritin AST ALT Alkaline Phosphatase Total Creatine Kinase CK-MB (CK-2) CK-MB (CK-2) Rel Index Troponin T Total Protein Albumin Triglycerides LDL Cholesterol Direct Urine WBC (Auto) Urine Creatinine 03/31/20 03/31/20 03/31/20 04:27 07:37 11:46 WBC RBC Hgb Hct MCV MCHC RDW Lymph % (Auto) [place] % (Auto) Lymph # [place] # Seg Neutrophils % Seg Neuts % (Manual) Lymphocytes % (Manual) Nucleated RBC % Seg Neutrophils # Seg Neutrophils # Man Lymphocytes # (Manual) Monocytes # (Manual) Eosinophils # (Manual) PT INR Heparin Anti-Xa Level ABG pH ABG pO2 ABG HCO3 ABG O2 Saturation ABG Base Excess ABG Hemoglobin Oxyhemoglobin Sodium 133 L Potassium Chloride 96.6 L Carbon Dioxide 18 L BUN 75 H Creatinine 2.5 H D Glucose 129 H POC Glucose 156 H 224 H Hemoglobin A1c Calcium 8.0 L Magnesium Ferritin AST ALT Alkaline Phosphatase Total Creatine Kinase CK-MB (CK-2) CK-MB (CK-2) Rel Index Troponin T Total Protein Albumin Triglycerides LDL Cholesterol Direct Urine WBC (Auto) Urine Creatinine 04/01/20 04/01/20 04/01/20 08:34 10:52 10:52 WBC 12.9 H RBC 2.75 L Hgb 8.2 L Hct 24.8 L MCV MCHC RDW Lymph % (Auto) 10.6 L [place] % (Auto) Lymph # [place] # Seg Neutrophils % 83.7 H Seg Neuts % (Manual) Lymphocytes % (Manual) Nucleated RBC % Seg Neutrophils # 10.8 H Seg Neutrophils # Man Lymphocytes # (Manual) Monocytes # (Manual) Eosinophils # (Manual) PT INR Heparin Anti-Xa Level ABG pH ABG pO2 ABG HCO3 ABG O2 Saturation ABG Base Excess ABG Hemoglobin Oxyhemoglobin Sodium 131 L Potassium Chloride 96.1 L Carbon Dioxide 17 L BUN 77 H Creatinine 2.3 H Glucose 205 H POC Glucose 110 H Hemoglobin A1c Calcium 7.9 L Magnesium Ferritin AST ALT Alkaline Phosphatase Total Creatine Kinase CK-MB (CK-2) CK-MB (CK-2) Rel Index Troponin T Total Protein Albumin Triglycerides LDL Cholesterol Direct Urine WBC (Auto) Urine Creatinine 04/01/20 04/01/20 04/01/20 12:15 17:22 20:47 WBC RBC Hgb Hct MCV MCHC RDW Lymph % (Auto) [place] % (Auto) Lymph # [place] # Seg Neutrophils % Seg Neuts % (Manual) Lymphocytes % (Manual) Nucleated RBC % Seg Neutrophils # Seg Neutrophils # Man Lymphocytes # (Manual) Monocytes # (Manual) Eosinophils # (Manual) PT INR Heparin Anti-Xa Level ABG pH ABG pO2 ABG HCO3 ABG O2 Saturation ABG Base Excess ABG Hemoglobin Oxyhemoglobin Sodium Potassium Chloride Carbon Dioxide BUN Creatinine Glucose POC Glucose 201 H 219 H 156 H Hemoglobin A1c Calcium Magnesium Ferritin AST ALT Alkaline Phosphatase Total Creatine Kinase CK-MB (CK-2) CK-MB (CK-2) Rel Index Troponin T Total Protein Albumin Triglycerides LDL Cholesterol Direct Urine WBC (Auto) Urine Creatinine 04/02/20 04/02/20 04/02/20 05:44 05:44 11:32 WBC 15.8 H RBC 2.81 L Hgb 8.2 L Hct 25.7 L MCV MCHC RDW Lymph % (Auto) [place] % (Auto) Lymph # [place] # 0.9 H Seg Neutrophils % 77.7 H Seg Neuts % (Manual) Lymphocytes % (Manual) Nucleated RBC % Seg Neutrophils # 12.3 H Seg Neutrophils # Man Lymphocytes # (Manual) Monocytes # (Manual) Eosinophils # (Manual) PT INR Heparin Anti-Xa Level ABG pH ABG pO2 ABG HCO3 ABG O2 Saturation ABG Base Excess ABG Hemoglobin Oxyhemoglobin Sodium 134 L Potassium Chloride Carbon Dioxide 19 L BUN 76 H Creatinine 2.0 H Glucose POC Glucose 116 H Hemoglobin A1c Calcium 8.0 L Magnesium Ferritin AST 291 H ALT 169 H Alkaline Phosphatase 256 H Total Creatine Kinase CK-MB (CK-2) CK-MB (CK-2) Rel Index Troponin T Total Protein 6.1 L Albumin 2.2 L Triglycerides LDL Cholesterol Direct Urine WBC (Auto) Urine Creatinine 04/02/20 04/02/20 04/03/20 16:56 22:03 08:13 WBC RBC Hgb Hct MCV MCHC RDW Lymph % (Auto) [place] % (Auto) Lymph # [place] # Seg Neutrophils % Seg Neuts % (Manual) Lymphocytes % (Manual) Nucleated RBC % Seg Neutrophils # Seg Neutrophils # Man Lymphocytes # (Manual) Monocytes # (Manual) Eosinophils # (Manual) PT INR Heparin Anti-Xa Level ABG pH ABG pO2 ABG HCO3 ABG O2 Saturation ABG Base Excess ABG Hemoglobin Oxyhemoglobin Sodium Potassium Chloride Carbon Dioxide BUN Creatinine Glucose POC Glucose 141 H 152 H 126 H Hemoglobin A1c Calcium Magnesium Ferritin AST ALT Alkaline Phosphatase Total Creatine Kinase CK-MB (CK-2) CK-MB (CK-2) Rel Index Troponin T Total Protein Albumin Triglycerides LDL Cholesterol Direct Urine WBC (Auto) Urine Creatinine 04/03/20 04/03/20 04/03/20 12:11 16:26 21:33 WBC RBC Hgb Hct MCV MCHC RDW Lymph % (Auto) [place] % (Auto) Lymph # [place] # Seg Neutrophils % Seg Neuts % (Manual) Lymphocytes % (Manual) Nucleated RBC % Seg Neutrophils # Seg Neutrophils # Man Lymphocytes # (Manual) Monocytes # (Manual) Eosinophils # (Manual) PT INR Heparin Anti-Xa Level ABG pH ABG pO2 ABG HCO3 ABG O2 Saturation ABG Base Excess ABG Hemoglobin Oxyhemoglobin Sodium Potassium Chloride Carbon Dioxide BUN Creatinine Glucose POC Glucose 139 H 164 H 147 H Hemoglobin A1c Calcium Magnesium Ferritin AST ALT Alkaline Phosphatase Total Creatine Kinase CK-MB (CK-2) CK-MB (CK-2) Rel Index Troponin T Total Protein Albumin Triglycerides LDL Cholesterol Direct Urine WBC (Auto) Urine Creatinine 04/04/20 04/04/20 04/04/20 04:29 04:29 11:29 WBC 12.3 H RBC 2.88 L Hgb 8.4 L Hct 26.1 L MCV MCHC RDW Lymph % (Auto) [place] % (Auto) Lymph # [place] # Seg Neutrophils % 75.4 H Seg Neuts % (Manual) Lymphocytes % (Manual) Nucleated RBC % Seg Neutrophils # 9.3 H Seg Neutrophils # Man Lymphocytes # (Manual) Monocytes # (Manual) Eosinophils # (Manual) PT INR Heparin Anti-Xa Level ABG pH ABG pO2 ABG HCO3 ABG O2 Saturation ABG Base Excess ABG Hemoglobin Oxyhemoglobin Sodium 136 L Potassium Chloride Carbon Dioxide 19 L BUN 71 H Creatinine 1.7 H Glucose POC Glucose 108 H Hemoglobin A1c Calcium 8.0 L Magnesium Ferritin AST 673 H ALT 252 H Alkaline Phosphatase 311 H Total Creatine Kinase CK-MB (CK-2) CK-MB (CK-2) Rel Index Troponin T Total Protein Albumin 2.2 L Triglycerides LDL Cholesterol Direct Urine WBC (Auto) Urine Creatinine 04/04/20 04/04/20 04/05/20 16:34 20:58 03:54 WBC 13.7 H RBC 3.03 L Hgb 8.7 L Hct 27.9 L MCV MCHC 31 L RDW 15.5 H Lymph % (Auto) [place] % (Auto) Lymph # [place] # Seg Neutrophils % 78.9 H Seg Neuts % (Manual) Lymphocytes % (Manual) Nucleated RBC % Seg Neutrophils # 10.8 H Seg Neutrophils # Man Lymphocytes # (Manual) Monocytes # (Manual) Eosinophils # (Manual) PT INR Heparin Anti-Xa Level ABG pH ABG pO2 ABG HCO3 ABG O2 Saturation ABG Base Excess ABG Hemoglobin Oxyhemoglobin Sodium Potassium Chloride Carbon Dioxide BUN Creatinine Glucose POC Glucose 151 H 131 H Hemoglobin A1c Calcium Magnesium Ferritin AST ALT Alkaline Phosphatase Total Creatine Kinase CK-MB (CK-2) CK-MB (CK-2) Rel Index Troponin T Total Protein Albumin Triglycerides LDL Cholesterol Direct Urine WBC (Auto) Urine Creatinine 04/05/20 04/05/20 04/05/20 03:54 15:58 15:58 WBC RBC Hgb Hct MCV MCHC RDW Lymph % (Auto) [place] % (Auto) Lymph # [place] # Seg Neutrophils % Seg Neuts % (Manual) Lymphocytes % (Manual) Nucleated RBC % Seg Neutrophils # Seg Neutrophils # Man Lymphocytes # (Manual) Monocytes # (Manual) Eosinophils # (Manual) PT INR Heparin Anti-Xa Level ABG pH ABG pO2 67.1 L ABG HCO3 26.1 H ABG O2 Saturation 93.4 L ABG Base Excess ABG Hemoglobin 9.0 L Oxyhemoglobin 91.6 L Sodium 136 L Potassium 5.5 H Chloride Carbon Dioxide 21 L BUN 79 H Creatinine 1.9 H Glucose 63 L POC Glucose 129 H Hemoglobin A1c Calcium 8.2 L Magnesium Ferritin AST 696 H ALT 262 H Alkaline Phosphatase 325 H Total Creatine Kinase CK-MB (CK-2) CK-MB (CK-2) Rel Index Troponin T Total Protein Albumin 2.3 L Triglycerides LDL Cholesterol Direct Urine WBC (Auto) Urine Creatinine 04/05/20 04/06/20 04/06/20 22:33 07:14 07:14 WBC RBC Hgb Hct MCV MCHC RDW Lymph % (Auto) [place] % (Auto) Lymph # [place] # Seg Neutrophils % Seg Neuts % (Manual) Lymphocytes % (Manual) Nucleated RBC % Seg Neutrophils # Seg Neutrophils # Man Lymphocytes # (Manual) Monocytes # (Manual) Eosinophils # (Manual) PT INR Heparin Anti-Xa Level ABG pH ABG pO2 ABG HCO3 ABG O2 Saturation ABG Base Excess ABG Hemoglobin Oxyhemoglobin Sodium Potassium 5.6 H Chloride Carbon Dioxide BUN 83 H Creatinine 1.9 H Glucose 202 H POC Glucose 253 H Hemoglobin A1c Calcium Magnesium Ferritin 444.2 H AST 469 H ALT 237 H Alkaline Phosphatase 332 H Total Creatine Kinase CK-MB (CK-2) CK-MB (CK-2) Rel Index Troponin T Total Protein Albumin 2.2 L Triglycerides LDL Cholesterol Direct Urine WBC (Auto) Urine Creatinine 04/06/20 04/06/20 04/06/20 08:23 12:00 13:56 WBC RBC Hgb Hct MCV MCHC RDW Lymph % (Auto) [place] % (Auto) Lymph # [place] # Seg Neutrophils % Seg Neuts % (Manual) Lymphocytes % (Manual) Nucleated RBC % Seg Neutrophils # Seg Neutrophils # Man Lymphocytes # (Manual) Monocytes # (Manual) Eosinophils # (Manual) PT 27.0 H INR 2.44 H Heparin Anti-Xa Level ABG pH ABG pO2 ABG HCO3 ABG O2 Saturation ABG Base Excess ABG Hemoglobin Oxyhemoglobin Sodium Potassium Chloride Carbon Dioxide BUN Creatinine Glucose POC Glucose 226 H 176 H Hemoglobin A1c Calcium Magnesium Ferritin AST ALT Alkaline Phosphatase Total Creatine Kinase CK-MB (CK-2) CK-MB (CK-2) Rel Index Troponin T Total Protein Albumin Triglycerides LDL Cholesterol Direct Urine WBC (Auto) Urine Creatinine 04/06/20 04/07/20 04/07/20 20:45 04:58 04:58 WBC RBC Hgb Hct MCV MCHC RDW Lymph % (Auto) [place] % (Auto) Lymph # [place] # Seg Neutrophils % Seg Neuts % (Manual) Lymphocytes % (Manual) Nucleated RBC % Seg Neutrophils # Seg Neutrophils # Man Lymphocytes # (Manual) Monocytes # (Manual) Eosinophils # (Manual) PT 30.9 H INR 2.89 H Heparin Anti-Xa Level ABG pH ABG pO2 ABG HCO3 ABG O2 Saturation ABG Base Excess ABG Hemoglobin Oxyhemoglobin Sodium Potassium 6.0 H Chloride Carbon Dioxide BUN 85 H Creatinine 2.1 H Glucose 177 H POC Glucose 139 H Hemoglobin A1c Calcium Magnesium Ferritin AST 351 H ALT 215 H Alkaline Phosphatase 332 H Total Creatine Kinase CK-MB (CK-2) CK-MB (CK-2) Rel Index Troponin T Total Protein Albumin 2.7 L Triglycerides LDL Cholesterol Direct Urine WBC (Auto) Urine Creatinine 04/07/20 04/07/20 04/08/20 07:53 11:51 04:44 WBC 11.7 H RBC 3.07 L Hgb 9.1 L Hct 28.9 L MCV MCHC RDW 16.8 H Lymph % (Auto) 12.4 L [place] % (Auto) Lymph # [place] # Seg Neutrophils % 83.3 H Seg Neuts % (Manual) Lymphocytes % (Manual) Nucleated RBC % Seg Neutrophils # 9.7 H Seg Neutrophils # Man Lymphocytes # (Manual) Monocytes # (Manual) Eosinophils # (Manual) PT INR Heparin Anti-Xa Level ABG pH ABG pO2 ABG HCO3 ABG O2 Saturation ABG Base Excess ABG Hemoglobin Oxyhemoglobin Sodium Potassium Chloride Carbon Dioxide BUN Creatinine Glucose POC Glucose 167 H 120 H Hemoglobin A1c Calcium Magnesium Ferritin AST ALT Alkaline Phosphatase Total Creatine Kinase CK-MB (CK-2) CK-MB (CK-2) Rel Index Troponin T Total Protein Albumin Triglycerides LDL Cholesterol Direct Urine WBC (Auto) Urine Creatinine 04/08/20 04/08/20 04/08/20 04:44 07:19 08:43 WBC RBC Hgb Hct MCV MCHC RDW Lymph % (Auto) [place] % (Auto) Lymph # [place] # Seg Neutrophils % Seg Neuts % (Manual) Lymphocytes % (Manual) Nucleated RBC % Seg Neutrophils # Seg Neutrophils # Man Lymphocytes # (Manual) Monocytes # (Manual) Eosinophils # (Manual) PT INR Heparin Anti-Xa Level ABG pH ABG pO2 ABG HCO3 ABG O2 Saturation ABG Base Excess ABG Hemoglobin Oxyhemoglobin Sodium Potassium 6.3 H* Chloride Carbon Dioxide 21 L BUN 89 H Creatinine 1.9 H Glucose 63 L POC Glucose 65 L 168 H Hemoglobin A1c Calcium Magnesium Ferritin AST 370 H ALT 211 H Alkaline Phosphatase 320 H Total Creatine Kinase CK-MB (CK-2) CK-MB (CK-2) Rel Index Troponin T Total Protein Albumin 2.6 L Triglycerides LDL Cholesterol Direct Urine WBC (Auto) Urine Creatinine 04/08/20 04/08/20 04/08/20 12:53 16:38 21:47 WBC RBC Hgb Hct MCV MCHC RDW Lymph % (Auto) [place] % (Auto) Lymph # [place] # Seg Neutrophils % Seg Neuts % (Manual) Lymphocytes % (Manual) Nucleated RBC % Seg Neutrophils # Seg Neutrophils # Man Lymphocytes # (Manual) Monocytes # (Manual) Eosinophils # (Manual) PT INR Heparin Anti-Xa Level ABG pH ABG pO2 ABG HCO3 ABG O2 Saturation ABG Base Excess ABG Hemoglobin Oxyhemoglobin Sodium Potassium 6.0 H Chloride Carbon Dioxide BUN 90 H Creatinine 2.1 H Glucose 124 H POC Glucose 129 H 118 H Hemoglobin A1c Calcium Magnesium Ferritin AST ALT Alkaline Phosphatase Total Creatine Kinase CK-MB (CK-2) CK-MB (CK-2) Rel Index Troponin T Total Protein Albumin Triglycerides LDL Cholesterol Direct Urine WBC (Auto) Urine Creatinine 04/09/20 04/09/20 04/09/20 03:45 08:04 19:10 WBC RBC Hgb Hct MCV MCHC RDW Lymph % (Auto) [place] % (Auto) Lymph # [place] # Seg Neutrophils % Seg Neuts % (Manual) Lymphocytes % (Manual) Nucleated RBC % Seg Neutrophils # Seg Neutrophils # Man Lymphocytes # (Manual) Monocytes # (Manual) Eosinophils # (Manual) PT INR Heparin Anti-Xa Level ABG pH 7.304 L ABG pO2 72.2 L ABG HCO3 ABG O2 Saturation 93.7 L ABG Base Excess -3.3 L ABG Hemoglobin 8.9 L Oxyhemoglobin 91.8 L Sodium Potassium 6.6 H* 6.5 H* Chloride Carbon Dioxide 21 L BUN 99 H 100 H Creatinine 2.2 H 2.3 H Glucose POC Glucose Hemoglobin A1c Calcium 8.2 L Magnesium Ferritin AST ALT Alkaline Phosphatase Total Creatine Kinase CK-MB (CK-2) CK-MB (CK-2) Rel Index Troponin T Total Protein Albumin Triglycerides LDL Cholesterol Direct Urine WBC (Auto) Urine Creatinine 04/10/20 04/10/20 04/10/20 05:48 05:48 08:53 WBC RBC 3.01 L Hgb 8.9 L Hct 28.4 L MCV 95 H MCHC 31 L RDW 17.6 H Lymph % (Auto) 11.4 L [place] % (Auto) Lymph # 1.1 L [place] # Seg Neutrophils % 81.1 H Seg Neuts % (Manual) Lymphocytes % (Manual) Nucleated RBC % Seg Neutrophils # 8.1 H Seg Neutrophils # Man Lymphocytes # (Manual) Monocytes # (Manual) Eosinophils # (Manual) PT INR Heparin Anti-Xa Level ABG pH ABG pO2 ABG HCO3 ABG O2 Saturation ABG Base Excess ABG Hemoglobin Oxyhemoglobin Sodium Potassium 5.2 H Chloride Carbon Dioxide BUN 104 H Creatinine 2.2 H Glucose 129 H POC Glucose 110 H Hemoglobin A1c Calcium Magnesium 2.80 H Ferritin AST 502 H ALT 249 H Alkaline Phosphatase 323 H Total Creatine Kinase CK-MB (CK-2) CK-MB (CK-2) Rel Index Troponin T Total Protein Albumin 2.5 L Triglycerides LDL Cholesterol Direct Urine WBC (Auto) Urine Creatinine 04/10/20 04/10/20 04/10/20 11:42 16:05 21:35 WBC RBC Hgb Hct MCV MCHC RDW Lymph % (Auto) [place] % (Auto) Lymph # [place] # Seg Neutrophils % Seg Neuts % (Manual) Lymphocytes % (Manual) Nucleated RBC % Seg Neutrophils # Seg Neutrophils # Man Lymphocytes # (Manual) Monocytes # (Manual) Eosinophils # (Manual) PT INR Heparin Anti-Xa Level ABG pH ABG pO2 ABG HCO3 ABG O2 Saturation ABG Base Excess ABG Hemoglobin Oxyhemoglobin Sodium Potassium Chloride Carbon Dioxide BUN Creatinine Glucose POC Glucose 135 H 137 H 151 H Hemoglobin A1c Calcium Magnesium Ferritin AST ALT Alkaline Phosphatase Total Creatine Kinase CK-MB (CK-2) CK-MB (CK-2) Rel Index Troponin T Total Protein Albumin Triglycerides LDL Cholesterol Direct Urine WBC (Auto) Urine Creatinine 04/11/20 04/11/20 04/11/20 06:26 06:26 06:26 WBC RBC 2.89 L Hgb 8.6 L Hct 27.4 L MCV 95 H MCHC 31 L RDW 17.5 H Lymph % (Auto) 9.9 L [place] % (Auto) Lymph # 1.0 L [place] # Seg Neutrophils % 85.7 H Seg Neuts % (Manual) Lymphocytes % (Manual) Nucleated RBC % Seg Neutrophils # 8.8 H Seg Neutrophils # Man Lymphocytes # (Manual) Monocytes # (Manual) Eosinophils # (Manual) PT 24.0 H INR 2.10 H Heparin Anti-Xa Level ABG pH ABG pO2 ABG HCO3 ABG O2 Saturation ABG Base Excess ABG Hemoglobin Oxyhemoglobin Sodium 146 H Potassium 5.3 H Chloride 108.2 H Carbon Dioxide BUN 109 H Creatinine 2.1 H Glucose 160 H POC Glucose Hemoglobin A1c Calcium Magnesium Ferritin AST 298 H ALT 207 H Alkaline Phosphatase 274 H Total Creatine Kinase CK-MB (CK-2) CK-MB (CK-2) Rel Index Troponin T Total Protein Albumin 2.5 L Triglycerides LDL Cholesterol Direct Urine WBC (Auto) Urine Creatinine 04/11/20 04/11/20 04/11/20 07:57 11:33 16:07 WBC RBC Hgb Hct MCV MCHC RDW Lymph % (Auto) [place] % (Auto) Lymph # [place] # Seg Neutrophils % Seg Neuts % (Manual) Lymphocytes % (Manual) Nucleated RBC % Seg Neutrophils # Seg Neutrophils # Man Lymphocytes # (Manual) Monocytes # (Manual) Eosinophils # (Manual) PT INR Heparin Anti-Xa Level ABG pH ABG pO2 ABG HCO3 ABG O2 Saturation ABG Base Excess ABG Hemoglobin Oxyhemoglobin Sodium Potassium Chloride Carbon Dioxide BUN Creatinine Glucose POC Glucose 170 H 167 H 140 H Hemoglobin A1c Calcium Magnesium Ferritin AST ALT Alkaline Phosphatase Total Creatine Kinase CK-MB (CK-2) CK-MB (CK-2) Rel Index Troponin T Total Protein Albumin Triglycerides LDL Cholesterol Direct Urine WBC (Auto) Urine Creatinine 04/11/20 04/11/20 04/11/20 16:30 16:30 16:50 WBC RBC Hgb Hct MCV MCHC RDW Lymph % (Auto) [place] % (Auto) Lymph # [place] # Seg Neutrophils % Seg Neuts % (Manual) Lymphocytes % (Manual) Nucleated RBC % Seg Neutrophils # Seg Neutrophils # Man Lymphocytes # (Manual) Monocytes # (Manual) Eosinophils # (Manual) PT INR Heparin Anti-Xa Level ABG pH 7.325 L ABG pO2 304.4 H ABG HCO3 ABG O2 Saturation 99.5 H ABG Base Excess -4.4 L ABG Hemoglobin 10.9 L Oxyhemoglobin Sodium Potassium Chloride Carbon Dioxide BUN Creatinine Glucose POC Glucose Hemoglobin A1c Calcium Magnesium Ferritin AST ALT Alkaline Phosphatase Total Creatine Kinase CK-MB (CK-2) CK-MB (CK-2) Rel Index Troponin T Total Protein Albumin Triglycerides LDL Cholesterol Direct Urine WBC (Auto) 16.0 H Urine Creatinine 60.0 H
[2020-04-11 18:30] LABS: Hematocrit 26.1 % (35.5-45.6); Hemoglobin 7.9 gm/dl (11.8-15.2); Mean Corpuscular HGB Conc 30 % (32-34); Mean Corpuscular Volume 96 fl (84-94); Platelet Count 178 K/mm3 (140-440); Red Blood Count 2.71 M/mm3 (3.65-5.03); Red Cell Distribution Width 18.3 % (13.2-15.2)
[2020-04-11 18:53] LABS: Creatine Kinase MB 3.5 ng/mL (0.0-4.0)
[2020-04-11 18:54] LABS: Albumin 2.1 g/dL (3.9-5); Calcium 8.5 mg/dL (8.4-10.2)
[2020-04-11 19:11] LABS: Basophils % (Manual) 0 % (0.0-1.8); Eosinophils % (Manual) 0 % (0.0-4.3); RBC Morphology Normal; Total Cells Counted 100
[2020-04-11 19:22] LABS: Chol/HDL Ratio 4.89 %
[2020-04-11] MEDS ORDERED: CALCIUM CHLORIDE 1,000 MG in SODIUM CHLORIDE 0.9% 100 ML IV ONE (20:01)
[2020-04-11] MEDS ORDERED: DEXTROSE 50% IN WATER (25GM) 50 ML SYRINGE IV ONE (20:02)
[2020-04-11] MEDS ORDERED: INSULIN REGULAR, HUMAN 100 UNIT/ML 3ML VIAL IV ONE (20:03)
[2020-04-11] MEDS ORDERED: MINERAL OIL/PETROLATUM, WHITE OPHTH OINT 3.5 GM OU PRN (20:22)
[2020-04-11] MEDS ORDERED: fentaNYL 100 MCG/2 ML INJ IV PRN (20:22)
[2020-04-11] MEDS ORDERED: LIP THERAPY VASELINE TP PRN (20:22)
[2020-04-11] MEDS ORDERED: fentaNYL DRIP Premix 2,000 MCG/100 ML BAG IV SCH (21:00)
--- NOTE | 2020-04-11 21:33 | Event Note ---
Date: 04/11/20 Events noted. D/w RN. Advised to call me with lab results (scheduled for [id number]).
[2020-04-12] MEDS: INSULIN LISPRO 100 UNIT/ML VIAL 3 mL SUB-Q SCH ×4 (01:55→18:05)
[2020-04-12] MEDS: SODIUM CHLORIDE 0.9% 1000 ML 1,000 ML IV SCH (01:58)
[2020-04-12] MEDS ORDERED: INSULIN REGULAR, HUMAN 100 UNIT/ML 3ML VIAL IV ONE (03:45)
[2020-04-12] MEDS ORDERED: SODIUM BICARB 8.4% 50 MEQ/50 ML SYRINGE IV ONE (03:48)
[2020-04-12] MEDS ORDERED: CALCIUM CHLORIDE 1,000 MG in SODIUM CHLORIDE 0.9% 100 ML IV ONE (03:48)
[2020-04-12] MEDS ORDERED: DEXTROSE 50% IN WATER (25GM) 50 ML SYRINGE IV ONE (03:49)
[2020-04-12] MEDS ORDERED: SODIUM POLYSTYRENE 15 GM/60 ML ORAL LIQD PO ONE (03:50)
--- NOTE | 2020-04-12 05:27 | XRay Report ---
CHEST 1 VIEW, 04/12/2020 3:42 AM CLINICAL INFORMATION/INDICATION: Respiratory failure COMPARISON: Chest radiograph, 04/11/2020 at 3:43 PM FINDINGS: SUPPORT DEVICES: The Dobbhoff tube has been advanced now with tip overlying the expected position of the mid stomach. The endotracheal tube remains in stable position. HEART: There is stable enlargement of the cardiac silhouette. LUNGS/PLEURA: Bilateral interstitial edema is again noted in significantly changed. No pneumothorax i s visualized. ADDITIONAL FINDINGS: No additional acute findings. IMPRESSION: 1. Stable interstitial edema. 2. Stable enlargement of the cardiac silhouette. Signer Name: Ivette Montalvo MD Signed: 04/12/2020 5:22 AM Workstation Name: [id number]
[2020-04-12 05:48] LABS: ABG Base Excess 0.8 mmol/L (-2.0-3.0); ABG HCO3 24.8 mmol/L (20.0-26.0); ABG Methemoglobin 0.5 % (0.0-1.5); ABG Oxygen Saturation 97.1 % (95.0-99.0); ABG PCO2 36.4 mm Hg; ABG PH 7.451 pH Units (7.350-7.450); ABG PO2 84.3 mm Hg (80.0-90.0)
[2020-04-12] MEDS: FUROSEMIDE 40 MG/4 ML INJ IV SCH ×2 (06:41→18:05)
[2020-04-12 07:51] LABS: INR 1.99 (0.87-1.13)
[2020-04-12 07:54] LABS: Hematocrit 28.1 % (35.5-45.6); Hemoglobin 8.7 gm/dl (11.8-15.2); Lymphocytes % (Auto) 7.1 % (13.4-35.0); Mean Corpuscular HGB Conc 31 % (32-34); Mean Corpuscular Volume 95 fl (84-94); Platelet Count 172 K/mm3 (140-440); Red Blood Count 2.96 M/mm3 (3.65-5.03); Red Cell Distribution Width 17.7 % (13.2-15.2)
[2020-04-12 07:55] LABS: Basophils # (Auto) 0.1 K/mm3 (0.0-0.1); Basophils % (Auto) 0.5 % (0.0-1.8); Eosinophils % (Auto) 0.1 % (0.0-4.3); Lymphocytes # (Auto) 0.9 K/mm3 (1.2-5.4); Monocytes # (Auto) 0.8 K/mm3 (0.0-0.8); Monocytes % (Auto) 6.5 % (0.0-7.3)
[2020-04-12 08:01] LABS: Albumin 2.4 g/dL (3.9-5); Calcium 9.2 mg/dL (8.4-10.2)
[2020-04-12] MEDS: BUDESONIDE 0.5 MG/2 ML NEBU IH SCH ×2 (08:02→20:50)
[2020-04-12] MEDS: ARFORMOTEROL 15 MCG/2 ML NEBU IH SCH ×2 (08:02→20:50)
[2020-04-12] MEDS ORDERED: AMIODARONE 150 MG in DEXTROSE 5% IN WATER 97 ML IV ONE (08:45)
--- NOTE | 2020-04-12 08:55 | Progress Note ---
Assessment and Plan Assessment and plan: --Ventricular tachycardia; Current Visit: Yes Status: Acute Amiodarone bolus, followed by amiodarone drip for 6 hours Per cardiology. Cardiology consulted Poor prognosis --Cardiac arrest; status post CPR per ACLS Current Visit: Yes Status: Acute On mechanical ventilation, poor prognosis Full CODE STATUS --Acute systolic CHF; EF 30-35%% Current Visit: Yes Status: Acute Beta-blockers, BIJAN inhibitor, diuretics And put output monitoring --Acute hypoxic respiratory failure; Current Visit: Yes Status: Acute requiring BiPAP, oxygen titrate O2 sats to more than 90% Nebulizers, intubate if no improvement Supportive care, pulmonary following --Acute CVA/ left parietal stroke Current Visit: Yes Status: Acute Neurology following, poor prognosis Discussed extensively with the son --Transaminitis/Acute liver failure Current Visit: Yes Status: Acute Secondary to severe sepsis LFTs trending down, GI following Abdominal ultrasound, fatty liver, thickening of gallbladder, --Coagulopathy ; secondary to acute liver failure Current Visit: Yes Status: Acute INR between 2 and 3 ,patient is on Eliquis, Plavix, for peripheral arterial disease, Will hold Eliquis --Sepsis/infected BKA stump/possible pneumonia Current Visit: Yes Status: Acute Wound care and IV antibiotics Vanco cefepime ID following --acute metabolic encephalopathy/worsening lethargy Current Visit: Yes Status: Acute Multifactorial, sepsis, congestive heart failure, electrolyte abnormalities Patient was unresponsive on 04/08/2020, rapid response was called, CT head: without contrast; late subacute infarction in the posterior cerebral artery or posterior division middle cerebral artery distribution involving the lateral aspect of the left cerebral hemisphere in the parietal occipital junction region Remote bilateral cerebellar infarctions in PICA distribution No acute intracranial abnormalities identified patient is severely lethargic noncommunicative Neurology consult requested. --Hyperkalemia; Current Visit: Yes Status: Acute Slightly improved, follow electrolytes --acute left lower extremity ischemia s/p BKA Current Visit: Yes Status: Acute 03/19/2020 status post endovascular revascularization 03/19/2020 s/p left lower extremity 4 compartment fasciotomy Management per vascular Left BKA on 03/25/2020 --Non-ST elevation [place] : Current Visit: Yes Status: Acute Patient has history of CABG ,no chest pain. cardiology feels non-STEMI 2 Medical management --Type II diabetes mellitus Current Visit: Yes Status: Acute Accu-Chek sliding scale coverage ADA diet Long-acting insulin as needed, HbA1c 11 --Nicotine dependence Current Visit: Yes Status: Acute Smoking cessation nicotine patch as needed --Anemia; Current Visit: Yes Status: Acute Gradual drop in H&H, closely monitor and transfuse as needed --Hypotension; Current Visit: Yes Status: Acute Levophed per protocol as needed --DVT prophylaxis Current Visit: Yes Status: Acute Coagulopathy/SCD -- Full code status Current Visit: Yes Status: Acute Discharge planning issues Recommend hospice/palliative care Multiorgan involvement, with very poor prognosis I discussed every day , sometimes 2times a day with patient's son Mr. Micah Weiss [phone] of patient's critical condition Multiorgan organ involvement, very poor prognosis, continuous deterioration clinically, I also discussed with him tests and imaging studies reports, consultants recommendations I answered all his questions, I even discussed about patient's advanced directives. The son reports that he would discuss with other family members and will get back to us. Informed patient's nurse of the above conversation, full code status at this time The high probability of a clinically significant, sudden or life threatening deterioration of the [Cardiac , neuro , renal , endocrine , GI , metabolic and respiratory] system(s) required my full and direct attention, intervention and personal management.The aggregate critical care time was [50] minutes.This time is in addition to time spent performing reported procedures but includes the following: [x] Data Review and interpretation [x] Patient assessment and monitoring of vital signs [x] Documentation [x] Medication orders and management We will closely monitor the patient and adjust the management as needed Plan of care reviewed with the patient's nurse 04/05; patient unable to list flat HIDA scan, test canceled, follow GI and surgery evaluation 04/07 patient has more drainage from the left BKA and patient is lethargic 04/08 --Hypoglycemia and Hypokalemia ,Possible sepsis 04/09; severe hyperkalemia, treated with cocktail, follow potassium levels al tered level of consciousness CT head without contrast, acute CVA, discussed with neurology, too unstable for MRI, discussed with patient's son 04/10; patient remains lethargic, confused, restraint for safety, Dobbhoff placement, for diet and medications, closely monitor 04/11: Clinically no change patient is lethargic confused agitated and restrained for safety, acute CVA Neuro work-up in progress 04/11; patient had cardiac arrest in radiology department via having MRI, intubated in ICU Poor prognosis, discussed with son Abhishek Obrien, requested full CODE STATUS 04/12; patient is in ventricular tachycardia, started amiodarone bolus followed by amiodarone drip, cardiology consulted I discussed again with son Abhishek Obrien this morning, updated patient's condition, VT, poor prognosis. He would discuss with the family CODE STATUS History Interval history: I have seen and examined the patient at the bedside this morning Patient's chart, overnight events, medications, tests reviewed Patient is in V. tach intermittent sometimes sustained Discussed with ditch inspector, recommend amiodarone IV bolus followed by drip. Patient is critically ill, unresponsive Intubated on ventilatory support Hypotensive, Vital signs reviewed Hospitalist Physical - Constitutional Vitals: Temp Pulse Resp BP Pulse Ox 98.3 F 78 25 H 106/53 99 04/12/20 03:33 04/12/20 08:02 04/12/20 08:02 04/12/20 08:02 04/12/20 08:02 General appearance: Present: no acute distress, well-nourished, obese (Morbidly), other (Unresponsive) - EENT Eyes: Present: PERRL (No pupillary or corneal reflex) - Neck Neck: Present: supple - Respiratory Respiratory effort: normal Respiratory: bilateral: diminished, rhonchi, negative: rales, wheezing - Cardiovascular Rhythm: irregularly irregular Heart Sounds: Present: S1 & S2 - Extremities Extremities: abnormal (Left BKA) Extremity abnormal: edema - Abdominal General gastrointestinal: soft, non-tender, non-distended - Integumentary Integumentary: Present: clear, warm - Psychiatric Psychiatric: other (Unresponsive) - Neurologic Neurologic: other (Unresponsive) HEART Score - HEART Score Troponin: Troponin T 3.950 ng/mL (0.00-0.029) H* 04/11/20 18:17 Results - Labs CBC & Chem 7: 04/12/20 07:22 04/12/20 07:22 Labs: Laboratory Last Values WBC 12.1 K/mm3 (4.5-11.0) H 04/12/20 07:22 RBC 2.96 M/mm3 (3.65-5.03) L 04/12/20 07:22 Hgb 8.7 gm/dl (11.8-15.2) L 04/12/20 07:22 Hct 28.1 % (35.5-45.6) L 04/12/20 07:22 MCV 95 fl (84-94) H 04/12/20 07:22 MCH 29 pg (28-32) 04/12/20 07: MCHC 31 % (32-34) L 04/12/20 07:22 RDW 17.7 % (13.2-15.2) H 04/12/20 07:22 Plt Count 172 K/mm3 (140-440) 04/12/20 07:22 Lymph % (Auto) 7.1 % (13.4-35.0) L 04/12/20 07: Metcalfe % (Auto) 6.5 % (0.0-7.3) 04/12/20 07: Eos % (Auto) 0.1 % (0.0-4.3) 04/12/20 07: Baso % (Auto) 0.5 % (0.0-1.8) 04/12/20 07:22 Lymph # 0.9 K/mm3 (1.2-5.4) L 04/12/20 07:22 Metcalfe # 0.8 K/mm3 (0.0-0.8) 04/12/20 07:22 Eos # 0.0 K/mm3 (0.0-0.4) 04/12/20 07: Baso # 0.1 K/mm3 (0.0-0.1) 04/12/20 07:22 Add Manual Diff Complete 04/11/20 18:17 Total Counted 100 04/11/20 18:17 Seg Neutrophils % 85.8 % (40.0-70.0) H 04/12/20 07:22 Seg Neuts % (Manual) 89.0 % (40.0-70.0) H 04/11/20 18:17 Band Neutrophils % 0 % 04/11/20 18:17 Lymphocytes % (Manual) 7.0 % (13.4-35.0) L 04/11/20 18:17 Reactive Lymphs % (Man) 0 % 04/11/20 18:17 Monocytes % (Manual) 4.0 % (0.0-7.3) 04/11/20 18:17 Eosinophils % (Manual) 0 % (0.0-4.3) 04/11/20 18:17 Basophils % (Manual) 0 % (0.0-1.8) 04/11/20 18:17 Metamyelocytes % 0 % 04/11/20 18:17 Myelocytes % 0 % 04/11/20 18:17 Promyelocytes % 0 % 04/11/20 18:17 Blast Cells % 0 % 04/11/20 18:17 Nucleated RBC % Not Reportable 04/11/20 18:17 Seg Neutrophils # 10.4 K/mm3 (1.8-7.7) H 04/12/20 07:22 Seg Neutrophils # Man 8.8 K/mm3 (1.8-7.7) H 04/11/20 18:17 Band Neutrophils # 0.0 K/mm3 04/11/20 18:17 Lymphocytes # (Manual) 0.7 K/mm3 (1.2-5.4) L 04/11/20 18:17 Abs React Lymphs (Man) 0.0 K/mm3 04/11/20 18:17 Monocytes # (Manual) 0.4 K/mm3 (0.0-0.8) 04/11/20 18:17 Eosinophils # (Manual) 0.0 K/mm3 (0.0-0.4) 04/11/20 18:17 Basophils # (Manual) 0.0 K/mm3 (0.0-0.1) 04/11/20 18:17 Metamyelocytes # 0.0 K/mm3 04/11/20 18:17 Myelocytes # 0.0 K/mm3 04/11/20 18:17 Promyelocytes # 0.0 K/mm3 04/11/20 18:17 Blast Cells # 0.0 K/mm3 04/11/20 18:17 WBC Morphology Not Reportable 04/11/20 18:17 Hypersegmented Neuts Not Reportable 04/11/20 18:17 Hyposegmented Neuts Not Reportable 04/11/20 18:17 Hypogranular Neuts Not Reportable 04/11/20 18:17 Smudge Cells Not Reportable 04/11/20 18:17 Toxic Granulation Not Reportable 04/11/20 18:17 Toxic Vacuolation Not Reportable 04/11/20 18:17 Dohle Bodies Not Reportable 04/11/20 18:17 Pelger-Huet Anomaly Not Reportable 04/11/20 18:17 Ananya Rods Not Reportable 04/11/20 18:17 Platelet Estimate Not Reportable 04/11/20 18:17 Clumped Platelets Not Reportable 04/11/20 18:17 Plt Clumps, EDTA Not Reportable 04/11/20 18:17 Large Platelets Not Reportable 04/11/20 18:17 Giant Platelets Not Reportable 04/11/20 18:17 Platelet Satelliting Not Reportable 04/11/20 18:17 Plt Morphology Comment Not Reportable 04/11/20 18:17 RBC Morphology Normal 04/11/20 18:17 Dimorphic RBCs Not Reportable 04/11/20 18:17 Polychromasia Not Reportable 04/11/20 18:17 Hypochromasia Not Reportable 04/11/20 18:17 Poikilocytosis Not Reportable 04/11/20 18:17 Anisocytosis Not Reportable 04/11/20 18:17 Microcytosis Not Reportable 04/11/20 18:17 Macrocytosis Not Reportable 04/11/20 18:17 Spherocytes Not Reportable 04/11/20 18:17 Pappenheimer Bodies Not Reportable 04/11/20 18:17 Sickle Cells Not Reportable 04/11/20 18:17 Target Cells Not Reportable 04/11/20 18:17 Tear Drop Cells Not Reportable 04/11/20 18:17 Ovalocytes Not Reportable 04/11/20 18:17 Helmet Cells Not Reportable 04/11/20 18:17 Light-[place] Bodies Not Reportable 04/11/20 18:17 Gordon Rings Not Reportable 04/11/20 18:17 Lincoln Cells Not Reportable 04/11/20 18:17 Bite Cells Not Reportable 04/11/20 18:17 Crenated Cell Not Reportable 04/11/20 18:17 Elliptocytes Not Reportable 04/11/20 18:17 Acanthocytes (Spur) Not Reportable 04/11/20 18:17 Rouleaux Not Reportable 04/11/20 18:17 Hemoglobin C Crystals Not Reportable 04/11/20 18:17 Schistocytes Not Reportable 04/11/20 18:17 Malaria parasites Not Reportable 04/11/20 18:17 Steven Bodies Not Reportable 04/11/20 18:17 Hem Pathologist Commnt No 04/11/20 18:17 PT 22.9 Sec. (12.2-14.9) H 04/12/20 07:22 INR 1.99 (0.87-1.13) H 04/12/20 07:22 APTT 27.7 Sec. (24.2-36.6) 03/18/20 18:28 Heparin Anti-Xa Level 0.10 U.I./ml (0.3-0.7) L 03/25/20 04:06 ABG pH 7.451 pH Units (7.350-7.450) H 04/12/20 04:45 ABG pCO2 36.4 mm Hg 04/12/20 04:45 ABG pO2 84.3 mm Hg (80.0-90.0) 04/12/20 04:45 ABG HCO3 24.8 mmol/L (20.0-26.0) 04/12/20 04:45 ABG O2 Saturation 97.1 % (95.0-99.0) 04/12/20 04:45 ABG O2 Content 8.5 (0.0-44) 04/12/20 04:45 ABG Base Excess 0.8 mmol/L (-2.0-3.0) 04/12/20 04:45 ABG Hemoglobin 6.2 gm/dl (14.0-18.0) L 04/12/20 04:45 ABG Carboxyhemoglobin 1.6 % (0.0-5.0) 04/12/20 04:45 ABG Methemoglobin 0.5 % (0.0-1.5) 04/12/20 04:45 Oxyhemoglobin 95.1 % (95.0-99.0) 04/12/20 04:45 FiO2 25 % 04/12/20 04:45 Sodium 147 mmol/L (137-145) H 04/12/20 07:22 Potassium 5.2 mmol/L (3.6-5.0) H 04/12/20 07:22 Chloride 109.8 mmol/L (98-107) H 04/12/20 07:22 Carbon Dioxide 20 mmol/L (22-30) L 04/12/20 07:22 Anion Gap 22 mmol/L 04/12/20 07:22 BUN 120 mg/dL (9-20) H 04/12/20 07:22 Creatinine 2.8 mg/dL (0.8-1.3) H 04/12/20 07:22 Estimated GFR 24 ml/min 04/12/20 07:22 BUN/Creatinine Ratio 43 % 04/12/20 07:22 Glucose 158 mg/dL (75-100) H 04/12/20 07:22 POC Glucose 248 (70-105) H 04/11/20 21:21 Hemoglobin A1c 11.0 % (4-6) H 03/18/20 22:21 Calcium 9.2 mg/dL (8.4-10.2) 04/12/20 07:22 Phosphorus 7.40 mg/dL (2.5-4.5) H 04/11/20 18:17 Magnesium 3.00 mg/dL (1.7-2.3) H 04/12/20 07:22 Ferritin 444.2 ng/mL (30.0-300.0) H 04/06/20 07:14 Total Bilirubin 1.00 mg/dL (0.1-1.2) 04/12/20 07:22 AST 195 units/L (5-40) H 04/12/20 07:22 ALT 162 units/L (7-56) H 04/12/20 07:22 Alkaline Phosphatase 244 units/L (35-129) H 04/12/20 07:22 Total Creatine Kinase 351 units/L (55-170) H 04/11/20 18:17 CK-MB (CK-2) 3.5 ng/mL (0.0-4.0) 04/11/20 18:17 CK-MB (CK-2) Rel Index 0.9 (0-4) 04/11/20 18:17 Troponin T 3.950 ng/mL (0.00-0.029) H* 04/11/20 18:17 Total Protein 5.9 g/dL (6.3-8.2) L 04/12/20 07:22 Albumin 2.4 g/dL (3.9-5) L 04/12/20 07:22 Albumin/Globulin Ratio 0.7 % 04/12/20 07:22 Triglycerides 99 mg/dL (2-149) 04/11/20 18:17 Cholesterol 93 mg/dL (50-199) 04/11/20 18:17 LDL Cholesterol Direct 60 mg/dL (50-130) 04/11/20 18:17 HDL Cholesterol 19 mg/dL (40-59) L 04/11/20 18:17 Cholesterol/HDL Ratio 4.89 % 04/11/20 18:17 Urine Color Yellow (Yellow) 04/11/20 16:30 Urine Turbidity Slightly-cloudy (Clear) 04/11/20 16:30 Urine pH 5.0 (5.0-7.0) 04/11/20 16:30 Ur Specific Davis 1.013 (1.003-1.030) 04/11/20 16:30 Urine Protein <15 mg/dl mg/dL (Negative) 04/11/20 16:30 Urine Glucose (UA) Neg mg/dL (Negative) 04/11/20 16:30 Urine Ketones Neg mg/dL (Negative) 04/11/20 16:30 Urine Blood Lg (Negative) 04/11/20 16:30 Urine Nitrite Neg (Negative) 04/11/20 16:30 Urine Bilirubin Neg (Negative) 04/11/20 16:30 Urine Urobilinogen < 2.0 mg/dL (<2.0) 04/11/20 16:30 Ur Leukocyte Esterase Neg (Negative) 04/11/20 16:30 Urine WBC (Auto) 16.0 /HPF (0.0-6.0) H 04/11/20 16:30 Urine RBC (Auto) 19.0 /HPF (0.0-6.0) 04/11/20 16:30 U Epithel Cells (Auto) 1.0 /HPF (0-13.0) 04/11/20 16:30 Urine Mucus Few /HPF 04/11/20 16:30 Urine Yeast (Budding) Few /HPF 04/11/20 16:30 Urine Eosinophils None seen (None Seen) 04/11/20 16:30 Urine Creatinine 60.0 mg/dL (0.1-20.0) H 04/11/20 16:30 Urine Sodium 26 mmol/L 04/11/20 16:30 Random Vancomycin 25.8 ug/mL (0-40.0) 04/10/20 05:48 Coronavirus (PCR) Negative (Negative) 04/03/20 08:00 Hep Bs Antigen Non-reactive (Negative) 04/06/20 07:14 Hepatitis C Antibody Non-reactive (NonReactive) 04/06/20 07:14 Blood Type B POSITIVE 03/25/20 11:42 Antibody Screen Negative 03/25/20 11:42 Microbiology: Microbiology 04/08/20 Unknown Leg - Left Wound Culture - Preliminary - Diagnostic Impressions Diagnostic Impressions: Echocardiogram 03/19/20 12:49 Transthoracic Echocardiogram Indication: CAD and Abnormal EKG HR: 110 Conclusions *The study is technically limited due to patient body habitus. *The left ventricular chamber size is mildly dilated. *Global left ventricular systolic function is moderate to severely decreased. *The estimated ejection fraction is 30-35%. *The basal inferolateral, and basal inferior wall segments are normal. *The mid inferolateral, mid inferior, apical lateral, and apical inferior wall segments are akinetic. *The left atrial chamber size is normal. Findings Procedure Info: The study is technically limited due to patient body habitus. The study was technically limited due to the patient's inability to lay in the left lateral decubitus position. Left Ventricle: The left ventricular chamber size is mildly dilated. Global left ventricular systolic function is moderate to severely decreased. The estimated ejection fraction is 30-35%. The basal inferolateral, and basal inferior wall segments are normal. The mid inferolateral, mid inferior, apical lateral, and apical inferior wall segments are akinetic. Left Atrium: The left atrial chamber size is normal. Right Ventricle: The right ventricle is not well visualized. Right Atrium: The right atrium is not well visualized. The right atrial cavity size is normal. Aortic Valve: The aortic valve is trileaflet. Mitral Valve: The mitral valve leaflets are moderately thickened. There is mild mitral regurgitation. Tricuspid Valve: The tricuspid valve is not well visualized. There is trace tricuspid regurgitation. Pulmonic Valve: The pulmonic valve is not well visualized. Pericardium: There is no pericardial effusion. Aorta: The aorta appears normal. Venous: The venous system is not well visualized. Contrast: Definity was used to optimize study. Measurements Chambers 2D Name Value Normal Range IVSd (2D) 0.94 cm (0.6 - 1.1) LVPWd (2D) 0.94 cm (0.6 - 1.1) LVIDd (2D) 6.15 cm (3.7 - 5.6) LVIDs (2D) 5.2 cm (2 - 3.8) LV FS (2D) 15.5 % - EF Teichholz (2D) 32.08 % - Ao root diameter (2D) 2.77 cm (2 - 3.7) Volumes/Mass Name Value Normal Range LA ESV SP 4CH (A/L) 73.77 ml - LA ESV SP 2CH (A/L) 66.45 ml - LA ESV BP (A/L) 71.61 ml - LA ESV BP (A/L) index 30.6 ml/m2 - LA ESV SP 4CH (MOD) 72.55 ml - LA ESV SP 2CH (MOD) 65.34 ml - LA ESV BP (MOD) 70.27 ml - LA ESV BP (MOD) index 30.03 ml/m2 - Diastolic/Systolic Function Name Value Normal Range MV E-wave Vmax 0.85 m/sec - MV deceleration time 69.14 msec - MV A-wave Vmax 0.89 m/sec - MV E:A ratio 0.95 ratio - Aortic Valve Name Value Normal Range AV Vmax 0.96 m/sec - AV VTI 11.83 cm - AV peak gradient 3.68 mmHg - AV mean gradient 1.6 mmHg - LVOT diameter 2.19 cm - LVOT Vmax 0.86 m/sec - LVOT VTI 13.33 cm - LVOT peak gradient 2.96 mmHg - LVOT mean gradient 1.48 mmHg - SV LVOT 50.08 ml - DEYA (continuity Vmax) 3.37 cm2 - DEYA (continuity VTI) 4.23 cm2 - Ascending Ao 2.92 cm - Pulmonic Valve/Qp:Qs Name Value Normal Range PV Vmax 1.08 m/sec - PV VTI 15.88 cm - PV peak gradient 4.7 mmHg - PV mean gradient 2.18 mmHg - RVOT Vmax 0.82 m/sec - RVOT VTI 11.48 cm - RVOT peak gradient 2.67 mmHg - Wallmotion BAS Not Seen BA Not Seen BAL Not Seen BAY Normal BI Normal BIS Not Seen MAS Not Seen MA Not Seen MAL Not Seen MIL Akinetic MN Akinetic MIS Not Seen Not Seen AA Not Seen AL Akinetic AI Akinetic APEX Not Seen Tyson/IV: Voiding Method Indwelling Catheter IV Catheter Type [Right Peripheral IV Forearm] IV Catheter Type [Right INT / Saline Lock Antecubital] IV Catheter Type [Right Hand] Peripheral IV IV Catheter Type [Left Forearm INT / Saline Lock ] IV Catheter Type [Left Upper INT / Saline Lock arm] IV Catheter Type [Left INT / Saline Lock Antecubital] Active Medications - Current Medications Current Medications: Generic Name Dose Route Start Last Admin Trade Name Freq PRN Reason Stop Dose Admin Acetaminophen/Hydrocodone Bitart 2 each 03/22/20 17:18 04/06/20 09:52 [place] 5/325 PO 2 each Q4H PRN Administration Pain, Moderate (4-6) Albuterol 2.5 mg 04/01/20 00:03 Proventil IH Q6HRT PRN Shortness Of Breath Lipase/Protease/Amylase 1 each 04/10/20 17:39 Pancreazevelyne Forrester 10,500 Unit FEEDTUBE PRN PRN For Clogged Feeding Tube Arformoterol Tartrate 15 mcg 03/19/20 20:00 04/12/20 08:02 Brovana Nebu IH 15 mcg Q12HRT LOI Administration Aspirin 81 mg 04/10/20 16:00 04/11/20 09:45 Halfprin Ec PO 81 mg QDAY LOI Administration Atorvastatin Calcium 40 mg 03/19/20 22:00 04/11/20 23:38 Lipitor PO 40 mg QHS LOI Administration Budesonide 0.5 mg 03/19/20 20:00 04/12/20 08:02 Pulmicort IH 0.5 mg Q12HRT LOI Administration Clopidogrel Bisulfate 75 mg 03/19/20 10:00 04/11/20 09:45 Plavix PO 75 mg QDAY LOI Administration Dextrose 50 ml 03/18/20 22:21 04/08/20 07:42 D50w (25gm) Syringe IV 50 ml Q30MIN PRN Administration Hypoglycemia Protocol Diphenhydramine HCl 25 mg 03/19/20 12:44 Benadryl IV Q4H PRN Itching Fentanyl 50 mcg 04/11/20 20:22 Sublimaze IV Q10MIN PRN ANALGESIA Furosemide 40 mg 04/06/20 06:00 04/12/20 06:41 Lasix IV 40 mg 0600,1800 LOI Administration Guaifenesin 10 ml 04/01/20 00:03 04/09/20 21:17 Guaifenesin Dm Syrup PO 10 ml Q4H PRN Administration Cough Hydromorphone/Sodium Chloride 0 mg 03/19/20 13:00 03/30/20 02:09 Dilaudid Telemarketing Fundraiser 6mg/30ml IV 1 cart DIRECT LOI Administration Protocol Hydrophilic Ointment 1 applic 04/11/20 20:22 Vaseline Lip Therapy TP Q2HR PRN Dry Lips Sodium Chloride 1,000 mls @ 75 mls/hr 04/07/20 16:45 04/12/20 01:58 Nacl 0.9% 1000 Ml IV 75 mls/hr DIRECT LOI Administration Cefepime HCl 1 gm in 100 mls @ 200 mls/hr 04/08/20 13:00 04/11/20 23:38 Cefepime/Ns 1 Gm/100 Ml IV 200 mls/hr Q12HR LOI Administration Protocol Norepinephrine 4 mg in 250 mls @ 7.5 mls/hr 04/11/20 18:00 Levophed Drip 4 Mg/Ns 250 Ml IV TITR LOI Protocol 2 MCG/MIN Fentanyl Citrate 2,000 mcg in 100 mls @ 6.405 mls/hr 04/11/20 21:00 Fentanyl Drip Premix IV TITR LOI Protocol 1 MCG/KG/HR Amiodarone HCl 150 mg/ 100 mls @ 600 mls/hr 04/12/20 08:45 Dextrose IV 04/12/20 08:54 ONCE ONE Amiodarone HCl 900 mg/ 500 mls @ 33.333 mls/hr 04/12/20 09:00 Dextrose IV 04/12/20 14:59 DIRECT LOI Protocol 1 MG/MIN Insulin Human Lispro 0 unit 04/12/20 00:00 04/12/20 01:55 Humalog SUB-Q 4 unit Q6HR LOI Administration Protocol Ipratropium [place] 0.5 mg 04/01/20 00:05 Atrovent IH Q6HRT PRN Shortness Of Breath Magnesium Hydroxide 30 ml 03/18/20 22:21 Milk Of Magnesia PO Q4H PRN Constipation Metoprolol Tartrate 50 mg 03/19/20 22:00 04/11/20 22:26 Metoprolol PO Not Given BID LOI Multi-Ingred Cream/Lotion/Oil/Oint 1 applic 04/11/20 20:22 Artificial Tears Ophth Oint OU Q4HR PRN Dry Eye(s) Naloxone HCl 0.1 mg 03/19/20 12:44 Naloxone IV Q2MIN PRN Res Rate </= 8 or 02 SAT < 92% Ondansetron HCl 4 mg 03/18/20 22:21 04/05/20 01:46 Zofran IV 4 mg Q8H PRN Administration Nausea And Vomiting Pantoprazole Sodium 40 mg 03/20/20 10:00 04/11/20 23:38 Protonix PO 40 mg BID LOI Administration Pregabalin 150 mg 03/22/20 22:00 04/11/20 23:40 Pregabalin PO 150 mg BID LOI Administration Simple Syrup 15 ml 04/10/20 17:39 Simple Syrup FEEDTUBE PRN PRN Hypoglycemia Simple Syrup 30 ml 04/10/20 17:39 Simple Syrup FEEDTUBE PRN PRN Hypoglycemia Sodium Bicarbonate 325 mg 04/10/20 17:39 Sodium Bicarbonate FEEDTUBE PRN PRN For Clogged Feeding Tube Sodium Chloride 10 ml 03/19/20 10:00 04/11/20 09:47 Sodium Chloride Flush Syringe 10 Ml IV 10 ml BID LOI Administration Sodium Chloride 10 ml 03/18/20 22:21 04/11/20 05:57 Sodium Chloride Flush Syringe 10 Ml IV 10 ml PRN PRN Administration LINE FLUSH Zolpidem Tartrate 5 mg 03/31/20 19:09 04/05/20 22:32 Ambien PO 5 mg QHS PRN Administration Sleep Nutrition/Malnutrition Assess - Dietary Evaluation Nutrition/Malnutrition Findings: Nutrition Notes Start: 03/19/20 11:59 Freq: Status: Active Protocol: Document 04/11/20 08:54 LM (Rec: 04/11/20 09:04 LM [id number]) Nutrition Notes Need for Assessment generated from: MD Order Initial or Follow up Reassessment Current Diagnosis COPD,Diabetes Other Pertinent Diagnosis (L) LE ischemia s/p (L) BKA, STARR, NSTEMI Current Diet TF Labs/Tests K 5.3 Na 146 BUN 109 Cr 2.1 Pertinent Medications Lasix Height 6 ft Weight 128.1 kg Phil Campbell Body Weight (kg) 80.90 BMI 38.2 Weight Status Obese Subjective/Other Information MD consult for TF. Pt with dobhoff. Burn Absent Trauma Absent Current % PO Negligible Minimum of two criteria No #1 Nutrition Diagnosis Increased nutrient needs ( specify in comment below) Diagnosis Progress(for reassessment Continues documentation) Is patient on ventilator? No Is Patient Ambulatory and/or Out of Bed No REE-([facility]-confined to bed) 2588.544 Kcal/Kg value to use for calculation 17 Approximate Energy Requirements Using 2178 kcal/Kg Calculation Used for Recommendations Kcal/kg Additional Notes Pro needs 1-1.2g/kg adjBW (not for amputation): 105-125g/day Fluid needs 1ml/kcal Nutrition Intervention Change Diet Order: TF Nutrition Support: Nepro 1.8 at 45ml/hr Flush 200ml q4h Kcal 1,944 Protein (gm) 87 Fluid (mL) 785 Goal #1 TF start/tolerance Goal #2 Healing of surgical site Anticipated Discharge Needs: unable to determine at this time Follow-Up By: 04/15/20 Additional Comments F/U for TF start/tolerance, Na /K labs
[2020-04-12] MEDS ORDERED: AMIODARONE 900 MG in DEXTROSE 5% IN WATER 482 ML IV SCH (09:00)
[2020-04-12] MEDS: ASPIRIN EC 81 MG TAB PO SCH (10:01)
[2020-04-12] MEDS: PREGABALIN 75 MG CAP PO SCH (10:01)
[2020-04-12] MEDS: LANSOPRAZOLE 30 MG SOLUTAB FEEDTUBE SCH ×2 (10:01→22:01)
[2020-04-12] MEDS: CLOPIDOGREL 75 MG TAB PO SCH (10:02)
[2020-04-12] MEDS: METOPROLOL TARTRATE 50 MG TAB PO SCH (10:02)
[2020-04-12] MEDS: CEFEPIME/NS 1 GM/100 ML 1 GM/100 ML BAG IV SCH ×2 (10:03→22:01)
[2020-04-12] MEDS: NORepinephrine/NS 4 MG-250 ML 4 MG/250 ML BAG IV SCH ×2 (10:20→18:10)
--- NOTE | 2020-04-12 10:23 | Progress Note ---
Assessment and Plan 1. Acute kidney injury: Vasomotor DYLON in the setting of sepsis and hypotension. US negative for hydro. UA results noted. Monitor renal function. Creatinine level increased since yesterday. Avoid nephrotoxic agents. Meds dosage based on GFR. 2. FEN: Hyperkalemia, received Kayexalate around 5 AM, improving, monitor. Metabolic acidosis, monitor. Hypernatremia, monitor. Monitor lytes and volume status. 3. Sepsis: PNA vs L stump infection. Followed by ID. 4. Shock / Hypotension: On Levophed. Monitor BP. 5. Acute hypoxic respiratory failure: Intubated 04/11, on vent. 6. s/p Cardiac arrest. 7. Acute left lower extremity ischemia: 03/19/2020 status post endovascular revascularization. 03/19/2020 s/p left lower extremity 4 compartment fasciotomy. 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 8. Non-ST elevation ND : Patient has history of CABG ,patient denies any chest pain. Followed by Cards. 9. Acute systolic CHF; EF 30-35%: Beta-blockers. 10. Acute metabolic encephalopathy: Multifactorial. Followed by Neurology. 11. Elevated Transaminases: Followed by GI. 12. DM with hyperglycemia: Accu-Check, sliding scale coverage, ADA diet. HbA1C 11. 13. Anemia: Closely monitor and transfuse as needed. - Subjective: Patient was seen and examined at the bedside. In ICU. - General Appearance General appearance: well-developed, obese, appears stated age, intubated, on vent HEENT: ATNC, PERRL Neck: Trachea midline Respiratory: appears ctab Cardiology: regular, S1S2, no murmur Gastrointestinal: soft, bowel sounds, not tender, not distended Integumentary: L BKA dressing Neurologic: sedated Ext: trace LE edema : acosta catheter Subjective Date of service: 04/12/20 Principal diagnosis: Acute limb ischemia; STARR; COPD; Ac hypoxemic resp failure; DM II; NSTEMI Objective - Vital Signs Vital signs: Vital Signs - 12hr 04/11/20 04/11/20 04/12/20 22:26 23:35 00:00 Temperature 97.6 F Pulse Rate 76 Pulse Rate [ Anterior Bilateral Throughout] Pulse Rate [ 83 Apical] Pulse Rate [ 83 From Monitor] Respiratory 20 Rate Respiratory Rate [Anterior Bilateral Throughout] Blood Pressure 95/64 O2 Sat by Pulse 98 Oximetry 04/12/20 04/12/20 04/12/20 00:25 03:33 04:00 Temperature 98.3 F Pulse Rate 77 88 Pulse Rate [ Anterior Bilateral Throughout] Pulse Rate [ 88 Apical] Pulse Rate [ 88 From Monitor] Respiratory 20 Rate Respiratory Rate [Anterior Bilateral Throughout] Blood Pressure 83/52 O2 Sat by Pulse 99 98 Oximetry 04/12/20 04/12/20 04/12/20 04:41 08:00 08:02 Temperature Pulse Rate 84 73 Pulse Rate [ 78 Anterior Bilateral Throughout] Pulse Rate [ Apical] Pulse Rate [ From Monitor] Respiratory Rate Respiratory 25 H Rate [Anterior Bilateral Throughout] Blood Pressure 108/75 106/53 O2 Sat by Pulse 100 100 99 Oximetry 04/12/20 10:02 Temperature Pulse Rate 39 L Pulse Rate [ Anterior Bilateral Throughout] Pulse Rate [ Apical] Pulse Rate [ From Monitor] Respiratory Rate Respiratory Rate [Anterior Bilateral Throughout] Blood Pressure 70/45 O2 Sat by Pulse Oximetry - Lab 04/12/20 07:22 04/12/20 07:22 Most recent lab results ABG pH 7.451 pH Units (7.350-7.450) H 04/12/20 04:45 ABG pCO2 36.4 mm Hg 04/12/20 04:45 ABG pO2 84.3 mm Hg (80.0-90.0) 04/12/20 04:45 ABG HCO3 24.8 mmol/L (20.0-26.0) 04/12/20 04:45 ABG O2 Saturation 97.1 % (95.0-99.0) 04/12/20 04:45 Calcium 9.2 mg/dL (8.4-10.2) 04/12/20 07:22 Phosphorus 7.40 mg/dL (2.5-4.5) H 04/11/20 18:17 Magnesium 3.00 mg/dL (1.7-2.3) H 04/12/20 07:22 Urine Creatinine 60.0 mg/dL (0.1-20.0) H 04/11/20 16:30 Urine Sodium 26 mmol/L 04/11/20 16:30 Medications & Allergies - Medications Allergies/Adverse Reactions: Allergies No Known Allergies Allergy (Unverified 03/18/20 15:17) Home Medications: Home Medications Medication Instructions Recorded Confirmed Last Taken Type AtorvaSTATin [Lipitor] 20 mg PO QHS 03/20/20 03/20/20 03/14/20 History Clopidogrel [Plavix] 75 mg PO QHS 03/20/20 03/20/20 03/14/20 History Famotidine [Acid Controller] 20 mg PO BID 03/20/20 03/20/20 03/14/20 History Fenofibrate Nanocrystallized 48 mg PO DAILY 03/20/20 03/20/20 03/14/20 History [Fenofibrate] Metoprolol Tartrate 25 mg PO BID 03/20/20 03/20/20 03/14/20 History Pregabalin [Lyrica] 150 mg PO BID 03/20/20 03/20/20 03/14/20 History amLODIPine [Norvasc] 5 mg PO DAILY 03/20/20 03/20/20 03/14/20 History glipiZIDE [Glucotrol] 10 mg PO BID 03/20/20 03/20/20 03/14/20 History hydroCHLOROthiazide [HCTZ] 25 mg PO QDAY 03/20/20 03/20/20 03/14/20 History lisinopriL [Zestril TAB] 40 mg PO QDAY 03/20/20 03/20/20 03/14/20 History Active Medications: Generic Name Dose Route Start Last Admin Trade Name Freq PRN Reason Stop Dose Admin Albuterol 2.5 mg 04/01/20 00:03 Proventil IH Q6HRT PRN Shortness Of Breath Lipase/Protease/Amylase 1 each 04/10/20 17:39 Pancrecarroll Forrester 10,500 Unit FEEDTUBE PRN PRN For Clogged Feeding Tube Arformoterol Tartrate 15 mcg 03/19/20 20:00 04/12/20 08:02 Brovana Nebu IH 15 mcg Q12HRT LOI Administration Aspirin 81 mg 04/10/20 16:00 04/12/20 10:01 Halfprin Ec PO 81 mg QDAY LOI Administration Atorvastatin Calcium 40 mg 03/19/20 22:00 04/11/20 23:38 Lipitor PO 40 mg QHS LOI Administration Budesonide 0.5 mg 03/19/20 20:00 04/12/20 08:02 Pulmicort IH 0.5 mg Q12HRT LOI Administration Clopidogrel Bisulfate 75 mg 03/19/20 10:00 04/12/20 10:02 Plavix PO 75 mg QDAY LOI Administration Dextrose 50 ml 03/18/20 22:21 04/08/20 07:42 D50w (25gm) Syringe IV 50 ml Q30MIN PRN Administration Hypoglycemia Protocol Diphenhydramine HCl 25 mg 03/19/20 12:44 Benadryl IV Q4H PRN Itching Fentanyl 50 mcg 04/11/20 20:22 Sublimaze IV Q10MIN PRN ANALGESIA Furosemide 40 mg 04/06/20 06:00 04/12/20 06:41 Lasix IV 40 mg 0600,1800 LOI Administration Hydrophilic Ointment 1 applic 04/11/20 20:22 Vaseline Lip Therapy TP Q2HR PRN Dry Lips Cefepime HCl 1 gm in 100 mls @ 200 mls/hr 04/08/20 13:00 04/12/20 10:03 Cefepime/Ns 1 Gm/100 Ml IV 200 mls/hr Q12HR LOI Administration Protocol Norepinephrine 4 mg in 250 mls @ 7.5 mls/hr 04/11/20 18:00 Levophed Drip 4 Mg/Ns 250 Ml IV TITR LOI Protocol 2 MCG/MIN Fentanyl Citrate 2,000 mcg in 100 mls @ 6.405 mls/hr 04/11/20 21:00 Fentanyl Drip Premix IV TITR LOI Protocol 1 MCG/KG/HR Amiodarone HCl 900 mg/ 500 mls @ 33.333 mls/hr 04/12/20 09:00 04/12/20 09:45 Dextrose IV 04/12/20 14:59 1 mg/min DIRECT LOI 33.333 mls/hr Administration Protocol 1 MG/MIN Insulin Human Lispro 0 unit 04/12/20 00:00 04/12/20 09:57 Humalog SUB-Q Not Given Q6HR [facility] Protocol Ipratropium Turney 0.5 mg 04/01/20 00:05 Atrovent IH Q6HRT PRN Shortness Of Breath Lansoprazole 30 mg 04/12/20 10:00 04/12/20 10:01 Prevacid Solutab FEEDTUBE 30 mg BID LOI Administration Magnesium Hydroxide 30 ml 03/18/20 22:21 Milk Of Magnesia PO Q4H PRN Constipation Metoprolol Tartrate 50 mg 03/19/20 22:00 04/12/20 10:02 Metoprolol PO Not Given BID LOI Multi-Ingred Cream/Lotion/Oil/Oint 1 applic 04/11/20 20:22 Artificial Tears Ophth Oint OU Q4HR PRN Dry Eye(s) Naloxone HCl 0.1 mg 03/19/20 12:44 Naloxone IV Q2MIN PRN Res Rate </= 8 or 02 SAT < 92% Ondansetron HCl 4 mg 03/18/20 22:21 04/05/20 01:46 Zofran IV 4 mg Q8H PRN Administration Nausea And Vomiting Pregabalin 150 mg 03/22/20 22:00 04/12/20 10:01 Pregabalin PO 150 mg BID LOI Administration Simple Syrup 15 ml 04/10/20 17:39 Simple Syrup FEEDTUBE PRN PRN Hypoglycemia Simple Syrup 30 ml 04/10/20 17:39 Simple Syrup FEEDTUBE PRN PRN Hypoglycemia Sodium Bicarbonate 325 mg 04/10/20 17:39 Sodium Bicarbonate FEEDTUBE PRN PRN For Clogged Feeding Tube Sodium Chloride 10 ml 03/19/20 10:00 04/12/20 10:03 Sodium Chloride Flush Syringe 10 Ml IV 10 ml BID LOI Administration Sodium Chloride 10 ml 03/18/20 22:21 04/11/20 05:57 Sodium Chloride Flush Syringe 10 Ml IV 10 ml PRN PRN Administration LINE FLUSH
--- NOTE | 2020-04-12 10:57 | Progress Note ---
Assessment and Plan Called for re-evaluation of pt following cardiopulmonary arrest while undergoing MRI yesterday afternoon, rhythm was reportedly PEA. Pt was intubated and tx to CCU. He was initiated on amio gtt overnight for frequent runs of NSVT. He was just noted to develop bradycardia, amio gtt discontinued. Pt is currently requiring vasopressor support. tte from 03/19/2020 showed EF 30-35%, LV mildly dilated, mid inferolateral, mid inferior, apical lateral and apical inferior wall segments are akinetic. Cont supportive measures. Wean vasopressors as tolerated. Overall poor prognosis. The patient has been seen in conjunction with Dr. Lindsey who agrees with the assessment and plan of care. - Patient Problems (1) Cardiopulmonary arrest Current Visit: Yes Status: Acute (2) PAD (peripheral artery disease) Current Visit: Yes Status: Chronic (3) S/P BKA (below knee amputation) Current Visit: Yes Status: Chronic (4) Abnormal ECG Current Visit: Yes Status: Acute (5) NSTEMI (non-ST elevated myocardial infarction) Current Visit: Yes Status: Acute Plan to address problem: suspect type II (6) Cardiomyopathy Current Visit: Yes Status: Acute (7) CAD (coronary artery disease) Current Visit: Yes Status: Chronic (8) History of coronary artery bypass graft Current Visit: Yes Status: Chronic (9) HTN (hypertension) Current Visit: Yes Status: Chronic (10) History of CVA (cerebrovascular accident) Current Visit: Yes Status: Chronic (11) Smoker Current Visit: Yes Status: Chronic (12) NSVT (nonsustained ventricular tachycardia) Current Visit: Yes Status: Acute (13) DYLON (acute kidney injury) Current Visit: Yes Status: Acute (14) Anemia Current Visit: Yes Status: Acute Subjective Date of service: 04/12/20 Principal diagnosis: Acute limb ischemia; STARR; COPD; Ac hypoxemic resp failure; DM II; NSTEMI Interval history: pt intubated, unresponsive. s/p cardiopulmonary arrest yesterday afternoon while in MRI. in SR with freq NSVT on tele, amio gtt infusing. requiring vasopressor support. Objective Last Vital Signs Temp 98.3 F 04/12/20 03:33 Pulse 39 L 04/12/20 10:02 Resp 25 H 04/12/20 08:02 BP 70/45 04/12/20 10:02 Pulse Ox 99 04/12/20 08:02 - Physical Examination General: Other (intubated, unresponsive) Neck: Positive: neck supple, trachea midline Cardiac: Positive: Regular Rhythm, S1/S2 Lungs: Positive: Decreased Breath Sounds, Oxygen, Ventilated Respirations Neuro: Positive: Other (intubated, unresponsive) Abdomen: Negative: Tender Skin: Negative: Rash Musculoskeletal: other (s/p left BKA) Extremities: Present: Other (LLE pain, numbness, pale) - Labs and Meds Cardiac Enzymes 04/11/20 04/12/20 Range/Units 18:17 07:22 AST 230 H 195 H (5-40) units/L CK-MB (CK-2) 3.5 (0.0-4.0) ng/mL Coagulation 04/12/20 Range/Units 07:22 PT 22.9 H (12.2-14.9) Sec. INR 1.99 H (0.87-1.13) Lipids 04/11/20 Range/Units 18:17 Triglycerides 99 (2-149) mg/dL Cholesterol 93 (50-199) mg/dL HDL Cholesterol 19 L (40-59) mg/dL Cholesterol/HDL Ratio 4.89 % CBC 04/11/20 04/12/20 Range/Units 18:17 07:22 WBC 9.9 12.1 H (4.5-11.0) K/mm3 RBC 2.71 L 2.96 L (3.65-5.03) M/mm3 Hgb 7.9 L 8.7 L (11.8-15.2) gm/dl Hct 26.1 L 28.1 L (35.5-45.6) % Plt Count 178 172 (140-440) K/mm3 Lymph # 0.9 L (1.2-5.4) K/mm3 [place] # 0.8 (0.0-0.8) K/mm3 Eos # 0.0 (0.0-0.4) K/mm3 Baso # 0.1 (0.0-0.1) K/mm3 Comprehensive Metabolic Panel 04/11/20 04/12/20 04/12/20 Range/Units 18:17 01:41 07:22 Sodium 146 H 147 H 147 H (137-145) mmol/L Potassium 5.8 H 6.0 H 5.2 H (3.6-5.0) mmol/L Chloride 107.5 H 111.8 H 109.8 H (98-107) mmol/L Carbon Dioxide 21 L 21 L 20 L (22-30) mmol/L BUN 111 H 117 H 120 H (9-20) mg/dL Creatinine 2.2 H 2.6 H 2.8 H (0.8-1.3) mg/dL Glucose 176 H 201 H 158 H (75-100) mg/dL Calcium 8.5 8.0 L 9.2 (8.4-10.2) mg/dL AST 230 H 195 H (5-40) units/L ALT 163 H 162 H (7-56) units/L Alkaline Phosphatase 236 H 244 H (35-129) units/L Total Protein 5.7 L 5.9 L (6.3-8.2) g/dL Albumin 2.1 L 2.4 L (3.9-5) g/dL - Imaging and Cardiology EKG: report reviewed, image reviewed Echo: report reviewed (tte done 12/2014 showed EF 55-60%, no significant abnormalities. ) - Telemetry EKG Rhythm: Sinus Rhythm - EKG Sinus rhythms and dysrhythmias: sinus rhythm Repolarization changes or abnormalities: nonspecific abnormality, ST segment, and/or T wave - Allied health notes Allied health notes reviewed: nursing
--- NOTE | 2020-04-12 12:20 | Progress Note ---
Assessment and Plan Acute limb ischemia S/P revascularization surgery. Obstructive sleep apnea. History of chronic obstructive pulmonary disease. Acute hypoxemic respiratory failure. Diabetes. History of coronary artery disease. Non-ST elevation myocardial infarction. Acute coronary syndrome. Acute cerebrovascular accident. - advance ETT 2 cm - cardiology evaluation ongoing - did not tolerate amiodarone drip - Levophed started; wean for MAP > 65 mmHg - place PICC line - continue to hold full anticoagulation re: risk of hemorrhagic transformation - Daily SAT and SBT assessment as tolerated - continue to wean supplemental oxygen for target O2 sat's > 90% acutely - VAP bundle addressed - continue lung protective strategies - continue bronchodilators with pulmonary hygiene per RT - wean per pulmonary driven protocols otherwise - sedation prn for target RASS 0 to -1 - continue wound care per WCN / RN - accuchecks with glycemic control per SSI (While critically ill target blood glucose of 140-180 mg/dL; avoid hypoglycemia) - wean supplemental oxygen for target O2 sat's > 90% acutely - prn bronchodilators with pulmonary hygiene per RT - avoid benzodiazepine's, reduce the possibility of delirium - AB's per surgery rec's (No S&S of overwhelming sepsis) - prn analgesia per CPOT score - Maintenance of sleep-wake cycle, avoid delirium - aspiration precautions - G.I. & VTE prophylaxis - PT/OT/ROM exercises - mobility protocols for pressure ulcer prophylaxis - Monitor hemodynamics closely - continue other care per attending / other consultants - discharge planning ongoing concurrently - transferred to telemetry .... Re-evaluate in am & prn CONDITION: CRITICAL PROGNOSIS: GUARDED CODE STATUS: FULL CODE The high probability of a clinically significant, sudden or life-threatening deterioration of the [respiratory, cardiovascular & neurologic] system(s) required my full and direct attention, intervention and personal management. The aggregate critical care time was [35] minutes without overlap. Time includes spent on; [x] Data Review and interpretation [x] Patient assessment and monitoring of vital signs [x] Documentation [x] Medication orders and management Subjective Date of service: 04/12/20 Principal diagnosis: Acute limb ischemia; STARR; COPD; Ac hypoxemic resp failure; DM II; NSTEMI Interval history: Patient is seen today for: Acute limb ischemia S/P revascularization surgery; STARR; COPD; Acute hypoxemic respiratory failure; DM II; NSTEMI; Acute CVA Seen and examined at bedside; 24hour events reviewed; nursing and respiratory care staff consulted; no adverse overnight events reported to me; resting peacefully in bed; developed dysrrythmia this am with baseline Atrial fib rhythm; AMS is persistent Objective Vital Signs - 12hr 04/12/20 04/12/20 04/12/20 00:25 03:30 03:33 Temperature 98.3 F Pulse Rate 77 82 Pulse Rate [ Anterior Bilateral Throughout] Pulse Rate [ Apical] Pulse Rate [ From Monitor] Respiratory 18 Rate Respiratory Rate [Anterior Bilateral Throughout] Blood Pressure 83/52 94/58 O2 Sat by Pulse 99 100 Oximetry 04/12/20 04/12/20 04/12/20 03:40 03:50 04:00 Temperature Pulse Rate 83 82 83 Pulse Rate [ Anterior Bilateral Throughout] Pulse Rate [ 88 Apical] Pulse Rate [ 88 From Monitor] Respiratory 16 16 12 Rate Respiratory Rate [Anterior Bilateral Throughout] Blood Pressure 94/58 91/57 88/56 O2 Sat by Pulse 100 100 99 Oximetry 04/12/20 04/12/20 04/12/20 04:10 04:20 04:30 Temperature Pulse Rate 82 90 84 Pulse Rate [ Anterior Bilateral Throughout] Pulse Rate [ Apical] Pulse Rate [ From Monitor] Respiratory 14 12 11 L Rate Respiratory Rate [Anterior Bilateral Throughout] Blood Pressure 94/58 91/61 108/75 O2 Sat by Pulse 99 100 99 Oximetry 04/12/20 04/12/20 04/12/20 04:40 04:41 04:50 Temperature Pulse Rate 83 84 85 Pulse Rate [ Anterior Bilateral Throughout] Pulse Rate [ Apical] Pulse Rate [ From Monitor] Respiratory 12 14 Rate Respiratory Rate [Anterior Bilateral Throughout] Blood Pressure 108/75 108/75 108/85 O2 Sat by Pulse 100 100 100 Oximetry 04/12/20 04/12/20 04/12/20 05:00 05:10 05:20 Temperature Pulse Rate 85 91 H 86 Pulse Rate [ Anterior Bilateral Throughout] Pulse Rate [ Apical] Pulse Rate [ From Monitor] Respiratory 14 15 14 Rate Respiratory Rate [Anterior Bilateral Throughout] Blood Pressure 108/85 108/85 95/71 O2 Sat by Pulse 100 100 100 Oximetry 04/12/20 04/12/20 04/12/20 05:30 05:40 05:50 Temperature Pulse Rate 78 85 79 Pulse Rate [ Anterior Bilateral Throughout] Pulse Rate [ Apical] Pulse Rate [ From Monitor] Respiratory 15 16 15 Rate Respiratory Rate [Anterior Bilateral Throughout] Blood Pressure 93/67 99/68 98/67 O2 Sat by Pulse 99 100 99 Oximetry 04/12/20 04/12/20 04/12/20 06:00 06:11 06:21 Temperature Pulse Rate 77 93 H 96 H Pulse Rate [ Anterior Bilateral Throughout] Pulse Rate [ Apical] Pulse Rate [ From Monitor] Respiratory 17 16 17 Rate Respiratory Rate [Anterior Bilateral Throughout] Blood Pressure 98/67 98/67 O2 Sat by Pulse 100 99 Oximetry 04/12/20 04/12/20 04/12/20 06:31 06:41 06:51 Temperature Pulse Rate 93 H 74 89 Pulse Rate [ Anterior Bilateral Throughout] Pulse Rate [ Apical] Pulse Rate [ From Monitor] Respiratory 17 17 17 Rate Respiratory Rate [Anterior Bilateral Throughout] Blood Pressure 96/59 96/59 95/64 O2 Sat by Pulse 98 99 98 Oximetry 04/12/20 04/12/20 04/12/20 07:01 07:11 07:21 Temperature Pulse Rate 82 89 96 H Pulse Rate [ Anterior Bilateral Throughout] Pulse Rate [ Apical] Pulse Rate [ From Monitor] Respiratory 17 18 18 Rate Respiratory Rate [Anterior Bilateral Throughout] Blood Pressure 113/57 113/57 113/57 O2 Sat by Pulse 99 96 98 Oximetry 04/12/20 04/12/20 04/12/20 07:25 07:31 07:41 Temperature Pulse Rate 73 80 75 Pulse Rate [ Anterior Bilateral Throughout] Pulse Rate [ Apical] Pulse Rate [ From Monitor] Respiratory 19 19 Rate Respiratory Rate [Anterior Bilateral Throughout] Blood Pressure 107/77 107/77 O2 Sat by Pulse 99 100 Oximetry 04/12/20 04/12/20 04/12/20 07:51 08:00 08:01 Temperature 98.3 F Pulse Rate 79 76 Pulse Rate [ Anterior Bilateral Throughout] Pulse Rate [ Apical] Pulse Rate [ From Monitor] Respiratory 18 17 Rate Respiratory Rate [Anterior Bilateral Throughout] Blood Pressure 108/59 106/53 O2 Sat by Pulse 100 100 99 Oximetry 04/12/20 04/12/20 04/12/20 08:02 08:11 08:21 Temperature Pulse Rate 73 78 90 Pulse Rate [ 78 Anterior Bilateral Throughout] Pulse Rate [ Apical] Pulse Rate [ From Monitor] Respiratory 19 18 Rate Respiratory 25 H Rate [Anterior Bilateral Throughout] Blood Pressure 106/53 106/53 106/53 O2 Sat by Pulse 99 98 97 Oximetry 04/12/20 04/12/20 04/12/20 08:30 08:41 08:51 Temperature Pulse Rate 91 H 93 H 102 H Pulse Rate [ Anterior Bilateral Throughout] Pulse Rate [ Apical] Pulse Rate [ From Monitor] Respiratory 18 19 19 Rate Respiratory Rate [Anterior Bilateral Throughout] Blood Pressure 95/70 95/70 95/70 O2 Sat by Pulse 96 97 99 Oximetry 04/12/20 04/12/20 04/12/20 09:01 09:11 09:21 Temperature Pulse Rate 78 68 59 L Pulse Rate [ Anterior Bilateral Throughout] Pulse Rate [ Apical] Pulse Rate [ From Monitor] Respiratory 18 16 15 Rate Respiratory Rate [Anterior Bilateral Throughout] Blood Pressure 95/70 95/70 95/70 O2 Sat by Pulse 97 99 99 Oximetry 04/12/20 04/12/20 04/12/20 09:31 09:41 09:51 Temperature Pulse Rate 59 L 70 59 L Pulse Rate [ Anterior Bilateral Throughout] Pulse Rate [ Apical] Pulse Rate [ From Monitor] Respiratory 18 16 19 Rate Respiratory Rate [Anterior Bilateral Throughout] Blood Pressure 95/70 80/49 70/46 O2 Sat by Pulse 93 96 Oximetry 04/12/20 04/12/20 04/12/20 10:01 10:02 10:11 Temperature Pulse Rate 39 L 39 L 38 L Pulse Rate [ Anterior Bilateral Throughout] Pulse Rate [ Apical] Pulse Rate [ From Monitor] Respiratory 17 18 Rate Respiratory Rate [Anterior Bilateral Throughout] Blood Pressure 70/46 70/45 154/105 O2 Sat by Pulse 97 Oximetry 04/12/20 04/12/20 04/12/20 10:21 10:30 10:41 Temperature Pulse Rate 78 77 85 Pulse Rate [ Anterior Bilateral Throughout] Pulse Rate [ Apical] Pulse Rate [ From Monitor] Respiratory 16 17 16 Rate Respiratory Rate [Anterior Bilateral Throughout] Blood Pressure 154/105 86/55 86/55 O2 Sat by Pulse 99 98 98 Oximetry 04/12/20 04/12/20 04/12/20 10:51 11:01 11:11 Temperature Pulse Rate 82 70 62 Pulse Rate [ Anterior Bilateral Throughout] Pulse Rate [ Apical] Pulse Rate [ From Monitor] Respiratory 17 16 16 Rate Respiratory Rate [Anterior Bilateral Throughout] Blood Pressure 101/60 114/60 101/60 O2 Sat by Pulse 100 98 99 Oximetry 04/12/20 04/12/20 04/12/20 11:21 11:30 11:41 Temperature Pulse Rate 72 73 72 Pulse Rate [ Anterior Bilateral Throughout] Pulse Rate [ Apical] Pulse Rate [ From Monitor] Respiratory 15 17 17 Rate Respiratory Rate [Anterior Bilateral Throughout] Blood Pressure 115/56 109/56 114/60 O2 Sat by Pulse 98 100 99 Oximetry 04/12/20 04/12/20 04/12/20 11:49 11:51 11:54 Temperature 97.7 F Pulse Rate 75 72 Pulse Rate [ Anterior Bilateral Throughout] Pulse Rate [ Apical] Pulse Rate [ From Monitor] Respiratory 18 Rate Respiratory Rate [Anterior Bilateral Throughout] Blood Pressure 109/56 105/58 O2 Sat by Pulse 98 99 Oximetry 04/12/20 12:00 Temperature Pulse Rate 78 Pulse Rate [ Anterior Bilateral Throughout] Pulse Rate [ Apical] Pulse Rate [ From Monitor] Respiratory 14 Rate Respiratory Rate [Anterior Bilateral Throughout] Blood Pressure 99/61 O2 Sat by Pulse 96 Oximetry Constitutional: appears uncomfortable, other (middle aged obese male intubated on MVS and without ventilator dyssynchrony) Eyes: non-icteric ENT: oropharynx moist, other (ETT 23 cm CARSON) Neck: supple, no lymphadenopathy, no JVD Effort: mildly labored Ascultation: Bilateral: diminished breath sounds, rhonchi, other (+ referred upper airway sounds) Percussion: Bilateral: not dull Cardiovascular: irregular rhythm Gastrointestinal: normoactive bowel sounds, soft, non-tender, non-distended (protuberant) Integumentary: rash Extremities: cool, edema (right lower extremity), other (left BKA with clean dressing) Neurologic: pupils equal and round, unable to assess Psychiatric: other (encephalopathic) CBC and BMP: 04/14/20 07:00 04/16/20 05:00 ABG, PT/INR, D-dimer: ABG ABG pH 7.451 pH Units (7.350-7.450) H 04/12/20 04:45 ABG pCO2 36.4 mm Hg 04/12/20 04:45 ABG pO2 84.3 mm Hg (80.0-90.0) 04/12/20 04:45 ABG O2 Saturation 97.1 % (95.0-99.0) 04/12/20 04:45 PT/INR, D-dimer PT 22.9 Sec. (12.2-14.9) H 04/12/20 07:22 INR 1.99 (0.87-1.13) H 04/12/20 07:22 Abnormal lab findings: Abnormal Labs 03/18/20 03/18/20 03/18/20 18:28 18:28 20:56 WBC 12.3 H RBC Hgb Hct MCV MCHC RDW Lymph % (Auto) 11.0 L [place] % (Auto) 9.8 H Lymph # [place] # 1.2 H Seg Neutrophils % 78.4 H Seg Neuts % (Manual) Lymphocytes % (Manual) Nucleated RBC % Seg Neutrophils # 9.6 H Seg Neutrophils # Man Lymphocytes # (Manual) Monocytes # (Manual) Eosinophils # (Manual) PT INR Heparin Anti-Xa Level ABG pH ABG pO2 ABG HCO3 ABG O2 Saturation ABG Base Excess ABG Hemoglobin Oxyhemoglobin Sodium 132 L Potassium Chloride 91.9 L Carbon Dioxide 20 L BUN Creatinine 1.4 H Glucose 406 H POC Glucose Hemoglobin A1c Calcium Phosphorus Magnesium Ferritin AST ALT Alkaline Phosphatase Total Creatine Kinase 2727 H 2492 H CK-MB (CK-2) 135.9 H 107.2 H CK-MB (CK-2) Rel Index 4.3 H Troponin T 5.110 H* 3.960 H* D Total Protein Albumin Triglycerides 188 H LDL Cholesterol Direct 141 H HDL Cholesterol Urine WBC (Auto) Urine Creatinine 03/18/20 03/19/20 03/19/20 22:21 01:57 08:08 WBC RBC Hgb Hct MCV MCHC RDW Lymph % (Auto) [place] % (Auto) Lymph # [place] # Seg Neutrophils % Seg Neuts % (Manual) Lymphocytes % (Manual) Nucleated RBC % Seg Neutrophils # Seg Neutrophils # Man Lymphocytes # (Manual) Monocytes # (Manual) Eosinophils # (Manual) PT INR Heparin Anti-Xa Level ABG pH ABG pO2 ABG HCO3 ABG O2 Saturation ABG Base Excess ABG Hemoglobin Oxyhemoglobin Sodium Potassium Chloride Carbon Dioxide BUN Creatinine Glucose POC Glucose 317 H Hemoglobin A1c 11.0 H Calcium Phosphorus Magnesium Ferritin AST ALT Alkaline Phosphatase Total Creatine Kinase 7255 H CK-MB (CK-2) 79.3 H CK-MB (CK-2) Rel Index Troponin T 5.540 H* D Total Protein Albumin Triglycerides LDL Cholesterol Direct HDL Cholesterol Urine WBC (Auto) Urine Creatinine 03/19/20 03/19/2003/19/20 08:08 08:08 08:08 WBC 13.3 H RBC Hgb Hct MCV MCHC RDW Lymph % (Auto) 10.7 L [place] % (Auto) 8.5 H Lymph # [place] # 1.1 H Seg Neutrophils % 80.0 H Seg Neuts % (Manual) Lymphocytes % (Manual) Nucleated RBC % Seg Neutrophils # 10.6 H Seg Neutrophils # Man Lymphocytes # (Manual) Monocytes # (Manual) Eosinophils # (Manual) PT INR Heparin Anti-Xa Level 0.10 L ABG pH ABG pO2 ABG HCO3 ABG O2 Saturation ABG Base Excess ABG Hemoglobin Oxyhemoglobin Sodium 133 L Potassium 5.1 H Chloride Carbon Dioxide 17 L BUN 23 H Creatinine Glucose 313 H POC Glucose Hemoglobin A1c Calcium Phosphorus Magnesium Ferritin AST ALT Alkaline Phosphatase Total Creatine Kinase CK-MB (CK-2) CK-MB (CK-2) Rel Index Troponin T Total Protein Albumin Triglycerides LDL Cholesterol Direct HDL Cholesterol Urine WBC (Auto) Urine Creatinine 03/19/20 03/19/20 03/19/20 15:40 18:23 21:32 WBC RBC Hgb Hct MCV MCHC RDW Lymph % (Auto) [place] % (Auto) Lymph # [place] # Seg Neutrophils % Seg Neuts % (Manual) Lymphocytes % (Manual) Nucleated RBC % Seg Neutrophils # Seg Neutrophils # Man Lymphocytes # (Manual) Monocytes # (Manual) Eosinophils # (Manual) PT INR Heparin Anti-Xa Level < 0.10 L ABG pH ABG pO2 ABG HCO3 18.3 L ABG O2 Saturation ABG Base Excess -5.4 L ABG Hemoglobin 12.2 L Oxyhemoglobin 94.6 L Sodium Potassium Chloride Carbon Dioxide BUN Creatinine Glucose POC Glucose 348 H Hemoglobin A1c Calcium Phosphorus Magnesium Ferritin AST ALT Alkaline Phosphatase Total Creatine Kinase CK-MB (CK-2) CK-MB (CK-2) Rel Index Troponin T Total Protein Albumin Triglycerides LDL Cholesterol Direct HDL Cholesterol Urine WBC (Auto) Urine Creatinine 03/20/20 03/20/20 03/20/20 04:35 05:12 05:12 WBC 11.1 H RBC 3.63 L Hgb 11.0 L Hct 32.7 L D MCV MCHC RDW Lymph % (Auto) [place] % (Auto) 8.1 H Lymph # [place] # 0.9 H Seg Neutrophils % 75.8 H Seg Neuts % (Manual) Lymphocytes % (Manual) Nucleated RBC % Seg Neutrophils # 8.4 H Seg Neutrophils # Man Lymphocytes # (Manual) Monocytes # (Manual) Eosinophils # (Manual) PT INR Heparin Anti-Xa Level 0.28 L ABG pH ABG pO2 68.3 L ABG HCO3 ABG O2 Saturation 94.3 L ABG Base Excess ABG Hemoglobin 7.1 L Oxyhemoglobin 92.3 L Sodium Potassium Chloride Carbon Dioxide BUN Creatinine Glucose POC Glucose Hemoglobin A1c Calcium Phosphorus Magnesium Ferritin AST ALT Alkaline Phosphatase Total Creatine Kinase CK-MB (CK-2) CK-MB (CK-2) Rel Index Troponin T Total Protein Albumin Triglycerides LDL Cholesterol Direct HDL Cholesterol Urine WBC (Auto) Urine Creatinine 03/20/20 03/20/20 03/20/20 05:12 07:49 12:15 WBC RBC Hgb Hct MCV MCHC RDW Lymph % (Auto) [place] % (Auto) Lymph # [place] # Seg Neutrophils % Seg Neuts % (Manual) Lymphocytes % (Manual) Nucleated RBC % Seg Neutrophils # Seg Neutrophils # Man Lymphocytes # (Manual) Monocytes # (Manual) Eosinophils # (Manual) PT INR Heparin Anti-Xa Level ABG pH ABG pO2 ABG HCO3 ABG O2 Saturation ABG Base Excess ABG Hemoglobin Oxyhemoglobin Sodium 134 L Potassium Chloride Carbon Dioxide 21 L BUN 23 H Creatinine Glucose 275 H POC Glucose 294 H 357 H Hemoglobin A1c Calcium Phosphorus Magnesium Ferritin AST ALT Alkaline Phosphatase Total Creatine Kinase CK-MB (CK-2) CK-MB (CK-2) Rel Index Troponin T 3.200 H* D Total Protein Albumin Triglycerides LDL Cholesterol Direct HDL Cholesterol Urine WBC (Auto) Urine Creatinine 03/20/20 03/20/20 03/21/20 17:16 22:08 04:44 WBC RBC Hgb Hct MCV MCHC RDW Lymph % (Auto) [place] % (Auto) Lymph # [place] # Seg Neutrophils % Seg Neuts % (Manual) Lymphocytes % (Manual) Nucleated RBC % Seg Neutrophils # Seg Neutrophils # Man Lymphocytes # (Manual) Monocytes # (Manual) Eosinophils # (Manual) PT INR Heparin Anti-Xa Level ABG pH ABG pO2 ABG HCO3 ABG O2 Saturation ABG Base Excess ABG Hemoglobin Oxyhemoglobin Sodium 136 L Potassium Chloride Carbon Dioxide 18 L BUN 26 H Creatinine Glucose 266 H POC Glucose 327 H 292 H Hemoglobin A1c Calcium 8.1 L Phosphorus Magnesium Ferritin AST ALT Alkaline Phosphatase Total Creatine Kinase CK-MB (CK-2) CK-MB (CK-2) Rel Index Troponin T Total Protein Albumin Triglycerides LDL Cholesterol Direct HDL Cholesterol Urine WBC (Auto) Urine Creatinine 03/21/20 03/21/20 03/21/20 07:50 12:25 15:53 WBC RBC Hgb Hct MCV MCHC RDW Lymph % (Auto) [place] % (Auto) Lymph # [place] # Seg Neutrophils % Seg Neuts % (Manual) Lymphocytes % (Manual) Nucleated RBC % Seg Neutrophils # Seg Neutrophils # Man Lymphocytes # (Manual) Monocytes # (Manual) Eosinophils # (Manual) PT INR Heparin Anti-Xa Level ABG pH ABG pO2 ABG HCO3 ABG O2 Saturation ABG Base Excess ABG Hemoglobin Oxyhemoglobin Sodium Potassium Chloride Carbon Dioxide BUN Creatinine Glucose POC Glucose 271 H 314 H 436 H Hemoglobin A1c Calcium Phosphorus Magnesium Ferritin AST ALT Alkaline Phosphatase Total Creatine Kinase CK-MB (CK-2) CK-MB (CK-2) Rel Index Troponin T Total Protein Albumin Triglycerides LDL Cholesterol Direct HDL Cholesterol Urine WBC (Auto) Urine Creatinine 03/21/20 03/21/20 03/22/20 17:44 21:55 04:33 WBC RBC Hgb 10.0 L Hct 29.4 L MCV MCHC RDW Lymph % (Auto) [place] % (Auto) Lymph # [place] # Seg Neutrophils % Seg Neuts % (Manual) Lymphocytes % (Manual) Nucleated RBC % Seg Neutrophils # Seg Neutrophils # Man Lymphocytes # (Manual) Monocytes # (Manual) Eosinophils # (Manual) PT INR Heparin Anti-Xa Level ABG pH ABG pO2 ABG HCO3 ABG O2 Saturation ABG Base Excess ABG Hemoglobin Oxyhemoglobin Sodium Potassium Chloride Carbon Dioxide BUN Creatinine Glucose POC Glucose 362 H 329 H Hemoglobin A1c Calcium Phosphorus Magnesium Ferritin AST ALT Alkaline Phosphatase Total Creatine Kinase CK-MB (CK-2) CK-MB (CK-2) Rel Index Troponin T Total Protein Albumin Triglycerides LDL Cholesterol Direct HDL Cholesterol Urine WBC (Auto) Urine Creatinine 03/22/20 03/22/20 03/22/20 08:57 14:12 19:57 WBC RBC Hgb Hct MCV MCHC RDW Lymph % (Auto) [place] % (Auto) Lymph # [place] # Seg Neutrophils % Seg Neuts % (Manual) Lymphocytes % (Manual) Nucleated RBC % Seg Neutrophils # Seg Neutrophils # Man Lymphocytes # (Manual) Monocytes # (Manual) Eosinophils # (Manual) PT INR Heparin Anti-Xa Level ABG pH ABG pO2 ABG HCO3 ABG O2 Saturation ABG Base Excess ABG Hemoglobin Oxyhemoglobin Sodium Potassium Chloride Carbon Dioxide BUN Creatinine Glucose POC Glucose 284 H 319 H 356 H Hemoglobin A1c Calcium Phosphorus Magnesium Ferritin AST ALT Alkaline Phosphatase Total Creatine Kinase CK-MB (CK-2) CK-MB (CK-2) Rel Index Troponin T Total Protein Albumin Triglycerides LDL Cholesterol Direct HDL Cholesterol Urine WBC (Auto) Urine Creatinine 03/22/20 03/23/20 03/23/20 21:44 08:18 12:46 WBC RBC Hgb Hct MCV MCHC RDW Lymph % (Auto) [place] % (Auto) Lymph # [place] # Seg Neutrophils % Seg Neuts % (Manual) Lymphocytes % (Manual) Nucleated RBC % Seg Neutrophils # Seg Neutrophils # Man Lymphocytes # (Manual) Monocytes # (Manual) Eosinophils # (Manual) PT INR Heparin Anti-Xa Level ABG pH ABG pO2 ABG HCO3 ABG O2 Saturation ABG Base Excess ABG Hemoglobin Oxyhemoglobin Sodium Potassium Chloride Carbon Dioxide BUN Creatinine Glucose POC Glucose 336 H 215 H 262 H Hemoglobin A1c Calcium Phosphorus Magnesium Ferritin AST ALT Alkaline Phosphatase Total Creatine Kinase CK-MB (CK-2) CK-MB (CK-2) Rel Index Troponin T Total Protein Albumin Triglycerides LDL Cholesterol Direct HDL Cholesterol Urine WBC (Auto) Urine Creatinine 03/23/20 03/23/20 03/24/20 15:56 22:05 02:35 WBC RBC Hgb 9.0 L Hct 25.8 L MCV MCHC RDW Lymph % (Auto) [place] % (Auto) Lymph # [place] # Seg Neutrophils % Seg Neuts % (Manual) Lymphocytes % (Manual) Nucleated RBC % Seg Neutrophils # Seg Neutrophils # Man Lymphocytes # (Manual) Monocytes # (Manual) Eosinophils # (Manual) PT INR Heparin Anti-Xa Level ABG pH ABG pO2 ABG HCO3 ABG O2 Saturation ABG Base Excess ABG Hemoglobin Oxyhemoglobin Sodium Potassium Chloride Carbon Dioxide BUN Creatinine Glucose POC Glucose 246 H 322 H Hemoglobin A1c Calcium Phosphorus Magnesium Ferritin AST ALT Alkaline Phosphatase Total Creatine Kinase CK-MB (CK-2) CK-MB (CK-2) Rel Index Troponin T Total Protein Albumin Triglycerides LDL Cholesterol Direct HDL Cholesterol Urine WBC (Auto) Urine Creatinine 03/24/20 03/24/20 03/24/20 07:38 11:45 16:02 WBC RBC Hgb Hct MCV MCHC RDW Lymph % (Auto) [place] % (Auto) Lymph # [place] # Seg Neutrophils % Seg Neuts % (Manual) Lymphocytes % (Manual) Nucleated RBC % Seg Neutrophils # Seg Neutrophils # Man Lymphocytes # (Manual) Monocytes # (Manual) Eosinophils # (Manual) PT INR Heparin Anti-Xa Level ABG pH ABG pO2 ABG HCO3 ABG O2 Saturation ABG Base Excess ABG Hemoglobin Oxyhemoglobin Sodium Potassium Chloride Carbon Dioxide BUN Creatinine Glucose POC Glucose 289 H 257 H 150 H Hemoglobin A1c Calcium Phosphorus Magnesium Ferritin AST ALT Alkaline Phosphatase Total Creatine Kinase CK-MB (CK-2) CK-MB (CK-2) Rel Index Troponin T Total Protein Albumin Triglycerides LDL Cholesterol Direct HDL Cholesterol Urine WBC (Auto) Urine Creatinine 03/24/20 03/25/20 03/25/20 21:24 04:06 07:39 WBC RBC Hgb Hct MCV MCHC RDW Lymph % (Auto) [place] % (Auto) Lymph # [place] # Seg Neutrophils % Seg Neuts % (Manual) Lymphocytes % (Manual) Nucleated RBC % Seg Neutrophils # Seg Neutrophils # Man Lymphocytes # (Manual) Monocytes # (Manual) Eosinophils # (Manual) PT INR Heparin Anti-Xa Level 0.10 L ABG pH ABG pO2 ABG HCO3 ABG O2 Saturation ABG Base Excess ABG Hemoglobin Oxyhemoglobin Sodium Potassium Chloride Carbon Dioxide BUN Creatinine Glucose POC Glucose 228 H 332 H Hemoglobin A1c Calcium Phosphorus Magnesium Ferritin AST ALT Alkaline Phosphatase Total Creatine Kinase CK-MB (CK-2) CK-MB (CK-2) Rel Index Troponin T Total Protein Albumin Triglycerides LDL Cholesterol Direct HDL Cholesterol Urine WBC (Auto) Urine Creatinine 03/25/20 03/25/20 03/25/20 08:13 09:30 11:59 WBC 13.1 H RBC 2.82 L Hgb 8.5 L Hct 26.1 L MCV MCHC RDW Lymph % (Auto) [place] % (Auto) Lymph # [place] # Seg Neutrophils % Seg Neuts % (Manual) Lymphocytes % (Manual) Nucleated RBC % Seg Neutrophils # Seg Neutrophils # Man Lymphocytes # (Manual) Monocytes # (Manual) Eosinophils # (Manual) PT INR Heparin Anti-Xa Level ABG pH ABG pO2 ABG HCO3 ABG O2 Saturation ABG Base Excess ABG Hemoglobin Oxyhemoglobin Sodium 131 L Potassium 5.3 H Chloride Carbon Dioxide 20 L BUN 39 H Creatinine 1.4 H Glucose 313 H POC Glucose 273 H Hemoglobin A1c Calcium 8.1 L Phosphorus Magnesium Ferritin AST ALT Alkaline Phosphatase Total Creatine Kinase CK-MB (CK-2) CK-MB (CK-2) Rel Index Troponin T Total Protein Albumin Triglycerides LDL Cholesterol Direct HDL Cholesterol Urine WBC (Auto) Urine Creatinine 03/25/20 03/25/20 03/25/20 13:54 15:58 18:21 WBC RBC Hgb Hct MCV MCHC RDW Lymph % (Auto) [place] % (Auto) Lymph # [place] # Seg Neutrophils % Seg Neuts % (Manual) Lymphocytes % (Manual) Nucleated RBC % Seg Neutrophils # Seg Neutrophils # Man Lymphocytes # (Manual) Monocytes # (Manual) Eosinophils # (Manual) PT INR Heparin Anti-Xa Level ABG pH ABG pO2 ABG HCO3 ABG O2 Saturation ABG Base Excess ABG Hemoglobin Oxyhemoglobin Sodium Potassium Chloride Carbon Dioxide BUN Creatinine Glucose POC Glucose 246 H 235 H 185 H Hemoglobin A1c Calcium Phosphorus Magnesium Ferritin AST ALT Alkaline Phosphatase Total Creatine Kinase CK-MB (CK-2) CK-MB (CK-2) Rel Index Troponin T Total Protein Albumin Triglycerides LDL Cholesterol Direct HDL Cholesterol Urine WBC (Auto) Urine Creatinine 03/25/20 03/26/20 03/26/20 20:45 05:15 06:59 WBC 17.4 H 15.6 H RBC 3.05 L 3.05 L Hgb 9.1 L 9.2 L Hct 28.2 L 27.9 L MCV MCHC RDW Lymph % (Auto) 8.9 L 8.9 L [place] % (Auto) Lymph # [place] # 1.0 H Seg Neutrophils % 84.4 H 84.8 H Seg Neuts % (Manual) Lymphocytes % (Manual) Nucleated RBC % Seg Neutrophils # 14.7 H 13.2 H Seg Neutrophils # Man Lymphocytes # (Manual) Monocytes # (Manual) Eosinophils # (Manual) PT INR Heparin Anti-Xa Level ABG pH ABG pO2 ABG HCO3 ABG O2 Saturation ABG Base Excess ABG Hemoglobin Oxyhemoglobin Sodium Potassium Chloride Carbon Dioxide BUN Creatinine Glucose POC Glucose 178 H Hemoglobin A1c Calcium Phosphorus Magnesium Ferritin AST ALT Alkaline Phosphatase Total Creatine Kinase CK-MB (CK-2) CK-MB (CK-2) Rel Index Troponin T Total Protein Albumin Triglycerides LDL Cholesterol Direct HDL Cholesterol Urine WBC (Auto) Urine Creatinine 03/26/20 03/26/20 03/26/20 06:59 07:43 11:56 WBC RBC Hgb Hct MCV MCHC RDW Lymph % (Auto) [place] % (Auto) Lymph # [place] # Seg Neutrophils % Seg Neuts % (Manual) Lymphocytes % (Manual) Nucleated RBC % Seg Neutrophils # Seg Neutrophils # Man Lymphocytes # (Manual) Monocytes # (Manual) Eosinophils # (Manual) PT INR Heparin Anti-Xa Level ABG pH ABG pO2 ABG HCO3 ABG O2 Saturation ABG Base Excess ABG Hemoglobin Oxyhemoglobin Sodium 131 L Potassium 5.8 H Chloride Carbon Dioxide 16 L BUN 42 H Creatinine 1.4 H Glucose 163 H POC Glucose 170 H 198 H Hemoglobin A1c Calcium 8.0 L Phosphorus Magnesium Ferritin AST ALT Alkaline Phosphatase Total Creatine Kinase CK-MB (CK-2) CK-MB (CK-2) Rel Index Troponin T Total Protein Albumin Triglycerides LDL Cholesterol Direct HDL Cholesterol Urine WBC (Auto) Urine Creatinine 03/26/20 03/26/20 03/26/20 13:58 16:16 21:00 WBC RBC Hgb Hct MCV MCHC RDW Lymph % (Auto) [place] % (Auto) Lymph # [place] # Seg Neutrophils % Seg Neuts % (Manual) Lymphocytes % (Manual) Nucleated RBC % Seg Neutrophils # Seg Neutrophils # Man Lymphocytes # (Manual) Monocytes # (Manual) Eosinophils # (Manual) PT INR Heparin Anti-Xa Level ABG pH ABG pO2 ABG HCO3 ABG O2 Saturation ABG Base Excess ABG Hemoglobin Oxyhemoglobin Sodium 128 L Potassium 6.0 H Chloride Carbon Dioxide 15 L BUN 45 H Creatinine 1.4 H Glucose 190 H POC Glucose 184 H 192 H Hemoglobin A1c Calcium 8.2 L Phosphorus Magnesium Ferritin AST ALT Alkaline Phosphatase Total Creatine Kinase CK-MB (CK-2) CK-MB (CK-2) Rel Index Troponin T Total Protein Albumin Triglycerides LDL Cholesterol Direct HDL Cholesterol Urine WBC (Auto) Urine Creatinine 03/27/20 03/27/20 03/27/20 08:32 11:51 14:39 WBC 22.9 H RBC 2.68 L Hgb 7.9 L Hct 24.7 L MCV MCHC RDW Lymph % (Auto) [place] % (Auto) Lymph # [place] # Seg Neutrophils % Seg Neuts % (Manual) Lymphocytes % (Manual) Nucleated RBC % Seg Neutrophils # Seg Neutrophils # Man Lymphocytes # (Manual) Monocytes # (Manual) Eosinophils # (Manual) PT INR Heparin Anti-Xa Level ABG pH ABG pO2 ABG HCO3 ABG O2 Saturation ABG Base Excess ABG Hemoglobin Oxyhemoglobin Sodium Potassium Chloride Carbon Dioxide BUN Creatinine Glucose POC Glucose 233 H 252 H Hemoglobin A1c Calcium Phosphorus Magnesium Ferritin AST ALT Alkaline Phosphatase Total Creatine Kinase CK-MB (CK-2) CK-MB (CK-2) Rel Index Troponin T Total Protein Albumin Triglycerides LDL Cholesterol Direct HDL Cholesterol Urine WBC (Auto) Urine Creatinine 03/27/20 03/27/20 03/27/20 14:39 15:19 21:35 WBC RBC Hgb Hct MCV MCHC RDW Lymph % (Auto) [place] % (Auto) Lymph # [place] # Seg Neutrophils % Seg Neuts % (Manual) Lymphocytes % (Manual) Nucleated RBC % Seg Neutrophils # Seg Neutrophils # Man Lymphocytes # (Manual) Monocytes # (Manual) Eosinophils # (Manual) PT INR Heparin Anti-Xa Level ABG pH ABG pO2 ABG HCO3 ABG O2 Saturation ABG Base Excess ABG Hemoglobin Oxyhemoglobin Sodium 133 L Potassium 5.5 H Chloride Carbon Dioxide 16 L BUN 46 H Creatinine 1.4 H Glucose 225 H POC Glucose 239 H 202 H Hemoglobin A1c Calcium 8.2 L Phosphorus Magnesium Ferritin AST ALT Alkaline Phosphatase Total Creatine Kinase CK-MB (CK-2) CK-MB (CK-2) Rel Index Troponin T Total Protein Albumin Triglycerides LDL Cholesterol Direct HDL Cholesterol Urine WBC (Auto) Urine Creatinine 03/28/20 03/28/20 03/28/20 07:39 07:39 08:36 WBC 22.4 H RBC 2.71 L Hgb 7.9 L Hct 24.5 L MCV MCHC RDW Lymph % (Auto) [place] % (Auto) Lymph # [place] # Seg Neutrophils % Seg Neuts % (Manual) 88.0 H Lymphocytes % (Manual) 5.0 L Nucleated RBC % Seg Neutrophils # Seg Neutrophils # Man 19.7 H Lymphocytes # (Manual) 1.1 L Monocytes # (Manual) 1.6 H Eosinophils # (Manual) PT INR Heparin Anti-Xa Level ABG pH ABG pO2 ABG HCO3 ABG O2 Saturation ABG Base Excess ABG Hemoglobin Oxyhemoglobin Sodium 134 L Potassium Chloride Carbon Dioxide 19 L BUN 47 H Creatinine Glucose 240 H POC Glucose 253 H Hemoglobin A1c Calcium 7.8 L Phosphorus Magnesium Ferritin AST ALT Alkaline Phosphatase Total Creatine Kinase CK-MB (CK-2) CK-MB (CK-2) Rel Index Troponin T Total Protein Albumin Triglycerides LDL Cholesterol Direct HDL Cholesterol Urine WBC (Auto) Urine Creatinine 03/28/20 03/28/20 03/28/20 11:54 17:08 21:17 WBC RBC Hgb Hct MCV MCHC RDW Lymph % (Auto) [place] % (Auto) Lymph # [place] # Seg Neutrophils % Seg Neuts % (Manual) Lymphocytes % (Manual) Nucleated RBC % Seg Neutrophils # Seg Neutrophils # Man Lymphocytes # (Manual) Monocytes # (Manual) Eosinophils # (Manual) PT INR Heparin Anti-Xa Level ABG pH ABG pO2 ABG HCO3 ABG O2 Saturation ABG Base Excess ABG Hemoglobin Oxyhemoglobin Sodium Potassium Chloride Carbon Dioxide BUN Creatinine Glucose POC Glucose 306 H 178 H 186 H Hemoglobin A1c Calcium Phosphorus Magnesium Ferritin AST ALT Alkaline Phosphatase Total Creatine Kinase CK-MB (CK-2) CK-MB (CK-2) Rel Index Troponin T Total Protein Albumin Triglycerides LDL Cholesterol Direct HDL Cholesterol Urine WBC (Auto) Urine Creatinine 03/29/20 03/29/20 03/29/20 08:32 12:04 14:19 WBC 21.5 H RBC 2.82 L Hgb 8.4 L Hct 26.1 L MCV MCHC RDW Lymph % (Auto) [place] % (Auto) Lymph # [place] # Seg Neutrophils % Seg Neuts % (Manual) 85.0 H Lymphocytes % (Manual) 11.0 L Nucleated RBC % 3.0 H Seg Neutrophils # Seg Neutrophils # Man 18.3 H Lymphocytes # (Manual) Monocytes # (Manual) Eosinophils # (Manual) 0.6 H PT INR Heparin Anti-Xa Level ABG pH ABG pO2 ABG HCO3 ABG O2 Saturation ABG Base Excess ABG Hemoglobin Oxyhemoglobin Sodium Potassium Chloride Carbon Dioxide BUN Creatinine Glucose POC Glucose 110 H 263 H Hemoglobin A1c Calcium Phosphorus Magnesium Ferritin AST ALT Alkaline Phosphatase Total Creatine Kinase CK-MB (CK-2) CK-MB (CK-2) Rel Index Troponin T Total Protein Albumin Triglycerides LDL Cholesterol Direct HDL Cholesterol Urine WBC (Auto) Urine Creatinine 03/29/20 03/29/20 03/30/20 16:17 22:57 11:00 WBC RBC Hgb Hct MCV MCHC RDW Lymph % (Auto) [place] % (Auto) Lymph # [place] # Seg Neutrophils % Seg Neuts % (Manual) Lymphocytes % (Manual) Nucleated RBC % Seg Neutrophils # Seg Neutrophils # Man Lymphocytes # (Manual) Monocytes # (Manual) Eosinophils # (Manual) PT INR Heparin Anti-Xa Level ABG pH ABG pO2 ABG HCO3 ABG O2 Saturation ABG Base Excess ABG Hemoglobin Oxyhemoglobin Sodium Potassium Chloride Carbon Dioxide BUN Creatinine Glucose POC Glucose 109 H 194 H 129 H Hemoglobin A1c Calcium Phosphorus Magnesium Ferritin AST ALT Alkaline Phosphatase Total Creatine Kinase CK-MB (CK-2) CK-MB (CK-2) Rel Index Troponin T Total Protein Albumin Triglycerides LDL Cholesterol Direct HDL Cholesterol Urine WBC (Auto) Urine Creatinine 03/30/20 03/30/20 03/31/20 15:16 21:54 04:27 WBC 15.8 H RBC 2.62 L Hgb 7.7 L Hct 24.1 L MCV MCHC RDW Lymph % (Auto) 9.4 L [place] % (Auto) Lymph # [place] # Seg Neutrophils % 84.4 H Seg Neuts % (Manual) Lymphocytes % (Manual) Nucleated RBC % Seg Neutrophils # 13.3 H Seg Neutrophils # Man Lymphocytes # (Manual) Monocytes # (Manual) Eosinophils # (Manual) PT INR Heparin Anti-Xa Level ABG pH ABG pO2 ABG HCO3 ABG O2 Saturation ABG Base Excess ABG Hemoglobin Oxyhemoglobin Sodium Potassium Chloride Carbon Dioxide BUN Creatinine Glucose POC Glucose 115 H 166 H Hemoglobin A1c Calcium Phosphorus Magnesium Ferritin AST ALT Alkaline Phosphatase Total Creatine Kinase CK-MB (CK-2) CK-MB (CK-2) Rel Index Troponin T Total Protein Albumin Triglycerides LDL Cholesterol Direct HDL Cholesterol Urine WBC (Auto) Urine Creatinine 03/31/20 03/31/20 03/31/20 04:27 07:37 11:46 WBC RBC Hgb Hct MCV MCHC RDW Lymph % (Auto) [place] % (Auto) Lymph # [place] # Seg Neutrophils % Seg Neuts % (Manual) Lymphocytes % (Manual) Nucleated RBC % Seg Neutrophils # Seg Neutrophils # Man Lymphocytes # (Manual) Monocytes # (Manual) Eosinophils # (Manual) PT INR Heparin Anti-Xa Level ABG pH ABG pO2 ABG HCO3 ABG O2 Saturation ABG Base Excess ABG Hemoglobin Oxyhemoglobin Sodium 133 L Potassium Chloride 96.6 L Carbon Dioxide 18 L BUN 75 H Creatinine 2.5 H D Glucose 129 H POC Glucose 156 H 224 H Hemoglobin A1c Calcium 8.0 L Phosphorus Magnesium Ferritin AST ALT Alkaline Phosphatase Total Creatine Kinase CK-MB (CK-2) CK-MB (CK-2) Rel Index Troponin T Total Protein Albumin Triglycerides LDL Cholesterol Direct HDL Cholesterol Urine WBC (Auto) Urine Creatinine 08/17/20 08/17/20 08/17/20 08:34 10:52 10:52 WBC 12.9 H RBC 2.75 L Hgb 8.2 L Hct 24.8 L MCV MCHC RDW Lymph % (Auto) 10.6 L [place] % (Auto) Lymph # [place] # Seg Neutrophils % 83.7 H Seg Neuts % (Manual) Lymphocytes % (Manual) Nucleated RBC % Seg Neutrophils # 10.8 H Seg Neutrophils # Man Lymphocytes # (Manual) Monocytes # (Manual) Eosinophils # (Manual) PT INR Heparin Anti-Xa Level ABG pH ABG pO2 ABG HCO3 ABG O2 Saturation ABG Base Excess ABG Hemoglobin Oxyhemoglobin Sodium 131 L Potassium Chloride 96.1 L Carbon Dioxide 17 L BUN 77 H Creatinine 2.3 H Glucose 205 H POC Glucose 110 H Hemoglobin A1c Calcium 7.9 L Phosphorus Magnesium Ferritin AST ALT Alkaline Phosphatase Total Creatine Kinase CK-MB (CK-2) CK-MB (CK-2) Rel Index Troponin T Total Protein Albumin Triglycerides LDL Cholesterol Direct HDL Cholesterol Urine WBC (Auto) Urine Creatinine 04/01/20 04/01/20 04/01/20 12:15 17:22 20:47 WBC RBC Hgb Hct MCV MCHC RDW Lymph % (Auto) [place] % (Auto) Lymph # [place] # Seg Neutrophils % Seg Neuts % (Manual) Lymphocytes % (Manual) Nucleated RBC % Seg Neutrophils # Seg Neutrophils # Man Lymphocytes # (Manual) Monocytes # (Manual) Eosinophils # (Manual) PT INR Heparin Anti-Xa Level ABG pH ABG pO2 ABG HCO3 ABG O2 Saturation ABG Base Excess ABG Hemoglobin Oxyhemoglobin Sodium Potassium Chloride Carbon Dioxide BUN Creatinine Glucose POC Glucose 201 H 219 H 156 H Hemoglobin A1c Calcium Phosphorus Magnesium Ferritin AST ALT Alkaline Phosphatase Total Creatine Kinase CK-MB (CK-2) CK-MB (CK-2) Rel Index Troponin T Total Protein Albumin Triglycerides LDL Cholesterol Direct HDL Cholesterol Urine WBC (Auto) Urine Creatinine 04/02/20 04/02/20 04/02/20 05:44 05:44 11:32 WBC 15.8 H RBC 2.81 L Hgb 8.2 L Hct 25.7 L MCV MCHC RDW Lymph % (Auto) [place] % (Auto) Lymph # [place] # 0.9 H Seg Neutrophils % 77.7 H Seg Neuts % (Manual) Lymphocytes % (Manual) Nucleated RBC % Seg Neutrophils # 12.3 H Seg Neutrophils # Man Lymphocytes # (Manual) Monocytes # (Manual) Eosinophils # (Manual) PT INR Heparin Anti-Xa Level ABG pH ABG pO2 ABG HCO3 ABG O2 Saturation ABG Base Excess ABG Hemoglobin Oxyhemoglobin Sodium 134 L Potassium Chloride Carbon Dioxide 19 L BUN 76 H Creatinine 2.0 H Glucose POC Glucose 116 H Hemoglobin A1c Calcium 8.0 L Phosphorus Magnesium Ferritin AST 291 H ALT 169 H Alkaline Phosphatase 256 H Total Creatine Kinase CK-MB (CK-2) CK-MB (CK-2) Rel Index Troponin T Total Protein 6.1 L Albumin 2.2 L Triglycerides LDL Cholesterol Direct HDL Cholesterol Urine WBC (Auto) Urine Creatinine 04/02/20 04/02/20 04/03/20 16:56 22:03 08:13 WBC RBC Hgb Hct MCV MCHC RDW Lymph % (Auto) [place] % (Auto) Lymph # [place] # Seg Neutrophils % Seg Neuts % (Manual) Lymphocytes % (Manual) Nucleated RBC % Seg Neutrophils # Seg Neutrophils # Man Lymphocytes # (Manual) Monocytes # (Manual) Eosinophils # (Manual) PT INR Heparin Anti-Xa Level ABG pH ABG pO2 ABG HCO3 ABG O2 Saturation ABG Base Excess ABG Hemoglobin Oxyhemoglobin Sodium Potassium Chloride Carbon Dioxide BUN Creatinine Glucose POC Glucose 141 H 152 H 126 H Hemoglobin A1c Calcium Phosphorus Magnesium Ferritin AST ALT Alkaline Phosphatase Total Creatine Kinase CK-MB (CK-2) CK-MB (CK-2) Rel Index Troponin T Total Protein Albumin Triglycerides LDL Cholesterol Direct HDL Cholesterol Urine WBC (Auto) Urine Creatinine 04/03/20 04/03/20 04/03/20 12:11 16:26 21:33 WBC RBC Hgb Hct MCV MCHC RDW Lymph % (Auto) [place] % (Auto) Lymph # [place] # Seg Neutrophils % Seg Neuts % (Manual) Lymphocytes % (Manual) Nucleated RBC % Seg Neutrophils # Seg Neutrophils # Man Lymphocytes # (Manual) Monocytes # (Manual) Eosinophils # (Manual) PT INR Heparin Anti-Xa Level ABG pH ABG pO2 ABG HCO3 ABG O2 Saturation ABG Base Excess ABG Hemoglobin Oxyhemoglobin Sodium Potassium Chloride Carbon Dioxide BUN Creatinine Glucose POC Glucose 139 H 164 H 147 H Hemoglobin A1c Calcium Phosphorus Magnesium Ferritin AST ALT Alkaline Phosphatase Total Creatine Kinase CK-MB (CK-2) CK-MB (CK-2) Rel Index Troponin T Total Protein Albumin Triglycerides LDL Cholesterol Direct HDL Cholesterol Urine WBC (Auto) Urine Creatinine 04/04/20 04/04/2004/04/20 04:29 04:29 11:29 WBC 12.3 H RBC 2.88 L Hgb 8.4 L Hct 26.1 L MCV MCHC RDW Lymph % (Auto) [place] % (Auto) Lymph # [place] # Seg Neutrophils % 75.4 H Seg Neuts % (Manual) Lymphocytes % (Manual) Nucleated RBC % Seg Neutrophils # 9.3 H Seg Neutrophils # Man Lymphocytes # (Manual) Monocytes # (Manual) Eosinophils # (Manual) PT INR Heparin Anti-Xa Level ABG pH ABG pO2 ABG HCO3 ABG O2 Saturation ABG Base Excess ABG Hemoglobin Oxyhemoglobin Sodium 136 L Potassium Chloride Carbon Dioxide 19 L BUN 71 H Creatinine 1.7 H Glucose POC Glucose 108 H Hemoglobin A1c Calcium 8.0 L Phosphorus Magnesium Ferritin AST 673 H ALT 252 H Alkaline Phosphatase 311 H Total Creatine Kinase CK-MB (CK-2) CK-MB (CK-2) Rel Index Troponin T Total Protein Albumin 2.2 L Triglycerides LDL Cholesterol Direct HDL Cholesterol Urine WBC (Auto) Urine Creatinine 04/04/20 04/04/20 04/05/20 16:34 20:58 03:54 WBC 13.7 H RBC 3.03 L Hgb 8.7 L Hct 27.9 L MCV MCHC 31 L RDW 15.5 H Lymph % (Auto) [place] % (Auto) Lymph # [place] # Seg Neutrophils % 78.9 H Seg Neuts % (Manual) Lymphocytes % (Manual) Nucleated RBC % Seg Neutrophils # 10.8 H Seg Neutrophils # Man Lymphocytes # (Manual) Monocytes # (Manual) Eosinophils # (Manual) PT INR Heparin Anti-Xa Level ABG pH ABG pO2 ABG HCO3 ABG O2 Saturation ABG Base Excess ABG Hemoglobin Oxyhemoglobin Sodium Potassium Chloride Carbon Dioxide BUN Creatinine Glucose POC Glucose 151 H 131 H Hemoglobin A1c Calcium Phosphorus Magnesium Ferritin AST ALT Alkaline Phosphatase Total Creatine Kinase CK-MB (CK-2) CK-MB (CK-2) Rel Index Troponin T Total Protein Albumin Triglycerides LDL Cholesterol Direct HDL Cholesterol Urine WBC (Auto) Urine Creatinine 04/05/20 04/05/20 04/05/20 03:54 15:58 15:58 WBC RBC Hgb Hct MCV MCHC RDW Lymph % (Auto) [place] % (Auto) Lymph # [place] # Seg Neutrophils % Seg Neuts % (Manual) Lymphocytes % (Manual) Nucleated RBC % Seg Neutrophils # Seg Neutrophils # Man Lymphocytes # (Manual) Monocytes # (Manual) Eosinophils # (Manual) PT INR Heparin Anti-Xa Level ABG pH ABG pO2 67.1 L ABG HCO3 26.1 H ABG O2 Saturation 93.4 L ABG Base Excess ABG Hemoglobin 9.0 L Oxyhemoglobin 91.6 L Sodium 136 L Potassium 5.5 H Chloride Carbon Dioxide 21 L BUN 79 H Creatinine 1.9 H Glucose 63 L POC Glucose 129 H Hemoglobin A1c Calcium 8.2 L Phosphorus Magnesium Ferritin AST 696 H ALT 262 H Alkaline Phosphatase 325 H Total Creatine Kinase CK-MB (CK-2) CK-MB (CK-2) Rel Index Troponin T Total Protein Albumin 2.3 L Triglycerides LDL Cholesterol Direct HDL Cholesterol Urine WBC (Auto) Urine Creatinine 04/05/20 04/06/20 04/06/20 22:33 07:14 07:14 WBC RBC Hgb Hct MCV MCHC RDW Lymph % (Auto) [place] % (Auto) Lymph # [place] # Seg Neutrophils % Seg Neuts % (Manual) Lymphocytes % (Manual) Nucleated RBC % Seg Neutrophils # Seg Neutrophils # Man Lymphocytes # (Manual) Monocytes # (Manual) Eosinophils # (Manual) PT INR Heparin Anti-Xa Level ABG pH ABG pO2 ABG HCO3 ABG O2 Saturation ABG Base Excess ABG Hemoglobin Oxyhemoglobin Sodium Potassium 5.6 H Chloride Carbon Dioxide BUN 83 H Creatinine 1.9 H Glucose 202 H POC Glucose 253 H Hemoglobin A1c Calcium Phosphorus Magnesium Ferritin 444.2 H AST 469 H ALT 237 H Alkaline Phosphatase 332 H Total Creatine Kinase CK-MB (CK-2) CK-MB (CK-2) Rel Index Troponin T Total Protein Albumin 2.2 L Triglycerides LDL Cholesterol Direct HDL Cholesterol Urine WBC (Auto) Urine Creatinine 04/06/20 04/06/20 04/06/20 08:23 12:00 13:56 WBC RBC Hgb Hct MCV MCHC RDW Lymph % (Auto) [place] % (Auto) Lymph # [place] # Seg Neutrophils % Seg Neuts % (Manual) Lymphocytes % (Manual) Nucleated RBC % Seg Neutrophils # Seg Neutrophils # Man Lymphocytes # (Manual) Monocytes # (Manual) Eosinophils # (Manual) PT 27.0 H INR 2.44 H Heparin Anti-Xa Level ABG pH ABG pO2 ABG HCO3 ABG O2 Saturation ABG Base Excess ABG Hemoglobin Oxyhemoglobin Sodium Potassium Chloride Carbon Dioxide BUN Creatinine Glucose POC Glucose 226 H 176 H Hemoglobin A1c Calcium Phosphorus Magnesium Ferritin AST ALT Alkaline Phosphatase Total Creatine Kinase CK-MB (CK-2) CK-MB (CK-2) Rel Index Troponin T Total Protein Albumin Triglycerides LDL Cholesterol Direct HDL Cholesterol Urine WBC (Auto) Urine Creatinine 04/06/20 04/07/20 04/07/20 20:45 04:58 04:58 WBC RBC Hgb Hct MCV MCHC RDW Lymph % (Auto) [place] % (Auto) Lymph # [place] # Seg Neutrophils % Seg Neuts % (Manual) Lymphocytes % (Manual) Nucleated RBC % Seg Neutrophils # Seg Neutrophils # Man Lymphocytes # (Manual) Monocytes # (Manual) Eosinophils # (Manual) PT 30.9 H INR 2.89 H Heparin Anti-Xa Level ABG pH ABG pO2 ABG HCO3 ABG O2 Saturation ABG Base Excess ABG Hemoglobin Oxyhemoglobin Sodium Potassium 6.0 H Chloride Carbon Dioxide BUN 85 H Creatinine 2.1 H Glucose 177 H POC Glucose 139 H Hemoglobin A1c Calcium Phosphorus Magnesium Ferritin AST 351 H ALT 215 H Alkaline Phosphatase 332 H Total Creatine Kinase CK-MB (CK-2) CK-MB (CK-2) Rel Index Troponin T Total Protein Albumin 2.7 L Triglycerides LDL Cholesterol Direct HDL Cholesterol Urine WBC (Auto) Urine Creatinine 04/07/20 04/07/20 04/08/20 07:53 11:51 04:44 WBC 11.7 H RBC 3.07 L Hgb 9.1 L Hct 28.9 L MCV MCHC RDW 16.8 H Lymph % (Auto) 12.4 L [place] % (Auto) Lymph # [place] # Seg Neutrophils % 83.3 H Seg Neuts % (Manual) Lymphocytes % (Manual) Nucleated RBC % Seg Neutrophils # 9.7 H Seg Neutrophils # Man Lymphocytes # (Manual) Monocytes # (Manual) Eosinophils # (Manual) PT INR Heparin Anti-Xa Level ABG pH ABG pO2 ABG HCO3 ABG O2 Saturation ABG Base Excess ABG Hemoglobin Oxyhemoglobin Sodium Potassium Chloride Carbon Dioxide BUN Creatinine Glucose POC Glucose 167 H 120 H Hemoglobin A1c Calcium Phosphorus Magnesium Ferritin AST ALT Alkaline Phosphatase Total Creatine Kinase CK-MB (CK-2) CK-MB (CK-2) Rel Index Troponin T Total Protein Albumin Triglycerides LDL Cholesterol Direct HDL Cholesterol Urine WBC (Auto) Urine Creatinine 04/08/20 04/08/20 04/08/20 04:44 07:19 08:43 WBC RBC Hgb Hct MCV MCHC RDW Lymph % (Auto) [place] % (Auto) Lymph # [place] # Seg Neutrophils % Seg Neuts % (Manual) Lymphocytes % (Manual) Nucleated RBC % Seg Neutrophils # Seg Neutrophils # Man Lymphocytes # (Manual) Monocytes # (Manual) Eosinophils # (Manual) PT INR Heparin Anti-Xa Level ABG pH ABG pO2 ABG HCO3 ABG O2 Saturation ABG Base Excess ABG Hemoglobin Oxyhemoglobin Sodium Potassium 6.3 H* Chloride Carbon Dioxide 21 L BUN 89 H Creatinine 1.9 H Glucose 63 L POC Glucose 65 L 168 H Hemoglobin A1c Calcium Phosphorus Magnesium Ferritin AST 370 H ALT 211 H Alkaline Phosphatase 320 H Total Creatine Kinase CK-MB (CK-2) CK-MB (CK-2) Rel Index Troponin T Total Protein Albumin 2.6 L Triglycerides LDL Cholesterol Direct HDL Cholesterol Urine WBC (Auto) Urine Creatinine 04/08/20 04/08/20 04/08/20 12:53 16:38 21:47 WBC RBC Hgb Hct MCV MCHC RDW Lymph % (Auto) [place] % (Auto) Lymph # [place] # Seg Neutrophils % Seg Neuts % (Manual) Lymphocytes % (Manual) Nucleated RBC % Seg Neutrophils # Seg Neutrophils # Man Lymphocytes # (Manual) Monocytes # (Manual) Eosinophils # (Manual) PT INR Heparin Anti-Xa Level ABG pH ABG pO2 ABG HCO3 ABG O2 Saturation ABG Base Excess ABG Hemoglobin Oxyhemoglobin Sodium Potassium 6.0 H Chloride Carbon Dioxide BUN 90 H Creatinine 2.1 H Glucose 124 H POC Glucose 129 H 118 H Hemoglobin A1c Calcium Phosphorus Magnesium Ferritin AST ALT Alkaline Phosphatase Total Creatine Kinase CK-MB (CK-2) CK-MB (CK-2) Rel Index Troponin T Total Protein Albumin Triglycerides LDL Cholesterol Direct HDL Cholesterol Urine WBC (Auto) Urine Creatinine 04/09/20 04/09/20 04/09/20 03:45 08:04 19:10 WBC RBC Hgb Hct MCV MCHC RDW Lymph % (Auto) [place] % (Auto) Lymph # [place] # Seg Neutrophils % Seg Neuts % (Manual) Lymphocytes % (Manual) Nucleated RBC % Seg Neutrophils # Seg Neutrophils # Man Lymphocytes # (Manual) Monocytes # (Manual) Eosinophils # (Manual) PT INR Heparin Anti-Xa Level ABG pH 7.304 L ABG pO2 72.2 L ABG HCO3 ABG O2 Saturation 93.7 L ABG Base Excess -3.3 L ABG Hemoglobin 8.9 L Oxyhemoglobin 91.8 L Sodium Potassium 6.6 H* 6.5 H* Chloride Carbon Dioxide 21 L BUN 99 H 100 H Creatinine 2.2 H 2.3 H Glucose POC Glucose Hemoglobin A1c Calcium 8.2 L Phosphorus Magnesium Ferritin AST ALT Alkaline Phosphatase Total Creatine Kinase CK-MB (CK-2) CK-MB (CK-2) Rel Index Troponin T Total Protein Albumin Triglycerides LDL Cholesterol Direct HDL Cholesterol Urine WBC (Auto) Urine Creatinine 04/10/20 04/10/20 04/10/20 05:48 05:48 08:53 WBC RBC 3.01 L Hgb 8.9 L Hct 28.4 L MCV 95 H MCHC 31 L RDW 17.6 H Lymph % (Auto) 11.4 L [place] % (Auto) Lymph # 1.1 L [place] # Seg Neutrophils % 81.1 H Seg Neuts % (Manual) Lymphocytes % (Manual) Nucleated RBC % Seg Neutrophils # 8.1 H Seg Neutrophils # Man Lymphocytes # (Manual) Monocytes # (Manual) Eosinophils # (Manual) PT INR Heparin Anti-Xa Level ABG pH ABG pO2 ABG HCO3 ABG O2 Saturation ABG Base Excess ABG Hemoglobin Oxyhemoglobin Sodium Potassium 5.2 H Chloride Carbon Dioxide BUN 104 H Creatinine 2.2 H Glucose 129 H POC Glucose 110 H Hemoglobin A1c Calcium Phosphorus Magnesium 2.80 H Ferritin AST 502 H ALT 249 H Alkaline Phosphatase 323 H Total Creatine Kinase CK-MB (CK-2) CK-MB (CK-2) Rel Index Troponin T Total Protein Albumin 2.5 L Triglycerides LDL Cholesterol Direct HDL Cholesterol Urine WBC (Auto) Urine Creatinine 04/10/20 04/10/20 04/10/20 11:42 16:05 21:35 WBC RBC Hgb Hct MCV MCHC RDW Lymph % (Auto) [place] % (Auto) Lymph # [place] # Seg Neutrophils % Seg Neuts % (Manual) Lymphocytes % (Manual) Nucleated RBC % Seg Neutrophils # Seg Neutrophils # Man Lymphocytes # (Manual) Monocytes # (Manual) Eosinophils # (Manual) PT INR Heparin Anti-Xa Level ABG pH ABG pO2 ABG HCO3 ABG O2 Saturation ABG Base Excess ABG Hemoglobin Oxyhemoglobin Sodium Potassium Chloride Carbon Dioxide BUN Creatinine Glucose POC Glucose 135 H 137 H 151 H Hemoglobin A1c Calcium Phosphorus Magnesium Ferritin AST ALT Alkaline Phosphatase Total Creatine Kinase CK-MB (CK-2) CK-MB (CK-2) Rel Index Troponin T Total Protein Albumin Triglycerides LDL Cholesterol Direct HDL Cholesterol Urine WBC (Auto) Urine Creatinine 04/11/20 04/11/20 04/11/20 06:26 06:26 06:26 WBC RBC 2.89 L Hgb 8.6 L Hct 27.4 L MCV 95 H MCHC 31 L RDW 17.5 H Lymph % (Auto) 9.9 L [place] % (Auto) Lymph # 1.0 L [place] # Seg Neutrophils % 85.7 H Seg Neuts % (Manual) Lymphocytes % (Manual) Nucleated RBC % Seg Neutrophils # 8.8 H Seg Neutrophils # Man Lymphocytes # (Manual) Monocytes # (Manual) Eosinophils # (Manual) PT 24.0 H INR 2.10 H Heparin Anti-Xa Level ABG pH ABG pO2 ABG HCO3 ABG O2 Saturation ABG Base Excess ABG Hemoglobin Oxyhemoglobin Sodium 146 H Potassium 5.3 H Chloride 108.2 H Carbon Dioxide BUN 109 H Creatinine 2.1 H Glucose 160 H POC Glucose Hemoglobin A1c Calcium Phosphorus Magnesium Ferritin AST 298 H ALT 207 H Alkaline Phosphatase 274 H Total Creatine Kinase CK-MB (CK-2) CK-MB (CK-2) Rel Index Troponin T Total Protein Albumin 2.5 L Triglycerides LDL Cholesterol Direct HDL Cholesterol Urine WBC (Auto) Urine Creatinine 04/11/20 04/11/20 04/11/20 07:57 11:33 16:07 WBC RBC Hgb Hct MCV MCHC RDW Lymph % (Auto) [place] % (Auto) Lymph # [place] # Seg Neutrophils % Seg Neuts % (Manual) Lymphocytes % (Manual) Nucleated RBC % Seg Neutrophils # Seg Neutrophils # Man Lymphocytes # (Manual) Monocytes # (Manual) Eosinophils # (Manual) PT INR Heparin Anti-Xa Level ABG pH ABG pO2 ABG HCO3 ABG O2 Saturation ABG Base Excess ABG Hemoglobin Oxyhemoglobin Sodium Potassium Chloride Carbon Dioxide BUN Creatinine Glucose POC Glucose 170 H 167 H 140 H Hemoglobin A1c Calcium Phosphorus Magnesium Ferritin AST ALT Alkaline Phosphatase Total Creatine Kinase CK-MB (CK-2) CK-MB (CK-2) Rel Index Troponin T Total Protein Albumin Triglycerides LDL Cholesterol Direct HDL Cholesterol Urine WBC (Auto) Urine Creatinine 04/11/20 04/11/20 04/11/20 16:30 16:30 16:50 WBC RBC Hgb Hct MCV MCHC RDW Lymph % (Auto) [place] % (Auto) Lymph # [place] # Seg Neutrophils % Seg Neuts % (Manual) Lymphocytes % (Manual) Nucleated RBC % Seg Neutrophils # Seg Neutrophils # Man Lymphocytes # (Manual) Monocytes # (Manual) Eosinophils # (Manual) PT INR Heparin Anti-Xa Level ABG pH 7.325 L ABG pO2 304.4 H ABG HCO3 ABG O2 Saturation 99.5 H ABG Base Excess -4.4 L ABG Hemoglobin 10.9 L Oxyhemoglobin Sodium Potassium Chloride Carbon Dioxide BUN Creatinine Glucose POC Glucose Hemoglobin A1c Calcium Phosphorus Magnesium Ferritin AST ALT Alkaline Phosphatase Total Creatine Kinase CK-MB (CK-2) CK-MB (CK-2) Rel Index Troponin T Total Protein Albumin Triglycerides LDL Cholesterol Direct HDL Cholesterol Urine WBC (Auto) 16.0 H Urine Creatinine 60.0 H 04/11/20 04/11/20 04/11/20 18:17 18:17 18:57 WBC RBC 2.71 L Hgb 7.9 L Hct 26.1 L MCV 96 H MCHC 30 L RDW 18.3 H Lymph % (Auto) [place] % (Auto) Lymph # [place] # Seg Neutrophils % Seg Neuts % (Manual) 89.0 H Lymphocytes % (Manual) 7.0 L Nucleated RBC % Seg Neutrophils # Seg Neutrophils # Man 8.8 H Lymphocytes # (Manual) 0.7 L Monocytes # (Manual) Eosinophils # (Manual) PT INR Heparin Anti-Xa Level ABG pH ABG pO2 ABG HCO3 ABG O2 Saturation ABG Base Excess ABG Hemoglobin Oxyhemoglobin Sodium 146 H Potassium 5.8 H Chloride 107.5 H Carbon Dioxide 21 L BUN 111 H Creatinine 2.2 H Glucose 176 H POC Glucose 199 H Hemoglobin A1c Calcium Phosphorus 7.40 H Magnesium 2.90 H Ferritin AST 230 H ALT 163 H Alkaline Phosphatase 236 H Total Creatine Kinase 351 H CK-MB (CK-2) CK-MB (CK-2) Rel Index Troponin T 3.950 H* Total Protein 5.7 L Albumin 2.1 L Triglycerides LDL Cholesterol Direct HDL Cholesterol 19 L Urine WBC (Auto) Urine Creatinine 04/11/20 04/12/20 04/12/20 21:21 01:41 04:45 WBC RBC Hgb Hct MCV MCHC RDW Lymph % (Auto) [place] % (Auto) Lymph # [place] # Seg Neutrophils % Seg Neuts % (Manual) Lymphocytes % (Manual) Nucleated RBC % Seg Neutrophils # Seg Neutrophils # Man Lymphocytes # (Manual) Monocytes # (Manual) Eosinophils # (Manual) PT INR Heparin Anti-Xa Level ABG pH 7.451 H ABG pO2 ABG HCO3 ABG O2 Saturation ABG Base Excess ABG Hemoglobin 6.2 L Oxyhemoglobin Sodium 147 H Potassium 6.0 H Chloride 111.8 H Carbon Dioxide 21 L BUN 117 H Creatinine 2.6 H Glucose 201 H POC Glucose 248 H Hemoglobin A1c Calcium 8.0 L Phosphorus Magnesium Ferritin AST ALT Alkaline Phosphatase Total Creatine Kinase CK-MB (CK-2) CK-MB (CK-2) Rel Index Troponin T Total Protein Albumin Triglycerides LDL Cholesterol Direct HDL Cholesterol Urine WBC (Auto) Urine Creatinine 04/12/20 04/12/20 04/12/20 07:22 07:22 07:22 WBC 12.1 H RBC 2.96 L Hgb 8.7 L Hct 28.1 L MCV 95 H MCHC 31 L RDW 17.7 H Lymph % (Auto) 7.1 L [place] % (Auto) Lymph # 0.9 L [place] # Seg Neutrophils % 85.8 H Seg Neuts % (Manual) Lymphocytes % (Manual) Nucleated RBC % Seg Neutrophils # 10.4 H Seg Neutrophils # Man Lymphocytes # (Manual) Monocytes # (Manual) Eosinophils # (Manual) PT 22.9 H INR 1.99 H Heparin Anti-Xa Level ABG pH ABG pO2 ABG HCO3 ABG O2 Saturation ABG Base Excess ABG Hemoglobin Oxyhemoglobin Sodium 147 H Potassium 5.2 H Chloride 109.8 H Carbon Dioxide 20 L BUN 120 H Creatinine 2.8 H Glucose 158 H POC Glucose Hemoglobin A1c Calcium Phosphorus Magnesium 3.00 H Ferritin AST 195 H ALT 162 H Alkaline Phosphatase 244 H Total Creatine Kinase CK-MB (CK-2) CK-MB (CK-2) Rel Index Troponin T Total Protein 5.9 L Albumin 2.4 L Triglycerides LDL Cholesterol Direct HDL Cholesterol Urine WBC (Auto) Urine Creatinine 04/12/20 11:54 WBC RBC Hgb Hct MCV MCHC RDW Lymph % (Auto) [place] % (Auto) Lymph # [place] # Seg Neutrophils % Seg Neuts % (Manual) Lymphocytes % (Manual) Nucleated RBC % Seg Neutrophils # Seg Neutrophils # Man Lymphocytes # (Manual) Monocytes # (Manual) Eosinophils # (Manual) PT INR Heparin Anti-Xa Level ABG pH ABG pO2 ABG HCO3 ABG O2 Saturation ABG Base Excess ABG Hemoglobin Oxyhemoglobin Sodium Potassium Chloride Carbon Dioxide BUN Creatinine Glucose POC Glucose 213 H Hemoglobin A1c Calcium Phosphorus Magnesium Ferritin AST ALT Alkaline Phosphatase Total Creatine Kinase CK-MB (CK-2) CK-MB (CK-2) Rel Index Troponin T Total Protein Albumin Triglycerides LDL Cholesterol Direct HDL Cholesterol Urine WBC (Auto) Urine Creatinine Allied health notes reviewed: nursing
--- NOTE | 2020-04-12 13:35 | Progress Note ---
Assessment and Plan Cultures: wound culture: normal skin stan A/P: 54-year-old male with prior CVA, hypertension, diabetes, coronary artery disease, history of DVT and PE, peripheral vascular disease who was admitted to the hospital with a cold left lower extremity. 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 CXR 04/08/2020 with almost complete opacification of left hemithorax. #Left BKA stump drainage: Vascular is following. No fever. Would culture with skin stan. Serous drainage from Left BKA stump, ?mild cellulitis. Short course of abx planned. #Peripheral vascular disease #Diabetes mellitus, uncontrolled: Maintain glycemic control #Acute kidney injury: Renally dose antibiotics #Elevated LFTs /transaminitis: Question of cholecystitis. Unable to perform a HIDA since he could not lay flat. GI and surgery following. #Acute encephalopathy: CT head with late subacute infarction in [employer] territory. Recs: continue Cefepime + Vancomycin, renally dosed, original end date was today, however with CODE BLUE and pressor requirements, will extend overall poor prognosis Chris Brower MD, FACP [facility] C: [phone] O: [phone] F: [phone] Subjective Date of service: 04/12/20 Principal diagnosis: Acute limb ischemia; STARR; COPD; Ac hypoxemic resp failure; DM II; NSTEMI Interval history: s/p cardiac arrest yesterday. On pressors. Intubated, on the vent. Objective - Exam Narrative Exam: Physical Exam: Constitutional: intubated, on the vent Head, Ears, Nose: Normocephalic, atraumatic. External ears, nose normal Eyes: Conjunctivae/corneas clear. No icterus. No ptosis. Neck: intubated Cardiovascular: S1, S2 normal. Respiratory: AE fair b/l GI: Soft, non-tender; bowel sounds normal. No peritoneal signs Musculoskeletal: Left BKA stump in dressing Skin: No rash or abscess Hem/Lymphatic: No palpable cervical or supraclavicular nodes. No lymphangitis Psych: No agitation Neurological: intubated, unresponsive, on the vent - Constitutional Vitals: Vital Signs Temp Pulse Resp BP Pulse Ox 97.7 F 74 17 94/47 100 04/12/20 11:54 04/12/20 13:21 04/12/20 13:21 04/12/20 13:21 04/12/20 13:21 Temperature -Last 24 Hours Temperature 97.7 F Temperature 98.3 F Temperature 98.3 F Temperature 97.6 F Temperature 97.5 F - Labs CBC & Chem 7: 04/12/20 07:22 04/12/20 07:22 Labs: Abnormal lab results 04/11/20 04/11/20 04/11/20 Range/Units 16:07 16:30 16:30 WBC (4.5-11.0) K/mm3 RBC (3.65-5.03) M/mm3 Hgb (11.8-15.2) gm/dl Hct (35.5-45.6) % MCV (84-94) fl MCHC (32-34) % RDW (13.2-15.2) % Lymph % (Auto) (13.4-35.0) % Lymph # (1.2-5.4) K/mm3 Seg Neutrophils % (40.0-70.0) % Seg Neuts % (Manual) (40.0-70.0) % Lymphocytes % (Manual) (13.4-35.0) % Seg Neutrophils # (1.8-7.7) K/mm3 Seg Neutrophils # Man (1.8-7.7) K/mm3 Lymphocytes # (Manual) (1.2-5.4) K/mm3 PT (12.2-14.9) Sec. INR (0.87-1.13) ABG pH (7.350-7.450) pH Units ABG pO2 (80.0-90.0) mm Hg ABG O2 Saturation (95.0-99.0) % ABG Base Excess (-2.0-3.0) mmol/L ABG Hemoglobin (14.0-18.0) gm/dl Sodium (137-145) mmol/L Potassium (3.6-5.0) mmol/L Chloride (98-107) mmol/L Carbon Dioxide (22-30) mmol/L BUN (9-20) mg/dL Creatinine (0.8-1.3) mg/dL Glucose (75-100) mg/dL POC Glucose 140 H (70-105) Calcium (8.4-10.2) mg/dL Phosphorus (2.5-4.5) mg/dL Magnesium (1.7-2.3) mg/dL AST (5-40) units/L ALT (7-56) units/L Alkaline Phosphatase (35-129) units/L Total Creatine Kinase (55-170) units/L Troponin T (0.00-0.029) ng/mL Total Protein (6.3-8.2) g/dL Albumin (3.9-5) g/dL HDL Cholesterol (40-59) mg/dL Urine WBC (Auto) 16.0 H (0.0-6.0) /HPF Urine Creatinine 60.0 H (0.1-20.0) mg/dL 04/11/20 04/11/20 04/11/20 Range/Units 16:50 18:17 18:17 WBC (4.5-11.0) K/mm3 RBC 2.71 L (3.65-5.03) M/mm3 Hgb 7.9 L (11.8-15.2) gm/dl Hct 26.1 L (35.5-45.6) % MCV 96 H (84-94) fl MCHC 30 L (32-34) % RDW 18.3 H (13.2-15.2) % Lymph % (Auto) (13.4-35.0) % Lymph # (1.2-5.4) K/mm3 Seg Neutrophils % (40.0-70.0) % Seg Neuts % (Manual) 89.0 H (40.0-70.0) % Lymphocytes % (Manual) 7.0 L (13.4-35.0) % Seg Neutrophils # (1.8-7.7) K/mm3 Seg Neutrophils # Man 8.8 H (1.8-7.7) K/mm3 Lymphocytes # (Manual) 0.7 L (1.2-5.4) K/mm3 PT (12.2-14.9) Sec. INR (0.87-1.13) ABG pH 7.325 L (7.350-7.450) pH Units ABG pO2 304.4 H (80.0-90.0) mm Hg ABG O2 Saturation 99.5 H (95.0-99.0) % ABG Base Excess -4.4 L (-2.0-3.0) mmol/L ABG Hemoglobin 10.9 L (14.0-18.0) gm/dl Sodium 146 H (137-145) mmol/L Potassium 5.8 H (3.6-5.0) mmol/L Chloride 107.5 H (98-107) mmol/L Carbon Dioxide 21 L (22-30) mmol/L BUN 111 H (9-20) mg/dL Creatinine 2.2 H (0.8-1.3) mg/dL Glucose 176 H (75-100) mg/dL POC Glucose (70-105) Calcium (8.4-10.2) mg/dL Phosphorus 7.40 H (2.5-4.5) mg/dL Magnesium 2.90 H (1.7-2.3) mg/dL AST 230 H (5-40) units/L ALT 163 H (7-56) units/L Alkaline Phosphatase 236 H (35-129) units/L Total Creatine Kinase 351 H (55-170) units/L Troponin T 3.950 H* (0.00-0.029) ng/mL Total Protein 5.7 L (6.3-8.2) g/dL Albumin 2.1 L (3.9-5) g/dL HDL Cholesterol 19 L (40-59) mg/dL Urine WBC (Auto) (0.0-6.0) /HPF Urine Creatinine (0.1-20.0) mg/dL 04/11/20 04/11/20 04/12/20 Range/Units 18:57 21:21 01:41 WBC (4.5-11.0) K/mm3 RBC (3.65-5.03) M/mm3 Hgb (11.8-15.2) gm/dl Hct (35.5-45.6) % MCV (84-94) fl MCHC (32-34) % RDW (13.2-15.2) % Lymph % (Auto) (13.4-35.0) % Lymph # (1.2-5.4) K/mm3 Seg Neutrophils % (40.0-70.0) % Seg Neuts % (Manual) (40.0-70.0) % Lymphocytes % (Manual) (13.4-35.0) % Seg Neutrophils # (1.8-7.7) K/mm3 Seg Neutrophils # Man (1.8-7.7) K/mm3 Lymphocytes # (Manual) (1.2-5.4) K/mm3 PT (12.2-14.9) Sec. INR (0.87-1.13) ABG pH (7.350-7.450) pH Units ABG pO2 (80.0-90.0) mm Hg ABG O2 Saturation (95.0-99.0) % ABG Base Excess (-2.0-3.0) mmol/L ABG Hemoglobin (14.0-18.0) gm/dl Sodium 147 H (137-145) mmol/L Potassium 6.0 H (3.6-5.0) mmol/L Chloride 111.8 H (98-107) mmol/L Carbon Dioxide 21 L (22-30) mmol/L BUN 117 H (9-20) mg/dL Creatinine 2.6 H (0.8-1.3) mg/dL Glucose 201 H (75-100) mg/dL POC Glucose 199 H 248 H (70-105) Calcium 8.0 L (8.4-10.2) mg/dL Phosphorus (2.5-4.5) mg/dL Magnesium (1.7-2.3) mg/dL AST (5-40) units/L ALT (7-56) units/L Alkaline Phosphatase (35-129) units/L Total Creatine Kinase (55-170) units/L Troponin T (0.00-0.029) ng/mL Total Protein (6.3-8.2) g/dL Albumin (3.9-5) g/dL HDL Cholesterol (40-59) mg/dL Urine WBC (Auto) (0.0-6.0) /HPF Urine Creatinine (0.1-20.0) mg/dL 04/12/20 04/12/20 04/12/20 Range/Units 04:45 07:22 07:22 WBC 12.1 H (4.5-11.0) K/mm3 RBC 2.96 L (3.65-5.03) M/mm3 Hgb 8.7 L (11.8-15.2) gm/dl Hct 28.1 L (35.5-45.6) % MCV 95 H (84-94) fl MCHC 31 L (32-34) % RDW 17.7 H (13.2-15.2) % Lymph % (Auto) 7.1 L (13.4-35.0) % Lymph # 0.9 L (1.2-5.4) K/mm3 Seg Neutrophils % 85.8 H (40.0-70.0) % Seg Neuts % (Manual) (40.0-70.0) % Lymphocytes % (Manual) (13.4-35.0) % Seg Neutrophils # 10.4 H (1.8-7.7) K/mm3 Seg Neutrophils # Man (1.8-7.7) K/mm3 Lymphocytes # (Manual) (1.2-5.4) K/mm3 PT 22.9 H (12.2-14.9) Sec. INR 1.99 H (0.87-1.13) ABG pH 7.451 H (7.350-7.450) pH Units ABG pO2 (80.0-90.0) mm Hg ABG O2 Saturation (95.0-99.0) % ABG Base Excess (-2.0-3.0) mmol/L ABG Hemoglobin 6.2 L (14.0-18.0) gm/dl Sodium (137-145) mmol/L Potassium (3.6-5.0) mmol/L Chloride (98-107) mmol/L Carbon Dioxide (22-30) mmol/L BUN (9-20) mg/dL Creatinine (0.8-1.3) mg/dL Glucose (75-100) mg/dL POC Glucose (70-105) Calcium (8.4-10.2) mg/dL Phosphorus (2.5-4.5) mg/dL Magnesium (1.7-2.3) mg/dL AST (5-40) units/L ALT (7-56) units/L Alkaline Phosphatase (35-129) units/L Total Creatine Kinase (55-170) units/L Troponin T (0.00-0.029) ng/mL Total Protein (6.3-8.2) g/dL Albumin (3.9-5) g/dL HDL Cholesterol (40-59) mg/dL Urine WBC (Auto) (0.0-6.0) /HPF Urine Creatinine (0.1-20.0) mg/dL 04/12/20 04/12/20 Range/Units 07:22 11:54 WBC (4.5-11.0) K/mm3 RBC (3.65-5.03) M/mm3 Hgb (11.8-15.2) gm/dl Hct (35.5-45.6) % MCV (84-94) fl MCHC (32-34) % RDW (13.2-15.2) % Lymph % (Auto) (13.4-35.0) % Lymph # (1.2-5.4) K/mm3 Seg Neutrophils % (40.0-70.0) % Seg Neuts % (Manual) (40.0-70.0) % Lymphocytes % (Manual) (13.4-35.0) % Seg Neutrophils # (1.8-7.7) K/mm3 Seg Neutrophils # Man (1.8-7.7) K/mm3 Lymphocytes # (Manual) (1.2-5.4) K/mm3 PT (12.2-14.9) Sec. INR (0.87-1.13) ABG pH (7.350-7.450) pH Units ABG pO2 (80.0-90.0) mm Hg ABG O2 Saturation (95.0-99.0) % ABG Base Excess (-2.0-3.0) mmol/L ABG Hemoglobin (14.0-18.0) gm/dl Sodium 147 H (137-145) mmol/L Potassium 5.2 H (3.6-5.0) mmol/L Chloride 109.8 H (98-107) mmol/L Carbon Dioxide 20 L (22-30) mmol/L BUN 120 H (9-20) mg/dL Creatinine 2.8 H (0.8-1.3) mg/dL Glucose 158 H (75-100) mg/dL POC Glucose 213 H (70-105) Calcium (8.4-10.2) mg/dL Phosphorus (2.5-4.5) mg/dL Magnesium 3.00 H (1.7-2.3) mg/dL AST 195 H (5-40) units/L ALT 162 H (7-56) units/L Alkaline Phosphatase 244 H (35-129) units/L Total Creatine Kinase (55-170) units/L Troponin T (0.00-0.029) ng/mL Total Protein 5.9 L (6.3-8.2) g/dL Albumin 2.4 L (3.9-5) g/dL HDL Cholesterol (40-59) mg/dL Urine WBC (Auto) (0.0-6.0) /HPF Urine Creatinine (0.1-20.0) mg/dL
--- NOTE | 2020-04-12 15:40 | Progress Note ---
Assessment and Plan Patient is a 54 y/o man w/ a h/o CVA w/ no residual deficits, HTN, DM, HLD, CAD s/p CABG, h/o DVT w/ PE, COPD, STARR. He presented on 03/18/20 w/ left foot pain and discoloration, and underwent revascularization of left foot followed by left BK A. Patient was also found to have NSTEMI and later developed DYLON, transaminitis, anemia, hypotension, and sepsis. On 04/08/20, patient was noted to be lethargic, for which a CT head was ordered, which revealed subacute stroke in left parietal region. According to the patient's clinical findings, it is likely that he has had a stroke. Patient coded on 04/11/20, was given CPR and returned spontaneous circulation. Patient likely has anoxic brain injury after cardiac arrest. Plan: 1. Stroke: - MRI brain: left parietal infarct noted. - MRA head/neck: no significant stenosis noted. - CUS: no significant stenosis. - CT head: Subacute infarct noted in left parietal lobe. - Echo: EF 30-35%, LA normal size. bubble study not performed. - Cont. Plavix. - Cont. statin. LDL goal <70 - Telemetry monitoring while in house - PT/OT/ST - DVT Ppx: Recommend lovenox - Given that patient has a subacute stroke on CT head, there is a risk of hemorrhagic transformation given that patient is on anti-coagulation. If the indication is active DVT/PE, then benefit of anti-coagulation in reducing risk of propogation of DVT/PE outweighs risk of hemorrhagic transformation of stroke, as PE has high risk of causing mortality. However, if patient does not have am active DVT/PE, then would recommend holding Eliquis for at least 7 days, given recent stroke, as well as elevated INR, to reduce risk of hemorrhagic conversion. Will defer to primary and vascular surgery teams regarding indication of anti-coagulation. Discussed with primary team, who mentioned that vascular surgery had placed patient on anti-coagulation. 2. Anoxic brain injury: - Patient coded on 04/11/20. - Patient is not brain , given intact cough reflex. - Will obtain CT head to assess extent of anoxic brain injury, and also monitor neurologic exam. Difficult to assess prognosis at this time, as cardiac arrest is recent. - Pending. - Continue supportive care per primary team. 2. Hypertension: - Recommend BP goal of normotension, as it has been >48 hours since symptom onset. 3. Metabolic Encephalopathy - In setting of DYLON, transaminitis, anemia, hypotension, and sepsis - Continue to correct metabolic abnormalities and infections per primary team. - Will sign off, as I am not covering neurology service over the weekend. Please consult neurologist covering the service over the weekend for further neurologic monitoring and management, if felt to be necessary by primary team. If in-house neurologist is not available, recommend transferring patient to facility where neurology service is available for further management. Thank you for allowing me to take part in the care of this patient. Angel Duran MD Neurology This clinical encounter was provided via live telemedicine platform. Consultative service was provided for neurology to support local providers. The Acute Teleneurology team should be contacted with any neurologic worsening or clinical changes, new test results, or new patient history that is reported to or discovered by the local team following completion of the teleneurology consultation, specifically that which has the potential to impact the consultative recommendations. Patient/Family was informed the Neurology Consult would happen via TeleHealth consult by way of interactive audio and video telecommunications and consented to receiving care in this manner. Due to the potential for life-threatening deterioration due to underlying neurologic illness, and limited resources available for patient care, telemedicine was used as means of patient care. Telemedicine consultation is limited in the extent of physical exam that can be virtually provided. Time spent evaluating patient includes time for face to face visit via telemedicine, review of medical records, imaging studies and discussion of findings with providers, the patient and/or family. Subjective Date of service: 04/12/20 Principal diagnosis: Anoxic brain injury, stroke Interval history: Patient is on pressor support today. Objective - Exam Narrative Exam: Patient intubated, comatose. Pupils pinpoint and nonreactive, absent corneal/VOR. Intact cough. No w/d in any extremities to pain. Left BKA noted. - Vital Sign Vital Signs - 12hr 04/12/20 04/12/20 04/12/20 03:40 03:50 04:00 Temperature Pulse Rate 83 82 83 Pulse Rate [ Anterior Bilateral Throughout] Pulse Rate [ 88 Apical] Pulse Rate [ 88 From Monitor] Respiratory 16 16 12 Rate Respiratory Rate [Anterior Bilateral Throughout] Blood Pressure 94/58 91/57 88/56 O2 Sat by Pulse 100 100 99 Oximetry 04/12/20 04/12/20 04/12/20 04:10 04:20 04:30 Temperature Pulse Rate 82 90 84 Pulse Rate [ Anterior Bilateral Throughout] Pulse Rate [ Apical] Pulse Rate [ From Monitor] Respiratory 14 12 11 L Rate Respiratory Rate [Anterior Bilateral Throughout] Blood Pressure 94/58 91/61 108/75 O2 Sat by Pulse 99 100 99 Oximetry 04/12/20 04/12/20 04/12/20 04:40 04:41 04:50 Temperature Pulse Rate 83 84 85 Pulse Rate [ Anterior Bilateral Throughout] Pulse Rate [ Apical] Pulse Rate [ From Monitor] Respiratory 12 14 Rate Respiratory Rate [Anterior Bilateral Throughout] Blood Pressure 108/75 108/75 108/85 O2 Sat by Pulse 100 100 100 Oximetry 04/12/20 04/12/20 04/12/20 05:00 05:10 05:20 Temperature Pulse Rate 85 91 H 86 Pulse Rate [ Anterior Bilateral Throughout] Pulse Rate [ Apical] Pulse Rate [ From Monitor] Respiratory 14 15 14 Rate Respiratory Rate [Anterior Bilateral Throughout] Blood Pressure 108/85 108/85 95/71 O2 Sat by Pulse 100 100 100 Oximetry 04/12/20 04/12/20 04/12/20 05:30 05:40 05:50 Temperature Pulse Rate 78 85 79 Pulse Rate [ Anterior Bilateral Throughout] Pulse Rate [ Apical] Pulse Rate [ From Monitor] Respiratory 15 16 15 Rate Respiratory Rate [Anterior Bilateral Throughout] Blood Pressure 93/67 99/68 98/67 O2 Sat by Pulse 99 100 99 Oximetry 04/12/20 04/12/20 04/12/20 06:00 06:11 06:21 Temperature Pulse Rate 77 93 H 96 H Pulse Rate [ Anterior Bilateral Throughout] Pulse Rate [ Apical] Pulse Rate [ From Monitor] Respiratory 17 16 17 Rate Respiratory Rate [Anterior Bilateral Throughout] Blood Pressure 98/67 98/67 O2 Sat by Pulse 100 99 Oximetry 04/12/20 04/12/20 04/12/20 06:31 06:41 06:51 Temperature Pulse Rate 93 H 74 89 Pulse Rate [ Anterior Bilateral Throughout] Pulse Rate [ Apical] Pulse Rate [ From Monitor] Respiratory 17 17 17 Rate Respiratory Rate [Anterior Bilateral Throughout] Blood Pressure 96/59 96/59 95/64 O2 Sat by Pulse 98 99 98 Oximetry 04/12/20 04/12/2020 07:01 07:11 07:21 Temperature Pulse Rate 82 89 96 H Pulse Rate [ Anterior Bilateral Throughout] Pulse Rate [ Apical] Pulse Rate [ From Monitor] Respiratory 17 18 18 Rate Respiratory Rate [Anterior Bilateral Throughout] Blood Pressure 113/57 113/57 113/57 O2 Sat by Pulse 99 96 98 Oximetry 04/12/20 04/12/20 04/12/20 07:25 07:31 07:41 Temperature Pulse Rate 73 80 75 Pulse Rate [ Anterior Bilateral Throughout] Pulse Rate [ Apical] Pulse Rate [ From Monitor] Respiratory 19 19 Rate Respiratory Rate [Anterior Bilateral Throughout] Blood Pressure 107/77 107/77 O2 Sat by Pulse 99 100 Oximetry 04/12/20 04/12/20 04/12/20 07:51 08:00 08:01 Temperature 98.3 F Pulse Rate 79 76 Pulse Rate [ Anterior Bilateral Throughout] Pulse Rate [ Apical] Pulse Rate [ From Monitor] Respiratory 18 17 Rate Respiratory Rate [Anterior Bilateral Throughout] Blood Pressure 108/59 106/53 O2 Sat by Pulse 100 100 99 Oximetry 04/12/20 04/12/20 04/12/20 08:02 08:11 08:21 Temperature Pulse Rate 73 78 90 Pulse Rate [ 78 Anterior Bilateral Throughout] Pulse Rate [ Apical] Pulse Rate [ From Monitor] Respiratory 19 18 Rate Respiratory 25 H Rate [Anterior Bilateral Throughout] Blood Pressure 106/53 106/53 106/53 O2 Sat by Pulse 99 98 97 Oximetry 04/12/20 04/12/20 04/12/20 08:30 08:41 08:51 Temperature Pulse Rate 91 H 93 H 102 H Pulse Rate [ Anterior Bilateral Throughout] Pulse Rate [ Apical] Pulse Rate [ From Monitor] Respiratory 18 19 19 Rate Respiratory Rate [Anterior Bilateral Throughout] Blood Pressure 95/70 95/70 95/70 O2 Sat by Pulse 96 97 99 Oximetry 04/12/20 04/12/20 04/12/20 09:01 09:11 09:21 Temperature Pulse Rate 78 68 59 L Pulse Rate [ Anterior Bilateral Throughout] Pulse Rate [ Apical] Pulse Rate [ From Monitor] Respiratory 18 16 15 Rate Respiratory Rate [Anterior Bilateral Throughout] Blood Pressure 95/70 95/70 95/70 O2 Sat by Pulse 97 99 99 Oximetry 04/12/20 04/12/20 04/12/20 09:31 09:41 09:51 Temperature Pulse Rate 59 L 70 59 L Pulse Rate [ Anterior Bilateral Throughout] Pulse Rate [ Apical] Pulse Rate [ From Monitor] Respiratory 18 16 19 Rate Respiratory Rate [Anterior Bilateral Throughout] Blood Pressure 95/70 80/49 70/46 O2 Sat by Pulse 93 96 Oximetry 04/12/20 04/12/20 04/12/20 10:01 10:02 10:11 Temperature Pulse Rate 39 L 39 L 38 L Pulse Rate [ Anterior Bilateral Throughout] Pulse Rate [ Apical] Pulse Rate [ From Monitor] Respiratory 17 18 Rate Respiratory Rate [Anterior Bilateral Throughout] Blood Pressure 70/46 70/45 154/105 O2 Sat by Pulse 97 Oximetry 04/12/20 04/12/20 04/12/20 10:21 10:30 10:41 Temperature Pulse Rate 78 77 85 Pulse Rate [ Anterior Bilateral Throughout] Pulse Rate [ Apical] Pulse Rate [ From Monitor] Respiratory 16 17 16 Rate Respiratory Rate [Anterior Bilateral Throughout] Blood Pressure 154/105 86/55 86/55 O2 Sat by Pulse 99 98 98 Oximetry 04/12/20 04/12/20 04/12/20 10:51 11:01 11:11 Temperature Pulse Rate 82 70 62 Pulse Rate [ Anterior Bilateral Throughout] Pulse Rate [ Apical] Pulse Rate [ From Monitor] Respiratory 17 16 16 Rate Respiratory Rate [Anterior Bilateral Throughout] Blood Pressure 101/60 114/60 101/60 O2 Sat by Pulse 100 98 99 Oximetry 04/12/20 04/12/20 04/12/20 11:21 11:30 11:41 Temperature Pulse Rate 72 73 72 Pulse Rate [ Anterior Bilateral Throughout] Pulse Rate [ Apical] Pulse Rate [ From Monitor] Respiratory 15 17 17 Rate Respiratory Rate [Anterior Bilateral Throughout] Blood Pressure 115/56 109/56 114/60 O2 Sat by Pulse 98 100 99 Oximetry 04/12/20 04/12/20 04/12/20 11:49 11:51 11:54 Temperature 97.7 F Pulse Rate 75 72 Pulse Rate [ Anterior Bilateral Throughout] Pulse Rate [ Apical] Pulse Rate [ From Monitor] Respiratory 18 Rate Respiratory Rate [Anterior Bilateral Throughout] Blood Pressure 109/56 105/58 O2 Sat by Pulse 98 99 Oximetry 04/12/20 04/12/20 04/12/20 12:00 12:11 12:21 Temperature Pulse Rate 78 88 Pulse Rate [ Anterior Bilateral Throughout] Pulse Rate [ Apical] Pulse Rate [ From Monitor] Respiratory 14 19 Rate Respiratory Rate [Anterior Bilateral Throughout] Blood Pressure 99/61 99/61 112/42 O2 Sat by Pulse 96 100 100 Oximetry 04/12/20 04/12/20 04/12/20 12:31 12:41 12:50 Temperature Pulse Rate 74 79 64 Pulse Rate [ Anterior Bilateral Throughout] Pulse Rate [ Apical] Pulse Rate [ From Monitor] Respiratory 19 19 19 Rate Respiratory Rate [Anterior Bilateral Throughout] Blood Pressure 112/42 92/35 99/61 O2 Sat by Pulse 100 100 Oximetry 04/12/20 04/12/20 04/12/20 13:01 13:11 13:21 Temperature Pulse Rate 68 60 74 Pulse Rate [ Anterior Bilateral Throughout] Pulse Rate [ Apical] Pulse Rate [ From Monitor] Respiratory 19 18 17 Rate Respiratory Rate [Anterior Bilateral Throughout] Blood Pressure 103/43 104/60 94/47 O2 Sat by Pulse 100 100 100 Oximetry - Laboratory Findings CBC and BMP: 04/12/20 07:22 04/12/20 07:22 Abnormal Lab Findings: Abnormal Labs 03/18/20 03/18/20 03/18/20 18:28 18:28 20:56 WBC 12.3 H RBC Hgb Hct MCV MCHC RDW Lymph % (Auto) 11.0 L [place] % (Auto) 9.8 H Lymph # [place] # 1.2 H Seg Neutrophils % 78.4 H Seg Neuts % (Manual) Lymphocytes % (Manual) Nucleated RBC % Seg Neutrophils # 9.6 H Seg Neutrophils # Man Lymphocytes # (Manual) Monocytes # (Manual) Eosinophils # (Manual) PT INR Heparin Anti-Xa Level ABG pH ABG pO2 ABG HCO3 ABG O2 Saturation ABG Base Excess ABG Hemoglobin Oxyhemoglobin Sodium 132 L Potassium Chloride 91.9 L Carbon Dioxide 20 L BUN Creatinine 1.4 H Glucose 406 H POC Glucose Hemoglobin A1c Calcium Phosphorus Magnesium Ferritin AST ALT Alkaline Phosphatase Total Creatine Kinase 2727 H 2492 H CK-MB (CK-2) 135.9 H 107.2 H CK-MB (CK-2) Rel Index 4.3 H Troponin T 5.110 H* 3.960 H* D Total Protein Albumin Triglycerides 188 H LDL Cholesterol Direct 141 H HDL Cholesterol Urine WBC (Auto) Urine Creatinine 03/18/20 03/19/20 03/19/20 22:21 01:57 08:08 WBC RBC Hgb Hct MCV MCHC RDW Lymph % (Auto) [place] % (Auto) Lymph # [place] # Seg Neutrophils % Seg Neuts % (Manual) Lymphocytes % (Manual) Nucleated RBC % Seg Neutrophils # Seg Neutrophils # Man Lymphocytes # (Manual) Monocytes # (Manual) Eosinophils # (Manual) PT INR Heparin Anti-Xa Level ABG pH ABG pO2 ABG HCO3 ABG O2 Saturation ABG Base Excess ABG Hemoglobin Oxyhemoglobin Sodium Potassium Chloride Carbon Dioxide BUN Creatinine Glucose POC Glucose 317 H Hemoglobin A1c 11.0 H Calcium Phosphorus Magnesium Ferritin AST ALT Alkaline Phosphatase Total Creatine Kinase 7255 H CK-MB (CK-2) 79.3 H CK-MB (CK-2) Rel Index Troponin T 5.540 H* D Total Protein Albumin Triglycerides LDL Cholesterol Direct HDL Cholesterol Urine WBC (Auto) Urine Creatinine 03/19/20 03/19/20 03/19/20 08:08 08:08 08:08 WBC 13.3 H RBC Hgb Hct MCV MCHC RDW Lymph % (Auto) 10.7 L [place] % (Auto) 8.5 H Lymph # [place] # 1.1 H Seg Neutrophils % 80.0 H Seg Neuts % (Manual) Lymphocytes % (Manual) Nucleated RBC % Seg Neutrophils # 10.6 H Seg Neutrophils # Man Lymphocytes # (Manual) Monocytes # (Manual) Eosinophils # (Manual) PT INR Heparin Anti-Xa Level 0.10 L ABG pH ABG pO2 ABG HCO3 ABG O2 Saturation ABG Base Excess ABG Hemoglobin Oxyhemoglobin Sodium 133 L Potassium 5.1 H Chloride Carbon Dioxide 17 L BUN 23 H Creatinine Glucose 313 H POC Glucose Hemoglobin A1c Calcium Phosphorus Magnesium Ferritin AST ALT Alkaline Phosphatase Total Creatine Kinase CK-MB (CK-2) CK-MB (CK-2) Rel Index Troponin T Total Protein Albumin Triglycerides LDL Cholesterol Direct HDL Cholesterol Urine WBC (Auto) Urine Creatinine 03/19/20 03/19/20 03/19/20 15:40 18:23 21:32 WBC RBC Hgb Hct MCV MCHC RDW Lymph % (Auto) [place] % (Auto) Lymph # [place] # Seg Neutrophils % Seg Neuts % (Manual) Lymphocytes % (Manual) Nucleated RBC % Seg Neutrophils # Seg Neutrophils # Man Lymphocytes # (Manual) Monocytes # (Manual) Eosinophils # (Manual) PT INR Heparin Anti-Xa Level < 0.10 L ABG pH ABG pO2 ABG HCO3 18.3 L ABG O2 Saturation ABG Base Excess -5.4 L ABG Hemoglobin 12.2 L Oxyhemoglobin 94.6 L Sodium Potassium Chloride Carbon Dioxide BUN Creatinine Glucose POC Glucose 348 H Hemoglobin A1c Calcium Phosphorus Magnesium Ferritin AST ALT Alkaline Phosphatase Total Creatine Kinase CK-MB (CK-2) CK-MB (CK-2) Rel Index Troponin T Total Protein Albumin Triglycerides LDL Cholesterol Direct HDL Cholesterol Urine WBC (Auto) Urine Creatinine 03/20/20 03/20/20 03/20/20 04:35 05:12 05:12 WBC 11.1 H RBC 3.63 L Hgb 11.0 L Hct 32.7 L D MCV MCHC RDW Lymph % (Auto) [place] % (Auto) 8.1 H Lymph # [place] # 0.9 H Seg Neutrophils % 75.8 H Seg Neuts % (Manual) Lymphocytes % (Manual) Nucleated RBC % Seg Neutrophils # 8.4 H Seg Neutrophils # Man Lymphocytes # (Manual) Monocytes # (Manual) Eosinophils # (Manual) PT INR Heparin Anti-Xa Level 0.28 L ABG pH ABG pO2 68.3 L ABG HCO3 ABG O2 Saturation 94.3 L ABG Base Excess ABG Hemoglobin 7.1 L Oxyhemoglobin 92.3 L Sodium Potassium Chloride Carbon Dioxide BUN Creatinine Glucose POC Glucose Hemoglobin A1c Calcium Phosphorus Magnesium Ferritin AST ALT Alkaline Phosphatase Total Creatine Kinase CK-MB (CK-2) CK-MB (CK-2) Rel Index Troponin T Total Protein Albumin Triglycerides LDL Cholesterol Direct HDL Cholesterol Urine WBC (Auto) Urine Creatinine 03/20/20 03/20/20 03/20/20 05:12 07:49 12:15 WBC RBC Hgb Hct MCV MCHC RDW Lymph % (Auto) [place] % (Auto) Lymph # [place] # Seg Neutrophils % Seg Neuts % (Manual) Lymphocytes % (Manual) Nucleated RBC % Seg Neutrophils # Seg Neutrophils # Man Lymphocytes # (Manual) Monocytes # (Manual) Eosinophils # (Manual) PT INR Heparin Anti-Xa Level ABG pH ABG pO2 ABG HCO3 ABG O2 Saturation ABG Base Excess ABG Hemoglobin Oxyhemoglobin Sodium 134 L Potassium Chloride Carbon Dioxide 21 L BUN 23 H Creatinine Glucose 275 H POC Glucose 294 H 357 H Hemoglobin A1c Calcium Phosphorus Magnesium Ferritin AST ALT Alkaline Phosphatase Total Creatine Kinase CK-MB (CK-2) CK-MB (CK-2) Rel Index Troponin T 3.200 H* D Total Protein Albumin Triglycerides LDL Cholesterol Direct HDL Cholesterol Urine WBC (Auto) Urine Creatinine 08/05/20 08/05/20 08/06/20 17:16 22:08 04:44 WBC RBC Hgb Hct MCV MCHC RDW Lymph % (Auto) [place] % (Auto) Lymph # [place] # Seg Neutrophils % Seg Neuts % (Manual) Lymphocytes % (Manual) Nucleated RBC % Seg Neutrophils # Seg Neutrophils # Man Lymphocytes # (Manual) Monocytes # (Manual) Eosinophils # (Manual) PT INR Heparin Anti-Xa Level ABG pH ABG pO2 ABG HCO3 ABG O2 Saturation ABG Base Excess ABG Hemoglobin Oxyhemoglobin Sodium 136 L Potassium Chloride Carbon Dioxide 18 L BUN 26 H Creatinine Glucose 266 H POC Glucose 327 H 292 H Hemoglobin A1c Calcium 8.1 L Phosphorus Magnesium Ferritin AST ALT Alkaline Phosphatase Total Creatine Kinase CK-MB (CK-2) CK-MB (CK-2) Rel Index Troponin T Total Protein Albumin Triglycerides LDL Cholesterol Direct HDL Cholesterol Urine WBC (Auto) Urine Creatinine 03/21/20 03/21/20 03/21/20 07:50 12:25 15:53 WBC RBC Hgb Hct MCV MCHC RDW Lymph % (Auto) [place] % (Auto) Lymph # [place] # Seg Neutrophils % Seg Neuts % (Manual) Lymphocytes % (Manual) Nucleated RBC % Seg Neutrophils # Seg Neutrophils # Man Lymphocytes # (Manual) Monocytes # (Manual) Eosinophils # (Manual) PT INR Heparin Anti-Xa Level ABG pH ABG pO2 ABG HCO3 ABG O2 Saturation ABG Base Excess ABG Hemoglobin Oxyhemoglobin Sodium Potassium Chloride Carbon Dioxide BUN Creatinine Glucose POC Glucose 271 H 314 H 436 H Hemoglobin A1c Calcium Phosphorus Magnesium Ferritin AST ALT Alkaline Phosphatase Total Creatine Kinase CK-MB (CK-2) CK-MB (CK-2) Rel Index Troponin T Total Protein Albumin Triglycerides LDL Cholesterol Direct HDL Cholesterol Urine WBC (Auto) Urine Creatinine 03/21/20 03/21/20 03/22/20 17:44 21:55 04:33 WBC RBC Hgb 10.0 L Hct 29.4 L MCV MCHC RDW Lymph % (Auto) [place] % (Auto) Lymph # [place] # Seg Neutrophils % Seg Neuts % (Manual) Lymphocytes % (Manual) Nucleated RBC % Seg Neutrophils # Seg Neutrophils # Man Lymphocytes # (Manual) Monocytes # (Manual) Eosinophils # (Manual) PT INR Heparin Anti-Xa Level ABG pH ABG pO2 ABG HCO3 ABG O2 Saturation ABG Base Excess ABG Hemoglobin Oxyhemoglobin Sodium Potassium Chloride Carbon Dioxide BUN Creatinine Glucose POC Glucose 362 H 329 H Hemoglobin A1c Calcium Phosphorus Magnesium Ferritin AST ALT Alkaline Phosphatase Total Creatine Kinase CK-MB (CK-2) CK-MB (CK-2) Rel Index Troponin T Total Protein Albumin Triglycerides LDL Cholesterol Direct HDL Cholesterol Urine WBC (Auto) Urine Creatinine 03/22/20 03/22/20 03/22/20 08:57 14:12 19:57 WBC RBC Hgb Hct MCV MCHC RDW Lymph % (Auto) [place] % (Auto) Lymph # [place] # Seg Neutrophils % Seg Neuts % (Manual) Lymphocytes % (Manual) Nucleated RBC % Seg Neutrophils # Seg Neutrophils # Man Lymphocytes # (Manual) Monocytes # (Manual) Eosinophils # (Manual) PT INR Heparin Anti-Xa Level ABG pH ABG pO2 ABG HCO3 ABG O2 Saturation ABG Base Excess ABG Hemoglobin Oxyhemoglobin Sodium Potassium Chloride Carbon Dioxide BUN Creatinine Glucose POC Glucose 284 H 319 H 356 H Hemoglobin A1c Calcium Phosphorus Magnesium Ferritin AST ALT Alkaline Phosphatase Total Creatine Kinase CK-MB (CK-2) CK-MB (CK-2) Rel Index Troponin T Total Protein Albumin Triglycerides LDL Cholesterol Direct HDL Cholesterol Urine WBC (Auto) Urine Creatinine 03/22/20 03/23/20 03/23/20 21:44 08:18 12:46 WBC RBC Hgb Hct MCV MCHC RDW Lymph % (Auto) [place] % (Auto) Lymph # [place] # Seg Neutrophils % Seg Neuts % (Manual) Lymphocytes % (Manual) Nucleated RBC % Seg Neutrophils # Seg Neutrophils # Man Lymphocytes # (Manual) Monocytes # (Manual) Eosinophils # (Manual) PT INR Heparin Anti-Xa Level ABG pH ABG pO2 ABG HCO3 ABG O2 Saturation ABG Base Excess ABG Hemoglobin Oxyhemoglobin Sodium Potassium Chloride Carbon Dioxide BUN Creatinine Glucose POC Glucose 336 H 215 H 262 H Hemoglobin A1c Calcium Phosphorus Magnesium Ferritin AST ALT Alkaline Phosphatase Total Creatine Kinase CK-MB (CK-2) CK-MB (CK-2) Rel Index Troponin T Total Protein Albumin Triglycerides LDL Cholesterol Direct HDL Cholesterol Urine WBC (Auto) Urine Creatinine 03/23/20 03/23/20 03/24/20 15:56 22:05 02:35 WBC RBC Hgb 9.0 L Hct 25.8 L MCV MCHC RDW Lymph % (Auto) [place] % (Auto) Lymph # [place] # Seg Neutrophils % Seg Neuts % (Manual) Lymphocytes % (Manual) Nucleated RBC % Seg Neutrophils # Seg Neutrophils # Man Lymphocytes # (Manual) Monocytes # (Manual) Eosinophils # (Manual) PT INR Heparin Anti-Xa Level ABG pH ABG pO2 ABG HCO3 ABG O2 Saturation ABG Base Excess ABG Hemoglobin Oxyhemoglobin Sodium Potassium Chloride Carbon Dioxide BUN Creatinine Glucose POC Glucose 246 H 322 H Hemoglobin A1c Calcium Phosphorus Magnesium Ferritin AST ALT Alkaline Phosphatase Total Creatine Kinase CK-MB (CK-2) CK-MB (CK-2) Rel Index Troponin T Total Protein Albumin Triglycerides LDL Cholesterol Direct HDL Cholesterol Urine WBC (Auto) Urine Creatinine 03/24/20 03/24/20 03/24/20 07:38 11:45 16:02 WBC RBC Hgb Hct MCV MCHC RDW Lymph % (Auto) [place] % (Auto) Lymph # [place] # Seg Neutrophils % Seg Neuts % (Manual) Lymphocytes % (Manual) Nucleated RBC % Seg Neutrophils # Seg Neutrophils # Man Lymphocytes # (Manual) Monocytes # (Manual) Eosinophils # (Manual) PT INR Heparin Anti-Xa Level ABG pH ABG pO2 ABG HCO3 ABG O2 Saturation ABG Base Excess ABG Hemoglobin Oxyhemoglobin Sodium Potassium Chloride Carbon Dioxide BUN Creatinine Glucose POC Glucose 289 H 257 H 150 H Hemoglobin A1c Calcium Phosphorus Magnesium Ferritin AST ALT Alkaline Phosphatase Total Creatine Kinase CK-MB (CK-2) CK-MB (CK-2) Rel Index Troponin T Total Protein Albumin Triglycerides LDL Cholesterol Direct HDL Cholesterol Urine WBC (Auto) Urine Creatinine 03/24/20 03/25/20 03/25/20 21:24 04:06 07:39 WBC RBC Hgb Hct MCV MCHC RDW Lymph % (Auto) [place] % (Auto) Lymph # [place] # Seg Neutrophils % Seg Neuts % (Manual) Lymphocytes % (Manual) Nucleated RBC % Seg Neutrophils # Seg Neutrophils # Man Lymphocytes # (Manual) Monocytes # (Manual) Eosinophils # (Manual) PT INR Heparin Anti-Xa Level 0.10 L ABG pH ABG pO2 ABG HCO3 ABG O2 Saturation ABG Base Excess ABG Hemoglobin Oxyhemoglobin Sodium Potassium Chloride Carbon Dioxide BUN Creatinine Glucose POC Glucose 228 H 332 H Hemoglobin A1c Calcium Phosphorus Magnesium Ferritin AST ALT Alkaline Phosphatase Total Creatine Kinase CK-MB (CK-2) CK-MB (CK-2) Rel Index Troponin T Total Protein Albumin Triglycerides LDL Cholesterol Direct HDL Cholesterol Urine WBC (Auto) Urine Creatinine 03/25/20 03/25/2003/25/20 08:13 09:30 11:59 WBC 13.1 H RBC 2.82 L Hgb 8.5 L Hct 26.1 L MCV MCHC RDW Lymph % (Auto) [place] % (Auto) Lymph # [place] # Seg Neutrophils % Seg Neuts % (Manual) Lymphocytes % (Manual) Nucleated RBC % Seg Neutrophils # Seg Neutrophils # Man Lymphocytes # (Manual) Monocytes # (Manual) Eosinophils # (Manual) PT INR Heparin Anti-Xa Level ABG pH ABG pO2 ABG HCO3 ABG O2 Saturation ABG Base Excess ABG Hemoglobin Oxyhemoglobin Sodium 131 L Potassium 5.3 H Chloride Carbon Dioxide 20 L BUN 39 H Creatinine 1.4 H Glucose 313 H POC Glucose 273 H Hemoglobin A1c Calcium 8.1 L Phosphorus Magnesium Ferritin AST ALT Alkaline Phosphatase Total Creatine Kinase CK-MB (CK-2) CK-MB (CK-2) Rel Index Troponin T Total Protein Albumin Triglycerides LDL Cholesterol Direct HDL Cholesterol Urine WBC (Auto) Urine Creatinine 03/25/20 03/25/20 03/25/20 13:54 15:58 18:21 WBC RBC Hgb Hct MCV MCHC RDW Lymph % (Auto) [place] % (Auto) Lymph # [place] # Seg Neutrophils % Seg Neuts % (Manual) Lymphocytes % (Manual) Nucleated RBC % Seg Neutrophils # Seg Neutrophils # Man Lymphocytes # (Manual) Monocytes # (Manual) Eosinophils # (Manual) PT INR Heparin Anti-Xa Level ABG pH ABG pO2 ABG HCO3 ABG O2 Saturation ABG Base Excess ABG Hemoglobin Oxyhemoglobin Sodium Potassium Chloride Carbon Dioxide BUN Creatinine Glucose POC Glucose 246 H 235 H 185 H Hemoglobin A1c Calcium Phosphorus Magnesium Ferritin AST ALT Alkaline Phosphatase Total Creatine Kinase CK-MB (CK-2) CK-MB (CK-2) Rel Index Troponin T Total Protein Albumin Triglycerides LDL Cholesterol Direct HDL Cholesterol Urine WBC (Auto) Urine Creatinine 03/25/20 03/26/20 03/26/20 20:45 05:15 06:59 WBC 17.4 H 15.6 H RBC 3.05 L 3.05 L Hgb 9.1 L 9.2 L Hct 28.2 L 27.9 L MCV MCHC RDW Lymph % (Auto) 8.9 L 8.9 L [place] % (Auto) Lymph # [place] # 1.0 H Seg Neutrophils % 84.4 H 84.8 H Seg Neuts % (Manual) Lymphocytes % (Manual) Nucleated RBC % Seg Neutrophils # 14.7 H 13.2 H Seg Neutrophils # Man Lymphocytes # (Manual) Monocytes # (Manual) Eosinophils # (Manual) PT INR Heparin Anti-Xa Level ABG pH ABG pO2 ABG HCO3 ABG O2 Saturation ABG Base Excess ABG Hemoglobin Oxyhemoglobin Sodium Potassium Chloride Carbon Dioxide BUN Creatinine Glucose POC Glucose 178 H Hemoglobin A1c Calcium Phosphorus Magnesium Ferritin AST ALT Alkaline Phosphatase Total Creatine Kinase CK-MB (CK-2) CK-MB (CK-2) Rel Index Troponin T Total Protein Albumin Triglycerides LDL Cholesterol Direct HDL Cholesterol Urine WBC (Auto) Urine Creatinine 03/26/20 03/26/20 03/26/20 06:59 07:43 11:56 WBC RBC Hgb Hct MCV MCHC RDW Lymph % (Auto) [place] % (Auto) Lymph # [place] # Seg Neutrophils % Seg Neuts % (Manual) Lymphocytes % (Manual) Nucleated RBC % Seg Neutrophils # Seg Neutrophils # Man Lymphocytes # (Manual) Monocytes # (Manual) Eosinophils # (Manual) PT INR Heparin Anti-Xa Level ABG pH ABG pO2 ABG HCO3 ABG O2 Saturation ABG Base Excess ABG Hemoglobin Oxyhemoglobin Sodium 131 L Potassium 5.8 H Chloride Carbon Dioxide 16 L BUN 42 H Creatinine 1.4 H Glucose 163 H POC Glucose 170 H 198 H Hemoglobin A1c Calcium 8.0 L Phosphorus Magnesium Ferritin AST ALT Alkaline Phosphatase Total Creatine Kinase CK-MB (CK-2) CK-MB (CK-2) Rel Index Troponin T Total Protein Albumin Triglycerides LDL Cholesterol Direct HDL Cholesterol Urine WBC (Auto) Urine Creatinine 03/26/20 03/26/20 03/26/20 13:58 16:16 21:00 WBC RBC Hgb Hct MCV MCHC RDW Lymph % (Auto) [place] % (Auto) Lymph # [place] # Seg Neutrophils % Seg Neuts % (Manual) Lymphocytes % (Manual) Nucleated RBC % Seg Neutrophils # Seg Neutrophils # Man Lymphocytes # (Manual) Monocytes # (Manual) Eosinophils # (Manual) PT INR Heparin Anti-Xa Level ABG pH ABG pO2 ABG HCO3 ABG O2 Saturation ABG Base Excess ABG Hemoglobin Oxyhemoglobin Sodium 128 L Potassium 6.0 H Chloride Carbon Dioxide 15 L BUN 45 H Creatinine 1.4 H Glucose 190 H POC Glucose 184 H 192 H Hemoglobin A1c Calcium 8.2 L Phosphorus Magnesium Ferritin AST ALT Alkaline Phosphatase Total Creatine Kinase CK-MB (CK-2) CK-MB (CK-2) Rel Index Troponin T Total Protein Albumin Triglycerides LDL Cholesterol Direct HDL Cholesterol Urine WBC (Auto) Urine Creatinine 03/27/20 03/27/20 03/27/20 08:32 11:51 14:39 WBC 22.9 H RBC 2.68 L Hgb 7.9 L Hct 24.7 L MCV MCHC RDW Lymph % (Auto) [place] % (Auto) Lymph # [place] # Seg Neutrophils % Seg Neuts % (Manual) Lymphocytes % (Manual) Nucleated RBC % Seg Neutrophils # Seg Neutrophils # Man Lymphocytes # (Manual) Monocytes # (Manual) Eosinophils # (Manual) PT INR Heparin Anti-Xa Level ABG pH ABG pO2 ABG HCO3 ABG O2 Saturation ABG Base Excess ABG Hemoglobin Oxyhemoglobin Sodium Potassium Chloride Carbon Dioxide BUN Creatinine Glucose POC Glucose 233 H 252 H Hemoglobin A1c Calcium Phosphorus Magnesium Ferritin AST ALT Alkaline Phosphatase Total Creatine Kinase CK-MB (CK-2) CK-MB (CK-2) Rel Index Troponin T Total Protein Albumin Triglycerides LDL Cholesterol Direct HDL Cholesterol Urine WBC (Auto) Urine Creatinine 03/27/20 03/27/20 03/27/20 14:39 15:19 21:35 WBC RBC Hgb Hct MCV MCHC RDW Lymph % (Auto) [place] % (Auto) Lymph # [place] # Seg Neutrophils % Seg Neuts % (Manual) Lymphocytes % (Manual) Nucleated RBC % Seg Neutrophils # Seg Neutrophils # Man Lymphocytes # (Manual) Monocytes # (Manual) Eosinophils # (Manual) PT INR Heparin Anti-Xa Level ABG pH ABG pO2 ABG HCO3 ABG O2 Saturation ABG Base Excess ABG Hemoglobin Oxyhemoglobin Sodium 133 L Potassium 5.5 H Chloride Carbon Dioxide 16 L BUN 46 H Creatinine 1.4 H Glucose 225 H POC Glucose 239 H 202 H Hemoglobin A1c Calcium 8.2 L Phosphorus Magnesium Ferritin AST ALT Alkaline Phosphatase Total Creatine Kinase CK-MB (CK-2) CK-MB (CK-2) Rel Index Troponin T Total Protein Albumin Triglycerides LDL Cholesterol Direct HDL Cholesterol Urine WBC (Auto) Urine Creatinine 03/28/20 03/28/20 03/28/20 07:39 07:39 08:36 WBC 22.4 H RBC 2.71 L Hgb 7.9 L Hct 24.5 L MCV MCHC RDW Lymph % (Auto) [place] % (Auto) Lymph # [place] # Seg Neutrophils % Seg Neuts % (Manual) 88.0 H Lymphocytes % (Manual) 5.0 L Nucleated RBC % Seg Neutrophils # Seg Neutrophils # Man 19.7 H Lymphocytes # (Manual) 1.1 L Monocytes # (Manual) 1.6 H Eosinophils # (Manual) PT INR Heparin Anti-Xa Level ABG pH ABG pO2 ABG HCO3 ABG O2 Saturation ABG Base Excess ABG Hemoglobin Oxyhemoglobin Sodium 134 L Potassium Chloride Carbon Dioxide 19 L BUN 47 H Creatinine Glucose 240 H POC Glucose 253 H Hemoglobin A1c Calcium 7.8 L Phosphorus Magnesium Ferritin AST ALT Alkaline Phosphatase Total Creatine Kinase CK-MB (CK-2) CK-MB (CK-2) Rel Index Troponin T Total Protein Albumin Triglycerides LDL Cholesterol Direct HDL Cholesterol Urine WBC (Auto) Urine Creatinine 03/28/20 03/28/20 03/28/20 11:54 17:08 21:17 WBC RBC Hgb Hct MCV MCHC RDW Lymph % (Auto) [place] % (Auto) Lymph # [place] # Seg Neutrophils % Seg Neuts % (Manual) Lymphocytes % (Manual) Nucleated RBC % Seg Neutrophils # Seg Neutrophils # Man Lymphocytes # (Manual) Monocytes # (Manual) Eosinophils # (Manual) PT INR Heparin Anti-Xa Level ABG pH ABG pO2 ABG HCO3 ABG O2 Saturation ABG Base Excess ABG Hemoglobin Oxyhemoglobin Sodium Potassium Chloride Carbon Dioxide BUN Creatinine Glucose POC Glucose 306 H 178 H 186 H Hemoglobin A1c Calcium Phosphorus Magnesium Ferritin AST ALT Alkaline Phosphatase Total Creatine Kinase CK-MB (CK-2) CK-MB (CK-2) Rel Index Troponin T Total Protein Albumin Triglycerides LDL Cholesterol Direct HDL Cholesterol Urine WBC (Auto) Urine Creatinine 03/29/20 03/29/20 03/29/20 08:32 12:04 14:19 WBC 21.5 H RBC 2.82 L Hgb 8.4 L Hct 26.1 L MCV MCHC RDW Lymph % (Auto) [place] % (Auto) Lymph # [place] # Seg Neutrophils % Seg Neuts % (Manual) 85.0 H Lymphocytes % (Manual) 11.0 L Nucleated RBC % 3.0 H Seg Neutrophils # Seg Neutrophils # Man 18.3 H Lymphocytes # (Manual) Monocytes # (Manual) Eosinophils # (Manual) 0.6 H PT INR Heparin Anti-Xa Level ABG pH ABG pO2 ABG HCO3 ABG O2 Saturation ABG Base Excess ABG Hemoglobin Oxyhemoglobin Sodium Potassium Chloride Carbon Dioxide BUN Creatinine Glucose POC Glucose 110 H 263 H Hemoglobin A1c Calcium Phosphorus Magnesium Ferritin AST ALT Alkaline Phosphatase Total Creatine Kinase CK-MB (CK-2) CK-MB (CK-2) Rel Index Troponin T Total Protein Albumin Triglycerides LDL Cholesterol Direct HDL Cholesterol Urine WBC (Auto) Urine Creatinine 03/29/20 03/29/20 03/30/20 16:17 22:57 11:00 WBC RBC Hgb Hct MCV MCHC RDW Lymph % (Auto) [place] % (Auto) Lymph # [place] # Seg Neutrophils % Seg Neuts % (Manual) Lymphocytes % (Manual) Nucleated RBC % Seg Neutrophils # Seg Neutrophils # Man Lymphocytes # (Manual) Monocytes # (Manual) Eosinophils # (Manual) PT INR Heparin Anti-Xa Level ABG pH ABG pO2 ABG HCO3 ABG O2 Saturation ABG Base Excess ABG Hemoglobin Oxyhemoglobin Sodium Potassium Chloride Carbon Dioxide BUN Creatinine Glucose POC Glucose 109 H 194 H 129 H Hemoglobin A1c Calcium Phosphorus Magnesium Ferritin AST ALT Alkaline Phosphatase Total Creatine Kinase CK-MB (CK-2) CK-MB (CK-2) Rel Index Troponin T Total Protein Albumin Triglycerides LDL Cholesterol Direct HDL Cholesterol Urine WBC (Auto) Urine Creatinine 03/30/20 03/30/20 03/31/20 15:16 21:54 04:27 WBC 15.8 H RBC 2.62 L Hgb 7.7 L Hct 24.1 L MCV MCHC RDW Lymph % (Auto) 9.4 L [place] % (Auto) Lymph # [place] # Seg Neutrophils % 84.4 H Seg Neuts % (Manual) Lymphocytes % (Manual) Nucleated RBC % Seg Neutrophils # 13.3 H Seg Neutrophils # Man Lymphocytes # (Manual) Monocytes # (Manual) Eosinophils # (Manual) PT INR Heparin Anti-Xa Level ABG pH ABG pO2 ABG HCO3 ABG O2 Saturation ABG Base Excess ABG Hemoglobin Oxyhemoglobin Sodium Potassium Chloride Carbon Dioxide BUN Creatinine Glucose POC Glucose 115 H 166 H Hemoglobin A1c Calcium Phosphorus Magnesium Ferritin AST ALT Alkaline Phosphatase Total Creatine Kinase CK-MB (CK-2) CK-MB (CK-2) Rel Index Troponin T Total Protein Albumin Triglycerides LDL Cholesterol Direct HDL Cholesterol Urine WBC (Auto) Urine Creatinine 03/31/20 03/31/20 03/31/20 04:27 07:37 11:46 WBC RBC Hgb Hct MCV MCHC RDW Lymph % (Auto) [place] % (Auto) Lymph # [place] # Seg Neutrophils % Seg Neuts % (Manual) Lymphocytes % (Manual) Nucleated RBC % Seg Neutrophils # Seg Neutrophils # Man Lymphocytes # (Manual) Monocytes # (Manual) Eosinophils # (Manual) PT INR Heparin Anti-Xa Level ABG pH ABG pO2 ABG HCO3 ABG O2 Saturation ABG Base Excess ABG Hemoglobin Oxyhemoglobin Sodium 133 L Potassium Chloride 96.6 L Carbon Dioxide 18 L BUN 75 H Creatinine 2.5 H D Glucose 129 H POC Glucose 156 H 224 H Hemoglobin A1c Calcium 8.0 L Phosphorus Magnesium Ferritin AST ALT Alkaline Phosphatase Total Creatine Kinase CK-MB (CK-2) CK-MB (CK-2) Rel Index Troponin T Total Protein Albumin Triglycerides LDL Cholesterol Direct HDL Cholesterol Urine WBC (Auto) Urine Creatinine 04/01/20 04/01/20 04/01/20 08:34 10:52 10:52 WBC 12.9 H RBC 2.75 L Hgb 8.2 L Hct 24.8 L MCV MCHC RDW Lymph % (Auto) 10.6 L [place] % (Auto) Lymph # [place] # Seg Neutrophils % 83.7 H Seg Neuts % (Manual) Lymphocytes % (Manual) Nucleated RBC % Seg Neutrophils # 10.8 H Seg Neutrophils # Man Lymphocytes # (Manual) Monocytes # (Manual) Eosinophils # (Manual) PT INR Heparin Anti-Xa Level ABG pH ABG pO2 ABG HCO3 ABG O2 Saturation ABG Base Excess ABG Hemoglobin Oxyhemoglobin Sodium 131 L Potassium Chloride 96.1 L Carbon Dioxide 17 L BUN 77 H Creatinine 2.3 H Glucose 205 H POC Glucose 110 H Hemoglobin A1c Calcium 7.9 L Phosphorus Magnesium Ferritin AST ALT Alkaline Phosphatase Total Creatine Kinase CK-MB (CK-2) CK-MB (CK-2) Rel Index Troponin T Total Protein Albumin Triglycerides LDL Cholesterol Direct HDL Cholesterol Urine WBC (Auto) Urine Creatinine 04/01/20 04/01/20 04/01/20 12:15 17:22 20:47 WBC RBC Hgb Hct MCV MCHC RDW Lymph % (Auto) [place] % (Auto) Lymph # [place] # Seg Neutrophils % Seg Neuts % (Manual) Lymphocytes % (Manual) Nucleated RBC % Seg Neutrophils # Seg Neutrophils # Man Lymphocytes # (Manual) Monocytes # (Manual) Eosinophils # (Manual) PT INR Heparin Anti-Xa Level ABG pH ABG pO2 ABG HCO3 ABG O2 Saturation ABG Base Excess ABG Hemoglobin Oxyhemoglobin Sodium Potassium Chloride Carbon Dioxide BUN Creatinine Glucose POC Glucose 201 H 219 H 156 H Hemoglobin A1c Calcium Phosphorus Magnesium Ferritin AST ALT Alkaline Phosphatase Total Creatine Kinase CK-MB (CK-2) CK-MB (CK-2) Rel Index Troponin T Total Protein Albumin Triglycerides LDL Cholesterol Direct HDL Cholesterol Urine WBC (Auto) Urine Creatinine 04/02/20 04/02/20 04/02/20 05:44 05:44 11:32 WBC 15.8 H RBC 2.81 L Hgb 8.2 L Hct 25.7 L MCV MCHC RDW Lymph % (Auto) [place] % (Auto) Lymph # [place] # 0.9 H Seg Neutrophils % 77.7 H Seg Neuts % (Manual) Lymphocytes % (Manual) Nucleated RBC % Seg Neutrophils # 12.3 H Seg Neutrophils # Man Lymphocytes # (Manual) Monocytes # (Manual) Eosinophils # (Manual) PT INR Heparin Anti-Xa Level ABG pH ABG pO2 ABG HCO3 ABG O2 Saturation ABG Base Excess ABG Hemoglobin Oxyhemoglobin Sodium 134 L Potassium Chloride Carbon Dioxide 19 L BUN 76 H Creatinine 2.0 H Glucose POC Glucose 116 H Hemoglobin A1c Calcium 8.0 L Phosphorus Magnesium Ferritin AST 291 H ALT 169 H Alkaline Phosphatase 256 H Total Creatine Kinase CK-MB (CK-2) CK-MB (CK-2) Rel Index Troponin T Total Protein 6.1 L Albumin 2.2 L Triglycerides LDL Cholesterol Direct HDL Cholesterol Urine WBC (Auto) Urine Creatinine 04/02/20 04/02/20 04/03/20 16:56 22:03 08:13 WBC RBC Hgb Hct MCV MCHC RDW Lymph % (Auto) [place] % (Auto) Lymph # [place] # Seg Neutrophils % Seg Neuts % (Manual) Lymphocytes % (Manual) Nucleated RBC % Seg Neutrophils # Seg Neutrophils # Man Lymphocytes # (Manual) Monocytes # (Manual) Eosinophils # (Manual) PT INR Heparin Anti-Xa Level ABG pH ABG pO2 ABG HCO3 ABG O2 Saturation ABG Base Excess ABG Hemoglobin Oxyhemoglobin Sodium Potassium Chloride Carbon Dioxide BUN Creatinine Glucose POC Glucose 141 H 152 H 126 H Hemoglobin A1c Calcium Phosphorus Magnesium Ferritin AST ALT Alkaline Phosphatase Total Creatine Kinase CK-MB (CK-2) CK-MB (CK-2) Rel Index Troponin T Total Protein Albumin Triglycerides LDL Cholesterol Direct HDL Cholesterol Urine WBC (Auto) Urine Creatinine 04/03/20 04/03/20 04/03/20 12:11 16:26 21:33 WBC RBC Hgb Hct MCV MCHC RDW Lymph % (Auto) [place] % (Auto) Lymph # [place] # Seg Neutrophils % Seg Neuts % (Manual) Lymphocytes % (Manual) Nucleated RBC % Seg Neutrophils # Seg Neutrophils # Man Lymphocytes # (Manual) Monocytes # (Manual) Eosinophils # (Manual) PT INR Heparin Anti-Xa Level ABG pH ABG pO2 ABG HCO3 ABG O2 Saturation ABG Base Excess ABG Hemoglobin Oxyhemoglobin Sodium Potassium Chloride Carbon Dioxide BUN Creatinine Glucose POC Glucose 139 H 164 H 147 H Hemoglobin A1c Calcium Phosphorus Magnesium Ferritin AST ALT Alkaline Phosphatase Total Creatine Kinase CK-MB (CK-2) CK-MB (CK-2) Rel Index Troponin T Total Protein Albumin Triglycerides LDL Cholesterol Direct HDL Cholesterol Urine WBC (Auto) Urine Creatinine 04/04/20 04/04/20 04/04/20 04:29 04:29 11:29 WBC 12.3 H RBC 2.88 L Hgb 8.4 L Hct 26.1 L MCV MCHC RDW Lymph % (Auto) [place] % (Auto) Lymph # [place] # Seg Neutrophils % 75.4 H Seg Neuts % (Manual) Lymphocytes % (Manual) Nucleated RBC % Seg Neutrophils # 9.3 H Seg Neutrophils # Man Lymphocytes # (Manual) Monocytes # (Manual) Eosinophils # (Manual) PT INR Heparin Anti-Xa Level ABG pH ABG pO2 ABG HCO3 ABG O2 Saturation ABG Base Excess ABG Hemoglobin Oxyhemoglobin Sodium 136 L Potassium Chloride Carbon Dioxide 19 L BUN 71 H Creatinine 1.7 H Glucose POC Glucose 108 H Hemoglobin A1c Calcium 8.0 L Phosphorus Magnesium Ferritin AST 673 H ALT 252 H Alkaline Phosphatase 311 H Total Creatine Kinase CK-MB (CK-2) CK-MB (CK-2) Rel Index Troponin T Total Protein Albumin 2.2 L Triglycerides LDL Cholesterol Direct HDL Cholesterol Urine WBC (Auto) Urine Creatinine 04/04/20 04/04/20 04/05/20 16:34 20:58 03:54 WBC 13.7 H RBC 3.03 L Hgb 8.7 L Hct 27.9 L MCV MCHC 31 L RDW 15.5 H Lymph % (Auto) [place] % (Auto) Lymph # [place] # Seg Neutrophils % 78.9 H Seg Neuts % (Manual) Lymphocytes % (Manual) Nucleated RBC % Seg Neutrophils # 10.8 H Seg Neutrophils # Man Lymphocytes # (Manual) Monocytes # (Manual) Eosinophils # (Manual) PT INR Heparin Anti-Xa Level ABG pH ABG pO2 ABG HCO3 ABG O2 Saturation ABG Base Excess ABG Hemoglobin Oxyhemoglobin Sodium Potassium Chloride Carbon Dioxide BUN Creatinine Glucose POC Glucose 151 H 131 H Hemoglobin A1c Calcium Phosphorus Magnesium Ferritin AST ALT Alkaline Phosphatase Total Creatine Kinase CK-MB (CK-2) CK-MB (CK-2) Rel Index Troponin T Total Protein Albumin Triglycerides LDL Cholesterol Direct HDL Cholesterol Urine WBC (Auto) Urine Creatinine 04/05/20 04/05/20 04/05/20 03:54 15:58 15:58 WBC RBC Hgb Hct MCV MCHC RDW Lymph % (Auto) [place] % (Auto) Lymph # [place] # Seg Neutrophils % Seg Neuts % (Manual) Lymphocytes % (Manual) Nucleated RBC % Seg Neutrophils # Seg Neutrophils # Man Lymphocytes # (Manual) Monocytes # (Manual) Eosinophils # (Manual) PT INR Heparin Anti-Xa Level ABG pH ABG pO2 67.1 L ABG HCO3 26.1 H ABG O2 Saturation 93.4 L ABG Base Excess ABG Hemoglobin 9.0 L Oxyhemoglobin 91.6 L Sodium 136 L Potassium 5.5 H Chloride Carbon Dioxide 21 L BUN 79 H Creatinine 1.9 H Glucose 63 L POC Glucose 129 H Hemoglobin A1c Calcium 8.2 L Phosphorus Magnesium Ferritin AST 696 H ALT 262 H Alkaline Phosphatase 325 H Total Creatine Kinase CK-MB (CK-2) CK-MB (CK-2) Rel Index Troponin T Total Protein Albumin 2.3 L Triglycerides LDL Cholesterol Direct HDL Cholesterol Urine WBC (Auto) Urine Creatinine 04/05/20 04/06/20 04/06/20 22:33 07:14 07:14 WBC RBC Hgb Hct MCV MCHC RDW Lymph % (Auto) [place] % (Auto) Lymph # [place] # Seg Neutrophils % Seg Neuts % (Manual) Lymphocytes % (Manual) Nucleated RBC % Seg Neutrophils # Seg Neutrophils # Man Lymphocytes # (Manual) Monocytes # (Manual) Eosinophils # (Manual) PT INR Heparin Anti-Xa Level ABG pH ABG pO2 ABG HCO3 ABG O2 Saturation ABG Base Excess ABG Hemoglobin Oxyhemoglobin Sodium Potassium 5.6 H Chloride Carbon Dioxide BUN 83 H Creatinine 1.9 H Glucose 202 H POC Glucose 253 H Hemoglobin A1c Calcium Phosphorus Magnesium Ferritin 444.2 H AST 469 H ALT 237 H Alkaline Phosphatase 332 H Total Creatine Kinase CK-MB (CK-2) CK-MB (CK-2) Rel Index Troponin T Total Protein Albumin 2.2 L Triglycerides LDL Cholesterol Direct HDL Cholesterol Urine WBC (Auto) Urine Creatinine 04/06/20 04/06/20 04/06/20 08:23 12:00 13:56 WBC RBC Hgb Hct MCV MCHC RDW Lymph % (Auto) [place] % (Auto) Lymph # [place] # Seg Neutrophils % Seg Neuts % (Manual) Lymphocytes % (Manual) Nucleated RBC % Seg Neutrophils # Seg Neutrophils # Man Lymphocytes # (Manual) Monocytes # (Manual) Eosinophils # (Manual) PT 27.0 H INR 2.44 H Heparin Anti-Xa Level ABG pH ABG pO2 ABG HCO3 ABG O2 Saturation ABG Base Excess ABG Hemoglobin Oxyhemoglobin Sodium Potassium Chloride Carbon Dioxide BUN Creatinine Glucose POC Glucose 226 H 176 H Hemoglobin A1c Calcium Phosphorus Magnesium Ferritin AST ALT Alkaline Phosphatase Total Creatine Kinase CK-MB (CK-2) CK-MB (CK-2) Rel Index Troponin T Total Protein Albumin Triglycerides LDL Cholesterol Direct HDL Cholesterol Urine WBC (Auto) Urine Creatinine 04/06/20 04/07/20 04/07/20 20:45 04:58 04:58 WBC RBC Hgb Hct MCV MCHC RDW Lymph % (Auto) [place] % (Auto) Lymph # [place] # Seg Neutrophils % Seg Neuts % (Manual) Lymphocytes % (Manual) Nucleated RBC % Seg Neutrophils # Seg Neutrophils # Man Lymphocytes # (Manual) Monocytes # (Manual) Eosinophils # (Manual) PT 30.9 H INR 2.89 H Heparin Anti-Xa Level ABG pH ABG pO2 ABG HCO3 ABG O2 Saturation ABG Base Excess ABG Hemoglobin Oxyhemoglobin Sodium Potassium 6.0 H Chloride Carbon Dioxide BUN 85 H Creatinine 2.1 H Glucose 177 H POC Glucose 139 H Hemoglobin A1c Calcium Phosphorus Magnesium Ferritin AST 351 H ALT 215 H Alkaline Phosphatase 332 H Total Creatine Kinase CK-MB (CK-2) CK-MB (CK-2) Rel Index Troponin T Total Protein Albumin 2.7 L Triglycerides LDL Cholesterol Direct HDL Cholesterol Urine WBC (Auto) Urine Creatinine 04/07/20 04/07/20 04/08/20 07:53 11:51 04:44 WBC 11.7 H RBC 3.07 L Hgb 9.1 L Hct 28.9 L MCV MCHC RDW 16.8 H Lymph % (Auto) 12.4 L [place] % (Auto) Lymph # [place] # Seg Neutrophils % 83.3 H Seg Neuts % (Manual) Lymphocytes % (Manual) Nucleated RBC % Seg Neutrophils # 9.7 H Seg Neutrophils # Man Lymphocytes # (Manual) Monocytes # (Manual) Eosinophils # (Manual) PT INR Heparin Anti-Xa Level ABG pH ABG pO2 ABG HCO3 ABG O2 Saturation ABG Base Excess ABG Hemoglobin Oxyhemoglobin Sodium Potassium Chloride Carbon Dioxide BUN Creatinine Glucose POC Glucose 167 H 120 H Hemoglobin A1c Calcium Phosphorus Magnesium Ferritin AST ALT Alkaline Phosphatase Total Creatine Kinase CK-MB (CK-2) CK-MB (CK-2) Rel Index Troponin T Total Protein Albumin Triglycerides LDL Cholesterol Direct HDL Cholesterol Urine WBC (Auto) Urine Creatinine 04/08/20 04/08/20 04/08/20 04:44 07:19 08:43 WBC RBC Hgb Hct MCV MCHC RDW Lymph % (Auto) [place] % (Auto) Lymph # [place] # Seg Neutrophils % Seg Neuts % (Manual) Lymphocytes % (Manual) Nucleated RBC % Seg Neutrophils # Seg Neutrophils # Man Lymphocytes # (Manual) Monocytes # (Manual) Eosinophils # (Manual) PT INR Heparin Anti-Xa Level ABG pH ABG pO2 ABG HCO3 ABG O2 Saturation ABG Base Excess ABG Hemoglobin Oxyhemoglobin Sodium Potassium 6.3 H* Chloride Carbon Dioxide 21 L BUN 89 H Creatinine 1.9 H Glucose 63 L POC Glucose 65 L 168 H Hemoglobin A1c Calcium Phosphorus Magnesium Ferritin AST 370 H ALT 211 H Alkaline Phosphatase 320 H Total Creatine Kinase CK-MB (CK-2) CK-MB (CK-2) Rel Index Troponin T Total Protein Albumin 2.6 L Triglycerides LDL Cholesterol Direct HDL Cholesterol Urine WBC (Auto) Urine Creatinine 04/08/20 04/08/20 04/08/20 12:53 16:38 21:47 WBC RBC Hgb Hct MCV MCHC RDW Lymph % (Auto) [place] % (Auto) Lymph # [place] # Seg Neutrophils % Seg Neuts % (Manual) Lymphocytes % (Manual) Nucleated RBC % Seg Neutrophils # Seg Neutrophils # Man Lymphocytes # (Manual) Monocytes # (Manual) Eosinophils # (Manual) PT INR Heparin Anti-Xa Level ABG pH ABG pO2 ABG HCO3 ABG O2 Saturation ABG Base Excess ABG Hemoglobin Oxyhemoglobin Sodium Potassium 6.0 H Chloride Carbon Dioxide BUN 90 H Creatinine 2.1 H Glucose 124 H POC Glucose 129 H 118 H Hemoglobin A1c Calcium Phosphorus Magnesium Ferritin AST ALT Alkaline Phosphatase Total Creatine Kinase CK-MB (CK-2) CK-MB (CK-2) Rel Index Troponin T Total Protein Albumin Triglycerides LDL Cholesterol Direct HDL Cholesterol Urine WBC (Auto) Urine Creatinine 04/09/20 04/09/20 04/09/20 03:45 08:04 19:10 WBC RBC Hgb Hct MCV MCHC RDW Lymph % (Auto) [place] % (Auto) Lymph # [place] # Seg Neutrophils % Seg Neuts % (Manual) Lymphocytes % (Manual) Nucleated RBC % Seg Neutrophils # Seg Neutrophils # Man Lymphocytes # (Manual) Monocytes # (Manual) Eosinophils # (Manual) PT INR Heparin Anti-Xa Level ABG pH 7.304 L ABG pO2 72.2 L ABG HCO3 ABG O2 Saturation 93.7 L ABG Base Excess -3.3 L ABG Hemoglobin 8.9 L Oxyhemoglobin 91.8 L Sodium Potassium 6.6 H* 6.5 H* Chloride Carbon Dioxide 21 L BUN 99 H 100 H Creatinine 2.2 H 2.3 H Glucose POC Glucose Hemoglobin A1c Calcium 8.2 L Phosphorus Magnesium Ferritin AST ALT Alkaline Phosphatase Total Creatine Kinase CK-MB (CK-2) CK-MB (CK-2) Rel Index Troponin T Total Protein Albumin Triglycerides LDL Cholesterol Direct HDL Cholesterol Urine WBC (Auto) Urine Creatinine 04/10/20 04/10/20 04/10/20 05:48 05:48 08:53 WBC RBC 3.01 L Hgb 8.9 L Hct 28.4 L MCV 95 H MCHC 31 L RDW 17.6 H Lymph % (Auto) 11.4 L [place] % (Auto) Lymph # 1.1 L [place] # Seg Neutrophils % 81.1 H Seg Neuts % (Manual) Lymphocytes % (Manual) Nucleated RBC % Seg Neutrophils # 8.1 H Seg Neutrophils # Man Lymphocytes # (Manual) Monocytes # (Manual) Eosinophils # (Manual) PT INR Heparin Anti-Xa Level ABG pH ABG pO2 ABG HCO3 ABG O2 Saturation ABG Base Excess ABG Hemoglobin Oxyhemoglobin Sodium Potassium 5.2 H Chloride Carbon Dioxide BUN 104 H Creatinine 2.2 H Glucose 129 H POC Glucose 110 H Hemoglobin A1c Calcium Phosphorus Magnesium 2.80 H Ferritin AST 502 H ALT 249 H Alkaline Phosphatase 323 H Total Creatine Kinase CK-MB (CK-2) CK-MB (CK-2) Rel Index Troponin T Total Protein Albumin 2.5 L Triglycerides LDL Cholesterol Direct HDL Cholesterol Urine WBC (Auto) Urine Creatinine 04/10/20 04/10/20 04/10/20 11:42 16:05 21:35 WBC RBC Hgb Hct MCV MCHC RDW Lymph % (Auto) [place] % (Auto) Lymph # [place] # Seg Neutrophils % Seg Neuts % (Manual) Lymphocytes % (Manual) Nucleated RBC % Seg Neutrophils # Seg Neutrophils # Man Lymphocytes # (Manual) Monocytes # (Manual) Eosinophils # (Manual) PT INR Heparin Anti-Xa Level ABG pH ABG pO2 ABG HCO3 ABG O2 Saturation ABG Base Excess ABG Hemoglobin Oxyhemoglobin Sodium Potassium Chloride Carbon Dioxide BUN Creatinine Glucose POC Glucose 135 H 137 H 151 H Hemoglobin A1c Calcium Phosphorus Magnesium Ferritin AST ALT Alkaline Phosphatase Total Creatine Kinase CK-MB (CK-2) CK-MB (CK-2) Rel Index Troponin T Total Protein Albumin Triglycerides LDL Cholesterol Direct HDL Cholesterol Urine WBC (Auto) Urine Creatinine 04/11/20 04/11/20 04/11/20 06:26 06:26 06:26 WBC RBC 2.89 L Hgb 8.6 L Hct 27.4 L MCV 95 H MCHC 31 L RDW 17.5 H Lymph % (Auto) 9.9 L [place] % (Auto) Lymph # 1.0 L [place] # Seg Neutrophils % 85.7 H Seg Neuts % (Manual) Lymphocytes % (Manual) Nucleated RBC % Seg Neutrophils # 8.8 H Seg Neutrophils # Man Lymphocytes # (Manual) Monocytes # (Manual) Eosinophils # (Manual) PT 24.0 H INR 2.10 H Heparin Anti-Xa Level ABG pH ABG pO2 ABG HCO3 ABG O2 Saturation ABG Base Excess ABG Hemoglobin Oxyhemoglobin Sodium 146 H Potassium 5.3 H Chloride 108.2 H Carbon Dioxide BUN 109 H Creatinine 2.1 H Glucose 160 H POC Glucose Hemoglobin A1c Calcium Phosphorus Magnesium Ferritin AST 298 H ALT 207 H Alkaline Phosphatase 274 H Total Creatine Kinase CK-MB (CK-2) CK-MB (CK-2) Rel Index Troponin T Total Protein Albumin 2.5 L Triglycerides LDL Cholesterol Direct HDL Cholesterol Urine WBC (Auto) Urine Creatinine 04/11/20 04/11/20 04/11/20 07:57 11:33 16:07 WBC RBC Hgb Hct MCV MCHC RDW Lymph % (Auto) [place] % (Auto) Lymph # [place] # Seg Neutrophils % Seg Neuts % (Manual) Lymphocytes % (Manual) Nucleated RBC % Seg Neutrophils # Seg Neutrophils # Man Lymphocytes # (Manual) Monocytes # (Manual) Eosinophils # (Manual) PT INR Heparin Anti-Xa Level ABG pH ABG pO2 ABG HCO3 ABG O2 Saturation ABG Base Excess ABG Hemoglobin Oxyhemoglobin Sodium Potassium Chloride Carbon Dioxide BUN Creatinine Glucose POC Glucose 170 H 167 H 140 H Hemoglobin A1c Calcium Phosphorus Magnesium Ferritin AST ALT Alkaline Phosphatase Total Creatine Kinase CK-MB (CK-2) CK-MB (CK-2) Rel Index Troponin T Total Protein Albumin Triglycerides LDL Cholesterol Direct HDL Cholesterol Urine WBC (Auto) Urine Creatinine 04/11/20 04/11/20 04/11/20 16:30 16:30 16:50 WBC RBC Hgb Hct MCV MCHC RDW Lymph % (Auto) [place] % (Auto) Lymph # [place] # Seg Neutrophils % Seg Neuts % (Manual) Lymphocytes % (Manual) Nucleated RBC % Seg Neutrophils # Seg Neutrophils # Man Lymphocytes # (Manual) Monocytes # (Manual) Eosinophils # (Manual) PT INR Heparin Anti-Xa Level ABG pH 7.325 L ABG pO2 304.4 H ABG HCO3 ABG O2 Saturation 99.5 H ABG Base Excess -4.4 L ABG Hemoglobin 10.9 L Oxyhemoglobin Sodium Potassium Chloride Carbon Dioxide BUN Creatinine Glucose POC Glucose Hemoglobin A1c Calcium Phosphorus Magnesium Ferritin AST ALT Alkaline Phosphatase Total Creatine Kinase CK-MB (CK-2) CK-MB (CK-2) Rel Index Troponin T Total Protein Albumin Triglycerides LDL Cholesterol Direct HDL Cholesterol Urine WBC (Auto) 16.0 H Urine Creatinine 60.0 H 04/11/20 04/11/20 04/11/20 18:17 18:17 18:57 WBC RBC 2.71 L Hgb 7.9 L Hct 26.1 L MCV 96 H MCHC 30 L RDW 18.3 H Lymph % (Auto) [place] % (Auto) Lymph # [place] # Seg Neutrophils % Seg Neuts % (Manual) 89.0 H Lymphocytes % (Manual) 7.0 L Nucleated RBC % Seg Neutrophils # Seg Neutrophils # Man 8.8 H Lymphocytes # (Manual) 0.7 L Monocytes # (Manual) Eosinophils # (Manual) PT INR Heparin Anti-Xa Level ABG pH ABG pO2 ABG HCO3 ABG O2 Saturation ABG Base Excess ABG Hemoglobin Oxyhemoglobin Sodium 146 H Potassium 5.8 H Chloride 107.5 H Carbon Dioxide 21 L BUN 111 H Creatinine 2.2 H Glucose 176 H POC Glucose 199 H Hemoglobin A1c Calcium Phosphorus 7.40 H Magnesium 2.90 H Ferritin AST 230 H ALT 163 H Alkaline Phosphatase 236 H Total Creatine Kinase 351 H CK-MB (CK-2) CK-MB (CK-2) Rel Index Troponin T 3.950 H* Total Protein 5.7 L Albumin 2.1 L Triglycerides LDL Cholesterol Direct HDL Cholesterol 19 L Urine WBC (Auto) Urine Creatinine 04/11/20 04/12/20 04/12/20 21:21 01:41 04:45 WBC RBC Hgb Hct MCV MCHC RDW Lymph % (Auto) [place] % (Auto) Lymph # [place] # Seg Neutrophils % Seg Neuts % (Manual) Lymphocytes % (Manual) Nucleated RBC % Seg Neutrophils # Seg Neutrophils # Man Lymphocytes # (Manual) Monocytes # (Manual) Eosinophils # (Manual) PT INR Heparin Anti-Xa Level ABG pH 7.451 H ABG pO2 ABG HCO3 ABG O2 Saturation ABG Base Excess ABG Hemoglobin 6.2 L Oxyhemoglobin Sodium 147 H Potassium 6.0 H Chloride 111.8 H Carbon Dioxide 21 L BUN 117 H Creatinine 2.6 H Glucose 201 H POC Glucose 248 H Hemoglobin A1c Calcium 8.0 L Phosphorus Magnesium Ferritin AST ALT Alkaline Phosphatase Total Creatine Kinase CK-MB (CK-2) CK-MB (CK-2) Rel Index Troponin T Total Protein Albumin Triglycerides LDL Cholesterol Direct HDL Cholesterol Urine WBC (Auto) Urine Creatinine 04/12/20 04/12/20 04/12/20 07:22 07:22 07:22 WBC 12.1 H RBC 2.96 L Hgb 8.7 L Hct 28.1 L MCV 95 H MCHC 31 L RDW 17.7 H Lymph % (Auto) 7.1 L [place] % (Auto) Lymph # 0.9 L [place] # Seg Neutrophils % 85.8 H Seg Neuts % (Manual) Lymphocytes % (Manual) Nucleated RBC % Seg Neutrophils # 10.4 H Seg Neutrophils # Man Lymphocytes # (Manual) Monocytes # (Manual) Eosinophils # (Manual) PT 22.9 H INR 1.99 H Heparin Anti-Xa Level ABG pH ABG pO2 ABG HCO3 ABG O2 Saturation ABG Base Excess ABG Hemoglobin Oxyhemoglobin Sodium 147 H Potassium 5.2 H Chloride 109.8 H Carbon Dioxide 20 L BUN 120 H Creatinine 2.8 H Glucose 158 H POC Glucose Hemoglobin A1c Calcium Phosphorus Magnesium 3.00 H Ferritin AST 195 H ALT 162 H Alkaline Phosphatase 244 H Total Creatine Kinase CK-MB (CK-2) CK-MB (CK-2) Rel Index Troponin T Total Protein 5.9 L Albumin 2.4 L Triglycerides LDL Cholesterol Direct HDL Cholesterol Urine WBC (Auto) Urine Creatinine 04/12/20 11:54 WBC RBC Hgb Hct MCV MCHC RDW Lymph % (Auto) [place] % (Auto) Lymph # [place] # Seg Neutrophils % Seg Neuts % (Manual) Lymphocytes % (Manual) Nucleated RBC % Seg Neutrophils # Seg Neutrophils # Man Lymphocytes # (Manual) Monocytes # (Manual) Eosinophils # (Manual) PT INR Heparin Anti-Xa Level ABG pH ABG pO2 ABG HCO3 ABG O2 Saturation ABG Base Excess ABG Hemoglobin Oxyhemoglobin Sodium Potassium Chloride Carbon Dioxide BUN Creatinine Glucose POC Glucose 213 H Hemoglobin A1c Calcium Phosphorus Magnesium Ferritin AST ALT Alkaline Phosphatase Total Creatine Kinase CK-MB (CK-2) CK-MB (CK-2) Rel Index Troponin T Total Protein Albumin Triglycerides LDL Cholesterol Direct HDL Cholesterol Urine WBC (Auto) Urine Creatinine
--- NOTE | 2020-04-12 17:09 | Ultrasound Report ---
US chest INDICATION / CLINICAL INFORMATION: Bilateral pleural effusions; SOB. COMPARISON: Recent radiographs were reviewed. FINDINGS: Right pleural effusion is noted volume of approximately 350 cc. Left pleural effusion volume is approximately 400 cc. IMPRESSION: 1. Small bilateral pleural effusions as above. Signer Name: Tono Morrison MD Signed: 04/12/2020 5:04 PM Workstation Name: [id number]
--- NOTE | 2020-04-12 18:04 | Event Note ---
Date: 04/12/20 Had a phone conference with the patient's 2 sons Mr. Mehran Obrien and Mr. Abhishek Obrien along with returned case inspector Ms. Williamson And patient safety representative and risk-management Ms. Henderson. We discussed in detail patient Mr. Cristino Obrien's clinical condition Multiorgan involvement and failure, recent new events of acute stroke, cardiac arrest, anoxic brain injury, respiratory failure requiring Mechanical ventilation, episodes of V. tach this morning, multiple consultants/specialists [cardiology, pulmonary critical, neurology, nephrology, gastroenterology, vascular and infectious diseases]evaluation and recommendations, important test results and reports And the poor prognosis as well as the CODE STATUS. Both the sons Mr. Mehran Obrien and Abhishek Obrien had many questions CM Ms. Williamson, patient safety representative/risk management MsMarti Henderson and I answered all their questions. Both the brothers after much discussions decided to continue full CODE STATUS at this point. However they indicated that after talking to the neurologist 1 more time, may make the decisions regarding the goals of treatment. Patient's nurse was informed of the above decisions. Patient had bradycardia on amiodarone drip, drip was discontinued by cardiology
[2020-04-12 21:38] LABS: Calcium 8.7 mg/dL (8.4-10.2)
[2020-04-13 06:04] LABS: Basophils % (Auto) 0.2 % (0.0-1.8); Eosinophils % (Auto) 0.1 % (0.0-4.3); Hematocrit 25.1 % (35.5-45.6); Lymphocytes # (Auto) 1.2 K/mm3 (1.2-5.4); Lymphocytes % (Auto) 9.1 % (13.4-35.0); Mean Corpuscular HGB Conc 32 % (32-34); Mean Corpuscular Volume 94 fl (84-94); Monocytes # (Auto) 0.9 K/mm3 (0.0-0.8); Monocytes % (Auto) 6.6 % (0.0-7.3); Platelet Count 167 K/mm3 (140-440); Red Blood Count 2.68 M/mm3 (3.65-5.03); Red Cell Distribution Width 17.4 % (13.2-15.2)
[2020-04-13 06:06] LABS: ABG Base Excess -2.8 mmol/L (-2.0-3.0); ABG HCO3 21.1 mmol/L (20.0-26.0); ABG Methemoglobin 0.5 % (0.0-1.5); ABG PCO2 32.5 mm Hg; ABG PH 7.43 pH Units (7.350-7.450); ABG PO2 161.4 mm Hg (80.0-90.0)
[2020-04-13 06:09] LABS: INR 2.55 (0.87-1.13)
[2020-04-13 06:28] LABS: Albumin 2.3 g/dL (3.9-5); Calcium 8.3 mg/dL (8.4-10.2)
[2020-04-13] MEDS: METOPROLOL TARTRATE 50 MG TAB PO SCH ×3 (06:37→23:00)
[2020-04-13] MEDS: INSULIN LISPRO 100 UNIT/ML VIAL 3 mL SUB-Q SCH ×4 (06:40→18:34)
--- NOTE | 2020-04-13 07:34 | XRay Report ---
CHEST 1 VIEW INDICATION: follow up respiratory failure. COMPARISON: Previous day. FINDINGS: Support devices: Unchanged. Heart: Stable cardiomegaly. Lungs/Pleura: Persistent left basilar effusion/volume loss and bilateral opacity. Overall minimal imp rovement. Additional findings: None. IMPRESSION: Minimal improvement. Signer Name: Osmani Condon MD Signed: 04/13/2020 7:30 AM Workstation Name: [id number]
--- NOTE | 2020-04-13 08:19 | Progress Note ---
Assessment and Plan Cardiopulmonary arrest with ROSC, orally intubated on MVS; Acute limb ischemia S/P revascularization surgery s/p Left BKA Obstructive sleep apnea. History of chronic obstructive pulmonary disease. Diabetes. History of coronary artery disease. Non-ST elevation myocardial infarction. Acute coronary syndrome. History of cerebrovascular accident. Acute renal failure, vasomotor nephropathy/ATN -Wean vasopressor support for MAP >65 -Give a fluid bolus, 1L LR now - continue to hold full anticoagulation re: risk of hemorrhagic transformation of acute stroke - Daily SAT and SBT assessment as tolerated - continue to wean supplemental oxygen for target O2 sat's > 90% acutely - VAP bundle addressed - continue lung protective strategies - continue bronchodilators with pulmonary hygiene per RT - wean per pulmonary driven protocols otherwise - sedation prn for target RASS 0 to -1 - continue wound care per WCN / RN - accuchecks with glycemic control per SSI (While critically ill target blood glucose of 140-180 mg/dL; avoid hypoglycemia) - wean supplemental oxygen for target O2 sat's > 90% acutely - prn bronchodilators with pulmonary hygiene per RT - avoid benzodiazepines, reduce the possibility of delirium - Maintenance of sleep-wake cycle, avoid delirium - aspiration precautions - mobility protocol, off loading for pressure ulcer prevention - Monitor hemodynamics closely CONDITION: CRITICAL PROGNOSIS: GUARDED CODE STATUS: FULL CODE The high probability of a clinically significant, sudden or life-threatening deterioration of the [respiratory, cardiovascular & neurologic] system(s) required my full and direct attention, intervention and personal management. The aggregate critical care time was [35] minutes without overlap. Time includes spent on; [x] Data Review and interpretation [x] Patient assessment and monitoring of vital signs [x] Documentation [x] Medication orders and management Subjective Date of service: 04/13/20 Principal diagnosis: Anoxic brain injury, stroke Interval history: Patient is seen today for: Cardiopulmonary arrest with ROSC, orally intubated on MVS; Acute limb ischemia S/P revascularization surgery; STARR; COPD; Acute hypoxemic respiratory failure; DM II; NSTEMI; H/O CVA Seen and examined at bedside; 24hour events reviewed; nursing and respiratory care staff consulted; no adverse overnight events reported to me; resting peacefully in bed; decompensated during MRI a few days ago and s/p CODE BLUE; now on MVS; no emesis or overt aspiration; MRI documented acute/subacute infarct without hemorrhagic transformation Remains on Norepoinephrine at 8g, Tyson catheter and PICC line in place Objective Vital Signs - 12hr 04/12/20 04/12/20 04/12/20 20:21 20:31 20:36 Temperature Pulse Rate 83 82 103 H Pulse Rate [ Anterior Bilateral Throughout] Pulse Rate [ Apical] Respiratory 21 20 Rate Respiratory Rate [Anterior Bilateral Throughout] Blood Pressure 127/62 101/72 101/72 O2 Sat by Pulse 97 97 96 Oximetry 04/12/20 04/12/20 04/12/20 20:41 20:50 20:51 Temperature Pulse Rate 103 H 69 Pulse Rate [ 104 H Anterior Bilateral Throughout] Pulse Rate [ Apical] Respiratory 19 20 Rate Respiratory 25 H Rate [Anterior Bilateral Throughout] Blood Pressure 101/72 106/65 O2 Sat by Pulse 96 100 Oximetry 04/12/20 04/12/20 04/12/20 21:01 21:11 21:21 Temperature Pulse Rate 82 80 81 Pulse Rate [ Anterior Bilateral Throughout] Pulse Rate [ Apical] Respiratory 17 20 25 H Rate Respiratory Rate [Anterior Bilateral Throughout] Blood Pressure 110/53 110/53 109/49 O2 Sat by Pulse 97 97 97 Oximetry 04/12/20 04/12/20 04/12/20 21:30 21:41 21:51 Temperature Pulse Rate 81 82 81 Pulse Rate [ Anterior Bilateral Throughout] Pulse Rate [ Apical] Respiratory 21 26 H 22 Rate Respiratory Rate [Anterior Bilateral Throughout] Blood Pressure 111/48 111/48 100/47 O2 Sat by Pulse 97 97 97 Oximetry 04/12/20 04/12/20 04/12/20 22:01 22:11 22:21 Temperature Pulse Rate 81 81 81 Pulse Rate [ Anterior Bilateral Throughout] Pulse Rate [ Apical] Respiratory 21 18 25 H Rate Respiratory Rate [Anterior Bilateral Throughout] Blood Pressure 100/47 100/47 108/44 O2 Sat by Pulse 98 98 97 Oximetry 04/12/20 04/12/20 04/12/20 22:31 22:41 22:51 Temperature Pulse Rate 86 81 80 Pulse Rate [ Anterior Bilateral Throughout] Pulse Rate [ Apical] Respiratory 24 22 25 H Rate Respiratory Rate [Anterior Bilateral Throughout] Blood Pressure 104/51 104/51 105/46 O2 Sat by Pulse 97 97 97 Oximetry 04/12/20 04/12/20 04/12/20 22:54 23:00 23:11 Temperature 98.4 F Pulse Rate 81 81 Pulse Rate [ Anterior Bilateral Throughout] Pulse Rate [ Apical] Respiratory 22 19 Rate Respiratory Rate [Anterior Bilateral Throughout] Blood Pressure 108/60 108/60 O2 Sat by Pulse 97 97 Oximetry 04/12/20 04/12/20 04/12/20 23:21 23:30 23:41 Temperature Pulse Rate 104 H 101 H 77 Pulse Rate [ Anterior Bilateral Throughout] Pulse Rate [ Apical] Respiratory 22 19 20 Rate Respiratory Rate [Anterior Bilateral Throughout] Blood Pressure 108/60 113/70 113/70 O2 Sat by Pulse 97 97 97 Oximetry 04/12/20 04/13/20 04/13/20 23:51 00:00 00:01 Temperature Pulse Rate 79 103 H 80 Pulse Rate [ Anterior Bilateral Throughout] Pulse Rate [ 103 H Apical] Respiratory 20 23 Rate Respiratory Rate [Anterior Bilateral Throughout] Blood Pressure 108/65 103/40 O2 Sat by Pulse 98 100 96 Oximetry 04/13/20 04/13/20 04/13/20 00:11 00:21 00:30 Temperature Pulse Rate 81 82 87 Pulse Rate [ Anterior Bilateral Throughout] Pulse Rate [ Apical] Respiratory 20 24 21 Rate Respiratory Rate [Anterior Bilateral Throughout] Blood Pressure 103/40 107/44 100/50 O2 Sat by Pulse 97 98 96 Oximetry 04/13/20 04/13/20 04/13/20 00:41 00:51 01:00 Temperature Pulse Rate 80 82 102 H Pulse Rate [ Anterior Bilateral Throughout] Pulse Rate [ Apical] Respiratory 18 22 18 Rate Respiratory Rate [Anterior Bilateral Throughout] Blood Pressure 100/50 102/46 113/69 O2 Sat by Pulse 96 97 97 Oximetry 04/13/20 04/13/20 04/13/20 01:08 01:11 01:21 Temperature Pulse Rate 101 H 101 H 101 H Pulse Rate [ Anterior Bilateral Throughout] Pulse Rate [ Apical] Respiratory 20 18 Rate Respiratory Rate [Anterior Bilateral Throughout] Blood Pressure 113/69 113/69 103/66 O2 Sat by Pulse 97 97 97 Oximetry 04/13/20 04/13/20 04/13/20 01:30 01:41 01:51 Temperature Pulse Rate 101 H 100 H 100 H Pulse Rate [ Anterior Bilateral Throughout] Pulse Rate [ Apical] Respiratory 18 17 19 Rate Respiratory Rate [Anterior Bilateral Throughout] Blood Pressure 107/66 107/66 111/69 O2 Sat by Pulse 97 98 97 Oximetry 04/13/20 04/13/2004/13/20 02:00 02:11 02:21 Temperature Pulse Rate 99 H 100 H 100 H Pulse Rate [ Anterior Bilateral Throughout] Pulse Rate [ Apical] Respiratory 18 19 18 Rate Respiratory Rate [Anterior Bilateral Throughout] Blood Pressure 110/68 110/68 109/65 O2 Sat by Pulse 97 97 97 Oximetry 04/13/20 04/13/20 04/13/20 02:30 02:41 02:51 Temperature Pulse Rate 100 H 99 H 99 H Pulse Rate [ Anterior Bilateral Throughout] Pulse Rate [ Apical] Respiratory 18 19 20 Rate Respiratory Rate [Anterior Bilateral Throughout] Blood Pressure 112/70 112/70 104/53 O2 Sat by Pulse 97 97 97 Oximetry 04/13/20 04/13/20 04/13/20 03:00 03:11 03:21 Temperature Pulse Rate 99 H 99 H 99 H Pulse Rate [ Anterior Bilateral Throughout] Pulse Rate [ Apical] Respiratory 18 20 20 Rate Respiratory Rate [Anterior Bilateral Throughout] Blood Pressure 107/71 107/71 109/70 O2 Sat by Pulse 97 97 97 Oximetry 04/13/20 04/13/20 04/13/20 03:30 03:34 03:41 Temperature 99.4 F Pulse Rate 99 H 80 Pulse Rate [ Anterior Bilateral Throughout] Pulse Rate [ Apical] Respiratory 19 20 Rate Respiratory Rate [Anterior Bilateral Throughout] Blood Pressure 116/75 116/75 O2 Sat by Pulse 97 97 Oximetry 04/13/20 04/13/20 04/13/20 03:51 04:00 04:01 Temperature Pulse Rate 80 82 81 Pulse Rate [ Anterior Bilateral Throughout] Pulse Rate [ 82 Apical] Respiratory 20 22 Rate Respiratory Rate [Anterior Bilateral Throughout] Blood Pressure 107/59 114/60 O2 Sat by Pulse 97 100 96 Oximetry 04/13/20 04/13/20 04/13/20 04:11 04:21 04:23 Temperature Pulse Rate 103 H 101 H 102 H Pulse Rate [ Anterior Bilateral Throughout] Pulse Rate [ Apical] Respiratory 18 20 Rate Respiratory Rate [Anterior Bilateral Throughout] Blood Pressure 114/60 111/68 111/68 O2 Sat by Pulse 96 97 97 Oximetry 04/13/20 04/13/20 04/13/20 04:30 04:41 04:51 Temperature Pulse Rate 101 H 100 H 101 H Pulse Rate [ Anterior Bilateral Throughout] Pulse Rate [ Apical] Respiratory 18 21 20 Rate Respiratory Rate [Anterior Bilateral Throughout] Blood Pressure 96/63 96/63 108/63 O2 Sat by Pulse 97 97 97 Oximetry 04/13/20 04/13/20 04/13/20 05:00 05:11 05:21 Temperature Pulse Rate 101 H 101 H 100 H Pulse Rate [ Anterior Bilateral Throughout] Pulse Rate [ Apical] Respiratory 19 19 18 Rate Respiratory Rate [Anterior Bilateral Throughout] Blood Pressure 104/61 104/61 106/64 O2 Sat by Pulse 97 97 97 Oximetry 04/13/20 04/13/20 04/13/20 05:31 05:41 05:51 Temperature Pulse Rate 95 H 81 80 Pulse Rate [ Anterior Bilateral Throughout] Pulse Rate [ Apical] Respiratory 19 19 22 Rate Respiratory Rate [Anterior Bilateral Throughout] Blood Pressure 87/45 87/45 112/61 O2 Sat by Pulse 97 97 96 Oximetry 04/13/20 04/13/20 04/13/20 06:01 06:11 06:21 Temperature Pulse Rate 82 81 82 Pulse Rate [ Anterior Bilateral Throughout] Pulse Rate [ Apical] Respiratory 20 20 19 Rate Respiratory Rate [Anterior Bilateral Throughout] Blood Pressure 103/50 103/50 98/41 O2 Sat by Pulse 96 96 96 Oximetry 04/13/20 04/13/20 04/13/20 06:31 06:37 06:41 Temperature Pulse Rate 83 81 82 Pulse Rate [ Anterior Bilateral Throughout] Pulse Rate [ Apical] Respiratory 22 20 Rate Respiratory Rate [Anterior Bilateral Throughout] Blood Pressure 98/41 103/48 98/41 O2 Sat by Pulse 97 96 Oximetry 04/13/20 06:51 Temperature Pulse Rate 101 H Pulse Rate [ Anterior Bilateral Throughout] Pulse Rate [ Apical] Respiratory 17 Rate Respiratory Rate [Anterior Bilateral Throughout] Blood Pressure 108/66 O2 Sat by Pulse 97 Oximetry Constitutional: appears uncomfortable, other (middle aged obese male intubated on MVS and without ventilator dyssynchrony) Eyes: non-icteric ENT: oropharynx moist, other (ETT 23 cm CARSON) Neck: supple, no lymphadenopathy, no JVD Effort: mildly labored Ascultation: Left: diminished breath sounds (base), Bilateral: clear, rhonchi, other (+ referred upper airway sounds) Percussion: Bilateral: not dull Cardiovascular: irregular rhythm Gastrointestinal: normoactive bowel sounds, soft, non-tender, non-distended (protuberant) Integumentary: rash Extremities: cool, edema (right lower extremity), other (left BKA with clean dressing) Neurologic: pupils equal and round, unable to assess Psychiatric: other (encephalopathic) CBC and BMP: 04/14/20 07:00 04/14/20 07:00 ABG, PT/INR, D-dimer: ABG ABG pH 7.430 pH Units (7.350-7.450) 04/13/20 04:25 ABG pCO2 32.5 mm Hg 04/13/20 04:25 ABG pO2 161.4 mm Hg (80.0-90.0) H 04/13/20 04:25 ABG O2 Saturation 99.0 % (95.0-99.0) 04/13/20 04:25 PT/INR, D-dimer PT 27.8 Sec. (12.2-14.9) H 04/13/20 04:35 INR 2.55 (0.87-1.13) H 04/13/20 04:35 Abnormal lab findings: Abnormal Labs 03/18/20 03/18/20 03/18/20 18:28 18:28 20:56 WBC 12.3 H RBC Hgb Hct MCV MCHC RDW Lymph % (Auto) 11.0 L Brown % (Auto) 9.8 H Lymph # Brown # 1.2 H Seg Neutrophils % 78.4 H Seg Neuts % (Manual) Lymphocytes % (Manual) Nucleated RBC % Seg Neutrophils # 9.6 H Seg Neutrophils # Man Lymphocytes # (Manual) Monocytes # (Manual) Eosinophils # (Manual) PT INR Heparin Anti-Xa Level ABG pH ABG pO2 ABG HCO3 ABG O2 Saturation ABG Base Excess ABG Hemoglobin Oxyhemoglobin Sodium 132 L Potassium Chloride 91.9 L Carbon Dioxide 20 L BUN Creatinine 1.4 H Glucose 406 H POC Glucose Hemoglobin A1c Calcium Phosphorus Magnesium Ferritin AST ALT Alkaline Phosphatase Total Creatine Kinase 2727 H 2492 H CK-MB (CK-2) 135.9 H 107.2 H CK-MB (CK-2) Rel Index 4.3 H Troponin T 5.110 H* 3.960 H* D Total Protein Albumin Triglycerides 188 H LDL Cholesterol Direct 141 H HDL Cholesterol Urine WBC (Auto) Urine Creatinine 03/18/20 03/19/20 03/19/20 22:21 01:57 08:08 WBC RBC Hgb Hct MCV MCHC RDW Lymph % (Auto) Brown % (Auto) Lymph # Brown # Seg Neutrophils % Seg Neuts % (Manual) Lymphocytes % (Manual) Nucleated RBC % Seg Neutrophils # Seg Neutrophils # Man Lymphocytes # (Manual) Monocytes # (Manual) Eosinophils # (Manual) PT INR Heparin Anti-Xa Level ABG pH ABG pO2 ABG HCO3 ABG O2 Saturation ABG Base Excess ABG Hemoglobin Oxyhemoglobin Sodium Potassium Chloride Carbon Dioxide BUN Creatinine Glucose POC Glucose 317 H Hemoglobin A1c 11.0 H Calcium Phosphorus Magnesium Ferritin AST ALT Alkaline Phosphatase Total Creatine Kinase 7255 H CK-MB (CK-2) 79.3 H CK-MB (CK-2) Rel Index Troponin T 5.540 H* D Total Protein Albumin Triglycerides LDL Cholesterol Direct HDL Cholesterol Urine WBC (Auto) Urine Creatinine 03/19/20 03/19/20 03/19/20 08:08 08:08 08:08 WBC 13.3 H RBC Hgb Hct MCV MCHC RDW Lymph % (Auto) 10.7 L Brown % (Auto) 8.5 H Lymph # Brown # 1.1 H Seg Neutrophils % 80.0 H Seg Neuts % (Manual) Lymphocytes % (Manual) Nucleated RBC % Seg Neutrophils # 10.6 H Seg Neutrophils # Man Lymphocytes # (Manual) Monocytes # (Manual) Eosinophils # (Manual) PT INR Heparin Anti-Xa Level 0.10 L ABG pH ABG pO2 ABG HCO3 ABG O2 Saturation ABG Base Excess ABG Hemoglobin Oxyhemoglobin Sodium 133 L Potassium 5.1 H Chloride Carbon Dioxide 17 L BUN 23 H Creatinine Glucose 313 H POC Glucose Hemoglobin A1c Calcium Phosphorus Magnesium Ferritin AST ALT Alkaline Phosphatase Total Creatine Kinase CK-MB (CK-2) CK-MB (CK-2) Rel Index Troponin T Total Protein Albumin Triglycerides LDL Cholesterol Direct HDL Cholesterol Urine WBC (Auto) Urine Creatinine 03/19/20 03/19/20 03/19/20 15:40 18:23 21:32 WBC RBC Hgb Hct MCV MCHC RDW Lymph % (Auto) Brown % (Auto) Lymph # Brown # Seg Neutrophils % Seg Neuts % (Manual) Lymphocytes % (Manual) Nucleated RBC % Seg Neutrophils # Seg Neutrophils # Man Lymphocytes # (Manual) Monocytes # (Manual) Eosinophils # (Manual) PT INR Heparin Anti-Xa Level < 0.10 L ABG pH ABG pO2 ABG HCO3 18.3 L ABG O2 Saturation ABG Base Excess -5.4 L ABG Hemoglobin 12.2 L Oxyhemoglobin 94.6 L Sodium Potassium Chloride Carbon Dioxide BUN Creatinine Glucose POC Glucose 348 H Hemoglobin A1c Calcium Phosphorus Magnesium Ferritin AST ALT Alkaline Phosphatase Total Creatine Kinase CK-MB (CK-2) CK-MB (CK-2) Rel Index Troponin T Total Protein Albumin Triglycerides LDL Cholesterol Direct HDL Cholesterol Urine WBC (Auto) Urine Creatinine 03/20/20 03/20/20 03/20/20 04:35 05:12 05:12 WBC 11.1 H RBC 3.63 L Hgb 11.0 L Hct 32.7 L D MCV MCHC RDW Lymph % (Auto) Brown % (Auto) 8.1 H Lymph # Brown # 0.9 H Seg Neutrophils % 75.8 H Seg Neuts % (Manual) Lymphocytes % (Manual) Nucleated RBC % Seg Neutrophils # 8.4 H Seg Neutrophils # Man Lymphocytes # (Manual) Monocytes # (Manual) Eosinophils # (Manual) PT INR Heparin Anti-Xa Level 0.28 L ABG pH ABG pO2 68.3 L ABG HCO3 ABG O2 Saturation 94.3 L ABG Base Excess ABG Hemoglobin 7.1 L Oxyhemoglobin 92.3 L Sodium Potassium Chloride Carbon Dioxide BUN Creatinine Glucose POC Glucose Hemoglobin A1c Calcium Phosphorus Magnesium Ferritin AST ALT Alkaline Phosphatase Total Creatine Kinase CK-MB (CK-2) CK-MB (CK-2) Rel Index Troponin T Total Protein Albumin Triglycerides LDL Cholesterol Direct HDL Cholesterol Urine WBC (Auto) Urine Creatinine 03/20/20 03/20/20 03/20/20 05:12 07:49 12:15 WBC RBC Hgb Hct MCV MCHC RDW Lymph % (Auto) Brown % (Auto) Lymph # Brown # Seg Neutrophils % Seg Neuts % (Manual) Lymphocytes % (Manual) Nucleated RBC % Seg Neutrophils # Seg Neutrophils # Man Lymphocytes # (Manual) Monocytes # (Manual) Eosinophils # (Manual) PT INR Heparin Anti-Xa Level ABG pH ABG pO2 ABG HCO3 ABG O2 Saturation ABG Base Excess ABG Hemoglobin Oxyhemoglobin Sodium 134 L Potassium Chloride Carbon Dioxide 21 L BUN 23 H Creatinine Glucose 275 H POC Glucose 294 H 357 H Hemoglobin A1c Calcium Phosphorus Magnesium Ferritin AST ALT Alkaline Phosphatase Total Creatine Kinase CK-MB (CK-2) CK-MB (CK-2) Rel Index Troponin T 3.200 H* D Total Protein Albumin Triglycerides LDL Cholesterol Direct HDL Cholesterol Urine WBC (Auto) Urine Creatinine 03/20/20 03/20/20 03/21/20 17:16 22:08 04:44 WBC RBC Hgb Hct MCV MCHC RDW Lymph % (Auto) Brown % (Auto) Lymph # Brown # Seg Neutrophils % Seg Neuts % (Manual) Lymphocytes % (Manual) Nucleated RBC % Seg Neutrophils # Seg Neutrophils # Man Lymphocytes # (Manual) Monocytes # (Manual) Eosinophils # (Manual) PT INR Heparin Anti-Xa Level ABG pH ABG pO2 ABG HCO3 ABG O2 Saturation ABG Base Excess ABG Hemoglobin Oxyhemoglobin Sodium 136 L Potassium Chloride Carbon Dioxide 18 L BUN 26 H Creatinine Glucose 266 H POC Glucose 327 H 292 H Hemoglobin A1c Calcium 8.1 L Phosphorus Magnesium Ferritin AST ALT Alkaline Phosphatase Total Creatine Kinase CK-MB (CK-2) CK-MB (CK-2) Rel Index Troponin T Total Protein Albumin Triglycerides LDL Cholesterol Direct HDL Cholesterol Urine WBC (Auto) Urine Creatinine 03/21/20 03/21/20 03/21/20 07:50 12:25 15:53 WBC RBC Hgb Hct MCV MCHC RDW Lymph % (Auto) Brown % (Auto) Lymph # Brown # Seg Neutrophils % Seg Neuts % (Manual) Lymphocytes % (Manual) Nucleated RBC % Seg Neutrophils # Seg Neutrophils # Man Lymphocytes # (Manual) Monocytes # (Manual) Eosinophils # (Manual) PT INR Heparin Anti-Xa Level ABG pH ABG pO2 ABG HCO3 ABG O2 Saturation ABG Base Excess ABG Hemoglobin Oxyhemoglobin Sodium Potassium Chloride Carbon Dioxide BUN Creatinine Glucose POC Glucose 271 H 314 H 436 H Hemoglobin A1c Calcium Phosphorus Magnesium Ferritin AST ALT Alkaline Phosphatase Total Creatine Kinase CK-MB (CK-2) CK-MB (CK-2) Rel Index Troponin T Total Protein Albumin Triglycerides LDL Cholesterol Direct HDL Cholesterol Urine WBC (Auto) Urine Creatinine 03/21/20 03/21/20 03/22/20 17:44 21:55 04:33 WBC RBC Hgb 10.0 L Hct 29.4 L MCV MCHC RDW Lymph % (Auto) Brown % (Auto) Lymph # Brown # Seg Neutrophils % Seg Neuts % (Manual) Lymphocytes % (Manual) Nucleated RBC % Seg Neutrophils # Seg Neutrophils # Man Lymphocytes # (Manual) Monocytes # (Manual) Eosinophils # (Manual) PT INR Heparin Anti-Xa Level ABG pH ABG pO2 ABG HCO3 ABG O2 Saturation ABG Base Excess ABG Hemoglobin Oxyhemoglobin Sodium Potassium Chloride Carbon Dioxide BUN Creatinine Glucose POC Glucose 362 H 329 H Hemoglobin A1c Calcium Phosphorus Magnesium Ferritin AST ALT Alkaline Phosphatase Total Creatine Kinase CK-MB (CK-2) CK-MB (CK-2) Rel Index Troponin T Total Protein Albumin Triglycerides LDL Cholesterol Direct HDL Cholesterol Urine WBC (Auto) Urine Creatinine 03/22/20 03/22/20 03/22/20 08:57 14:12 19:57 WBC RBC Hgb Hct MCV MCHC RDW Lymph % (Auto) Brown % (Auto) Lymph # Brown # Seg Neutrophils % Seg Neuts % (Manual) Lymphocytes % (Manual) Nucleated RBC % Seg Neutrophils # Seg Neutrophils # Man Lymphocytes # (Manual) Monocytes # (Manual) Eosinophils # (Manual) PT INR Heparin Anti-Xa Level ABG pH ABG pO2 ABG HCO3 ABG O2 Saturation ABG Base Excess ABG Hemoglobin Oxyhemoglobin Sodium Potassium Chloride Carbon Dioxide BUN Creatinine Glucose POC Glucose 284 H 319 H 356 H Hemoglobin A1c Calcium Phosphorus Magnesium Ferritin AST ALT Alkaline Phosphatase Total Creatine Kinase CK-MB (CK-2) CK-MB (CK-2) Rel Index Troponin T Total Protein Albumin Triglycerides LDL Cholesterol Direct HDL Cholesterol Urine WBC (Auto) Urine Creatinine 03/22/20 03/23/20 03/23/20 21:44 08:18 12:46 WBC RBC Hgb Hct MCV MCHC RDW Lymph % (Auto) Brown % (Auto) Lymph # Brown # Seg Neutrophils % Seg Neuts % (Manual) Lymphocytes % (Manual) Nucleated RBC % Seg Neutrophils # Seg Neutrophils # Man Lymphocytes # (Manual) Monocytes # (Manual) Eosinophils # (Manual) PT INR Heparin Anti-Xa Level ABG pH ABG pO2 ABG HCO3 ABG O2 Saturation ABG Base Excess ABG Hemoglobin Oxyhemoglobin Sodium Potassium Chloride Carbon Dioxide BUN Creatinine Glucose POC Glucose 336 H 215 H 262 H Hemoglobin A1c Calcium Phosphorus Magnesium Ferritin AST ALT Alkaline Phosphatase Total Creatine Kinase CK-MB (CK-2) CK-MB (CK-2) Rel Index Troponin T Total Protein Albumin Triglycerides LDL Cholesterol Direct HDL Cholesterol Urine WBC (Auto) Urine Creatinine 03/23/20 03/23/20 03/24/20 15:56 22:05 02:35 WBC RBC Hgb 9.0 L Hct 25.8 L MCV MCHC RDW Lymph % (Auto) Brown % (Auto) Lymph # Brown # Seg Neutrophils % Seg Neuts % (Manual) Lymphocytes % (Manual) Nucleated RBC % Seg Neutrophils # Seg Neutrophils # Man Lymphocytes # (Manual) Monocytes # (Manual) Eosinophils # (Manual) PT INR Heparin Anti-Xa Level ABG pH ABG pO2 ABG HCO3 ABG O2 Saturation ABG Base Excess ABG Hemoglobin Oxyhemoglobin Sodium Potassium Chloride Carbon Dioxide BUN Creatinine Glucose POC Glucose 246 H 322 H Hemoglobin A1c Calcium Phosphorus Magnesium Ferritin AST ALT Alkaline Phosphatase Total Creatine Kinase CK-MB (CK-2) CK-MB (CK-2) Rel Index Troponin T Total Protein Albumin Triglycerides LDL Cholesterol Direct HDL Cholesterol Urine WBC (Auto) Urine Creatinine 03/24/20 03/24/20 03/24/20 07:38 11:45 16:02 WBC RBC Hgb Hct MCV MCHC RDW Lymph % (Auto) Brown % (Auto) Lymph # Brown # Seg Neutrophils % Seg Neuts % (Manual) Lymphocytes % (Manual) Nucleated RBC % Seg Neutrophils # Seg Neutrophils # Man Lymphocytes # (Manual) Monocytes # (Manual) Eosinophils # (Manual) PT INR Heparin Anti-Xa Level ABG pH ABG pO2 ABG HCO3 ABG O2 Saturation ABG Base Excess ABG Hemoglobin Oxyhemoglobin Sodium Potassium Chloride Carbon Dioxide BUN Creatinine Glucose POC Glucose 289 H 257 H 150 H Hemoglobin A1c Calcium Phosphorus Magnesium Ferritin AST ALT Alkaline Phosphatase Total Creatine Kinase CK-MB (CK-2) CK-MB (CK-2) Rel Index Troponin T Total Protein Albumin Triglycerides LDL Cholesterol Direct HDL Cholesterol Urine WBC (Auto) Urine Creatinine 03/24/20 03/25/20 03/25/20 21:24 04:06 07:39 WBC RBC Hgb Hct MCV MCHC RDW Lymph % (Auto) Brown % (Auto) Lymph # Brown # Seg Neutrophils % Seg Neuts % (Manual) Lymphocytes % (Manual) Nucleated RBC % Seg Neutrophils # Seg Neutrophils # Man Lymphocytes # (Manual) Monocytes # (Manual) Eosinophils # (Manual) PT INR Heparin Anti-Xa Level 0.10 L ABG pH ABG pO2 ABG HCO3 ABG O2 Saturation ABG Base Excess ABG Hemoglobin Oxyhemoglobin Sodium Potassium Chloride Carbon Dioxide BUN Creatinine Glucose POC Glucose 228 H 332 H Hemoglobin A1c Calcium Phosphorus Magnesium Ferritin AST ALT Alkaline Phosphatase Total Creatine Kinase CK-MB (CK-2) CK-MB (CK-2) Rel Index Troponin T Total Protein Albumin Triglycerides LDL Cholesterol Direct HDL Cholesterol Urine WBC (Auto) Urine Creatinine 03/25/20 03/25/20 03/25/20 08:13 09:30 11:59 WBC 13.1 H RBC 2.82 L Hgb 8.5 L Hct 26.1 L MCV MCHC RDW Lymph % (Auto) Brown % (Auto) Lymph # Brown # Seg Neutrophils % Seg Neuts % (Manual) Lymphocytes % (Manual) Nucleated RBC % Seg Neutrophils # Seg Neutrophils # Man Lymphocytes # (Manual) Monocytes # (Manual) Eosinophils # (Manual) PT INR Heparin Anti-Xa Level ABG pH ABG pO2 ABG HCO3 ABG O2 Saturation ABG Base Excess ABG Hemoglobin Oxyhemoglobin Sodium 131 L Potassium 5.3 H Chloride Carbon Dioxide 20 L BUN 39 H Creatinine 1.4 H Glucose 313 H POC Glucose 273 H Hemoglobin A1c Calcium 8.1 L Phosphorus Magnesium Ferritin AST ALT Alkaline Phosphatase Total Creatine Kinase CK-MB (CK-2) CK-MB (CK-2) Rel Index Troponin T Total Protein Albumin Triglycerides LDL Cholesterol Direct HDL Cholesterol Urine WBC (Auto) Urine Creatinine 03/25/20 03/25/20 03/25/20 13:54 15:58 18:21 WBC RBC Hgb Hct MCV MCHC RDW Lymph % (Auto) Brown % (Auto) Lymph # Brown # Seg Neutrophils % Seg Neuts % (Manual) Lymphocytes % (Manual) Nucleated RBC % Seg Neutrophils # Seg Neutrophils # Man Lymphocytes # (Manual) Monocytes # (Manual) Eosinophils # (Manual) PT INR Heparin Anti-Xa Level ABG pH ABG pO2 ABG HCO3 ABG O2 Saturation ABG Base Excess ABG Hemoglobin Oxyhemoglobin Sodium Potassium Chloride Carbon Dioxide BUN Creatinine Glucose POC Glucose 246 H 235 H 185 H Hemoglobin A1c Calcium Phosphorus Magnesium Ferritin AST ALT Alkaline Phosphatase Total Creatine Kinase CK-MB (CK-2) CK-MB (CK-2) Rel Index Troponin T Total Protein Albumin Triglycerides LDL Cholesterol Direct HDL Cholesterol Urine WBC (Auto) Urine Creatinine 03/25/20 03/26/20 03/26/20 20:45 05:15 06:59 WBC 17.4 H 15.6 H RBC 3.05 L 3.05 L Hgb 9.1 L 9.2 L Hct 28.2 L 27.9 L MCV MCHC RDW Lymph % (Auto) 8.9 L 8.9 L Brown % (Auto) Lymph # Brown # 1.0 H Seg Neutrophils % 84.4 H 84.8 H Seg Neuts % (Manual) Lymphocytes % (Manual) Nucleated RBC % Seg Neutrophils # 14.7 H 13.2 H Seg Neutrophils # Man Lymphocytes # (Manual) Monocytes # (Manual) Eosinophils # (Manual) PT INR Heparin Anti-Xa Level ABG pH ABG pO2 ABG HCO3 ABG O2 Saturation ABG Base Excess ABG Hemoglobin Oxyhemoglobin Sodium Potassium Chloride Carbon Dioxide BUN Creatinine Glucose POC Glucose 178 H Hemoglobin A1c Calcium Phosphorus Magnesium Ferritin AST ALT Alkaline Phosphatase Total Creatine Kinase CK-MB (CK-2) CK-MB (CK-2) Rel Index Troponin T Total Protein Albumin Triglycerides LDL Cholesterol Direct HDL Cholesterol Urine WBC (Auto) Urine Creatinine 03/26/20 03/26/20 03/26/20 06:59 07:43 11:56 WBC RBC Hgb Hct MCV MCHC RDW Lymph % (Auto) Brown % (Auto) Lymph # Brown # Seg Neutrophils % Seg Neuts % (Manual) Lymphocytes % (Manual) Nucleated RBC % Seg Neutrophils # Seg Neutrophils # Man Lymphocytes # (Manual) Monocytes # (Manual) Eosinophils # (Manual) PT INR Heparin Anti-Xa Level ABG pH ABG pO2 ABG HCO3 ABG O2 Saturation ABG Base Excess ABG Hemoglobin Oxyhemoglobin Sodium 131 L Potassium 5.8 H Chloride Carbon Dioxide 16 L BUN 42 H Creatinine 1.4 H Glucose 163 H POC Glucose 170 H 198 H Hemoglobin A1c Calcium 8.0 L Phosphorus Magnesium Ferritin AST ALT Alkaline Phosphatase Total Creatine Kinase CK-MB (CK-2) CK-MB (CK-2) Rel Index Troponin T Total Protein Albumin Triglycerides LDL Cholesterol Direct HDL Cholesterol Urine WBC (Auto) Urine Creatinine 03/26/20 03/26/20 03/26/20 13:58 16:16 21:00 WBC RBC Hgb Hct MCV MCHC RDW Lymph % (Auto) Brown % (Auto) Lymph # Brown # Seg Neutrophils % Seg Neuts % (Manual) Lymphocytes % (Manual) Nucleated RBC % Seg Neutrophils # Seg Neutrophils # Man Lymphocytes # (Manual) Monocytes # (Manual) Eosinophils # (Manual) PT INR Heparin Anti-Xa Level ABG pH ABG pO2 ABG HCO3 ABG O2 Saturation ABG Base Excess ABG Hemoglobin Oxyhemoglobin Sodium 128 L Potassium 6.0 H Chloride Carbon Dioxide 15 L BUN 45 H Creatinine 1.4 H Glucose 190 H POC Glucose 184 H 192 H Hemoglobin A1c Calcium 8.2 L Phosphorus Magnesium Ferritin AST ALT Alkaline Phosphatase Total Creatine Kinase CK-MB (CK-2) CK-MB (CK-2) Rel Index Troponin T Total Protein Albumin Triglycerides LDL Cholesterol Direct HDL Cholesterol Urine WBC (Auto) Urine Creatinine 03/27/20 03/27/20 03/27/20 08:32 11:51 14:39 WBC 22.9 H RBC 2.68 L Hgb 7.9 L Hct 24.7 L MCV MCHC RDW Lymph % (Auto) Brown % (Auto) Lymph # Brown # Seg Neutrophils % Seg Neuts % (Manual) Lymphocytes % (Manual) Nucleated RBC % Seg Neutrophils # Seg Neutrophils # Man Lymphocytes # (Manual) Monocytes # (Manual) Eosinophils # (Manual) PT INR Heparin Anti-Xa Level ABG pH ABG pO2 ABG HCO3 ABG O2 Saturation ABG Base Excess ABG Hemoglobin Oxyhemoglobin Sodium Potassium Chloride Carbon Dioxide BUN Creatinine Glucose POC Glucose 233 H 252 H Hemoglobin A1c Calcium Phosphorus Magnesium Ferritin AST ALT Alkaline Phosphatase Total Creatine Kinase CK-MB (CK-2) CK-MB (CK-2) Rel Index Troponin T Total Protein Albumin Triglycerides LDL Cholesterol Direct HDL Cholesterol Urine WBC (Auto) Urine Creatinine 03/27/20 03/27/20 03/27/20 14:39 15:19 21:35 WBC RBC Hgb Hct MCV MCHC RDW Lymph % (Auto) Brown % (Auto) Lymph # Brown # Seg Neutrophils % Seg Neuts % (Manual) Lymphocytes % (Manual) Nucleated RBC % Seg Neutrophils # Seg Neutrophils # Man Lymphocytes # (Manual) Monocytes # (Manual) Eosinophils # (Manual) PT INR Heparin Anti-Xa Level ABG pH ABG pO2 ABG HCO3 ABG O2 Saturation ABG Base Excess ABG Hemoglobin Oxyhemoglobin Sodium 133 L Potassium 5.5 H Chloride Carbon Dioxide 16 L BUN 46 H Creatinine 1.4 H Glucose 225 H POC Glucose 239 H 202 H Hemoglobin A1c Calcium 8.2 L Phosphorus Magnesium Ferritin AST ALT Alkaline Phosphatase Total Creatine Kinase CK-MB (CK-2) CK-MB (CK-2) Rel Index Troponin T Total Protein Albumin Triglycerides LDL Cholesterol Direct HDL Cholesterol Urine WBC (Auto) Urine Creatinine 03/28/20 03/28/20 03/28/20 07:39 07:39 08:36 WBC 22.4 H RBC 2.71 L Hgb 7.9 L Hct 24.5 L MCV MCHC RDW Lymph % (Auto) Brown % (Auto) Lymph # Brown # Seg Neutrophils % Seg Neuts % (Manual) 88.0 H Lymphocytes % (Manual) 5.0 L Nucleated RBC % Seg Neutrophils # Seg Neutrophils # Man 19.7 H Lymphocytes # (Manual) 1.1 L Monocytes # (Manual) 1.6 H Eosinophils # (Manual) PT INR Heparin Anti-Xa Level ABG pH ABG pO2 ABG HCO3 ABG O2 Saturation ABG Base Excess ABG Hemoglobin Oxyhemoglobin Sodium 134 L Potassium Chloride Carbon Dioxide 19 L BUN 47 H Creatinine Glucose 240 H POC Glucose 253 H Hemoglobin A1c Calcium 7.8 L Phosphorus Magnesium Ferritin AST ALT Alkaline Phosphatase Total Creatine Kinase CK-MB (CK-2) CK-MB (CK-2) Rel Index Troponin T Total Protein Albumin Triglycerides LDL Cholesterol Direct HDL Cholesterol Urine WBC (Auto) Urine Creatinine 03/28/20 03/28/20 03/28/20 11:54 17:08 21:17 WBC RBC Hgb Hct MCV MCHC RDW Lymph % (Auto) Brown % (Auto) Lymph # Brown # Seg Neutrophils % Seg Neuts % (Manual) Lymphocytes % (Manual) Nucleated RBC % Seg Neutrophils # Seg Neutrophils # Man Lymphocytes # (Manual) Monocytes # (Manual) Eosinophils # (Manual) PT INR Heparin Anti-Xa Level ABG pH ABG pO2 ABG HCO3 ABG O2 Saturation ABG Base Excess ABG Hemoglobin Oxyhemoglobin Sodium Potassium Chloride Carbon Dioxide BUN Creatinine Glucose POC Glucose 306 H 178 H 186 H Hemoglobin A1c Calcium Phosphorus Magnesium Ferritin AST ALT Alkaline Phosphatase Total Creatine Kinase CK-MB (CK-2) CK-MB (CK-2) Rel Index Troponin T Total Protein Albumin Triglycerides LDL Cholesterol Direct HDL Cholesterol Urine WBC (Auto) Urine Creatinine 03/29/20 03/29/20 03/29/20 08:32 12:04 14:19 WBC 21.5 H RBC 2.82 L Hgb 8.4 L Hct 26.1 L MCV MCHC RDW Lymph % (Auto) Brown % (Auto) Lymph # Brown # Seg Neutrophils % Seg Neuts % (Manual) 85.0 H Lymphocytes % (Manual) 11.0 L Nucleated RBC % 3.0 H Seg Neutrophils # Seg Neutrophils # Man 18.3 H Lymphocytes # (Manual) Monocytes # (Manual) Eosinophils # (Manual) 0.6 H PT INR Heparin Anti-Xa Level ABG pH ABG pO2 ABG HCO3 ABG O2 Saturation ABG Base Excess ABG Hemoglobin Oxyhemoglobin Sodium Potassium Chloride Carbon Dioxide BUN Creatinine Glucose POC Glucose 110 H 263 H Hemoglobin A1c Calcium Phosphorus Magnesium Ferritin AST ALT Alkaline Phosphatase Total Creatine Kinase CK-MB (CK-2) CK-MB (CK-2) Rel Index Troponin T Total Protein Albumin Triglycerides LDL Cholesterol Direct HDL Cholesterol Urine WBC (Auto) Urine Creatinine 03/29/20 03/29/20 03/30/20 16:17 22:57 11:00 WBC RBC Hgb Hct MCV MCHC RDW Lymph % (Auto) Brown % (Auto) Lymph # Brown # Seg Neutrophils % Seg Neuts % (Manual) Lymphocytes % (Manual) Nucleated RBC % Seg Neutrophils # Seg Neutrophils # Man Lymphocytes # (Manual) Monocytes # (Manual) Eosinophils # (Manual) PT INR Heparin Anti-Xa Level ABG pH ABG pO2 ABG HCO3 ABG O2 Saturation ABG Base Excess ABG Hemoglobin Oxyhemoglobin Sodium Potassium Chloride Carbon Dioxide BUN Creatinine Glucose POC Glucose 109 H 194 H 129 H Hemoglobin A1c Calcium Phosphorus Magnesium Ferritin AST ALT Alkaline Phosphatase Total Creatine Kinase CK-MB (CK-2) CK-MB (CK-2) Rel Index Troponin T Total Protein Albumin Triglycerides LDL Cholesterol Direct HDL Cholesterol Urine WBC (Auto) Urine Creatinine 03/30/20 03/30/20 03/31/20 15:16 21:54 04:27 WBC 15.8 H RBC 2.62 L Hgb 7.7 L Hct 24.1 L MCV MCHC RDW Lymph % (Auto) 9.4 L Brown % (Auto) Lymph # Brown # Seg Neutrophils % 84.4 H Seg Neuts % (Manual) Lymphocytes % (Manual) Nucleated RBC % Seg Neutrophils # 13.3 H Seg Neutrophils # Man Lymphocytes # (Manual) Monocytes # (Manual) Eosinophils # (Manual) PT INR Heparin Anti-Xa Level ABG pH ABG pO2 ABG HCO3 ABG O2 Saturation ABG Base Excess ABG Hemoglobin Oxyhemoglobin Sodium Potassium Chloride Carbon Dioxide BUN Creatinine Glucose POC Glucose 115 H 166 H Hemoglobin A1c Calcium Phosphorus Magnesium Ferritin AST ALT Alkaline Phosphatase Total Creatine Kinase CK-MB (CK-2) CK-MB (CK-2) Rel Index Troponin T Total Protein Albumin Triglycerides LDL Cholesterol Direct HDL Cholesterol Urine WBC (Auto) Urine Creatinine 03/31/20 03/31/20 03/31/20 04:27 07:37 11:46 WBC RBC Hgb Hct MCV MCHC RDW Lymph % (Auto) Brown % (Auto) Lymph # Brown # Seg Neutrophils % Seg Neuts % (Manual) Lymphocytes % (Manual) Nucleated RBC % Seg Neutrophils # Seg Neutrophils # Man Lymphocytes # (Manual) Monocytes # (Manual) Eosinophils # (Manual) PT INR Heparin Anti-Xa Level ABG pH ABG pO2 ABG HCO3 ABG O2 Saturation ABG Base Excess ABG Hemoglobin Oxyhemoglobin Sodium 133 L Potassium Chloride 96.6 L Carbon Dioxide 18 L BUN 75 H Creatinine 2.5 H D Glucose 129 H POC Glucose 156 H 224 H Hemoglobin A1c Calcium 8.0 L Phosphorus Magnesium Ferritin AST ALT Alkaline Phosphatase Total Creatine Kinase CK-MB (CK-2) CK-MB (CK-2) Rel Index Troponin T Total Protein Albumin Triglycerides LDL Cholesterol Direct HDL Cholesterol Urine WBC (Auto) Urine Creatinine 04/01/20 04/01/20 04/01/20 08:34 10:52 10:52 WBC 12.9 H RBC 2.75 L Hgb 8.2 L Hct 24.8 L MCV MCHC RDW Lymph % (Auto) 10.6 L Brown % (Auto) Lymph # Brown # Seg Neutrophils % 83.7 H Seg Neuts % (Manual) Lymphocytes % (Manual) Nucleated RBC % Seg Neutrophils # 10.8 H Seg Neutrophils # Man Lymphocytes # (Manual) Monocytes # (Manual) Eosinophils # (Manual) PT INR Heparin Anti-Xa Level ABG pH ABG pO2 ABG HCO3 ABG O2 Saturation ABG Base Excess ABG Hemoglobin Oxyhemoglobin Sodium 131 L Potassium Chloride 96.1 L Carbon Dioxide 17 L BUN 77 H Creatinine 2.3 H Glucose 205 H POC Glucose 110 H Hemoglobin A1c Calcium 7.9 L Phosphorus Magnesium Ferritin AST ALT Alkaline Phosphatase Total Creatine Kinase CK-MB (CK-2) CK-MB (CK-2) Rel Index Troponin T Total Protein Albumin Triglycerides LDL Cholesterol Direct HDL Cholesterol Urine WBC (Auto) Urine Creatinine 04/01/20 04/01/20 04/01/20 12:15 17:22 20:47 WBC RBC Hgb Hct MCV MCHC RDW Lymph % (Auto) Brown % (Auto) Lymph # Brown # Seg Neutrophils % Seg Neuts % (Manual) Lymphocytes % (Manual) Nucleated RBC % Seg Neutrophils # Seg Neutrophils # Man Lymphocytes # (Manual) Monocytes # (Manual) Eosinophils # (Manual) PT INR Heparin Anti-Xa Level ABG pH ABG pO2 ABG HCO3 ABG O2 Saturation ABG Base Excess ABG Hemoglobin Oxyhemoglobin Sodium Potassium Chloride Carbon Dioxide BUN Creatinine Glucose POC Glucose 201 H 219 H 156 H Hemoglobin A1c Calcium Phosphorus Magnesium Ferritin AST ALT Alkaline Phosphatase Total Creatine Kinase CK-MB (CK-2) CK-MB (CK-2) Rel Index Troponin T Total Protein Albumin Triglycerides LDL Cholesterol Direct HDL Cholesterol Urine WBC (Auto) Urine Creatinine 04/02/20 04/02/20 04/02/20 05:44 05:44 11:32 WBC 15.8 H RBC 2.81 L Hgb 8.2 L Hct 25.7 L MCV MCHC RDW Lymph % (Auto) Brown % (Auto) Lymph # Brown # 0.9 H Seg Neutrophils % 77.7 H Seg Neuts % (Manual) Lymphocytes % (Manual) Nucleated RBC % Seg Neutrophils # 12.3 H Seg Neutrophils # Man Lymphocytes # (Manual) Monocytes # (Manual) Eosinophils # (Manual) PT INR Heparin Anti-Xa Level ABG pH ABG pO2 ABG HCO3 ABG O2 Saturation ABG Base Excess ABG Hemoglobin Oxyhemoglobin Sodium 134 L Potassium Chloride Carbon Dioxide 19 L BUN 76 H Creatinine 2.0 H Glucose POC Glucose 116 H Hemoglobin A1c Calcium 8.0 L Phosphorus Magnesium Ferritin AST 291 H ALT 169 H Alkaline Phosphatase 256 H Total Creatine Kinase CK-MB (CK-2) CK-MB (CK-2) Rel Index Troponin T Total Protein 6.1 L Albumin 2.2 L Triglycerides LDL Cholesterol Direct HDL Cholesterol Urine WBC (Auto) Urine Creatinine 04/02/20 04/02/20 04/03/20 16:56 22:03 08:13 WBC RBC Hgb Hct MCV MCHC RDW Lymph % (Auto) Brown % (Auto) Lymph # Brown # Seg Neutrophils % Seg Neuts % (Manual) Lymphocytes % (Manual) Nucleated RBC % Seg Neutrophils # Seg Neutrophils # Man Lymphocytes # (Manual) Monocytes # (Manual) Eosinophils # (Manual) PT INR Heparin Anti-Xa Level ABG pH ABG pO2 ABG HCO3 ABG O2 Saturation ABG Base Excess ABG Hemoglobin Oxyhemoglobin Sodium Potassium Chloride Carbon Dioxide BUN Creatinine Glucose POC Glucose 141 H 152 H 126 H Hemoglobin A1c Calcium Phosphorus Magnesium Ferritin AST ALT Alkaline Phosphatase Total Creatine Kinase CK-MB (CK-2) CK-MB (CK-2) Rel Index Troponin T Total Protein Albumin Triglycerides LDL Cholesterol Direct HDL Cholesterol Urine WBC (Auto) Urine Creatinine 04/03/20 04/03/20 04/03/20 12:11 16:26 21:33 WBC RBC Hgb Hct MCV MCHC RDW Lymph % (Auto) Brown % (Auto) Lymph # Brown # Seg Neutrophils % Seg Neuts % (Manual) Lymphocytes % (Manual) Nucleated RBC % Seg Neutrophils # Seg Neutrophils # Man Lymphocytes # (Manual) Monocytes # (Manual) Eosinophils # (Manual) PT INR Heparin Anti-Xa Level ABG pH ABG pO2 ABG HCO3 ABG O2 Saturation ABG Base Excess ABG Hemoglobin Oxyhemoglobin Sodium Potassium Chloride Carbon Dioxide BUN Creatinine Glucose POC Glucose 139 H 164 H 147 H Hemoglobin A1c Calcium Phosphorus Magnesium Ferritin AST ALT Alkaline Phosphatase Total Creatine Kinase CK-MB (CK-2) CK-MB (CK-2) Rel Index Troponin T Total Protein Albumin Triglycerides LDL Cholesterol Direct HDL Cholesterol Urine WBC (Auto) Urine Creatinine 04/04/20 04/04/20 04/04/20 04:29 04:29 11:29 WBC 12.3 H RBC 2.88 L Hgb 8.4 L Hct 26.1 L MCV MCHC RDW Lymph % (Auto) Brown % (Auto) Lymph # Brown # Seg Neutrophils % 75.4 H Seg Neuts % (Manual) Lymphocytes % (Manual) Nucleated RBC % Seg Neutrophils # 9.3 H Seg Neutrophils # Man Lymphocytes # (Manual) Monocytes # (Manual) Eosinophils # (Manual) PT INR Heparin Anti-Xa Level ABG pH ABG pO2 ABG HCO3 ABG O2 Saturation ABG Base Excess ABG Hemoglobin Oxyhemoglobin Sodium 136 L Potassium Chloride Carbon Dioxide 19 L BUN 71 H Creatinine 1.7 H Glucose POC Glucose 108 H Hemoglobin A1c Calcium 8.0 L Phosphorus Magnesium Ferritin AST 673 H ALT 252 H Alkaline Phosphatase 311 H Total Creatine Kinase CK-MB (CK-2) CK-MB (CK-2) Rel Index Troponin T Total Protein Albumin 2.2 L Triglycerides LDL Cholesterol Direct HDL Cholesterol Urine WBC (Auto) Urine Creatinine 04/04/20 04/04/20 04/05/20 16:34 20:58 03:54 WBC 13.7 H RBC 3.03 L Hgb 8.7 L Hct 27.9 L MCV MCHC 31 L RDW 15.5 H Lymph % (Auto) Brown % (Auto) Lymph # Brown # Seg Neutrophils % 78.9 H Seg Neuts % (Manual) Lymphocytes % (Manual) Nucleated RBC % Seg Neutrophils # 10.8 H Seg Neutrophils # Man Lymphocytes # (Manual) Monocytes # (Manual) Eosinophils # (Manual) PT INR Heparin Anti-Xa Level ABG pH ABG pO2 ABG HCO3 ABG O2 Saturation ABG Base Excess ABG Hemoglobin Oxyhemoglobin Sodium Potassium Chloride Carbon Dioxide BUN Creatinine Glucose POC Glucose 151 H 131 H Hemoglobin A1c Calcium Phosphorus Magnesium Ferritin AST ALT Alkaline Phosphatase Total Creatine Kinase CK-MB (CK-2) CK-MB (CK-2) Rel Index Troponin T Total Protein Albumin Triglycerides LDL Cholesterol Direct HDL Cholesterol Urine WBC (Auto) Urine Creatinine 04/05/20 04/05/20 04/05/20 03:54 15:58 15:58 WBC RBC Hgb Hct MCV MCHC RDW Lymph % (Auto) Brown % (Auto) Lymph # Brown # Seg Neutrophils % Seg Neuts % (Manual) Lymphocytes % (Manual) Nucleated RBC % Seg Neutrophils # Seg Neutrophils # Man Lymphocytes # (Manual) Monocytes # (Manual) Eosinophils # (Manual) PT INR Heparin Anti-Xa Level ABG pH ABG pO2 67.1 L ABG HCO3 26.1 H ABG O2 Saturation 93.4 L ABG Base Excess ABG Hemoglobin 9.0 L Oxyhemoglobin 91.6 L Sodium 136 L Potassium 5.5 H Chloride Carbon Dioxide 21 L BUN 79 H Creatinine 1.9 H Glucose 63 L POC Glucose 129 H Hemoglobin A1c Calcium 8.2 L Phosphorus Magnesium Ferritin AST 696 H ALT 262 H Alkaline Phosphatase 325 H Total Creatine Kinase CK-MB (CK-2) CK-MB (CK-2) Rel Index Troponin T Total Protein Albumin 2.3 L Triglycerides LDL Cholesterol Direct HDL Cholesterol Urine WBC (Auto) Urine Creatinine 04/05/20 04/06/20 04/06/20 22:33 07:14 07:14 WBC RBC Hgb Hct MCV MCHC RDW Lymph % (Auto) Brown % (Auto) Lymph # Brown # Seg Neutrophils % Seg Neuts % (Manual) Lymphocytes % (Manual) Nucleated RBC % Seg Neutrophils # Seg Neutrophils # Man Lymphocytes # (Manual) Monocytes # (Manual) Eosinophils # (Manual) PT INR Heparin Anti-Xa Level ABG pH ABG pO2 ABG HCO3 ABG O2 Saturation ABG Base Excess ABG Hemoglobin Oxyhemoglobin Sodium Potassium 5.6 H Chloride Carbon Dioxide BUN 83 H Creatinine 1.9 H Glucose 202 H POC Glucose 253 H Hemoglobin A1c Calcium Phosphorus Magnesium Ferritin 444.2 H AST 469 H ALT 237 H Alkaline Phosphatase 332 H Total Creatine Kinase CK-MB (CK-2) CK-MB (CK-2) Rel Index Troponin T Total Protein Albumin 2.2 L Triglycerides LDL Cholesterol Direct HDL Cholesterol Urine WBC (Auto) Urine Creatinine 04/06/20 04/06/20 04/06/20 08:23 12:00 13:56 WBC RBC Hgb Hct MCV MCHC RDW Lymph % (Auto) Brown % (Auto) Lymph # Brown # Seg Neutrophils % Seg Neuts % (Manual) Lymphocytes % (Manual) Nucleated RBC % Seg Neutrophils # Seg Neutrophils # Man Lymphocytes # (Manual) Monocytes # (Manual) Eosinophils # (Manual) PT 27.0 H INR 2.44 H Heparin Anti-Xa Level ABG pH ABG pO2 ABG HCO3 ABG O2 Saturation ABG Base Excess ABG Hemoglobin Oxyhemoglobin Sodium Potassium Chloride Carbon Dioxide BUN Creatinine Glucose POC Glucose 226 H 176 H Hemoglobin A1c Calcium Phosphorus Magnesium Ferritin AST ALT Alkaline Phosphatase Total Creatine Kinase CK-MB (CK-2) CK-MB (CK-2) Rel Index Troponin T Total Protein Albumin Triglycerides LDL Cholesterol Direct HDL Cholesterol Urine WBC (Auto) Urine Creatinine 04/06/20 04/07/20 04/07/20 20:45 04:58 04:58 WBC RBC Hgb Hct MCV MCHC RDW Lymph % (Auto) Brown % (Auto) Lymph # Brown # Seg Neutrophils % Seg Neuts % (Manual) Lymphocytes % (Manual) Nucleated RBC % Seg Neutrophils # Seg Neutrophils # Man Lymphocytes # (Manual) Monocytes # (Manual) Eosinophils # (Manual) PT 30.9 H INR 2.89 H Heparin Anti-Xa Level ABG pH ABG pO2 ABG HCO3 ABG O2 Saturation ABG Base Excess ABG Hemoglobin Oxyhemoglobin Sodium Potassium 6.0 H Chloride Carbon Dioxide BUN 85 H Creatinine 2.1 H Glucose 177 H POC Glucose 139 H Hemoglobin A1c Calcium Phosphorus Magnesium Ferritin AST 351 H ALT 215 H Alkaline Phosphatase 332 H Total Creatine Kinase CK-MB (CK-2) CK-MB (CK-2) Rel Index Troponin T Total Protein Albumin 2.7 L Triglycerides LDL Cholesterol Direct HDL Cholesterol Urine WBC (Auto) Urine Creatinine 04/07/20 04/07/20 04/08/20 07:53 11:51 04:44 WBC 11.7 H RBC 3.07 L Hgb 9.1 L Hct 28.9 L MCV MCHC RDW 16.8 H Lymph % (Auto) 12.4 L Brown % (Auto) Lymph # Brown # Seg Neutrophils % 83.3 H Seg Neuts % (Manual) Lymphocytes % (Manual) Nucleated RBC % Seg Neutrophils # 9.7 H Seg Neutrophils # Man Lymphocytes # (Manual) Monocytes # (Manual) Eosinophils # (Manual) PT INR Heparin Anti-Xa Level ABG pH ABG pO2 ABG HCO3 ABG O2 Saturation ABG Base Excess ABG Hemoglobin Oxyhemoglobin Sodium Potassium Chloride Carbon Dioxide BUN Creatinine Glucose POC Glucose 167 H 120 H Hemoglobin A1c Calcium Phosphorus Magnesium Ferritin AST ALT Alkaline Phosphatase Total Creatine Kinase CK-MB (CK-2) CK-MB (CK-2) Rel Index Troponin T Total Protein Albumin Triglycerides LDL Cholesterol Direct HDL Cholesterol Urine WBC (Auto) Urine Creatinine 04/08/20 04/08/20 04/08/20 04:44 07:19 08:43 WBC RBC Hgb Hct MCV MCHC RDW Lymph % (Auto) Brown % (Auto) Lymph # Brown # Seg Neutrophils % Seg Neuts % (Manual) Lymphocytes % (Manual) Nucleated RBC % Seg Neutrophils # Seg Neutrophils # Man Lymphocytes # (Manual) Monocytes # (Manual) Eosinophils # (Manual) PT INR Heparin Anti-Xa Level ABG pH ABG pO2 ABG HCO3 ABG O2 Saturation ABG Base Excess ABG Hemoglobin Oxyhemoglobin Sodium Potassium 6.3 H* Chloride Carbon Dioxide 21 L BUN 89 H Creatinine 1.9 H Glucose 63 L POC Glucose 65 L 168 H Hemoglobin A1c Calcium Phosphorus Magnesium Ferritin AST 370 H ALT 211 H Alkaline Phosphatase 320 H Total Creatine Kinase CK-MB (CK-2) CK-MB (CK-2) Rel Index Troponin T Total Protein Albumin 2.6 L Triglycerides LDL Cholesterol Direct HDL Cholesterol Urine WBC (Auto) Urine Creatinine 04/08/20 04/08/20 04/08/20 12:53 16:38 21:47 WBC RBC Hgb Hct MCV MCHC RDW Lymph % (Auto) Brown % (Auto) Lymph # Brown # Seg Neutrophils % Seg Neuts % (Manual) Lymphocytes % (Manual) Nucleated RBC % Seg Neutrophils # Seg Neutrophils # Man Lymphocytes # (Manual) Monocytes # (Manual) Eosinophils # (Manual) PT INR Heparin Anti-Xa Level ABG pH ABG pO2 ABG HCO3 ABG O2 Saturation ABG Base Excess ABG Hemoglobin Oxyhemoglobin Sodium Potassium 6.0 H Chloride Carbon Dioxide BUN 90 H Creatinine 2.1 H Glucose 124 H POC Glucose 129 H 118 H Hemoglobin A1c Calcium Phosphorus Magnesium Ferritin AST ALT Alkaline Phosphatase Total Creatine Kinase CK-MB (CK-2) CK-MB (CK-2) Rel Index Troponin T Total Protein Albumin Triglycerides LDL Cholesterol Direct HDL Cholesterol Urine WBC (Auto) Urine Creatinine 04/09/20 04/09/20 04/09/20 03:45 08:04 19:10 WBC RBC Hgb Hct MCV MCHC RDW Lymph % (Auto) Brown % (Auto) Lymph # Brown # Seg Neutrophils % Seg Neuts % (Manual) Lymphocytes % (Manual) Nucleated RBC % Seg Neutrophils # Seg Neutrophils # Man Lymphocytes # (Manual) Monocytes # (Manual) Eosinophils # (Manual) PT INR Heparin Anti-Xa Level ABG pH 7.304 L ABG pO2 72.2 L ABG HCO3 ABG O2 Saturation 93.7 L ABG Base Excess -3.3 L ABG Hemoglobin 8.9 L Oxyhemoglobin 91.8 L Sodium Potassium 6.6 H* 6.5 H* Chloride Carbon Dioxide 21 L BUN 99 H 100 H Creatinine 2.2 H 2.3 H Glucose POC Glucose Hemoglobin A1c Calcium 8.2 L Phosphorus Magnesium Ferritin AST ALT Alkaline Phosphatase Total Creatine Kinase CK-MB (CK-2) CK-MB (CK-2) Rel Index Troponin T Total Protein Albumin Triglycerides LDL Cholesterol Direct HDL Cholesterol Urine WBC (Auto) Urine Creatinine 04/10/20 04/10/20 04/10/20 05:48 05:48 08:53 WBC RBC 3.01 L Hgb 8.9 L Hct 28.4 L MCV 95 H MCHC 31 L RDW 17.6 H Lymph % (Auto) 11.4 L Brown % (Auto) Lymph # 1.1 L Brown # Seg Neutrophils % 81.1 H Seg Neuts % (Manual) Lymphocytes % (Manual) Nucleated RBC % Seg Neutrophils # 8.1 H Seg Neutrophils # Man Lymphocytes # (Manual) Monocytes # (Manual) Eosinophils # (Manual) PT INR Heparin Anti-Xa Level ABG pH ABG pO2 ABG HCO3 ABG O2 Saturation ABG Base Excess ABG Hemoglobin Oxyhemoglobin Sodium Potassium 5.2 H Chloride Carbon Dioxide BUN 104 H Creatinine 2.2 H Glucose 129 H POC Glucose 110 H Hemoglobin A1c Calcium Phosphorus Magnesium 2.80 H Ferritin AST 502 H ALT 249 H Alkaline Phosphatase 323 H Total Creatine Kinase CK-MB (CK-2) CK-MB (CK-2) Rel Index Troponin T Total Protein Albumin 2.5 L Triglycerides LDL Cholesterol Direct HDL Cholesterol Urine WBC (Auto) Urine Creatinine 04/10/20 04/10/20 04/10/20 11:42 16:05 21:35 WBC RBC Hgb Hct MCV MCHC RDW Lymph % (Auto) Brown % (Auto) Lymph # Brown # Seg Neutrophils % Seg Neuts % (Manual) Lymphocytes % (Manual) Nucleated RBC % Seg Neutrophils # Seg Neutrophils # Man Lymphocytes # (Manual) Monocytes # (Manual) Eosinophils # (Manual) PT INR Heparin Anti-Xa Level ABG pH ABG pO2 ABG HCO3 ABG O2 Saturation ABG Base Excess ABG Hemoglobin Oxyhemoglobin Sodium Potassium Chloride Carbon Dioxide BUN Creatinine Glucose POC Glucose 135 H 137 H 151 H Hemoglobin A1c Calcium Phosphorus Magnesium Ferritin AST ALT Alkaline Phosphatase Total Creatine Kinase CK-MB (CK-2) CK-MB (CK-2) Rel Index Troponin T Total Protein Albumin Triglycerides LDL Cholesterol Direct HDL Cholesterol Urine WBC (Auto) Urine Creatinine 04/11/20 04/11/20 04/11/20 06:26 06:26 06:26 WBC RBC 2.89 L Hgb 8.6 L Hct 27.4 L MCV 95 H MCHC 31 L RDW 17.5 H Lymph % (Auto) 9.9 L Brown % (Auto) Lymph # 1.0 L Brown # Seg Neutrophils % 85.7 H Seg Neuts % (Manual) Lymphocytes % (Manual) Nucleated RBC % Seg Neutrophils # 8.8 H Seg Neutrophils # Man Lymphocytes # (Manual) Monocytes # (Manual) Eosinophils # (Manual) PT 24.0 H INR 2.10 H Heparin Anti-Xa Level ABG pH ABG pO2 ABG HCO3 ABG O2 Saturation ABG Base Excess ABG Hemoglobin Oxyhemoglobin Sodium 146 H Potassium 5.3 H Chloride 108.2 H Carbon Dioxide BUN 109 H Creatinine 2.1 H Glucose 160 H POC Glucose Hemoglobin A1c Calcium Phosphorus Magnesium Ferritin AST 298 H ALT 207 H Alkaline Phosphatase 274 H Total Creatine Kinase CK-MB (CK-2) CK-MB (CK-2) Rel Index Troponin T Total Protein Albumin 2.5 L Triglycerides LDL Cholesterol Direct HDL Cholesterol Urine WBC (Auto) Urine Creatinine 04/11/20 04/11/20 04/11/20 07:57 11:33 16:07 WBC RBC Hgb Hct MCV MCHC RDW Lymph % (Auto) Brown % (Auto) Lymph # Brown # Seg Neutrophils % Seg Neuts % (Manual) Lymphocytes % (Manual) Nucleated RBC % Seg Neutrophils # Seg Neutrophils # Man Lymphocytes # (Manual) Monocytes # (Manual) Eosinophils # (Manual) PT INR Heparin Anti-Xa Level ABG pH ABG pO2 ABG HCO3 ABG O2 Saturation ABG Base Excess ABG Hemoglobin Oxyhemoglobin Sodium Potassium Chloride Carbon Dioxide BUN Creatinine Glucose POC Glucose 170 H 167 H 140 H Hemoglobin A1c Calcium Phosphorus Magnesium Ferritin AST ALT Alkaline Phosphatase Total Creatine Kinase CK-MB (CK-2) CK-MB (CK-2) Rel Index Troponin T Total Protein Albumin Triglycerides LDL Cholesterol Direct HDL Cholesterol Urine WBC (Auto) Urine Creatinine 04/11/20 04/11/20 04/11/20 16:30 16:30 16:50 WBC RBC Hgb Hct MCV MCHC RDW Lymph % (Auto) Brown % (Auto) Lymph # Brown # Seg Neutrophils % Seg Neuts % (Manual) Lymphocytes % (Manual) Nucleated RBC % Seg Neutrophils # Seg Neutrophils # Man Lymphocytes # (Manual) Monocytes # (Manual) Eosinophils # (Manual) PT INR Heparin Anti-Xa Level ABG pH 7.325 L ABG pO2 304.4 H ABG HCO3 ABG O2 Saturation 99.5 H ABG Base Excess -4.4 L ABG Hemoglobin 10.9 L Oxyhemoglobin Sodium Potassium Chloride Carbon Dioxide BUN Creatinine Glucose POC Glucose Hemoglobin A1c Calcium Phosphorus Magnesium Ferritin AST ALT Alkaline Phosphatase Total Creatine Kinase CK-MB (CK-2) CK-MB (CK-2) Rel Index Troponin T Total Protein Albumin Triglycerides LDL Cholesterol Direct HDL Cholesterol Urine WBC (Auto) 16.0 H Urine Creatinine 60.0 H 04/11/20 04/11/20 04/11/20 18:17 18:17 18:57 WBC RBC 2.71 L Hgb 7.9 L Hct 26.1 L MCV 96 H MCHC 30 L RDW 18.3 H Lymph % (Auto) Brown % (Auto) Lymph # Brown # Seg Neutrophils % Seg Neuts % (Manual) 89.0 H Lymphocytes % (Manual) 7.0 L Nucleated RBC % Seg Neutrophils # Seg Neutrophils # Man 8.8 H Lymphocytes # (Manual) 0.7 L Monocytes # (Manual) Eosinophils # (Manual) PT INR Heparin Anti-Xa Level ABG pH ABG pO2 ABG HCO3 ABG O2 Saturation ABG Base Excess ABG Hemoglobin Oxyhemoglobin Sodium 146 H Potassium 5.8 H Chloride 107.5 H Carbon Dioxide 21 L BUN 111 H Creatinine 2.2 H Glucose 176 H POC Glucose 199 H Hemoglobin A1c Calcium Phosphorus 7.40 H Magnesium 2.90 H Ferritin AST 230 H ALT 163 H Alkaline Phosphatase 236 H Total Creatine Kinase 351 H CK-MB (CK-2) CK-MB (CK-2) Rel Index Troponin T 3.950 H* Total Protein 5.7 L Albumin 2.1 L Triglycerides LDL Cholesterol Direct HDL Cholesterol 19 L Urine WBC (Auto) Urine Creatinine 04/11/20 04/12/20 04/12/20 21:21 01:41 04:45 WBC RBC Hgb Hct MCV MCHC RDW Lymph % (Auto) Brown % (Auto) Lymph # Brown # Seg Neutrophils % Seg Neuts % (Manual) Lymphocytes % (Manual) Nucleated RBC % Seg Neutrophils # Seg Neutrophils # Man Lymphocytes # (Manual) Monocytes # (Manual) Eosinophils # (Manual) PT INR Heparin Anti-Xa Level ABG pH 7.451 H ABG pO2 ABG HCO3 ABG O2 Saturation ABG Base Excess ABG Hemoglobin 6.2 L Oxyhemoglobin Sodium 147 H Potassium 6.0 H Chloride 111.8 H Carbon Dioxide 21 L BUN 117 H Creatinine 2.6 H Glucose 201 H POC Glucose 248 H Hemoglobin A1c Calcium 8.0 L Phosphorus Magnesium Ferritin AST ALT Alkaline Phosphatase Total Creatine Kinase CK-MB (CK-2) CK-MB (CK-2) Rel Index Troponin T Total Protein Albumin Triglycerides LDL Cholesterol Direct HDL Cholesterol Urine WBC (Auto) Urine Creatinine 04/12/20 04/12/20 04/12/20 07:22 07:22 07:22 WBC 12.1 H RBC 2.96 L Hgb 8.7 L Hct 28.1 L MCV 95 H MCHC 31 L RDW 17.7 H Lymph % (Auto) 7.1 L Brown % (Auto) Lymph # 0.9 L Brown # Seg Neutrophils % 85.8 H Seg Neuts % (Manual) Lymphocytes % (Manual) Nucleated RBC % Seg Neutrophils # 10.4 H Seg Neutrophils # Man Lymphocytes # (Manual) Monocytes # (Manual) Eosinophils # (Manual) PT 22.9 H INR 1.99 H Heparin Anti-Xa Level ABG pH ABG pO2 ABG HCO3 ABG O2 Saturation ABG Base Excess ABG Hemoglobin Oxyhemoglobin Sodium 147 H Potassium 5.2 H Chloride 109.8 H Carbon Dioxide 20 L BUN 120 H Creatinine 2.8 H Glucose 158 H POC Glucose Hemoglobin A1c Calcium Phosphorus Magnesium 3.00 H Ferritin AST 195 H ALT 162 H Alkaline Phosphatase 244 H Total Creatine Kinase CK-MB (CK-2) CK-MB (CK-2) Rel Index Troponin T Total Protein 5.9 L Albumin 2.4 L Triglycerides LDL Cholesterol Direct HDL Cholesterol Urine WBC (Auto) Urine Creatinine 04/12/20 04/12/20 04/12/20 11:54 16:30 21:05 WBC RBC Hgb Hct MCV MCHC RDW Lymph % (Auto) Brown % (Auto) Lymph # Brown # Seg Neutrophils % Seg Neuts % (Manual) Lymphocytes % (Manual) Nucleated RBC % Seg Neutrophils # Seg Neutrophils # Man Lymphocytes # (Manual) Monocytes # (Manual) Eosinophils # (Manual) PT INR Heparin Anti-Xa Level ABG pH ABG pO2 ABG HCO3 ABG O2 Saturation ABG Base Excess ABG Hemoglobin Oxyhemoglobin Sodium 146 H Potassium 5.2 H Chloride 107.3 H Carbon Dioxide 21 L BUN 132 H Creatinine 3.4 H Glucose 212 H POC Glucose 213 H 181 H Hemoglobin A1c Calcium Phosphorus Magnesium Ferritin AST ALT Alkaline Phosphatase Total Creatine Kinase CK-MB (CK-2) CK-MB (CK-2) Rel Index Troponin T Total Protein Albumin Triglycerides LDL Cholesterol Direct HDL Cholesterol Urine WBC (Auto) Urine Creatinine 04/12/20 04/12/20 04/13/20 21:17 23:24 04:25 WBC RBC Hgb Hct MCV MCHC RDW Lymph % (Auto) Brown % (Auto) Lymph # Brown # Seg Neutrophils % Seg Neuts % (Manual) Lymphocytes % (Manual) Nucleated RBC % Seg Neutrophils # Seg Neutrophils # Man Lymphocytes # (Manual) Monocytes # (Manual) Eosinophils # (Manual) PT INR Heparin Anti-Xa Level ABG pH ABG pO2 161.4 H ABG HCO3 ABG O2 Saturation ABG Base Excess -2.8 L ABG Hemoglobin 7.6 L Oxyhemoglobin Sodium Potassium Chloride Carbon Dioxide BUN Creatinine Glucose POC Glucose 203 H 221 H Hemoglobin A1c Calcium Phosphorus Magnesium Ferritin AST ALT Alkaline Phosphatase Total Creatine Kinase CK-MB (CK-2) CK-MB (CK-2) Rel Index Troponin T Total Protein Albumin Triglycerides LDL Cholesterol Direct HDL Cholesterol Urine WBC (Auto) Urine Creatinine 04/13/20 04/13/20 04/13/20 04:35 04:35 04:35 WBC 13.3 H RBC 2.68 L Hgb 8.0 L Hct 25.1 L MCV MCHC RDW 17.4 H Lymph % (Auto) 9.1 L Brown % (Auto) Lymph # Brown # 0.9 H Seg Neutrophils % 84.0 H Seg Neuts % (Manual) Lymphocytes % (Manual) Nucleated RBC % Seg Neutrophils # 11.1 H Seg Neutrophils # Man Lymphocytes # (Manual) Monocytes # (Manual) Eosinophils # (Manual) PT 27.8 H INR 2.55 H Heparin Anti-Xa Level ABG pH ABG pO2 ABG HCO3 ABG O2 Saturation ABG Base Excess ABG Hemoglobin Oxyhemoglobin Sodium 149 H Potassium 5.2 H Chloride 109.1 H Carbon Dioxide 20 L BUN 136 H Creatinine 3.5 H Glucose 271 H POC Glucose Hemoglobin A1c Calcium 8.3 L Phosphorus Magnesium Ferritin AST 241 H ALT 153 H Alkaline Phosphatase 294 H Total Creatine Kinase CK-MB (CK-2) CK-MB (CK-2) Rel Index Troponin T Total Protein 6.0 L Albumin 2.3 L Triglycerides LDL Cholesterol Direct HDL Cholesterol Urine WBC (Auto) Urine Creatinine 04/13/20 05:27 WBC RBC Hgb Hct MCV MCHC RDW Lymph % (Auto) Brown % (Auto) Lymph # Brown # Seg Neutrophils % Seg Neuts % (Manual) Lymphocytes % (Manual) Nucleated RBC % Seg Neutrophils # Seg Neutrophils # Man Lymphocytes # (Manual) Monocytes # (Manual) Eosinophils # (Manual) PT INR Heparin Anti-Xa Level ABG pH ABG pO2 ABG HCO3 ABG O2 Saturation ABG Base Excess ABG Hemoglobin Oxyhemoglobin Sodium Potassium Chloride Carbon Dioxide BUN Creatinine Glucose POC Glucose 284 H Hemoglobin A1c Calcium Phosphorus Magnesium Ferritin AST ALT Alkaline Phosphatase Total Creatine Kinase CK-MB (CK-2) CK-MB (CK-2) Rel Index Troponin T Total Protein Albumin Triglycerides LDL Cholesterol Direct HDL Cholesterol Urine WBC (Auto) Urine Creatinine Chest x-ray: image reviewed Allied health notes reviewed: RT
[2020-04-13] MEDS: BUDESONIDE 0.5 MG/2 ML NEBU IH SCH ×2 (08:37→20:34)
[2020-04-13] MEDS: ARFORMOTEROL 15 MCG/2 ML NEBU IH SCH ×2 (08:37→20:34)
--- NOTE | 2020-04-13 10:37 | Progress Note ---
Assessment and Plan Assessment and plan: --Ventricular tachycardia; resolved Current Visit: Yes Status: Acute s/pAmiodarone bolus, followed by amiodarone drip Patient developed bradycardia amiodarone drip discontinued Poor prognosis, cardiology following --Cardiac arrest; status post CPR per ACLS Current Visit: Yes Status: Acute On mechanical ventilation, poor prognosis. Full CODE STATUS --Anoxic brain injury; Current Visit: Yes Status: Acute Secondary to cardiac arrest, neurology following Very poor prognosis, family aware --Acute CVA/ left parietal stroke Current Visit: Yes Status: Acute Neurology following, poor prognosis Discussed extensively with the son --Acute systolic CHF; EF 30-35%% Current Visit: Yes Status: Acute Beta-blockers, BIJAN inhibitor, diuretics And put output monitoring --Acute hypoxic respiratory failure; Current Visit: Yes Status: Acute requiring BiPAP, oxygen titrate O2 sats to more than 90% Nebulizers, intubate if no improvement Supportive care, pulmonary following --Transaminitis/Acute liver failure Current Visit: Yes Status: Acute Secondary to severe sepsis LFTs trending down, GI following Abdominal ultrasound, fatty liver, thickening of gallbladder, --Coagulopathy ; secondary to acute liver failure Current Visit: Yes Status: Acute Monitor INR, no evidence of bleeding --Sepsis/infected BKA stump/possible pneumonia Current Visit: Yes Status: Acute Wound care and IV antibiotics Vanco cefepime ID following --acute metabolic encephalopathy/worsening lethargy Current Visit: Yes Status: Acute Multifactorial, sepsis, congestive heart failure, electrolyte abnormalities Patient was unresponsive on 04/08/2020, rapid response was called, CT head: without contrast; late subacute infarction in the posterior cerebral artery or posterior division middle cerebral artery distribution involving the lateral aspect of the left cerebral hemisphere in the parietal occipital junction region Remote bilateral cerebellar infarctions in PICA distribution No acute intracranial abnormalities identified patient is severely lethargic noncommunicative Neurology consult requested. --Hyperkalemia; Current Visit: Yes Status: Acute Slightly improved, follow electrolytes --acute left lower extremity ischemia s/p BKA Current Visit: Yes Status: Acute 03/19/2020 status post endovascular revascularization 03/19/2020 s/p left lower extremity 4 compartment fasciotomy Management per vascular Recommend aspirin, Plavix and Eliquis However Eliquis was discontinued Left BKA on 03/25/2020 --Non-ST elevation WI : Current Visit: Yes Status: Acute Patient has history of CABG ,no chest pain. cardiology feels non-STEMI 2 Medical management --Type II diabetes mellitus Current Visit: Yes Status: Acute Accu-Chek sliding scale coverage ADA diet Long-acting insulin as needed, HbA1c 11 --Nicotine dependence Current Visit: Yes Status: Acute Smoking cessation nicotine patch as needed --Anemia; Current Visit: Yes Status: Acute Gradual drop in H&H, closely monitor and transfuse as needed --Hypotension;/shock Levophed per protocol as needed --Severe protein calorie malnutrition Current Visit: Yes Status: Acute Nutrition supplements and supportive care Nutrition consult if needed --DVT prophylaxis Current Visit: Yes Status: Acute . Coagulopathy/SCD -- Full code status Current Visit: Yes Status: Acute Discharge planning issues Recommend hospice/palliative care Multiorgan involvement, with very poor prognosis I discussed every day , sometimes 2times a day with patient's son Mr. Micah Weiss [phone] of patient's critical condition Multiorgan organ involvement, very poor prognosis, continuous deterioration clinically, I also discussed with him tests and imaging studies reports, consultants recommendations I answered all his questions, I even discussed about patient's advanced directives. The son reports that he would discuss with other family members and will get back to us. Informed patient's nurse of the above conversation, full code status at this time The high probability of a clinically significant, sudden or life threatening deterioration of the [Cardiac , neuro , renal , endocrine , GI , metabolic and respiratory] system(s) required my full and direct attention, intervention and personal management.The aggregate critical care time was [35] minutes.This time is in addition to time spent performing reported procedures but includes the following: [x] Data Review and interpretation [x] Patient assessment and monitoring of vital signs [x] Documentation [x] Medication orders and management We will closely monitor the patient and adjust the management as needed Plan of care reviewed with the patient's nurse History Interval history: I have seen and examined the patient at the bedside this afternoon Patient's chart and medications reviewed Patient is critically ill with multiorgan involvement and failure Unresponsive, orally intubated on ventilatory support No spontaneous movements Vital signs noted Hospitalist Physical - Constitutional Vitals: Temp Pulse Resp BP Pulse Ox 99.4 F 101 H 17 112/68 90 04/13/20 03:34 04/13/20 10:30 04/13/20 10:30 04/13/20 10:30 04/13/20 10:30 General appearance: Present: no acute distress, well-nourished, obese (Morbidly), other (Unresponsive) - EENT Eyes: Present: PERRL, EOM intact - Neck Neck: Present: supple, normal ROM - Respiratory Respiratory effort: normal Respiratory: bilateral: diminished, rhonchi, negative: rales, wheezing - Cardiovascular Rhythm: regular Heart Sounds: Present: S1 & S2 - Extremities Extremities: no ischemia, abnormal (Status post BKA) Extremity abnormal: edema - Abdominal General gastrointestinal: soft, non-tender, non-distended, normal bowel sounds - Integumentary Integumentary: Present: clear, warm - Psychiatric Psychiatric: appropriate mood/affect, cooperative - Neurologic Neurologic: moves all extremities HEART Score - HEART Score Troponin: Troponin T 3.950 ng/mL (0.00-0.029) H* 04/11/20 18:17 Results - Labs CBC & Chem 7: 04/13/20 04:35 04/13/20 04:35 Labs: Laboratory Last Values WBC 13.3 K/mm3 (4.5-11.0) H 04/13/20 04:35 RBC 2.68 M/mm3 (3.65-5.03) L 04/13/20 04:35 Hgb 8.0 gm/dl (11.8-15.2) L 04/13/20 04:35 Hct 25.1 % (35.5-45.6) L 04/13/20 04:35 MCV 94 fl (84-94) 04/13/20 04:35 MCH 30 pg (28-32) 04/13/20 04:35 MCHC 32 % (32-34) 04/13/20 04:35 RDW 17.4 % (13.2-15.2) H 04/13/20 04:35 Plt Count 167 K/mm3 (140-440) 04/13/20 04:35 Lymph % (Auto) 9.1 % (13.4-35.0) L 04/13/20 04:35 Placer % (Auto) 6.6 % (0.0-7.3) 04/13/20 04:35 Eos % (Auto) 0.1 % (0.0-4.3) 04/13/20 04:35 Baso % (Auto) 0.2 % (0.0-1.8) 04/13/20 04:35 Lymph # 1.2 K/mm3 (1.2-5.4) 04/13/20 04:35 Placer # 0.9 K/mm3 (0.0-0.8) H 04/13/20 04:35 Eos # 0.0 K/mm3 (0.0-0.4) 04/13/20 04:35 Baso # 0.0 K/mm3 (0.0-0.1) 04/13/20 04:35 Add Manual Diff Complete 04/11/20 18:17 Total Counted 100 04/11/20 18:17 Seg Neutrophils % 84.0 % (40.0-70.0) H 04/13/20 04:35 Seg Neuts % (Manual) 89.0 % (40.0-70.0) H 04/11/20 18:17 Band Neutrophils % 0 % 04/11/20 18:17 Lymphocytes % (Manual) 7.0 % (13.4-35.0) L 04/11/20 18:17 Reactive Lymphs % (Man) 0 % 04/11/20 18:17 Monocytes % (Manual) 4.0 % (0.0-7.3) 04/11/20 18:17 Eosinophils % (Manual) 0 % (0.0-4.3) 04/11/20 18:17 Basophils % (Manual) 0 % (0.0-1.8) 04/11/20 18:17 Metamyelocytes % 0 % 04/11/20 18:17 Myelocytes % 0 % 04/11/20 18:17 Promyelocytes % 0 % 04/11/20 18:17 Blast Cells % 0 % 04/11/20 18:17 Nucleated RBC % Not Reportable 04/11/20 18:17 Seg Neutrophils # 11.1 K/mm3 (1.8-7.7) H 04/13/20 04:35 Seg Neutrophils # Man 8.8 K/mm3 (1.8-7.7) H 04/11/20 18:17 Band Neutrophils # 0.0 K/mm3 04/11/20 18:17 Lymphocytes # (Manual) 0.7 K/mm3 (1.2-5.4) L 04/11/20 18:17 Abs React Lymphs (Man) 0.0 K/mm3 04/11/20 18:17 Monocytes # (Manual) 0.4 K/mm3 (0.0-0.8) 04/11/20 18:17 Eosinophils # (Manual) 0.0 K/mm3 (0.0-0.4) 04/11/20 18:17 Basophils # (Manual) 0.0 K/mm3 (0.0-0.1) 04/11/20 18:17 Metamyelocytes # 0.0 K/mm3 04/11/20 18:17 Myelocytes # 0.0 K/mm3 04/11/20 18:17 Promyelocytes # 0.0 K/mm3 04/11/20 18:17 Blast Cells # 0.0 K/mm3 04/11/20 18:17 WBC Morphology Not Reportable 04/11/20 18:17 Hypersegmented Neuts Not Reportable 04/11/20 18:17 Hyposegmented Neuts Not Reportable 04/11/20 18:17 Hypogranular Neuts Not Reportable 04/11/20 18:17 Smudge Cells Not Reportable 04/11/20 18:17 Toxic Granulation Not Reportable 04/11/20 18:17 Toxic Vacuolation Not Reportable 04/11/20 18:17 Dohle Bodies Not Reportable 04/11/20 18:17 Pelger-Huet Anomaly Not Reportable 04/11/20 18:17 Ananya Rods Not Reportable 04/11/20 18:17 Platelet Estimate Not Reportable 04/11/20 18:17 Clumped Platelets Not Reportable 04/11/20 18:17 Plt Clumps, EDTA Not Reportable 04/11/20 18:17 Large Platelets Not Reportable 04/11/20 18:17 Giant Platelets Not Reportable 04/11/20 18:17 Platelet Satelliting Not Reportable 04/11/20 18:17 Plt Morphology Comment Not Reportable 04/11/20 18:17 RBC Morphology Normal 04/11/20 18:17 Dimorphic RBCs Not Reportable 04/11/20 18:17 Polychromasia Not Reportable 04/11/20 18:17 Hypochromasia Not Reportable 04/11/20 18:17 Poikilocytosis Not Reportable 04/11/20 18:17 Anisocytosis Not Reportable 04/11/20 18:17 Microcytosis Not Reportable 04/11/20 18:17 Macrocytosis Not Reportable 04/11/20 18:17 Spherocytes Not Reportable 04/11/20 18:17 Pappenheimer Bodies Not Reportable 04/11/20 18:17 Sickle Cells Not Reportable 04/11/20 18:17 Target Cells Not Reportable 04/11/20 18:17 Tear Drop Cells Not Reportable 04/11/20 18:17 Ovalocytes Not Reportable 04/11/20 18:17 Helmet Cells Not Reportable 04/11/20 18:17 Light-[place] Bodies Not Reportable 04/11/20 18:17 Hext Rings Not Reportable 04/11/20 18:17 Kianna Cells Not Reportable 04/11/20 18:17 Bite Cells Not Reportable 04/11/20 18:17 Crenated Cell Not Reportable 04/11/20 18:17 Elliptocytes Not Reportable 04/11/20 18:17 Acanthocytes (Spur) Not Reportable 04/11/20 18:17 Rouleaux Not Reportable 04/11/20 18:17 Hemoglobin C Crystals Not Reportable 04/11/20 18:17 Schistocytes Not Reportable 04/11/20 18:17 Malaria parasites Not Reportable 04/11/20 18:17 Steven Bodies Not Reportable 04/11/20 18:17 Hem Pathologist Commnt No 04/11/20 18:17 PT 27.8 Sec. (12.2-14.9) H 04/13/20 04:35 INR 2.55 (0.87-1.13) H 04/13/20 04:35 APTT 27.7 Sec. (24.2-36.6) 03/18/20 18:28 Heparin Anti-Xa Level 0.10 U.I./ml (0.3-0.7) L 03/25/20 04:06 ABG pH 7.430 pH Units (7.350-7.450) 04/13/20 04:25 ABG pCO2 32.5 mm Hg 04/13/20 04:25 ABG pO2 161.4 mm Hg (80.0-90.0) H 04/13/20 04:25 ABG HCO3 21.1 mmol/L (20.0-26.0) 04/13/20 04:25 ABG O2 Saturation 99.0 % (95.0-99.0) 04/13/20 04:25 ABG O2 Content 10.8 (0.0-44) 04/13/20 04:25 ABG Base Excess -2.8 mmol/L (-2.0-3.0) L 04/13/20 04:25 ABG Hemoglobin 7.6 gm/dl (14.0-18.0) L 04/13/20 04:25 ABG Carboxyhemoglobin 1.7 % (0.0-5.0) 04/13/20 04:25 ABG Methemoglobin 0.5 % (0.0-1.5) 04/13/20 04:25 Oxyhemoglobin 96.9 % (95.0-99.0) 04/13/20 04:25 FiO2 25 % 04/13/20 04:25 Sodium 149 mmol/L (137-145) H 04/13/20 04:35 Potassium 5.2 mmol/L (3.6-5.0) H 04/13/20 04:35 Chloride 109.1 mmol/L (98-107) H 04/13/20 04:35 Carbon Dioxide 20 mmol/L (22-30) L 04/13/20 04:35 Anion Gap 25 mmol/L 04/13/20 04:35 BUN 136 mg/dL (9-20) H 04/13/20 04:35 Creatinine 3.5 mg/dL (0.8-1.3) H 04/13/20 04:35 Estimated GFR 18 ml/min 04/13/20 04:35 BUN/Creatinine Ratio 39 % 04/13/20 04:35 Glucose 271 mg/dL (75-100) H 04/13/20 04:35 POC Glucose 284 (70-105) H 04/13/20 05:27 Hemoglobin A1c 11.0 % (4-6) H 03/18/20 22:21 Calcium 8.3 mg/dL (8.4-10.2) L 04/13/20 04:35 Phosphorus 7.40 mg/dL (2.5-4.5) H 04/11/20 18:17 Magnesium 3.00 mg/dL (1.7-2.3) H 04/12/20 07:22 Ferritin 444.2 ng/mL (30.0-300.0) H 04/06/20 07:14 Total Bilirubin 1.10 mg/dL (0.1-1.2) 04/13/20 04:35 AST 241 units/L (5-40) H 04/13/20 04:35 ALT 153 units/L (7-56) H 04/13/20 04:35 Alkaline Phosphatase 294 units/L (35-129) H 04/13/20 04:35 Ammonia 38.0 umol/L (25-60) 04/12/20 07:22 Total Creatine Kinase 351 units/L (55-170) H 04/11/20 18:17 CK-MB (CK-2) 3.5 ng/mL (0.0-4.0) 04/11/20 18:17 CK-MB (CK-2) Rel Index 0.9 (0-4) 04/11/20 18:17 Troponin T 3.950 ng/mL (0.00-0.029) H* 04/11/20 18:17 Total Protein 6.0 g/dL (6.3-8.2) L 04/13/20 04:35 Albumin 2.3 g/dL (3.9-5) L 04/13/20 04:35 Albumin/Globulin Ratio 0.6 % 04/13/20 04:35 Triglycerides 99 mg/dL (2-149) 04/11/20 18:17 Cholesterol 93 mg/dL (50-199) 04/11/20 18:17 LDL Cholesterol Direct 60 mg/dL (50-130) 04/11/20 18:17 HDL Cholesterol 19 mg/dL (40-59) L 04/11/20 18:17 Cholesterol/HDL Ratio 4.89 % 04/11/20 18:17 Urine Color Yellow (Yellow) 04/11/20 16:30 Urine Turbidity Slightly-cloudy (Clear) 04/11/20 16:30 Urine pH 5.0 (5.0-7.0) 04/11/20 16:30 Ur Specific [place] 1.013 (1.003-1.030) 04/11/20 16:30 Urine Protein <15 mg/dl mg/dL (Negative) 04/11/20 16:30 Urine Glucose (UA) Neg mg/dL (Negative) 04/11/20 16:30 Urine Ketones Neg mg/dL (Negative) 04/11/20 16:30 Urine Blood Lg (Negative) 04/11/20 16:30 Urine Nitrite Neg (Negative) 04/11/20 16:30 Urine Bilirubin Neg (Negative) 04/11/20 16:30 Urine Urobilinogen < 2.0 mg/dL (<2.0) 04/11/20 16:30 Ur Leukocyte Esterase Neg (Negative) 04/11/20 16:30 Urine WBC (Auto) 16.0 /HPF (0.0-6.0) H 04/11/20 16:30 Urine RBC (Auto) 19.0 /HPF (0.0-6.0) 04/11/20 16:30 U Epithel Cells (Auto) 1.0 /HPF (0-13.0) 04/11/20 16:30 Urine Mucus Few /HPF 04/11/20 16:30 Urine Yeast (Budding) Few /HPF 04/11/20 16:30 Urine Eosinophils None seen (None Seen) 04/11/20 16:30 Urine Creatinine 60.0 mg/dL (0.1-20.0) H 04/11/20 16:30 Urine Sodium 26 mmol/L 04/11/20 16:30 Random Vancomycin 18.3 ug/mL (0-40.0) 04/13/20 06:34 Coronavirus (PCR) Negative (Negative) 04/03/20 08:00 Hep Bs Antigen Non-reactive (Negative) 04/06/20 07:14 Hepatitis C Antibody Non-reactive (NonReactive) 04/06/20 07:14 Blood Type B POSITIVE 03/25/20 11:42 Antibody Screen Negative 03/25/20 11:42 Microbiology: Microbiology 04/08/20 Unknown Leg - Left Wound Culture - Preliminary Enterococcus Species 04/11/20 17:20 Tracheal Aspirate Sputum Culture - Preliminary - Diagnostic Impressions Diagnostic Impressions: Echocardiogram 03/19/20 12:49 Transthoracic Echocardiogram Indication: CAD and Abnormal EKG HR: 110 Conclusions *The study is technically limited due to patient body habitus. *The left ventricular chamber size is mildly dilated. *Global left ventricular systolic function is moderate to severely decreased. *The estimated ejection fraction is 30-35%. *The basal inferolateral, and basal inferior wall segments are normal. *The mid inferolateral, mid inferior, apical lateral, and apical inferior wall segments are akinetic. *The left atrial chamber size is normal. Findings Procedure Info: The study is technically limited due to patient body habitus. The study was technically limited due to the patient's inability to lay in the left lateral decubitus position. Left Ventricle: The left ventricular chamber size is mildly dilated. Global left ventricular systolic function is moderate to severely decreased. The estimated ejection fraction is 30-35%. The basal inferolateral, and basal inferior wall segments are normal. The mid inferolateral, mid inferior, apical lateral, and apical inferior wall segments are akinetic. Left Atrium: The left atrial chamber size is normal. Right Ventricle: The right ventricle is not well visualized. Right Atrium: The right atrium is not well visualized. The right atrial cavity size is normal. Aortic Valve: The aortic valve is trileaflet. Mitral Valve: The mitral valve leaflets are moderately thickened. There is mild mitral regurgitation. Tricuspid Valve: The tricuspid valve is not well visualized. There is trace tricuspid regurgitation. Pulmonic Valve: The pulmonic valve is not well visualized. Pericardium: There is no pericardial effusion. Aorta: The aorta appears normal. Venous: The venous system is not well visualized. Contrast: Definity was used to optimize study. Measurements Chambers 2D Name Value Normal Range IVSd (2D) 0.94 cm (0.6 - 1.1) LVPWd (2D) 0.94 cm (0.6 - 1.1) LVIDd (2D) 6.15 cm (3.7 - 5.6) LVIDs (2D) 5.2 cm (2 - 3.8) LV FS (2D) 15.5 % - EF Teichholz (2D) 32.08 % - Ao root diameter (2D) 2.77 cm (2 - 3.7) Volumes/Mass Name Value Normal Range LA ESV SP 4CH (A/L) 73.77 ml - LA ESV SP 2CH (A/L) 66.45 ml - LA ESV BP (A/L) 71.61 ml - LA ESV BP (A/L) index 30.6 ml/m2 - LA ESV SP 4CH (MOD) 72.55 ml - LA ESV SP 2CH (MOD) 65.34 ml - LA ESV BP (MOD) 70.27 ml - LA ESV BP (MOD) index 30.03 ml/m2 - Diastolic/Systolic Function Name Value Normal Range MV E-wave Vmax 0.85 m/sec - MV deceleration time 69.14 msec - MV A-wave Vmax 0.89 m/sec - MV E:A ratio 0.95 ratio - Aortic Valve Name Value Normal Range AV Vmax 0.96 m/sec - AV VTI 11.83 cm - AV peak gradient 3.68 mmHg - AV mean gradient 1.6 mmHg - LVOT diameter 2.19 cm - LVOT Vmax 0.86 m/sec - LVOT VTI 13.33 cm - LVOT peak gradient 2.96 mmHg - LVOT mean gradient 1.48 mmHg - SV LVOT 50.08 ml - DEYA (continuity Vmax) 3.37 cm2 - DEYA (continuity VTI) 4.23 cm2 - Ascending Ao 2.92 cm - Pulmonic Valve/Qp:Qs Name Value Normal Range PV Vmax 1.08 m/sec - PV VTI 15.88 cm - PV peak gradient 4.7 mmHg - PV mean gradient 2.18 mmHg - RVOT Vmax 0.82 m/sec - RVOT VTI 11.48 cm - RVOT peak gradient 2.67 mmHg - Wallmotion BAS Not Seen BA Not Seen BAL Not Seen BAY Normal BI Normal BIS Not Seen MAS Not Seen MA Not Seen MAL Not Seen MIL Akinetic WI Akinetic MIS Not Seen Not Seen AA Not Seen AL Akinetic AI Akinetic APEX Not Seen Tyson/IV: Voiding Method Indwelling Catheter IV Catheter Type [Right Peripheral IV Forearm] IV Catheter Type [Right INT / Saline Lock Antecubital] IV Catheter Type [Right Hand] Peripheral IV IV Catheter Type [Left Forearm INT / Saline Lock ] IV Catheter Type [Left Upper PICC Line arm] IV Catheter Type [Left INT / Saline Lock Antecubital] Active Medications - Current Medications Current Medications: Generic Name Dose Route Start Last Admin Trade Name Freq PRN Reason Stop Dose Admin Albuterol 2.5 mg 04/01/20 00:03 Proventil IH Q6HRT PRN Shortness Of Breath Lipase/Protease/Amylase 1 each 04/10/20 17:[address] 10,500 Unit FEEDTUBE PRN PRN For Clogged Feeding Tube Arformoterol Tartrate 15 mcg 03/19/20 20:00 04/13/20 08:37 Brovana Nebu IH 15 mcg Q12HRT LOI Administration Aspirin 81 mg 04/10/20 16:00 04/12/20 10:01 Halfprin Ec PO 81 mg QDAY LOI Administration Atorvastatin Calcium 40 mg 03/19/20 22:00 04/12/20 22:01 Lipitor PO 40 mg QHS LOI Administration Budesonide 0.5 mg 03/19/20 20:00 04/13/20 08:37 Pulmicort IH 0.5 mg Q12HRT LOI Administration Clopidogrel Bisulfate 75 mg 03/19/20 10:00 04/12/20 10:02 Plavix PO 75 mg QDAY LOI Administration Dextrose 50 ml 03/18/20 22:21 04/08/20 07:42 D50w (25gm) Syringe IV 50 ml Q30MIN PRN Administration Hypoglycemia Protocol Diphenhydramine HCl 25 mg 03/19/20 12:44 Benadryl IV Q4H PRN Itching Fentanyl 50 mcg 04/11/20 20:22 Sublimaze IV Q10MIN PRN ANALGESIA Furosemide 40 mg 04/06/20 06:00 04/12/20 18:05 Lasix IV 40 mg 0600,1800 LOI Administration Hydrophilic Ointment 1 applic 04/11/20 20:22 Vaseline Lip Therapy TP Q2HR PRN Dry Lips Cefepime HCl 1 gm in 100 mls @ 200 mls/hr 04/08/20 13:00 04/12/20 22:01 Cefepime/Ns 1 Gm/100 Ml IV 200 mls/hr Q12HR LOI Administration Protocol Norepinephrine 4 mg in 250 mls @ 7.5 mls/hr 04/11/20 18:00 04/12/20 18:10 Levophed Drip 4 Mg/Ns 250 Ml IV 8 mcg/min TITR LOI 30 mls/hr Administration Protocol 2 MCG/MIN Fentanyl Citrate 2,000 mcg in 100 mls @ 6.405 mls/hr 04/11/20 21:00 Fentanyl Drip Premix IV TITR LOI Protocol 1 MCG/KG/HR Insulin Human Lispro 0 unit 04/12/20 00:00 04/13/20 06:41 Humalog SUB-Q 4 unit Q6HR LOI Administration Protocol Ipratropium [place] 0.5 mg 04/01/20 00:05 Atrovent IH Q6HRT PRN Shortness Of Breath Lansoprazole 30 mg 04/12/20 10:00 04/12/20 22:01 Prevacid Solutab FEEDTUBE 30 mg BID LOI Administration Magnesium Hydroxide 30 ml 03/18/20 22:21 Milk Of Magnesia PO Q4H PRN Constipation Metoprolol Tartrate 50 mg 03/19/20 22:00 04/13/20 06:37 Metoprolol PO Not Given BID LOI Multi-Ingred Cream/Lotion/Oil/Oint 1 applic 04/11/20 20:22 Artificial Tears Ophth Oint OU Q4HR PRN Dry Eye(s) Naloxone HCl 0.1 mg 03/19/20 12:44 Naloxone IV Q2MIN PRN Res Rate </= 8 or 02 SAT < 92% Ondansetron HCl 4 mg 03/18/20 22:21 04/05/20 01:46 Zofran IV 4 mg Q8H PRN Administration Nausea And Vomiting Simple Syrup 15 ml 04/10/20 17:39 Simple Syrup FEEDTUBE PRN PRN Hypoglycemia Simple Syrup 30 ml 04/10/20 17:39 Simple Syrup FEEDTUBE PRN PRN Hypoglycemia Sodium Bicarbonate 325 mg 04/10/20 17:39 Sodium Bicarbonate FEEDTUBE PRN PRN For Clogged Feeding Tube Sodium Chloride 10 ml 03/19/20 10:00 04/12/20 10:03 Sodium Chloride Flush Syringe 10 Ml IV 10 ml BID LOI Administration Sodium Chloride 10 ml 03/18/20 22:21 04/11/20 05:57 Sodium Chloride Flush Syringe 10 Ml IV 10 ml PRN PRN Administration LINE FLUSH Nutrition/Malnutrition Assess - Dietary Evaluation Nutrition/Malnutrition Findings: Nutrition Notes Start: 03/19/20 11:59 Freq: Status: Active Protocol: Document 04/11/20 08:54 LM (Rec: 04/11/20 09:04 LM [id number]) Nutrition Notes Need for Assessment generated from: MD Order Initial or Follow up Reassessment Current Diagnosis COPD,Diabetes Other Pertinent Diagnosis (L) LE ischemia s/p (L) BKA, STARR, NSTEMI Current Diet TF Labs/Tests K 5.3 Na 146 BUN 109 Cr 2.1 Pertinent Medications Lasix Height 6 ft Weight 128.1 kg [place] Body Weight (kg) 80.90 BMI 38.2 Weight Status Obese Subjective/Other Information MD consult for TF. Pt with dobhoff. Burn Absent Trauma Absent Current % PO Negligible Minimum of two criteria No #1 Nutrition Diagnosis Increased nutrient needs ( specify in comment below) Diagnosis Progress(for reassessment Continues documentation) Is patient on ventilator? No Is Patient Ambulatory and/or Out of Bed No REE-([place] [place]-confined to bed) [phone] Kcal/Kg value to use for calculation 17 Approximate Energy Requirements Using 2178 kcal/Kg Calculation Used for Recommendations Kcal/kg Additional Notes Pro needs 1-1.2g/kg adjBW (not for amputation): 105-125g/day Fluid needs 1ml/kcal Nutrition Intervention Change Diet Order: TF Nutrition Support: Nepro 1.8 at 45ml/hr Flush 200ml q4h Kcal 1,944 Protein (gm) 87 Fluid (mL) 785 Goal #1 TF start/tolerance Goal #2 Healing of surgical site Anticipated Discharge Needs: unable to determine at this time Follow-Up By: 04/15/20 Additional Comments F/U for TF start/tolerance, Na /K labs
[2020-04-13] MEDS ORDERED: SODIUM CHLORIDE 0.9% 500 ML 500 ML IV ONE (10:40)
[2020-04-13] MEDS: ASPIRIN EC 81 MG TAB PO SCH (11:36)
[2020-04-13] MEDS: CLOPIDOGREL 75 MG TAB PO SCH (11:36)
[2020-04-13] MEDS: LANSOPRAZOLE 30 MG SOLUTAB FEEDTUBE SCH ×2 (11:36→23:00)
[2020-04-13] MEDS: CEFEPIME/NS 1 GM/100 ML 1 GM/100 ML BAG IV SCH ×2 (11:40→23:00)
[2020-04-13] MEDS: NORepinephrine/NS 4 MG-250 ML 4 MG/250 ML BAG IV SCH ×2 (11:54→20:25)
--- NOTE | 2020-04-13 12:11 | Progress Note ---
Assessment and Plan 1. Acute kidney injury: Vasomotor DYLON in the setting of sepsis and hypotension. US negative for hydro. UA results noted. Monitor renal function. Creatinine level continue to increase. Avoid nephrotoxic agents. Meds dosage based on GFR. 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 2. FEN: Hyperkalemia, Kayexalate ordered, monitor. Metabolic acidosis, monitor. Hypernatremia, increase water flushes to 250 ml Q4 (d/w RN), monitor. Monitor lytes and volume status. 3. Sepsis: PNA vs L stump infection. Followed by ID. 4. Shock / Hypotension: On Levophed. Monitor BP. 5. Acute hypoxic respiratory failure: Intubated 04/11, on vent. 6. s/p Cardiac arrest. 7. Acute left lower extremity ischemia: 03/19/2020 status post endovascular revascularization. 03/19/2020 s/p left lower extremity 4 compartment fasciotomy. 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 8. Non-ST elevation MA : Patient has history of CABG, patient denies any chest pain. Followed by Cards. 9. Acute systolic CHF; EF 30-35%: Beta-blockers. 10. Acute metabolic encephalopathy: Multifactorial. Followed by Neurology. 11. Elevated Transaminases: Followed by GI. 12. DM with hyperglycemia: Accu-Check, sliding scale coverage, ADA diet. HbA1C 11. 13. Anemia: Closely monitor and transfuse as needed. - Subjective: Patient was seen and examined at the bedside. In ICU. FiO2 25% - General Appearance General appearance: well-developed, obese, appears stated age, intubated, on vent HEENT: ATNC, PERRL Neck: Trachea midline Respiratory: appears ctab Cardiology: regular, S1S2, no murmur Gastrointestinal: soft, bowel sounds, not tender, not distended Integumentary: L BKA dressing Neurologic: sedated Ext: trace extremity edema : acosta catheter Subjective Date of service: 04/13/20 Principal diagnosis: Anoxic brain injury, stroke Objective - Vital Signs Vital signs: Vital Signs - 12hr 04/13/20 04/13/20 04/13/20 00:21 00:30 00:41 Temperature Pulse Rate 82 87 80 Pulse Rate [ Anterior Bilateral Throughout] Pulse Rate [ Apical] Respiratory 24 21 18 Rate Respiratory Rate [Anterior Bilateral Throughout] Blood Pressure 107/44 100/50 100/50 O2 Sat by Pulse 98 96 96 Oximetry 04/13/20 04/13/20 04/13/20 00:51 01:00 01:08 Temperature Pulse Rate 82 102 H 101 H Pulse Rate [ Anterior Bilateral Throughout] Pulse Rate [ Apical] Respiratory 22 18 Rate Respiratory Rate [Anterior Bilateral Throughout] Blood Pressure 102/46 113/69 113/69 O2 Sat by Pulse 97 97 97 Oximetry 04/13/20 04/13/20 04/13/20 01:11 01:21 01:30 Temperature Pulse Rate 101 H 101 H 101 H Pulse Rate [ Anterior Bilateral Throughout] Pulse Rate [ Apical] Respiratory 20 18 18 Rate Respiratory Rate [Anterior Bilateral Throughout] Blood Pressure 113/69 103/66 107/66 O2 Sat by Pulse 97 97 97 Oximetry 04/13/20 04/13/20 04/13/20 01:41 01:51 02:00 Temperature Pulse Rate 100 H 100 H 99 H Pulse Rate [ Anterior Bilateral Throughout] Pulse Rate [ Apical] Respiratory 17 19 18 Rate Respiratory Rate [Anterior Bilateral Throughout] Blood Pressure 107/66 111/69 110/68 O2 Sat by Pulse 98 97 97 Oximetry 04/13/20 04/13/20 04/13/20 02:11 02:21 02:30 Temperature Pulse Rate 100 H 100 H 100 H Pulse Rate [ Anterior Bilateral Throughout] Pulse Rate [ Apical] Respiratory 19 18 18 Rate Respiratory Rate [Anterior Bilateral Throughout] Blood Pressure 110/68 109/65 112/70 O2 Sat by Pulse 97 97 97 Oximetry 04/13/20 04/13/20 04/13/20 02:41 02:51 03:00 Temperature Pulse Rate 99 H 99 H 99 H Pulse Rate [ Anterior Bilateral Throughout] Pulse Rate [ Apical] Respiratory 19 20 18 Rate Respiratory Rate [Anterior Bilateral Throughout] Blood Pressure 112/70 104/53 107/71 O2 Sat by Pulse 97 97 97 Oximetry 04/13/20 04/13/20 04/13/20 03:11 03:21 03:30 Temperature Pulse Rate 99 H 99 H 99 H Pulse Rate [ Anterior Bilateral Throughout] Pulse Rate [ Apical] Respiratory 20 20 19 Rate Respiratory Rate [Anterior Bilateral Throughout] Blood Pressure 107/71 109/70 116/75 O2 Sat by Pulse 97 97 97 Oximetry 04/13/20 04/13/20 04/13/20 03:34 03:41 03:51 Temperature 99.4 F Pulse Rate 80 80 Pulse Rate [ Anterior Bilateral Throughout] Pulse Rate [ Apical] Respiratory 20 20 Rate Respiratory Rate [Anterior Bilateral Throughout] Blood Pressure 116/75 107/59 O2 Sat by Pulse 97 97 Oximetry 04/13/20 04/13/20 04/13/20 04:00 04:01 04:11 Temperature Pulse Rate 82 81 103 H Pulse Rate [ Anterior Bilateral Throughout] Pulse Rate [ 82 Apical] Respiratory 22 18 Rate Respiratory Rate [Anterior Bilateral Throughout] Blood Pressure 114/60 114/60 O2 Sat by Pulse 100 96 96 Oximetry 04/13/20 04/13/20 04/13/20 04:21 04:23 04:30 Temperature Pulse Rate 101 H 102 H 101 H Pulse Rate [ Anterior Bilateral Throughout] Pulse Rate [ Apical] Respiratory 20 18 Rate Respiratory Rate [Anterior Bilateral Throughout] Blood Pressure 111/68 111/68 96/63 O2 Sat by Pulse 97 97 97 Oximetry 04/13/20 04/13/20 04/13/20 04:41 04:51 05:00 Temperature Pulse Rate 100 H 101 H 101 H Pulse Rate [ Anterior Bilateral Throughout] Pulse Rate [ Apical] Respiratory 21 20 19 Rate Respiratory Rate [Anterior Bilateral Throughout] Blood Pressure 96/63 108/63 104/61 O2 Sat by Pulse 97 97 97 Oximetry 04/13/20 04/13/20 04/13/20 05:11 05:21 05:31 Temperature Pulse Rate 101 H 100 H 95 H Pulse Rate [ Anterior Bilateral Throughout] Pulse Rate [ Apical] Respiratory 19 18 19 Rate Respiratory Rate [Anterior Bilateral Throughout] Blood Pressure 104/61 106/64 87/45 O2 Sat by Pulse 97 97 97 Oximetry 04/13/20 04/13/20 04/13/20 05:41 05:51 06:01 Temperature Pulse Rate 81 80 82 Pulse Rate [ Anterior Bilateral Throughout] Pulse Rate [ Apical] Respiratory 19 22 20 Rate Respiratory Rate [Anterior Bilateral Throughout] Blood Pressure 87/45 112/61 103/50 O2 Sat by Pulse 97 96 96 Oximetry 04/13/20 04/13/20 04/13/20 06:11 06:21 06:31 Temperature Pulse Rate 81 82 83 Pulse Rate [ Anterior Bilateral Throughout] Pulse Rate [ Apical] Respiratory 20 19 22 Rate Respiratory Rate [Anterior Bilateral Throughout] Blood Pressure 103/50 98/41 98/41 O2 Sat by Pulse 96 96 97 Oximetry 04/13/20 04/13/20 04/13/20 06:37 06:41 06:51 Temperature Pulse Rate 81 82 101 H Pulse Rate [ Anterior Bilateral Throughout] Pulse Rate [ Apical] Respiratory 20 17 Rate Respiratory Rate [Anterior Bilateral Throughout] Blood Pressure 103/48 98/41 108/66 O2 Sat by Pulse 96 97 Oximetry 04/13/20 04/13/20 04/13/20 07:00 07:11 07:21 Temperature Pulse Rate 102 H 100 H 100 H Pulse Rate [ Anterior Bilateral Throughout] Pulse Rate [ Apical] Respiratory 18 19 18 Rate Respiratory Rate [Anterior Bilateral Throughout] Blood Pressure 105/65 98/41 108/66 O2 Sat by Pulse 97 97 97 Oximetry 04/13/20 04/13/20 04/13/20 07:30 07:41 07:51 Temperature Pulse Rate 100 H 100 H 54 L Pulse Rate [ Anterior Bilateral Throughout] Pulse Rate [ Apical] Respiratory 19 18 19 Rate Respiratory Rate [Anterior Bilateral Throughout] Blood Pressure 106/63 108/66 107/63 O2 Sat by Pulse 97 97 97 Oximetry 04/13/20 04/13/20 04/13/20 08:00 08:01 08:11 Temperature Pulse Rate 50 L 80 82 Pulse Rate [ Anterior Bilateral Throughout] Pulse Rate [ Apical] Respiratory 22 20 Rate Respiratory Rate [Anterior Bilateral Throughout] Blood Pressure 107/63 107/63 O2 Sat by Pulse 96 97 95 Oximetry 04/13/20 04/13/20 04/13/20 08:21 08:31 08:32 Temperature Pulse Rate 81 81 82 Pulse Rate [ Anterior Bilateral Throughout] Pulse Rate [ Apical] Respiratory 22 21 Rate Respiratory Rate [Anterior Bilateral Throughout] Blood Pressure 89/41 98/34 O2 Sat by Pulse 96 96 96 Oximetry 04/13/20 04/13/20 04/13/20 08:37 08:41 08:51 Temperature Pulse Rate 82 81 Pulse Rate [ 82 Anterior Bilateral Throughout] Pulse Rate [ Apical] Respiratory 20 21 Rate Respiratory 20 Rate [Anterior Bilateral Throughout] Blood Pressure 98/34 100/39 O2 Sat by Pulse 95 95 Oximetry 04/13/20 04/13/20 04/13/20 09:01 09:11 09:21 Temperature Pulse Rate 81 81 81 Pulse Rate [ Anterior Bilateral Throughout] Pulse Rate [ Apical] Respiratory 20 20 21 Rate Respiratory Rate [Anterior Bilateral Throughout] Blood Pressure 103/37 103/37 100/39 O2 Sat by Pulse 96 96 96 Oximetry 04/13/20 04/13/20 04/13/20 09:31 09:41 09:51 Temperature Pulse Rate 81 80 81 Pulse Rate [ Anterior Bilateral Throughout] Pulse Rate [ Apical] Respiratory 20 20 23 Rate Respiratory Rate [Anterior Bilateral Throughout] Blood Pressure 101/40 101/40 101/40 O2 Sat by Pulse 96 97 97 Oximetry 04/13/20 04/13/20 04/13/20 10:01 10:11 10:21 Temperature Pulse Rate 80 81 80 Pulse Rate [ Anterior Bilateral Throughout] Pulse Rate [ Apical] Respiratory 21 21 21 Rate Respiratory Rate [Anterior Bilateral Throughout] Blood Pressure 95/36 95/36 107/38 O2 Sat by Pulse 97 96 97 Oximetry 04/13/20 04/13/20 04/13/20 10:30 10:41 10:51 Temperature Pulse Rate 101 H 101 H 100 H Pulse Rate [ Anterior Bilateral Throughout] Pulse Rate [ Apical] Respiratory 17 19 19 Rate Respiratory Rate [Anterior Bilateral Throughout] Blood Pressure 112/68 112/68 107/62 O2 Sat by Pulse 90 90 91 Oximetry 04/13/20 04/13/20 04/13/20 11:00 11:11 11:21 Temperature Pulse Rate 100 H 100 H 101 H Pulse Rate [ Anterior Bilateral Throughout] Pulse Rate [ Apical] Respiratory 19 19 22 Rate Respiratory Rate [Anterior Bilateral Throughout] Blood Pressure 110/66 110/66 102/57 O2 Sat by Pulse 92 90 93 Oximetry 04/13/20 04/13/20 04/13/20 11:30 11:41 11:51 Temperature Pulse Rate 99 H 98 H 97 H Pulse Rate [ Anterior Bilateral Throughout] Pulse Rate [ Apical] Respiratory 21 20 21 Rate Respiratory Rate [Anterior Bilateral Throughout] Blood Pressure 95/51 102/57 101/57 O2 Sat by Pulse 93 92 96 Oximetry 04/13/20 04/13/20 11:58 12:00 Temperature Pulse Rate 62 Pulse Rate [ Anterior Bilateral Throughout] Pulse Rate [ Apical] Respiratory Rate Respiratory Rate [Anterior Bilateral Throughout] Blood Pressure O2 Sat by Pulse 96 Oximetry - Lab 04/13/20 04:35 04/13/20 04:35 Most recent lab results ABG pH 7.430 pH Units (7.350-7.450) 04/13/20 04:25 ABG pCO2 32.5 mm Hg 04/13/20 04:25 ABG pO2 161.4 mm Hg (80.0-90.0) H 04/13/20 04:25 ABG HCO3 21.1 mmol/L (20.0-26.0) 04/13/20 04:25 ABG O2 Saturation 99.0 % (95.0-99.0) 04/13/20 04:25 Calcium 8.3 mg/dL (8.4-10.2) L 04/13/20 04:35 Phosphorus 7.40 mg/dL (2.5-4.5) H 04/11/20 18:17 Magnesium 3.00 mg/dL (1.7-2.3) H 04/12/20 07:22 Urine Creatinine 60.0 mg/dL (0.1-20.0) H 04/11/20 16:30 Urine Sodium 26 mmol/L 04/11/20 16:30 Medications & Allergies - Medications Allergies/Adverse Reactions: Allergies No Known Allergies Allergy (Unverified 03/18/20 15:17) Home Medications: Home Medications Medication Instructions Recorded Confirmed Last Taken Type AtorvaSTATin [Lipitor] 20 mg PO QHS 03/20/20 03/20/20 03/14/20 History Clopidogrel [Plavix] 75 mg PO QHS 03/20/20 03/20/20 03/14/20 History Famotidine [Acid Controller] 20 mg PO BID 03/20/20 03/20/20 03/14/20 History Fenofibrate Nanocrystallized 48 mg PO DAILY 03/20/20 03/20/20 03/14/20 History [Fenofibrate] Metoprolol Tartrate 25 mg PO BID 03/20/20 03/20/20 03/14/20 History Pregabalin [Lyrica] 150 mg PO BID 03/20/20 03/20/20 03/14/20 History amLODIPine [Norvasc] 5 mg PO DAILY 03/20/20 03/20/20 03/14/20 History glipiZIDE [Glucotrol] 10 mg PO BID 03/20/20 03/20/20 03/14/20 History hydroCHLOROthiazide [HCTZ] 25 mg PO QDAY 03/20/20 03/20/20 03/14/20 History lisinopriL [Zestril TAB] 40 mg PO QDAY 03/20/20 03/20/20 03/14/20 History Active Medications: Generic Name Dose Route Start Last Admin Trade Name Freq PRN Reason Stop Dose Admin Albuterol 2.5 mg 04/01/20 00:03 Proventil IH Q6HRT PRN Shortness Of Breath Lipase/Protease/Amylase 1 each 04/10/20 17:39 Pancrecarroll [place] 10,500 Unit FEEDTUBE PRN PRN For Clogged Feeding Tube Arformoterol Tartrate 15 mcg 03/19/20 20:00 04/13/20 08:37 Brovana Nebu IH 15 mcg Q12HRT LOI Administration Aspirin 81 mg 04/10/20 16:00 04/13/20 11:36 Halfprin Ec PO 81 mg QDAY LOI Administration Atorvastatin Calcium 40 mg 03/19/20 22:00 04/12/20 22:01 Lipitor PO 40 mg QHS LOI Administration Budesonide 0.5 mg 03/19/20 20:00 04/13/20 08:37 Pulmicort IH 0.5 mg Q12HRT LOI Administration Clopidogrel Bisulfate 75 mg 03/19/20 10:00 04/13/20 11:36 Plavix PO 75 mg QDAY LOI Administration Dextrose 50 ml 03/18/20 22:21 04/08/20 07:42 D50w (25gm) Syringe IV 50 ml Q30MIN PRN Administration Hypoglycemia Protocol Diphenhydramine HCl 25 mg 03/19/20 12:44 Benadryl IV Q4H PRN Itching Fentanyl 50 mcg 04/11/20 20:22 Sublimaze IV Q10MIN PRN ANALGESIA Furosemide 40 mg 04/06/20 06:00 04/12/20 18:05 Lasix IV 40 mg 0600,1800 LOI Administration Hydrophilic Ointment 1 applic 04/11/20 20:22 Vaseline Lip Therapy TP Q2HR PRN Dry Lips Cefepime HCl 1 gm in 100 mls @ 200 mls/hr 04/08/20 13:00 04/13/20 11:40 Cefepime/Ns 1 Gm/100 Ml IV 200 mls/hr Q12HR LOI Administration Protocol Norepinephrine 4 mg in 250 mls @ 7.5 mls/hr 04/11/20 18:00 04/13/20 11:54 Levophed Drip 4 Mg/Ns 250 Ml IV 10 mcg/min TITR LOI 37.5 mls/hr Administration Protocol 2 MCG/MIN Fentanyl Citrate 2,000 mcg in 100 mls @ 6.405 mls/hr 04/11/20 21:00 Fentanyl Drip Premix IV TITR LOI Protocol 1 MCG/KG/HR Insulin Human Lispro 0 unit 04/12/20 00:00 04/13/20 06:41 Humalog SUB-Q 4 unit Q6HR [facility] Administration Protocol Ipratropium [place] 0.5 mg 04/01/20 00:05 Atrovent IH Q6HRT PRN Shortness Of Breath Lansoprazole 30 mg 04/12/20 10:00 04/13/20 11:36 Prevacid Solutab FEEDTUBE 30 mg BID [facility] Administration Magnesium Hydroxide 30 ml 03/18/20 22:21 Milk Of Magnesia PO Q4H PRN Constipation Metoprolol Tartrate 50 mg 03/19/20 22:00 04/13/20 11:39 Metoprolol PO 50 mg BID [facility] Administration Multi-Ingred Cream/Lotion/Oil/Oint 1 applic 04/11/20 20:22 Artificial Tears Ophth Oint OU Q4HR PRN Dry Eye(s) Naloxone HCl 0.1 mg 03/19/20 12:44 Naloxone IV Q2MIN PRN Res Rate </= 8 or 02 SAT < 92% Ondansetron HCl 4 mg 03/18/20 22:21 04/05/20 01:46 Zofran IV 4 mg Q8H PRN Administration Nausea And Vomiting Simple Syrup 15 ml 04/10/20 17:39 Simple Syrup FEEDTUBE PRN PRN Hypoglycemia Simple Syrup 30 ml 04/10/20 17:39 Simple Syrup FEEDTUBE PRN PRN Hypoglycemia Sodium Bicarbonate 325 mg 04/10/20 17:39 Sodium Bicarbonate FEEDTUBE PRN PRN For Clogged Feeding Tube Sodium Chloride 10 ml 03/19/20 10:00 04/13/20 11:38 Sodium Chloride Flush Syringe 10 Ml IV 10 ml BID [facility] Administration Sodium Chloride 10 ml 03/18/20 22:21 04/11/20 05:57 Sodium Chloride Flush Syringe 10 Ml IV 10 ml PRN PRN Administration LINE FLUSH
[2020-04-13] MEDS ORDERED: SODIUM POLYSTYRENE 15 GM/60 ML ORAL LIQD PO ONE (14:00)
[2020-04-13] MEDS ORDERED: metOLazone 5 MG TAB FEEDTUBE ONE (14:00)
--- NOTE | 2020-04-13 15:25 | Cat Scan Report ---
CT HEAD WITHOUT CONTRAST INDICATION / CLINICAL INFORMATION: Anoxic brain injury. TECHNIQUE: All CT scans at this location are performed using CT dose reduction for ALARA by means of automated e xposure control. COMPARISON: MRI dated 04/11/2020. Prior CT dated 04/08/2020. FINDINGS: HEMORRHAGE: None. EXTRA-AXIAL SPACES: Normal in size and morphology for the patient's age. VENTRICULAR SYSTEM: Normal in size and morphology for the patient's age. CEREBRAL PARENCHYMA: Expected interval evolution of previously noted ischemic changes in the posterio r left MCA territory MIDLINE SHIFT OR HERNIATION: None. CEREBELLUM / BRAINSTEM: Punctate areas of encephalomalacia in the bilateral cerebellum, left greater than right are again noted. ORBITS: Normal as visualized. SOFT TISSUES of HEAD: No significant abnormality. CALVARIUM: No significant abnormality. PARANASAL SINUSES / MASTOID AIR CELLS: Normal as visualized. ADDITIONAL FINDINGS: Calcifications of the vertebrobasilar system again noted. IMPRESSION: 1. Expected interval evolution of previously noted ischemic changes in the posterior left MCA territo ry. No definitive hemorrhagic transformation. 2. Areas of encephalomalacia in the bilateral cerebellum are unchanged. 3. Additional findings are unchanged from prior exam. Signer Name: Ean Rodrigez MD Signed: 04/13/2020 3:20 PM Workstation Name: [id number]
[2020-04-13] MEDS: FUROSEMIDE 40 MG/4 ML INJ IV SCH (18:34)
--- NOTE | 2020-04-13 22:05 | Progress Note ---
Assessment and Plan Echo 03/20/2020 reviewed - EF 30-35%; akinetic mid inferolateral, mid inferior, apical lateral, and apical inferior wall segments. Repeat ECG. Amiodarone drip d/c'd in the setting of bradycardia. Wean pressors as tolerated. Cont other present mgmt. Prognosis remains guarded. Pt seen in conjunction with Dr. MATILDA Jimenes, who agrees with the assessment and plan of care. - Patient Problems (1) Acute respiratory failure with hypoxia Current Visit: Yes Status: Acute (2) Cardiopulmonary arrest Current Visit: Yes Status: Acute (3) NSVT (nonsustained ventricular tachycardia) Current Visit: Yes Status: Acute (4) Arterial occlusion, lower extremity Current Visit: Yes Status: Acute (5) Cardiomyopathy Current Visit: Yes Status: Acute (6) DYLON (acute kidney injury) Current Visit: Yes Status: Acute (7) Hypernatremia Current Visit: Yes Status: Acute (8) Hyperkalemia Current Visit: Yes Status: Acute (9) Anemia Current Visit: Yes Status: Acute (10) Elevated LFTs Current Visit: Yes Status: Acute (11) NSTEMI (non-ST elevated myocardial infarction) Current Visit: Yes Status: Acute Plan to address problem: Type 2 (12) CAD (coronary artery disease) Current Visit: Yes Status: Chronic (13) History of coronary artery bypass graft Current Visit: Yes Status: Chronic (14) HTN (hypertension) Current Visit: Yes Status: Chronic Qualifiers: Hypertension type: essential hypertension Qualified Code(s): I10 - Essential (primary) hypertension (15) PAD (peripheral artery disease) Current Visit: Yes Status: Chronic (16) S/P BKA (below knee amputation) Current Visit: Yes Status: Chronic (17) Tobacco abuse Current Visit: Yes Status: Acute (18) History of CVA (cerebrovascular accident) Current Visit: Yes Status: Chronic Subjective Date of service: 04/13/20 Principal diagnosis: CVA Interval history: Pt remains intubated/sedated. Events reviewed. Tele reviewed - NSR 80s w/no acute events noted. No further evidence of VT. Objective Last Vital Signs Temp 97.8 F 04/13/20 19:58 Pulse 83 04/13/20 20:35 Resp 20 04/13/20 18:30 BP 97/65 04/13/20 20:35 Pulse Ox 97 04/13/20 20:35 - Physical Examination General: Other (intubated) HEENT: Positive: Normocephaly Neck: Positive: neck supple, trachea midline. Negative: JVD/HJR Cardiac: Positive: Reg Rate and Rhythm, S1/S2 Lungs: Positive: Decreased Breath Sounds Neuro: Positive: Other (intubated, unresponsive) Abdomen: Positive: Soft, Active Bowel Sounds Skin: Negative: Rash Musculoskeletal: other (s/p left BKA) Extremities: Present: upper extr. pulses, lower extr. pulses, Other (LLE pain, numbness, pale). Absent: edema - Labs and Meds Cardiac Enzymes 04/13/20 Range/Units 04:35 AST 241 H (5-40) units/L Coagulation 04/13/20 Range/Units 04:35 PT 27.8 H (12.2-14.9) Sec. INR 2.55 H (0.87-1.13) CBC 04/13/20 Range/Units 04:35 WBC 13.3 H (4.5-11.0) K/mm3 RBC 2.68 L (3.65-5.03) M/mm3 Hgb 8.0 L (11.8-15.2) gm/dl Hct 25.1 L (35.5-45.6) % Plt Count 167 (140-440) K/mm3 Lymph # 1.2 (1.2-5.4) K/mm3 [place] # 0.9 H (0.0-0.8) K/mm3 Eos # 0.0 (0.0-0.4) K/mm3 Baso # 0.0 (0.0-0.1) K/mm3 Comprehensive Metabolic Panel 04/13/20 Range/Units 04:35 Sodium 149 H (137-145) mmol/L Potassium 5.2 H (3.6-5.0) mmol/L Chloride 109.1 H (98-107) mmol/L Carbon Dioxide 20 L (22-30) mmol/L BUN 136 H (9-20) mg/dL Creatinine 3.5 H (0.8-1.3) mg/dL Glucose 271 H (75-100) mg/dL Calcium 8.3 L (8.4-10.2) mg/dL AST 241 H (5-40) units/L ALT 153 H (7-56) units/L Alkaline Phosphatase 294 H (35-129) units/L Total Protein 6.0 L (6.3-8.2) g/dL Albumin 2.3 L (3.9-5) g/dL - Imaging and Cardiology EKG: report reviewed, image reviewed Echo: report reviewed (03/20/2020 - EF 30-35%; akinetic mid inferolateral, mid inferior, apical lateral, and apical inferior wall segments), other (12/2014 - EF 55-60%, no significant valvular abnormalities) - Telemetry EKG Rhythm: Sinus Rhythm - EKG Sinus rhythms and dysrhythmias: sinus rhythm Repolarization changes or abnormalities: nonspecific abnormality, ST segment, and/or T wave - Allied health notes Allied health notes reviewed: nursing
[2020-04-14] MEDS: INSULIN LISPRO 100 UNIT/ML VIAL 3 mL SUB-Q SCH ×4 (00:36→17:54)
[2020-04-14 05:25] LABS: ABG Base Excess -3.6 mmol/L (-2.0-3.0); ABG HCO3 21.1 mmol/L (20.0-26.0); ABG Methemoglobin 0.6 % (0.0-1.5); ABG PCO2 36.2 mm Hg; ABG PH 7.384 pH Units (7.350-7.450); ABG PO2 88.3 mm Hg (80.0-90.0)
[2020-04-14] MEDS: FUROSEMIDE 40 MG/4 ML INJ IV SCH ×2 (06:16→07:13)
[2020-04-14 07:46] LABS: Hematocrit 25.3 % (35.5-45.6); Hemoglobin 7.8 gm/dl (11.8-15.2)
[2020-04-14] MEDS: ARFORMOTEROL 15 MCG/2 ML NEBU IH SCH ×2 (07:54→21:00)
[2020-04-14] MEDS: BUDESONIDE 0.5 MG/2 ML NEBU IH SCH ×2 (07:54→21:00)
[2020-04-14 07:57] LABS: Albumin 2.1 g/dL (3.9-5); Calcium 7.7 mg/dL (8.4-10.2)
[2020-04-14 07:59] LABS: INR 2.15 (0.87-1.13)
--- NOTE | 2020-04-14 09:09 | Progress Note ---
Assessment and Plan Cardiopulmonary arrest with ROSC, orally intubated on MVS; Severe sepsis with septic shock Acute limb ischemia S/P revascularization surgery s/p Left BKA Obstructive sleep apnea. History of chronic obstructive pulmonary disease. Diabetes. History of coronary artery disease. Non-ST elevation myocardial infarction. Acute coronary syndrome. History of cerebrovascular accident. Acute renal failure, vasomotor nephropathy/ATN -Wean vasopressor support for MAP >65 - continue to hold full anticoagulation re: risk of hemorrhagic transformation of acute stroke - Daily SAT and SBT assessment as tolerated - continue to wean supplemental oxygen for target O2 sat's > 90% - VAP bundle addressed - continue lung protective strategies - continue bronchodilators with pulmonary hygiene per RT - wean per pulmonary driven protocols otherwise - sedation prn for target RASS 0 to -1 -Antibiotics, de-escalate as clinically indicated - continue wound care per WCN / RN - accuchecks with glycemic control per SSI (While critically ill target blood glucose of 140-180 mg/dL; avoid hypoglycemia) - wean supplemental oxygen for target O2 sat's > 90% acutely - prn bronchodilators with pulmonary hygiene per RT - avoid benzodiazepines, reduce the possibility of delirium - Maintenance of sleep-wake cycle, avoid delirium - aspiration precautions - mobility protocol, off loading for pressure ulcer prevention - Monitor hemodynamics closely CONDITION: CRITICAL PROGNOSIS: GUARDED CODE STATUS: FULL CODE The high probability of a clinically significant, sudden or life-threatening deterioration of the [respiratory, cardiovascular & neurologic] system(s) required my full and direct attention, intervention and personal management. The aggregate critical care time was [35] minutes without overlap. Time includes spent on; [x] Data Review and interpretation [x] Patient assessment and monitoring of vital signs [x] Documentation [x] Medication orders and management Subjective Date of service: 04/14/20 Principal diagnosis: Anoxic brain injury, stroke Interval history: Patient is seen today for: Cardiopulmonary arrest with ROSC, orally intubated on MVS; Acute limb ischemia S/P revascularization surgery; STARR; COPD; Acute hypoxemic respiratory failure; DM II; NSTEMI; H/O CVA Seen and examined at bedside; 24hour events reviewed; nursing and respiratory care staff consulted; no adverse overnight events reported to me; resting peacefully in bed; decompensated during MRI a few days ago and s/p CODE BLUE; now on MVS; no emesis or overt aspiration; MRI documented acute/subacute infarct without hemorrhagic transformation Remains on Norepoinephrine at 8mcg, Tyson catheter and PICC line in place Episodes of desaturations requiring increase in FIO2 to 40% AC-VC 20/450/25% +6 ABG 7.38/36/88/21 Objective Vital Signs - 12hr 04/13/20 04/13/20 04/13/20 21:11 21:21 21:30 Temperature Pulse Rate 87 88 85 Pulse Rate [ Anterior Bilateral Throughout] Pulse Rate [ Apical] Respiratory 20 21 20 Rate Respiratory Rate [Anterior Bilateral Throughout] Blood Pressure 94/57 87/58 91/55 O2 Sat by Pulse 96 96 94 Oximetry 04/13/20 04/13/20 04/13/20 21:41 21:51 21:56 Temperature Pulse Rate 85 85 84 Pulse Rate [ Anterior Bilateral Throughout] Pulse Rate [ Apical] Respiratory 20 21 20 Rate Respiratory Rate [Anterior Bilateral Throughout] Blood Pressure 91/55 89/54 86/47 O2 Sat by Pulse 93 94 95 Oximetry 04/13/20 04/13/20 04/13/20 22:00 22:03 22:11 Temperature Pulse Rate 84 84 85 Pulse Rate [ Anterior Bilateral Throughout] Pulse Rate [ Apical] Respiratory 16 19 20 Rate Respiratory Rate [Anterior Bilateral Throughout] Blood Pressure 101/66 101/66 101/66 O2 Sat by Pulse 93 95 95 Oximetry 04/13/20 04/13/20 04/13/20 22:21 22:30 22:41 Temperature Pulse Rate 84 85 74 Pulse Rate [ Anterior Bilateral Throughout] Pulse Rate [ Apical] Respiratory 19 20 24 Rate Respiratory Rate [Anterior Bilateral Throughout] Blood Pressure 103/68 106/66 106/66 O2 Sat by Pulse 96 98 99 Oximetry 04/13/20 04/13/20 04/13/20 22:51 23:00 23:11 Temperature Pulse Rate 74 85 87 Pulse Rate [ Anterior Bilateral Throughout] Pulse Rate [ Apical] Respiratory 18 19 19 Rate Respiratory Rate [Anterior Bilateral Throughout] Blood Pressure 93/56 101/64 93/56 O2 Sat by Pulse 96 96 96 Oximetry 04/13/20 04/13/20 04/13/20 23:21 23:30 23:41 Temperature 98.9 F Pulse Rate 86 84 86 Pulse Rate [ Anterior Bilateral Throughout] Pulse Rate [ Apical] Respiratory 21 20 19 Rate Respiratory Rate [Anterior Bilateral Throughout] Blood Pressure 105/66 100/64 100/64 O2 Sat by Pulse 97 96 95 Oximetry 04/13/20 04/14/20 04/14/20 23:51 00:00 00:02 Temperature Pulse Rate 86 87 88 Pulse Rate [ Anterior Bilateral Throughout] Pulse Rate [ 88 Apical] Respiratory 17 19 Rate Respiratory Rate [Anterior Bilateral Throughout] Blood Pressure 103/68 94/64 94/64 O2 Sat by Pulse 95 95 95 Oximetry 04/14/20 04/14/20 04/14/20 00:11 00:21 00:30 Temperature Pulse Rate 88 86 87 Pulse Rate [ Anterior Bilateral Throughout] Pulse Rate [ Apical] Respiratory 21 21 20 Rate Respiratory Rate [Anterior Bilateral Throughout] Blood Pressure 94/64 101/57 105/64 O2 Sat by Pulse 97 97 97 Oximetry 04/14/20 04/14/20 04/14/20 00:41 00:51 01:00 Temperature Pulse Rate 88 88 87 Pulse Rate [ Anterior Bilateral Throughout] Pulse Rate [ Apical] Respiratory 20 19 20 Rate Respiratory Rate [Anterior Bilateral Throughout] Blood Pressure 94/64 99/62 100/60 O2 Sat by Pulse 96 96 97 Oximetry 04/14/20 04/14/20 04/14/20 01:11 01:21 01:30 Temperature Pulse Rate 87 90 91 H Pulse Rate [ Anterior Bilateral Throughout] Pulse Rate [ Apical] Respiratory 11 L 20 19 Rate Respiratory Rate [Anterior Bilateral Throughout] Blood Pressure 100/60 96/63 110/68 O2 Sat by Pulse 94 95 95 Oximetry 04/14/20 04/14/20 04/14/20 01:41 01:51 02:00 Temperature Pulse Rate 90 88 88 Pulse Rate [ Anterior Bilateral Throughout] Pulse Rate [ Apical] Respiratory 16 20 18 Rate Respiratory Rate [Anterior Bilateral Throughout] Blood Pressure 110/68 103/60 101/56 O2 Sat by Pulse 95 94 96 Oximetry 04/14/20 04/14/20 04/14/20 02:11 02:21 02:30 Temperature Pulse Rate 86 87 88 Pulse Rate [ Anterior Bilateral Throughout] Pulse Rate [ Apical] Respiratory 15 22 26 H Rate Respiratory Rate [Anterior Bilateral Throughout] Blood Pressure 96/63 106/65 96/60 O2 Sat by Pulse 94 95 95 Oximetry 04/14/20 04/14/20 04/14/20 02:41 02:51 03:00 Temperature Pulse Rate 90 92 H 90 Pulse Rate [ Anterior Bilateral Throughout] Pulse Rate [ Apical] Respiratory 14 19 17 Rate Respiratory Rate [Anterior Bilateral Throughout] Blood Pressure 103/60 106/65 101/65 O2 Sat by Pulse 96 97 96 Oximetry 04/14/20 04/14/20 04/14/20 03:11 03:21 03:24 Temperature 98.4 F Pulse Rate 89 90 Pulse Rate [ Anterior Bilateral Throughout] Pulse Rate [ Apical] Respiratory 19 20 Rate Respiratory Rate [Anterior Bilateral Throughout] Blood Pressure 101/65 100/57 O2 Sat by Pulse 97 97 Oximetry 04/14/20 04/14/20 04/14/20 03:30 03:41 03:51 Temperature Pulse Rate 89 91 H 91 H Pulse Rate [ Anterior Bilateral Throughout] Pulse Rate [ Apical] Respiratory 20 19 17 Rate Respiratory Rate [Anterior Bilateral Throughout] Blood Pressure 102/61 102/61 107/65 O2 Sat by Pulse 97 97 91 Oximetry 04/14/20 04/14/20 04/14/20 04:00 04:11 04:21 Temperature Pulse Rate 91 H 92 H 93 H Pulse Rate [ Anterior Bilateral Throughout] Pulse Rate [ 95 H Apical] Respiratory 17 20 20 Rate Respiratory Rate [Anterior Bilateral Throughout] Blood Pressure 103/65 107/65 108/65 O2 Sat by Pulse 94 97 88 Oximetry 04/14/20 04/14/20 04/14/20 04:30 04:31 04:41 Temperature Pulse Rate 94 H 93 H 92 H Pulse Rate [ Anterior Bilateral Throughout] Pulse Rate [ Apical] Respiratory 22 20 Rate Respiratory Rate [Anterior Bilateral Throughout] Blood Pressure 106/68 106/68 106/68 O2 Sat by Pulse 95 95 96 Oximetry 04/14/20 04/14/20 04/14/20 04:51 05:00 05:11 Temperature Pulse Rate 94 H 96 H 91 H Pulse Rate [ Anterior Bilateral Throughout] Pulse Rate [ Apical] Respiratory 19 13 20 Rate Respiratory Rate [Anterior Bilateral Throughout] Blood Pressure 105/66 104/68 104/68 O2 Sat by Pulse 96 97 94 Oximetry 04/14/20 04/14/20 04/14/20 05:21 05:30 05:41 Temperature Pulse Rate 92 H 92 H 96 H Pulse Rate [ Anterior Bilateral Throughout] Pulse Rate [ Apical] Respiratory 19 21 22 Rate Respiratory Rate [Anterior Bilateral Throughout] Blood Pressure 101/63 99/63 99/63 O2 Sat by Pulse 96 96 98 Oximetry 04/14/20 04/14/20 04/14/20 05:51 06:00 06:11 Temperature Pulse Rate 89 93 H 93 H Pulse Rate [ Anterior Bilateral Throughout] Pulse Rate [ Apical] Respiratory 17 19 23 Rate Respiratory Rate [Anterior Bilateral Throughout] Blood Pressure 108/72 100/65 108/72 O2 Sat by Pulse 96 96 Oximetry 04/14/20 04/14/20 04/14/20 06:21 06:30 06:41 Temperature Pulse Rate 92 H 95 H 92 H Pulse Rate [ Anterior Bilateral Throughout] Pulse Rate [ Apical] Respiratory 19 22 20 Rate Respiratory Rate [Anterior Bilateral Throughout] Blood Pressure 103/64 106/66 106/66 O2 Sat by Pulse 95 97 97 Oximetry 04/14/20 04/14/20 04/14/20 06:51 07:00 07:11 Temperature Pulse Rate 95 H 94 H 92 H Pulse Rate [ Anterior Bilateral Throughout] Pulse Rate [ Apical] Respiratory 21 20 19 Rate Respiratory Rate [Anterior Bilateral Throughout] Blood Pressure 110/68 106/68 106/68 O2 Sat by Pulse 98 98 97 Oximetry 04/14/20 04/14/20 04/14/20 07:21 07:30 07:49 Temperature Pulse Rate 96 H 94 H 94 H Pulse Rate [ Anterior Bilateral Throughout] Pulse Rate [ Apical] Respiratory 22 14 Rate Respiratory Rate [Anterior Bilateral Throughout] Blood Pressure 108/73 97/68 95/65 O2 Sat by Pulse 97 97 96 Oximetry 04/14/20 07:54 Temperature Pulse Rate Pulse Rate [ 94 H Anterior Bilateral Throughout] Pulse Rate [ Apical] Respiratory Rate Respiratory 25 H Rate [Anterior Bilateral Throughout] Blood Pressure O2 Sat by Pulse Oximetry Constitutional: appears uncomfortable, other (middle aged obese male intubated on MVS and without ventilator dyssynchrony) Eyes: non-icteric ENT: oropharynx moist, other (ETT 23 cm CARSON) Neck: supple, no lymphadenopathy, no JVD Effort: mildly labored Ascultation: Left: diminished breath sounds (base), Bilateral: clear, rhonchi, other (+ referred upper airway sounds) Percussion: Bilateral: not dull Cardiovascular: irregular rhythm Gastrointestinal: normoactive bowel sounds, soft, non-tender, non-distended (protuberant) Integumentary: rash Extremities: cool, edema (right lower extremity), other (left BKA with clean dressing) Neurologic: pupils equal and round, unable to assess Psychiatric: other (encephalopathic) CBC and BMP: 04/16/20 12:26 04/17/20 04:00 ABG, PT/INR, D-dimer: ABG ABG pH 7.384 pH Units (7.350-7.450) 04/14/20 04:38 ABG pCO2 36.2 mm Hg 04/14/20 04:38 ABG pO2 88.3 mm Hg (80.0-90.0) 04/14/20 04:38 ABG O2 Saturation 97.0 % (95.0-99.0) 04/14/20 04:38 PT/INR, D-dimer PT 24.3 Sec. (12.2-14.9) H 04/14/20 07:00 INR 2.15 (0.87-1.13) H 04/14/20 07:00 Abnormal lab findings: Abnormal Labs 03/18/20 03/18/20 03/18/20 18:28 18:28 20:56 WBC 12.3 H RBC Hgb Hct MCV MCHC RDW Lymph % (Auto) 11.0 L [place] % (Auto) 9.8 H Lymph # [place] # 1.2 H Seg Neutrophils % 78.4 H Seg Neuts % (Manual) Lymphocytes % (Manual) Nucleated RBC % Seg Neutrophils # 9.6 H Seg Neutrophils # Man Lymphocytes # (Manual) Monocytes # (Manual) Eosinophils # (Manual) PT INR Heparin Anti-Xa Level ABG pH ABG pO2 ABG HCO3 ABG O2 Saturation ABG Base Excess ABG Hemoglobin Oxyhemoglobin Sodium 132 L Potassium Chloride 91.9 L Carbon Dioxide 20 L BUN Creatinine 1.4 H Glucose 406 H POC Glucose Hemoglobin A1c Calcium Phosphorus Magnesium Ferritin AST ALT Alkaline Phosphatase Total Creatine Kinase 2727 H 2492 H CK-MB (CK-2) 135.9 H 107.2 H CK-MB (CK-2) Rel Index 4.3 H Troponin T 5.110 H* 3.960 H* D Total Protein Albumin Triglycerides 188 H LDL Cholesterol Direct 141 H HDL Cholesterol Urine WBC (Auto) Urine Creatinine 03/18/20 03/19/20 03/19/20 22:21 01:57 08:08 WBC RBC Hgb Hct MCV MCHC RDW Lymph % (Auto) [place] % (Auto) Lymph # [place] # Seg Neutrophils % Seg Neuts % (Manual) Lymphocytes % (Manual) Nucleated RBC % Seg Neutrophils # Seg Neutrophils # Man Lymphocytes # (Manual) Monocytes # (Manual) Eosinophils # (Manual) PT INR Heparin Anti-Xa Level ABG pH ABG pO2 ABG HCO3 ABG O2 Saturation ABG Base Excess ABG Hemoglobin Oxyhemoglobin Sodium Potassium Chloride Carbon Dioxide BUN Creatinine Glucose POC Glucose 317 H Hemoglobin A1c 11.0 H Calcium Phosphorus Magnesium Ferritin AST ALT Alkaline Phosphatase Total Creatine Kinase 7255 H CK-MB (CK-2) 79.3 H CK-MB (CK-2) Rel Index Troponin T 5.540 H* D Total Protein Albumin Triglycerides LDL Cholesterol Direct HDL Cholesterol Urine WBC (Auto) Urine Creatinine 03/19/20 03/19/20 03/19/20 08:08 08:08 08:08 WBC 13.3 H RBC Hgb Hct MCV MCHC RDW Lymph % (Auto) 10.7 L [place] % (Auto) 8.5 H Lymph # [place] # 1.1 H Seg Neutrophils % 80.0 H Seg Neuts % (Manual) Lymphocytes % (Manual) Nucleated RBC % Seg Neutrophils # 10.6 H Seg Neutrophils # Man Lymphocytes # (Manual) Monocytes # (Manual) Eosinophils # (Manual) PT INR Heparin Anti-Xa Level 0.10 L ABG pH ABG pO2 ABG HCO3 ABG O2 Saturation ABG Base Excess ABG Hemoglobin Oxyhemoglobin Sodium 133 L Potassium 5.1 H Chloride Carbon Dioxide 17 L BUN 23 H Creatinine Glucose 313 H POC Glucose Hemoglobin A1c Calcium Phosphorus Magnesium Ferritin AST ALT Alkaline Phosphatase Total Creatine Kinase CK-MB (CK-2) CK-MB (CK-2) Rel Index Troponin T Total Protein Albumin Triglycerides LDL Cholesterol Direct HDL Cholesterol Urine WBC (Auto) Urine Creatinine 03/19/20 03/19/20 03/19/20 15:40 18:23 21:32 WBC RBC Hgb Hct MCV MCHC RDW Lymph % (Auto) [place] % (Auto) Lymph # [place] # Seg Neutrophils % Seg Neuts % (Manual) Lymphocytes % (Manual) Nucleated RBC % Seg Neutrophils # Seg Neutrophils # Man Lymphocytes # (Manual) Monocytes # (Manual) Eosinophils # (Manual) PT INR Heparin Anti-Xa Level < 0.10 L ABG pH ABG pO2 ABG HCO3 18.3 L ABG O2 Saturation ABG Base Excess -5.4 L ABG Hemoglobin 12.2 L Oxyhemoglobin 94.6 L Sodium Potassium Chloride Carbon Dioxide BUN Creatinine Glucose POC Glucose 348 H Hemoglobin A1c Calcium Phosphorus Magnesium Ferritin AST ALT Alkaline Phosphatase Total Creatine Kinase CK-MB (CK-2) CK-MB (CK-2) Rel Index Troponin T Total Protein Albumin Triglycerides LDL Cholesterol Direct HDL Cholesterol Urine WBC (Auto) Urine Creatinine 03/20/20 03/20/20 03/20/20 04:35 05:12 05:12 WBC 11.1 H RBC 3.63 L Hgb 11.0 L Hct 32.7 L D MCV MCHC RDW Lymph % (Auto) [place] % (Auto) 8.1 H Lymph # [place] # 0.9 H Seg Neutrophils % 75.8 H Seg Neuts % (Manual) Lymphocytes % (Manual) Nucleated RBC % Seg Neutrophils # 8.4 H Seg Neutrophils # Man Lymphocytes # (Manual) Monocytes # (Manual) Eosinophils # (Manual) PT INR Heparin Anti-Xa Level 0.28 L ABG pH ABG pO2 68.3 L ABG HCO3 ABG O2 Saturation 94.3 L ABG Base Excess ABG Hemoglobin 7.1 L Oxyhemoglobin 92.3 L Sodium Potassium Chloride Carbon Dioxide BUN Creatinine Glucose POC Glucose Hemoglobin A1c Calcium Phosphorus Magnesium Ferritin AST ALT Alkaline Phosphatase Total Creatine Kinase CK-MB (CK-2) CK-MB (CK-2) Rel Index Troponin T Total Protein Albumin Triglycerides LDL Cholesterol Direct HDL Cholesterol Urine WBC (Auto) Urine Creatinine 03/20/20 03/20/20 03/20/20 05:12 07:49 12:15 WBC RBC Hgb Hct MCV MCHC RDW Lymph % (Auto) [place] % (Auto) Lymph # [place] # Seg Neutrophils % Seg Neuts % (Manual) Lymphocytes % (Manual) Nucleated RBC % Seg Neutrophils # Seg Neutrophils # Man Lymphocytes # (Manual) Monocytes # (Manual) Eosinophils # (Manual) PT INR Heparin Anti-Xa Level ABG pH ABG pO2 ABG HCO3 ABG O2 Saturation ABG Base Excess ABG Hemoglobin Oxyhemoglobin Sodium 134 L Potassium Chloride Carbon Dioxide 21 L BUN 23 H Creatinine Glucose 275 H POC Glucose 294 H 357 H Hemoglobin A1c Calcium Phosphorus Magnesium Ferritin AST ALT Alkaline Phosphatase Total Creatine Kinase CK-MB (CK-2) CK-MB (CK-2) Rel Index Troponin T 3.200 H* D Total Protein Albumin Triglycerides LDL Cholesterol Direct HDL Cholesterol Urine WBC (Auto) Urine Creatinine 03/20/20 03/20/20 03/21/20 17:16 22:08 04:44 WBC RBC Hgb Hct MCV MCHC RDW Lymph % (Auto) [place] % (Auto) Lymph # [place] # Seg Neutrophils % Seg Neuts % (Manual) Lymphocytes % (Manual) Nucleated RBC % Seg Neutrophils # Seg Neutrophils # Man Lymphocytes # (Manual) Monocytes # (Manual) Eosinophils # (Manual) PT INR Heparin Anti-Xa Level ABG pH ABG pO2 ABG HCO3 ABG O2 Saturation ABG Base Excess ABG Hemoglobin Oxyhemoglobin Sodium 136 L Potassium Chloride Carbon Dioxide 18 L BUN 26 H Creatinine Glucose 266 H POC Glucose 327 H 292 H Hemoglobin A1c Calcium 8.1 L Phosphorus Magnesium Ferritin AST ALT Alkaline Phosphatase Total Creatine Kinase CK-MB (CK-2) CK-MB (CK-2) Rel Index Troponin T Total Protein Albumin Triglycerides LDL Cholesterol Direct HDL Cholesterol Urine WBC (Auto) Urine Creatinine 03/21/20 03/21/20 03/21/20 07:50 12:25 15:53 WBC RBC Hgb Hct MCV MCHC RDW Lymph % (Auto) [place] % (Auto) Lymph # [place] # Seg Neutrophils % Seg Neuts % (Manual) Lymphocytes % (Manual) Nucleated RBC % Seg Neutrophils # Seg Neutrophils # Man Lymphocytes # (Manual) Monocytes # (Manual) Eosinophils # (Manual) PT INR Heparin Anti-Xa Level ABG pH ABG pO2 ABG HCO3 ABG O2 Saturation ABG Base Excess ABG Hemoglobin Oxyhemoglobin Sodium Potassium Chloride Carbon Dioxide BUN Creatinine Glucose POC Glucose 271 H 314 H 436 H Hemoglobin A1c Calcium Phosphorus Magnesium Ferritin AST ALT Alkaline Phosphatase Total Creatine Kinase CK-MB (CK-2) CK-MB (CK-2) Rel Index Troponin T Total Protein Albumin Triglycerides LDL Cholesterol Direct HDL Cholesterol Urine WBC (Auto) Urine Creatinine 03/21/20 03/21/20 03/22/20 17:44 21:55 04:33 WBC RBC Hgb 10.0 L Hct 29.4 L MCV MCHC RDW Lymph % (Auto) [place] % (Auto) Lymph # [place] # Seg Neutrophils % Seg Neuts % (Manual) Lymphocytes % (Manual) Nucleated RBC % Seg Neutrophils # Seg Neutrophils # Man Lymphocytes # (Manual) Monocytes # (Manual) Eosinophils # (Manual) PT INR Heparin Anti-Xa Level ABG pH ABG pO2 ABG HCO3 ABG O2 Saturation ABG Base Excess ABG Hemoglobin Oxyhemoglobin Sodium Potassium Chloride Carbon Dioxide BUN Creatinine Glucose POC Glucose 362 H 329 H Hemoglobin A1c Calcium Phosphorus Magnesium Ferritin AST ALT Alkaline Phosphatase Total Creatine Kinase CK-MB (CK-2) CK-MB (CK-2) Rel Index Troponin T Total Protein Albumin Triglycerides LDL Cholesterol Direct HDL Cholesterol Urine WBC (Auto) Urine Creatinine 03/22/20 03/22/20 03/22/20 08:57 14:12 19:57 WBC RBC Hgb Hct MCV MCHC RDW Lymph % (Auto) [place] % (Auto) Lymph # [place] # Seg Neutrophils % Seg Neuts % (Manual) Lymphocytes % (Manual) Nucleated RBC % Seg Neutrophils # Seg Neutrophils # Man Lymphocytes # (Manual) Monocytes # (Manual) Eosinophils # (Manual) PT INR Heparin Anti-Xa Level ABG pH ABG pO2 ABG HCO3 ABG O2 Saturation ABG Base Excess ABG Hemoglobin Oxyhemoglobin Sodium Potassium Chloride Carbon Dioxide BUN Creatinine Glucose POC Glucose 284 H 319 H 356 H Hemoglobin A1c Calcium Phosphorus Magnesium Ferritin AST ALT Alkaline Phosphatase Total Creatine Kinase CK-MB (CK-2) CK-MB (CK-2) Rel Index Troponin T Total Protein Albumin Triglycerides LDL Cholesterol Direct HDL Cholesterol Urine WBC (Auto) Urine Creatinine 03/22/20 03/23/20 03/23/20 21:44 08:18 12:46 WBC RBC Hgb Hct MCV MCHC RDW Lymph % (Auto) [place] % (Auto) Lymph # [place] # Seg Neutrophils % Seg Neuts % (Manual) Lymphocytes % (Manual) Nucleated RBC % Seg Neutrophils # Seg Neutrophils # Man Lymphocytes # (Manual) Monocytes # (Manual) Eosinophils # (Manual) PT INR Heparin Anti-Xa Level ABG pH ABG pO2 ABG HCO3 ABG O2 Saturation ABG Base Excess ABG Hemoglobin Oxyhemoglobin Sodium Potassium Chloride Carbon Dioxide BUN Creatinine Glucose POC Glucose 336 H 215 H 262 H Hemoglobin A1c Calcium Phosphorus Magnesium Ferritin AST ALT Alkaline Phosphatase Total Creatine Kinase CK-MB (CK-2) CK-MB (CK-2) Rel Index Troponin T Total Protein Albumin Triglycerides LDL Cholesterol Direct HDL Cholesterol Urine WBC (Auto) Urine Creatinine 03/23/20 03/23/20 03/24/20 15:56 22:05 02:35 WBC RBC Hgb 9.0 L Hct 25.8 L MCV MCHC RDW Lymph % (Auto) [place] % (Auto) Lymph # [place] # Seg Neutrophils % Seg Neuts % (Manual) Lymphocytes % (Manual) Nucleated RBC % Seg Neutrophils # Seg Neutrophils # Man Lymphocytes # (Manual) Monocytes # (Manual) Eosinophils # (Manual) PT INR Heparin Anti-Xa Level ABG pH ABG pO2 ABG HCO3 ABG O2 Saturation ABG Base Excess ABG Hemoglobin Oxyhemoglobin Sodium Potassium Chloride Carbon Dioxide BUN Creatinine Glucose POC Glucose 246 H 322 H Hemoglobin A1c Calcium Phosphorus Magnesium Ferritin AST ALT Alkaline Phosphatase Total Creatine Kinase CK-MB (CK-2) CK-MB (CK-2) Rel Index Troponin T Total Protein Albumin Triglycerides LDL Cholesterol Direct HDL Cholesterol Urine WBC (Auto) Urine Creatinine 03/24/20 03/24/20 03/24/20 07:38 11:45 16:02 WBC RBC Hgb Hct MCV MCHC RDW Lymph % (Auto) [place] % (Auto) Lymph # [place] # Seg Neutrophils % Seg Neuts % (Manual) Lymphocytes % (Manual) Nucleated RBC % Seg Neutrophils # Seg Neutrophils # Man Lymphocytes # (Manual) Monocytes # (Manual) Eosinophils # (Manual) PT INR Heparin Anti-Xa Level ABG pH ABG pO2 ABG HCO3 ABG O2 Saturation ABG Base Excess ABG Hemoglobin Oxyhemoglobin Sodium Potassium Chloride Carbon Dioxide BUN Creatinine Glucose POC Glucose 289 H 257 H 150 H Hemoglobin A1c Calcium Phosphorus Magnesium Ferritin AST ALT Alkaline Phosphatase Total Creatine Kinase CK-MB (CK-2) CK-MB (CK-2) Rel Index Troponin T Total Protein Albumin Triglycerides LDL Cholesterol Direct HDL Cholesterol Urine WBC (Auto) Urine Creatinine 03/24/20 03/25/20 03/25/20 21:24 04:06 07:39 WBC RBC Hgb Hct MCV MCHC RDW Lymph % (Auto) [place] % (Auto) Lymph # [place] # Seg Neutrophils % Seg Neuts % (Manual) Lymphocytes % (Manual) Nucleated RBC % Seg Neutrophils # Seg Neutrophils # Man Lymphocytes # (Manual) Monocytes # (Manual) Eosinophils # (Manual) PT INR Heparin Anti-Xa Level 0.10 L ABG pH ABG pO2 ABG HCO3 ABG O2 Saturation ABG Base Excess ABG Hemoglobin Oxyhemoglobin Sodium Potassium Chloride Carbon Dioxide BUN Creatinine Glucose POC Glucose 228 H 332 H Hemoglobin A1c Calcium Phosphorus Magnesium Ferritin AST ALT Alkaline Phosphatase Total Creatine Kinase CK-MB (CK-2) CK-MB (CK-2) Rel Index Troponin T Total Protein Albumin Triglycerides LDL Cholesterol Direct HDL Cholesterol Urine WBC (Auto) Urine Creatinine 03/25/20 03/25/20 03/25/20 08:13 09:30 11:59 WBC 13.1 H RBC 2.82 L Hgb 8.5 L Hct 26.1 L MCV MCHC RDW Lymph % (Auto) [place] % (Auto) Lymph # [place] # Seg Neutrophils % Seg Neuts % (Manual) Lymphocytes % (Manual) Nucleated RBC % Seg Neutrophils # Seg Neutrophils # Man Lymphocytes # (Manual) Monocytes # (Manual) Eosinophils # (Manual) PT INR Heparin Anti-Xa Level ABG pH ABG pO2 ABG HCO3 ABG O2 Saturation ABG Base Excess ABG Hemoglobin Oxyhemoglobin Sodium 131 L Potassium 5.3 H Chloride Carbon Dioxide 20 L BUN 39 H Creatinine 1.4 H Glucose 313 H POC Glucose 273 H Hemoglobin A1c Calcium 8.1 L Phosphorus Magnesium Ferritin AST ALT Alkaline Phosphatase Total Creatine Kinase CK-MB (CK-2) CK-MB (CK-2) Rel Index Troponin T Total Protein Albumin Triglycerides LDL Cholesterol Direct HDL Cholesterol Urine WBC (Auto) Urine Creatinine 03/25/20 03/25/20 03/25/20 13:54 15:58 18:21 WBC RBC Hgb Hct MCV MCHC RDW Lymph % (Auto) [place] % (Auto) Lymph # [place] # Seg Neutrophils % Seg Neuts % (Manual) Lymphocytes % (Manual) Nucleated RBC % Seg Neutrophils # Seg Neutrophils # Man Lymphocytes # (Manual) Monocytes # (Manual) Eosinophils # (Manual) PT INR Heparin Anti-Xa Level ABG pH ABG pO2 ABG HCO3 ABG O2 Saturation ABG Base Excess ABG Hemoglobin Oxyhemoglobin Sodium Potassium Chloride Carbon Dioxide BUN Creatinine Glucose POC Glucose 246 H 235 H 185 H Hemoglobin A1c Calcium Phosphorus Magnesium Ferritin AST ALT Alkaline Phosphatase Total Creatine Kinase CK-MB (CK-2) CK-MB (CK-2) Rel Index Troponin T Total Protein Albumin Triglycerides LDL Cholesterol Direct HDL Cholesterol Urine WBC (Auto) Urine Creatinine 03/25/20 03/26/20 03/26/20 20:45 05:15 06:59 WBC 17.4 H 15.6 H RBC 3.05 L 3.05 L Hgb 9.1 L 9.2 L Hct 28.2 L 27.9 L MCV MCHC RDW Lymph % (Auto) 8.9 L 8.9 L [place] % (Auto) Lymph # [place] # 1.0 H Seg Neutrophils % 84.4 H 84.8 H Seg Neuts % (Manual) Lymphocytes % (Manual) Nucleated RBC % Seg Neutrophils # 14.7 H 13.2 H Seg Neutrophils # Man Lymphocytes # (Manual) Monocytes # (Manual) Eosinophils # (Manual) PT INR Heparin Anti-Xa Level ABG pH ABG pO2 ABG HCO3 ABG O2 Saturation ABG Base Excess ABG Hemoglobin Oxyhemoglobin Sodium Potassium Chloride Carbon Dioxide BUN Creatinine Glucose POC Glucose 178 H Hemoglobin A1c Calcium Phosphorus Magnesium Ferritin AST ALT Alkaline Phosphatase Total Creatine Kinase CK-MB (CK-2) CK-MB (CK-2) Rel Index Troponin T Total Protein Albumin Triglycerides LDL Cholesterol Direct HDL Cholesterol Urine WBC (Auto) Urine Creatinine 03/26/20 03/26/20 03/26/20 06:59 07:43 11:56 WBC RBC Hgb Hct MCV MCHC RDW Lymph % (Auto) [place] % (Auto) Lymph # [place] # Seg Neutrophils % Seg Neuts % (Manual) Lymphocytes % (Manual) Nucleated RBC % Seg Neutrophils # Seg Neutrophils # Man Lymphocytes # (Manual) Monocytes # (Manual) Eosinophils # (Manual) PT INR Heparin Anti-Xa Level ABG pH ABG pO2 ABG HCO3 ABG O2 Saturation ABG Base Excess ABG Hemoglobin Oxyhemoglobin Sodium 131 L Potassium 5.8 H Chloride Carbon Dioxide 16 L BUN 42 H Creatinine 1.4 H Glucose 163 H POC Glucose 170 H 198 H Hemoglobin A1c Calcium 8.0 L Phosphorus Magnesium Ferritin AST ALT Alkaline Phosphatase Total Creatine Kinase CK-MB (CK-2) CK-MB (CK-2) Rel Index Troponin T Total Protein Albumin Triglycerides LDL Cholesterol Direct HDL Cholesterol Urine WBC (Auto) Urine Creatinine 03/26/20 03/26/20 03/26/20 13:58 16:16 21:00 WBC RBC Hgb Hct MCV MCHC RDW Lymph % (Auto) [place] % (Auto) Lymph # [place] # Seg Neutrophils % Seg Neuts % (Manual) Lymphocytes % (Manual) Nucleated RBC % Seg Neutrophils # Seg Neutrophils # Man Lymphocytes # (Manual) Monocytes # (Manual) Eosinophils # (Manual) PT INR Heparin Anti-Xa Level ABG pH ABG pO2 ABG HCO3 ABG O2 Saturation ABG Base Excess ABG Hemoglobin Oxyhemoglobin Sodium 128 L Potassium 6.0 H Chloride Carbon Dioxide 15 L BUN 45 H Creatinine 1.4 H Glucose 190 H POC Glucose 184 H 192 H Hemoglobin A1c Calcium 8.2 L Phosphorus Magnesium Ferritin AST ALT Alkaline Phosphatase Total Creatine Kinase CK-MB (CK-2) CK-MB (CK-2) Rel Index Troponin T Total Protein Albumin Triglycerides LDL Cholesterol Direct HDL Cholesterol Urine WBC (Auto) Urine Creatinine 03/27/20 03/27/20 03/27/20 08:32 11:51 14:39 WBC 22.9 H RBC 2.68 L Hgb 7.9 L Hct 24.7 L MCV MCHC RDW Lymph % (Auto) [place] % (Auto) Lymph # [place] # Seg Neutrophils % Seg Neuts % (Manual) Lymphocytes % (Manual) Nucleated RBC % Seg Neutrophils # Seg Neutrophils # Man Lymphocytes # (Manual) Monocytes # (Manual) Eosinophils # (Manual) PT INR Heparin Anti-Xa Level ABG pH ABG pO2 ABG HCO3 ABG O2 Saturation ABG Base Excess ABG Hemoglobin Oxyhemoglobin Sodium Potassium Chloride Carbon Dioxide BUN Creatinine Glucose POC Glucose 233 H 252 H Hemoglobin A1c Calcium Phosphorus Magnesium Ferritin AST ALT Alkaline Phosphatase Total Creatine Kinase CK-MB (CK-2) CK-MB (CK-2) Rel Index Troponin T Total Protein Albumin Triglycerides LDL Cholesterol Direct HDL Cholesterol Urine WBC (Auto) Urine Creatinine 03/27/20 03/27/20 03/27/20 14:39 15:19 21:35 WBC RBC Hgb Hct MCV MCHC RDW Lymph % (Auto) [place] % (Auto) Lymph # [place] # Seg Neutrophils % Seg Neuts % (Manual) Lymphocytes % (Manual) Nucleated RBC % Seg Neutrophils # Seg Neutrophils # Man Lymphocytes # (Manual) Monocytes # (Manual) Eosinophils # (Manual) PT INR Heparin Anti-Xa Level ABG pH ABG pO2 ABG HCO3 ABG O2 Saturation ABG Base Excess ABG Hemoglobin Oxyhemoglobin Sodium 133 L Potassium 5.5 H Chloride Carbon Dioxide 16 L BUN 46 H Creatinine 1.4 H Glucose 225 H POC Glucose 239 H 202 H Hemoglobin A1c Calcium 8.2 L Phosphorus Magnesium Ferritin AST ALT Alkaline Phosphatase Total Creatine Kinase CK-MB (CK-2) CK-MB (CK-2) Rel Index Troponin T Total Protein Albumin Triglycerides LDL Cholesterol Direct HDL Cholesterol Urine WBC (Auto) Urine Creatinine 03/28/20 03/28/20 03/28/20 07:39 07:39 08:36 WBC 22.4 H RBC 2.71 L Hgb 7.9 L Hct 24.5 L MCV MCHC RDW Lymph % (Auto) [place] % (Auto) Lymph # [place] # Seg Neutrophils % Seg Neuts % (Manual) 88.0 H Lymphocytes % (Manual) 5.0 L Nucleated RBC % Seg Neutrophils # Seg Neutrophils # Man 19.7 H Lymphocytes # (Manual) 1.1 L Monocytes # (Manual) 1.6 H Eosinophils # (Manual) PT INR Heparin Anti-Xa Level ABG pH ABG pO2 ABG HCO3 ABG O2 Saturation ABG Base Excess ABG Hemoglobin Oxyhemoglobin Sodium 134 L Potassium Chloride Carbon Dioxide 19 L BUN 47 H Creatinine Glucose 240 H POC Glucose 253 H Hemoglobin A1c Calcium 7.8 L Phosphorus Magnesium Ferritin AST ALT Alkaline Phosphatase Total Creatine Kinase CK-MB (CK-2) CK-MB (CK-2) Rel Index Troponin T Total Protein Albumin Triglycerides LDL Cholesterol Direct HDL Cholesterol Urine WBC (Auto) Urine Creatinine 03/28/20 03/28/20 03/28/20 11:54 17:08 21:17 WBC RBC Hgb Hct MCV MCHC RDW Lymph % (Auto) [place] % (Auto) Lymph # [place] # Seg Neutrophils % Seg Neuts % (Manual) Lymphocytes % (Manual) Nucleated RBC % Seg Neutrophils # Seg Neutrophils # Man Lymphocytes # (Manual) Monocytes # (Manual) Eosinophils # (Manual) PT INR Heparin Anti-Xa Level ABG pH ABG pO2 ABG HCO3 ABG O2 Saturation ABG Base Excess ABG Hemoglobin Oxyhemoglobin Sodium Potassium Chloride Carbon Dioxide BUN Creatinine Glucose POC Glucose 306 H 178 H 186 H Hemoglobin A1c Calcium Phosphorus Magnesium Ferritin AST ALT Alkaline Phosphatase Total Creatine Kinase CK-MB (CK-2) CK-MB (CK-2) Rel Index Troponin T Total Protein Albumin Triglycerides LDL Cholesterol Direct HDL Cholesterol Urine WBC (Auto) Urine Creatinine 03/29/20 03/29/20 03/29/20 08:32 12:04 14:19 WBC 21.5 H RBC 2.82 L Hgb 8.4 L Hct 26.1 L MCV MCHC RDW Lymph % (Auto) [place] % (Auto) Lymph # [place] # Seg Neutrophils % Seg Neuts % (Manual) 85.0 H Lymphocytes % (Manual) 11.0 L Nucleated RBC % 3.0 H Seg Neutrophils # Seg Neutrophils # Man 18.3 H Lymphocytes # (Manual) Monocytes # (Manual) Eosinophils # (Manual) 0.6 H PT INR Heparin Anti-Xa Level ABG pH ABG pO2 ABG HCO3 ABG O2 Saturation ABG Base Excess ABG Hemoglobin Oxyhemoglobin Sodium Potassium Chloride Carbon Dioxide BUN Creatinine Glucose POC Glucose 110 H 263 H Hemoglobin A1c Calcium Phosphorus Magnesium Ferritin AST ALT Alkaline Phosphatase Total Creatine Kinase CK-MB (CK-2) CK-MB (CK-2) Rel Index Troponin T Total Protein Albumin Triglycerides LDL Cholesterol Direct HDL Cholesterol Urine WBC (Auto) Urine Creatinine 03/29/20 03/29/20 03/30/20 16:17 22:57 11:00 WBC RBC Hgb Hct MCV MCHC RDW Lymph % (Auto) [place] % (Auto) Lymph # [place] # Seg Neutrophils % Seg Neuts % (Manual) Lymphocytes % (Manual) Nucleated RBC % Seg Neutrophils # Seg Neutrophils # Man Lymphocytes # (Manual) Monocytes # (Manual) Eosinophils # (Manual) PT INR Heparin Anti-Xa Level ABG pH ABG pO2 ABG HCO3 ABG O2 Saturation ABG Base Excess ABG Hemoglobin Oxyhemoglobin Sodium Potassium Chloride Carbon Dioxide BUN Creatinine Glucose POC Glucose 109 H 194 H 129 H Hemoglobin A1c Calcium Phosphorus Magnesium Ferritin AST ALT Alkaline Phosphatase Total Creatine Kinase CK-MB (CK-2) CK-MB (CK-2) Rel Index Troponin T Total Protein Albumin Triglycerides LDL Cholesterol Direct HDL Cholesterol Urine WBC (Auto) Urine Creatinine 03/30/20 03/30/20 03/31/20 15:16 21:54 04:27 WBC 15.8 H RBC 2.62 L Hgb 7.7 L Hct 24.1 L MCV MCHC RDW Lymph % (Auto) 9.4 L [place] % (Auto) Lymph # [place] # Seg Neutrophils % 84.4 H Seg Neuts % (Manual) Lymphocytes % (Manual) Nucleated RBC % Seg Neutrophils # 13.3 H Seg Neutrophils # Man Lymphocytes # (Manual) Monocytes # (Manual) Eosinophils # (Manual) PT INR Heparin Anti-Xa Level ABG pH ABG pO2 ABG HCO3 ABG O2 Saturation ABG Base Excess ABG Hemoglobin Oxyhemoglobin Sodium Potassium Chloride Carbon Dioxide BUN Creatinine Glucose POC Glucose 115 H 166 H Hemoglobin A1c Calcium Phosphorus Magnesium Ferritin AST ALT Alkaline Phosphatase Total Creatine Kinase CK-MB (CK-2) CK-MB (CK-2) Rel Index Troponin T Total Protein Albumin Triglycerides LDL Cholesterol Direct HDL Cholesterol Urine WBC (Auto) Urine Creatinine 03/31/20 03/31/20 03/31/20 04:27 07:37 11:46 WBC RBC Hgb Hct MCV MCHC RDW Lymph % (Auto) [place] % (Auto) Lymph # [place] # Seg Neutrophils % Seg Neuts % (Manual) Lymphocytes % (Manual) Nucleated RBC % Seg Neutrophils # Seg Neutrophils # Man Lymphocytes # (Manual) Monocytes # (Manual) Eosinophils # (Manual) PT INR Heparin Anti-Xa Level ABG pH ABG pO2 ABG HCO3 ABG O2 Saturation ABG Base Excess ABG Hemoglobin Oxyhemoglobin Sodium 133 L Potassium Chloride 96.6 L Carbon Dioxide 18 L BUN 75 H Creatinine 2.5 H D Glucose 129 H POC Glucose 156 H 224 H Hemoglobin A1c Calcium 8.0 L Phosphorus Magnesium Ferritin AST ALT Alkaline Phosphatase Total Creatine Kinase CK-MB (CK-2) CK-MB (CK-2) Rel Index Troponin T Total Protein Albumin Triglycerides LDL Cholesterol Direct HDL Cholesterol Urine WBC (Auto) Urine Creatinine 04/01/20 04/01/20 04/01/20 08:34 10:52 10:52 WBC 12.9 H RBC 2.75 L Hgb 8.2 L Hct 24.8 L MCV MCHC RDW Lymph % (Auto) 10.6 L [place] % (Auto) Lymph # [place] # Seg Neutrophils % 83.7 H Seg Neuts % (Manual) Lymphocytes % (Manual) Nucleated RBC % Seg Neutrophils # 10.8 H Seg Neutrophils # Man Lymphocytes # (Manual) Monocytes # (Manual) Eosinophils # (Manual) PT INR Heparin Anti-Xa Level ABG pH ABG pO2 ABG HCO3 ABG O2 Saturation ABG Base Excess ABG Hemoglobin Oxyhemoglobin Sodium 131 L Potassium Chloride 96.1 L Carbon Dioxide 17 L BUN 77 H Creatinine 2.3 H Glucose 205 H POC Glucose 110 H Hemoglobin A1c Calcium 7.9 L Phosphorus Magnesium Ferritin AST ALT Alkaline Phosphatase Total Creatine Kinase CK-MB (CK-2) CK-MB (CK-2) Rel Index Troponin T Total Protein Albumin Triglycerides LDL Cholesterol Direct HDL Cholesterol Urine WBC (Auto) Urine Creatinine 04/01/20 04/01/20 04/01/20 12:15 17:22 20:47 WBC RBC Hgb Hct MCV MCHC RDW Lymph % (Auto) [place] % (Auto) Lymph # [place] # Seg Neutrophils % Seg Neuts % (Manual) Lymphocytes % (Manual) Nucleated RBC % Seg Neutrophils # Seg Neutrophils # Man Lymphocytes # (Manual) Monocytes # (Manual) Eosinophils # (Manual) PT INR Heparin Anti-Xa Level ABG pH ABG pO2 ABG HCO3 ABG O2 Saturation ABG Base Excess ABG Hemoglobin Oxyhemoglobin Sodium Potassium Chloride Carbon Dioxide BUN Creatinine Glucose POC Glucose 201 H 219 H 156 H Hemoglobin A1c Calcium Phosphorus Magnesium Ferritin AST ALT Alkaline Phosphatase Total Creatine Kinase CK-MB (CK-2) CK-MB (CK-2) Rel Index Troponin T Total Protein Albumin Triglycerides LDL Cholesterol Direct HDL Cholesterol Urine WBC (Auto) Urine Creatinine 04/02/20 04/02/20 04/02/20 05:44 05:44 11:32 WBC 15.8 H RBC 2.81 L Hgb 8.2 L Hct 25.7 L MCV MCHC RDW Lymph % (Auto) [place] % (Auto) Lymph # [place] # 0.9 H Seg Neutrophils % 77.7 H Seg Neuts % (Manual) Lymphocytes % (Manual) Nucleated RBC % Seg Neutrophils # 12.3 H Seg Neutrophils # Man Lymphocytes # (Manual) Monocytes # (Manual) Eosinophils # (Manual) PT INR Heparin Anti-Xa Level ABG pH ABG pO2 ABG HCO3 ABG O2 Saturation ABG Base Excess ABG Hemoglobin Oxyhemoglobin Sodium 134 L Potassium Chloride Carbon Dioxide 19 L BUN 76 H Creatinine 2.0 H Glucose POC Glucose 116 H Hemoglobin A1c Calcium 8.0 L Phosphorus Magnesium Ferritin AST 291 H ALT 169 H Alkaline Phosphatase 256 H Total Creatine Kinase CK-MB (CK-2) CK-MB (CK-2) Rel Index Troponin T Total Protein 6.1 L Albumin 2.2 L Triglycerides LDL Cholesterol Direct HDL Cholesterol Urine WBC (Auto) Urine Creatinine 04/02/20 04/02/20 04/03/20 16:56 22:03 08:13 WBC RBC Hgb Hct MCV MCHC RDW Lymph % (Auto) [place] % (Auto) Lymph # [place] # Seg Neutrophils % Seg Neuts % (Manual) Lymphocytes % (Manual) Nucleated RBC % Seg Neutrophils # Seg Neutrophils # Man Lymphocytes # (Manual) Monocytes # (Manual) Eosinophils # (Manual) PT INR Heparin Anti-Xa Level ABG pH ABG pO2 ABG HCO3 ABG O2 Saturation ABG Base Excess ABG Hemoglobin Oxyhemoglobin Sodium Potassium Chloride Carbon Dioxide BUN Creatinine Glucose POC Glucose 141 H 152 H 126 H Hemoglobin A1c Calcium Phosphorus Magnesium Ferritin AST ALT Alkaline Phosphatase Total Creatine Kinase CK-MB (CK-2) CK-MB (CK-2) Rel Index Troponin T Total Protein Albumin Triglycerides LDL Cholesterol Direct HDL Cholesterol Urine WBC (Auto) Urine Creatinine 04/03/20 04/03/20 04/03/20 12:11 16:26 21:33 WBC RBC Hgb Hct MCV MCHC RDW Lymph % (Auto) [place] % (Auto) Lymph # [place] # Seg Neutrophils % Seg Neuts % (Manual) Lymphocytes % (Manual) Nucleated RBC % Seg Neutrophils # Seg Neutrophils # Man Lymphocytes # (Manual) Monocytes # (Manual) Eosinophils # (Manual) PT INR Heparin Anti-Xa Level ABG pH ABG pO2 ABG HCO3 ABG O2 Saturation ABG Base Excess ABG Hemoglobin Oxyhemoglobin Sodium Potassium Chloride Carbon Dioxide BUN Creatinine Glucose POC Glucose 139 H 164 H 147 H Hemoglobin A1c Calcium Phosphorus Magnesium Ferritin AST ALT Alkaline Phosphatase Total Creatine Kinase CK-MB (CK-2) CK-MB (CK-2) Rel Index Troponin T Total Protein Albumin Triglycerides LDL Cholesterol Direct HDL Cholesterol Urine WBC (Auto) Urine Creatinine 04/04/20 04/04/20 04/04/20 04:29 04:29 11:29 WBC 12.3 H RBC 2.88 L Hgb 8.4 L Hct 26.1 L MCV MCHC RDW Lymph % (Auto) [place] % (Auto) Lymph # [place] # Seg Neutrophils % 75.4 H Seg Neuts % (Manual) Lymphocytes % (Manual) Nucleated RBC % Seg Neutrophils # 9.3 H Seg Neutrophils # Man Lymphocytes # (Manual) Monocytes # (Manual) Eosinophils # (Manual) PT INR Heparin Anti-Xa Level ABG pH ABG pO2 ABG HCO3 ABG O2 Saturation ABG Base Excess ABG Hemoglobin Oxyhemoglobin Sodium 136 L Potassium Chloride Carbon Dioxide 19 L BUN 71 H Creatinine 1.7 H Glucose POC Glucose 108 H Hemoglobin A1c Calcium 8.0 L Phosphorus Magnesium Ferritin AST 673 H ALT 252 H Alkaline Phosphatase 311 H Total Creatine Kinase CK-MB (CK-2) CK-MB (CK-2) Rel Index Troponin T Total Protein Albumin 2.2 L Triglycerides LDL Cholesterol Direct HDL Cholesterol Urine WBC (Auto) Urine Creatinine 04/04/20 04/04/20 04/05/20 16:34 20:58 03:54 WBC 13.7 H RBC 3.03 L Hgb 8.7 L Hct 27.9 L MCV MCHC 31 L RDW 15.5 H Lymph % (Auto) [place] % (Auto) Lymph # [place] # Seg Neutrophils % 78.9 H Seg Neuts % (Manual) Lymphocytes % (Manual) Nucleated RBC % Seg Neutrophils # 10.8 H Seg Neutrophils # Man Lymphocytes # (Manual) Monocytes # (Manual) Eosinophils # (Manual) PT INR Heparin Anti-Xa Level ABG pH ABG pO2 ABG HCO3 ABG O2 Saturation ABG Base Excess ABG Hemoglobin Oxyhemoglobin Sodium Potassium Chloride Carbon Dioxide BUN Creatinine Glucose POC Glucose 151 H 131 H Hemoglobin A1c Calcium Phosphorus Magnesium Ferritin AST ALT Alkaline Phosphatase Total Creatine Kinase CK-MB (CK-2) CK-MB (CK-2) Rel Index Troponin T Total Protein Albumin Triglycerides LDL Cholesterol Direct HDL Cholesterol Urine WBC (Auto) Urine Creatinine 04/05/20 04/05/20 04/05/20 03:54 15:58 15:58 WBC RBC Hgb Hct MCV MCHC RDW Lymph % (Auto) [place] % (Auto) Lymph # [place] # Seg Neutrophils % Seg Neuts % (Manual) Lymphocytes % (Manual) Nucleated RBC % Seg Neutrophils # Seg Neutrophils # Man Lymphocytes # (Manual) Monocytes # (Manual) Eosinophils # (Manual) PT INR Heparin Anti-Xa Level ABG pH ABG pO2 67.1 L ABG HCO3 26.1 H ABG O2 Saturation 93.4 L ABG Base Excess ABG Hemoglobin 9.0 L Oxyhemoglobin 91.6 L Sodium 136 L Potassium 5.5 H Chloride Carbon Dioxide 21 L BUN 79 H Creatinine 1.9 H Glucose 63 L POC Glucose 129 H Hemoglobin A1c Calcium 8.2 L Phosphorus Magnesium Ferritin AST 696 H ALT 262 H Alkaline Phosphatase 325 H Total Creatine Kinase CK-MB (CK-2) CK-MB (CK-2) Rel Index Troponin T Total Protein Albumin 2.3 L Triglycerides LDL Cholesterol Direct HDL Cholesterol Urine WBC (Auto) Urine Creatinine 04/05/20 04/06/20 04/06/20 22:33 07:14 07:14 WBC RBC Hgb Hct MCV MCHC RDW Lymph % (Auto) [place] % (Auto) Lymph # [place] # Seg Neutrophils % Seg Neuts % (Manual) Lymphocytes % (Manual) Nucleated RBC % Seg Neutrophils # Seg Neutrophils # Man Lymphocytes # (Manual) Monocytes # (Manual) Eosinophils # (Manual) PT INR Heparin Anti-Xa Level ABG pH ABG pO2 ABG HCO3 ABG O2 Saturation ABG Base Excess ABG Hemoglobin Oxyhemoglobin Sodium Potassium 5.6 H Chloride Carbon Dioxide BUN 83 H Creatinine 1.9 H Glucose 202 H POC Glucose 253 H Hemoglobin A1c Calcium Phosphorus Magnesium Ferritin 444.2 H AST 469 H ALT 237 H Alkaline Phosphatase 332 H Total Creatine Kinase CK-MB (CK-2) CK-MB (CK-2) Rel Index Troponin T Total Protein Albumin 2.2 L Triglycerides LDL Cholesterol Direct HDL Cholesterol Urine WBC (Auto) Urine Creatinine 04/06/20 04/06/20 04/06/20 08:23 12:00 13:56 WBC RBC Hgb Hct MCV MCHC RDW Lymph % (Auto) [place] % (Auto) Lymph # [place] # Seg Neutrophils % Seg Neuts % (Manual) Lymphocytes % (Manual) Nucleated RBC % Seg Neutrophils # Seg Neutrophils # Man Lymphocytes # (Manual) Monocytes # (Manual) Eosinophils # (Manual) PT 27.0 H INR 2.44 H Heparin Anti-Xa Level ABG pH ABG pO2 ABG HCO3 ABG O2 Saturation ABG Base Excess ABG Hemoglobin Oxyhemoglobin Sodium Potassium Chloride Carbon Dioxide BUN Creatinine Glucose POC Glucose 226 H 176 H Hemoglobin A1c Calcium Phosphorus Magnesium Ferritin AST ALT Alkaline Phosphatase Total Creatine Kinase CK-MB (CK-2) CK-MB (CK-2) Rel Index Troponin T Total Protein Albumin Triglycerides LDL Cholesterol Direct HDL Cholesterol Urine WBC (Auto) Urine Creatinine 04/06/20 04/07/20 04/07/20 20:45 04:58 04:58 WBC RBC Hgb Hct MCV MCHC RDW Lymph % (Auto) [place] % (Auto) Lymph # [place] # Seg Neutrophils % Seg Neuts % (Manual) Lymphocytes % (Manual) Nucleated RBC % Seg Neutrophils # Seg Neutrophils # Man Lymphocytes # (Manual) Monocytes # (Manual) Eosinophils # (Manual) PT 30.9 H INR 2.89 H Heparin Anti-Xa Level ABG pH ABG pO2 ABG HCO3 ABG O2 Saturation ABG Base Excess ABG Hemoglobin Oxyhemoglobin Sodium Potassium 6.0 H Chloride Carbon Dioxide BUN 85 H Creatinine 2.1 H Glucose 177 H POC Glucose 139 H Hemoglobin A1c Calcium Phosphorus Magnesium Ferritin AST 351 H ALT 215 H Alkaline Phosphatase 332 H Total Creatine Kinase CK-MB (CK-2) CK-MB (CK-2) Rel Index Troponin T Total Protein Albumin 2.7 L Triglycerides LDL Cholesterol Direct HDL Cholesterol Urine WBC (Auto) Urine Creatinine 04/07/20 04/07/20 04/08/20 07:53 11:51 04:44 WBC 11.7 H RBC 3.07 L Hgb 9.1 L Hct 28.9 L MCV MCHC RDW 16.8 H Lymph % (Auto) 12.4 L [place] % (Auto) Lymph # [place] # Seg Neutrophils % 83.3 H Seg Neuts % (Manual) Lymphocytes % (Manual) Nucleated RBC % Seg Neutrophils # 9.7 H Seg Neutrophils # Man Lymphocytes # (Manual) Monocytes # (Manual) Eosinophils # (Manual) PT INR Heparin Anti-Xa Level ABG pH ABG pO2 ABG HCO3 ABG O2 Saturation ABG Base Excess ABG Hemoglobin Oxyhemoglobin Sodium Potassium Chloride Carbon Dioxide BUN Creatinine Glucose POC Glucose 167 H 120 H Hemoglobin A1c Calcium Phosphorus Magnesium Ferritin AST ALT Alkaline Phosphatase Total Creatine Kinase CK-MB (CK-2) CK-MB (CK-2) Rel Index Troponin T Total Protein Albumin Triglycerides LDL Cholesterol Direct HDL Cholesterol Urine WBC (Auto) Urine Creatinine 04/08/20 04/08/20 04/08/20 04:44 07:19 08:43 WBC RBC Hgb Hct MCV MCHC RDW Lymph % (Auto) [place] % (Auto) Lymph # [place] # Seg Neutrophils % Seg Neuts % (Manual) Lymphocytes % (Manual) Nucleated RBC % Seg Neutrophils # Seg Neutrophils # Man Lymphocytes # (Manual) Monocytes # (Manual) Eosinophils # (Manual) PT INR Heparin Anti-Xa Level ABG pH ABG pO2 ABG HCO3 ABG O2 Saturation ABG Base Excess ABG Hemoglobin Oxyhemoglobin Sodium Potassium 6.3 H* Chloride Carbon Dioxide 21 L BUN 89 H Creatinine 1.9 H Glucose 63 L POC Glucose 65 L 168 H Hemoglobin A1c Calcium Phosphorus Magnesium Ferritin AST 370 H ALT 211 H Alkaline Phosphatase 320 H Total Creatine Kinase CK-MB (CK-2) CK-MB (CK-2) Rel Index Troponin T Total Protein Albumin 2.6 L Triglycerides LDL Cholesterol Direct HDL Cholesterol Urine WBC (Auto) Urine Creatinine 04/08/20 04/08/20 04/08/20 12:53 16:38 21:47 WBC RBC Hgb Hct MCV MCHC RDW Lymph % (Auto) [place] % (Auto) Lymph # [place] # Seg Neutrophils % Seg Neuts % (Manual) Lymphocytes % (Manual) Nucleated RBC % Seg Neutrophils # Seg Neutrophils # Man Lymphocytes # (Manual) Monocytes # (Manual) Eosinophils # (Manual) PT INR Heparin Anti-Xa Level ABG pH ABG pO2 ABG HCO3 ABG O2 Saturation ABG Base Excess ABG Hemoglobin Oxyhemoglobin Sodium Potassium 6.0 H Chloride Carbon Dioxide BUN 90 H Creatinine 2.1 H Glucose 124 H POC Glucose 129 H 118 H Hemoglobin A1c Calcium Phosphorus Magnesium Ferritin AST ALT Alkaline Phosphatase Total Creatine Kinase CK-MB (CK-2) CK-MB (CK-2) Rel Index Troponin T Total Protein Albumin Triglycerides LDL Cholesterol Direct HDL Cholesterol Urine WBC (Auto) Urine Creatinine 04/09/20 04/09/20 04/09/20 03:45 08:04 19:10 WBC RBC Hgb Hct MCV MCHC RDW Lymph % (Auto) [place] % (Auto) Lymph # [place] # Seg Neutrophils % Seg Neuts % (Manual) Lymphocytes % (Manual) Nucleated RBC % Seg Neutrophils # Seg Neutrophils # Man Lymphocytes # (Manual) Monocytes # (Manual) Eosinophils # (Manual) PT INR Heparin Anti-Xa Level ABG pH 7.304 L ABG pO2 72.2 L ABG HCO3 ABG O2 Saturation 93.7 L ABG Base Excess -3.3 L ABG Hemoglobin 8.9 L Oxyhemoglobin 91.8 L Sodium Potassium 6.6 H* 6.5 H* Chloride Carbon Dioxide 21 L BUN 99 H 100 H Creatinine 2.2 H 2.3 H Glucose POC Glucose Hemoglobin A1c Calcium 8.2 L Phosphorus Magnesium Ferritin AST ALT Alkaline Phosphatase Total Creatine Kinase CK-MB (CK-2) CK-MB (CK-2) Rel Index Troponin T Total Protein Albumin Triglycerides LDL Cholesterol Direct HDL Cholesterol Urine WBC (Auto) Urine Creatinine 04/10/20 04/10/20 04/10/20 05:48 05:48 08:53 WBC RBC 3.01 L Hgb 8.9 L Hct 28.4 L MCV 95 H MCHC 31 L RDW 17.6 H Lymph % (Auto) 11.4 L [place] % (Auto) Lymph # 1.1 L [place] # Seg Neutrophils % 81.1 H Seg Neuts % (Manual) Lymphocytes % (Manual) Nucleated RBC % Seg Neutrophils # 8.1 H Seg Neutrophils # Man Lymphocytes # (Manual) Monocytes # (Manual) Eosinophils # (Manual) PT INR Heparin Anti-Xa Level ABG pH ABG pO2 ABG HCO3 ABG O2 Saturation ABG Base Excess ABG Hemoglobin Oxyhemoglobin Sodium Potassium 5.2 H Chloride Carbon Dioxide BUN 104 H Creatinine 2.2 H Glucose 129 H POC Glucose 110 H Hemoglobin A1c Calcium Phosphorus Magnesium 2.80 H Ferritin AST 502 H ALT 249 H Alkaline Phosphatase 323 H Total Creatine Kinase CK-MB (CK-2) CK-MB (CK-2) Rel Index Troponin T Total Protein Albumin 2.5 L Triglycerides LDL Cholesterol Direct HDL Cholesterol Urine WBC (Auto) Urine Creatinine 04/10/20 04/10/2004/10/20 11:42 16:05 21:35 WBC RBC Hgb Hct MCV MCHC RDW Lymph % (Auto) [place] % (Auto) Lymph # [place] # Seg Neutrophils % Seg Neuts % (Manual) Lymphocytes % (Manual) Nucleated RBC % Seg Neutrophils # Seg Neutrophils # Man Lymphocytes # (Manual) Monocytes # (Manual) Eosinophils # (Manual) PT INR Heparin Anti-Xa Level ABG pH ABG pO2 ABG HCO3 ABG O2 Saturation ABG Base Excess ABG Hemoglobin Oxyhemoglobin Sodium Potassium Chloride Carbon Dioxide BUN Creatinine Glucose POC Glucose 135 H 137 H 151 H Hemoglobin A1c Calcium Phosphorus Magnesium Ferritin AST ALT Alkaline Phosphatase Total Creatine Kinase CK-MB (CK-2) CK-MB (CK-2) Rel Index Troponin T Total Protein Albumin Triglycerides LDL Cholesterol Direct HDL Cholesterol Urine WBC (Auto) Urine Creatinine 04/11/20 04/11/20 04/11/20 06:26 06:26 06:26 WBC RBC 2.89 L Hgb 8.6 L Hct 27.4 L MCV 95 H MCHC 31 L RDW 17.5 H Lymph % (Auto) 9.9 L [place] % (Auto) Lymph # 1.0 L [place] # Seg Neutrophils % 85.7 H Seg Neuts % (Manual) Lymphocytes % (Manual) Nucleated RBC % Seg Neutrophils # 8.8 H Seg Neutrophils # Man Lymphocytes # (Manual) Monocytes # (Manual) Eosinophils # (Manual) PT 24.0 H INR 2.10 H Heparin Anti-Xa Level ABG pH ABG pO2 ABG HCO3 ABG O2 Saturation ABG Base Excess ABG Hemoglobin Oxyhemoglobin Sodium 146 H Potassium 5.3 H Chloride 108.2 H Carbon Dioxide BUN 109 H Creatinine 2.1 H Glucose 160 H POC Glucose Hemoglobin A1c Calcium Phosphorus Magnesium Ferritin AST 298 H ALT 207 H Alkaline Phosphatase 274 H Total Creatine Kinase CK-MB (CK-2) CK-MB (CK-2) Rel Index Troponin T Total Protein Albumin 2.5 L Triglycerides LDL Cholesterol Direct HDL Cholesterol Urine WBC (Auto) Urine Creatinine 04/11/20 04/11/20 04/11/20 07:57 11:33 16:07 WBC RBC Hgb Hct MCV MCHC RDW Lymph % (Auto) [place] % (Auto) Lymph # [place] # Seg Neutrophils % Seg Neuts % (Manual) Lymphocytes % (Manual) Nucleated RBC % Seg Neutrophils # Seg Neutrophils # Man Lymphocytes # (Manual) Monocytes # (Manual) Eosinophils # (Manual) PT INR Heparin Anti-Xa Level ABG pH ABG pO2 ABG HCO3 ABG O2 Saturation ABG Base Excess ABG Hemoglobin Oxyhemoglobin Sodium Potassium Chloride Carbon Dioxide BUN Creatinine Glucose POC Glucose 170 H 167 H 140 H Hemoglobin A1c Calcium Phosphorus Magnesium Ferritin AST ALT Alkaline Phosphatase Total Creatine Kinase CK-MB (CK-2) CK-MB (CK-2) Rel Index Troponin T Total Protein Albumin Triglycerides LDL Cholesterol Direct HDL Cholesterol Urine WBC (Auto) Urine Creatinine 04/11/20 04/11/20 04/11/20 16:30 16:30 16:50 WBC RBC Hgb Hct MCV MCHC RDW Lymph % (Auto) [place] % (Auto) Lymph # [place] # Seg Neutrophils % Seg Neuts % (Manual) Lymphocytes % (Manual) Nucleated RBC % Seg Neutrophils # Seg Neutrophils # Man Lymphocytes # (Manual) Monocytes # (Manual) Eosinophils # (Manual) PT INR Heparin Anti-Xa Level ABG pH 7.325 L ABG pO2 304.4 H ABG HCO3 ABG O2 Saturation 99.5 H ABG Base Excess -4.4 L ABG Hemoglobin 10.9 L Oxyhemoglobin Sodium Potassium Chloride Carbon Dioxide BUN Creatinine Glucose POC Glucose Hemoglobin A1c Calcium Phosphorus Magnesium Ferritin AST ALT Alkaline Phosphatase Total Creatine Kinase CK-MB (CK-2) CK-MB (CK-2) Rel Index Troponin T Total Protein Albumin Triglycerides LDL Cholesterol Direct HDL Cholesterol Urine WBC (Auto) 16.0 H Urine Creatinine 60.0 H 04/11/20 04/11/20 04/11/20 18:17 18:17 18:57 WBC RBC 2.71 L Hgb 7.9 L Hct 26.1 L MCV 96 H MCHC 30 L RDW 18.3 H Lymph % (Auto) [place] % (Auto) Lymph # [place] # Seg Neutrophils % Seg Neuts % (Manual) 89.0 H Lymphocytes % (Manual) 7.0 L Nucleated RBC % Seg Neutrophils # Seg Neutrophils # Man 8.8 H Lymphocytes # (Manual) 0.7 L Monocytes # (Manual) Eosinophils # (Manual) PT INR Heparin Anti-Xa Level ABG pH ABG pO2 ABG HCO3 ABG O2 Saturation ABG Base Excess ABG Hemoglobin Oxyhemoglobin Sodium 146 H Potassium 5.8 H Chloride 107.5 H Carbon Dioxide 21 L BUN 111 H Creatinine 2.2 H Glucose 176 H POC Glucose 199 H Hemoglobin A1c Calcium Phosphorus 7.40 H Magnesium 2.90 H Ferritin AST 230 H ALT 163 H Alkaline Phosphatase 236 H Total Creatine Kinase 351 H CK-MB (CK-2) CK-MB (CK-2) Rel Index Troponin T 3.950 H* Total Protein 5.7 L Albumin 2.1 L Triglycerides LDL Cholesterol Direct HDL Cholesterol 19 L Urine WBC (Auto) Urine Creatinine 04/11/20 04/12/20 04/12/20 21:21 01:41 04:45 WBC RBC Hgb Hct MCV MCHC RDW Lymph % (Auto) [place] % (Auto) Lymph # [place] # Seg Neutrophils % Seg Neuts % (Manual) Lymphocytes % (Manual) Nucleated RBC % Seg Neutrophils # Seg Neutrophils # Man Lymphocytes # (Manual) Monocytes # (Manual) Eosinophils # (Manual) PT INR Heparin Anti-Xa Level ABG pH 7.451 H ABG pO2 ABG HCO3 ABG O2 Saturation ABG Base Excess ABG Hemoglobin 6.2 L Oxyhemoglobin Sodium 147 H Potassium 6.0 H Chloride 111.8 H Carbon Dioxide 21 L BUN 117 H Creatinine 2.6 H Glucose 201 H POC Glucose 248 H Hemoglobin A1c Calcium 8.0 L Phosphorus Magnesium Ferritin AST ALT Alkaline Phosphatase Total Creatine Kinase CK-MB (CK-2) CK-MB (CK-2) Rel Index Troponin T Total Protein Albumin Triglycerides LDL Cholesterol Direct HDL Cholesterol Urine WBC (Auto) Urine Creatinine 04/12/20 04/12/20 04/12/20 07:22 07:22 07:22 WBC 12.1 H RBC 2.96 L Hgb 8.7 L Hct 28.1 L MCV 95 H MCHC 31 L RDW 17.7 H Lymph % (Auto) 7.1 L [place] % (Auto) Lymph # 0.9 L [place] # Seg Neutrophils % 85.8 H Seg Neuts % (Manual) Lymphocytes % (Manual) Nucleated RBC % Seg Neutrophils # 10.4 H Seg Neutrophils # Man Lymphocytes # (Manual) Monocytes # (Manual) Eosinophils # (Manual) PT 22.9 H INR 1.99 H Heparin Anti-Xa Level ABG pH ABG pO2 ABG HCO3 ABG O2 Saturation ABG Base Excess ABG Hemoglobin Oxyhemoglobin Sodium 147 H Potassium 5.2 H Chloride 109.8 H Carbon Dioxide 20 L BUN 120 H Creatinine 2.8 H Glucose 158 H POC Glucose Hemoglobin A1c Calcium Phosphorus Magnesium 3.00 H Ferritin AST 195 H ALT 162 H Alkaline Phosphatase 244 H Total Creatine Kinase CK-MB (CK-2) CK-MB (CK-2) Rel Index Troponin T Total Protein 5.9 L Albumin 2.4 L Triglycerides LDL Cholesterol Direct HDL Cholesterol Urine WBC (Auto) Urine Creatinine 04/12/20 04/12/20 04/12/20 11:54 16:30 21:05 WBC RBC Hgb Hct MCV MCHC RDW Lymph % (Auto) [place] % (Auto) Lymph # [place] # Seg Neutrophils % Seg Neuts % (Manual) Lymphocytes % (Manual) Nucleated RBC % Seg Neutrophils # Seg Neutrophils # Man Lymphocytes # (Manual) Monocytes # (Manual) Eosinophils # (Manual) PT INR Heparin Anti-Xa Level ABG pH ABG pO2 ABG HCO3 ABG O2 Saturation ABG Base Excess ABG Hemoglobin Oxyhemoglobin Sodium 146 H Potassium 5.2 H Chloride 107.3 H Carbon Dioxide 21 L BUN 132 H Creatinine 3.4 H Glucose 212 H POC Glucose 213 H 181 H Hemoglobin A1c Calcium Phosphorus Magnesium Ferritin AST ALT Alkaline Phosphatase Total Creatine Kinase CK-MB (CK-2) CK-MB (CK-2) Rel Index Troponin T Total Protein Albumin Triglycerides LDL Cholesterol Direct HDL Cholesterol Urine WBC (Auto) Urine Creatinine 04/12/20 04/12/20 04/13/20 21:17 23:24 04:25 WBC RBC Hgb Hct MCV MCHC RDW Lymph % (Auto) [place] % (Auto) Lymph # [place] # Seg Neutrophils % Seg Neuts % (Manual) Lymphocytes % (Manual) Nucleated RBC % Seg Neutrophils # Seg Neutrophils # Man Lymphocytes # (Manual) Monocytes # (Manual) Eosinophils # (Manual) PT INR Heparin Anti-Xa Level ABG pH ABG pO2 161.4 H ABG HCO3 ABG O2 Saturation ABG Base Excess -2.8 L ABG Hemoglobin 7.6 L Oxyhemoglobin Sodium Potassium Chloride Carbon Dioxide BUN Creatinine Glucose POC Glucose 203 H 221 H Hemoglobin A1c Calcium Phosphorus Magnesium Ferritin AST ALT Alkaline Phosphatase Total Creatine Kinase CK-MB (CK-2) CK-MB (CK-2) Rel Index Troponin T Total Protein Albumin Triglycerides LDL Cholesterol Direct HDL Cholesterol Urine WBC (Auto) Urine Creatinine 04/13/20 04/13/20 04/13/20 04:35 04:35 04:35 WBC 13.3 H RBC 2.68 L Hgb 8.0 L Hct 25.1 L MCV MCHC RDW 17.4 H Lymph % (Auto) 9.1 L [place] % (Auto) Lymph # [place] # 0.9 H Seg Neutrophils % 84.0 H Seg Neuts % (Manual) Lymphocytes % (Manual) Nucleated RBC % Seg Neutrophils # 11.1 H Seg Neutrophils # Man Lymphocytes # (Manual) Monocytes # (Manual) Eosinophils # (Manual) PT 27.8 H INR 2.55 H Heparin Anti-Xa Level ABG pH ABG pO2 ABG HCO3 ABG O2 Saturation ABG Base Excess ABG Hemoglobin Oxyhemoglobin Sodium 149 H Potassium 5.2 H Chloride 109.1 H Carbon Dioxide 20 L BUN 136 H Creatinine 3.5 H Glucose 271 H POC Glucose Hemoglobin A1c Calcium 8.3 L Phosphorus Magnesium Ferritin AST 241 H ALT 153 H Alkaline Phosphatase 294 H Total Creatine Kinase CK-MB (CK-2) CK-MB (CK-2) Rel Index Troponin T Total Protein 6.0 L Albumin 2.3 L Triglycerides LDL Cholesterol Direct HDL Cholesterol Urine WBC (Auto) Urine Creatinine 04/13/20 04/13/20 04/13/20 05:27 13:53 16:54 WBC RBC Hgb Hct MCV MCHC RDW Lymph % (Auto) [place] % (Auto) Lymph # [place] # Seg Neutrophils % Seg Neuts % (Manual) Lymphocytes % (Manual) Nucleated RBC % Seg Neutrophils # Seg Neutrophils # Man Lymphocytes # (Manual) Monocytes # (Manual) Eosinophils # (Manual) PT INR Heparin Anti-Xa Level ABG pH ABG pO2 ABG HCO3 ABG O2 Saturation ABG Base Excess ABG Hemoglobin Oxyhemoglobin Sodium Potassium Chloride Carbon Dioxide BUN Creatinine Glucose POC Glucose 284 H 320 H 357 H Hemoglobin A1c Calcium Phosphorus Magnesium Ferritin AST ALT Alkaline Phosphatase Total Creatine Kinase CK-MB (CK-2) CK-MB (CK-2) Rel Index Troponin T Total Protein Albumin Triglycerides LDL Cholesterol Direct HDL Cholesterol Urine WBC (Auto) Urine Creatinine 04/14/20 04/14/20 04/14/20 00:13 04:38 05:47 WBC RBC Hgb Hct MCV MCHC RDW Lymph % (Auto) [place] % (Auto) Lymph # [place] # Seg Neutrophils % Seg Neuts % (Manual) Lymphocytes % (Manual) Nucleated RBC % Seg Neutrophils # Seg Neutrophils # Man Lymphocytes # (Manual) Monocytes # (Manual) Eosinophils # (Manual) PT INR Heparin Anti-Xa Level ABG pH ABG pO2 ABG HCO3 ABG O2 Saturation ABG Base Excess -3.6 L ABG Hemoglobin 8.0 L Oxyhemoglobin 94.7 L Sodium Potassium Chloride Carbon Dioxide BUN Creatinine Glucose POC Glucose 251 H 273 H Hemoglobin A1c Calcium Phosphorus Magnesium Ferritin AST ALT Alkaline Phosphatase Total Creatine Kinase CK-MB (CK-2) CK-MB (CK-2) Rel Index Troponin T Total Protein Albumin Triglycerides LDL Cholesterol Direct HDL Cholesterol Urine WBC (Auto) Urine Creatinine 04/14/20 04/14/20 04/14/20 07:00 07:00 07:00 WBC RBC Hgb 7.8 L Hct 25.3 L MCV MCHC RDW Lymph % (Auto) [place] % (Auto) Lymph # [place] # Seg Neutrophils % Seg Neuts % (Manual) Lymphocytes % (Manual) Nucleated RBC % Seg Neutrophils # Seg Neutrophils # Man Lymphocytes # (Manual) Monocytes # (Manual) Eosinophils # (Manual) PT 24.3 H INR 2.15 H Heparin Anti-Xa Level ABG pH ABG pO2 ABG HCO3 ABG O2 Saturation ABG Base Excess ABG Hemoglobin Oxyhemoglobin Sodium Potassium Chloride Carbon Dioxide 20 L BUN 151 H Creatinine 4.1 H Glucose 266 H POC Glucose Hemoglobin A1c Calcium 7.7 L Phosphorus Magnesium Ferritin AST 176 H ALT 123 H Alkaline Phosphatase 259 H Total Creatine Kinase CK-MB (CK-2) CK-MB (CK-2) Rel Index Troponin T Total Protein 5.5 L Albumin 2.1 L Triglycerides LDL Cholesterol Direct HDL Cholesterol Urine WBC (Auto) Urine Creatinine Chest x-ray: image reviewed Allied health notes reviewed: RT
[2020-04-14] MEDS: CEFEPIME/NS 1 GM/100 ML 1 GM/100 ML BAG IV SCH (09:18)
[2020-04-14] MEDS: NORepinephrine/NS 4 MG-250 ML 4 MG/250 ML BAG IV SCH ×4 (09:19→21:17)
[2020-04-14] MEDS: ASPIRIN EC 81 MG TAB PO SCH (09:19)
[2020-04-14] MEDS: CLOPIDOGREL 75 MG TAB PO SCH (09:19)
[2020-04-14] MEDS: METOPROLOL TARTRATE 50 MG TAB PO SCH ×2 (09:19→21:19)
[2020-04-14] MEDS: LANSOPRAZOLE 30 MG SOLUTAB FEEDTUBE SCH ×2 (09:19→21:19)
--- NOTE | 2020-04-14 09:28 | Progress Note ---
Assessment and Plan Assessment and plan: -Blood sugars uncontrolled: Accu cks/SSC/add novolin 5 units bid,adjust as needed --Worsening renal function, nephrology following --Minimal drop in H/H no new episodes of GI bleeding --Rpt CT brain 04/13/20] Interval evaluation of ischemic changes in posterior MCA territory [place] cerebellar encephalomalacia --Cardiac arrest; status post CPR per ACLS Current Visit: Yes Status: Acute On mechanical ventilation, poor prognosis. Full CODE STATUS --Anoxic brain injury; Current Visit: Yes Status: Acute Secondary to cardiac arrest, neurology following Very poor prognosis, family aware --Acute CVA/ left parietal stroke Current Visit: Yes Status: Acute Neurology following, poor prognosis Discussed extensively with the son --Ventricular tachycardia; resolved Current Visit: Yes Status: Acute s/pAmiodarone bolus, followed by amiodarone drip Patient developed bradycardia amiodarone drip discontinued Poor prognosis, cardiology following --Acute systolic CHF; EF 30-35%% Current Visit: Yes Status: Acute Beta-blockers, BIJAN inhibitor, diuretics And put output monitoring --Acute hypoxic respiratory failure; Current Visit: Yes Status: Acute requiring BiPAP, oxygen titrate O2 sats to more than 90% Nebulizers, intubate if no improvement Supportive care, pulmonary following --Transaminitis/Acute liver failure Current Visit: Yes Status: Acute Secondary to severe sepsis LFTs trending down, GI following Abdominal ultrasound, fatty liver, thickening of gallbladder, --Coagulopathy ; secondary to acute liver failure Current Visit: Yes Status: Acute Monitor INR, no evidence of bleeding --Sepsis/infected BKA stump/possible pneumonia Current Visit: Yes Status: Acute Wound care and IV antibiotics Vanco cefepime ID following --acute metabolic encephalopathy/worsening lethargy Current Visit: Yes Status: Acute Multifactorial, sepsis, congestive heart failure, electrolyte abnormalities Patient was unresponsive on 04/08/2020, rapid response was called, CT head: without contrast; late subacute infarction in the posterior cerebral artery or posterior division middle cerebral artery distribution involving the lateral aspect of the left cerebral hemisphere in the parietal occipital junction region Remote bilateral cerebellar infarctions in PICA distribution No acute intracranial abnormalities identified patient is severely lethargic noncommunicative Neurology consult requested. --Hyperkalemia; Current Visit: Yes Status: Acute Slightly improved, follow electrolytes --acute left lower extremity ischemia s/p BKA Current Visit: Yes Status: Acute 03/19/2020 status post endovascular revascularization 03/19/2020 s/p left lower extremity 4 compartment fasciotomy Management per vascular Recommend aspirin, Plavix and Eliquis However Eliquis was discontinued Left BKA on 03/25/2020 --Non-ST elevation LA : Current Visit: Yes Status: Acute Patient has history of CABG ,no chest pain. cardiology feels non-STEMI 2 Medical management --Type II diabetes mellitus Current Visit: Yes Status: Acute Accu-Chek sliding scale coverage ADA diet Long-acting insulin as needed, HbA1c 11 --Nicotine dependence Current Visit: Yes Status: Acute Smoking cessation nicotine patch as needed --Anemia; Current Visit: Yes Status: Acute Gradual drop in H&H, closely monitor and transfuse as needed --Hypotension;/shock Levophed per protocol as needed --Severe protein calorie malnutrition Current Visit: Yes Status: Acute Nutrition supplements and supportive care Nutrition consult if needed --DVT prophylaxis Current Visit: Yes Status: Acute . Coagulopathy/SCD -- Full code status Current Visit: Yes Status: Acute Discharge planning issues Very poor prognosis recommend hospice/palliative care Multiorgan involvement, with very poor prognosis I discussed every day , sometimes 2times a day with patient's son Mr. Micah Weiss [phone] of patient's critical condition Multiorgan organ involvement, very poor prognosis, continuous deterioration clinically, I also discussed with him tests and imaging studies reports, consultants recommendations I answered all his questions, I even discussed about patient's advanced directives. The son reports that he would discuss with other family members and will get back to us. Informed patient's nurse of the above conversation, full code status at this time The high probability of a clinically significant, sudden or life threatening deterioration of the [Cardiac , neuro , renal , endocrine , GI , metabolic and respiratory] system(s) required my full and direct attention, intervention and personal management.The aggregate critical care time was [35] minutes. This time is in addition to time spent performing , reported procedures but includes the following: [x] Data Review and interpretation [x] Patient assessment and monitoring of vital signs [x] Documentation [x] Medication orders and management We will closely monitor the patient and adjust the management as needed Plan of care reviewed with the patient's nurse History Interval history: I have seen and examined the patient this morning at the bedside in ICU Patient's chart and medications and tests reviewed Patient is critically ill hypotensive on vasopressors Intubated on ventilatory support unresponsive Vital signs noted Hospitalist Physical - Constitutional Vitals: Temp Pulse Resp BP Pulse Ox 98.4 F 94 H 25 H 115/75 96 04/14/20 03:24 04/14/20 07:54 04/14/20 07:54 04/14/20 09:19 04/14/20 07:49 General appearance: Present: no acute distress, well-nourished, obese (Morbi dly), other (Unresponsive, intubated on vent) - EENT Eyes: Present: PERRL (Absent reflexes) - Neck Neck: Present: supple, normal ROM - Respiratory Respiratory effort: normal Respiratory: bilateral: diminished, negative: rales, rhonchi, wheezing - Cardiovascular Rhythm: other (Irregular) Heart Sounds: Present: S1 & S2 - Extremities Extremities: no ischemia, abnormal (Left BKA dressing in place) Extremity abnormal: edema - Abdominal General gastrointestinal: soft, non-tender, non-distended, normal bowel sounds - Integumentary Integumentary: Present: clear, warm - Psychiatric Psychiatric: other (Unresponsive) - Neurologic Neurologic: other (Unresponsive) HEART Score - HEART Score Troponin: Troponin T 3.950 ng/mL (0.00-0.029) H* 04/11/20 18:17 Results - Labs CBC & Chem 7: 04/14/20 07:00 04/14/20 12:00 Labs: Laboratory Last Values WBC 13.3 K/mm3 (4.5-11.0) H 04/13/20 04:35 RBC 2.68 M/mm3 (3.65-5.03) L 04/13/20 04:35 Hgb 7.8 gm/dl (11.8-15.2) L 04/14/20 07:00 Hct 25.3 % (35.5-45.6) L 04/14/20 07:00 MCV 94 fl (84-94) 04/13/20 04:35 MCH 30 pg (28-32) 04/13/20 04:35 MCHC 32 % (32-34) 04/13/20 04:35 RDW 17.4 % (13.2-15.2) H 04/13/20 04:35 Plt Count 167 K/mm3 (140-440) 04/13/20 04:35 Lymph % (Auto) 9.1 % (13.4-35.0) L 04/13/20 04:35 [place] % (Auto) 6.6 % (0.0-7.3) 04/13/20 04:35 Eos % (Auto) 0.1 % (0.0-4.3) 04/13/20 04:35 Baso % (Auto) 0.2 % (0.0-1.8) 04/13/20 04:35 Lymph # 1.2 K/mm3 (1.2-5.4) 04/13/20 04:35 [place] # 0.9 K/mm3 (0.0-0.8) H 04/13/20 04:35 Eos # 0.0 K/mm3 (0.0-0.4) 04/13/20 04:35 Baso # 0.0 K/mm3 (0.0-0.1) 04/13/20 04:35 Add Manual Diff Complete 04/11/20 18:17 Total Counted 100 04/11/20 18:17 Seg Neutrophils % 84.0 % (40.0-70.0) H 04/13/20 04:35 Seg Neuts % (Manual) 89.0 % (40.0-70.0) H 04/11/20 18:17 Band Neutrophils % 0 % 04/11/20 18:17 Lymphocytes % (Manual) 7.0 % (13.4-35.0) L 04/11/20 18:17 Reactive Lymphs % (Man) 0 % 04/11/20 18:17 Monocytes % (Manual) 4.0 % (0.0-7.3) 04/11/20 18:17 Eosinophils % (Manual) 0 % (0.0-4.3) 04/11/20 18:17 Basophils % (Manual) 0 % (0.0-1.8) 04/11/20 18:17 Metamyelocytes % 0 % 04/11/20 18:17 Myelocytes % 0 % 04/11/20 18:17 Promyelocytes % 0 % 04/11/20 18:17 Blast Cells % 0 % 04/11/20 18:17 Nucleated RBC % Not Reportable 04/11/20 18:17 Seg Neutrophils # 11.1 K/mm3 (1.8-7.7) H 04/13/20 04:35 Seg Neutrophils # Man 8.8 K/mm3 (1.8-7.7) H 04/11/20 18:17 Band Neutrophils # 0.0 K/mm3 04/11/20 18:17 Lymphocytes # (Manual) 0.7 K/mm3 (1.2-5.4) L 04/11/20 18:17 Abs React Lymphs (Man) 0.0 K/mm3 04/11/20 18:17 Monocytes # (Manual) 0.4 K/mm3 (0.0-0.8) 04/11/20 18:17 Eosinophils # (Manual) 0.0 K/mm3 (0.0-0.4) 04/11/20 18:17 Basophils # (Manual) 0.0 K/mm3 (0.0-0.1) 04/11/20 18:17 Metamyelocytes # 0.0 K/mm3 04/11/20 18:17 Myelocytes # 0.0 K/mm3 04/11/20 18:17 Promyelocytes # 0.0 K/mm3 04/11/20 18:17 Blast Cells # 0.0 K/mm3 04/11/20 18:17 WBC Morphology Not Reportable 04/11/20 18:17 Hypersegmented Neuts Not Reportable 04/11/20 18:17 Hyposegmented Neuts Not Reportable 04/11/20 18:17 Hypogranular Neuts Not Reportable 04/11/20 18:17 Smudge Cells Not Reportable 04/11/20 18:17 Toxic Granulation Not Reportable 04/11/20 18:17 Toxic Vacuolation Not Reportable 04/11/20 18:17 Dohle Bodies Not Reportable 04/11/20 18:17 Pelger-Huet Anomaly Not Reportable 04/11/20 18:17 Ananya Rods Not Reportable 04/11/20 18:17 Platelet Estimate Not Reportable 04/11/20 18:17 Clumped Platelets Not Reportable 04/11/20 18:17 Plt Clumps, EDTA Not Reportable 04/11/20 18:17 Large Platelets Not Reportable 04/11/20 18:17 Giant Platelets Not Reportable 04/11/20 18:17 Platelet Satelliting Not Reportable 04/11/20 18:17 Plt Morphology Comment Not Reportable 04/11/20 18:17 RBC Morphology Normal 04/11/20 18:17 Dimorphic RBCs Not Reportable 04/11/20 18:17 Polychromasia Not Reportable 04/11/20 18:17 Hypochromasia Not Reportable 04/11/20 18:17 Poikilocytosis Not Reportable 04/11/20 18:17 Anisocytosis Not Reportable 04/11/20 18:17 Microcytosis Not Reportable 04/11/20 18:17 Macrocytosis Not Reportable 04/11/20 18:17 Spherocytes Not Reportable 04/11/20 18:17 Pappenheimer Bodies Not Reportable 04/11/20 18:17 Sickle Cells Not Reportable 04/11/20 18:17 Target Cells Not Reportable 04/11/20 18:17 Tear Drop Cells Not Reportable 04/11/20 18:17 Ovalocytes Not Reportable 04/11/20 18:17 Helmet Cells Not Reportable 04/11/20 18:17 [place] Bodies Not Reportable 04/11/20 18:17 [place] Rings Not Reportable 04/11/20 18:17 Sixes Cells Not Reportable 04/11/20 18:17 Bite Cells Not Reportable 04/11/20 18:17 Crenated Cell Not Reportable 04/11/20 18:17 Elliptocytes Not Reportable 04/11/20 18:17 Acanthocytes (Spur) Not Reportable 04/11/20 18:17 Rouleaux Not Reportable 04/11/20 18:17 Hemoglobin C Crystals Not Reportable 04/11/20 18:17 Schistocytes Not Reportable 04/11/20 18:17 Malaria parasites Not Reportable 04/11/20 18:17 Steven Bodies Not Reportable 04/11/20 18:17 Hem Pathologist Commnt No 04/11/20 18:17 PT 24.3 Sec. (12.2-14.9) H 04/14/20 07:00 INR 2.15 (0.87-1.13) H 04/14/20 07:00 APTT 27.7 Sec. (24.2-36.6) 03/18/20 18:28 Heparin Anti-Xa Level 0.10 U.I./ml (0.3-0.7) L 03/25/20 04:06 ABG pH 7.384 pH Units (7.350-7.450) 04/14/20 04:38 ABG pCO2 36.2 mm Hg 04/14/20 04:38 ABG pO2 88.3 mm Hg (80.0-90.0) 04/14/20 04:38 ABG HCO3 21.1 mmol/L (20.0-26.0) 04/14/20 04:38 ABG O2 Saturation 97.0 % (95.0-99.0) 04/14/20 04:38 ABG O2 Content 10.8 (0.0-44) 04/14/20 04:38 ABG Base Excess -3.6 mmol/L (-2.0-3.0) L 04/14/20 04:38 ABG Hemoglobin 8.0 gm/dl (14.0-18.0) L 04/14/20 04:38 ABG Carboxyhemoglobin 1.8 % (0.0-5.0) 04/14/20 04:38 ABG Methemoglobin 0.6 % (0.0-1.5) 04/14/20 04:38 Oxyhemoglobin 94.7 % (95.0-99.0) L 04/14/20 04:38 FiO2 25 % 04/14/20 04:38 Sodium 145 mmol/L (137-145) 04/14/20 07:00 Potassium 5.0 mmol/L (3.6-5.0) 04/14/20 07:00 Chloride 106.6 mmol/L (98-107) 04/14/20 07:00 Carbon Dioxide 20 mmol/L (22-30) L 04/14/20 07:00 Anion Gap 23 mmol/L 04/14/20 07:00 BUN 151 mg/dL (9-20) H 04/14/20 07:00 Creatinine 4.1 mg/dL (0.8-1.3) H 04/14/20 07:00 Estimated GFR 15 ml/min 04/14/20 07:00 BUN/Creatinine Ratio 37 % 04/14/20 07:00 Glucose 266 mg/dL (75-100) H 04/14/20 07:00 POC Glucose 273 (70-105) H 04/14/20 05:47 Hemoglobin A1c 11.0 % (4-6) H 03/18/20 22:21 Calcium 7.7 mg/dL (8.4-10.2) L 04/14/20 07:00 Phosphorus 7.40 mg/dL (2.5-4.5) H 04/11/20 18:17 Magnesium 3.00 mg/dL (1.7-2.3) H 04/12/20 07:22 Ferritin 444.2 ng/mL (30.0-300.0) H 04/06/20 07:14 Total Bilirubin 0.90 mg/dL (0.1-1.2) 04/14/20 07:00 AST 176 units/L (5-40) H 04/14/20 07:00 ALT 123 units/L (7-56) H 04/14/20 07:00 Alkaline Phosphatase 259 units/L (35-129) H 04/14/20 07:00 Ammonia 38.0 umol/L (25-60) 04/12/20 07:22 Total Creatine Kinase 351 units/L (55-170) H 04/11/20 18:17 CK-MB (CK-2) 3.5 ng/mL (0.0-4.0) 04/11/20 18:17 CK-MB (CK-2) Rel Index 0.9 (0-4) 04/11/20 18:17 Troponin T 3.950 ng/mL (0.00-0.029) H* 04/11/20 18:17 Total Protein 5.5 g/dL (6.3-8.2) L 04/14/20 07:00 Albumin 2.1 g/dL (3.9-5) L 04/14/20 07:00 Albumin/Globulin Ratio 0.6 % 04/14/20 07:00 Triglycerides 99 mg/dL (2-149) 04/11/20 18:17 Cholesterol 93 mg/dL (50-199) 04/11/20 18:17 LDL Cholesterol Direct 60 mg/dL (50-130) 04/11/20 18:17 HDL Cholesterol 19 mg/dL (40-59) L 04/11/20 18:17 Cholesterol/HDL Ratio 4.89 % 04/11/20 18:17 Urine Color Yellow (Yellow) 04/11/20 16:30 Urine Turbidity Slightly-cloudy (Clear) 04/11/20 16:30 Urine pH 5.0 (5.0-7.0) 04/11/20 16:30 Ur Specific [place] 1.013 (1.003-1.030) 04/11/20 16:30 Urine Protein <15 mg/dl mg/dL (Negative) 04/11/20 16:30 Urine Glucose (UA) Neg mg/dL (Negative) 04/11/20 16:30 Urine Ketones Neg mg/dL (Negative) 04/11/20 16:30 Urine Blood Lg (Negative) 04/11/20 16:30 Urine Nitrite Neg (Negative) 04/11/20 16:30 Urine Bilirubin Neg (Negative) 04/11/20 16:30 Urine Urobilinogen < 2.0 mg/dL (<2.0) 04/11/20 16:30 Ur Leukocyte Esterase Neg (Negative) 04/11/20 16:30 Urine WBC (Auto) 16.0 /HPF (0.0-6.0) H 04/11/20 16:30 Urine RBC (Auto) 19.0 /HPF (0.0-6.0) 04/11/20 16:30 U Epithel Cells (Auto) 1.0 /HPF (0-13.0) 04/11/20 16:30 Urine Mucus Few /HPF 04/11/20 16:30 Urine Yeast (Budding) Few /HPF 04/11/20 16:30 Urine Eosinophils None seen (None Seen) 04/11/20 16:30 Urine Creatinine 60.0 mg/dL (0.1-20.0) H 04/11/20 16:30 Urine Sodium 26 mmol/L 04/11/20 16:30 Random Vancomycin 18.3 ug/mL (0-40.0) 04/13/20 06:34 Coronavirus (PCR) Negative (Negative) 04/03/20 08:00 Hep Bs Antigen Non-reactive (Negative) 04/06/20 07:14 Hepatitis C Antibody Non-reactive (NonReactive) 04/06/20 07:14 Blood Type B POSITIVE 03/25/20 11:42 Antibody Screen Negative 03/25/20 11:42 Microbiology: Microbiology 04/11/20 17:20 Tracheal Aspirate Sputum Culture - Final Dahlia Albicans 04/08/20 Unknown Leg - Left Wound Culture - Final Enterococcus Faecalis 04/11/20 16:30 Urine,Clean Catch Urine Culture - Preliminary NO GROWTH AFTER 24 HOURS - Diagnostic Impressions Diagnostic Impressions: Echocardiogram 03/19/20 12:49 Transthoracic Echocardiogram Indication: CAD and Abnormal EKG HR: 110 Conclusions *The study is technically limited due to patient body habitus. *The left ventricular chamber size is mildly dilated. *Global left ventricular systolic function is moderate to severely decreased. *The estimated ejection fraction is 30-35%. *The basal inferolateral, and basal inferior wall segments are normal. *The mid inferolateral, mid inferior, apical lateral, and apical inferior wall segments are akinetic. *The left atrial chamber size is normal. Findings Procedure Info: The study is technically limited due to patient body habitus. The study was technically limited due to the patient's inability to lay in the left lateral decubitus position. Left Ventricle: The left ventricular chamber size is mildly dilated. Global left ventricular systolic function is moderate to severely decreased. The estimated ejection fraction is 30-35%. The basal inferolateral, and basal inferior wall segments are normal. The mid inferolateral, mid inferior, apical lateral, and apical inferior wall segments are akinetic. Left Atrium: The left atrial chamber size is normal. Right Ventricle: The right ventricle is not well visualized. Right Atrium: The right atrium is not well visualized. The right atrial cavity size is normal. Aortic Valve: The aortic valve is trileaflet. Mitral Valve: The mitral valve leaflets are moderately thickened. There is mild mitral regurgitation. Tricuspid Valve: The tricuspid valve is not well visualized. There is trace tricuspid regurgitation. Pulmonic Valve: The pulmonic valve is not well visualized. Pericardium: There is no pericardial effusion. Aorta: The aorta appears normal. Venous: The venous system is not well visualized. Contrast: Definity was used to optimize study. Measurements Chambers 2D Name Value Normal Range IVSd (2D) 0.94 cm (0.6 - 1.1) LVPWd (2D) 0.94 cm (0.6 - 1.1) LVIDd (2D) 6.15 cm (3.7 - 5.6) LVIDs (2D) 5.2 cm (2 - 3.8) LV FS (2D) 15.5 % - EF Teichholz (2D) 32.08 % - Ao root diameter (2D) 2.77 cm (2 - 3.7) Volumes/Mass Name Value Normal Range LA ESV SP 4CH (A/L) 73.77 ml - LA ESV SP 2CH (A/L) 66.45 ml - LA ESV BP (A/L) 71.61 ml - LA ESV BP (A/L) index 30.6 ml/m2 - LA ESV SP 4CH (MOD) 72.55 ml - LA ESV SP 2CH (MOD) 65.34 ml - LA ESV BP (MOD) 70.27 ml - LA ESV BP (MOD) index 30.03 ml/m2 - Diastolic/Systolic Function Name Value Normal Range MV E-wave Vmax 0.85 m/sec - MV deceleration time 69.14 msec - MV A-wave Vmax 0.89 m/sec - MV E:A ratio 0.95 ratio - Aortic Valve Name Value Normal Range AV Vmax 0.96 m/sec - AV VTI 11.83 cm - AV peak gradient 3.68 mmHg - AV mean gradient 1.6 mmHg - LVOT diameter 2.19 cm - LVOT Vmax 0.86 m/sec - LVOT VTI 13.33 cm - LVOT peak gradient 2.96 mmHg - LVOT mean gradient 1.48 mmHg - SV LVOT 50.08 ml - DEYA (continuity Vmax) 3.37 cm2 - DEYA (continuity VTI) 4.23 cm2 - Ascending Ao 2.92 cm - Pulmonic Valve/Qp:Qs Name Value Normal Range PV Vmax 1.08 m/sec - PV VTI 15.88 cm - PV peak gradient 4.7 mmHg - PV mean gradient 2.18 mmHg - RVOT Vmax 0.82 m/sec - RVOT VTI 11.48 cm - RVOT peak gradient 2.67 mmHg - Wallmotion BAS Not Seen BA Not Seen BAL Not Seen BAY Normal BI Normal BIS Not Seen MAS Not Seen MA Not Seen MAL Not Seen MIL Akinetic LA Akinetic MIS Not Seen Not Seen AA Not Seen AL Akinetic AI Akinetic APEX Not Seen Tyson/IV: Voiding Method Indwelling Catheter IV Catheter Type [Right Peripheral IV Forearm] IV Catheter Type [Right INT / Saline Lock Antecubital] IV Catheter Type [Right Hand] Peripheral IV IV Catheter Type [Left Forearm INT / Saline Lock ] IV Catheter Type [Left Upper PICC Line arm] IV Catheter Type [Left INT / Saline Lock Antecubital] Active Medications - Current Medications Current Medications: Generic Name Dose Route Start Last Admin Trade Name Freq PRN Reason Stop Dose Admin Albuterol 2.5 mg 04/01/20 00:03 Proventil IH Q6HRT PRN Shortness Of Breath Lipase/Protease/Amylase 1 each 04/10/20 17:39 Pancrecarroll [place] 10,500 Unit FEEDTUBE PRN PRN For Clogged Feeding Tube Arformoterol Tartrate 15 mcg 03/19/20 20:00 04/14/20 07:54 Brovana Nebu IH 15 mcg Q12HRT LOI Administration Aspirin 81 mg 04/10/20 16:00 04/14/20 09:19 Halfprin Ec PO 81 mg QDAY LOI Administration Atorvastatin Calcium 40 mg 03/19/20 22:00 04/13/20 23:00 Lipitor PO 40 mg QHS LOI Administration Budesonide 0.5 mg 03/19/20 20:00 04/14/20 07:54 Pulmicort IH 0.5 mg Q12HRT LOI Administration Clopidogrel Bisulfate 75 mg 03/19/20 10:00 04/14/20 09:19 Plavix PO 75 mg QDAY LOI Administration Dextrose 50 ml 03/18/20 22:21 04/08/20 07:42 D50w (25gm) Syringe IV 50 ml Q30MIN PRN Administration Hypoglycemia Protocol Diphenhydramine HCl 25 mg 03/19/20 12:44 Benadryl IV Q4H PRN Itching Fentanyl 50 mcg 04/11/20 20:22 Sublimaze IV Q10MIN PRN ANALGESIA Furosemide 40 mg 04/06/20 06:00 04/14/20 07:13 Lasix IV Not Given 0600,1800 LOI Hydrophilic Ointment 1 applic 04/11/20 20:22 Vaseline Lip Therapy TP Q2HR PRN Dry Lips Cefepime HCl 1 gm in 100 mls @ 200 mls/hr 04/08/20 13:00 04/14/20 09:18 Cefepime/Ns 1 Gm/100 Ml IV 200 mls/hr Q12HR LOI Administration Protocol Norepinephrine 4 mg in 250 mls @ 7.5 mls/hr 04/11/20 18:00 04/14/20 09:19 Levophed Drip 4 Mg/Ns 250 Ml IV 6 mcg/min TITR LOI 22.5 mls/hr Administration Protocol 2 MCG/MIN Fentanyl Citrate 2,000 mcg in 100 mls @ 6.405 mls/hr 04/11/20 21:00 Fentanyl Drip Premix IV TITR LOI Protocol 1 MCG/KG/HR Insulin Human Isoph/Insulin Regular 5 unit 04/14/20 17:00 Humulin 70/30 SUB-Q BIDDIAB LOI Insulin Human Lispro 0 unit 04/12/20 00:00 04/14/20 06:16 Humalog SUB-Q 6 unit Q6HR LOI Administration Protocol Ipratropium [place] 0.5 mg 04/01/20 00:05 Atrovent IH Q6HRT PRN Shortness Of Breath Lansoprazole 30 mg 04/12/20 10:00 04/14/20 09:19 Prevacid Solutab FEEDTUBE 30 mg BID [facility] Administration Magnesium Hydroxide 30 ml 03/18/20 22:21 Milk Of Magnesia PO Q4H PRN Constipation Metoprolol Tartrate 50 mg 03/19/20 22:00 04/14/20 09:19 Metoprolol PO 50 mg BID [facility] Administration Multi-Ingred Cream/Lotion/Oil/Oint 1 applic 04/11/20 20:22 Artificial Tears Ophth Oint OU Q4HR PRN Dry Eye(s) Naloxone HCl 0.1 mg 03/19/20 12:44 Naloxone IV Q2MIN PRN Res Rate </= 8 or 02 SAT < 92% Ondansetron HCl 4 mg 03/18/20 22:21 04/05/20 01:46 Zofran IV 4 mg Q8H PRN Administration Nausea And Vomiting Simple Syrup 15 ml 04/10/20 17:39 Simple Syrup FEEDTUBE PRN PRN Hypoglycemia Simple Syrup 30 ml 04/10/20 17:39 Simple Syrup FEEDTUBE PRN PRN Hypoglycemia Sodium Bicarbonate 325 mg 04/10/20 17:39 Sodium Bicarbonate FEEDTUBE PRN PRN For Clogged Feeding Tube Sodium Chloride 10 ml 03/19/20 10:00 04/14/20 09:20 Sodium Chloride Flush Syringe 10 Ml IV 10 ml BID LOI Administration Sodium Chloride 10 ml 03/18/20 22:21 04/11/20 05:57 Sodium Chloride Flush Syringe 10 Ml IV 10 ml PRN PRN Administration LINE FLUSH Nutrition/Malnutrition Assess - Dietary Evaluation Nutrition/Malnutrition Findings: Nutrition Notes Start: 03/19/20 11:59 Freq: Status: Active Protocol: Document 04/11/20 08:54 LM (Rec: 04/11/20 09:04 LM [id number]) Nutrition Notes Need for Assessment generated from: MD Order Initial or Follow up Reassessment Current Diagnosis COPD,Diabetes Other Pertinent Diagnosis (L) LE ischemia s/p (L) BKA, STARR, NSTEMI Current Diet TF Labs/Tests K 5.3 Na 146 BUN 109 Cr 2.1 Pertinent Medications Lasix Height 6 ft Weight 128.1 kg [place] Body Weight (kg) 80.90 BMI 38.2 Weight Status Obese Subjective/Other Information MD consult for TF. Pt with dobhoff. Burn Absent Trauma Absent Current % PO Negligible Minimum of two criteria No #1 Nutrition Diagnosis Increased nutrient needs ( specify in comment below) Diagnosis Progress(for reassessment Continues documentation) Is patient on ventilator? No Is Patient Ambulatory and/or Out of Bed No REE-([facility]-confined to bed) 2588.544 Kcal/Kg value to use for calculation 17 Approximate Energy Requirements Using 2178 kcal/Kg Calculation Used for Recommendations Kcal/kg Additional Notes Pro needs 1-1.2g/kg adjBW (not for amputation): 105-125g/day Fluid needs 1ml/kcal Nutrition Intervention Change Diet Order: TF Nutrition Support: Nepro 1.8 at 45ml/hr Flush 200ml q4h Kcal 1,944 Protein (gm) 87 Fluid (mL) 785 Goal #1 TF start/tolerance Goal #2 Healing of surgical site Anticipated Discharge Needs: unable to determine at this time Follow-Up By: 04/15/20 Additional Comments F/U for TF start/tolerance, Na /K labs
[2020-04-14] MEDS ORDERED: LACTATED RINGERS 1,000 ML IV ONE (09:46)
[2020-04-14] MEDS ORDERED: SODIUM BICARB 8.4% 50 MEQ/50 ML SYRINGE IV ONE (10:00)
[2020-04-14] MEDS ORDERED: CALCIUM CHLORIDE 1,000 MG/10 ML SYRINGE IV ONE ×2 (10:00→11:59)
[2020-04-14] MEDS ORDERED: AMIODARONE 150 MG/3 ML INJ IV ONE (10:00)
--- NOTE | 2020-04-14 10:10 | XRay Report ---
CHEST 1 VIEW INDICATION / CLINICAL INFORMATION: follow up respiratory failure. COMPARISON: 04/13/2020. FINDINGS: SUPPORT DEVICES: Unchanged. HEART / MEDIASTINUM: Stable. Prior sternotomy. LUNGS / PLEURA: No significant change to the previously noted bilateral pulmonary opacities. Persiste nt small left-sided pleural effusion. No pneumothorax. ADDITIONAL FINDINGS: No significant additional findings. IMPRESSION: 1. No significant interval change since prior exam. 2. Persistent bilateral pulmonary opacities. 3. Persistent small left sided pleural effusion. 4. Medical devices are in stable position. Signer Name: Ean Rodrigez MD Signed: 04/14/2020 10:05 AM Workstation Name: [id number]
[2020-04-14] MEDS: INSULIN NPH/REGULAR 70/30 INJ SUB-Q SCH ×2 (10:27→16:29)
[2020-04-14] MEDS ORDERED: AMIODARONE 150 MG in DEXTROSE 5% IN WATER 97 ML IV ONE (12:00)
--- NOTE | 2020-04-14 12:08 | Event Note ---
Date: 04/14/20 Called to beside for episodic V-Tach. Low BP. HR bouncing from 70's 20 180's. Intermittent runs of VTACH. Increased levophed to 10 and now has a MAP of 72. Spoke with IMS in regards to issues patient had before with amio, however, given cardiac instability and low BP's feel that amio is the best choice. Will give bolus and restart drip. Also gave 1 gram of calicum chloride from the crash cart. Ordered stat BMP and Mag and Phos. Will need 12 lead EKG
[2020-04-14] MEDS: AMIODARONE 900 MG in DEXTROSE 5% IN WATER 482 ML IV SCH (12:27)
[2020-04-14 12:37] LABS: Calcium 8.4 mg/dL (8.4-10.2)
--- NOTE | 2020-04-14 14:34 | Progress Note ---
Assessment and Plan 1. Acute kidney injury: Vasomotor DYLON in the setting of sepsis and hypotension. US negative for hydro. UA results noted. Monitor renal function. Creatinine level continue to increase. Avoid nephrotoxic agents. Meds dosage based on GFR. 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 2. FEN: Hyperkalemia, improved, monitor. Metabolic acidosis, monitor. Hypernatremia, improved with water flushes to 250 ml Q4, monitor. Monitor lytes and volume status. 3. Sepsis: PNA vs L stump infection. Followed by ID. 4. Shock / Hypotension: On Levophed. Monitor BP. 5. Acute hypoxic respiratory failure: Intubated 04/11, on vent. 6. s/p Cardiac arrest. 7. Acute left lower extremity ischemia: 03/19/2020 status post endovascular revascularization. 03/19/2020 s/p left lower extremity 4 compartment fasciotomy. 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 8. Non-ST elevation [place] : Patient has history of CABG, patient denies any chest pain. Followed by Cards. 9. Acute systolic CHF; EF 30-35%: Beta-blockers. 10. Intermittent V.tach: On IV amio. 11. Acute metabolic encephalopathy: Multifactorial. Followed by Neurology. 12. Elevated Transaminases: Followed by GI. 13. DM with hyperglycemia: Accu-Check, sliding scale coverage, ADA diet. HbA1C 11. 14. Anemia: Closely monitor and transfuse as needed. - Subjective: Patient was seen and examined at the bedside. In ICU. Events noted, episodic V-Tach, HR between 70's 20 180's. D/w RN at the bedside. - General Appearance General appearance: well-developed, obese, appears stated age, intubated, on vent HEENT: ATNC, PERRL Neck: Trachea midline Respiratory: appears ctab Cardiology: regular, S1S2, no murmur Gastrointestinal: soft, not tender, not distended Integumentary: L BKA dressing Neurologic: sedated Ext: extremity edema noted : acosta catheter Subjective Date of service: 04/14/20 Principal diagnosis: Anoxic brain injury, stroke Objective - Vital Signs Vital signs: Vital Signs - 12hr 04/14/20 04/14/20 04/14/20 02:41 02:51 03:00 Temperature Pulse Rate 90 92 H 90 Pulse Rate [ Anterior Bilateral Throughout] Pulse Rate [ Apical] Pulse Rate [ From Monitor] Respiratory 14 19 17 Rate Respiratory Rate [Anterior Bilateral Throughout] Blood Pressure 103/60 106/65 101/65 O2 Sat by Pulse 96 97 96 Oximetry 04/14/20 04/14/20 04/14/20 03:11 03:21 03:24 Temperature 98.4 F Pulse Rate 89 90 Pulse Rate [ Anterior Bilateral Throughout] Pulse Rate [ Apical] Pulse Rate [ From Monitor] Respiratory 19 20 Rate Respiratory Rate [Anterior Bilateral Throughout] Blood Pressure 101/65 100/57 O2 Sat by Pulse 97 97 Oximetry 04/14/20 04/14/20 04/14/20 03:30 03:41 03:51 Temperature Pulse Rate 89 91 H 91 H Pulse Rate [ Anterior Bilateral Throughout] Pulse Rate [ Apical] Pulse Rate [ From Monitor] Respiratory 20 19 17 Rate Respiratory Rate [Anterior Bilateral Throughout] Blood Pressure 102/61 102/61 107/65 O2 Sat by Pulse 97 97 91 Oximetry 04/14/20 04/14/20 04/14/20 04:00 04:11 04:21 Temperature Pulse Rate 91 H 92 H 93 H Pulse Rate [ Anterior Bilateral Throughout] Pulse Rate [ 95 H Apical] Pulse Rate [ From Monitor] Respiratory 17 20 20 Rate Respiratory Rate [Anterior Bilateral Throughout] Blood Pressure 103/65 107/65 108/65 O2 Sat by Pulse 94 97 88 Oximetry 04/14/20 04/14/20 04/14/20 04:30 04:31 04:41 Temperature Pulse Rate 94 H 93 H 92 H Pulse Rate [ Anterior Bilateral Throughout] Pulse Rate [ Apical] Pulse Rate [ From Monitor] Respiratory 22 20 Rate Respiratory Rate [Anterior Bilateral Throughout] Blood Pressure 106/68 106/68 106/68 O2 Sat by Pulse 95 95 96 Oximetry 04/14/20 04/14/20 04/14/20 04:51 05:00 05:11 Temperature Pulse Rate 94 H 96 H 91 H Pulse Rate [ Anterior Bilateral Throughout] Pulse Rate [ Apical] Pulse Rate [ From Monitor] Respiratory 19 13 20 Rate Respiratory Rate [Anterior Bilateral Throughout] Blood Pressure 105/66 104/68 104/68 O2 Sat by Pulse 96 97 94 Oximetry 04/14/20 04/14/20 04/14/20 05:21 05:30 05:41 Temperature Pulse Rate 92 H 92 H 96 H Pulse Rate [ Anterior Bilateral Throughout] Pulse Rate [ Apical] Pulse Rate [ From Monitor] Respiratory 19 21 22 Rate Respiratory Rate [Anterior Bilateral Throughout] Blood Pressure 101/63 99/63 99/63 O2 Sat by Pulse 96 96 98 Oximetry 04/14/20 04/14/20 04/14/20 05:51 06:00 06:11 Temperature Pulse Rate 89 93 H 93 H Pulse Rate [ Anterior Bilateral Throughout] Pulse Rate [ Apical] Pulse Rate [ From Monitor] Respiratory 17 19 23 Rate Respiratory Rate [Anterior Bilateral Throughout] Blood Pressure 108/72 100/65 108/72 O2 Sat by Pulse 96 96 Oximetry 04/14/20 04/14/20 04/14/20 06:21 06:30 06:41 Temperature Pulse Rate 92 H 95 H 92 H Pulse Rate [ Anterior Bilateral Throughout] Pulse Rate [ Apical] Pulse Rate [ From Monitor] Respiratory 19 22 20 Rate Respiratory Rate [Anterior Bilateral Throughout] Blood Pressure 103/64 106/66 106/66 O2 Sat by Pulse 95 97 97 Oximetry 04/14/20 04/14/20 04/14/20 06:51 07:00 07:11 Temperature Pulse Rate 95 H 94 H 92 H Pulse Rate [ Anterior Bilateral Throughout] Pulse Rate [ Apical] Pulse Rate [ From Monitor] Respiratory 21 20 19 Rate Respiratory Rate [Anterior Bilateral Throughout] Blood Pressure 110/68 106/68 106/68 O2 Sat by Pulse 98 98 97 Oximetry 04/14/20 04/14/20 04/14/20 07:21 07:30 07:49 Temperature Pulse Rate 96 H 94 H 94 H Pulse Rate [ Anterior Bilateral Throughout] Pulse Rate [ Apical] Pulse Rate [ From Monitor] Respiratory 22 14 Rate Respiratory Rate [Anterior Bilateral Throughout] Blood Pressure 108/73 97/68 95/65 O2 Sat by Pulse 97 97 96 Oximetry 04/14/20 04/14/20 04/14/20 07:54 08:00 08:30 Temperature Pulse Rate 94 H 94 H Pulse Rate [ 94 H Anterior Bilateral Throughout] Pulse Rate [ Apical] Pulse Rate [ 96 H From Monitor] Respiratory 21 20 Rate Respiratory 25 H Rate [Anterior Bilateral Throughout] Blood Pressure 97/64 109/70 O2 Sat by Pulse 96 96 Oximetry 04/14/20 04/14/20 04/14/20 09:00 09:19 09:30 Temperature Pulse Rate 96 H 97 H Pulse Rate [ Anterior Bilateral Throughout] Pulse Rate [ Apical] Pulse Rate [ From Monitor] Respiratory 20 21 Rate Respiratory Rate [Anterior Bilateral Throughout] Blood Pressure 123/84 115/75 105/72 O2 Sat by Pulse 85 88 Oximetry 04/14/20 04/14/20 04/14/20 10:00 10:30 10:38 Temperature Pulse Rate 91 H 87 97 H Pulse Rate [ Anterior Bilateral Throughout] Pulse Rate [ Apical] Pulse Rate [ From Monitor] Respiratory 20 19 28 H Rate Respiratory Rate [Anterior Bilateral Throughout] Blood Pressure 113/71 117/76 117/76 O2 Sat by Pulse 94 99 Oximetry 04/14/20 04/14/20 04/14/20 11:00 11:30 12:00 Temperature 97.3 F L Pulse Rate 91 H 89 108 H Pulse Rate [ Anterior Bilateral Throughout] Pulse Rate [ Apical] Pulse Rate [ 84 From Monitor] Respiratory 26 H 24 17 Rate Respiratory Rate [Anterior Bilateral Throughout] Blood Pressure 108/74 110/70 88/66 O2 Sat by Pulse 97 97 98 Oximetry 04/14/20 04/14/20 04/14/20 12:30 13:00 13:30 Temperature Pulse Rate 122 H 84 83 Pulse Rate [ Anterior Bilateral Throughout] Pulse Rate [ Apical] Pulse Rate [ From Monitor] Respiratory 19 19 20 Rate Respiratory Rate [Anterior Bilateral Throughout] Blood Pressure 115/92 122/81 124/82 O2 Sat by Pulse 96 95 96 Oximetry 04/14/20 14:00 Temperature Pulse Rate 83 Pulse Rate [ Anterior Bilateral Throughout] Pulse Rate [ Apical] Pulse Rate [ From Monitor] Respiratory 18 Rate Respiratory Rate [Anterior Bilateral Throughout] Blood Pressure 117/78 O2 Sat by Pulse 95 Oximetry - Lab 04/14/20 07:00 04/14/20 12:00 Most recent lab results ABG pH 7.384 pH Units (7.350-7.450) 04/14/20 04:38 ABG pCO2 36.2 mm Hg 04/14/20 04:38 ABG pO2 88.3 mm Hg (80.0-90.0) 04/14/20 04:38 ABG HCO3 21.1 mmol/L (20.0-26.0) 04/14/20 04:38 ABG O2 Saturation 97.0 % (95.0-99.0) 04/14/20 04:38 Calcium 8.4 mg/dL (8.4-10.2) 04/14/20 12:00 Phosphorus 6.70 mg/dL (2.5-4.5) H 04/14/20 12:00 Magnesium 2.40 mg/dL (1.7-2.3) H 04/14/20 12:00 Urine Creatinine 60.0 mg/dL (0.1-20.0) H 04/11/20 16:30 Urine Sodium 26 mmol/L 04/11/20 16:30 Medications & Allergies - Medications Allergies/Adverse Reactions: Allergies No Known Allergies Allergy (Unverified 03/18/20 15:17) Home Medications: Home Medications Medication Instructions Recorded Confirmed Last Taken Type AtorvaSTATin [Lipitor] 20 mg PO QHS 03/20/20 03/20/20 03/14/20 History Clopidogrel [Plavix] 75 mg PO QHS 03/20/20 03/20/20 03/14/20 History Famotidine [Acid Controller] 20 mg PO BID 03/20/20 03/20/20 03/14/20 History Fenofibrate Nanocrystallized 48 mg PO DAILY 03/20/20 03/20/20 03/14/20 History [Fenofibrate] Metoprolol Tartrate 25 mg PO BID 03/20/20 03/20/20 03/14/20 History Pregabalin [Lyrica] 150 mg PO BID 03/20/20 03/20/20 03/14/20 History amLODIPine [Norvasc] 5 mg PO DAILY 03/20/20 03/20/20 03/14/20 History glipiZIDE [Glucotrol] 10 mg PO BID 03/20/20 03/20/20 03/14/20 History hydroCHLOROthiazide [HCTZ] 25 mg PO QDAY 03/20/20 03/20/20 03/14/20 History lisinopriL [Zestril TAB] 40 mg PO QDAY 03/20/20 03/20/20 03/14/20 History Active Medications: Generic Name Dose Route Start Last Admin Trade Name Freq PRN Reason Stop Dose Admin Albuterol 2.5 mg 04/01/20 00:03 Proventil IH Q6HRT PRN Shortness Of Breath Lipase/Protease/Amylase 1 each 04/10/20 17:39 Pancrecarroll [place] 10,500 Unit FEEDTUBE PRN PRN For Clogged Feeding Tube Arformoterol Tartrate 15 mcg 03/19/20 20:00 04/14/20 07:54 Brovana Nebu IH 15 mcg Q12HRT LOI Administration Aspirin 81 mg 04/10/20 16:00 04/14/20 09:19 Halfprin Ec PO 81 mg QDAY LOI Administration Atorvastatin Calcium 40 mg 03/19/20 22:00 04/13/20 23:00 Lipitor PO 40 mg QHS LOI Administration Budesonide 0.5 mg 03/19/20 20:00 04/14/20 07:54 Pulmicort IH 0.5 mg Q12HRT LOI Administration Clopidogrel Bisulfate 75 mg 03/19/20 10:00 04/14/20 09:19 Plavix PO 75 mg QDAY LOI Administration Dextrose 50 ml 03/18/20 22:21 04/08/20 07:42 D50w (25gm) Syringe IV 50 ml Q30MIN PRN Administration Hypoglycemia Protocol Diphenhydramine HCl 25 mg 03/19/20 12:44 Benadryl IV Q4H PRN Itching Fentanyl 50 mcg 04/11/20 20:22 Sublimaze IV Q10MIN PRN ANALGESIA Hydrophilic Ointment 1 applic 04/11/20 20:22 Vaseline Lip Therapy TP Q2HR PRN Dry Lips Norepinephrine 4 mg in 250 mls @ 7.5 mls/hr 04/11/20 18:00 04/14/20 14:08 Levophed Drip 4 Mg/Ns 250 Ml IV 14 mcg/min TITR LOI 52.5 mls/hr Titration Protocol 2 MCG/MIN Fentanyl Citrate 2,000 mcg in 100 mls @ 6.405 mls/hr 04/11/20 21:00 Fentanyl Drip Premix IV TITR LOI Protocol 1 MCG/KG/HR Cefepime HCl 1 gm in 100 mls @ 200 mls/hr 04/15/20 10:00 Cefepime/Ns 1 Gm/100 Ml IV Q24HR LOI Protocol Amiodarone HCl 900 mg/ 500 mls @ 33.333 mls/hr 04/14/20 12:00 04/14/20 12:27 Dextrose IV 1 mg/min DIRECT LOI 33.333 mls/hr Administration Protocol 1 MG/MIN Insulin Human Isoph/Insulin Regular 5 unit 04/14/20 11:00 04/14/20 10:27 Humulin 70/30 SUB-Q 5 unit BIDDIAB LOI Administration Insulin Human Lispro 0 unit 04/12/20 00:00 04/14/20 12:40 Humalog SUB-Q 8 unit Q6HR LOI Administration Protocol Ipratropium [place] 0.5 mg 04/01/20 00:05 Atrovent IH Q6HRT PRN Shortness Of Breath Lansoprazole 30 mg 04/12/20 10:00 04/14/20 09:19 Prevacid Solutab FEEDTUBE 30 mg BID LOI Administration Magnesium Hydroxide 30 ml 03/18/20 22:21 Milk Of Magnesia PO Q4H PRN Constipation Metoprolol Tartrate 50 mg 03/19/20 22:00 04/14/20 09:19 Metoprolol PO 50 mg BID LOI Administration Multi-Ingred Cream/Lotion/Oil/Oint 1 applic 04/11/20 20:22 Artificial Tears Ophth Oint OU Q4HR PRN Dry Eye(s) Naloxone HCl 0.1 mg 03/19/20 12:44 Naloxone IV Q2MIN PRN Res Rate </= 8 or 02 SAT < 92% Ondansetron HCl 4 mg 03/18/20 22:21 04/05/20 01:46 Zofran IV 4 mg Q8H PRN Administration Nausea And Vomiting Simple Syrup 15 ml 04/10/20 17:39 Simple Syrup FEEDTUBE PRN PRN Hypoglycemia Simple Syrup 30 ml 04/10/20 17:39 Simple Syrup FEEDTUBE PRN PRN Hypoglycemia Sodium Bicarbonate 325 mg 04/10/20 17:39 Sodium Bicarbonate FEEDTUBE PRN PRN For Clogged Feeding Tube Sodium Chloride 10 ml 03/19/20 10:00 04/14/20 09:20 Sodium Chloride Flush Syringe 10 Ml IV 10 ml BID LOI Administration Sodium Chloride 10 ml 03/18/20 22:21 04/11/20 05:57 Sodium Chloride Flush Syringe 10 Ml IV 10 ml PRN PRN Administration LINE FLUSH
--- NOTE | 2020-04-14 15:28 | Progress Note ---
Assessment and Plan Echo 03/20/2020 - EF 30-35%; akinetic mid inferolateral, mid inferior, apical lateral, and apical inferior wall segments. Repeat ECG. Cont PO Lopressor 50mg BID with close monitoring of VS. Wean Amio drip. Wean pressors as tolerated. Cont other present mgmt. Prognosis remains guarded. Pt seen in conjunction with Dr. MATILDA Jimenes, who agrees with the assessment and plan of care. - Patient Problems (1) Acute respiratory failure with hypoxia Current Visit: Yes Status: Acute (2) Septic shock Current Visit: Yes Status: Acute (3) Cardiopulmonary arrest Current Visit: Yes Status: Acute (4) NSVT (nonsustained ventricular tachycardia) Current Visit: Yes Status: Acute (5) Cardiomyopathy Current Visit: Yes Status: Acute (6) DYLON (acute kidney injury) Current Visit: Yes Status: Acute (7) Hypermagnesemia Current Visit: Yes Status: Acute (8) Hyperphosphatemia Current Visit: Yes Status: Acute (9) Anemia Current Visit: Yes Status: Acute (10) Elevated LFTs Current Visit: Yes Status: Acute (11) NSTEMI (non-ST elevated myocardial infarction) Current Visit: Yes Status: Acute Plan to address problem: Type 2 (12) CAD (coronary artery disease) Current Visit: Yes Status: Chronic (13) History of coronary artery bypass graft Current Visit: Yes Status: Chronic (14) HTN (hypertension) Current Visit: Yes Status: Chronic Qualifiers: Hypertension type: essential hypertension Qualified Code(s): I10 - Essential (primary) hypertension (15) DM2 (diabetes mellitus, type 2) Current Visit: Yes Status: Chronic (16) PAD (peripheral artery disease) Current Visit: Yes Status: Chronic (17) Arterial occlusion, lower extremity Current Visit: Yes Status: Acute (18) S/P BKA (below knee amputation) Current Visit: Yes Status: Chronic (19) STARR (obstructive sleep apnea) Current Visit: Yes Status: Chronic (20) Tobacco abuse Current Visit: Yes Status: Chronic (21) History of CVA (cerebrovascular accident) Current Visit: Yes Status: Chronic Subjective Date of service: 04/14/20 Principal diagnosis: Septic Shock/Cardiopulmonary Arrest Interval history: Pt remains intubated, on pressors. Intermittent runs of VT noted 04/14 @ 1200. Pt was subsequently restarted on Amio drip. Currently NSR 80s. Objective Last Vital Signs Temp 97.3 F L 04/14/20 12:00 Pulse 83 04/14/20 14:00 Resp 18 04/14/20 14:00 BP 117/78 04/14/20 14:00 Pulse Ox 95 04/14/20 14:00 - Physical Examination General: Other (intubated) HEENT: Positive: Normocephaly Neck: Negative: JVD/HJR Cardiac: Positive: Other (intermittent VT) Lungs: Positive: Decreased Breath Sounds Neuro: Positive: Other (intubated, unresponsive) Abdomen: Positive: Soft, Active Bowel Sounds Skin: Negative: Rash Musculoskeletal: other (s/p left BKA) Extremities: Present: upper extr. pulses, lower extr. pulses, Other (LLE pain, numbness, pale). Absent: edema - Labs and Meds Cardiac Enzymes 04/14/20 Range/Units 07:00 AST 176 H (5-40) units/L Coagulation 04/14/20 Range/Units 07:00 PT 24.3 H (12.2-14.9) Sec. INR 2.15 H (0.87-1.13) CBC 04/14/20 Range/Units 07:00 Hgb 7.8 L (11.8-15.2) gm/dl Hct 25.3 L (35.5-45.6) % Comprehensive Metabolic Panel 04/14/20 04/14/20 Range/Units 07:00 12:00 Sodium 145 145 (137-145) mmol/L Potassium 5.0 4.7 (3.6-5.0) mmol/L Chloride 106.6 108.0 H (98-107) mmol/L Carbon Dioxide 20 L 17 L (22-30) mmol/L BUN 151 H 135 H (9-20) mg/dL Creatinine 4.1 H 3.9 H (0.8-1.3) mg/dL Glucose 266 H 265 H (75-100) mg/dL Calcium 7.7 L 8.4 (8.4-10.2) mg/dL AST 176 H (5-40) units/L ALT 123 H (7-56) units/L Alkaline Phosphatase 259 H (35-129) units/L Total Protein 5.5 L (6.3-8.2) g/dL Albumin 2.1 L (3.9-5) g/dL - Imaging and Cardiology EKG: report reviewed, image reviewed Echo: report reviewed (03/20/2020 - EF 30-35%; akinetic mid inferolateral, mid inferior, apical lateral, and apical inferior wall segments), other (12/2014 - EF 55-60%, no significant valvular abnormalities) - Telemetry EKG Rhythm: V-Tachycardia - EKG Sinus rhythms and dysrhythmias: sinus rhythm Repolarization changes or abnormalities: nonspecific abnormality, ST segment, and/or T wave - Allied health notes Allied health notes reviewed: RT
[2020-04-14] MEDS ORDERED: LIDOCAINE DRIP 2,000 MG/500 ML BAG IV SCH (17:00)
--- NOTE | 2020-04-14 17:18 | Event Note ---
Date: 04/14/20 Around 12:00 noon patient was noted to have V-Tach. Hypotension. Intermittent V. tach with heart rate in 160s to 180s and sinus rhythm,. Patient was on amiodarone drip yesterday for V. tach, however due to bradyarrhythmias amiodarone drip was discontinued. Bolus amnio followed by drip started, by social work case manager who attended the call. Patient also received calcium chloride. I informed the above event with patient's 2 sons Abhishek Obrien and Mehran Obrien, they requested to continue full CODE STATUS Around 4:00 pm patient was in V. tach /V. fib rhythm. Patient is already on amiodarone drip, amiodarone bolus given, continue to have intermittent V. tach Requiring cardioversion, Lidocaine bolus and lidocaine drip , discussed with on- call able bodied watchman Dr. López Jimenes, advised , to monitor the patient With the current management .Patient is critically ill with very poor prognosis, anoxic brain injury and multiorgan involvement. We will closely monitor and adjust management as needed. Full CODE STATUS per family
[2020-04-15] MEDS: INSULIN LISPRO 100 UNIT/ML VIAL 3 mL SUB-Q SCH ×4 (00:21→19:11)
[2020-04-15] MEDS: NORepinephrine/NS 4 MG-250 ML 4 MG/250 ML BAG IV SCH ×4 (01:18→23:43)
[2020-04-15] MEDS: AMIODARONE 900 MG in DEXTROSE 5% IN WATER 482 ML IV SCH ×2 (02:34→15:57)
--- NOTE | 2020-04-15 03:30 | XRay Report ---
CHEST 1 VIEW INDICATION: follow up respiratory failure. COMPARISON: 04/14/2020 FINDINGS: Support devices: Unchanged. Heart: Stable cardiomegaly. Lungs/Pleura: Decreasing aeration the basis of mild increasing opacity. Mild increasing vascular jerica estion. Additional findings: None. IMPRESSION: Mild worsening. Signer Name: Osmani Condon MD Signed: 04/15/2020 3:26 AM Workstation Name: [id number]
[2020-04-15 04:51] LABS: ABG Base Excess -4.1 mmol/L (-2.0-3.0); ABG HCO3 19.9 mmol/L (20.0-26.0); ABG Methemoglobin 0.6 % (0.0-1.5); ABG Oxygen Saturation 97.1 % (95.0-99.0); ABG PCO2 31.6 mm Hg; ABG PH 7.418 pH Units (7.350-7.450); ABG PO2 86.7 mm Hg (80.0-90.0)
[2020-04-15 05:41] LABS: Calcium 7.8 mg/dL (8.4-10.2)
[2020-04-15] MEDS: BUDESONIDE 0.5 MG/2 ML NEBU IH SCH ×2 (08:08→20:08)
[2020-04-15] MEDS: ARFORMOTEROL 15 MCG/2 ML NEBU IH SCH ×2 (08:08→20:08)
[2020-04-15] MEDS: INSULIN NPH/REGULAR 70/30 INJ SUB-Q SCH ×2 (08:15→16:32)
[2020-04-15] MEDS: ASPIRIN EC 81 MG TAB PO SCH (09:32)
[2020-04-15] MEDS: LANSOPRAZOLE 30 MG SOLUTAB FEEDTUBE SCH ×2 (09:32→21:39)
[2020-04-15] MEDS: CLOPIDOGREL 75 MG TAB PO SCH (09:32)
[2020-04-15] MEDS: METOPROLOL TARTRATE 50 MG TAB PO SCH ×2 (09:33→21:39)
[2020-04-15] MEDS: CEFEPIME/NS 1 GM/100 ML 1 GM/100 ML BAG IV SCH (09:33)
[2020-04-15] MEDS ORDERED: ALBUMIN HUMAN 5% (25 GM/500 ML) INJ IV NR (10:38)
--- NOTE | 2020-04-15 12:45 | Progress Note ---
Assessment and Plan 1. Acute kidney injury: Vasomotor DYLON in the setting of sepsis and hypotension. US negative for hydro. UA results noted. Monitor renal function. Creatinine level continue to increase. Avoid nephrotoxic agents. Meds dosage based on GFR. Monitor for [employer] needs. No acute indication for [employer] today. Due to continued decline in the renal function patient eventually will require hemodialysis. I think it is risky to put him on hemodialysis at this point due to shock requiring pressors and intermittent V.tach. Discussed above with his son over the phone who agrees with the plan. 2. FEN: Hyperkalemia, kayexalate ordered, monitor. Metabolic acidosis, monitor. Hypernatremia, improved with water flushes, monitor. Monitor lytes and volume status. 3. Sepsis: PNA vs L stump infection. Followed by ID. 4. Shock / Hypotension: On Levophed. Monitor BP. 5. Acute hypoxic respiratory failure: Intubated 04/11, on vent. 6. s/p Cardiac arrest. 7. Acute left lower extremity ischemia: 03/19/2020 status post endovascular revascularization. 03/19/2020 s/p left lower extremity 4 compartment fasciotomy. 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 8. Non-ST elevation VT : H/o CAD s/p CABG. Followed by Cards. 9. Acute systolic CHF; EF 30-35%: Beta-blockers. 10. Intermittent V.tach: On IV Amio and PO Metoprolol. 11. Acute metabolic encephalopathy: Multifactorial. Seen by Neurology. 12. Elevated Transaminases: Improving. Seen by GI. 13. DM with hyperglycemia: Accu-Check, sliding scale coverage, ADA diet. HbA1C 11. 14. Anemia: Closely monitor and transfuse as needed. - Subjective: Patient was seen and examined at the bedside. In ICU. D/w RN at the bedside. - General Appearance General appearance: well-developed, obese, appears stated age, intubated, on vent HEENT: ATNC, ROSIBEL Neck: Trachea midline Respiratory: appears ctab Cardiology: regular, S1S2, no murmur Gastrointestinal: soft, not tender, not distended, BS heard Integumentary: L BKA dressing Neurologic: not responding Ext: extremity edema noted : acosta catheter, scrotal edema noted Subjective Date of service: 04/15/20 Principal diagnosis: Septic Shock/Cardiopulmonary Arrest Objective - Vital Signs Vital signs: Vital Signs - 12hr 04/15/20 04/15/20 04/15/20 01:00 01:30 02:00 Temperature Pulse Rate 72 72 71 Pulse Rate [ Anterior Bilateral Throughout] Pulse Rate [ From Monitor] Pulse Rate [ Left Lower Lobe ] Respiratory 20 20 20 Rate Respiratory Rate [Anterior Bilateral Throughout] Respiratory Rate [Left Lower Lobe] Blood Pressure 101/67 104/69 99/65 O2 Sat by Pulse 97 97 97 Oximetry 04/15/20 04/15/20 04/15/20 02:30 03:00 03:30 Temperature 99 F Pulse Rate 71 71 71 Pulse Rate [ Anterior Bilateral Throughout] Pulse Rate [ From Monitor] Pulse Rate [ Left Lower Lobe ] Respiratory 21 18 16 Rate Respiratory Rate [Anterior Bilateral Throughout] Respiratory Rate [Left Lower Lobe] Blood Pressure 101/65 108/71 107/70 O2 Sat by Pulse 97 98 99 Oximetry 04/15/20 04/15/20 04/15/20 04:00 04:15 04:19 Temperature Pulse Rate 71 70 69 Pulse Rate [ Anterior Bilateral Throughout] Pulse Rate [ 71 From Monitor] Pulse Rate [ Left Lower Lobe ] Respiratory 17 20 Rate Respiratory Rate [Anterior Bilateral Throughout] Respiratory Rate [Left Lower Lobe] Blood Pressure 106/71 105/72 O2 Sat by Pulse 96 97 Oximetry 04/15/20 04/15/20 04/15/20 04:30 04:31 04:45 Temperature Pulse Rate 75 72 73 Pulse Rate [ Anterior Bilateral Throughout] Pulse Rate [ From Monitor] Pulse Rate [ Left Lower Lobe ] Respiratory 19 16 Rate Respiratory Rate [Anterior Bilateral Throughout] Respiratory Rate [Left Lower Lobe] Blood Pressure 105/72 105/72 O2 Sat by Pulse 97 99 98 Oximetry 04/15/20 04/15/20 04/15/20 05:00 05:15 05:30 Temperature Pulse Rate 74 73 74 Pulse Rate [ Anterior Bilateral Throughout] Pulse Rate [ From Monitor] Pulse Rate [ Left Lower Lobe ] Respiratory 16 17 17 Rate Respiratory Rate [Anterior Bilateral Throughout] Respiratory Rate [Left Lower Lobe] Blood Pressure 119/82 102/81 119/85 O2 Sat by Pulse 98 98 98 Oximetry 04/15/20 04/15/20 04/15/20 05:45 06:00 06:15 Temperature Pulse Rate 74 75 74 Pulse Rate [ Anterior Bilateral Throughout] Pulse Rate [ From Monitor] Pulse Rate [ Left Lower Lobe ] Respiratory 18 17 19 Rate Respiratory Rate [Anterior Bilateral Throughout] Respiratory Rate [Left Lower Lobe] Blood Pressure 127/84 130/76 127/81 O2 Sat by Pulse 98 98 97 Oximetry 04/15/20 04/15/20 04/15/20 06:31 06:45 07:00 Temperature Pulse Rate 74 71 70 Pulse Rate [ Anterior Bilateral Throughout] Pulse Rate [ From Monitor] Pulse Rate [ Left Lower Lobe ] Respiratory 12 15 16 Rate Respiratory Rate [Anterior Bilateral Throughout] Respiratory Rate [Left Lower Lobe] Blood Pressure 130/76 130/76 89/57 O2 Sat by Pulse 91 100 99 Oximetry 04/15/20 04/15/20 04/15/20 07:15 07:30 07:45 Temperature Pulse Rate 69 69 70 Pulse Rate [ Anterior Bilateral Throughout] Pulse Rate [ From Monitor] Pulse Rate [ Left Lower Lobe ] Respiratory 20 15 19 Rate Respiratory Rate [Anterior Bilateral Throughout] Respiratory Rate [Left Lower Lobe] Blood Pressure 92/59 94/59 98/63 O2 Sat by Pulse 100 100 100 Oximetry 04/15/20 04/15/20 04/15/20 07:51 08:00 08:05 Temperature 97.2 F L Pulse Rate 70 69 Pulse Rate [ 69 Anterior Bilateral Throughout] Pulse Rate [ 70 From Monitor] Pulse Rate [ 69 Left Lower Lobe ] Respiratory 16 Rate Respiratory 21 Rate [Anterior Bilateral Throughout] Respiratory 21 Rate [Left Lower Lobe] Blood Pressure 98/63 90/60 O2 Sat by Pulse 98 100 Oximetry 04/15/20 04/15/20 04/15/20 08:15 08:30 08:45 Temperature Pulse Rate 70 70 71 Pulse Rate [ Anterior Bilateral Throughout] Pulse Rate [ From Monitor] Pulse Rate [ Left Lower Lobe ] Respiratory 18 14 12 Rate Respiratory Rate [Anterior Bilateral Throughout] Respiratory Rate [Left Lower Lobe] Blood Pressure 100/63 101/65 99/65 O2 Sat by Pulse 100 97 100 Oximetry 04/15/20 04/15/20 04/15/20 09:00 09:15 09:30 Temperature Pulse Rate 70 70 70 Pulse Rate [ Anterior Bilateral Throughout] Pulse Rate [ From Monitor] Pulse Rate [ Left Lower Lobe ] Respiratory 14 18 17 Rate Respiratory Rate [Anterior Bilateral Throughout] Respiratory Rate [Left Lower Lobe] Blood Pressure 101/66 99/62 97/61 O2 Sat by Pulse 100 99 98 Oximetry 04/15/20 04/15/20 04/15/20 09:45 10:00 10:15 Temperature Pulse Rate 71 71 71 Pulse Rate [ Anterior Bilateral Throughout] Pulse Rate [ From Monitor] Pulse Rate [ Left Lower Lobe ] Respiratory 17 16 15 Rate Respiratory Rate [Anterior Bilateral Throughout] Respiratory Rate [Left Lower Lobe] Blood Pressure 96/63 96/63 98/59 O2 Sat by Pulse 98 96 98 Oximetry 04/15/20 11:31 Temperature Pulse Rate 73 Pulse Rate [ Anterior Bilateral Throughout] Pulse Rate [ From Monitor] Pulse Rate [ Left Lower Lobe ] Respiratory 15 Rate Respiratory Rate [Anterior Bilateral Throughout] Respiratory Rate [Left Lower Lobe] Blood Pressure 109/75 O2 Sat by Pulse 96 Oximetry - Lab 04/14/20 07:00 04/15/20 04:57 Most recent lab results ABG pH 7.418 pH Units (7.350-7.450) 04/15/20 04:34 ABG pCO2 31.6 mm Hg 04/15/20 04:34 ABG pO2 86.7 mm Hg (80.0-90.0) 04/15/20 04:34 ABG HCO3 19.9 mmol/L (20.0-26.0) L 04/15/20 04:34 ABG O2 Saturation 97.1 % (95.0-99.0) 04/15/20 04:34 Calcium 7.8 mg/dL (8.4-10.2) L 04/15/20 04:57 Phosphorus 6.70 mg/dL (2.5-4.5) H 04/14/20 12:00 Magnesium 2.40 mg/dL (1.7-2.3) H 04/14/20 12:00 Urine Creatinine 60.0 mg/dL (0.1-20.0) H 04/11/20 16:30 Urine Sodium 26 mmol/L 04/11/20 16:30 Medications & Allergies - Medications Allergies/Adverse Reactions: Allergies No Known Allergies Allergy (Unverified 03/18/20 15:17) Home Medications: Home Medications Medication Instructions Recorded Confirmed Last Taken Type AtorvaSTATin [Lipitor] 20 mg PO QHS 03/20/20 03/20/20 03/14/20 History Clopidogrel [Plavix] 75 mg PO QHS 03/20/20 03/20/20 03/14/20 History Famotidine [Acid Controller] 20 mg PO BID 03/20/20 03/20/2020 History Fenofibrate Nanocrystallized 48 mg PO DAILY 03/20/20 03/20/20 03/14/20 History [Fenofibrate] Metoprolol Tartrate 25 mg PO BID 03/20/20 03/20/20 03/14/20 History Pregabalin [Lyrica] 150 mg PO BID 03/20/20 03/20/20 03/14/20 History amLODIPine [Norvasc] 5 mg PO DAILY 03/20/20 03/20/20 03/14/20 History glipiZIDE [Glucotrol] 10 mg PO BID 03/20/20 03/20/20 03/14/20 History hydroCHLOROthiazide [HCTZ] 25 mg PO QDAY 03/20/20 03/20/20 03/14/20 History lisinopriL [Zestril TAB] 40 mg PO QDAY 03/20/20 03/20/20 03/14/20 History Active Medications: Generic Name Dose Route Start Last Admin Trade Name Freq PRN Reason Stop Dose Admin Albumin Human 25 gm 04/15/20 10:38 04/15/20 12:37 Albutein IV 04/15/20 15:00 25 gm ONCE NR Administration Albuterol 2.5 mg 04/01/20 00:03 Proventil IH Q6HRT PRN Shortness Of Breath Lipase/Protease/Amylase 1 each 04/10/20 17:39 Pancrecarroll [place] 10,500 Unit FEEDTUBE PRN PRN For Clogged Feeding Tube Arformoterol Tartrate 15 mcg 03/19/20 20:00 04/15/20 08:08 Brovana Nebu IH 15 mcg Q12HRT LOI Administration Aspirin 81 mg 04/10/20 16:00 04/15/20 09:32 Halfprin Ec PO 81 mg QDAY LOI Administration Atorvastatin Calcium 40 mg 03/19/20 22:00 04/14/20 21:19 Lipitor PO 40 mg QHS LOI Administration Budesonide 0.5 mg 03/19/20 20:00 04/15/20 08:08 Pulmicort IH 0.5 mg Q12HRT LOI Administration Clopidogrel Bisulfate 75 mg 03/19/20 10:00 04/15/20 09:32 Plavix PO 75 mg QDAY LOI Administration Dextrose 50 ml 03/18/20 22:21 04/08/20 07:42 D50w (25gm) Syringe IV 50 ml Q30MIN PRN Administration Hypoglycemia Protocol Diphenhydramine HCl 25 mg 03/19/20 12:44 Benadryl IV Q4H PRN Itching Fentanyl 50 mcg 04/11/20 20:22 Sublimaze IV Q10MIN PRN ANALGESIA Hydrophilic Ointment 1 applic 04/11/20 20:22 Vaseline Lip Therapy TP Q2HR PRN Dry Lips Norepinephrine 4 mg in 250 mls @ 7.5 mls/hr 04/11/20 18:00 04/15/20 11:21 Levophed Drip 4 Mg/Ns 250 Ml IV 8 mcg/min TITR LOI 30 mls/hr Administration Protocol 2 MCG/MIN Fentanyl Citrate 2,000 mcg in 100 mls @ 6.405 mls/hr 04/11/20 21:00 Fentanyl Drip Premix IV TITR LOI Protocol 1 MCG/KG/HR Cefepime HCl 1 gm in 100 mls @ 200 mls/hr 04/15/20 10:00 04/15/20 09:33 Cefepime/Ns 1 Gm/100 Ml IV 200 mls/hr Q24HR LOI Administration Protocol Amiodarone HCl 900 mg/ 500 mls @ 33.333 mls/hr 04/14/20 12:00 04/15/20 02:34 Dextrose IV 1 mg/min DIRECT LOI 33.333 mls/hr Administration Protocol 1 MG/MIN Lidocaine HCl/Dextrose 2,000 mg in 500 mls @ 15 mls/hr 04/14/20 17:00 04/15/20 04:45 Xylocaine/D5w 2gm/500ml Drip IV 0 mg/min DIRECT LOI 0 mls/hr Titration Protocol 1 MG/MIN Insulin Human Isoph/Insulin Regular 5 unit 04/14/20 11:00 04/15/20 08:15 Humulin 70/30 SUB-Q 5 unit BIDDIAB LOI Administration Insulin Human Lispro 0 unit 04/12/20 00:00 04/15/20 12:38 Humalog SUB-Q 8 unit Q6HR LOI Administration Protocol Ipratropium [place] 0.5 mg 04/01/20 00:05 Atrovent IH Q6HRT PRN Shortness Of Breath Lansoprazole 30 mg 04/12/20 10:00 04/15/20 09:32 Prevacid Solutab FEEDTUBE 30 mg BID LOI Administration Magnesium Hydroxide 30 ml 03/18/20 22:21 Milk Of Magnesia PO Q4H PRN Constipation Metoprolol Tartrate 50 mg 03/19/20 22:00 04/15/20 09:33 Metoprolol PO Not Given BID LOI Multi-Ingred Cream/Lotion/Oil/Oint 1 applic 04/11/20 20:22 Artificial Tears Ophth Oint OU Q4HR PRN Dry Eye(s) Naloxone HCl 0.1 mg 03/19/20 12:44 Naloxone IV Q2MIN PRN Res Rate </= 8 or 02 SAT < 92% Ondansetron HCl 4 mg 03/18/20 22:21 04/05/20 01:46 Zofran IV 4 mg Q8H PRN Administration Nausea And Vomiting Simple Syrup 15 ml 04/10/20 17:39 Simple Syrup FEEDTUBE PRN PRN Hypoglycemia Simple Syrup 30 ml 04/10/20 17:39 Simple Syrup FEEDTUBE PRN PRN Hypoglycemia Sodium Bicarbonate 325 mg 04/10/20 17:39 Sodium Bicarbonate FEEDTUBE PRN PRN For Clogged Feeding Tube Sodium Chloride 10 ml 03/19/20 10:00 04/15/20 09:33 Sodium Chloride Flush Syringe 10 Ml IV 10 ml BID LOI Administration Sodium Chloride 10 ml 03/18/20 22:21 04/11/20 05:57 Sodium Chloride Flush Syringe 10 Ml IV 10 ml PRN PRN Administration LINE FLUSH
--- NOTE | 2020-04-15 13:01 | Progress Note ---
Assessment and Plan Cardiopulmonary arrest with ROSC, orally intubated on MVS; Severe sepsis with septic shock Acute limb ischemia S/P revascularization surgery s/p Left BKA Obstructive sleep apnea. History of chronic obstructive pulmonary disease. Diabetes. History of coronary artery disease. Non-ST elevation myocardial infarction. Acute coronary syndrome. History of cerebrovascular accident. Acute renal failure, vasomotor nephropathy/ATN -Wean vasopressor support for MAP >65 -Change stress ulcer prophylaxis to therapeutic Pantoprazole- blood stained stool per RN - continue to hold full anticoagulation re: risk of hemorrhagic transformation of acute stroke - Daily SAT and SBT assessment as tolerated - continue to wean supplemental oxygen for target O2 sats > 90% -Worsening renal function, Renal service following. Continue to avoid nephrotoxins, and dose all medications for GFR and CrCL - VAP bundle addressed - continue lung protective strategies - continue bronchodilators with pulmonary hygiene per RT - wean per pulmonary driven protocols otherwise -Antibiotics, de-escalate as clinically indicated ( currently on Cefepime) - continue wound care per WCN / RN - accuchecks with glycemic control per SSI (While critically ill target blood glucose of 140-180 mg/dL; avoid hypoglycemia) - prn bronchodilators with pulmonary hygiene per RT - avoid benzodiazepines, reduce the possibility of delirium - Maintenance of sleep-wake cycle, avoid delirium - aspiration precautions - mobility protocol, off loading for pressure ulcer prevention- has Stage 2 sacral decub, wound care consulted - Monitor hemodynamics closely CONDITION: CRITICAL PROGNOSIS: GUARDED-GRAVE CODE STATUS: FULL CODE The high probability of a clinically significant, sudden or life-threatening deterioration of the [respiratory, cardiovascular & neurologic] system(s) required my full and direct attention, intervention and personal management. The aggregate critical care time was [35] minutes without overlap. Time includes spent on; [x] Data Review and interpretation [x] Patient assessment and monitoring of vital signs [x] Documentation [x] Medication orders and management Subjective Date of service: 04/15/20 Principal diagnosis: Septic Shock/Cardiopulmonary Arrest Interval history: Patient is seen today for: Cardiopulmonary arrest with ROSC, orally intubated on MVS; Acute limb ischemia S/P revascularization surgery; STARR; COPD; Acute hypoxemic respiratory failure; DM II; NSTEMI; H/O CVA Seen and examined at bedside; 24hour events reviewed; nursing and respiratory care staff consulted; no adverse overnight events reported to me; resting peacefully in bed; decompensated during MRI a few days ago and s/p CODE BLUE; now on MVS; no emesis or overt aspiration; MRI documented acute/subacute infarct without hemorrhagic transformation Remains on Norepoinephrine at 8mcg, Tyosn catheter , with 100cc of urine overnight and PICC line in place ( LUxet) Amiodraone infusion at 1mg, lidocaine infusion was discontinued No fevers, tolerating tube feedings AC-VC 20/450/30% +6 ABG 7.42/32/87/20 Objective Vital Signs - 12hr 04/15/20 04/15/20 04/15/20 01:30 02:00 02:30 Temperature Pulse Rate 72 71 71 Pulse Rate [ Anterior Bilateral Throughout] Pulse Rate [ From Monitor] Pulse Rate [ Left Lower Lobe ] Respiratory 20 20 21 Rate Respiratory Rate [Anterior Bilateral Throughout] Respiratory Rate [Left Lower Lobe] Blood Pressure 104/69 99/65 101/65 O2 Sat by Pulse 97 97 97 Oximetry 04/15/20 04/15/20 04/15/20 03:00 03:30 04:00 Temperature 99 F Pulse Rate 71 71 71 Pulse Rate [ Anterior Bilateral Throughout] Pulse Rate [ 71 From Monitor] Pulse Rate [ Left Lower Lobe ] Respiratory 18 16 17 Rate Respiratory Rate [Anterior Bilateral Throughout] Respiratory Rate [Left Lower Lobe] Blood Pressure 108/71 107/70 106/71 O2 Sat by Pulse 98 99 96 Oximetry 04/15/20 04/15/20 04/15/20 04:15 04:19 04:30 Temperature Pulse Rate 70 69 75 Pulse Rate [ Anterior Bilateral Throughout] Pulse Rate [ From Monitor] Pulse Rate [ Left Lower Lobe ] Respiratory 20 Rate Respiratory Rate [Anterior Bilateral Throughout] Respiratory Rate [Left Lower Lobe] Blood Pressure 105/72 O2 Sat by Pulse 97 97 Oximetry 04/15/20 04/15/20 04/15/20 04:31 04:45 05:00 Temperature Pulse Rate 72 73 74 Pulse Rate [ Anterior Bilateral Throughout] Pulse Rate [ From Monitor] Pulse Rate [ Left Lower Lobe ] Respiratory 19 16 16 Rate Respiratory Rate [Anterior Bilateral Throughout] Respiratory Rate [Left Lower Lobe] Blood Pressure 105/72 105/72 119/82 O2 Sat by Pulse 99 98 98 Oximetry 04/15/20 04/15/20 04/15/20 05:15 05:30 05:45 Temperature Pulse Rate 73 74 74 Pulse Rate [ Anterior Bilateral Throughout] Pulse Rate [ From Monitor] Pulse Rate [ Left Lower Lobe ] Respiratory 17 17 18 Rate Respiratory Rate [Anterior Bilateral Throughout] Respiratory Rate [Left Lower Lobe] Blood Pressure 102/81 119/85 127/84 O2 Sat by Pulse 98 98 98 Oximetry 04/15/20 04/15/20 04/15/20 06:00 06:15 06:31 Temperature Pulse Rate 75 74 74 Pulse Rate [ Anterior Bilateral Throughout] Pulse Rate [ From Monitor] Pulse Rate [ Left Lower Lobe ] Respiratory 17 19 12 Rate Respiratory Rate [Anterior Bilateral Throughout] Respiratory Rate [Left Lower Lobe] Blood Pressure 130/76 127/81 130/76 O2 Sat by Pulse 98 97 91 Oximetry 04/15/20 04/15/20 04/15/20 06:45 07:00 07:15 Temperature Pulse Rate 71 70 69 Pulse Rate [ Anterior Bilateral Throughout] Pulse Rate [ From Monitor] Pulse Rate [ Left Lower Lobe ] Respiratory 15 16 20 Rate Respiratory Rate [Anterior Bilateral Throughout] Respiratory Rate [Left Lower Lobe] Blood Pressure 130/76 89/57 92/59 O2 Sat by Pulse 100 99 100 Oximetry 04/15/20 04/15/20 04/15/20 07:30 07:45 07:51 Temperature Pulse Rate 69 70 70 Pulse Rate [ Anterior Bilateral Throughout] Pulse Rate [ From Monitor] Pulse Rate [ Left Lower Lobe ] Respiratory 15 19 Rate Respiratory Rate [Anterior Bilateral Throughout] Respiratory Rate [Left Lower Lobe] Blood Pressure 94/59 98/63 98/63 O2 Sat by Pulse 100 100 98 Oximetry 04/15/20 04/15/20 04/15/20 08:00 08:05 08:15 Temperature 97.2 F L Pulse Rate 69 70 Pulse Rate [ 69 Anterior Bilateral Throughout] Pulse Rate [ 70 From Monitor] Pulse Rate [ 69 Left Lower Lobe ] Respiratory 16 18 Rate Respiratory 21 Rate [Anterior Bilateral Throughout] Respiratory 21 Rate [Left Lower Lobe] Blood Pressure 90/60 100/63 O2 Sat by Pulse 100 100 Oximetry 04/15/20 04/15/20 04/15/20 08:30 08:45 09:00 Temperature Pulse Rate 70 71 70 Pulse Rate [ Anterior Bilateral Throughout] Pulse Rate [ From Monitor] Pulse Rate [ Left Lower Lobe ] Respiratory 14 12 14 Rate Respiratory Rate [Anterior Bilateral Throughout] Respiratory Rate [Left Lower Lobe] Blood Pressure 101/65 99/65 101/66 O2 Sat by Pulse 97 100 100 Oximetry 04/15/20 04/15/20 04/15/20 09:15 09:30 09:45 Temperature Pulse Rate 70 70 71 Pulse Rate [ Anterior Bilateral Throughout] Pulse Rate [ From Monitor] Pulse Rate [ Left Lower Lobe ] Respiratory 18 17 17 Rate Respiratory Rate [Anterior Bilateral Throughout] Respiratory Rate [Left Lower Lobe] Blood Pressure 99/62 97/61 96/63 O2 Sat by Pulse 99 98 98 Oximetry 04/15/20 04/15/20 04/15/20 10:00 10:15 11:31 Temperature Pulse Rate 71 71 73 Pulse Rate [ Anterior Bilateral Throughout] Pulse Rate [ From Monitor] Pulse Rate [ Left Lower Lobe ] Respiratory 16 15 15 Rate Respiratory Rate [Anterior Bilateral Throughout] Respiratory Rate [Left Lower Lobe] Blood Pressure 96/63 98/59 109/75 O2 Sat by Pulse 96 98 96 Oximetry Constitutional: appears uncomfortable, other (middle aged obese male intubated on MVS and without ventilator dyssynchrony) Eyes: non-icteric ENT: oropharynx moist, other (ETT 23 cm CARSON) Neck: supple, no lymphadenopathy, no JVD Effort: mildly labored Ascultation: Left: diminished breath sounds (base), Bilateral: clear, rhonchi, other (+ referred upper airway sounds) Percussion: Bilateral: not dull Cardiovascular: irregular rhythm Gastrointestinal: normoactive bowel sounds, soft, non-tender, non-distended (protuberant) Integumentary: rash Extremities: cool, edema (right lower extremity), other (left BKA with clean dr essing) Neurologic: unable to assess, other (unresponsive) Psychiatric: other (encephalopathic) CBC and BMP: 04/16/20 12:26 04/17/20 04:00 ABG, PT/INR, D-dimer: ABG ABG pH 7.418 pH Units (7.350-7.450) 04/15/20 04:34 ABG pCO2 31.6 mm Hg 04/15/20 04:34 ABG pO2 86.7 mm Hg (80.0-90.0) 04/15/20 04:34 ABG O2 Saturation 97.1 % (95.0-99.0) 04/15/20 04:34 PT/INR, D-dimer PT 24.3 Sec. (12.2-14.9) H 04/14/20 07:00 INR 2.15 (0.87-1.13) H 04/14/20 07:00 Abnormal lab findings: Abnormal Labs 03/18/20 03/18/20 03/18/20 18:28 18:28 20:56 WBC 12.3 H RBC Hgb Hct MCV MCHC RDW Lymph % (Auto) 11.0 L [place] % (Auto) 9.8 H Lymph # [place] # 1.2 H Seg Neutrophils % 78.4 H Seg Neuts % (Manual) Lymphocytes % (Manual) Nucleated RBC % Seg Neutrophils # 9.6 H Seg Neutrophils # Man Lymphocytes # (Manual) Monocytes # (Manual) Eosinophils # (Manual) PT INR Heparin Anti-Xa Level ABG pH ABG pO2 ABG HCO3 ABG O2 Saturation ABG Base Excess ABG Hemoglobin Oxyhemoglobin Sodium 132 L Potassium Chloride 91.9 L Carbon Dioxide 20 L BUN Creatinine 1.4 H Glucose 406 H POC Glucose Hemoglobin A1c Calcium Phosphorus Magnesium Ferritin AST ALT Alkaline Phosphatase Total Creatine Kinase 2727 H 2492 H CK-MB (CK-2) 135.9 H 107.2 H CK-MB (CK-2) Rel Index 4.3 H Troponin T 5.110 H* 3.960 H* D Total Protein Albumin Triglycerides 188 H LDL Cholesterol Direct 141 H HDL Cholesterol Urine WBC (Auto) Urine Creatinine 03/18/20 03/19/20 03/19/20 22:21 01:57 08:08 WBC RBC Hgb Hct MCV MCHC RDW Lymph % (Auto) [place] % (Auto) Lymph # [place] # Seg Neutrophils % Seg Neuts % (Manual) Lymphocytes % (Manual) Nucleated RBC % Seg Neutrophils # Seg Neutrophils # Man Lymphocytes # (Manual) Monocytes # (Manual) Eosinophils # (Manual) PT INR Heparin Anti-Xa Level ABG pH ABG pO2 ABG HCO3 ABG O2 Saturation ABG Base Excess ABG Hemoglobin Oxyhemoglobin Sodium Potassium Chloride Carbon Dioxide BUN Creatinine Glucose POC Glucose 317 H Hemoglobin A1c 11.0 H Calcium Phosphorus Magnesium Ferritin AST ALT Alkaline Phosphatase Total Creatine Kinase 7255 H CK-MB (CK-2) 79.3 H CK-MB (CK-2) Rel Index Troponin T 5.540 H* D Total Protein Albumin Triglycerides LDL Cholesterol Direct HDL Cholesterol Urine WBC (Auto) Urine Creatinine 03/19/20 03/19/20 03/19/20 08:08 08:08 08:08 WBC 13.3 H RBC Hgb Hct MCV MCHC RDW Lymph % (Auto) 10.7 L [place] % (Auto) 8.5 H Lymph # [place] # 1.1 H Seg Neutrophils % 80.0 H Seg Neuts % (Manual) Lymphocytes % (Manual) Nucleated RBC % Seg Neutrophils # 10.6 H Seg Neutrophils # Man Lymphocytes # (Manual) Monocytes # (Manual) Eosinophils # (Manual) PT INR Heparin Anti-Xa Level 0.10 L ABG pH ABG pO2 ABG HCO3 ABG O2 Saturation ABG Base Excess ABG Hemoglobin Oxyhemoglobin Sodium 133 L Potassium 5.1 H Chloride Carbon Dioxide 17 L BUN 23 H Creatinine Glucose 313 H POC Glucose Hemoglobin A1c Calcium Phosphorus Magnesium Ferritin AST ALT Alkaline Phosphatase Total Creatine Kinase CK-MB (CK-2) CK-MB (CK-2) Rel Index Troponin T Total Protein Albumin Triglycerides LDL Cholesterol Direct HDL Cholesterol Urine WBC (Auto) Urine Creatinine 03/19/20 03/19/20 03/19/20 15:40 18:23 21:32 WBC RBC Hgb Hct MCV MCHC RDW Lymph % (Auto) [place] % (Auto) Lymph # [place] # Seg Neutrophils % Seg Neuts % (Manual) Lymphocytes % (Manual) Nucleated RBC % Seg Neutrophils # Seg Neutrophils # Man Lymphocytes # (Manual) Monocytes # (Manual) Eosinophils # (Manual) PT INR Heparin Anti-Xa Level < 0.10 L ABG pH ABG pO2 ABG HCO3 18.3 L ABG O2 Saturation ABG Base Excess -5.4 L ABG Hemoglobin 12.2 L Oxyhemoglobin 94.6 L Sodium Potassium Chloride Carbon Dioxide BUN Creatinine Glucose POC Glucose 348 H Hemoglobin A1c Calcium Phosphorus Magnesium Ferritin AST ALT Alkaline Phosphatase Total Creatine Kinase CK-MB (CK-2) CK-MB (CK-2) Rel Index Troponin T Total Protein Albumin Triglycerides LDL Cholesterol Direct HDL Cholesterol Urine WBC (Auto) Urine Creatinine 03/20/20 03/20/20 03/20/20 04:35 05:12 05:12 WBC 11.1 H RBC 3.63 L Hgb 11.0 L Hct 32.7 L D MCV MCHC RDW Lymph % (Auto) [place] % (Auto) 8.1 H Lymph # [place] # 0.9 H Seg Neutrophils % 75.8 H Seg Neuts % (Manual) Lymphocytes % (Manual) Nucleated RBC % Seg Neutrophils # 8.4 H Seg Neutrophils # Man Lymphocytes # (Manual) Monocytes # (Manual) Eosinophils # (Manual) PT INR Heparin Anti-Xa Level 0.28 L ABG pH ABG pO2 68.3 L ABG HCO3 ABG O2 Saturation 94.3 L ABG Base Excess ABG Hemoglobin 7.1 L Oxyhemoglobin 92.3 L Sodium Potassium Chloride Carbon Dioxide BUN Creatinine Glucose POC Glucose Hemoglobin A1c Calcium Phosphorus Magnesium Ferritin AST ALT Alkaline Phosphatase Total Creatine Kinase CK-MB (CK-2) CK-MB (CK-2) Rel Index Troponin T Total Protein Albumin Triglycerides LDL Cholesterol Direct HDL Cholesterol Urine WBC (Auto) Urine Creatinine 03/20/20 03/20/20 03/20/20 05:12 07:49 12:15 WBC RBC Hgb Hct MCV MCHC RDW Lymph % (Auto) [place] % (Auto) Lymph # [place] # Seg Neutrophils % Seg Neuts % (Manual) Lymphocytes % (Manual) Nucleated RBC % Seg Neutrophils # Seg Neutrophils # Man Lymphocytes # (Manual) Monocytes # (Manual) Eosinophils # (Manual) PT INR Heparin Anti-Xa Level ABG pH ABG pO2 ABG HCO3 ABG O2 Saturation ABG Base Excess ABG Hemoglobin Oxyhemoglobin Sodium 134 L Potassium Chloride Carbon Dioxide 21 L BUN 23 H Creatinine Glucose 275 H POC Glucose 294 H 357 H Hemoglobin A1c Calcium Phosphorus Magnesium Ferritin AST ALT Alkaline Phosphatase Total Creatine Kinase CK-MB (CK-2) CK-MB (CK-2) Rel Index Troponin T 3.200 H* D Total Protein Albumin Triglycerides LDL Cholesterol Direct HDL Cholesterol Urine WBC (Auto) Urine Creatinine 03/20/20 03/20/20 03/21/20 17:16 22:08 04:44 WBC RBC Hgb Hct MCV MCHC RDW Lymph % (Auto) [place] % (Auto) Lymph # [place] # Seg Neutrophils % Seg Neuts % (Manual) Lymphocytes % (Manual) Nucleated RBC % Seg Neutrophils # Seg Neutrophils # Man Lymphocytes # (Manual) Monocytes # (Manual) Eosinophils # (Manual) PT INR Heparin Anti-Xa Level ABG pH ABG pO2 ABG HCO3 ABG O2 Saturation ABG Base Excess ABG Hemoglobin Oxyhemoglobin Sodium 136 L Potassium Chloride Carbon Dioxide 18 L BUN 26 H Creatinine Glucose 266 H POC Glucose 327 H 292 H Hemoglobin A1c Calcium 8.1 L Phosphorus Magnesium Ferritin AST ALT Alkaline Phosphatase Total Creatine Kinase CK-MB (CK-2) CK-MB (CK-2) Rel Index Troponin T Total Protein Albumin Triglycerides LDL Cholesterol Direct HDL Cholesterol Urine WBC (Auto) Urine Creatinine 03/21/20 03/21/20 03/21/20 07:50 12:25 15:53 WBC RBC Hgb Hct MCV MCHC RDW Lymph % (Auto) [place] % (Auto) Lymph # [place] # Seg Neutrophils % Seg Neuts % (Manual) Lymphocytes % (Manual) Nucleated RBC % Seg Neutrophils # Seg Neutrophils # Man Lymphocytes # (Manual) Monocytes # (Manual) Eosinophils # (Manual) PT INR Heparin Anti-Xa Level ABG pH ABG pO2 ABG HCO3 ABG O2 Saturation ABG Base Excess ABG Hemoglobin Oxyhemoglobin Sodium Potassium Chloride Carbon Dioxide BUN Creatinine Glucose POC Glucose 271 H 314 H 436 H Hemoglobin A1c Calcium Phosphorus Magnesium Ferritin AST ALT Alkaline Phosphatase Total Creatine Kinase CK-MB (CK-2) CK-MB (CK-2) Rel Index Troponin T Total Protein Albumin Triglycerides LDL Cholesterol Direct HDL Cholesterol Urine WBC (Auto) Urine Creatinine 03/21/20 03/21/20 03/22/20 17:44 21:55 04:33 WBC RBC Hgb 10.0 L Hct 29.4 L MCV MCHC RDW Lymph % (Auto) [place] % (Auto) Lymph # [place] # Seg Neutrophils % Seg Neuts % (Manual) Lymphocytes % (Manual) Nucleated RBC % Seg Neutrophils # Seg Neutrophils # Man Lymphocytes # (Manual) Monocytes # (Manual) Eosinophils # (Manual) PT INR Heparin Anti-Xa Level ABG pH ABG pO2 ABG HCO3 ABG O2 Saturation ABG Base Excess ABG Hemoglobin Oxyhemoglobin Sodium Potassium Chloride Carbon Dioxide BUN Creatinine Glucose POC Glucose 362 H 329 H Hemoglobin A1c Calcium Phosphorus Magnesium Ferritin AST ALT Alkaline Phosphatase Total Creatine Kinase CK-MB (CK-2) CK-MB (CK-2) Rel Index Troponin T Total Protein Albumin Triglycerides LDL Cholesterol Direct HDL Cholesterol Urine WBC (Auto) Urine Creatinine 03/22/20 03/22/20 03/22/20 08:57 14:12 19:57 WBC RBC Hgb Hct MCV MCHC RDW Lymph % (Auto) [place] % (Auto) Lymph # [place] # Seg Neutrophils % Seg Neuts % (Manual) Lymphocytes % (Manual) Nucleated RBC % Seg Neutrophils # Seg Neutrophils # Man Lymphocytes # (Manual) Monocytes # (Manual) Eosinophils # (Manual) PT INR Heparin Anti-Xa Level ABG pH ABG pO2 ABG HCO3 ABG O2 Saturation ABG Base Excess ABG Hemoglobin Oxyhemoglobin Sodium Potassium Chloride Carbon Dioxide BUN Creatinine Glucose POC Glucose 284 H 319 H 356 H Hemoglobin A1c Calcium Phosphorus Magnesium Ferritin AST ALT Alkaline Phosphatase Total Creatine Kinase CK-MB (CK-2) CK-MB (CK-2) Rel Index Troponin T Total Protein Albumin Triglycerides LDL Cholesterol Direct HDL Cholesterol Urine WBC (Auto) Urine Creatinine 03/22/20 03/23/20 03/23/20 21:44 08:18 12:46 WBC RBC Hgb Hct MCV MCHC RDW Lymph % (Auto) [place] % (Auto) Lymph # [place] # Seg Neutrophils % Seg Neuts % (Manual) Lymphocytes % (Manual) Nucleated RBC % Seg Neutrophils # Seg Neutrophils # Man Lymphocytes # (Manual) Monocytes # (Manual) Eosinophils # (Manual) PT INR Heparin Anti-Xa Level ABG pH ABG pO2 ABG HCO3 ABG O2 Saturation ABG Base Excess ABG Hemoglobin Oxyhemoglobin Sodium Potassium Chloride Carbon Dioxide BUN Creatinine Glucose POC Glucose 336 H 215 H 262 H Hemoglobin A1c Calcium Phosphorus Magnesium Ferritin AST ALT Alkaline Phosphatase Total Creatine Kinase CK-MB (CK-2) CK-MB (CK-2) Rel Index Troponin T Total Protein Albumin Triglycerides LDL Cholesterol Direct HDL Cholesterol Urine WBC (Auto) Urine Creatinine 03/23/20 03/23/20 03/24/20 15:56 22:05 02:35 WBC RBC Hgb 9.0 L Hct 25.8 L MCV MCHC RDW Lymph % (Auto) [place] % (Auto) Lymph # [place] # Seg Neutrophils % Seg Neuts % (Manual) Lymphocytes % (Manual) Nucleated RBC % Seg Neutrophils # Seg Neutrophils # Man Lymphocytes # (Manual) Monocytes # (Manual) Eosinophils # (Manual) PT INR Heparin Anti-Xa Level ABG pH ABG pO2 ABG HCO3 ABG O2 Saturation ABG Base Excess ABG Hemoglobin Oxyhemoglobin Sodium Potassium Chloride Carbon Dioxide BUN Creatinine Glucose POC Glucose 246 H 322 H Hemoglobin A1c Calcium Phosphorus Magnesium Ferritin AST ALT Alkaline Phosphatase Total Creatine Kinase CK-MB (CK-2) CK-MB (CK-2) Rel Index Troponin T Total Protein Albumin Triglycerides LDL Cholesterol Direct HDL Cholesterol Urine WBC (Auto) Urine Creatinine 03/24/20 03/24/20 03/24/20 07:38 11:45 16:02 WBC RBC Hgb Hct MCV MCHC RDW Lymph % (Auto) [place] % (Auto) Lymph # [place] # Seg Neutrophils % Seg Neuts % (Manual) Lymphocytes % (Manual) Nucleated RBC % Seg Neutrophils # Seg Neutrophils # Man Lymphocytes # (Manual) Monocytes # (Manual) Eosinophils # (Manual) PT INR Heparin Anti-Xa Level ABG pH ABG pO2 ABG HCO3 ABG O2 Saturation ABG Base Excess ABG Hemoglobin Oxyhemoglobin Sodium Potassium Chloride Carbon Dioxide BUN Creatinine Glucose POC Glucose 289 H 257 H 150 H Hemoglobin A1c Calcium Phosphorus Magnesium Ferritin AST ALT Alkaline Phosphatase Total Creatine Kinase CK-MB (CK-2) CK-MB (CK-2) Rel Index Troponin T Total Protein Albumin Triglycerides LDL Cholesterol Direct HDL Cholesterol Urine WBC (Auto) Urine Creatinine 03/24/20 03/25/20 03/25/20 21:24 04:06 07:39 WBC RBC Hgb Hct MCV MCHC RDW Lymph % (Auto) [place] % (Auto) Lymph # [place] # Seg Neutrophils % Seg Neuts % (Manual) Lymphocytes % (Manual) Nucleated RBC % Seg Neutrophils # Seg Neutrophils # Man Lymphocytes # (Manual) Monocytes # (Manual) Eosinophils # (Manual) PT INR Heparin Anti-Xa Level 0.10 L ABG pH ABG pO2 ABG HCO3 ABG O2 Saturation ABG Base Excess ABG Hemoglobin Oxyhemoglobin Sodium Potassium Chloride Carbon Dioxide BUN Creatinine Glucose POC Glucose 228 H 332 H Hemoglobin A1c Calcium Phosphorus Magnesium Ferritin AST ALT Alkaline Phosphatase Total Creatine Kinase CK-MB (CK-2) CK-MB (CK-2) Rel Index Troponin T Total Protein Albumin Triglycerides LDL Cholesterol Direct HDL Cholesterol Urine WBC (Auto) Urine Creatinine 03/25/20 03/25/20 03/25/20 08:13 09:30 11:59 WBC 13.1 H RBC 2.82 L Hgb 8.5 L Hct 26.1 L MCV MCHC RDW Lymph % (Auto) [place] % (Auto) Lymph # [place] # Seg Neutrophils % Seg Neuts % (Manual) Lymphocytes % (Manual) Nucleated RBC % Seg Neutrophils # Seg Neutrophils # Man Lymphocytes # (Manual) Monocytes # (Manual) Eosinophils # (Manual) PT INR Heparin Anti-Xa Level ABG pH ABG pO2 ABG HCO3 ABG O2 Saturation ABG Base Excess ABG Hemoglobin Oxyhemoglobin Sodium 131 L Potassium 5.3 H Chloride Carbon Dioxide 20 L BUN 39 H Creatinine 1.4 H Glucose 313 H POC Glucose 273 H Hemoglobin A1c Calcium 8.1 L Phosphorus Magnesium Ferritin AST ALT Alkaline Phosphatase Total Creatine Kinase CK-MB (CK-2) CK-MB (CK-2) Rel Index Troponin T Total Protein Albumin Triglycerides LDL Cholesterol Direct HDL Cholesterol Urine WBC (Auto) Urine Creatinine 03/25/20 03/25/20 03/25/20 13:54 15:58 18:21 WBC RBC Hgb Hct MCV MCHC RDW Lymph % (Auto) [place] % (Auto) Lymph # [place] # Seg Neutrophils % Seg Neuts % (Manual) Lymphocytes % (Manual) Nucleated RBC % Seg Neutrophils # Seg Neutrophils # Man Lymphocytes # (Manual) Monocytes # (Manual) Eosinophils # (Manual) PT INR Heparin Anti-Xa Level ABG pH ABG pO2 ABG HCO3 ABG O2 Saturation ABG Base Excess ABG Hemoglobin Oxyhemoglobin Sodium Potassium Chloride Carbon Dioxide BUN Creatinine Glucose POC Glucose 246 H 235 H 185 H Hemoglobin A1c Calcium Phosphorus Magnesium Ferritin AST ALT Alkaline Phosphatase Total Creatine Kinase CK-MB (CK-2) CK-MB (CK-2) Rel Index Troponin T Total Protein Albumin Triglycerides LDL Cholesterol Direct HDL Cholesterol Urine WBC (Auto) Urine Creatinine 03/25/20 03/26/20 03/26/20 20:45 05:15 06:59 WBC 17.4 H 15.6 H RBC 3.05 L 3.05 L Hgb 9.1 L 9.2 L Hct 28.2 L 27.9 L MCV MCHC RDW Lymph % (Auto) 8.9 L 8.9 L [place] % (Auto) Lymph # [place] # 1.0 H Seg Neutrophils % 84.4 H 84.8 H Seg Neuts % (Manual) Lymphocytes % (Manual) Nucleated RBC % Seg Neutrophils # 14.7 H 13.2 H Seg Neutrophils # Man Lymphocytes # (Manual) Monocytes # (Manual) Eosinophils # (Manual) PT INR Heparin Anti-Xa Level ABG pH ABG pO2 ABG HCO3 ABG O2 Saturation ABG Base Excess ABG Hemoglobin Oxyhemoglobin Sodium Potassium Chloride Carbon Dioxide BUN Creatinine Glucose POC Glucose 178 H Hemoglobin A1c Calcium Phosphorus Magnesium Ferritin AST ALT Alkaline Phosphatase Total Creatine Kinase CK-MB (CK-2) CK-MB (CK-2) Rel Index Troponin T Total Protein Albumin Triglycerides LDL Cholesterol Direct HDL Cholesterol Urine WBC (Auto) Urine Creatinine 03/26/20 03/26/20 03/26/20 06:59 07:43 11:56 WBC RBC Hgb Hct MCV MCHC RDW Lymph % (Auto) [place] % (Auto) Lymph # [place] # Seg Neutrophils % Seg Neuts % (Manual) Lymphocytes % (Manual) Nucleated RBC % Seg Neutrophils # Seg Neutrophils # Man Lymphocytes # (Manual) Monocytes # (Manual) Eosinophils # (Manual) PT INR Heparin Anti-Xa Level ABG pH ABG pO2 ABG HCO3 ABG O2 Saturation ABG Base Excess ABG Hemoglobin Oxyhemoglobin Sodium 131 L Potassium 5.8 H Chloride Carbon Dioxide 16 L BUN 42 H Creatinine 1.4 H Glucose 163 H POC Glucose 170 H 198 H Hemoglobin A1c Calcium 8.0 L Phosphorus Magnesium Ferritin AST ALT Alkaline Phosphatase Total Creatine Kinase CK-MB (CK-2) CK-MB (CK-2) Rel Index Troponin T Total Protein Albumin Triglycerides LDL Cholesterol Direct HDL Cholesterol Urine WBC (Auto) Urine Creatinine 03/26/20 03/26/20 03/26/20 13:58 16:16 21:00 WBC RBC Hgb Hct MCV MCHC RDW Lymph % (Auto) [place] % (Auto) Lymph # [place] # Seg Neutrophils % Seg Neuts % (Manual) Lymphocytes % (Manual) Nucleated RBC % Seg Neutrophils # Seg Neutrophils # Man Lymphocytes # (Manual) Monocytes # (Manual) Eosinophils # (Manual) PT INR Heparin Anti-Xa Level ABG pH ABG pO2 ABG HCO3 ABG O2 Saturation ABG Base Excess ABG Hemoglobin Oxyhemoglobin Sodium 128 L Potassium 6.0 H Chloride Carbon Dioxide 15 L BUN 45 H Creatinine 1.4 H Glucose 190 H POC Glucose 184 H 192 H Hemoglobin A1c Calcium 8.2 L Phosphorus Magnesium Ferritin AST ALT Alkaline Phosphatase Total Creatine Kinase CK-MB (CK-2) CK-MB (CK-2) Rel Index Troponin T Total Protein Albumin Triglycerides LDL Cholesterol Direct HDL Cholesterol Urine WBC (Auto) Urine Creatinine 03/27/20 03/27/20 03/27/20 08:32 11:51 14:39 WBC 22.9 H RBC 2.68 L Hgb 7.9 L Hct 24.7 L MCV MCHC RDW Lymph % (Auto) [place] % (Auto) Lymph # [place] # Seg Neutrophils % Seg Neuts % (Manual) Lymphocytes % (Manual) Nucleated RBC % Seg Neutrophils # Seg Neutrophils # Man Lymphocytes # (Manual) Monocytes # (Manual) Eosinophils # (Manual) PT INR Heparin Anti-Xa Level ABG pH ABG pO2 ABG HCO3 ABG O2 Saturation ABG Base Excess ABG Hemoglobin Oxyhemoglobin Sodium Potassium Chloride Carbon Dioxide BUN Creatinine Glucose POC Glucose 233 H 252 H Hemoglobin A1c Calcium Phosphorus Magnesium Ferritin AST ALT Alkaline Phosphatase Total Creatine Kinase CK-MB (CK-2) CK-MB (CK-2) Rel Index Troponin T Total Protein Albumin Triglycerides LDL Cholesterol Direct HDL Cholesterol Urine WBC (Auto) Urine Creatinine 03/27/20 03/27/20 03/27/20 14:39 15:19 21:35 WBC RBC Hgb Hct MCV MCHC RDW Lymph % (Auto) [place] % (Auto) Lymph # [place] # Seg Neutrophils % Seg Neuts % (Manual) Lymphocytes % (Manual) Nucleated RBC % Seg Neutrophils # Seg Neutrophils # Man Lymphocytes # (Manual) Monocytes # (Manual) Eosinophils # (Manual) PT INR Heparin Anti-Xa Level ABG pH ABG pO2 ABG HCO3 ABG O2 Saturation ABG Base Excess ABG Hemoglobin Oxyhemoglobin Sodium 133 L Potassium 5.5 H Chloride Carbon Dioxide 16 L BUN 46 H Creatinine 1.4 H Glucose 225 H POC Glucose 239 H 202 H Hemoglobin A1c Calcium 8.2 L Phosphorus Magnesium Ferritin AST ALT Alkaline Phosphatase Total Creatine Kinase CK-MB (CK-2) CK-MB (CK-2) Rel Index Troponin T Total Protein Albumin Triglycerides LDL Cholesterol Direct HDL Cholesterol Urine WBC (Auto) Urine Creatinine 03/28/20 03/28/20 03/28/20 07:39 07:39 08:36 WBC 22.4 H RBC 2.71 L Hgb 7.9 L Hct 24.5 L MCV MCHC RDW Lymph % (Auto) [place] % (Auto) Lymph # [place] # Seg Neutrophils % Seg Neuts % (Manual) 88.0 H Lymphocytes % (Manual) 5.0 L Nucleated RBC % Seg Neutrophils # Seg Neutrophils # Man 19.7 H Lymphocytes # (Manual) 1.1 L Monocytes # (Manual) 1.6 H Eosinophils # (Manual) PT INR Heparin Anti-Xa Level ABG pH ABG pO2 ABG HCO3 ABG O2 Saturation ABG Base Excess ABG Hemoglobin Oxyhemoglobin Sodium 134 L Potassium Chloride Carbon Dioxide 19 L BUN 47 H Creatinine Glucose 240 H POC Glucose 253 H Hemoglobin A1c Calcium 7.8 L Phosphorus Magnesium Ferritin AST ALT Alkaline Phosphatase Total Creatine Kinase CK-MB (CK-2) CK-MB (CK-2) Rel Index Troponin T Total Protein Albumin Triglycerides LDL Cholesterol Direct HDL Cholesterol Urine WBC (Auto) Urine Creatinine 03/28/20 03/28/20 03/28/20 11:54 17:08 21:17 WBC RBC Hgb Hct MCV MCHC RDW Lymph % (Auto) [place] % (Auto) Lymph # [place] # Seg Neutrophils % Seg Neuts % (Manual) Lymphocytes % (Manual) Nucleated RBC % Seg Neutrophils # Seg Neutrophils # Man Lymphocytes # (Manual) Monocytes # (Manual) Eosinophils # (Manual) PT INR Heparin Anti-Xa Level ABG pH ABG pO2 ABG HCO3 ABG O2 Saturation ABG Base Excess ABG Hemoglobin Oxyhemoglobin Sodium Potassium Chloride Carbon Dioxide BUN Creatinine Glucose POC Glucose 306 H 178 H 186 H Hemoglobin A1c Calcium Phosphorus Magnesium Ferritin AST ALT Alkaline Phosphatase Total Creatine Kinase CK-MB (CK-2) CK-MB (CK-2) Rel Index Troponin T Total Protein Albumin Triglycerides LDL Cholesterol Direct HDL Cholesterol Urine WBC (Auto) Urine Creatinine 03/29/20 03/29/20 03/29/20 08:32 12:04 14:19 WBC 21.5 H RBC 2.82 L Hgb 8.4 L Hct 26.1 L MCV MCHC RDW Lymph % (Auto) [place] % (Auto) Lymph # [place] # Seg Neutrophils % Seg Neuts % (Manual) 85.0 H Lymphocytes % (Manual) 11.0 L Nucleated RBC % 3.0 H Seg Neutrophils # Seg Neutrophils # Man 18.3 H Lymphocytes # (Manual) Monocytes # (Manual) Eosinophils # (Manual) 0.6 H PT INR Heparin Anti-Xa Level ABG pH ABG pO2 ABG HCO3 ABG O2 Saturation ABG Base Excess ABG Hemoglobin Oxyhemoglobin Sodium Potassium Chloride Carbon Dioxide BUN Creatinine Glucose POC Glucose 110 H 263 H Hemoglobin A1c Calcium Phosphorus Magnesium Ferritin AST ALT Alkaline Phosphatase Total Creatine Kinase CK-MB (CK-2) CK-MB (CK-2) Rel Index Troponin T Total Protein Albumin Triglycerides LDL Cholesterol Direct HDL Cholesterol Urine WBC (Auto) Urine Creatinine 03/29/20 03/29/20 03/30/20 16:17 22:57 11:00 WBC RBC Hgb Hct MCV MCHC RDW Lymph % (Auto) [place] % (Auto) Lymph # [place] # Seg Neutrophils % Seg Neuts % (Manual) Lymphocytes % (Manual) Nucleated RBC % Seg Neutrophils # Seg Neutrophils # Man Lymphocytes # (Manual) Monocytes # (Manual) Eosinophils # (Manual) PT INR Heparin Anti-Xa Level ABG pH ABG pO2 ABG HCO3 ABG O2 Saturation ABG Base Excess ABG Hemoglobin Oxyhemoglobin Sodium Potassium Chloride Carbon Dioxide BUN Creatinine Glucose POC Glucose 109 H 194 H 129 H Hemoglobin A1c Calcium Phosphorus Magnesium Ferritin AST ALT Alkaline Phosphatase Total Creatine Kinase CK-MB (CK-2) CK-MB (CK-2) Rel Index Troponin T Total Protein Albumin Triglycerides LDL Cholesterol Direct HDL Cholesterol Urine WBC (Auto) Urine Creatinine 03/30/20 03/30/20 03/31/20 15:16 21:54 04:27 WBC 15.8 H RBC 2.62 L Hgb 7.7 L Hct 24.1 L MCV MCHC RDW Lymph % (Auto) 9.4 L [place] % (Auto) Lymph # [place] # Seg Neutrophils % 84.4 H Seg Neuts % (Manual) Lymphocytes % (Manual) Nucleated RBC % Seg Neutrophils # 13.3 H Seg Neutrophils # Man Lymphocytes # (Manual) Monocytes # (Manual) Eosinophils # (Manual) PT INR Heparin Anti-Xa Level ABG pH ABG pO2 ABG HCO3 ABG O2 Saturation ABG Base Excess ABG Hemoglobin Oxyhemoglobin Sodium Potassium Chloride Carbon Dioxide BUN Creatinine Glucose POC Glucose 115 H 166 H Hemoglobin A1c Calcium Phosphorus Magnesium Ferritin AST ALT Alkaline Phosphatase Total Creatine Kinase CK-MB (CK-2) CK-MB (CK-2) Rel Index Troponin T Total Protein Albumin Triglycerides LDL Cholesterol Direct HDL Cholesterol Urine WBC (Auto) Urine Creatinine 03/31/20 03/31/20 03/31/20 04:27 07:37 11:46 WBC RBC Hgb Hct MCV MCHC RDW Lymph % (Auto) [place] % (Auto) Lymph # [place] # Seg Neutrophils % Seg Neuts % (Manual) Lymphocytes % (Manual) Nucleated RBC % Seg Neutrophils # Seg Neutrophils # Man Lymphocytes # (Manual) Monocytes # (Manual) Eosinophils # (Manual) PT INR Heparin Anti-Xa Level ABG pH ABG pO2 ABG HCO3 ABG O2 Saturation ABG Base Excess ABG Hemoglobin Oxyhemoglobin Sodium 133 L Potassium Chloride 96.6 L Carbon Dioxide 18 L BUN 75 H Creatinine 2.5 H D Glucose 129 H POC Glucose 156 H 224 H Hemoglobin A1c Calcium 8.0 L Phosphorus Magnesium Ferritin AST ALT Alkaline Phosphatase Total Creatine Kinase CK-MB (CK-2) CK-MB (CK-2) Rel Index Troponin T Total Protein Albumin Triglycerides LDL Cholesterol Direct HDL Cholesterol Urine WBC (Auto) Urine Creatinine 04/01/20 04/01/20 04/01/20 08:34 10:52 10:52 WBC 12.9 H RBC 2.75 L Hgb 8.2 L Hct 24.8 L MCV MCHC RDW Lymph % (Auto) 10.6 L [place] % (Auto) Lymph # [place] # Seg Neutrophils % 83.7 H Seg Neuts % (Manual) Lymphocytes % (Manual) Nucleated RBC % Seg Neutrophils # 10.8 H Seg Neutrophils # Man Lymphocytes # (Manual) Monocytes # (Manual) Eosinophils # (Manual) PT INR Heparin Anti-Xa Level ABG pH ABG pO2 ABG HCO3 ABG O2 Saturation ABG Base Excess ABG Hemoglobin Oxyhemoglobin Sodium 131 L Potassium Chloride 96.1 L Carbon Dioxide 17 L BUN 77 H Creatinine 2.3 H Glucose 205 H POC Glucose 110 H Hemoglobin A1c Calcium 7.9 L Phosphorus Magnesium Ferritin AST ALT Alkaline Phosphatase Total Creatine Kinase CK-MB (CK-2) CK-MB (CK-2) Rel Index Troponin T Total Protein Albumin Triglycerides LDL Cholesterol Direct HDL Cholesterol Urine WBC (Auto) Urine Creatinine 04/01/20 04/01/20 04/01/20 12:15 17:22 20:47 WBC RBC Hgb Hct MCV MCHC RDW Lymph % (Auto) [place] % (Auto) Lymph # [place] # Seg Neutrophils % Seg Neuts % (Manual) Lymphocytes % (Manual) Nucleated RBC % Seg Neutrophils # Seg Neutrophils # Man Lymphocytes # (Manual) Monocytes # (Manual) Eosinophils # (Manual) PT INR Heparin Anti-Xa Level ABG pH ABG pO2 ABG HCO3 ABG O2 Saturation ABG Base Excess ABG Hemoglobin Oxyhemoglobin Sodium Potassium Chloride Carbon Dioxide BUN Creatinine Glucose POC Glucose 201 H 219 H 156 H Hemoglobin A1c Calcium Phosphorus Magnesium Ferritin AST ALT Alkaline Phosphatase Total Creatine Kinase CK-MB (CK-2) CK-MB (CK-2) Rel Index Troponin T Total Protein Albumin Triglycerides LDL Cholesterol Direct HDL Cholesterol Urine WBC (Auto) Urine Creatinine 04/02/20 04/02/20 04/02/20 05:44 05:44 11:32 WBC 15.8 H RBC 2.81 L Hgb 8.2 L Hct 25.7 L MCV MCHC RDW Lymph % (Auto) [place] % (Auto) Lymph # [place] # 0.9 H Seg Neutrophils % 77.7 H Seg Neuts % (Manual) Lymphocytes % (Manual) Nucleated RBC % Seg Neutrophils # 12.3 H Seg Neutrophils # Man Lymphocytes # (Manual) Monocytes # (Manual) Eosinophils # (Manual) PT INR Heparin Anti-Xa Level ABG pH ABG pO2 ABG HCO3 ABG O2 Saturation ABG Base Excess ABG Hemoglobin Oxyhemoglobin Sodium 134 L Potassium Chloride Carbon Dioxide 19 L BUN 76 H Creatinine 2.0 H Glucose POC Glucose 116 H Hemoglobin A1c Calcium 8.0 L Phosphorus Magnesium Ferritin AST 291 H ALT 169 H Alkaline Phosphatase 256 H Total Creatine Kinase CK-MB (CK-2) CK-MB (CK-2) Rel Index Troponin T Total Protein 6.1 L Albumin 2.2 L Triglycerides LDL Cholesterol Direct HDL Cholesterol Urine WBC (Auto) Urine Creatinine 04/02/20 04/02/20 04/03/20 16:56 22:03 08:13 WBC RBC Hgb Hct MCV MCHC RDW Lymph % (Auto) [place] % (Auto) Lymph # [place] # Seg Neutrophils % Seg Neuts % (Manual) Lymphocytes % (Manual) Nucleated RBC % Seg Neutrophils # Seg Neutrophils # Man Lymphocytes # (Manual) Monocytes # (Manual) Eosinophils # (Manual) PT INR Heparin Anti-Xa Level ABG pH ABG pO2 ABG HCO3 ABG O2 Saturation ABG Base Excess ABG Hemoglobin Oxyhemoglobin Sodium Potassium Chloride Carbon Dioxide BUN Creatinine Glucose POC Glucose 141 H 152 H 126 H Hemoglobin A1c Calcium Phosphorus Magnesium Ferritin AST ALT Alkaline Phosphatase Total Creatine Kinase CK-MB (CK-2) CK-MB (CK-2) Rel Index Troponin T Total Protein Albumin Triglycerides LDL Cholesterol Direct HDL Cholesterol Urine WBC (Auto) Urine Creatinine 04/03/20 04/03/20 04/03/20 12:11 16:26 21:33 WBC RBC Hgb Hct MCV MCHC RDW Lymph % (Auto) [place] % (Auto) Lymph # [place] # Seg Neutrophils % Seg Neuts % (Manual) Lymphocytes % (Manual) Nucleated RBC % Seg Neutrophils # Seg Neutrophils # Man Lymphocytes # (Manual) Monocytes # (Manual) Eosinophils # (Manual) PT INR Heparin Anti-Xa Level ABG pH ABG pO2 ABG HCO3 ABG O2 Saturation ABG Base Excess ABG Hemoglobin Oxyhemoglobin Sodium Potassium Chloride Carbon Dioxide BUN Creatinine Glucose POC Glucose 139 H 164 H 147 H Hemoglobin A1c Calcium Phosphorus Magnesium Ferritin AST ALT Alkaline Phosphatase Total Creatine Kinase CK-MB (CK-2) CK-MB (CK-2) Rel Index Troponin T Total Protein Albumin Triglycerides LDL Cholesterol Direct HDL Cholesterol Urine WBC (Auto) Urine Creatinine 04/04/20 04/04/20 04/04/20 04:29 04:29 11:29 WBC 12.3 H RBC 2.88 L Hgb 8.4 L Hct 26.1 L MCV MCHC RDW Lymph % (Auto) [place] % (Auto) Lymph # [place] # Seg Neutrophils % 75.4 H Seg Neuts % (Manual) Lymphocytes % (Manual) Nucleated RBC % Seg Neutrophils # 9.3 H Seg Neutrophils # Man Lymphocytes # (Manual) Monocytes # (Manual) Eosinophils # (Manual) PT INR Heparin Anti-Xa Level ABG pH ABG pO2 ABG HCO3 ABG O2 Saturation ABG Base Excess ABG Hemoglobin Oxyhemoglobin Sodium 136 L Potassium Chloride Carbon Dioxide 19 L BUN 71 H Creatinine 1.7 H Glucose POC Glucose 108 H Hemoglobin A1c Calcium 8.0 L Phosphorus Magnesium Ferritin AST 673 H ALT 252 H Alkaline Phosphatase 311 H Total Creatine Kinase CK-MB (CK-2) CK-MB (CK-2) Rel Index Troponin T Total Protein Albumin 2.2 L Triglycerides LDL Cholesterol Direct HDL Cholesterol Urine WBC (Auto) Urine Creatinine 04/04/20 04/04/20 04/05/20 16:34 20:58 03:54 WBC 13.7 H RBC 3.03 L Hgb 8.7 L Hct 27.9 L MCV MCHC 31 L RDW 15.5 H Lymph % (Auto) [place] % (Auto) Lymph # [place] # Seg Neutrophils % 78.9 H Seg Neuts % (Manual) Lymphocytes % (Manual) Nucleated RBC % Seg Neutrophils # 10.8 H Seg Neutrophils # Man Lymphocytes # (Manual) Monocytes # (Manual) Eosinophils # (Manual) PT INR Heparin Anti-Xa Level ABG pH ABG pO2 ABG HCO3 ABG O2 Saturation ABG Base Excess ABG Hemoglobin Oxyhemoglobin Sodium Potassium Chloride Carbon Dioxide BUN Creatinine Glucose POC Glucose 151 H 131 H Hemoglobin A1c Calcium Phosphorus Magnesium Ferritin AST ALT Alkaline Phosphatase Total Creatine Kinase CK-MB (CK-2) CK-MB (CK-2) Rel Index Troponin T Total Protein Albumin Triglycerides LDL Cholesterol Direct HDL Cholesterol Urine WBC (Auto) Urine Creatinine 04/05/20 04/05/20 04/05/20 03:54 15:58 15:58 WBC RBC Hgb Hct MCV MCHC RDW Lymph % (Auto) [place] % (Auto) Lymph # [place] # Seg Neutrophils % Seg Neuts % (Manual) Lymphocytes % (Manual) Nucleated RBC % Seg Neutrophils # Seg Neutrophils # Man Lymphocytes # (Manual) Monocytes # (Manual) Eosinophils # (Manual) PT INR Heparin Anti-Xa Level ABG pH ABG pO2 67.1 L ABG HCO3 26.1 H ABG O2 Saturation 93.4 L ABG Base Excess ABG Hemoglobin 9.0 L Oxyhemoglobin 91.6 L Sodium 136 L Potassium 5.5 H Chloride Carbon Dioxide 21 L BUN 79 H Creatinine 1.9 H Glucose 63 L POC Glucose 129 H Hemoglobin A1c Calcium 8.2 L Phosphorus Magnesium Ferritin AST 696 H ALT 262 H Alkaline Phosphatase 325 H Total Creatine Kinase CK-MB (CK-2) CK-MB (CK-2) Rel Index Troponin T Total Protein Albumin 2.3 L Triglycerides LDL Cholesterol Direct HDL Cholesterol Urine WBC (Auto) Urine Creatinine 04/05/20 04/06/20 04/06/20 22:33 07:14 07:14 WBC RBC Hgb Hct MCV MCHC RDW Lymph % (Auto) [place] % (Auto) Lymph # [place] # Seg Neutrophils % Seg Neuts % (Manual) Lymphocytes % (Manual) Nucleated RBC % Seg Neutrophils # Seg Neutrophils # Man Lymphocytes # (Manual) Monocytes # (Manual) Eosinophils # (Manual) PT INR Heparin Anti-Xa Level ABG pH ABG pO2 ABG HCO3 ABG O2 Saturation ABG Base Excess ABG Hemoglobin Oxyhemoglobin Sodium Potassium 5.6 H Chloride Carbon Dioxide BUN 83 H Creatinine 1.9 H Glucose 202 H POC Glucose 253 H Hemoglobin A1c Calcium Phosphorus Magnesium Ferritin 444.2 H AST 469 H ALT 237 H Alkaline Phosphatase 332 H Total Creatine Kinase CK-MB (CK-2) CK-MB (CK-2) Rel Index Troponin T Total Protein Albumin 2.2 L Triglycerides LDL Cholesterol Direct HDL Cholesterol Urine WBC (Auto) Urine Creatinine 04/06/20 04/06/20 04/06/20 08:23 12:00 13:56 WBC RBC Hgb Hct MCV MCHC RDW Lymph % (Auto) [place] % (Auto) Lymph # [place] # Seg Neutrophils % Seg Neuts % (Manual) Lymphocytes % (Manual) Nucleated RBC % Seg Neutrophils # Seg Neutrophils # Man Lymphocytes # (Manual) Monocytes # (Manual) Eosinophils # (Manual) PT 27.0 H INR 2.44 H Heparin Anti-Xa Level ABG pH ABG pO2 ABG HCO3 ABG O2 Saturation ABG Base Excess ABG Hemoglobin Oxyhemoglobin Sodium Potassium Chloride Carbon Dioxide BUN Creatinine Glucose POC Glucose 226 H 176 H Hemoglobin A1c Calcium Phosphorus Magnesium Ferritin AST ALT Alkaline Phosphatase Total Creatine Kinase CK-MB (CK-2) CK-MB (CK-2) Rel Index Troponin T Total Protein Albumin Triglycerides LDL Cholesterol Direct HDL Cholesterol Urine WBC (Auto) Urine Creatinine 04/06/20 04/07/20 04/07/20 20:45 04:58 04:58 WBC RBC Hgb Hct MCV MCHC RDW Lymph % (Auto) [place] % (Auto) Lymph # [place] # Seg Neutrophils % Seg Neuts % (Manual) Lymphocytes % (Manual) Nucleated RBC % Seg Neutrophils # Seg Neutrophils # Man Lymphocytes # (Manual) Monocytes # (Manual) Eosinophils # (Manual) PT 30.9 H INR 2.89 H Heparin Anti-Xa Level ABG pH ABG pO2 ABG HCO3 ABG O2 Saturation ABG Base Excess ABG Hemoglobin Oxyhemoglobin Sodium Potassium 6.0 H Chloride Carbon Dioxide BUN 85 H Creatinine 2.1 H Glucose 177 H POC Glucose 139 H Hemoglobin A1c Calcium Phosphorus Magnesium Ferritin AST 351 H ALT 215 H Alkaline Phosphatase 332 H Total Creatine Kinase CK-MB (CK-2) CK-MB (CK-2) Rel Index Troponin T Total Protein Albumin 2.7 L Triglycerides LDL Cholesterol Direct HDL Cholesterol Urine WBC (Auto) Urine Creatinine 04/07/20 04/07/20 04/08/20 07:53 11:51 04:44 WBC 11.7 H RBC 3.07 L Hgb 9.1 L Hct 28.9 L MCV MCHC RDW 16.8 H Lymph % (Auto) 12.4 L [place] % (Auto) Lymph # [place] # Seg Neutrophils % 83.3 H Seg Neuts % (Manual) Lymphocytes % (Manual) Nucleated RBC % Seg Neutrophils # 9.7 H Seg Neutrophils # Man Lymphocytes # (Manual) Monocytes # (Manual) Eosinophils # (Manual) PT INR Heparin Anti-Xa Level ABG pH ABG pO2 ABG HCO3 ABG O2 Saturation ABG Base Excess ABG Hemoglobin Oxyhemoglobin Sodium Potassium Chloride Carbon Dioxide BUN Creatinine Glucose POC Glucose 167 H 120 H Hemoglobin A1c Calcium Phosphorus Magnesium Ferritin AST ALT Alkaline Phosphatase Total Creatine Kinase CK-MB (CK-2) CK-MB (CK-2) Rel Index Troponin T Total Protein Albumin Triglycerides LDL Cholesterol Direct HDL Cholesterol Urine WBC (Auto) Urine Creatinine 04/08/20 04/08/20 04/08/20 04:44 07:19 08:43 WBC RBC Hgb Hct MCV MCHC RDW Lymph % (Auto) [place] % (Auto) Lymph # [place] # Seg Neutrophils % Seg Neuts % (Manual) Lymphocytes % (Manual) Nucleated RBC % Seg Neutrophils # Seg Neutrophils # Man Lymphocytes # (Manual) Monocytes # (Manual) Eosinophils # (Manual) PT INR Heparin Anti-Xa Level ABG pH ABG pO2 ABG HCO3 ABG O2 Saturation ABG Base Excess ABG Hemoglobin Oxyhemoglobin Sodium Potassium 6.3 H* Chloride Carbon Dioxide 21 L BUN 89 H Creatinine 1.9 H Glucose 63 L POC Glucose 65 L 168 H Hemoglobin A1c Calcium Phosphorus Magnesium Ferritin AST 370 H ALT 211 H Alkaline Phosphatase 320 H Total Creatine Kinase CK-MB (CK-2) CK-MB (CK-2) Rel Index Troponin T Total Protein Albumin 2.6 L Triglycerides LDL Cholesterol Direct HDL Cholesterol Urine WBC (Auto) Urine Creatinine 04/08/20 04/08/20 04/08/20 12:53 16:38 21:47 WBC RBC Hgb Hct MCV MCHC RDW Lymph % (Auto) [place] % (Auto) Lymph # [place] # Seg Neutrophils % Seg Neuts % (Manual) Lymphocytes % (Manual) Nucleated RBC % Seg Neutrophils # Seg Neutrophils # Man Lymphocytes # (Manual) Monocytes # (Manual) Eosinophils # (Manual) PT INR Heparin Anti-Xa Level ABG pH ABG pO2 ABG HCO3 ABG O2 Saturation ABG Base Excess ABG Hemoglobin Oxyhemoglobin Sodium Potassium 6.0 H Chloride Carbon Dioxide BUN 90 H Creatinine 2.1 H Glucose 124 H POC Glucose 129 H 118 H Hemoglobin A1c Calcium Phosphorus Magnesium Ferritin AST ALT Alkaline Phosphatase Total Creatine Kinase CK-MB (CK-2) CK-MB (CK-2) Rel Index Troponin T Total Protein Albumin Triglycerides LDL Cholesterol Direct HDL Cholesterol Urine WBC (Auto) Urine Creatinine 04/09/20 04/09/20 04/09/20 03:45 08:04 19:10 WBC RBC Hgb Hct MCV MCHC RDW Lymph % (Auto) [place] % (Auto) Lymph # [place] # Seg Neutrophils % Seg Neuts % (Manual) Lymphocytes % (Manual) Nucleated RBC % Seg Neutrophils # Seg Neutrophils # Man Lymphocytes # (Manual) Monocytes # (Manual) Eosinophils # (Manual) PT INR Heparin Anti-Xa Level ABG pH 7.304 L ABG pO2 72.2 L ABG HCO3 ABG O2 Saturation 93.7 L ABG Base Excess -3.3 L ABG Hemoglobin 8.9 L Oxyhemoglobin 91.8 L Sodium Potassium 6.6 H* 6.5 H* Chloride Carbon Dioxide 21 L BUN 99 H 100 H Creatinine 2.2 H 2.3 H Glucose POC Glucose Hemoglobin A1c Calcium 8.2 L Phosphorus Magnesium Ferritin AST ALT Alkaline Phosphatase Total Creatine Kinase CK-MB (CK-2) CK-MB (CK-2) Rel Index Troponin T Total Protein Albumin Triglycerides LDL Cholesterol Direct HDL Cholesterol Urine WBC (Auto) Urine Creatinine 04/10/20 04/10/20 04/10/20 05:48 05:48 08:53 WBC RBC 3.01 L Hgb 8.9 L Hct 28.4 L MCV 95 H MCHC 31 L RDW 17.6 H Lymph % (Auto) 11.4 L [place] % (Auto) Lymph # 1.1 L [place] # Seg Neutrophils % 81.1 H Seg Neuts % (Manual) Lymphocytes % (Manual) Nucleated RBC % Seg Neutrophils # 8.1 H Seg Neutrophils # Man Lymphocytes # (Manual) Monocytes # (Manual) Eosinophils # (Manual) PT INR Heparin Anti-Xa Level ABG pH ABG pO2 ABG HCO3 ABG O2 Saturation ABG Base Excess ABG Hemoglobin Oxyhemoglobin Sodium Potassium 5.2 H Chloride Carbon Dioxide BUN 104 H Creatinine 2.2 H Glucose 129 H POC Glucose 110 H Hemoglobin A1c Calcium Phosphorus Magnesium 2.80 H Ferritin AST 502 H ALT 249 H Alkaline Phosphatase 323 H Total Creatine Kinase CK-MB (CK-2) CK-MB (CK-2) Rel Index Troponin T Total Protein Albumin 2.5 L Triglycerides LDL Cholesterol Direct HDL Cholesterol Urine WBC (Auto) Urine Creatinine 04/10/20 04/10/20 04/10/20 11:42 16:05 21:35 WBC RBC Hgb Hct MCV MCHC RDW Lymph % (Auto) [place] % (Auto) Lymph # [place] # Seg Neutrophils % Seg Neuts % (Manual) Lymphocytes % (Manual) Nucleated RBC % Seg Neutrophils # Seg Neutrophils # Man Lymphocytes # (Manual) Monocytes # (Manual) Eosinophils # (Manual) PT INR Heparin Anti-Xa Level ABG pH ABG pO2 ABG HCO3 ABG O2 Saturation ABG Base Excess ABG Hemoglobin Oxyhemoglobin Sodium Potassium Chloride Carbon Dioxide BUN Creatinine Glucose POC Glucose 135 H 137 H 151 H Hemoglobin A1c Calcium Phosphorus Magnesium Ferritin AST ALT Alkaline Phosphatase Total Creatine Kinase CK-MB (CK-2) CK-MB (CK-2) Rel Index Troponin T Total Protein Albumin Triglycerides LDL Cholesterol Direct HDL Cholesterol Urine WBC (Auto) Urine Creatinine 04/11/20 04/11/20 04/11/20 06:26 06:26 06:26 WBC RBC 2.89 L Hgb 8.6 L Hct 27.4 L MCV 95 H MCHC 31 L RDW 17.5 H Lymph % (Auto) 9.9 L [place] % (Auto) Lymph # 1.0 L [place] # Seg Neutrophils % 85.7 H Seg Neuts % (Manual) Lymphocytes % (Manual) Nucleated RBC % Seg Neutrophils # 8.8 H Seg Neutrophils # Man Lymphocytes # (Manual) Monocytes # (Manual) Eosinophils # (Manual) PT 24.0 H INR 2.10 H Heparin Anti-Xa Level ABG pH ABG pO2 ABG HCO3 ABG O2 Saturation ABG Base Excess ABG Hemoglobin Oxyhemoglobin Sodium 146 H Potassium 5.3 H Chloride 108.2 H Carbon Dioxide BUN 109 H Creatinine 2.1 H Glucose 160 H POC Glucose Hemoglobin A1c Calcium Phosphorus Magnesium Ferritin AST 298 H ALT 207 H Alkaline Phosphatase 274 H Total Creatine Kinase CK-MB (CK-2) CK-MB (CK-2) Rel Index Troponin T Total Protein Albumin 2.5 L Triglycerides LDL Cholesterol Direct HDL Cholesterol Urine WBC (Auto) Urine Creatinine 04/11/20 04/11/20 04/11/20 07:57 11:33 16:07 WBC RBC Hgb Hct MCV MCHC RDW Lymph % (Auto) [place] % (Auto) Lymph # [place] # Seg Neutrophils % Seg Neuts % (Manual) Lymphocytes % (Manual) Nucleated RBC % Seg Neutrophils # Seg Neutrophils # Man Lymphocytes # (Manual) Monocytes # (Manual) Eosinophils # (Manual) PT INR Heparin Anti-Xa Level ABG pH ABG pO2 ABG HCO3 ABG O2 Saturation ABG Base Excess ABG Hemoglobin Oxyhemoglobin Sodium Potassium Chloride Carbon Dioxide BUN Creatinine Glucose POC Glucose 170 H 167 H 140 H Hemoglobin A1c Calcium Phosphorus Magnesium Ferritin AST ALT Alkaline Phosphatase Total Creatine Kinase CK-MB (CK-2) CK-MB (CK-2) Rel Index Troponin T Total Protein Albumin Triglycerides LDL Cholesterol Direct HDL Cholesterol Urine WBC (Auto) Urine Creatinine 04/11/20 04/11/20 04/11/20 16:30 16:30 16:50 WBC RBC Hgb Hct MCV MCHC RDW Lymph % (Auto) [place] % (Auto) Lymph # [place] # Seg Neutrophils % Seg Neuts % (Manual) Lymphocytes % (Manual) Nucleated RBC % Seg Neutrophils # Seg Neutrophils # Man Lymphocytes # (Manual) Monocytes # (Manual) Eosinophils # (Manual) PT INR Heparin Anti-Xa Level ABG pH 7.325 L ABG pO2 304.4 H ABG HCO3 ABG O2 Saturation 99.5 H ABG Base Excess -4.4 L ABG Hemoglobin 10.9 L Oxyhemoglobin Sodium Potassium Chloride Carbon Dioxide BUN Creatinine Glucose POC Glucose Hemoglobin A1c Calcium Phosphorus Magnesium Ferritin AST ALT Alkaline Phosphatase Total Creatine Kinase CK-MB (CK-2) CK-MB (CK-2) Rel Index Troponin T Total Protein Albumin Triglycerides LDL Cholesterol Direct HDL Cholesterol Urine WBC (Auto) 16.0 H Urine Creatinine 60.0 H 04/11/20 04/11/20 04/11/20 18:17 18:17 18:57 WBC RBC 2.71 L Hgb 7.9 L Hct 26.1 L MCV 96 H MCHC 30 L RDW 18.3 H Lymph % (Auto) [place] % (Auto) Lymph # [place] # Seg Neutrophils % Seg Neuts % (Manual) 89.0 H Lymphocytes % (Manual) 7.0 L Nucleated RBC % Seg Neutrophils # Seg Neutrophils # Man 8.8 H Lymphocytes # (Manual) 0.7 L Monocytes # (Manual) Eosinophils # (Manual) PT INR Heparin Anti-Xa Level ABG pH ABG pO2 ABG HCO3 ABG O2 Saturation ABG Base Excess ABG Hemoglobin Oxyhemoglobin Sodium 146 H Potassium 5.8 H Chloride 107.5 H Carbon Dioxide 21 L BUN 111 H Creatinine 2.2 H Glucose 176 H POC Glucose 199 H Hemoglobin A1c Calcium Phosphorus 7.40 H Magnesium 2.90 H Ferritin AST 230 H ALT 163 H Alkaline Phosphatase 236 H Total Creatine Kinase 351 H CK-MB (CK-2) CK-MB (CK-2) Rel Index Troponin T 3.950 H* Total Protein 5.7 L Albumin 2.1 L Triglycerides LDL Cholesterol Direct HDL Cholesterol 19 L Urine WBC (Auto) Urine Creatinine 04/11/20 04/12/20 04/12/20 21:21 01:41 04:45 WBC RBC Hgb Hct MCV MCHC RDW Lymph % (Auto) [place] % (Auto) Lymph # [place] # Seg Neutrophils % Seg Neuts % (Manual) Lymphocytes % (Manual) Nucleated RBC % Seg Neutrophils # Seg Neutrophils # Man Lymphocytes # (Manual) Monocytes # (Manual) Eosinophils # (Manual) PT INR Heparin Anti-Xa Level ABG pH 7.451 H ABG pO2 ABG HCO3 ABG O2 Saturation ABG Base Excess ABG Hemoglobin 6.2 L Oxyhemoglobin Sodium 147 H Potassium 6.0 H Chloride 111.8 H Carbon Dioxide 21 L BUN 117 H Creatinine 2.6 H Glucose 201 H POC Glucose 248 H Hemoglobin A1c Calcium 8.0 L Phosphorus Magnesium Ferritin AST ALT Alkaline Phosphatase Total Creatine Kinase CK-MB (CK-2) CK-MB (CK-2) Rel Index Troponin T Total Protein Albumin Triglycerides LDL Cholesterol Direct HDL Cholesterol Urine WBC (Auto) Urine Creatinine 04/12/20 04/12/20 04/12/20 07:22 07:22 07:22 WBC 12.1 H RBC 2.96 L Hgb 8.7 L Hct 28.1 L MCV 95 H MCHC 31 L RDW 17.7 H Lymph % (Auto) 7.1 L [place] % (Auto) Lymph # 0.9 L [place] # Seg Neutrophils % 85.8 H Seg Neuts % (Manual) Lymphocytes % (Manual) Nucleated RBC % Seg Neutrophils # 10.4 H Seg Neutrophils # Man Lymphocytes # (Manual) Monocytes # (Manual) Eosinophils # (Manual) PT 22.9 H INR 1.99 H Heparin Anti-Xa Level ABG pH ABG pO2 ABG HCO3 ABG O2 Saturation ABG Base Excess ABG Hemoglobin Oxyhemoglobin Sodium 147 H Potassium 5.2 H Chloride 109.8 H Carbon Dioxide 20 L BUN 120 H Creatinine 2.8 H Glucose 158 H POC Glucose Hemoglobin A1c Calcium Phosphorus Magnesium 3.00 H Ferritin AST 195 H ALT 162 H Alkaline Phosphatase 244 H Total Creatine Kinase CK-MB (CK-2) CK-MB (CK-2) Rel Index Troponin T Total Protein 5.9 L Albumin 2.4 L Triglycerides LDL Cholesterol Direct HDL Cholesterol Urine WBC (Auto) Urine Creatinine 04/12/20 04/12/20 04/12/20 11:54 16:30 21:05 WBC RBC Hgb Hct MCV MCHC RDW Lymph % (Auto) [place] % (Auto) Lymph # [place] # Seg Neutrophils % Seg Neuts % (Manual) Lymphocytes % (Manual) Nucleated RBC % Seg Neutrophils # Seg Neutrophils # Man Lymphocytes # (Manual) Monocytes # (Manual) Eosinophils # (Manual) PT INR Heparin Anti-Xa Level ABG pH ABG pO2 ABG HCO3 ABG O2 Saturation ABG Base Excess ABG Hemoglobin Oxyhemoglobin Sodium 146 H Potassium 5.2 H Chloride 107.3 H Carbon Dioxide 21 L BUN 132 H Creatinine 3.4 H Glucose 212 H POC Glucose 213 H 181 H Hemoglobin A1c Calcium Phosphorus Magnesium Ferritin AST ALT Alkaline Phosphatase Total Creatine Kinase CK-MB (CK-2) CK-MB (CK-2) Rel Index Troponin T Total Protein Albumin Triglycerides LDL Cholesterol Direct HDL Cholesterol Urine WBC (Auto) Urine Creatinine 04/12/20 04/12/20 04/13/20 21:17 23:24 04:25 WBC RBC Hgb Hct MCV MCHC RDW Lymph % (Auto) [place] % (Auto) Lymph # [place] # Seg Neutrophils % Seg Neuts % (Manual) Lymphocytes % (Manual) Nucleated RBC % Seg Neutrophils # Seg Neutrophils # Man Lymphocytes # (Manual) Monocytes # (Manual) Eosinophils # (Manual) PT INR Heparin Anti-Xa Level ABG pH ABG pO2 161.4 H ABG HCO3 ABG O2 Saturation ABG Base Excess -2.8 L ABG Hemoglobin 7.6 L Oxyhemoglobin Sodium Potassium Chloride Carbon Dioxide BUN Creatinine Glucose POC Glucose 203 H 221 H Hemoglobin A1c Calcium Phosphorus Magnesium Ferritin AST ALT Alkaline Phosphatase Total Creatine Kinase CK-MB (CK-2) CK-MB (CK-2) Rel Index Troponin T Total Protein Albumin Triglycerides LDL Cholesterol Direct HDL Cholesterol Urine WBC (Auto) Urine Creatinine 04/13/20 04/13/20 04/13/20 04:35 04:35 04:35 WBC 13.3 H RBC 2.68 L Hgb 8.0 L Hct 25.1 L MCV MCHC RDW 17.4 H Lymph % (Auto) 9.1 L [place] % (Auto) Lymph # [place] # 0.9 H Seg Neutrophils % 84.0 H Seg Neuts % (Manual) Lymphocytes % (Manual) Nucleated RBC % Seg Neutrophils # 11.1 H Seg Neutrophils # Man Lymphocytes # (Manual) Monocytes # (Manual) Eosinophils # (Manual) PT 27.8 H INR 2.55 H Heparin Anti-Xa Level ABG pH ABG pO2 ABG HCO3 ABG O2 Saturation ABG Base Excess ABG Hemoglobin Oxyhemoglobin Sodium 149 H Potassium 5.2 H Chloride 109.1 H Carbon Dioxide 20 L BUN 136 H Creatinine 3.5 H Glucose 271 H POC Glucose Hemoglobin A1c Calcium 8.3 L Phosphorus Magnesium Ferritin AST 241 H ALT 153 H Alkaline Phosphatase 294 H Total Creatine Kinase CK-MB (CK-2) CK-MB (CK-2) Rel Index Troponin T Total Protein 6.0 L Albumin 2.3 L Triglycerides LDL Cholesterol Direct HDL Cholesterol Urine WBC (Auto) Urine Creatinine 04/13/20 04/13/20 04/13/20 05:27 13:53 16:54 WBC RBC Hgb Hct MCV MCHC RDW Lymph % (Auto) [place] % (Auto) Lymph # [place] # Seg Neutrophils % Seg Neuts % (Manual) Lymphocytes % (Manual) Nucleated RBC % Seg Neutrophils # Seg Neutrophils # Man Lymphocytes # (Manual) Monocytes # (Manual) Eosinophils # (Manual) PT INR Heparin Anti-Xa Level ABG pH ABG pO2 ABG HCO3 ABG O2 Saturation ABG Base Excess ABG Hemoglobin Oxyhemoglobin Sodium Potassium Chloride Carbon Dioxide BUN Creatinine Glucose POC Glucose 284 H 320 H 357 H Hemoglobin A1c Calcium Phosphorus Magnesium Ferritin AST ALT Alkaline Phosphatase Total Creatine Kinase CK-MB (CK-2) CK-MB (CK-2) Rel Index Troponin T Total Protein Albumin Triglycerides LDL Cholesterol Direct HDL Cholesterol Urine WBC (Auto) Urine Creatinine 04/14/20 04/14/20 04/14/20 00:13 04:38 05:47 WBC RBC Hgb Hct MCV MCHC RDW Lymph % (Auto) [place] % (Auto) Lymph # [place] # Seg Neutrophils % Seg Neuts % (Manual) Lymphocytes % (Manual) Nucleated RBC % Seg Neutrophils # Seg Neutrophils # Man Lymphocytes # (Manual) Monocytes # (Manual) Eosinophils # (Manual) PT INR Heparin Anti-Xa Level ABG pH ABG pO2 ABG HCO3 ABG O2 Saturation ABG Base Excess -3.6 L ABG Hemoglobin 8.0 L Oxyhemoglobin 94.7 L Sodium Potassium Chloride Carbon Dioxide BUN Creatinine Glucose POC Glucose 251 H 273 H Hemoglobin A1c Calcium Phosphorus Magnesium Ferritin AST ALT Alkaline Phosphatase Total Creatine Kinase CK-MB (CK-2) CK-MB (CK-2) Rel Index Troponin T Total Protein Albumin Triglycerides LDL Cholesterol Direct HDL Cholesterol Urine WBC (Auto) Urine Creatinine 04/14/20 04/14/20 04/14/20 07:00 07:00 07:00 WBC RBC Hgb 7.8 L Hct 25.3 L MCV MCHC RDW Lymph % (Auto) [place] % (Auto) Lymph # [place] # Seg Neutrophils % Seg Neuts % (Manual) Lymphocytes % (Manual) Nucleated RBC % Seg Neutrophils # Seg Neutrophils # Man Lymphocytes # (Manual) Monocytes # (Manual) Eosinophils # (Manual) PT 24.3 H INR 2.15 H Heparin Anti-Xa Level ABG pH ABG pO2 ABG HCO3 ABG O2 Saturation ABG Base Excess ABG Hemoglobin Oxyhemoglobin Sodium Potassium Chloride Carbon Dioxide 20 L BUN 151 H Creatinine 4.1 H Glucose 266 H POC Glucose Hemoglobin A1c Calcium 7.7 L Phosphorus Magnesium Ferritin AST 176 H ALT 123 H Alkaline Phosphatase 259 H Total Creatine Kinase CK-MB (CK-2) CK-MB (CK-2) Rel Index Troponin T Total Protein 5.5 L Albumin 2.1 L Triglycerides LDL Cholesterol Direct HDL Cholesterol Urine WBC (Auto) Urine Creatinine 04/14/20 04/14/20 04/14/20 11:56 12:00 16:13 WBC RBC Hgb Hct MCV MCHC RDW Lymph % (Auto) [place] % (Auto) Lymph # [place] # Seg Neutrophils % Seg Neuts % (Manual) Lymphocytes % (Manual) Nucleated RBC % Seg Neutrophils # Seg Neutrophils # Man Lymphocytes # (Manual) Monocytes # (Manual) Eosinophils # (Manual) PT INR Heparin Anti-Xa Level ABG pH ABG pO2 ABG HCO3 ABG O2 Saturation ABG Base Excess ABG Hemoglobin Oxyhemoglobin Sodium Potassium Chloride 108.0 H Carbon Dioxide 17 L BUN 135 H Creatinine 3.9 H Glucose 265 H POC Glucose 313 H 331 H Hemoglobin A1c Calcium Phosphorus 6.70 H Magnesium 2.40 H Ferritin AST ALT Alkaline Phosphatase Total Creatine Kinase CK-MB (CK-2) CK-MB (CK-2) Rel Index Troponin T Total Protein Albumin Triglycerides LDL Cholesterol Direct HDL Cholesterol Urine WBC (Auto) Urine Creatinine 04/14/20 04/15/20 04/15/20 17:51 00:00 04:34 WBC RBC Hgb Hct MCV MCHC RDW Lymph % (Auto) [place] % (Auto) Lymph # [place] # Seg Neutrophils % Seg Neuts % (Manual) Lymphocytes % (Manual) Nucleated RBC % Seg Neutrophils # Seg Neutrophils # Man Lymphocytes # (Manual) Monocytes # (Manual) Eosinophils # (Manual) PT INR Heparin Anti-Xa Level ABG pH ABG pO2 ABG HCO3 19.9 L ABG O2 Saturation ABG Base Excess -4.1 L ABG Hemoglobin 7.5 L Oxyhemoglobin 94.9 L Sodium Potassium Chloride Carbon Dioxide BUN Creatinine Glucose POC Glucose 347 H 325 H Hemoglobin A1c Calcium Phosphorus Magnesium Ferritin AST ALT Alkaline Phosphatase Total Creatine Kinase CK-MB (CK-2) CK-MB (CK-2) Rel Index Troponin T Total Protein Albumin Triglycerides LDL Cholesterol Direct HDL Cholesterol Urine WBC (Auto) Urine Creatinine 04/15/20 04/15/20 04:57 05:39 WBC RBC Hgb Hct MCV MCHC RDW Lymph % (Auto) [place] % (Auto) Lymph # [place] # Seg Neutrophils % Seg Neuts % (Manual) Lymphocytes % (Manual) Nucleated RBC % Seg Neutrophils # Seg Neutrophils # Man Lymphocytes # (Manual) Monocytes # (Manual) Eosinophils # (Manual) PT INR Heparin Anti-Xa Level ABG pH ABG pO2 ABG HCO3 ABG O2 Saturation ABG Base Excess ABG Hemoglobin Oxyhemoglobin Sodium Potassium 5.1 H Chloride Carbon Dioxide 20 L BUN 163 H Creatinine 4.5 H Glucose 274 H POC Glucose 257 H Hemoglobin A1c Calcium 7.8 L Phosphorus Magnesium Ferritin AST 130 H ALT 105 H Alkaline Phosphatase 254 H Total Creatine Kinase CK-MB (CK-2) CK-MB (CK-2) Rel Index Troponin T Total Protein 5.8 L Albumin 2.0 L Triglycerides LDL Cholesterol Direct HDL Cholesterol Urine WBC (Auto) Urine Creatinine Chest x-ray: image reviewed Allied health notes reviewed: RT
--- NOTE | 2020-04-15 14:34 | Progress Note ---
Assessment and Plan Cont present cardiac management. Cont supportive measures. Wean vasopressors as tolerated. Overall poor prognosis. The patient has been seen in conjunction with Dr. Gil Jimenes who agrees with the assessment and plan of care. - Patient Problems (1) Cardiopulmonary arrest Current Visit: Yes Status: Acute (2) PAD (peripheral artery disease) Current Visit: Yes Status: Chronic (3) S/P BKA (below knee amputation) Current Visit: Yes Status: Chronic (4) Abnormal ECG Current Visit: Yes Status: Acute (5) NSTEMI (non-ST elevated myocardial infarction) Current Visit: Yes Status: Acute (6) Cardiomyopathy Current Visit: Yes Status: Acute (7) CAD (coronary artery disease) Current Visit: Yes Status: Chronic (8) History of coronary artery bypass graft Current Visit: Yes Status: Chronic (9) HTN (hypertension) Current Visit: Yes Status: Chronic Qualifiers: Hypertension type: essential hypertension Qualified Code(s): I10 - Essential (primary) hypertension (10) History of CVA (cerebrovascular accident) Current Visit: Yes Status: Chronic (11) Smoker Current Visit: Yes Status: Chronic (12) NSVT (nonsustained ventricular tachycardia) Current Visit: Yes Status: Acute (13) DYLON (acute kidney injury) Current Visit: Yes Status: Acute (14) Anemia Current Visit: Yes Status: Acute Subjective Date of service: 04/15/20 Principal diagnosis: Septic Shock/Cardiopulmonary Arrest Interval history: pt remains intubated, unresponsive. in SR on tele, amio gtt infusing. requiring vasopressor support. Objective Last Vital Signs Temp 97.2 F L 04/15/20 08:00 Pulse 73 04/15/20 11:31 Resp 15 04/15/20 11:31 BP 109/75 04/15/20 11:31 Pulse Ox 96 04/15/20 11:31 - Physical Examination General: Other (intubated) HEENT: Positive: Normocephaly Neck: Negative: JVD/HJR Cardiac: Positive: Reg Rate and Rhythm, S1/S2 Lungs: Positive: Decreased Breath Sounds, Oxygen, Ventilated Respirations Neuro: Positive: Other (intubated, unresponsive) Abdomen: Positive: Soft, Active Bowel Sounds Skin: Negative: Rash Musculoskeletal: other (s/p left BKA) Extremities: Present: upper extr. pulses, lower extr. pulses, Other (LLE pain, numbness, pale). Absent: edema - Labs and Meds Cardiac Enzymes 04/15/20 Range/Units 04:57 AST 130 H (5-40) units/L Comprehensive Metabolic Panel 04/15/20 Range/Units 04:57 Sodium 142 (137-145) mmol/L Potassium 5.1 H (3.6-5.0) mmol/L Chloride 104.6 (98-107) mmol/L Carbon Dioxide 20 L (22-30) mmol/L BUN 163 H (9-20) mg/dL Creatinine 4.5 H (0.8-1.3) mg/dL Glucose 274 H (75-100) mg/dL Calcium 7.8 L (8.4-10.2) mg/dL AST 130 H (5-40) units/L ALT 105 H (7-56) units/L Alkaline Phosphatase 254 H (35-129) units/L Total Protein 5.8 L (6.3-8.2) g/dL Albumin 2.0 L (3.9-5) g/dL - Imaging and Cardiology EKG: report reviewed, image reviewed Echo: report reviewed (03/20/2020 - EF 30-35%; akinetic mid inferolateral, mid inferior, apical lateral, and apical inferior wall segments), other (12/2014 - EF 55-60%, no significant valvular abnormalities) - EKG Sinus rhythms and dysrhythmias: sinus rhythm Repolarization changes or abnormalities: nonspecific abnormality, ST segment, and/or T wave - Allied health notes Allied health notes reviewed: RT
--- NOTE | 2020-04-15 16:33 | Progress Note ---
Assessment and Plan Assessment and plan: --V. tach cardiac arrest; status post CPR per ACLS Current Visit: Yes Status: Acute On mechanical ventilation, poor prognosis. Full CODE STATUS --Ventricular tachycardia sustained 04/14/2020; resolved Current Visit: Yes Status: Acute s/pAmiodarone bolus, followed by amiodarone drip s/p Cardioversion /lidocaine bolus /lidocaine drip cardiology Dr. López Jimenes advised to closely monitor --Anoxic brain injury/metabolic encephalopathy; Current Visit: Yes Status: Acute Secondary to cardiac arrest, neurology following Very poor prognosis, family aware --Acute CVA: Current Visit: Yes Status: Acute Aspirin and statin, neurology following Poor prognosis, anoxic brain injury --Acute hypoxic respiratory failure; Current Visit: Yes Status: Acute Intubated on ventilatory support Wean as tolerated and extubate, poor prognosis --Transaminitis/Acute liver failure/coagulopathy Current Visit: Yes Status: Acute Secondary to severe sepsis, LFTs trending down Monitor INR, no evidence of bleeding --Sepsis/infected BKA stump/possible pneumonia Current Visit: Yes Status: Acute Wound care and IV antibiotics Vanco cefepime ID following, follow cultures --Septic shock; Current Visit: Yes Status: Acute Continue Levophed, poor prognosis --PAD /acute LLE ischemia s/p BKA Current Visit: Yes Status: Acute 03/19/2020 status post endovascular revascularization 03/19/2020 s/p left lower extremity 4 compartment fasciotomy Management per vascular Recommend aspirin, Plavix and Eliquis However Eliquis was discontinued Left BKA on 03/25/2020 --Non-ST elevation [place] : Current Visit: Yes Status: Acute Patient has history of CABG ,no chest pain. cardiology feels non-STEMI 2 Medical management --Acute renal failure; ATN Current Visit: Yes Status: Acute Worsening renal function, avoid nephrotoxins Poor prognosis, nephro following --Hyperkalemia; Current Visit: Yes Status: Acute Slightly improved, follow electrolytes --Type II diabetes mellitus Current Visit: Yes Status: Acute Accu-Chek sliding scale coverage ADA diet Long-acting insulin as needed, HbA1c 11 --Nicotine dependence Current Visit: Yes Status: Acute Smoking cessation nicotine patch as needed --Anemia; Current Visit: Yes Status: Acute Gradual drop in H&H, closely monitor and transfuse as needed --Severe protein calorie malnutrition Current Visit: Yes Status: Acute Nutrition supplements and supportive care Nutrition consult if needed --DVT prophylaxis Current Visit: Yes Status: Acute . Coagulopathy/SCD -- Full code status Current Visit: Yes Status: Acute Discharge planning issues Very poor prognosis recommend hospice/palliative care Patient is critically ill with very poor prognosis Multiple discussions were held with patient's 2 sons Mehran Melchor They are aware of patient's critical condition, multiorgan failure anoxic brain injury and poor prognosis However continue to request full CODE STATUS Critical care time 40 minutes The high probability of a clinically significant, sudden or life threatening deterioration of the [Cardiac , neuro , renal , endocrine , GI , metabolic and respiratory] system(s) required my full and direct attention, intervention and personal management.The aggregate critical care time was [40] minutes. This time is in addition to time spent performing , reported procedures but includes the following: [x] Data Review and interpretation [x] Patient assessment and monitoring of vital signs [x] Documentation [x] Medication orders and management We will closely monitor the patient and adjust the management as needed Plan of care reviewed with the patient's nurse History Interval history: I have seen and examined the patient at the bedside in ICU this morning Patient's chart medications overnight events reviewed Patient remains critically ill intubated on vent Unresponsive, absent reflexes, anoxic brain injury Vital signs noted Hospitalist Physical - Constitutional Vitals: Temp Pulse Resp BP Pulse Ox 98.2 F 72 17 101/64 86 04/15/20 16:00 04/15/20 16:20 04/15/20 14:30 04/15/20 16:20 04/15/20 16:20 General appearance: Present: well-nourished, obese (Morbidly), other (Unresponsive, intubated on vent) - EENT Eyes: Present: PERRL (Absent reflexes) ENT: other (ET tube and Dobbhoff in place) - Neck Neck: Present: supple - Respiratory Respiratory effort: normal Respiratory: bilateral: diminished, rhonchi, negative: rales, wheezing - Cardiovascular Rhythm: irregularly irregular Heart Sounds: Present: S1 & S2 - Extremities Extremities: no ischemia, abnormal (Left BKA dressing in place) Extremity abnormal: edema - Abdominal General gastrointestinal: soft, non-tender, non-distended, normal bowel sounds - Integumentary Integumentary: Present: clear, pale (Edema) - Psychiatric Psychiatric: other (Unresponsive) - Neurologic Neurologic: other (Unresponsive absent reflexes) HEART Score - HEART Score Troponin: Troponin T 3.950 ng/mL (0.00-0.029) H* 04/11/20 18:17 Results - Labs CBC & Chem 7: 04/14/20 07:00 04/15/20 04:57 Labs: Laboratory Last Values WBC 13.3 K/mm3 (4.5-11.0) H 04/13/20 04:35 RBC 2.68 M/mm3 (3.65-5.03) L 04/13/20 04:35 Hgb 7.8 gm/dl (11.8-15.2) L 04/14/20 07:00 Hct 25.3 % (35.5-45.6) L 04/14/20 07:00 MCV 94 fl (84-94) 04/13/20 04:35 MCH 30 pg (28-32) 04/13/20 04:35 MCHC 32 % (32-34) 04/13/20 04:35 RDW 17.4 % (13.2-15.2) H 04/13/20 04:35 Plt Count 167 K/mm3 (140-440) 04/13/20 04:35 Lymph % (Auto) 9.1 % (13.4-35.0) L 04/13/20 04:35 [place] % (Auto) 6.6 % (0.0-7.3) 04/13/20 04:35 Eos % (Auto) 0.1 % (0.0-4.3) 04/13/20 04:35 Baso % (Auto) 0.2 % (0.0-1.8) 04/13/20 04:35 Lymph # 1.2 K/mm3 (1.2-5.4) 04/13/20 04:35 [place] # 0.9 K/mm3 (0.0-0.8) H 04/13/20 04:35 Eos # 0.0 K/mm3 (0.0-0.4) 04/13/20 04:35 Baso # 0.0 K/mm3 (0.0-0.1) 04/13/20 04:35 Add Manual Diff Complete 04/11/20 18:17 Total Counted 100 04/11/20 18:17 Seg Neutrophils % 84.0 % (40.0-70.0) H 04/13/20 04:35 Seg Neuts % (Manual) 89.0 % (40.0-70.0) H 04/11/20 18:17 Band Neutrophils % 0 % 04/11/20 18:17 Lymphocytes % (Manual) 7.0 % (13.4-35.0) L 04/11/20 18:17 Reactive Lymphs % (Man) 0 % 04/11/20 18:17 Monocytes % (Manual) 4.0 % (0.0-7.3) 04/11/20 18:17 Eosinophils % (Manual) 0 % (0.0-4.3) 04/11/20 18:17 Basophils % (Manual) 0 % (0.0-1.8) 04/11/20 18:17 Metamyelocytes % 0 % 04/11/20 18:17 Myelocytes % 0 % 04/11/20 18:17 Promyelocytes % 0 % 04/11/20 18:17 Blast Cells % 0 % 04/11/20 18:17 Nucleated RBC % Not Reportable 04/11/20 18:17 Seg Neutrophils # 11.1 K/mm3 (1.8-7.7) H 04/13/20 04:35 Seg Neutrophils # Man 8.8 K/mm3 (1.8-7.7) H 04/11/20 18:17 Band Neutrophils # 0.0 K/mm3 04/11/20 18:17 Lymphocytes # (Manual) 0.7 K/mm3 (1.2-5.4) L 04/11/20 18:17 Abs React Lymphs (Man) 0.0 K/mm3 04/11/20 18:17 Monocytes # (Manual) 0.4 K/mm3 (0.0-0.8) 04/11/20 18:17 Eosinophils # (Manual) 0.0 K/mm3 (0.0-0.4) 04/11/20 18:17 Basophils # (Manual) 0.0 K/mm3 (0.0-0.1) 04/11/20 18:17 Metamyelocytes # 0.0 K/mm3 04/11/20 18:17 Myelocytes # 0.0 K/mm3 04/11/20 18:17 Promyelocytes # 0.0 K/mm3 04/11/20 18:17 Blast Cells # 0.0 K/mm3 04/11/20 18:17 WBC Morphology Not Reportable 04/11/20 18:17 Hypersegmented Neuts Not Reportable 04/11/20 18:17 Hyposegmented Neuts Not Reportable 04/11/20 18:17 Hypogranular Neuts Not Reportable 04/11/20 18:17 Smudge Cells Not Reportable 04/11/20 18:17 Toxic Granulation Not Reportable 04/11/20 18:17 Toxic Vacuolation Not Reportable 04/11/20 18:17 Dohle Bodies Not Reportable 04/11/20 18:17 Pelger-Huet Anomaly Not Reportable 04/11/20 18:17 Ananya Rods Not Reportable 04/11/20 18:17 Platelet Estimate Not Reportable 04/11/20 18:17 Clumped Platelets Not Reportable 04/11/20 18:17 Plt Clumps, EDTA Not Reportable 04/11/20 18:17 Large Platelets Not Reportable 04/11/20 18:17 Giant Platelets Not Reportable 04/11/20 18:17 Platelet Satelliting Not Reportable 04/11/20 18:17 Plt Morphology Comment Not Reportable 04/11/20 18:17 RBC Morphology Normal 04/11/20 18:17 Dimorphic RBCs Not Reportable 04/11/20 18:17 Polychromasia Not Reportable 04/11/20 18:17 Hypochromasia Not Reportable 04/11/20 18:17 Poikilocytosis Not Reportable 04/11/20 18:17 Anisocytosis Not Reportable 04/11/20 18:17 Microcytosis Not Reportable 04/11/20 18:17 Macrocytosis Not Reportable 04/11/20 18:17 Spherocytes Not Reportable 04/11/20 18:17 Pappenheimer Bodies Not Reportable 04/11/20 18:17 Sickle Cells Not Reportable 04/11/20 18:17 Target Cells Not Reportable 04/11/20 18:17 Tear Drop Cells Not Reportable 04/11/20 18:17 Ovalocytes Not Reportable 04/11/20 18:17 Helmet Cells Not Reportable 04/11/20 18:17 Light-[place] Bodies Not Reportable 04/11/20 18:17 Grady Rings Not Reportable 04/11/20 18:17 [place] Cells Not Reportable 04/11/20 18:17 Bite Cells Not Reportable 04/11/20 18:17 Crenated Cell Not Reportable 04/11/20 18:17 Elliptocytes Not Reportable 04/11/20 18:17 Acanthocytes (Spur) Not Reportable 04/11/20 18:17 Rouleaux Not Reportable 04/11/20 18:17 Hemoglobin C Crystals Not Reportable 04/11/20 18:17 Schistocytes Not Reportable 04/11/20 18:17 Malaria parasites Not Reportable 04/11/20 18:17 Steven Bodies Not Reportable 04/11/20 18:17 Hem Pathologist Commnt No 04/11/20 18:17 PT 24.3 Sec. (12.2-14.9) H 04/14/20 07:00 INR 2.15 (0.87-1.13) H 04/14/20 07:00 APTT 27.7 Sec. (24.2-36.6) 03/18/20 18:28 Heparin Anti-Xa Level 0.10 U.I./ml (0.3-0.7) L 03/25/20 04:06 ABG pH 7.418 pH Units (7.350-7.450) 04/15/20 04:34 ABG pCO2 31.6 mm Hg 04/15/20 04:34 ABG pO2 86.7 mm Hg (80.0-90.0) 04/15/20 04:34 ABG HCO3 19.9 mmol/L (20.0-26.0) L 04/15/20 04:34 ABG O2 Saturation 97.1 % (95.0-99.0) 04/15/20 04:34 ABG O2 Content 10.1 (0.0-44) 04/15/20 04:34 ABG Base Excess -4.1 mmol/L (-2.0-3.0) L 04/15/20 04:34 ABG Hemoglobin 7.5 gm/dl (14.0-18.0) L 04/15/20 04:34 ABG Carboxyhemoglobin 1.6 % (0.0-5.0) 04/15/20 04:34 ABG Methemoglobin 0.6 % (0.0-1.5) 04/15/20 04:34 Oxyhemoglobin 94.9 % (95.0-99.0) L 04/15/20 04:34 FiO2 30 % 04/15/20 04:34 Sodium 142 mmol/L (137-145) 04/15/20 04:57 Potassium 5.1 mmol/L (3.6-5.0) H 04/15/20 04:57 Chloride 104.6 mmol/L (98-107) 04/15/20 04:57 Carbon Dioxide 20 mmol/L (22-30) L 04/15/20 04:57 Anion Gap 23 mmol/L 04/15/20 04:57 BUN 163 mg/dL (9-20) H 04/15/20 04:57 Creatinine 4.5 mg/dL (0.8-1.3) H 04/15/20 04:57 Estimated GFR 14 ml/min 04/15/20 04:57 BUN/Creatinine Ratio 36 % 04/15/20 04:57 Glucose 274 mg/dL (75-100) H 04/15/20 04:57 POC Glucose 257 (70-105) H 04/15/20 05:39 Hemoglobin A1c 11.0 % (4-6) H 03/18/20 22:21 Calcium 7.8 mg/dL (8.4-10.2) L 04/15/20 04:57 Phosphorus 6.70 mg/dL (2.5-4.5) H 04/14/20 12:00 Magnesium 2.40 mg/dL (1.7-2.3) H 04/14/20 12:00 Ferritin 444.2 ng/mL (30.0-300.0) H 04/06/20 07:14 Total Bilirubin 0.90 mg/dL (0.1-1.2) 04/15/20 04:57 AST 130 units/L (5-40) H 04/15/20 04:57 ALT 105 units/L (7-56) H 04/15/20 04:57 Alkaline Phosphatase 254 units/L (35-129) H 04/15/20 04:57 Ammonia 38.0 umol/L (25-60) 04/12/20 07:22 Total Creatine Kinase 351 units/L (55-170) H 04/11/20 18:17 CK-MB (CK-2) 3.5 ng/mL (0.0-4.0) 04/11/20 18:17 CK-MB (CK-2) Rel Index 0.9 (0-4) 04/11/20 18:17 Troponin T 3.950 ng/mL (0.00-0.029) H* 04/11/20 18:17 Total Protein 5.8 g/dL (6.3-8.2) L 04/15/20 04:57 Albumin 2.0 g/dL (3.9-5) L 04/15/20 04:57 Albumin/Globulin Ratio 0.5 % 04/15/20 04:57 Triglycerides 99 mg/dL (2-149) 04/11/20 18:17 Cholesterol 93 mg/dL (50-199) 04/11/20 18:17 LDL Cholesterol Direct 60 mg/dL (50-130) 04/11/20 18:17 HDL Cholesterol 19 mg/dL (40-59) L 04/11/20 18:17 Cholesterol/HDL Ratio 4.89 % 04/11/20 18:17 Urine Color Yellow (Yellow) 04/11/20 16:30 Urine Turbidity Slightly-cloudy (Clear) 04/11/20 16:30 Urine pH 5.0 (5.0-7.0) 04/11/20 16:30 Ur Specific [place] 1.013 (1.003-1.030) 04/11/20 16:30 Urine Protein <15 mg/dl mg/dL (Negative) 04/11/20 16:30 Urine Glucose (UA) Neg mg/dL (Negative) 04/11/20 16:30 Urine Ketones Neg mg/dL (Negative) 04/11/20 16:30 Urine Blood Lg (Negative) 04/11/20 16:30 Urine Nitrite Neg (Negative) 04/11/20 16:30 Urine Bilirubin Neg (Negative) 04/11/20 16:30 Urine Urobilinogen < 2.0 mg/dL (<2.0) 04/11/20 16:30 Ur Leukocyte Esterase Neg (Negative) 04/11/20 16:30 Urine WBC (Auto) 16.0 /HPF (0.0-6.0) H 04/11/20 16:30 Urine RBC (Auto) 19.0 /HPF (0.0-6.0) 04/11/20 16:30 U Epithel Cells (Auto) 1.0 /HPF (0-13.0) 04/11/20 16:30 Urine Mucus Few /HPF 04/11/20 16:30 Urine Yeast (Budding) Few /HPF 04/11/20 16:30 Urine Eosinophils None seen (None Seen) 04/11/20 16:30 Urine Creatinine 60.0 mg/dL (0.1-20.0) H 04/11/20 16:30 Urine Sodium 26 mmol/L 04/11/20 16:30 Random Vancomycin 18.3 ug/mL (0-40.0) 04/13/20 06:34 Coronavirus (PCR) Negative (Negative) 04/03/20 08:00 Hep Bs Antigen Non-reactive (Negative) 04/06/20 07:14 Hepatitis C Antibody Non-reactive (NonReactive) 04/06/20 07:14 Blood Type B POSITIVE 03/25/20 11:42 Antibody Screen Negative 03/25/20 11:42 Microbiology: Microbiology 04/11/20 17:20 Tracheal Aspirate Sputum Culture - Final Dalhia Albicans - Diagnostic Impressions Diagnostic Impressions: Echocardiogram 03/19/20 12:49 Transthoracic Echocardiogram Indication: CAD and Abnormal EKG HR: 110 Conclusions *The study is technically limited due to patient body habitus. *The left ventricular chamber size is mildly dilated. *Global left ventricular systolic function is moderate to severely decreased. *The estimated ejection fraction is 30-35%. *The basal inferolateral, and basal inferior wall segments are normal. *The mid inferolateral, mid inferior, apical lateral, and apical inferior wall segments are akinetic. *The left atrial chamber size is normal. Findings Procedure Info: The study is technically limited due to patient body habitus. The study was technically limited due to the patient's inability to lay in the left lateral decubitus position. Left Ventricle: The left ventricular chamber size is mildly dilated. Global left ventricular systolic function is moderate to severely decreased. The estimated ejection fraction is 30-35%. The basal inferolateral, and basal inferior wall segments are normal. The mid inferolateral, mid inferior, apical lateral, and apical inferior wall segments are akinetic. Left Atrium: The left atrial chamber size is normal. Right Ventricle: The right ventricle is not well visualized. Right Atrium: The right atrium is not well visualized. The right atrial cavity size is normal. Aortic Valve: The aortic valve is trileaflet. Mitral Valve: The mitral valve leaflets are moderately thickened. There is mild mitral regurgitation. Tricuspid Valve: The tricuspid valve is not well visualized. There is trace tricuspid regurgitation. Pulmonic Valve: The pulmonic valve is not well visualized. Pericardium: There is no pericardial effusion. Aorta: The aorta appears normal. Venous: The venous system is not well visualized. Contrast: Definity was used to optimize study. Measurements Chambers 2D Name Value Normal Range IVSd (2D) 0.94 cm (0.6 - 1.1) LVPWd (2D) 0.94 cm (0.6 - 1.1) LVIDd (2D) 6.15 cm (3.7 - 5.6) LVIDs (2D) 5.2 cm (2 - 3.8) LV FS (2D) 15.5 % - EF Teichholz (2D) 32.08 % - Ao root diameter (2D) 2.77 cm (2 - 3.7) Volumes/Mass Name Value Normal Range LA ESV SP 4CH (A/L) 73.77 ml - LA ESV SP 2CH (A/L) 66.45 ml - LA ESV BP (A/L) 71.61 ml - LA ESV BP (A/L) index 30.6 ml/m2 - LA ESV SP 4CH (MOD) 72.55 ml - LA ESV SP 2CH (MOD) 65.34 ml - LA ESV BP (MOD) 70.27 ml - LA ESV BP (MOD) index 30.03 ml/m2 - Diastolic/Systolic Function Name Value Normal Range MV E-wave Vmax 0.85 m/sec - MV deceleration time 69.14 msec - MV A-wave Vmax 0.89 m/sec - MV E:A ratio 0.95 ratio - Aortic Valve Name Value Normal Range AV Vmax 0.96 m/sec - AV VTI 11.83 cm - AV peak gradient 3.68 mmHg - AV mean gradient 1.6 mmHg - LVOT diameter 2.19 cm - LVOT Vmax 0.86 m/sec - LVOT VTI 13.33 cm - LVOT peak gradient 2.96 mmHg - LVOT mean gradient 1.48 mmHg - SV LVOT 50.08 ml - DEYA (continuity Vmax) 3.37 cm2 - DEYA (continuity VTI) 4.23 cm2 - Ascending Ao 2.92 cm - Pulmonic Valve/Qp:Qs Name Value Normal Range PV Vmax 1.08 m/sec - PV VTI 15.88 cm - PV peak gradient 4.7 mmHg - PV mean gradient 2.18 mmHg - RVOT Vmax 0.82 m/sec - RVOT VTI 11.48 cm - RVOT peak gradient 2.67 mmHg - Wall[place] BAS Not Seen BA Not Seen BAL Not Seen BAY Normal BI Normal BIS Not Seen MAS Not Seen MA Not Seen MAL Not Seen MIL Akinetic FL Akinetic MIS Not Seen Not Seen AA Not Seen AL Akinetic AI Akinetic APEX Not Seen Tyson/IV: Voiding Method Indwelling Catheter IV Catheter Type [Right Peripheral IV Forearm] IV Catheter Type [Right INT / Saline Lock Antecubital] IV Catheter Type [Right Hand] Peripheral IV IV Catheter Type [Left Forearm INT / Saline Lock ] IV Catheter Type [Left Upper PICC Line arm] IV Catheter Type [Left INT / Saline Lock Antecubital] Active Medications - Current Medications Current Medications: Generic Name Dose Route Start Last Admin Trade Name Freq PRN Reason Stop Dose Admin Albuterol 2.5 mg 04/01/20 00:03 Proventil IH Q6HRT PRN Shortness Of Breath Lipase/Protease/Amylase 1 each 04/10/20 17:39 Bernice Forrester 10,500 Unit FEEDTUBE PRN PRN For Clogged Feeding Tube Arformoterol Tartrate 15 mcg 03/19/20 20:00 04/15/20 08:08 Brovana Nebu IH 15 mcg Q12HRT LOI Administration Aspirin 81 mg 04/10/20 16:00 04/15/20 09:32 Halfprin Ec PO 81 mg QDAY LOI Administration Atorvastatin Calcium 40 mg 03/19/20 22:00 04/14/20 21:19 Lipitor PO 40 mg QHS LOI Administration Budesonide 0.5 mg 03/19/20 20:00 04/15/20 08:08 Pulmicort IH 0.5 mg Q12HRT LOI Administration Clopidogrel Bisulfate 75 mg 03/19/20 10:00 04/15/20 09:32 Plavix PO 75 mg QDAY LOI Administration Dextrose 50 ml 03/18/20 22:21 04/08/20 07:42 D50w (25gm) Syringe IV 50 ml Q30MIN PRN Administration Hypoglycemia Protocol Diphenhydramine HCl 25 mg 03/19/20 12:44 Benadryl IV Q4H PRN Itching Fentanyl 50 mcg 04/11/20 20:22 Sublimaze IV Q10MIN PRN ANALGESIA Hydrophilic Ointment 1 applic 04/11/20 20:22 Vaseline Lip Therapy TP Q2HR PRN Dry Lips Norepinephrine 4 mg in 250 mls @ 7.5 mls/hr 04/11/20 18:00 04/15/20 15:57 Levophed Drip 4 Mg/Ns 250 Ml IV 6 mcg/min TITR LOI 22.5 mls/hr Titration Protocol 2 MCG/MIN Fentanyl Citrate 2,000 mcg in 100 mls @ 6.405 mls/hr 04/11/20 21:00 Fentanyl Drip Premix IV TITR LOI Protocol 1 MCG/KG/HR Cefepime HCl 1 gm in 100 mls @ 200 mls/hr 04/15/20 10:00 04/15/20 09:33 Cefepime/Ns 1 Gm/100 Ml IV 200 mls/hr Q24HR LOI Administration Protocol Amiodarone HCl 900 mg/ 500 mls @ 33.333 mls/hr 04/14/20 12:00 04/15/20 15:57 Dextrose IV 1 mg/min DIRECT LOI 33.333 mls/hr Administration Protocol 1 MG/MIN Lidocaine HCl/Dextrose 2,000 mg in 500 mls @ 15 mls/hr 04/14/20 17:00 04/15/20 04:45 Xylocaine/D5w 2gm/500ml Drip IV 0 mg/min DIRECT LOI 0 mls/hr Titration Protocol 1 MG/MIN Insulin Human Isoph/Insulin Regular 5 unit 04/14/20 11:00 04/15/20 16:32 Humulin 70/30 SUB-Q 5 unit BIDDIAB LOI Administration Insulin Human Lispro 0 unit 04/12/20 00:00 04/15/20 12:38 Humalog SUB-Q 8 unit Q6HR LOI Administration Protocol Ipratropium [place] 0.5 mg 04/01/20 00:05 Atrovent IH Q6HRT PRN Shortness Of Breath Lansoprazole 30 mg 04/12/20 10:00 04/15/20 09:32 Prevacid Solutab FEEDTUBE 30 mg BID LOI Administration Magnesium Hydroxide 30 ml 03/18/20 22:21 Milk Of Magnesia PO Q4H PRN Constipation Metoprolol Tartrate 50 mg 03/19/20 22:00 04/15/20 09:33 Metoprolol PO Not Given BID OLI Multi-Ingred Cream/Lotion/Oil/Oint 1 applic 04/11/20 20:22 Artificial Tears Ophth Oint OU Q4HR PRN Dry Eye(s) Naloxone HCl 0.1 mg 03/19/20 12:44 Naloxone IV Q2MIN PRN Res Rate </= 8 or 02 SAT < 92% Ondansetron HCl 4 mg 03/18/20 22:21 04/05/20 01:46 Zofran IV 4 mg Q8H PRN Administration Nausea And Vomiting Simple Syrup 15 ml 04/10/20 17:39 Simple Syrup FEEDTUBE PRN PRN Hypoglycemia Simple Syrup 30 ml 04/10/20 17:39 Simple Syrup FEEDTUBE PRN PRN Hypoglycemia Sodium Bicarbonate 325 mg 04/10/20 17:39 Sodium Bicarbonate FEEDTUBE PRN PRN For Clogged Feeding Tube Sodium Chloride 10 ml 03/19/20 10:00 04/15/20 09:33 Sodium Chloride Flush Syringe 10 Ml IV 10 ml BID LOI Administration Sodium Chloride 10 ml 03/18/20 22:21 04/11/20 05:57 Sodium Chloride Flush Syringe 10 Ml IV 10 ml PRN PRN Administration LINE FLUSH Nutrition/Malnutrition Assess - Dietary Evaluation Nutrition/Malnutrition Findings: Nutrition Notes Start: 03/19/20 11:59 Freq: Status: Active Protocol: Document 04/15/20 12:13 LM (Rec: 04/15/20 12:25 LM [id number]) Nutrition Notes Initial or Follow up Reassessment Current Diagnosis COPD,Diabetes Other Pertinent Diagnosis (L) LE ischemia s/p (L) BKA, STARR, NSTEMI Current Diet Nepro 1.8 at 45ml/hr Labs/Tests K 5.1 BUN 163 Cr 4.5 BG 274 Pertinent Medications Humulin Humalog Levophed Height 6 ft Weight 128.1 kg [place] Body Weight (kg) 80.90 BMI 38.2 Weight Status Obese Subjective/Other Information Per RN notes pt is tolerating TF at goal. Burn Absent Trauma Absent Current % PO Negligible Minimum of two criteria No #1 Nutrition Diagnosis Increased nutrient needs ( specify in comment below) Diagnosis Progress(for reassessment Continues documentation) Is patient on ventilator? Yes Is Patient Ambulatory and/or Out of Bed No REE-(Obion-St. Jeor-confined to bed) 2588.544 Kcal/Kg value to use for calculation 16 Approximate Energy Requirements Using 2049 kcal/Kg Calculation Used for Recommendations Kcal/kg Additional Notes Protein: 162g (>/= 2g/kg using IBW 81kg) Fluid: 1ml/kcal Nutrition Intervention Change Diet Order: continue TF Nutrition Support: Nepro 1.8 at 45ml/hr Flush 200ml q4h Kcal 1,944 Protein (gm) 87 Fluid (mL) 785 Goal #1 TF tolerance Goal #2 Meet at least 75% of energy and protein needs Anticipated Discharge Needs: unable to determine at this time Follow-Up By: 04/18/20 Additional Comments F/U for TF tolerance, K lab
--- NOTE | 2020-04-15 17:33 | Progress Note ---
Assessment and Plan Cultures: wound culture: normal skin stan A/P: 54-year-old male with prior CVA, hypertension, diabetes, coronary artery disease, history of DVT and PE, peripheral vascular disease who was admitted to the hospital with a cold left lower extremity. 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 CXR 04/08/2020 with almost complete opacification of left hemithorax. #Left BKA stump drainage: Vascular is following. No fever. Would culture with skin stan. Serous drainage from Left BKA stump, ?mild cellulitis. Short course of abx planned. #Peripheral vascular disease #Diabetes mellitus, uncontrolled: Maintain glycemic control #Acute kidney injury: Renally dose antibiotics #Elevated LFTs /transaminitis: Question of cholecystitis. Unable to perform a HIDA since he could not lay flat. GI and surgery following. #Acute encephalopathy: CT head with late subacute infarction in [employer] territory. Recs: continue Cefepime + Vancomycin, renally dosed, original end date was today, however with CODE BLUE and pressor requirements, will probably stop tomorrow. overall poor prognosis Joanne Baker MD [facility] ([facility]) M: [phone] O: [phone] F: [phone] Subjective Date of service: 04/15/20 Principal diagnosis: Septic Shock/Cardiopulmonary Arrest Interval history: Afebrile, no acute change. Objective - Exam Narrative Exam: Constitutional: intubated, on the vent Head, Ears, Nose: Normocephalic, atraumatic. Eyes: Conjunctivae/corneas clear. No icterus. No ptosis. Neck: intubated Cardiovascular: S1, S2 normal. Respiratory: AE fair b/l GI: Soft, non-tender; bowel sounds normal. No peritoneal signs Musculoskeletal: Left BKA stump in dressing Skin: No rash or abscess Hem/Lymphatic: No palpable cervical or supraclavicular nodes. No lymphangitis Psych: No agitation Neurological: intubated, unresponsive, on the vent - Constitutional Vitals: Vital Signs Temp Pulse Resp BP Pulse Ox 98.2 F 72 20 99/63 87 04/15/20 16:00 04/15/20 17:00 04/15/20 17:00 04/15/20 17:00 04/15/20 17:00 Temperature -Last 24 Hours Temperature 98.2 F Temperature 97.5 F Temperature 97.2 F Temperature 99 F Temperature 99.4 F Temperature 99.5 F - Labs CBC & Chem 7: 04/14/20 07:00 04/15/20 04:57 Labs: Abnormal lab results 04/14/20 04/15/20 04/15/20 Range/Units 17:51 00:00 04:34 ABG HCO3 19.9 L (20.0-26.0) mmol/L ABG Base Excess -4.1 L (-2.0-3.0) mmol/L ABG Hemoglobin 7.5 L (14.0-18.0) gm/dl Oxyhemoglobin 94.9 L (95.0-99.0) % Potassium (3.6-5.0) mmol/L Carbon Dioxide (22-30) mmol/L BUN (9-20) mg/dL Creatinine (0.8-1.3) mg/dL Glucose (75-100) mg/dL POC Glucose 347 H 325 H (70-105) Calcium (8.4-10.2) mg/dL AST (5-40) units/L ALT (7-56) units/L Alkaline Phosphatase (35-129) units/L Total Protein (6.3-8.2) g/dL Albumin (3.9-5) g/dL 04/15/20 04/15/20 Range/Units 04:57 05:39 ABG HCO3 (20.0-26.0) mmol/L ABG Base Excess (-2.0-3.0) mmol/L ABG Hemoglobin (14.0-18.0) gm/dl Oxyhemoglobin (95.0-99.0) % Potassium 5.1 H (3.6-5.0) mmol/L Carbon Dioxide 20 L (22-30) mmol/L BUN 163 H (9-20) mg/dL Creatinine 4.5 H (0.8-1.3) mg/dL Glucose 274 H (75-100) mg/dL POC Glucose 257 H (70-105) Calcium 7.8 L (8.4-10.2) mg/dL AST 130 H (5-40) units/L ALT 105 H (7-56) units/L Alkaline Phosphatase 254 H (35-129) units/L Total Protein 5.8 L (6.3-8.2) g/dL Albumin 2.0 L (3.9-5) g/dL
[2020-04-16] MEDS: INSULIN LISPRO 100 UNIT/ML VIAL 3 mL SUB-Q SCH ×4 (00:50→17:30)
[2020-04-16] MEDS ORDERED: AMIODARONE 150 MG/3 ML INJ IV ONE (01:40)
--- NOTE | 2020-04-16 03:21 | XRay Report ---
CHEST 1 VIEW INDICATION: follow up respiratory failure. COMPARISON: Previous day. FINDINGS: Support devices: Unchanged. Heart: Stable cardiomegaly. Lungs/Pleura: Improving aeration at the bases. Improving edema. Additional findings: None. IMPRESSION: Interval improvement. Signer Name: Osmani Condon MD Signed: 04/16/2020 3:16 AM Workstation Name: [id number]
[2020-04-16 04:53] LABS: ABG Base Excess -6.9 mmol/L (-2.0-3.0); ABG HCO3 18.8 mmol/L (20.0-26.0); ABG Methemoglobin 0.5 % (0.0-1.5); ABG Oxygen Saturation 97.5 % (95.0-99.0); ABG PCO2 38.8 mm Hg; ABG PH 7.304 pH Units (7.350-7.450); ABG PO2 74.6 mm Hg (80.0-90.0)
[2020-04-16 05:50] LABS: Albumin 2.3 g/dL (3.9-5); Calcium 7.7 mg/dL (8.4-10.2)
[2020-04-16] MEDS: AMIODARONE 900 MG in DEXTROSE 5% IN WATER 482 ML IV SCH ×2 (06:43→20:19)
[2020-04-16] MEDS: BUDESONIDE 0.5 MG/2 ML NEBU IH SCH ×2 (07:52→21:13)
[2020-04-16] MEDS: ARFORMOTEROL 15 MCG/2 ML NEBU IH SCH ×2 (07:52→21:13)
[2020-04-16] MEDS ORDERED: INSULIN REGULAR, HUMAN 100 UNIT/ML 3ML VIAL IV ONE ×3 (08:00→21:19)
[2020-04-16] MEDS ORDERED: SODIUM POLYSTYRENE 15 GM/60 ML ORAL LIQD PO ONE ×3 (08:00→17:56)
[2020-04-16] MEDS ORDERED: DEXTROSE 50% IN WATER (25GM) 50 ML SYRINGE IV ONE ×2 (08:00→21:19)
[2020-04-16] MEDS: CEFEPIME/NS 1 GM/100 ML 1 GM/100 ML BAG IV SCH (09:08)
[2020-04-16] MEDS: INSULIN NPH/REGULAR 70/30 INJ SUB-Q SCH ×2 (09:08→17:30)
[2020-04-16] MEDS: ASPIRIN EC 81 MG TAB PO SCH ×2 (09:10→11:51)
[2020-04-16] MEDS: METOPROLOL TARTRATE 50 MG TAB PO SCH ×2 (09:28→21:53)
[2020-04-16] MEDS: LANSOPRAZOLE 30 MG SOLUTAB FEEDTUBE SCH (09:29)
--- NOTE | 2020-04-16 09:35 | Progress Note ---
Assessment and Plan 1. Acute kidney injury: Vasomotor DYLON in the setting of sepsis and hypotension. US negative for hydro. UA results noted. Monitor renal function. Creatinine level continue to increase. Avoid nephrotoxic agents. Meds dosage based on GFR. Monitor for ACCT EXEC needs. Renal function continue to decline and associated with hyperkalemia and metabolic acidosis, pt need hemodialysis. Discussed with his son (04/15) over the phone about the possibility of hemodialysis. I was planning on starting him on hemodialysis today but he has absent brain stem reflexes and possibly Brain per Neuro eval. If this is the case it will be futile to do dialysis. He is still not very stable to undergo hemodialysis due to shock and intermittent V.tach. 2. FEN: Hyperkalemia, Insulin-D50 & kayexalate ordered, monitor. Metabolic acidosis, monitor. Hypernatremia, improved with water flushes, monitor. Monitor lytes and volume status. 3. Sepsis: PNA vs L stump infection. Followed by ID. 4. Shock / Hypotension: On Levophed. Monitor BP. 5. Acute hypoxic respiratory failure: Intubated 04/11, on vent. 6. s/p Cardiac arrest. 7. Acute left lower extremity ischemia: 03/19/2020 status post endovascular revascularization. 03/19/2020 s/p left lower extremity 4 compartment fasciotomy. 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 8. Non-ST elevation [place] : H/o CAD s/p CABG. Followed by Cards. 9. Acute systolic CHF; EF 30-35%: Beta-blockers. 10. Intermittent V.tach: On IV Amio and PO Metoprolol. 11. Anoxic encephalopathy: Followed by Neurology. 12. Elevated Transaminases: Improving. Seen by GI. 13. DM with hyperglycemia: Accu-Check, sliding scale coverage, ADA diet. HbA1C 11. 14. Anemia: Closely monitor and transfuse as needed. - Subjective: Patient was seen and examined at the bedside. In ICU. D/w RN at the bedside. - General Appearance General appearance: well-developed, obese, appears stated age, intubated, on vent HEENT: ATNC Neck: Trachea midline Respiratory: appears ctab Cardiology: regular, S1S2, no murmur Gastrointestinal: soft, not tender, not distended, BS heard Integumentary: L BKA dressing Neurologic: not responding Ext: extremity edema noted : acosta catheter, scrotal edema noted Subjective Date of service: 04/16/20 Principal diagnosis: Septic Shock/Cardiopulmonary Arrest Objective - Vital Signs Vital signs: Vital Signs - 12hr 04/15/20 04/15/20 04/15/20 21:39 21:45 22:00 Temperature Pulse Rate 66 67 66 Pulse Rate [ Anterior Bilateral Throughout] Pulse Rate [ From Monitor] Respiratory 17 18 Rate Respiratory Rate [Anterior Bilateral Throughout] Respiratory Rate [Left Leg] Respiratory Rate [left foot ] Blood Pressure 84/53 95/62 97/57 O2 Sat by Pulse 92 92 Oximetry 04/15/20 04/15/20 04/15/20 22:15 22:19 22:30 Temperature Pulse Rate 65 66 Pulse Rate [ Anterior Bilateral Throughout] Pulse Rate [ From Monitor] Respiratory 16 15 Rate Respiratory Rate [Anterior Bilateral Throughout] Respiratory 19 Rate [Left Leg] Respiratory 19 Rate [left foot ] Blood Pressure 92/58 85/55 O2 Sat by Pulse 92 92 Oximetry 04/15/20 04/15/20 04/15/20 22:45 23:00 23:15 Temperature Pulse Rate 65 66 66 Pulse Rate [ Anterior Bilateral Throughout] Pulse Rate [ From Monitor] Respiratory 20 17 19 Rate Respiratory Rate [Anterior Bilateral Throughout] Respiratory Rate [Left Leg] Respiratory Rate [left foot ] Blood Pressure 90/57 91/57 92/55 O2 Sat by Pulse 93 97 97 Oximetry 04/15/20 04/15/20 04/15/20 23:18 23:20 23:27 Temperature 98.4 F Pulse Rate 66 67 Pulse Rate [ Anterior Bilateral Throughout] Pulse Rate [ From Monitor] Respiratory 22 Rate Respiratory Rate [Anterior Bilateral Throughout] Respiratory Rate [Left Leg] Respiratory Rate [left foot ] Blood Pressure 92/55 92/55 O2 Sat by Pulse 97 97 Oximetry 04/15/20 04/15/20 04/15/20 23:30 23:45 23:50 Temperature Pulse Rate 66 67 67 Pulse Rate [ Anterior Bilateral Throughout] Pulse Rate [ 78 From Monitor] Respiratory 20 16 20 Rate Respiratory Rate [Anterior Bilateral Throughout] Respiratory Rate [Left Leg] Respiratory Rate [left foot ] Blood Pressure 82/54 85/54 O2 Sat by Pulse 97 97 100 Oximetry 04/16/20 04/16/20 04/16/20 00:00 00:15 00:30 Temperature Pulse Rate 66 67 68 Pulse Rate [ Anterior Bilateral Throughout] Pulse Rate [ From Monitor] Respiratory 24 17 14 Rate Respiratory Rate [Anterior Bilateral Throughout] Respiratory Rate [Left Leg] Respiratory Rate [left foot ] Blood Pressure 86/62 93/61 99/61 O2 Sat by Pulse 96 95 95 Oximetry 04/16/20 04/16/20 04/16/20 00:45 01:00 01:15 Temperature Pulse Rate 68 68 68 Pulse Rate [ Anterior Bilateral Throughout] Pulse Rate [ From Monitor] Respiratory 17 19 18 Rate Respiratory Rate [Anterior Bilateral Throughout] Respiratory Rate [Left Leg] Respiratory Rate [left foot ] Blood Pressure 102/58 98/59 101/59 O2 Sat by Pulse 96 96 96 Oximetry 04/16/20 04/16/20 04/16/20 01:30 01:46 02:00 Temperature Pulse Rate 67 68 68 Pulse Rate [ Anterior Bilateral Throughout] Pulse Rate [ From Monitor] Respiratory 24 17 16 Rate Respiratory Rate [Anterior Bilateral Throughout] Respiratory Rate [Left Leg] Respiratory Rate [left foot ] Blood Pressure 89/65 100/63 89/65 O2 Sat by Pulse 93 91 91 Oximetry 04/16/20 04/16/20 04/16/20 02:16 02:25 02:30 Temperature Pulse Rate 69 68 70 Pulse Rate [ Anterior Bilateral Throughout] Pulse Rate [ 78 From Monitor] Respiratory 20 20 16 Rate Respiratory Rate [Anterior Bilateral Throughout] Respiratory Rate [Left Leg] Respiratory Rate [left foot ] Blood Pressure 90/60 93/61 O2 Sat by Pulse 93 100 98 Oximetry 04/16/20 04/16/20 04/16/20 02:46 03:00 03:10 Temperature Pulse Rate 69 69 70 Pulse Rate [ Anterior Bilateral Throughout] Pulse Rate [ From Monitor] Respiratory 20 20 Rate Respiratory Rate [Anterior Bilateral Throughout] Respiratory Rate [Left Leg] Respiratory Rate [left foot ] Blood Pressure 96/61 99/60 97/58 O2 Sat by Pulse 99 98 98 Oximetry 04/16/20 04/16/20 04/16/20 03:16 03:30 03:33 Temperature 98.7 F Pulse Rate 68 69 Pulse Rate [ Anterior Bilateral Throughout] Pulse Rate [ From Monitor] Respiratory 20 16 Rate Respiratory Rate [Anterior Bilateral Throughout] Respiratory Rate [Left Leg] Respiratory Rate [left foot ] Blood Pressure 97/58 95/63 O2 Sat by Pulse 98 98 Oximetry 04/16/20 04/16/20 04/16/20 03:46 04:00 04:05 Temperature Pulse Rate 68 68 68 Pulse Rate [ Anterior Bilateral Throughout] Pulse Rate [ 78 From Monitor] Respiratory 21 19 20 Rate Respiratory Rate [Anterior Bilateral Throughout] Respiratory Rate [Left Leg] Respiratory Rate [left foot ] Blood Pressure 101/61 105/61 O2 Sat by Pulse 97 95 100 Oximetry 04/16/20 04/16/20 04/16/20 04:16 04:30 04:45 Temperature Pulse Rate 68 68 68 Pulse Rate [ Anterior Bilateral Throughout] Pulse Rate [ From Monitor] Respiratory 20 19 20 Rate Respiratory Rate [Anterior Bilateral Throughout] Respiratory Rate [Left Leg] Respiratory Rate [left foot ] Blood Pressure 105/63 139/86 134/93 O2 Sat by Pulse 94 94 95 Oximetry 04/16/20 04/16/20 04/16/20 05:00 05:16 05:30 Temperature Pulse Rate 69 68 70 Pulse Rate [ Anterior Bilateral Throughout] Pulse Rate [ 78 From Monitor] Respiratory 20 21 21 Rate Respiratory Rate [Anterior Bilateral Throughout] Respiratory Rate [Left Leg] Respiratory Rate [left foot ] Blood Pressure 143/103 144/93 144/93 O2 Sat by Pulse 95 97 100 Oximetry 04/16/20 04/16/20 04/16/20 05:46 06:00 06:16 Temperature Pulse Rate 70 64 62 Pulse Rate [ Anterior Bilateral Throughout] Pulse Rate [ From Monitor] Respiratory 21 18 19 Rate Respiratory Rate [Anterior Bilateral Throughout] Respiratory Rate [Left Leg] Respiratory Rate [left foot ] Blood Pressure 132/79 132/79 133/57 O2 Sat by Pulse 100 67 L 66 L Oximetry 04/16/20 04/16/20 04/16/20 06:30 06:46 07:00 Temperature Pulse Rate 67 66 68 Pulse Rate [ Anterior Bilateral Throughout] Pulse Rate [ From Monitor] Respiratory 15 29 H 29 H Rate Respiratory Rate [Anterior Bilateral Throughout] Respiratory Rate [Left Leg] Respiratory Rate [left foot ] Blood Pressure 129/61 134/68 134/68 O2 Sat by Pulse 100 90 96 Oximetry 04/16/20 04/16/20 04/16/20 07:15 07:30 07:45 Temperature Pulse Rate 68 67 67 Pulse Rate [ Anterior Bilateral Throughout] Pulse Rate [ From Monitor] Respiratory 29 H 20 21 Rate Respiratory Rate [Anterior Bilateral Throughout] Respiratory Rate [Left Leg] Respiratory Rate [left foot ] Blood Pressure 129/71 125/54 129/60 O2 Sat by Pulse 86 84 100 Oximetry 04/16/20 04/16/20 04/16/20 07:52 08:00 08:15 Temperature 98.2 F Pulse Rate 67 67 Pulse Rate [ 67 Anterior Bilateral Throughout] Pulse Rate [ 66 From Monitor] Respiratory 24 19 Rate Respiratory 24 Rate [Anterior Bilateral Throughout] Respiratory Rate [Left Leg] Respiratory Rate [left foot ] Blood Pressure 129/60 95/55 O2 Sat by Pulse 97 97 Oximetry 04/16/20 04/16/20 08:30 08:38 Temperature Pulse Rate 67 Pulse Rate [ Anterior Bilateral Throughout] Pulse Rate [ From Monitor] Respiratory 18 Rate Respiratory Rate [Anterior Bilateral Throughout] Respiratory Rate [Left Leg] Respiratory Rate [left foot ] Blood Pressure 111/45 O2 Sat by Pulse 95 98 Oximetry - Lab 04/16/20 12:26 04/16/20 05:00 Most recent lab results ABG pH 7.304 pH Units (7.350-7.450) L 04/16/20 04:25 ABG pCO2 38.8 mm Hg 04/16/20 04:25 ABG pO2 74.6 mm Hg (80.0-90.0) L 04/16/20 04:25 ABG HCO3 18.8 mmol/L (20.0-26.0) L 04/16/20 04:25 ABG O2 Saturation 97.5 % (95.0-99.0) 04/16/20 04:25 Calcium 7.7 mg/dL (8.4-10.2) L 04/16/20 05:00 Phosphorus 6.70 mg/dL (2.5-4.5) H 04/14/20 12:00 Magnesium 2.40 mg/dL (1.7-2.3) H 04/14/20 12:00 Urine Creatinine 60.0 mg/dL (0.1-20.0) H 04/11/20 16:30 Urine Sodium 26 mmol/L 04/11/20 16:30 Medications & Allergies - Medications Allergies/Adverse Reactions: Allergies No Known Allergies Allergy (Unverified 03/18/20 15:17) Home Medications: Home Medications Medication Instructions Recorded Confirmed Last Taken Type AtorvaSTATin [Lipitor] 20 mg PO QHS 03/20/20 03/20/20 03/14/20 History Clopidogrel [Plavix] 75 mg PO QHS 03/20/20 03/20/20 03/14/20 History Famotidine [Acid Controller] 20 mg PO BID 03/20/20 03/20/20 03/14/20 History Fenofibrate Nanocrystallized 48 mg PO DAILY 03/20/20 03/20/20 03/14/20 History [Fenofibrate] Metoprolol Tartrate 25 mg PO BID 03/20/20 03/20/20 03/14/20 History Pregabalin [Lyrica] 150 mg PO BID 03/20/20 03/20/20 03/14/20 History amLODIPine [Norvasc] 5 mg PO DAILY 03/20/20 03/20/20 03/14/20 History glipiZIDE [Glucotrol] 10 mg PO BID 03/20/20 03/20/20 03/14/20 History hydroCHLOROthiazide [HCTZ] 25 mg PO QDAY 03/20/20 03/20/20 03/14/20 History lisinopriL [Zestril TAB] 40 mg PO QDAY 03/20/20 03/20/20 03/14/20 History Active Medications: Generic Name Dose Route Start Last Admin Trade Name Freq PRN Reason Stop Dose Admin Albuterol 2.5 mg 04/01/20 00:03 Proventil IH Q6HRT PRN Shortness Of Breath Lipase/Protease/Amylase 1 each 04/10/20 17:39 Pancreaze 10,500 Unit FEEDTUBE PRN PRN For Clogged Feeding Tube Arformoterol Tartrate 15 mcg 03/19/20 20:00 04/16/20 07:52 Brovana Nebu IH 15 mcg Q12HRT LOI Administration Aspirin 81 mg 04/10/20 16:00 04/15/20 09:32 Halfprin Ec PO 81 mg QDAY LOI Administration Atorvastatin Calcium 40 mg 03/19/20 22:00 04/15/20 21:39 Lipitor PO 40 mg QHS LOI Administration Budesonide 0.5 mg 03/19/20 20:00 04/16/20 07:52 Pulmicort IH 0.5 mg Q12HRT LOI Administration Clopidogrel Bisulfate 75 mg 03/19/20 10:00 04/15/20 09:32 Plavix PO 75 mg QDAY LOI Administration Dextrose 50 ml 03/18/20 22:21 04/08/20 07:42 D50w (25gm) Syringe IV 50 ml Q30MIN PRN Administration Hypoglycemia Protocol Diphenhydramine HCl 25 mg 03/19/20 12:44 Benadryl IV Q4H PRN Itching Fentanyl 50 mcg 04/11/20 20:22 Sublimaze IV Q10MIN PRN ANALGESIA Hydrophilic Ointment 1 applic 04/11/20 20:22 Vaseline Lip Therapy TP Q2HR PRN Dry Lips Norepinephrine 4 mg in 250 mls @ 7.5 mls/hr 04/11/20 18:00 04/16/20 08:10 Levophed Drip 4 Mg/Ns 250 Ml IV 4 mcg/min TITR LOI 15 mls/hr Titration Protocol 2 MCG/MIN Fentanyl Citrate 2,000 mcg in 100 mls @ 6.405 mls/hr 04/11/20 21:00 Fentanyl Drip Premix IV TITR LOI Protocol 1 MCG/KG/HR Cefepime HCl 1 gm in 100 mls @ 200 mls/hr 04/15/20 10:00 04/16/20 09:08 Cefepime/Ns 1 Gm/100 Ml IV 200 mls/hr Q24HR LOI Administration Protocol Amiodarone HCl 900 mg/ 500 mls @ 33.333 mls/hr 04/14/20 12:00 04/16/20 06:43 Dextrose IV 1 mg/min DIRECT LOI 33.333 mls/hr Administration Protocol 1 MG/MIN Lidocaine HCl/Dextrose 2,000 mg in 500 mls @ 15 mls/hr 04/14/20 17:00 04/15/20 04:45 Xylocaine/D5w 2gm/500ml Drip IV 0 mg/min DIRECT LOI 0 mls/hr Titration Protocol 1 MG/MIN Insulin Human Isoph/Insulin Regular 5 unit 04/14/20 11:00 04/16/20 09:08 Humulin 70/30 SUB-Q 5 unit BIDDIAB LOI Administration Insulin Human Lispro 0 unit 04/12/20 00:00 04/16/20 06:42 Humalog SUB-Q 6 unit Q6HR LOI Administration Protocol Ipratropium Drifting 0.5 mg 04/01/20 00:05 Atrovent IH Q6HRT PRN Shortness Of Breath Lansoprazole 30 mg 04/12/20 10:00 04/16/20 09:29 Prevacid Solutab FEEDTUBE 30 mg BID LOI Administration Magnesium Hydroxide 30 ml 03/18/20 22:21 Milk Of Magnesia PO Q4H PRN Constipation Metoprolol Tartrate 50 mg 03/19/20 22:00 04/16/20 09:28 Metoprolol PO Not Given BID LOI Multi-Ingred Cream/Lotion/Oil/Oint 1 applic 04/11/20 20:22 Artificial Tears Ophth Oint OU Q4HR PRN Dry Eye(s) Naloxone HCl 0.1 mg 03/19/20 12:44 Naloxone IV Q2MIN PRN Res Rate </= 8 or 02 SAT < 92% Ondansetron HCl 4 mg 03/18/20 22:21 04/05/20 01:46 Zofran IV 4 mg Q8H PRN Administration Nausea And Vomiting Simple Syrup 15 ml 04/10/20 17:39 Simple Syrup FEEDTUBE PRN PRN Hypoglycemia Simple Syrup 30 ml 04/10/20 17:39 Simple Syrup FEEDTUBE PRN PRN Hypoglycemia Sodium Bicarbonate 325 mg 04/10/20 17:39 Sodium Bicarbonate FEEDTUBE PRN PRN For Clogged Feeding Tube Sodium Chloride 10 ml 03/19/20 10:00 04/16/20 09:10 Sodium Chloride Flush Syringe 10 Ml IV 10 ml BID LOI Administration Sodium Chloride 10 ml 03/18/20 22:21 04/11/20 05:57 Sodium Chloride Flush Syringe 10 Ml IV 10 ml PRN PRN Administration LINE FLUSH
--- NOTE | 2020-04-16 10:10 | Progress Note ---
Assessment and Plan Assessment and plan: --V. tach cardiac arrest; status post CPR per ACLS Current Visit: Yes Status: Acute On mechanical ventilation, poor prognosis. Full CODE STATUS --Ventricular tachycardia sustained 04/14/2020; resolved Current Visit: Yes Status: Acute s/pAmiodarone bolus, followed by amiodarone drip s/p Cardioversion /lidocaine bolus /lidocaine drip cardiology Dr. López Jimenes advised to closely monitor --Severe anoxic brain injury/metabolic encephalopathy; Current Visit: Yes Status: Acute secondary to cardiac arrest, possible brain neurology following, consider brain flow study Very poor prognosis, family aware --Acute CVA: Current Visit: Yes Status: Acute Aspirin and statin, neurology following Poor prognosis, anoxic brain injury --Acute hypoxic respiratory failure; Current Visit: Yes Status: Acute Intubated on ventilatory support Wean as tolerated and extubate, poor prognosis --Transaminitis/Acute liver failure/coagulopathy Current Visit: Yes Status: Acute Secondary to severe sepsis, LFTs trending down Monitor INR, no evidence of bleeding --Sepsis/infected BKA stump/possible pneumonia Current Visit: Yes Status: Acute Wound care and IV antibiotics Vanco cefepime ID following, follow cultures --Septic shock; Current Visit: Yes Status: Acute Continue Levophed, poor prognosis --PAD /acute LLE ischemia s/p BKA Current Visit: Yes Status: Acute 03/19/2020 status post endovascular revascularization 03/19/2020 s/p left lower extremity 4 compartment fasciotomy Management per vascular Recommend aspirin, Plavix and Eliquis However Eliquis was discontinued Left BKA on 03/25/2020 --Non-ST elevation MA : Current Visit: Yes Status: Acute Patient has history of CABG ,no chest pain. cardiology feels non-STEMI 2 Medical management --Acute renal failure; ATN Current Visit: Yes Status: Acute Worsening renal function, avoid nephrotoxins Poor prognosis, nephro following --Hyperkalemia; Current Visit: Yes Status: Acute Slightly improved, follow electrolytes --Type II diabetes mellitus Current Visit: Yes Status: Acute Accu-Chek sliding scale coverage ADA diet Long-acting insulin as needed, HbA1c 11 --Nicotine dependence Current Visit: Yes Status: Acute Smoking cessation nicotine patch as needed --Anemia; Current Visit: Yes Status: Acute Gradual drop in H&H, closely monitor and transfuse as needed --Severe protein calorie malnutrition Current Visit: Yes Status: Acute Nutrition supplements and supportive care Nutrition consult if needed --DVT prophylaxis Current Visit: Yes Status: Acute . Coagulopathy/SCD -- Full code status Current Visit: Yes Status: Acute Discharge planning issues Very poor prognosis recommend hospice/palliative care Patient is critically ill with very poor prognosis Multiple discussions were held with patient's Ana Obrien, Mehran Obrien They are aware of patient's critical condition, multiorgan failure anoxic brain injury and poor prognosis However continue to request full CODE STATUS Critical care time 40 minutes The high probability of a clinically significant, sudden or life threatening deterioration of the [Cardiac , neuro , renal , endocrine , GI , metabolic and respiratory] system(s) required my full and direct attention, intervention and personal management.The aggregate critical care time was [35] minutes. This time is in addition to time spent performing , reported procedures but includes the following: [x] Data Review and interpretation [x] Patient assessment and monitoring of vital signs [x] Documentation [x] Medication orders and management We will closely monitor the patient and adjust the management as needed Plan of care reviewed with the patient's nurse Very poor prognosis, patient's Ana Obrien are aware of Patient's critical condition and poor prognosis. Updated patient's condition periodically full CODE STATUS at this time History Interval history: I seen and examined the patient at the bedside this morning in ICU Patient's chart medications overnight events reviewed Patient is unresponsive, absent reflexes, intubated on vent Critically ill with poor prognosis, Vital signs noted Patient is on, amiodarone drip cefepime and Levophed Hospitalist Physical - Constitutional Vitals: Temp Pulse Resp BP Pulse Ox 98.2 F 67 18 111/45 98 04/16/20 08:00 04/16/20 08:30 04/16/20 08:30 04/16/20 08:30 04/16/20 08:38 General appearance: Present: well-nourished, obese (Morbidly), other ( Unresponsive, intubated on vent) - EENT Eyes: Present: PERRL (Absent corneal pupillary reflexes) - Neck Neck: Present: supple, normal ROM - Respiratory Respiratory: bilateral: diminished, rales, negative: rhonchi, wheezing - Cardiovascular Rhythm: regular Heart Sounds: Present: S1 & S2 - Extremities Extremities: no ischemia, abnormal (BKA dressing in place) Extremity abnormal: edema - Abdominal General gastrointestinal: soft, non-tender, non-distended, normal bowel sounds - Integumentary Integumentary: Present: clear, warm - Psychiatric Psychiatric: other (Unresponsive) - Neurologic Neurologic: other (Unresponsive on vent) HEART Score - HEART Score Troponin: Troponin T 3.950 ng/mL (0.00-0.029) H* 04/11/20 18:17 Results - Labs CBC & Chem 7: 04/16/20 12:26 04/16/20 15:33 Labs: Laboratory Last Values WBC 13.3 K/mm3 (4.5-11.0) H 04/13/20 04:35 RBC 2.68 M/mm3 (3.65-5.03) L 04/13/20 04:35 Hgb 7.8 gm/dl (11.8-15.2) L 04/14/20 07:00 Hct 25.3 % (35.5-45.6) L 04/14/20 07:00 MCV 94 fl (84-94) 04/13/20 04:35 MCH 30 pg (28-32) 04/13/20 04:35 MCHC 32 % (32-34) 04/13/20 04:35 RDW 17.4 % (13.2-15.2) H 04/13/20 04:35 Plt Count 167 K/mm3 (140-440) 04/13/20 04:35 Lymph % (Auto) 9.1 % (13.4-35.0) L 04/13/20 04:35 [place] % (Auto) 6.6 % (0.0-7.3) 04/13/20 04:35 Eos % (Auto) 0.1 % (0.0-4.3) 04/13/20 04:35 Baso % (Auto) 0.2 % (0.0-1.8) 04/13/20 04:35 Lymph # 1.2 K/mm3 (1.2-5.4) 04/13/20 04:35 [place] # 0.9 K/mm3 (0.0-0.8) H 04/13/20 04:35 Eos # 0.0 K/mm3 (0.0-0.4) 04/13/20 04:35 Baso # 0.0 K/mm3 (0.0-0.1) 04/13/20 04:35 Add Manual Diff Complete 04/11/20 18:17 Total Counted 100 04/11/20 18:17 Seg Neutrophils % 84.0 % (40.0-70.0) H 04/13/20 04:35 Seg Neuts % (Manual) 89.0 % (40.0-70.0) H 04/11/20 18:17 Band Neutrophils % 0 % 04/11/20 18:17 Lymphocytes % (Manual) 7.0 % (13.4-35.0) L 04/11/20 18:17 Reactive Lymphs % (Man) 0 % 04/11/20 18:17 Monocytes % (Manual) 4.0 % (0.0-7.3) 04/11/20 18:17 Eosinophils % (Manual) 0 % (0.0-4.3) 04/11/20 18:17 Basophils % (Manual) 0 % (0.0-1.8) 04/11/20 18:17 Metamyelocytes % 0 % 04/11/20 18:17 Myelocytes % 0 % 04/11/20 18:17 Promyelocytes % 0 % 04/11/20 18:17 Blast Cells % 0 % 04/11/20 18:17 Nucleated RBC % Not Reportable 04/11/20 18:17 Seg Neutrophils # 11.1 K/mm3 (1.8-7.7) H 04/13/20 04:35 Seg Neutrophils # Man 8.8 K/mm3 (1.8-7.7) H 04/11/20 18:17 Band Neutrophils # 0.0 K/mm3 04/11/20 18:17 Lymphocytes # (Manual) 0.7 K/mm3 (1.2-5.4) L 04/11/20 18:17 Abs React Lymphs (Man) 0.0 K/mm3 04/11/20 18:17 Monocytes # (Manual) 0.4 K/mm3 (0.0-0.8) 04/11/20 18:17 Eosinophils # (Manual) 0.0 K/mm3 (0.0-0.4) 04/11/20 18:17 Basophils # (Manual) 0.0 K/mm3 (0.0-0.1) 04/11/20 18:17 Metamyelocytes # 0.0 K/mm3 04/11/20 18:17 Myelocytes # 0.0 K/mm3 04/11/20 18:17 Promyelocytes # 0.0 K/mm3 04/11/20 18:17 Blast Cells # 0.0 K/mm3 04/11/20 18:17 WBC Morphology Not Reportable 04/11/20 18:17 Hypersegmented Neuts Not Reportable 04/11/20 18:17 Hyposegmented Neuts Not Reportable 04/11/20 18:17 Hypogranular Neuts Not Reportable 04/11/20 18:17 Smudge Cells Not Reportable 04/11/20 18:17 Toxic Granulation Not Reportable 04/11/20 18:17 Toxic Vacuolation Not Reportable 04/11/20 18:17 Dohle Bodies Not Reportable 04/11/20 18:17 Pelger-Huet Anomaly Not Reportable 04/11/20 18:17 Ananya Rods Not Reportable 04/11/20 18:17 Platelet Estimate Not Reportable 04/11/20 18:17 Clumped Platelets Not Reportable 04/11/20 18:17 Plt Clumps, EDTA Not Reportable 04/11/20 18:17 Large Platelets Not Reportable 04/11/20 18:17 Giant Platelets Not Reportable 04/11/20 18:17 Platelet Satelliting Not Reportable 04/11/20 18:17 Plt Morphology Comment Not Reportable 04/11/20 18:17 RBC Morphology Normal 04/11/20 18:17 Dimorphic RBCs Not Reportable 04/11/20 18:17 Polychromasia Not Reportable 04/11/20 18:17 Hypochromasia Not Reportable 04/11/20 18:17 Poikilocytosis Not Reportable 04/11/20 18:17 Anisocytosis Not Reportable 04/11/20 18:17 Microcytosis Not Reportable 04/11/20 18:17 Macrocytosis Not Reportable 04/11/20 18:17 Spherocytes Not Reportable 04/11/20 18:17 Pappenheimer Bodies Not Reportable 04/11/20 18:17 Sickle Cells Not Reportable 04/11/20 18:17 Target Cells Not Reportable 04/11/20 18:17 Tear Drop Cells Not Reportable 04/11/20 18:17 Ovalocytes Not Reportable 04/11/20 18:17 Helmet Cells Not Reportable 04/11/20 18:17 [place] Bodies Not Reportable 04/11/20 18:17 [place] Rings Not Reportable 04/11/20 18:17 [place] Cells Not Reportable 04/11/20 18:17 Bite Cells Not Reportable 04/11/20 18:17 Crenated Cell Not Reportable 04/11/20 18:17 Elliptocytes Not Reportable 04/11/20 18:17 Acanthocytes (Spur) Not Reportable 04/11/20 18:17 Rouleaux Not Reportable 04/11/20 18:17 Hemoglobin C Crystals Not Reportable 04/11/20 18:17 Schistocytes Not Reportable 04/11/20 18:17 Malaria parasites Not Reportable 04/11/20 18:17 Steven Bodies Not Reportable 04/11/20 18:17 Hem Pathologist Commnt No 04/11/20 18:17 PT 24.3 Sec. (12.2-14.9) H 04/14/20 07:00 INR 2.15 (0.87-1.13) H 04/14/20 07:00 APTT 27.7 Sec. (24.2-36.6) 03/18/20 18:28 Heparin Anti-Xa Level 0.10 U.I./ml (0.3-0.7) L 03/25/20 04:06 ABG pH 7.304 pH Units (7.350-7.450) L 04/16/20 04:25 ABG pCO2 38.8 mm Hg 04/16/20 04:25 ABG pO2 74.6 mm Hg (80.0-90.0) L 04/16/20 04:25 ABG HCO3 18.8 mmol/L (20.0-26.0) L 04/16/20 04:25 ABG O2 Saturation 97.5 % (95.0-99.0) 04/16/20 04:25 ABG O2 Content 6.6 (0.0-44) 04/16/20 04:25 ABG Base Excess -6.9 mmol/L (-2.0-3.0) L 04/16/20 04:25 ABG Hemoglobin 5.0 gm/dl (14.0-18.0) L 04/16/20 04:25 ABG Carboxyhemoglobin 1.7 % (0.0-5.0) 04/16/20 04:25 ABG Methemoglobin 0.5 % (0.0-1.5) 04/16/20 04:25 Oxyhemoglobin 95.4 % (95.0-99.0) 04/16/20 04:25 FiO2 40 % 04/16/20 04:25 Sodium 140 mmol/L (137-145) 04/16/20 05:00 Potassium 5.9 mmol/L (3.6-5.0) H 04/16/20 05:00 Chloride 102.2 mmol/L (98-107) 04/16/20 05:00 Carbon Dioxide 19 mmol/L (22-30) L 04/16/20 05:00 Anion Gap 25 mmol/L 04/16/20 05:00 BUN 177 mg/dL (9-20) H 04/16/20 05:00 Creatinine 5.1 mg/dL (0.8-1.3) H 04/16/20 05:00 Estimated GFR 12 ml/min 04/16/20 05:00 BUN/Creatinine Ratio 35 % 04/16/20 05:00 Glucose 261 mg/dL (75-100) H 04/16/20 05:00 POC Glucose 255 (70-105) H 04/16/20 05:17 Hemoglobin A1c 11.0 % (4-6) H 03/18/20 22:21 Calcium 7.7 mg/dL (8.4-10.2) L 04/16/20 05:00 Phosphorus 6.70 mg/dL (2.5-4.5) H 04/14/20 12:00 Magnesium 2.40 mg/dL (1.7-2.3) H 04/14/20 12:00 Ferritin 444.2 ng/mL (30.0-300.0) H 04/06/20 07:14 Total Bilirubin 0.80 mg/dL (0.1-1.2) 04/16/20 05:00 AST 116 units/L (5-40) H 04/16/20 05:00 ALT 83 units/L (7-56) H 04/16/20 05:00 Alkaline Phosphatase 254 units/L (35-129) H 04/16/20 05:00 Ammonia 38.0 umol/L (25-60) 04/12/20 07:22 Total Creatine Kinase 351 units/L (55-170) H 04/11/20 18:17 CK-MB (CK-2) 3.5 ng/mL (0.0-4.0) 04/11/20 18:17 CK-MB (CK-2) Rel Index 0.9 (0-4) 04/11/20 18:17 Troponin T 3.950 ng/mL (0.00-0.029) H* 04/11/20 18:17 Total Protein 5.6 g/dL (6.3-8.2) L 04/16/20 05:00 Albumin 2.3 g/dL (3.9-5) L 04/16/20 05:00 Albumin/Globulin Ratio 0.7 % 04/16/20 05:00 Triglycerides 99 mg/dL (2-149) 04/11/20 18:17 Cholesterol 93 mg/dL (50-199) 04/11/20 18:17 LDL Cholesterol Direct 60 mg/dL (50-130) 04/11/20 18:17 HDL Cholesterol 19 mg/dL (40-59) L 04/11/20 18:17 Cholesterol/HDL Ratio 4.89 % 04/11/20 18:17 Urine Color Yellow (Yellow) 04/11/20 16:30 Urine Turbidity Slightly-cloudy (Clear) 04/11/20 16:30 Urine pH 5.0 (5.0-7.0) 04/11/20 16:30 Ur Specific [place] 1.013 (1.003-1.030) 04/11/20 16:30 Urine Protein <15 mg/dl mg/dL (Negative) 04/11/20 16:30 Urine Glucose (UA) Neg mg/dL (Negative) 04/11/20 16:30 Urine Ketones Neg mg/dL (Negative) 04/11/20 16:30 Urine Blood Lg (Negative) 04/11/20 16:30 Urine Nitrite Neg (Negative) 04/11/20 16:30 Urine Bilirubin Neg (Negative) 04/11/20 16:30 Urine Urobilinogen < 2.0 mg/dL (<2.0) 04/11/20 16:30 Ur Leukocyte Esterase Neg (Negative) 04/11/20 16:30 Urine WBC (Auto) 16.0 /HPF (0.0-6.0) H 04/11/20 16:30 Urine RBC (Auto) 19.0 /HPF (0.0-6.0) 04/11/20 16:30 U Epithel Cells (Auto) 1.0 /HPF (0-13.0) 04/11/20 16:30 Urine Mucus Few /HPF 04/11/20 16:30 Urine Yeast (Budding) Few /HPF 04/11/20 16:30 Urine Eosinophils None seen (None Seen) 04/11/20 16:30 Urine Creatinine 60.0 mg/dL (0.1-20.0) H 04/11/20 16:30 Urine Sodium 26 mmol/L 04/11/20 16:30 Random Vancomycin 13.3 ug/mL (0-40.0) 04/16/20 05:00 Coronavirus (PCR) Negative (Negative) 04/03/20 08:00 Hep Bs Antigen Non-reactive (Negative) 04/06/20 07:14 Hepatitis C Antibody Non-reactive (NonReactive) 04/06/20 07:14 Blood Type B POSITIVE 03/25/20 11:42 Antibody Screen Negative 03/25/20 11:42 - Diagnostic Impressions Diagnostic Impressions: Echocardiogram 03/19/20 12:49 Transthoracic Echocardiogram Indication: CAD and Abnormal EKG HR: 110 Conclusions *The study is technically limited due to patient body habitus. *The left ventricular chamber size is mildly dilated. *Global left ventricular systolic function is moderate to severely decreased. *The estimated ejection fraction is 30-35%. *The basal inferolateral, and basal inferior wall segments are normal. *The mid inferolateral, mid inferior, apical lateral, and apical inferior wall segments are akinetic. *The left atrial chamber size is normal. Findings Procedure Info: The study is technically limited due to patient body habitus. The study was technically limited due to the patient's inability to lay in the left lateral decubitus position. Left Ventricle: The left ventricular chamber size is mildly dilated. Global left ventricular systolic function is moderate to severely decreased. The estimated ejection fraction is 30-35%. The basal inferolateral, and basal inferior wall segments are normal. The mid inferolateral, mid inferior, apical lateral, and apical inferior wall segments are akinetic. Left Atrium: The left atrial chamber size is normal. Right Ventricle: The right ventricle is not well visualized. Right Atrium: The right atrium is not well visualized. The right atrial cavity size is normal. Aortic Valve: The aortic valve is trileaflet. Mitral Valve: The mitral valve leaflets are moderately thickened. There is mild mitral regurgitation. Tricuspid Valve: The tricuspid valve is not well visualized. There is trace tricuspid regurgitation. Pulmonic Valve: The pulmonic valve is not well visualized. Pericardium: There is no pericardial effusion. Aorta: The aorta appears normal. Venous: The venous system is not well visualized. Contrast: Definity was used to optimize study. Measurements Chambers 2D Name Value Normal Range IVSd (2D) 0.94 cm (0.6 - 1.1) LVPWd (2D) 0.94 cm (0.6 - 1.1) LVIDd (2D) 6.15 cm (3.7 - 5.6) LVIDs (2D) 5.2 cm (2 - 3.8) LV FS (2D) 15.5 % - EF Teichholz (2D) 32.08 % - Ao root diameter (2D) 2.77 cm (2 - 3.7) Volumes/Mass Name Value Normal Range LA ESV SP 4CH (A/L) 73.77 ml - LA ESV SP 2CH (A/L) 66.45 ml - LA ESV BP (A/L) 71.61 ml - LA ESV BP (A/L) index 30.6 ml/m2 - LA ESV SP 4CH (MOD) 72.55 ml - LA ESV SP 2CH (MOD) 65.34 ml - LA ESV BP (MOD) 70.27 ml - LA ESV BP (MOD) index 30.03 ml/m2 - Diastolic/Systolic Function Name Value Normal Range MV E-wave Vmax 0.85 m/sec - MV deceleration time 69.14 msec - MV A-wave Vmax 0.89 m/sec - MV E:A ratio 0.95 ratio - Aortic Valve Name Value Normal Range AV Vmax 0.96 m/sec - AV VTI 11.83 cm - AV peak gradient 3.68 mmHg - AV mean gradient 1.6 mmHg - LVOT diameter 2.19 cm - LVOT Vmax 0.86 m/sec - LVOT VTI 13.33 cm - LVOT peak gradient 2.96 mmHg - LVOT mean gradient 1.48 mmHg - SV LVOT 50.08 ml - DEYA (continuity Vmax) 3.37 cm2 - DEYA (continuity VTI) 4.23 cm2 - Ascending Ao 2.92 cm - Pulmonic Valve/Qp:Qs Name Value Normal Range PV Vmax 1.08 m/sec - PV VTI 15.88 cm - PV peak gradient 4.7 mmHg - PV mean gradient 2.18 mmHg - RVOT Vmax 0.82 m/sec - RVOT VTI 11.48 cm - RVOT peak gradient 2.67 mmHg - Wall[place] BAS Not Seen BA Not Seen BAL Not Seen BAY Normal BI Normal BIS Not Seen MAS Not Seen MA Not Seen MAL Not Seen MIL Akinetic MA Akinetic MIS Not Seen Not Seen AA Not Seen AL Akinetic AI Akinetic APEX Not Seen Tyson/IV: Voiding Method Indwelling Catheter IV Catheter Type [Right Peripheral IV Forearm] IV Catheter Type [Right INT / Saline Lock Antecubital] IV Catheter Type [Right Hand] Peripheral IV IV Catheter Type [Left Forearm INT / Saline Lock ] IV Catheter Type [Left Upper PICC Line arm] IV Catheter Type [Left INT / Saline Lock Antecubital] Active Medications - Current Medications Current Medications: Generic Name Dose Route Start Last Admin Trade Name Freq PRN Reason Stop Dose Admin Albuterol 2.5 mg 04/01/20 00:03 Proventil IH Q6HRT PRN Shortness Of Breath Lipase/Protease/Amylase 1 each 04/10/20 17:39 Bernice Forrester 10,500 Unit FEEDTUBE PRN PRN For Clogged Feeding Tube Arformoterol Tartrate 15 mcg 03/19/20 20:00 04/16/20 07:52 Brovana Nebu IH 15 mcg Q12HRT LOI Administration Aspirin 81 mg 04/10/20 16:00 04/15/20 09:32 Halfprin Ec PO 81 mg QDAY LOI Administration Atorvastatin Calcium 40 mg 03/19/20 22:00 04/15/20 21:39 Lipitor PO 40 mg QHS LOI Administration Budesonide 0.5 mg 03/19/20 20:00 04/16/20 07:52 Pulmicort IH 0.5 mg Q12HRT LOI Administration Clopidogrel Bisulfate 75 mg 03/19/20 10:00 04/15/20 09:32 Plavix PO 75 mg QDAY LOI Administration Dextrose 50 ml 03/18/20 22:21 04/08/20 07:42 D50w (25gm) Syringe IV 50 ml Q30MIN PRN Administration Hypoglycemia Protocol Diphenhydramine HCl 25 mg 03/19/20 12:44 Benadryl IV Q4H PRN Itching Fentanyl 50 mcg 04/11/20 20:22 Sublimaze IV Q10MIN PRN ANALGESIA Hydrophilic Ointment 1 applic 04/11/20 20:22 Vaseline Lip Therapy TP Q2HR PRN Dry Lips Norepinephrine 4 mg in 250 mls @ 7.5 mls/hr 04/11/20 18:00 04/16/20 08:10 Levophed Drip 4 Mg/Ns 250 Ml IV 4 mcg/min TITR LOI 15 mls/hr Titration Protocol 2 MCG/MIN Fentanyl Citrate 2,000 mcg in 100 mls @ 6.405 mls/hr 04/11/20 21:00 Fentanyl Drip Premix IV TITR LOI Protocol 1 MCG/KG/HR Cefepime HCl 1 gm in 100 mls @ 200 mls/hr 04/15/20 10:00 04/16/20 09:08 Cefepime/Ns 1 Gm/100 Ml IV 200 mls/hr Q24HR LOI Administration Protocol Amiodarone HCl 900 mg/ 500 mls @ 33.333 mls/hr 04/14/20 12:00 04/16/20 06:43 Dextrose IV 1 mg/min DIRECT LOI 33.333 mls/hr Administration Protocol 1 MG/MIN Lidocaine HCl/Dextrose 2,000 mg in 500 mls @ 15 mls/hr 04/14/20 17:00 04:45 Xylocaine/D5w 2gm/500ml Drip IV 0 mg/min DIRECT LOI 0 mls/hr Titration Protocol 1 MG/MIN Insulin Human Isoph/Insulin Regular 5 unit 04/14/20 11:00 04/16/20 09:08 Humulin 70/30 SUB-Q 5 unit BIDDIAB LOI Administration Insulin Human Lispro 0 unit 04/12/20 00:00 04/16/20 06:42 Humalog SUB-Q 6 unit Q6HR LOI Administration Protocol Ipratropium [place] 0.5 mg 04/01/20 00:05 Atrovent IH Q6HRT PRN Shortness Of Breath Lansoprazole 30 mg 04/12/20 10:00 04/16/20 09:29 Prevacid Solutab FEEDTUBE 30 mg BID LOI Administration Magnesium Hydroxide 30 ml 03/18/20 22:21 Milk Of Magnesia PO Q4H PRN Constipation Metoprolol Tartrate 50 mg 03/19/20 22:00 04/16/20 09:28 Metoprolol PO Not Given BID LOI Multi-Ingred Cream/Lotion/Oil/Oint 1 applic 04/11/20 20:22 Artificial Tears Ophth Oint OU Q4HR PRN Dry Eye(s) Naloxone HCl 0.1 mg 03/19/20 12:44 Naloxone IV Q2MIN PRN Res Rate </= 8 or 02 SAT < 92% Ondansetron HCl 4 mg 03/18/20 22:21 04/05/20 01:46 Zofran IV 4 mg Q8H PRN Administration Nausea And Vomiting Simple Syrup 15 ml 04/10/20 17:39 Simple Syrup FEEDTUBE PRN PRN Hypoglycemia Simple Syrup 30 ml 04/10/20 17:39 Simple Syrup FEEDTUBE PRN PRN Hypoglycemia Sodium Bicarbonate 325 mg 04/10/20 17:39 Sodium Bicarbonate FEEDTUBE PRN PRN For Clogged Feeding Tube Sodium Chloride 10 ml 03/19/20 10:00 04/16/20 09:10 Sodium Chloride Flush Syringe 10 Ml IV 10 ml BID LOI Administration Sodium Chloride 10 ml 03/18/20 22:21 04/11/20 05:57 Sodium Chloride Flush Syringe 10 Ml IV 10 ml PRN PRN Administration LINE FLUSH Nutrition/Malnutrition Assess - Dietary Evaluation Nutrition/Malnutrition Findings: Nutrition Notes Start: 03/19/20 11:59 Freq: Status: Active Protocol: Document 04/15/20 12:13 LM (Rec: 04/15/20 12:25 LM [id number]) Nutrition Notes Initial or Follow up Reassessment Current Diagnosis COPD,Diabetes Other Pertinent Diagnosis (L) LE ischemia s/p (L) BKA, STARR, NSTEMI Current Diet Nepro 1.8 at 45ml/hr Labs/Tests K 5.1 BUN 163 Cr 4.5 BG 274 Pertinent Medications Humulin Humalog Levophed Height 6 ft Weight 128.1 kg [place] Body Weight (kg) 80.90 BMI 38.2 Weight Status Obese Subjective/Other Information Per RN notes pt is tolerating TF at goal. Burn Absent Trauma Absent Current % PO Negligible Minimum of two criteria No #1 Nutrition Diagnosis Increased nutrient needs ( specify in comment below) Diagnosis Progress(for reassessment Continues documentation) Is patient on ventilator? Yes Is Patient Ambulatory and/or Out of Bed No REE-([facility]-confined to bed) 2588.544 Kcal/Kg value to use for calculation 16 Approximate Energy Requirements Using 2049 kcal/Kg Calculation Used for Recommendations Kcal/kg Additional Notes Protein: 162g (>/= 2g/kg using IBW 81kg) Fluid: 1ml/kcal Nutrition Intervention Change Diet Order: continue TF Nutrition Support: Nepro 1.8 at 45ml/hr Flush 200ml q4h Kcal 1,944 Protein (gm) 87 Fluid (mL) 785 Goal #1 TF tolerance Goal #2 Meet at least 75% of energy and protein needs Anticipated Discharge Needs: unable to determine at this time Follow-Up By: 04/18/20 Additional Comments F/U for TF tolerance, K lab
--- NOTE | 2020-04-16 11:24 | Progress Note ---
Assessment and Plan Acute limb ischemia S/P revascularization surgery. Obstructive sleep apnea. History of chronic obstructive pulmonary disease. Acute hypoxemic respiratory failure. Diabetes. History of coronary artery disease. Non-ST elevation myocardial infarction. Acute coronary syndrome. Acute cerebrovascular accident. - NM brain flow scan based on neurology evaluation - increased Peep to 10 cm H2O - begin Protonix drip - hert H&H and trend as necessary - GI evaluation per attending - continue amiodarone drip - continue Levophed; wean for MAP > 65 mmHg - continue care as below otherwise; - continue to hold full anticoagulation re: bleeding - Daily SAT and SBT assessment as tolerated - continue to wean supplemental oxygen for target O2 sat's > 90% acutely - VAP bundle addressed - continue lung protective strategies - continue bronchodilators with pulmonary hygiene per RT - wean per pulmonary driven protocols otherwise - sedation prn for target RASS 0 to -1 - continue wound care per WCN / RN - accuchecks with glycemic control per SSI (While critically ill target blood glucose of 140-180 mg/dL; avoid hypoglycemia) - wean supplemental oxygen for target O2 sat's > 90% acutely - prn bronchodilators with pulmonary hygiene per RT - avoid benzodiazepine's, reduce the possibility of delirium - AB's per surgery rec's (No S&S of overwhelming sepsis) - prn analgesia per CPOT score - Maintenance of sleep-wake cycle, avoid delirium - aspiration precautions - G.I. & VTE prophylaxis - PT/OT/ROM exercises - mobility protocols for pressure ulcer prophylaxis - Monitor hemodynamics closely - continue other care per attending / other consultants - discharge planning ongoing concurrently - transferred to telemetry .... Re-evaluate in am & prn CONDITION: CRITICAL PROGNOSIS: GUARDED CODE STATUS: FULL CODE The high probability of a clinically significant, sudden or life-threatening deterioration of the [respiratory, cardiovascular & neurologic] system(s) required my full and direct attention, intervention and personal management. The aggregate critical care time was [33] minutes without overlap. Time includes spent on; [x] Data Review and interpretation [x] Patient assessment and monitoring of vital signs [x] Documentation [x] Medication orders and management Subjective Date of service: 04/16/20 Principal diagnosis: Acute limb ischemia; STARR; COPD; Ac hypoxemic resp failure; DM II; NSTEMI Interval history: Patient is seen today for: Acute limb ischemia S/P revascularization surgery; STARR; COPD; Acute hypoxemic respiratory failure; DM II; NSTEMI; Acute CVA Seen and examined at bedside; 24hour events reviewed; nursing and respiratory care staff consulted; no adverse overnight events reported to me; resting peacefully in bed; AMS is persistent; no emesis or overt aspiration; remains hypotensive; also on 80% FiO2 and peep of 8; no seizures; + 150 ml's of bloody f luid on NG tube suction;l Afebrile Objective Vital Signs - 12hr 04/15/20 04/15/20 04/15/20 23:27 23:30 23:45 Temperature Pulse Rate 67 66 67 Pulse Rate [ Anterior Bilateral Throughout] Pulse Rate [ From Monitor] Respiratory 20 16 Rate Respiratory Rate [Anterior Bilateral Throughout] Respiratory Rate [Left Leg] Respiratory Rate [left foot ] Blood Pressure 92/55 82/54 85/54 O2 Sat by Pulse 97 97 97 Oximetry 04/15/20 04/16/20 04/16/20 23:50 00:00 00:15 Temperature Pulse Rate 67 66 67 Pulse Rate [ Anterior Bilateral Throughout] Pulse Rate [ 78 From Monitor] Respiratory 20 24 17 Rate Respiratory Rate [Anterior Bilateral Throughout] Respiratory Rate [Left Leg] Respiratory Rate [left foot ] Blood Pressure 86/62 93/61 O2 Sat by Pulse 100 96 95 Oximetry 04/16/20 04/16/20 04/16/20 00:30 00:45 01:00 Temperature Pulse Rate 68 68 68 Pulse Rate [ Anterior Bilateral Throughout] Pulse Rate [ From Monitor] Respiratory 14 17 19 Rate Respiratory Rate [Anterior Bilateral Throughout] Respiratory Rate [Left Leg] Respiratory Rate [left foot ] Blood Pressure 99/61 102/58 98/59 O2 Sat by Pulse 95 96 96 Oximetry 04/16/20 04/16/20 04/16/20 01:15 01:30 01:46 Temperature Pulse Rate 68 67 68 Pulse Rate [ Anterior Bilateral Throughout] Pulse Rate [ From Monitor] Respiratory 18 24 17 Rate Respiratory Rate [Anterior Bilateral Throughout] Respiratory Rate [Left Leg] Respiratory Rate [left foot ] Blood Pressure 101/59 89/65 100/63 O2 Sat by Pulse 96 93 91 Oximetry 04/16/20 04/16/20 04/16/20 02:00 02:16 02:25 Temperature Pulse Rate 68 69 68 Pulse Rate [ Anterior Bilateral Throughout] Pulse Rate [ 78 From Monitor] Respiratory 16 20 20 Rate Respiratory Rate [Anterior Bilateral Throughout] Respiratory Rate [Left Leg] Respiratory Rate [left foot ] Blood Pressure 89/65 90/60 O2 Sat by Pulse 91 93 100 Oximetry 04/16/20 04/16/20 04/16/20 02:30 02:46 03:00 Temperature Pulse Rate 70 69 69 Pulse Rate [ Anterior Bilateral Throughout] Pulse Rate [ From Monitor] Respiratory 16 20 20 Rate Respiratory Rate [Anterior Bilateral Throughout] Respiratory Rate [Left Leg] Respiratory Rate [left foot ] Blood Pressure 93/61 96/61 99/60 O2 Sat by Pulse 98 99 98 Oximetry 04/16/20 04/16/20 04/16/20 03:10 03:16 03:30 Temperature Pulse Rate 70 68 69 Pulse Rate [ Anterior Bilateral Throughout] Pulse Rate [ From Monitor] Respiratory 20 16 Rate Respiratory Rate [Anterior Bilateral Throughout] Respiratory Rate [Left Leg] Respiratory Rate [left foot ] Blood Pressure 97/58 97/58 95/63 O2 Sat by Pulse 98 98 98 Oximetry 04/16/20 04/16/20 04/16/20 03:33 03:46 04:00 Temperature 98.7 F Pulse Rate 68 68 Pulse Rate [ Anterior Bilateral Throughout] Pulse Rate [ From Monitor] Respiratory 21 19 Rate Respiratory Rate [Anterior Bilateral Throughout] Respiratory Rate [Left Leg] Respiratory Rate [left foot ] Blood Pressure 101/61 105/61 O2 Sat by Pulse 97 95 Oximetry 04/16/20 04/16/20 04/16/20 04:05 04:16 04:30 Temperature Pulse Rate 68 68 68 Pulse Rate [ Anterior Bilateral Throughout] Pulse Rate [ 78 From Monitor] Respiratory 20 20 19 Rate Respiratory Rate [Anterior Bilateral Throughout] Respiratory Rate [Left Leg] Respiratory Rate [left foot ] Blood Pressure 105/63 139/86 O2 Sat by Pulse 100 94 94 Oximetry 04/16/20 04/16/20 04/16/20 04:45 05:00 05:16 Temperature Pulse Rate 68 69 68 Pulse Rate [ Anterior Bilateral Throughout] Pulse Rate [ From Monitor] Respiratory 20 20 21 Rate Respiratory Rate [Anterior Bilateral Throughout] Respiratory Rate [Left Leg] Respiratory Rate [left foot ] Blood Pressure 134/93 143/103 144/93 O2 Sat by Pulse 95 95 97 Oximetry 04/16/20 04/16/20 04/16/20 05:30 05:46 06:00 Temperature Pulse Rate 70 70 64 Pulse Rate [ Anterior Bilateral Throughout] Pulse Rate [ 78 From Monitor] Respiratory 21 21 18 Rate Respiratory Rate [Anterior Bilateral Throughout] Respiratory Rate [Left Leg] Respiratory Rate [left foot ] Blood Pressure 144/93 132/79 132/79 O2 Sat by Pulse 100 100 67 L Oximetry 04/16/20 04/16/20 04/16/20 06:16 06:30 06:46 Temperature Pulse Rate 62 67 66 Pulse Rate [ Anterior Bilateral Throughout] Pulse Rate [ From Monitor] Respiratory 19 15 29 H Rate Respiratory Rate [Anterior Bilateral Throughout] Respiratory Rate [Left Leg] Respiratory Rate [left foot ] Blood Pressure 133/57 129/61 134/68 O2 Sat by Pulse 66 L 100 90 Oximetry 04/16/20 04/16/20 04/16/20 07:00 07:15 07:30 Temperature Pulse Rate 68 68 67 Pulse Rate [ Anterior Bilateral Throughout] Pulse Rate [ From Monitor] Respiratory 29 H 29 H 20 Rate Respiratory Rate [Anterior Bilateral Throughout] Respiratory Rate [Left Leg] Respiratory Rate [left foot ] Blood Pressure 134/68 129/71 125/54 O2 Sat by Pulse 96 86 84 Oximetry 04/16/20 04/16/20 04/16/20 07:45 07:52 08:00 Temperature 98.2 F Pulse Rate 67 67 Pulse Rate [ 67 Anterior Bilateral Throughout] Pulse Rate [ 66 From Monitor] Respiratory 21 24 Rate Respiratory 24 Rate [Anterior Bilateral Throughout] Respiratory Rate [Left Leg] Respiratory Rate [left foot ] Blood Pressure 129/60 129/60 O2 Sat by Pulse 100 97 Oximetry 04/16/20 04/16/20 04/16/20 08:15 08:30 08:38 Temperature Pulse Rate 67 67 Pulse Rate [ Anterior Bilateral Throughout] Pulse Rate [ From Monitor] Respiratory 19 18 Rate Respiratory Rate [Anterior Bilateral Throughout] Respiratory Rate [Left Leg] Respiratory Rate [left foot ] Blood Pressure 95/55 111/45 O2 Sat by Pulse 97 95 98 Oximetry 04/16/20 04/16/20 04/16/20 08:45 09:00 09:15 Temperature Pulse Rate 67 67 66 Pulse Rate [ Anterior Bilateral Throughout] Pulse Rate [ From Monitor] Respiratory 22 19 22 Rate Respiratory Rate [Anterior Bilateral Throughout] Respiratory Rate [Left Leg] Respiratory Rate [left foot ] Blood Pressure 94/53 95/52 94/55 O2 Sat by Pulse 97 94 96 Oximetry 04/16/20 04/16/20 04/16/20 09:30 09:45 10:00 Temperature Pulse Rate 66 67 67 Pulse Rate [ Anterior Bilateral Throughout] Pulse Rate [ From Monitor] Respiratory 21 14 20 Rate Respiratory Rate [Anterior Bilateral Throughout] Respiratory 19 Rate [Left Leg] Respiratory 19 Rate [left foot ] Blood Pressure 94/55 83/59 83/59 O2 Sat by Pulse 96 91 91 Oximetry 04/16/20 10:15 Temperature Pulse Rate 67 Pulse Rate [ Anterior Bilateral Throughout] Pulse Rate [ From Monitor] Respiratory 22 Rate Respiratory Rate [Anterior Bilateral Throughout] Respiratory Rate [Left Leg] Respiratory Rate [left foot ] Blood Pressure 96/53 O2 Sat by Pulse 91 Oximetry Constitutional: no acute distress, other (middle aged obese male intubated on MVS and without ventilator dyssynchrony) Eyes: non-icteric ENT: oropharynx moist, other (ETT 23 cm CARSON) Neck: supple, no lymphadenopathy, no JVD Effort: mildly labored Ascultation: Bilateral: diminished breath sounds, rhonchi Percussion: Bilateral: not dull Cardiovascular: irregular rhythm Gastrointestinal: normoactive bowel sounds, soft, non-tender, non-distended (protuberant) Integumentary: rash Extremities: cool, edema (right lower extremity), other (left BKA with clean dressing) Neurologic: pupils equal and round, unable to assess Psychiatric: other (encephalopathic) CBC and BMP: 04/14/20 07:00 04/16/20 05:00 ABG, PT/INR, D-dimer: ABG ABG pH 7.304 pH Units (7.350-7.450) L 04/16/20 04:25 ABG pCO2 38.8 mm Hg 04/16/20 04:25 ABG pO2 74.6 mm Hg (80.0-90.0) L 04/16/20 04:25 ABG O2 Saturation 97.5 % (95.0-99.0) 04/16/20 04:25 PT/INR, D-dimer PT 24.3 Sec. (12.2-14.9) H 04/14/20 07:00 INR 2.15 (0.87-1.13) H 04/14/20 07:00 Abnormal lab findings: Abnormal Labs 03/18/20 03/18/20 03/18/20 18:28 18:28 20:56 WBC 12.3 H RBC Hgb Hct MCV MCHC RDW Lymph % (Auto) 11.0 L Cassia % (Auto) 9.8 H Lymph # Cassia # 1.2 H Seg Neutrophils % 78.4 H Seg Neuts % (Manual) Lymphocytes % (Manual) Nucleated RBC % Seg Neutrophils # 9.6 H Seg Neutrophils # Man Lymphocytes # (Manual) Monocytes # (Manual) Eosinophils # (Manual) PT INR Heparin Anti-Xa Level ABG pH ABG pO2 ABG HCO3 ABG O2 Saturation ABG Base Excess ABG Hemoglobin Oxyhemoglobin Sodium 132 L Potassium Chloride 91.9 L Carbon Dioxide 20 L BUN Creatinine 1.4 H Glucose 406 H POC Glucose Hemoglobin A1c Calcium Phosphorus Magnesium Ferritin AST ALT Alkaline Phosphatase Total Creatine Kinase 2727 H 2492 H CK-MB (CK-2) 135.9 H 107.2 H CK-MB (CK-2) Rel Index 4.3 H Troponin T 5.110 H* 3.960 H* D Total Protein Albumin Triglycerides 188 H LDL Cholesterol Direct 141 H HDL Cholesterol Urine WBC (Auto) Urine Creatinine 03/18/20 03/19/20 03/19/20 22:21 01:57 08:08 WBC RBC Hgb Hct MCV MCHC RDW Lymph % (Auto) Cassia % (Auto) Lymph # Cassia # Seg Neutrophils % Seg Neuts % (Manual) Lymphocytes % (Manual) Nucleated RBC % Seg Neutrophils # Seg Neutrophils # Man Lymphocytes # (Manual) Monocytes # (Manual) Eosinophils # (Manual) PT INR Heparin Anti-Xa Level ABG pH ABG pO2 ABG HCO3 ABG O2 Saturation ABG Base Excess ABG Hemoglobin Oxyhemoglobin Sodium Potassium Chloride Carbon Dioxide BUN Creatinine Glucose POC Glucose 317 H Hemoglobin A1c 11.0 H Calcium Phosphorus Magnesium Ferritin AST ALT Alkaline Phosphatase Total Creatine Kinase 7255 H CK-MB (CK-2) 79.3 H CK-MB (CK-2) Rel Index Troponin T 5.540 H* D Total Protein Albumin Triglycerides LDL Cholesterol Direct HDL Cholesterol Urine WBC (Auto) Urine Creatinine 03/19/20 03/19/20 03/19/20 08:08 08:08 08:08 WBC 13.3 H RBC Hgb Hct MCV MCHC RDW Lymph % (Auto) 10.7 L Cassia % (Auto) 8.5 H Lymph # Cassia # 1.1 H Seg Neutrophils % 80.0 H Seg Neuts % (Manual) Lymphocytes % (Manual) Nucleated RBC % Seg Neutrophils # 10.6 H Seg Neutrophils # Man Lymphocytes # (Manual) Monocytes # (Manual) Eosinophils # (Manual) PT INR Heparin Anti-Xa Level 0.10 L ABG pH ABG pO2 ABG HCO3 ABG O2 Saturation ABG Base Excess ABG Hemoglobin Oxyhemoglobin Sodium 133 L Potassium 5.1 H Chloride Carbon Dioxide 17 L BUN 23 H Creatinine Glucose 313 H POC Glucose Hemoglobin A1c Calcium Phosphorus Magnesium Ferritin AST ALT Alkaline Phosphatase Total Creatine Kinase CK-MB (CK-2) CK-MB (CK-2) Rel Index Troponin T Total Protein Albumin Triglycerides LDL Cholesterol Direct HDL Cholesterol Urine WBC (Auto) Urine Creatinine 03/19/20 03/19/20 03/19/20 15:40 18:23 21:32 WBC RBC Hgb Hct MCV MCHC RDW Lymph % (Auto) Cassia % (Auto) Lymph # Cassia # Seg Neutrophils % Seg Neuts % (Manual) Lymphocytes % (Manual) Nucleated RBC % Seg Neutrophils # Seg Neutrophils # Man Lymphocytes # (Manual) Monocytes # (Manual) Eosinophils # (Manual) PT INR Heparin Anti-Xa Level < 0.10 L ABG pH ABG pO2 ABG HCO3 18.3 L ABG O2 Saturation ABG Base Excess -5.4 L ABG Hemoglobin 12.2 L Oxyhemoglobin 94.6 L Sodium Potassium Chloride Carbon Dioxide BUN Creatinine Glucose POC Glucose 348 H Hemoglobin A1c Calcium Phosphorus Magnesium Ferritin AST ALT Alkaline Phosphatase Total Creatine Kinase CK-MB (CK-2) CK-MB (CK-2) Rel Index Troponin T Total Protein Albumin Triglycerides LDL Cholesterol Direct HDL Cholesterol Urine WBC (Auto) Urine Creatinine 03/20/20 03/20/20 03/20/20 04:35 05:12 05:12 WBC 11.1 H RBC 3.63 L Hgb 11.0 L Hct 32.7 L D MCV MCHC RDW Lymph % (Auto) Cassia % (Auto) 8.1 H Lymph # Cassia # 0.9 H Seg Neutrophils % 75.8 H Seg Neuts % (Manual) Lymphocytes % (Manual) Nucleated RBC % Seg Neutrophils # 8.4 H Seg Neutrophils # Man Lymphocytes # (Manual) Monocytes # (Manual) Eosinophils # (Manual) PT INR Heparin Anti-Xa Level 0.28 L ABG pH ABG pO2 68.3 L ABG HCO3 ABG O2 Saturation 94.3 L ABG Base Excess ABG Hemoglobin 7.1 L Oxyhemoglobin 92.3 L Sodium Potassium Chloride Carbon Dioxide BUN Creatinine Glucose POC Glucose Hemoglobin A1c Calcium Phosphorus Magnesium Ferritin AST ALT Alkaline Phosphatase Total Creatine Kinase CK-MB (CK-2) CK-MB (CK-2) Rel Index Troponin T Total Protein Albumin Triglycerides LDL Cholesterol Direct HDL Cholesterol Urine WBC (Auto) Urine Creatinine 03/20/20 03/20/20 03/20/20 05:12 07:49 12:15 WBC RBC Hgb Hct MCV MCHC RDW Lymph % (Auto) Cassia % (Auto) Lymph # Cassia # Seg Neutrophils % Seg Neuts % (Manual) Lymphocytes % (Manual) Nucleated RBC % Seg Neutrophils # Seg Neutrophils # Man Lymphocytes # (Manual) Monocytes # (Manual) Eosinophils # (Manual) PT INR Heparin Anti-Xa Level ABG pH ABG pO2 ABG HCO3 ABG O2 Saturation ABG Base Excess ABG Hemoglobin Oxyhemoglobin Sodium 134 L Potassium Chloride Carbon Dioxide 21 L BUN 23 H Creatinine Glucose 275 H POC Glucose 294 H 357 H Hemoglobin A1c Calcium Phosphorus Magnesium Ferritin AST ALT Alkaline Phosphatase Total Creatine Kinase CK-MB (CK-2) CK-MB (CK-2) Rel Index Troponin T 3.200 H* D Total Protein Albumin Triglycerides LDL Cholesterol Direct HDL Cholesterol Urine WBC (Auto) Urine Creatinine 03/20/20 03/20/20 03/21/20 17:16 22:08 04:44 WBC RBC Hgb Hct MCV MCHC RDW Lymph % (Auto) Cassia % (Auto) Lymph # Cassia # Seg Neutrophils % Seg Neuts % (Manual) Lymphocytes % (Manual) Nucleated RBC % Seg Neutrophils # Seg Neutrophils # Man Lymphocytes # (Manual) Monocytes # (Manual) Eosinophils # (Manual) PT INR Heparin Anti-Xa Level ABG pH ABG pO2 ABG HCO3 ABG O2 Saturation ABG Base Excess ABG Hemoglobin Oxyhemoglobin Sodium 136 L Potassium Chloride Carbon Dioxide 18 L BUN 26 H Creatinine Glucose 266 H POC Glucose 327 H 292 H Hemoglobin A1c Calcium 8.1 L Phosphorus Magnesium Ferritin AST ALT Alkaline Phosphatase Total Creatine Kinase CK-MB (CK-2) CK-MB (CK-2) Rel Index Troponin T Total Protein Albumin Triglycerides LDL Cholesterol Direct HDL Cholesterol Urine WBC (Auto) Urine Creatinine 03/21/20 03/21/20 03/21/20 07:50 12:25 15:53 WBC RBC Hgb Hct MCV MCHC RDW Lymph % (Auto) Cassia % (Auto) Lymph # Cassia # Seg Neutrophils % Seg Neuts % (Manual) Lymphocytes % (Manual) Nucleated RBC % Seg Neutrophils # Seg Neutrophils # Man Lymphocytes # (Manual) Monocytes # (Manual) Eosinophils # (Manual) PT INR Heparin Anti-Xa Level ABG pH ABG pO2 ABG HCO3 ABG O2 Saturation ABG Base Excess ABG Hemoglobin Oxyhemoglobin Sodium Potassium Chloride Carbon Dioxide BUN Creatinine Glucose POC Glucose 271 H 314 H 436 H Hemoglobin A1c Calcium Phosphorus Magnesium Ferritin AST ALT Alkaline Phosphatase Total Creatine Kinase CK-MB (CK-2) CK-MB (CK-2) Rel Index Troponin T Total Protein Albumin Triglycerides LDL Cholesterol Direct HDL Cholesterol Urine WBC (Auto) Urine Creatinine 03/21/20 03/21/20 03/22/20 17:44 21:55 04:33 WBC RBC Hgb 10.0 L Hct 29.4 L MCV MCHC RDW Lymph % (Auto) Cassia % (Auto) Lymph # Cassia # Seg Neutrophils % Seg Neuts % (Manual) Lymphocytes % (Manual) Nucleated RBC % Seg Neutrophils # Seg Neutrophils # Man Lymphocytes # (Manual) Monocytes # (Manual) Eosinophils # (Manual) PT INR Heparin Anti-Xa Level ABG pH ABG pO2 ABG HCO3 ABG O2 Saturation ABG Base Excess ABG Hemoglobin Oxyhemoglobin Sodium Potassium Chloride Carbon Dioxide BUN Creatinine Glucose POC Glucose 362 H 329 H Hemoglobin A1c Calcium Phosphorus Magnesium Ferritin AST ALT Alkaline Phosphatase Total Creatine Kinase CK-MB (CK-2) CK-MB (CK-2) Rel Index Troponin T Total Protein Albumin Triglycerides LDL Cholesterol Direct HDL Cholesterol Urine WBC (Auto) Urine Creatinine 03/22/20 03/22/20 03/22/20 08:57 14:12 19:57 WBC RBC Hgb Hct MCV MCHC RDW Lymph % (Auto) Cassia % (Auto) Lymph # Cassia # Seg Neutrophils % Seg Neuts % (Manual) Lymphocytes % (Manual) Nucleated RBC % Seg Neutrophils # Seg Neutrophils # Man Lymphocytes # (Manual) Monocytes # (Manual) Eosinophils # (Manual) PT INR Heparin Anti-Xa Level ABG pH ABG pO2 ABG HCO3 ABG O2 Saturation ABG Base Excess ABG Hemoglobin Oxyhemoglobin Sodium Potassium Chloride Carbon Dioxide BUN Creatinine Glucose POC Glucose 284 H 319 H 356 H Hemoglobin A1c Calcium Phosphorus Magnesium Ferritin AST ALT Alkaline Phosphatase Total Creatine Kinase CK-MB (CK-2) CK-MB (CK-2) Rel Index Troponin T Total Protein Albumin Triglycerides LDL Cholesterol Direct HDL Cholesterol Urine WBC (Auto) Urine Creatinine 03/22/20 03/23/20 03/23/20 21:44 08:18 12:46 WBC RBC Hgb Hct MCV MCHC RDW Lymph % (Auto) Cassia % (Auto) Lymph # Cassia # Seg Neutrophils % Seg Neuts % (Manual) Lymphocytes % (Manual) Nucleated RBC % Seg Neutrophils # Seg Neutrophils # Man Lymphocytes # (Manual) Monocytes # (Manual) Eosinophils # (Manual) PT INR Heparin Anti-Xa Level ABG pH ABG pO2 ABG HCO3 ABG O2 Saturation ABG Base Excess ABG Hemoglobin Oxyhemoglobin Sodium Potassium Chloride Carbon Dioxide BUN Creatinine Glucose POC Glucose 336 H 215 H 262 H Hemoglobin A1c Calcium Phosphorus Magnesium Ferritin AST ALT Alkaline Phosphatase Total Creatine Kinase CK-MB (CK-2) CK-MB (CK-2) Rel Index Troponin T Total Protein Albumin Triglycerides LDL Cholesterol Direct HDL Cholesterol Urine WBC (Auto) Urine Creatinine 03/23/20 03/23/20 03/24/20 15:56 22:05 02:35 WBC RBC Hgb 9.0 L Hct 25.8 L MCV MCHC RDW Lymph % (Auto) Cassia % (Auto) Lymph # Cassia # Seg Neutrophils % Seg Neuts % (Manual) Lymphocytes % (Manual) Nucleated RBC % Seg Neutrophils # Seg Neutrophils # Man Lymphocytes # (Manual) Monocytes # (Manual) Eosinophils # (Manual) PT INR Heparin Anti-Xa Level ABG pH ABG pO2 ABG HCO3 ABG O2 Saturation ABG Base Excess ABG Hemoglobin Oxyhemoglobin Sodium Potassium Chloride Carbon Dioxide BUN Creatinine Glucose POC Glucose 246 H 322 H Hemoglobin A1c Calcium Phosphorus Magnesium Ferritin AST ALT Alkaline Phosphatase Total Creatine Kinase CK-MB (CK-2) CK-MB (CK-2) Rel Index Troponin T Total Protein Albumin Triglycerides LDL Cholesterol Direct HDL Cholesterol Urine WBC (Auto) Urine Creatinine 03/24/20 03/24/20 03/24/20 07:38 11:45 16:02 WBC RBC Hgb Hct MCV MCHC RDW Lymph % (Auto) Cassia % (Auto) Lymph # Cassia # Seg Neutrophils % Seg Neuts % (Manual) Lymphocytes % (Manual) Nucleated RBC % Seg Neutrophils # Seg Neutrophils # Man Lymphocytes # (Manual) Monocytes # (Manual) Eosinophils # (Manual) PT INR Heparin Anti-Xa Level ABG pH ABG pO2 ABG HCO3 ABG O2 Saturation ABG Base Excess ABG Hemoglobin Oxyhemoglobin Sodium Potassium Chloride Carbon Dioxide BUN Creatinine Glucose POC Glucose 289 H 257 H 150 H Hemoglobin A1c Calcium Phosphorus Magnesium Ferritin AST ALT Alkaline Phosphatase Total Creatine Kinase CK-MB (CK-2) CK-MB (CK-2) Rel Index Troponin T Total Protein Albumin Triglycerides LDL Cholesterol Direct HDL Cholesterol Urine WBC (Auto) Urine Creatinine 03/24/20 03/25/20 03/25/20 21:24 04:06 07:39 WBC RBC Hgb Hct MCV MCHC RDW Lymph % (Auto) Cassia % (Auto) Lymph # Cassia # Seg Neutrophils % Seg Neuts % (Manual) Lymphocytes % (Manual) Nucleated RBC % Seg Neutrophils # Seg Neutrophils # Man Lymphocytes # (Manual) Monocytes # (Manual) Eosinophils # (Manual) PT INR Heparin Anti-Xa Level 0.10 L ABG pH ABG pO2 ABG HCO3 ABG O2 Saturation ABG Base Excess ABG Hemoglobin Oxyhemoglobin Sodium Potassium Chloride Carbon Dioxide BUN Creatinine Glucose POC Glucose 228 H 332 H Hemoglobin A1c Calcium Phosphorus Magnesium Ferritin AST ALT Alkaline Phosphatase Total Creatine Kinase CK-MB (CK-2) CK-MB (CK-2) Rel Index Troponin T Total Protein Albumin Triglycerides LDL Cholesterol Direct HDL Cholesterol Urine WBC (Auto) Urine Creatinine 03/25/20 03/25/20 03/25/20 08:13 09:30 11:59 WBC 13.1 H RBC 2.82 L Hgb 8.5 L Hct 26.1 L MCV MCHC RDW Lymph % (Auto) Cassia % (Auto) Lymph # Cassia # Seg Neutrophils % Seg Neuts % (Manual) Lymphocytes % (Manual) Nucleated RBC % Seg Neutrophils # Seg Neutrophils # Man Lymphocytes # (Manual) Monocytes # (Manual) Eosinophils # (Manual) PT INR Heparin Anti-Xa Level ABG pH ABG pO2 ABG HCO3 ABG O2 Saturation ABG Base Excess ABG Hemoglobin Oxyhemoglobin Sodium 131 L Potassium 5.3 H Chloride Carbon Dioxide 20 L BUN 39 H Creatinine 1.4 H Glucose 313 H POC Glucose 273 H Hemoglobin A1c Calcium 8.1 L Phosphorus Magnesium Ferritin AST ALT Alkaline Phosphatase Total Creatine Kinase CK-MB (CK-2) CK-MB (CK-2) Rel Index Troponin T Total Protein Albumin Triglycerides LDL Cholesterol Direct HDL Cholesterol Urine WBC (Auto) Urine Creatinine 03/25/20 03/25/20 03/25/20 13:54 15:58 18:21 WBC RBC Hgb Hct MCV MCHC RDW Lymph % (Auto) Cassia % (Auto) Lymph # Cassia # Seg Neutrophils % Seg Neuts % (Manual) Lymphocytes % (Manual) Nucleated RBC % Seg Neutrophils # Seg Neutrophils # Man Lymphocytes # (Manual) Monocytes # (Manual) Eosinophils # (Manual) PT INR Heparin Anti-Xa Level ABG pH ABG pO2 ABG HCO3 ABG O2 Saturation ABG Base Excess ABG Hemoglobin Oxyhemoglobin Sodium Potassium Chloride Carbon Dioxide BUN Creatinine Glucose POC Glucose 246 H 235 H 185 H Hemoglobin A1c Calcium Phosphorus Magnesium Ferritin AST ALT Alkaline Phosphatase Total Creatine Kinase CK-MB (CK-2) CK-MB (CK-2) Rel Index Troponin T Total Protein Albumin Triglycerides LDL Cholesterol Direct HDL Cholesterol Urine WBC (Auto) Urine Creatinine 03/25/20 03/26/20 03/26/20 20:45 05:15 06:59 WBC 17.4 H 15.6 H RBC 3.05 L 3.05 L Hgb 9.1 L 9.2 L Hct 28.2 L 27.9 L MCV MCHC RDW Lymph % (Auto) 8.9 L 8.9 L Cassia % (Auto) Lymph # Cassia # 1.0 H Seg Neutrophils % 84.4 H 84.8 H Seg Neuts % (Manual) Lymphocytes % (Manual) Nucleated RBC % Seg Neutrophils # 14.7 H 13.2 H Seg Neutrophils # Man Lymphocytes # (Manual) Monocytes # (Manual) Eosinophils # (Manual) PT INR Heparin Anti-Xa Level ABG pH ABG pO2 ABG HCO3 ABG O2 Saturation ABG Base Excess ABG Hemoglobin Oxyhemoglobin Sodium Potassium Chloride Carbon Dioxide BUN Creatinine Glucose POC Glucose 178 H Hemoglobin A1c Calcium Phosphorus Magnesium Ferritin AST ALT Alkaline Phosphatase Total Creatine Kinase CK-MB (CK-2) CK-MB (CK-2) Rel Index Troponin T Total Protein Albumin Triglycerides LDL Cholesterol Direct HDL Cholesterol Urine WBC (Auto) Urine Creatinine 03/26/20 03/26/20 03/26/20 06:59 07:43 11:56 WBC RBC Hgb Hct MCV MCHC RDW Lymph % (Auto) Cassia % (Auto) Lymph # Cassia # Seg Neutrophils % Seg Neuts % (Manual) Lymphocytes % (Manual) Nucleated RBC % Seg Neutrophils # Seg Neutrophils # Man Lymphocytes # (Manual) Monocytes # (Manual) Eosinophils # (Manual) PT INR Heparin Anti-Xa Level ABG pH ABG pO2 ABG HCO3 ABG O2 Saturation ABG Base Excess ABG Hemoglobin Oxyhemoglobin Sodium 131 L Potassium 5.8 H Chloride Carbon Dioxide 16 L BUN 42 H Creatinine 1.4 H Glucose 163 H POC Glucose 170 H 198 H Hemoglobin A1c Calcium 8.0 L Phosphorus Magnesium Ferritin AST ALT Alkaline Phosphatase Total Creatine Kinase CK-MB (CK-2) CK-MB (CK-2) Rel Index Troponin T Total Protein Albumin Triglycerides LDL Cholesterol Direct HDL Cholesterol Urine WBC (Auto) Urine Creatinine 03/26/20 03/26/20 03/26/20 13:58 16:16 21:00 WBC RBC Hgb Hct MCV MCHC RDW Lymph % (Auto) Cassia % (Auto) Lymph # Cassia # Seg Neutrophils % Seg Neuts % (Manual) Lymphocytes % (Manual) Nucleated RBC % Seg Neutrophils # Seg Neutrophils # Man Lymphocytes # (Manual) Monocytes # (Manual) Eosinophils # (Manual) PT INR Heparin Anti-Xa Level ABG pH ABG pO2 ABG HCO3 ABG O2 Saturation ABG Base Excess ABG Hemoglobin Oxyhemoglobin Sodium 128 L Potassium 6.0 H Chloride Carbon Dioxide 15 L BUN 45 H Creatinine 1.4 H Glucose 190 H POC Glucose 184 H 192 H Hemoglobin A1c Calcium 8.2 L Phosphorus Magnesium Ferritin AST ALT Alkaline Phosphatase Total Creatine Kinase CK-MB (CK-2) CK-MB (CK-2) Rel Index Troponin T Total Protein Albumin Triglycerides LDL Cholesterol Direct HDL Cholesterol Urine WBC (Auto) Urine Creatinine 03/27/20 03/27/20 03/27/20 08:32 11:51 14:39 WBC 22.9 H RBC 2.68 L Hgb 7.9 L Hct 24.7 L MCV MCHC RDW Lymph % (Auto) Cassia % (Auto) Lymph # Cassia # Seg Neutrophils % Seg Neuts % (Manual) Lymphocytes % (Manual) Nucleated RBC % Seg Neutrophils # Seg Neutrophils # Man Lymphocytes # (Manual) Monocytes # (Manual) Eosinophils # (Manual) PT INR Heparin Anti-Xa Level ABG pH ABG pO2 ABG HCO3 ABG O2 Saturation ABG Base Excess ABG Hemoglobin Oxyhemoglobin Sodium Potassium Chloride Carbon Dioxide BUN Creatinine Glucose POC Glucose 233 H 252 H Hemoglobin A1c Calcium Phosphorus Magnesium Ferritin AST ALT Alkaline Phosphatase Total Creatine Kinase CK-MB (CK-2) CK-MB (CK-2) Rel Index Troponin T Total Protein Albumin Triglycerides LDL Cholesterol Direct HDL Cholesterol Urine WBC (Auto) Urine Creatinine 03/27/20 03/27/20 03/27/20 14:39 15:19 21:35 WBC RBC Hgb Hct MCV MCHC RDW Lymph % (Auto) Cassia % (Auto) Lymph # Cassia # Seg Neutrophils % Seg Neuts % (Manual) Lymphocytes % (Manual) Nucleated RBC % Seg Neutrophils # Seg Neutrophils # Man Lymphocytes # (Manual) Monocytes # (Manual) Eosinophils # (Manual) PT INR Heparin Anti-Xa Level ABG pH ABG pO2 ABG HCO3 ABG O2 Saturation ABG Base Excess ABG Hemoglobin Oxyhemoglobin Sodium 133 L Potassium 5.5 H Chloride Carbon Dioxide 16 L BUN 46 H Creatinine 1.4 H Glucose 225 H POC Glucose 239 H 202 H Hemoglobin A1c Calcium 8.2 L Phosphorus Magnesium Ferritin AST ALT Alkaline Phosphatase Total Creatine Kinase CK-MB (CK-2) CK-MB (CK-2) Rel Index Troponin T Total Protein Albumin Triglycerides LDL Cholesterol Direct HDL Cholesterol Urine WBC (Auto) Urine Creatinine 03/28/20 03/28/20 03/28/20 07:39 07:39 08:36 WBC 22.4 H RBC 2.71 L Hgb 7.9 L Hct 24.5 L MCV MCHC RDW Lymph % (Auto) Cassia % (Auto) Lymph # Cassia # Seg Neutrophils % Seg Neuts % (Manual) 88.0 H Lymphocytes % (Manual) 5.0 L Nucleated RBC % Seg Neutrophils # Seg Neutrophils # Man 19.7 H Lymphocytes # (Manual) 1.1 L Monocytes # (Manual) 1.6 H Eosinophils # (Manual) PT INR Heparin Anti-Xa Level ABG pH ABG pO2 ABG HCO3 ABG O2 Saturation ABG Base Excess ABG Hemoglobin Oxyhemoglobin Sodium 134 L Potassium Chloride Carbon Dioxide 19 L BUN 47 H Creatinine Glucose 240 H POC Glucose 253 H Hemoglobin A1c Calcium 7.8 L Phosphorus Magnesium Ferritin AST ALT Alkaline Phosphatase Total Creatine Kinase CK-MB (CK-2) CK-MB (CK-2) Rel Index Troponin T Total Protein Albumin Triglycerides LDL Cholesterol Direct HDL Cholesterol Urine WBC (Auto) Urine Creatinine 03/28/20 03/28/20 03/28/20 11:54 17:08 21:17 WBC RBC Hgb Hct MCV MCHC RDW Lymph % (Auto) Cassia % (Auto) Lymph # Cassia # Seg Neutrophils % Seg Neuts % (Manual) Lymphocytes % (Manual) Nucleated RBC % Seg Neutrophils # Seg Neutrophils # Man Lymphocytes # (Manual) Monocytes # (Manual) Eosinophils # (Manual) PT INR Heparin Anti-Xa Level ABG pH ABG pO2 ABG HCO3 ABG O2 Saturation ABG Base Excess ABG Hemoglobin Oxyhemoglobin Sodium Potassium Chloride Carbon Dioxide BUN Creatinine Glucose POC Glucose 306 H 178 H 186 H Hemoglobin A1c Calcium Phosphorus Magnesium Ferritin AST ALT Alkaline Phosphatase Total Creatine Kinase CK-MB (CK-2) CK-MB (CK-2) Rel Index Troponin T Total Protein Albumin Triglycerides LDL Cholesterol Direct HDL Cholesterol Urine WBC (Auto) Urine Creatinine 03/29/20 03/29/20 03/29/20 08:32 12:04 14:19 WBC 21.5 H RBC 2.82 L Hgb 8.4 L Hct 26.1 L MCV MCHC RDW Lymph % (Auto) Cassia % (Auto) Lymph # Cassia # Seg Neutrophils % Seg Neuts % (Manual) 85.0 H Lymphocytes % (Manual) 11.0 L Nucleated RBC % 3.0 H Seg Neutrophils # Seg Neutrophils # Man 18.3 H Lymphocytes # (Manual) Monocytes # (Manual) Eosinophils # (Manual) 0.6 H PT INR Heparin Anti-Xa Level ABG pH ABG pO2 ABG HCO3 ABG O2 Saturation ABG Base Excess ABG Hemoglobin Oxyhemoglobin Sodium Potassium Chloride Carbon Dioxide BUN Creatinine Glucose POC Glucose 110 H 263 H Hemoglobin A1c Calcium Phosphorus Magnesium Ferritin AST ALT Alkaline Phosphatase Total Creatine Kinase CK-MB (CK-2) CK-MB (CK-2) Rel Index Troponin T Total Protein Albumin Triglycerides LDL Cholesterol Direct HDL Cholesterol Urine WBC (Auto) Urine Creatinine 03/29/20 03/29/20 03/30/20 16:17 22:57 11:00 WBC RBC Hgb Hct MCV MCHC RDW Lymph % (Auto) Cassia % (Auto) Lymph # Cassia # Seg Neutrophils % Seg Neuts % (Manual) Lymphocytes % (Manual) Nucleated RBC % Seg Neutrophils # Seg Neutrophils # Man Lymphocytes # (Manual) Monocytes # (Manual) Eosinophils # (Manual) PT INR Heparin Anti-Xa Level ABG pH ABG pO2 ABG HCO3 ABG O2 Saturation ABG Base Excess ABG Hemoglobin Oxyhemoglobin Sodium Potassium Chloride Carbon Dioxide BUN Creatinine Glucose POC Glucose 109 H 194 H 129 H Hemoglobin A1c Calcium Phosphorus Magnesium Ferritin AST ALT Alkaline Phosphatase Total Creatine Kinase CK-MB (CK-2) CK-MB (CK-2) Rel Index Troponin T Total Protein Albumin Triglycerides LDL Cholesterol Direct HDL Cholesterol Urine WBC (Auto) Urine Creatinine 03/30/20 03/30/20 03/31/20 15:16 21:54 04:27 WBC 15.8 H RBC 2.62 L Hgb 7.7 L Hct 24.1 L MCV MCHC RDW Lymph % (Auto) 9.4 L Cassia % (Auto) Lymph # Cassia # Seg Neutrophils % 84.4 H Seg Neuts % (Manual) Lymphocytes % (Manual) Nucleated RBC % Seg Neutrophils # 13.3 H Seg Neutrophils # Man Lymphocytes # (Manual) Monocytes # (Manual) Eosinophils # (Manual) PT INR Heparin Anti-Xa Level ABG pH ABG pO2 ABG HCO3 ABG O2 Saturation ABG Base Excess ABG Hemoglobin Oxyhemoglobin Sodium Potassium Chloride Carbon Dioxide BUN Creatinine Glucose POC Glucose 115 H 166 H Hemoglobin A1c Calcium Phosphorus Magnesium Ferritin AST ALT Alkaline Phosphatase Total Creatine Kinase CK-MB (CK-2) CK-MB (CK-2) Rel Index Troponin T Total Protein Albumin Triglycerides LDL Cholesterol Direct HDL Cholesterol Urine WBC (Auto) Urine Creatinine 03/31/20 03/31/20 03/31/20 04:27 07:37 11:46 WBC RBC Hgb Hct MCV MCHC RDW Lymph % (Auto) Cassia % (Auto) Lymph # Cassia # Seg Neutrophils % Seg Neuts % (Manual) Lymphocytes % (Manual) Nucleated RBC % Seg Neutrophils # Seg Neutrophils # Man Lymphocytes # (Manual) Monocytes # (Manual) Eosinophils # (Manual) PT INR Heparin Anti-Xa Level ABG pH ABG pO2 ABG HCO3 ABG O2 Saturation ABG Base Excess ABG Hemoglobin Oxyhemoglobin Sodium 133 L Potassium Chloride 96.6 L Carbon Dioxide 18 L BUN 75 H Creatinine 2.5 H D Glucose 129 H POC Glucose 156 H 224 H Hemoglobin A1c Calcium 8.0 L Phosphorus Magnesium Ferritin AST ALT Alkaline Phosphatase Total Creatine Kinase CK-MB (CK-2) CK-MB (CK-2) Rel Index Troponin T Total Protein Albumin Triglycerides LDL Cholesterol Direct HDL Cholesterol Urine WBC (Auto) Urine Creatinine 04/01/20 04/01/20 04/01/20 08:34 10:52 10:52 WBC 12.9 H RBC 2.75 L Hgb 8.2 L Hct 24.8 L MCV MCHC RDW Lymph % (Auto) 10.6 L Cassia % (Auto) Lymph # Cassia # Seg Neutrophils % 83.7 H Seg Neuts % (Manual) Lymphocytes % (Manual) Nucleated RBC % Seg Neutrophils # 10.8 H Seg Neutrophils # Man Lymphocytes # (Manual) Monocytes # (Manual) Eosinophils # (Manual) PT INR Heparin Anti-Xa Level ABG pH ABG pO2 ABG HCO3 ABG O2 Saturation ABG Base Excess ABG Hemoglobin Oxyhemoglobin Sodium 131 L Potassium Chloride 96.1 L Carbon Dioxide 17 L BUN 77 H Creatinine 2.3 H Glucose 205 H POC Glucose 110 H Hemoglobin A1c Calcium 7.9 L Phosphorus Magnesium Ferritin AST ALT Alkaline Phosphatase Total Creatine Kinase CK-MB (CK-2) CK-MB (CK-2) Rel Index Troponin T Total Protein Albumin Triglycerides LDL Cholesterol Direct HDL Cholesterol Urine WBC (Auto) Urine Creatinine 04/01/20 04/01/20 04/01/20 12:15 17:22 20:47 WBC RBC Hgb Hct MCV MCHC RDW Lymph % (Auto) Cassia % (Auto) Lymph # Cassia # Seg Neutrophils % Seg Neuts % (Manual) Lymphocytes % (Manual) Nucleated RBC % Seg Neutrophils # Seg Neutrophils # Man Lymphocytes # (Manual) Monocytes # (Manual) Eosinophils # (Manual) PT INR Heparin Anti-Xa Level ABG pH ABG pO2 ABG HCO3 ABG O2 Saturation ABG Base Excess ABG Hemoglobin Oxyhemoglobin Sodium Potassium Chloride Carbon Dioxide BUN Creatinine Glucose POC Glucose 201 H 219 H 156 H Hemoglobin A1c Calcium Phosphorus Magnesium Ferritin AST ALT Alkaline Phosphatase Total Creatine Kinase CK-MB (CK-2) CK-MB (CK-2) Rel Index Troponin T Total Protein Albumin Triglycerides LDL Cholesterol Direct HDL Cholesterol Urine WBC (Auto) Urine Creatinine 04/02/20 04/02/20 04/02/20 05:44 05:44 11:32 WBC 15.8 H RBC 2.81 L Hgb 8.2 L Hct 25.7 L MCV MCHC RDW Lymph % (Auto) Cassia % (Auto) Lymph # Cassia # 0.9 H Seg Neutrophils % 77.7 H Seg Neuts % (Manual) Lymphocytes % (Manual) Nucleated RBC % Seg Neutrophils # 12.3 H Seg Neutrophils # Man Lymphocytes # (Manual) Monocytes # (Manual) Eosinophils # (Manual) PT INR Heparin Anti-Xa Level ABG pH ABG pO2 ABG HCO3 ABG O2 Saturation ABG Base Excess ABG Hemoglobin Oxyhemoglobin Sodium 134 L Potassium Chloride Carbon Dioxide 19 L BUN 76 H Creatinine 2.0 H Glucose POC Glucose 116 H Hemoglobin A1c Calcium 8.0 L Phosphorus Magnesium Ferritin AST 291 H ALT 169 H Alkaline Phosphatase 256 H Total Creatine Kinase CK-MB (CK-2) CK-MB (CK-2) Rel Index Troponin T Total Protein 6.1 L Albumin 2.2 L Triglycerides LDL Cholesterol Direct HDL Cholesterol Urine WBC (Auto) Urine Creatinine 04/02/20 04/02/20 04/03/20 16:56 22:03 08:13 WBC RBC Hgb Hct MCV MCHC RDW Lymph % (Auto) Cassia % (Auto) Lymph # Cassia # Seg Neutrophils % Seg Neuts % (Manual) Lymphocytes % (Manual) Nucleated RBC % Seg Neutrophils # Seg Neutrophils # Man Lymphocytes # (Manual) Monocytes # (Manual) Eosinophils # (Manual) PT INR Heparin Anti-Xa Level ABG pH ABG pO2 ABG HCO3 ABG O2 Saturation ABG Base Excess ABG Hemoglobin Oxyhemoglobin Sodium Potassium Chloride Carbon Dioxide BUN Creatinine Glucose POC Glucose 141 H 152 H 126 H Hemoglobin A1c Calcium Phosphorus Magnesium Ferritin AST ALT Alkaline Phosphatase Total Creatine Kinase CK-MB (CK-2) CK-MB (CK-2) Rel Index Troponin T Total Protein Albumin Triglycerides LDL Cholesterol Direct HDL Cholesterol Urine WBC (Auto) Urine Creatinine 04/03/20 04/03/20 04/03/20 12:11 16:26 21:33 WBC RBC Hgb Hct MCV MCHC RDW Lymph % (Auto) Cassia % (Auto) Lymph # Cassia # Seg Neutrophils % Seg Neuts % (Manual) Lymphocytes % (Manual) Nucleated RBC % Seg Neutrophils # Seg Neutrophils # Man Lymphocytes # (Manual) Monocytes # (Manual) Eosinophils # (Manual) PT INR Heparin Anti-Xa Level ABG pH ABG pO2 ABG HCO3 ABG O2 Saturation ABG Base Excess ABG Hemoglobin Oxyhemoglobin Sodium Potassium Chloride Carbon Dioxide BUN Creatinine Glucose POC Glucose 139 H 164 H 147 H Hemoglobin A1c Calcium Phosphorus Magnesium Ferritin AST ALT Alkaline Phosphatase Total Creatine Kinase CK-MB (CK-2) CK-MB (CK-2) Rel Index Troponin T Total Protein Albumin Triglycerides LDL Cholesterol Direct HDL Cholesterol Urine WBC (Auto) Urine Creatinine 04/04/20 04/04/20 04/04/20 04:29 04:29 11:29 WBC 12.3 H RBC 2.88 L Hgb 8.4 L Hct 26.1 L MCV MCHC RDW Lymph % (Auto) Cassia % (Auto) Lymph # Cassia # Seg Neutrophils % 75.4 H Seg Neuts % (Manual) Lymphocytes % (Manual) Nucleated RBC % Seg Neutrophils # 9.3 H Seg Neutrophils # Man Lymphocytes # (Manual) Monocytes # (Manual) Eosinophils # (Manual) PT INR Heparin Anti-Xa Level ABG pH ABG pO2 ABG HCO3 ABG O2 Saturation ABG Base Excess ABG Hemoglobin Oxyhemoglobin Sodium 136 L Potassium Chloride Carbon Dioxide 19 L BUN 71 H Creatinine 1.7 H Glucose POC Glucose 108 H Hemoglobin A1c Calcium 8.0 L Phosphorus Magnesium Ferritin AST 673 H ALT 252 H Alkaline Phosphatase 311 H Total Creatine Kinase CK-MB (CK-2) CK-MB (CK-2) Rel Index Troponin T Total Protein Albumin 2.2 L Triglycerides LDL Cholesterol Direct HDL Cholesterol Urine WBC (Auto) Urine Creatinine 04/04/20 04/04/20 04/05/20 16:34 20:58 03:54 WBC 13.7 H RBC 3.03 L Hgb 8.7 L Hct 27.9 L MCV MCHC 31 L RDW 15.5 H Lymph % (Auto) Cassia % (Auto) Lymph # Cassia # Seg Neutrophils % 78.9 H Seg Neuts % (Manual) Lymphocytes % (Manual) Nucleated RBC % Seg Neutrophils # 10.8 H Seg Neutrophils # Man Lymphocytes # (Manual) Monocytes # (Manual) Eosinophils # (Manual) PT INR Heparin Anti-Xa Level ABG pH ABG pO2 ABG HCO3 ABG O2 Saturation ABG Base Excess ABG Hemoglobin Oxyhemoglobin Sodium Potassium Chloride Carbon Dioxide BUN Creatinine Glucose POC Glucose 151 H 131 H Hemoglobin A1c Calcium Phosphorus Magnesium Ferritin AST ALT Alkaline Phosphatase Total Creatine Kinase CK-MB (CK-2) CK-MB (CK-2) Rel Index Troponin T Total Protein Albumin Triglycerides LDL Cholesterol Direct HDL Cholesterol Urine WBC (Auto) Urine Creatinine 04/05/20 04/05/20 04/05/20 03:54 15:58 15:58 WBC RBC Hgb Hct MCV MCHC RDW Lymph % (Auto) Cassia % (Auto) Lymph # Cassia # Seg Neutrophils % Seg Neuts % (Manual) Lymphocytes % (Manual) Nucleated RBC % Seg Neutrophils # Seg Neutrophils # Man Lymphocytes # (Manual) Monocytes # (Manual) Eosinophils # (Manual) PT INR Heparin Anti-Xa Level ABG pH ABG pO2 67.1 L ABG HCO3 26.1 H ABG O2 Saturation 93.4 L ABG Base Excess ABG Hemoglobin 9.0 L Oxyhemoglobin 91.6 L Sodium 136 L Potassium 5.5 H Chloride Carbon Dioxide 21 L BUN 79 H Creatinine 1.9 H Glucose 63 L POC Glucose 129 H Hemoglobin A1c Calcium 8.2 L Phosphorus Magnesium Ferritin AST 696 H ALT 262 H Alkaline Phosphatase 325 H Total Creatine Kinase CK-MB (CK-2) CK-MB (CK-2) Rel Index Troponin T Total Protein Albumin 2.3 L Triglycerides LDL Cholesterol Direct HDL Cholesterol Urine WBC (Auto) Urine Creatinine 04/05/20 04/06/20 04/06/20 22:33 07:14 07:14 WBC RBC Hgb Hct MCV MCHC RDW Lymph % (Auto) Cassia % (Auto) Lymph # Cassia # Seg Neutrophils % Seg Neuts % (Manual) Lymphocytes % (Manual) Nucleated RBC % Seg Neutrophils # Seg Neutrophils # Man Lymphocytes # (Manual) Monocytes # (Manual) Eosinophils # (Manual) PT INR Heparin Anti-Xa Level ABG pH ABG pO2 ABG HCO3 ABG O2 Saturation ABG Base Excess ABG Hemoglobin Oxyhemoglobin Sodium Potassium 5.6 H Chloride Carbon Dioxide BUN 83 H Creatinine 1.9 H Glucose 202 H POC Glucose 253 H Hemoglobin A1c Calcium Phosphorus Magnesium Ferritin 444.2 H AST 469 H ALT 237 H Alkaline Phosphatase 332 H Total Creatine Kinase CK-MB (CK-2) CK-MB (CK-2) Rel Index Troponin T Total Protein Albumin 2.2 L Triglycerides LDL Cholesterol Direct HDL Cholesterol Urine WBC (Auto) Urine Creatinine 04/06/20 04/06/20 04/06/20 08:23 12:00 13:56 WBC RBC Hgb Hct MCV MCHC RDW Lymph % (Auto) Cassia % (Auto) Lymph # Cassia # Seg Neutrophils % Seg Neuts % (Manual) Lymphocytes % (Manual) Nucleated RBC % Seg Neutrophils # Seg Neutrophils # Man Lymphocytes # (Manual) Monocytes # (Manual) Eosinophils # (Manual) PT 27.0 H INR 2.44 H Heparin Anti-Xa Level ABG pH ABG pO2 ABG HCO3 ABG O2 Saturation ABG Base Excess ABG Hemoglobin Oxyhemoglobin Sodium Potassium Chloride Carbon Dioxide BUN Creatinine Glucose POC Glucose 226 H 176 H Hemoglobin A1c Calcium Phosphorus Magnesium Ferritin AST ALT Alkaline Phosphatase Total Creatine Kinase CK-MB (CK-2) CK-MB (CK-2) Rel Index Troponin T Total Protein Albumin Triglycerides LDL Cholesterol Direct HDL Cholesterol Urine WBC (Auto) Urine Creatinine 04/06/20 04/07/20 04/07/20 20:45 04:58 04:58 WBC RBC Hgb Hct MCV MCHC RDW Lymph % (Auto) Cassia % (Auto) Lymph # Cassia # Seg Neutrophils % Seg Neuts % (Manual) Lymphocytes % (Manual) Nucleated RBC % Seg Neutrophils # Seg Neutrophils # Man Lymphocytes # (Manual) Monocytes # (Manual) Eosinophils # (Manual) PT 30.9 H INR 2.89 H Heparin Anti-Xa Level ABG pH ABG pO2 ABG HCO3 ABG O2 Saturation ABG Base Excess ABG Hemoglobin Oxyhemoglobin Sodium Potassium 6.0 H Chloride Carbon Dioxide BUN 85 H Creatinine 2.1 H Glucose 177 H POC Glucose 139 H Hemoglobin A1c Calcium Phosphorus Magnesium Ferritin AST 351 H ALT 215 H Alkaline Phosphatase 332 H Total Creatine Kinase CK-MB (CK-2) CK-MB (CK-2) Rel Index Troponin T Total Protein Albumin 2.7 L Triglycerides LDL Cholesterol Direct HDL Cholesterol Urine WBC (Auto) Urine Creatinine 04/07/20 04/07/20 04/08/20 07:53 11:51 04:44 WBC 11.7 H RBC 3.07 L Hgb 9.1 L Hct 28.9 L MCV MCHC RDW 16.8 H Lymph % (Auto) 12.4 L Cassia % (Auto) Lymph # Cassia # Seg Neutrophils % 83.3 H Seg Neuts % (Manual) Lymphocytes % (Manual) Nucleated RBC % Seg Neutrophils # 9.7 H Seg Neutrophils # Man Lymphocytes # (Manual) Monocytes # (Manual) Eosinophils # (Manual) PT INR Heparin Anti-Xa Level ABG pH ABG pO2 ABG HCO3 ABG O2 Saturation ABG Base Excess ABG Hemoglobin Oxyhemoglobin Sodium Potassium Chloride Carbon Dioxide BUN Creatinine Glucose POC Glucose 167 H 120 H Hemoglobin A1c Calcium Phosphorus Magnesium Ferritin AST ALT Alkaline Phosphatase Total Creatine Kinase CK-MB (CK-2) CK-MB (CK-2) Rel Index Troponin T Total Protein Albumin Triglycerides LDL Cholesterol Direct HDL Cholesterol Urine WBC (Auto) Urine Creatinine 04/08/20 04/08/20 04/08/20 04:44 07:19 08:43 WBC RBC Hgb Hct MCV MCHC RDW Lymph % (Auto) Cassia % (Auto) Lymph # Cassia # Seg Neutrophils % Seg Neuts % (Manual) Lymphocytes % (Manual) Nucleated RBC % Seg Neutrophils # Seg Neutrophils # Man Lymphocytes # (Manual) Monocytes # (Manual) Eosinophils # (Manual) PT INR Heparin Anti-Xa Level ABG pH ABG pO2 ABG HCO3 ABG O2 Saturation ABG Base Excess ABG Hemoglobin Oxyhemoglobin Sodium Potassium 6.3 H* Chloride Carbon Dioxide 21 L BUN 89 H Creatinine 1.9 H Glucose 63 L POC Glucose 65 L 168 H Hemoglobin A1c Calcium Phosphorus Magnesium Ferritin AST 370 H ALT 211 H Alkaline Phosphatase 320 H Total Creatine Kinase CK-MB (CK-2) CK-MB (CK-2) Rel Index Troponin T Total Protein Albumin 2.6 L Triglycerides LDL Cholesterol Direct HDL Cholesterol Urine WBC (Auto) Urine Creatinine 04/08/20 04/08/20 04/08/20 12:53 16:38 21:47 WBC RBC Hgb Hct MCV MCHC RDW Lymph % (Auto) Cassia % (Auto) Lymph # Cassia # Seg Neutrophils % Seg Neuts % (Manual) Lymphocytes % (Manual) Nucleated RBC % Seg Neutrophils # Seg Neutrophils # Man Lymphocytes # (Manual) Monocytes # (Manual) Eosinophils # (Manual) PT INR Heparin Anti-Xa Level ABG pH ABG pO2 ABG HCO3 ABG O2 Saturation ABG Base Excess ABG Hemoglobin Oxyhemoglobin Sodium Potassium 6.0 H Chloride Carbon Dioxide BUN 90 H Creatinine 2.1 H Glucose 124 H POC Glucose 129 H 118 H Hemoglobin A1c Calcium Phosphorus Magnesium Ferritin AST ALT Alkaline Phosphatase Total Creatine Kinase CK-MB (CK-2) CK-MB (CK-2) Rel Index Troponin T Total Protein Albumin Triglycerides LDL Cholesterol Direct HDL Cholesterol Urine WBC (Auto) Urine Creatinine 04/09/20 04/09/20 04/09/20 03:45 08:04 19:10 WBC RBC Hgb Hct MCV MCHC RDW Lymph % (Auto) Cassia % (Auto) Lymph # Cassia # Seg Neutrophils % Seg Neuts % (Manual) Lymphocytes % (Manual) Nucleated RBC % Seg Neutrophils # Seg Neutrophils # Man Lymphocytes # (Manual) Monocytes # (Manual) Eosinophils # (Manual) PT INR Heparin Anti-Xa Level ABG pH 7.304 L ABG pO2 72.2 L ABG HCO3 ABG O2 Saturation 93.7 L ABG Base Excess -3.3 L ABG Hemoglobin 8.9 L Oxyhemoglobin 91.8 L Sodium Potassium 6.6 H* 6.5 H* Chloride Carbon Dioxide 21 L BUN 99 H 100 H Creatinine 2.2 H 2.3 H Glucose POC Glucose Hemoglobin A1c Calcium 8.2 L Phosphorus Magnesium Ferritin AST ALT Alkaline Phosphatase Total Creatine Kinase CK-MB (CK-2) CK-MB (CK-2) Rel Index Troponin T Total Protein Albumin Triglycerides LDL Cholesterol Direct HDL Cholesterol Urine WBC (Auto) Urine Creatinine 04/10/20 04/10/20 04/10/20 05:48 05:48 08:53 WBC RBC 3.01 L Hgb 8.9 L Hct 28.4 L MCV 95 H MCHC 31 L RDW 17.6 H Lymph % (Auto) 11.4 L Cassia % (Auto) Lymph # 1.1 L Cassia # Seg Neutrophils % 81.1 H Seg Neuts % (Manual) Lymphocytes % (Manual) Nucleated RBC % Seg Neutrophils # 8.1 H Seg Neutrophils # Man Lymphocytes # (Manual) Monocytes # (Manual) Eosinophils # (Manual) PT INR Heparin Anti-Xa Level ABG pH ABG pO2 ABG HCO3 ABG O2 Saturation ABG Base Excess ABG Hemoglobin Oxyhemoglobin Sodium Potassium 5.2 H Chloride Carbon Dioxide BUN 104 H Creatinine 2.2 H Glucose 129 H POC Glucose 110 H Hemoglobin A1c Calcium Phosphorus Magnesium 2.80 H Ferritin AST 502 H ALT 249 H Alkaline Phosphatase 323 H Total Creatine Kinase CK-MB (CK-2) CK-MB (CK-2) Rel Index Troponin T Total Protein Albumin 2.5 L Triglycerides LDL Cholesterol Direct HDL Cholesterol Urine WBC (Auto) Urine Creatinine 04/10/20 04/10/20 04/10/20 11:42 16:05 21:35 WBC RBC Hgb Hct MCV MCHC RDW Lymph % (Auto) Cassia % (Auto) Lymph # Cassia # Seg Neutrophils % Seg Neuts % (Manual) Lymphocytes % (Manual) Nucleated RBC % Seg Neutrophils # Seg Neutrophils # Man Lymphocytes # (Manual) Monocytes # (Manual) Eosinophils # (Manual) PT INR Heparin Anti-Xa Level ABG pH ABG pO2 ABG HCO3 ABG O2 Saturation ABG Base Excess ABG Hemoglobin Oxyhemoglobin Sodium Potassium Chloride Carbon Dioxide BUN Creatinine Glucose POC Glucose 135 H 137 H 151 H Hemoglobin A1c Calcium Phosphorus Magnesium Ferritin AST ALT Alkaline Phosphatase Total Creatine Kinase CK-MB (CK-2) CK-MB (CK-2) Rel Index Troponin T Total Protein Albumin Triglycerides LDL Cholesterol Direct HDL Cholesterol Urine WBC (Auto) Urine Creatinine 04/11/20 04/11/20 04/11/20 06:26 06:26 06:26 WBC RBC 2.89 L Hgb 8.6 L Hct 27.4 L MCV 95 H MCHC 31 L RDW 17.5 H Lymph % (Auto) 9.9 L Cassia % (Auto) Lymph # 1.0 L Cassia # Seg Neutrophils % 85.7 H Seg Neuts % (Manual) Lymphocytes % (Manual) Nucleated RBC % Seg Neutrophils # 8.8 H Seg Neutrophils # Man Lymphocytes # (Manual) Monocytes # (Manual) Eosinophils # (Manual) PT 24.0 H INR 2.10 H Heparin Anti-Xa Level ABG pH ABG pO2 ABG HCO3 ABG O2 Saturation ABG Base Excess ABG Hemoglobin Oxyhemoglobin Sodium 146 H Potassium 5.3 H Chloride 108.2 H Carbon Dioxide BUN 109 H Creatinine 2.1 H Glucose 160 H POC Glucose Hemoglobin A1c Calcium Phosphorus Magnesium Ferritin AST 298 H ALT 207 H Alkaline Phosphatase 274 H Total Creatine Kinase CK-MB (CK-2) CK-MB (CK-2) Rel Index Troponin T Total Protein Albumin 2.5 L Triglycerides LDL Cholesterol Direct HDL Cholesterol Urine WBC (Auto) Urine Creatinine 04/11/20 04/11/20 04/11/20 07:57 11:33 16:07 WBC RBC Hgb Hct MCV MCHC RDW Lymph % (Auto) Cassia % (Auto) Lymph # Cassia # Seg Neutrophils % Seg Neuts % (Manual) Lymphocytes % (Manual) Nucleated RBC % Seg Neutrophils # Seg Neutrophils # Man Lymphocytes # (Manual) Monocytes # (Manual) Eosinophils # (Manual) PT INR Heparin Anti-Xa Level ABG pH ABG pO2 ABG HCO3 ABG O2 Saturation ABG Base Excess ABG Hemoglobin Oxyhemoglobin Sodium Potassium Chloride Carbon Dioxide BUN Creatinine Glucose POC Glucose 170 H 167 H 140 H Hemoglobin A1c Calcium Phosphorus Magnesium Ferritin AST ALT Alkaline Phosphatase Total Creatine Kinase CK-MB (CK-2) CK-MB (CK-2) Rel Index Troponin T Total Protein Albumin Triglycerides LDL Cholesterol Direct HDL Cholesterol Urine WBC (Auto) Urine Creatinine 04/11/20 04/11/20 04/11/20 16:30 16:30 16:50 WBC RBC Hgb Hct MCV MCHC RDW Lymph % (Auto) Cassia % (Auto) Lymph # Cassia # Seg Neutrophils % Seg Neuts % (Manual) Lymphocytes % (Manual) Nucleated RBC % Seg Neutrophils # Seg Neutrophils # Man Lymphocytes # (Manual) Monocytes # (Manual) Eosinophils # (Manual) PT INR Heparin Anti-Xa Level ABG pH 7.325 L ABG pO2 304.4 H ABG HCO3 ABG O2 Saturation 99.5 H ABG Base Excess -4.4 L ABG Hemoglobin 10.9 L Oxyhemoglobin Sodium Potassium Chloride Carbon Dioxide BUN Creatinine Glucose POC Glucose Hemoglobin A1c Calcium Phosphorus Magnesium Ferritin AST ALT Alkaline Phosphatase Total Creatine Kinase CK-MB (CK-2) CK-MB (CK-2) Rel Index Troponin T Total Protein Albumin Triglycerides LDL Cholesterol Direct HDL Cholesterol Urine WBC (Auto) 16.0 H Urine Creatinine 60.0 H 04/11/20 04/11/20 04/11/20 18:17 18:17 18:57 WBC RBC 2.71 L Hgb 7.9 L Hct 26.1 L MCV 96 H MCHC 30 L RDW 18.3 H Lymph % (Auto) Cassia % (Auto) Lymph # Cassia # Seg Neutrophils % Seg Neuts % (Manual) 89.0 H Lymphocytes % (Manual) 7.0 L Nucleated RBC % Seg Neutrophils # Seg Neutrophils # Man 8.8 H Lymphocytes # (Manual) 0.7 L Monocytes # (Manual) Eosinophils # (Manual) PT INR Heparin Anti-Xa Level ABG pH ABG pO2 ABG HCO3 ABG O2 Saturation ABG Base Excess ABG Hemoglobin Oxyhemoglobin Sodium 146 H Potassium 5.8 H Chloride 107.5 H Carbon Dioxide 21 L BUN 111 H Creatinine 2.2 H Glucose 176 H POC Glucose 199 H Hemoglobin A1c Calcium Phosphorus 7.40 H Magnesium 2.90 H Ferritin AST 230 H ALT 163 H Alkaline Phosphatase 236 H Total Creatine Kinase 351 H CK-MB (CK-2) CK-MB (CK-2) Rel Index Troponin T 3.950 H* Total Protein 5.7 L Albumin 2.1 L Triglycerides LDL Cholesterol Direct HDL Cholesterol 19 L Urine WBC (Auto) Urine Creatinine 04/11/20 04/12/20 04/12/20 21:21 01:41 04:45 WBC RBC Hgb Hct MCV MCHC RDW Lymph % (Auto) Cassia % (Auto) Lymph # Cassia # Seg Neutrophils % Seg Neuts % (Manual) Lymphocytes % (Manual) Nucleated RBC % Seg Neutrophils # Seg Neutrophils # Man Lymphocytes # (Manual) Monocytes # (Manual) Eosinophils # (Manual) PT INR Heparin Anti-Xa Level ABG pH 7.451 H ABG pO2 ABG HCO3 ABG O2 Saturation ABG Base Excess ABG Hemoglobin 6.2 L Oxyhemoglobin Sodium 147 H Potassium 6.0 H Chloride 111.8 H Carbon Dioxide 21 L BUN 117 H Creatinine 2.6 H Glucose 201 H POC Glucose 248 H Hemoglobin A1c Calcium 8.0 L Phosphorus Magnesium Ferritin AST ALT Alkaline Phosphatase Total Creatine Kinase CK-MB (CK-2) CK-MB (CK-2) Rel Index Troponin T Total Protein Albumin Triglycerides LDL Cholesterol Direct HDL Cholesterol Urine WBC (Auto) Urine Creatinine 04/12/20 04/12/20 04/12/20 07:22 07:22 07:22 WBC 12.1 H RBC 2.96 L Hgb 8.7 L Hct 28.1 L MCV 95 H MCHC 31 L RDW 17.7 H Lymph % (Auto) 7.1 L Cassia % (Auto) Lymph # 0.9 L Cassia # Seg Neutrophils % 85.8 H Seg Neuts % (Manual) Lymphocytes % (Manual) Nucleated RBC % Seg Neutrophils # 10.4 H Seg Neutrophils # Man Lymphocytes # (Manual) Monocytes # (Manual) Eosinophils # (Manual) PT 22.9 H INR 1.99 H Heparin Anti-Xa Level ABG pH ABG pO2 ABG HCO3 ABG O2 Saturation ABG Base Excess ABG Hemoglobin Oxyhemoglobin Sodium 147 H Potassium 5.2 H Chloride 109.8 H Carbon Dioxide 20 L BUN 120 H Creatinine 2.8 H Glucose 158 H POC Glucose Hemoglobin A1c Calcium Phosphorus Magnesium 3.00 H Ferritin AST 195 H ALT 162 H Alkaline Phosphatase 244 H Total Creatine Kinase CK-MB (CK-2) CK-MB (CK-2) Rel Index Troponin T Total Protein 5.9 L Albumin 2.4 L Triglycerides LDL Cholesterol Direct HDL Cholesterol Urine WBC (Auto) Urine Creatinine 04/12/20 04/12/20 04/12/20 11:54 16:30 21:05 WBC RBC Hgb Hct MCV MCHC RDW Lymph % (Auto) Cassia % (Auto) Lymph # Cassia # Seg Neutrophils % Seg Neuts % (Manual) Lymphocytes % (Manual) Nucleated RBC % Seg Neutrophils # Seg Neutrophils # Man Lymphocytes # (Manual) Monocytes # (Manual) Eosinophils # (Manual) PT INR Heparin Anti-Xa Level ABG pH ABG pO2 ABG HCO3 ABG O2 Saturation ABG Base Excess ABG Hemoglobin Oxyhemoglobin Sodium 146 H Potassium 5.2 H Chloride 107.3 H Carbon Dioxide 21 L BUN 132 H Creatinine 3.4 H Glucose 212 H POC Glucose 213 H 181 H Hemoglobin A1c Calcium Phosphorus Magnesium Ferritin AST ALT Alkaline Phosphatase Total Creatine Kinase CK-MB (CK-2) CK-MB (CK-2) Rel Index Troponin T Total Protein Albumin Triglycerides LDL Cholesterol Direct HDL Cholesterol Urine WBC (Auto) Urine Creatinine 04/12/20 04/12/20 04/13/20 21:17 23:24 04:25 WBC RBC Hgb Hct MCV MCHC RDW Lymph % (Auto) Cassia % (Auto) Lymph # Cassia # Seg Neutrophils % Seg Neuts % (Manual) Lymphocytes % (Manual) Nucleated RBC % Seg Neutrophils # Seg Neutrophils # Man Lymphocytes # (Manual) Monocytes # (Manual) Eosinophils # (Manual) PT INR Heparin Anti-Xa Level ABG pH ABG pO2 161.4 H ABG HCO3 ABG O2 Saturation ABG Base Excess -2.8 L ABG Hemoglobin 7.6 L Oxyhemoglobin Sodium Potassium Chloride Carbon Dioxide BUN Creatinine Glucose POC Glucose 203 H 221 H Hemoglobin A1c Calcium Phosphorus Magnesium Ferritin AST ALT Alkaline Phosphatase Total Creatine Kinase CK-MB (CK-2) CK-MB (CK-2) Rel Index Troponin T Total Protein Albumin Triglycerides LDL Cholesterol Direct HDL Cholesterol Urine WBC (Auto) Urine Creatinine 04/13/20 04/13/20 04/13/20 04:35 04:35 04:35 WBC 13.3 H RBC 2.68 L Hgb 8.0 L Hct 25.1 L MCV MCHC RDW 17.4 H Lymph % (Auto) 9.1 L Cassia % (Auto) Lymph # Cassia # 0.9 H Seg Neutrophils % 84.0 H Seg Neuts % (Manual) Lymphocytes % (Manual) Nucleated RBC % Seg Neutrophils # 11.1 H Seg Neutrophils # Man Lymphocytes # (Manual) Monocytes # (Manual) Eosinophils # (Manual) PT 27.8 H INR 2.55 H Heparin Anti-Xa Level ABG pH ABG pO2 ABG HCO3 ABG O2 Saturation ABG Base Excess ABG Hemoglobin Oxyhemoglobin Sodium 149 H Potassium 5.2 H Chloride 109.1 H Carbon Dioxide 20 L BUN 136 H Creatinine 3.5 H Glucose 271 H POC Glucose Hemoglobin A1c Calcium 8.3 L Phosphorus Magnesium Ferritin AST 241 H ALT 153 H Alkaline Phosphatase 294 H Total Creatine Kinase CK-MB (CK-2) CK-MB (CK-2) Rel Index Troponin T Total Protein 6.0 L Albumin 2.3 L Triglycerides LDL Cholesterol Direct HDL Cholesterol Urine WBC (Auto) Urine Creatinine 0804/13/20 04/13/20 05:27 13:53 16:54 WBC RBC Hgb Hct MCV MCHC RDW Lymph % (Auto) Cassia % (Auto) Lymph # Cassia # Seg Neutrophils % Seg Neuts % (Manual) Lymphocytes % (Manual) Nucleated RBC % Seg Neutrophils # Seg Neutrophils # Man Lymphocytes # (Manual) Monocytes # (Manual) Eosinophils # (Manual) PT INR Heparin Anti-Xa Level ABG pH ABG pO2 ABG HCO3 ABG O2 Saturation ABG Base Excess ABG Hemoglobin Oxyhemoglobin Sodium Potassium Chloride Carbon Dioxide BUN Creatinine Glucose POC Glucose 284 H 320 H 357 H Hemoglobin A1c Calcium Phosphorus Magnesium Ferritin AST ALT Alkaline Phosphatase Total Creatine Kinase CK-MB (CK-2) CK-MB (CK-2) Rel Index Troponin T Total Protein Albumin Triglycerides LDL Cholesterol Direct HDL Cholesterol Urine WBC (Auto) Urine Creatinine 04/14/20 04/14/20 04/14/20 00:13 04:38 05:47 WBC RBC Hgb Hct MCV MCHC RDW Lymph % (Auto) Cassia % (Auto) Lymph # Cassia # Seg Neutrophils % Seg Neuts % (Manual) Lymphocytes % (Manual) Nucleated RBC % Seg Neutrophils # Seg Neutrophils # Man Lymphocytes # (Manual) Monocytes # (Manual) Eosinophils # (Manual) PT INR Heparin Anti-Xa Level ABG pH ABG pO2 ABG HCO3 ABG O2 Saturation ABG Base Excess -3.6 L ABG Hemoglobin 8.0 L Oxyhemoglobin 94.7 L Sodium Potassium Chloride Carbon Dioxide BUN Creatinine Glucose POC Glucose 251 H 273 H Hemoglobin A1c Calcium Phosphorus Magnesium Ferritin AST ALT Alkaline Phosphatase Total Creatine Kinase CK-MB (CK-2) CK-MB (CK-2) Rel Index Troponin T Total Protein Albumin Triglycerides LDL Cholesterol Direct HDL Cholesterol Urine WBC (Auto) Urine Creatinine 04/14/20 04/14/20 04/14/20 07:00 07:00 07:00 WBC RBC Hgb 7.8 L Hct 25.3 L MCV MCHC RDW Lymph % (Auto) Cassia % (Auto) Lymph # Cassia # Seg Neutrophils % Seg Neuts % (Manual) Lymphocytes % (Manual) Nucleated RBC % Seg Neutrophils # Seg Neutrophils # Man Lymphocytes # (Manual) Monocytes # (Manual) Eosinophils # (Manual) PT 24.3 H INR 2.15 H Heparin Anti-Xa Level ABG pH ABG pO2 ABG HCO3 ABG O2 Saturation ABG Base Excess ABG Hemoglobin Oxyhemoglobin Sodium Potassium Chloride Carbon Dioxide 20 L BUN 151 H Creatinine 4.1 H Glucose 266 H POC Glucose Hemoglobin A1c Calcium 7.7 L Phosphorus Magnesium Ferritin AST 176 H ALT 123 H Alkaline Phosphatase 259 H Total Creatine Kinase CK-MB (CK-2) CK-MB (CK-2) Rel Index Troponin T Total Protein 5.5 L Albumin 2.1 L Triglycerides LDL Cholesterol Direct HDL Cholesterol Urine WBC (Auto) Urine Creatinine 04/14/20 04/14/20 04/14/20 11:56 12:00 16:13 WBC RBC Hgb Hct MCV MCHC RDW Lymph % (Auto) Cassia % (Auto) Lymph # Cassia # Seg Neutrophils % Seg Neuts % (Manual) Lymphocytes % (Manual) Nucleated RBC % Seg Neutrophils # Seg Neutrophils # Man Lymphocytes # (Manual) Monocytes # (Manual) Eosinophils # (Manual) PT INR Heparin Anti-Xa Level ABG pH ABG pO2 ABG HCO3 ABG O2 Saturation ABG Base Excess ABG Hemoglobin Oxyhemoglobin Sodium Potassium Chloride 108.0 H Carbon Dioxide 17 L BUN 135 H Creatinine 3.9 H Glucose 265 H POC Glucose 313 H 331 H Hemoglobin A1c Calcium Phosphorus 6.70 H Magnesium 2.40 H Ferritin AST ALT Alkaline Phosphatase Total Creatine Kinase CK-MB (CK-2) CK-MB (CK-2) Rel Index Troponin T Total Protein Albumin Triglycerides LDL Cholesterol Direct HDL Cholesterol Urine WBC (Auto) Urine Creatinine 04/14/20 04/15/20 04/15/20 17:51 00:00 04:34 WBC RBC Hgb Hct MCV MCHC RDW Lymph % (Auto) Cassia % (Auto) Lymph # Cassia # Seg Neutrophils % Seg Neuts % (Manual) Lymphocytes % (Manual) Nucleated RBC % Seg Neutrophils # Seg Neutrophils # Man Lymphocytes # (Manual) Monocytes # (Manual) Eosinophils # (Manual) PT INR Heparin Anti-Xa Level ABG pH ABG pO2 ABG HCO3 19.9 L ABG O2 Saturation ABG Base Excess -4.1 L ABG Hemoglobin 7.5 L Oxyhemoglobin 94.9 L Sodium Potassium Chloride Carbon Dioxide BUN Creatinine Glucose POC Glucose 347 H 325 H Hemoglobin A1c Calcium Phosphorus Magnesium Ferritin AST ALT Alkaline Phosphatase Total Creatine Kinase CK-MB (CK-2) CK-MB (CK-2) Rel Index Troponin T Total Protein Albumin Triglycerides LDL Cholesterol Direct HDL Cholesterol Urine WBC (Auto) Urine Creatinine 08/04/15/20 04/15/20 04:57 05:39 11:59 WBC RBC Hgb Hct MCV MCHC RDW Lymph % (Auto) Cassia % (Auto) Lymph # Cassia # Seg Neutrophils % Seg Neuts % (Manual) Lymphocytes % (Manual) Nucleated RBC % Seg Neutrophils # Seg Neutrophils # Man Lymphocytes # (Manual) Monocytes # (Manual) Eosinophils # (Manual) PT INR Heparin Anti-Xa Level ABG pH ABG pO2 ABG HCO3 ABG O2 Saturation ABG Base Excess ABG Hemoglobin Oxyhemoglobin Sodium Potassium 5.1 H Chloride Carbon Dioxide 20 L BUN 163 H Creatinine 4.5 H Glucose 274 H POC Glucose 257 H 330 H Hemoglobin A1c Calcium 7.8 L Phosphorus Magnesium Ferritin AST 130 H ALT 105 H Alkaline Phosphatase 254 H Total Creatine Kinase CK-MB (CK-2) CK-MB (CK-2) Rel Index Troponin T Total Protein 5.8 L Albumin 2.0 L Triglycerides LDL Cholesterol Direct HDL Cholesterol Urine WBC (Auto) Urine Creatinine 04/15/20 04/15/20 04/16/20 18:53 23:58 04:25 WBC RBC Hgb Hct MCV MCHC RDW Lymph % (Auto) Cassia % (Auto) Lymph # Cassia # Seg Neutrophils % Seg Neuts % (Manual) Lymphocytes % (Manual) Nucleated RBC % Seg Neutrophils # Seg Neutrophils # Man Lymphocytes # (Manual) Monocytes # (Manual) Eosinophils # (Manual) PT INR Heparin Anti-Xa Level ABG pH 7.304 L ABG pO2 74.6 L ABG HCO3 18.8 L ABG O2 Saturation ABG Base Excess -6.9 L ABG Hemoglobin 5.0 L Oxyhemoglobin Sodium Potassium Chloride Carbon Dioxide BUN Creatinine Glucose POC Glucose 315 H 260 H Hemoglobin A1c Calcium Phosphorus Magnesium Ferritin AST ALT Alkaline Phosphatase Total Creatine Kinase CK-MB (CK-2) CK-MB (CK-2) Rel Index Troponin T Total Protein Albumin Triglycerides LDL Cholesterol Direct HDL Cholesterol Urine WBC (Auto) Urine Creatinine 04/16/20 04/16/20 05:00 05:17 WBC RBC Hgb Hct MCV MCHC RDW Lymph % (Auto) Cassia % (Auto) Lymph # Cassia # Seg Neutrophils % Seg Neuts % (Manual) Lymphocytes % (Manual) Nucleated RBC % Seg Neutrophils # Seg Neutrophils # Man Lymphocytes # (Manual) Monocytes # (Manual) Eosinophils # (Manual) PT INR Heparin Anti-Xa Level ABG pH ABG pO2 ABG HCO3 ABG O2 Saturation ABG Base Excess ABG Hemoglobin Oxyhemoglobin Sodium Potassium 5.9 H Chloride Carbon Dioxide 19 L BUN 177 H Creatinine 5.1 H Glucose 261 H POC Glucose 255 H Hemoglobin A1c Calcium 7.7 L Phosphorus Magnesium Ferritin AST 116 H ALT 83 H Alkaline Phosphatase 254 H Total Creatine Kinase CK-MB (CK-2) CK-MB (CK-2) Rel Index Troponin T Total Protein 5.6 L Albumin 2.3 L Triglycerides LDL Cholesterol Direct HDL Cholesterol Urine WBC (Auto) Urine Creatinine Chest x-ray: image reviewed (ETT in good position) Allied health notes reviewed: nursing
[2020-04-16] MEDS: CLOPIDOGREL 75 MG TAB PO SCH (11:53)
--- NOTE | 2020-04-16 12:20 | Progress Note ---
Assessment and Plan 1-Anoxic brain injury/metabolic encephalopathy; -Secondary to cardiac arrest, pt. is off sedation -currently with absent all brain stem reflexes on evaluation -Possible brain -Very poor prognosis, family aware 2-Acute CVA: - As per MRI -Aspirin and statin, -Poor prognosis, anoxic brain injury 3-Acute hypoxic respiratory failure; -Intubated on ventilatory support Wean as tolerated and extubate, poor prognosis 4-V. tach cardiac arrest; status post CPR per ACLS -On mechanical ventilation, poor prognosis- -No spontaneous breathing Full CODE STATUS 5-Ventricular tachycardia sustained 04/14/2020; resolved -s/pAmiodarone bolus, followed by amiodarone drip -s/p Cardioversion /lidocaine bolus /lidocaine drip -Transaminitis/Acute liver failure/coagulopathy -Sepsis/infected BKA stump/possible pneumonia -Septic shock; -PAD /acute LLE ischemia s/p BKA -Non-ST elevation ND : -Acute renal failure; ATN -Type II diabetes mellitus -Anemia; -Severe protein calorie malnutrition -DVT prophylaxis - Full code status PLAN 1- Recommend consider CTA brain look for brain blood flow !!! 2- pt. is with absent brain stem reflexes or spontaneous breathing !!brain !!! 3- To D/W family Subjective Date of service: 04/16/20 Principal diagnosis: Acute limb ischemia; STARR; COPD; Ac hypoxemic resp failure; DM II; NSTEMI Objective - Vital Sign Vital Signs - 12hr 04/16/20 04/16/20 04/16/20 00:15 00:30 00:45 Temperature Pulse Rate 67 68 68 Pulse Rate [ Anterior Bilateral Throughout] Pulse Rate [ From Monitor] Respiratory 17 14 17 Rate Respiratory Rate [Anterior Bilateral Throughout] Respiratory Rate [Left Leg] Respiratory Rate [left foot ] Blood Pressure 93/61 99/61 102/58 O2 Sat by Pulse 95 95 96 Oximetry 04/16/20 04/16/20 04/16/20 01:00 01:15 01:30 Temperature Pulse Rate 68 68 67 Pulse Rate [ Anterior Bilateral Throughout] Pulse Rate [ From Monitor] Respiratory 19 18 24 Rate Respiratory Rate [Anterior Bilateral Throughout] Respiratory Rate [Left Leg] Respiratory Rate [left foot ] Blood Pressure 98/59 101/59 89/65 O2 Sat by Pulse 96 96 93 Oximetry 04/16/20 04/16/20 04/16/20 01:46 02:00 02:16 Temperature Pulse Rate 68 68 69 Pulse Rate [ Anterior Bilateral Throughout] Pulse Rate [ From Monitor] Respiratory 17 16 20 Rate Respiratory Rate [Anterior Bilateral Throughout] Respiratory Rate [Left Leg] Respiratory Rate [left foot ] Blood Pressure 100/63 89/65 90/60 O2 Sat by Pulse 91 91 93 Oximetry 04/16/20 04/16/20 04/16/20 02:25 02:30 02:46 Temperature Pulse Rate 68 70 69 Pulse Rate [ Anterior Bilateral Throughout] Pulse Rate [ 78 From Monitor] Respiratory 20 16 20 Rate Respiratory Rate [Anterior Bilateral Throughout] Respiratory Rate [Left Leg] Respiratory Rate [left foot ] Blood Pressure 93/61 96/61 O2 Sat by Pulse 100 98 99 Oximetry 04/16/20 04/16/20 04/16/20 03:00 03:10 03:16 Temperature Pulse Rate 69 70 68 Pulse Rate [ Anterior Bilateral Throughout] Pulse Rate [ From Monitor] Respiratory 20 20 Rate Respiratory Rate [Anterior Bilateral Throughout] Respiratory Rate [Left Leg] Respiratory Rate [left foot ] Blood Pressure 99/60 97/58 97/58 O2 Sat by Pulse 98 98 98 Oximetry 04/16/20 04/16/20 04/16/20 03:30 03:33 03:46 Temperature 98.7 F Pulse Rate 69 68 Pulse Rate [ Anterior Bilateral Throughout] Pulse Rate [ From Monitor] Respiratory 16 21 Rate Respiratory Rate [Anterior Bilateral Throughout] Respiratory Rate [Left Leg] Respiratory Rate [left foot ] Blood Pressure 95/63 101/61 O2 Sat by Pulse 98 97 Oximetry 04/16/20 04/16/20 04/16/20 04:00 04:05 04:16 Temperature Pulse Rate 68 68 68 Pulse Rate [ Anterior Bilateral Throughout] Pulse Rate [ 78 From Monitor] Respiratory 19 20 20 Rate Respiratory Rate [Anterior Bilateral Throughout] Respiratory Rate [Left Leg] Respiratory Rate [left foot ] Blood Pressure 105/61 105/63 O2 Sat by Pulse 95 100 94 Oximetry 04/16/20 04/16/20 04/16/20 04:30 04:45 05:00 Temperature Pulse Rate 68 68 69 Pulse Rate [ Anterior Bilateral Throughout] Pulse Rate [ From Monitor] Respiratory 19 20 20 Rate Respiratory Rate [Anterior Bilateral Throughout] Respiratory Rate [Left Leg] Respiratory Rate [left foot ] Blood Pressure 139/86 134/93 143/103 O2 Sat by Pulse 94 95 95 Oximetry 04/16/20 04/16/20 04/16/20 05:16 05:30 05:46 Temperature Pulse Rate 68 70 70 Pulse Rate [ Anterior Bilateral Throughout] Pulse Rate [ 78 From Monitor] Respiratory 21 21 21 Rate Respiratory Rate [Anterior Bilateral Throughout] Respiratory Rate [Left Leg] Respiratory Rate [left foot ] Blood Pressure 144/93 144/93 132/79 O2 Sat by Pulse 97 100 100 Oximetry 04/16/20 04/16/20 04/16/20 06:00 06:16 06:30 Temperature Pulse Rate 64 62 67 Pulse Rate [ Anterior Bilateral Throughout] Pulse Rate [ From Monitor] Respiratory 18 19 15 Rate Respiratory Rate [Anterior Bilateral Throughout] Respiratory Rate [Left Leg] Respiratory Rate [left foot ] Blood Pressure 132/79 133/57 129/61 O2 Sat by Pulse 67 L 66 L 100 Oximetry 04/16/20 04/16/20 04/16/20 06:46 07:00 07:15 Temperature Pulse Rate 66 68 68 Pulse Rate [ Anterior Bilateral Throughout] Pulse Rate [ From Monitor] Respiratory 29 H 29 H 29 H Rate Respiratory Rate [Anterior Bilateral Throughout] Respiratory Rate [Left Leg] Respiratory Rate [left foot ] Blood Pressure 134/68 134/68 129/71 O2 Sat by Pulse 90 96 86 Oximetry 04/16/20 04/16/20 04/16/20 07:30 07:45 07:52 Temperature Pulse Rate 67 67 Pulse Rate [ 67 Anterior Bilateral Throughout] Pulse Rate [ From Monitor] Respiratory 20 21 Rate Respiratory 24 Rate [Anterior Bilateral Throughout] Respiratory Rate [Left Leg] Respiratory Rate [left foot ] Blood Pressure 125/54 129/60 O2 Sat by Pulse 84 100 Oximetry 04/16/20 04/16/20 04/16/20 08:00 08:15 08:30 Temperature 98.2 F Pulse Rate 67 67 67 Pulse Rate [ Anterior Bilateral Throughout] Pulse Rate [ 66 From Monitor] Respiratory 24 19 18 Rate Respiratory Rate [Anterior Bilateral Throughout] Respiratory Rate [Left Leg] Respiratory Rate [left foot ] Blood Pressure 129/60 95/55 111/45 O2 Sat by Pulse 97 97 95 Oximetry 04/16/20 04/16/20 04/16/20 08:38 08:45 09:00 Temperature Pulse Rate 67 67 Pulse Rate [ Anterior Bilateral Throughout] Pulse Rate [ From Monitor] Respiratory 22 19 Rate Respiratory Rate [Anterior Bilateral Throughout] Respiratory Rate [Left Leg] Respiratory Rate [left foot ] Blood Pressure 94/53 95/52 O2 Sat by Pulse 98 97 94 Oximetry 04/16/20 04/16/20 04/16/20 09:15 09:30 09:45 Temperature Pulse Rate 66 66 67 Pulse Rate [ Anterior Bilateral Throughout] Pulse Rate [ From Monitor] Respiratory 22 21 14 Rate Respiratory Rate [Anterior Bilateral Throughout] Respiratory Rate [Left Leg] Respiratory Rate [left foot ] Blood Pressure 94/55 94/55 83/59 O2 Sat by Pulse 96 96 91 Oximetry 04/16/20 04/16/20 04/16/20 10:00 10:15 10:30 Temperature Pulse Rate 67 67 67 Pulse Rate [ Anterior Bilateral Throughout] Pulse Rate [ From Monitor] Respiratory 20 22 21 Rate Respiratory Rate [Anterior Bilateral Throughout] Respiratory 19 Rate [Left Leg] Respiratory 19 Rate [left foot ] Blood Pressure 83/59 96/53 105/53 O2 Sat by Pulse 91 91 93 Oximetry 04/16/20 04/16/20 04/16/20 10:45 11:00 11:15 Temperature Pulse Rate 66 67 68 Pulse Rate [ Anterior Bilateral Throughout] Pulse Rate [ From Monitor] Respiratory 22 21 21 Rate Respiratory Rate [Anterior Bilateral Throughout] Respiratory Rate [Left Leg] Respiratory Rate [left foot ] Blood Pressure 96/50 99/53 106/52 O2 Sat by Pulse 95 97 94 Oximetry 04/16/20 04/16/20 04/16/20 11:30 11:41 11:46 Temperature Pulse Rate 67 68 68 Pulse Rate [ Anterior Bilateral Throughout] Pulse Rate [ From Monitor] Respiratory 22 22 Rate Respiratory Rate [Anterior Bilateral Throughout] Respiratory Rate [Left Leg] Respiratory Rate [left foot ] Blood Pressure 101/53 101/53 103/53 O2 Sat by Pulse 94 93 93 Oximetry - Additional Exam Additional Exam: pt. is unresponsive to pain stemuli , no EOM no corneal , no gag , no cough , no spontaneous breathing is noted - Laboratory Findings CBC and BMP: 04/14/20 07:00 04/16/20 05:00 Abnormal Lab Findings: Abnormal Labs 03/18/20 03/18/20 03/18/20 18:28 18:28 20:56 WBC 12.3 H RBC Hgb Hct MCV MCHC RDW Lymph % (Auto) 11.0 L Patrick % (Auto) 9.8 H Lymph # Patrick # 1.2 H Seg Neutrophils % 78.4 H Seg Neuts % (Manual) Lymphocytes % (Manual) Nucleated RBC % Seg Neutrophils # 9.6 H Seg Neutrophils # Man Lymphocytes # (Manual) Monocytes # (Manual) Eosinophils # (Manual) PT INR Heparin Anti-Xa Level ABG pH ABG pO2 ABG HCO3 ABG O2 Saturation ABG Base Excess ABG Hemoglobin Oxyhemoglobin Sodium 132 L Potassium Chloride 91.9 L Carbon Dioxide 20 L BUN Creatinine 1.4 H Glucose 406 H POC Glucose Hemoglobin A1c Calcium Phosphorus Magnesium Ferritin AST ALT Alkaline Phosphatase Total Creatine Kinase 2727 H 2492 H CK-MB (CK-2) 135.9 H 107.2 H CK-MB (CK-2) Rel Index 4.3 H Troponin T 5.110 H* 3.960 H* D Total Protein Albumin Triglycerides 188 H LDL Cholesterol Direct 141 H HDL Cholesterol Urine WBC (Auto) Urine Creatinine 03/18/20 03/19/20 03/19/20 22:21 01:57 08:08 WBC RBC Hgb Hct MCV MCHC RDW Lymph % (Auto) Patrick % (Auto) Lymph # Patrick # Seg Neutrophils % Seg Neuts % (Manual) Lymphocytes % (Manual) Nucleated RBC % Seg Neutrophils # Seg Neutrophils # Man Lymphocytes # (Manual) Monocytes # (Manual) Eosinophils # (Manual) PT INR Heparin Anti-Xa Level ABG pH ABG pO2 ABG HCO3 ABG O2 Saturation ABG Base Excess ABG Hemoglobin Oxyhemoglobin Sodium Potassium Chloride Carbon Dioxide BUN Creatinine Glucose POC Glucose 317 H Hemoglobin A1c 11.0 H Calcium Phosphorus Magnesium Ferritin AST ALT Alkaline Phosphatase Total Creatine Kinase 7255 H CK-MB (CK-2) 79.3 H CK-MB (CK-2) Rel Index Troponin T 5.540 H* D Total Protein Albumin Triglycerides LDL Cholesterol Direct HDL Cholesterol Urine WBC (Auto) Urine Creatinine 03/19/20 03/19/20 03/19/20 08:08 08:08 08:08 WBC 13.3 H RBC Hgb Hct MCV MCHC RDW Lymph % (Auto) 10.7 L Patrick % (Auto) 8.5 H Lymph # Patrick # 1.1 H Seg Neutrophils % 80.0 H Seg Neuts % (Manual) Lymphocytes % (Manual) Nucleated RBC % Seg Neutrophils # 10.6 H Seg Neutrophils # Man Lymphocytes # (Manual) Monocytes # (Manual) Eosinophils # (Manual) PT INR Heparin Anti-Xa Level 0.10 L ABG pH ABG pO2 ABG HCO3 ABG O2 Saturation ABG Base Excess ABG Hemoglobin Oxyhemoglobin Sodium 133 L Potassium 5.1 H Chloride Carbon Dioxide 17 L BUN 23 H Creatinine Glucose 313 H POC Glucose Hemoglobin A1c Calcium Phosphorus Magnesium Ferritin AST ALT Alkaline Phosphatase Total Creatine Kinase CK-MB (CK-2) CK-MB (CK-2) Rel Index Troponin T Total Protein Albumin Triglycerides LDL Cholesterol Direct HDL Cholesterol Urine WBC (Auto) Urine Creatinine 03/19/20 03/19/20 03/19/20 15:40 18:23 21:32 WBC RBC Hgb Hct MCV MCHC RDW Lymph % (Auto) Patrick % (Auto) Lymph # Patrick # Seg Neutrophils % Seg Neuts % (Manual) Lymphocytes % (Manual) Nucleated RBC % Seg Neutrophils # Seg Neutrophils # Man Lymphocytes # (Manual) Monocytes # (Manual) Eosinophils # (Manual) PT INR Heparin Anti-Xa Level < 0.10 L ABG pH ABG pO2 ABG HCO3 18.3 L ABG O2 Saturation ABG Base Excess -5.4 L ABG Hemoglobin 12.2 L Oxyhemoglobin 94.6 L Sodium Potassium Chloride Carbon Dioxide BUN Creatinine Glucose POC Glucose 348 H Hemoglobin A1c Calcium Phosphorus Magnesium Ferritin AST ALT Alkaline Phosphatase Total Creatine Kinase CK-MB (CK-2) CK-MB (CK-2) Rel Index Troponin T Total Protein Albumin Triglycerides LDL Cholesterol Direct HDL Cholesterol Urine WBC (Auto) Urine Creatinine 03/20/20 03/20/20 03/20/20 04:35 05:12 05:12 WBC 11.1 H RBC 3.63 L Hgb 11.0 L Hct 32.7 L D MCV MCHC RDW Lymph % (Auto) Patrick % (Auto) 8.1 H Lymph # Patrick # 0.9 H Seg Neutrophils % 75.8 H Seg Neuts % (Manual) Lymphocytes % (Manual) Nucleated RBC % Seg Neutrophils # 8.4 H Seg Neutrophils # Man Lymphocytes # (Manual) Monocytes # (Manual) Eosinophils # (Manual) PT INR Heparin Anti-Xa Level 0.28 L ABG pH ABG pO2 68.3 L ABG HCO3 ABG O2 Saturation 94.3 L ABG Base Excess ABG Hemoglobin 7.1 L Oxyhemoglobin 92.3 L Sodium Potassium Chloride Carbon Dioxide BUN Creatinine Glucose POC Glucose Hemoglobin A1c Calcium Phosphorus Magnesium Ferritin AST ALT Alkaline Phosphatase Total Creatine Kinase CK-MB (CK-2) CK-MB (CK-2) Rel Index Troponin T Total Protein Albumin Triglycerides LDL Cholesterol Direct HDL Cholesterol Urine WBC (Auto) Urine Creatinine 03/20/20 03/20/20 03/20/20 05:12 07:49 12:15 WBC RBC Hgb Hct MCV MCHC RDW Lymph % (Auto) Patrick % (Auto) Lymph # Patrick # Seg Neutrophils % Seg Neuts % (Manual) Lymphocytes % (Manual) Nucleated RBC % Seg Neutrophils # Seg Neutrophils # Man Lymphocytes # (Manual) Monocytes # (Manual) Eosinophils # (Manual) PT INR Heparin Anti-Xa Level ABG pH ABG pO2 ABG HCO3 ABG O2 Saturation ABG Base Excess ABG Hemoglobin Oxyhemoglobin Sodium 134 L Potassium Chloride Carbon Dioxide 21 L BUN 23 H Creatinine Glucose 275 H POC Glucose 294 H 357 H Hemoglobin A1c Calcium Phosphorus Magnesium Ferritin AST ALT Alkaline Phosphatase Total Creatine Kinase CK-MB (CK-2) CK-MB (CK-2) Rel Index Troponin T 3.200 H* D Total Protein Albumin Triglycerides LDL Cholesterol Direct HDL Cholesterol Urine WBC (Auto) Urine Creatinine 03/20/20 03/20/20 03/21/20 17:16 22:08 04:44 WBC RBC Hgb Hct MCV MCHC RDW Lymph % (Auto) Patrick % (Auto) Lymph # Patrick # Seg Neutrophils % Seg Neuts % (Manual) Lymphocytes % (Manual) Nucleated RBC % Seg Neutrophils # Seg Neutrophils # Man Lymphocytes # (Manual) Monocytes # (Manual) Eosinophils # (Manual) PT INR Heparin Anti-Xa Level ABG pH ABG pO2 ABG HCO3 ABG O2 Saturation ABG Base Excess ABG Hemoglobin Oxyhemoglobin Sodium 136 L Potassium Chloride Carbon Dioxide 18 L BUN 26 H Creatinine Glucose 266 H POC Glucose 327 H 292 H Hemoglobin A1c Calcium 8.1 L Phosphorus Magnesium Ferritin AST ALT Alkaline Phosphatase Total Creatine Kinase CK-MB (CK-2) CK-MB (CK-2) Rel Index Troponin T Total Protein Albumin Triglycerides LDL Cholesterol Direct HDL Cholesterol Urine WBC (Auto) Urine Creatinine 03/21/20 03/21/20 03/21/20 07:50 12:25 15:53 WBC RBC Hgb Hct MCV MCHC RDW Lymph % (Auto) Patrick % (Auto) Lymph # Patrick # Seg Neutrophils % Seg Neuts % (Manual) Lymphocytes % (Manual) Nucleated RBC % Seg Neutrophils # Seg Neutrophils # Man Lymphocytes # (Manual) Monocytes # (Manual) Eosinophils # (Manual) PT INR Heparin Anti-Xa Level ABG pH ABG pO2 ABG HCO3 ABG O2 Saturation ABG Base Excess ABG Hemoglobin Oxyhemoglobin Sodium Potassium Chloride Carbon Dioxide BUN Creatinine Glucose POC Glucose 271 H 314 H 436 H Hemoglobin A1c Calcium Phosphorus Magnesium Ferritin AST ALT Alkaline Phosphatase Total Creatine Kinase CK-MB (CK-2) CK-MB (CK-2) Rel Index Troponin T Total Protein Albumin Triglycerides LDL Cholesterol Direct HDL Cholesterol Urine WBC (Auto) Urine Creatinine 03/21/20 03/21/20 03/22/20 17:44 21:55 04:33 WBC RBC Hgb 10.0 L Hct 29.4 L MCV MCHC RDW Lymph % (Auto) Patrick % (Auto) Lymph # Patrick # Seg Neutrophils % Seg Neuts % (Manual) Lymphocytes % (Manual) Nucleated RBC % Seg Neutrophils # Seg Neutrophils # Man Lymphocytes # (Manual) Monocytes # (Manual) Eosinophils # (Manual) PT INR Heparin Anti-Xa Level ABG pH ABG pO2 ABG HCO3 ABG O2 Saturation ABG Base Excess ABG Hemoglobin Oxyhemoglobin Sodium Potassium Chloride Carbon Dioxide BUN Creatinine Glucose POC Glucose 362 H 329 H Hemoglobin A1c Calcium Phosphorus Magnesium Ferritin AST ALT Alkaline Phosphatase Total Creatine Kinase CK-MB (CK-2) CK-MB (CK-2) Rel Index Troponin T Total Protein Albumin Triglycerides LDL Cholesterol Direct HDL Cholesterol Urine WBC (Auto) Urine Creatinine 03/22/20 03/22/20 03/22/20 08:57 14:12 19:57 WBC RBC Hgb Hct MCV MCHC RDW Lymph % (Auto) Patrick % (Auto) Lymph # Patrick # Seg Neutrophils % Seg Neuts % (Manual) Lymphocytes % (Manual) Nucleated RBC % Seg Neutrophils # Seg Neutrophils # Man Lymphocytes # (Manual) Monocytes # (Manual) Eosinophils # (Manual) PT INR Heparin Anti-Xa Level ABG pH ABG pO2 ABG HCO3 ABG O2 Saturation ABG Base Excess ABG Hemoglobin Oxyhemoglobin Sodium Potassium Chloride Carbon Dioxide BUN Creatinine Glucose POC Glucose 284 H 319 H 356 H Hemoglobin A1c Calcium Phosphorus Magnesium Ferritin AST ALT Alkaline Phosphatase Total Creatine Kinase CK-MB (CK-2) CK-MB (CK-2) Rel Index Troponin T Total Protein Albumin Triglycerides LDL Cholesterol Direct HDL Cholesterol Urine WBC (Auto) Urine Creatinine 03/22/20 03/23/20 03/23/20 21:44 08:18 12:46 WBC RBC Hgb Hct MCV MCHC RDW Lymph % (Auto) Patrick % (Auto) Lymph # Patrick # Seg Neutrophils % Seg Neuts % (Manual) Lymphocytes % (Manual) Nucleated RBC % Seg Neutrophils # Seg Neutrophils # Man Lymphocytes # (Manual) Monocytes # (Manual) Eosinophils # (Manual) PT INR Heparin Anti-Xa Level ABG pH ABG pO2 ABG HCO3 ABG O2 Saturation ABG Base Excess ABG Hemoglobin Oxyhemoglobin Sodium Potassium Chloride Carbon Dioxide BUN Creatinine Glucose POC Glucose 336 H 215 H 262 H Hemoglobin A1c Calcium Phosphorus Magnesium Ferritin AST ALT Alkaline Phosphatase Total Creatine Kinase CK-MB (CK-2) CK-MB (CK-2) Rel Index Troponin T Total Protein Albumin Triglycerides LDL Cholesterol Direct HDL Cholesterol Urine WBC (Auto) Urine Creatinine 03/23/20 03/23/20 03/24/20 15:56 22:05 02:35 WBC RBC Hgb 9.0 L Hct 25.8 L MCV MCHC RDW Lymph % (Auto) Patrick % (Auto) Lymph # Patrick # Seg Neutrophils % Seg Neuts % (Manual) Lymphocytes % (Manual) Nucleated RBC % Seg Neutrophils # Seg Neutrophils # Man Lymphocytes # (Manual) Monocytes # (Manual) Eosinophils # (Manual) PT INR Heparin Anti-Xa Level ABG pH ABG pO2 ABG HCO3 ABG O2 Saturation ABG Base Excess ABG Hemoglobin Oxyhemoglobin Sodium Potassium Chloride Carbon Dioxide BUN Creatinine Glucose POC Glucose 246 H 322 H Hemoglobin A1c Calcium Phosphorus Magnesium Ferritin AST ALT Alkaline Phosphatase Total Creatine Kinase CK-MB (CK-2) CK-MB (CK-2) Rel Index Troponin T Total Protein Albumin Triglycerides LDL Cholesterol Direct HDL Cholesterol Urine WBC (Auto) Urine Creatinine 03/24/20 03/24/20 03/24/20 07:38 11:45 16:02 WBC RBC Hgb Hct MCV MCHC RDW Lymph % (Auto) Patrick % (Auto) Lymph # Patrick # Seg Neutrophils % Seg Neuts % (Manual) Lymphocytes % (Manual) Nucleated RBC % Seg Neutrophils # Seg Neutrophils # Man Lymphocytes # (Manual) Monocytes # (Manual) Eosinophils # (Manual) PT INR Heparin Anti-Xa Level ABG pH ABG pO2 ABG HCO3 ABG O2 Saturation ABG Base Excess ABG Hemoglobin Oxyhemoglobin Sodium Potassium Chloride Carbon Dioxide BUN Creatinine Glucose POC Glucose 289 H 257 H 150 H Hemoglobin A1c Calcium Phosphorus Magnesium Ferritin AST ALT Alkaline Phosphatase Total Creatine Kinase CK-MB (CK-2) CK-MB (CK-2) Rel Index Troponin T Total Protein Albumin Triglycerides LDL Cholesterol Direct HDL Cholesterol Urine WBC (Auto) Urine Creatinine 03/24/20 03/25/20 03/25/20 21:24 04:06 07:39 WBC RBC Hgb Hct MCV MCHC RDW Lymph % (Auto) Patrick % (Auto) Lymph # Patrick # Seg Neutrophils % Seg Neuts % (Manual) Lymphocytes % (Manual) Nucleated RBC % Seg Neutrophils # Seg Neutrophils # Man Lymphocytes # (Manual) Monocytes # (Manual) Eosinophils # (Manual) PT INR Heparin Anti-Xa Level 0.10 L ABG pH ABG pO2 ABG HCO3 ABG O2 Saturation ABG Base Excess ABG Hemoglobin Oxyhemoglobin Sodium Potassium Chloride Carbon Dioxide BUN Creatinine Glucose POC Glucose 228 H 332 H Hemoglobin A1c Calcium Phosphorus Magnesium Ferritin AST ALT Alkaline Phosphatase Total Creatine Kinase CK-MB (CK-2) CK-MB (CK-2) Rel Index Troponin T Total Protein Albumin Triglycerides LDL Cholesterol Direct HDL Cholesterol Urine WBC (Auto) Urine Creatinine 03/25/20 03/25/20 03/25/20 08:13 09:30 11:59 WBC 13.1 H RBC 2.82 L Hgb 8.5 L Hct 26.1 L MCV MCHC RDW Lymph % (Auto) Patrick % (Auto) Lymph # Patrick # Seg Neutrophils % Seg Neuts % (Manual) Lymphocytes % (Manual) Nucleated RBC % Seg Neutrophils # Seg Neutrophils # Man Lymphocytes # (Manual) Monocytes # (Manual) Eosinophils # (Manual) PT INR Heparin Anti-Xa Level ABG pH ABG pO2 ABG HCO3 ABG O2 Saturation ABG Base Excess ABG Hemoglobin Oxyhemoglobin Sodium 131 L Potassium 5.3 H Chloride Carbon Dioxide 20 L BUN 39 H Creatinine 1.4 H Glucose 313 H POC Glucose 273 H Hemoglobin A1c Calcium 8.1 L Phosphorus Magnesium Ferritin AST ALT Alkaline Phosphatase Total Creatine Kinase CK-MB (CK-2) CK-MB (CK-2) Rel Index Troponin T Total Protein Albumin Triglycerides LDL Cholesterol Direct HDL Cholesterol Urine WBC (Auto) Urine Creatinine 03/25/20 03/25/20 03/25/20 13:54 15:58 18:21 WBC RBC Hgb Hct MCV MCHC RDW Lymph % (Auto) Patrick % (Auto) Lymph # Patrick # Seg Neutrophils % Seg Neuts % (Manual) Lymphocytes % (Manual) Nucleated RBC % Seg Neutrophils # Seg Neutrophils # Man Lymphocytes # (Manual) Monocytes # (Manual) Eosinophils # (Manual) PT INR Heparin Anti-Xa Level ABG pH ABG pO2 ABG HCO3 ABG O2 Saturation ABG Base Excess ABG Hemoglobin Oxyhemoglobin Sodium Potassium Chloride Carbon Dioxide BUN Creatinine Glucose POC Glucose 246 H 235 H 185 H Hemoglobin A1c Calcium Phosphorus Magnesium Ferritin AST ALT Alkaline Phosphatase Total Creatine Kinase CK-MB (CK-2) CK-MB (CK-2) Rel Index Troponin T Total Protein Albumin Triglycerides LDL Cholesterol Direct HDL Cholesterol Urine WBC (Auto) Urine Creatinine 03/25/20 03/26/20 03/26/20 20:45 05:15 06:59 WBC 17.4 H 15.6 H RBC 3.05 L 3.05 L Hgb 9.1 L 9.2 L Hct 28.2 L 27.9 L MCV MCHC RDW Lymph % (Auto) 8.9 L 8.9 L Patrick % (Auto) Lymph # Patrick # 1.0 H Seg Neutrophils % 84.4 H 84.8 H Seg Neuts % (Manual) Lymphocytes % (Manual) Nucleated RBC % Seg Neutrophils # 14.7 H 13.2 H Seg Neutrophils # Man Lymphocytes # (Manual) Monocytes # (Manual) Eosinophils # (Manual) PT INR Heparin Anti-Xa Level ABG pH ABG pO2 ABG HCO3 ABG O2 Saturation ABG Base Excess ABG Hemoglobin Oxyhemoglobin Sodium Potassium Chloride Carbon Dioxide BUN Creatinine Glucose POC Glucose 178 H Hemoglobin A1c Calcium Phosphorus Magnesium Ferritin AST ALT Alkaline Phosphatase Total Creatine Kinase CK-MB (CK-2) CK-MB (CK-2) Rel Index Troponin T Total Protein Albumin Triglycerides LDL Cholesterol Direct HDL Cholesterol Urine WBC (Auto) Urine Creatinine 03/26/20 03/26/20 03/26/20 06:59 07:43 11:56 WBC RBC Hgb Hct MCV MCHC RDW Lymph % (Auto) Patrick % (Auto) Lymph # Patrick # Seg Neutrophils % Seg Neuts % (Manual) Lymphocytes % (Manual) Nucleated RBC % Seg Neutrophils # Seg Neutrophils # Man Lymphocytes # (Manual) Monocytes # (Manual) Eosinophils # (Manual) PT INR Heparin Anti-Xa Level ABG pH ABG pO2 ABG HCO3 ABG O2 Saturation ABG Base Excess ABG Hemoglobin Oxyhemoglobin Sodium 131 L Potassium 5.8 H Chloride Carbon Dioxide 16 L BUN 42 H Creatinine 1.4 H Glucose 163 H POC Glucose 170 H 198 H Hemoglobin A1c Calcium 8.0 L Phosphorus Magnesium Ferritin AST ALT Alkaline Phosphatase Total Creatine Kinase CK-MB (CK-2) CK-MB (CK-2) Rel Index Troponin T Total Protein Albumin Triglycerides LDL Cholesterol Direct HDL Cholesterol Urine WBC (Auto) Urine Creatinine 03/26/20 03/26/20 03/26/20 13:58 16:16 21:00 WBC RBC Hgb Hct MCV MCHC RDW Lymph % (Auto) Patrick % (Auto) Lymph # Patrick # Seg Neutrophils % Seg Neuts % (Manual) Lymphocytes % (Manual) Nucleated RBC % Seg Neutrophils # Seg Neutrophils # Man Lymphocytes # (Manual) Monocytes # (Manual) Eosinophils # (Manual) PT INR Heparin Anti-Xa Level ABG pH ABG pO2 ABG HCO3 ABG O2 Saturation ABG Base Excess ABG Hemoglobin Oxyhemoglobin Sodium 128 L Potassium 6.0 H Chloride Carbon Dioxide 15 L BUN 45 H Creatinine 1.4 H Glucose 190 H POC Glucose 184 H 192 H Hemoglobin A1c Calcium 8.2 L Phosphorus Magnesium Ferritin AST ALT Alkaline Phosphatase Total Creatine Kinase CK-MB (CK-2) CK-MB (CK-2) Rel Index Troponin T Total Protein Albumin Triglycerides LDL Cholesterol Direct HDL Cholesterol Urine WBC (Auto) Urine Creatinine 03/27/20 03/27/20 03/27/20 08:32 11:51 14:39 WBC 22.9 H RBC 2.68 L Hgb 7.9 L Hct 24.7 L MCV MCHC RDW Lymph % (Auto) Patrick % (Auto) Lymph # Patrick # Seg Neutrophils % Seg Neuts % (Manual) Lymphocytes % (Manual) Nucleated RBC % Seg Neutrophils # Seg Neutrophils # Man Lymphocytes # (Manual) Monocytes # (Manual) Eosinophils # (Manual) PT INR Heparin Anti-Xa Level ABG pH ABG pO2 ABG HCO3 ABG O2 Saturation ABG Base Excess ABG Hemoglobin Oxyhemoglobin Sodium Potassium Chloride Carbon Dioxide BUN Creatinine Glucose POC Glucose 233 H 252 H Hemoglobin A1c Calcium Phosphorus Magnesium Ferritin AST ALT Alkaline Phosphatase Total Creatine Kinase CK-MB (CK-2) CK-MB (CK-2) Rel Index Troponin T Total Protein Albumin Triglycerides LDL Cholesterol Direct HDL Cholesterol Urine WBC (Auto) Urine Creatinine 03/27/20 03/27/20 03/27/20 14:39 15:19 21:35 WBC RBC Hgb Hct MCV MCHC RDW Lymph % (Auto) Patrick % (Auto) Lymph # Patrick # Seg Neutrophils % Seg Neuts % (Manual) Lymphocytes % (Manual) Nucleated RBC % Seg Neutrophils # Seg Neutrophils # Man Lymphocytes # (Manual) Monocytes # (Manual) Eosinophils # (Manual) PT INR Heparin Anti-Xa Level ABG pH ABG pO2 ABG HCO3 ABG O2 Saturation ABG Base Excess ABG Hemoglobin Oxyhemoglobin Sodium 133 L Potassium 5.5 H Chloride Carbon Dioxide 16 L BUN 46 H Creatinine 1.4 H Glucose 225 H POC Glucose 239 H 202 H Hemoglobin A1c Calcium 8.2 L Phosphorus Magnesium Ferritin AST ALT Alkaline Phosphatase Total Creatine Kinase CK-MB (CK-2) CK-MB (CK-2) Rel Index Troponin T Total Protein Albumin Triglycerides LDL Cholesterol Direct HDL Cholesterol Urine WBC (Auto) Urine Creatinine 03/28/20 03/28/20 03/28/20 07:39 07:39 08:36 WBC 22.4 H RBC 2.71 L Hgb 7.9 L Hct 24.5 L MCV MCHC RDW Lymph % (Auto) Patrick % (Auto) Lymph # Patrick # Seg Neutrophils % Seg Neuts % (Manual) 88.0 H Lymphocytes % (Manual) 5.0 L Nucleated RBC % Seg Neutrophils # Seg Neutrophils # Man 19.7 H Lymphocytes # (Manual) 1.1 L Monocytes # (Manual) 1.6 H Eosinophils # (Manual) PT INR Heparin Anti-Xa Level ABG pH ABG pO2 ABG HCO3 ABG O2 Saturation ABG Base Excess ABG Hemoglobin Oxyhemoglobin Sodium 134 L Potassium Chloride Carbon Dioxide 19 L BUN 47 H Creatinine Glucose 240 H POC Glucose 253 H Hemoglobin A1c Calcium 7.8 L Phosphorus Magnesium Ferritin AST ALT Alkaline Phosphatase Total Creatine Kinase CK-MB (CK-2) CK-MB (CK-2) Rel Index Troponin T Total Protein Albumin Triglycerides LDL Cholesterol Direct HDL Cholesterol Urine WBC (Auto) Urine Creatinine 03/28/20 03/28/20 03/28/20 11:54 17:08 21:17 WBC RBC Hgb Hct MCV MCHC RDW Lymph % (Auto) Patrick % (Auto) Lymph # Patrick # Seg Neutrophils % Seg Neuts % (Manual) Lymphocytes % (Manual) Nucleated RBC % Seg Neutrophils # Seg Neutrophils # Man Lymphocytes # (Manual) Monocytes # (Manual) Eosinophils # (Manual) PT INR Heparin Anti-Xa Level ABG pH ABG pO2 ABG HCO3 ABG O2 Saturation ABG Base Excess ABG Hemoglobin Oxyhemoglobin Sodium Potassium Chloride Carbon Dioxide BUN Creatinine Glucose POC Glucose 306 H 178 H 186 H Hemoglobin A1c Calcium Phosphorus Magnesium Ferritin AST ALT Alkaline Phosphatase Total Creatine Kinase CK-MB (CK-2) CK-MB (CK-2) Rel Index Troponin T Total Protein Albumin Triglycerides LDL Cholesterol Direct HDL Cholesterol Urine WBC (Auto) Urine Creatinine 03/29/20 03/29/20 03/29/20 08:32 12:04 14:19 WBC 21.5 H RBC 2.82 L Hgb 8.4 L Hct 26.1 L MCV MCHC RDW Lymph % (Auto) Patrick % (Auto) Lymph # Patrick # Seg Neutrophils % Seg Neuts % (Manual) 85.0 H Lymphocytes % (Manual) 11.0 L Nucleated RBC % 3.0 H Seg Neutrophils # Seg Neutrophils # Man 18.3 H Lymphocytes # (Manual) Monocytes # (Manual) Eosinophils # (Manual) 0.6 H PT INR Heparin Anti-Xa Level ABG pH ABG pO2 ABG HCO3 ABG O2 Saturation ABG Base Excess ABG Hemoglobin Oxyhemoglobin Sodium Potassium Chloride Carbon Dioxide BUN Creatinine Glucose POC Glucose 110 H 263 H Hemoglobin A1c Calcium Phosphorus Magnesium Ferritin AST ALT Alkaline Phosphatase Total Creatine Kinase CK-MB (CK-2) CK-MB (CK-2) Rel Index Troponin T Total Protein Albumin Triglycerides LDL Cholesterol Direct HDL Cholesterol Urine WBC (Auto) Urine Creatinine 03/29/20 03/29/20 03/30/20 16:17 22:57 11:00 WBC RBC Hgb Hct MCV MCHC RDW Lymph % (Auto) Patrick % (Auto) Lymph # Patrick # Seg Neutrophils % Seg Neuts % (Manual) Lymphocytes % (Manual) Nucleated RBC % Seg Neutrophils # Seg Neutrophils # Man Lymphocytes # (Manual) Monocytes # (Manual) Eosinophils # (Manual) PT INR Heparin Anti-Xa Level ABG pH ABG pO2 ABG HCO3 ABG O2 Saturation ABG Base Excess ABG Hemoglobin Oxyhemoglobin Sodium Potassium Chloride Carbon Dioxide BUN Creatinine Glucose POC Glucose 109 H 194 H 129 H Hemoglobin A1c Calcium Phosphorus Magnesium Ferritin AST ALT Alkaline Phosphatase Total Creatine Kinase CK-MB (CK-2) CK-MB (CK-2) Rel Index Troponin T Total Protein Albumin Triglycerides LDL Cholesterol Direct HDL Cholesterol Urine WBC (Auto) Urine Creatinine 03/30/20 03/30/20 03/31/20 15:16 21:54 04:27 WBC 15.8 H RBC 2.62 L Hgb 7.7 L Hct 24.1 L MCV MCHC RDW Lymph % (Auto) 9.4 L Patrick % (Auto) Lymph # Patrick # Seg Neutrophils % 84.4 H Seg Neuts % (Manual) Lymphocytes % (Manual) Nucleated RBC % Seg Neutrophils # 13.3 H Seg Neutrophils # Man Lymphocytes # (Manual) Monocytes # (Manual) Eosinophils # (Manual) PT INR Heparin Anti-Xa Level ABG pH ABG pO2 ABG HCO3 ABG O2 Saturation ABG Base Excess ABG Hemoglobin Oxyhemoglobin Sodium Potassium Chloride Carbon Dioxide BUN Creatinine Glucose POC Glucose 115 H 166 H Hemoglobin A1c Calcium Phosphorus Magnesium Ferritin AST ALT Alkaline Phosphatase Total Creatine Kinase CK-MB (CK-2) CK-MB (CK-2) Rel Index Troponin T Total Protein Albumin Triglycerides LDL Cholesterol Direct HDL Cholesterol Urine WBC (Auto) Urine Creatinine 03/31/20 03/31/20 03/31/20 04:27 07:37 11:46 WBC RBC Hgb Hct MCV MCHC RDW Lymph % (Auto) Patrick % (Auto) Lymph # Patrick # Seg Neutrophils % Seg Neuts % (Manual) Lymphocytes % (Manual) Nucleated RBC % Seg Neutrophils # Seg Neutrophils # Man Lymphocytes # (Manual) Monocytes # (Manual) Eosinophils # (Manual) PT INR Heparin Anti-Xa Level ABG pH ABG pO2 ABG HCO3 ABG O2 Saturation ABG Base Excess ABG Hemoglobin Oxyhemoglobin Sodium 133 L Potassium Chloride 96.6 L Carbon Dioxide 18 L BUN 75 H Creatinine 2.5 H D Glucose 129 H POC Glucose 156 H 224 H Hemoglobin A1c Calcium 8.0 L Phosphorus Magnesium Ferritin AST ALT Alkaline Phosphatase Total Creatine Kinase CK-MB (CK-2) CK-MB (CK-2) Rel Index Troponin T Total Protein Albumin Triglycerides LDL Cholesterol Direct HDL Cholesterol Urine WBC (Auto) Urine Creatinine 04/01/20 04/01/20 04/01/20 08:34 10:52 10:52 WBC 12.9 H RBC 2.75 L Hgb 8.2 L Hct 24.8 L MCV MCHC RDW Lymph % (Auto) 10.6 L Patrick % (Auto) Lymph # Patrick # Seg Neutrophils % 83.7 H Seg Neuts % (Manual) Lymphocytes % (Manual) Nucleated RBC % Seg Neutrophils # 10.8 H Seg Neutrophils # Man Lymphocytes # (Manual) Monocytes # (Manual) Eosinophils # (Manual) PT INR Heparin Anti-Xa Level ABG pH ABG pO2 ABG HCO3 ABG O2 Saturation ABG Base Excess ABG Hemoglobin Oxyhemoglobin Sodium 131 L Potassium Chloride 96.1 L Carbon Dioxide 17 L BUN 77 H Creatinine 2.3 H Glucose 205 H POC Glucose 110 H Hemoglobin A1c Calcium 7.9 L Phosphorus Magnesium Ferritin AST ALT Alkaline Phosphatase Total Creatine Kinase CK-MB (CK-2) CK-MB (CK-2) Rel Index Troponin T Total Protein Albumin Triglycerides LDL Cholesterol Direct HDL Cholesterol Urine WBC (Auto) Urine Creatinine 04/01/20 04/01/20 04/01/20 12:15 17:22 20:47 WBC RBC Hgb Hct MCV MCHC RDW Lymph % (Auto) Patrick % (Auto) Lymph # Patrick # Seg Neutrophils % Seg Neuts % (Manual) Lymphocytes % (Manual) Nucleated RBC % Seg Neutrophils # Seg Neutrophils # Man Lymphocytes # (Manual) Monocytes # (Manual) Eosinophils # (Manual) PT INR Heparin Anti-Xa Level ABG pH ABG pO2 ABG HCO3 ABG O2 Saturation ABG Base Excess ABG Hemoglobin Oxyhemoglobin Sodium Potassium Chloride Carbon Dioxide BUN Creatinine Glucose POC Glucose 201 H 219 H 156 H Hemoglobin A1c Calcium Phosphorus Magnesium Ferritin AST ALT Alkaline Phosphatase Total Creatine Kinase CK-MB (CK-2) CK-MB (CK-2) Rel Index Troponin T Total Protein Albumin Triglycerides LDL Cholesterol Direct HDL Cholesterol Urine WBC (Auto) Urine Creatinine 04/02/20 04/02/20 04/02/20 05:44 05:44 11:32 WBC 15.8 H RBC 2.81 L Hgb 8.2 L Hct 25.7 L MCV MCHC RDW Lymph % (Auto) Patrick % (Auto) Lymph # Patrick # 0.9 H Seg Neutrophils % 77.7 H Seg Neuts % (Manual) Lymphocytes % (Manual) Nucleated RBC % Seg Neutrophils # 12.3 H Seg Neutrophils # Man Lymphocytes # (Manual) Monocytes # (Manual) Eosinophils # (Manual) PT INR Heparin Anti-Xa Level ABG pH ABG pO2 ABG HCO3 ABG O2 Saturation ABG Base Excess ABG Hemoglobin Oxyhemoglobin Sodium 134 L Potassium Chloride Carbon Dioxide 19 L BUN 76 H Creatinine 2.0 H Glucose POC Glucose 116 H Hemoglobin A1c Calcium 8.0 L Phosphorus Magnesium Ferritin AST 291 H ALT 169 H Alkaline Phosphatase 256 H Total Creatine Kinase CK-MB (CK-2) CK-MB (CK-2) Rel Index Troponin T Total Protein 6.1 L Albumin 2.2 L Triglycerides LDL Cholesterol Direct HDL Cholesterol Urine WBC (Auto) Urine Creatinine 04/02/20 04/02/20 04/03/20 16:56 22:03 08:13 WBC RBC Hgb Hct MCV MCHC RDW Lymph % (Auto) Patrick % (Auto) Lymph # Patrick # Seg Neutrophils % Seg Neuts % (Manual) Lymphocytes % (Manual) Nucleated RBC % Seg Neutrophils # Seg Neutrophils # Man Lymphocytes # (Manual) Monocytes # (Manual) Eosinophils # (Manual) PT INR Heparin Anti-Xa Level ABG pH ABG pO2 ABG HCO3 ABG O2 Saturation ABG Base Excess ABG Hemoglobin Oxyhemoglobin Sodium Potassium Chloride Carbon Dioxide BUN Creatinine Glucose POC Glucose 141 H 152 H 126 H Hemoglobin A1c Calcium Phosphorus Magnesium Ferritin AST ALT Alkaline Phosphatase Total Creatine Kinase CK-MB (CK-2) CK-MB (CK-2) Rel Index Troponin T Total Protein Albumin Triglycerides LDL Cholesterol Direct HDL Cholesterol Urine WBC (Auto) Urine Creatinine 04/03/20 04/03/20 04/03/20 12:11 16:26 21:33 WBC RBC Hgb Hct MCV MCHC RDW Lymph % (Auto) Patrick % (Auto) Lymph # Patrick # Seg Neutrophils % Seg Neuts % (Manual) Lymphocytes % (Manual) Nucleated RBC % Seg Neutrophils # Seg Neutrophils # Man Lymphocytes # (Manual) Monocytes # (Manual) Eosinophils # (Manual) PT INR Heparin Anti-Xa Level ABG pH ABG pO2 ABG HCO3 ABG O2 Saturation ABG Base Excess ABG Hemoglobin Oxyhemoglobin Sodium Potassium Chloride Carbon Dioxide BUN Creatinine Glucose POC Glucose 139 H 164 H 147 H Hemoglobin A1c Calcium Phosphorus Magnesium Ferritin AST ALT Alkaline Phosphatase Total Creatine Kinase CK-MB (CK-2) CK-MB (CK-2) Rel Index Troponin T Total Protein Albumin Triglycerides LDL Cholesterol Direct HDL Cholesterol Urine WBC (Auto) Urine Creatinine 04/04/20 04/04/20 04/04/20 04:29 04:29 11:29 WBC 12.3 H RBC 2.88 L Hgb 8.4 L Hct 26.1 L MCV MCHC RDW Lymph % (Auto) Patrick % (Auto) Lymph # Patrick # Seg Neutrophils % 75.4 H Seg Neuts % (Manual) Lymphocytes % (Manual) Nucleated RBC % Seg Neutrophils # 9.3 H Seg Neutrophils # Man Lymphocytes # (Manual) Monocytes # (Manual) Eosinophils # (Manual) PT INR Heparin Anti-Xa Level ABG pH ABG pO2 ABG HCO3 ABG O2 Saturation ABG Base Excess ABG Hemoglobin Oxyhemoglobin Sodium 136 L Potassium Chloride Carbon Dioxide 19 L BUN 71 H Creatinine 1.7 H Glucose POC Glucose 108 H Hemoglobin A1c Calcium 8.0 L Phosphorus Magnesium Ferritin AST 673 H ALT 252 H Alkaline Phosphatase 311 H Total Creatine Kinase CK-MB (CK-2) CK-MB (CK-2) Rel Index Troponin T Total Protein Albumin 2.2 L Triglycerides LDL Cholesterol Direct HDL Cholesterol Urine WBC (Auto) Urine Creatinine 04/04/20 04/04/20 04/05/20 16:34 20:58 03:54 WBC 13.7 H RBC 3.03 L Hgb 8.7 L Hct 27.9 L MCV MCHC 31 L RDW 15.5 H Lymph % (Auto) Patrick % (Auto) Lymph # Patrick # Seg Neutrophils % 78.9 H Seg Neuts % (Manual) Lymphocytes % (Manual) Nucleated RBC % Seg Neutrophils # 10.8 H Seg Neutrophils # Man Lymphocytes # (Manual) Monocytes # (Manual) Eosinophils # (Manual) PT INR Heparin Anti-Xa Level ABG pH ABG pO2 ABG HCO3 ABG O2 Saturation ABG Base Excess ABG Hemoglobin Oxyhemoglobin Sodium Potassium Chloride Carbon Dioxide BUN Creatinine Glucose POC Glucose 151 H 131 H Hemoglobin A1c Calcium Phosphorus Magnesium Ferritin AST ALT Alkaline Phosphatase Total Creatine Kinase CK-MB (CK-2) CK-MB (CK-2) Rel Index Troponin T Total Protein Albumin Triglycerides LDL Cholesterol Direct HDL Cholesterol Urine WBC (Auto) Urine Creatinine 04/05/20 04/05/20 04/05/20 03:54 15:58 15:58 WBC RBC Hgb Hct MCV MCHC RDW Lymph % (Auto) Patrick % (Auto) Lymph # Patrick # Seg Neutrophils % Seg Neuts % (Manual) Lymphocytes % (Manual) Nucleated RBC % Seg Neutrophils # Seg Neutrophils # Man Lymphocytes # (Manual) Monocytes # (Manual) Eosinophils # (Manual) PT INR Heparin Anti-Xa Level ABG pH ABG pO2 67.1 L ABG HCO3 26.1 H ABG O2 Saturation 93.4 L ABG Base Excess ABG Hemoglobin 9.0 L Oxyhemoglobin 91.6 L Sodium 136 L Potassium 5.5 H Chloride Carbon Dioxide 21 L BUN 79 H Creatinine 1.9 H Glucose 63 L POC Glucose 129 H Hemoglobin A1c Calcium 8.2 L Phosphorus Magnesium Ferritin AST 696 H ALT 262 H Alkaline Phosphatase 325 H Total Creatine Kinase CK-MB (CK-2) CK-MB (CK-2) Rel Index Troponin T Total Protein Albumin 2.3 L Triglycerides LDL Cholesterol Direct HDL Cholesterol Urine WBC (Auto) Urine Creatinine 04/05/20 04/06/20 04/06/20 22:33 07:14 07:14 WBC RBC Hgb Hct MCV MCHC RDW Lymph % (Auto) Patrick % (Auto) Lymph # Patrick # Seg Neutrophils % Seg Neuts % (Manual) Lymphocytes % (Manual) Nucleated RBC % Seg Neutrophils # Seg Neutrophils # Man Lymphocytes # (Manual) Monocytes # (Manual) Eosinophils # (Manual) PT INR Heparin Anti-Xa Level ABG pH ABG pO2 ABG HCO3 ABG O2 Saturation ABG Base Excess ABG Hemoglobin Oxyhemoglobin Sodium Potassium 5.6 H Chloride Carbon Dioxide BUN 83 H Creatinine 1.9 H Glucose 202 H POC Glucose 253 H Hemoglobin A1c Calcium Phosphorus Magnesium Ferritin 444.2 H AST 469 H ALT 237 H Alkaline Phosphatase 332 H Total Creatine Kinase CK-MB (CK-2) CK-MB (CK-2) Rel Index Troponin T Total Protein Albumin 2.2 L Triglycerides LDL Cholesterol Direct HDL Cholesterol Urine WBC (Auto) Urine Creatinine 04/06/20 04/06/20 04/06/20 08:23 12:00 13:56 WBC RBC Hgb Hct MCV MCHC RDW Lymph % (Auto) Patrick % (Auto) Lymph # Patrick # Seg Neutrophils % Seg Neuts % (Manual) Lymphocytes % (Manual) Nucleated RBC % Seg Neutrophils # Seg Neutrophils # Man Lymphocytes # (Manual) Monocytes # (Manual) Eosinophils # (Manual) PT 27.0 H INR 2.44 H Heparin Anti-Xa Level ABG pH ABG pO2 ABG HCO3 ABG O2 Saturation ABG Base Excess ABG Hemoglobin Oxyhemoglobin Sodium Potassium Chloride Carbon Dioxide BUN Creatinine Glucose POC Glucose 226 H 176 H Hemoglobin A1c Calcium Phosphorus Magnesium Ferritin AST ALT Alkaline Phosphatase Total Creatine Kinase CK-MB (CK-2) CK-MB (CK-2) Rel Index Troponin T Total Protein Albumin Triglycerides LDL Cholesterol Direct HDL Cholesterol Urine WBC (Auto) Urine Creatinine 04/06/20 04/07/20 04/07/20 20:45 04:58 04:58 WBC RBC Hgb Hct MCV MCHC RDW Lymph % (Auto) Patrick % (Auto) Lymph # Patrick # Seg Neutrophils % Seg Neuts % (Manual) Lymphocytes % (Manual) Nucleated RBC % Seg Neutrophils # Seg Neutrophils # Man Lymphocytes # (Manual) Monocytes # (Manual) Eosinophils # (Manual) PT 30.9 H INR 2.89 H Heparin Anti-Xa Level ABG pH ABG pO2 ABG HCO3 ABG O2 Saturation ABG Base Excess ABG Hemoglobin Oxyhemoglobin Sodium Potassium 6.0 H Chloride Carbon Dioxide BUN 85 H Creatinine 2.1 H Glucose 177 H POC Glucose 139 H Hemoglobin A1c Calcium Phosphorus Magnesium Ferritin AST 351 H ALT 215 H Alkaline Phosphatase 332 H Total Creatine Kinase CK-MB (CK-2) CK-MB (CK-2) Rel Index Troponin T Total Protein Albumin 2.7 L Triglycerides LDL Cholesterol Direct HDL Cholesterol Urine WBC (Auto) Urine Creatinine 04/07/20 04/07/20 04/08/20 07:53 11:51 04:44 WBC 11.7 H RBC 3.07 L Hgb 9.1 L Hct 28.9 L MCV MCHC RDW 16.8 H Lymph % (Auto) 12.4 L Patrick % (Auto) Lymph # Patrick # Seg Neutrophils % 83.3 H Seg Neuts % (Manual) Lymphocytes % (Manual) Nucleated RBC % Seg Neutrophils # 9.7 H Seg Neutrophils # Man Lymphocytes # (Manual) Monocytes # (Manual) Eosinophils # (Manual) PT INR Heparin Anti-Xa Level ABG pH ABG pO2 ABG HCO3 ABG O2 Saturation ABG Base Excess ABG Hemoglobin Oxyhemoglobin Sodium Potassium Chloride Carbon Dioxide BUN Creatinine Glucose POC Glucose 167 H 120 H Hemoglobin A1c Calcium Phosphorus Magnesium Ferritin AST ALT Alkaline Phosphatase Total Creatine Kinase CK-MB (CK-2) CK-MB (CK-2) Rel Index Troponin T Total Protein Albumin Triglycerides LDL Cholesterol Direct HDL Cholesterol Urine WBC (Auto) Urine Creatinine 04/08/20 04/08/20 04/08/20 04:44 07:19 08:43 WBC RBC Hgb Hct MCV MCHC RDW Lymph % (Auto) Patrick % (Auto) Lymph # Patrick # Seg Neutrophils % Seg Neuts % (Manual) Lymphocytes % (Manual) Nucleated RBC % Seg Neutrophils # Seg Neutrophils # Man Lymphocytes # (Manual) Monocytes # (Manual) Eosinophils # (Manual) PT INR Heparin Anti-Xa Level ABG pH ABG pO2 ABG HCO3 ABG O2 Saturation ABG Base Excess ABG Hemoglobin Oxyhemoglobin Sodium Potassium 6.3 H* Chloride Carbon Dioxide 21 L BUN 89 H Creatinine 1.9 H Glucose 63 L POC Glucose 65 L 168 H Hemoglobin A1c Calcium Phosphorus Magnesium Ferritin AST 370 H ALT 211 H Alkaline Phosphatase 320 H Total Creatine Kinase CK-MB (CK-2) CK-MB (CK-2) Rel Index Troponin T Total Protein Albumin 2.6 L Triglycerides LDL Cholesterol Direct HDL Cholesterol Urine WBC (Auto) Urine Creatinine 04/08/20 04/08/20 04/08/20 12:53 16:38 21:47 WBC RBC Hgb Hct MCV MCHC RDW Lymph % (Auto) Patrick % (Auto) Lymph # Patrick # Seg Neutrophils % Seg Neuts % (Manual) Lymphocytes % (Manual) Nucleated RBC % Seg Neutrophils # Seg Neutrophils # Man Lymphocytes # (Manual) Monocytes # (Manual) Eosinophils # (Manual) PT INR Heparin Anti-Xa Level ABG pH ABG pO2 ABG HCO3 ABG O2 Saturation ABG Base Excess ABG Hemoglobin Oxyhemoglobin Sodium Potassium 6.0 H Chloride Carbon Dioxide BUN 90 H Creatinine 2.1 H Glucose 124 H POC Glucose 129 H 118 H Hemoglobin A1c Calcium Phosphorus Magnesium Ferritin AST ALT Alkaline Phosphatase Total Creatine Kinase CK-MB (CK-2) CK-MB (CK-2) Rel Index Troponin T Total Protein Albumin Triglycerides LDL Cholesterol Direct HDL Cholesterol Urine WBC (Auto) Urine Creatinine 04/09/20 04/09/20 04/09/20 03:45 08:04 19:10 WBC RBC Hgb Hct MCV MCHC RDW Lymph % (Auto) Patrick % (Auto) Lymph # Patrick # Seg Neutrophils % Seg Neuts % (Manual) Lymphocytes % (Manual) Nucleated RBC % Seg Neutrophils # Seg Neutrophils # Man Lymphocytes # (Manual) Monocytes # (Manual) Eosinophils # (Manual) PT INR Heparin Anti-Xa Level ABG pH 7.304 L ABG pO2 72.2 L ABG HCO3 ABG O2 Saturation 93.7 L ABG Base Excess -3.3 L ABG Hemoglobin 8.9 L Oxyhemoglobin 91.8 L Sodium Potassium 6.6 H* 6.5 H* Chloride Carbon Dioxide 21 L BUN 99 H 100 H Creatinine 2.2 H 2.3 H Glucose POC Glucose Hemoglobin A1c Calcium 8.2 L Phosphorus Magnesium Ferritin AST ALT Alkaline Phosphatase Total Creatine Kinase CK-MB (CK-2) CK-MB (CK-2) Rel Index Troponin T Total Protein Albumin Triglycerides LDL Cholesterol Direct HDL Cholesterol Urine WBC (Auto) Urine Creatinine 08/04/10/20 04/10/20 05:48 05:48 08:53 WBC RBC 3.01 L Hgb 8.9 L Hct 28.4 L MCV 95 H MCHC 31 L RDW 17.6 H Lymph % (Auto) 11.4 L Patrick % (Auto) Lymph # 1.1 L Patrick # Seg Neutrophils % 81.1 H Seg Neuts % (Manual) Lymphocytes % (Manual) Nucleated RBC % Seg Neutrophils # 8.1 H Seg Neutrophils # Man Lymphocytes # (Manual) Monocytes # (Manual) Eosinophils # (Manual) PT INR Heparin Anti-Xa Level ABG pH ABG pO2 ABG HCO3 ABG O2 Saturation ABG Base Excess ABG Hemoglobin Oxyhemoglobin Sodium Potassium 5.2 H Chloride Carbon Dioxide BUN 104 H Creatinine 2.2 H Glucose 129 H POC Glucose 110 H Hemoglobin A1c Calcium Phosphorus Magnesium 2.80 H Ferritin AST 502 H ALT 249 H Alkaline Phosphatase 323 H Total Creatine Kinase CK-MB (CK-2) CK-MB (CK-2) Rel Index Troponin T Total Protein Albumin 2.5 L Triglycerides LDL Cholesterol Direct HDL Cholesterol Urine WBC (Auto) Urine Creatinine 04/10/20 04/10/20 04/10/20 11:42 16:05 21:35 WBC RBC Hgb Hct MCV MCHC RDW Lymph % (Auto) Patrick % (Auto) Lymph # Patrick # Seg Neutrophils % Seg Neuts % (Manual) Lymphocytes % (Manual) Nucleated RBC % Seg Neutrophils # Seg Neutrophils # Man Lymphocytes # (Manual) Monocytes # (Manual) Eosinophils # (Manual) PT INR Heparin Anti-Xa Level ABG pH ABG pO2 ABG HCO3 ABG O2 Saturation ABG Base Excess ABG Hemoglobin Oxyhemoglobin Sodium Potassium Chloride Carbon Dioxide BUN Creatinine Glucose POC Glucose 135 H 137 H 151 H Hemoglobin A1c Calcium Phosphorus Magnesium Ferritin AST ALT Alkaline Phosphatase Total Creatine Kinase CK-MB (CK-2) CK-MB (CK-2) Rel Index Troponin T Total Protein Albumin Triglycerides LDL Cholesterol Direct HDL Cholesterol Urine WBC (Auto) Urine Creatinine 04/11/20 04/11/20 04/11/20 06:26 06:26 06:26 WBC RBC 2.89 L Hgb 8.6 L Hct 27.4 L MCV 95 H MCHC 31 L RDW 17.5 H Lymph % (Auto) 9.9 L Patrick % (Auto) Lymph # 1.0 L Patrick # Seg Neutrophils % 85.7 H Seg Neuts % (Manual) Lymphocytes % (Manual) Nucleated RBC % Seg Neutrophils # 8.8 H Seg Neutrophils # Man Lymphocytes # (Manual) Monocytes # (Manual) Eosinophils # (Manual) PT 24.0 H INR 2.10 H Heparin Anti-Xa Level ABG pH ABG pO2 ABG HCO3 ABG O2 Saturation ABG Base Excess ABG Hemoglobin Oxyhemoglobin Sodium 146 H Potassium 5.3 H Chloride 108.2 H Carbon Dioxide BUN 109 H Creatinine 2.1 H Glucose 160 H POC Glucose Hemoglobin A1c Calcium Phosphorus Magnesium Ferritin AST 298 H ALT 207 H Alkaline Phosphatase 274 H Total Creatine Kinase CK-MB (CK-2) CK-MB (CK-2) Rel Index Troponin T Total Protein Albumin 2.5 L Triglycerides LDL Cholesterol Direct HDL Cholesterol Urine WBC (Auto) Urine Creatinine 04/11/20 04/11/20 04/11/20 07:57 11:33 16:07 WBC RBC Hgb Hct MCV MCHC RDW Lymph % (Auto) Patrick % (Auto) Lymph # Patrick # Seg Neutrophils % Seg Neuts % (Manual) Lymphocytes % (Manual) Nucleated RBC % Seg Neutrophils # Seg Neutrophils # Man Lymphocytes # (Manual) Monocytes # (Manual) Eosinophils # (Manual) PT INR Heparin Anti-Xa Level ABG pH ABG pO2 ABG HCO3 ABG O2 Saturation ABG Base Excess ABG Hemoglobin Oxyhemoglobin Sodium Potassium Chloride Carbon Dioxide BUN Creatinine Glucose POC Glucose 170 H 167 H 140 H Hemoglobin A1c Calcium Phosphorus Magnesium Ferritin AST ALT Alkaline Phosphatase Total Creatine Kinase CK-MB (CK-2) CK-MB (CK-2) Rel Index Troponin T Total Protein Albumin Triglycerides LDL Cholesterol Direct HDL Cholesterol Urine WBC (Auto) Urine Creatinine 04/11/20 04/11/20 04/11/20 16:30 16:30 16:50 WBC RBC Hgb Hct MCV MCHC RDW Lymph % (Auto) Patrick % (Auto) Lymph # Patrick # Seg Neutrophils % Seg Neuts % (Manual) Lymphocytes % (Manual) Nucleated RBC % Seg Neutrophils # Seg Neutrophils # Man Lymphocytes # (Manual) Monocytes # (Manual) Eosinophils # (Manual) PT INR Heparin Anti-Xa Level ABG pH 7.325 L ABG pO2 304.4 H ABG HCO3 ABG O2 Saturation 99.5 H ABG Base Excess -4.4 L ABG Hemoglobin 10.9 L Oxyhemoglobin Sodium Potassium Chloride Carbon Dioxide BUN Creatinine Glucose POC Glucose Hemoglobin A1c Calcium Phosphorus Magnesium Ferritin AST ALT Alkaline Phosphatase Total Creatine Kinase CK-MB (CK-2) CK-MB (CK-2) Rel Index Troponin T Total Protein Albumin Triglycerides LDL Cholesterol Direct HDL Cholesterol Urine WBC (Auto) 16.0 H Urine Creatinine 60.0 H 04/11/20 04/11/20 04/11/20 18:17 18:17 18:57 WBC RBC 2.71 L Hgb 7.9 L Hct 26.1 L MCV 96 H MCHC 30 L RDW 18.3 H Lymph % (Auto) Patrick % (Auto) Lymph # Patrick # Seg Neutrophils % Seg Neuts % (Manual) 89.0 H Lymphocytes % (Manual) 7.0 L Nucleated RBC % Seg Neutrophils # Seg Neutrophils # Man 8.8 H Lymphocytes # (Manual) 0.7 L Monocytes # (Manual) Eosinophils # (Manual) PT INR Heparin Anti-Xa Level ABG pH ABG pO2 ABG HCO3 ABG O2 Saturation ABG Base Excess ABG Hemoglobin Oxyhemoglobin Sodium 146 H Potassium 5.8 H Chloride 107.5 H Carbon Dioxide 21 L BUN 111 H Creatinine 2.2 H Glucose 176 H POC Glucose 199 H Hemoglobin A1c Calcium Phosphorus 7.40 H Magnesium 2.90 H Ferritin AST 230 H ALT 163 H Alkaline Phosphatase 236 H Total Creatine Kinase 351 H CK-MB (CK-2) CK-MB (CK-2) Rel Index Troponin T 3.950 H* Total Protein 5.7 L Albumin 2.1 L Triglycerides LDL Cholesterol Direct HDL Cholesterol 19 L Urine WBC (Auto) Urine Creatinine 04/11/20 04/12/20 04/12/20 21:21 01:41 04:45 WBC RBC Hgb Hct MCV MCHC RDW Lymph % (Auto) Patrick % (Auto) Lymph # Patrick # Seg Neutrophils % Seg Neuts % (Manual) Lymphocytes % (Manual) Nucleated RBC % Seg Neutrophils # Seg Neutrophils # Man Lymphocytes # (Manual) Monocytes # (Manual) Eosinophils # (Manual) PT INR Heparin Anti-Xa Level ABG pH 7.451 H ABG pO2 ABG HCO3 ABG O2 Saturation ABG Base Excess ABG Hemoglobin 6.2 L Oxyhemoglobin Sodium 147 H Potassium 6.0 H Chloride 111.8 H Carbon Dioxide 21 L BUN 117 H Creatinine 2.6 H Glucose 201 H POC Glucose 248 H Hemoglobin A1c Calcium 8.0 L Phosphorus Magnesium Ferritin AST ALT Alkaline Phosphatase Total Creatine Kinase CK-MB (CK-2) CK-MB (CK-2) Rel Index Troponin T Total Protein Albumin Triglycerides LDL Cholesterol Direct HDL Cholesterol Urine WBC (Auto) Urine Creatinine 04/12/20 04/12/20 04/12/20 07:22 07:22 07:22 WBC 12.1 H RBC 2.96 L Hgb 8.7 L Hct 28.1 L MCV 95 H MCHC 31 L RDW 17.7 H Lymph % (Auto) 7.1 L Patrick % (Auto) Lymph # 0.9 L Patrick # Seg Neutrophils % 85.8 H Seg Neuts % (Manual) Lymphocytes % (Manual) Nucleated RBC % Seg Neutrophils # 10.4 H Seg Neutrophils # Man Lymphocytes # (Manual) Monocytes # (Manual) Eosinophils # (Manual) PT 22.9 H INR 1.99 H Heparin Anti-Xa Level ABG pH ABG pO2 ABG HCO3 ABG O2 Saturation ABG Base Excess ABG Hemoglobin Oxyhemoglobin Sodium 147 H Potassium 5.2 H Chloride 109.8 H Carbon Dioxide 20 L BUN 120 H Creatinine 2.8 H Glucose 158 H POC Glucose Hemoglobin A1c Calcium Phosphorus Magnesium 3.00 H Ferritin AST 195 H ALT 162 H Alkaline Phosphatase 244 H Total Creatine Kinase CK-MB (CK-2) CK-MB (CK-2) Rel Index Troponin T Total Protein 5.9 L Albumin 2.4 L Triglycerides LDL Cholesterol Direct HDL Cholesterol Urine WBC (Auto) Urine Creatinine 04/12/20 04/12/20 04/12/20 11:54 16:30 21:05 WBC RBC Hgb Hct MCV MCHC RDW Lymph % (Auto) Patrick % (Auto) Lymph # Patrick # Seg Neutrophils % Seg Neuts % (Manual) Lymphocytes % (Manual) Nucleated RBC % Seg Neutrophils # Seg Neutrophils # Man Lymphocytes # (Manual) Monocytes # (Manual) Eosinophils # (Manual) PT INR Heparin Anti-Xa Level ABG pH ABG pO2 ABG HCO3 ABG O2 Saturation ABG Base Excess ABG Hemoglobin Oxyhemoglobin Sodium 146 H Potassium 5.2 H Chloride 107.3 H Carbon Dioxide 21 L BUN 132 H Creatinine 3.4 H Glucose 212 H POC Glucose 213 H 181 H Hemoglobin A1c Calcium Phosphorus Magnesium Ferritin AST ALT Alkaline Phosphatase Total Creatine Kinase CK-MB (CK-2) CK-MB (CK-2) Rel Index Troponin T Total Protein Albumin Triglycerides LDL Cholesterol Direct HDL Cholesterol Urine WBC (Auto) Urine Creatinine 04/12/20 04/12/20 04/13/20 21:17 23:24 04:25 WBC RBC Hgb Hct MCV MCHC RDW Lymph % (Auto) Patrick % (Auto) Lymph # Patrick # Seg Neutrophils % Seg Neuts % (Manual) Lymphocytes % (Manual) Nucleated RBC % Seg Neutrophils # Seg Neutrophils # Man Lymphocytes # (Manual) Monocytes # (Manual) Eosinophils # (Manual) PT INR Heparin Anti-Xa Level ABG pH ABG pO2 161.4 H ABG HCO3 ABG O2 Saturation ABG Base Excess -2.8 L ABG Hemoglobin 7.6 L Oxyhemoglobin Sodium Potassium Chloride Carbon Dioxide BUN Creatinine Glucose POC Glucose 203 H 221 H Hemoglobin A1c Calcium Phosphorus Magnesium Ferritin AST ALT Alkaline Phosphatase Total Creatine Kinase CK-MB (CK-2) CK-MB (CK-2) Rel Index Troponin T Total Protein Albumin Triglycerides LDL Cholesterol Direct HDL Cholesterol Urine WBC (Auto) Urine Creatinine 04/13/20 04/13/20 04/13/20 04:35 04:35 04:35 WBC 13.3 H RBC 2.68 L Hgb 8.0 L Hct 25.1 L MCV MCHC RDW 17.4 H Lymph % (Auto) 9.1 L Patrick % (Auto) Lymph # Patrick # 0.9 H Seg Neutrophils % 84.0 H Seg Neuts % (Manual) Lymphocytes % (Manual) Nucleated RBC % Seg Neutrophils # 11.1 H Seg Neutrophils # Man Lymphocytes # (Manual) Monocytes # (Manual) Eosinophils # (Manual) PT 27.8 H INR 2.55 H Heparin Anti-Xa Level ABG pH ABG pO2 ABG HCO3 ABG O2 Saturation ABG Base Excess ABG Hemoglobin Oxyhemoglobin Sodium 149 H Potassium 5.2 H Chloride 109.1 H Carbon Dioxide 20 L BUN 136 H Creatinine 3.5 H Glucose 271 H POC Glucose Hemoglobin A1c Calcium 8.3 L Phosphorus Magnesium Ferritin AST 241 H ALT 153 H Alkaline Phosphatase 294 H Total Creatine Kinase CK-MB (CK-2) CK-MB (CK-2) Rel Index Troponin T Total Protein 6.0 L Albumin 2.3 L Triglycerides LDL Cholesterol Direct HDL Cholesterol Urine WBC (Auto) Urine Creatinine 04/13/20 04/13/20 04/13/20 05:27 13:53 16:54 WBC RBC Hgb Hct MCV MCHC RDW Lymph % (Auto) Patrick % (Auto) Lymph # Patrick # Seg Neutrophils % Seg Neuts % (Manual) Lymphocytes % (Manual) Nucleated RBC % Seg Neutrophils # Seg Neutrophils # Man Lymphocytes # (Manual) Monocytes # (Manual) Eosinophils # (Manual) PT INR Heparin Anti-Xa Level ABG pH ABG pO2 ABG HCO3 ABG O2 Saturation ABG Base Excess ABG Hemoglobin Oxyhemoglobin Sodium Potassium Chloride Carbon Dioxide BUN Creatinine Glucose POC Glucose 284 H 320 H 357 H Hemoglobin A1c Calcium Phosphorus Magnesium Ferritin AST ALT Alkaline Phosphatase Total Creatine Kinase CK-MB (CK-2) CK-MB (CK-2) Rel Index Troponin T Total Protein Albumin Triglycerides LDL Cholesterol Direct HDL Cholesterol Urine WBC (Auto) Urine Creatinine 04/14/20 04/14/20 04/14/20 00:13 04:38 05:47 WBC RBC Hgb Hct MCV MCHC RDW Lymph % (Auto) Patrick % (Auto) Lymph # Patrick # Seg Neutrophils % Seg Neuts % (Manual) Lymphocytes % (Manual) Nucleated RBC % Seg Neutrophils # Seg Neutrophils # Man Lymphocytes # (Manual) Monocytes # (Manual) Eosinophils # (Manual) PT INR Heparin Anti-Xa Level ABG pH ABG pO2 ABG HCO3 ABG O2 Saturation ABG Base Excess -3.6 L ABG Hemoglobin 8.0 L Oxyhemoglobin 94.7 L Sodium Potassium Chloride Carbon Dioxide BUN Creatinine Glucose POC Glucose 251 H 273 H Hemoglobin A1c Calcium Phosphorus Magnesium Ferritin AST ALT Alkaline Phosphatase Total Creatine Kinase CK-MB (CK-2) CK-MB (CK-2) Rel Index Troponin T Total Protein Albumin Triglycerides LDL Cholesterol Direct HDL Cholesterol Urine WBC (Auto) Urine Creatinine 04/14/20 04/14/20 04/14/20 07:00 07:00 07:00 WBC RBC Hgb 7.8 L Hct 25.3 L MCV MCHC RDW Lymph % (Auto) Patrick % (Auto) Lymph # Patrick # Seg Neutrophils % Seg Neuts % (Manual) Lymphocytes % (Manual) Nucleated RBC % Seg Neutrophils # Seg Neutrophils # Man Lymphocytes # (Manual) Monocytes # (Manual) Eosinophils # (Manual) PT 24.3 H INR 2.15 H Heparin Anti-Xa Level ABG pH ABG pO2 ABG HCO3 ABG O2 Saturation ABG Base Excess ABG Hemoglobin Oxyhemoglobin Sodium Potassium Chloride Carbon Dioxide 20 L BUN 151 H Creatinine 4.1 H Glucose 266 H POC Glucose Hemoglobin A1c Calcium 7.7 L Phosphorus Magnesium Ferritin AST 176 H ALT 123 H Alkaline Phosphatase 259 H Total Creatine Kinase CK-MB (CK-2) CK-MB (CK-2) Rel Index Troponin T Total Protein 5.5 L Albumin 2.1 L Triglycerides LDL Cholesterol Direct HDL Cholesterol Urine WBC (Auto) Urine Creatinine 04/14/20 04/14/20 04/14/20 11:56 12:00 16:13 WBC RBC Hgb Hct MCV MCHC RDW Lymph % (Auto) Patrick % (Auto) Lymph # Patrick # Seg Neutrophils % Seg Neuts % (Manual) Lymphocytes % (Manual) Nucleated RBC % Seg Neutrophils # Seg Neutrophils # Man Lymphocytes # (Manual) Monocytes # (Manual) Eosinophils # (Manual) PT INR Heparin Anti-Xa Level ABG pH ABG pO2 ABG HCO3 ABG O2 Saturation ABG Base Excess ABG Hemoglobin Oxyhemoglobin Sodium Potassium Chloride 108.0 H Carbon Dioxide 17 L BUN 135 H Creatinine 3.9 H Glucose 265 H POC Glucose 313 H 331 H Hemoglobin A1c Calcium Phosphorus 6.70 H Magnesium 2.40 H Ferritin AST ALT Alkaline Phosphatase Total Creatine Kinase CK-MB (CK-2) CK-MB (CK-2) Rel Index Troponin T Total Protein Albumin Triglycerides LDL Cholesterol Direct HDL Cholesterol Urine WBC (Auto) Urine Creatinine 04/14/20 04/15/20 04/15/20 17:51 00:00 04:34 WBC RBC Hgb Hct MCV MCHC RDW Lymph % (Auto) Patrick % (Auto) Lymph # Patrick # Seg Neutrophils % Seg Neuts % (Manual) Lymphocytes % (Manual) Nucleated RBC % Seg Neutrophils # Seg Neutrophils # Man Lymphocytes # (Manual) Monocytes # (Manual) Eosinophils # (Manual) PT INR Heparin Anti-Xa Level ABG pH ABG pO2 ABG HCO3 19.9 L ABG O2 Saturation ABG Base Excess -4.1 L ABG Hemoglobin 7.5 L Oxyhemoglobin 94.9 L Sodium Potassium Chloride Carbon Dioxide BUN Creatinine Glucose POC Glucose 347 H 325 H Hemoglobin A1c Calcium Phosphorus Magnesium Ferritin AST ALT Alkaline Phosphatase Total Creatine Kinase CK-MB (CK-2) CK-MB (CK-2) Rel Index Troponin T Total Protein Albumin Triglycerides LDL Cholesterol Direct HDL Cholesterol Urine WBC (Auto) Urine Creatinine 04/15/20 04/15/20 04/15/20 04:57 05:39 11:59 WBC RBC Hgb Hct MCV MCHC RDW Lymph % (Auto) Patrick % (Auto) Lymph # Patrick # Seg Neutrophils % Seg Neuts % (Manual) Lymphocytes % (Manual) Nucleated RBC % Seg Neutrophils # Seg Neutrophils # Man Lymphocytes # (Manual) Monocytes # (Manual) Eosinophils # (Manual) PT INR Heparin Anti-Xa Level ABG pH ABG pO2 ABG HCO3 ABG O2 Saturation ABG Base Excess ABG Hemoglobin Oxyhemoglobin Sodium Potassium 5.1 H Chloride Carbon Dioxide 20 L BUN 163 H Creatinine 4.5 H Glucose 274 H POC Glucose 257 H 330 H Hemoglobin A1c Calcium 7.8 L Phosphorus Magnesium Ferritin AST 130 H ALT 105 H Alkaline Phosphatase 254 H Total Creatine Kinase CK-MB (CK-2) CK-MB (CK-2) Rel Index Troponin T Total Protein 5.8 L Albumin 2.0 L Triglycerides LDL Cholesterol Direct HDL Cholesterol Urine WBC (Auto) Urine Creatinine 04/15/20 04/15/20 04/16/20 18:53 23:58 04:25 WBC RBC Hgb Hct MCV MCHC RDW Lymph % (Auto) Patrick % (Auto) Lymph # Patrick # Seg Neutrophils % Seg Neuts % (Manual) Lymphocytes % (Manual) Nucleated RBC % Seg Neutrophils # Seg Neutrophils # Man Lymphocytes # (Manual) Monocytes # (Manual) Eosinophils # (Manual) PT INR Heparin Anti-Xa Level ABG pH 7.304 L ABG pO2 74.6 L ABG HCO3 18.8 L ABG O2 Saturation ABG Base Excess -6.9 L ABG Hemoglobin 5.0 L Oxyhemoglobin Sodium Potassium Chloride Carbon Dioxide BUN Creatinine Glucose POC Glucose 315 H 260 H Hemoglobin A1c Calcium Phosphorus Magnesium Ferritin AST ALT Alkaline Phosphatase Total Creatine Kinase CK-MB (CK-2) CK-MB (CK-2) Rel Index Troponin T Total Protein Albumin Triglycerides LDL Cholesterol Direct HDL Cholesterol Urine WBC (Auto) Urine Creatinine 04/16/20 04/16/20 05:00 05:17 WBC RBC Hgb Hct MCV MCHC RDW Lymph % (Auto) Patrick % (Auto) Lymph # Patrick # Seg Neutrophils % Seg Neuts % (Manual) Lymphocytes % (Manual) Nucleated RBC % Seg Neutrophils # Seg Neutrophils # Man Lymphocytes # (Manual) Monocytes # (Manual) Eosinophils # (Manual) PT INR Heparin Anti-Xa Level ABG pH ABG pO2 ABG HCO3 ABG O2 Saturation ABG Base Excess ABG Hemoglobin Oxyhemoglobin Sodium Potassium 5.9 H Chloride Carbon Dioxide 19 L BUN 177 H Creatinine 5.1 H Glucose 261 H POC Glucose 255 H Hemoglobin A1c Calcium 7.7 L Phosphorus Magnesium Ferritin AST 116 H ALT 83 H Alkaline Phosphatase 254 H Total Creatine Kinase CK-MB (CK-2) CK-MB (CK-2) Rel Index Troponin T Total Protein 5.6 L Albumin 2.3 L Triglycerides LDL Cholesterol Direct HDL Cholesterol Urine WBC (Auto) Urine Creatinine
[2020-04-16 12:30] LABS: Hematocrit 21.1 % (35.5-45.6); Hemoglobin 6.5 gm/dl (11.8-15.2); Mean Corpuscular HGB Conc 31 % (32-34); Mean Corpuscular Volume 95 fl (84-94); Red Blood Count 2.22 M/mm3 (3.65-5.03); Red Cell Distribution Width 18.5 % (13.2-15.2)
[2020-04-16 12:36] LABS: Platelet Count 96 K/mm3 (140-440)
[2020-04-16] MEDS ORDERED: SODIUM CHLORIDE 0.9% 500 ML 500 ML IV SCH (12:38)
--- NOTE | 2020-04-16 13:09 | Progress Note ---
Assessment and Plan Cont present cardiac management. Cont supportive measures. Wean vasopressors as tolerated. Overall poor prognosis. Per neurology - pt with anoxic brain injury and possible brain , very poor prognosis. The patient has been seen in conjunction with Dr. Gil Jimenes who agrees with the assessment and plan of care. - Patient Problems (1) Cardiopulmonary arrest Current Visit: Yes Status: Acute (2) Anoxic brain injury Current Visit: Yes Status: Acute (3) PAD (peripheral artery disease) Current Visit: Yes Status: Chronic (4) S/P BKA (below knee amputation) Current Visit: Yes Status: Chronic (5) Abnormal ECG Current Visit: Yes Status: Acute (6) NSTEMI (non-ST elevated myocardial infarction) Current Visit: Yes Status: Acute (7) Cardiomyopathy Current Visit: Yes Status: Acute (8) CAD (coronary artery disease) Current Visit: Yes Status: Chronic (9) History of coronary artery bypass graft Current Visit: Yes Status: Chronic (10) HTN (hypertension) Current Visit: Yes Status: Chronic Qualifiers: Hypertension type: essential hypertension Qualified Code(s): I10 - Essential (primary) hypertension (11) History of CVA (cerebrovascular accident) Current Visit: Yes Status: Chronic (12) Smoker Current Visit: Yes Status: Chronic (13) NSVT (nonsustained ventricular tachycardia) Current Visit: Yes Status: Acute (14) DYLON (acute kidney injury) Current Visit: Yes Status: Acute (15) Anemia Current Visit: Yes Status: Acute Subjective Date of service: 04/16/20 Principal diagnosis: Acute limb ischemia; STARR; COPD; Ac hypoxemic resp failure; DM II; NSTEMI Interval history: pt remains intubated, unresponsive. in SR on tele, amio gtt infusing. requiring vasopressor support. Objective Last Vital Signs Temp 97.9 F 04/16/20 12:00 Pulse 68 04/16/20 11:46 Resp 22 04/16/20 11:46 BP 103/53 04/16/20 11:46 Pulse Ox 93 04/16/20 11:46 - Physical Examination General: Other (intubated, unresponsive) HEENT: Positive: Normocephaly Neck: Positive: neck supple, trachea midline. Negative: JVD/HJR Cardiac: Positive: Reg Rate and Rhythm, S1/S2 Lungs: Positive: Decreased Breath Sounds, Oxygen, Ventilated Respirations Neuro: Positive: Other (intubated, unresponsive) Abdomen: Positive: Soft, Active Bowel Sounds Skin: Negative: Rash Musculoskeletal: other (s/p left BKA) Extremities: Present: upper extr. pulses, lower extr. pulses, Other (LLE pain, numbness, pale). Absent: edema - Labs and Meds Cardiac Enzymes 04/16/20 Range/Units 05:00 AST 116 H (5-40) units/L CBC 04/16/20 Range/Units 12:26 WBC 10.5 (4.5-11.0) K/mm3 RBC 2.22 L (3.65-5.03) M/mm3 Hgb 6.5 L (11.8-15.2) gm/dl Hct 21.1 L (35.5-45.6) % Plt Count 96 L (140-440) K/mm3 Comprehensive Metabolic Panel 04/16/20 Range/Units 05:00 Sodium 140 (137-145) mmol/L Potassium 5.9 H (3.6-5.0) mmol/L Chloride 102.2 (98-107) mmol/L Carbon Dioxide 19 L (22-30) mmol/L BUN 177 H (9-20) mg/dL Creatinine 5.1 H (0.8-1.3) mg/dL Glucose 261 H (75-100) mg/dL Calcium 7.7 L (8.4-10.2) mg/dL AST 116 H (5-40) units/L ALT 83 H (7-56) units/L Alkaline Phosphatase 254 H (35-129) units/L Total Protein 5.6 L (6.3-8.2) g/dL Albumin 2.3 L (3.9-5) g/dL - Imaging and Cardiology EKG: report reviewed, image reviewed Echo: report reviewed (03/20/2020 - EF 30-35%; akinetic mid inferolateral, mid inferior, apical lateral, and apical inferior wall segments), other (12/2014 - EF 55-60%, no significant valvular abnormalities) - EKG Sinus rhythms and dysrhythmias: sinus rhythm Repolarization changes or abnormalities: nonspecific abnormality, ST segment, and/or T wave - Allied health notes Allied health notes reviewed: nursing
--- NOTE | 2020-04-16 13:31 | Event Note ---
Date: 04/16/20 Contacted for vascath placement. Obtained consent and then read the neurology note stating the patient is brain . Discussed situation with Dr. Alan, Dr. William and Dr. Tovar. If patient is brain , then dialysis and vascath will not change prognosis of brain , which is . All the physicians I spoke to understand and agree. Will hold off placing any vascaths for now. Please contact vascular if the clinical situation changes.
[2020-04-16] MEDS: NORepinephrine/NS 4 MG-250 ML 4 MG/250 ML BAG IV SCH ×3 (14:10→23:36)
[2020-04-16] MEDS: PANTOPRAZOLE 80 MG in SODIUM CHLORIDE 0.9% 100 ML IV SCH ×2 (15:08→22:40)
[2020-04-16 16:18] LABS: Calcium 7.3 mg/dL (8.4-10.2)
--- NOTE | 2020-04-16 16:23 | Nuclear Medicine Report ---
NM BRAIN FLOW HISTORY: Absent brain reflexes COMPARISON: None. TECHNIQUE: Following administration of radiopharmaceutical, followed by a saline flush, immediate dyn amic images of the head and neck were acquired in the anterior projection for adequate amount of time . Subsequently, static images of the head were obtained. RADIOPHARMACEUTICAL: 21.3 mCi of [id number] FINDINGS: No intracranial acitivity is identified. Increased activity in the nose is indicative of increased c ollateral flow through the external carotids. Additional Findings: None. IMPRESSION: 1. Intracranial cerebral perfusion is absent. Signer Name: Sanya Ross MD Signed: 04/16/2020 4:18 PM Workstation Name: [id number]
[2020-04-16] MEDS ORDERED: CALCIUM GLUCONATE 2,000 MG in SODIUM CHLORIDE 0.9% 100 ML IV ONE (16:42)
[2020-04-16] MEDS ORDERED: DEXTROSE 50% IN WATER (25GM) 50 ML SYRINGE IV PRN (16:42)
--- NOTE | 2020-04-16 16:59 | XRay Report ---
ABDOMEN 1 VIEW INDICATION / CLINICAL INFORMATION: NGT PLACEMENT. COMPARISON: KUB from 04/10/2020. FINDINGS: TUBES / LINES: An NG tube terminates medially along the gastric fundus. BOWEL GAS PATTERN: No significant abnormality. FREE AIR / EXTRALUMINAL GAS: None seen. ADDITIONAL FINDINGS: Aeration of the left lung base has improved. There is a small left pleural effus ion with probable associated atelectasis. IMPRESSION: 1. Satisfactory positioning of the NG tube. No acute abnormality of the abdomen. 2. Additional findings as above. Signer Name: Anton Duenas MD Signed: 04/16/2020 4:55 PM Workstation Name: [id number]
--- NOTE | 2020-04-16 18:43 | Event Note ---
Date: 04/16/20 Patient's potassium is 6.3 Will correct with calcium gluconate 2 g IV Regular insulin 10 units IV, followed by D50 IV 1 dose, Kayexalate 30 g p.o. 1 dose Check potassium levels at 10 PM and a.m. Plan of care reviewed with the patient's nurse I also informed the shore man
[2020-04-16 21:30] LABS: Calcium 6.9 mg/dL (8.4-10.2)
[2020-04-16 23:50] LABS: Calcium 6.9 mg/dL (8.4-10.2)
[2020-04-17] MEDS ORDERED: VASOPRESSIN 20 UNIT in SODIUM CHLORIDE 0.9% 100 ML IV SCH
[2020-04-17] MEDS: INSULIN LISPRO 100 UNIT/ML VIAL 3 mL SUB-Q SCH ×2 (00:11→05:20)
[2020-04-17] MEDS ORDERED: NORepinephrine 8 MG in SODIUM CHLORIDE 0.9% 250ML 242 ML IV SCH (01:00)
[2020-04-17 04:35] LABS: ABG Base Excess -6.5 mmol/L (-2.0-3.0); ABG Methemoglobin 0.5 % (0.0-1.5); ABG Oxygen Saturation 99.5 % (95.0-99.0); ABG PCO2 30.1 mm Hg; ABG PH 7.394 pH Units (7.350-7.450)
[2020-04-17 04:38] LABS: ABG PO2 320.9 mm Hg (80.0-90.0)
[2020-04-17 06:17] LABS: Albumin 1.9 g/dL (3.9-5); Calcium 6.7 mg/dL (8.4-10.2)
[2020-04-17] MEDS ORDERED: CALCIUM GLUCONATE 1,000 MG in SODIUM CHLORIDE 0.9% 100 ML IV ONE (09:00)
[2020-04-17] MEDS: INSULIN NPH/REGULAR 70/30 INJ SUB-Q SCH (09:00)
[2020-04-17] MEDS: BUDESONIDE 0.5 MG/2 ML NEBU IH SCH (09:02)
[2020-04-17] MEDS: ARFORMOTEROL 15 MCG/2 ML NEBU IH SCH (09:02)
--- NOTE | 2020-04-17 10:28 | Progress Note ---
Assessment and Plan 1-Anoxic brain injury/metabolic encephalopathy; -Secondary to cardiac arrest, pt. is off sedation -currently with absent all brain stem reflexes on evaluation -Possible brain ,NM MRI done showed no blood flow in brain with a finding consistent with brain -Very poor prognosis, family aware -No family member are available today to discuss case with them even though we informed them yesterday about today meeting 9 am !!!!! we tried to call family no response!!!!! -Case D/W PCP 2-Acute CVA: - As per MRI -Aspirin and statin, -Poor prognosis, anoxic brain injury 3-Acute hypoxic respiratory failure; -Intubated on ventilatory support Wean as tolerated and extubate, poor prognosis 4-V. tach cardiac arrest; status post CPR per ACLS -On mechanical ventilation, poor prognosis- -No spontaneous breathing Full CODE STATUS 5-Ventricular tachycardia sustained 04/14/2020; resolved -s/pAmiodarone bolus, followed by amiodarone drip -s/p Cardioversion /lidocaine bolus /lidocaine drip -Transaminitis/Acute liver failure/coagulopathy -Sepsis/infected BKA stump/possible pneumonia -Septic shock; -PAD /acute LLE ischemia s/p BKA -Non-ST elevation CT : -Acute renal failure; ATN -Type II diabetes mellitus -Anemia; -Severe protein calorie malnutrition -DVT prophylaxis - Full code status PLAN 1- will sign off. Subjective Date of service: 04/17/20 Principal diagnosis: Septic Shock/Cardiopulmonary Arrest Interval history: Status unchanged still on vent unrsponsive, no gag,no corneal , no cough, NM mri showed no blood flow to brain Objective - Vital Sign Vital Signs - 12hr 04/16/20 04/16/20 04/16/20 22:30 22:45 23:00 Temperature Pulse Rate 71 71 71 Pulse Rate [ Anterior Bilateral Throughout] Respiratory 20 16 14 Rate Respiratory Rate [Anterior Bilateral Throughout] Respiratory Rate [Left Leg] Respiratory Rate [Right Leg ] Respiratory Rate [left foot ] Blood Pressure 91/47 92/45 87/43 O2 Sat by Pulse 99 100 93 Oximetry 04/16/20 04/16/20 04/16/20 23:15 23:30 23:45 Temperature Pulse Rate 73 71 71 Pulse Rate [ Anterior Bilateral Throughout] Respiratory 20 14 14 Rate Respiratory Rate [Anterior Bilateral Throughout] Respiratory Rate [Left Leg] Respiratory Rate [Right Leg ] Respiratory Rate [left foot ] Blood Pressure 97/51 89/46 84/44 O2 Sat by Pulse 100 100 100 Oximetry 04/17/20 04/17/20 04/17/20 00:00 00:15 00:28 Temperature 98.8 F Pulse Rate 71 73 74 Pulse Rate [ Anterior Bilateral Throughout] Respiratory 15 13 Rate Respiratory Rate [Anterior Bilateral Throughout] Respiratory Rate [Left Leg] Respiratory Rate [Right Leg ] Respiratory Rate [left foot ] Blood Pressure 87/43 91/50 91/50 O2 Sat by Pulse 100 100 100 Oximetry 04/17/20 04/17/20 04/17/20 00:30 00:45 01:00 Temperature Pulse Rate 73 71 71 Pulse Rate [ Anterior Bilateral Throughout] Respiratory 13 13 13 Rate Respiratory Rate [Anterior Bilateral Throughout] Respiratory Rate [Left Leg] Respiratory Rate [Right Leg ] Respiratory Rate [left foot ] Blood Pressure 89/46 91/52 102/57 O2 Sat by Pulse 100 Oximetry 04/17/20 04/17/20 04/17/20 01:15 01:30 01:45 Temperature Pulse Rate 73 73 72 Pulse Rate [ Anterior Bilateral Throughout] Respiratory 15 17 14 Rate Respiratory Rate [Anterior Bilateral Throughout] Respiratory Rate [Left Leg] Respiratory Rate [Right Leg ] Respiratory Rate [left foot ] Blood Pressure 103/61 111/63 114/63 O2 Sat by Pulse 99 Oximetry 04/17/20 04/17/20 04/17/20 02:00 02:15 02:30 Temperature Pulse Rate 75 75 76 Pulse Rate [ Anterior Bilateral Throughout] Respiratory 14 14 18 Rate Respiratory Rate [Anterior Bilateral Throughout] Respiratory Rate [Left Leg] Respiratory Rate [Right Leg ] Respiratory Rate [left foot ] Blood Pressure 107/71 125/71 123/71 O2 Sat by Pulse 85 91 87 Oximetry 04/17/20 04/17/20 04/17/20 02:45 03:00 03:15 Temperature Pulse Rate 72 71 71 Pulse Rate [ Anterior Bilateral Throughout] Respiratory 17 19 17 Rate Respiratory Rate [Anterior Bilateral Throughout] Respiratory Rate [Left Leg] Respiratory Rate [Right Leg ] Respiratory Rate [left foot ] Blood Pressure 106/62 108/66 116/64 O2 Sat by Pulse 83 L Oximetry 04/17/20 04/17/20 04/17/20 03:30 03:45 03:54 Temperature Pulse Rate 73 75 75 Pulse Rate [ Anterior Bilateral Throughout] Respiratory 15 17 Rate Respiratory Rate [Anterior Bilateral Throughout] Respiratory Rate [Left Leg] Respiratory Rate [Right Leg ] Respiratory Rate [left foot ] Blood Pressure 110/68 127/73 127/73 O2 Sat by Pulse 88 95 Oximetry 04/17/20 04/17/20 04/17/20 04:00 04:10 04:15 Temperature 99.3 F Pulse Rate 76 76 Pulse Rate [ Anterior Bilateral Throughout] Respiratory 14 17 Rate Respiratory Rate [Anterior Bilateral Throughout] Respiratory Rate [Left Leg] Respiratory Rate [Right Leg ] Respiratory Rate [left foot ] Blood Pressure 128/73 128/73 O2 Sat by Pulse 84 81 L 81 L Oximetry 04/17/20 04/17/20 04/17/20 04:31 04:45 05:01 Temperature Pulse Rate 77 76 74 Pulse Rate [ Anterior Bilateral Throughout] Respiratory 16 15 16 Rate Respiratory Rate [Anterior Bilateral Throughout] Respiratory Rate [Left Leg] Respiratory Rate [Right Leg ] Respiratory Rate [left foot ] Blood Pressure 173/49 173/49 173/50 O2 Sat by Pulse 82 L 81 L Oximetry 04/17/20 04/17/20 04/17/20 05:15 05:31 05:45 Temperature Pulse Rate 73 74 74 Pulse Rate [ Anterior Bilateral Throughout] Respiratory 16 15 17 Rate Respiratory Rate [Anterior Bilateral Throughout] Respiratory Rate [Left Leg] Respiratory Rate [Right Leg ] Respiratory Rate [left foot ] Blood Pressure 147/64 163/41 163/41 O2 Sat by Pulse 100 100 98 Oximetry 04/17/20 04/17/20 04/17/20 06:01 06:15 06:31 Temperature Pulse Rate 73 73 73 Pulse Rate [ Anterior Bilateral Throughout] Respiratory 11 L 16 18 Rate Respiratory Rate [Anterior Bilateral Throughout] Respiratory Rate [Left Leg] Respiratory Rate [Right Leg ] Respiratory Rate [left foot ] Blood Pressure 147/50 147/50 137/34 O2 Sat by Pulse 94 92 90 Oximetry 04/17/20 04/17/20 04/17/20 06:45 07:01 07:15 Temperature Pulse Rate 73 73 73 Pulse Rate [ Anterior Bilateral Throughout] Respiratory 15 15 17 Rate Respiratory Rate [Anterior Bilateral Throughout] Respiratory Rate [Left Leg] Respiratory Rate [Right Leg ] Respiratory Rate [left foot ] Blood Pressure 137/34 137/41 127/41 O2 Sat by Pulse 89 93 94 Oximetry 04/17/20 04/17/20 04/17/20 07:30 07:45 08:00 Temperature 98.8 F Pulse Rate 73 73 71 Pulse Rate [ Anterior Bilateral Throughout] Respiratory 15 18 14 Rate Respiratory Rate [Anterior Bilateral Throughout] Respiratory Rate [Left Leg] Respiratory Rate [Right Leg ] Respiratory Rate [left foot ] Blood Pressure 112/40 100/39 108/35 O2 Sat by Pulse 95 93 93 Oximetry 04/17/20 04/17/20 04/17/20 08:15 08:30 08:45 Temperature Pulse Rate 71 75 72 Pulse Rate [ Anterior Bilateral Throughout] Respiratory 17 15 14 Rate Respiratory Rate [Anterior Bilateral Throughout] Respiratory Rate [Left Leg] Respiratory Rate [Right Leg ] Respiratory Rate [left foot ] Blood Pressure 99/37 116/44 97/38 O2 Sat by Pulse 94 95 94 Oximetry 04/17/20 04/17/20 04/17/20 08:57 09:00 09:15 Temperature Pulse Rate 74 73 72 Pulse Rate [ Anterior Bilateral Throughout] Respiratory 18 16 Rate Respiratory Rate [Anterior Bilateral Throughout] Respiratory Rate [Left Leg] Respiratory Rate [Right Leg ] Respiratory Rate [left foot ] Blood Pressure 96/38 97/38 95/36 O2 Sat by Pulse 95 96 96 Oximetry 04/17/20 04/17/20 04/17/20 09:30 09:45 10:00 Temperature Pulse Rate 72 73 71 Pulse Rate [ 71 Anterior Bilateral Throughout] Respiratory 12 16 14 Rate Respiratory 22 Rate [Anterior Bilateral Throughout] Respiratory 18 Rate [Left Leg] Respiratory 18 Rate [Right Leg ] Respiratory 18 Rate [left foot ] Blood Pressure 96/35 92/38 96/34 O2 Sat by Pulse 97 97 96 Oximetry 04/17/20 10:15 Temperature Pulse Rate 74 Pulse Rate [ Anterior Bilateral Throughout] Respiratory 15 Rate Respiratory Rate [Anterior Bilateral Throughout] Respiratory Rate [Left Leg] Respiratory Rate [Right Leg ] Respiratory Rate [left foot ] Blood Pressure 98/37 O2 Sat by Pulse 97 Oximetry - Neurologic Detailed motor examination: other (status is unchanged ) - Laboratory Findings CBC and BMP: 04/16/20 12:26 04/17/20 04:00 Abnormal Lab Findings: Abnormal Labs 03/18/20 03/18/20 03/18/20 18:28 18:28 20:56 WBC 12.3 H RBC Hgb Hct MCV MCHC RDW Plt Count Lymph % (Auto) 11.0 L [place] % (Auto) 9.8 H Lymph # [place] # 1.2 H Seg Neutrophils % 78.4 H Seg Neuts % (Manual) Lymphocytes % (Manual) Nucleated RBC % Seg Neutrophils # 9.6 H Seg Neutrophils # Man Lymphocytes # (Manual) Monocytes # (Manual) Eosinophils # (Manual) PT INR Heparin Anti-Xa Level ABG pH ABG pO2 ABG HCO3 ABG O2 Saturation ABG Base Excess ABG Hemoglobin Oxyhemoglobin Sodium 132 L Potassium Chloride 91.9 L Carbon Dioxide 20 L BUN Creatinine 1.4 H Glucose 406 H POC Glucose Hemoglobin A1c Calcium Phosphorus Magnesium Ferritin AST ALT Alkaline Phosphatase Total Creatine Kinase 2727 H 2492 H CK-MB (CK-2) 135.9 H 107.2 H CK-MB (CK-2) Rel Index 4.3 H Troponin T 5.110 H* 3.960 H* D Total Protein Albumin Triglycerides 188 H LDL Cholesterol Direct 141 H HDL Cholesterol Urine WBC (Auto) Urine Creatinine Crossmatch 03/18/20 03/19/20 03/19/20 22:21 01:57 08:08 WBC RBC Hgb Hct MCV MCHC RDW Plt Count Lymph % (Auto) [place] % (Auto) Lymph # [place] # Seg Neutrophils % Seg Neuts % (Manual) Lymphocytes % (Manual) Nucleated RBC % Seg Neutrophils # Seg Neutrophils # Man Lymphocytes # (Manual) Monocytes # (Manual) Eosinophils # (Manual) PT INR Heparin Anti-Xa Level ABG pH ABG pO2 ABG HCO3 ABG O2 Saturation ABG Base Excess ABG Hemoglobin Oxyhemoglobin Sodium Potassium Chloride Carbon Dioxide BUN Creatinine Glucose POC Glucose 317 H Hemoglobin A1c 11.0 H Calcium Phosphorus Magnesium Ferritin AST ALT Alkaline Phosphatase Total Creatine Kinase 7255 H CK-MB (CK-2) 79.3 H CK-MB (CK-2) Rel Index Troponin T 5.540 H* D Total Protein Albumin Triglycerides LDL Cholesterol Direct HDL Cholesterol Urine WBC (Auto) Urine Creatinine Crossmatch 03/19/20 03/19/20 03/19/20 08:08 08:08 08:08 WBC 13.3 H RBC Hgb Hct MCV MCHC RDW Plt Count Lymph % (Auto) 10.7 L [place] % (Auto) 8.5 H Lymph # [place] # 1.1 H Seg Neutrophils % 80.0 H Seg Neuts % (Manual) Lymphocytes % (Manual) Nucleated RBC % Seg Neutrophils # 10.6 H Seg Neutrophils # Man Lymphocytes # (Manual) Monocytes # (Manual) Eosinophils # (Manual) PT INR Heparin Anti-Xa Level 0.10 L ABG pH ABG pO2 ABG HCO3 ABG O2 Saturation ABG Base Excess ABG Hemoglobin Oxyhemoglobin Sodium 133 L Potassium 5.1 H Chloride Carbon Dioxide 17 L BUN 23 H Creatinine Glucose 313 H POC Glucose Hemoglobin A1c Calcium Phosphorus Magnesium Ferritin AST ALT Alkaline Phosphatase Total Creatine Kinase CK-MB (CK-2) CK-MB (CK-2) Rel Index Troponin T Total Protein Albumin Triglycerides LDL Cholesterol Direct HDL Cholesterol Urine WBC (Auto) Urine Creatinine Crossmatch 03/19/20 03/19/20 03/19/20 15:40 18:23 21:32 WBC RBC Hgb Hct MCV MCHC RDW Plt Count Lymph % (Auto) [place] % (Auto) Lymph # [place] # Seg Neutrophils % Seg Neuts % (Manual) Lymphocytes % (Manual) Nucleated RBC % Seg Neutrophils # Seg Neutrophils # Man Lymphocytes # (Manual) Monocytes # (Manual) Eosinophils # (Manual) PT INR Heparin Anti-Xa Level < 0.10 L ABG pH ABG pO2 ABG HCO3 18.3 L ABG O2 Saturation ABG Base Excess -5.4 L ABG Hemoglobin 12.2 L Oxyhemoglobin 94.6 L Sodium Potassium Chloride Carbon Dioxide BUN Creatinine Glucose POC Glucose 348 H Hemoglobin A1c Calcium Phosphorus Magnesium Ferritin AST ALT Alkaline Phosphatase Total Creatine Kinase CK-MB (CK-2) CK-MB (CK-2) Rel Index Troponin T Total Protein Albumin Triglycerides LDL Cholesterol Direct HDL Cholesterol Urine WBC (Auto) Urine Creatinine Crossmatch 03/20/20 03/20/20 03/20/20 04:35 05:12 05:12 WBC 11.1 H RBC 3.63 L Hgb 11.0 L Hct 32.7 L D MCV MCHC RDW Plt Count Lymph % (Auto) [place] % (Auto) 8.1 H Lymph # [place] # 0.9 H Seg Neutrophils % 75.8 H Seg Neuts % (Manual) Lymphocytes % (Manual) Nucleated RBC % Seg Neutrophils # 8.4 H Seg Neutrophils # Man Lymphocytes # (Manual) Monocytes # (Manual) Eosinophils # (Manual) PT INR Heparin Anti-Xa Level 0.28 L ABG pH ABG pO2 68.3 L ABG HCO3 ABG O2 Saturation 94.3 L ABG Base Excess ABG Hemoglobin 7.1 L Oxyhemoglobin 92.3 L Sodium Potassium Chloride Carbon Dioxide BUN Creatinine Glucose POC Glucose Hemoglobin A1c Calcium Phosphorus Magnesium Ferritin AST ALT Alkaline Phosphatase Total Creatine Kinase CK-MB (CK-2) CK-MB (CK-2) Rel Index Troponin T Total Protein Albumin Triglycerides LDL Cholesterol Direct HDL Cholesterol Urine WBC (Auto) Urine Creatinine Crossmatch 03/20/20 03/20/20 03/20/20 05:12 07:49 12:15 WBC RBC Hgb Hct MCV MCHC RDW Plt Count Lymph % (Auto) [place] % (Auto) Lymph # [place] # Seg Neutrophils % Seg Neuts % (Manual) Lymphocytes % (Manual) Nucleated RBC % Seg Neutrophils # Seg Neutrophils # Man Lymphocytes # (Manual) Monocytes # (Manual) Eosinophils # (Manual) PT INR Heparin Anti-Xa Level ABG pH ABG pO2 ABG HCO3 ABG O2 Saturation ABG Base Excess ABG Hemoglobin Oxyhemoglobin Sodium 134 L Potassium Chloride Carbon Dioxide 21 L BUN 23 H Creatinine Glucose 275 H POC Glucose 294 H 357 H Hemoglobin A1c Calcium Phosphorus Magnesium Ferritin AST ALT Alkaline Phosphatase Total Creatine Kinase CK-MB (CK-2) CK-MB (CK-2) Rel Index Troponin T 3.200 H* D Total Protein Albumin Triglycerides LDL Cholesterol Direct HDL Cholesterol Urine WBC (Auto) Urine Creatinine Crossmatch 03/20/20 03/20/20 03/21/20 17:16 22:08 04:44 WBC RBC Hgb Hct MCV MCHC RDW Plt Count Lymph % (Auto) [place] % (Auto) Lymph # [place] # Seg Neutrophils % Seg Neuts % (Manual) Lymphocytes % (Manual) Nucleated RBC % Seg Neutrophils # Seg Neutrophils # Man Lymphocytes # (Manual) Monocytes # (Manual) Eosinophils # (Manual) PT INR Heparin Anti-Xa Level ABG pH ABG pO2 ABG HCO3 ABG O2 Saturation ABG Base Excess ABG Hemoglobin Oxyhemoglobin Sodium 136 L Potassium Chloride Carbon Dioxide 18 L BUN 26 H Creatinine Glucose 266 H POC Glucose 327 H 292 H Hemoglobin A1c Calcium 8.1 L Phosphorus Magnesium Ferritin AST ALT Alkaline Phosphatase Total Creatine Kinase CK-MB (CK-2) CK-MB (CK-2) Rel Index Troponin T Total Protein Albumin Triglycerides LDL Cholesterol Direct HDL Cholesterol Urine WBC (Auto) Urine Creatinine Crossmatch 03/21/20 03/21/20 03/21/20 07:50 12:25 15:53 WBC RBC Hgb Hct MCV MCHC RDW Plt Count Lymph % (Auto) [place] % (Auto) Lymph # [place] # Seg Neutrophils % Seg Neuts % (Manual) Lymphocytes % (Manual) Nucleated RBC % Seg Neutrophils # Seg Neutrophils # Man Lymphocytes # (Manual) Monocytes # (Manual) Eosinophils # (Manual) PT INR Heparin Anti-Xa Level ABG pH ABG pO2 ABG HCO3 ABG O2 Saturation ABG Base Excess ABG Hemoglobin Oxyhemoglobin Sodium Potassium Chloride Carbon Dioxide BUN Creatinine Glucose POC Glucose 271 H 314 H 436 H Hemoglobin A1c Calcium Phosphorus Magnesium Ferritin AST ALT Alkaline Phosphatase Total Creatine Kinase CK-MB (CK-2) CK-MB (CK-2) Rel Index Troponin T Total Protein Albumin Triglycerides LDL Cholesterol Direct HDL Cholesterol Urine WBC (Auto) Urine Creatinine Crossmatch 03/21/20 03/21/20 03/22/20 17:44 21:55 04:33 WBC RBC Hgb 10.0 L Hct 29.4 L MCV MCHC RDW Plt Count Lymph % (Auto) [place] % (Auto) Lymph # [place] # Seg Neutrophils % Seg Neuts % (Manual) Lymphocytes % (Manual) Nucleated RBC % Seg Neutrophils # Seg Neutrophils # Man Lymphocytes # (Manual) Monocytes # (Manual) Eosinophils # (Manual) PT INR Heparin Anti-Xa Level ABG pH ABG pO2 ABG HCO3 ABG O2 Saturation ABG Base Excess ABG Hemoglobin Oxyhemoglobin Sodium Potassium Chloride Carbon Dioxide BUN Creatinine Glucose POC Glucose 362 H 329 H Hemoglobin A1c Calcium Phosphorus Magnesium Ferritin AST ALT Alkaline Phosphatase Total Creatine Kinase CK-MB (CK-2) CK-MB (CK-2) Rel Index Troponin T Total Protein Albumin Triglycerides LDL Cholesterol Direct HDL Cholesterol Urine WBC (Auto) Urine Creatinine Crossmatch 03/22/20 03/22/20 03/22/20 08:57 14:12 19:57 WBC RBC Hgb Hct MCV MCHC RDW Plt Count Lymph % (Auto) [place] % (Auto) Lymph # [place] # Seg Neutrophils % Seg Neuts % (Manual) Lymphocytes % (Manual) Nucleated RBC % Seg Neutrophils # Seg Neutrophils # Man Lymphocytes # (Manual) Monocytes # (Manual) Eosinophils # (Manual) PT INR Heparin Anti-Xa Level ABG pH ABG pO2 ABG HCO3 ABG O2 Saturation ABG Base Excess ABG Hemoglobin Oxyhemoglobin Sodium Potassium Chloride Carbon Dioxide BUN Creatinine Glucose POC Glucose 284 H 319 H 356 H Hemoglobin A1c Calcium Phosphorus Magnesium Ferritin AST ALT Alkaline Phosphatase Total Creatine Kinase CK-MB (CK-2) CK-MB (CK-2) Rel Index Troponin T Total Protein Albumin Triglycerides LDL Cholesterol Direct HDL Cholesterol Urine WBC (Auto) Urine Creatinine Crossmatch 03/22/20 03/23/20 03/23/20 21:44 08:18 12:46 WBC RBC Hgb Hct MCV MCHC RDW Plt Count Lymph % (Auto) [place] % (Auto) Lymph # [place] # Seg Neutrophils % Seg Neuts % (Manual) Lymphocytes % (Manual) Nucleated RBC % Seg Neutrophils # Seg Neutrophils # Man Lymphocytes # (Manual) Monocytes # (Manual) Eosinophils # (Manual) PT INR Heparin Anti-Xa Level ABG pH ABG pO2 ABG HCO3 ABG O2 Saturation ABG Base Excess ABG Hemoglobin Oxyhemoglobin Sodium Potassium Chloride Carbon Dioxide BUN Creatinine Glucose POC Glucose 336 H 215 H 262 H Hemoglobin A1c Calcium Phosphorus Magnesium Ferritin AST ALT Alkaline Phosphatase Total Creatine Kinase CK-MB (CK-2) CK-MB (CK-2) Rel Index Troponin T Total Protein Albumin Triglycerides LDL Cholesterol Direct HDL Cholesterol Urine WBC (Auto) Urine Creatinine Crossmatch 03/23/20 03/23/20 03/24/20 15:56 22:05 02:35 WBC RBC Hgb 9.0 L Hct 25.8 L MCV MCHC RDW Plt Count Lymph % (Auto) [place] % (Auto) Lymph # [place] # Seg Neutrophils % Seg Neuts % (Manual) Lymphocytes % (Manual) Nucleated RBC % Seg Neutrophils # Seg Neutrophils # Man Lymphocytes # (Manual) Monocytes # (Manual) Eosinophils # (Manual) PT INR Heparin Anti-Xa Level ABG pH ABG pO2 ABG HCO3 ABG O2 Saturation ABG Base Excess ABG Hemoglobin Oxyhemoglobin Sodium Potassium Chloride Carbon Dioxide BUN Creatinine Glucose POC Glucose 246 H 322 H Hemoglobin A1c Calcium Phosphorus Magnesium Ferritin AST ALT Alkaline Phosphatase Total Creatine Kinase CK-MB (CK-2) CK-MB (CK-2) Rel Index Troponin T Total Protein Albumin Triglycerides LDL Cholesterol Direct HDL Cholesterol Urine WBC (Auto) Urine Creatinine Crossmatch 03/24/20 03/24/20 03/24/20 07:38 11:45 16:02 WBC RBC Hgb Hct MCV MCHC RDW Plt Count Lymph % (Auto) [place] % (Auto) Lymph # [place] # Seg Neutrophils % Seg Neuts % (Manual) Lymphocytes % (Manual) Nucleated RBC % Seg Neutrophils # Seg Neutrophils # Man Lymphocytes # (Manual) Monocytes # (Manual) Eosinophils # (Manual) PT INR Heparin Anti-Xa Level ABG pH ABG pO2 ABG HCO3 ABG O2 Saturation ABG Base Excess ABG Hemoglobin Oxyhemoglobin Sodium Potassium Chloride Carbon Dioxide BUN Creatinine Glucose POC Glucose 289 H 257 H 150 H Hemoglobin A1c Calcium Phosphorus Magnesium Ferritin AST ALT Alkaline Phosphatase Total Creatine Kinase CK-MB (CK-2) CK-MB (CK-2) Rel Index Troponin T Total Protein Albumin Triglycerides LDL Cholesterol Direct HDL Cholesterol Urine WBC (Auto) Urine Creatinine Crossmatch 03/24/20 03/25/20 03/25/20 21:24 04:06 07:39 WBC RBC Hgb Hct MCV MCHC RDW Plt Count Lymph % (Auto) [place] % (Auto) Lymph # [place] # Seg Neutrophils % Seg Neuts % (Manual) Lymphocytes % (Manual) Nucleated RBC % Seg Neutrophils # Seg Neutrophils # Man Lymphocytes # (Manual) Monocytes # (Manual) Eosinophils # (Manual) PT INR Heparin Anti-Xa Level 0.10 L ABG pH ABG pO2 ABG HCO3 ABG O2 Saturation ABG Base Excess ABG Hemoglobin Oxyhemoglobin Sodium Potassium Chloride Carbon Dioxide BUN Creatinine Glucose POC Glucose 228 H 332 H Hemoglobin A1c Calcium Phosphorus Magnesium Ferritin AST ALT Alkaline Phosphatase Total Creatine Kinase CK-MB (CK-2) CK-MB (CK-2) Rel Index Troponin T Total Protein Albumin Triglycerides LDL Cholesterol Direct HDL Cholesterol Urine WBC (Auto) Urine Creatinine Crossmatch 03/25/20 03/25/20 03/25/20 08:13 09:30 11:59 WBC 13.1 H RBC 2.82 L Hgb 8.5 L Hct 26.1 L MCV MCHC RDW Plt Count Lymph % (Auto) [place] % (Auto) Lymph # [place] # Seg Neutrophils % Seg Neuts % (Manual) Lymphocytes % (Manual) Nucleated RBC % Seg Neutrophils # Seg Neutrophils # Man Lymphocytes # (Manual) Monocytes # (Manual) Eosinophils # (Manual) PT INR Heparin Anti-Xa Level ABG pH ABG pO2 ABG HCO3 ABG O2 Saturation ABG Base Excess ABG Hemoglobin Oxyhemoglobin Sodium 131 L Potassium 5.3 H Chloride Carbon Dioxide 20 L BUN 39 H Creatinine 1.4 H Glucose 313 H POC Glucose 273 H Hemoglobin A1c Calcium 8.1 L Phosphorus Magnesium Ferritin AST ALT Alkaline Phosphatase Total Creatine Kinase CK-MB (CK-2) CK-MB (CK-2) Rel Index Troponin T Total Protein Albumin Triglycerides LDL Cholesterol Direct HDL Cholesterol Urine WBC (Auto) Urine Creatinine Crossmatch 03/25/20 03/25/20 03/25/20 13:54 15:58 18:21 WBC RBC Hgb Hct MCV MCHC RDW Plt Count Lymph % (Auto) [place] % (Auto) Lymph # [place] # Seg Neutrophils % Seg Neuts % (Manual) Lymphocytes % (Manual) Nucleated RBC % Seg Neutrophils # Seg Neutrophils # Man Lymphocytes # (Manual) Monocytes # (Manual) Eosinophils # (Manual) PT INR Heparin Anti-Xa Level ABG pH ABG pO2 ABG HCO3 ABG O2 Saturation ABG Base Excess ABG Hemoglobin Oxyhemoglobin Sodium Potassium Chloride Carbon Dioxide BUN Creatinine Glucose POC Glucose 246 H 235 H 185 H Hemoglobin A1c Calcium Phosphorus Magnesium Ferritin AST ALT Alkaline Phosphatase Total Creatine Kinase CK-MB (CK-2) CK-MB (CK-2) Rel Index Troponin T Total Protein Albumin Triglycerides LDL Cholesterol Direct HDL Cholesterol Urine WBC (Auto) Urine Creatinine Crossmatch 03/25/20 03/26/20 03/26/20 20:45 05:15 06:59 WBC 17.4 H 15.6 H RBC 3.05 L 3.05 L Hgb 9.1 L 9.2 L Hct 28.2 L 27.9 L MCV MCHC RDW Plt Count Lymph % (Auto) 8.9 L 8.9 L [place] % (Auto) Lymph # [place] # 1.0 H Seg Neutrophils % 84.4 H 84.8 H Seg Neuts % (Manual) Lymphocytes % (Manual) Nucleated RBC % Seg Neutrophils # 14.7 H 13.2 H Seg Neutrophils # Man Lymphocytes # (Manual) Monocytes # (Manual) Eosinophils # (Manual) PT INR Heparin Anti-Xa Level ABG pH ABG pO2 ABG HCO3 ABG O2 Saturation ABG Base Excess ABG Hemoglobin Oxyhemoglobin Sodium Potassium Chloride Carbon Dioxide BUN Creatinine Glucose POC Glucose 178 H Hemoglobin A1c Calcium Phosphorus Magnesium Ferritin AST ALT Alkaline Phosphatase Total Creatine Kinase CK-MB (CK-2) CK-MB (CK-2) Rel Index Troponin T Total Protein Albumin Triglycerides LDL Cholesterol Direct HDL Cholesterol Urine WBC (Auto) Urine Creatinine Crossmatch 03/26/20 03/26/20 03/26/20 06:59 07:43 11:56 WBC RBC Hgb Hct MCV MCHC RDW Plt Count Lymph % (Auto) [place] % (Auto) Lymph # [place] # Seg Neutrophils % Seg Neuts % (Manual) Lymphocytes % (Manual) Nucleated RBC % Seg Neutrophils # Seg Neutrophils # Man Lymphocytes # (Manual) Monocytes # (Manual) Eosinophils # (Manual) PT INR Heparin Anti-Xa Level ABG pH ABG pO2 ABG HCO3 ABG O2 Saturation ABG Base Excess ABG Hemoglobin Oxyhemoglobin Sodium 131 L Potassium 5.8 H Chloride Carbon Dioxide 16 L BUN 42 H Creatinine 1.4 H Glucose 163 H POC Glucose 170 H 198 H Hemoglobin A1c Calcium 8.0 L Phosphorus Magnesium Ferritin AST ALT Alkaline Phosphatase Total Creatine Kinase CK-MB (CK-2) CK-MB (CK-2) Rel Index Troponin T Total Protein Albumin Triglycerides LDL Cholesterol Direct HDL Cholesterol Urine WBC (Auto) Urine Creatinine Crossmatch 03/26/20 03/26/20 03/26/20 13:58 16:16 21:00 WBC RBC Hgb Hct MCV MCHC RDW Plt Count Lymph % (Auto) [place] % (Auto) Lymph # [place] # Seg Neutrophils % Seg Neuts % (Manual) Lymphocytes % (Manual) Nucleated RBC % Seg Neutrophils # Seg Neutrophils # Man Lymphocytes # (Manual) Monocytes # (Manual) Eosinophils # (Manual) PT INR Heparin Anti-Xa Level ABG pH ABG pO2 ABG HCO3 ABG O2 Saturation ABG Base Excess ABG Hemoglobin Oxyhemoglobin Sodium 128 L Potassium 6.0 H Chloride Carbon Dioxide 15 L BUN 45 H Creatinine 1.4 H Glucose 190 H POC Glucose 184 H 192 H Hemoglobin A1c Calcium 8.2 L Phosphorus Magnesium Ferritin AST ALT Alkaline Phosphatase Total Creatine Kinase CK-MB (CK-2) CK-MB (CK-2) Rel Index Troponin T Total Protein Albumin Triglycerides LDL Cholesterol Direct HDL Cholesterol Urine WBC (Auto) Urine Creatinine Crossmatch 03/27/20 03/27/20 03/27/20 08:32 11:51 14:39 WBC 22.9 H RBC 2.68 L Hgb 7.9 L Hct 24.7 L MCV MCHC RDW Plt Count Lymph % (Auto) [place] % (Auto) Lymph # [place] # Seg Neutrophils % Seg Neuts % (Manual) Lymphocytes % (Manual) Nucleated RBC % Seg Neutrophils # Seg Neutrophils # Man Lymphocytes # (Manual) Monocytes # (Manual) Eosinophils # (Manual) PT INR Heparin Anti-Xa Level ABG pH ABG pO2 ABG HCO3 ABG O2 Saturation ABG Base Excess ABG Hemoglobin Oxyhemoglobin Sodium Potassium Chloride Carbon Dioxide BUN Creatinine Glucose POC Glucose 233 H 252 H Hemoglobin A1c Calcium Phosphorus Magnesium Ferritin AST ALT Alkaline Phosphatase Total Creatine Kinase CK-MB (CK-2) CK-MB (CK-2) Rel Index Troponin T Total Protein Albumin Triglycerides LDL Cholesterol Direct HDL Cholesterol Urine WBC (Auto) Urine Creatinine Crossmatch 03/27/20 03/27/20 03/27/20 14:39 15:19 21:35 WBC RBC Hgb Hct MCV MCHC RDW Plt Count Lymph % (Auto) [place] % (Auto) Lymph # [place] # Seg Neutrophils % Seg Neuts % (Manual) Lymphocytes % (Manual) Nucleated RBC % Seg Neutrophils # Seg Neutrophils # Man Lymphocytes # (Manual) Monocytes # (Manual) Eosinophils # (Manual) PT INR Heparin Anti-Xa Level ABG pH ABG pO2 ABG HCO3 ABG O2 Saturation ABG Base Excess ABG Hemoglobin Oxyhemoglobin Sodium 133 L Potassium 5.5 H Chloride Carbon Dioxide 16 L BUN 46 H Creatinine 1.4 H Glucose 225 H POC Glucose 239 H 202 H Hemoglobin A1c Calcium 8.2 L Phosphorus Magnesium Ferritin AST ALT Alkaline Phosphatase Total Creatine Kinase CK-MB (CK-2) CK-MB (CK-2) Rel Index Troponin T Total Protein Albumin Triglycerides LDL Cholesterol Direct HDL Cholesterol Urine WBC (Auto) Urine Creatinine Crossmatch 03/28/20 03/28/20 03/28/20 07:39 07:39 08:36 WBC 22.4 H RBC 2.71 L Hgb 7.9 L Hct 24.5 L MCV MCHC RDW Plt Count Lymph % (Auto) [place] % (Auto) Lymph # [place] # Seg Neutrophils % Seg Neuts % (Manual) 88.0 H Lymphocytes % (Manual) 5.0 L Nucleated RBC % Seg Neutrophils # Seg Neutrophils # Man 19.7 H Lymphocytes # (Manual) 1.1 L Monocytes # (Manual) 1.6 H Eosinophils # (Manual) PT INR Heparin Anti-Xa Level ABG pH ABG pO2 ABG HCO3 ABG O2 Saturation ABG Base Excess ABG Hemoglobin Oxyhemoglobin Sodium 134 L Potassium Chloride Carbon Dioxide 19 L BUN 47 H Creatinine Glucose 240 H POC Glucose 253 H Hemoglobin A1c Calcium 7.8 L Phosphorus Magnesium Ferritin AST ALT Alkaline Phosphatase Total Creatine Kinase CK-MB (CK-2) CK-MB (CK-2) Rel Index Troponin T Total Protein Albumin Triglycerides LDL Cholesterol Direct HDL Cholesterol Urine WBC (Auto) Urine Creatinine Crossmatch 03/28/20 03/28/2020 11:54 17:08 21:17 WBC RBC Hgb Hct MCV MCHC RDW Plt Count Lymph % (Auto) [place] % (Auto) Lymph # [place] # Seg Neutrophils % Seg Neuts % (Manual) Lymphocytes % (Manual) Nucleated RBC % Seg Neutrophils # Seg Neutrophils # Man Lymphocytes # (Manual) Monocytes # (Manual) Eosinophils # (Manual) PT INR Heparin Anti-Xa Level ABG pH ABG pO2 ABG HCO3 ABG O2 Saturation ABG Base Excess ABG Hemoglobin Oxyhemoglobin Sodium Potassium Chloride Carbon Dioxide BUN Creatinine Glucose POC Glucose 306 H 178 H 186 H Hemoglobin A1c Calcium Phosphorus Magnesium Ferritin AST ALT Alkaline Phosphatase Total Creatine Kinase CK-MB (CK-2) CK-MB (CK-2) Rel Index Troponin T Total Protein Albumin Triglycerides LDL Cholesterol Direct HDL Cholesterol Urine WBC (Auto) Urine Creatinine Crossmatch 03/29/20 03/29/20 03/29/20 08:32 12:04 14:19 WBC 21.5 H RBC 2.82 L Hgb 8.4 L Hct 26.1 L MCV MCHC RDW Plt Count Lymph % (Auto) [place] % (Auto) Lymph # [place] # Seg Neutrophils % Seg Neuts % (Manual) 85.0 H Lymphocytes % (Manual) 11.0 L Nucleated RBC % 3.0 H Seg Neutrophils # Seg Neutrophils # Man 18.3 H Lymphocytes # (Manual) Monocytes # (Manual) Eosinophils # (Manual) 0.6 H PT INR Heparin Anti-Xa Level ABG pH ABG pO2 ABG HCO3 ABG O2 Saturation ABG Base Excess ABG Hemoglobin Oxyhemoglobin Sodium Potassium Chloride Carbon Dioxide BUN Creatinine Glucose POC Glucose 110 H 263 H Hemoglobin A1c Calcium Phosphorus Magnesium Ferritin AST ALT Alkaline Phosphatase Total Creatine Kinase CK-MB (CK-2) CK-MB (CK-2) Rel Index Troponin T Total Protein Albumin Triglycerides LDL Cholesterol Direct HDL Cholesterol Urine WBC (Auto) Urine Creatinine Crossmatch 03/29/20 03/29/20 03/30/20 16:17 22:57 11:00 WBC RBC Hgb Hct MCV MCHC RDW Plt Count Lymph % (Auto) [place] % (Auto) Lymph # [place] # Seg Neutrophils % Seg Neuts % (Manual) Lymphocytes % (Manual) Nucleated RBC % Seg Neutrophils # Seg Neutrophils # Man Lymphocytes # (Manual) Monocytes # (Manual) Eosinophils # (Manual) PT INR Heparin Anti-Xa Level ABG pH ABG pO2 ABG HCO3 ABG O2 Saturation ABG Base Excess ABG Hemoglobin Oxyhemoglobin Sodium Potassium Chloride Carbon Dioxide BUN Creatinine Glucose POC Glucose 109 H 194 H 129 H Hemoglobin A1c Calcium Phosphorus Magnesium Ferritin AST ALT Alkaline Phosphatase Total Creatine Kinase CK-MB (CK-2) CK-MB (CK-2) Rel Index Troponin T Total Protein Albumin Triglycerides LDL Cholesterol Direct HDL Cholesterol Urine WBC (Auto) Urine Creatinine Crossmatch 03/30/20 03/30/20 03/31/20 15:16 21:54 04:27 WBC 15.8 H RBC 2.62 L Hgb 7.7 L Hct 24.1 L MCV MCHC RDW Plt Count Lymph % (Auto) 9.4 L [place] % (Auto) Lymph # [place] # Seg Neutrophils % 84.4 H Seg Neuts % (Manual) Lymphocytes % (Manual) Nucleated RBC % Seg Neutrophils # 13.3 H Seg Neutrophils # Man Lymphocytes # (Manual) Monocytes # (Manual) Eosinophils # (Manual) PT INR Heparin Anti-Xa Level ABG pH ABG pO2 ABG HCO3 ABG O2 Saturation ABG Base Excess ABG Hemoglobin Oxyhemoglobin Sodium Potassium Chloride Carbon Dioxide BUN Creatinine Glucose POC Glucose 115 H 166 H Hemoglobin A1c Calcium Phosphorus Magnesium Ferritin AST ALT Alkaline Phosphatase Total Creatine Kinase CK-MB (CK-2) CK-MB (CK-2) Rel Index Troponin T Total Protein Albumin Triglycerides LDL Cholesterol Direct HDL Cholesterol Urine WBC (Auto) Urine Creatinine Crossmatch 03/31/20 03/31/20 03/31/20 04:27 07:37 11:46 WBC RBC Hgb Hct MCV MCHC RDW Plt Count Lymph % (Auto) [place] % (Auto) Lymph # [place] # Seg Neutrophils % Seg Neuts % (Manual) Lymphocytes % (Manual) Nucleated RBC % Seg Neutrophils # Seg Neutrophils # Man Lymphocytes # (Manual) Monocytes # (Manual) Eosinophils # (Manual) PT INR Heparin Anti-Xa Level ABG pH ABG pO2 ABG HCO3 ABG O2 Saturation ABG Base Excess ABG Hemoglobin Oxyhemoglobin Sodium 133 L Potassium Chloride 96.6 L Carbon Dioxide 18 L BUN 75 H Creatinine 2.5 H D Glucose 129 H POC Glucose 156 H 224 H Hemoglobin A1c Calcium 8.0 L Phosphorus Magnesium Ferritin AST ALT Alkaline Phosphatase Total Creatine Kinase CK-MB (CK-2) CK-MB (CK-2) Rel Index Troponin T Total Protein Albumin Triglycerides LDL Cholesterol Direct HDL Cholesterol Urine WBC (Auto) Urine Creatinine Crossmatch 04/01/20 04/01/20 04/01/20 08:34 10:52 10:52 WBC 12.9 H RBC 2.75 L Hgb 8.2 L Hct 24.8 L MCV MCHC RDW Plt Count Lymph % (Auto) 10.6 L [place] % (Auto) Lymph # [place] # Seg Neutrophils % 83.7 H Seg Neuts % (Manual) Lymphocytes % (Manual) Nucleated RBC % Seg Neutrophils # 10.8 H Seg Neutrophils # Man Lymphocytes # (Manual) Monocytes # (Manual) Eosinophils # (Manual) PT INR Heparin Anti-Xa Level ABG pH ABG pO2 ABG HCO3 ABG O2 Saturation ABG Base Excess ABG Hemoglobin Oxyhemoglobin Sodium 131 L Potassium Chloride 96.1 L Carbon Dioxide 17 L BUN 77 H Creatinine 2.3 H Glucose 205 H POC Glucose 110 H Hemoglobin A1c Calcium 7.9 L Phosphorus Magnesium Ferritin AST ALT Alkaline Phosphatase Total Creatine Kinase CK-MB (CK-2) CK-MB (CK-2) Rel Index Troponin T Total Protein Albumin Triglycerides LDL Cholesterol Direct HDL Cholesterol Urine WBC (Auto) Urine Creatinine Crossmatch 04/01/20 04/01/20 04/01/20 12:15 17:22 20:47 WBC RBC Hgb Hct MCV MCHC RDW Plt Count Lymph % (Auto) [place] % (Auto) Lymph # [place] # Seg Neutrophils % Seg Neuts % (Manual) Lymphocytes % (Manual) Nucleated RBC % Seg Neutrophils # Seg Neutrophils # Man Lymphocytes # (Manual) Monocytes # (Manual) Eosinophils # (Manual) PT INR Heparin Anti-Xa Level ABG pH ABG pO2 ABG HCO3 ABG O2 Saturation ABG Base Excess ABG Hemoglobin Oxyhemoglobin Sodium Potassium Chloride Carbon Dioxide BUN Creatinine Glucose POC Glucose 201 H 219 H 156 H Hemoglobin A1c Calcium Phosphorus Magnesium Ferritin AST ALT Alkaline Phosphatase Total Creatine Kinase CK-MB (CK-2) CK-MB (CK-2) Rel Index Troponin T Total Protein Albumin Triglycerides LDL Cholesterol Direct HDL Cholesterol Urine WBC (Auto) Urine Creatinine Crossmatch 04/02/20 04/02/20 04/02/20 05:44 05:44 11:32 WBC 15.8 H RBC 2.81 L Hgb 8.2 L Hct 25.7 L MCV MCHC RDW Plt Count Lymph % (Auto) [place] % (Auto) Lymph # [place] # 0.9 H Seg Neutrophils % 77.7 H Seg Neuts % (Manual) Lymphocytes % (Manual) Nucleated RBC % Seg Neutrophils # 12.3 H Seg Neutrophils # Man Lymphocytes # (Manual) Monocytes # (Manual) Eosinophils # (Manual) PT INR Heparin Anti-Xa Level ABG pH ABG pO2 ABG HCO3 ABG O2 Saturation ABG Base Excess ABG Hemoglobin Oxyhemoglobin Sodium 134 L Potassium Chloride Carbon Dioxide 19 L BUN 76 H Creatinine 2.0 H Glucose POC Glucose 116 H Hemoglobin A1c Calcium 8.0 L Phosphorus Magnesium Ferritin AST 291 H ALT 169 H Alkaline Phosphatase 256 H Total Creatine Kinase CK-MB (CK-2) CK-MB (CK-2) Rel Index Troponin T Total Protein 6.1 L Albumin 2.2 L Triglycerides LDL Cholesterol Direct HDL Cholesterol Urine WBC (Auto) Urine Creatinine Crossmatch 04/02/20 04/02/20 04/03/20 16:56 22:03 08:13 WBC RBC Hgb Hct MCV MCHC RDW Plt Count Lymph % (Auto) [place] % (Auto) Lymph # [place] # Seg Neutrophils % Seg Neuts % (Manual) Lymphocytes % (Manual) Nucleated RBC % Seg Neutrophils # Seg Neutrophils # Man Lymphocytes # (Manual) Monocytes # (Manual) Eosinophils # (Manual) PT INR Heparin Anti-Xa Level ABG pH ABG pO2 ABG HCO3 ABG O2 Saturation ABG Base Excess ABG Hemoglobin Oxyhemoglobin Sodium Potassium Chloride Carbon Dioxide BUN Creatinine Glucose POC Glucose 141 H 152 H 126 H Hemoglobin A1c Calcium Phosphorus Magnesium Ferritin AST ALT Alkaline Phosphatase Total Creatine Kinase CK-MB (CK-2) CK-MB (CK-2) Rel Index Troponin T Total Protein Albumin Triglycerides LDL Cholesterol Direct HDL Cholesterol Urine WBC (Auto) Urine Creatinine Crossmatch 04/03/20 04/03/20 04/03/20 12:11 16:26 21:33 WBC RBC Hgb Hct MCV MCHC RDW Plt Count Lymph % (Auto) [place] % (Auto) Lymph # [place] # Seg Neutrophils % Seg Neuts % (Manual) Lymphocytes % (Manual) Nucleated RBC % Seg Neutrophils # Seg Neutrophils # Man Lymphocytes # (Manual) Monocytes # (Manual) Eosinophils # (Manual) PT INR Heparin Anti-Xa Level ABG pH ABG pO2 ABG HCO3 ABG O2 Saturation ABG Base Excess ABG Hemoglobin Oxyhemoglobin Sodium Potassium Chloride Carbon Dioxide BUN Creatinine Glucose POC Glucose 139 H 164 H 147 H Hemoglobin A1c Calcium Phosphorus Magnesium Ferritin AST ALT Alkaline Phosphatase Total Creatine Kinase CK-MB (CK-2) CK-MB (CK-2) Rel Index Troponin T Total Protein Albumin Triglycerides LDL Cholesterol Direct HDL Cholesterol Urine WBC (Auto) Urine Creatinine Crossmatch 04/04/20 04/04/20 04/04/20 04:29 04:29 11:29 WBC 12.3 H RBC 2.88 L Hgb 8.4 L Hct 26.1 L MCV MCHC RDW Plt Count Lymph % (Auto) [place] % (Auto) Lymph # [place] # Seg Neutrophils % 75.4 H Seg Neuts % (Manual) Lymphocytes % (Manual) Nucleated RBC % Seg Neutrophils # 9.3 H Seg Neutrophils # Man Lymphocytes # (Manual) Monocytes # (Manual) Eosinophils # (Manual) PT INR Heparin Anti-Xa Level ABG pH ABG pO2 ABG HCO3 ABG O2 Saturation ABG Base Excess ABG Hemoglobin Oxyhemoglobin Sodium 136 L Potassium Chloride Carbon Dioxide 19 L BUN 71 H Creatinine 1.7 H Glucose POC Glucose 108 H Hemoglobin A1c Calcium 8.0 L Phosphorus Magnesium Ferritin AST 673 H ALT 252 H Alkaline Phosphatase 311 H Total Creatine Kinase CK-MB (CK-2) CK-MB (CK-2) Rel Index Troponin T Total Protein Albumin 2.2 L Triglycerides LDL Cholesterol Direct HDL Cholesterol Urine WBC (Auto) Urine Creatinine Crossmatch 04/04/20 04/04/20 04/05/20 16:34 20:58 03:54 WBC 13.7 H RBC 3.03 L Hgb 8.7 L Hct 27.9 L MCV MCHC 31 L RDW 15.5 H Plt Count Lymph % (Auto) [place] % (Auto) Lymph # [place] # Seg Neutrophils % 78.9 H Seg Neuts % (Manual) Lymphocytes % (Manual) Nucleated RBC % Seg Neutrophils # 10.8 H Seg Neutrophils # Man Lymphocytes # (Manual) Monocytes # (Manual) Eosinophils # (Manual) PT INR Heparin Anti-Xa Level ABG pH ABG pO2 ABG HCO3 ABG O2 Saturation ABG Base Excess ABG Hemoglobin Oxyhemoglobin Sodium Potassium Chloride Carbon Dioxide BUN Creatinine Glucose POC Glucose 151 H 131 H Hemoglobin A1c Calcium Phosphorus Magnesium Ferritin AST ALT Alkaline Phosphatase Total Creatine Kinase CK-MB (CK-2) CK-MB (CK-2) Rel Index Troponin T Total Protein Albumin Triglycerides LDL Cholesterol Direct HDL Cholesterol Urine WBC (Auto) Urine Creatinine Crossmatch 04/05/20 04/05/20 04/05/20 03:54 15:58 15:58 WBC RBC Hgb Hct MCV MCHC RDW Plt Count Lymph % (Auto) [place] % (Auto) Lymph # [place] # Seg Neutrophils % Seg Neuts % (Manual) Lymphocytes % (Manual) Nucleated RBC % Seg Neutrophils # Seg Neutrophils # Man Lymphocytes # (Manual) Monocytes # (Manual) Eosinophils # (Manual) PT INR Heparin Anti-Xa Level ABG pH ABG pO2 67.1 L ABG HCO3 26.1 H ABG O2 Saturation 93.4 L ABG Base Excess ABG Hemoglobin 9.0 L Oxyhemoglobin 91.6 L Sodium 136 L Potassium 5.5 H Chloride Carbon Dioxide 21 L BUN 79 H Creatinine 1.9 H Glucose 63 L POC Glucose 129 H Hemoglobin A1c Calcium 8.2 L Phosphorus Magnesium Ferritin AST 696 H ALT 262 H Alkaline Phosphatase 325 H Total Creatine Kinase CK-MB (CK-2) CK-MB (CK-2) Rel Index Troponin T Total Protein Albumin 2.3 L Triglycerides LDL Cholesterol Direct HDL Cholesterol Urine WBC (Auto) Urine Creatinine Crossmatch 04/05/20 04/06/20 04/06/20 22:33 07:14 07:14 WBC RBC Hgb Hct MCV MCHC RDW Plt Count Lymph % (Auto) [place] % (Auto) Lymph # [place] # Seg Neutrophils % Seg Neuts % (Manual) Lymphocytes % (Manual) Nucleated RBC % Seg Neutrophils # Seg Neutrophils # Man Lymphocytes # (Manual) Monocytes # (Manual) Eosinophils # (Manual) PT INR Heparin Anti-Xa Level ABG pH ABG pO2 ABG HCO3 ABG O2 Saturation ABG Base Excess ABG Hemoglobin Oxyhemoglobin Sodium Potassium 5.6 H Chloride Carbon Dioxide BUN 83 H Creatinine 1.9 H Glucose 202 H POC Glucose 253 H Hemoglobin A1c Calcium Phosphorus Magnesium Ferritin 444.2 H AST 469 H ALT 237 H Alkaline Phosphatase 332 H Total Creatine Kinase CK-MB (CK-2) CK-MB (CK-2) Rel Index Troponin T Total Protein Albumin 2.2 L Triglycerides LDL Cholesterol Direct HDL Cholesterol Urine WBC (Auto) Urine Creatinine Crossmatch 04/06/20 04/06/20 04/06/20 08:23 12:00 13:56 WBC RBC Hgb Hct MCV MCHC RDW Plt Count Lymph % (Auto) [place] % (Auto) Lymph # [place] # Seg Neutrophils % Seg Neuts % (Manual) Lymphocytes % (Manual) Nucleated RBC % Seg Neutrophils # Seg Neutrophils # Man Lymphocytes # (Manual) Monocytes # (Manual) Eosinophils # (Manual) PT 27.0 H INR 2.44 H Heparin Anti-Xa Level ABG pH ABG pO2 ABG HCO3 ABG O2 Saturation ABG Base Excess ABG Hemoglobin Oxyhemoglobin Sodium Potassium Chloride Carbon Dioxide BUN Creatinine Glucose POC Glucose 226 H 176 H Hemoglobin A1c Calcium Phosphorus Magnesium Ferritin AST ALT Alkaline Phosphatase Total Creatine Kinase CK-MB (CK-2) CK-MB (CK-2) Rel Index Troponin T Total Protein Albumin Triglycerides LDL Cholesterol Direct HDL Cholesterol Urine WBC (Auto) Urine Creatinine Crossmatch 04/06/20 04/07/20 04/07/20 20:45 04:58 04:58 WBC RBC Hgb Hct MCV MCHC RDW Plt Count Lymph % (Auto) [place] % (Auto) Lymph # [place] # Seg Neutrophils % Seg Neuts % (Manual) Lymphocytes % (Manual) Nucleated RBC % Seg Neutrophils # Seg Neutrophils # Man Lymphocytes # (Manual) Monocytes # (Manual) Eosinophils # (Manual) PT 30.9 H INR 2.89 H Heparin Anti-Xa Level ABG pH ABG pO2 ABG HCO3 ABG O2 Saturation ABG Base Excess ABG Hemoglobin Oxyhemoglobin Sodium Potassium 6.0 H Chloride Carbon Dioxide BUN 85 H Creatinine 2.1 H Glucose 177 H POC Glucose 139 H Hemoglobin A1c Calcium Phosphorus Magnesium Ferritin AST 351 H ALT 215 H Alkaline Phosphatase 332 H Total Creatine Kinase CK-MB (CK-2) CK-MB (CK-2) Rel Index Troponin T Total Protein Albumin 2.7 L Triglycerides LDL Cholesterol Direct HDL Cholesterol Urine WBC (Auto) Urine Creatinine Crossmatch 04/07/20 04/07/20 04/08/20 07:53 11:51 04:44 WBC 11.7 H RBC 3.07 L Hgb 9.1 L Hct 28.9 L MCV MCHC RDW 16.8 H Plt Count Lymph % (Auto) 12.4 L [place] % (Auto) Lymph # [place] # Seg Neutrophils % 83.3 H Seg Neuts % (Manual) Lymphocytes % (Manual) Nucleated RBC % Seg Neutrophils # 9.7 H Seg Neutrophils # Man Lymphocytes # (Manual) Monocytes # (Manual) Eosinophils # (Manual) PT INR Heparin Anti-Xa Level ABG pH ABG pO2 ABG HCO3 ABG O2 Saturation ABG Base Excess ABG Hemoglobin Oxyhemoglobin Sodium Potassium Chloride Carbon Dioxide BUN Creatinine Glucose POC Glucose 167 H 120 H Hemoglobin A1c Calcium Phosphorus Magnesium Ferritin AST ALT Alkaline Phosphatase Total Creatine Kinase CK-MB (CK-2) CK-MB (CK-2) Rel Index Troponin T Total Protein Albumin Triglycerides LDL Cholesterol Direct HDL Cholesterol Urine WBC (Auto) Urine Creatinine Crossmatch 04/08/20 04/08/20 04/08/20 04:44 07:19 08:43 WBC RBC Hgb Hct MCV MCHC RDW Plt Count Lymph % (Auto) [place] % (Auto) Lymph # [place] # Seg Neutrophils % Seg Neuts % (Manual) Lymphocytes % (Manual) Nucleated RBC % Seg Neutrophils # Seg Neutrophils # Man Lymphocytes # (Manual) Monocytes # (Manual) Eosinophils # (Manual) PT INR Heparin Anti-Xa Level ABG pH ABG pO2 ABG HCO3 ABG O2 Saturation ABG Base Excess ABG Hemoglobin Oxyhemoglobin Sodium Potassium 6.3 H* Chloride Carbon Dioxide 21 L BUN 89 H Creatinine 1.9 H Glucose 63 L POC Glucose 65 L 168 H Hemoglobin A1c Calcium Phosphorus Magnesium Ferritin AST 370 H ALT 211 H Alkaline Phosphatase 320 H Total Creatine Kinase CK-MB (CK-2) CK-MB (CK-2) Rel Index Troponin T Total Protein Albumin 2.6 L Triglycerides LDL Cholesterol Direct HDL Cholesterol Urine WBC (Auto) Urine Creatinine Crossmatch 04/08/20 04/08/20 04/08/20 12:53 16:38 21:47 WBC RBC Hgb Hct MCV MCHC RDW Plt Count Lymph % (Auto) [place] % (Auto) Lymph # [place] # Seg Neutrophils % Seg Neuts % (Manual) Lymphocytes % (Manual) Nucleated RBC % Seg Neutrophils # Seg Neutrophils # Man Lymphocytes # (Manual) Monocytes # (Manual) Eosinophils # (Manual) PT INR Heparin Anti-Xa Level ABG pH ABG pO2 ABG HCO3 ABG O2 Saturation ABG Base Excess ABG Hemoglobin Oxyhemoglobin Sodium Potassium 6.0 H Chloride Carbon Dioxide BUN 90 H Creatinine 2.1 H Glucose 124 H POC Glucose 129 H 118 H Hemoglobin A1c Calcium Phosphorus Magnesium Ferritin AST ALT Alkaline Phosphatase Total Creatine Kinase CK-MB (CK-2) CK-MB (CK-2) Rel Index Troponin T Total Protein Albumin Triglycerides LDL Cholesterol Direct HDL Cholesterol Urine WBC (Auto) Urine Creatinine Crossmatch 04/09/20 04/09/20 04/09/20 03:45 08:04 19:10 WBC RBC Hgb Hct MCV MCHC RDW Plt Count Lymph % (Auto) [place] % (Auto) Lymph # [place] # Seg Neutrophils % Seg Neuts % (Manual) Lymphocytes % (Manual) Nucleated RBC % Seg Neutrophils # Seg Neutrophils # Man Lymphocytes # (Manual) Monocytes # (Manual) Eosinophils # (Manual) PT INR Heparin Anti-Xa Level ABG pH 7.304 L ABG pO2 72.2 L ABG HCO3 ABG O2 Saturation 93.7 L ABG Base Excess -3.3 L ABG Hemoglobin 8.9 L Oxyhemoglobin 91.8 L Sodium Potassium 6.6 H* 6.5 H* Chloride Carbon Dioxide 21 L BUN 99 H 100 H Creatinine 2.2 H 2.3 H Glucose POC Glucose Hemoglobin A1c Calcium 8.2 L Phosphorus Magnesium Ferritin AST ALT Alkaline Phosphatase Total Creatine Kinase CK-MB (CK-2) CK-MB (CK-2) Rel Index Troponin T Total Protein Albumin Triglycerides LDL Cholesterol Direct HDL Cholesterol Urine WBC (Auto) Urine Creatinine Crossmatch 04/10/20 04/10/20 04/10/20 05:48 05:48 08:53 WBC RBC 3.01 L Hgb 8.9 L Hct 28.4 L MCV 95 H MCHC 31 L RDW 17.6 H Plt Count Lymph % (Auto) 11.4 L [place] % (Auto) Lymph # 1.1 L [place] # Seg Neutrophils % 81.1 H Seg Neuts % (Manual) Lymphocytes % (Manual) Nucleated RBC % Seg Neutrophils # 8.1 H Seg Neutrophils # Man Lymphocytes # (Manual) Monocytes # (Manual) Eosinophils # (Manual) PT INR Heparin Anti-Xa Level ABG pH ABG pO2 ABG HCO3 ABG O2 Saturation ABG Base Excess ABG Hemoglobin Oxyhemoglobin Sodium Potassium 5.2 H Chloride Carbon Dioxide BUN 104 H Creatinine 2.2 H Glucose 129 H POC Glucose 110 H Hemoglobin A1c Calcium Phosphorus Magnesium 2.80 H Ferritin AST 502 H ALT 249 H Alkaline Phosphatase 323 H Total Creatine Kinase CK-MB (CK-2) CK-MB (CK-2) Rel Index Troponin T Total Protein Albumin 2.5 L Triglycerides LDL Cholesterol Direct HDL Cholesterol Urine WBC (Auto) Urine Creatinine Crossmatch 04/10/20 04/10/20 04/10/20 11:42 16:05 21:35 WBC RBC Hgb Hct MCV MCHC RDW Plt Count Lymph % (Auto) [place] % (Auto) Lymph # [place] # Seg Neutrophils % Seg Neuts % (Manual) Lymphocytes % (Manual) Nucleated RBC % Seg Neutrophils # Seg Neutrophils # Man Lymphocytes # (Manual) Monocytes # (Manual) Eosinophils # (Manual) PT INR Heparin Anti-Xa Level ABG pH ABG pO2 ABG HCO3 ABG O2 Saturation ABG Base Excess ABG Hemoglobin Oxyhemoglobin Sodium Potassium Chloride Carbon Dioxide BUN Creatinine Glucose POC Glucose 135 H 137 H 151 H Hemoglobin A1c Calcium Phosphorus Magnesium Ferritin AST ALT Alkaline Phosphatase Total Creatine Kinase CK-MB (CK-2) CK-MB (CK-2) Rel Index Troponin T Total Protein Albumin Triglycerides LDL Cholesterol Direct HDL Cholesterol Urine WBC (Auto) Urine Creatinine Crossmatch 04/11/20 04/11/20 04/11/20 06:26 06:26 06:26 WBC RBC 2.89 L Hgb 8.6 L Hct 27.4 L MCV 95 H MCHC 31 L RDW 17.5 H Plt Count Lymph % (Auto) 9.9 L [place] % (Auto) Lymph # 1.0 L [place] # Seg Neutrophils % 85.7 H Seg Neuts % (Manual) Lymphocytes % (Manual) Nucleated RBC % Seg Neutrophils # 8.8 H Seg Neutrophils # Man Lymphocytes # (Manual) Monocytes # (Manual) Eosinophils # (Manual) PT 24.0 H INR 2.10 H Heparin Anti-Xa Level ABG pH ABG pO2 ABG HCO3 ABG O2 Saturation ABG Base Excess ABG Hemoglobin Oxyhemoglobin Sodium 146 H Potassium 5.3 H Chloride 108.2 H Carbon Dioxide BUN 109 H Creatinine 2.1 H Glucose 160 H POC Glucose Hemoglobin A1c Calcium Phosphorus Magnesium Ferritin AST 298 H ALT 207 H Alkaline Phosphatase 274 H Total Creatine Kinase CK-MB (CK-2) CK-MB (CK-2) Rel Index Troponin T Total Protein Albumin 2.5 L Triglycerides LDL Cholesterol Direct HDL Cholesterol Urine WBC (Auto) Urine Creatinine Crossmatch 04/11/20 04/11/20 04/11/20 07:57 11:33 16:07 WBC RBC Hgb Hct MCV MCHC RDW Plt Count Lymph % (Auto) [place] % (Auto) Lymph # [place] # Seg Neutrophils % Seg Neuts % (Manual) Lymphocytes % (Manual) Nucleated RBC % Seg Neutrophils # Seg Neutrophils # Man Lymphocytes # (Manual) Monocytes # (Manual) Eosinophils # (Manual) PT INR Heparin Anti-Xa Level ABG pH ABG pO2 ABG HCO3 ABG O2 Saturation ABG Base Excess ABG Hemoglobin Oxyhemoglobin Sodium Potassium Chloride Carbon Dioxide BUN Creatinine Glucose POC Glucose 170 H 167 H 140 H Hemoglobin A1c Calcium Phosphorus Magnesium Ferritin AST ALT Alkaline Phosphatase Total Creatine Kinase CK-MB (CK-2) CK-MB (CK-2) Rel Index Troponin T Total Protein Albumin Triglycerides LDL Cholesterol Direct HDL Cholesterol Urine WBC (Auto) Urine Creatinine Crossmatch 04/11/20 04/11/20 04/11/20 16:30 16:30 16:50 WBC RBC Hgb Hct MCV MCHC RDW Plt Count Lymph % (Auto) [place] % (Auto) Lymph # [place] # Seg Neutrophils % Seg Neuts % (Manual) Lymphocytes % (Manual) Nucleated RBC % Seg Neutrophils # Seg Neutrophils # Man Lymphocytes # (Manual) Monocytes # (Manual) Eosinophils # (Manual) PT INR Heparin Anti-Xa Level ABG pH 7.325 L ABG pO2 304.4 H ABG HCO3 ABG O2 Saturation 99.5 H ABG Base Excess -4.4 L ABG Hemoglobin 10.9 L Oxyhemoglobin Sodium Potassium Chloride Carbon Dioxide BUN Creatinine Glucose POC Glucose Hemoglobin A1c Calcium Phosphorus Magnesium Ferritin AST ALT Alkaline Phosphatase Total Creatine Kinase CK-MB (CK-2) CK-MB (CK-2) Rel Index Troponin T Total Protein Albumin Triglycerides LDL Cholesterol Direct HDL Cholesterol Urine WBC (Auto) 16.0 H Urine Creatinine 60.0 H Crossmatch 04/11/20 04/11/20 04/11/20 18:17 18:17 18:57 WBC RBC 2.71 L Hgb 7.9 L Hct 26.1 L MCV 96 H MCHC 30 L RDW 18.3 H Plt Count Lymph % (Auto) [place] % (Auto) Lymph # [place] # Seg Neutrophils % Seg Neuts % (Manual) 89.0 H Lymphocytes % (Manual) 7.0 L Nucleated RBC % Seg Neutrophils # Seg Neutrophils # Man 8.8 H Lymphocytes # (Manual) 0.7 L Monocytes # (Manual) Eosinophils # (Manual) PT INR Heparin Anti-Xa Level ABG pH ABG pO2 ABG HCO3 ABG O2 Saturation ABG Base Excess ABG Hemoglobin Oxyhemoglobin Sodium 146 H Potassium 5.8 H Chloride 107.5 H Carbon Dioxide 21 L BUN 111 H Creatinine 2.2 H Glucose 176 H POC Glucose 199 H Hemoglobin A1c Calcium Phosphorus 7.40 H Magnesium 2.90 H Ferritin AST 230 H ALT 163 H Alkaline Phosphatase 236 H Total Creatine Kinase 351 H CK-MB (CK-2) CK-MB (CK-2) Rel Index Troponin T 3.950 H* Total Protein 5.7 L Albumin 2.1 L Triglycerides LDL Cholesterol Direct HDL Cholesterol 19 L Urine WBC (Auto) Urine Creatinine Crossmatch 04/11/20 04/12/20 04/12/20 21:21 01:41 04:45 WBC RBC Hgb Hct MCV MCHC RDW Plt Count Lymph % (Auto) [place] % (Auto) Lymph # [place] # Seg Neutrophils % Seg Neuts % (Manual) Lymphocytes % (Manual) Nucleated RBC % Seg Neutrophils # Seg Neutrophils # Man Lymphocytes # (Manual) Monocytes # (Manual) Eosinophils # (Manual) PT INR Heparin Anti-Xa Level ABG pH 7.451 H ABG pO2 ABG HCO3 ABG O2 Saturation ABG Base Excess ABG Hemoglobin 6.2 L Oxyhemoglobin Sodium 147 H Potassium 6.0 H Chloride 111.8 H Carbon Dioxide 21 L BUN 117 H Creatinine 2.6 H Glucose 201 H POC Glucose 248 H Hemoglobin A1c Calcium 8.0 L Phosphorus Magnesium Ferritin AST ALT Alkaline Phosphatase Total Creatine Kinase CK-MB (CK-2) CK-MB (CK-2) Rel Index Troponin T Total Protein Albumin Triglycerides LDL Cholesterol Direct HDL Cholesterol Urine WBC (Auto) Urine Creatinine Crossmatch 04/12/20 04/12/20 04/12/20 07:22 07:22 07:22 WBC 12.1 H RBC 2.96 L Hgb 8.7 L Hct 28.1 L MCV 95 H MCHC 31 L RDW 17.7 H Plt Count Lymph % (Auto) 7.1 L [place] % (Auto) Lymph # 0.9 L [place] # Seg Neutrophils % 85.8 H Seg Neuts % (Manual) Lymphocytes % (Manual) Nucleated RBC % Seg Neutrophils # 10.4 H Seg Neutrophils # Man Lymphocytes # (Manual) Monocytes # (Manual) Eosinophils # (Manual) PT 22.9 H INR 1.99 H Heparin Anti-Xa Level ABG pH ABG pO2 ABG HCO3 ABG O2 Saturation ABG Base Excess ABG Hemoglobin Oxyhemoglobin Sodium 147 H Potassium 5.2 H Chloride 109.8 H Carbon Dioxide 20 L BUN 120 H Creatinine 2.8 H Glucose 158 H POC Glucose Hemoglobin A1c Calcium Phosphorus Magnesium 3.00 H Ferritin AST 195 H ALT 162 H Alkaline Phosphatase 244 H Total Creatine Kinase CK-MB (CK-2) CK-MB (CK-2) Rel Index Troponin T Total Protein 5.9 L Albumin 2.4 L Triglycerides LDL Cholesterol Direct HDL Cholesterol Urine WBC (Auto) Urine Creatinine Crossmatch 04/12/20 04/12/20 04/12/20 11:54 16:30 21:05 WBC RBC Hgb Hct MCV MCHC RDW Plt Count Lymph % (Auto) [place] % (Auto) Lymph # [place] # Seg Neutrophils % Seg Neuts % (Manual) Lymphocytes % (Manual) Nucleated RBC % Seg Neutrophils # Seg Neutrophils # Man Lymphocytes # (Manual) Monocytes # (Manual) Eosinophils # (Manual) PT INR Heparin Anti-Xa Level ABG pH ABG pO2 ABG HCO3 ABG O2 Saturation ABG Base Excess ABG Hemoglobin Oxyhemoglobin Sodium 146 H Potassium 5.2 H Chloride 107.3 H Carbon Dioxide 21 L BUN 132 H Creatinine 3.4 H Glucose 212 H POC Glucose 213 H 181 H Hemoglobin A1c Calcium Phosphorus Magnesium Ferritin AST ALT Alkaline Phosphatase Total Creatine Kinase CK-MB (CK-2) CK-MB (CK-2) Rel Index Troponin T Total Protein Albumin Triglycerides LDL Cholesterol Direct HDL Cholesterol Urine WBC (Auto) Urine Creatinine Crossmatch 04/12/20 04/12/20 04/13/20 21:17 23:24 04:25 WBC RBC Hgb Hct MCV MCHC RDW Plt Count Lymph % (Auto) [place] % (Auto) Lymph # [place] # Seg Neutrophils % Seg Neuts % (Manual) Lymphocytes % (Manual) Nucleated RBC % Seg Neutrophils # Seg Neutrophils # Man Lymphocytes # (Manual) Monocytes # (Manual) Eosinophils # (Manual) PT INR Heparin Anti-Xa Level ABG pH ABG pO2 161.4 H ABG HCO3 ABG O2 Saturation ABG Base Excess -2.8 L ABG Hemoglobin 7.6 L Oxyhemoglobin Sodium Potassium Chloride Carbon Dioxide BUN Creatinine Glucose POC Glucose 203 H 221 H Hemoglobin A1c Calcium Phosphorus Magnesium Ferritin AST ALT Alkaline Phosphatase Total Creatine Kinase CK-MB (CK-2) CK-MB (CK-2) Rel Index Troponin T Total Protein Albumin Triglycerides LDL Cholesterol Direct HDL Cholesterol Urine WBC (Auto) Urine Creatinine Crossmatch 04/13/20 04/13/20 04/13/20 04:35 04:35 04:35 WBC 13.3 H RBC 2.68 L Hgb 8.0 L Hct 25.1 L MCV MCHC RDW 17.4 H Plt Count Lymph % (Auto) 9.1 L [place] % (Auto) Lymph # [place] # 0.9 H Seg Neutrophils % 84.0 H Seg Neuts % (Manual) Lymphocytes % (Manual) Nucleated RBC % Seg Neutrophils # 11.1 H Seg Neutrophils # Man Lymphocytes # (Manual) Monocytes # (Manual) Eosinophils # (Manual) PT 27.8 H INR 2.55 H Heparin Anti-Xa Level ABG pH ABG pO2 ABG HCO3 ABG O2 Saturation ABG Base Excess ABG Hemoglobin Oxyhemoglobin Sodium 149 H Potassium 5.2 H Chloride 109.1 H Carbon Dioxide 20 L BUN 136 H Creatinine 3.5 H Glucose 271 H POC Glucose Hemoglobin A1c Calcium 8.3 L Phosphorus Magnesium Ferritin AST 241 H ALT 153 H Alkaline Phosphatase 294 H Total Creatine Kinase CK-MB (CK-2) CK-MB (CK-2) Rel Index Troponin T Total Protein 6.0 L Albumin 2.3 L Triglycerides LDL Cholesterol Direct HDL Cholesterol Urine WBC (Auto) Urine Creatinine Crossmatch 04/13/20 04/13/20 04/13/20 05:27 13:53 16:54 WBC RBC Hgb Hct MCV MCHC RDW Plt Count Lymph % (Auto) [place] % (Auto) Lymph # [place] # Seg Neutrophils % Seg Neuts % (Manual) Lymphocytes % (Manual) Nucleated RBC % Seg Neutrophils # Seg Neutrophils # Man Lymphocytes # (Manual) Monocytes # (Manual) Eosinophils # (Manual) PT INR Heparin Anti-Xa Level ABG pH ABG pO2 ABG HCO3 ABG O2 Saturation ABG Base Excess ABG Hemoglobin Oxyhemoglobin Sodium Potassium Chloride Carbon Dioxide BUN Creatinine Glucose POC Glucose 284 H 320 H 357 H Hemoglobin A1c Calcium Phosphorus Magnesium Ferritin AST ALT Alkaline Phosphatase Total Creatine Kinase CK-MB (CK-2) CK-MB (CK-2) Rel Index Troponin T Total Protein Albumin Triglycerides LDL Cholesterol Direct HDL Cholesterol Urine WBC (Auto) Urine Creatinine Crossmatch 04/14/20 04/14/20 04/14/20 00:13 04:38 05:47 WBC RBC Hgb Hct MCV MCHC RDW Plt Count Lymph % (Auto) [place] % (Auto) Lymph # [place] # Seg Neutrophils % Seg Neuts % (Manual) Lymphocytes % (Manual) Nucleated RBC % Seg Neutrophils # Seg Neutrophils # Man Lymphocytes # (Manual) Monocytes # (Manual) Eosinophils # (Manual) PT INR Heparin Anti-Xa Level ABG pH ABG pO2 ABG HCO3 ABG O2 Saturation ABG Base Excess -3.6 L ABG Hemoglobin 8.0 L Oxyhemoglobin 94.7 L Sodium Potassium Chloride Carbon Dioxide BUN Creatinine Glucose POC Glucose 251 H 273 H Hemoglobin A1c Calcium Phosphorus Magnesium Ferritin AST ALT Alkaline Phosphatase Total Creatine Kinase CK-MB (CK-2) CK-MB (CK-2) Rel Index Troponin T Total Protein Albumin Triglycerides LDL Cholesterol Direct HDL Cholesterol Urine WBC (Auto) Urine Creatinine Crossmatch 04/14/20 04/14/20 04/14/20 07:00 07:00 07:00 WBC RBC Hgb 7.8 L Hct 25.3 L MCV MCHC RDW Plt Count Lymph % (Auto) [place] % (Auto) Lymph # [place] # Seg Neutrophils % Seg Neuts % (Manual) Lymphocytes % (Manual) Nucleated RBC % Seg Neutrophils # Seg Neutrophils # Man Lymphocytes # (Manual) Monocytes # (Manual) Eosinophils # (Manual) PT 24.3 H INR 2.15 H Heparin Anti-Xa Level ABG pH ABG pO2 ABG HCO3 ABG O2 Saturation ABG Base Excess ABG Hemoglobin Oxyhemoglobin Sodium Potassium Chloride Carbon Dioxide 20 L BUN 151 H Creatinine 4.1 H Glucose 266 H POC Glucose Hemoglobin A1c Calcium 7.7 L Phosphorus Magnesium Ferritin AST 176 H ALT 123 H Alkaline Phosphatase 259 H Total Creatine Kinase CK-MB (CK-2) CK-MB (CK-2) Rel Index Troponin T Total Protein 5.5 L Albumin 2.1 L Triglycerides LDL Cholesterol Direct HDL Cholesterol Urine WBC (Auto) Urine Creatinine Crossmatch 04/14/20 04/14/20 04/14/20 11:56 12:00 16:13 WBC RBC Hgb Hct MCV MCHC RDW Plt Count Lymph % (Auto) [place] % (Auto) Lymph # [place] # Seg Neutrophils % Seg Neuts % (Manual) Lymphocytes % (Manual) Nucleated RBC % Seg Neutrophils # Seg Neutrophils # Man Lymphocytes # (Manual) Monocytes # (Manual) Eosinophils # (Manual) PT INR Heparin Anti-Xa Level ABG pH ABG pO2 ABG HCO3 ABG O2 Saturation ABG Base Excess ABG Hemoglobin Oxyhemoglobin Sodium Potassium Chloride 108.0 H Carbon Dioxide 17 L BUN 135 H Creatinine 3.9 H Glucose 265 H POC Glucose 313 H 331 H Hemoglobin A1c Calcium Phosphorus 6.70 H Magnesium 2.40 H Ferritin AST ALT Alkaline Phosphatase Total Creatine Kinase CK-MB (CK-2) CK-MB (CK-2) Rel Index Troponin T Total Protein Albumin Triglycerides LDL Cholesterol Direct HDL Cholesterol Urine WBC (Auto) Urine Creatinine Crossmatch 04/14/20 04/15/20 04/15/20 17:51 00:00 04:34 WBC RBC Hgb Hct MCV MCHC RDW Plt Count Lymph % (Auto) [place] % (Auto) Lymph # [place] # Seg Neutrophils % Seg Neuts % (Manual) Lymphocytes % (Manual) Nucleated RBC % Seg Neutrophils # Seg Neutrophils # Man Lymphocytes # (Manual) Monocytes # (Manual) Eosinophils # (Manual) PT INR Heparin Anti-Xa Level ABG pH ABG pO2 ABG HCO3 19.9 L ABG O2 Saturation ABG Base Excess -4.1 L ABG Hemoglobin 7.5 L Oxyhemoglobin 94.9 L Sodium Potassium Chloride Carbon Dioxide BUN Creatinine Glucose POC Glucose 347 H 325 H Hemoglobin A1c Calcium Phosphorus Magnesium Ferritin AST ALT Alkaline Phosphatase Total Creatine Kinase CK-MB (CK-2) CK-MB (CK-2) Rel Index Troponin T Total Protein Albumin Triglycerides LDL Cholesterol Direct HDL Cholesterol Urine WBC (Auto) Urine Creatinine Crossmatch 04/15/20 04/15/20 04/15/20 04:57 05:39 11:59 WBC RBC Hgb Hct MCV MCHC RDW Plt Count Lymph % (Auto) [place] % (Auto) Lymph # [place] # Seg Neutrophils % Seg Neuts % (Manual) Lymphocytes % (Manual) Nucleated RBC % Seg Neutrophils # Seg Neutrophils # Man Lymphocytes # (Manual) Monocytes # (Manual) Eosinophils # (Manual) PT INR Heparin Anti-Xa Level ABG pH ABG pO2 ABG HCO3 ABG O2 Saturation ABG Base Excess ABG Hemoglobin Oxyhemoglobin Sodium Potassium 5.1 H Chloride Carbon Dioxide 20 L BUN 163 H Creatinine 4.5 H Glucose 274 H POC Glucose 257 H 330 H Hemoglobin A1c Calcium 7.8 L Phosphorus Magnesium Ferritin AST 130 H ALT 105 H Alkaline Phosphatase 254 H Total Creatine Kinase CK-MB (CK-2) CK-MB (CK-2) Rel Index Troponin T Total Protein 5.8 L Albumin 2.0 L Triglycerides LDL Cholesterol Direct HDL Cholesterol Urine WBC (Auto) Urine Creatinine Crossmatch 04/15/20 04/15/20 04/16/20 18:53 23:58 04:25 WBC RBC Hgb Hct MCV MCHC RDW Plt Count Lymph % (Auto) [place] % (Auto) Lymph # [place] # Seg Neutrophils % Seg Neuts % (Manual) Lymphocytes % (Manual) Nucleated RBC % Seg Neutrophils # Seg Neutrophils # Man Lymphocytes # (Manual) Monocytes # (Manual) Eosinophils # (Manual) PT INR Heparin Anti-Xa Level ABG pH 7.304 L ABG pO2 74.6 L ABG HCO3 18.8 L ABG O2 Saturation ABG Base Excess -6.9 L ABG Hemoglobin 5.0 L Oxyhemoglobin Sodium Potassium Chloride Carbon Dioxide BUN Creatinine Glucose POC Glucose 315 H 260 H Hemoglobin A1c Calcium Phosphorus Magnesium Ferritin AST ALT Alkaline Phosphatase Total Creatine Kinase CK-MB (CK-2) CK-MB (CK-2) Rel Index Troponin T Total Protein Albumin Triglycerides LDL Cholesterol Direct HDL Cholesterol Urine WBC (Auto) Urine Creatinine Crossmatch 04/16/20 04/16/20 04/16/20 05:00 05:17 11:35 WBC RBC Hgb Hct MCV MCHC RDW Plt Count Lymph % (Auto) [place] % (Auto) Lymph # [place] # Seg Neutrophils % Seg Neuts % (Manual) Lymphocytes % (Manual) Nucleated RBC % Seg Neutrophils # Seg Neutrophils # Man Lymphocytes # (Manual) Monocytes # (Manual) Eosinophils # (Manual) PT INR Heparin Anti-Xa Level ABG pH ABG pO2 ABG HCO3 ABG O2 Saturation ABG Base Excess ABG Hemoglobin Oxyhemoglobin Sodium Potassium 5.9 H Chloride Carbon Dioxide 19 L BUN 177 H Creatinine 5.1 H Glucose 261 H POC Glucose 255 H 271 H Hemoglobin A1c Calcium 7.7 L Phosphorus Magnesium Ferritin AST 116 H ALT 83 H Alkaline Phosphatase 254 H Total Creatine Kinase CK-MB (CK-2) CK-MB (CK-2) Rel Index Troponin T Total Protein 5.6 L Albumin 2.3 L Triglycerides LDL Cholesterol Direct HDL Cholesterol Urine WBC (Auto) Urine Creatinine Crossmatch 04/16/20 04/16/20 04/16/20 12:26 15:33 15:40 WBC RBC 2.22 L Hgb 6.5 L Hct 21.1 L MCV 95 H MCHC 31 L RDW 18.5 H Plt Count 96 L Lymph % (Auto) [place] % (Auto) Lymph # [place] # Seg Neutrophils % Seg Neuts % (Manual) Lymphocytes % (Manual) Nucleated RBC % Seg Neutrophils # Seg Neutrophils # Man Lymphocytes # (Manual) Monocytes # (Manual) Eosinophils # (Manual) PT INR Heparin Anti-Xa Level ABG pH ABG pO2 ABG HCO3 ABG O2 Saturation ABG Base Excess ABG Hemoglobin Oxyhemoglobin Sodium Potassium 6.3 H* Chloride Carbon Dioxide 16 L BUN 184 H Creatinine 5.5 H Glucose 161 H POC Glucose Hemoglobin A1c Calcium 7.3 L Phosphorus Magnesium Ferritin AST ALT Alkaline Phosphatase Total Creatine Kinase CK-MB (CK-2) CK-MB (CK-2) Rel Index Troponin T Total Protein Albumin Triglycerides LDL Cholesterol Direct HDL Cholesterol Urine WBC (Auto) Urine Creatinine Crossmatch See Detail 04/16/20 04/16/20 04/16/20 17:29 19:33 23:00 WBC RBC Hgb Hct MCV MCHC RDW Plt Count Lymph % (Auto) [place] % (Auto) Lymph # [place] # Seg Neutrophils % Seg Neuts % (Manual) Lymphocytes % (Manual) Nucleated RBC % Seg Neutrophils # Seg Neutrophils # Man Lymphocytes # (Manual) Monocytes # (Manual) Eosinophils # (Manual) PT INR Heparin Anti-Xa Level ABG pH ABG pO2 ABG HCO3 ABG O2 Saturation ABG Base Excess ABG Hemoglobin Oxyhemoglobin Sodium Potassium 5.8 H 5.7 H Chloride Carbon Dioxide 19 L 17 L BUN 180 H 179 H Creatinine 5.1 H 5.4 H Glucose 224 H 187 H POC Glucose 170 H Hemoglobin A1c Calcium 6.9 L 6.9 L Phosphorus Magnesium Ferritin AST ALT Alkaline Phosphatase Total Creatine Kinase CK-MB (CK-2) CK-MB (CK-2) Rel Index Troponin T Total Protein Albumin Triglycerides LDL Cholesterol Direct HDL Cholesterol Urine WBC (Auto) Urine Creatinine Crossmatch 04/16/20 04/17/20 04/17/20 23:56 04:00 04:10 WBC RBC Hgb Hct MCV MCHC RDW Plt Count Lymph % (Auto) [place] % (Auto) Lymph # [place] # Seg Neutrophils % Seg Neuts % (Manual) Lymphocytes % (Manual) Nucleated RBC % Seg Neutrophils # Seg Neutrophils # Man Lymphocytes # (Manual) Monocytes # (Manual) Eosinophils # (Manual) PT INR Heparin Anti-Xa Level ABG pH ABG pO2 320.9 H ABG HCO3 18.0 L ABG O2 Saturation 99.5 H ABG Base Excess -6.5 L ABG Hemoglobin < 5.1 L Oxyhemoglobin Sodium Potassium 5.5 H Chloride Carbon Dioxide 16 L BUN 172 H Creatinine 5.1 H Glucose 227 H POC Glucose 130 H Hemoglobin A1c Calcium 6.7 L Phosphorus Magnesium Ferritin AST 97 H ALT 64 H Alkaline Phosphatase 170 H Total Creatine Kinase CK-MB (CK-2) CK-MB (CK-2) Rel Index Troponin T Total Protein 4.9 L Albumin 1.9 L Triglycerides LDL Cholesterol Direct HDL Cholesterol Urine WBC (Auto) Urine Creatinine Crossmatch 04/17/20 05:58 WBC RBC Hgb Hct MCV MCHC RDW Plt Count Lymph % (Auto) [place] % (Auto) Lymph # [place] # Seg Neutrophils % Seg Neuts % (Manual) Lymphocytes % (Manual) Nucleated RBC % Seg Neutrophils # Seg Neutrophils # Man Lymphocytes # (Manual) Monocytes # (Manual) Eosinophils # (Manual) PT INR Heparin Anti-Xa Level ABG pH ABG pO2 ABG HCO3 ABG O2 Saturation ABG Base Excess ABG Hemoglobin Oxyhemoglobin Sodium Potassium Chloride Carbon Dioxide BUN Creatinine Glucose POC Glucose 154 H Hemoglobin A1c Calcium Phosphorus Magnesium Ferritin AST ALT Alkaline Phosphatase Total Creatine Kinase CK-MB (CK-2) CK-MB (CK-2) Rel Index Troponin T Total Protein Albumin Triglycerides LDL Cholesterol Direct HDL Cholesterol Urine WBC (Auto) Urine Creatinine Crossmatch
--- NOTE | 2020-04-17 10:31 | Progress Note ---
Assessment and Plan 1. Acute kidney injury: Vasomotor DYLON in the setting of sepsis and hypotension. US negative for hydro. UA results noted. Monitor renal function. Creatinine level continue to increase. Avoid nephrotoxic agents. Meds dosage based on GFR. Monitor for LINE DIRECTOR needs. Per Neuro note patient is possibly brain . At this point dialysis is futile. 2. FEN: Hyperkalemia, monitor. Metabolic acidosis, monitor. Hypernatremia, improved with water flushes, monitor. Monitor lytes and volume status. 3. Sepsis: PNA vs L stump infection. Followed by ID. 4. Shock / Hypotension: On Levophed. Monitor BP. 5. Acute hypoxic respiratory failure: Intubated 04/11, on vent. 6. s/p Cardiac arrest. 7. Acute left lower extremity ischemia: 03/19/2020 status post endovascular revascularization. 03/19/2020 s/p left lower extremity 4 compartment fasciotomy. 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 8. Non-ST elevation UT : H/o CAD s/p CABG. 9. Acute systolic CHF; EF 30-35%: Beta-blockers. 10. Intermittent V.tach: On IV Amio and PO Metoprolol. 11. Anoxic encephalopathy: Per Neuro note "-Possible brain ,NM MRI done showed no blood flow in brain with a finding consistent with brain " 12. Elevated Transaminases: Improving. Seen by GI. 13. DM with hyperglycemia: Accu-Check, sliding scale coverage, ADA diet. HbA1C 11. 14. Anemia. - Subjective: Patient was seen and examined at the bedside. In ICU. - General Appearance General appearance: well-developed, obese, appears stated age, intubated, on vent HEENT: ATNC Neck: Trachea midline Respiratory: appears ctab Cardiology: regular, S1S2, no murmur Gastrointestinal: soft, not tender, not distended, BS heard Integumentary: L BKA dressing Neurologic: not responding Ext: extremity edema noted : acosta catheter, scrotal edema noted Subjective Date of service: 04/17/20 Principal diagnosis: Septic Shock/Cardiopulmonary Arrest Objective - Vital Signs Vital signs: Vital Signs - 12hr 04/16/20 04/16/20 04/16/20 22:45 23:00 23:15 Temperature Pulse Rate 71 71 73 Pulse Rate [ Anterior Bilateral Throughout] Respiratory 16 14 20 Rate Respiratory Rate [Anterior Bilateral Throughout] Respiratory Rate [Left Leg] Respiratory Rate [Right Leg ] Respiratory Rate [left foot ] Blood Pressure 92/45 87/43 97/51 O2 Sat by Pulse 100 93 100 Oximetry 04/16/20 04/16/20 04/17/20 23:30 23:45 00:00 Temperature 98.8 F Pulse Rate 71 71 71 Pulse Rate [ Anterior Bilateral Throughout] Respiratory 14 14 15 Rate Respiratory Rate [Anterior Bilateral Throughout] Respiratory Rate [Left Leg] Respiratory Rate [Right Leg ] Respiratory Rate [left foot ] Blood Pressure 89/46 84/44 87/43 O2 Sat by Pulse 100 100 100 Oximetry 04/17/20 04/17/20 04/17/20 00:15 00:28 00:30 Temperature Pulse Rate 73 74 73 Pulse Rate [ Anterior Bilateral Throughout] Respiratory 13 13 Rate Respiratory Rate [Anterior Bilateral Throughout] Respiratory Rate [Left Leg] Respiratory Rate [Right Leg ] Respiratory Rate [left foot ] Blood Pressure 91/50 91/50 89/46 O2 Sat by Pulse 100 100 100 Oximetry 04/17/20 04/17/20 04/17/20 00:45 01:00 01:15 Temperature Pulse Rate 71 71 73 Pulse Rate [ Anterior Bilateral Throughout] Respiratory 13 13 15 Rate Respiratory Rate [Anterior Bilateral Throughout] Respiratory Rate [Left Leg] Respiratory Rate [Right Leg ] Respiratory Rate [left foot ] Blood Pressure 91/52 102/57 103/61 O2 Sat by Pulse Oximetry 04/17/20 04/17/20 04/17/20 01:30 01:45 02:00 Temperature Pulse Rate 73 72 75 Pulse Rate [ Anterior Bilateral Throughout] Respiratory 17 14 14 Rate Respiratory Rate [Anterior Bilateral Throughout] Respiratory Rate [Left Leg] Respiratory Rate [Right Leg ] Respiratory Rate [left foot ] Blood Pressure 111/63 114/63 107/71 O2 Sat by Pulse 99 85 Oximetry 04/17/20 04/17/20 04/17/20 02:15 02:30 02:45 Temperature Pulse Rate 75 76 72 Pulse Rate [ Anterior Bilateral Throughout] Respiratory 14 18 17 Rate Respiratory Rate [Anterior Bilateral Throughout] Respiratory Rate [Left Leg] Respiratory Rate [Right Leg ] Respiratory Rate [left foot ] Blood Pressure 125/71 123/71 106/62 O2 Sat by Pulse 91 87 Oximetry 04/17/20 04/17/20 04/17/20 03:00 03:15 03:30 Temperature Pulse Rate 71 71 73 Pulse Rate [ Anterior Bilateral Throughout] Respiratory 19 17 15 Rate Respiratory Rate [Anterior Bilateral Throughout] Respiratory Rate [Left Leg] Respiratory Rate [Right Leg ] Respiratory Rate [left foot ] Blood Pressure 108/66 116/64 110/68 O2 Sat by Pulse 83 L Oximetry 04/17/20 04/17/20 04/17/20 03:45 03:54 04:00 Temperature 99.3 F Pulse Rate 75 75 76 Pulse Rate [ Anterior Bilateral Throughout] Respiratory 17 14 Rate Respiratory Rate [Anterior Bilateral Throughout] Respiratory Rate [Left Leg] Respiratory Rate [Right Leg ] Respiratory Rate [left foot ] Blood Pressure 127/73 127/73 128/73 O2 Sat by Pulse 88 95 84 Oximetry 04/17/20 04/17/20 04/17/20 04:10 04:15 04:31 Temperature Pulse Rate 76 77 Pulse Rate [ Anterior Bilateral Throughout] Respiratory 17 16 Rate Respiratory Rate [Anterior Bilateral Throughout] Respiratory Rate [Left Leg] Respiratory Rate [Right Leg ] Respiratory Rate [left foot ] Blood Pressure 128/73 173/49 O2 Sat by Pulse 81 L 81 L 82 L Oximetry 04/17/20 04/17/20 04/17/20 04:45 05:01 05:15 Temperature Pulse Rate 76 74 73 Pulse Rate [ Anterior Bilateral Throughout] Respiratory 15 16 16 Rate Respiratory Rate [Anterior Bilateral Throughout] Respiratory Rate [Left Leg] Respiratory Rate [Right Leg ] Respiratory Rate [left foot ] Blood Pressure 173/49 173/50 147/64 O2 Sat by Pulse 81 L 100 Oximetry 04/17/20 04/17/20 04/17/20 05:31 05:45 06:01 Temperature Pulse Rate 74 74 73 Pulse Rate [ Anterior Bilateral Throughout] Respiratory 15 17 11 L Rate Respiratory Rate [Anterior Bilateral Throughout] Respiratory Rate [Left Leg] Respiratory Rate [Right Leg ] Respiratory Rate [left foot ] Blood Pressure 163/41 163/41 147/50 O2 Sat by Pulse 100 98 94 Oximetry 04/17/20 04/17/20 04/17/20 06:15 06:31 06:45 Temperature Pulse Rate 73 73 73 Pulse Rate [ Anterior Bilateral Throughout] Respiratory 16 18 15 Rate Respiratory Rate [Anterior Bilateral Throughout] Respiratory Rate [Left Leg] Respiratory Rate [Right Leg ] Respiratory Rate [left foot ] Blood Pressure 147/50 137/34 137/34 O2 Sat by Pulse 92 90 89 Oximetry 04/17/20 04/17/20 04/17/20 07:01 07:15 07:30 Temperature Pulse Rate 73 73 73 Pulse Rate [ Anterior Bilateral Throughout] Respiratory 15 17 15 Rate Respiratory Rate [Anterior Bilateral Throughout] Respiratory Rate [Left Leg] Respiratory Rate [Right Leg ] Respiratory Rate [left foot ] Blood Pressure 137/41 127/41 112/40 O2 Sat by Pulse 93 94 95 Oximetry 04/17/20 04/17/20 04/17/20 07:45 08:00 08:15 Temperature 98.8 F Pulse Rate 73 71 71 Pulse Rate [ Anterior Bilateral Throughout] Respiratory 18 14 17 Rate Respiratory Rate [Anterior Bilateral Throughout] Respiratory Rate [Left Leg] Respiratory Rate [Right Leg ] Respiratory Rate [left foot ] Blood Pressure 100/39 108/35 99/37 O2 Sat by Pulse 93 93 94 Oximetry 04/17/20 04/17/20 04/17/20 08:30 08:45 08:57 Temperature Pulse Rate 75 72 74 Pulse Rate [ Anterior Bilateral Throughout] Respiratory 15 14 Rate Respiratory Rate [Anterior Bilateral Throughout] Respiratory Rate [Left Leg] Respiratory Rate [Right Leg ] Respiratory Rate [left foot ] Blood Pressure 116/44 97/38 96/38 O2 Sat by Pulse 95 94 95 Oximetry 04/17/20 04/17/20 04/17/20 09:00 09:15 09:30 Temperature Pulse Rate 73 72 72 Pulse Rate [ Anterior Bilateral Throughout] Respiratory 18 16 12 Rate Respiratory Rate [Anterior Bilateral Throughout] Respiratory Rate [Left Leg] Respiratory Rate [Right Leg ] Respiratory Rate [left foot ] Blood Pressure 97/38 95/36 96/35 O2 Sat by Pulse 96 96 97 Oximetry 04/17/20 04/17/20 04/17/20 09:45 10:00 10:15 Temperature Pulse Rate 73 71 74 Pulse Rate [ 71 Anterior Bilateral Throughout] Respiratory 16 14 15 Rate Respiratory 22 Rate [Anterior Bilateral Throughout] Respiratory 18 Rate [Left Leg] Respiratory 18 Rate [Right Leg ] Respiratory 18 Rate [left foot ] Blood Pressure 92/38 96/34 98/37 O2 Sat by Pulse 97 96 97 Oximetry - Lab 04/16/20 12:26 04/17/20 04:00 Most recent lab results ABG pH 7.394 pH Units (7.350-7.450) 04/17/20 04:10 ABG pCO2 30.1 mm Hg 04/17/20 04:10 ABG pO2 320.9 mm Hg (80.0-90.0) H 04/17/20 04:10 ABG HCO3 18.0 mmol/L (20.0-26.0) L 04/17/20 04:10 ABG O2 Saturation 99.5 % (95.0-99.0) H 04/17/20 04:10 Calcium 6.7 mg/dL (8.4-10.2) L 04/17/20 04:00 Phosphorus 6.70 mg/dL (2.5-4.5) H 04/14/20 12:00 Magnesium 2.40 mg/dL (1.7-2.3) H 04/14/20 12:00 Urine Creatinine 60.0 mg/dL (0.1-20.0) H 04/11/20 16:30 Urine Sodium 26 mmol/L 04/11/20 16:30 Medications & Allergies - Medications Allergies/Adverse Reactions: Allergies No Known Allergies Allergy (Unverified 03/18/20 15:17) Home Medications: Home Medications Medication Instructions Recorded Confirmed Last Taken Type AtorvaSTATin [Lipitor] 20 mg PO QHS 03/20/20 03/20/20 03/14/20 History Clopidogrel [Plavix] 75 mg PO QHS 03/20/20 03/20/20 03/14/20 History Famotidine [Acid Controller] 20 mg PO BID 03/20/20 03/20/20 03/14/20 History Fenofibrate Nanocrystallized 48 mg PO DAILY 03/20/20 03/20/20 03/14/20 History [Fenofibrate] Metoprolol Tartrate 25 mg PO BID 03/20/20 03/20/20 03/14/20 History Pregabalin [Lyrica] 150 mg PO BID 03/20/20 03/20/20 03/14/20 History amLODIPine [Norvasc] 5 mg PO DAILY 03/20/20 03/20/20 03/14/20 History glipiZIDE [Glucotrol] 10 mg PO BID 03/20/20 03/20/20 03/14/20 History hydroCHLOROthiazide [HCTZ] 25 mg PO QDAY 03/20/20 03/20/20 03/14/20 History lisinopriL [Zestril TAB] 40 mg PO QDAY 03/20/20 03/20/20 03/14/20 History Active Medications: Generic Name Dose Route Start Last Admin Trade Name Freq PRN Reason Stop Dose Admin Albuterol 2.5 mg 04/01/20 00:03 Proventil IH Q6HRT PRN Shortness Of Breath Lipase/Protease/Amylase 1 each 04/10/20 17:39 Pancrecarroll [place] 10,500 Unit FEEDTUBE PRN PRN For Clogged Feeding Tube Arformoterol Tartrate 15 mcg 03/19/20 20:00 04/17/20 09:02 Brovana Nebu IH 15 mcg Q12HRT LOI Administration Aspirin 81 mg 04/10/20 16:00 04/16/20 11:51 Halfprin Ec PO Not Given QDAY LOI Atorvastatin Calcium 40 mg 03/19/20 22:00 04/16/20 21:55 Lipitor PO Not Given QHS LOI Budesonide 0.5 mg 03/19/20 20:00 04/17/20 09:02 Pulmicort IH 0.5 mg Q12HRT LOI Administration Clopidogrel Bisulfate 75 mg 03/19/20 10:00 04/16/20 11:53 Plavix PO Not Given QDAY [facility] Dextrose 50 ml 04/16/20 16:42 04/16/20 17:29 D50w (25gm) Syringe IV 50 ml Q30MIN PRN Administration Hypoglycemia Protocol Diphenhydramine HCl 25 mg 03/19/20 12:44 Benadryl IV Q4H PRN Itching Fentanyl 50 mcg 04/11/20 20:22 Sublimaze IV Q10MIN PRN ANALGESIA Hydrophilic Ointment 1 applic 04/11/20 20:22 Vaseline Lip Therapy TP Q2HR PRN Dry Lips Fentanyl Citrate 2,000 mcg in 100 mls @ 6.405 mls/hr 04/11/20 21:00 Fentanyl Drip Premix IV TITR LOI Protocol 1 MCG/KG/HR Cefepime HCl 1 gm in 100 mls @ 200 mls/hr 04/15/20 10:00 04/16/20 09:08 Cefepime/Ns 1 Gm/100 Ml IV 04/18/20 12:00 200 mls/hr Q24HR LOI Administration Protocol Amiodarone HCl 900 mg/ 500 mls @ 33.333 mls/hr 04/14/20 12:00 04/16/20 20:19 Dextrose IV 1 mg/min DIRECT LOI 33.333 mls/hr Administration Protocol 1 MG/MIN Lidocaine HCl/Dextrose 2,000 mg in 500 mls @ 15 mls/hr 04/14/20 17:00 04/15/20 04:45 Xylocaine/D5w 2gm/500ml Drip IV 0 mg/min DIRECT LOI 0 mls/hr Titration Protocol 1 MG/MIN Pantoprazole Sodium 80 mg/ 100 mls @ 10 mls/hr 04/16/20 13:00 04/16/20 22:40 Sodium Chloride IV 8 mg/hr DIRECT LOI 10 mls/hr Administration 8 MG/HR Vasopressin 20 unit/ Sodium 101 mls @ 9.09 mls/hr 04/17/20 00:00 04/17/20 05:00 Chloride IV 0 units/min TITR LOI 0 mls/hr Titration Protocol 0.03 UNITS/MIN Norepinephrine 8 mg/ Sodium 250 mls @ 3.75 mls/hr 04/17/20 01:00 04/17/20 05:15 Chloride IV 8 mcg/min TITR LOI 15 mls/hr Titration Protocol 2 MCG/MIN Insulin Human Isoph/Insulin Regular 5 unit 04/14/20 11:00 04/16/20 17:30 Humulin 70/30 SUB-Q Not Given BIDDIAB [facility] Insulin Human Lispro 0 unit 04/12/20 00:00 04/17/20 05:20 Humalog SUB-Q Not Given Q6HR [facility] Protocol Ipratropium [place] 0.5 mg 04/01/20 00:05 Atrovent IH Q6HRT PRN Shortness Of Breath Magnesium Hydroxide 30 ml 03/18/20 22:21 Milk Of Magnesia PO Q4H PRN Constipation Metoprolol Tartrate 50 mg 03/19/20 22:00 04/16/20 21:53 Metoprolol PO Not Given BID [facility] Multi-Ingred Cream/Lotion/Oil/Oint 1 applic 04/11/20 20:22 Artificial Tears Ophth Oint OU Q4HR PRN Dry Eye(s) Naloxone HCl 0.1 mg 03/19/20 12:44 Naloxone IV Q2MIN PRN Res Rate </= 8 or 02 SAT < 92% Ondansetron HCl 4 mg 03/18/20 22:21 04/05/20 01:46 Zofran IV 4 mg Q8H PRN Administration Nausea And Vomiting Simple Syrup 15 ml 04/10/20 17:39 Simple Syrup FEEDTUBE PRN PRN Hypoglycemia Simple Syrup 30 ml 04/10/20 17:39 Simple Syrup FEEDTUBE PRN PRN Hypoglycemia Sodium Bicarbonate 325 mg 04/10/20 17:39 Sodium Bicarbonate FEEDTUBE PRN PRN For Clogged Feeding Tube Sodium Chloride 10 ml 03/19/20 10:00 04/16/20 21:36 Sodium Chloride Flush Syringe 10 Ml IV 10 ml BID LOI Administration Sodium Chloride 10 ml 03/18/20 22:21 04/11/20 05:57 Sodium Chloride Flush Syringe 10 Ml IV 10 ml PRN PRN Administration LINE FLUSH
[2020-04-17] MEDS: CEFEPIME/NS 1 GM/100 ML 1 GM/100 ML BAG IV SCH (10:49)
[2020-04-17] MEDS: METOPROLOL TARTRATE 50 MG TAB PO SCH (10:49)
[2020-04-17] MEDS: ASPIRIN EC 81 MG TAB PO SCH (10:49)
[2020-04-17] MEDS: CLOPIDOGREL 75 MG TAB PO SCH (10:50)
[2020-04-17] MEDS ORDERED: SODIUM BICARB 8.4% 50 MEQ/50 ML SYRINGE IV ONE (11:00)
--- NOTE | 2020-04-17 12:10 | Progress Note ---
Assessment and Plan Acute limb ischemia S/P revascularization surgery. Obstructive sleep apnea. History of chronic obstructive pulmonary disease. Acute hypoxemic respiratory failure. Diabetes. History of coronary artery disease. Non-ST elevation myocardial infarction. Acute coronary syndrome. Acute cerebrovascular accident. - family being contacted for tentative withdrawal of care - for now, continue care as below; - continue to hold full anticoagulation re: bleeding - Daily SAT and SBT assessment as tolerated - continue to wean supplemental oxygen for target O2 sat's > 90% acutely - VAP bundle addressed - continue lung protective strategies - continue bronchodilators with pulmonary hygiene per RT - wean per pulmonary driven protocols otherwise - sedation prn for target RASS 0 to -1 - continue wound care per WCN / RN - accuchecks with glycemic control per SSI (While critically ill target blood glucose of 140-180 mg/dL; avoid hypoglycemia) - wean supplemental oxygen for target O2 sat's > 90% acutely - prn bronchodilators with pulmonary hygiene per RT - avoid benzodiazepine's, reduce the possibility of delirium - AB's per surgery rec's (No S&S of overwhelming sepsis) - prn analgesia per CPOT score - Maintenance of sleep-wake cycle, avoid delirium - aspiration precautions - G.I. & VTE prophylaxis - PT/OT/ROM exercises - mobility protocols for pressure ulcer prophylaxis - Monitor hemodynamics closely - continue other care per attending / other consultants - discharge planning ongoing concurrently - transferred to telemetry .... Re-evaluate in am & prn CONDITION: CRITICAL PROGNOSIS: GUARDED CODE STATUS: FULL CODE The high probability of a clinically significant, sudden or life-threatening deterioration of the [respiratory, cardiovascular & neurologic] system(s) required my full and direct attention, intervention and personal management. The aggregate critical care time was [32] minutes without overlap. Time includes spent on; [x] Data Review and interpretation [x] Patient assessment and monitoring of vital signs [x] Documentation [x] Medication orders and management Subjective Date of service: 04/17/20 Principal diagnosis: Acute limb ischemia; STARR; COPD; Ac hypoxemic resp failure; DM II; NSTEMI Interval history: Patient is seen today for: Acute limb ischemia S/P revascularization surgery; STARR; COPD; Acute hypoxemic respiratory failure; DM II; NSTEMI; Acute CVA Seen and examined at bedside; 24hour events reviewed; nursing and respiratory care staff consulted; no adverse overnight events reported to me; resting peacefully in bed; AMS is persistent; NM brain flow scan now documenting absent cerebral blood flow; no gross bleeding Objective Vital Signs - 12hr 04/17/20 04/17/20 04/17/20 00:15 00:28 00:30 Temperature Pulse Rate 73 74 73 Pulse Rate [ Anterior Bilateral Throughout] Respiratory 13 13 Rate Respiratory Rate [Anterior Bilateral Throughout] Respiratory Rate [Left Leg] Respiratory Rate [Right Leg ] Respiratory Rate [left foot ] Blood Pressure 91/50 91/50 89/46 O2 Sat by Pulse 100 100 100 Oximetry 04/17/20 04/17/20 04/17/20 00:45 01:00 01:15 Temperature Pulse Rate 71 71 73 Pulse Rate [ Anterior Bilateral Throughout] Respiratory 13 13 15 Rate Respiratory Rate [Anterior Bilateral Throughout] Respiratory Rate [Left Leg] Respiratory Rate [Right Leg ] Respiratory Rate [left foot ] Blood Pressure 91/52 102/57 103/61 O2 Sat by Pulse Oximetry 04/17/20 04/17/20 04/17/20 01:30 01:45 02:00 Temperature Pulse Rate 73 72 75 Pulse Rate [ Anterior Bilateral Throughout] Respiratory 17 14 14 Rate Respiratory Rate [Anterior Bilateral Throughout] Respiratory Rate [Left Leg] Respiratory Rate [Right Leg ] Respiratory Rate [left foot ] Blood Pressure 111/63 114/63 107/71 O2 Sat by Pulse 99 85 Oximetry 04/17/20 04/17/20 04/17/20 02:15 02:30 02:45 Temperature Pulse Rate 75 76 72 Pulse Rate [ Anterior Bilateral Throughout] Respiratory 14 18 17 Rate Respiratory Rate [Anterior Bilateral Throughout] Respiratory Rate [Left Leg] Respiratory Rate [Right Leg ] Respiratory Rate [left foot ] Blood Pressure 125/71 123/71 106/62 O2 Sat by Pulse 91 87 Oximetry 04/17/20 04/17/20 04/17/20 03:00 03:15 03:30 Temperature Pulse Rate 71 71 73 Pulse Rate [ Anterior Bilateral Throughout] Respiratory 19 17 15 Rate Respiratory Rate [Anterior Bilateral Throughout] Respiratory Rate [Left Leg] Respiratory Rate [Right Leg ] Respiratory Rate [left foot ] Blood Pressure 108/66 116/64 110/68 O2 Sat by Pulse 83 L Oximetry 04/17/20 04/17/20 04/17/20 03:45 03:54 04:00 Temperature 99.3 F Pulse Rate 75 75 76 Pulse Rate [ Anterior Bilateral Throughout] Respiratory 17 14 Rate Respiratory Rate [Anterior Bilateral Throughout] Respiratory Rate [Left Leg] Respiratory Rate [Right Leg ] Respiratory Rate [left foot ] Blood Pressure 127/73 127/73 128/73 O2 Sat by Pulse 88 95 84 Oximetry 04/17/20 04/17/20 04/17/20 04:10 04:15 04:31 Temperature Pulse Rate 76 77 Pulse Rate [ Anterior Bilateral Throughout] Respiratory 17 16 Rate Respiratory Rate [Anterior Bilateral Throughout] Respiratory Rate [Left Leg] Respiratory Rate [Right Leg ] Respiratory Rate [left foot ] Blood Pressure 128/73 173/49 O2 Sat by Pulse 81 L 81 L 82 L Oximetry 04/17/20 04/17/20 04/17/20 04:45 05:01 05:15 Temperature Pulse Rate 76 74 73 Pulse Rate [ Anterior Bilateral Throughout] Respiratory 15 16 16 Rate Respiratory Rate [Anterior Bilateral Throughout] Respiratory Rate [Left Leg] Respiratory Rate [Right Leg ] Respiratory Rate [left foot ] Blood Pressure 173/49 173/50 147/64 O2 Sat by Pulse 81 L 100 Oximetry 04/17/20 04/17/20 04/17/20 05:31 05:45 06:01 Temperature Pulse Rate 74 74 73 Pulse Rate [ Anterior Bilateral Throughout] Respiratory 15 17 11 L Rate Respiratory Rate [Anterior Bilateral Throughout] Respiratory Rate [Left Leg] Respiratory Rate [Right Leg ] Respiratory Rate [left foot ] Blood Pressure 163/41 163/41 147/50 O2 Sat by Pulse 100 98 94 Oximetry 04/17/20 04/17/20 04/17/20 06:15 06:31 06:45 Temperature Pulse Rate 73 73 73 Pulse Rate [ Anterior Bilateral Throughout] Respiratory 16 18 15 Rate Respiratory Rate [Anterior Bilateral Throughout] Respiratory Rate [Left Leg] Respiratory Rate [Right Leg ] Respiratory Rate [left foot ] Blood Pressure 147/50 137/34 137/34 O2 Sat by Pulse 92 90 89 Oximetry 04/17/20 04/17/20 04/17/20 07:01 07:15 07:30 Temperature Pulse Rate 73 73 73 Pulse Rate [ Anterior Bilateral Throughout] Respiratory 15 17 15 Rate Respiratory Rate [Anterior Bilateral Throughout] Respiratory Rate [Left Leg] Respiratory Rate [Right Leg ] Respiratory Rate [left foot ] Blood Pressure 137/41 127/41 112/40 O2 Sat by Pulse 93 94 95 Oximetry 04/17/20 04/17/20 04/17/20 07:45 08:00 08:15 Temperature 99.0 F Pulse Rate 73 71 71 Pulse Rate [ Anterior Bilateral Throughout] Respiratory 18 14 17 Rate Respiratory Rate [Anterior Bilateral Throughout] Respiratory Rate [Left Leg] Respiratory Rate [Right Leg ] Respiratory Rate [left foot ] Blood Pressure 100/39 108/35 99/37 O2 Sat by Pulse 93 93 94 Oximetry 04/17/20 04/17/20 04/17/20 08:30 08:45 08:57 Temperature Pulse Rate 75 72 74 Pulse Rate [ Anterior Bilateral Throughout] Respiratory 15 14 Rate Respiratory Rate [Anterior Bilateral Throughout] Respiratory Rate [Left Leg] Respiratory Rate [Right Leg ] Respiratory Rate [left foot ] Blood Pressure 116/44 97/38 96/38 O2 Sat by Pulse 95 94 95 Oximetry 04/17/20 04/17/20 04/17/20 09:00 09:15 09:30 Temperature Pulse Rate 73 72 72 Pulse Rate [ Anterior Bilateral Throughout] Respiratory 18 16 12 Rate Respiratory Rate [Anterior Bilateral Throughout] Respiratory Rate [Left Leg] Respiratory Rate [Right Leg ] Respiratory Rate [left foot ] Blood Pressure 97/38 95/36 96/35 O2 Sat by Pulse 96 96 97 Oximetry 04/17/20 04/17/20 04/17/20 09:45 10:00 10:15 Temperature Pulse Rate 73 71 74 Pulse Rate [ 71 Anterior Bilateral Throughout] Respiratory 16 14 15 Rate Respiratory 22 Rate [Anterior Bilateral Throughout] Respiratory 18 Rate [Left Leg] Respiratory 18 Rate [Right Leg ] Respiratory 18 Rate [left foot ] Blood Pressure 92/38 96/34 98/37 O2 Sat by Pulse 97 96 97 Oximetry 04/17/20 04/17/20 04/17/20 10:30 10:45 11:00 Temperature Pulse Rate 74 73 71 Pulse Rate [ Anterior Bilateral Throughout] Respiratory 12 18 17 Rate Respiratory Rate [Anterior Bilateral Throughout] Respiratory Rate [Left Leg] Respiratory Rate [Right Leg ] Respiratory Rate [left foot ] Blood Pressure 91/39 91/37 87/36 O2 Sat by Pulse 98 99 98 Oximetry 04/17/20 04/17/20 04/17/20 11:15 11:30 11:48 Temperature 99.2 F Pulse Rate 70 70 Pulse Rate [ Anterior Bilateral Throughout] Respiratory 12 15 Rate Respiratory Rate [Anterior Bilateral Throughout] Respiratory Rate [Left Leg] Respiratory Rate [Right Leg ] Respiratory Rate [left foot ] Blood Pressure 88/37 94/36 O2 Sat by Pulse 98 100 Oximetry Constitutional: no acute distress, other (middle aged obese male intubated on MVS and without ventilator dyssynchrony) Eyes: non-icteric ENT: oropharynx moist, other (ETT 23 cm CARSON) Neck: supple, no lymphadenopathy, no JVD Effort: mildly labored Ascultation: Bilateral: diminished breath sounds, rhonchi, other (+ referred upper airway sounds) Percussion: Bilateral: not dull Cardiovascular: irregular rhythm Gastrointestinal: normoactive bowel sounds, soft, non-tender, non-distended (protuberant) Integumentary: rash Extremities: cool, edema (right lower extremity), other (left BKA with clean dressing) Neurologic: unable to assess Psychiatric: other (encephalopathic) CBC and BMP: 04/16/20 12:26 04/17/20 04:00 ABG, PT/INR, D-dimer: ABG ABG pH 7.394 pH Units (7.350-7.450) 04/17/20 04:10 ABG pCO2 30.1 mm Hg 04/17/20 04:10 ABG pO2 320.9 mm Hg (80.0-90.0) H 04/17/20 04:10 ABG O2 Saturation 99.5 % (95.0-99.0) H 04/17/20 04:10 PT/INR, D-dimer PT 24.3 Sec. (12.2-14.9) H 04/14/20 07:00 INR 2.15 (0.87-1.13) H 04/14/20 07:00 Abnormal lab findings: Abnormal Labs 03/18/20 03/18/20 03/18/20 18:28 18:28 20:56 WBC 12.3 H RBC Hgb Hct MCV MCHC RDW Plt Count Lymph % (Auto) 11.0 L [place] % (Auto) 9.8 H Lymph # [place] # 1.2 H Seg Neutrophils % 78.4 H Seg Neuts % (Manual) Lymphocytes % (Manual) Nucleated RBC % Seg Neutrophils # 9.6 H Seg Neutrophils # Man Lymphocytes # (Manual) Monocytes # (Manual) Eosinophils # (Manual) PT INR Heparin Anti-Xa Level ABG pH ABG pO2 ABG HCO3 ABG O2 Saturation ABG Base Excess ABG Hemoglobin Oxyhemoglobin Sodium 132 L Potassium Chloride 91.9 L Carbon Dioxide 20 L BUN Creatinine 1.4 H Glucose 406 H POC Glucose Hemoglobin A1c Calcium Phosphorus Magnesium Ferritin AST ALT Alkaline Phosphatase Total Creatine Kinase 2727 H 2492 H CK-MB (CK-2) 135.9 H 107.2 H CK-MB (CK-2) Rel Index 4.3 H Troponin T 5.110 H* 3.960 H* D Total Protein Albumin Triglycerides 188 H LDL Cholesterol Direct 141 H HDL Cholesterol Urine WBC (Auto) Urine Creatinine Crossmatch 03/18/20 03/19/20 03/19/20 22:21 01:57 08:08 WBC RBC Hgb Hct MCV MCHC RDW Plt Count Lymph % (Auto) [place] % (Auto) Lymph # [place] # Seg Neutrophils % Seg Neuts % (Manual) Lymphocytes % (Manual) Nucleated RBC % Seg Neutrophils # Seg Neutrophils # Man Lymphocytes # (Manual) Monocytes # (Manual) Eosinophils # (Manual) PT INR Heparin Anti-Xa Level ABG pH ABG pO2 ABG HCO3 ABG O2 Saturation ABG Base Excess ABG Hemoglobin Oxyhemoglobin Sodium Potassium Chloride Carbon Dioxide BUN Creatinine Glucose POC Glucose 317 H Hemoglobin A1c 11.0 H Calcium Phosphorus Magnesium Ferritin AST ALT Alkaline Phosphatase Total Creatine Kinase 7255 H CK-MB (CK-2) 79.3 H CK-MB (CK-2) Rel Index Troponin T 5.540 H* D Total Protein Albumin Triglycerides LDL Cholesterol Direct HDL Cholesterol Urine WBC (Auto) Urine Creatinine Crossmatch 03/19/20 03/19/20 03/19/20 08:08 08:08 08:08 WBC 13.3 H RBC Hgb Hct MCV MCHC RDW Plt Count Lymph % (Auto) 10.7 L [place] % (Auto) 8.5 H Lymph # [place] # 1.1 H Seg Neutrophils % 80.0 H Seg Neuts % (Manual) Lymphocytes % (Manual) Nucleated RBC % Seg Neutrophils # 10.6 H Seg Neutrophils # Man Lymphocytes # (Manual) Monocytes # (Manual) Eosinophils # (Manual) PT INR Heparin Anti-Xa Level 0.10 L ABG pH ABG pO2 ABG HCO3 ABG O2 Saturation ABG Base Excess ABG Hemoglobin Oxyhemoglobin Sodium 133 L Potassium 5.1 H Chloride Carbon Dioxide 17 L BUN 23 H Creatinine Glucose 313 H POC Glucose Hemoglobin A1c Calcium Phosphorus Magnesium Ferritin AST ALT Alkaline Phosphatase Total Creatine Kinase CK-MB (CK-2) CK-MB (CK-2) Rel Index Troponin T Total Protein Albumin Triglycerides LDL Cholesterol Direct HDL Cholesterol Urine WBC (Auto) Urine Creatinine Crossmatch 03/19/20 03/19/20 03/19/20 15:40 18:23 21:32 WBC RBC Hgb Hct MCV MCHC RDW Plt Count Lymph % (Auto) [place] % (Auto) Lymph # [place] # Seg Neutrophils % Seg Neuts % (Manual) Lymphocytes % (Manual) Nucleated RBC % Seg Neutrophils # Seg Neutrophils # Man Lymphocytes # (Manual) Monocytes # (Manual) Eosinophils # (Manual) PT INR Heparin Anti-Xa Level < 0.10 L ABG pH ABG pO2 ABG HCO3 18.3 L ABG O2 Saturation ABG Base Excess -5.4 L ABG Hemoglobin 12.2 L Oxyhemoglobin 94.6 L Sodium Potassium Chloride Carbon Dioxide BUN Creatinine Glucose POC Glucose 348 H Hemoglobin A1c Calcium Phosphorus Magnesium Ferritin AST ALT Alkaline Phosphatase Total Creatine Kinase CK-MB (CK-2) CK-MB (CK-2) Rel Index Troponin T Total Protein Albumin Triglycerides LDL Cholesterol Direct HDL Cholesterol Urine WBC (Auto) Urine Creatinine Crossmatch 03/20/20 03/20/20 03/20/20 04:35 05:12 05:12 WBC 11.1 H RBC 3.63 L Hgb 11.0 L Hct 32.7 L D MCV MCHC RDW Plt Count Lymph % (Auto) [place] % (Auto) 8.1 H Lymph # [place] # 0.9 H Seg Neutrophils % 75.8 H Seg Neuts % (Manual) Lymphocytes % (Manual) Nucleated RBC % Seg Neutrophils # 8.4 H Seg Neutrophils # Man Lymphocytes # (Manual) Monocytes # (Manual) Eosinophils # (Manual) PT INR Heparin Anti-Xa Level 0.28 L ABG pH ABG pO2 68.3 L ABG HCO3 ABG O2 Saturation 94.3 L ABG Base Excess ABG Hemoglobin 7.1 L Oxyhemoglobin 92.3 L Sodium Potassium Chloride Carbon Dioxide BUN Creatinine Glucose POC Glucose Hemoglobin A1c Calcium Phosphorus Magnesium Ferritin AST ALT Alkaline Phosphatase Total Creatine Kinase CK-MB (CK-2) CK-MB (CK-2) Rel Index Troponin T Total Protein Albumin Triglycerides LDL Cholesterol Direct HDL Cholesterol Urine WBC (Auto) Urine Creatinine Crossmatch 03/20/20 03/20/20 03/20/20 05:12 07:49 12:15 WBC RBC Hgb Hct MCV MCHC RDW Plt Count Lymph % (Auto) [place] % (Auto) Lymph # [place] # Seg Neutrophils % Seg Neuts % (Manual) Lymphocytes % (Manual) Nucleated RBC % Seg Neutrophils # Seg Neutrophils # Man Lymphocytes # (Manual) Monocytes # (Manual) Eosinophils # (Manual) PT INR Heparin Anti-Xa Level ABG pH ABG pO2 ABG HCO3 ABG O2 Saturation ABG Base Excess ABG Hemoglobin Oxyhemoglobin Sodium 134 L Potassium Chloride Carbon Dioxide 21 L BUN 23 H Creatinine Glucose 275 H POC Glucose 294 H 357 H Hemoglobin A1c Calcium Phosphorus Magnesium Ferritin AST ALT Alkaline Phosphatase Total Creatine Kinase CK-MB (CK-2) CK-MB (CK-2) Rel Index Troponin T 3.200 H* D Total Protein Albumin Triglycerides LDL Cholesterol Direct HDL Cholesterol Urine WBC (Auto) Urine Creatinine Crossmatch 03/20/20 03/20/20 03/21/20 17:16 22:08 04:44 WBC RBC Hgb Hct MCV MCHC RDW Plt Count Lymph % (Auto) [place] % (Auto) Lymph # [place] # Seg Neutrophils % Seg Neuts % (Manual) Lymphocytes % (Manual) Nucleated RBC % Seg Neutrophils # Seg Neutrophils # Man Lymphocytes # (Manual) Monocytes # (Manual) Eosinophils # (Manual) PT INR Heparin Anti-Xa Level ABG pH ABG pO2 ABG HCO3 ABG O2 Saturation ABG Base Excess ABG Hemoglobin Oxyhemoglobin Sodium 136 L Potassium Chloride Carbon Dioxide 18 L BUN 26 H Creatinine Glucose 266 H POC Glucose 327 H 292 H Hemoglobin A1c Calcium 8.1 L Phosphorus Magnesium Ferritin AST ALT Alkaline Phosphatase Total Creatine Kinase CK-MB (CK-2) CK-MB (CK-2) Rel Index Troponin T Total Protein Albumin Triglycerides LDL Cholesterol Direct HDL Cholesterol Urine WBC (Auto) Urine Creatinine Crossmatch 03/21/20 03/21/20 03/21/20 07:50 12:25 15:53 WBC RBC Hgb Hct MCV MCHC RDW Plt Count Lymph % (Auto) [place] % (Auto) Lymph # [place] # Seg Neutrophils % Seg Neuts % (Manual) Lymphocytes % (Manual) Nucleated RBC % Seg Neutrophils # Seg Neutrophils # Man Lymphocytes # (Manual) Monocytes # (Manual) Eosinophils # (Manual) PT INR Heparin Anti-Xa Level ABG pH ABG pO2 ABG HCO3 ABG O2 Saturation ABG Base Excess ABG Hemoglobin Oxyhemoglobin Sodium Potassium Chloride Carbon Dioxide BUN Creatinine Glucose POC Glucose 271 H 314 H 436 H Hemoglobin A1c Calcium Phosphorus Magnesium Ferritin AST ALT Alkaline Phosphatase Total Creatine Kinase CK-MB (CK-2) CK-MB (CK-2) Rel Index Troponin T Total Protein Albumin Triglycerides LDL Cholesterol Direct HDL Cholesterol Urine WBC (Auto) Urine Creatinine Crossmatch 03/21/20 03/21/20 03/22/20 17:44 21:55 04:33 WBC RBC Hgb 10.0 L Hct 29.4 L MCV MCHC RDW Plt Count Lymph % (Auto) [place] % (Auto) Lymph # [place] # Seg Neutrophils % Seg Neuts % (Manual) Lymphocytes % (Manual) Nucleated RBC % Seg Neutrophils # Seg Neutrophils # Man Lymphocytes # (Manual) Monocytes # (Manual) Eosinophils # (Manual) PT INR Heparin Anti-Xa Level ABG pH ABG pO2 ABG HCO3 ABG O2 Saturation ABG Base Excess ABG Hemoglobin Oxyhemoglobin Sodium Potassium Chloride Carbon Dioxide BUN Creatinine Glucose POC Glucose 362 H 329 H Hemoglobin A1c Calcium Phosphorus Magnesium Ferritin AST ALT Alkaline Phosphatase Total Creatine Kinase CK-MB (CK-2) CK-MB (CK-2) Rel Index Troponin T Total Protein Albumin Triglycerides LDL Cholesterol Direct HDL Cholesterol Urine WBC (Auto) Urine Creatinine Crossmatch 03/22/20 03/22/20 03/22/20 08:57 14:12 19:57 WBC RBC Hgb Hct MCV MCHC RDW Plt Count Lymph % (Auto) [place] % (Auto) Lymph # [place] # Seg Neutrophils % Seg Neuts % (Manual) Lymphocytes % (Manual) Nucleated RBC % Seg Neutrophils # Seg Neutrophils # Man Lymphocytes # (Manual) Monocytes # (Manual) Eosinophils # (Manual) PT INR Heparin Anti-Xa Level ABG pH ABG pO2 ABG HCO3 ABG O2 Saturation ABG Base Excess ABG Hemoglobin Oxyhemoglobin Sodium Potassium Chloride Carbon Dioxide BUN Creatinine Glucose POC Glucose 284 H 319 H 356 H Hemoglobin A1c Calcium Phosphorus Magnesium Ferritin AST ALT Alkaline Phosphatase Total Creatine Kinase CK-MB (CK-2) CK-MB (CK-2) Rel Index Troponin T Total Protein Albumin Triglycerides LDL Cholesterol Direct HDL Cholesterol Urine WBC (Auto) Urine Creatinine Crossmatch 03/22/20 03/23/20 03/23/20 21:44 08:18 12:46 WBC RBC Hgb Hct MCV MCHC RDW Plt Count Lymph % (Auto) [place] % (Auto) Lymph # [place] # Seg Neutrophils % Seg Neuts % (Manual) Lymphocytes % (Manual) Nucleated RBC % Seg Neutrophils # Seg Neutrophils # Man Lymphocytes # (Manual) Monocytes # (Manual) Eosinophils # (Manual) PT INR Heparin Anti-Xa Level ABG pH ABG pO2 ABG HCO3 ABG O2 Saturation ABG Base Excess ABG Hemoglobin Oxyhemoglobin Sodium Potassium Chloride Carbon Dioxide BUN Creatinine Glucose POC Glucose 336 H 215 H 262 H Hemoglobin A1c Calcium Phosphorus Magnesium Ferritin AST ALT Alkaline Phosphatase Total Creatine Kinase CK-MB (CK-2) CK-MB (CK-2) Rel Index Troponin T Total Protein Albumin Triglycerides LDL Cholesterol Direct HDL Cholesterol Urine WBC (Auto) Urine Creatinine Crossmatch 03/23/20 03/23/20 03/24/20 15:56 22:05 02:35 WBC RBC Hgb 9.0 L Hct 25.8 L MCV MCHC RDW Plt Count Lymph % (Auto) [place] % (Auto) Lymph # [place] # Seg Neutrophils % Seg Neuts % (Manual) Lymphocytes % (Manual) Nucleated RBC % Seg Neutrophils # Seg Neutrophils # Man Lymphocytes # (Manual) Monocytes # (Manual) Eosinophils # (Manual) PT INR Heparin Anti-Xa Level ABG pH ABG pO2 ABG HCO3 ABG O2 Saturation ABG Base Excess ABG Hemoglobin Oxyhemoglobin Sodium Potassium Chloride Carbon Dioxide BUN Creatinine Glucose POC Glucose 246 H 322 H Hemoglobin A1c Calcium Phosphorus Magnesium Ferritin AST ALT Alkaline Phosphatase Total Creatine Kinase CK-MB (CK-2) CK-MB (CK-2) Rel Index Troponin T Total Protein Albumin Triglycerides LDL Cholesterol Direct HDL Cholesterol Urine WBC (Auto) Urine Creatinine Crossmatch 03/24/20 03/24/20 03/24/20 07:38 11:45 16:02 WBC RBC Hgb Hct MCV MCHC RDW Plt Count Lymph % (Auto) [place] % (Auto) Lymph # [place] # Seg Neutrophils % Seg Neuts % (Manual) Lymphocytes % (Manual) Nucleated RBC % Seg Neutrophils # Seg Neutrophils # Man Lymphocytes # (Manual) Monocytes # (Manual) Eosinophils # (Manual) PT INR Heparin Anti-Xa Level ABG pH ABG pO2 ABG HCO3 ABG O2 Saturation ABG Base Excess ABG Hemoglobin Oxyhemoglobin Sodium Potassium Chloride Carbon Dioxide BUN Creatinine Glucose POC Glucose 289 H 257 H 150 H Hemoglobin A1c Calcium Phosphorus Magnesium Ferritin AST ALT Alkaline Phosphatase Total Creatine Kinase CK-MB (CK-2) CK-MB (CK-2) Rel Index Troponin T Total Protein Albumin Triglycerides LDL Cholesterol Direct HDL Cholesterol Urine WBC (Auto) Urine Creatinine Crossmatch 03/24/20 03/25/20 03/25/20 21:24 04:06 07:39 WBC RBC Hgb Hct MCV MCHC RDW Plt Count Lymph % (Auto) [place] % (Auto) Lymph # [place] # Seg Neutrophils % Seg Neuts % (Manual) Lymphocytes % (Manual) Nucleated RBC % Seg Neutrophils # Seg Neutrophils # Man Lymphocytes # (Manual) Monocytes # (Manual) Eosinophils # (Manual) PT INR Heparin Anti-Xa Level 0.10 L ABG pH ABG pO2 ABG HCO3 ABG O2 Saturation ABG Base Excess ABG Hemoglobin Oxyhemoglobin Sodium Potassium Chloride Carbon Dioxide BUN Creatinine Glucose POC Glucose 228 H 332 H Hemoglobin A1c Calcium Phosphorus Magnesium Ferritin AST ALT Alkaline Phosphatase Total Creatine Kinase CK-MB (CK-2) CK-MB (CK-2) Rel Index Troponin T Total Protein Albumin Triglycerides LDL Cholesterol Direct HDL Cholesterol Urine WBC (Auto) Urine Creatinine Crossmatch 03/25/20 03/25/20 03/25/20 08:13 09:30 11:59 WBC 13.1 H RBC 2.82 L Hgb 8.5 L Hct 26.1 L MCV MCHC RDW Plt Count Lymph % (Auto) [place] % (Auto) Lymph # [place] # Seg Neutrophils % Seg Neuts % (Manual) Lymphocytes % (Manual) Nucleated RBC % Seg Neutrophils # Seg Neutrophils # Man Lymphocytes # (Manual) Monocytes # (Manual) Eosinophils # (Manual) PT INR Heparin Anti-Xa Level ABG pH ABG pO2 ABG HCO3 ABG O2 Saturation ABG Base Excess ABG Hemoglobin Oxyhemoglobin Sodium 131 L Potassium 5.3 H Chloride Carbon Dioxide 20 L BUN 39 H Creatinine 1.4 H Glucose 313 H POC Glucose 273 H Hemoglobin A1c Calcium 8.1 L Phosphorus Magnesium Ferritin AST ALT Alkaline Phosphatase Total Creatine Kinase CK-MB (CK-2) CK-MB (CK-2) Rel Index Troponin T Total Protein Albumin Triglycerides LDL Cholesterol Direct HDL Cholesterol Urine WBC (Auto) Urine Creatinine Crossmatch 03/25/20 03/25/20 03/25/20 13:54 15:58 18:21 WBC RBC Hgb Hct MCV MCHC RDW Plt Count Lymph % (Auto) [place] % (Auto) Lymph # [place] # Seg Neutrophils % Seg Neuts % (Manual) Lymphocytes % (Manual) Nucleated RBC % Seg Neutrophils # Seg Neutrophils # Man Lymphocytes # (Manual) Monocytes # (Manual) Eosinophils # (Manual) PT INR Heparin Anti-Xa Level ABG pH ABG pO2 ABG HCO3 ABG O2 Saturation ABG Base Excess ABG Hemoglobin Oxyhemoglobin Sodium Potassium Chloride Carbon Dioxide BUN Creatinine Glucose POC Glucose 246 H 235 H 185 H Hemoglobin A1c Calcium Phosphorus Magnesium Ferritin AST ALT Alkaline Phosphatase Total Creatine Kinase CK-MB (CK-2) CK-MB (CK-2) Rel Index Troponin T Total Protein Albumin Triglycerides LDL Cholesterol Direct HDL Cholesterol Urine WBC (Auto) Urine Creatinine Crossmatch 03/25/20 03/26/20 03/26/20 20:45 05:15 06:59 WBC 17.4 H 15.6 H RBC 3.05 L 3.05 L Hgb 9.1 L 9.2 L Hct 28.2 L 27.9 L MCV MCHC RDW Plt Count Lymph % (Auto) 8.9 L 8.9 L [place] % (Auto) Lymph # [place] # 1.0 H Seg Neutrophils % 84.4 H 84.8 H Seg Neuts % (Manual) Lymphocytes % (Manual) Nucleated RBC % Seg Neutrophils # 14.7 H 13.2 H Seg Neutrophils # Man Lymphocytes # (Manual) Monocytes # (Manual) Eosinophils # (Manual) PT INR Heparin Anti-Xa Level ABG pH ABG pO2 ABG HCO3 ABG O2 Saturation ABG Base Excess ABG Hemoglobin Oxyhemoglobin Sodium Potassium Chloride Carbon Dioxide BUN Creatinine Glucose POC Glucose 178 H Hemoglobin A1c Calcium Phosphorus Magnesium Ferritin AST ALT Alkaline Phosphatase Total Creatine Kinase CK-MB (CK-2) CK-MB (CK-2) Rel Index Troponin T Total Protein Albumin Triglycerides LDL Cholesterol Direct HDL Cholesterol Urine WBC (Auto) Urine Creatinine Crossmatch 03/26/20 03/26/20 03/26/20 06:59 07:43 11:56 WBC RBC Hgb Hct MCV MCHC RDW Plt Count Lymph % (Auto) [place] % (Auto) Lymph # [place] # Seg Neutrophils % Seg Neuts % (Manual) Lymphocytes % (Manual) Nucleated RBC % Seg Neutrophils # Seg Neutrophils # Man Lymphocytes # (Manual) Monocytes # (Manual) Eosinophils # (Manual) PT INR Heparin Anti-Xa Level ABG pH ABG pO2 ABG HCO3 ABG O2 Saturation ABG Base Excess ABG Hemoglobin Oxyhemoglobin Sodium 131 L Potassium 5.8 H Chloride Carbon Dioxide 16 L BUN 42 H Creatinine 1.4 H Glucose 163 H POC Glucose 170 H 198 H Hemoglobin A1c Calcium 8.0 L Phosphorus Magnesium Ferritin AST ALT Alkaline Phosphatase Total Creatine Kinase CK-MB (CK-2) CK-MB (CK-2) Rel Index Troponin T Total Protein Albumin Triglycerides LDL Cholesterol Direct HDL Cholesterol Urine WBC (Auto) Urine Creatinine Crossmatch 03/26/20 03/26/20 03/26/20 13:58 16:16 21:00 WBC RBC Hgb Hct MCV MCHC RDW Plt Count Lymph % (Auto) [place] % (Auto) Lymph # [place] # Seg Neutrophils % Seg Neuts % (Manual) Lymphocytes % (Manual) Nucleated RBC % Seg Neutrophils # Seg Neutrophils # Man Lymphocytes # (Manual) Monocytes # (Manual) Eosinophils # (Manual) PT INR Heparin Anti-Xa Level ABG pH ABG pO2 ABG HCO3 ABG O2 Saturation ABG Base Excess ABG Hemoglobin Oxyhemoglobin Sodium 128 L Potassium 6.0 H Chloride Carbon Dioxide 15 L BUN 45 H Creatinine 1.4 H Glucose 190 H POC Glucose 184 H 192 H Hemoglobin A1c Calcium 8.2 L Phosphorus Magnesium Ferritin AST ALT Alkaline Phosphatase Total Creatine Kinase CK-MB (CK-2) CK-MB (CK-2) Rel Index Troponin T Total Protein Albumin Triglycerides LDL Cholesterol Direct HDL Cholesterol Urine WBC (Auto) Urine Creatinine Crossmatch 03/27/20 03/27/20 03/27/20 08:32 11:51 14:39 WBC 22.9 H RBC 2.68 L Hgb 7.9 L Hct 24.7 L MCV MCHC RDW Plt Count Lymph % (Auto) [place] % (Auto) Lymph # [place] # Seg Neutrophils % Seg Neuts % (Manual) Lymphocytes % (Manual) Nucleated RBC % Seg Neutrophils # Seg Neutrophils # Man Lymphocytes # (Manual) Monocytes # (Manual) Eosinophils # (Manual) PT INR Heparin Anti-Xa Level ABG pH ABG pO2 ABG HCO3 ABG O2 Saturation ABG Base Excess ABG Hemoglobin Oxyhemoglobin Sodium Potassium Chloride Carbon Dioxide BUN Creatinine Glucose POC Glucose 233 H 252 H Hemoglobin A1c Calcium Phosphorus Magnesium Ferritin AST ALT Alkaline Phosphatase Total Creatine Kinase CK-MB (CK-2) CK-MB (CK-2) Rel Index Troponin T Total Protein Albumin Triglycerides LDL Cholesterol Direct HDL Cholesterol Urine WBC (Auto) Urine Creatinine Crossmatch 03/27/20 03/27/20 03/27/20 14:39 15:19 21:35 WBC RBC Hgb Hct MCV MCHC RDW Plt Count Lymph % (Auto) [place] % (Auto) Lymph # [place] # Seg Neutrophils % Seg Neuts % (Manual) Lymphocytes % (Manual) Nucleated RBC % Seg Neutrophils # Seg Neutrophils # Man Lymphocytes # (Manual) Monocytes # (Manual) Eosinophils # (Manual) PT INR Heparin Anti-Xa Level ABG pH ABG pO2 ABG HCO3 ABG O2 Saturation ABG Base Excess ABG Hemoglobin Oxyhemoglobin Sodium 133 L Potassium 5.5 H Chloride Carbon Dioxide 16 L BUN 46 H Creatinine 1.4 H Glucose 225 H POC Glucose 239 H 202 H Hemoglobin A1c Calcium 8.2 L Phosphorus Magnesium Ferritin AST ALT Alkaline Phosphatase Total Creatine Kinase CK-MB (CK-2) CK-MB (CK-2) Rel Index Troponin T Total Protein Albumin Triglycerides LDL Cholesterol Direct HDL Cholesterol Urine WBC (Auto) Urine Creatinine Crossmatch 03/28/20 03/28/20 03/28/20 07:39 07:39 08:36 WBC 22.4 H RBC 2.71 L Hgb 7.9 L Hct 24.5 L MCV MCHC RDW Plt Count Lymph % (Auto) [place] % (Auto) Lymph # [place] # Seg Neutrophils % Seg Neuts % (Manual) 88.0 H Lymphocytes % (Manual) 5.0 L Nucleated RBC % Seg Neutrophils # Seg Neutrophils # Man 19.7 H Lymphocytes # (Manual) 1.1 L Monocytes # (Manual) 1.6 H Eosinophils # (Manual) PT INR Heparin Anti-Xa Level ABG pH ABG pO2 ABG HCO3 ABG O2 Saturation ABG Base Excess ABG Hemoglobin Oxyhemoglobin Sodium 134 L Potassium Chloride Carbon Dioxide 19 L BUN 47 H Creatinine Glucose 240 H POC Glucose 253 H Hemoglobin A1c Calcium 7.8 L Phosphorus Magnesium Ferritin AST ALT Alkaline Phosphatase Total Creatine Kinase CK-MB (CK-2) CK-MB (CK-2) Rel Index Troponin T Total Protein Albumin Triglycerides LDL Cholesterol Direct HDL Cholesterol Urine WBC (Auto) Urine Creatinine Crossmatch 03/28/20 03/28/20 03/28/20 11:54 17:08 21:17 WBC RBC Hgb Hct MCV MCHC RDW Plt Count Lymph % (Auto) [place] % (Auto) Lymph # [place] # Seg Neutrophils % Seg Neuts % (Manual) Lymphocytes % (Manual) Nucleated RBC % Seg Neutrophils # Seg Neutrophils # Man Lymphocytes # (Manual) Monocytes # (Manual) Eosinophils # (Manual) PT INR Heparin Anti-Xa Level ABG pH ABG pO2 ABG HCO3 ABG O2 Saturation ABG Base Excess ABG Hemoglobin Oxyhemoglobin Sodium Potassium Chloride Carbon Dioxide BUN Creatinine Glucose POC Glucose 306 H 178 H 186 H Hemoglobin A1c Calcium Phosphorus Magnesium Ferritin AST ALT Alkaline Phosphatase Total Creatine Kinase CK-MB (CK-2) CK-MB (CK-2) Rel Index Troponin T Total Protein Albumin Triglycerides LDL Cholesterol Direct HDL Cholesterol Urine WBC (Auto) Urine Creatinine Crossmatch 03/29/20 03/29/20 03/29/20 08:32 12:04 14:19 WBC 21.5 H RBC 2.82 L Hgb 8.4 L Hct 26.1 L MCV MCHC RDW Plt Count Lymph % (Auto) [place] % (Auto) Lymph # [place] # Seg Neutrophils % Seg Neuts % (Manual) 85.0 H Lymphocytes % (Manual) 11.0 L Nucleated RBC % 3.0 H Seg Neutrophils # Seg Neutrophils # Man 18.3 H Lymphocytes # (Manual) Monocytes # (Manual) Eosinophils # (Manual) 0.6 H PT INR Heparin Anti-Xa Level ABG pH ABG pO2 ABG HCO3 ABG O2 Saturation ABG Base Excess ABG Hemoglobin Oxyhemoglobin Sodium Potassium Chloride Carbon Dioxide BUN Creatinine Glucose POC Glucose 110 H 263 H Hemoglobin A1c Calcium Phosphorus Magnesium Ferritin AST ALT Alkaline Phosphatase Total Creatine Kinase CK-MB (CK-2) CK-MB (CK-2) Rel Index Troponin T Total Protein Albumin Triglycerides LDL Cholesterol Direct HDL Cholesterol Urine WBC (Auto) Urine Creatinine Crossmatch 03/29/20 03/29/20 03/30/20 16:17 22:57 11:00 WBC RBC Hgb Hct MCV MCHC RDW Plt Count Lymph % (Auto) [place] % (Auto) Lymph # [place] # Seg Neutrophils % Seg Neuts % (Manual) Lymphocytes % (Manual) Nucleated RBC % Seg Neutrophils # Seg Neutrophils # Man Lymphocytes # (Manual) Monocytes # (Manual) Eosinophils # (Manual) PT INR Heparin Anti-Xa Level ABG pH ABG pO2 ABG HCO3 ABG O2 Saturation ABG Base Excess ABG Hemoglobin Oxyhemoglobin Sodium Potassium Chloride Carbon Dioxide BUN Creatinine Glucose POC Glucose 109 H 194 H 129 H Hemoglobin A1c Calcium Phosphorus Magnesium Ferritin AST ALT Alkaline Phosphatase Total Creatine Kinase CK-MB (CK-2) CK-MB (CK-2) Rel Index Troponin T Total Protein Albumin Triglycerides LDL Cholesterol Direct HDL Cholesterol Urine WBC (Auto) Urine Creatinine Crossmatch 03/30/20 03/30/20 03/31/20 15:16 21:54 04:27 WBC 15.8 H RBC 2.62 L Hgb 7.7 L Hct 24.1 L MCV MCHC RDW Plt Count Lymph % (Auto) 9.4 L [place] % (Auto) Lymph # [place] # Seg Neutrophils % 84.4 H Seg Neuts % (Manual) Lymphocytes % (Manual) Nucleated RBC % Seg Neutrophils # 13.3 H Seg Neutrophils # Man Lymphocytes # (Manual) Monocytes # (Manual) Eosinophils # (Manual) PT INR Heparin Anti-Xa Level ABG pH ABG pO2 ABG HCO3 ABG O2 Saturation ABG Base Excess ABG Hemoglobin Oxyhemoglobin Sodium Potassium Chloride Carbon Dioxide BUN Creatinine Glucose POC Glucose 115 H 166 H Hemoglobin A1c Calcium Phosphorus Magnesium Ferritin AST ALT Alkaline Phosphatase Total Creatine Kinase CK-MB (CK-2) CK-MB (CK-2) Rel Index Troponin T Total Protein Albumin Triglycerides LDL Cholesterol Direct HDL Cholesterol Urine WBC (Auto) Urine Creatinine Crossmatch 03/31/20 03/31/20 03/31/20 04:27 07:37 11:46 WBC RBC Hgb Hct MCV MCHC RDW Plt Count Lymph % (Auto) [place] % (Auto) Lymph # [place] # Seg Neutrophils % Seg Neuts % (Manual) Lymphocytes % (Manual) Nucleated RBC % Seg Neutrophils # Seg Neutrophils # Man Lymphocytes # (Manual) Monocytes # (Manual) Eosinophils # (Manual) PT INR Heparin Anti-Xa Level ABG pH ABG pO2 ABG HCO3 ABG O2 Saturation ABG Base Excess ABG Hemoglobin Oxyhemoglobin Sodium 133 L Potassium Chloride 96.6 L Carbon Dioxide 18 L BUN 75 H Creatinine 2.5 H D Glucose 129 H POC Glucose 156 H 224 H Hemoglobin A1c Calcium 8.0 L Phosphorus Magnesium Ferritin AST ALT Alkaline Phosphatase Total Creatine Kinase CK-MB (CK-2) CK-MB (CK-2) Rel Index Troponin T Total Protein Albumin Triglycerides LDL Cholesterol Direct HDL Cholesterol Urine WBC (Auto) Urine Creatinine Crossmatch 04/01/20 04/01/20 04/01/20 08:34 10:52 10:52 WBC 12.9 H RBC 2.75 L Hgb 8.2 L Hct 24.8 L MCV MCHC RDW Plt Count Lymph % (Auto) 10.6 L [place] % (Auto) Lymph # [place] # Seg Neutrophils % 83.7 H Seg Neuts % (Manual) Lymphocytes % (Manual) Nucleated RBC % Seg Neutrophils # 10.8 H Seg Neutrophils # Man Lymphocytes # (Manual) Monocytes # (Manual) Eosinophils # (Manual) PT INR Heparin Anti-Xa Level ABG pH ABG pO2 ABG HCO3 ABG O2 Saturation ABG Base Excess ABG Hemoglobin Oxyhemoglobin Sodium 131 L Potassium Chloride 96.1 L Carbon Dioxide 17 L BUN 77 H Creatinine 2.3 H Glucose 205 H POC Glucose 110 H Hemoglobin A1c Calcium 7.9 L Phosphorus Magnesium Ferritin AST ALT Alkaline Phosphatase Total Creatine Kinase CK-MB (CK-2) CK-MB (CK-2) Rel Index Troponin T Total Protein Albumin Triglycerides LDL Cholesterol Direct HDL Cholesterol Urine WBC (Auto) Urine Creatinine Crossmatch 04/01/20 04/01/20 04/01/20 12:15 17:22 20:47 WBC RBC Hgb Hct MCV MCHC RDW Plt Count Lymph % (Auto) [place] % (Auto) Lymph # [place] # Seg Neutrophils % Seg Neuts % (Manual) Lymphocytes % (Manual) Nucleated RBC % Seg Neutrophils # Seg Neutrophils # Man Lymphocytes # (Manual) Monocytes # (Manual) Eosinophils # (Manual) PT INR Heparin Anti-Xa Level ABG pH ABG pO2 ABG HCO3 ABG O2 Saturation ABG Base Excess ABG Hemoglobin Oxyhemoglobin Sodium Potassium Chloride Carbon Dioxide BUN Creatinine Glucose POC Glucose 201 H 219 H 156 H Hemoglobin A1c Calcium Phosphorus Magnesium Ferritin AST ALT Alkaline Phosphatase Total Creatine Kinase CK-MB (CK-2) CK-MB (CK-2) Rel Index Troponin T Total Protein Albumin Triglycerides LDL Cholesterol Direct HDL Cholesterol Urine WBC (Auto) Urine Creatinine Crossmatch 04/02/20 04/02/20 04/02/20 05:44 05:44 11:32 WBC 15.8 H RBC 2.81 L Hgb 8.2 L Hct 25.7 L MCV MCHC RDW Plt Count Lymph % (Auto) [place] % (Auto) Lymph # [place] # 0.9 H Seg Neutrophils % 77.7 H Seg Neuts % (Manual) Lymphocytes % (Manual) Nucleated RBC % Seg Neutrophils # 12.3 H Seg Neutrophils # Man Lymphocytes # (Manual) Monocytes # (Manual) Eosinophils # (Manual) PT INR Heparin Anti-Xa Level ABG pH ABG pO2 ABG HCO3 ABG O2 Saturation ABG Base Excess ABG Hemoglobin Oxyhemoglobin Sodium 134 L Potassium Chloride Carbon Dioxide 19 L BUN 76 H Creatinine 2.0 H Glucose POC Glucose 116 H Hemoglobin A1c Calcium 8.0 L Phosphorus Magnesium Ferritin AST 291 H ALT 169 H Alkaline Phosphatase 256 H Total Creatine Kinase CK-MB (CK-2) CK-MB (CK-2) Rel Index Troponin T Total Protein 6.1 L Albumin 2.2 L Triglycerides LDL Cholesterol Direct HDL Cholesterol Urine WBC (Auto) Urine Creatinine Crossmatch 04/02/20 04/02/20 04/03/20 16:56 22:03 08:13 WBC RBC Hgb Hct MCV MCHC RDW Plt Count Lymph % (Auto) [place] % (Auto) Lymph # [place] # Seg Neutrophils % Seg Neuts % (Manual) Lymphocytes % (Manual) Nucleated RBC % Seg Neutrophils # Seg Neutrophils # Man Lymphocytes # (Manual) Monocytes # (Manual) Eosinophils # (Manual) PT INR Heparin Anti-Xa Level ABG pH ABG pO2 ABG HCO3 ABG O2 Saturation ABG Base Excess ABG Hemoglobin Oxyhemoglobin Sodium Potassium Chloride Carbon Dioxide BUN Creatinine Glucose POC Glucose 141 H 152 H 126 H Hemoglobin A1c Calcium Phosphorus Magnesium Ferritin AST ALT Alkaline Phosphatase Total Creatine Kinase CK-MB (CK-2) CK-MB (CK-2) Rel Index Troponin T Total Protein Albumin Triglycerides LDL Cholesterol Direct HDL Cholesterol Urine WBC (Auto) Urine Creatinine Crossmatch 04/03/20 04/03/20 04/03/20 12:11 16:26 21:33 WBC RBC Hgb Hct MCV MCHC RDW Plt Count Lymph % (Auto) [place] % (Auto) Lymph # [place] # Seg Neutrophils % Seg Neuts % (Manual) Lymphocytes % (Manual) Nucleated RBC % Seg Neutrophils # Seg Neutrophils # Man Lymphocytes # (Manual) Monocytes # (Manual) Eosinophils # (Manual) PT INR Heparin Anti-Xa Level ABG pH ABG pO2 ABG HCO3 ABG O2 Saturation ABG Base Excess ABG Hemoglobin Oxyhemoglobin Sodium Potassium Chloride Carbon Dioxide BUN Creatinine Glucose POC Glucose 139 H 164 H 147 H Hemoglobin A1c Calcium Phosphorus Magnesium Ferritin AST ALT Alkaline Phosphatase Total Creatine Kinase CK-MB (CK-2) CK-MB (CK-2) Rel Index Troponin T Total Protein Albumin Triglycerides LDL Cholesterol Direct HDL Cholesterol Urine WBC (Auto) Urine Creatinine Crossmatch 04/04/20 04/04/20 04/04/20 04:29 04:29 11:29 WBC 12.3 H RBC 2.88 L Hgb 8.4 L Hct 26.1 L MCV MCHC RDW Plt Count Lymph % (Auto) [place] % (Auto) Lymph # [place] # Seg Neutrophils % 75.4 H Seg Neuts % (Manual) Lymphocytes % (Manual) Nucleated RBC % Seg Neutrophils # 9.3 H Seg Neutrophils # Man Lymphocytes # (Manual) Monocytes # (Manual) Eosinophils # (Manual) PT INR Heparin Anti-Xa Level ABG pH ABG pO2 ABG HCO3 ABG O2 Saturation ABG Base Excess ABG Hemoglobin Oxyhemoglobin Sodium 136 L Potassium Chloride Carbon Dioxide 19 L BUN 71 H Creatinine 1.7 H Glucose POC Glucose 108 H Hemoglobin A1c Calcium 8.0 L Phosphorus Magnesium Ferritin AST 673 H ALT 252 H Alkaline Phosphatase 311 H Total Creatine Kinase CK-MB (CK-2) CK-MB (CK-2) Rel Index Troponin T Total Protein Albumin 2.2 L Triglycerides LDL Cholesterol Direct HDL Cholesterol Urine WBC (Auto) Urine Creatinine Crossmatch 04/04/20 04/04/20 04/05/20 16:34 20:58 03:54 WBC 13.7 H RBC 3.03 L Hgb 8.7 L Hct 27.9 L MCV MCHC 31 L RDW 15.5 H Plt Count Lymph % (Auto) [place] % (Auto) Lymph # [place] # Seg Neutrophils % 78.9 H Seg Neuts % (Manual) Lymphocytes % (Manual) Nucleated RBC % Seg Neutrophils # 10.8 H Seg Neutrophils # Man Lymphocytes # (Manual) Monocytes # (Manual) Eosinophils # (Manual) PT INR Heparin Anti-Xa Level ABG pH ABG pO2 ABG HCO3 ABG O2 Saturation ABG Base Excess ABG Hemoglobin Oxyhemoglobin Sodium Potassium Chloride Carbon Dioxide BUN Creatinine Glucose POC Glucose 151 H 131 H Hemoglobin A1c Calcium Phosphorus Magnesium Ferritin AST ALT Alkaline Phosphatase Total Creatine Kinase CK-MB (CK-2) CK-MB (CK-2) Rel Index Troponin T Total Protein Albumin Triglycerides LDL Cholesterol Direct HDL Cholesterol Urine WBC (Auto) Urine Creatinine Crossmatch 04/05/20 04/05/20 04/05/20 03:54 15:58 15:58 WBC RBC Hgb Hct MCV MCHC RDW Plt Count Lymph % (Auto) [place] % (Auto) Lymph # [place] # Seg Neutrophils % Seg Neuts % (Manual) Lymphocytes % (Manual) Nucleated RBC % Seg Neutrophils # Seg Neutrophils # Man Lymphocytes # (Manual) Monocytes # (Manual) Eosinophils # (Manual) PT INR Heparin Anti-Xa Level ABG pH ABG pO2 67.1 L ABG HCO3 26.1 H ABG O2 Saturation 93.4 L ABG Base Excess ABG Hemoglobin 9.0 L Oxyhemoglobin 91.6 L Sodium 136 L Potassium 5.5 H Chloride Carbon Dioxide 21 L BUN 79 H Creatinine 1.9 H Glucose 63 L POC Glucose 129 H Hemoglobin A1c Calcium 8.2 L Phosphorus Magnesium Ferritin AST 696 H ALT 262 H Alkaline Phosphatase 325 H Total Creatine Kinase CK-MB (CK-2) CK-MB (CK-2) Rel Index Troponin T Total Protein Albumin 2.3 L Triglycerides LDL Cholesterol Direct HDL Cholesterol Urine WBC (Auto) Urine Creatinine Crossmatch 04/05/20 04/06/20 04/06/20 22:33 07:14 07:14 WBC RBC Hgb Hct MCV MCHC RDW Plt Count Lymph % (Auto) [place] % (Auto) Lymph # [place] # Seg Neutrophils % Seg Neuts % (Manual) Lymphocytes % (Manual) Nucleated RBC % Seg Neutrophils # Seg Neutrophils # Man Lymphocytes # (Manual) Monocytes # (Manual) Eosinophils # (Manual) PT INR Heparin Anti-Xa Level ABG pH ABG pO2 ABG HCO3 ABG O2 Saturation ABG Base Excess ABG Hemoglobin Oxyhemoglobin Sodium Potassium 5.6 H Chloride Carbon Dioxide BUN 83 H Creatinine 1.9 H Glucose 202 H POC Glucose 253 H Hemoglobin A1c Calcium Phosphorus Magnesium Ferritin 444.2 H AST 469 H ALT 237 H Alkaline Phosphatase 332 H Total Creatine Kinase CK-MB (CK-2) CK-MB (CK-2) Rel Index Troponin T Total Protein Albumin 2.2 L Triglycerides LDL Cholesterol Direct HDL Cholesterol Urine WBC (Auto) Urine Creatinine Crossmatch 04/06/20 04/06/20 04/06/20 08:23 12:00 13:56 WBC RBC Hgb Hct MCV MCHC RDW Plt Count Lymph % (Auto) [place] % (Auto) Lymph # [place] # Seg Neutrophils % Seg Neuts % (Manual) Lymphocytes % (Manual) Nucleated RBC % Seg Neutrophils # Seg Neutrophils # Man Lymphocytes # (Manual) Monocytes # (Manual) Eosinophils # (Manual) PT 27.0 H INR 2.44 H Heparin Anti-Xa Level ABG pH ABG pO2 ABG HCO3 ABG O2 Saturation ABG Base Excess ABG Hemoglobin Oxyhemoglobin Sodium Potassium Chloride Carbon Dioxide BUN Creatinine Glucose POC Glucose 226 H 176 H Hemoglobin A1c Calcium Phosphorus Magnesium Ferritin AST ALT Alkaline Phosphatase Total Creatine Kinase CK-MB (CK-2) CK-MB (CK-2) Rel Index Troponin T Total Protein Albumin Triglycerides LDL Cholesterol Direct HDL Cholesterol Urine WBC (Auto) Urine Creatinine Crossmatch 04/06/20 04/07/20 04/07/20 20:45 04:58 04:58 WBC RBC Hgb Hct MCV MCHC RDW Plt Count Lymph % (Auto) [place] % (Auto) Lymph # [place] # Seg Neutrophils % Seg Neuts % (Manual) Lymphocytes % (Manual) Nucleated RBC % Seg Neutrophils # Seg Neutrophils # Man Lymphocytes # (Manual) Monocytes # (Manual) Eosinophils # (Manual) PT 30.9 H INR 2.89 H Heparin Anti-Xa Level ABG pH ABG pO2 ABG HCO3 ABG O2 Saturation ABG Base Excess ABG Hemoglobin Oxyhemoglobin Sodium Potassium 6.0 H Chloride Carbon Dioxide BUN 85 H Creatinine 2.1 H Glucose 177 H POC Glucose 139 H Hemoglobin A1c Calcium Phosphorus Magnesium Ferritin AST 351 H ALT 215 H Alkaline Phosphatase 332 H Total Creatine Kinase CK-MB (CK-2) CK-MB (CK-2) Rel Index Troponin T Total Protein Albumin 2.7 L Triglycerides LDL Cholesterol Direct HDL Cholesterol Urine WBC (Auto) Urine Creatinine Crossmatch 04/07/20 04/07/20 04/08/20 07:53 11:51 04:44 WBC 11.7 H RBC 3.07 L Hgb 9.1 L Hct 28.9 L MCV MCHC RDW 16.8 H Plt Count Lymph % (Auto) 12.4 L [place] % (Auto) Lymph # [place] # Seg Neutrophils % 83.3 H Seg Neuts % (Manual) Lymphocytes % (Manual) Nucleated RBC % Seg Neutrophils # 9.7 H Seg Neutrophils # Man Lymphocytes # (Manual) Monocytes # (Manual) Eosinophils # (Manual) PT INR Heparin Anti-Xa Level ABG pH ABG pO2 ABG HCO3 ABG O2 Saturation ABG Base Excess ABG Hemoglobin Oxyhemoglobin Sodium Potassium Chloride Carbon Dioxide BUN Creatinine Glucose POC Glucose 167 H 120 H Hemoglobin A1c Calcium Phosphorus Magnesium Ferritin AST ALT Alkaline Phosphatase Total Creatine Kinase CK-MB (CK-2) CK-MB (CK-2) Rel Index Troponin T Total Protein Albumin Triglycerides LDL Cholesterol Direct HDL Cholesterol Urine WBC (Auto) Urine Creatinine Crossmatch 04/08/20 04/08/20 04/08/20 04:44 07:19 08:43 WBC RBC Hgb Hct MCV MCHC RDW Plt Count Lymph % (Auto) [place] % (Auto) Lymph # [place] # Seg Neutrophils % Seg Neuts % (Manual) Lymphocytes % (Manual) Nucleated RBC % Seg Neutrophils # Seg Neutrophils # Man Lymphocytes # (Manual) Monocytes # (Manual) Eosinophils # (Manual) PT INR Heparin Anti-Xa Level ABG pH ABG pO2 ABG HCO3 ABG O2 Saturation ABG Base Excess ABG Hemoglobin Oxyhemoglobin Sodium Potassium 6.3 H* Chloride Carbon Dioxide 21 L BUN 89 H Creatinine 1.9 H Glucose 63 L POC Glucose 65 L 168 H Hemoglobin A1c Calcium Phosphorus Magnesium Ferritin AST 370 H ALT 211 H Alkaline Phosphatase 320 H Total Creatine Kinase CK-MB (CK-2) CK-MB (CK-2) Rel Index Troponin T Total Protein Albumin 2.6 L Triglycerides LDL Cholesterol Direct HDL Cholesterol Urine WBC (Auto) Urine Creatinine Crossmatch 04/08/20 04/08/20 04/08/20 12:53 16:38 21:47 WBC RBC Hgb Hct MCV MCHC RDW Plt Count Lymph % (Auto) [place] % (Auto) Lymph # [place] # Seg Neutrophils % Seg Neuts % (Manual) Lymphocytes % (Manual) Nucleated RBC % Seg Neutrophils # Seg Neutrophils # Man Lymphocytes # (Manual) Monocytes # (Manual) Eosinophils # (Manual) PT INR Heparin Anti-Xa Level ABG pH ABG pO2 ABG HCO3 ABG O2 Saturation ABG Base Excess ABG Hemoglobin Oxyhemoglobin Sodium Potassium 6.0 H Chloride Carbon Dioxide BUN 90 H Creatinine 2.1 H Glucose 124 H POC Glucose 129 H 118 H Hemoglobin A1c Calcium Phosphorus Magnesium Ferritin AST ALT Alkaline Phosphatase Total Creatine Kinase CK-MB (CK-2) CK-MB (CK-2) Rel Index Troponin T Total Protein Albumin Triglycerides LDL Cholesterol Direct HDL Cholesterol Urine WBC (Auto) Urine Creatinine Crossmatch 04/09/20 04/09/20 04/09/20 03:45 08:04 19:10 WBC RBC Hgb Hct MCV MCHC RDW Plt Count Lymph % (Auto) [place] % (Auto) Lymph # [place] # Seg Neutrophils % Seg Neuts % (Manual) Lymphocytes % (Manual) Nucleated RBC % Seg Neutrophils # Seg Neutrophils # Man Lymphocytes # (Manual) Monocytes # (Manual) Eosinophils # (Manual) PT INR Heparin Anti-Xa Level ABG pH 7.304 L ABG pO2 72.2 L ABG HCO3 ABG O2 Saturation 93.7 L ABG Base Excess -3.3 L ABG Hemoglobin 8.9 L Oxyhemoglobin 91.8 L Sodium Potassium 6.6 H* 6.5 H* Chloride Carbon Dioxide 21 L BUN 99 H 100 H Creatinine 2.2 H 2.3 H Glucose POC Glucose Hemoglobin A1c Calcium 8.2 L Phosphorus Magnesium Ferritin AST ALT Alkaline Phosphatase Total Creatine Kinase CK-MB (CK-2) CK-MB (CK-2) Rel Index Troponin T Total Protein Albumin Triglycerides LDL Cholesterol Direct HDL Cholesterol Urine WBC (Auto) Urine Creatinine Crossmatch 04/10/20 04/10/20 04/10/20 05:48 05:48 08:53 WBC RBC 3.01 L Hgb 8.9 L Hct 28.4 L MCV 95 H MCHC 31 L RDW 17.6 H Plt Count Lymph % (Auto) 11.4 L [place] % (Auto) Lymph # 1.1 L [place] # Seg Neutrophils % 81.1 H Seg Neuts % (Manual) Lymphocytes % (Manual) Nucleated RBC % Seg Neutrophils # 8.1 H Seg Neutrophils # Man Lymphocytes # (Manual) Monocytes # (Manual) Eosinophils # (Manual) PT INR Heparin Anti-Xa Level ABG pH ABG pO2 ABG HCO3 ABG O2 Saturation ABG Base Excess ABG Hemoglobin Oxyhemoglobin Sodium Potassium 5.2 H Chloride Carbon Dioxide BUN 104 H Creatinine 2.2 H Glucose 129 H POC Glucose 110 H Hemoglobin A1c Calcium Phosphorus Magnesium 2.80 H Ferritin AST 502 H ALT 249 H Alkaline Phosphatase 323 H Total Creatine Kinase CK-MB (CK-2) CK-MB (CK-2) Rel Index Troponin T Total Protein Albumin 2.5 L Triglycerides LDL Cholesterol Direct HDL Cholesterol Urine WBC (Auto) Urine Creatinine Crossmatch 04/10/20 04/10/20 04/10/20 11:42 16:05 21:35 WBC RBC Hgb Hct MCV MCHC RDW Plt Count Lymph % (Auto) [place] % (Auto) Lymph # [place] # Seg Neutrophils % Seg Neuts % (Manual) Lymphocytes % (Manual) Nucleated RBC % Seg Neutrophils # Seg Neutrophils # Man Lymphocytes # (Manual) Monocytes # (Manual) Eosinophils # (Manual) PT INR Heparin Anti-Xa Level ABG pH ABG pO2 ABG HCO3 ABG O2 Saturation ABG Base Excess ABG Hemoglobin Oxyhemoglobin Sodium Potassium Chloride Carbon Dioxide BUN Creatinine Glucose POC Glucose 135 H 137 H 151 H Hemoglobin A1c Calcium Phosphorus Magnesium Ferritin AST ALT Alkaline Phosphatase Total Creatine Kinase CK-MB (CK-2) CK-MB (CK-2) Rel Index Troponin T Total Protein Albumin Triglycerides LDL Cholesterol Direct HDL Cholesterol Urine WBC (Auto) Urine Creatinine Crossmatch 04/11/20 04/11/20 04/11/20 06:26 06:26 06:26 WBC RBC 2.89 L Hgb 8.6 L Hct 27.4 L MCV 95 H MCHC 31 L RDW 17.5 H Plt Count Lymph % (Auto) 9.9 L [place] % (Auto) Lymph # 1.0 L [place] # Seg Neutrophils % 85.7 H Seg Neuts % (Manual) Lymphocytes % (Manual) Nucleated RBC % Seg Neutrophils # 8.8 H Seg Neutrophils # Man Lymphocytes # (Manual) Monocytes # (Manual) Eosinophils # (Manual) PT 24.0 H INR 2.10 H Heparin Anti-Xa Level ABG pH ABG pO2 ABG HCO3 ABG O2 Saturation ABG Base Excess ABG Hemoglobin Oxyhemoglobin Sodium 146 H Potassium 5.3 H Chloride 108.2 H Carbon Dioxide BUN 109 H Creatinine 2.1 H Glucose 160 H POC Glucose Hemoglobin A1c Calcium Phosphorus Magnesium Ferritin AST 298 H ALT 207 H Alkaline Phosphatase 274 H Total Creatine Kinase CK-MB (CK-2) CK-MB (CK-2) Rel Index Troponin T Total Protein Albumin 2.5 L Triglycerides LDL Cholesterol Direct HDL Cholesterol Urine WBC (Auto) Urine Creatinine Crossmatch 04/11/20 04/11/20 04/11/20 07:57 11:33 16:07 WBC RBC Hgb Hct MCV MCHC RDW Plt Count Lymph % (Auto) [place] % (Auto) Lymph # [place] # Seg Neutrophils % Seg Neuts % (Manual) Lymphocytes % (Manual) Nucleated RBC % Seg Neutrophils # Seg Neutrophils # Man Lymphocytes # (Manual) Monocytes # (Manual) Eosinophils # (Manual) PT INR Heparin Anti-Xa Level ABG pH ABG pO2 ABG HCO3 ABG O2 Saturation ABG Base Excess ABG Hemoglobin Oxyhemoglobin Sodium Potassium Chloride Carbon Dioxide BUN Creatinine Glucose POC Glucose 170 H 167 H 140 H Hemoglobin A1c Calcium Phosphorus Magnesium Ferritin AST ALT Alkaline Phosphatase Total Creatine Kinase CK-MB (CK-2) CK-MB (CK-2) Rel Index Troponin T Total Protein Albumin Triglycerides LDL Cholesterol Direct HDL Cholesterol Urine WBC (Auto) Urine Creatinine Crossmatch 04/11/20 04/11/20 04/11/20 16:30 16:30 16:50 WBC RBC Hgb Hct MCV MCHC RDW Plt Count Lymph % (Auto) [place] % (Auto) Lymph # [place] # Seg Neutrophils % Seg Neuts % (Manual) Lymphocytes % (Manual) Nucleated RBC % Seg Neutrophils # Seg Neutrophils # Man Lymphocytes # (Manual) Monocytes # (Manual) Eosinophils # (Manual) PT INR Heparin Anti-Xa Level ABG pH 7.325 L ABG pO2 304.4 H ABG HCO3 ABG O2 Saturation 99.5 H ABG Base Excess -4.4 L ABG Hemoglobin 10.9 L Oxyhemoglobin Sodium Potassium Chloride Carbon Dioxide BUN Creatinine Glucose POC Glucose Hemoglobin A1c Calcium Phosphorus Magnesium Ferritin AST ALT Alkaline Phosphatase Total Creatine Kinase CK-MB (CK-2) CK-MB (CK-2) Rel Index Troponin T Total Protein Albumin Triglycerides LDL Cholesterol Direct HDL Cholesterol Urine WBC (Auto) 16.0 H Urine Creatinine 60.0 H Crossmatch 04/11/20 04/11/20 04/11/20 18:17 18:17 18:57 WBC RBC 2.71 L Hgb 7.9 L Hct 26.1 L MCV 96 H MCHC 30 L RDW 18.3 H Plt Count Lymph % (Auto) [place] % (Auto) Lymph # [place] # Seg Neutrophils % Seg Neuts % (Manual) 89.0 H Lymphocytes % (Manual) 7.0 L Nucleated RBC % Seg Neutrophils # Seg Neutrophils # Man 8.8 H Lymphocytes # (Manual) 0.7 L Monocytes # (Manual) Eosinophils # (Manual) PT INR Heparin Anti-Xa Level ABG pH ABG pO2 ABG HCO3 ABG O2 Saturation ABG Base Excess ABG Hemoglobin Oxyhemoglobin Sodium 146 H Potassium 5.8 H Chloride 107.5 H Carbon Dioxide 21 L BUN 111 H Creatinine 2.2 H Glucose 176 H POC Glucose 199 H Hemoglobin A1c Calcium Phosphorus 7.40 H Magnesium 2.90 H Ferritin AST 230 H ALT 163 H Alkaline Phosphatase 236 H Total Creatine Kinase 351 H CK-MB (CK-2) CK-MB (CK-2) Rel Index Troponin T 3.950 H* Total Protein 5.7 L Albumin 2.1 L Triglycerides LDL Cholesterol Direct HDL Cholesterol 19 L Urine WBC (Auto) Urine Creatinine Crossmatch 04/11/20 04/12/20 04/12/20 21:21 01:41 04:45 WBC RBC Hgb Hct MCV MCHC RDW Plt Count Lymph % (Auto) [place] % (Auto) Lymph # [place] # Seg Neutrophils % Seg Neuts % (Manual) Lymphocytes % (Manual) Nucleated RBC % Seg Neutrophils # Seg Neutrophils # Man Lymphocytes # (Manual) Monocytes # (Manual) Eosinophils # (Manual) PT INR Heparin Anti-Xa Level ABG pH 7.451 H ABG pO2 ABG HCO3 ABG O2 Saturation ABG Base Excess ABG Hemoglobin 6.2 L Oxyhemoglobin Sodium 147 H Potassium 6.0 H Chloride 111.8 H Carbon Dioxide 21 L BUN 117 H Creatinine 2.6 H Glucose 201 H POC Glucose 248 H Hemoglobin A1c Calcium 8.0 L Phosphorus Magnesium Ferritin AST ALT Alkaline Phosphatase Total Creatine Kinase CK-MB (CK-2) CK-MB (CK-2) Rel Index Troponin T Total Protein Albumin Triglycerides LDL Cholesterol Direct HDL Cholesterol Urine WBC (Auto) Urine Creatinine Crossmatch 04/12/20 04/12/20 04/12/20 07:22 07:22 07:22 WBC 12.1 H RBC 2.96 L Hgb 8.7 L Hct 28.1 L MCV 95 H MCHC 31 L RDW 17.7 H Plt Count Lymph % (Auto) 7.1 L [place] % (Auto) Lymph # 0.9 L [place] # Seg Neutrophils % 85.8 H Seg Neuts % (Manual) Lymphocytes % (Manual) Nucleated RBC % Seg Neutrophils # 10.4 H Seg Neutrophils # Man Lymphocytes # (Manual) Monocytes # (Manual) Eosinophils # (Manual) PT 22.9 H INR 1.99 H Heparin Anti-Xa Level ABG pH ABG pO2 ABG HCO3 ABG O2 Saturation ABG Base Excess ABG Hemoglobin Oxyhemoglobin Sodium 147 H Potassium 5.2 H Chloride 109.8 H Carbon Dioxide 20 L BUN 120 H Creatinine 2.8 H Glucose 158 H POC Glucose Hemoglobin A1c Calcium Phosphorus Magnesium 3.00 H Ferritin AST 195 H ALT 162 H Alkaline Phosphatase 244 H Total Creatine Kinase CK-MB (CK-2) CK-MB (CK-2) Rel Index Troponin T Total Protein 5.9 L Albumin 2.4 L Triglycerides LDL Cholesterol Direct HDL Cholesterol Urine WBC (Auto) Urine Creatinine Crossmatch 04/12/20 04/12/20 04/12/20 11:54 16:30 21:05 WBC RBC Hgb Hct MCV MCHC RDW Plt Count Lymph % (Auto) [place] % (Auto) Lymph # [place] # Seg Neutrophils % Seg Neuts % (Manual) Lymphocytes % (Manual) Nucleated RBC % Seg Neutrophils # Seg Neutrophils # Man Lymphocytes # (Manual) Monocytes # (Manual) Eosinophils # (Manual) PT INR Heparin Anti-Xa Level ABG pH ABG pO2 ABG HCO3 ABG O2 Saturation ABG Base Excess ABG Hemoglobin Oxyhemoglobin Sodium 146 H Potassium 5.2 H Chloride 107.3 H Carbon Dioxide 21 L BUN 132 H Creatinine 3.4 H Glucose 212 H POC Glucose 213 H 181 H Hemoglobin A1c Calcium Phosphorus Magnesium Ferritin AST ALT Alkaline Phosphatase Total Creatine Kinase CK-MB (CK-2) CK-MB (CK-2) Rel Index Troponin T Total Protein Albumin Triglycerides LDL Cholesterol Direct HDL Cholesterol Urine WBC (Auto) Urine Creatinine Crossmatch 04/12/20 04/12/20 04/13/20 21:17 23:24 04:25 WBC RBC Hgb Hct MCV MCHC RDW Plt Count Lymph % (Auto) [place] % (Auto) Lymph # [place] # Seg Neutrophils % Seg Neuts % (Manual) Lymphocytes % (Manual) Nucleated RBC % Seg Neutrophils # Seg Neutrophils # Man Lymphocytes # (Manual) Monocytes # (Manual) Eosinophils # (Manual) PT INR Heparin Anti-Xa Level ABG pH ABG pO2 161.4 H ABG HCO3 ABG O2 Saturation ABG Base Excess -2.8 L ABG Hemoglobin 7.6 L Oxyhemoglobin Sodium Potassium Chloride Carbon Dioxide BUN Creatinine Glucose POC Glucose 203 H 221 H Hemoglobin A1c Calcium Phosphorus Magnesium Ferritin AST ALT Alkaline Phosphatase Total Creatine Kinase CK-MB (CK-2) CK-MB (CK-2) Rel Index Troponin T Total Protein Albumin Triglycerides LDL Cholesterol Direct HDL Cholesterol Urine WBC (Auto) Urine Creatinine Crossmatch 04/13/20 04/13/20 04/13/20 04:35 04:35 04:35 WBC 13.3 H RBC 2.68 L Hgb 8.0 L Hct 25.1 L MCV MCHC RDW 17.4 H Plt Count Lymph % (Auto) 9.1 L [place] % (Auto) Lymph # [place] # 0.9 H Seg Neutrophils % 84.0 H Seg Neuts % (Manual) Lymphocytes % (Manual) Nucleated RBC % Seg Neutrophils # 11.1 H Seg Neutrophils # Man Lymphocytes # (Manual) Monocytes # (Manual) Eosinophils # (Manual) PT 27.8 H INR 2.55 H Heparin Anti-Xa Level ABG pH ABG pO2 ABG HCO3 ABG O2 Saturation ABG Base Excess ABG Hemoglobin Oxyhemoglobin Sodium 149 H Potassium 5.2 H Chloride 109.1 H Carbon Dioxide 20 L BUN 136 H Creatinine 3.5 H Glucose 271 H POC Glucose Hemoglobin A1c Calcium 8.3 L Phosphorus Magnesium Ferritin AST 241 H ALT 153 H Alkaline Phosphatase 294 H Total Creatine Kinase CK-MB (CK-2) CK-MB (CK-2) Rel Index Troponin T Total Protein 6.0 L Albumin 2.3 L Triglycerides LDL Cholesterol Direct HDL Cholesterol Urine WBC (Auto) Urine Creatinine Crossmatch 04/13/20 04/13/20 04/13/20 05:27 13:53 16:54 WBC RBC Hgb Hct MCV MCHC RDW Plt Count Lymph % (Auto) [place] % (Auto) Lymph # [place] # Seg Neutrophils % Seg Neuts % (Manual) Lymphocytes % (Manual) Nucleated RBC % Seg Neutrophils # Seg Neutrophils # Man Lymphocytes # (Manual) Monocytes # (Manual) Eosinophils # (Manual) PT INR Heparin Anti-Xa Level ABG pH ABG pO2 ABG HCO3 ABG O2 Saturation ABG Base Excess ABG Hemoglobin Oxyhemoglobin Sodium Potassium Chloride Carbon Dioxide BUN Creatinine Glucose POC Glucose 284 H 320 H 357 H Hemoglobin A1c Calcium Phosphorus Magnesium Ferritin AST ALT Alkaline Phosphatase Total Creatine Kinase CK-MB (CK-2) CK-MB (CK-2) Rel Index Troponin T Total Protein Albumin Triglycerides LDL Cholesterol Direct HDL Cholesterol Urine WBC (Auto) Urine Creatinine Crossmatch 04/14/20 04/14/20 04/14/20 00:13 04:38 05:47 WBC RBC Hgb Hct MCV MCHC RDW Plt Count Lymph % (Auto) [place] % (Auto) Lymph # [place] # Seg Neutrophils % Seg Neuts % (Manual) Lymphocytes % (Manual) Nucleated RBC % Seg Neutrophils # Seg Neutrophils # Man Lymphocytes # (Manual) Monocytes # (Manual) Eosinophils # (Manual) PT INR Heparin Anti-Xa Level ABG pH ABG pO2 ABG HCO3 ABG O2 Saturation ABG Base Excess -3.6 L ABG Hemoglobin 8.0 L Oxyhemoglobin 94.7 L Sodium Potassium Chloride Carbon Dioxide BUN Creatinine Glucose POC Glucose 251 H 273 H Hemoglobin A1c Calcium Phosphorus Magnesium Ferritin AST ALT Alkaline Phosphatase Total Creatine Kinase CK-MB (CK-2) CK-MB (CK-2) Rel Index Troponin T Total Protein Albumin Triglycerides LDL Cholesterol Direct HDL Cholesterol Urine WBC (Auto) Urine Creatinine Crossmatch 04/14/20 04/14/20 04/14/20 07:00 07:00 07:00 WBC RBC Hgb 7.8 L Hct 25.3 L MCV MCHC RDW Plt Count Lymph % (Auto) [place] % (Auto) Lymph # [place] # Seg Neutrophils % Seg Neuts % (Manual) Lymphocytes % (Manual) Nucleated RBC % Seg Neutrophils # Seg Neutrophils # Man Lymphocytes # (Manual) Monocytes # (Manual) Eosinophils # (Manual) PT 24.3 H INR 2.15 H Heparin Anti-Xa Level ABG pH ABG pO2 ABG HCO3 ABG O2 Saturation ABG Base Excess ABG Hemoglobin Oxyhemoglobin Sodium Potassium Chloride Carbon Dioxide 20 L BUN 151 H Creatinine 4.1 H Glucose 266 H POC Glucose Hemoglobin A1c Calcium 7.7 L Phosphorus Magnesium Ferritin AST 176 H ALT 123 H Alkaline Phosphatase 259 H Total Creatine Kinase CK-MB (CK-2) CK-MB (CK-2) Rel Index Troponin T Total Protein 5.5 L Albumin 2.1 L Triglycerides LDL Cholesterol Direct HDL Cholesterol Urine WBC (Auto) Urine Creatinine Crossmatch 04/14/20 04/14/20 04/14/20 11:56 12:00 16:13 WBC RBC Hgb Hct MCV MCHC RDW Plt Count Lymph % (Auto) [place] % (Auto) Lymph # [place] # Seg Neutrophils % Seg Neuts % (Manual) Lymphocytes % (Manual) Nucleated RBC % Seg Neutrophils # Seg Neutrophils # Man Lymphocytes # (Manual) Monocytes # (Manual) Eosinophils # (Manual) PT INR Heparin Anti-Xa Level ABG pH ABG pO2 ABG HCO3 ABG O2 Saturation ABG Base Excess ABG Hemoglobin Oxyhemoglobin Sodium Potassium Chloride 108.0 H Carbon Dioxide 17 L BUN 135 H Creatinine 3.9 H Glucose 265 H POC Glucose 313 H 331 H Hemoglobin A1c Calcium Phosphorus 6.70 H Magnesium 2.40 H Ferritin AST ALT Alkaline Phosphatase Total Creatine Kinase CK-MB (CK-2) CK-MB (CK-2) Rel Index Troponin T Total Protein Albumin Triglycerides LDL Cholesterol Direct HDL Cholesterol Urine WBC (Auto) Urine Creatinine Crossmatch 04/14/20 04/15/20 04/15/20 17:51 00:00 04:34 WBC RBC Hgb Hct MCV MCHC RDW Plt Count Lymph % (Auto) [place] % (Auto) Lymph # [place] # Seg Neutrophils % Seg Neuts % (Manual) Lymphocytes % (Manual) Nucleated RBC % Seg Neutrophils # Seg Neutrophils # Man Lymphocytes # (Manual) Monocytes # (Manual) Eosinophils # (Manual) PT INR Heparin Anti-Xa Level ABG pH ABG pO2 ABG HCO3 19.9 L ABG O2 Saturation ABG Base Excess -4.1 L ABG Hemoglobin 7.5 L Oxyhemoglobin 94.9 L Sodium Potassium Chloride Carbon Dioxide BUN Creatinine Glucose POC Glucose 347 H 325 H Hemoglobin A1c Calcium Phosphorus Magnesium Ferritin AST ALT Alkaline Phosphatase Total Creatine Kinase CK-MB (CK-2) CK-MB (CK-2) Rel Index Troponin T Total Protein Albumin Triglycerides LDL Cholesterol Direct HDL Cholesterol Urine WBC (Auto) Urine Creatinine Crossmatch 04/15/20 04/15/20 04/15/20 04:57 05:39 11:59 WBC RBC Hgb Hct MCV MCHC RDW Plt Count Lymph % (Auto) [place] % (Auto) Lymph # [place] # Seg Neutrophils % Seg Neuts % (Manual) Lymphocytes % (Manual) Nucleated RBC % Seg Neutrophils # Seg Neutrophils # Man Lymphocytes # (Manual) Monocytes # (Manual) Eosinophils # (Manual) PT INR Heparin Anti-Xa Level ABG pH ABG pO2 ABG HCO3 ABG O2 Saturation ABG Base Excess ABG Hemoglobin Oxyhemoglobin Sodium Potassium 5.1 H Chloride Carbon Dioxide 20 L BUN 163 H Creatinine 4.5 H Glucose 274 H POC Glucose 257 H 330 H Hemoglobin A1c Calcium 7.8 L Phosphorus Magnesium Ferritin AST 130 H ALT 105 H Alkaline Phosphatase 254 H Total Creatine Kinase CK-MB (CK-2) CK-MB (CK-2) Rel Index Troponin T Total Protein 5.8 L Albumin 2.0 L Triglycerides LDL Cholesterol Direct HDL Cholesterol Urine WBC (Auto) Urine Creatinine Crossmatch 04/15/20 04/15/20 04/16/20 18:53 23:58 04:25 WBC RBC Hgb Hct MCV MCHC RDW Plt Count Lymph % (Auto) [place] % (Auto) Lymph # [place] # Seg Neutrophils % Seg Neuts % (Manual) Lymphocytes % (Manual) Nucleated RBC % Seg Neutrophils # Seg Neutrophils # Man Lymphocytes # (Manual) Monocytes # (Manual) Eosinophils # (Manual) PT INR Heparin Anti-Xa Level ABG pH 7.304 L ABG pO2 74.6 L ABG HCO3 18.8 L ABG O2 Saturation ABG Base Excess -6.9 L ABG Hemoglobin 5.0 L Oxyhemoglobin Sodium Potassium Chloride Carbon Dioxide BUN Creatinine Glucose POC Glucose 315 H 260 H Hemoglobin A1c Calcium Phosphorus Magnesium Ferritin AST ALT Alkaline Phosphatase Total Creatine Kinase CK-MB (CK-2) CK-MB (CK-2) Rel Index Troponin T Total Protein Albumin Triglycerides LDL Cholesterol Direct HDL Cholesterol Urine WBC (Auto) Urine Creatinine Crossmatch 04/16/20 04/16/20 04/16/20 05:00 05:17 11:35 WBC RBC Hgb Hct MCV MCHC RDW Plt Count Lymph % (Auto) [place] % (Auto) Lymph # [place] # Seg Neutrophils % Seg Neuts % (Manual) Lymphocytes % (Manual) Nucleated RBC % Seg Neutrophils # Seg Neutrophils # Man Lymphocytes # (Manual) Monocytes # (Manual) Eosinophils # (Manual) PT INR Heparin Anti-Xa Level ABG pH ABG pO2 ABG HCO3 ABG O2 Saturation ABG Base Excess ABG Hemoglobin Oxyhemoglobin Sodium Potassium 5.9 H Chloride Carbon Dioxide 19 L BUN 177 H Creatinine 5.1 H Glucose 261 H POC Glucose 255 H 271 H Hemoglobin A1c Calcium 7.7 L Phosphorus Magnesium Ferritin AST 116 H ALT 83 H Alkaline Phosphatase 254 H Total Creatine Kinase CK-MB (CK-2) CK-MB (CK-2) Rel Index Troponin T Total Protein 5.6 L Albumin 2.3 L Triglycerides LDL Cholesterol Direct HDL Cholesterol Urine WBC (Auto) Urine Creatinine Crossmatch 04/16/20 04/16/20 04/16/20 12:26 15:33 15:40 WBC RBC 2.22 L Hgb 6.5 L Hct 21.1 L MCV 95 H MCHC 31 L RDW 18.5 H Plt Count 96 L Lymph % (Auto) [place] % (Auto) Lymph # [place] # Seg Neutrophils % Seg Neuts % (Manual) Lymphocytes % (Manual) Nucleated RBC % Seg Neutrophils # Seg Neutrophils # Man Lymphocytes # (Manual) Monocytes # (Manual) Eosinophils # (Manual) PT INR Heparin Anti-Xa Level ABG pH ABG pO2 ABG HCO3 ABG O2 Saturation ABG Base Excess ABG Hemoglobin Oxyhemoglobin Sodium Potassium 6.3 H* Chloride Carbon Dioxide 16 L BUN 184 H Creatinine 5.5 H Glucose 161 H POC Glucose Hemoglobin A1c Calcium 7.3 L Phosphorus Magnesium Ferritin AST ALT Alkaline Phosphatase Total Creatine Kinase CK-MB (CK-2) CK-MB (CK-2) Rel Index Troponin T Total Protein Albumin Triglycerides LDL Cholesterol Direct HDL Cholesterol Urine WBC (Auto) Urine Creatinine Crossmatch See Detail 04/16/20 04/16/20 04/16/20 17:29 19:33 23:00 WBC RBC Hgb Hct MCV MCHC RDW Plt Count Lymph % (Auto) [place] % (Auto) Lymph # [place] # Seg Neutrophils % Seg Neuts % (Manual) Lymphocytes % (Manual) Nucleated RBC % Seg Neutrophils # Seg Neutrophils # Man Lymphocytes # (Manual) Monocytes # (Manual) Eosinophils # (Manual) PT INR Heparin Anti-Xa Level ABG pH ABG pO2 ABG HCO3 ABG O2 Saturation ABG Base Excess ABG Hemoglobin Oxyhemoglobin Sodium Potassium 5.8 H 5.7 H Chloride Carbon Dioxide 19 L 17 L BUN 180 H 179 H Creatinine 5.1 H 5.4 H Glucose 224 H 187 H POC Glucose 170 H Hemoglobin A1c Calcium 6.9 L 6.9 L Phosphorus Magnesium Ferritin AST ALT Alkaline Phosphatase Total Creatine Kinase CK-MB (CK-2) CK-MB (CK-2) Rel Index Troponin T Total Protein Albumin Triglycerides LDL Cholesterol Direct HDL Cholesterol Urine WBC (Auto) Urine Creatinine Crossmatch 04/16/20 04/17/20 04/17/20 23:56 04:00 04:10 WBC RBC Hgb Hct MCV MCHC RDW Plt Count Lymph % (Auto) [place] % (Auto) Lymph # [place] # Seg Neutrophils % Seg Neuts % (Manual) Lymphocytes % (Manual) Nucleated RBC % Seg Neutrophils # Seg Neutrophils # Man Lymphocytes # (Manual) Monocytes # (Manual) Eosinophils # (Manual) PT INR Heparin Anti-Xa Level ABG pH ABG pO2 320.9 H ABG HCO3 18.0 L ABG O2 Saturation 99.5 H ABG Base Excess -6.5 L ABG Hemoglobin < 5.1 L Oxyhemoglobin Sodium Potassium 5.5 H Chloride Carbon Dioxide 16 L BUN 172 H Creatinine 5.1 H Glucose 227 H POC Glucose 130 H Hemoglobin A1c Calcium 6.7 L Phosphorus Magnesium Ferritin AST 97 H ALT 64 H Alkaline Phosphatase 170 H Total Creatine Kinase CK-MB (CK-2) CK-MB (CK-2) Rel Index Troponin T Total Protein 4.9 L Albumin 1.9 L Triglycerides LDL Cholesterol Direct HDL Cholesterol Urine WBC (Auto) Urine Creatinine Crossmatch 04/17/20 04/17/20 05:58 11:37 WBC RBC Hgb Hct MCV MCHC RDW Plt Count Lymph % (Auto) [place] % (Auto) Lymph # [place] # Seg Neutrophils % Seg Neuts % (Manual) Lymphocytes % (Manual) Nucleated RBC % Seg Neutrophils # Seg Neutrophils # Man Lymphocytes # (Manual) Monocytes # (Manual) Eosinophils # (Manual) PT INR Heparin Anti-Xa Level ABG pH ABG pO2 ABG HCO3 ABG O2 Saturation ABG Base Excess ABG Hemoglobin Oxyhemoglobin Sodium Potassium Chloride Carbon Dioxide BUN Creatinine Glucose POC Glucose 154 H 223 H Hemoglobin A1c Calcium Phosphorus Magnesium Ferritin AST ALT Alkaline Phosphatase Total Creatine Kinase CK-MB (CK-2) CK-MB (CK-2) Rel Index Troponin T Total Protein Albumin Triglycerides LDL Cholesterol Direct HDL Cholesterol Urine WBC (Auto) Urine Creatinine Crossmatch Allied health notes reviewed: nursing
[2020-04-17] MEDS ORDERED: NORepinephrine/NS 4 MG-250 ML 4 MG/250 ML BAG IV ONE (12:18)
--- NOTE | 2020-04-17 13:17 | Progress Note ---
Assessment and Plan Cont present cardiac management. Cont supportive measures. Overall poor prognosis. Per neurology - pt with anoxic brain injury and possible brain , very poor prognosis. Per case management - phone conference held today with patient's sons and the Neurologist to discuss the results of the brain flow study. Katja informed of the brain and requested to visit with patient prior to removing him from the ventilator. Scheduled visit for 2:30 pm to allow both sons time to arrive at the hospital. Katja verbally agreed to make arrangements to come to the hospital this afternoon. The patient has been seen in conjunction with Dr. Gil Jimenes who agrees with the assessment and plan of care. - Patient Problems (1) Cardiopulmonary arrest Current Visit: Yes Status: Acute (2) Anoxic brain injury Current Visit: Yes Status: Acute (3) PAD (peripheral artery disease) Current Visit: Yes Status: Chronic (4) S/P BKA (below knee amputation) Current Visit: Yes Status: Chronic (5) Abnormal ECG Current Visit: Yes Status: Acute (6) NSTEMI (non-ST elevated myocardial infarction) Current Visit: Yes Status: Acute (7) Cardiomyopathy Current Visit: Yes Status: Acute (8) CAD (coronary artery disease) Current Visit: Yes Status: Chronic (9) History of coronary artery bypass graft Current Visit: Yes Status: Chronic (10) HTN (hypertension) Current Visit: Yes Status: Chronic Qualifiers: Hypertension type: essential hypertension Qualified Code(s): I10 - Essential (primary) hypertension (11) History of CVA (cerebrovascular accident) Current Visit: Yes Status: Chronic (12) Smoker Current Visit: Yes Status: Chronic (13) NSVT (nonsustained ventricular tachycardia) Current Visit: Yes Status: Acute (14) DYLON (acute kidney injury) Current Visit: Yes Status: Acute (15) Anemia Current Visit: Yes Status: Acute Subjective Date of service: 04/17/20 Principal diagnosis: Acute limb ischemia; STARR; COPD; Ac hypoxemic resp failure; DM II; NSTEMI Interval history: pt remains intubated, unresponsive. in SR on tele, amio gtt infusing. requiring vasopressor support. Objective Last Vital Signs Temp 99.2 F 04/17/20 11:48 Pulse 72 04/17/20 12:47 Resp 15 04/17/20 11:30 BP 92/35 04/17/20 12:47 Pulse Ox 100 04/17/20 12:47 - Physical Examination General: Other (intubated, unresponsive) HEENT: Positive: Normocephaly Neck: Positive: neck supple, trachea midline. Negative: JVD/HJR Cardiac: Positive: Reg Rate and Rhythm, S1/S2 Lungs: Positive: Decreased Breath Sounds, Oxygen, Ventilated Respirations Neuro: Positive: Other (intubated, unresponsive) Abdomen: Positive: Soft, Active Bowel Sounds Skin: Negative: Rash Musculoskeletal: other (s/p left BKA) Extremities: Present: upper extr. pulses, lower extr. pulses, Other (LLE pain, numbness, pale). Absent: edema - Labs and Meds Cardiac Enzymes 04/17/20 Range/Units 04:00 AST 97 H (5-40) units/L Comprehensive Metabolic Panel 04/16/20 04/16/20 04/16/20 Range/Units 15:33 19:33 23:00 Sodium 141 137 139 (137-145) mmol/L Potassium 6.3 H* 5.8 H 5.7 H (3.6-5.0) mmol/L Chloride 102.6 101.3 102.0 (98-107) mmol/L Carbon Dioxide 16 L 19 L 17 L (22-30) mmol/L BUN 184 H 180 H 179 H (9-20) mg/dL Creatinine 5.5 H 5.1 H 5.4 H (0.8-1.3) mg/dL Glucose 161 H 224 H 187 H (75-100) mg/dL Calcium 7.3 L 6.9 L 6.9 L (8.4-10.2) mg/dL AST (5-40) units/L ALT (7-56) units/L Alkaline Phosphatase (35-129) units/L Total Protein (6.3-8.2) g/dL Albumin (3.9-5) g/dL 04/17/20 Range/Units 04:00 Sodium 139 (137-145) mmol/L Potassium 5.5 H (3.6-5.0) mmol/L Chloride 103.3 (98-107) mmol/L Carbon Dioxide 16 L (22-30) mmol/L BUN 172 H (9-20) mg/dL Creatinine 5.1 H (0.8-1.3) mg/dL Glucose 227 H (75-100) mg/dL Calcium 6.7 L (8.4-10.2) mg/dL AST 97 H (5-40) units/L ALT 64 H (7-56) units/L Alkaline Phosphatase 170 H (35-129) units/L Total Protein 4.9 L (6.3-8.2) g/dL Albumin 1.9 L (3.9-5) g/dL - Imaging and Cardiology EKG: report reviewed, image reviewed Echo: report reviewed (03/20/2020 - EF 30-35%; akinetic mid inferolateral, mid inferior, apical lateral, and apical inferior wall segments), other (12/2014 - EF 55-60%, no significant valvular abnormalities) - Telemetry EKG Rhythm: Sinus Rhythm - EKG Sinus rhythms and dysrhythmias: sinus rhythm Repolarization changes or abnormalities: nonspecific abnormality, ST segment, and/or T wave - Allied health notes Allied health notes reviewed: nursing
--- NOTE | 2020-04-17 15:38 | Event Note ---
Date: 04/17/20 Came to patient's room and discussed with patient's family son Mehran and [id number] Discussed with them patient's condition, brain flow test reports, neurologist pronouncing brain at 9:30 in the AM They requested to withdraw care and extubate, I in turn requested respiratory therapy to extubate. As requested by the family patient was extubated at 1530, within few minutes patient's pulse and respirations stopped 1540 And patient did not have cardiopulmonary activity, patient's son Mehran Obrien and [id number] were at the bedside. Patient will be [place] [facility] [place] are made
--- NOTE | 2020-04-17 15:39 | Progress Note ---
Hospitalist Physical - Constitutional Vitals: Temp Pulse Resp BP Pulse Ox 99.2 F 72 21 99/35 94 04/17/20 11:48 04/17/20 14:30 04/17/20 14:30 04/17/20 14:30 04/17/20 14:30 General appearance: Present: well-nourished, obese (Morbidly), other (Unresponsive, intubated on vent) HEART Score - HEART Score Troponin: Troponin T 3.950 ng/mL (0.00-0.029) H* 04/11/20 18:17 Results - Labs CBC & Chem 7: 04/16/20 12:26 04/17/20 04:00 Labs: Laboratory Last Values WBC 10.5 K/mm3 (4.5-11.0) 04/16/20 12:26 RBC 2.22 M/mm3 (3.65-5.03) L 04/16/20 12:26 Hgb 6.5 gm/dl (11.8-15.2) L 04/16/20 12:26 Hct 21.1 % (35.5-45.6) L 04/16/20 12:26 MCV 95 fl (84-94) H 04/16/20 12:26 MCH 30 pg (28-32) 04/16/20 12:26 MCHC 31 % (32-34) L 04/16/20 12:26 RDW 18.5 % (13.2-15.2) H 04/16/20 12:26 Plt Count 96 K/mm3 (140-440) L 04/16/20 12:26 Lymph % (Auto) 9.1 % (13.4-35.0) L 04/13/20 04:35 [place] % (Auto) 6.6 % (0.0-7.3) 04/13/20 04:35 Eos % (Auto) 0.1 % (0.0-4.3) 04/13/20 04:35 Baso % (Auto) 0.2 % (0.0-1.8) 04/13/20 04:35 Lymph # 1.2 K/mm3 (1.2-5.4) 04/13/20 04:35 [place] # 0.9 K/mm3 (0.0-0.8) H 04/13/20 04:35 Eos # 0.0 K/mm3 (0.0-0.4) 04/13/20 04:35 Baso # 0.0 K/mm3 (0.0-0.1) 04/13/20 04:35 Add Manual Diff Complete 04/11/20 18:17 Total Counted 100 04/11/20 18:17 Seg Neutrophils % 84.0 % (40.0-70.0) H 04/13/20 04:35 Seg Neuts % (Manual) 89.0 % (40.0-70.0) H 04/11/20 18:17 Band Neutrophils % 0 % 04/11/20 18:17 Lymphocytes % (Manual) 7.0 % (13.4-35.0) L 04/11/20 18:17 Reactive Lymphs % (Man) 0 % 04/11/20 18:17 Monocytes % (Manual) 4.0 % (0.0-7.3) 04/11/20 18:17 Eosinophils % (Manual) 0 % (0.0-4.3) 04/11/20 18:17 Basophils % (Manual) 0 % (0.0-1.8) 04/11/20 18:17 Metamyelocytes % 0 % 04/11/20 18:17 Myelocytes % 0 % 04/11/20 18:17 Promyelocytes % 0 % 04/11/20 18:17 Blast Cells % 0 % 04/11/20 18:17 Nucleated RBC % Not Reportable 04/11/20 18:17 Seg Neutrophils # 11.1 K/mm3 (1.8-7.7) H 04/13/20 04:35 Seg Neutrophils # Man 8.8 K/mm3 (1.8-7.7) H 04/11/20 18:17 Band Neutrophils # 0.0 K/mm3 04/11/20 18:17 Lymphocytes # (Manual) 0.7 K/mm3 (1.2-5.4) L 04/11/20 18:17 Abs React Lymphs (Man) 0.0 K/mm3 04/11/20 18:17 Monocytes # (Manual) 0.4 K/mm3 (0.0-0.8) 04/11/20 18:17 Eosinophils # (Manual) 0.0 K/mm3 (0.0-0.4) 04/11/20 18:17 Basophils # (Manual) 0.0 K/mm3 (0.0-0.1) 04/11/20 18:17 Metamyelocytes # 0.0 K/mm3 04/11/20 18:17 Myelocytes # 0.0 K/mm3 04/11/20 18:17 Promyelocytes # 0.0 K/mm3 04/11/20 18:17 Blast Cells # 0.0 K/mm3 04/11/20 18:17 WBC Morphology Not Reportable 04/11/20 18:17 Hypersegmented Neuts Not Reportable 04/11/20 18:17 Hyposegmented Neuts Not Reportable 04/11/20 18:17 Hypogranular Neuts Not Reportable 04/11/20 18:17 Smudge Cells Not Reportable 04/11/20 18:17 Toxic Granulation Not Reportable 04/11/20 18:17 Toxic Vacuolation Not Reportable 04/11/20 18:17 Dohle Bodies Not Reportable 04/11/20 18:17 Pelger-Huet Anomaly Not Reportable 04/11/20 18:17 Ananya Rods Not Reportable 04/11/20 18:17 Platelet Estimate Not Reportable 04/11/20 18:17 Clumped Platelets Not Reportable 04/11/20 18:17 Plt Clumps, EDTA Not Reportable 04/11/20 18:17 Large Platelets Not Reportable 04/11/20 18:17 Giant Platelets Not Reportable 04/11/20 18:17 Platelet Satelliting Not Reportable 04/11/20 18:17 Plt Morphology Comment Not Reportable 04/11/20 18:17 RBC Morphology Normal 04/11/20 18:17 Dimorphic RBCs Not Reportable 04/11/20 18:17 Polychromasia Not Reportable 04/11/20 18:17 Hypochromasia Not Reportable 04/11/20 18:17 Poikilocytosis Not Reportable 04/11/20 18:17 Anisocytosis Not Reportable 04/11/20 18:17 Microcytosis Not Reportable 04/11/20 18:17 Macrocytosis Not Reportable 04/11/20 18:17 Spherocytes Not Reportable 04/11/20 18:17 Pappenheimer Bodies Not Reportable 04/11/20 18:17 Sickle Cells Not Reportable 04/11/20 18:17 Target Cells Not Reportable 04/11/20 18:17 Tear Drop Cells Not Reportable 04/11/20 18:17 Ovalocytes Not Reportable 04/11/20 18:17 Helmet Cells Not Reportable 04/11/20 18:17 Light-[place] Bodies Not Reportable 04/11/20 18:17 [place] Rings Not Reportable 04/11/20 18:17 [place] Cells Not Reportable 04/11/20 18:17 Bite Cells Not Reportable 04/11/20 18:17 Crenated Cell Not Reportable 04/11/20 18:17 Elliptocytes Not Reportable 04/11/20 18:17 Acanthocytes (Spur) Not Reportable 04/11/20 18:17 Rouleaux Not Reportable 04/11/20 18:17 Hemoglobin C Crystals Not Reportable 04/11/20 18:17 Schistocytes Not Reportable 04/11/20 18:17 Malaria parasites Not Reportable 04/11/20 18:17 Steven Bodies Not Reportable 04/11/20 18:17 Hem Pathologist Commnt No 04/11/20 18:17 PT 24.3 Sec. (12.2-14.9) H 04/14/20 07:00 INR 2.15 (0.87-1.13) H 04/14/20 07:00 APTT 27.7 Sec. (24.2-36.6) 03/18/20 18:28 Heparin Anti-Xa Level 0.10 U.I./ml (0.3-0.7) L 03/25/20 04:06 ABG pH 7.394 pH Units (7.350-7.450) 04/17/20 04:10 ABG pCO2 30.1 mm Hg 04/17/20 04:10 ABG pO2 320.9 mm Hg (80.0-90.0) H 04/17/20 04:10 ABG HCO3 18.0 mmol/L (20.0-26.0) L 04/17/20 04:10 ABG O2 Saturation 99.5 % (95.0-99.0) H 04/17/20 04:10 ABG O2 Content 7.0 (0.0-44) 04/17/20 04:10 ABG Base Excess -6.5 mmol/L (-2.0-3.0) L 04/17/20 04:10 ABG Hemoglobin < 5.1 gm/dl (14.0-18.0) L 04/17/20 04:10 ABG Carboxyhemoglobin 1.5 % (0.0-5.0) 04/17/20 04:10 ABG Methemoglobin 0.5 % (0.0-1.5) 04/17/20 04:10 Oxyhemoglobin 97.5 % (95.0-99.0) 04/17/20 04:10 FiO2 100 % 04/17/20 04:10 Sodium 139 mmol/L (137-145) 04/17/20 04:00 Potassium 5.5 mmol/L (3.6-5.0) H 04/17/20 04:00 Chloride 103.3 mmol/L (98-107) 04/17/20 04:00 Carbon Dioxide 16 mmol/L (22-30) L 04/17/20 04:00 Anion Gap 25 mmol/L 04/17/20 04:00 BUN 172 mg/dL (9-20) H 04/17/20 04:00 Creatinine 5.1 mg/dL (0.8-1.3) H 04/17/20 04:00 Estimated GFR 12 ml/min 04/17/20 04:00 BUN/Creatinine Ratio 34 % 04/17/20 04:00 Glucose 227 mg/dL (75-100) H 04/17/20 04:00 POC Glucose 223 (70-105) H 04/17/20 11:37 Hemoglobin A1c 11.0 % (4-6) H 03/18/20 22:21 Calcium 6.7 mg/dL (8.4-10.2) L 04/17/20 04:00 Phosphorus 6.70 mg/dL (2.5-4.5) H 04/14/20 12:00 Magnesium 2.40 mg/dL (1.7-2.3) H 04/14/20 12:00 Ferritin 444.2 ng/mL (30.0-300.0) H 04/06/20 07:14 Total Bilirubin 0.90 mg/dL (0.1-1.2) 04/17/20 04:00 AST 97 units/L (5-40) H 04/17/20 04:00 ALT 64 units/L (7-56) H 04/17/20 04:00 Alkaline Phosphatase 170 units/L (35-129) H 04/17/20 04:00 Ammonia 38.0 umol/L (25-60) 04/12/20 07:22 Total Creatine Kinase 351 units/L (55-170) H 04/11/20 18:17 CK-MB (CK-2) 3.5 ng/mL (0.0-4.0) 04/11/20 18:17 CK-MB (CK-2) Rel Index 0.9 (0-4) 04/11/20 18:17 Troponin T 3.950 ng/mL (0.00-0.029) H* 04/11/20 18:17 Total Protein 4.9 g/dL (6.3-8.2) L 04/17/20 04:00 Albumin 1.9 g/dL (3.9-5) L 04/17/20 04:00 Albumin/Globulin Ratio 0.6 % 04/17/20 04:00 Triglycerides 99 mg/dL (2-149) 04/11/20 18:17 Cholesterol 93 mg/dL (50-199) 04/11/20 18:17 LDL Cholesterol Direct 60 mg/dL (50-130) 04/11/20 18:17 HDL Cholesterol 19 mg/dL (40-59) L 04/11/20 18:17 Cholesterol/HDL Ratio 4.89 % 04/11/20 18:17 Urine Color Yellow (Yellow) 04/11/20 16:30 Urine Turbidity Slightly-cloudy (Clear) 04/11/20 16:30 Urine pH 5.0 (5.0-7.0) 04/11/20 16:30 Ur Specific [place] 1.013 (1.003-1.030) 04/11/20 16:30 Urine Protein <15 mg/dl mg/dL (Negative) 04/11/20 16:30 Urine Glucose (UA) Neg mg/dL (Negative) 04/11/20 16:30 Urine Ketones Neg mg/dL (Negative) 04/11/20 16:30 Urine Blood Lg (Negative) 04/11/20 16:30 Urine Nitrite Neg (Negative) 04/11/20 16:30 Urine Bilirubin Neg (Negative) 04/11/20 16:30 Urine Urobilinogen < 2.0 mg/dL (<2.0) 04/11/20 16:30 Ur Leukocyte Esterase Neg (Negative) 04/11/20 16:30 Urine WBC (Auto) 16.0 /HPF (0.0-6.0) H 04/11/20 16:30 Urine RBC (Auto) 19.0 /HPF (0.0-6.0) 04/11/20 16:30 U Epithel Cells (Auto) 1.0 /HPF (0-13.0) 04/11/20 16:30 Urine Mucus Few /HPF 04/11/20 16:30 Urine Yeast (Budding) Few /HPF 04/11/20 16:30 Urine Eosinophils None seen (None Seen) 04/11/20 16:30 Urine Creatinine 60.0 mg/dL (0.1-20.0) H 04/11/20 16:30 Urine Sodium 26 mmol/L 04/11/20 16:30 Random Vancomycin 13.3 ug/mL (0-40.0) 04/16/20 05:00 Coronavirus (PCR) Negative (Negative) 04/03/20 08:00 Hep Bs Antigen Non-reactive (Negative) 04/06/20 07:14 Hepatitis C Antibody Non-reactive (NonReactive) 04/06/20 07:14 Blood Type B POSITIVE 04/16/20 15:40 Antibody Screen Negative 04/16/20 15:40 Crossmatch See Detail 04/16/20 15:40 - Diagnostic Impressions Diagnostic Impressions: Echocardiogram 03/19/20 12:49 Transthoracic Echocardiogram Indication: CAD and Abnormal EKG HR: 110 Conclusions *The study is technically limited due to patient body habitus. *The left ventricular chamber size is mildly dilated. *Global left ventricular systolic function is moderate to severely decreased. *The estimated ejection fraction is 30-35%. *The basal inferolateral, and basal inferior wall segments are normal. *The mid inferolateral, mid inferior, apical lateral, and apical inferior wall segments are akinetic. *The left atrial chamber size is normal. Findings Procedure Info: The study is technically limited due to patient body habitus. The study was technically limited due to the patient's inability to lay in the left lateral decubitus position. Left Ventricle: The left ventricular chamber size is mildly dilated. Global left ventricular systolic function is moderate to severely decreased. The estimated ejection fraction is 30-35%. The basal inferolateral, and basal inferior wall segments are normal. The mid inferolateral, mid inferior, apical lateral, and apical inferior wall segments are akinetic. Left Atrium: The left atrial chamber size is normal. Right Ventricle: The right ventricle is not well visualized. Right Atrium: The right atrium is not well visualized. The right atrial cavity size is normal. Aortic Valve: The aortic valve is trileaflet. Mitral Valve: The mitral valve leaflets are moderately thickened. There is mild mitral regurgitation. Tricuspid Valve: The tricuspid valve is not well visualized. There is trace tricuspid regurgitation. Pulmonic Valve: The pulmonic valve is not well visualized. Pericardium: There is no pericardial effusion. Aorta: The aorta appears normal. Venous: The venous system is not well visualized. Contrast: Definity was used to optimize study. Measurements Chambers 2D Name Value Normal Range IVSd (2D) 0.94 cm (0.6 - 1.1) LVPWd (2D) 0.94 cm (0.6 - 1.1) LVIDd (2D) 6.15 cm (3.7 - 5.6) LVIDs (2D) 5.2 cm (2 - 3.8) LV FS (2D) 15.5 % - EF Teichholz (2D) 32.08 % - Ao root diameter (2D) 2.77 cm (2 - 3.7) Volumes/Mass Name Value Normal Range LA ESV SP 4CH (A/L) 73.77 ml - LA ESV SP 2CH (A/L) 66.45 ml - LA ESV BP (A/L) 71.61 ml - LA ESV BP (A/L) index 30.6 ml/m2 - LA ESV SP 4CH (MOD) 72.55 ml - LA ESV SP 2CH (MOD) 65.34 ml - LA ESV BP (MOD) 70.27 ml - LA ESV BP (MOD) index 30.03 ml/m2 - Diastolic/Systolic Function Name Value Normal Range MV E-wave Vmax 0.85 m/sec - MV deceleration time 69.14 msec - MV A-wave Vmax 0.89 m/sec - MV E:A ratio 0.95 ratio - Aortic Valve Name Value Normal Range AV Vmax 0.96 m/sec - AV VTI 11.83 cm - AV peak gradient 3.68 mmHg - AV mean gradient 1.6 mmHg - LVOT diameter 2.19 cm - LVOT Vmax 0.86 m/sec - LVOT VTI 13.33 cm - LVOT peak gradient 2.96 mmHg - LVOT mean gradient 1.48 mmHg - SV LVOT 50.08 ml - DEYA (continuity Vmax) 3.37 cm2 - DEYA (continuity VTI) 4.23 cm2 - Ascending Ao 2.92 cm - Pulmonic Valve/Qp:Qs Name Value Normal Range PV Vmax 1.08 m/sec - PV VTI 15.88 cm - PV peak gradient 4.7 mmHg - PV mean gradient 2.18 mmHg - RVOT Vmax 0.82 m/sec - RVOT VTI 11.48 cm - RVOT peak gradient 2.67 mmHg - Wall[place] BAS Not Seen BA Not Seen BAL Not Seen BAY Normal BI Normal BIS Not Seen MAS Not Seen MA Not Seen MAL Not Seen MIL Akinetic NE Akinetic MIS Not Seen Not Seen AA Not Seen AL Akinetic AI Akinetic APEX Not Seen Tyson/IV: Voiding Method Indwelling Catheter IV Catheter Type [Right Peripheral IV Forearm] IV Catheter Type [Right INT / Saline Lock Antecubital] IV Catheter Type [Right Hand] Peripheral IV IV Catheter Type [Left Forearm INT / Saline Lock ] IV Catheter Type [Left Upper PICC Line arm] IV Catheter Type [Left INT / Saline Lock Antecubital] Active Medications - Current Medications Current Medications: Generic Name Dose Route Start Last Admin Trade Name Freq PRN Reason Stop Dose Admin Albuterol 2.5 mg 04/01/20 00:03 Proventil IH Q6HRT PRN Shortness Of Breath Lipase/Protease/Amylase 1 each 04/10/20 17:39 Bernice Forrester 10,500 Unit FEEDTUBE PRN PRN For Clogged Feeding Tube Arformoterol Tartrate 15 mcg 03/19/20 20:00 04/17/20 09:02 Brovana Nebu IH 15 mcg Q12HRT LOI Administration Aspirin 81 mg 04/10/20 16:00 04/17/20 10:49 Halfprin Ec PO Not Given QDAY LOI Atorvastatin Calcium 40 mg 03/19/20 22:00 04/16/20 21:55 Lipitor PO Not Given QHS LOI Budesonide 0.5 mg 03/19/20 20:00 04/17/20 09:02 Pulmicort IH 0.5 mg Q12HRT LOI Administration Clopidogrel Bisulfate 75 mg 03/19/20 10:00 04/17/20 10:50 Plavix PO Not Given QDAY LOI Dextrose 50 ml 04/16/20 16:42 04/16/20 17:29 D50w (25gm) Syringe IV 50 ml Q30MIN PRN Administration Hypoglycemia Protocol Diphenhydramine HCl 25 mg 03/19/20 12:44 Benadryl IV Q4H PRN Itching Fentanyl 50 mcg 04/11/20 20:22 Sublimaze IV Q10MIN PRN ANALGESIA Hydrophilic Ointment 1 applic 04/11/20 20:22 Vaseline Lip Therapy TP Q2HR PRN Dry Lips Fentanyl Citrate 2,000 mcg in 100 mls @ 6.405 mls/hr 04/11/20 21:00 Fentanyl Drip Premix IV TITR LOI Protocol 1 MCG/KG/HR Cefepime HCl 1 gm in 100 mls @ 200 mls/hr 04/15/20 10:00 04/17/20 10:49 Cefepime/Ns 1 Gm/100 Ml IV 04/18/20 12:00 200 mls/hr Q24HR LOI Administration Protocol Amiodarone HCl 900 mg/ 500 mls @ 33.333 mls/hr 04/14/20 12:00 04/16/20 20:19 Dextrose IV 1 mg/min DIRECT LOI 33.333 mls/hr Administration Protocol 1 MG/MIN Lidocaine HCl/Dextrose 2,000 mg in 500 mls @ 15 mls/hr 04/14/20 17:00 04/15/20 04:45 Xylocaine/D5w 2gm/500ml Drip IV 0 mg/min DIRECT LOI 0 mls/hr Titration Protocol 1 MG/MIN Pantoprazole Sodium 80 mg/ 100 mls @ 10 mls/hr 04/16/20 13:00 04/16/20 22:40 Sodium Chloride IV 8 mg/hr DIRECT LOI 10 mls/hr Administration 8 MG/HR Vasopressin 20 unit/ Sodium 101 mls @ 9.09 mls/hr 04/17/20 00:00 04/17/20 05:00 Chloride IV 0 units/min TITR LOI 0 mls/hr Titration Protocol 0.03 UNITS/MIN Norepinephrine 8 mg/ Sodium 250 mls @ 3.75 mls/hr 04/17/20 01:00 04/17/20 05:15 Chloride IV 8 mcg/min TITR LOI 15 mls/hr Titration Protocol 2 MCG/MIN Insulin Human Isoph/Insulin Regular 5 unit 04/14/20 11:00 04/17/20 09:00 Humulin 70/30 SUB-Q Not Given BIDDIAB [facility] Insulin Human Lispro 0 unit 04/12/20 00:00 04/17/20 05:20 Humalog SUB-Q Not Given Q6HR [facility] Protocol Ipratropium [place] 0.5 mg 04/01/20 00:05 Atrovent IH Q6HRT PRN Shortness Of Breath Magnesium Hydroxide 30 ml 03/18/20 22:21 Milk Of Magnesia PO Q4H PRN Constipation Metoprolol Tartrate 50 mg 03/19/20 22:00 04/17/20 10:49 Metoprolol PO Not Given BID [facility] Multi-Ingred Cream/Lotion/Oil/Oint 1 applic 04/11/20 20:22 Artificial Tears Ophth Oint OU Q4HR PRN Dry Eye(s) Naloxone HCl 0.1 mg 03/19/20 12:44 Naloxone IV Q2MIN PRN Res Rate </= 8 or 02 SAT < 92% Ondansetron HCl 4 mg 03/18/20 22:21 04/05/20 01:46 Zofran IV 4 mg Q8H PRN Administration Nausea And Vomiting Simple Syrup 15 ml 04/10/20 17:39 Simple Syrup FEEDTUBE PRN PRN Hypoglycemia Simple Syrup 30 ml 04/10/20 17:39 Simple Syrup FEEDTUBE PRN PRN Hypoglycemia Sodium Bicarbonate 325 mg 04/10/20 17:39 Sodium Bicarbonate FEEDTUBE PRN PRN For Clogged Feeding Tube Sodium Chloride 10 ml 03/19/20 10:00 04/17/20 10:49 Sodium Chloride Flush Syringe 10 Ml IV 10 ml BID LOI Administration Sodium Chloride 10 ml 03/18/20 22:21 04/11/20 05:57 Sodium Chloride Flush Syringe 10 Ml IV 10 ml PRN PRN Administration LINE FLUSH Nutrition/Malnutrition Assess - Dietary Evaluation Nutrition/Malnutrition Findings: Nutrition Notes Start: 03/19/20 11:59 Freq: Status: Active Protocol: Document 04/15/20 12:13 LM (Rec: 04/15/20 12:25 LM [id number]) Nutrition Notes Initial or Follow up Reassessment Current Diagnosis COPD,Diabetes Other Pertinent Diagnosis (L) LE ischemia s/p (L) BKA, STARR, NSTEMI Current Diet Nepro 1.8 at 45ml/hr Labs/Tests K 5.1 BUN 163 Cr 4.5 BG 274 Pertinent Medications Humulin Humalog Levophed Height 6 ft Weight 128.1 kg [place] Body Weight (kg) 80.90 BMI 38.2 Weight Status Obese Subjective/Other Information Per RN notes pt is tolerating TF at goal. Burn Absent Trauma Absent Current % PO Negligible Minimum of two criteria No #1 Nutrition Diagnosis Increased nutrient needs ( specify in comment below) Diagnosis Progress(for reassessment Continues documentation) Is patient on ventilator? Yes Is Patient Ambulatory and/or Out of Bed No REE-([facility]-confined to bed) 2588.544 Kcal/Kg value to use for calculation 16 Approximate Energy Requirements Using 0 kcal/Kg Calculation Used for Recommendations Kcal/kg Additional Notes Protein: 162g (>/= 2g/kg using IBW 81kg) Fluid: 1ml/kcal Nutrition Intervention Change Diet Order: continue TF Nutrition Support: Nepro 1.8 at 45ml/hr Flush 200ml q4h Kcal 1,944 Protein (gm) 87 Fluid (mL) 785 Goal #1 TF tolerance Goal #2 Meet at least 75% of energy and protein needs Anticipated Discharge Needs: unable to determine at this time Follow-Up By: 04/18/20 Additional Comments F/U for TF tolerance, K lab
[2020-04-17 15:57] VITALS: BP 84/33
--- NOTE | 2020-04-17 18:51 | Death Summary ---
Summary - Providers Date of service: 04/17/20 Consults: 03/18/20 18:18 Consult to Physician [CONS] Stat Comment: Consulting Provider: DAYANA ROGEL Physician Instructions: Reason For Exam: arterial occlusion left leg 03/18/20 22:21 Consult to Dietitian/Nutrition [CONS] Routine Physician Instructions: Reason For Exam: Reason for Consult: Diet education Consult to Physician [CONS] Routine Comment: Consulting Provider: ONUR ENRIQUEZ Physician Instructions: Reason For Exam: ISCHEMIC LEFT FOOT 03/25/20 15:21 Physical Therapy Evaluation and Treat [CONS] Routine Comment: s/p Left bka Reason For Exam: Eval and treat 03/25/20 15:22 Consult to Case Management [CONS] Routine Services Needed at Discharge: Home Health Services Occupational Therapy Physical Therapy Notified:: FIELD AGRONOMIST Additional Physician Instructions: HHPT/OT-eval and treat 03/25/20 15:23 Consult Acute Rehabilitation [CONS] Routine Consulting Provider: Physician Instructions: Reason For Exam: IRU Evaluation 04/05/20 10:49 Consult to Physician [CONS] Routine Comment: Consulting Provider: ROBIN BRISENO Physician Instructions: Reason For Exam: Transaminitis 04/05/20 10:50 Consult to Physician [CONS] Routine Comment: Consulting Provider: JESSICA WESTON Physician Instructions: Reason For Exam: Transaminitis/possible cholecystitis 04/07/20 16:32 Consult to Wound/ET Nurse [CONS] Routine Reason For Exam: wound eval 04/07/20 16:33 Consult to Physician [CONS] Routine Comment: Consulting Provider: JOSÉ ANTONIO MARX Physician Instructions: Reason For Exam: Left BKA stump infection 04/08/20 10:00 Consult to Wound/ET Nurse [CONS] Routine Reason For Exam: wound eval 04/09/20 09:13 Consult to Physician [CONS] Routine Comment: Consulting Provider: DALILA DE ANDA Physician Instructions: Reason For Exam: Subacute infarct on CT head 04/09/20 21:06 Consult to Physician [CONS] Routine Comment: Consulting Provider: MILO BARBOSA Physician Instructions: Reason For Exam: Persistent hyperkalemia/ac on CKD 04/10/20 16:39 Consult to Dietitian/Nutrition [CONS] Routine Physician Instructions: Reason For Exam: Reason for Consult: start of doubhoff feeding 04/10/20 17:39 Consult to Dietitian/Nutrition [CONS] Routine Physician Instructions: Assess nutrtn needs, initiate, modify, manage TF Reason For Exam: Reason for Consult: Write/Manage Tube Feeding Reason for Consult: Write/Manage Tube Feeding 04/11/20 17:18 Consult to PICC Line RN [CONS] Urgent Reason For Exam: Vasopressors Type Line:: PICC 04/11/20 20:23 Consult to Dietitian/Nutrition [CONS] Routine Physician Instructions: Reason For Exam: Reason for Consult: Write/Manage Tube Feeding 04/12/20 08:24 Consult to Physician [CONS] Urgent Comment: Consulting Provider: SCOUT AMARO Physician Instructions: Reason For Exam: Cardiac arrest/nonsustained VT 04/15/20 17:47 Consult to Physician [CONS] Routine Comment: Consulting Provider: ALISSA LLOYD Physician Instructions: Reason For Exam: Acute stroke/cardiac arrest/anoxic brain injury Attending: GURPREET ABDULLAHI - summary Date of admission: 03/18/20 20:23 Date of : 04/17/20 (09:30) - Final diagnosis (1) Cardiac arrhythmia Qualifiers: Arrhythmia type: ventricular tachycardia Qualified Code(s): I47.2 - Ventricular tachycardia Note: Final diagnosis: (2) Acute CVA (cerebrovascular accident) Note: Final diagnosis: (3) Acute liver failure Note: Final diagnosis: (4) Severe sepsis Note: Final diagnosis: (5) Septic shock Note: Final diagnosis: (6) Coagulopathy Note: Final diagnosis: (7) Peripheral arterial disease Note: Final diagnosis: (8) Acute respiratory failure with hypoxia Note: Final diagnosis: (9) Cardiopulmonary arrest Note: Final diagnosis: (10) NSTEMI (non-ST elevated myocardial infarction) Note: Final diagnosis: (11) NSVT (nonsustained ventricular tachycardia) Note: Final diagnosis:
== END 2020-04-17 14:50 | DRG 270 ==
LOC: ED 15:10 → CC1 20:23 → 4A 03-23 21:02 → CC1 04-11 15:28
PROVIDERS: ADMIT Internal Medicine Geriatric Medicine; ATTEND Internal Medicine
PROC: 0KNT0ZZ Release Left Lower Leg Muscle, Open Approach (ICD-10-PCS; principal; 2020-03-19)
PROC: 047N34Z Dilation of Left Popliteal Artery with Drug-eluting Intraluminal Device, Percutaneous Approach (ICD-10-PCS; 2020-03-19)
PROC: 04CL3ZZ Extirpation of Matter from Left Femoral Artery, Percutaneous Approach (ICD-10-PCS; 2020-03-19)
PROC: 0BH17EZ Insertion of Endotracheal Airway into Trachea, Via Natural or Artificial Opening (ICD-10-PCS; 2020-03-19)
PROC: 5A1955Z Respiratory Ventilation, Greater than 96 Consecutive Hours (ICD-10-PCS; 2020-03-19)
PROC: 047L34Z Dilation of Left Femoral Artery with Drug-eluting Intraluminal Device, Percutaneous Approach (ICD-10-PCS; 2020-03-19)
PROC: 04CN3ZZ Extirpation of Matter from Left Popliteal Artery, Percutaneous Approach (ICD-10-PCS; 2020-03-19)
PROC: 04CQ3ZZ Extirpation of Matter from Left Anterior Tibial Artery, Percutaneous Approach (ICD-10-PCS; 2020-03-19)
PROC: 04CU3ZZ Extirpation of Matter from Left Peroneal Artery, Percutaneous Approach (ICD-10-PCS; 2020-03-19)
PROC: 04CS3ZZ Extirpation of Matter from Left Posterior Tibial Artery, Percutaneous Approach (ICD-10-PCS; 2020-03-19)
PROC: 04CW3ZZ Extirpation of Matter from Left Foot Artery, Percutaneous Approach (ICD-10-PCS; 2020-03-19)
PROC: B41J1ZZ Fluoroscopy of Other Lower Arteries using Low Osmolar Contrast (ICD-10-PCS; 2020-03-19)
PROC: 3E05317 Introduction of Other Thrombolytic into Peripheral Artery, Percutaneous Approach (ICD-10-PCS; 2020-03-19)
PROC: 3E05317 Introduction of Other Thrombolytic into Peripheral Artery, Percutaneous Approach (ICD-10-PCS; 2020-03-19)
PROC: 4A033R1 Measurement of Arterial Saturation, Peripheral, Percutaneous Approach (ICD-10-PCS; 2020-03-19)
PROC: B41D1ZZ Fluoroscopy of Aorta and Bilateral Lower Extremity Arteries using Low Osmolar Contrast (ICD-10-PCS; 2020-03-19)
PROC: 0Y6J0Z1 Detachment at Left Lower Leg, High, Open Approach (ICD-10-PCS; 2020-03-25)
PROC: 5A09457 Assistance with Respiratory Ventilation, 24-96 Consecutive Hours, Continuous Positive Airway Pressure (ICD-10-PCS; 2020-04-13)
DX: I70.202 Unspecified atherosclerosis of native arteries of extremities, left leg (principal); I21.4 Non-ST elevation (NSTEMI) myocardial infarction; I50.21 Acute systolic (congestive) heart failure; J96.01 Acute respiratory failure with hypoxia; A41.9 Sepsis, unspecified organism; N17.0 Acute kidney failure with tubular necrosis; I63.9 Cerebral infarction, unspecified; G93.41 Metabolic encephalopathy; R65.21 Severe sepsis with septic shock; G93.1 Anoxic brain damage, not elsewhere classified; I47.2 Ventricular tachycardia; T87.44 Infection of amputation stump, left lower extremity; I42.9 Cardiomyopathy, unspecified; E11.65 Type 2 diabetes mellitus with hyperglycemia; F17.200 Nicotine dependence, unspecified, uncomplicated; E78.5 Hyperlipidemia, unspecified; E11.51 Type 2 diabetes mellitus with diabetic peripheral angiopathy without gangrene; G47.33 Obstructive sleep apnea (adult) (pediatric); J44.9 Chronic obstructive pulmonary disease, unspecified; I99.8 Other disorder of circulatory system; E66.01 Morbid (severe) obesity due to excess calories; G47.00 Insomnia, unspecified; I11.0 Hypertensive heart disease with heart failure; E87.5 Hyperkalemia; I95.9 Hypotension, unspecified; I46.9 Cardiac arrest, cause unspecified; Y83.8 Other surgical procedures as the cause of abnormal reaction of the patient, or of later complication, without mention of misadventure at the time of the procedure; D64.9 Anemia, unspecified; D72.829 Elevated white blood cell count, unspecified; Z79.4 Long term (current) use of insulin; Z79.899 Other long term (current) drug therapy; Z79.84 Long term (current) use of oral hypoglycemic drugs; Z89.421 Acquired absence of other right toe(s); Z95.1 Presence of aortocoronary bypass graft; Z79.82 Long term (current) use of aspirin; Z86.718 Personal history of other venous thrombosis and embolism; Z79.01 Long term (current) use of anticoagulants; Y92.89 Other specified places as the place of occurrence of the external cause
CPT/HCPCS: 36415; 36600; 37184; 37185; 37226; 70450; 70544; 70547; 70551; 71045; 74018; 74176; 75635; 75716; 76604; 76700; 76937; 78601; 80048; 80053; 80061; 80202; 81001; 82140; 82550; 82553; 82570; 82728; 82803; 82962; 83036; 83735; 84100; 84300; 84484; 85007; 85014; 85018; 85025; 85027; 85049; 85520; 85610; 85730; 86706; 86803; 86850; 86900; 86901; 86920; 87070; 87076; 87086; 87116; 87186; 87205; 88307; 88311; 89050; 93005; 93306; 93880; 94002; 94003; 94640; 94660; 94760; G0378; A9270-GY; A9512; C1757; C1760; C1769; C1876; C1884; C1887; C2623; C9113; J0282; J0295; J0330; J0610; J0690; J0692; J1170; J1644; J1650; J1815; J1940; J2001; J2060; J2250; J2270; J2370; J2405; J2543; J2704; J2710; J2997; J3010; J3370; J7030; J7040; J7050; J7060; J7120; P9045; Q9967; U0003-CS